=== PATIENT | male | born 1950 | race Caucasian/White ===

== ENCOUNTER → 2016-12-07 | Outpatient (CLI) | payer MEDICARE, OTHER ==
[2016-12-07 08:23] LABS: ALT 22 U/L (21-72); AST 16 U/L (17-59); Alkaline Phosphatase 70 U/L (38-126); Anion Gap 9 mmol/L; Blood Urea Nitrogen 15 mg/dL (9-20); Calcium 9.3 mg/dL (8.4-10.2); Carbon Dioxide 31 mmol/L (22-30); Chloride 101 mmol/L (98-107); Cholesterol 160 mg/dL (<200); Glucose 100 mg/dL (74-99); HDL Cholesterol 44 mg/dL (40-60); Non-African American GFR(MDRD) >60 (>60 ml/min/1.73 sqM); Potassium 4.8 mmol/L (3.5-5.1); Sodium 141 mmol/L (137-145); Total Bilirubin 0.6 mg/dL (0.2-1.3); Total Protein 6.9 g/dL (6.3-8.2); Triglycerides 87 mg/dL (<150)
== END | disposition home or self-care (01) ==
LOC: LABWHC1 07:49
PROVIDERS: ATTEND Internal Medicine Interventional Cardiology
DX: E78.2 Mixed hyperlipidemia (principal)
CPT/HCPCS: 36415; 80053; 80061

== ENCOUNTER 2017-02-20 09:02 | Inpatient (IN) | payer MEDICARE, OTHER ==
[2017-02-20] MEDS ORDERED: DEXAMETHASONE SOD PHOSPHATE 10 MG/ML 1 ML VIAL IV STA (09:08)
[2017-02-20 09:32] LABS: Basophils # (A) 0.1 k/uL (0-0.2); Basophils % (A) 1 %; CH 29.1; CHCM 34.5; Eosinophils # (A) 0.3 k/uL (0-0.7); Eosinophils % (A) 4 %; HDW 2.67; HGB 15.9 gm/dL (13.0-17.5); Luc # (Auto) 0.15; Luc % (Auto) 2; Lymphocytes % (A) 16 %; MCH 29.2 pg (25.0-35.0); MCHC 34.6 g/dL (31.0-37.0); MCV 84.5 fL (80.0-100.0); Mean Platelet Volume 7.1; Monocytes # (A) 0.5 k/uL (0-1.0); Monocytes % (A) 8 %; Neutrophils # (A) 4.4 k/uL (1.3-7.7); Neutrophils % (A) 69 %; RBC 5.44 m/uL (4.30-5.90); RDW 13.4 % (11.5-15.5); WBC 6.4 k/uL (3.8-10.6); WBC (Perox) 5.88
[2017-02-20 09:42] LABS: Partial Thromboplastin Time 23.2 sec (22.0-30.0); Prothrombin Time 10.6 sec (9.0-12.0)
[2017-02-20 09:45] LABS: ALT 29 U/L (21-72); AST 17 U/L (17-59); Alkaline Phosphatase 76 U/L (38-126); Anion Gap 9 mmol/L; Blood Urea Nitrogen 10 mg/dL (9-20); Calcium 8.7 mg/dL (8.4-10.2); Carbon Dioxide 24 mmol/L (22-30); Chloride 104 mmol/L (98-107); Glucose 103 mg/dL (74-99); Magnesium 1.7 mg/dL (1.6-2.3); Non-African American GFR(MDRD) >60 (>60 ml/min/1.73 sqM); Potassium 4.3 mmol/L (3.5-5.1); Sodium 137 mmol/L (137-145); Total Bilirubin 0.5 mg/dL (0.2-1.3); Total Protein 6.6 g/dL (6.3-8.2)
[2017-02-20 09:55] LABS: Creatine Kinase 89 U/L (55-170)
--- NOTE | 2017-02-20 09:55 | ED ---
General Adult HPI - General Stated complaint: Diff Breathing Time Seen by Provider: 02/20/17 09:07 Source: patient, EMS, RN notes reviewed - History of Present Illness Initial comments: 66-year-old male history of COPD, CAD, abdominal aortic aneurysm status post repair presents with episode of dyspnea. Patient does take breathing treatments at home every 4-6 hours. He had not taken his morning nebulized albuterol. The time of EMS arrival patient was diaphoretic, complaining of nausea and lightheadedness. Denied chest pain at that time. Patient was given nebulized albuterol and at the time of his arrival was feeling much better. No diaphoresis. No chest pain. Breathing had improved. Patient denies fever or chills. Cough is at baseline. No abdominal pain. No vomiting or diarrhea. Nausea has resolved. - Related Data Home Medications Medication Instructions Recorded Confirmed Albuterol Inhaler [Ventolin Hfa 2 puff INHALATION RT-Q4H PRN 03/02/16 02/20/17 Inhaler] Aspirin 81 mg PO DAILY 03/02/16 02/20/17 Atorvastatin [Lipitor] 40 mg PO HS 03/02/16 02/20/17 Budesonide-Formot 160-4.5 Mcg 2 puff INHALATION RT-DAILY 03/02/16 02/20/17 [Symbicort 160-4.5 Mcg Inhaler] Ipratropium-Albuterol Nebulize 3 ml INHALATION RT-QID PRN 02/20/17 02/20/17 [Duoneb 0.5 mg-3 mg/3 ml Soln] Lopressor (Unknown Dose) 1 tab PO BID 02/20/17 02/20/17 Allergies Allergy/AdvReac Type Severity Reaction Status Date / Time Penicillins Allergy Rash/Hives Verified 02/20/17 09:35 Review of Systems ROS Statement: Those systems with pertinent positive or pertinent negative responses have been documented in the HPI. ROS Other: All systems not noted in ROS Statement are negative. Past Medical History Past Medical History: Asthma, COPD, Hypertension, Renal Disease Additional Past Medical History / Comment(s): Since March 2015, patient has had generalized body rash, intermittent facial and bilateral leg swelling, which is itchy and painful (has caused insomnia). Patient states Dr. Goins believes it to be an auto-immune problem. Other HX: kidney stones. 5.1cm aortic aneurysm, L eardrum hole with drainage at times. History of Any Multi-Drug Resistant Organisms: None Reported Past Surgical History: Appendectomy, Ear Surgery, Heart Catheterization, Hernia Repair Additional Past Surgical History / Comment(s): Facial reconstructive surgery. L ear surgery. Umbilical hernia. Colonoscopy-benign polypectomy. Past Anesthesia/Blood Transfusion Reactions: No Reported Reaction Additional Past Anesthesia/Blood Transfusion Reaction / Comment(s): Pt has never recieved blood. Past Psychological History: No Psychological Hx Reported Additional Psychological History / Comment(s): Pt resides with his spouse. He is normally independent. He has a nebulizer at home. He drives. Smoking Status: Current every day smoker Past Alcohol Use History: Occasional Additional Past Alcohol Use History / Comment(s): Pt states he is a ppd smoker and started at age 11 yrs. Past Drug Use History: None Reported - Past Family History Father Family Medical History: Myocardial Infarction ([place]) Additional Family Medical History / Comment(s): Father at age 75 yrs of a [place] Mother Family Medical History: Cancer Additional Family Medical History / Comment(s): Mother of metastatic cancer (unknown primary) at age 42 yrs. General Exam Limitations: no limitations General appearance: alert, in no apparent distress Head exam: Present: atraumatic, normocephalic Eye exam: Present: normal appearance, PERRL ENT exam: Present: mucous membranes dry Neck exam: Present: normal inspection. Absent: tenderness, meningismus Respiratory exam: Present: decreased breath sounds, prolonged expiratory Cardiovascular Exam: Present: regular rate, normal rhythm GI/Abdominal exam: Present: soft. Absent: distended, tenderness Extremities exam: Present: normal inspection, normal capillary refill, other ( DP pulses 2+ bilaterally). Absent: pedal edema Back exam: Present: normal inspection, full ROM Neurological exam: Present: alert, oriented X3. Absent: motor sensory deficit Psychiatric exam: Present: normal affect, normal mood Skin exam: Present: warm, dry, intact. Absent: cyanosis, diaphoretic Course Vital Signs 02/20/17 02/20/17 02/20/17 09:13 09:44 11:08 Temperature 97.0 F L Pulse Rate 69 72 Respiratory 18 18 Rate Blood Pressure 157/90 137/82 O2 Sat by Pulse 94 L 92 L Oximetry - Reevaluation(s) Reevaluation #1: 02/20/17 11:12 On examination after nebulized albuterol and Atrovent patient has diminished breath sounds bilaterally with an expiratory wheeze. Pulse ox 90% on 3 L EKG Findings - EKG Comments: EKG Findings:: EKG shows normal sinus rhythm, prolonged QT, ventricular rate of 62, [place] 148, QRS duration 86, QTC 481 which is prolonged no signs of ischemia Medical Decision Making - Medical Decision Making 66-year-old male history COPD presents with dyspnea, and cough. Patient has minimal air entry on initial evaluation. This improves with albuterol and Atrovent. Patient is approximately 90% on 3 L after treatment. He is given steroids. Will be admitted for further treatment and COPD. Chest x-ray shows no focal pneumonia. Diagnosis: COPD with hypoxia - Lab Data Result diagrams: 02/20/17 09:21 02/20/17 09:21 Lab Results 02/20/17 02/20/17 02/20/17 Range/Units 09:21 09:21 09:21 WBC 6.4 (3.8-10.6) k/uL RBC 5.44 (4.30-5.90) m/uL Hgb 15.9 (13.0-17.5) gm/dL Hct 46.0 (39.0-53.0) % MCV 84.5 (80.0-100.0) fL MCH 29.2 (25.0-35.0) pg MCHC 34.6 (31.0-37.0) g/dL RDW 13.4 (11.5-15.5) % Plt Count 232 (150-450) k/uL Neutrophils % 69 % Lymphocytes % 16 % Monocytes % 8 % Eosinophils % 4 % Basophils % 1 % Neutrophils # 4.4 (1.3-7.7) k/uL Lymphocytes # 1.0 (1.0-4.8) k/uL Monocytes # 0.5 (0-1.0) k/uL Eosinophils # 0.3 (0-0.7) k/uL Basophils # 0.1 (0-0.2) k/uL PT (9.0-12.0) sec INR (<1.2) APTT (22.0-30.0) sec Sodium 137 (137-145) mmol/L Potassium 4.3 (3.5-5.1) mmol/L Chloride 104 (98-107) mmol/L Carbon Dioxide 24 (22-30) mmol/L Anion Gap 9 mmol/L BUN 10 (9-20) mg/dL Creatinine 0.85 (0.66-1.25) mg/dL Est GFR (MDRD) Af Amer >60 (>60 ml/min/1.73 sqM) Est GFR (MDRD) Non-Af >60 (>60 ml/min/1.73 sqM) Glucose 103 H (74-99) mg/dL Calcium 8.7 (8.4-10.2) mg/dL Magnesium 1.7 (1.6-2.3) mg/dL Total Bilirubin 0.5 (0.2-1.3) mg/dL AST 17 (17-59) U/L ALT 29 (21-72) U/L Alkaline Phosphatase 76 (38-126) U/L Total Creatine Kinase 89 (55-170) U/L CK-MB (CK-2) 1.3 (0.0-2.4) ng/mL CK-MB (CK-2) Rel Index 1.5 Troponin I <0.012 (0.000-0.034) ng/mL NT-Pro-B Natriuret Pep pg/mL Total Protein 6.6 (6.3-8.2) g/dL Albumin 3.9 (3.5-5.0) g/dL 02/20/17 02/20/17 Range/Units 09:21 09:21 WBC (3.8-10.6) k/uL RBC (4.30-5.90) m/uL Hgb (13.0-17.5) gm/dL Hct (39.0-53.0) % MCV (80.0-100.0) fL MCH (25.0-35.0) pg MCHC (31.0-37.0) g/dL RDW (11.5-15.5) % Plt Count (150-450) k/uL Neutrophils % % Lymphocytes % % Monocytes % % Eosinophils % % Basophils % % Neutrophils # (1.3-7.7) k/uL Lymphocytes # (1.0-4.8) k/uL Monocytes # (0-1.0) k/uL Eosinophils # (0-0.7) k/uL Basophils # (0-0.2) k/uL PT 10.6 (9.0-12.0) sec INR 1.0 (<1.2) APTT 23.2 (22.0-30.0) sec Sodium (137-145) mmol/L Potassium (3.5-5.1) mmol/L Chloride (98-107) mmol/L Carbon Dioxide (22-30) mmol/L Anion Gap mmol/L BUN (9-20) mg/dL Creatinine (0.66-1.25) mg/dL Est GFR (MDRD) Af Amer (>60 ml/min/1.73 sqM) Est GFR (MDRD) Non-Af (>60 ml/min/1.73 sqM) Glucose (74-99) mg/dL Calcium (8.4-10.2) mg/dL Magnesium (1.6-2.3) mg/dL Total Bilirubin (0.2-1.3) mg/dL AST (17-59) U/L ALT (21-72) U/L Alkaline Phosphatase (38-126) U/L Total Creatine Kinase (55-170) U/L CK-MB (CK-2) (0.0-2.4) ng/mL CK-MB (CK-2) Rel Index Troponin I (0.000-0.034) ng/mL NT-Pro-B Natriuret Pep 519 pg/mL Total Protein (6.3-8.2) g/dL Albumin (3.5-5.0) g/dL Disposition Clinical Impression: Acute exacerbation of chronic obstructive airways disease Disposition: ADMITTED IP TO THIS HOSP Condition: Stable Referrals: Ashok Rodriguez MD [Primary Care Provider] - 1-2 days Time of Disposition: 11:14 Decision to Admit Reason: Admit from EC Decision Date: 02/20/17 Decision Time: 11:14
[2017-02-20 10:08] LABS: Creatine Kinase MB 1.3 ng/mL (0.0-2.4); Troponin I <0.012 ng/mL (0.000-0.034)
--- NOTE | 2017-02-20 10:11 | XR ---
EXAMINATION TYPE: XR chest 2V DATE OF EXAM: 02/20/2017 COMPARISON: 04/08/2016 HISTORY: Shortness of breath TECHNIQUE: Frontal and lateral views of the chest are obtained. FINDINGS: Scattered senescent parenchymal changes noted. Hyperinflation compatible with COPD. No evidence for infiltrate. No evidence for atelectasis. Heart size is stable. Mediastinal structures are stable and grossly unremarkable. No evidence for hilar prominence. Degenerative changes dorsal spine. IMPRESSION: 1. No evidence for acute pulmonary disease.
[2017-02-20] MEDS ORDERED: IPRATROPIUM-ALBUTEROL 3 ML NEB INHALATION PRN (11:15)
[2017-02-20] MEDS ORDERED: LEVOFLOXACIN 500 MG TAB PO SCH (12:00)
[2017-02-20] MEDS ORDERED: ASPIRIN 325 MG TAB PO SCH (12:15)
[2017-02-20 13:54] LABS: Appearance,Urine Clear (Clear); Bilirubin,Urine Negative (Negative); Glucose,Urine (UA) Negative (Negative); Ketones,Urine Negative (Negative); Leukocyte Esterase,Urine Negative (Negative); Nitrite,Urine Negative (Negative); Protein,Urine Negative (Negative); Specific Gravity,Urine 1.008 (1.001-1.035); UA Billing (MACRO vs. MICRO) CHEM; Urobilinogen,Urine <2.0 mg/dL (<2.0)
--- NOTE | 2017-02-20 15:23 | P.CRDCN ---
History of Present Illness Consult date: 02/20/17 History of present illness: This is a 66-year-old pleasant male. Past medical history significant for abdominal aortic aneurysm status post repair, COPD, essential hypertension, dyslipidemia, CAD mild triple vessel disease that is being managed medically. The patient follows regularly with Dr. Jack as an outpatient. He was last seen in the office in December 2016. Patient presents with complaints of dizziness, diaphoresis, nausea and shortness of breath. He states last night he became acutely dizzy and diaphoretic he had distant from the fan this lasted for approximately half an hour. The symptoms went away on its own with no specific alleviating factors. He denies any associated chest pain, arm pain, neck pain or back pain. The symptoms have not recurred since he's been in the hospital. He was recently started on albuterol and amlodipine. EKG done shows sinus mechanism with PVC's, bigeminy with no T-wave abnormality. When compared with old EKG this appears new. Troponins are normal x 1. Chest x-ray showed negative for any acute cardiopulmonary. Most recent echo dated 03/02/2016 indicates low-normal EF 50-55%. Review of Systems Extensive review of systems performed, negative except mentioned in HPI. Past Medical History Past Medical History: Asthma, COPD, Hyperlipidemia, Hypertension, Renal Disease Additional Past Medical History / Comment(s): Since March 2015, patient has had intermittent generalized body rash, intermittent facial and bilateral leg swelling, which is itchy and painful (has caused insomnia). Patient states Dr. Goins believes it to be an auto-immune problem. Other HX: kidney stones. 5.1cm aortic aneurysm with repair, L eardrum hole with drainage at times, bilateral leg cramps at times. History of Any Multi-Drug Resistant Organisms: None Reported Past Surgical History: Appendectomy, Ear Surgery, Heart Catheterization, Hernia Repair Additional Past Surgical History / Comment(s): 06/2016 AAA repair. Facial reconstructive surgery. L ear surgery. Umbilical hernia. Colonoscopy-benign polypectomy. R cataract removed with lens. L eye had glass removed and lens placed. Past Anesthesia/Blood Transfusion Reactions: No Reported Reaction Additional Past Anesthesia/Blood Transfusion Reaction / Comment(s): Pt has never recieved blood. Smoking Status: Current every day smoker - Past Family History Father Family Medical History: Myocardial Infarction ([place]) Additional Family Medical History / Comment(s): Father at age 75 yrs of a [place] Mother Family Medical History: Cancer Additional Family Medical History / Comment(s): Mother of metastatic cancer (unknown primary) at age 42 yrs. Medications and Allergies Home Medications Medication Instructions Recorded Confirmed Type Albuterol Inhaler [Ventolin Hfa 2 puff INHALATION RT-Q4H PRN 03/02/16 02/20/17 History Inhaler] Aspirin 81 mg PO DAILY 03/02/16 02/20/17 History Atorvastatin [Lipitor] 40 mg PO HS 03/02/16 02/20/17 History Budesonide-Formot 160-4.5 Mcg 2 puff INHALATION RT-DAILY 03/02/16 02/20/17 History [Symbicort 160-4.5 Mcg Inhaler] Ipratropium-Albuterol Nebulize 3 ml INHALATION RT-QID PRN 02/20/17 02/20/17 History [Duoneb 0.5 mg-3 mg/3 ml Soln] Lopressor (Unknown Dose) 1 tab PO BID 02/20/17 02/20/17 History Allergies Allergy/AdvReac Type Severity Reaction Status Date / Time Penicillins Allergy Rash/Hives Verified 02/20/17 09:35 Physical Exam Vitals: Vital Signs Temp Pulse Pulse Resp BP BP Pulse Ox 02/20/17 13:15 97.0 F L 74 18 118/91 93 L 02/20/17 12:04 96.8 F L 72 16 130/62 93 L 02/20/17 11:08 72 18 137/82 92 L 02/20/17 09:44 69 18 157/90 94 L 02/20/17 09:13 97.0 F L Intake and Output 02/19/17 02/20/17 02/20/17 22:59 06:59 14:59 Intake Total 118 Balance 118 Intake: Oral 118 Other: # Voids 3 Weight 92.986 kg Patient Weight 02/21/17 06:59 Weight 92.986 kg GENERAL: This is a 66-year-old male in no apparent distress at the time of my examination. HEENT: Head is atraumatic, normocephalic. Pupils are equal, round. Sclerae anicteric. Conjunctivae are clear. Mucous membranes of the mouth are moist. Neck is supple. There is no jugular venous distention. No carotid bruit is heard. LUNGS: Clear to auscultation no wheezes, rales or rhonchi. No chest wall tenderness is noted on palpation or with deep breathing. HEART: Regular rate and rhythm without murmurs, rubs or gallops. S1 and S2 heard. Muffled. ABDOMEN: Soft, nontender. Bowel sounds are heard. No organomegaly noted. EXTREMITIES: 2+ peripheral pulses with no evidence of peripheral edema and no calf tenderness noted. NEUROLOGIC: Patient is awake, alert and oriented x3. Results 02/20/17 09:21 02/20/17 09:21 Cardiac Enzymes 02/20/17 02/20/17 Range/Units 09:21 09:21 AST 17 (17-59) U/L CK-MB (CK-2) 1.3 (0.0-2.4) ng/mL Troponin I <0.012 (0.000-0.034) ng/mL Coagulation 02/20/17 Range/Units 09:21 PT 10.6 (9.0-12.0) sec APTT 23.2 (22.0-30.0) sec CBC 02/20/17 Range/Units 09:21 WBC 6.4 (3.8-10.6) k/uL RBC 5.44 (4.30-5.90) m/uL Hgb 15.9 (13.0-17.5) gm/dL Hct 46.0 (39.0-53.0) % Plt Count 232 (150-450) k/uL Comprehensive Metabolic Panel 02/20/17 Range/Units 09:21 Sodium 137 (137-145) mmol/L Potassium 4.3 (3.5-5.1) mmol/L Chloride 104 (98-107) mmol/L Carbon Dioxide 24 (22-30) mmol/L BUN 10 (9-20) mg/dL Creatinine 0.85 (0.66-1.25) mg/dL Glucose 103 H (74-99) mg/dL Calcium 8.7 (8.4-10.2) mg/dL AST 17 (17-59) U/L ALT 29 (21-72) U/L Alkaline Phosphatase 76 (38-126) U/L Total Protein 6.6 (6.3-8.2) g/dL Albumin 3.9 (3.5-5.0) g/dL Current Medications Generic Name Dose Route Start Last Admin Trade Name Freq PRN Reason Stop Dose Admin Albuterol/Ipratropium 3 ml 02/20/17 11:15 Duoneb 0.5 Mg-3 Mg/3 Ml Soln INHALATION RT-Q4H PRN Shortness Of Breath Or Wheezing Aspirin 325 mg 02/20/17 12:15 02/20/17 12:24 Aspirin PO 325 mg DAILY RAF Administration Levofloxacin 500 mg 02/20/17 12:00 02/20/17 12:25 Levaquin PO 02/27/17 12:01 500 mg Q24H RAF Administration Prednisone 40 mg 02/21/17 09:00 PO DAILY RAF Intake and Output 02/19/17 02/20/17 02/20/17 22:59 06:59 14:59 Intake Total 118 Balance 118 Intake: Oral 118 Other: # Voids 3 Weight 92.986 kg Patient Weight 02/21/17 06:59 Weight 92.986 kg 02/20/17 09:21 02/20/17 09:21 Assessment and Plan Plan: ASSESSMENT 1. Chronic stable CAD 2. Bigeminal PVCs 3. Chronic tobacco abuse 4. Abdominal aortic aneurysm status post repair 5. Dyslipidemia PLAN Continue with telemetry monitoring to assess for any new arrhythmia. Check serial troponins and EKG to rule out acute coronary event. Obtain 2D echocardiogram to assess LV function and cardiac structure. Further recommendations will be based upon clinical course. Thank you kindly for this consultation. Nurse Practitioner note has been reviewed, I agree with a documented findings and plan of care. Patient was seen and examined.
[2017-02-20] MEDS: amLODIPine 5 MG TAB PO SCH (16:00)
[2017-02-20 16:20] LABS: Creatine Kinase 78 U/L (55-170)
[2017-02-20 16:33] LABS: Creatine Kinase MB 1.3 ng/mL (0.0-2.4); Troponin I <0.012 ng/mL (0.000-0.034)
[2017-02-20] MEDS ORDERED: NITROGLYCERIN SL TABS 0.4 MG TAB SUBLINGUAL ONE (18:13)
[2017-02-20] MEDS ORDERED: NICOTINE POLACRILEX 2 MG GUM BUCCAL PRN (19:03)
[2017-02-20] MEDS ORDERED: RX INFO: IV CONTRAST WAS GIVEN 1 EACH MISC MISCELLANE PRN (19:04)
[2017-02-20] MEDS: BUDESONIDE 1 MG/2 ML NEBU INHALATION SCH (20:03)
[2017-02-20] MEDS: IPRATROPIUM-ALBUTEROL 3 ML NEB INHALATION SCH ×2 (20:03)
[2017-02-20] MEDS: methylPREDNISolone SOD SUCCI 40 MG/ML 1 ML VIAL IV SCH (20:23)
[2017-02-20] MEDS: NICOTINE 7MG/24HR PATCH TRANSDERM SCH (20:23)
[2017-02-20] MEDS: ATORVASTATIN 80 MG TAB PO SCH (20:23)
--- NOTE | 2017-02-20 20:36 | CT ---
EXAMINATION TYPE: CT angio chest DATE OF EXAM: 02/20/2017 7:53 PM COMPARISON: 03/02/2016 CT HISTORY: Shortness of breath CT DLP: 434.8 mGycm. Automated exposure control for dose reduction was used. CONTRAST: CTA scan of the thorax is performed with IV Contrast, patient injected with 100 mL of Omnip aque 350, pulmonary embolism protocol. . FINDINGS: AIRWAYS/LUNGS: The lungs are grossly clear, there is no concerning parenchymal mass or nodule identif ied. The tracheobronchial tree is patent. MEDIASTINUM/PLEURA: There is satisfactory enhancement of the pulmonary artery and its branches, there is no CT evidence for pulmonary embolism. The ascending aortic caliber is top normal in dimension. R elatively small hiatal hernia noted. There are no greater than 1 cm hilar or mediastinal lymph nodes. There is no cardiomegaly, but there are prominent coronary calcifications. No pericardial effusion i s seen. There is no pleural effusion or pneumothorax seen. OTHER: The previously seen renal and splenic findings are redemonstrated without interval change. IMPRESSION: 1. NEGATIVE FOR PULMONARY EMBOLISM; NO ACUTE PROCESS. 2. PROMINENT CORONARY CALCIFICATIONS NOTED.
[2017-02-20] MEDS ORDERED: ATORVASTATIN 40 MG TAB PO SCH (21:00)
--- NOTE | 2017-02-20 21:34 | HP ---
HISTORY AND PHYSICAL DATE OF ADMISSION: 02/20/2017 PRESENTING COMPLAINT: Short of breath. HISTORY OF PRESENTING COMPLAINT: This is a 66-year-old patient of Dr. Rodriguez. His chronic stable medical conditions include leg cramps, hypertension, heart disease, abdominal aortic repair. This patient is a smoker. The patient in the early hours of this morning was going to the bathroom and suddenly became dizzy, started pouring sweat, became short of breath. He could not catch his breath. He denied any obvious edema. No swelling of the legs. Admitted for the same. The patient may have had some slight wheezing. The patient did have a cardiac catheterization in May [address] Jack and was found to have minimal triple-vessel disease. The patient in the meantime has continued to smoke. He had another episode this evening of perspiring and feeling tight in the chest. REVIEW OF SYSTEMS: CONSTITUTIONAL: Tired. HEENT: None. RESPIRATORY: As above. CARDIOVASCULAR: As above. GASTROINTESTINAL: Some heartburn. GENITOURINARY: None. MUSCULOSKELETAL: None. DERMATOLOGICAL: None. HEMATOLOGICAL: None. LYMPHATICS: None. PSYCHIATRY: None. NEUROLOGICAL: None. PAST HISTORY: 1. COPD. 2. Abdominal aortic aneurysm, 5.1 cm, repaired. 3. Hypertensive heart disease. 4. Leg cramps. 5. Episodes of swelling of the hands with some rash, felt to be autoimmune by Dr. Goins. PAST SURGICAL HISTORY: 1. Appendectomy. 2. Ear surgery. 3. Cardiac catheterization. 4. Hernia repair. 5. AAA repair. 6. Facial reconstructive surgery. 7. Left ear surgery. 8. Umbilical hernia repair. 9. Colonoscopy with polypectomy. 10.Right cataract removed. SOCIAL HISTORY: . Has been smoking over 55 years, now down to 5 cigarettes a day. 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 Alcohol occasionally. FAMILY HISTORY: Father of a heart attack at age of 75. HOME MEDICATIONS: 1. Lopressor 1 tablet p.o. b.i.d. 2. DuoNeb q.i.d. p.r.n. 3. Ventolin HFA 2 puffs q.4 p.r.n. 4. Symbicort 160/4.5 two puffs daily. 5. Lipitor 40 mg at bedtime. ALLERGIES: PENICILLIN. PHYSICAL EXAMINATION: Temperature 96.8, pulse 80, respiratory rate 18, blood pressure 142/86, pulse ox 89% on 2 L. GENERAL APPEARANCE: Average build. Sitting up. Tired-appearing. EYES: Pupils equal. Conjunctivae normal. HEENT: Oral cavity normal. NECK: JVD not raised. Mass not palpable. RESPIRATORY: Effort increased . LUNGS: Diminished breath sounds. Prolonged expiration and wheezing. CARDIOVASCULAR: First and second sounds normal. No edema. ABDOMEN: Soft, nontender. Liver and spleen not palpable. LYMPHATIC: No lymph node palpable in neck or axillae. PSYCHIATRY: Alert and oriented x3. Mood and affect normal. NEUROLOGICAL: Pupils equal. Cranial nerves grossly intact. Power and sensation grossly intact. INVESTIGATIONS: White count 6.4, hemoglobin 15.9, potassium 4.3. BUN and creatinine are normal. Troponin x2 negative. ProBNP is 519. EKG shows some prolonged QT interval. Chest x-ray shows nil acute. ASSESSMENT: 1. Episode of acute shortness of breath with bouts of perspiration. Need still to rule out a cardiac cause. It well could be angina manifestation in a patient whose risk factors include smoking, though patient did have a cardiac catheterization about 2 years ago that showed minimal disease. 2. Acute chronic obstructive pulmonary disease exacerbation in a current smoker. 3. Chronic nicotine dependence. Patient is a smoker. 4. Hypertensive heart disease. 5. PLAN: Patient is started on nebulized bronchodilators, IV steroids, nebulized steroids, given a nicotine patch. Cardiology was consulted. Serial cardiac enzymes are in place. Will order a 2-D echocardiogram to look for any wall motion abnormality. If troponins are negative, will need at least a stress test. Care was discussed with the patient. MMODL / IJN: [id number] /
[2017-02-20 22:22] LABS: Creatine Kinase 68 U/L (55-170)
[2017-02-20 22:35] LABS: Creatine Kinase MB 1.1 ng/mL (0.0-2.4); Troponin I <0.012 ng/mL (0.000-0.034)
[2017-02-21] MEDS: IPRATROPIUM-ALBUTEROL 3 ML NEB INHALATION SCH ×5 (00:04→19:19)
[2017-02-21] MEDS: methylPREDNISolone SOD SUCCI 40 MG/ML 1 ML VIAL IV SCH ×3 (00:28→17:03)
[2017-02-21 07:21] LABS: Glucose,Whole Blood 148 mg/dL (75-99)
[2017-02-21] MEDS: BUDESONIDE 1 MG/2 ML NEBU INHALATION SCH ×2 (07:59→19:19)
[2017-02-21] MEDS ORDERED: SYMBICORT 160-4.5 MCG INHALER INHALATION SCH (08:00)
[2017-02-21] MEDS ORDERED: LEVOFLOXACIN 500 MG TAB PO SCH (09:00)
[2017-02-21] MEDS ORDERED: predniSONE 20 MG TAB PO SCH (09:00)
[2017-02-21] MEDS: NICOTINE 7MG/24HR PATCH TRANSDERM SCH (09:11)
[2017-02-21] MEDS: ENOXAPARIN 40 MG/0.4 ML SYRINGE SQ SCH (09:11)
[2017-02-21] MEDS: ASPIRIN 81 MG PO SCH (09:11)
[2017-02-21] MEDS: amLODIPine 5 MG TAB PO SCH (09:11)
[2017-02-21] MEDS ORDERED: METOPROLOL SUCCINATE (ER) 50 MG TAB.ER.24H PO SCH (09:15)
--- NOTE | 2017-02-21 09:16 | P.CRDCN ---
History of Present Illness History of present illness: Patient presenting with feeling of dizziness and palpitations. Twelve-lead ECG showed left sided PVCs and ventricular bigeminal pattern. So far we have not documented any nonsustained ventricular tachycardia. Known coronary artery disease but mild triple vessel disease at that time in 2014 mild impaired LV systolic function and history of abdominal aortic aneurysm. He's had abdominal stenting. On this visit chest CT does not show any pulmonary embolism coronary calcifications noted consistent with his history of coronary artery disease Twelve-lead ECG shows sinus rhythm with right bundle PVCs that are upright in all precordial leads No documented any nonsustained or sustained ventricular tachycardia Vitals are stable blood pressure 129/60 mmHg pulse rate is normal afebrile Breath sounds are reduced bilaterally Normal white count, normal troponins 3 normal BNP, normal electrolytes Suggest TSH level 2-D echo and Doppler study to assess cardiac structure and function Start metoprolol and maximize Consider exercise stress testing to look for exercise induced arrhythmias I will start metoprolol succinate 50 mrem by mouth daily starting today Outpatient event monitoring Past Medical History Past Medical History: Asthma, COPD, Hyperlipidemia, Hypertension, Renal Disease Additional Past Medical History / Comment(s): Since March 2015, patient has had intermittent generalized body rash, intermittent facial and bilateral leg swelling, which is itchy and painful (has caused insomnia). Patient states Dr. Goins believes it to be an auto-immune problem. Other HX: kidney stones. 5.1cm aortic aneurysm with repair, L eardrum hole with drainage at times, bilateral leg cramps at times. History of Any Multi-Drug Resistant Organisms: None Reported Past Surgical History: Appendectomy, Ear Surgery, Heart Catheterization, Hernia Repair Additional Past Surgical History / Comment(s): 06/2016 AAA repair. Facial reconstructive surgery. L ear surgery. Umbilical hernia. Colonoscopy-benign polypectomy. R cataract removed with lens. L eye had glass removed and lens placed. Past Anesthesia/Blood Transfusion Reactions: No Reported Reaction Additional Past Anesthesia/Blood Transfusion Reaction / Comment(s): Pt has never recieved blood. Smoking Status: Current every day smoker - Past Family History Father Family Medical History: Myocardial Infarction (WA) Additional Family Medical History / Comment(s): Father at age 75 yrs of a [place] Mother Family Medical History: Cancer Additional Family Medical History / Comment(s): Mother of metastatic cancer (unknown primary) at age 42 yrs. Medications and Allergies Home Medications Medication Instructions Recorded Confirmed Type Albuterol Inhaler [Ventolin Hfa 2 puff INHALATION RT-Q4H PRN 03/02/16 02/20/17 History Inhaler] Aspirin 81 mg PO DAILY 03/02/16 02/20/17 History Atorvastatin [Lipitor] 40 mg PO HS 03/02/16 02/20/17 History Budesonide-Formot 160-4.5 Mcg 2 puff INHALATION RT-DAILY 03/02/16 02/20/17 History [Symbicort 160-4.5 Mcg Inhaler] Ipratropium-Albuterol Nebulize 3 ml INHALATION RT-QID PRN 02/20/17 02/20/17 History [Duoneb 0.5 mg-3 mg/3 ml Soln] Lopressor (Unknown Dose) 1 tab PO BID 02/20/17 02/20/17 History Allergies Allergy/AdvReac Type Severity Reaction Status Date / Time Penicillins Allergy Rash/Hives Verified 02/20/17 09:35 Physical Exam Vitals: Vital Signs Temp Pulse Pulse Resp BP BP BP 02/21/17 08:17 76 02/21/17 07:59 74 02/21/17 07:00 97.0 F L 65 16 129/68 02/20/17 22:23 97.9 F 90 20 123/69 02/20/17 20:26 83 02/20/17 20:04 83 02/20/17 18:20 97.0 F L 82 22 124/87 02/20/17 16:08 77 02/20/17 15:58 77 02/20/17 14:45 02/20/17 14:40 96.8 F L 80 18 142/86 02/20/17 13:15 97.0 F L 74 18 118/91 02/20/17 12:04 96.8 F L 72 16 130/62 02/20/17 11:08 72 18 137/82 02/20/17 09:44 69 18 157/90 Pulse Ox 02/21/17 08:17 02/21/17 07:59 02/21/17 07:00 92 L 02/20/17 22:23 90 L 02/20/17 20:26 02/20/17 20:04 02/20/17 18:20 90 L 02/20/17 16:08 02/20/17 15:58 02/20/17 14:45 92 L 02/20/17 14:40 89 L 02/20/17 13:15 93 L 02/20/17 12:04 93 L 02/20/17 11:08 92 L 02/20/17 09:44 94 L Intake and Output 02/20/17 02/21/17 02/21/17 22:59 06:59 14:59 Intake Total 290 Balance 290 Intake: Oral 290 Other: # Voids 2 1 # Bowel Movements 0 Weight 89 kg Results 02/20/17 09:21 02/20/17 09:21 Cardiac Enzymes 02/20/17 02/20/17 02/20/17 Range/Units 09:21 09:21 15:56 AST 17 (17-59) U/L CK-MB (CK-2) 1.3 1.3 (0.0-2.4) ng/mL Troponin I <0.012 <0.012 (0.000-0.034) ng/mL 02/20/17 Range/Units 21:50 AST (17-59) U/L CK-MB (CK-2) 1.1 (0.0-2.4) ng/mL Troponin I <0.012 (0.000-0.034) ng/mL Coagulation 02/20/17 Range/Units 09:21 PT 10.6 (9.0-12.0) sec APTT 23.2 (22.0-30.0) sec CBC 02/20/17 Range/Units 09:21 WBC 6.4 (3.8-10.6) k/uL RBC 5.44 (4.30-5.90) m/uL Hgb 15.9 (13.0-17.5) gm/dL Hct 46.0 (39.0-53.0) % Plt Count 232 (150-450) k/uL Comprehensive Metabolic Panel 02/20/17 Range/Units 09:21 Sodium 137 (137-145) mmol/L Potassium 4.3 (3.5-5.1) mmol/L Chloride 104 (98-107) mmol/L Carbon Dioxide 24 (22-30) mmol/L BUN 10 (9-20) mg/dL Creatinine 0.85 (0.66-1.25) mg/dL Glucose 103 H (74-99) mg/dL Calcium 8.7 (8.4-10.2) mg/dL AST 17 (17-59) U/L ALT 29 (21-72) U/L Alkaline Phosphatase 76 (38-126) U/L Total Protein 6.6 (6.3-8.2) g/dL Albumin 3.9 (3.5-5.0) g/dL Current Medications Generic Name Dose Route Start Last Admin Trade Name Freq PRN Reason Stop Dose Admin Albuterol/Ipratropium 3 ml 02/20/17 11:15 02/20/17 15:55 Duoneb 0.5 Mg-3 Mg/3 Ml Soln INHALATION 3 ml RT-Q4H PRN Administration Shortness Of Breath Or Wheezing Albuterol/Ipratropium 3 ml 02/21/17 08:00 02/21/17 07:59 Duoneb 0.5 Mg-3 Mg/3 Ml Soln INHALATION 3 ml RT-QID RAF Administration Amlodipine Besylate 5 mg 02/20/17 15:30 02/21/17 09:11 Norvasc PO 5 mg DAILY RAF Administration Aspirin 81 mg 02/21/17 09:00 02/21/17 09:11 Aspirin PO 81 mg DAILY RAF Administration Atorvastatin Calcium 80 mg 02/20/17 21:00 02/20/17 20:23 Lipitor PO 80 mg HS RAF Administration Budesonide 1 mg 02/20/17 20:00 02/21/17 07:59 Pulmicort INHALATION 1 mg RT-BID RAF Administration Enoxaparin Sodium 40 mg 02/21/17 09:00 02/21/17 09:11 Lovenox SQ 40 mg DAILY RAF Administration Methylprednisolone Sodium Succinate 40 mg 02/20/17 19:00 02/21/17 09:11 Solu-Medrol IV 40 mg Q8HR RAF Administration Metoprolol Succinate 50 mg 02/21/17 09:15 Toprol Xl PO DAILY RAF Miscellaneous Information 1 each 02/20/17 19:04 Rx Info: Iv Contrast Was Given MISCELLANE 02/22/17 19:04 DAILY PRN Per Protocol Nicotine 1 patch 02/20/17 19:15 02/21/17 09:11 Habitrol 7mg/24hr Patch TRANSDERM 1 patch DAILY RAF Administration Nicotine Polacrilex 2 mg 02/20/17 19:03 Nicorette Gum BUCCAL Q4HR PRN Nicotine Cravings Intake and Output 02/20/17 02/21/17 02/21/17 22:59 06:59 14:59 Intake Total 290 Balance 290 Intake: Oral 290 Other: # Voids 2 1 # Bowel Movements 0 Weight 89 kg 02/20/17 09:21 02/20/17 09:21
[2017-02-21 09:21] LABS: Basophils % (A) 0 %; CH 29.2; CHCM 33.8; Eosinophils % (A) 0 %; HDW 2.53; HGB 16.3 gm/dL (13.0-17.5); Luc # (Auto) 0.04; Luc % (Auto) 0; Lymphocytes # (A) 0.7 k/uL (1.0-4.8); Lymphocytes % (A) 5 %; MCH 29.4 pg (25.0-35.0); MCHC 33.9 g/dL (31.0-37.0); MCV 86.7 fL (80.0-100.0); Mean Platelet Volume 7.3; Monocytes # (A) 0.4 k/uL (0-1.0); Monocytes % (A) 3 %; Neutrophils % (A) 91 %; RBC 5.54 m/uL (4.30-5.90); RDW 13.6 % (11.5-15.5); WBC 13.1 k/uL (3.8-10.6); WBC (Perox) 12.64
[2017-02-21 09:29] LABS: Anion Gap 9 mmol/L; Blood Urea Nitrogen 21 mg/dL (9-20); Calcium 9.2 mg/dL (8.4-10.2); Carbon Dioxide 24 mmol/L (22-30); Chloride 102 mmol/L (98-107); Glucose 220 mg/dL (74-99); Non-African American GFR(MDRD) >60 (>60 ml/min/1.73 sqM); Potassium 4.6 mmol/L (3.5-5.1); Sodium 135 mmol/L (137-145)
[2017-02-21 11:52] LABS: Glucose,Whole Blood 151 mg/dL (75-99)
--- NOTE | 2017-02-21 15:02 | P.PN ---
Progress Note - Text DATE OF SERVICE: 02/21/2017 PRESENTING COMPLAINT: Short of breath HISTORY OF PRESENT ILLNESS: 66-year-old patient who got up early in the morning to go to the bathroom and became suddenly dizzy started profusely sweating and became short of breath. Unable to catch his breath. History of cardiac catheterization in May [address] Jack, minimal triple-vessel disease. Continued to smoke. While being examined he had another episode of perspiring and feeling tight in the chest. INTERVAL HISTORY: 02/21/2017: Patient lying in bed appears comfortable, no further episodes of chest tightness or perspiring. Ambulatory in the room to and from the bathroom, tolerating his diet eating between 75-100% of his meals. Last BM prior to admission. REVIEW OF SYSTEMS: Done for constitutional ,cardiovascular, GI, pulmonary with relevant findings as above. CURRENT MEDICATIONS DuoNeb, Norvasc 5 mg by mouth daily, aspirin 81 mg by mouth daily, Lipitor 80 mg by mouth at bedtime, Solu-Medrol 40 mg IV every 8 hours, metoprolol 50 mg by mouth every 24 hours, nicotine patch. PHYSICAL EXAM VITAL SIGNS: Temperature 97.0, pulse 65, respiratory rate 16, blood pressure 129/68, oxygen saturation 92% on 3 L. GENERAL APPEARANCE: Lying in bed, not in distress. EYES: Pupils equal. Conjunctiva normal. NECK: JVD not raised. Mass not palpable. RESPIRATORY: Respiratory effort normal. Lungs diminished to auscultation. CARDIOVASCULAR: First and second sounds normal. No edema. ABDOMEN: Soft. Liver and spleen not palpable. No tenderness. No mass palpable. PSYCHIATRY: Alert and oriented x3. Mood and affect normal. INVESTIGATIONS: White blood cell count 13.1, sodium 135, potassium 4.6, BUN 21, creatinine 0.91 , Accu-Cheks noted. CTA chest: Negative for pulmonary embolism no acute process. ASSESSMENT: -Acute shortness of breath, rule out cardiac cause -Acute chronic obstructive pulmonary disease exacerbation in a current smoker. -Chronic nicotine dependence. Patient is a smoker. -Hypertensive heart disease. -Hyperthyroidism PLAN: Plan for 2-D echo and Doppler study metoprolol added and maximize medication therapy per cardiology, may need an exercise stress to rule out exercise- induced arrhythmia, outpatient event monitoring. Scars the plan of care with the patient the bedside he is in agreement. We'll continue to monitor closely. Discharge planning for the next 24-48 hours. RESOURCE COORDINATOR statement: Patient was seen and examined by nurse practitioner Dang Veliz and all elements of the case discussed with attending Dr. Fletcher
[2017-02-21 17:15] LABS: Glucose,Whole Blood 126 mg/dL (75-99)
[2017-02-21] MEDS: CALCIUM CARB-VIT D 500MG-200UN 1 EACH TAB PO SCH (20:35)
[2017-02-21] MEDS: ATORVASTATIN 80 MG TAB PO SCH (20:35)
[2017-02-21] MEDS: FAMOTIDINE 20 MG TAB PO SCH (20:35)
[2017-02-21 21:01] LABS: Glucose,Whole Blood 139 mg/dL (75-99)
[2017-02-22] MEDS: methylPREDNISolone SOD SUCCI 40 MG/ML 1 ML VIAL IV SCH ×3 (00:55→19:30)
[2017-02-22] MEDS ORDERED: METOPROLOL SUCCINATE (ER) 50 MG TAB.ER.24H PO SCH (06:00)
[2017-02-22 07:29] LABS: Glucose,Whole Blood 123 mg/dL (75-99)
[2017-02-22] MEDS: IPRATROPIUM-ALBUTEROL 3 ML NEB INHALATION SCH ×4 (08:24→19:39)
[2017-02-22] MEDS: BUDESONIDE 1 MG/2 ML NEBU INHALATION SCH ×2 (08:24→19:39)
[2017-02-22 09:15] LABS: Anion Gap 7 mmol/L; Blood Urea Nitrogen 36 mg/dL (9-20); Calcium 9.3 mg/dL (8.4-10.2); Carbon Dioxide 27 mmol/L (22-30); Chloride 103 mmol/L (98-107); Glucose 119 mg/dL (74-99); Non-African American GFR(MDRD) >60 (>60 ml/min/1.73 sqM); Potassium 5.9 mmol/L (3.5-5.1); Sodium 137 mmol/L (137-145)
[2017-02-22] MEDS ORDERED: METOPROLOL TARTRATE 5 MG/5 ML VIAL IVP ONE (10:12)
[2017-02-22] MEDS ORDERED: METOPROLOL SUCCINATE (ER) 50 MG TAB.ER.24H PO STA (10:17)
--- NOTE | 2017-02-22 10:28 | P.PN ---
Progress Note - Text Adam Olivo was admitted with palpitations and dizzy spells. Ventricular bigeminy was noted. Cardiac enzymes are normal. I started him on Toprol-XL 50 g daily and he received 2 doses since admission. He underwent a treadmill stress test today and within 3 minutes he had significant increase in his ventricular ectopy with runs of nonsustained ventricular tachycardia. I gave him 5 mg of IV metoprolol and stop the treadmill. He exercised daily for about 3 minutes. 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 Discussed with Dr. Silva We're increasing Toprol-XL 200 mg by mouth daily and I would go up further 250 at 200 mg as tolerated. Heart rates at rest in the 50s or 60s should be fine Avoid amiodarone if possible this gentleman has lung disease. LifeVest prior to discharge This gentleman has exercise-induced runs of monomorphic VT I would even recommend a repeat stress test on maximal doses of beta blockers prior to discharge to see if he continues to have runs of ventricular tachycardia Low TSH needs to be addressed as an inpatient Discussed with Dr. Silva Please see full dictation by nurse practitioner
[2017-02-22] MEDS: ASPIRIN 81 MG PO SCH (10:32)
[2017-02-22] MEDS: NICOTINE 7MG/24HR PATCH TRANSDERM SCH (10:32)
[2017-02-22] MEDS: ENOXAPARIN 40 MG/0.4 ML SYRINGE SQ SCH (10:32)
[2017-02-22] MEDS: FAMOTIDINE 20 MG TAB PO SCH (10:33)
[2017-02-22] MEDS: CALCIUM CARB-VIT D 500MG-200UN 1 EACH TAB PO SCH ×4 (10:33→21:19)
[2017-02-22] MEDS ORDERED: NITROGLYCERIN SL TABS 0.4 MG TAB SUBLINGUAL ONE (11:22)
[2017-02-22 11:37] LABS: Glucose,Whole Blood 114 mg/dL (75-99)
--- NOTE | 2017-02-22 12:13 | EST ---
EXERCISE STRESS DATE OF SERVICE: 02/22/2017 AGE: 66 SEX: Male HT: 72 WT: 196 PROTOCOL: Aquilino STAGE: I DURATION OF EXERCISE: 3 minutes HEART RATE REST: 75 BLOOD PRESSURE REST: 169/47 MAXIMUM HEART RATE ACHIEVED: 145 MAXIMUM BLOOD PRESSURE: 169/47 85% MPHR: 132 100% MPHR: 155 METS: 4.6 INDICATIONS: Chest pain. CLINICAL INFORMATION: A 66-year-old male patient admitted with palpitations and dizziness with frequent ventricular ectopy with a right bundle branch block morphology and upright QRS's in all precordial leads (PVC morphology). He was started on metoprolol succinate 50 mg p.o. daily and he also received it this morning and he is brought in for an exercise treadmill stress test to look for exercise-induced ventricular tachycardia. Left ventricular ejection fraction about 50%. Two years back he had mild coronary artery disease. Baseline heart rate 75 beats per minute. Baseline blood pressure elevated 169/47 mmHg. Baseline 12-lead ECG shows sinus rhythm with a ventricular bigeminy with right bundle branch block like morphology PVCs and upright PVC QRS's in the inferior leads and upright in lead I, but predominantly negative in aVL with an initial upright component. Patient exercised barely for 3 minutes. He seemed short of breath with exercise. Blood pressure response was normal. There was a significant increase in ventricular ectopy with runs of nonsustained ventricular tachycardia up to 5 to 6 beats. More importantly, the VT morphology resembled his ambient PVCs. The test was stopped at 3 minutes. IV metoprolol 5 mg was administered following which there was suppression of the nonsustained ventricular tachycardia. IMPRESSION: Exercise induced ventricular tachycardia. With minimal exercise there was a significant increase in nonsustained ventricular tachycardia frequency. The morphology of the nonsustained ventricular tachycardia was almost identical to his ambient PVCs. Patient was on 50 mg of Toprol XL once daily for the test. PLAN: Inpatient admission, transfer to 6th floor. Discussed with Dr. Jack. Discussed with Dr. Silva. Increase Toprol XL to 100 mg p.o. daily starting today and further maximize to either 150 or 200 mg p.o. daily as tolerated. Please see my dictation from today for further details. MMODL / IJN: [id number] /
[2017-02-22] MEDS: INSULIN LISPRO (humaLOG) 300 UNIT/3 ML VIAL SQ SCH ×3 (12:26→21:19)
[2017-02-22 13:22] LABS: Hemoglobin A1C 5.8 % (4.2-6.1)
--- NOTE | 2017-02-22 14:02 | P.PN ---
Progress Note - Text DATE OF SERVICE: 02/22/2017 PRESENTING COMPLAINT: Short of breath HISTORY OF PRESENT ILLNESS: 66-year-old patient who got up early in the morning to go to the bathroom and became suddenly dizzy started profusely sweating and became short of breath. Unable to catch his breath. History of cardiac catheterization in May [address] Jack, minimal triple-vessel disease. Continued to smoke. While being examined he had another episode of perspiring and feeling tight in the chest. INTERVAL HISTORY: 02/22/2017: Patient seen on 6 E. selective patient transferred from [facility] after stress test. Patient had some ventricular bigeminy on telemetry, had a treadmill stress test today within 3 minutes he had significant increase in his ventricular ectopy and runs of nonsustained ventricular tachycardia. During the test he received 5 mg of IV metoprolol and the treadmill was stopped. EF about 50%. Patient appears very anxious, tearful at times, patient reassured. Cardiology plans to optimize medications and will evaluate additional interventions based on patient response. Patient tolerates his diet, last BM prior to admission, ambulatory in the room and to and from the bathroom. 02/21/2017: Patient lying in bed appears comfortable, no further episodes of chest tightness or perspiring. Ambulatory in the room to and from the bathroom, tolerating his diet eating between 75-100% of his meals. Last BM prior to admission. REVIEW OF SYSTEMS: Done for constitutional ,cardiovascular, GI, pulmonary with relevant findings as above. CURRENT MEDICATIONS DuoNeb, Norvasc 5 mg by mouth daily, aspirin 81 mg by mouth daily, Lipitor 80 mg by mouth at bedtime, Solu-Medrol 40 mg IV every 8 hours, metoprolol 50 mg by mouth every 24 hours, nicotine patch. Metoprolol 100 mg by mouth daily PHYSICAL EXAM VITAL SIGNS: Temperature 97.7, pulse 63, respiratory rate 18, blood pressure 109/68, oxygen saturation 92% on 2 L. GENERAL APPEARANCE: Lying in bed, very anxious. EYES: Pupils equal. Conjunctiva normal. NECK: JVD not raised. Mass not palpable. RESPIRATORY: Respiratory effort normal. Lungs diminished to auscultation. CARDIOVASCULAR: First and second sounds normal. No edema. ABDOMEN: Soft. Liver and spleen not palpable. No tenderness. No mass palpable. PSYCHIATRY: Alert and oriented x3. Mood and affect (. INVESTIGATIONS: Sodium 137, potassium 5.9, BUN 36, creatinine 0.95, TSH 0.34 from 02/21/2017 ASSESSMENT: -Exercise-induced ventricular tachycardia despite 50 mg of Toprol XL in a patient with ejection fraction of about 50% -Intermittent ventricular bigeminy present on admission -Acute shortness of breath, rule out cardiac cause -Acute chronic obstructive pulmonary disease exacerbation in a current smoker. -Chronic nicotine dependence. Patient is a smoker. -Hypertensive heart disease. PLAN: Medication therapy including beta blockers Toprol-XL 200 mg by mouth daily may increase further as patient can tolerate. Heart rates at rest in the 50s or 60s is acceptable per cardiology. Avoid amiodarone as this patient has lung disease. Consult endocrinology for suppressed TSH. Lab care discussed with the patient the bedside he is in agreement. We will continue to follow closely. CUSTOMS AGENT statement: Patient was seen and examined by nurse practitioner Dang Veliz and all elements of the case discussed with attending Dr. Fletcher
[2017-02-22] MEDS ORDERED: SODIUM POLYSTYRENE SULFONATE 15 GM/60 ML BOTTLE PO STA (16:58)
[2017-02-22 17:08] LABS: Glucose,Whole Blood 131 mg/dL (75-99)
[2017-02-22 18:05] LABS: Chloride 104 mmol/L (98-107); Glucose 173 mg/dL (74-99); Potassium 4.9 mmol/L (3.5-5.1)
[2017-02-22 18:06] LABS: Anion Gap 11 mmol/L; Blood Urea Nitrogen 43 mg/dL (9-20); Calcium 9.5 mg/dL (8.4-10.2); Carbon Dioxide 23 mmol/L (22-30); Non-African American GFR(MDRD) >60 (>60 ml/min/1.73 sqM); Sodium 138 mmol/L (137-145)
[2017-02-22] MEDS: amLODIPine 5 MG TAB PO SCH (19:30)
[2017-02-22 21:24] LABS: Glucose,Whole Blood 151 mg/dL (75-99)
--- NOTE | 2017-02-22 21:46 | ECHOF ---
Referral Reason: MEASUREMENTS -------- HEIGHT: 182.9 cm WEIGHT: 88.9 kg BP: 123/69 RVIDd: 3.3 cm (< 3.3) IVSd: 1.4 cm (0.6 - 1.1) LVIDd: 6.0 cm (3.9 - 5.3) LVPWd: 1.3 cm (0.6 - 1.1) IVSs: 2.3 cm LVIDs: 3.6 cm LVPWs: 1.5 cm LAESV Index (A-L): 18.88 ml/m Ao Diam: 3.7 cm (2.0 - 3.7) AV Cusp: 2.0 cm (1.5 - 2.6) LA Diam: 4.4 cm (2.7 - 3.8) MV EXCURSION: 15.228 mm (> 18.000) MV EF SLOPE: 72 mm/s (70 - 150) EPSS: 1.0 cm MV E Marcelino: 0.47 m/s MV DecT: 305 ms MV A Marcelino: 0.98 m/s MV E/A Ratio: 0.48 RAP: 5.00 mmHg RVSP: 14.41 mmHg FINDINGS -------- Sinus rhythm with extra systolic beats. This was a technically adequate study. The left ventricle is mildly dilated. There is moderate concentric left ventricular hypertrophy. Overall left ventricular systolic function is low-normal with, an EF between 50 - 55 %. The right ventricle is normal in size and function. Normal LA size by volume 22+/-6 ml/m2. The right atrium is normal in size. The aortic valve is trileaflet, and appears structurally normal. No aortic stenosis or regurgitation. The mitral valve leaflets are mildly thickened. There is trace mitral regurgitation. Trace tricuspid regurgitation present. Right ventricular systolic pressure is normal at < 35 mmHg. There is no evidence of pulmonary hypertension. The pulmonic valve was not well visualized. The aortic root size is normal. Normal inferior vena cava with normal inspiratory collapse consistent with estimated right atrial pressure of 5 mmHg. The pericardium is normal. There is no pericardial effusion. CONCLUSIONS -------- 1. Sinus rhythm with extra systolic beats. 2. Trace tricuspid regurgitation present. 3. Right ventricular systolic pressure is normal at < 35 mmHg. 4. There is no evidence of pulmonary hypertension. 5. The pulmonic valve was not well visualized. 6. The aortic root size is normal. 7. There is no pericardial effusion. 8. This was a technically adequate study. 9. The left ventricle is mildly dilated. 10. There is moderate concentric left ventricular hypertrophy. 11. Overall left ventricular systolic function is low-normal with, an EF between 50 - 55 %. 12. Normal LA size by volume 22+/-6 ml/m2. 13. The aortic valve is trileaflet, and appears structurally normal. No aortic stenosis or regurgitation. 14. The mitral valve leaflets are mildly thickened. 15. There is trace mitral regurgitation. MANAGER EXPORT: Shlomo Ortez RDCS
--- NOTE | 2017-02-22 23:04 | PN ---
PROGRESS NOTE DATE OF SERVICE: 02/21/2017 ATTENDING NOTE: This patient seen examined by me on 02/21/2017. I discussed with my EPITAXIAL REACTOR TECHNICIAN, Ms. Veliz. Patient admitted with short of breath. He had some chest tightness. Seen by Cardiology. Lying in bed. No further chest pain. EXAM: LUNGS: Slightly decreased breath sounds. CARDIOVASCULAR: 1st and 2nd sounds normal. ASSESSMENT: 1. Acute chronic obstructive pulmonary disease exacerbation. 2. Hypertensive heart disease. 3. Chronic left leg cramps. PLAN: Cardiology has ordered a stress test. Other medication and treatment plan is to continue. Follow. MMODL / IJN: [id number] /
--- NOTE | 2017-02-22 23:04 | PN ---
PROGRESS NOTE DATE OF SERVICE: 02/22/2017 ATTENDING NOTE: This patient seen examined by me. I discussed with my nurse practitioner, Ms. Veliz. The patient today underwent for a stress test, went right into ventricular tachycardia. Patient was transferred to the cardiology floor. EXAMINATION: LUNGS: Decreased breath sounds. Mild wheezing. INVESTIGATIONS: Potassium 4.9. ASSESSMENT: 1. Exercise-induced ventricular tachycardia strongly suggestive of underlying heart disease. The patient may require cardiac catheterization. Await further input from Cardiology. 2. Acute chronic obstructive pulmonary disease exacerbation in a current smoker. PLAN: Beta bharati as per Cardiology. Patient's TSH is probably euthyroid manifestation. There will be no need for any endocrinology consultation. MMODL / IJN: [id number] /
[2017-02-23] MEDS: methylPREDNISolone SOD SUCCI 40 MG/ML 1 ML VIAL IV SCH ×3 (00:19→17:23)
[2017-02-23 06:09] LABS: Glucose,Whole Blood 116 mg/dL (75-99)
[2017-02-23] MEDS: INSULIN LISPRO (humaLOG) 300 UNIT/3 ML VIAL SQ SCH ×3 (06:57→17:25)
[2017-02-23] MEDS: CALCIUM CARB-VIT D 500MG-200UN 1 EACH TAB PO SCH ×3 (06:57→17:25)
[2017-02-23 07:03] LABS: Basophils % (A) 0 %; CH 29.1; CHCM 32.5; Eosinophils % (A) 0 %; HCT 47.2 % (39.0-53.0); HDW 2.33; HGB 15.3 gm/dL (13.0-17.5); Luc # (Auto) 0.08; Luc % (Auto) 1; Lymphocytes # (A) 0.6 k/uL (1.0-4.8); Lymphocytes % (A) 5 %; MCH 29.2 pg (25.0-35.0); MCHC 32.4 g/dL (31.0-37.0); Mean Platelet Volume 7.7; Monocytes # (A) 0.4 k/uL (0-1.0); Monocytes % (A) 3 %; Neutrophils # (A) 10.8 k/uL (1.3-7.7); Neutrophils % (A) 91 %; RBC 5.25 m/uL (4.30-5.90); RDW 13.7 % (11.5-15.5); WBC 11.9 k/uL (3.8-10.6); WBC (Perox) 12.46
[2017-02-23 07:20] LABS: Anion Gap 8 mmol/L; Blood Urea Nitrogen 35 mg/dL (9-20); Calcium 8.9 mg/dL (8.4-10.2); Carbon Dioxide 28 mmol/L (22-30); Chloride 101 mmol/L (98-107); Glucose 107 mg/dL (74-99); Non-African American GFR(MDRD) >60 (>60 ml/min/1.73 sqM); Potassium 4.9 mmol/L (3.5-5.1); Sodium 137 mmol/L (137-145)
[2017-02-23] MEDS: ASPIRIN 81 MG PO SCH (08:09)
[2017-02-23] MEDS: NICOTINE 7MG/24HR PATCH TRANSDERM SCH (08:09)
[2017-02-23] MEDS: FAMOTIDINE 20 MG TAB PO SCH (08:09)
[2017-02-23] MEDS ORDERED: METOPROLOL SUCCINATE (ER) 100 MG TAB.ER.24H PO SCH (09:00)
[2017-02-23] MEDS: IPRATROPIUM-ALBUTEROL 3 ML NEB INHALATION SCH ×3 (09:03→16:10)
[2017-02-23] MEDS: BUDESONIDE 1 MG/2 ML NEBU INHALATION SCH (09:03)
[2017-02-23] MEDS ORDERED: ASPIRIN 325 MG TAB PO STA (10:25)
[2017-02-23] MEDS ORDERED: ALPRAZolam 0.5 MG TAB PO PRN (10:25)
[2017-02-23] MEDS ORDERED: ALPRAZolam 0.25 MG TAB PO PRN (10:25)
[2017-02-23] MEDS ORDERED: SODIUM CHLORIDE 0.9% 1,000 ML in EMPTY BAG 1 BAG IV ONE (10:25)
[2017-02-23] MEDS ORDERED: NITROGLYCERIN SL TABS 0.4 MG TAB SUBLINGUAL PRN (10:25)
[2017-02-23] MEDS ORDERED: ATORVASTATIN 80 MG TAB PO STA (10:27)
[2017-02-23] MEDS: ENOXAPARIN 40 MG/0.4 ML SYRINGE SQ SCH (10:49)
[2017-02-23] MEDS: amLODIPine 5 MG TAB PO SCH (11:09)
[2017-02-23] MEDS ORDERED: HEPARIN SODIUM 1,000 UN/ML (10ML VL) ONE (11:26)
[2017-02-23] MEDS ORDERED: fentaNYL (PF) 50 MCG/ML 2 ML AMP ONE (11:26)
[2017-02-23] MEDS ORDERED: LIDOCAINE 2% INJ 20 MG/ML (20 ML MDV) ONE (11:26)
[2017-02-23] MEDS ORDERED: diphenhydrAMINE 50 MG/ML 1 ML VIAL ONE (11:26)
[2017-02-23] MEDS ORDERED: VERAPAMIL 2.5 MG/ML 2 ML AMP ONE (11:27)
[2017-02-23] MEDS ORDERED: diphenhydrAMINE 50 MG/ML 1 ML VIAL IVP ONE (11:32)
[2017-02-23] MEDS ORDERED: fentaNYL (PF) 50 MCG/ML 2 ML AMP IV ONE (11:33)
[2017-02-23] MEDS ORDERED: LIDOCAINE 2% INJ 20 MG/ML SQ ONE (11:34)
[2017-02-23] MEDS ORDERED: VERAPAMIL SYRINGE (5 MG/10 ML) INTRAARTER ONE (11:35)
[2017-02-23] MEDS ORDERED: IOHEXOL 350 MG/ML 125ML BOTTLE INJ ONE (11:48)
[2017-02-23] MEDS ORDERED: SODIUM CHLORIDE 0.9% 1,000 ML IV SCH (12:00)
[2017-02-23] MEDS ORDERED: RX INFO: IV CONTRAST WAS GIVEN 1 EACH MISC MISCELLANE PRN (12:00)
[2017-02-23] MEDS ORDERED: ATORVASTATIN 40 MG TAB PO SCH (12:02)
[2017-02-23 13:50] VITALS: RESP 16
[2017-02-23 17:00] VITALS: BP 113/78; PULSE 62; TEMP 97
[2017-02-23 17:28] LABS: Glucose,Whole Blood 131 mg/dL (75-99)
--- NOTE | 2017-02-23 21:11 | CC ---
CARDIAC CATHETERIZATION REPORT Mr. Olivo is a 66-year-old male who presented with symptoms of palpitation and dizziness and was found to have evidence of ventricular ectopic activity, underwent a stress test by Dr. Webb and was found to have an episode of nonsustained VT. In view of that, recommendation regarding cardiac catheterization. The procedure as well as risks and complications were discussed with the patient who is in full understanding and agreement. PROCEDURE: The patient was brought to cath in fasting, semi-sedated state after receiving fentanyl, Benadryl and achieving moderate conscious sedated state. Using Xylocaine anesthesia/Seldinger technique, a 6-Marshallese sheath was introduced in the right radial artery. Selective right and left coronary angiography performed using 5-Marshallese 3 and half bend right and left Luis catheter. Multiple views of the right coronary artery including hemiaxial views obtained. Following that, a 5-Marshallese tight pigtail catheter was introduced into the left ventricle and a 30 degree CLEANING view of the left ventricle was obtained. At that time, cath and sheaths were removed. Hemostasis was obtained with deployment of a TR band. There was no immediate complication. The patient was returned to his room in stable condition. Of note, the patient received 4500 units of intravenous heparin as well as intra-arterial verapamil. FINDINGS: 1. Left main: This is a short size vessel bifurcating into left circumflex, left descending artery, left main coronary artery has no evidence of high-grade stenosis. 2. Left anterior descending artery: This is a large-sized vessel, reaching towards the apex with a wraparound apex segment giving rise to a large diagonal branch. The left anterior descending artery in the proximal segment at the takeoff of diagonal branch has a 20% plaque. The rest of the vessel has no high-degree stenosis. 3. Left circumflex: This is a nondominant vessel, large in caliber, giving rise to 3 obtuse marginal branch. The 3rd is the largest in caliber. The left circumflex has mild intimal disease in mid segment of 20 to 30% without any evidence of high- grade stenosis. 4. Right coronary artery: This is a large dominant vessel bifurcating into the PDA and posterior lateral segment and branches. The right coronary artery in the mid segment has a 20% plaque. The rest of the vessel has no high-grade stenosis. 5. Left ventriculogram: Left ventriculogram is performed in 30 degree CLEANING view and revealed a normal left ventricle size with an ejection fraction of 50%. There was no evidence of mitral regurgitation. 6. Hemodynamics: There was no gradient across the aortic valve. The left ventricular end-diastolic pressure was 8 mm Hg. CONCLUSION: 1. Mild triple-vessel coronary artery disease. 2. Minimally impaired left ventricular systolic function. RECOMMENDATIONS: In view of findings and anatomy, I have recommend continue medical therapy with aggressive coronary risk factors modifications that have been initiated. Those findings and recommendations were discussed with the patient and his family who are in full understanding and agreement and compared with the images obtained in 2015, there is no significant progression of disease. Duration of procedure: 23 minutes. MMODL / IJN: [id number] /
--- NOTE | 2017-02-23 22:04 | P.DS ---
Providers Date of admission: 02/20/17 11:15 Expected date of discharge: 02/23/17 Attending physician: Jose Fletcher Consults: 02/20/17 11:57 Consult Physician Urgent Consulting Provider: Yves Silva Consult Reason/Comments: Episode of bradycardia Do you want consulting provider notified?: Yes Primary care physician: Ashok Rodriguez [facility] Course: FINAL DIAGNOSES: -Exercise-induced ventricular tachycardia despite 50 mg of Toprol XL in a patient with ejection fraction of about 50% -Intermittent ventricular bigeminy present on admission -Acute shortness of breath, rule out cardiac cause -Acute chronic obstructive pulmonary disease exacerbation in a current smoker. -Chronic nicotine dependence. Patient is a smoker. -Hypertensive heart disease. HOSPTIAL COURSE: 66-year-old patient who presented after he became suddenly dizzy started sweating profusely and became short of breath when trying to walk to the bathroom. Unable to catch his breath. History of stent and known minimal triple-vessel disease, continue to smoke. Patient admitted for the same. Cardiology consulted, patient had an second episode of perspiring and feeling tight in the chest. Medication therapy was maximized by cardiology. No amiodarone recommended due to patient's history of lung disease. Patient scheduled for a stress test within 3 minutes of initiating the test patient developed ventricular bigeminy and had runs of nonsustained ventricular tachycardia. Test subsequently stopped patient transferred to [address] [place] [address]. Cardiac catheterization performed to rule out any further advancement of triple- vessel disease, patient continued to have mild triple-vessel disease and a minimally impaired left ventricular systolic function., Recommendations include maximal medical therapy and aggressive risk factors modification. No significant progression of the disease. Smoking cessation discussed extensively with the patient and family they verbalized understanding. Walking pulse ox performed on the patient today without oxygen patient's oxygen saturations dropped to the low 80s, therefore home oxygen therapy was initiated for this patient. Patient is tolerating his diet, ambulatory and 50 and 75% of each meal, ambulatory in the room and [address], last BM 02/23/2017. Patient's condition has stabilized, and is appropriate for discharge PHYSICAL EXAM: CARDIOVASCULAR: First and second sounds noted no edema RESPIRATORY: Tory effort normal, lung sounds diminished bilaterally patient desaturates without oxygen with activity Patient was seen and examined by nurse practitioner Dang Veliz in all elements of the case discussed with attending Dr. Fletcher DISPOSITION: Home to the care of his family Patient Condition at Discharge: Stable Plan - Discharge Summary New Discharge Prescriptions: New amLODIPine [Norvasc] 5 mg PO DAILY@1200 #30 tab Calcium Carb-Vit D 500Mg-200Un [Oscal 500+D] 1 each PO ACHS tab Famotidine [Pepcid] 20 mg PO DAILY #0 tab Metoprolol Succinate (ER) [Toprol XL] 100 mg PO DAILY #30 tab Nicotine 7Mg/24Hr Patch [Habitrol] 1 patch TRANSDERM DAILY patch Nicotine Polacrilex [Nicorette] 2 mg BUCCAL Q4HR PRN pieceofgum PRN Reason: Nicotine Cravings predniSONE 10 mg PO DAILY #30 tab Continue Budesonide-Formot 160-4.5 Mcg [Symbicort 160-4.5 Mcg Inhaler] 2 puff INHALATION RT-DAILY Albuterol Inhaler [Ventolin Hfa Inhaler] 2 puff INHALATION RT-Q4H PRN PRN Reason: Wheezing Aspirin 81 mg PO DAILY Atorvastatin [Lipitor] 40 mg PO HS Ipratropium-Albuterol Nebulize [Duoneb 0.5 mg-3 mg/3 ml Soln] 3 ml INHALATION RT-QID PRN PRN Reason: Shortness Of Breath Discontinued Lopressor (Unknown Dose) 1 tab PO BID Discharge Medication List Albuterol Inhaler [Ventolin Hfa Inhaler] 2 puff INHALATION RT-Q4H PRN 03/02/16 [ History] Aspirin 81 mg PO DAILY 03/02/16 [History] Atorvastatin [Lipitor] 40 mg PO HS 03/02/16 [History] Budesonide-Formot 160-4.5 Mcg [Symbicort 160-4.5 Mcg Inhaler] 2 puff INHALATION RT-DAILY 03/02/16 [History] Ipratropium-Albuterol Nebulize [Duoneb 0.5 mg-3 mg/3 ml Soln] 3 ml INHALATION RT -QID PRN 02/20/17 [History] Calcium Carb-Vit D 500Mg-200Un [Oscal 500+D] 1 each PO ACHS tab 02/23/17 [Rx] Famotidine [Pepcid] 20 mg PO DAILY #0 tab 02/23/17 [Rx] Metoprolol Succinate (ER) [Toprol XL] 100 mg PO DAILY #30 tab 02/23/17 [Rx] Nicotine 7Mg/24Hr Patch [Habitrol] 1 patch TRANSDERM DAILY patch 02/23/17 [Rx] Nicotine Polacrilex [Nicorette] 2 mg BUCCAL Q4HR PRN pieceofgum 02/23/17 [Rx] amLODIPine [Norvasc] 5 mg PO DAILY@1200 #30 tab 02/23/17 [Rx] predniSONE 10 mg PO DAILY #30 tab 02/23/17 [Rx] Follow up Appointment(s)/Referral(s): Antony Jack MD [STAFF PHYSICIAN] - 2 Weeks (Please call office during normal business hours to make follow up appointment. ) Ashok Rodriguez MD [Primary Care Provider] - 3 Days (Please call office during normal business hours to make follow up appointment. ) Patient Instructions/Handouts: COPD (Chronic Obstructive Pulmonary Disease) (DC ), After Radial Heart Catheterization (GEN) Activity/Diet/Wound Care/Special Instructions: Home Oxygen - [facility] - to be delivered to hospital prior to discharge home - [phone] Discharge Disposition: HOME SELF-CARE
--- NOTE | 2017-02-24 14:27 | DS ---
DISCHARGE SUMMARY ATTENDING NOTE: This patient is seen and examined by me. I discussed with nurse practitioner Ms. Veliz. The patient doing much better. Did have a cardiac cath that showed minimal coronary artery disease. Breathing is much improved. EXAMINATION: Lungs improved air entry. CARDIOVASCULAR: First and second sounds normal. Patient did get counseled against smoking. Home medications are resumed. The patient is to follow up with family doctor. Discharge planning more than 35 minutes. MMODL / IJN: [id number] /
== END 2017-02-23 19:58 | disposition home or self-care (01) | DRG 287 ==
LOC: EC 09:02 → 4MS4W 11:15 → 6SEL 02-22 11:15
PROVIDERS: ADMIT Hospitalist; ATTEND Hospitalist
PROC: B2151ZZ Fluoroscopy of Left Heart using Low Osmolar Contrast (ICD-10-PCS; 2017-02-23)
PROC: B2111ZZ Fluoroscopy of Multiple Coronary Arteries using Low Osmolar Contrast (ICD-10-PCS; principal; 2017-02-23 11:15)
DX: I47.2 Ventricular tachycardia (principal); I11.9 Hypertensive heart disease without heart failure; J44.1 Chronic obstructive pulmonary disease with (acute) exacerbation; E78.5 Hyperlipidemia, unspecified; E05.90 Thyrotoxicosis, unspecified without thyrotoxic crisis or storm; I25.10 Atherosclerotic heart disease of native coronary artery without angina pectoris; F17.210 Nicotine dependence, cigarettes, uncomplicated; Z79.51 Long term (current) use of inhaled steroids; Z79.82 Long term (current) use of aspirin; Z79.899 Other long term (current) drug therapy; Z87.442 Personal history of urinary calculi; Z96.1 Presence of intraocular lens; Z98.41 Cataract extraction status, right eye; Z88.0 Allergy status to penicillin; Z86.79 Personal history of other diseases of the circulatory system; Z82.49 Family history of ischemic heart disease and other diseases of the circulatory system
CPT/HCPCS: 36415; 71020; 71275; 80048; 80053; 81003; 82550; 82553; 83036; 83735; 83880; 84439; 84443; 84484; 85025; 85610; 85730; 93005; 93017; 93306; 93458; 94640; 96374; 99285

== ENCOUNTER → 2017-04-30 | Outpatient (CLI) | payer MEDICARE, OTHER ==
[2017-04-30 11:51] LABS: ALT 27 U/L (21-72); AST 14 U/L (17-59); Alkaline Phosphatase 65 U/L (38-126); Anion Gap 7 mmol/L; Blood Urea Nitrogen 14 mg/dL (9-20); Calcium 8.7 mg/dL (8.4-10.2); Carbon Dioxide 29 mmol/L (22-30); Chloride 104 mmol/L (98-107); Cholesterol 161 mg/dL (<200); Glucose 98 mg/dL (74-99); HDL Cholesterol 40 mg/dL (40-60); Non-African American GFR(MDRD) >60 (>60 ml/min/1.73 sqM); Potassium 4.5 mmol/L (3.5-5.1); Sodium 140 mmol/L (137-145); Total Bilirubin 0.2 mg/dL (0.2-1.3); Total Protein 6.2 g/dL (6.3-8.2)
== END | disposition home or self-care (01) ==
LOC: LABWHC1 11:16
PROVIDERS: ATTEND Internal Medicine Interventional Cardiology
DX: E78.2 Mixed hyperlipidemia (principal)
CPT/HCPCS: 36415; 80053; 80061

== ENCOUNTER 2017-08-29 13:57 | Inpatient (IN) | payer MEDICARE, OTHER ==
[2017-08-29] MEDS ORDERED: IPRATROPIUM 0.5 MG/2.5 ML NEBU INHALATION STA (14:24)
[2017-08-29] MEDS ORDERED: methylPREDNISolone SOD SUCCI 125 MG/2 ML VIAL IV STA (14:24)
[2017-08-29] MEDS ORDERED: ALBUTEROL NEBULIZED 2.5 MG/3 ML INHALATION STA (14:24)
[2017-08-29] MEDS ORDERED: SODIUM CHLORIDE 0.9% 1,000 ML IV STA (14:24)
[2017-08-29] MEDS ORDERED: LEVOFLOXACIN 750 MG TAB PO STA (14:24)
[2017-08-29 15:11] LABS: Basophils % (A) 0 %; Eosinophils # (A) 0.1 k/uL (0-0.7); Eosinophils % (A) 1 %; HGB 14.2 gm/dL (13.0-17.5); Lymphocytes % (A) 7 %; MCH 28.3 pg (25.0-35.0); MCHC 33.8 g/dL (31.0-37.0); MCV 83.8 fL (80.0-100.0); Mean Platelet Volume 7.9; Monocytes # (A) 1.2 k/uL (0-1.0); Monocytes % (A) 8 %; Neutrophils # (A) 12.7 k/uL (1.3-7.7); Neutrophils % (A) 83 %; Platelet Count 274 k/uL (150-450); RBC 5.01 m/uL (4.30-5.90); RDW 13.4 % (11.5-15.5); WBC 15.4 k/uL (3.8-10.6)
[2017-08-29 15:16] LABS: ALT 18 U/L (21-72); AST 12 U/L (17-59); Albumin 3.5 g/dL (3.5-5.0); Alkaline Phosphatase 98 U/L (38-126); Anion Gap 14 mmol/L; Blood Urea Nitrogen 17 mg/dL (9-20); Calcium 8.6 mg/dL (8.4-10.2); Carbon Dioxide 26 mmol/L (22-30); Chloride 94 mmol/L (98-107); Glucose 112 mg/dL (74-99); Potassium 4.1 mmol/L (3.5-5.1); Sodium 134 mmol/L (137-145); Total Bilirubin 0.8 mg/dL (0.2-1.3); Total Protein 6.5 g/dL (6.3-8.2)
--- NOTE | 2017-08-29 15:17 | XR ---
EXAMINATION TYPE: XR chest 2V DATE OF EXAM: 08/29/2017 COMPARISON: 02/20/2017 HISTORY: 67-year-old male difficulty in breathing TECHNIQUE: AP and lateral views FINDINGS: Heart upper limits of normal in size. Diffuse perihilar and interstitial densities slightly increased in the interval. Hyperinflation. Possible focal patchy density anterior mid to lower lung on one of the lateral views. No pleural effusion or sher consolidation. IMPRESSION: 1. Findings suggests COPD with a prominent component of bronchitis. Correlate for superimposed acute bronchitis or atypical pneumonias. 2. More focal patchy density anterior mid to lower lung. Developing pneumonia here would be difficult to exclude. Short interval follow-up recommended to ensure clearance.
[2017-08-29 15:26] LABS: Creatine Kinase 62 U/L (55-170)
[2017-08-29 15:37] LABS: Creatine Kinase MB 1.1 ng/mL (0.0-2.4); Troponin I <0.012 ng/mL (0.000-0.034)
[2017-08-29 15:38] LABS: D-Dimer 0.96 mg/L FEU (<0.60); INR 1.3 (<1.2)
[2017-08-29 15:44] LABS: ABG Base Excess 4.9 mmol/L; ABG HCO3 30 mmol/L (21-25); ABG Oxygen Saturation 94.1 % (94-97); ABG PCO2 51 mmHg (35-45); ABG PH 7.38 (7.35-7.45); ABG PO2 72 mmHg (83-108); ABG TCO2 32 mmol/L (19-24)
[2017-08-29] MEDS ORDERED: RX INFO: IV CONTRAST WAS GIVEN 1 EACH MISC MISCELLANE PRN (16:53)
--- NOTE | 2017-08-29 17:08 | ED ---
SOB HPI - General Chief Complaint: Shortness of Breath Stated Complaint: BIANCA Time Seen by Provider: 08/29/17 14:13 Source: patient, EMS Mode of arrival: EMS Limitations: no limitations - History of Present Illness Initial Comments: Extensive 7 years old male has been smoking since he was 11 years old and he still smokes as he history of chronic shortness of breath and chronic COPD I got worse over the last 2 days at home his oxygen was quite low and he struggling to breathe he said it does hurt when he takes a deep breath. There are no chills. He has continuous cough he is spitting up lots of phlegm no abdominal pain no frequency urgency dysuria no symptoms of TIA or CVA - Related Data Home Medications Medication Instructions Recorded Confirmed Albuterol Inhaler [Ventolin Hfa 2 puff INHALATION RT-Q4H PRN 03/02/16 08/29/17 Inhaler] Atorvastatin [Lipitor] 40 mg PO HS 03/02/16 08/29/17 Budesonide-Formot 160-4.5 Mcg 2 puff INHALATION RT-DAILY 03/02/16 08/29/17 [Symbicort 160-4.5 Mcg Inhaler] Ipratropium-Albuterol Nebulize 3 ml INHALATION RT-QID PRN 02/20/17 08/29/17 [Duoneb 0.5 mg-3 mg/3 ml Soln] Lisinopril [Zestril] 20 mg PO DAILY 08/29/17 08/29/17 Metoprolol Tartrate [Lopressor] 25 mg PO DAILY 08/29/17 08/29/17 Previous Rx's Medication Instructions Recorded amLODIPine [Norvasc] 5 mg PO DAILY@1200 #30 tab 02/23/17 Allergies Allergy/AdvReac Type Severity Reaction Status Date / Time Penicillins Allergy Rash/Hives Verified 08/29/17 14:21 Review of Systems ROS Statement: Those systems with pertinent positive or pertinent negative responses have been documented in the HPI. ROS Other: All systems not noted in ROS Statement are negative. Past Medical History Past Medical History: Asthma, COPD, Hyperlipidemia, Hypertension, Renal Disease Additional Past Medical History / Comment(s): Since March 2015, patient has had intermittent generalized body rash, intermittent facial and bilateral leg swelling, which is itchy and painful (has caused insomnia). Patient states Dr. Goins believes it to be an auto-immune problem. Other HX: kidney stones. 5.1cm aortic aneurysm with repair, L eardrum hole with drainage at times, bilateral leg cramps at times. History of Any Multi-Drug Resistant Organisms: None Reported Past Surgical History: Appendectomy, Ear Surgery, Heart Catheterization, Hernia Repair Additional Past Surgical History / Comment(s): 06/2016 AAA repair. Facial reconstructive surgery. L ear surgery. Umbilical hernia. Colonoscopy-benign polypectomy. R cataract removed with lens. L eye had glass removed and lens placed. Past Anesthesia/Blood Transfusion Reactions: No Reported Reaction Additional Past Anesthesia/Blood Transfusion Reaction / Comment(s): Pt has never recieved blood. Past Psychological History: No Psychological Hx Reported Smoking Status: Current every day smoker Past Alcohol Use History: Occasional Past Drug Use History: None Reported - Past Family History Father Family Medical History: Myocardial Infarction (MS) Additional Family Medical History / Comment(s): Father at age 75 yrs of a MS Mother Family Medical History: Cancer Additional Family Medical History / Comment(s): Mother of metastatic cancer (unknown primary) at age 42 yrs. General Exam - General Exam Comments Initial Comments: General: The patient is awake and alert, in moderate distress, GCS 15 Skin: Skin is warm and dry and no rashes or lesions are noted. Eye: Pupils are equal, round and reactive to light, extra-ocular movements are intact; there is normal conjunctiva bilaterally. Ears, nose, mouth and throat: There are moist mucous membranes and no oral lesions. Neck: The neck is supple, there is no tenderness or JVD. Cardiovascular: There is a regular rate and rhythm. No murmur, rub or gallop is appreciated. Respiratory: To auscultation bilateral, 2 consistent with a severe COPD poor air exchange, crackles at the right base Gastrointestinal: Soft, non-distended, non-tender abdomen without masses or organomegaly noted. There is no rebound or guarding present. Bowel sounds are unremarkable. Back: There is no tenderness to palpation in the midline. There is no obvious deformity. Musculoskeletal: Normal ROM, no tenderness, There is no pedal edema. There is no calf tenderness or swelling. No cords were appreciated. Neurological: CN II-XII intact, Cranial nerves III through XII are intact. There are no obvious motor or sensory deficits. Coordination appears grossly intact. Speech is normal. Psychiatric: Cooperative, appropriate mood & affect, normal judgment. Limitations: no limitations Course Vital Signs 08/29/17 08/29/17 08/29/17 14:00 14:43 15:16 Temperature 98.7 F Pulse Rate 97 84 Respiratory 16 22 20 Rate Blood Pressure 121/67 121/62 O2 Sat by Pulse 88 L 91 L Oximetry 08/29/17 08/29/17 08/29/17 15:26 15:42 16:36 Temperature Pulse Rate 96 97 86 Respiratory 21 Rate Blood Pressure 113/77 O2 Sat by Pulse 90 L Oximetry EKG is a sinus tachycardia ventricular rate is 1 or 2 CA interval is 126 QRS duration is 98 QT/QTc is 326/424 review of this EKG does not reveal any STEMI or ST segment depression, labs are reviewed Medical Decision Making - Lab Data Result diagrams: 08/29/17 14:50 08/29/17 14:50 Lab Results 08/29/17 08/29/17 08/29/17 Range/Units 14:50 14:50 14:50 WBC 15.4 H (3.8-10.6) k/uL RBC 5.01 (4.30-5.90) m/uL Hgb 14.2 (13.0-17.5) gm/dL Hct 42.0 (39.0-53.0) % MCV 83.8 (80.0-100.0) fL MCH 28.3 (25.0-35.0) pg MCHC 33.8 (31.0-37.0) g/dL RDW 13.4 (11.5-15.5) % Plt Count 274 (150-450) k/uL Neutrophils % 83 % Lymphocytes % 7 % Monocytes % 8 % Eosinophils % 1 % Basophils % 0 % Neutrophils # 12.7 H (1.3-7.7) k/uL Lymphocytes # 1.0 (1.0-4.8) k/uL Monocytes # 1.2 H (0-1.0) k/uL Eosinophils # 0.1 (0-0.7) k/uL Basophils # 0.0 (0-0.2) k/uL PT (9.0-12.0) sec INR (<1.2) APTT (22.0-30.0) sec D-Dimer (<0.60) mg/L FEU Sample Site ABG pH (7.35-7.45) ABG pCO2 (35-45) mmHg ABG pO2 (83-108) mmHg ABG HCO3 (21-25) mmol/L ABG Total CO2 (19-24) mmol/L ABG O2 Saturation (94-97) % ABG Base Excess mmol/L Rodger Test FiO2 % Sodium 134 L (137-145) mmol/L Potassium 4.1 (3.5-5.1) mmol/L Chloride 94 L (98-107) mmol/L Carbon Dioxide 26 (22-30) mmol/L Anion Gap 14 mmol/L BUN 17 (9-20) mg/dL Creatinine 0.64 L (0.66-1.25) mg/dL Est GFR (CKD-EPI)AfAm >90 (>60 ml/min/1.73 sqM) Est GFR (CKD-EPI)NonAf >90 (>60 ml/min/1.73 sqM) Glucose 112 H (74-99) mg/dL Calcium 8.6 (8.4-10.2) mg/dL Total Bilirubin 0.8 (0.2-1.3) mg/dL AST 12 L (17-59) U/L ALT 18 L (21-72) U/L Alkaline Phosphatase 98 (38-126) U/L Total Creatine Kinase 62 (55-170) U/L CK-MB (CK-2) 1.1 (0.0-2.4) ng/mL CK-MB (CK-2) Rel Index 1.8 Troponin I <0.012 (0.000-0.034) ng/mL Total Protein 6.5 (6.3-8.2) g/dL Albumin 3.5 (3.5-5.0) g/dL 08/29/17 08/29/17 Range/Units 14:50 15:38 WBC (3.8-10.6) k/uL RBC (4.30-5.90) m/uL Hgb (13.0-17.5) gm/dL Hct (39.0-53.0) % MCV (80.0-100.0) fL MCH (25.0-35.0) pg MCHC (31.0-37.0) g/dL RDW (11.5-15.5) % Plt Count (150-450) k/uL Neutrophils % % Lymphocytes % % Monocytes % % Eosinophils % % Basophils % % Neutrophils # (1.3-7.7) k/uL Lymphocytes # (1.0-4.8) k/uL Monocytes # (0-1.0) k/uL Eosinophils # (0-0.7) k/uL Basophils # (0-0.2) k/uL PT 12.0 (9.0-12.0) sec INR 1.3 H (<1.2) APTT 23.0 (22.0-30.0) sec D-Dimer 0.96 H (<0.60) mg/L FEU Sample Site rrad ABG pH 7.38 (7.35-7.45) ABG pCO2 51 H (35-45) mmHg ABG pO2 72 L (83-108) mmHg ABG HCO3 30 H (21-25) mmol/L ABG Total CO2 32 H (19-24) mmol/L ABG O2 Saturation 94.1 (94-97) % ABG Base Excess 4.9 mmol/L Rodger Test Yes FiO2 36 % Sodium (137-145) mmol/L Potassium (3.5-5.1) mmol/L Chloride (98-107) mmol/L Carbon Dioxide (22-30) mmol/L Anion Gap mmol/L BUN (9-20) mg/dL Creatinine (0.66-1.25) mg/dL Est GFR (CKD-EPI)AfAm (>60 ml/min/1.73 sqM) Est GFR (CKD-EPI)NonAf (>60 ml/min/1.73 sqM) Glucose (74-99) mg/dL Calcium (8.4-10.2) mg/dL Total Bilirubin (0.2-1.3) mg/dL AST (17-59) U/L ALT (21-72) U/L Alkaline Phosphatase (38-126) U/L Total Creatine Kinase (55-170) U/L CK-MB (CK-2) (0.0-2.4) ng/mL CK-MB (CK-2) Rel Index Troponin I (0.000-0.034) ng/mL Total Protein (6.3-8.2) g/dL Albumin (3.5-5.0) g/dL Critical Care Time Total Critical Care Time: 45 Critical Care Time: , He came in now quite short winded, her bronchodilators all started right away here he had Down syndrome Solu-Medrol in the ambulance we started started him on a antibiotics right away he got Levaquin 750 mg is complaining about shortness of breath along with the pleuritic chest pain d-dimer is elevated myoglobin ordered CT chest angiogram white count is elevated as well surprisingly ABGs were within normal range so is the troponin and EKG was unremarkable as well chest x-ray is positive for pneumonia and COPD he be admitted to Dr. Segals Disposition Clinical Impression: Respiratory distress, Acute exacerbation of COPD with asthma, Elevated d-dimer , Pneumonia Disposition: ADMITTED IP TO THIS HOSP Condition: Good Referrals: Ashok Rodriguez MD [Primary Care Provider] - 1-2 days
[2017-08-29] MEDS ORDERED: IPRATROPIUM-ALBUTEROL 3 ML NEB INHALATION PRN (17:19)
[2017-08-29] MEDS ORDERED: LEVOFLOXACIN 750MG-D5W PMX 750 MG in DEXTROSE/WATER 1 150ML.BAG IVPB SCH (17:30)
--- NOTE | 2017-08-29 17:58 | CT ---
EXAMINATION TYPE: CT chest angio for PE DATE OF EXAM: 08/29/2017 COMPARISON: 02/20/2017 HISTORY: Patient complains of BIANCA, sternal chest pain, chest congestion, and productive cough. CT DLP: 548 mGycm Automated exposure control for dose reduction was used. CONTRAST: CT Chest for pulmonary embolism performed with with IV Contrast, patient injected with 100 mL of Isov ue 370. FINDINGS: Heart size is normal. There is no pericardial effusion. There is no pleural effusion. There is hiatal hernia noted. There is normal contrast opacification of the pulmonary arteries. I see no filling def ect. There are numerous mediastinal and bronchial lymph nodes that measure up to 1.8 cm. Thoracic aor ta is atheromatous. There is no evidence of dissection. There is no aneurysm. There is a 2 cm cyst in the superior spleen. There are calcifications in the upper pole left kidney. There is a coarse nodular infiltrates throughout the lungs and more noticeable in the mid and lower l bekah jean. This appears new compared to old exam. IMPRESSION: No evidence of pulmonary embolism. There is new diffuse predominantly nodular infiltrate in the lungs compared to old exam. There is also increasing mediastinal and bronchial mild adenopathy. Findings c ould relate to inflammatory disease such as sarcoidosis. Hiatal hernia. Atherosclerotic vascular disease.
[2017-08-29 18:49] VITALS: BMI 25.4
[2017-08-29] MEDS: methylPREDNISolone SOD SUCCI 125 MG/2 ML VIAL IV SCH (19:17)
[2017-08-29] MEDS ORDERED: SYMBICORT 80-4.5 MCG INHALER INHALATION SCH (20:00)
[2017-08-29] MEDS: SYMBICORT 160-4.5 MCG INHALER INHALATION SCH (20:40)
[2017-08-29] MEDS: IPRATROPIUM-ALBUTEROL 3 ML NEB INHALATION PRN (20:40)
[2017-08-29 20:47] LABS: Glucose,Whole Blood 133 mg/dL (75-99)
[2017-08-29] MEDS: INSULIN ASPART 100 UNIT/ML 1 ML 10 ML VIAL SQ SCH (21:51)
[2017-08-29] MEDS: ATORVASTATIN 40 MG TAB PO SCH (21:52)
[2017-08-30] MEDS: methylPREDNISolone SOD SUCCI 125 MG/2 ML VIAL IV SCH ×5 (00:37→23:04)
[2017-08-30] MEDS: ENOXAPARIN 40 MG/0.4 ML SYRINGE SQ SCH ×2 (00:37→08:22)
[2017-08-30 05:17] LABS: Glucose,Whole Blood 160 mg/dL (75-99)
--- NOTE | 2017-08-30 06:12 | HP ---
HISTORY AND PHYSICAL DATE OF ADMISSION: 08/29/2017. PRESENTING COMPLAINT: Short of breath, cough. HISTORY OF PRESENTING COMPLAINT: This is a pleasant 67-year-old patient of Dr. Rodriguez. Chronic stable medical conditions include hypertensive heart disease, chronic nicotine dependence. The patient presents with 3 days of increasing amount of shortness of breath, cough, yellow- green sputum, wheezing, fever, decreased appetite. Patient has also been throwing up and having diarrhea, just tired, run down, feeling miserable. The patient is a long- standing smoker. REVIEW OF SYSTEMS: CONSTITUTIONAL: Weak, tired, febrile. HEENT: None. RESPIRATORY: As above, CARDIOVASCULAR: None GASTROINTESTINAL: As above. GENITOURINARY: None. MUSCULOSKELETAL: None. DERMATOLOGICAL: None. HEMATOLOGIC: None. LYMPHATIC: None. PSYCHIATRY: None. NEUROLOGICAL: None. 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 PAST SURGICAL HISTORY: Appendectomy, ear surgery, cardiac catheterization with minimal disease, hernia repair, AAA repair, facial reconstructive surgery, left ear surgery, umbilical hernia repair, colonoscopy with polypectomy, right cataract removed. SOCIAL HISTORY: The patient is . The patient has been smoking for over 55 years. runs [facility]. Alcohol occasionally. FAMILY HISTORY: Father of a heart attack at age of 75. HOME MEDICATIONS: 1. Norvasc 5 mg a day at noon. 2. Lopressor 25 mg p.o. daily. 3. Zestril 20 mg p.o. daily. 4. DuoNeb q.i.d. p.r.n. 5. Symbicort 160/4.5 two puffs daily. 6. Lipitor 40 mg q.h.s. 7. Ventolin HFA 2 puffs q.4 p.r.n. ALLERGIES: Allergic to PENICILLIN. PHYSICAL EXAMINATION: On examination, vital signs on presentation: Temperature 98.7, pulse 97, respirations 16, blood pressure 121/67, pulse ox 88% on 6 L. GENERAL APPEARANCE: Well built, lying in bed, very tired appearing. EYES: Pupils are normal. Conjunctivae normal. HENT: External appearance of nose and ears normal. Oral cavity normal. NECK: JVD not raised. Mass not palpable. RESPIRATORY: Effort increased. Accessory muscles are working. Patient not able to speak in full sentences. LUNGS: Poor air entry, prolonged expiration. CARDIOVASCULAR: First and second sounds normal. No edema. ABDOMEN: Soft, nontender. Liver and spleen not palpable. LYMPHATIC: No lymph node palpable in neck or axillae. PSYCHIATRY: Alert and oriented x3. Mood and affect anxious appearing. NEUROLOGICAL: Pupils equal. Cranial nerves grossly intact. Power and sensation grossly intact. INVESTIGATIONS: White count 15.4, potassium 14, hemoglobin 14.2. Blood gas showed pCO2 51, CO2 of 32, pO2 of 7. Potassium 4.1. Chest x-ray shows scattered infiltrates. CTA shows scattered infiltrates with no PE. ASSESSMENT: 1. Acute bilateral pneumonia suspect gram-negative organism possible sepsis present on admission. 2. Acute hypoxic/hypercapnic respiratory failure from above. 3. Acute chronic obstructive pulmonary disease exacerbation in a current smoker. 4. Chronic nicotine dependence, patient active cigarette smoker. 5. Hyperlipidemia. 6. Essential hypertension. 7. 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 8. Chronic bilateral lower extremity leg cramps. PLAN: Patient is started on IV Levaquin in the ER. Also on DuoNeb, IV Solu-Medrol. Will send a sputum for Gram stain and culture. The patient is given a nicotine patch. Home medications are resumed. Consultation made to Dr. Gonzalez. Smoking cessation counseling was done with the patient especially in view of things getting worse from COPD standpoint. Nicotine patch has been given, more than 3 minutes was spent for this aspect of the case. MMODL / IJN: [id number] /
[2017-08-30] MEDS: INSULIN ASPART 100 UNIT/ML 1 ML 10 ML VIAL SQ SCH ×4 (07:10→20:53)
[2017-08-30] MEDS: IPRATROPIUM-ALBUTEROL 3 ML NEB INHALATION PRN ×3 (07:57→19:18)
[2017-08-30] MEDS: SYMBICORT 160-4.5 MCG INHALER INHALATION SCH ×2 (07:58→19:18)
[2017-08-30] MEDS: METOPROLOL TARTRATE 25 MG TAB PO SCH (08:22)
[2017-08-30] MEDS: NICOTINE 21MG/24HR PATCH TRANSDERM SCH (08:22)
[2017-08-30] MEDS: LISINOPRIL 20 MG TAB PO SCH (08:22)
[2017-08-30] MEDS ORDERED: LEVOFLOXACIN 750MG-D5W PMX 750 MG in DEXTROSE/WATER 1 150ML.BAG IVPB SCH (09:00)
[2017-08-30 11:27] LABS: Glucose,Whole Blood 125 mg/dL (75-99)
[2017-08-30] MEDS: amLODIPine 5 MG TAB PO SCH (11:54)
--- NOTE | 2017-08-30 14:47 | P.CNPUL ---
History of Present Illness Consult date: 08/30/17 Reason for consult: dyspnea, COPD, pneumonia History of present illness: 65-year-old male patient, known history of advanced COPD with an FEV1 of 34% of predicted, a chronic smoker who cares also a [id number] smoking history, who has been maintained on a combination of DuoNeb nebulized treatments around the clock and Ventolin rescue inhaler, presented to the hospital because of increased cough, purulent sputum, increased shortness of breath and chills and progressive increase in dyspnea. A computed tomography scan of the chest was done and showed bilateral noted a pulmonary infiltrates which was not present on previous CAT scan imaging. This is obviously new finding compared to last year and is suspicion for an infectious pneumonia was raised. For that reason the patient was hospitalized. No altered mentation. No pleurisy. No major swelling in the lower extremities. Currently is on a combination of bronchodilators and steroids and antibiotics. No nausea. No vomiting. No emesis.Note that the patient was in the hospital in February 2017 for chest pain. He underwent a cardiac catheterization and he was found to have mild triple-vessel coronary artery disease and the patient's ejection fraction was at 50% and the patient's left ventricular end diastolic pressure was 8. The patient had a moderate LVH. No stents were inserted and the patient was asked to proceed with medical treatment. During the same hospital stay, the patient had a CT angios the chest that showed no evidence of pneumonia or lung masses. His pulse ox was dropping below 90% and he was given home O2. He is using his oxygen on and off whenever he feels that his pulse ox is dropping below 90%. The patient is also status post endovascular stent grafting for an abdominal aortic aneurysm. Review of Systems Constitutional Constitutional: (fatigue and weakness) Eyes Eyes: no dry eyes, no vision change, no irritation ENMT Ears: no difficulty hearing, no ear pain Nose: no frequent nosebleeds, no nose problems, no sinus problems Mouth/Throat: no sore throat, no bleeding gums, no snoring, no dry mouth, no mouth ulcers, no oral abnormalities, no teeth problems Cardiovascular Cardiovascular: no chest pain, no arm pain on exertion, no shortness of breath when walking, no shortness of breath when lying down, no palpitations, no known heart murmur Respiratory Respiratory: cough, wheezing, shortness of breath Gastrointestinal Gastrointestinal: no abdominal pain, no nausea, no vomiting, no constipation, normal appetite, no diarrhea, not vomiting blood, no dyspepsia, no GERD Genitourinary Genitourinary: no incontinence, no difficulty urinating, no hematuria, no increased frequency Musculoskeletal Musculoskeletal: arthralgias/joint pain Integumentary Skin: (recurring skin rash) Neurologic Neurologic: no loss of consciousness, no weakness, no numbness, no seizures, no dizziness, no migraines, no headaches, no tremor Psychiatric Psych: no depression, no sleep disturbances, feeling safe in a relationship, no alcohol abuse, no anxiety, no hallucinations, no suicidal thoughts Endocrine Endocrine: no fatigue Hematologic/Lymphatic Hematologic/Lymphatic no swollen glands, no bruising, no excessive bleeding Allergic/Immunologic Allergy/Immunologic: no runny nose, no sinus pressure, no itching, no hives, no frequent sneezing Past Medical History Past Medical History: COPD, Hyperlipidemia, Hypertension, Renal Disease Additional Past Medical History / Comment(s): Severe COPD, chronic hypoxic history failure, history of autoimmune disease currently under investigation by Dr. Goins, coronary artery disease with triple-vessel involvement, preserved LV function with an ejection fraction of 50% and moderate LVH, abdominal aortic aneurysm status post endovascular stent grafting, nephrolithiasis, bilateral leg cramps, left eardrum perforation, hyperlipidemia, hypertension History of Any Multi-Drug Resistant Organisms: None Reported Past Surgical History: Appendectomy, Ear Surgery, Heart Catheterization, Hernia Repair Additional Past Surgical History / Comment(s): Endovascular stent grafting of a abdominal aortic aneurysm. Facial reconstructive surgery. L ear surgery. Umbilical hernia. Colonoscopy-benign polypectomy. R cataract removed with lens. L eye had glass removed and lens placed. Past Anesthesia/Blood Transfusion Reactions: No Reported Reaction Additional Past Anesthesia/Blood Transfusion Reaction / Comment(s): Pt has never recieved blood. Past Psychological History: No Psychological Hx Reported Additional Psychological History / Comment(s): Pt resides with his spouse. He is normally independent. He has a nebulizer at home. He drives. Smoking Status: Current every day smoker Past Alcohol Use History: Occasional Additional Past Alcohol Use History / Comment(s): Pt started smoking in 1961. Pt states he is down to 5 cigarettes a day. Past Drug Use History: None Reported - Past Family History Father Family Medical History: Myocardial Infarction ([place]) Additional Family Medical History / Comment(s): Father at age 75 yrs of a [place] Mother Family Medical History: Cancer Additional Family Medical History / Comment(s): Mother of metastatic cancer (unknown primary) at age 42 yrs. Medications and Allergies Home Medications Medication Instructions Recorded Confirmed Type Albuterol Inhaler [Ventolin Hfa 2 puff INHALATION RT-Q4H PRN 03/02/16 08/29/17 History Inhaler] Atorvastatin [Lipitor] 40 mg PO HS 03/02/16 08/29/17 History Budesonide-Formot 160-4.5 Mcg 2 puff INHALATION RT-DAILY 03/02/16 08/29/17 History [Symbicort 160-4.5 Mcg Inhaler] Ipratropium-Albuterol Nebulize 3 ml INHALATION RT-QID PRN 02/20/17 08/29/17 History [Duoneb 0.5 mg-3 mg/3 ml Soln] amLODIPine [Norvasc] 5 mg PO DAILY@1200 #30 tab 02/23/17 08/29/17 Rx Lisinopril [Zestril] 20 mg PO DAILY 08/29/17 08/29/17 History Metoprolol Tartrate [Lopressor] 25 mg PO DAILY 08/29/17 08/29/17 History Allergies Allergy/AdvReac Type Severity Reaction Status Date / Time Penicillins Allergy Rash/Hives Verified 08/29/17 14:21 Physical Exam Vitals: Vital Signs Temp Pulse Pulse Resp BP BP Pulse Ox 08/30/17 12:03 84 08/30/17 11:49 80 08/30/17 08:07 80 08/30/17 08:00 97.1 F L 84 22 119/68 89 L 08/30/17 07:58 76 94 L 08/30/17 04:00 97.6 F 75 18 137/77 93 L 08/30/17 00:00 97.8 F 82 20 118/57 90 L 08/29/17 20:53 89 08/29/17 20:41 89 92 L 08/29/17 20:00 98.4 F 90 18 111/60 93 L 08/29/17 18:18 98.6 F 92 18 116/68 90 L 08/29/17 18:17 97.4 F L 92 18 127/76 88 L 08/29/17 16:36 86 21 113/77 90 L 08/29/17 15:42 97 08/29/17 15:26 96 08/29/17 15:16 84 20 121/62 91 L 08/29/17 14:43 22 Intake and Output 08/29/17 08/30/17 08/30/17 22:59 06:59 14:59 Intake Total 800 800 600 Balance 800 800 600 Intake: IV 800 800 Sodium Chloride 0.9% 1, 800 800 000 ml @ 100 mls/hr IV . Q10H STA Rx#:[id number] Oral 600 Other: Voiding Method Toilet Toilet Urinal Urinal # Voids 2 1 Weight 85 kg 97.5 kg General Appearance no diaphoresis, no respiratory distress, speech not interrupted by breaths, no dyspnea, no pallor, not cachectic, well nourished, appears well HEENT no pursed lip breathing, no jugular venous distention, no mucous membrane cyanosis, no perioral cyanosis, mallampati classification: class 1 Chest no barrel chest, no retractions, no sternocleidomastoid muscle contractions, no supraclavicular retractions, no intercostal retractions, no decreased air movement, no rhonchi, no hyperinflation, prolonged expiratory wheezing, decreased air movement Heart no right ventricular heave, no distant heart sounds, no s3 gallop GI bowel sounds: hyperactive (borborygmi), bowel sounds: diminished or absent Extremities no cyanosis, no clubbing, no edema Neurologic no decreased mental status, no somnolence, no confusion Skin General Appearance normal, (normal) normal except as noted Results - Laboratory Findings CBC and BMP: 08/29/17 14:50 08/29/17 14:50 ABG ABG pH 7.38 (7.35-7.45) 08/29/17 15:38 ABG pCO2 51 mmHg (35-45) H 08/29/17 15:38 ABG pO2 72 mmHg (83-108) L 08/29/17 15:38 ABG O2 Saturation 94.1 % (94-97) 08/29/17 15:38 PT/INR, D-dimer PT 12.0 sec (9.0-12.0) 08/29/17 14:50 INR 1.3 (<1.2) H 08/29/17 14:50 D-Dimer 0.96 mg/L FEU (<0.60) H 08/29/17 14:50 Abnormal lab findings: Abnormal Labs 08/29/17 08/29/17 08/29/17 14:50 14:50 14:50 WBC 15.4 H Neutrophils # 12.7 H Monocytes # 1.2 H INR 1.3 H D-Dimer 0.96 H ABG pCO2 ABG pO2 ABG HCO3 ABG Total CO2 Sodium 134 L Chloride 94 L Creatinine 0.64 L Glucose 112 H POC Glucose (mg/dL) AST 12 L ALT 18 L 08/29/17 08/29/17 08/30/17 15:38 20:46 05:09 WBC Neutrophils # Monocytes # INR D-Dimer ABG pCO2 51 H ABG pO2 72 L ABG HCO3 30 H ABG Total CO2 32 H Sodium Chloride Creatinine Glucose POC Glucose (mg/dL) 133 H 160 H AST ALT 08/30/17 11:24 WBC Neutrophils # Monocytes # INR D-Dimer ABG pCO2 ABG pO2 ABG HCO3 ABG Total CO2 Sodium Chloride Creatinine Glucose POC Glucose (mg/dL) 125 H AST ALT - Diagnostic Findings CT scan - chest: image reviewed Assessment and Plan Plan: Assessment 1 acute COPD exacerbation with secondary shortness of breath 2 coarse bilateral pulmonary infiltrates, a new findings in the mid and lower lung jean there were NO previous CAT scan images. Rule out underlying acute pneumonia, likely atypical viral/atypical microorganism need to be considered. Acute bronchiolitis other viral in nature needs to be considered 3 severe COPD with baseline with an FEV1 of 36% of predicted 4 chronic hypoxic respiratory failure 5 history of smoking 6 coronary artery disease with triple-vessel involvement and a preserved LV function 7 hypertension 8 hyperlipidemia 9 abdominal aortic aneurysm status post and vascular stent grafting 10 comorbidities all as mentioned above.. Plan Treat this patient with DuoNeb nebulized treatments around the clock. Levaquin 750 mg by mouth daily. IV Solu Medrol 63 g every 6 hours. Obtain sputum Gram stain and culture. We'll continue to follow make further recommendations based on her progress. Sputum will be sent for cultures. Blood cultures were also sent. Smoking cessation counseling was done.
[2017-08-30 16:57] LABS: Glucose,Whole Blood 154 mg/dL (75-99)
--- NOTE | 2017-08-30 18:49 | PN ---
PROGRESS NOTE DATE OF SERVICE: 08/30/2017 PRESENTING COMPLAINT: Short of breath, cough. INTERVAL HISTORY: This patient presented with severe COPD exacerbation. Feels a shade better. Still coughing up some. Did tolerate a little bit of diet. Resting in bed. REVIEW OF SYSTEMS: Done for constitutional, cardiovascular, GI, pulmonary; relevant findings as above. CURRENT MEDICATIONS: Reviewed. They include: 1. DuoNeb. 2. Levaquin. 3. IV Solu-Medrol. PHYSICAL EXAMINATION: Afebrile. Pulse 73, respiration 20, blood pressure 106/60, pulse ox 92% on 4 L. GENERAL APPEARANCE: Lying in bed, tired-appearing. EYES: Pupils equal. Conjunctivae normal. HEENT: External appearance of nose and ears normal. Oral cavity normal. NECK: JVD not raised. Mass not palpable. RESPIRATORY: Effort increased. LUNGS: Decreased breath sounds. Prolonged expiration. CARDIOVASCULAR: First and second sounds normal. No edema. ABDOMEN: Soft, nontender. Liver and spleen not palpable. PSYCHIATRY: Alert and oriented x3. Mood and affect normal. INVESTIGATIONS: Accu-Cheks are noted. ASSESSMENT: 1. Acute severe bilateral pneumonia; suspect Gram-negative organism, sepsis, present on admission, slow to respond. 2. Acute chronic obstructive pulmonary disease exacerbation in a current smoker, slow to respond. 3. Acute hypoxic hypercapnic respiratory failure from above. 4. Chronic nicotine dependence; patient an active cigarette smoker. 5. Hyperlipidemia. 6. Essential hypertension. 7. 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 Goins. 8. Chronic bilateral lower extremity leg cramps. PLAN: Continue the patient on Levaquin, nebulized bronchodilators, steroids. Care was discussed with the patient. MMODL / IJN: [id number] /
[2017-08-30] MEDS: ATORVASTATIN 40 MG TAB PO SCH (20:49)
[2017-08-30 20:53] LABS: Glucose,Whole Blood 147 mg/dL (75-99)
[2017-08-31 06:01] LABS: Glucose,Whole Blood 150 mg/dL (75-99)
[2017-08-31] MEDS: INSULIN ASPART 100 UNIT/ML 1 ML 10 ML VIAL SQ SCH ×4 (06:14→22:06)
[2017-08-31] MEDS: methylPREDNISolone SOD SUCCI 125 MG/2 ML VIAL IV SCH ×4 (06:14→23:47)
[2017-08-31] MEDS: IPRATROPIUM-ALBUTEROL 3 ML NEB INHALATION PRN (07:41)
[2017-08-31] MEDS: SYMBICORT 160-4.5 MCG INHALER INHALATION SCH ×2 (07:42→21:12)
[2017-08-31] MEDS: LEVOFLOXACIN 750 MG TAB PO SCH (07:59)
[2017-08-31] MEDS: ENOXAPARIN 40 MG/0.4 ML SYRINGE SQ SCH (07:59)
[2017-08-31] MEDS: NICOTINE 21MG/24HR PATCH TRANSDERM SCH (07:59)
[2017-08-31] MEDS: LISINOPRIL 20 MG TAB PO SCH (07:59)
[2017-08-31] MEDS: METOPROLOL TARTRATE 25 MG TAB PO SCH (07:59)
[2017-08-31] MEDS ORDERED: guaiFENesin-DM 600/30MG 1 EACH TAB.ER.12H PO PRN (10:58)
[2017-08-31] MEDS: amLODIPine 5 MG TAB PO SCH (11:27)
[2017-08-31] MEDS: guaiFENesin-DM 600/30MG 1 EACH TAB.ER.12H PO SCH ×2 (11:28→22:11)
--- NOTE | 2017-08-31 11:43 | P.PN ---
Subjective Progress Note Date: 08/31/17 Principal diagnosis: Acute exacerbation of chronic obstructive pulmonary disease 65-year-old male patient, known history of advanced COPD with an FEV1 of 34% of predicted, a chronic smoker who cares also a [id number] smoking history, who has been maintained on a combination of DuoNeb nebulized treatments around the clock and Ventolin rescue inhaler, presented to the hospital because of increased cough, purulent sputum, increased shortness of breath and chills and progressive increase in dyspnea. A computed tomography scan of the chest was done and showed bilateral noted a pulmonary infiltrates which was not present on previous CAT scan imaging. This is obviously new finding compared to last year and is suspicion for an infectious pneumonia was raised. For that reason the patient was hospitalized. No altered mentation. No pleurisy. No major swelling in the lower extremities. Currently is on a combination of bronchodilators and steroids and antibiotics. No nausea. No vomiting. No emesis.Note that the patient was in the hospital in February 2017 for chest pain. He underwent a cardiac catheterization and he was found to have mild triple-vessel coronary artery disease and the patient's ejection fraction was at 50% and the patient's left ventricular end diastolic pressure was 8. The patient had a moderate LVH. No stents were inserted and the patient was asked to proceed with medical treatment. During the same hospital stay, the patient had a CT angios the chest that showed no evidence of pneumonia or lung masses. His pulse ox was dropping below 90% and he was given home O2. He is using his oxygen on and off whenever he feels that his pulse ox is dropping below 90%. The patient is also status post endovascular stent grafting for an abdominal aortic aneurysm. The patient is seen again today 08/31/2017 in follow-up on the selective care unit. He is awake and alert in no acute distress. He is somewhat dyspneic with minimal exertion. He continues with a productive cough of pale yellow sputum. He is maintaining O2 saturations in the low 90s on 4 L/m per nasal cannula. He is currently afebrile. Sputum cultures pending. Influenza screen is negative. Objective - Vital Signs Vital signs: Vital Signs Temp 96.0 F L 08/31/17 08:00 Pulse 84 08/31/17 11:07 Resp 22 08/31/17 08:00 BP 112/65 08/31/17 08:00 Pulse Ox 89 L 08/31/17 08:00 Intake & Output 08/30/17 08/31/17 08/31/17 18:59 06:59 18:59 Intake Total 1422 220 Output Total 1050 Balance 1422 -830 Weight 85.5 kg Intake: Intake, IV Titration 240 Amount Levofloxacin 750Mg-D5w 100 Pmx 750 mg In Dextrose/ Water 1 150ml.bag @ 100 mls/hr IVPB Q24HR RAF Rx# :[id number] Sodium Chloride 0.9% 1, 140 000 ml @ 100 mls/hr IV . Q10H STA Rx#:[id number] Oral 1182 220 Output: Urine 1050 Other: Voiding Method Toilet Urinal - Exam GENERAL EXAM: Alert, fairly comfortable in no apparent distress. HEAD: Normocephalic. EYES: Normal reaction of pupils, equal size. NOSE: Clear with pink turbinates. THROAT: No erythema or exudates. NECK: No masses, no JVD. CHEST: No chest wall deformity. LUNGS: Equal air entry with bilateral end expiratory wheeze. Few scattered rhonchi. Diminished. CVS: S1 and S2 normal with no audible murmur, regular rhythm. ABDOMEN: No hepatosplenomegaly, normal bowel sounds, no guarding or rigidity. SPINE: No scoliosis or deformity SKIN: No rashes CENTRAL NERVOUS SYSTEM: No focal deficits, tone is normal in all 4 extremities. EXTREMITIES: There is no peripheral edema. No clubbing, no cyanosis. Peripheral pulses are intact. - Labs CBC & Chem 7: 08/29/17 14:50 08/29/17 14:50 Labs: Abnormal Lab Results - Last 24 Hours (Table) 08/30/17 08/30/17 08/31/17 Range/Units 16:34 20:51 06:00 POC Glucose (mg/dL) 154 H 147 H 150 H (75-99) mg/dL Microbiology - Last 24 Hours (Table) 08/30/17 06:15 Gram Stain - Preliminary Sputum Assessment and Plan Assessment: Assessment 1 acute COPD exacerbation with secondary shortness of breath 2 coarse bilateral pulmonary infiltrates, a new findings in the mid and lower lung jean there were NO previous CAT scan images. Rule out underlying acute pneumonia, likely atypical viral/atypical microorganism need to be considered. Acute bronchiolitis other viral in nature needs to be considered 3 severe COPD with baseline with an FEV1 of 36% of predicted 4 chronic hypoxic respiratory failure 5 history of smoking 6 coronary artery disease with triple-vessel involvement and a preserved LV function 7 hypertension 8 hyperlipidemia 9 abdominal aortic aneurysm status post and vascular stent grafting 10 comorbidities all as mentioned above.. Plan Patient was seen and evaluated by Dr. Gonzalez. He is slightly improved today as compared to yesterday but still not quite back to his baseline. We'll continue with his current medications for now. We'll add Mucinex to his regime. We'll increase his activity as tolerated. We'll continue to follow make further recommendations based status. I, the cosigning physician, performed a history & physical examination of the patient. Lungs sounds have bilateral end expiratory wheeze, few scattered rhonchi. Maintaining good O2 saturations in the 90s on 4 L/m per nasal cannula. I discussed the assessment and plan of care with my nurse practitioner , Lynda Kaur. I attest to the above note as dictated by her.
[2017-08-31 12:24] LABS: Glucose,Whole Blood 126 mg/dL (75-99)
[2017-08-31] MEDS: IPRATROPIUM-ALBUTEROL 3 ML NEB INHALATION SCH ×2 (16:33→21:12)
[2017-08-31 17:06] LABS: Glucose,Whole Blood 150 mg/dL (75-99)
--- NOTE | 2017-08-31 18:29 | PN ---
PROGRESS NOTE DATE OF SERVICE: 08/31/2017 PRESENTING COMPLAINT: Short of breath, cough. INTERVAL HISTORY: Patient presents with severe COPD exacerbation, still coughing up junky green-yellow sputum, tired. Appetite not the greatest, on oxygen. Weak and tired. REVIEW OF SYSTEMS: Done for constitutional, cardiovascular, GI, pulmonary; relevant findings as above. CURRENT MEDICATIONS: Reviewed that include: 1. DuoNeb. 2. Levaquin. 3. IV Solu-Medrol. PHYSICAL EXAMINATION: Afebrile, pulse 73, respirations 20, blood pressure 114/73, pulse ox 91% on 4L. GENERAL APPEARANCE: Lying in bed, tired appearing, awake. EYES: Pupils equal. Conjunctivae normal. HEENT: External nose and ears normal. Oral cavity normal. NECK: JVD not raised. Mass not palpable. RESPIRATORY: Effort increased. LUNGS: Poor air entry. Prolonged expiration. CARDIOVASCULAR: First and second sounds normal. No edema. ABDOMEN: Soft, nontender. Liver and spleen not palpable. PSYCHIATRY: Alert and oriented x3. Mood and affect anxious-appearing. INVESTIGATIONS: Accu-Cheks noted. Cultures pending sputum. ASSESSMENT: 1. Acute severe bilateral pneumonia, suspect gram-negative organism. Sepsis present on admission, slow to respond. Patient still bringing up thick, chunky sputum. 2. Acute chronic obstructive pulmonary disease exacerbation in a current smoker, slow to respond. 3. Acute hypoxic and hypercapnic respiratory failure from above. 4. Chronic nicotine dependence. Patient active cigarette smoker. 5. Hyperlipidemia. 6. Essential hypertension. 7. 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 Goins. 8. Chronic bilateral lower extremity leg cramps. PLAN: Continue patient on Levaquin, nebulized bronchodilators, IV steroids. The patient is definitely slow to respond. Await sputum cultures. Will increase the frequency of DuoNeb to every 4 hours. MMODL / IJN: [id number] /
[2017-08-31 20:42] LABS: Glucose,Whole Blood 145 mg/dL (75-99)
[2017-08-31] MEDS: ATORVASTATIN 40 MG TAB PO SCH (22:06)
[2017-08-31] MEDS: guaiFENesin 600 MG TABLET.ER PO SCH (22:20)
[2017-08-31] MEDS: guaiFENesin-DM 100-10MG/5ML 10 ML CUP PO PRN (22:20)
[2017-09-01] MEDS: IPRATROPIUM-ALBUTEROL 3 ML NEB INHALATION SCH ×7 (01:14→23:42)
[2017-09-01] MEDS: methylPREDNISolone SOD SUCCI 125 MG/2 ML VIAL IV SCH ×4 (06:36→23:35)
[2017-09-01] MEDS: guaiFENesin-DM 100-10MG/5ML 10 ML CUP PO PRN (06:39)
[2017-09-01] MEDS: SYMBICORT 160-4.5 MCG INHALER INHALATION SCH ×2 (07:14→19:21)
[2017-09-01 07:19] LABS: Glucose,Whole Blood 160 mg/dL (75-99)
[2017-09-01] MEDS: LEVOFLOXACIN 750 MG TAB PO SCH (07:30)
[2017-09-01] MEDS: INSULIN ASPART 100 UNIT/ML 1 ML 10 ML VIAL SQ SCH ×4 (07:30→21:19)
[2017-09-01] MEDS: guaiFENesin 600 MG TABLET.ER PO SCH ×2 (07:30→19:41)
[2017-09-01] MEDS: LISINOPRIL 20 MG TAB PO SCH (07:30)
[2017-09-01] MEDS: METOPROLOL TARTRATE 25 MG TAB PO SCH (07:30)
[2017-09-01] MEDS: NICOTINE 21MG/24HR PATCH TRANSDERM SCH (07:31)
[2017-09-01] MEDS: ENOXAPARIN 40 MG/0.4 ML SYRINGE SQ SCH (07:31)
[2017-09-01] MEDS: amLODIPine 5 MG TAB PO SCH (11:03)
[2017-09-01 12:27] LABS: Glucose,Whole Blood 103 mg/dL (75-99)
--- NOTE | 2017-09-01 13:24 | P.PN ---
Subjective Progress Note Date: 09/01/17 65-year-old male patient, known history of advanced COPD with an FEV1 of 34% of predicted, a chronic smoker who cares also a [id number] smoking history, who has been maintained on a combination of DuoNeb nebulized treatments around the clock and Ventolin rescue inhaler, presented to the hospital because of increased cough, purulent sputum, increased shortness of breath and chills and progressive increase in dyspnea. A computed tomography scan of the chest was done and showed bilateral noted a pulmonary infiltrates which was not present on previous CAT scan imaging. This is obviously new finding compared to last year and is suspicion for an infectious pneumonia was raised. For that reason the patient was hospitalized. No altered mentation. No pleurisy. No major swelling in the lower extremities. Currently is on a combination of bronchodilators and steroids and antibiotics. No nausea. No vomiting. No emesis.Note that the patient was in the hospital in February 2017 for chest pain. He underwent a cardiac catheterization and he was found to have mild triple-vessel coronary artery disease and the patient's ejection fraction was at 50% and the patient's left ventricular end diastolic pressure was 8. The patient had a moderate LVH. No stents were inserted and the patient was asked to proceed with medical treatment. During the same hospital stay, the patient had a CT angios the chest that showed no evidence of pneumonia or lung masses. His pulse ox was dropping below 90% and he was given home O2. He is using his oxygen on and off whenever he feels that his pulse ox is dropping below 90%. The patient is also status post endovascular stent grafting for an abdominal aortic aneurysm. The patient is seen again today 08/31/2017 in follow-up on the selective care unit. He is awake and alert in no acute distress. He is somewhat dyspneic with minimal exertion. He continues with a productive cough of pale yellow sputum. He is maintaining O2 saturations in the low 90s on 4 L/m per nasal cannula. He is currently afebrile. Sputum cultures pending. Influenza screen is negative. On 1017, the patient is much improved compared to yesterday. Sputum cultures of been negative. Less focused spastic and wheezy. He is able to speak of. This is. Addition of Mucinex DM help with a chest congestion. He is less bronchospastic and wheezy and the patient is much improved. He is ambulating. We are going to start weaning down the FiO2 knowing that the patient is currently out 5 L by nasal cannula. Influenza screen was negative. A follow- up chest x-ray recently obtain for tomorrow Data the patient had bilateral nodular pulmonary infiltration. Objective - Vital Signs Vital signs: Vital Signs Temp 97.0 F L 09/01/17 06:34 Pulse 75 09/01/17 11:00 Resp 16 09/01/17 06:34 BP 121/77 09/01/17 10:58 Pulse Ox 92 L 09/01/17 12:32 Intake & Output 08/31/17 09/01/17 09/01/17 18:59 06:59 18:59 Output Total 300 400 Balance -300 -400 Weight 86 kg Output: Urine 300 400 Other: Voiding Method Toilet Urinal # Voids 2 1 - Exam GENERAL EXAM: Alert, fairly comfortable in no apparent distress. HEAD: Normocephalic. EYES: Normal reaction of pupils, equal size. NOSE: Clear with pink turbinates. THROAT: No erythema or exudates. NECK: No masses, no JVD. CHEST: No chest wall deformity. LUNGS: Equal air entry with bilateral end expiratory wheeze. Few scattered rhonchi. Diminished. CVS: S1 and S2 normal with no audible murmur, regular rhythm. ABDOMEN: No hepatosplenomegaly, normal bowel sounds, no guarding or rigidity. SPINE: No scoliosis or deformity SKIN: No rashes CENTRAL NERVOUS SYSTEM: No focal deficits, tone is normal in all 4 extremities. EXTREMITIES: There is no peripheral edema. No clubbing, no cyanosis. Peripheral pulses are intact. - Labs CBC & Chem 7: 08/29/17 14:50 08/29/17 14:50 Labs: Abnormal Lab Results - Last 24 Hours (Table) 08/31/17 08/31/17 09/01/17 Range/Units 16:54 20:40 07:10 POC Glucose (mg/dL) 150 H 145 H 160 H (75-99) mg/dL 09/01/17 Range/Units 12:09 POC Glucose (mg/dL) 103 H (75-99) mg/dL Microbiology - Last 24 Hours (Table) 08/30/17 06:15 Gram Stain - Final Sputum Sputum Culture - Final Assessment and Plan Plan: Assessment 1 acute COPD exacerbation with secondary shortness of breath, improving 2 coarse bilateral pulmonary infiltrates, a new findings in the mid and lower lung jean there were NO previous CAT scan images. Rule out underlying acute pneumonia, likely atypical viral/atypical microorganism need to be considered. Acute bronchiolitis other viral in nature needs to be considered, improving 3 severe COPD with baseline with an FEV1 of 36% of predicted 4 chronic hypoxic respiratory failure 5 history of smoking 6 coronary artery disease with triple-vessel involvement and a preserved LV function 7 hypertension 8 hyperlipidemia 9 abdominal aortic aneurysm status post and vascular stent grafting 10 comorbidities all as mentioned above.. Plan The cultures of been negative. Repeat chest x-ray in the morning. Clinically improved. Continue IV Solu-Medrol. Continue bronchodilators. Continue Levaquin. Ambulate in the hallway. Wean down the FiO2. We'll follow. Possible discharge in a.m.
[2017-09-01 17:20] LABS: Glucose,Whole Blood 140 mg/dL (75-99)
--- NOTE | 2017-09-01 18:24 | PN ---
PROGRESS NOTE DATE OF SERVICE: 09/01/17. PRESENTING COMPLAINT: Short of breath, cough. INTERVAL HISTORY: Patient admitted with severe COPD exacerbation. Breathing a shade better. Eating a bit. Still coughing up thick green-yellow sputum. The patient in bed. REVIEW OF SYSTEMS: Done for constitutional, cardiovascular, GI, pulmonary; relevant findings as above. CURRENT MEDICATIONS: Reviewed that include Levaquin, IV Solu-Medrol. PHYSICAL EXAMINATION: Temperature 96.5, pulse 86, respiratory 18, blood pressure 147/77, pulse ox 93% on 3 L. GENERAL APPEARANCE: Lying in bed, awake, less tired appearing. EYES: Pupils equal. Conjunctivae normal. HEENT: External nose and ears normal. Oral cavity normal. NECK: JVD not raised. Mass not palpable. RESPIRATORY: Effort increased. Lungs, poor air entry. CARDIOVASCULAR: First and second sounds, no edema. ABDOMEN: Soft, nontender. Liver and spleen not palpable. PSYCHIATRY: Alert and oriented x3. Mood and affect normal. INVESTIGATIONS: Accu-Cheks are noted. Sputum cultures grew normal respiratory anum. ASSESSMENT: 1. Acute severe bilateral pneumonia suspect gram-negative organism with sepsis on presentation. The patient still has been bringing up thick yellow-green sputum. The amount is slowly coming down. 2. Acute chronic obstructive pulmonary disease exacerbation in a current smoker, slow to respond. 3. Acute hypoxic hypercapnic respiratory failure from above. 4. Chronic nicotine dependence. Patient is active cigarette smoker. 5. Hyperlipidemia. 6. Essential hypertension. 7. 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 Goins. 8. Chronic bilateral lower extremity/leg cramps. PLAN: Continue patient on current medication and treatment plan. Care was discussed with the patient and did talk to nurses. Send out for repeat sputum for Gram stain and culture. Follow. MMODL / IJN: [id number] /
[2017-09-01] MEDS: ATORVASTATIN 40 MG TAB PO SCH (19:41)
[2017-09-01 20:54] LABS: Glucose,Whole Blood 174 mg/dL (75-99)
[2017-09-02] MEDS: IPRATROPIUM-ALBUTEROL 3 ML NEB INHALATION SCH ×4 (03:23→15:38)
[2017-09-02] MEDS: methylPREDNISolone SOD SUCCI 125 MG/2 ML VIAL IV SCH ×2 (05:00→11:10)
[2017-09-02 06:25] VITALS: BP 154/93; RESP 20; TEMP 97.1
[2017-09-02] MEDS: SYMBICORT 160-4.5 MCG INHALER INHALATION SCH (07:33)
[2017-09-02 07:53] LABS: Glucose,Whole Blood 140 mg/dL (75-99)
[2017-09-02] MEDS: NICOTINE 21MG/24HR PATCH TRANSDERM SCH (07:53)
[2017-09-02] MEDS: guaiFENesin 600 MG TABLET.ER PO SCH (07:53)
[2017-09-02] MEDS: METOPROLOL TARTRATE 25 MG TAB PO SCH (07:53)
[2017-09-02] MEDS: LISINOPRIL 20 MG TAB PO SCH (07:53)
[2017-09-02] MEDS: ENOXAPARIN 40 MG/0.4 ML SYRINGE SQ SCH (07:53)
[2017-09-02] MEDS: LEVOFLOXACIN 750 MG TAB PO SCH (07:53)
[2017-09-02] MEDS: INSULIN ASPART 100 UNIT/ML 1 ML 10 ML VIAL SQ SCH ×2 (07:53→13:20)
[2017-09-02] MEDS ORDERED: ACETAMINOPHEN TAB 325 MG TAB PO PRN (07:56)
--- NOTE | 2017-09-02 08:15 | XR ---
EXAMINATION TYPE: XR chest 2V DATE OF EXAM: 09/02/2017 COMPARISON: 08/29/2018 HISTORY: Shortness of breath TECHNIQUE: Frontal and lateral views of the chest are obtained. FINDINGS: There is increasing central lung markings throughout, with slight improved aeration of the peripheral left lung in comparison to the prior exam of 08/29/2017. New multifocal left midlung perip heral platelike subsegmental atelectasis is noted. Cardiomediastinal silhouette is nonenlarged. No ne w pleural effusion or pneumothorax. Left apical pleural parenchymal scarring is noted. IMPRESSION: 1. Persistent increased interstitial lung markings that can be seen in atypical pneumonitis, fluid ov erload, or bronchitis. 2. No new focal consolidation to suggest pneumonia. Overall improved aeration of the peripheral left lung.
[2017-09-02] MEDS: amLODIPine 5 MG TAB PO SCH (11:10)
--- NOTE | 2017-09-02 13:25 | P.PN ---
Subjective Progress Note Date: 09/02/17 Principal diagnosis: Acute COPD exacerbation and acute bilateral community-acquired pneumonia. 65-year-old male patient, known history of advanced COPD with an FEV1 of 34% of predicted, a chronic smoker who cares also a [id number] smoking history, who has been maintained on a combination of DuoNeb nebulized treatments around the clock and Ventolin rescue inhaler, presented to the hospital because of increased cough, purulent sputum, increased shortness of breath and chills and progressive increase in dyspnea. A computed tomography scan of the chest was done and showed bilateral noted a pulmonary infiltrates which was not present on previous CAT scan imaging. This is obviously new finding compared to last year and is suspicion for an infectious pneumonia was raised. For that reason the patient was hospitalized. No altered mentation. No pleurisy. No major swelling in the lower extremities. Currently is on a combination of bronchodilators and steroids and antibiotics. No nausea. No vomiting. No emesis.Note that the patient was in the hospital in February 2017 for chest pain. He underwent a cardiac catheterization and he was found to have mild triple-vessel coronary artery disease and the patient's ejection fraction was at 50% and the patient's left ventricular end diastolic pressure was 8. The patient had a moderate LVH. No stents were inserted and the patient was asked to proceed with medical treatment. During the same hospital stay, the patient had a CT angios the chest that showed no evidence of pneumonia or lung masses. His pulse ox was dropping below 90% and he was given home O2. He is using his oxygen on and off whenever he feels that his pulse ox is dropping below 90%. The patient is also status post endovascular stent grafting for an abdominal aortic aneurysm. The patient is seen again today 08/31/2017 in follow-up on the selective care unit. He is awake and alert in no acute distress. He is somewhat dyspneic with minimal exertion. He continues with a productive cough of pale yellow sputum. He is maintaining O2 saturations in the low 90s on 4 L/m per nasal cannula. He is currently afebrile. Sputum cultures pending. Influenza screen is negative. On 4 1018, the patient is much improved compared to yesterday. Sputum cultures of been negative. Less focused spastic and wheezy. He is able to speak of. This is. Addition of Mucinex DM help with a chest congestion. He is less bronchospastic and wheezy and the patient is much improved. He is ambulating. We are going to start weaning down the FiO2 knowing that the patient is currently out 5 L by nasal cannula. Influenza screen was negative. A follow- up chest x-ray recently obtain for tomorrow Data the patient had bilateral nodular pulmonary infiltration. Reevaluated today on 09/02/2017, patient is feeling better, breathing a lot easier , no cough no wheezing no shortness of breath. He is definitely less bronchospastic, and he is feeling great compared to how he felt in the last few days. Labs and chest x-ray were reviewed the CT of the chest was also reviewed upon admission, I did show some worse nodular infiltrates, especially in the right middle lobe. Consistent with pneumonia. Objective - Vital Signs Vital signs: Vital Signs Temp 97.1 F L 09/02/17 06:24 Pulse 82 09/02/17 11:20 Resp 20 09/02/17 06:24 BP 154/93 09/02/17 06:24 Pulse Ox 89 L 09/02/17 07:37 Intake & Output 09/01/17 09/02/17 09/02/17 18:59 06:59 18:59 Output Total 100 Balance -100 Weight 86.5 kg Output: Urine 100 Other: Voiding Method Toilet Toilet Toilet Urinal # Voids 1 2 2 - Exam Physical Exam: Revealed a 67-year-old white male in no distress. HEENT:[Neck is supple.] [No neck masses.] [No thyromegaly.] [No JVD.] Chest: [Diminished breath sounds at the bases, no crackles, no rhonchi, no wheezes.] Cardiac Exam: [Normal S1 and S2, no S3 gallop, no murmur.] Abdomen: [Soft, nontender, no megaly, no rebound, no guarding, normal bowel sounds.] Extremities: [No clubbing, no edema, no cyanosis.] Neurological Exam: [No focal neurologic deficit. Lymphatics: No lymphadenopathy Psychiatric: Normal mood affect and mental status examination. Musculoskeletal: No deformities, normal range of motion.] - Labs CBC & Chem 7: 08/29/17 14:50 08/29/17 14:50 Labs: Abnormal Lab Results - Last 24 Hours (Table) 09/01/17 09/01/17 09/02/17 Range/Units 17:14 20:46 07:49 POC Glucose (mg/dL) 140 H 174 H 140 H (75-99) mg/dL Microbiology - Last 24 Hours (Table) 09/01/17 15:50 Gram Stain - Preliminary Sputum Sputum Culture - Preliminary 08/30/17 06:15 Gram Stain - Final Sputum Sputum Culture - Final Assessment and Plan Assessment: 1 acute COPD exacerbation with secondary shortness of breath, significantly improved 2 coarse bilateral pulmonary infiltrates, a new findings in the mid and lower lung jean there were NO previous CAT scan images. Consistent with pneumonia. Community-acquired. Or atypical. However considering the patient is responding to the present course of antibiotics, suggest continuing the same, and discharge him home on the same antibiotics, reevaluate in the office within a week. 3 severe COPD with baseline with an FEV1 of 36% of predicted 4 chronic hypoxic respiratory failure 5 history of smoking 6 coronary artery disease with triple-vessel involvement and a preserved LV function 7 hypertension 8 hyperlipidemia 9 abdominal aortic aneurysm status post and vascular stent grafting 10 comorbidities all as mentioned above.. Recommendation: Agree with discharge planning today, continue Levaquin and bronchodilators, follow-up with Dr. Gonzalez in one week. Time with Patient: Less than 30
[2017-09-02] MEDS ORDERED: predniSONE 20 MG TAB PO SCH (14:15)
[2017-09-02 15:47] VITALS: PULSE 84
--- NOTE | 2017-09-02 22:45 | DS ---
DISCHARGE SUMMARY DATE OF ADMISSION: 08/29/2017. DATE OF DISCHARGE: 09/02/2017 FINAL DIAGNOSES: 1. Acute severe bilateral pneumonia; suspect Gram-negative organism with sepsis, present on admission. 2. Acute chronic obstructive pulmonary disease exacerbation in a current smoker. 3. Acute hypoxic and hypercapnic respiratory failure from chronic obstructive pulmonary disease and pneumonia. 4. Chronic nicotine dependence. Patient is an active cigarette smoker. 5. Hyperlipidemia. 6. Essential hypertension. 7. 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 Goins. 8. Chronic bilateral lower extremity leg cramps. HOSPITAL COURSE: This patient, a smoker, presented with severe COPD exacerbation, bilateral pneumonia. Patient's cultures were unremarkable. The patient responded well to current antibiotics. Seen by Dr. Soria today. Patient is therefore being discharged. Patient is tolerating a diet and overall feeling much better. PHYSICAL EXAMINATION: LUNGS: Decreased breath sounds. CARDIOVASCULAR: First and second sounds normal. Patient again reminded about not to smoke. DISCHARGE MEDICATIONS: 1. Ventolin HFA 2 puffs q.4 p.r.n. 2. Lipitor 40 mg at bedtime. 3. Symbicort 160/4.5 two puffs daily. 4. DuoNeb q.i.d. p.r.n. 5. Norvasc 5 mg p.o. daily. 6. Zestril 20 mg p.o. daily. 7. Lopressor 25 mg p.o. daily. 8. Levaquin 750 mg p.o. daily; 3 tablets. 9. Nicotine 20 mg patch. 10.Prednisone taper. FOLLOWUP: 1. Follow up with Dr. Rodriguez in 3 days. 2. Follow up with Dr. Gonzalez on 09/12/2017. Home oxygen to continue. MMODL / IJN: [id number] /
== END 2017-09-02 15:56 | disposition home or self-care (01) | DRG 871 ==
LOC: EC 13:57 → 6SEL 17:15 → 4MS4W 08-31 18:24
PROVIDERS: ADMIT Hospitalist; ATTEND Hospitalist
DX: A41.9 Sepsis, unspecified organism (principal); J15.6 Pneumonia due to other Gram-negative bacteria; J96.21 Acute and chronic respiratory failure with hypoxia; D89.89 Other specified disorders involving the immune mechanism, not elsewhere classified; I11.9 Hypertensive heart disease without heart failure; J96.22 Acute and chronic respiratory failure with hypercapnia; J44.0 Chronic obstructive pulmonary disease with (acute) lower respiratory infection; J44.1 Chronic obstructive pulmonary disease with (acute) exacerbation; E78.5 Hyperlipidemia, unspecified; Z96.1 Presence of intraocular lens; F17.210 Nicotine dependence, cigarettes, uncomplicated; R25.2 Cramp and spasm; R21 Rash and other nonspecific skin eruption; I25.10 Atherosclerotic heart disease of native coronary artery without angina pectoris; Z79.51 Long term (current) use of inhaled steroids; Z79.899 Other long term (current) drug therapy; Z80.9 Family history of malignant neoplasm, unspecified; Z82.49 Family history of ischemic heart disease and other diseases of the circulatory system; Z86.79 Personal history of other diseases of the circulatory system; Z87.442 Personal history of urinary calculi; Z98.41 Cataract extraction status, right eye; Z88.0 Allergy status to penicillin; Z98.890 Other specified postprocedural states
CPT/HCPCS: 36415; 36600; 71046; 71275; 80053; 82550; 82553; 82805; 84484; 85025; 85379; 85610; 85730; 87070; 87205; 87502; 93005; 94640; 94760; 96360; 96361; 99291

== ENCOUNTER 2018-05-04 06:18 | Inpatient (IN) | payer MEDICARE, OTHER ==
[2018-05-04] MEDS ORDERED: IPRATROPIUM-ALBUTEROL 3 ML NEB INHALATION STA (06:37)
[2018-05-04 07:00] LABS: Basophils % (A) 0 %; Eosinophils # (A) 0.2 k/uL (0-0.7); Eosinophils % (A) 1 %; HCT 43.1 % (39.0-53.0); HGB 14.2 gm/dL (13.0-17.5); Lymphocytes % (A) 6 %; MCH 29.1 pg (25.0-35.0); MCV 88.1 fL (80.0-100.0); Monocytes % (A) 6 %; Neutrophils # (A) 14.8 k/uL (1.3-7.7); Neutrophils % (A) 86 %; Platelet Count 244 k/uL (150-450); RDW 13.7 % (11.5-15.5); WBC 17.2 k/uL (3.8-10.6)
--- NOTE | 2018-05-04 07:09 | XR ---
EXAMINATION TYPE: XR chest 1V portable DATE OF EXAM: 05/04/2018 COMPARISON: 09/12/2017 HISTORY: Chest pain TECHNIQUE: Single frontal view of the chest is obtained. FINDINGS: There is coarsening of the lung markings. Heart size is normal. Thoracic aorta is atheroma tous. There is no pleural effusion. There are chest leads. Bony thorax is intact. IMPRESSION: No active cardiopulmonary disease. Pulmonary interstitial fibrotic changes. Chest appear s fairly stable compared to old exam.
[2018-05-04] MEDS ORDERED: methylPREDNISolone SOD SUCCI 125 MG/2 ML VIAL IV STA (07:11)
[2018-05-04 07:12] LABS: ALT 17 U/L (21-72); AST 16 U/L (17-59); Albumin 3.5 g/dL (3.5-5.0); Alkaline Phosphatase 89 U/L (38-126); Anion Gap 9 mmol/L; Blood Urea Nitrogen 13 mg/dL (9-20); Calcium 8.4 mg/dL (8.4-10.2); Carbon Dioxide 27 mmol/L (22-30); Chloride 101 mmol/L (98-107); Glucose 136 mg/dL (74-99); INR 1.2 (<1.2); Partial Thromboplastin Time 24.1 sec (22.0-30.0); Potassium 4.5 mmol/L (3.5-5.1); Prothrombin Time 11.3 sec (9.0-12.0); Sodium 137 mmol/L (137-145); Total Bilirubin 0.7 mg/dL (0.2-1.3); Total Protein 6.8 g/dL (6.3-8.2)
--- NOTE | 2018-05-04 07:15 | ED ---
General Adult HPI - General Chief complaint: Shortness of Breath Stated complaint: Shortness of Breath Time Seen by Provider: 05/04/18 07:00 Source: EMS, RN notes reviewed Mode of arrival: EMS Limitations: no limitations - History of Present Illness Initial comments: This is a 67-year-old male who presents emergency department with past history significant for COPD. Patient states she continues to smoke. Patient states she started having difficulty breathing about 12 hours ago his oxygenation was dipping down to 80s at home. Patient states he put himself on a couple liters and he was still 91% having hard time breathing so decided come the emergency department. Patient denies any fever chills or new cough. Patient states he has no sputum production. Patient denies any chest pain. Patient denies any palpitations. Patient denies any abdominal pain patient denies nausea or vomiting. Patient denies lightheadedness dizziness or nursing about so. Patient denies any leg swelling or calf tenderness. Patient denies any recent injury or fall. Patient states he's taking treatments at home but they did not help. - Related Data Home Medications Medication Instructions Recorded Confirmed Albuterol Inhaler [Ventolin Hfa 2 puff INHALATION RT-Q4H PRN 03/02/16 08/29/17 Inhaler] Atorvastatin [Lipitor] 40 mg PO HS 03/02/16 08/29/17 Budesonide-Formot 160-4.5 Mcg 2 puff INHALATION RT-DAILY 03/02/16 08/29/17 [Symbicort 160-4.5 Mcg Inhaler] Ipratropium-Albuterol Nebulize 3 ml INHALATION RT-QID PRN 02/20/17 08/29/17 [Duoneb 0.5 mg-3 mg/3 ml Soln] Lisinopril [Zestril] 20 mg PO DAILY 08/29/17 08/29/17 Metoprolol Tartrate [Lopressor] 25 mg PO DAILY 08/29/17 08/29/17 Previous Rx's Medication Instructions Recorded amLODIPine [Norvasc] 5 mg PO DAILY@1200 #30 tab 02/23/17 Levofloxacin [Levaquin] 750 mg PO DAILY #3 tab 09/02/17 Nicotine 21Mg/24Hr Patch [Habitrol] 1 patch TRANSDERM DAILY #30 patch 09/02/17 predniSONE 10 mg PO DAILY #30 tab 09/02/17 Allergies Allergy/AdvReac Type Severity Reaction Status Date / Time Penicillins Allergy Rash/Hives Verified 05/04/18 06:24 Review of Systems ROS Statement: Those systems with pertinent positive or pertinent negative responses have been documented in the HPI. ROS Other: All systems not noted in ROS Statement are negative. Past Medical History Past Medical History: COPD, Hyperlipidemia, Hypertension, Renal Disease Additional Past Medical History / Comment(s): Severe COPD, chronic hypoxic history failure, history of autoimmune disease currently under investigation by Dr. Goins, coronary artery disease with triple-vessel involvement, preserved LV function with an ejection fraction of 50% and moderate LVH, abdominal aortic aneurysm status post endovascular stent grafting, nephrolithiasis, bilateral leg cramps, left eardrum perforation, hyperlipidemia, hypertension History of Any Multi-Drug Resistant Organisms: None Reported Past Surgical History: Appendectomy, Ear Surgery, Heart Catheterization, Hernia Repair Additional Past Surgical History / Comment(s): Endovascular stent grafting of a abdominal aortic aneurysm. Facial reconstructive surgery. L ear surgery. Umbilical hernia. Colonoscopy-benign polypectomy. R cataract removed with lens. L eye had glass removed and lens placed. Past Anesthesia/Blood Transfusion Reactions: No Reported Reaction Additional Past Anesthesia/Blood Transfusion Reaction / Comment(s): Pt has never recieved blood. Past Psychological History: No Psychological Hx Reported Smoking Status: Current every day smoker Past Alcohol Use History: Occasional Past Drug Use History: None Reported - Past Family History Father Family Medical History: Myocardial Infarction ([place]) Additional Family Medical History / Comment(s): Father at age 75 yrs of a [place] Mother Family Medical History: Cancer Additional Family Medical History / Comment(s): Mother of metastatic cancer (unknown primary) at age 42 yrs. General Exam - General Exam Comments Initial Comments: GENERAL: Patient is well-developed and well-nourished. Patient is nontoxic and well- hydrated and is in mild distress. ENT: Neck is soft and supple. No significant lymphadenopathy is noted. Oropharynx is clear. Moist mucous membranes. Neck has full range of motion without eliciting any pain. EYES: The sclera were anicteric and conjunctiva were pink and moist. Extraocular movements were intact and pupils were equal round and reactive to light. Eyelids were unremarkable. PULMONARY: Patient has diffuse audible wheezing he is satting 91% on 4 L. Patient normally doesn't wear oxygen 24 hours a day. CARDIOVASCULAR: There is a regular rate and rhythm without any murmurs gallops or rubs. ABDOMEN: Soft and nontender with normal bowel sounds. No palpable organomegaly was noted. There is no palpable pulsatile mass. SKIN: Skin is clear with no lesions or rashes and otherwise unremarkable. NEUROLOGIC: Patient is alert and oriented x3. Cranial nerves II through XII are grossly intact. Motor and sensory are also intact. Normal speech, volume and content. Symmetrical smile. MUSCULOSKELETAL: Normal extremities with adequate strength and full range of motion. No lower extremity swelling or edema. No calf tenderness. LYMPHATICS: No significant lymphadenopathy is noted PSYCHIATRIC: Normal psychiatric evaluation. Limitations: no limitations Course Vital Signs 05/04/18 05/04/18 05/04/18 06:19 06:46 06:57 Temperature 98.5 F Pulse Rate 105 H 89 86 Respiratory 24 Rate Blood Pressure 147/80 O2 Sat by Pulse 83 L 91 L Oximetry 05/04/18 05/04/18 05/04/18 07:20 07:43 07:54 Temperature 98.5 F Pulse Rate 87 93 100 Respiratory 22 Rate Blood Pressure 126/81 O2 Sat by Pulse 93 L Oximetry Medical Decision Making - Medical Decision Making EKG shows sinus rhythm with occasional PAC at 99 bpm ND interval 228 QRSs 102 QT interval 362 QTC is 464. Patient's EKG shows no ST segment elevation or depression or T wave abnormalities are noted. There patient received 3 breathing treatments and Solu-Medrol. I went back and reevaluated when I took multiple oxygen he was still dropping into the 80s. Patient was kept on 4 L. Patient states she did feel better after the treatments but he was not back to his baseline. Chest x-ray showed no acute abnormalities. I spoke with Dr. Barfield he agreed to admit the patient admitted the patient I consult the lumber straightener. I continue the albuterol and steroids on the floor. - Lab Data Result diagrams: 05/04/18 06:44 05/04/18 06:44 Lab Results 05/04/18 05/04/18 05/04/18 Range/Units 06:44 06:44 06:44 WBC 17.2 H (3.8-10.6) k/uL RBC 4.90 (4.30-5.90) m/uL Hgb 14.2 (13.0-17.5) gm/dL Hct 43.1 (39.0-53.0) % MCV 88.1 (80.0-100.0) fL MCH 29.1 (25.0-35.0) pg MCHC 33.0 (31.0-37.0) g/dL RDW 13.7 (11.5-15.5) % Plt Count 244 (150-450) k/uL Neutrophils % 86 % Lymphocytes % 6 % Monocytes % 6 % Eosinophils % 1 % Basophils % 0 % Neutrophils # 14.8 H (1.3-7.7) k/uL Lymphocytes # 1.0 (1.0-4.8) k/uL Monocytes # 1.0 (0-1.0) k/uL Eosinophils # 0.2 (0-0.7) k/uL Basophils # 0.0 (0-0.2) k/uL PT (9.0-12.0) sec INR (<1.2) APTT (22.0-30.0) sec Sodium 137 (137-145) mmol/L Potassium 4.5 (3.5-5.1) mmol/L Chloride 101 (98-107) mmol/L Carbon Dioxide 27 (22-30) mmol/L Anion Gap 9 mmol/L BUN 13 (9-20) mg/dL Creatinine 0.63 L (0.66-1.25) mg/dL Est GFR (CKD-EPI)AfAm >90 (>60 ml/min/1.73 sqM) Est GFR (CKD-EPI)NonAf >90 (>60 ml/min/1.73 sqM) Glucose 136 H (74-99) mg/dL Calcium 8.4 (8.4-10.2) mg/dL Total Bilirubin 0.7 (0.2-1.3) mg/dL AST 16 L (17-59) U/L ALT 17 L (21-72) U/L Alkaline Phosphatase 89 (38-126) U/L Total Creatine Kinase 27 L (55-170) U/L CK-MB (CK-2) 0.6 (0.0-2.4) ng/mL CK-MB (CK-2) Rel Index 2.2 Troponin I 0.038 H* (0.000-0.034) ng/mL Total Protein 6.8 (6.3-8.2) g/dL Albumin 3.5 (3.5-5.0) g/dL 05/04/18 Range/Units 06:44 WBC (3.8-10.6) k/uL RBC (4.30-5.90) m/uL Hgb (13.0-17.5) gm/dL Hct (39.0-53.0) % MCV (80.0-100.0) fL MCH (25.0-35.0) pg MCHC (31.0-37.0) g/dL RDW (11.5-15.5) % Plt Count (150-450) k/uL Neutrophils % % Lymphocytes % % Monocytes % % Eosinophils % % Basophils % % Neutrophils # (1.3-7.7) k/uL Lymphocytes # (1.0-4.8) k/uL Monocytes # (0-1.0) k/uL Eosinophils # (0-0.7) k/uL Basophils # (0-0.2) k/uL PT 11.3 (9.0-12.0) sec INR 1.2 H (<1.2) APTT 24.1 (22.0-30.0) sec Sodium (137-145) mmol/L Potassium (3.5-5.1) mmol/L Chloride (98-107) mmol/L Carbon Dioxide (22-30) mmol/L Anion Gap mmol/L BUN (9-20) mg/dL Creatinine (0.66-1.25) mg/dL Est GFR (CKD-EPI)AfAm (>60 ml/min/1.73 sqM) Est GFR (CKD-EPI)NonAf (>60 ml/min/1.73 sqM) Glucose (74-99) mg/dL Calcium (8.4-10.2) mg/dL Total Bilirubin (0.2-1.3) mg/dL AST (17-59) U/L ALT (21-72) U/L Alkaline Phosphatase (38-126) U/L Total Creatine Kinase (55-170) U/L CK-MB (CK-2) (0.0-2.4) ng/mL CK-MB (CK-2) Rel Index Troponin I (0.000-0.034) ng/mL Total Protein (6.3-8.2) g/dL Albumin (3.5-5.0) g/dL Critical Care Time Critical Care Time: Yes Total Critical Care Time: 35 Disposition Clinical Impression: Acute exacerbation of chronic obstructive airways disease Disposition: ADMITTED IP TO THIS HOSP Referrals: Jamie Balderas DO [Primary Care Provider] - 1-2 days Time of Disposition: 09:34
[2018-05-04] MEDS: ALBUTEROL NEBULIZED 7.5 MG, IPRATROPIUM NEBULIZED 0.5 MG, SODIUM CHLORIDE 0.9% NEBULIZ ... INHALATION ONE ×6 (07:19→07:26)
[2018-05-04] MEDS: ALBUTEROL NEBULIZED 2.5 MG/3 ML INHALATION STA ×3 (07:22→07:27)
[2018-05-04] MEDS: IPRATROPIUM 0.5 MG/2.5 ML NEBU INHALATION STA ×2 (07:22→07:27)
[2018-05-04] MEDS ORDERED: ALBUTEROL NEBULIZED 2.5 MG/3 ML INHALATION STA (07:23)
[2018-05-04 07:38] LABS: Creatine Kinase MB 0.6 ng/mL (0.0-2.4)
[2018-05-04 07:53] LABS: Troponin I 0.038 ng/mL (0.000-0.034)
[2018-05-04] MEDS: IPRATROPIUM-ALBUTEROL 3 ML NEB INHALATION PRN ×3 (11:59→20:33)
[2018-05-04] MEDS ORDERED: methylPREDNISolone SOD SUCCI 125 MG/2 ML VIAL IV SCH (12:00)
--- NOTE | 2018-05-04 13:17 | P.HPIM ---
History of Present Illness 67-year-old male who presents emergency department with past history significant for COPD. Patient states she continues to smoke. Patient states she started having difficulty breathing about 12 hours ago his oxygenation was dipping down to 80s at home. Patient states he put himself on a couple liters and he was still 91% having hard time breathing so decided come the emergency department. Patient denies any fever chills or new cough. Patient states he has no sputum production. Patient denies any chest pain. Patient denies any palpitations. Patient denies any abdominal pain patient denies nausea or vomiting. Patient denies lightheadedness dizziness or nursing about so. Patient denies any leg swelling or calf tenderness. Patient denies any recent injury or fall. Patient states he's taking treatments at home but they did not help. Patient is presently on 5 L of of oxygen. Patient on IV steroids which will cut down to 40 IV twice a day. Patient denied any fever chills there is no pneumonic infiltrate on the chest x-ray patient has mildly elevated troponin of 0.06 which is secondary to hypoxemia patient EKG showed some nonspecific ST-T wave changes in the anterior leads which are present in month of August as well. We'll repeat on the set of troponin to make sure troponins are not going up. His noncardiac elevation of troponin secondary to hypoxemia. She was started on doxepin for bronchitis. Review of Systems REVIEW OF SYSTEMS: CONSTITUTIONAL: No fever, no malaise, no fatigue. HEENT: No recent visual problems or hearing problems. Denied any sore throat. CARDIOVASCULAR: No chest pain, orthopnea, PND, no palpitations, no syncope. PULMONARY: As mentioned in HPI GASTROINTESTINAL: No diarrhea, no nausea, no vomiting, no abdominal pain. Normoactive bowel sounds. NEUROLOGICAL: No headaches, no weakness, no numbness. HEMATOLOGICAL: Denies any bleeding or petechiae. GENITOURINARY: Denies any burning micturition, frequency, or urgency. MUSCULOSKELETAL/RHEUMATOLOGICAL: Denies any joint pain, swelling, or any muscle pain. ENDOCRINE: Denies any polyuria or polydipsia. The rest of the 14-point review of systems is negative. Past Medical History Past Medical History: Asthma, COPD, Hyperlipidemia, Hypertension, Pneumonia, Renal Disease Additional Past Medical History / Comment(s): Severe COPD, chronic hypoxic history failure, history of autoimmune disease currently under investigation by Dr. Goins, coronary artery disease with triple-vessel involvement, preserved LV function with an ejection fraction of 50% and moderate LVH, abdominal aortic aneurysm status post endovascular stent grafting, nephrolithiasis, bilateral leg cramps, left eardrum perforation, hyperlipidemia, hypertension History of Any Multi-Drug Resistant Organisms: None Reported Past Surgical History: Appendectomy, Ear Surgery, Heart Catheterization, Hernia Repair Additional Past Surgical History / Comment(s): Endovascular stent grafting of a abdominal aortic aneurysm. Facial reconstructive surgery. L ear surgery. Umbilical hernia. Colonoscopy-benign polypectomy. R cataract removed with lens. L eye had glass removed and lens placed. Past Anesthesia/Blood Transfusion Reactions: No Reported Reaction Additional Past Anesthesia/Blood Transfusion Reaction / Comment(s): Pt has never recieved blood. Past Psychological History: No Psychological Hx Reported Additional Psychological History / Comment(s): Pt resides with his spouse. He is normally independent. He has a nebulizer at home. He drives. Smoking Status: Current every day smoker Past Alcohol Use History: Occasional Additional Past Alcohol Use History / Comment(s): Pt started smoking in 1961. Pt states he is down to 5 cigarettes a day. Past Drug Use History: None Reported - Past Family History Father Family Medical History: Myocardial Infarction ([place]) Additional Family Medical History / Comment(s): Father at age 75 yrs of a [place] Mother Family Medical History: Cancer Additional Family Medical History / Comment(s): Mother of metastatic cancer (unknown primary) at age 42 yrs. Medications and Allergies Home Medications Medication Instructions Recorded Confirmed Type Albuterol Inhaler [Ventolin Hfa 2 puff INHALATION RT-Q4H PRN 03/02/16 05/04/18 History Inhaler] amLODIPine [Norvasc] 5 mg PO DAILY@1200 #30 tab 02/23/17 05/04/18 Rx Albuterol Nebulized [Ventolin 2.5 mg INHALATION QID 05/04/18 05/04/18 History Nebulized] Aspirin EC [Ecotrin Low Dose] 81 mg PO DAILY 05/04/18 05/04/18 History Atorvastatin [Lipitor] 80 mg PO HS 05/04/18 05/04/18 History Lisinopril [Zestril] 10 mg PO BID 05/04/18 05/04/18 History Metoprolol Succinate (ER) [Toprol 100 mg PO DAILY 05/04/18 05/04/18 History Xl] Allergies Allergy/AdvReac Type Severity Reaction Status Date / Time Penicillins Allergy Rash/Hives Verified 05/04/18 06:24 Physical Exam Vitals: Vital Signs Temp Pulse Pulse Resp BP BP Pulse Ox 05/04/18 12:11 85 05/04/18 12:00 97.7 F 79 87 17 120/75 131/77 91 L 05/04/18 11:00 86 22 123/80 91 L 05/04/18 10:58 85 22 123/80 95 05/04/18 10:00 89 22 129/81 93 L 05/04/18 09:00 98 22 131/77 91 L 05/04/18 08:00 104 H 24 126/81 91 L 05/04/18 07:54 98.5 F 100 22 126/81 93 L 05/04/18 07:43 93 05/04/18 07:20 87 05/04/18 07:00 87 22 140/79 92 L 05/04/18 06:57 86 05/04/18 06:46 89 91 L 05/04/18 06:23 147/80 82 L 05/04/18 06:19 98.5 F 105 H 24 147/80 83 L Intake and Output 05/03/18 05/04/18 05/04/18 22:59 06:59 14:59 Other: Weight 78.018 kg 78.018 kg PHYSICAL EXAMINATION: GENERAL: The patient is alert and oriented x3, not in any acute distress. Well developed, well nourished. HEENT: Pupils are round and equally reacting to light. EOMI. No scleral icterus. No conjunctival pallor. Normocephalic, atraumatic. No pharyngeal erythema. No thyromegaly. CARDIOVASCULAR: S1 and S2 present. No murmurs, rubs, or gallops. PULMONARY: There is extremely minimal air entry into bilateral lung jean although there is no wheezing ABDOMEN: Soft, nontender, nondistended, normoactive bowel sounds. No palpable organomegaly. MUSCULOSKELETAL: No joint swelling or deformity. EXTREMITIES: No cyanosis, clubbing, or pedal edema. NEUROLOGICAL: Gross neurological examination did not reveal any focal deficits. SKIN: No rashes. Results CBC & Chem 7: 05/04/18 06:44 05/04/18 06:44 Labs: Abnormal Lab Results - Last 24 Hours (Table) 05/04/18 05/04/18 05/04/18 Range/Units 06:44 06:44 06:44 WBC 17.2 H (3.8-10.6) k/uL Neutrophils # 14.8 H (1.3-7.7) k/uL INR (<1.2) Creatinine 0.63 L (0.66-1.25) mg/dL Glucose 136 H (74-99) mg/dL AST 16 L (17-59) U/L ALT 17 L (21-72) U/L Total Creatine Kinase 27 L (55-170) U/L Troponin I 0.038 H* (0.000-0.034) ng/mL 05/04/18 Range/Units 06:44 WBC (3.8-10.6) k/uL Neutrophils # (1.3-7.7) k/uL INR 1.2 H (<1.2) Creatinine (0.66-1.25) mg/dL Glucose (74-99) mg/dL AST (17-59) U/L ALT (21-72) U/L Total Creatine Kinase (55-170) U/L Troponin I (0.000-0.034) ng/mL Microbiology - Last 24 Hours (Table) 05/04/18 08:00 Sputum Culture - Preliminary Sputum Thrombosis Risk Factor Assmnt - Choose All That Apply Any of the Below Risk Factors Present?: Yes Each Risk Factor Represents 2 Points: Age 61-74 years Each Risk Factor Represents 3 Points: Family history of DVT/PE Thrombosis Risk Factor Assessment Total Risk Factor Score: 5 Thrombosis Risk Factor Assessment Level: High Risk Assessment and Plan Plan: Acute hypercapnic respiratory failure: Secondary to severe COPD exacerbation patient will be continued on systemic steroids inhalational treatments doxycycline. There is no evidence of pneumonia -Hypertension -Hyperlipidemia -Coronary artery disease -Minimally elevated troponin secondary to hypoxemia no evidence of acute myocardial infarction we'll repeat another set of troponin make sure it's not going up and patient will be transferred out of cardiac floor.
[2018-05-04 17:12] LABS: Glucose,Whole Blood 189 mg/dL (75-99)
[2018-05-04] MEDS: INSULIN ASPART 100 UNIT/ML 1 ML 10 ML VIAL SQ SCH ×2 (17:27→21:04)
[2018-05-04] MEDS: LISINOPRIL 10 MG TAB PO SCH (20:00)
[2018-05-04] MEDS: ATORVASTATIN 80 MG TAB PO SCH (20:00)
[2018-05-04] MEDS: methylPREDNISolone SOD SUCCI 40 MG/ML 1 ML VIAL IV SCH (20:01)
[2018-05-04] MEDS: HEPARIN SODIUM,PORCINE 5,000 UNIT/ML 1 ML VIAL SQ SCH (20:01)
[2018-05-04 20:58] LABS: Glucose,Whole Blood 146 mg/dL (75-99)
[2018-05-04] MEDS: DOXYCYCLINE 100 MG CAP PO SCH (21:01)
[2018-05-05] MEDS: IPRATROPIUM-ALBUTEROL 3 ML NEB INHALATION PRN ×3 (01:33→09:37)
--- NOTE | 2018-05-05 07:03 | XR ---
EXAMINATION TYPE: XR chest 1V portable DATE OF EXAM: 05/05/2018 COMPARISON: Yesterday HISTORY: Short of breath TECHNIQUE: Single frontal view of the chest is obtained. FINDINGS: There is coarse interstitial density in the lungs. Heart size is normal. There is no heart failure. Thoracic aorta is atheromatous. IMPRESSION: Pulmonary interstitial fibrosis. No change. No heart failure seen.
[2018-05-05 07:09] LABS: Glucose,Whole Blood 181 mg/dL (75-99)
[2018-05-05] MEDS: DOXYCYCLINE 100 MG CAP PO SCH ×2 (07:58→20:58)
[2018-05-05] MEDS: INSULIN ASPART 100 UNIT/ML 1 ML 10 ML VIAL SQ SCH ×4 (08:01→20:59)
[2018-05-05] MEDS: HEPARIN SODIUM,PORCINE 5,000 UNIT/ML 1 ML VIAL SQ SCH ×2 (08:41→20:59)
[2018-05-05] MEDS: methylPREDNISolone SOD SUCCI 40 MG/ML 1 ML VIAL IV SCH (08:41)
[2018-05-05] MEDS: ASPIRIN 81 MG PO SCH (08:41)
[2018-05-05] MEDS: METOPROLOL SUCCINATE (ER) 100 MG TAB.ER.24H PO SCH (08:41)
[2018-05-05] MEDS: LISINOPRIL 10 MG TAB PO SCH ×2 (08:41→20:59)
[2018-05-05] MEDS ORDERED: predniSONE 20 MG TAB PO SCH (09:00)
[2018-05-05 10:06] VITALS: BMI 25.0
[2018-05-05 11:20] LABS: Glucose,Whole Blood 143 mg/dL (75-99)
[2018-05-05] MEDS: amLODIPine 5 MG TAB PO SCH (13:09)
[2018-05-05 13:10] LABS: Hemoglobin A1C 5.6 % (4.0-6.0)
[2018-05-05] MEDS: IPRATROPIUM-ALBUTEROL 3 ML NEB INHALATION SCH ×3 (13:22→20:08)
--- NOTE | 2018-05-05 13:46 | P.PN ---
Subjective Progress Note Date: 05/05/18 67-year-old male who presents emergency department with past history significant for COPD. Patient states she continues to smoke. Patient states she started having difficulty breathing about 12 hours ago his oxygenation was dipping down to 80s at home. Patient states he put himself on a couple liters and he was still 91% having hard time breathing so decided come the emergency department. Patient denies any fever chills or new cough. Patient states he has no sputum production. Patient denies any chest pain. Patient denies any palpitations. Patient denies any abdominal pain patient denies nausea or vomiting. Patient denies lightheadedness dizziness or nursing about so. Patient denies any leg swelling or calf tenderness. Patient denies any recent injury or fall. Patient states he's taking treatments at home but they did not help. Patient is presently on 5 L of of oxygen. Patient on IV steroids which will cut down to 40 IV twice a day. Patient denied any fever chills there is no pneumonic infiltrate on the chest x-ray patient has mildly elevated troponin of 0.06 which is secondary to hypoxemia patient EKG showed some nonspecific ST-T wave changes in the anterior leads which are present in month of August as well. We'll repeat on the set of troponin to make sure troponins are not going up. His noncardiac elevation of troponin secondary to hypoxemia. She was started on doxepin for bronchitis. Above per Dr. Barfield, covering for Dr. Balderas 05/05/2018 Patient examined at the bedside with Dr. Balderas. Patient reports he continues to have shortness of breath although it has improved since admission. He remains on 8 L nasal cannula. The patient reports he does wear home oxygen as needed. He remains on IV steroids: 40 mg IV every 12 hours. He has remains on doxycycline. He is receiving nebulizer treatments. Patient reports he is leaving Saturday for a cruise and is worried he will not be discharged home and time per his vacation. PHYSICAL EXAM: GENERAL: This is a 67-year-old male in no apparent distress at the time of examination. Pleasant and cooperative. HEENT: Head is atraumatic, normocephalic. Pupils are equal, round, and reactive to light. Sclerae anicteric. Conjunctivae are clear. Mucus membranes of the mouth are moist. Neck is supple. RESPIRATORY: Expiratory wheezing noted. No rales noted. No use of accessory muscles. Patient maintaining oxygen saturation greater than 92%. No chest wall tenderness is noted on palpation or with deep breathing. CARDIOVASCULAR: Regular rate and rhythm. S1 and S2 noted. No systolic or diastolic murmur auscultated. No JVD noted. No S3 or S4 noted. GASTROINTESTINAL: No distention noted. Abdomen soft and round. Normal active bowel sounds auscultated x 4 quadrants. No pain or tenderness noted upon palpation. INTEGUMENTARY: No cyanosis. No jaundice. No rashes noted. No cellulitis noted. EXTREMITIES: 2+ peripheral pulses. No evidence of peripheral edema. No calf tenderness noted. NEUROLOGIC: Cranial nerves II-XII intact. PSYCHIATRIC: Awake, alert, and oriented X 3. Appropriate affect. Intact judgement and insight. ASSESSMENT: Acute exacerbation of chronic obstructive pulmonary disease Acute on chronic hypoxic and hypercapnic respiratory failure Hypertension Hyperlipidemia History of coronary artery disease Nicotine dependence, patient continues to smoke PLAN: Pulmonary on consult. Appreciate recommendations and input Continue nebulizer treatments Continue steroids Continue antibiotics Wean oxygen as tolerated Home meds as appropriate Monitor labs GI prophylaxis: Protonix 40 mg PO Daily DVT prophylaxis: Heparin 5000 units subcu every 12 hours Monitor vital signs and address as appropriate Discharge planning: Patient to return home when stable Further recommendations pending patient's course Nurse practitioner note has been reviewed by physician. Signing provider agrees with the documented findings, assessment, and plan of care. Objective - Vital Signs Vital signs: Vital Signs Temp 96.4 F L 05/05/18 06:07 Pulse 80 05/05/18 09:48 Resp 20 05/05/18 06:07 BP 114/65 05/05/18 06:07 Pulse Ox 91 L 05/05/18 09:03 Intake & Output 05/04/18 05/05/18 05/05/18 18:59 06:59 18:59 Intake Total 490 Output Total 450 300 Balance -450 190 Weight 78.018 kg 83.6 kg 83.6 kg Intake: Oral 490 Output: Urine 450 300 Other: # Voids 1 0 1 - Labs CBC & Chem 7: 05/04/18 06:44 05/04/18 06:44 Labs: Abnormal Lab Results - Last 24 Hours (Table) 05/04/18 05/04/18 05/05/18 Range/Units 16:53 20:56 07:05 POC Glucose (mg/dL) 189 H 146 H 181 H (75-99) mg/dL Microbiology - Last 24 Hours (Table) 05/04/18 08:00 Gram Stain - Preliminary Sputum Sputum Culture - Preliminary
[2018-05-05] MEDS: methylPREDNISolone SOD SUCCI 125 MG/2 ML VIAL IV SCH ×3 (14:36→23:18)
[2018-05-05 16:50] LABS: Glucose,Whole Blood 130 mg/dL (75-99)
--- NOTE | 2018-05-05 17:39 | P.CNPUL ---
History of Present Illness Consult date: 05/05/18 Reason for consult: dyspnea, COPD History of present illness: This is a 67-year-old male patient was known to me from previous office visits and hospitalizations. The patient has advanced COPD with an FEV1 of 34% of predicted and he has a chronic smoking history with a [id number] smoking history has been treated on outpatient basis with DuoNeb the right treatment [id number]. The patient was last hospitalized for COPD exacerbation back in August 2017. At that time the patient was treated successfully and he was discharged home without any complications. CAT scan of the chest that was done at that time showed no significant abnormalities other than his background COPD. The patient is coming in for increased dyspnea, cough, chest tightness and wheezing. His presentation is typical of COPD exacerbation. He is also bringing up copious amount of thick greenish sputum. Influenza screen has not been done yet. Chest x-ray history of any acute pulmonary infiltrates and there is no indication of underlying pneumonia at this point in time. He was using his nebulizer more frequently. Missed that he has been smoking approximately 10 cigarettes on a daily basis. No chest pain. No angina. No altered mentation. Previous echocardiogram from the preserved LV function with an ejection fraction of 50% Review of Systems Constitutional Constitutional: (fatigue and weakness) Eyes Eyes: no dry eyes, no vision change, no irritation ENMT Ears: no difficulty hearing, no ear pain Nose: no frequent nosebleeds, no nose problems, no sinus problems Mouth/Throat: no sore throat, no bleeding gums, no snoring, no dry mouth, no mouth ulcers, no oral abnormalities, no teeth problems Cardiovascular Cardiovascular: no chest pain, no arm pain on exertion, no shortness of breath when walking, no shortness of breath when lying down, no palpitations, no known heart murmur Respiratory Respiratory: cough, wheezing, shortness of breath Gastrointestinal Gastrointestinal: no abdominal pain, no nausea, no vomiting, no constipation, normal appetite, no diarrhea, not vomiting blood, no dyspepsia, no GERD Genitourinary Genitourinary: no incontinence, no difficulty urinating, no hematuria, no increased frequency Musculoskeletal Musculoskeletal: arthralgias/joint pain Integumentary Skin: (recurring skin rash) Neurologic Neurologic: no loss of consciousness, no weakness, no numbness, no seizures, no dizziness, no migraines, no headaches, no tremor Psychiatric Psych: no depression, no sleep disturbances, feeling safe in a relationship, no alcohol abuse, no anxiety, no hallucinations, no suicidal thoughts Endocrine Endocrine: no fatigue Hematologic/Lymphatic Hematologic/Lymphatic no swollen glands, no bruising, no excessive bleeding Allergic/Immunologic Allergy/Immunologic: no runny nose, no sinus pressure, no itching, no hives, no frequent sneezing Past Medical History Past Medical History: Asthma, COPD, Hyperlipidemia, Hypertension, Pneumonia, Renal Disease Additional Past Medical History / Comment(s): Severe COPD, chronic hypoxic history failure, history of autoimmune disease currently under investigation by Dr. Goins, coronary artery disease with triple-vessel involvement, preserved LV function with an ejection fraction of 50% and moderate LVH, abdominal aortic aneurysm status post endovascular stent grafting, nephrolithiasis, bilateral leg cramps, left eardrum perforation, hyperlipidemia, hypertension History of Any Multi-Drug Resistant Organisms: None Reported Past Surgical History: Appendectomy, Ear Surgery, Heart Catheterization, Hernia Repair Additional Past Surgical History / Comment(s): Endovascular stent grafting of a abdominal aortic aneurysm. Facial reconstructive surgery. L ear surgery. Umbilical hernia. Colonoscopy-benign polypectomy. R cataract removed with lens. L eye had glass removed and lens placed. Past Anesthesia/Blood Transfusion Reactions: No Reported Reaction Additional Past Anesthesia/Blood Transfusion Reaction / Comment(s): Pt has never recieved blood. Past Psychological History: No Psychological Hx Reported Additional Psychological History / Comment(s): Pt resides with his spouse. He is normally independent. He has a nebulizer at home. He drives. Smoking Status: Current every day smoker Past Alcohol Use History: Occasional Additional Past Alcohol Use History / Comment(s): Pt started smoking in 1961. Pt states he is down to 5 cigarettes a day. Past Drug Use History: None Reported - Past Family History Father Family Medical History: Myocardial Infarction ([place]) Additional Family Medical History / Comment(s): Father at age 75 yrs of a [place] Mother Family Medical History: Cancer Additional Family Medical History / Comment(s): Mother of metastatic cancer (unknown primary) at age 42 yrs. Medications and Allergies Home Medications Medication Instructions Recorded Confirmed Type Albuterol Inhaler [Ventolin Hfa 2 puff INHALATION RT-Q4H PRN 03/02/05/04/18 History Inhaler] amLODIPine [Norvasc] 5 mg PO DAILY@1200 #30 tab 02/23/17 05/04/18 Rx Albuterol Nebulized [Ventolin 2.5 mg INHALATION QID 05/04/18 05/04/18 History Nebulized] Aspirin EC [Ecotrin Low Dose] 81 mg PO DAILY 05/04/18 05/04/18 History Atorvastatin [Lipitor] 80 mg PO HS 05/04/18 05/04/18 History Lisinopril [Zestril] 10 mg PO BID 05/04/18 05/04/18 History Metoprolol Succinate (ER) [Toprol 100 mg PO DAILY 05/04/18 05/04/18 History Xl] Allergies Allergy/AdvReac Type Severity Reaction Status Date / Time Penicillins Allergy Rash/Hives Verified 05/04/18 06:24 Physical Exam Vitals: Vital Signs Temp Pulse Pulse Resp BP Pulse Ox 05/05/18 17:03 93 L 05/05/18 15:48 68 18 05/05/18 15:35 67 18 92 L 05/05/18 15:09 70 18 05/05/18 14:06 97.4 F L 70 18 104/62 95 05/05/18 13:33 80 05/05/18 13:22 76 05/05/18 09:48 80 05/05/18 09:38 88 05/05/18 09:03 91 L 05/05/18 06:07 96.4 F L 93 20 114/65 95 05/05/18 04:30 93 L 05/05/18 04:21 88 05/05/18 04:13 88 05/05/18 03:50 87 L 05/05/18 01:43 82 05/05/18 01:35 82 05/04/18 23:48 99.0 F 82 20 102/62 91 L 05/04/18 21:00 90 05/04/18 20:36 90 05/04/18 19:52 25 H 05/04/18 19:49 97.0 F L 83 25 H 131/75 93 L 05/04/18 17:59 92 05/04/18 17:49 92 Intake and Output 05/05/18 05/05/18 05/05/18 06:59 14:59 22:59 Intake Total 1330 Output Total 300 Balance 1030 Intake: Oral 1330 Output: Urine 300 Other: # Voids 0 1 Weight 83.6 kg 83.6 kg 83.6 kg Gen. appearance, comfortable likely distress and the patient is not using excessive muscle breathing. Head exam was generally normal. There was no scleral icterus or corneal arcus. Mucous membranes were moist. Neck was supple and without jugular venous distension, thyromegaly, or carotid bruits. Carotids were easily palpable bilaterally. There was no adenopathy. Lungs sounds are diminished bilaterally along with diffuse expiratory wheezes throughout the lung jean and prolongation of expiratory phase of breathing Cardiac exam revealed the PMI to be normally situated and sized. The rhythm was regular and no extrasystoles were noted during several minutes of auscultation. The first and second heart sounds were normal and physiologic splitting of the second heart sound was noted. There were no murmurs, rubs, clicks, or gallops. Abdominal exam revealed normal bowel sounds. The abdomen was soft, non-tender, and without masses, organomegaly, or appreciable enlargement of the abdominal aorta. Examination of the extremities revealed easily palpable radial, femoral and pedal pulses. There was no cyanosis, clubbing or edema. Examination of the skin revealed no evidence of significant rashes, suspicious appearing nevi or other concerning lesions. Neurologically awake and alert and there is no focal neurological deficit. Results - Laboratory Findings CBC and BMP: 05/04/18 06:44 05/04/18 06:44 PT/INR, D-dimer PT 11.3 sec (9.0-12.0) 05/04/18 06:44 INR 1.2 (<1.2) H 05/04/18 06:44 Abnormal lab findings: Abnormal Labs 05/04/18 05/04/18 05/04/18 06:44 06:44 06:44 WBC 17.2 H Neutrophils # 14.8 H INR Creatinine 0.63 L Glucose 136 H POC Glucose (mg/dL) AST 16 L ALT 17 L Total Creatine Kinase 27 L Troponin I 0.038 H* 05/04/18 05/04/18 05/04/18 06:44 16:53 20:56 WBC Neutrophils # INR 1.2 H Creatinine Glucose POC Glucose (mg/dL) 189 H 146 H AST ALT Total Creatine Kinase Troponin I 05/05/18 05/05/18 05/05/18 07:05 11:13 16:47 WBC Neutrophils # INR Creatinine Glucose POC Glucose (mg/dL) 181 H 143 H 130 H AST ALT Total Creatine Kinase Troponin I - Diagnostic Findings Chest x-ray: image reviewed Assessment and Plan Plan: Assessment 1 acute COPD exacerbation with secondary shortness of breath, rule out underlying taken bronchitis. Chest x-ray is free of any acute pulmonary infiltration or pneumonia. 2 dyspnea secondary to above, in addition to an acute hypoxic respiratory failure secondary to above 3 severe COPD with baseline with an FEV1 of 36% of predicted 4 chronic hypoxic respiratory failure 5 history of smoking 6 coronary artery disease with triple-vessel involvement and a preserved LV function 7 hypertension 8 hyperlipidemia 9 abdominal aortic aneurysm status post and vascular stent grafting 10 comorbidities all as mentioned above. 11 leukocytosis secondary to above Plan Check an influenza screen. Cover the patient with empiric antibiotic coverage with doxycycline. Sent sputum Gram stain and culture. Continue DuoNeb neb treatments around the clock. Continue IV Solu-Medrol. Outpatient indication was be resumed. We'll do cessation counseling was done. Prognosis poor, secondary to above-mentioned comorbidities. FiO2 has been weaned down to 5 L as the patient was quite hypoxic at a time of admission. He is improving. We' ll continue to follow.
[2018-05-05] MEDS: guaiFENesin 600 MG TABLET.ER PO SCH (18:23)
[2018-05-05 20:47] LABS: Glucose,Whole Blood 134 mg/dL (75-99)
[2018-05-05] MEDS: ATORVASTATIN 80 MG TAB PO SCH (20:59)
[2018-05-05] MEDS: guaiFENesin-Coden 100-10MG/5ML 10 ML CUP PO PRN (21:32)
[2018-05-06] MEDS: methylPREDNISolone SOD SUCCI 125 MG/2 ML VIAL IV SCH ×4 (05:31→23:58)
[2018-05-06] MEDS: guaiFENesin-Coden 100-10MG/5ML 10 ML CUP PO PRN ×2 (05:31→20:50)
[2018-05-06 07:06] LABS: Glucose,Whole Blood 145 mg/dL (75-99)
[2018-05-06] MEDS: PANTOPRAZOLE 40 MG TABLET PO SCH (07:35)
[2018-05-06] MEDS: METOPROLOL SUCCINATE (ER) 100 MG TAB.ER.24H PO SCH (07:35)
[2018-05-06] MEDS: DOXYCYCLINE 100 MG CAP PO SCH (07:35)
[2018-05-06] MEDS: HEPARIN SODIUM,PORCINE 5,000 UNIT/ML 1 ML VIAL SQ SCH ×2 (07:35→20:47)
[2018-05-06] MEDS: LISINOPRIL 10 MG TAB PO SCH ×2 (07:35→20:47)
[2018-05-06] MEDS: ASPIRIN 81 MG PO SCH (07:35)
[2018-05-06] MEDS: guaiFENesin 600 MG TABLET.ER PO SCH ×2 (07:35→20:47)
[2018-05-06] MEDS: INSULIN ASPART 100 UNIT/ML 1 ML 10 ML VIAL SQ SCH ×4 (07:36→22:07)
[2018-05-06] MEDS: IPRATROPIUM-ALBUTEROL 3 ML NEB INHALATION SCH ×4 (09:30→19:12)
--- NOTE | 2018-05-06 10:22 | P.PN ---
Subjective Progress Note Date: 05/06/18 67-year-old male who presents emergency department with past history significant for COPD. Patient states she continues to smoke. Patient states she started having difficulty breathing about 12 hours ago his oxygenation was dipping down to 80s at home. Patient states he put himself on a couple liters and he was still 91% having hard time breathing so decided come the emergency department. Patient denies any fever chills or new cough. Patient states he has no sputum production. Patient denies any chest pain. Patient denies any palpitations. Patient denies any abdominal pain patient denies nausea or vomiting. Patient denies lightheadedness dizziness or nursing about so. Patient denies any leg swelling or calf tenderness. Patient denies any recent injury or fall. Patient states he's taking treatments at home but they did not help. Patient is presently on 5 L of of oxygen. Patient on IV steroids which will cut down to 40 IV twice a day. Patient denied any fever chills there is no pneumonic infiltrate on the chest x-ray patient has mildly elevated troponin of 0.06 which is secondary to hypoxemia patient EKG showed some nonspecific ST-T wave changes in the anterior leads which are present in month of August as well. We'll repeat on the set of troponin to make sure troponins are not going up. His noncardiac elevation of troponin secondary to hypoxemia. She was started on doxepin for bronchitis. Above per Dr. Barfield, covering for Dr. Balderas 05/05/2018 Patient examined at the bedside with Dr. Balderas. Patient reports he continues to have shortness of breath although it has improved since admission. He remains on 8 L nasal cannula. The patient reports he does wear home oxygen as needed. He remains on IV steroids: 40 mg IV every 12 hours. He has remains on doxycycline. He is receiving nebulizer treatments. Patient reports he is leaving Saturday for a cruise and is worried he will not be discharged home and time per his vacation. 05/06/2018 Patient examined at the bedside. He states his shortness of breath has improved. His steroids were increased yesterday per pulmonary. He reports increased coughing overnight. He was started on Robitussin with codeine with improvement in his cough. PHYSICAL EXAM: GENERAL: This is a 67-year-old male in no apparent distress at the time of examination. Pleasant and cooperative. HEENT: Head is atraumatic, normocephalic. Pupils are equal, round, and reactive to light. Sclerae anicteric. Conjunctivae are clear. Mucus membranes of the mouth are moist. Neck is supple. RESPIRATORY: Expiratory wheezing noted, although improved since yesterday. No rales noted. No use of accessory muscles. Patient maintaining oxygen saturation greater than 92%. No chest wall tenderness is noted on palpation or with deep breathing. CARDIOVASCULAR: Regular rate and rhythm. S1 and S2 noted. No systolic or diastolic murmur auscultated. No JVD noted. No S3 or S4 noted. GASTROINTESTINAL: No distention noted. Abdomen soft and round. Normal active bowel sounds auscultated x 4 quadrants. No pain or tenderness noted upon palpation. INTEGUMENTARY: No cyanosis. No jaundice. No rashes noted. No cellulitis noted. EXTREMITIES: 2+ peripheral pulses. No evidence of peripheral edema. No calf tenderness noted. NEUROLOGIC: Cranial nerves II-XII intact. PSYCHIATRIC: Awake, alert, and oriented X 3. Appropriate affect. Intact judgement and insight. ASSESSMENT: Acute exacerbation of chronic obstructive pulmonary disease Acute on chronic hypoxic and hypercapnic respiratory failure Hypertension Hyperlipidemia History of coronary artery disease Nicotine dependence, patient continues to smoke PLAN: Pulmonary on consult. Appreciate recommendations and input Continue nebulizer treatments Continue steroids Continue antibiotics Wean oxygen as tolerated Home meds as appropriate Monitor labs GI prophylaxis: Protonix 40 mg PO Daily DVT prophylaxis: Heparin 5000 units subcu every 12 hours Monitor vital signs and address as appropriate Discharge planning: Patient to return home when stable Further recommendations pending patient's course Nurse practitioner note has been reviewed by physician. Signing provider agrees with the documented findings, assessment, and plan of care. Objective - Vital Signs Vital signs: Vital Signs Temp 96.2 F L 05/06/18 06:11 Pulse 76 05/06/18 09:31 Resp 20 05/06/18 06:11 BP 102/56 05/06/18 06:11 Pulse Ox 92 L 05/06/18 09:20 Intake & Output 05/05/18 05/06/18 05/06/18 18:59 06:59 18:59 Intake Total 1330 Output Total 300 650 Balance 1030 -650 Weight 83.6 kg Intake: Oral 1330 Output: Urine 300 650 Other: Voiding Method Urinal # Voids 1 1 - Labs CBC & Chem 7: 05/04/18 06:44 05/04/18 06:44 Labs: Abnormal Lab Results - Last 24 Hours (Table) 05/05/18 05/05/18 05/05/18 Range/Units 11:13 16:47 20:45 POC Glucose (mg/dL) 143 H 130 H 134 H (75-99) mg/dL 05/06/18 Range/Units 07:05 POC Glucose (mg/dL) 145 H (75-99) mg/dL
[2018-05-06 10:51] LABS: Basophils % (A) 0 %; Eosinophils # (A) 0.1 k/uL (0-0.7); Eosinophils % (A) 0 %; HCT 43.1 % (39.0-53.0); HGB 14.2 gm/dL (13.0-17.5); Lymphocytes # (A) 0.5 k/uL (1.0-4.8); Lymphocytes % (A) 3 %; MCHC 32.9 g/dL (31.0-37.0); Mean Platelet Volume 7.3; Monocytes # (A) 0.6 k/uL (0-1.0); Monocytes % (A) 4 %; Neutrophils # (A) 14.7 k/uL (1.3-7.7); Neutrophils % (A) 92 %; Platelet Count 328 k/uL (150-450); RBC 4.74 m/uL (4.30-5.90); RDW 13.9 % (11.5-15.5); WBC 16.1 k/uL (3.8-10.6)
[2018-05-06 10:59] LABS: ALT 23 U/L (21-72); AST 13 U/L (17-59); Albumin 3.5 g/dL (3.5-5.0); Alkaline Phosphatase 75 U/L (38-126); Anion Gap 7 mmol/L; Blood Urea Nitrogen 40 mg/dL (9-20); Calcium 9.7 mg/dL (8.4-10.2); Carbon Dioxide 33 mmol/L (22-30); Chloride 100 mmol/L (98-107); Glucose 123 mg/dL (74-99); Potassium 5.1 mmol/L (3.5-5.1); Sodium 140 mmol/L (137-145); Total Bilirubin 0.3 mg/dL (0.2-1.3); Total Protein 6.6 g/dL (6.3-8.2)
[2018-05-06] MEDS: amLODIPine 5 MG TAB PO SCH (12:15)
[2018-05-06 12:25] LABS: Glucose,Whole Blood 118 mg/dL (75-99)
--- NOTE | 2018-05-06 15:57 | P.PN ---
Subjective Progress Note Date: 05/06/18 Principal diagnosis: Acute COPD exacerbation, dyspnea, tracheobronchitis This is a 67-year-old male patient was known to me from previous office visits and hospitalizations. The patient has advanced COPD with an FEV1 of 34% of predicted and he has a chronic smoking history with a [id number] smoking history has been treated on outpatient basis with DuoNeb the right treatment [id number]. The patient was last hospitalized for COPD exacerbation back in August 2017. At that time the patient was treated successfully and he was discharged home without any complications. CAT scan of the chest that was done at that time showed no significant abnormalities other than his background COPD. The patient is coming in for increased dyspnea, cough, chest tightness and wheezing. His presentation is typical of COPD exacerbation. He is also bringing up copious amount of thick greenish sputum. Influenza screen has not been done yet. Chest x-ray history of any acute pulmonary infiltrates and there is no indication of underlying pneumonia at this point in time. He was using his nebulizer more frequently. Missed that he has been smoking approximately 10 cigarettes on a daily basis. No chest pain. No angina. No altered mentation. Previous echocardiogram from the preserved LV function with an ejection fraction of 50% On 05/06/2018 patient seen in follow-up on medical surgical floor. he is feeling a little better, breathing little easier, still has a congested cough, lung sounds are very diminished. Influenza screen was negative, sputum culture was positive for Haemophilus influenza. He is on IV steroids, and advised bronchodilators, today's lab work was reviewed, showed WBC of 16.1, hemoglobin of 14.2, CO2 is 33, the rest of electrolytes were within normal limits, BUN was 40, creatinine was 0.8. No fever no chills. No new chest x-rays. Objective - Vital Signs Vital signs: Vital Signs Temp 97.6 F 05/06/18 15:00 Pulse 71 05/06/18 15:34 Resp 18 05/06/18 15:34 BP 108/63 05/06/18 15:00 Pulse Ox 94 L 05/06/18 15:24 Intake & Output 05/05/18 05/06/18 05/06/18 18:59 06:59 18:59 Intake Total 1330 Output Total 300 650 Balance 1030 -650 Weight 83.6 kg Intake: Oral 1330 Output: Urine 300 650 Other: Voiding Method Urinal # Voids 1 1 1 - Exam Gen. appearance, comfortable likely distress and the patient is not using excessive muscle breathing. Head exam was generally normal. There was no scleral icterus or corneal arcus. Mucous membranes were moist. Neck was supple and without jugular venous distension, thyromegaly, or carotid bruits. Carotids were easily palpable bilaterally. There was no adenopathy. Lungs sounds are diminished bilaterally along throughout the lung jean and prolongation of expiratory phase of breathing Cardiac exam revealed the PMI to be normally situated and sized. The rhythm was regular and no extrasystoles were noted during several minutes of auscultation. The first and second heart sounds were normal and physiologic splitting of the second heart sound was noted. There were no murmurs, rubs, clicks, or gallops. Abdominal exam revealed normal bowel sounds. The abdomen was soft, non-tender, and without masses, organomegaly, or appreciable enlargement of the abdominal aorta. Examination of the extremities revealed easily palpable radial, femoral and pedal pulses. There was no cyanosis, clubbing or edema. Examination of the skin revealed no evidence of significant rashes, suspicious appearing nevi or other concerning lesions. Neurologically awake and alert and there is no focal neurological deficit. - Labs CBC & Chem 7: 05/06/18 10:17 05/06/18 10:17 Labs: Abnormal Lab Results - Last 24 Hours (Table) 05/05/18 05/05/18 05/06/18 Range/Units 16:47 20:45 07:05 WBC (3.8-10.6) k/uL Neutrophils # (1.3-7.7) k/uL Lymphocytes # (1.0-4.8) k/uL Carbon Dioxide (22-30) mmol/L BUN (9-20) mg/dL Glucose (74-99) mg/dL POC Glucose (mg/dL) 130 H 134 H 145 H (75-99) mg/dL AST (17-59) U/L 05/06/18 05/06/18 05/06/18 Range/Units 10:17 10:17 12:23 WBC 16.1 H (3.8-10.6) k/uL Neutrophils # 14.7 H (1.3-7.7) k/uL Lymphocytes # 0.5 L (1.0-4.8) k/uL Carbon Dioxide 33 H (22-30) mmol/L BUN 40 H (9-20) mg/dL Glucose 123 H (74-99) mg/dL POC Glucose (mg/dL) 118 H (75-99) mg/dL AST 13 L (17-59) U/L Microbiology - Last 24 Hours (Table) 05/04/18 08:00 Gram Stain - Final Sputum Sputum Culture - Final Haemophilus influenzae Assessment and Plan Plan: 1 acute COPD exacerbation with secondary shortness of breath, rule out underlying taken bronchitis. Chest x-ray is free of any acute pulmonary infiltration or pneumonia. 2 dyspnea secondary to above, in addition to an acute hypoxic respiratory failure secondary to above 3 severe COPD with baseline with an FEV1 of 36% of predicted 4 chronic hypoxic respiratory failure 5 history of smoking 6 coronary artery disease with triple-vessel involvement and a preserved LV function 7 hypertension 8 hyperlipidemia 9 abdominal aortic aneurysm status post and vascular stent grafting 10 comorbidities all as mentioned above. 11 leukocytosis secondary to above Plan: Influenza screen was negative. Patient is feeling a bit better, breathing easier, still gets quite dyspneic with any exertion, continue with IV Solu- Medrol, continue with nebulized bronchodilators, sputum culture was positive for Haemophilus influenza, we will switch to doxycycline to oral Zithromax 500 daily. His oxygen requirement is decreasing, not ready for discharge yet. He is improving, we'll continue to follow I performed a history & physical examination of the patient and discussed their management with my nurse practitioner, Mary Stewart. I reviewed the nurse practitioner's note and agree with the documented findings and plan of care. Lung sounds are positive for diminished breath sounds bilaterally. The findings and the impression was discussed with the patient. I attest to the documentation by the nurse practitioner. Time with Patient: Less than 30
[2018-05-06] MEDS: AZITHROMYCIN 500 MG TAB PO SCH (16:36)
[2018-05-06 16:38] LABS: Glucose,Whole Blood 133 mg/dL (75-99)
[2018-05-06] MEDS: ATORVASTATIN 80 MG TAB PO SCH (20:48)
[2018-05-06 21:44] LABS: Glucose,Whole Blood 158 mg/dL (75-99)
[2018-05-07] MEDS: methylPREDNISolone SOD SUCCI 125 MG/2 ML VIAL IV SCH (05:17)
[2018-05-07] MEDS: INSULIN ASPART 100 UNIT/ML 1 ML 10 ML VIAL SQ SCH ×4 (07:53→21:41)
[2018-05-07 07:54] LABS: Glucose,Whole Blood 115 mg/dL (75-99)
[2018-05-07] MEDS: AZITHROMYCIN 500 MG TAB PO SCH (08:30)
[2018-05-07] MEDS: METOPROLOL SUCCINATE (ER) 100 MG TAB.ER.24H PO SCH (08:30)
[2018-05-07] MEDS: PANTOPRAZOLE 40 MG TABLET PO SCH (08:30)
[2018-05-07] MEDS: guaiFENesin 600 MG TABLET.ER PO SCH ×2 (08:30→21:41)
[2018-05-07] MEDS: LISINOPRIL 10 MG TAB PO SCH ×2 (08:30→21:41)
[2018-05-07] MEDS: ASPIRIN 81 MG PO SCH (08:30)
[2018-05-07] MEDS: HEPARIN SODIUM,PORCINE 5,000 UNIT/ML 1 ML VIAL SQ SCH ×2 (08:31→21:42)
[2018-05-07] MEDS: IPRATROPIUM-ALBUTEROL 3 ML NEB INHALATION SCH ×4 (08:36→19:45)
[2018-05-07] MEDS: guaiFENesin-Coden 100-10MG/5ML 10 ML CUP PO PRN (08:43)
--- NOTE | 2018-05-07 09:17 | P.PN ---
Subjective Progress Note Date: 05/07/18 67-year-old male who presents emergency department with past history significant for COPD. Patient states she continues to smoke. Patient states she started having difficulty breathing about 12 hours ago his oxygenation was dipping down to 80s at home. Patient states he put himself on a couple liters and he was still 91% having hard time breathing so decided come the emergency department. Patient denies any fever chills or new cough. Patient states he has no sputum production. Patient denies any chest pain. Patient denies any palpitations. Patient denies any abdominal pain patient denies nausea or vomiting. Patient denies lightheadedness dizziness or nursing about so. Patient denies any leg swelling or calf tenderness. Patient denies any recent injury or fall. Patient states he's taking treatments at home but they did not help. Patient is presently on 5 L of of oxygen. Patient on IV steroids which will cut down to 40 IV twice a day. Patient denied any fever chills there is no pneumonic infiltrate on the chest x-ray patient has mildly elevated troponin of 0.06 which is secondary to hypoxemia patient EKG showed some nonspecific ST-T wave changes in the anterior leads which are present in month of August as well. We'll repeat on the set of troponin to make sure troponins are not going up. His noncardiac elevation of troponin secondary to hypoxemia. She was started on doxepin for bronchitis. Above per Dr. Barfield, covering for Dr. Balderas 05/05/2018 Patient examined at the bedside with Dr. Balderas. Patient reports he continues to have shortness of breath although it has improved since admission. He remains on 8 L nasal cannula. The patient reports he does wear home oxygen as needed. He remains on IV steroids: 40 mg IV every 12 hours. He has remains on doxycycline. He is receiving nebulizer treatments. Patient reports he is leaving Saturday for a cruise and is worried he will not be discharged home and time per his vacation. 05/06/2018 Patient examined at the bedside. He states his shortness of breath has improved. His steroids were increased yesterday per pulmonary. He reports increased coughing overnight. He was started on Robitussin with codeine with improvement in his cough. 05/07/2018 Patient examined at the bedside. Patient reports his breathing has significantly improved overnight. Also reports his cough has improved. He is currently on 4 L nasal cannula with oxygen saturations greater than 92%. He remains on IV steroids 60 mg every 6 hours. Sputum culture is positive for Haemophilus influenza. Antibiotics were switched to azithromycin per pulmonary. PHYSICAL EXAM: GENERAL: This is a 67-year-old male in no apparent distress at the time of examination. Pleasant and cooperative. HEENT: Head is atraumatic, normocephalic. Pupils are equal, round, and reactive to light. Sclerae anicteric. Conjunctivae are clear. Mucus membranes of the mouth are moist. Neck is supple. RESPIRATORY: Diminished. Expiratory wheezing improved. No rales noted. No use of accessory muscles. Patient maintaining oxygen saturation greater than 92 %. No chest wall tenderness is noted on palpation or with deep breathing. CARDIOVASCULAR: Regular rate and rhythm. S1 and S2 noted. No systolic or diastolic murmur auscultated. No JVD noted. No S3 or S4 noted. GASTROINTESTINAL: No distention noted. Abdomen soft and round. Normal active bowel sounds auscultated x 4 quadrants. No pain or tenderness noted upon palpation. INTEGUMENTARY: No cyanosis. No jaundice. No rashes noted. No cellulitis noted. EXTREMITIES: 2+ peripheral pulses. No evidence of peripheral edema. No calf tenderness noted. NEUROLOGIC: Cranial nerves II-XII intact. PSYCHIATRIC: Awake, alert, and oriented X 3. Appropriate affect. Intact judgement and insight. ASSESSMENT: Acute exacerbation of chronic obstructive pulmonary disease, sputum culture positive for Haemophilus influenza Acute on chronic hypoxic and hypercapnic respiratory failure Hypertension Hyperlipidemia History of coronary artery disease Nicotine dependence, patient continues to smoke PLAN: Pulmonary on consult. Appreciate recommendations and input Continue nebulizer treatments Continue steroids. We will decrease steroids today and attempt to transition to oral tomorrow. Possible discharge home tomorrow if patient continues to improve. He is scheduled to leave on a cruise this weekend, which he reports is his first vacation in 15 years. Continue antibiotics Wean oxygen as tolerated Home meds as appropriate Monitor labs GI prophylaxis: Protonix 40 mg PO Daily DVT prophylaxis: Heparin 5000 units subcu every 12 hours Monitor vital signs and address as appropriate Discharge planning: Patient to return home when stable Further recommendations pending patient's course Nurse practitioner note has been reviewed by physician. Signing provider agrees with the documented findings, assessment, and plan of care. Objective - Vital Signs Vital signs: Vital Signs Temp 97.5 F L 05/07/18 07:00 Pulse 94 05/07/18 08:48 Resp 20 05/07/18 07:00 BP 113/66 05/07/18 07:00 Pulse Ox 90 L 05/07/18 08:39 Intake & Output 05/06/18 05/07/18 05/07/18 18:59 06:59 18:59 Other: Voiding Method Urinal Urinal # Voids 1 1 - Labs CBC & Chem 7: 05/06/18 10:17 05/06/18 10:17 Labs: Abnormal Lab Results - Last 24 Hours (Table) 05/06/18 05/06/18 05/06/18 Range/Units 10:17 10:17 12:23 WBC 16.1 H (3.8-10.6) k/uL Neutrophils # 14.7 H (1.3-7.7) k/uL Lymphocytes # 0.5 L (1.0-4.8) k/uL Carbon Dioxide 33 H (22-30) mmol/L BUN 40 H (9-20) mg/dL Glucose 123 H (74-99) mg/dL POC Glucose (mg/dL) 118 H (75-99) mg/dL AST 13 L (17-59) U/L 05/06/18 05/06/18 05/07/18 Range/Units 16:36 21:40 07:53 WBC (3.8-10.6) k/uL Neutrophils # (1.3-7.7) k/uL Lymphocytes # (1.0-4.8) k/uL Carbon Dioxide (22-30) mmol/L BUN (9-20) mg/dL Glucose (74-99) mg/dL POC Glucose (mg/dL) 133 H 158 H 115 H (75-99) mg/dL AST (17-59) U/L Microbiology - Last 24 Hours (Table) 05/04/18 08:00 Gram Stain - Final Sputum Sputum Culture - Final Haemophilus influenzae
[2018-05-07] MEDS: amLODIPine 5 MG TAB PO SCH (12:11)
[2018-05-07 12:29] LABS: Glucose,Whole Blood 134 mg/dL (75-99)
[2018-05-07] MEDS: methylPREDNISolone SOD SUCCI 40 MG/ML 1 ML VIAL IV SCH (15:13)
--- NOTE | 2018-05-07 16:19 | P.PN ---
Subjective Progress Note Date: 05/07/18 Principal diagnosis: Acute COPD exacerbation, dyspnea, tracheobronchitis This is a 67-year-old male patient was known to me from previous office visits and hospitalizations. The patient has advanced COPD with an FEV1 of 34% of predicted and he has a chronic smoking history with a [id number] smoking history has been treated on outpatient basis with DuoNeb the right treatment [id number]. The patient was last hospitalized for COPD exacerbation back in August 2017. At that time the patient was treated successfully and he was discharged home without any complications. CAT scan of the chest that was done at that time showed no significant abnormalities other than his background COPD. The patient is coming in for increased dyspnea, cough, chest tightness and wheezing. His presentation is typical of COPD exacerbation. He is also bringing up copious amount of thick greenish sputum. Influenza screen has not been done yet. Chest x-ray history of any acute pulmonary infiltrates and there is no indication of underlying pneumonia at this point in time. He was using his nebulizer more frequently. Missed that he has been smoking approximately 10 cigarettes on a daily basis. No chest pain. No angina. No altered mentation. Previous echocardiogram from the preserved LV function with an ejection fraction of 50% On 05/06/2018 patient seen in follow-up on medical surgical floor. he is feeling a little better, breathing little easier, still has a congested cough, lung sounds are very diminished. Influenza screen was negative, sputum culture was positive for Haemophilus influenza. He is on IV steroids, and advised bronchodilators, today's lab work was reviewed, showed WBC of 16.1, hemoglobin of 14.2, CO2 is 33, the rest of electrolytes were within normal limits, BUN was 40, creatinine was 0.8. No fever no chills. No new chest x-rays. Patient is seen again today 05/07/2018 in follow-up on the regular medical floor. He is awake and alert in no acute distress. He is breathing quite a bit better today as compared to yesterday. He is maintaining good O2 saturations on 3.5 L/m per nasal cannula. He is afebrile. Hemodynamically stable. The sputum was positive for Haemophilus influenza. He is now on azithromycin. He continues on bronchodilators and IV Solu-Medrol. Objective - Vital Signs Vital signs: Vital Signs Temp 97.6 F 05/07/18 14:31 Pulse 66 05/07/18 15:15 Resp 22 05/07/18 15:57 BP 104/66 05/07/18 14:31 Pulse Ox 93 L 05/07/18 14:31 Intake & Output 05/06/18 05/07/18 05/07/18 18:59 06:59 18:59 Weight 83.6 kg Other: Voiding Method Urinal Urinal Urinal # Voids 1 1 2 - Exam Gen. appearance, comfortable likely distress and the patient is not using excessive muscle breathing. Head exam was generally normal. There was no scleral icterus or corneal arcus. Mucous membranes were moist. Neck was supple and without jugular venous distension, thyromegaly, or carotid bruits. Carotids were easily palpable bilaterally. There was no adenopathy. Lungs sounds are diminished bilaterally along throughout the lung jean and prolongation of expiratory phase of breathing Cardiac exam revealed the PMI to be normally situated and sized. The rhythm was regular and no extrasystoles were noted during several minutes of auscultation. The first and second heart sounds were normal and physiologic splitting of the second heart sound was noted. There were no murmurs, rubs, clicks, or gallops. Abdominal exam revealed normal bowel sounds. The abdomen was soft, non-tender, and without masses, organomegaly, or appreciable enlargement of the abdominal aorta. Examination of the extremities revealed easily palpable radial, femoral and pedal pulses. There was no cyanosis, clubbing or edema. Examination of the skin revealed no evidence of significant rashes, suspicious appearing nevi or other concerning lesions. Neurologically awake and alert and there is no focal neurological deficit. - Labs CBC & Chem 7: 05/06/18 10:17 05/06/18 10:17 Labs: Abnormal Lab Results - Last 24 Hours (Table) 05/06/18 05/06/18 05/07/18 Range/Units 16:36 21:40 07:53 POC Glucose (mg/dL) 133 H 158 H 115 H (75-99) mg/dL 05/07/18 Range/Units 12:21 POC Glucose (mg/dL) 134 H (75-99) mg/dL Microbiology - Last 24 Hours (Table) 05/04/18 08:00 Gram Stain - Final Sputum Sputum Culture - Final Haemophilus influenzae Assessment and Plan Assessment: Impression: 1 acute COPD exacerbation with secondary shortness of breath, secondary to Haemophilus influenza positive sputum 2 dyspnea secondary to above, in addition to an acute hypoxic respiratory failure secondary to above 3 severe COPD with baseline with an FEV1 of 36% of predicted 4 chronic hypoxic respiratory failure 5 history of smoking 6 coronary artery disease with triple-vessel involvement and a preserved LV function 7 hypertension 8 hyperlipidemia 9 abdominal aortic aneurysm status post and vascular stent grafting 10 comorbidities all as mentioned above. 11 leukocytosis secondary to above Plan: The patient was seen and evaluated by Dr. Gonzalez. The patient is improved today as compared to yesterday. He was was switched from doxycycline to oral azithromycin. We will increase his activity as tolerated. Continue to titrate down the FiO2 as tolerated. We will continue to follow. I, the cosigning physician, performed a history & physical examination of the patient. Lungs sounds with few scattered rhonchi, end expiratory wheeze.. Maintaining good O2 saturations in the 90s on 3.5 L/m per nasal cannula. I discussed the assessment and plan of care with my nurse practitioner, Lynda Kaur. I attest to the above note as dictated by her.
[2018-05-07 17:26] LABS: Glucose,Whole Blood 117 mg/dL (75-99)
[2018-05-07 21:17] LABS: Glucose,Whole Blood 180 mg/dL (75-99)
[2018-05-07] MEDS: ATORVASTATIN 80 MG TAB PO SCH (21:41)
[2018-05-08] MEDS: methylPREDNISolone SOD SUCCI 40 MG/ML 1 ML VIAL IV SCH ×2 (00:27→08:37)
[2018-05-08 01:49] VITALS: RESP 20
[2018-05-08] MEDS: IPRATROPIUM-ALBUTEROL 3 ML NEB INHALATION SCH (07:16)
[2018-05-08 07:28] VITALS: BP 117/67; TEMP 97.6
[2018-05-08 07:32] VITALS: PULSE 68
[2018-05-08 07:49] LABS: Glucose,Whole Blood 117 mg/dL (75-99)
[2018-05-08] MEDS: INSULIN ASPART 100 UNIT/ML 1 ML 10 ML VIAL SQ SCH (08:04)
--- NOTE | 2018-05-08 08:32 | P.DS ---
Providers Date of admission: 05/04/18 09:35 Expected date of discharge: 05/08/18 Attending physician: Jamie Balderas Consults: 05/04/18 09:34 Consult Physician Routine Consulting Provider: Lisa Gonzalez Consult Reason/Comments: COPD Do you want consulting provider notified?: Yes Primary care physician: Jamie Balderas [facility] Course: 67-year-old male who presents emergency department with past history significant for COPD. Patient states she continues to smoke. Patient states she started having difficulty breathing about 12 hours ago his oxygenation was dipping down to 80s at home. Patient states he put himself on a couple liters and he was still 91% having hard time breathing so decided come the emergency department. Patient denies any fever chills or new cough. Patient states he has no sputum production. Patient denies any chest pain. Patient denies any palpitations. Patient denies any abdominal pain patient denies nausea or vomiting. Patient denies lightheadedness dizziness or nursing about so. Patient denies any leg swelling or calf tenderness. Patient denies any recent injury or fall. Patient states he's taking treatments at home but they did not help. Patient is presently on 5 L of of oxygen. Patient on IV steroids which will cut down to 40 IV twice a day. Patient denied any fever chills there is no pneumonic infiltrate on the chest x-ray patient has mildly elevated troponin of 0.06 which is secondary to hypoxemia patient EKG showed some nonspecific ST-T wave changes in the anterior leads which are present in month of August as well. We'll repeat on the set of troponin to make sure troponins are not going up. His noncardiac elevation of troponin secondary to hypoxemia. She was started on doxepin for bronchitis. Above per Dr. Barfield, covering for Dr. Balderas 05/05/2018 Patient examined at the bedside with Dr. Balderas. Patient reports he continues to have shortness of breath although it has improved since admission. He remains on 8 L nasal cannula. The patient reports he does wear home oxygen as needed. He remains on IV steroids: 40 mg IV every 12 hours. He has remains on doxycycline. He is receiving nebulizer treatments. Patient reports he is leaving Saturday for a cruise and is worried he will not be discharged home and time per his vacation. 05/06/2018 Patient examined at the bedside. He states his shortness of breath has improved. His steroids were increased yesterday per pulmonary. He reports increased coughing overnight. He was started on Robitussin with codeine with improvement in his cough. 05/07/2018 Patient examined at the bedside. Patient reports his breathing has significantly improved overnight. Also reports his cough has improved. He is currently on 4 L nasal cannula with oxygen saturations greater than 92%. He remains on IV steroids 60 mg every 6 hours. Sputum culture is positive for Haemophilus influenza. Antibiotics were switched to azithromycin per pulmonary. 05/08/2018 Patient examined at the bedside. Breathing is improved. He denies SOB. He remains on NC to maintain oxygen saturations greater than 92%. The patient wears home oxygen PRN. Patient instructed to wear 24/7 at this time. He is stable for discharge home today. ASSESSMENT: Acute exacerbation of chronic obstructive pulmonary disease, sputum culture positive for Haemophilus influenza Acute on chronic hypoxic and hypercapnic respiratory failure Hypertension Hyperlipidemia History of coronary artery disease Nicotine dependence, patient continues to smoke Nurse practitioner note has been reviewed by physician. Signing provider agrees with the documented findings, assessment, and plan of care. Patient Condition at Discharge: Stable Plan - Discharge Summary Discharge Rx Participant: No New Discharge Prescriptions: New Azithromycin [Zithromax] 500 mg PO DAILY #7 tab guaiFENesin [Mucinex] 600 mg PO Q12HR #30 tab predniSONE See Taper PO DIRECTED #30 tab Continue Albuterol Inhaler [Ventolin Hfa Inhaler] 2 puff INHALATION RT-Q4H PRN PRN Reason: Wheezing amLODIPine [Norvasc] 5 mg PO DAILY@1200 #30 tab Atorvastatin [Lipitor] 80 mg PO HS Lisinopril [Zestril] 10 mg PO BID Metoprolol Succinate (ER) [Toprol XL] 100 mg PO DAILY Aspirin EC [Ecotrin Low Dose] 81 mg PO DAILY Albuterol Nebulized [Ventolin Nebulized] 2.5 mg INHALATION QID Discharge Medication List Albuterol Inhaler [Ventolin Hfa Inhaler] 2 puff INHALATION RT-Q4H PRN 03/02/16 [ History] amLODIPine [Norvasc] 5 mg PO DAILY@1200 #30 tab 02/23/17 [Rx] Albuterol Nebulized [Ventolin Nebulized] 2.5 mg INHALATION QID 05/04/18 [History ] Aspirin EC [Ecotrin Low Dose] 81 mg PO DAILY 05/04/18 [History] Atorvastatin [Lipitor] 80 mg PO HS 05/04/18 [History] Lisinopril [Zestril] 10 mg PO BID 05/04/18 [History] Metoprolol Succinate (ER) [Toprol XL] 100 mg PO DAILY 05/04/18 [History] Azithromycin [Zithromax] 500 mg PO DAILY #7 tab 05/07/18 [Rx] guaiFENesin [Mucinex] 600 mg PO Q12HR #30 tab 05/07/18 [Rx] predniSONE See Taper PO DIRECTED #30 tab 05/07/18 [Rx] Follow up Appointment(s)/Referral(s): Jamie Balderas DO [Primary Care Provider] - 1 Week Lisa Gonzalez MD [STAFF PHYSICIAN] - 1 Week Discharge Disposition: HOME SELF-CARE
[2018-05-08] MEDS: ASPIRIN 81 MG PO SCH (08:38)
[2018-05-08] MEDS: HEPARIN SODIUM,PORCINE 5,000 UNIT/ML 1 ML VIAL SQ SCH (08:38)
[2018-05-08] MEDS: METOPROLOL SUCCINATE (ER) 100 MG TAB.ER.24H PO SCH (08:38)
[2018-05-08] MEDS: guaiFENesin 600 MG TABLET.ER PO SCH (08:38)
[2018-05-08] MEDS: LISINOPRIL 10 MG TAB PO SCH (08:38)
[2018-05-08] MEDS: PANTOPRAZOLE 40 MG TABLET PO SCH (08:38)
[2018-05-08] MEDS: AZITHROMYCIN 500 MG TAB PO SCH (08:38)
--- NOTE | 2018-05-12 05:30 | CDI ---
Documentation Clarification Form Date: 05/12/2018 5:20:25 AM From: Sunshine Campos Phone: If you have a question about this query, please contact [employer] at [phone] between 8am and 5pm. Admit Date: 05/04/2018 9:35:00 AM Patient Name: Adam Olivo Visit Number: [id number] Discharge Date: 05/08/2018 11:28:00 AM ATTENTION: The Clinical Documentation Specialists (CDI) and [facility] Coding Staff appreciate your assistance in clarifying documentation. Please respond to the clarification below the line at the bottom and electronically sign. The CDI & [facility] Coding staff will review the response and follow-up if needed. Please note: Queries are made part of the Legal Health Record. If you have any questions, please contact the author of this message via ITS. Dr. Barfield: Documentation of bronchitis is located in the Progress notes. Please clarify acuity. History/Risk Factors:COPD exacerbation, tobacco dependence, Home O2 Significant history of respiratory disorders/disease COPD Present or past smoker/PPD present 1/2 pack a day Home O2 Yes Clinical Indicators: sputum culture + Haemophilus influeza WBC 16.1 CXR fibrotic changes Vital Signs/Pulse Oximetry:98.5 F, 105 bpm, 24, 83 RA Lung and Respiratory Assessment SOB labored breathing use of assessory muscles. Treatment: IV Steroids antibiotics O2 Steroids IV O2 @ 5_liters Antibiotics Zithromax In your professional opinion, can you please clarify the acuity of the bronchitis Acute Exacerbation of Chronic Obstructive Pulmonary Disease with acute bronchitis Acute Exacerbation of Chronic Obstructive disease chronic bronchitis Bronchitis ruled out Other condition, please specify Unable to determine MTDD
== END 2018-05-08 11:28 | disposition home or self-care (01) | DRG 190 ==
LOC: EC 06:18 → 3SCARD 09:35 → 4MS4W 21:46
PROVIDERS: ADMIT Family Medicine; ATTEND Family Medicine
DX: J44.1 Chronic obstructive pulmonary disease with (acute) exacerbation (principal); J96.21 Acute and chronic respiratory failure with hypoxia; J96.22 Acute and chronic respiratory failure with hypercapnia; Z79.51 Long term (current) use of inhaled steroids; Z79.899 Other long term (current) drug therapy; Z80.9 Family history of malignant neoplasm, unspecified; Z82.49 Family history of ischemic heart disease and other diseases of the circulatory system; Z99.81 Dependence on supplemental oxygen; Z87.442 Personal history of urinary calculi; Z86.79 Personal history of other diseases of the circulatory system; D72.829 Elevated white blood cell count, unspecified; E78.5 Hyperlipidemia, unspecified; Z71.6 Tobacco abuse counseling; F17.210 Nicotine dependence, cigarettes, uncomplicated; I10 Essential (primary) hypertension; I25.10 Atherosclerotic heart disease of native coronary artery without angina pectoris; Z79.82 Long term (current) use of aspirin; B96.3 Hemophilus influenzae [H. influenzae] as the cause of diseases classified elsewhere; R74.8 Abnormal levels of other serum enzymes; Z87.01 Personal history of pneumonia (recurrent); Z98.42 Cataract extraction status, left eye; Z98.41 Cataract extraction status, right eye; Z96.1 Presence of intraocular lens; M25.50 Pain in unspecified joint; Z88.0 Allergy status to penicillin
CPT/HCPCS: 36415; 71045; 80053; 82550; 82553; 83036; 84484; 85025; 85610; 85730; 87070; 87205; 87502; 93005; 94640; 94760; 96374; 99291

== ENCOUNTER 2019-03-04 04:13 | Inpatient (IN) | payer MEDICARE, OTHER ==
--- NOTE | 2019-03-04 04:19 | ED ---
General Adult HPI - General Stated complaint: Flu Like Symptoms Time Seen by Provider: 03/04/19 04:18 - History of Present Illness Initial comments: Adam is a 68-year-old gentleman with history of COPD who is not oxygen dependent. Patient presents to the emergency department today for evaluation of mildly productive cough and shortness of breath progressively worsening for 3 days duration. Patient reports he's been feeling short of breath or had s ubjective fever and chills. Patient reports he's had a productive cough but continues to feel short of breath. He states he's been wheezing and has been using breathing treatments with minimal improvement. Tonight patient cannot sleep so he contacted EMS to bring him to the ER for further evaluation. - Related Data Home Medications Medication Instructions Recorded Confirmed Albuterol Inhaler [Ventolin Hfa 2 puff INHALATION RT-Q4H PRN 03/02/16 03/04/19 Inhaler] Albuterol Nebulized [Ventolin 2.5 mg INHALATION QID 05/04/18 03/04/19 Nebulized] Aspirin EC [Ecotrin Low Dose] 81 mg PO DAILY 05/04/18 03/04/19 Atorvastatin [Lipitor] 80 mg PO HS 05/04/18 03/04/19 Lisinopril [Zestril] 10 mg PO BID 05/04/18 03/04/19 Metoprolol Succinate (ER) [Toprol 100 mg PO DAILY 05/04/18 03/04/19 XL] Previous Rx's Medication Instructions Recorded amLODIPine [Norvasc] 5 mg PO DAILY@1200 #30 tab 02/23/17 Azithromycin [Zithromax] 500 mg PO DAILY #7 tab 05/07/18 Allergies Allergy/AdvReac Type Severity Reaction Status Date / Time Penicillins Allergy Rash/Hives Verified 05/04/18 06:24 Review of Systems ROS Statement: Those systems with pertinent positive or pertinent negative responses have been documented in the HPI. ROS Other: All systems not noted in ROS Statement are negative. Past Medical History Past Medical History: Asthma, COPD, Hyperlipidemia, Hypertension, Pneumonia, Renal Disease Additional Past Medical History / Comment(s): Severe COPD, chronic hypoxic history failure, history of autoimmune disease currently under investigation by Dr. Goins, coronary artery disease with triple-vessel involvement, preserved LV function with an ejection fraction of 50% and moderate LVH, abdominal aortic aneurysm status post endovascular stent grafting, nephrolithiasis, bilateral leg cramps, left eardrum perforation, hyperlipidemia, hypertension History of Any Multi-Drug Resistant Organisms: None Reported Past Surgical History: Appendectomy, Ear Surgery, Heart Catheterization, Hernia Repair Additional Past Surgical History / Comment(s): Endovascular stent grafting of a abdominal aortic aneurysm. Facial reconstructive surgery. L ear surgery. Umbilical hernia. Colonoscopy-benign polypectomy. R cataract removed with lens. L eye had glass removed and lens placed. Past Anesthesia/Blood Transfusion Reactions: No Reported Reaction Additional Past Anesthesia/Blood Transfusion Reaction / Comment(s): Pt has never recieved blood. Past Psychological History: No Psychological Hx Reported Additional Psychological History / Comment(s): Pt resides with his spouse. He is normally independent. He has a nebulizer at home. He drives. Smoking Status: Current every day smoker Past Alcohol Use History: Occasional Additional Past Alcohol Use History / Comment(s): Pt started smoking in 1961. Pt states he is down to 5 cigarettes a day. Past Drug Use History: None Reported - Past Family History Father Family Medical History: Myocardial Infarction ([place]) Additional Family Medical History / Comment(s): Father at age 75 yrs of a [place] Mother Family Medical History: Cancer Additional Family Medical History / Comment(s): Mother of metastatic cancer (unknown primary) at age 42 yrs. General Exam - General Exam Comments Initial Comments: Physical Exam GENERAL: Patient is well-developed and well-nourished. Patient is nontoxic and well-hydrated and is in no distress. HENT: Normocephalic, Atraumatic. EYES: PERRL, EOMI PULMONARY: Tachypnea, wheezing in all lung jean CARDIOVASCULAR: There is a regular rate and rhythm without any murmurs gallops or rubs. ABDOMEN: Soft and nontender with normal bowel sounds. SKIN: Skin is clear with no lesions or rashes and otherwise unremarkable. : Deferred NEUROLOGIC: Patient is alert and oriented x3. Moving all extremities spontaneously MUSCULOSKELETAL: Normal extremities with adequate strength and full range of motion. No lower extremity swelling or edema. No calf tenderness. PSYCHIATRIC: Normal psychiatric evaluation. Course Vital Signs 03/04/19 03/04/19 03/04/19 04:16 05:00 07:00 Temperature 98.1 F Pulse Rate 71 64 69 Respiratory 24 32 H 26 H Rate Blood Pressure 142/84 142/84 123/75 O2 Sat by Pulse 88 L 91 L 95 Oximetry 03/04/19 07:15 Temperature Pulse Rate 74 Respiratory Rate Blood Pressure O2 Sat by Pulse Oximetry EKG Findings - EKG Comments: EKG Findings:: EKG was obtained due to complaint of shortness of breath, EKG was 19 a.m., rate is 67 rhythm sinus and a normal axis, normal intervals, CT 134, QRS 96, QTC is 458 there are no acute ST elevations or depressions no evidence of acute ischemia or infarction. Medical Decision Making - Medical Decision Making Patient seen and evaluated history and physical exam are concerning for COPD exacerbation Influence as well as chest x-ray and labs are ordered and sent influence a negative chest x-ray no signs of pneumonia Labs and physical exam consistent with COPD exacerbation. Given patient is not oxygen dependent at home is now requiring oxygen with oxygen saturations in the low 90s despite being on 2-3 L nasal cannula we will plan to admit the patient with a consult to pulmonology. Patient care was discussed with his primary care physician Dr. Balderas who agrees with plan for admission - Lab Data Result diagrams: 03/04/19 05:07 03/04/19 05:07 Lab Results 03/04/19 03/04/19 03/04/19 Range/Units 05:07 05:07 05:07 WBC 12.9 H (3.8-10.6) k/uL RBC 4.92 (4.30-5.90) m/uL Hgb 14.3 (13.0-17.5) gm/dL Hct 43.7 (39.0-53.0) % MCV 88.8 (80.0-100.0) fL MCH 29.1 (25.0-35.0) pg MCHC 32.7 (31.0-37.0) g/dL RDW 13.4 (11.5-15.5) % Plt Count 223 (150-450) k/uL Neutrophils % 84 % Lymphocytes % 4 % Monocytes % 7 % Eosinophils % 1 % Basophils % 3 % Neutrophils # 10.8 H (1.3-7.7) k/uL Lymphocytes # 0.5 L (1.0-4.8) k/uL Monocytes # 0.9 (0-1.0) k/uL Eosinophils # 0.1 (0-0.7) k/uL Basophils # 0.4 H (0-0.2) k/uL PT 11.4 (9.0-12.0) sec INR 1.1 (<1.2) APTT 27.1 (22.0-30.0) sec Sodium 135 L (137-145) mmol/L Potassium 4.1 (3.5-5.1) mmol/L Chloride 98 (98-107) mmol/L Carbon Dioxide 30 (22-30) mmol/L Anion Gap 7 mmol/L BUN 14 (9-20) mg/dL Creatinine 0.72 (0.66-1.25) mg/dL Est GFR (CKD-EPI)AfAm >90 (>60 ml/min/1.73 sqM) Est GFR (CKD-EPI)NonAf >90 (>60 ml/min/1.73 sqM) Glucose 98 (74-99) mg/dL Plasma Lactic Acid Ricky (0.7-2.0) mmol/L Calcium 8.4 (8.4-10.2) mg/dL Total Bilirubin 0.8 (0.2-1.3) mg/dL AST 19 (17-59) U/L ALT 23 (21-72) U/L Alkaline Phosphatase 65 (38-126) U/L Troponin I (0.000-0.034) ng/mL Total Protein 6.3 (6.3-8.2) g/dL Albumin 3.5 (3.5-5.0) g/dL Influenza Type A RNA (Not Detectd) Influenza Type B (PCR) (Not Detectd) 03/04/19 03/04/19 03/04/19 Range/Units 05:07 06:15 06:29 WBC (3.8-10.6) k/uL RBC (4.30-5.90) m/uL Hgb (13.0-17.5) gm/dL Hct (39.0-53.0) % MCV (80.0-100.0) fL MCH (25.0-35.0) pg MCHC (31.0-37.0) g/dL RDW (11.5-15.5) % Plt Count (150-450) k/uL Neutrophils % % Lymphocytes % % Monocytes % % Eosinophils % % Basophils % % Neutrophils # (1.3-7.7) k/uL Lymphocytes # (1.0-4.8) k/uL Monocytes # (0-1.0) k/uL Eosinophils # (0-0.7) k/uL Basophils # (0-0.2) k/uL PT (9.0-12.0) sec INR (<1.2) APTT (22.0-30.0) sec Sodium (137-145) mmol/L Potassium (3.5-5.1) mmol/L Chloride (98-107) mmol/L Carbon Dioxide (22-30) mmol/L Anion Gap mmol/L BUN (9-20) mg/dL Creatinine (0.66-1.25) mg/dL Est GFR (CKD-EPI)AfAm (>60 ml/min/1.73 sqM) Est GFR (CKD-EPI)NonAf (>60 ml/min/1.73 sqM) Glucose (74-99) mg/dL Plasma Lactic Acid Ricky <0.5 L (0.7-2.0) mmol/L Calcium (8.4-10.2) mg/dL Total Bilirubin (0.2-1.3) mg/dL AST (17-59) U/L ALT (21-72) U/L Alkaline Phosphatase (38-126) U/L Troponin I <0.012 (0.000-0.034) ng/mL Total Protein (6.3-8.2) g/dL Albumin (3.5-5.0) g/dL Influenza Type A RNA Not Detected (Not Detectd) Influenza Type B (PCR) Not Detected (Not Detectd) Disposition Clinical Impression: Acute exacerbation of COPD with asthma Disposition: ADMITTED IP TO THIS HOSP Condition: Stable Referrals: Jamie Balderas DO [Primary Care Provider] - 1-2 days
[2019-03-04 06:32] LABS: Basophils # (A) 0.4 k/uL (0-0.2); Basophils % (A) 3 %; Eosinophils # (A) 0.1 k/uL (0-0.7); Eosinophils % (A) 1 %; HCT 43.7 % (39.0-53.0); HGB 14.3 gm/dL (13.0-17.5); Lymphocytes # (A) 0.5 k/uL (1.0-4.8); Lymphocytes % (A) 4 %; MCH 29.1 pg (25.0-35.0); MCHC 32.7 g/dL (31.0-37.0); MCV 88.8 fL (80.0-100.0); Mean Platelet Volume 7.6; Monocytes # (A) 0.9 k/uL (0-1.0); Monocytes % (A) 7 %; Neutrophils # (A) 10.8 k/uL (1.3-7.7); Neutrophils % (A) 84 %; Platelet Count 223 k/uL (150-450); RBC 4.92 m/uL (4.30-5.90); RDW 13.4 % (11.5-15.5); WBC 12.9 k/uL (3.8-10.6)
[2019-03-04] MEDS ORDERED: IPRATROPIUM-ALBUTEROL 3 ML NEB INHALATION STA (06:35)
[2019-03-04] MEDS: SODIUM CHLORIDE 0.9% 500 ML 500 ML IV SCH ×2 (06:41→06:42)
[2019-03-04 06:44] LABS: ALT 23 U/L (21-72); AST 19 U/L (17-59); African American GFR (CKD) >90 (>60 ml/min/1.73 sqM); Albumin 3.5 g/dL (3.5-5.0); Alkaline Phosphatase 65 U/L (38-126); Anion Gap 7 mmol/L; Blood Urea Nitrogen 14 mg/dL (9-20); Calcium 8.4 mg/dL (8.4-10.2); Carbon Dioxide 30 mmol/L (22-30); Chloride 98 mmol/L (98-107); Glucose 98 mg/dL (74-99); Potassium 4.1 mmol/L (3.5-5.1); Sodium 135 mmol/L (137-145); Total Bilirubin 0.8 mg/dL (0.2-1.3); Total Protein 6.3 g/dL (6.3-8.2)
[2019-03-04 06:58] LABS: INR 1.1 (<1.2); Partial Thromboplastin Time 27.1 sec (22.0-30.0); Prothrombin Time 11.4 sec (9.0-12.0)
--- NOTE | 2019-03-04 07:30 | XR ---
EXAMINATION TYPE: XR chest 2V DATE OF EXAM: 03/04/2019 COMPARISON: 05/05/2018 HISTORY: Shortness of breath TECHNIQUE: Frontal and lateral views of the chest are obtained. FINDINGS: Scattered senescent parenchymal changes noted. Hyperinflation compatible with COPD. No evidence for infiltrate. No evidence for atelectasis. Heart size is stable. Mediastinal structures are stable and grossly unremarkable. No evidence for hilar prominence. Degenerative changes dorsal spine. IMPRESSION: 1. No evidence for acute pulmonary disease.
[2019-03-04] MEDS ORDERED: methylPREDNISolone SOD SUCCI 125 MG/2 ML VIAL IV STA (07:37)
[2019-03-04] MEDS ORDERED: IPRATROPIUM-ALBUTEROL 3 ML NEB INHALATION PRN (07:38)
[2019-03-04] MEDS: AZITHROMYCIN 500 MG TAB PO SCH (09:30)
[2019-03-04] MEDS ORDERED: INFLUENZA VACCINE (6 MOS+) 60 MCG/0.5 ML SYRINGE IM ONE (11:32)
[2019-03-04] MEDS: methylPREDNISolone SOD SUCCI 125 MG/2 ML VIAL IV SCH ×2 (12:32→16:23)
--- NOTE | 2019-03-04 13:33 | P.CNPUL ---
History of Present Illness Consult date: 03/04/19 Requesting physician: Jamie Balderas Reason for consult: dyspnea, cough Chief complaint: Dyspnea, cough congestion, wheezing History of present illness: This is a 68-year-old white male patient of Dr. Balderas, who also follows with Dr. Gonzalez in the pulmonary clinic for his history of advanced COPD, with baseline FEV1 of 34% of predicted, and patient is not oxygen dependent at his baseline, he is usually maintained on a combination of Inkruse, Ventolin and nebulized albuterol. Patient is a long-time smoker, and he has been cutting down but unable to quit completely yet, he is currently down to 5 cigarettes a day. Other medical history includes history of abdominal aortic aneurysm being monitored by Dr. Rivera, status post endovascular stent grafting. Hypertension, coronary arterial sclerosis, and autoimmune disorder under investigation by Dr. Goins. Patient developed nausea and vomiting, increasing shortness of breath, diarrhea, he had fever and chills at home yesterday in the afternoon. He denies anybody else being sick around him. He started experiencing increasing tightness in his chest, increasing cough, production of green sputum, he came into the emergency department for evaluation, he was found to be hypoxemic, at 88% on room air on presentation, but was afebrile, hemodynamically stable, extremely bronchospastic, congestion, coughing, influenza screen was negative, chest x-ray showed no evidence of acute pulmonary disease. Patient had chronic scattered parenchymal changes similar to previous exams. Lab work showed a white blood cell, of 12.9, hemoglobin of 14.3, quit in relation profile was within normal limits, serum sodium was 135, the rest of electrolytes and renal profile were within normal limits, plasma lactic acid was less than 0.5, troponin is negative 1, influenza screen was negative. Patient has been started on Zithromax, IV steroids, nebulized bronchodilators. Review of Systems All systems: negative Constitutional: Denies chills, Denies fever Eyes: denies blurred vision, denies pain Ears, nose, mouth and throat: Denies headache, Denies sore throat Cardiovascular: Denies chest pain, Denies shortness of breath Respiratory: Reports congestion, Reports cough with sputum, Reports dyspnea, Reports respiratory infections, Reports wheezing, Denies cough Gastrointestinal: Reports nausea, Reports vomiting, Denies abdominal pain, Denies diarrhea Musculoskeletal: Denies myalgias Integumentary: Denies pruritus, Denies rash Neurological: Denies numbness, Denies weakness Psychiatric: Denies anxiety, Denies depression Endocrine: Denies fatigue, Denies weight change Past Medical History Past Medical History: Asthma, COPD, GERD/Reflux, Hyperlipidemia, Hypertension, Pneumonia, Vascular Disorder Additional Past Medical History / Comment(s): Severe COPD, chronic hypoxic history failure, history of autoimmune disease had work up by Dr. Goins and [facility]-never received specifics about the disease type, coronary artery disease with triple-vessel involvement, preserved LV function with an ejection fraction of 50% and moderate LVH, abdominal aortic aneurysm status post endovascular stent grafting, nephrolithiasis-passed stones on his own, bilateral leg cramps, left eardrum perforation/[place] History of Any Multi-Drug Resistant Organisms: None Reported Past Surgical History: Appendectomy, Ear Surgery, Heart Catheterization, Hernia Repair Additional Past Surgical History / Comment(s): Endovascular stent grafting of a abdominal aortic aneurysm. Facial reconstructive surgery. L ear surgery- myringotomy. Umbilical hernia. Colonoscopy-benign polypectomy. R cataract removed with lens. L eye had glass removed and lens placed. Past Anesthesia/Blood Transfusion Reactions: No Reported Reaction Additional Past Anesthesia/Blood Transfusion Reaction / Comment(s): Pt has never recieved blood. Smoking Status: Light tobacco smoker - Past Family History Brother(s) Family Medical History: Cancer Additional Family Medical History / Comment(s): Brother of lung cancer at the age of 42 yrs. He was a smoker. Sister(s) Family Medical History: Cancer Additional Family Medical History / Comment(s): Sister of lung cancer. She was a smoker. Father Family Medical History: Myocardial Infarction ([place]) Additional Family Medical History / Comment(s): Father at age 75 yrs of a [place] Mother Family Medical History: Cancer Additional Family Medical History / Comment(s): Mother of metastatic cancer (unknown primary) at age 42 yrs. Medications and Allergies Home Medications Medication Instructions Recorded Confirmed Type Albuterol Inhaler [Ventolin Hfa 2 puff INHALATION RT-Q4H PRN 03/02/16 03/04/19 History Inhaler] amLODIPine [Norvasc] 5 mg PO DAILY@1200 #30 tab 02/23/17 03/04/19 Rx Albuterol Nebulized [Ventolin 2.5 mg INHALATION RT-QID 05/04/18 03/04/19 History Nebulized] Atorvastatin [Lipitor] 80 mg PO HS 05/04/18 03/04/19 History Metoprolol Succinate (ER) [Toprol 100 mg PO DAILY 05/04/18 03/04/19 History XL] Famotidine [Pepcid] 20 mg PO DAILY 03/04/19 03/04/19 History Lisinopril [Zestril] 20 mg PO BID 03/04/19 03/04/19 History Umeclidinium Vian [Incruse 1 puff INHALATION RT-DAILY 03/04/19 03/04/19 History Ellipta] Allergies Allergy/AdvReac Type Severity Reaction Status Date / Time Penicillins Allergy Rash/Hives Verified 03/04/19 07:57 Physical Exam Vitals: Vital Signs Temp Pulse Resp BP Pulse Ox 03/04/19 12:00 70 22 108/72 93 L 03/04/19 11:00 64 23 100/79 91 L 03/04/19 09:32 66 20 118/68 92 L 03/04/19 07:15 74 03/04/19 07:00 69 26 H 123/75 95 03/04/19 05:00 64 32 H 142/84 91 L 03/04/19 04:16 98.1 F 71 24 142/84 88 L Intake and Output 03/03/19 03/04/19 03/04/19 22:59 06:59 14:59 Other: Weight 77.111 kg GENERAL EXAM: Alert, pleasant, 68-year-old white male on 4 L of oxygen with a pulse ox of 93% comfortable in no apparent distress. HEAD: Normocephalic/atraumatic. EYES: Normal reaction of pupils, equal size. Conjunctiva pink, sclera white. NOSE: Clear with pink turbinates. THROAT: No erythema or exudates. NECK: No masses, no JVD, no thyroid enlargement, no adenopathy. CHEST: No chest wall deformity. Symmetrical expansion. LUNGS: Equal air entry with frequent coughing spells, wheezing, rhonchi CVS: Regular rate and rhythm, normal S1 and S2, no gallops, no murmurs, no rubs ABDOMEN: Soft, nontender. No hepatosplenomegaly, normal bowel sounds, no guarding or rigidity. EXTREMITIES: No clubbing, no edema, no cyanosis, 2+ pulses and upper and lower extremities. MUSCULOSKELETAL: Muscle strength and tone normal. SPINE: No scoliosis or deformity SKIN: No rashes CENTRAL NERVOUS SYSTEM: Alert and oriented -3. No focal deficits, tone is normal in all 4 extremities. PSYCHIATRIC: Alert and oriented -3. Appropriate affect. Intact judgment and insight. Results - Laboratory Findings CBC and BMP: 03/04/19 05:07 03/04/19 05:07 PT/INR, D-dimer PT 11.4 sec (9.0-12.0) 03/04/19 05:07 INR 1.1 (<1.2) 03/04/19 05:07 Abnormal lab findings: Abnormal Labs 03/04/19 03/04/19 03/04/19 05:07 05:07 06:29 WBC 12.9 H Neutrophils # 10.8 H Lymphocytes # 0.5 L Basophils # 0.4 H Sodium 135 L Plasma Lactic Acid Ricky <0.5 L - Diagnostic Findings Chest x-ray: report reviewed, image reviewed Assessment and Plan Plan: Assessment: #1. Acute exacerbation of chronic obstructive pulmonary disease, chest x-ray showed no acute pulmonary process, influenza screen negative #2. Acute hypoxemic failure related to the above #3. Advanced COPD, stage III, with baseline FEV1 of 34% of predicted, not oxygen dependent at baseline #4. Hypertension #5. History of abdominal aortic aneurysm status post endovascular stent grafting #6. Coronary artery disease #7. Autoimmune disorder under investigation by Dr. Gonis #8. Preserved LV function with an ejection fraction of 50% and moderate LVH #9. Current every day smoker, down to 5 cigarettes currently has been cutting back Plan: Continue with IV steroids, and Zithromax, on the sputum for culture, continue nebulized treatments around the clock, add Pulmicort and Perforomist, influenza screen was negative, chest x-ray did not show any acute process. Cough syrup as needed for severe coughing spells. Blood culture has been sent and pending, patient afebrile. Will continue with empiric antibiotic coverage, awaiting a bed on oncology floor, we'll continue to follow I performed a history & physical examination of the patient and discussed their management with my nurse practitioner, Mary Stewart. I reviewed the nurse practitioner's note and agree with the documented findings and plan of care. Lung sounds are positive for diffuse wheezes and congestion. The findings and the impression was discussed with the patient. I attest to the documentation by the nurse practitioner. Time with Patient: Greater than 30
[2019-03-04] MEDS: LISINOPRIL 20 MG TAB PO SCH ×2 (14:01→21:05)
[2019-03-04] MEDS: METOPROLOL SUCCINATE (ER) 100 MG TAB.ER.24H PO SCH (14:01)
[2019-03-04 15:03] LABS: Amorphous Sediment,Urine Rare /hpf; Appearance,Urine Clear (Clear); Bilirubin,Urine Negative (Negative); Blood,Urine Trace (Negative); Color,Urine Yellow; Glucose,Urine (UA) Negative (Negative); Ketones,Urine 1+ (Negative); Leukocyte Esterase,Urine Negative (Negative); Mucus,Urine Occasional /hpf; Nitrite,Urine Negative (Negative); Protein,Urine Trace (Negative); RBC,Urine 3 /hpf (0-5); Specific Gravity,Urine 1.016 (1.001-1.035); Urobilinogen,Urine <2.0 mg/dL (<2.0)
[2019-03-04] MEDS: IPRATROPIUM-ALBUTEROL 3 ML NEB INHALATION SCH ×2 (15:09→20:07)
[2019-03-04] MEDS ORDERED: ALBUTEROL NEBULIZED 2.5 MG/3 ML INHALATION SCH (16:00)
[2019-03-04] MEDS: guaiFENesin-Coden 100-10MG/5ML 10 ML CUP PO PRN (16:23)
[2019-03-04] MEDS: FAMOTIDINE 20 MG TAB PO SCH (16:23)
[2019-03-04] MEDS: FORMOTEROL FUMARATE 20 MCG/2 ML NEBU INHALATION SCH (20:07)
[2019-03-04] MEDS: BUDESONIDE 1 MG/2 ML NEBU INHALATION SCH (20:07)
[2019-03-04] MEDS: ATORVASTATIN 80 MG TAB PO SCH (21:05)
[2019-03-05] MEDS: methylPREDNISolone SOD SUCCI 125 MG/2 ML VIAL IV SCH ×5 (00:07→23:55)
[2019-03-05] MEDS: guaiFENesin-Coden 100-10MG/5ML 10 ML CUP PO PRN ×2 (00:10→21:10)
[2019-03-05] MEDS: FORMOTEROL FUMARATE 20 MCG/2 ML NEBU INHALATION SCH ×2 (07:30→20:09)
[2019-03-05] MEDS: BUDESONIDE 1 MG/2 ML NEBU INHALATION SCH ×2 (07:30→20:09)
[2019-03-05] MEDS: IPRATROPIUM-ALBUTEROL 3 ML NEB INHALATION SCH ×4 (07:30→20:09)
[2019-03-05] MEDS ORDERED: NON FORMULARY DRUG (Umeclidinium Bromide [Incruse Ellipta] 1 PUFF) INHALATION SCH (08:00)
[2019-03-05] MEDS: AZITHROMYCIN 500 MG TAB PO SCH (09:15)
[2019-03-05] MEDS: FAMOTIDINE 20 MG TAB PO SCH (09:15)
[2019-03-05] MEDS: LISINOPRIL 20 MG TAB PO SCH ×2 (09:15→20:39)
[2019-03-05] MEDS: METOPROLOL SUCCINATE (ER) 100 MG TAB.ER.24H PO SCH (09:16)
--- NOTE | 2019-03-05 10:27 | P.PN ---
Subjective Progress Note Date: 03/05/19 Principal diagnosis: Acute exacerbation of chronic obstructive pulmonary disease. This is a 68-year-old white male patient of Dr. Balderas, who also follows with Dr. Gonzalez in the pulmonary clinic for his history of advanced COPD, with baseline FEV1 of 34% of predicted, and patient is not oxygen dependent at his baseline, he is usually maintained on a combination of Inkruse, Ventolin and nebulized albuterol. Patient is a long-time smoker, and he has been cutting down but shaji ble to quit completely yet, he is currently down to 5 cigarettes a day. Other medical history includes history of abdominal aortic aneurysm being monitored by Dr. Rivera, status post endovascular stent grafting. Hypertension, coronary arterial sclerosis, and autoimmune disorder under investigation by Dr. Goins. Patient developed nausea and vomiting, increasing shortness of breath, diarrhea, he had fever and chills at home yesterday in the afternoon. He denies anybody else being sick around him. He started experiencing increasing tightness in his chest, increasing cough, production of green sputum, he came into the emergency department for evaluation, he was found to be hypoxemic, at 88% on room air on presentation, but was afebrile, hemodynamically stable, extremely bronchospastic, congestion, coughing, influenza screen was negative, chest x-ray showed no evidence of acute pulmonary disease. Patient had chronic scattered parenchymal changes similar to previous exams. Lab work showed a white blood cell, of 12.9, hemoglobin of 14.3, quit in relation profile was within normal l imits, serum sodium was 135, the rest of electrolytes and renal profile were within normal limits, plasma lactic acid was less than 0.5, troponin is negative 1, influenza screen was negative. Patient has been started on Zithromax, IV steroids, nebulized bronchodilators. The patient is seen today 03/05/2019 in follow-up on the regular medical floor. He is currently awake and alert in no acute distress. He is breathing easier today as compared to yesterday. Still not back to his baseline. Still quite congested. Bronchospastic and wheezing. He is maintaining O2 saturations in the low 90s on 5 L/m per nasal cannula. He has been afebrile. Hemodynamically stable. Sputum culture is pending. Blood culture reveals no growth to date. He has been continued on DuoNeb inhalations, Pulmicort and Perforomist inhalations, IV Solu-Medrol. Antibiotics in the form of ceftriaxone and azithromycin. Influenza screen was negative. Objective - Vital Signs Vital signs: Vital Signs Temp 98.0 F 03/05/19 04:59 Pulse 61 03/05/19 07:53 Resp 20 03/05/19 04:59 BP 103/65 03/05/19 04:59 Pulse Ox 92 L 03/05/19 07:30 Intake & Output 03/04/19 03/05/19 03/05/19 18:59 06:59 18:59 Intake Total 1200 Balance 1200 Intake: Oral 1200 Other: Voiding Method Toilet Toilet Urinal Urinal # Voids 3 - Exam GENERAL EXAM: Alert, pleasant, 68-year-old male patient on 5 L of oxygen with a pulse ox of 92% comfortable in no apparent distress. HEAD: Normocephalic/atraumatic. EYES: Normal reaction of pupils, equal size. Conjunctiva pink, sclera white. NOSE: Clear with pink turbinates. THROAT: No erythema or exudates. NECK: No masses, no JVD, no thyroid enlargement, no adenopathy. CHEST: No chest wall deformity. Symmetrical expansion. LUNGS: Equal air entry with frequent coughing spells, wheezing, scattered rhonchi bilaterally. CVS: Regular rate and rhythm, normal S1 and S2, no gallops, no murmurs, no rubs ABDOMEN: Soft, nontender. No hepatosplenomegaly, normal bowel sounds, no guarding or rigidity. EXTREMITIES: No clubbing, no edema, no cyanosis, 2+ pulses and upper and lower extremities. MUSCULOSKELETAL: Muscle strength and tone normal. SPINE: No scoliosis or deformity SKIN: No rashes CENTRAL NERVOUS SYSTEM: No focal deficits, tone is normal in all 4 extremities. PSYCHIATRIC: Alert and oriented -3. Appropriate affect. Intact judgment and insight. - Labs CBC & Chem 7: 03/04/19 05:07 03/04/19 05:07 Labs: Abnormal Lab Results - Last 24 Hours (Table) 03/04/19 Range/Units 14:50 Urine Protein Trace H (Negative) Urine Ketones 1+ H (Negative) Urine Blood Trace H (Negative) Amorphous Sediment Rare H (None) /hpf Urine Mucus Occasional H (None) /hpf Microbiology - Last 24 Hours (Table) 03/04/19 05:07 Blood Culture - Preliminary Blood No Growth after 24 hours Assessment and Plan Assessment: Assessment: #1. Acute exacerbation of chronic obstructive pulmonary disease, chest x-ray showed no acute pulmonary process, influenza screen negative #2. Acute hypoxemic failure related to the above #3. Advanced COPD, stage III, with baseline FEV1 of 34% of predicted, not oxygen dependent at baseline #4. Hypertension #5. History of abdominal aortic aneurysm status post endovascular stent grafting #6. Coronary artery disease #7. Autoimmune disorder under investigation by Dr. Goins #8. Preserved LV function with an ejection fraction of 50% and moderate LVH #9. Current every day smoker, down to 5 cigarettes currently has been cutting back Plan: The patient was seen and evaluated by Dr. Soria. He is improved today compared to yesterday. Still not quite back to his baseline. We'll continue with the current treatment plan. He is again educated regarding the importance of complete smoking cessation. Sputum culture pending. He remains on ceftriaxone and azithromycin along with DuoNeb inhalations, Pulmicort and Perforomist inhalations, IV Solu-Medrol. We will continue to follow and make further recommendations based on his clinical status. I, the cosigning physician, performed a history & physical examination of the patient. Lungs sounds with bilateral end expiratory wheezing, few scattered rhonchi. Diminished. Maintaining good O2 saturations in the 90s on 5 L/m per nasal cannula. I discussed the assessment and plan of care with my nurse practitioner, Lynda Kaur. I attest to the above note as dictated by her.
[2019-03-05 10:53] LABS: Glucose,Whole Blood 167 mg/dL (75-99)
[2019-03-05] MEDS: amLODIPine 5 MG TAB PO SCH (13:04)
[2019-03-05] MEDS: INSULIN ASPART (NovoLOG) 100 UNIT/ML VIAL SQ SCH ×3 (13:05→20:39)
[2019-03-05 13:27] VITALS: BMI 23.0
[2019-03-05 16:58] LABS: Glucose,Whole Blood 172 mg/dL (75-99)
[2019-03-05 20:21] LABS: Glucose,Whole Blood 155 mg/dL (75-99)
[2019-03-05] MEDS: ATORVASTATIN 80 MG TAB PO SCH (20:39)
--- NOTE | 2019-03-05 22:17 | P.HPIM ---
History of Present Illness H&P Date: 03/05/19 Lissett is a 68-year-old white male who was admitted to the hospital increasing shortness of breath increasing sputum production apparent exacerbation of COPD. He has been following with Dr. Gonzalez as outpatient as well as myself in the office he denies any chest pain Review of Systems GENERAL: Patient denies fever. Denies chills. EYES: Denies blurred vision. Denies vision changes. Denies eye pain. EARS, NOSE, MOUTH, & THROAT: Denies headache. Denies sore throat. Denies ear pain. RESPIRATORY: cough and shortness of breath. admits to sputum production. Denies hemoptysis. CARDIOVASCULAR: Denies chest pain or pressure. Denies palpitations. Denies arrh ythmias. GASTROINTESTINAL: Denies abdominal pain. Denies diarrhea. Denies constipation. Denies nausea. Denies vomiting. Denies heartburn. Denies blood in the stool. GENITOURINARY: Denies urinary frequency. Denies burning. Denies dysuria. Denies cloudy urine. Denies blood in the urine. MUSCULOSKELETAL: Denies myalgias. Denies joint swelling. Denies decreased range of motion beyond patients baseline. INTEGUMENTARY: Denies pruitis. Denies rash. PSYCHIATRIC: Denies suicidal or homicial ideations. ENDOCRINE: Denies weight change. Denies polydipsia. Denies polyuria. HEMATOLOGIC: Denies bleeding disorders. Past Medical History Past Medical History: Asthma, COPD, GERD/Reflux, Hyperlipidemia, Hypertension, Pneumonia, Vascular Disorder Additional Past Medical History / Comment(s): Severe COPD, chronic hypoxic history failure, history of autoimmune disease had work up by Dr. Goins and [facility]-never received specifics about the disease type, coronary artery disease with triple-vessel involvement, preserved LV function with an ejection fraction of 50% and moderate LVH, abdominal aortic aneurysm status post endovascular stent grafting, nephrolithiasis-passed stones on his own, bilateral leg cramps, left eardrum perforation/[place] History of Any Multi-Drug Resistant Organisms: None Reported Past Surgical History: Appendectomy, Ear Surgery, Heart Catheterization, Hernia Repair Additional Past Surgical History / Comment(s): Endovascular stent grafting of a abdominal aortic aneurysm. Facial reconstructive surgery. L ear surgery-myringotomy. Umbilical hernia. Colonoscopy-benign polypectomy. R cataract removed with lens. L eye had glass removed and lens placed. Past Anesthesia/Blood Transfusion Reactions: No Reported Reaction Additional Past Anesthesia/Blood Transfusion Reaction / Comment(s): Pt has never recieved blood. Smoking Status: Light tobacco smoker - Past Family History Brother(s) Family Medical History: Cancer Additional Family Medical History / Comment(s): Brother of lung cancer at the age of 42 yrs. He was a smoker. Sister(s) Family Medical History: Cancer Additional Family Medical History / Comment(s): Sister of lung cancer. She was a smoker. Father Family Medical History: Myocardial Infarction ([place]) Additional Family Medical History / Comment(s): Father at age 75 yrs of a [place] Mother Family Medical History: Cancer Additional Family Medical History / Comment(s): Mother of metastatic cancer (unknown primary) at age 42 yrs. Medications and Allergies Home Medications Medication Instructions Recorded Confirmed Type Albuterol Inhaler [Ventolin Hfa 2 puff INHALATION RT-Q4H PRN 03/02/16 03/04/19 History Inhaler] amLODIPine [Norvasc] 5 mg PO DAILY@1200 #30 tab 02/23/17 03/04/19 Rx Albuterol Nebulized [Ventolin 2.5 mg INHALATION RT-QID 05/04/18 03/04/19 History Nebulized] Atorvastatin [Lipitor] 80 mg PO HS 05/04/18 03/04/19 History Metoprolol Succinate (ER) [Toprol 100 mg PO DAILY 05/04/18 03/04/19 History XL] Famotidine [Pepcid] 20 mg PO DAILY 03/04/19 03/04/19 History Lisinopril [Zestril] 20 mg PO BID 03/04/19 03/04/19 History Umeclidinium [place] [Incruse 1 puff INHALATION RT-DAILY 03/04/19 03/04/19 History Ellipta] Allergies Allergy/AdvReac Type Severity Reaction Status Date / Time Penicillins Allergy Rash/Hives Verified 03/04/19 07:57 Physical Exam Osteopathic Statement: *. No significant issues noted on an osteopathic structural exam other than those noted in the History and Physical/Consult. Vitals: Vital Signs Temp Pulse Pulse Resp BP BP Pulse Ox 03/04/19 20:59 97.6 F 63 22 103/58 93 L 03/04/19 20:35 66 18 03/04/19 20:26 67 18 03/04/19 20:07 67 18 88 L 03/04/19 15:45 98 F 62 20 110/64 91 L 03/04/19 15:16 62 03/04/19 15:09 66 03/04/19 15:00 62 20 106/68 92 L 03/04/19 14:00 58 L 26 H 103/62 90 L 03/04/19 13:00 56 L 18 108/68 88 L 03/04/19 12:00 70 22 108/72 93 L 03/04/19 11:00 64 23 100/79 91 L 03/04/19 09:32 66 20 118/68 92 L 03/04/19 07:15 74 03/04/19 07:00 69 26 H 123/75 95 03/04/19 05:00 64 32 H 142/84 91 L 03/04/19 04:16 98.1 F 71 24 142/84 88 L Intake and Output 03/04/19 03/04/19 03/05/19 14:59 22:59 06:59 Intake Total 600 Balance 600 Intake: Oral 600 Other: Voiding Method Toilet Urinal # Voids 1 GENERAL: This is a 68-year-old in mild distress at the time of examination. Pleasant and cooperative. HEENT: Head is atraumatic, normocephalic. Pupils are equal, round, and reactive to light. Sclerae anicteric. Conjunctivae are clear. Mucus membranes of the mouth are moist. Neck is supple. RESPIRATORY: bilateral wheezes, rales, CARDIOVASCULAR: Regular rate and rhythm. S1 and S2 noted. No systolic or diastolic murmur auscultated. No JVD noted. No S3 or S4 noted. GASTROINTESTINAL: No distention noted. Abdomen soft and round. Normal active bowel sounds auscultated x 4 quadrants. No pain or tenderness noted upon palpation. INTEGUMENTARY: No cyanosis. No jaundice. No rashes noted. No cellulitis noted. EXTREMITIES: 2+ peripheral pulses. No evidence of peripheral edema. No calf tenderness noted. NEUROLOGIC: Cranial nerves II-XII intact. PSYCHIATRIC: Awake, alert, and oriented X 3. Appropriate affect. Intact judgement and insight. Results CBC & Chem 7: 03/04/19 05:07 03/04/19 05:07 Labs: Abnormal Lab Results - Last 24 Hours (Table) 03/04/19 03/04/19 03/04/19 Range/Units 05:07 05:07 06:29 WBC 12.9 H (3.8-10.6) k/uL Neutrophils # 10.8 H (1.3-7.7) k/uL Lymphocytes # 0.5 L (1.0-4.8) k/uL Basophils # 0.4 H (0-0.2) k/uL Sodium 135 L (137-145) mmol/L Plasma Lactic Acid Ricky <0.5 L (0.7-2.0) mmol/L Urine Protein (Negative) Urine Ketones (Negative) Urine Blood (Negative) Amorphous Sediment (None) /hpf Urine Mucus (None) /hpf 03/04/19 Range/Units 14:50 WBC (3.8-10.6) k/uL Neutrophils # (1.3-7.7) k/uL Lymphocytes # (1.0-4.8) k/uL Basophils # (0-0.2) k/uL Sodium (137-145) mmol/L Plasma Lactic Acid Ricky (0.7-2.0) mmol/L Urine Protein Trace H (Negative) Urine Ketones 1+ H (Negative) Urine Blood Trace H (Negative) Amorphous Sediment Rare H (None) /hpf Urine Mucus Occasional H (None) /hpf Thrombosis Risk Factor Assmnt - Choose All That Apply Any of the Below Risk Factors Present?: Yes Each Factor Represents 1 point: Abnormal pulmonary function (COPD) Other Risk Factors: Yes Each Risk Factor Represents 2 Points: Age 61-74 years Other congenital or acquired thrombophilia - If yes, enter type in comment: No Thrombosis Risk Factor Assessment Total Risk Factor Score: 3 Thrombosis Risk Factor Assessment Level: Moderate Risk Assessment and Plan (1) Acute exacerbation of COPD with asthma Current Visit: Yes Status: Acute Code(s): J44.1 - CHRONIC OBSTRUCTIVE PULMONARY DISEASE W (ACUTE) EXACERBATION; J45.901 - UNSPECIFIED ASTHMA WITH (ACUTE) EXACERBATION SNOMED Code(s): 5296017755366 (2) Hypoxia Current Visit: No Status: Acute Code(s): R09.02 - HYPOXEMIA SNOMED Code(s): 303780881 (3) Hypertension Current Visit: Yes Status: Acute Code(s): I10 - ESSENTIAL (PRIMARY) HYPERTENSION SNOMED Code(s): 03429932 (4) CAD (coronary artery disease) Current Visit: Yes Status: Acute Code(s): I25.10 - ATHSCL HEART DISEASE OF [place] CORONARY ARTERY W/O ANG PCTRS SNOMED Code(s): 79762034 (5) Atypical chest pain Current Visit: No Status: Acute Code(s): R07.89 - OTHER CHEST PAIN SNOMED Code(s): 766782452 Plan: plan is to continue pulmonary consultation. Continue updrafts and IV steroids. Currently ocephin and Zithromax and patient is doing better overnight we'll continue to follow patient's progress and hopefully wean steroids soon to get him back to baseline and to turn around for discharge.
[2019-03-06] MEDS: methylPREDNISolone SOD SUCCI 125 MG/2 ML VIAL IV SCH ×4 (05:32→23:22)
[2019-03-06 07:26] LABS: Glucose,Whole Blood 131 mg/dL (75-99)
[2019-03-06] MEDS: BUDESONIDE 1 MG/2 ML NEBU INHALATION SCH ×2 (07:51→19:50)
[2019-03-06] MEDS: IPRATROPIUM-ALBUTEROL 3 ML NEB INHALATION SCH ×4 (07:51→19:50)
[2019-03-06] MEDS: FORMOTEROL FUMARATE 20 MCG/2 ML NEBU INHALATION SCH ×2 (07:51→19:50)
[2019-03-06] MEDS: INSULIN ASPART (NovoLOG) 100 UNIT/ML VIAL SQ SCH ×4 (08:29→20:06)
[2019-03-06] MEDS: FAMOTIDINE 20 MG TAB PO SCH (08:30)
[2019-03-06] MEDS: LISINOPRIL 20 MG TAB PO SCH ×2 (08:30→20:06)
[2019-03-06] MEDS: AZITHROMYCIN 500 MG TAB PO SCH (08:33)
[2019-03-06] MEDS: METOPROLOL SUCCINATE (ER) 100 MG TAB.ER.24H PO SCH (08:34)
--- NOTE | 2019-03-06 10:54 | P.PN ---
Subjective Progress Note Date: 03/06/19 Principal diagnosis: Acute exacerbation of chronic obstructive pulmonary disease. This is a 68-year-old white male patient of Dr. Balderas, who also follows with Dr. Gonzalez in the pulmonary clinic for his history of advanced COPD, with baseline FEV1 of 34% of predicted, and patient is not oxygen dependent at his baseline, he is usually maintained on a combination of Inkruse, Ventolin and nebulized albuterol. Patient is a long-time smoker, and he has been cutting down but shaji ble to quit completely yet, he is currently down to 5 cigarettes a day. Other medical history includes history of abdominal aortic aneurysm being monitored by Dr. Rivera, status post endovascular stent grafting. Hypertension, coronary arterial sclerosis, and autoimmune disorder under investigation by Dr. Goins. Patient developed nausea and vomiting, increasing shortness of breath, diarrhea, he had fever and chills at home yesterday in the afternoon. He denies anybody else being sick around him. He started experiencing increasing tightness in his chest, increasing cough, production of green sputum, he came into the emergency department for evaluation, he was found to be hypoxemic, at 88% on room air on presentation, but was afebrile, hemodynamically stable, extremely bronchospastic, congestion, coughing, influenza screen was negative, chest x-ray showed no evidence of acute pulmonary disease. Patient had chronic scattered parenchymal changes similar to previous exams. Lab work showed a white blood cell, of 12.9, hemoglobin of 14.3, quit in relation profile was within normal l imits, serum sodium was 135, the rest of electrolytes and renal profile were within normal limits, plasma lactic acid was less than 0.5, troponin is negative 1, influenza screen was negative. Patient has been started on Zithromax, IV steroids, nebulized bronchodilators. The patient is seen today 03/05/2019 in follow-up on the regular medical floor. He is currently awake and alert in no acute distress. He is breathing easier today as compared to yesterday. Still not back to his baseline. Still quite congested. Bronchospastic and wheezing. He is maintaining O2 saturations in the low 90s on 5 L/m per nasal cannula. He has been afebrile. Hemodynamically stable. Sputum culture is pending. Blood culture reveals no growth to date. He has been continued on DuoNeb inhalations, Pulmicort and Perforomist inhalations, IV Solu-Medrol. Antibiotics in the form of ceftriaxone and azithromycin. Influenza screen was negative. The patient is seen today 03/06/2019 in follow-up on the regular medical floor. He is awake and alert in no acute distress. Resting comfortably in bed. Still dyspneic with minimal exertion. Maintaining O2 saturations in the mid 90s on 2 L/m per nasal cannula. He is afebrile. Hemodynamically stable. Blood culture reveals no growth to date. Blood glucose 131. Objective - Vital Signs Vital signs: Vital Signs Temp 97.5 F L 03/06/19 05:00 Pulse 82 03/06/19 08:15 Resp 16 03/06/19 05:00 BP 94/55 03/06/19 05:16 Pulse Ox 95 03/06/19 05:00 Intake & Output 03/05/19 03/06/19 03/06/19 18:59 06:59 18:59 Intake Total 890 2630 Balance 890 2630 Weight 77.111 kg Intake: Intake, IV Titration 50 Amount cefTRIAXone 1 gm In 50 Sodium Chloride 0.9% 50 ml @ 100 mls/hr IVPB Q24HR [facility] Rx#:[id number] Oral 840 2630 Other: Voiding Method Toilet Toilet Urinal Urinal # Voids 3 4 - Exam GENERAL EXAM: Alert, pleasant, 68-year-old male patient on 2 L of oxygen with a pulse ox of 95% comfortable in no apparent distress. HEAD: Normocephalic/atraumatic. EYES: Normal reaction of pupils, equal size. Conjunctiva pink, sclera white. NOSE: Clear with pink turbinates. THROAT: No erythema or exudates. NECK: No masses, no JVD, no thyroid enlargement, no adenopathy. CHEST: No chest wall deformity. Symmetrical expansion. LUNGS: Equal air entry with frequent coughing spells, wheezing, scattered rhonchi bilaterally. CVS: Regular rate and rhythm, normal S1 and S2, no gallops, no murmurs, no rubs ABDOMEN: Soft, nontender. No hepatosplenomegaly, normal bowel sounds, no guarding or rigidity. EXTREMITIES: No clubbing, no edema, no cyanosis, 2+ pulses and upper and lower extremities. MUSCULOSKELETAL: Muscle strength and tone normal. SPINE: No scoliosis or deformity SKIN: No rashes CENTRAL NERVOUS SYSTEM: No focal deficits, tone is normal in all 4 extremities. PSYCHIATRIC: Alert and oriented -3. Appropriate affect. Intact judgment and insight. - Labs CBC & Chem 7: 03/04/19 05:07 03/04/19 05:07 Labs: Abnormal Lab Results - Last 24 Hours (Table) 03/05/19 03/05/19 03/05/19 Range/Units 10:52 16:57 20:10 POC Glucose (mg/dL) 167 H 172 H 155 H (75-99) mg/dL 03/06/19 Range/Units 07:22 POC Glucose (mg/dL) 131 H (75-99) mg/dL Microbiology - Last 24 Hours (Table) 03/04/19 05:07 Blood Culture - Preliminary Blood No Growth after 48 hours Assessment and Plan Assessment: Assessment: #1. Acute exacerbation of chronic obstructive pulmonary disease, chest x-ray showed no acute pulmonary process, influenza screen negative #2. Acute hypoxemic failure related to the above #3. Advanced COPD, stage III, with baseline FEV1 of 34% of predicted, not oxygen dependent at baseline #4. Hypertension #5. History of abdominal aortic aneurysm status post endovascular stent graft ing #6. Coronary artery disease #7. Autoimmune disorder under investigation by Dr. Goins #8. Preserved LV function with an ejection fraction of 50% and moderate LVH #9. Current every day smoker, down to 5 cigarettes currently has been cutting back Plan: The patient was seen and evaluated by Dr. Soria. We'll continue with the current treatment plan. He is again educated regarding the importance of complete smoking cessation. He remains on ceftriaxone and azithromycin along with DuoNeb inhalations, Pulmicort and Perforomist inhalations, IV Solu-Medrol. We will continue to follow and make further recommendations based on his clinical status. Possible discharge in the a.m. I, the cosigning physician, performed a history & physical examination of the patient. Lungs sounds with bilateral end expiratory wheezing, few scattered rhonchi. Diminished. Maintaining good O2 saturations in the 90s on 2 L/m per nasal cannula. I discussed the assessment and plan of care with my nurse practitioner, Lynda Kaur. I attest to the above note as dictated by her.
[2019-03-06 11:46] LABS: Glucose,Whole Blood 124 mg/dL (75-99)
[2019-03-06] MEDS: amLODIPine 5 MG TAB PO SCH (13:02)
[2019-03-06 17:21] LABS: Glucose,Whole Blood 117 mg/dL (75-99)
[2019-03-06 19:59] LABS: Glucose,Whole Blood 155 mg/dL (75-99)
[2019-03-06] MEDS: ATORVASTATIN 80 MG TAB PO SCH (20:06)
--- NOTE | 2019-03-06 22:11 | P.PN ---
Subjective Progress Note Date: 03/06/19 patient is 68-year-old who was admitted for exacerbation of COPD. Currently on IV hydration. And IV steroids Still requiring 2 L of oxygen per nasal cannula. atient is feeling somewhat better today his cough is less his wheezing is improved. Objective - Vital Signs Vital signs: Vital Signs Temp 97.5 F L 03/06/19 05:00 Pulse 88 03/06/19 12:08 Resp 16 03/06/19 05:00 BP 94/55 03/06/19 05:16 Pulse Ox 95 03/06/19 05:00 Intake & Output 03/05/19 03/06/19 03/06/19 18:59 06:59 18:59 Intake Total 890 2630 Balance 890 2630 Weight 77.111 kg Intake: Intake, IV Titration 50 Amount cefTRIAXone 1 gm In 50 Sodium Chloride 0.9% 50 ml @ 100 mls/hr IVPB Q24HR [facility] Rx#:[id number] Oral 840 2630 Other: Voiding Method Toilet Toilet Urinal Urinal # Voids 3 4 - Exam GENERAL: This is a 68-year-old in mild distress at the time of examination. Pleasant and cooperative. HEENT: Head is atraumatic, normocephalic. Pupils are equal, round, and reactive to light. Sclerae anicteric. Conjunctivae are clear. Mucus membranes of the mouth are moist. Neck is supple. RESPIRATORY: bilateral wheezes, rales, CARDIOVASCULAR: Regular rate and rhythm. S1 and S2 noted. No systolic or diastolic murmur auscultated. No JVD noted. No S3 or S4 noted. GASTROINTESTINAL: No distention noted. Abdomen soft and round. Normal active bowel sounds auscultated x 4 quadrants. No pain or tenderness noted upon palpa tion. INTEGUMENTARY: No cyanosis. No jaundice. No rashes noted. No cellulitis noted. EXTREMITIES: 2+ peripheral pulses. No evidence of peripheral edema. No calf tenderness noted. NEUROLOGIC: Cranial nerves II-XII intact. PSYCHIATRIC: Awake, alert, and oriented X 3. Appropriate affect. Intact judgem ent and insight. - Labs CBC & Chem 7: 03/04/19 05:07 03/04/19 05:07 Labs: Abnormal Lab Results - Last 24 Hours (Table) 03/05/19 03/05/19 03/06/19 Range/Units 16:57 20:10 07:22 POC Glucose (mg/dL) 172 H 155 H 131 H (75-99) mg/dL 03/06/19 Range/Units 11:36 POC Glucose (mg/dL) 124 H (75-99) mg/dL Microbiology - Last 24 Hours (Table) 03/04/19 05:07 Blood Culture - Preliminary Blood No Growth after 48 hours Assessment and Plan (1) Acute exacerbation of COPD with asthma Current Visit: Yes Status: Acute Code(s): J44.1 - CHRONIC OBSTRUCTIVE PULMONARY DISEASE W (ACUTE) EXACERBATION; J45.901 - UNSPECIFIED ASTHMA WITH (ACUTE) EXACERBATION SNOMED Code(s): 3111367884818 (2) Hypoxia Current Visit: No Status: Acute Code(s): R09.02 - HYPOXEMIA SNOMED Code(s): 304328727 (3) Hypertension Current Visit: Yes Status: Acute Code(s): I10 - ESSENTIAL (PRIMARY) HYPERTENSION SNOMED Code(s): 04687962 (4) CAD (coronary artery disease) Current Visit: Yes Status: Acute Code(s): I25.10 - ATHSCL HEART DISEASE OF [place] CORONARY ARTERY W/O ANG PCTRS SNOMED Code(s): 12927424 (5) Atypical chest pain Current Visit: No Status: Acute Code(s): R07.89 - OTHER CHEST PAIN SNOMED Code(s): 954946287 Plan: plan is to continue pulmonary consultation. Continue updrafts and IV steroids. Currently ocephin and Zithromax and patient is doing better overnight we'll continue to follow patient's progress and hopefully wean steroids soon to get him back to baseline and to turn around for discharge. anticipated discharge the next 24-36 hours on by mouth steroids.
[2019-03-07] MEDS: guaiFENesin-Coden 100-10MG/5ML 10 ML CUP PO PRN (01:46)
[2019-03-07] MEDS: methylPREDNISolone SOD SUCCI 125 MG/2 ML VIAL IV SCH ×2 (06:03→12:57)
[2019-03-07 07:09] LABS: Glucose,Whole Blood 143 mg/dL (75-99)
[2019-03-07] MEDS: INSULIN ASPART (NovoLOG) 100 UNIT/ML VIAL SQ SCH ×2 (08:04→12:39)
[2019-03-07] MEDS: METOPROLOL SUCCINATE (ER) 100 MG TAB.ER.24H PO SCH (08:05)
[2019-03-07] MEDS: AZITHROMYCIN 500 MG TAB PO SCH (08:05)
[2019-03-07] MEDS: LISINOPRIL 20 MG TAB PO SCH (08:05)
[2019-03-07] MEDS: FAMOTIDINE 20 MG TAB PO SCH (08:05)
[2019-03-07] MEDS: FORMOTEROL FUMARATE 20 MCG/2 ML NEBU INHALATION SCH (08:41)
[2019-03-07] MEDS: BUDESONIDE 1 MG/2 ML NEBU INHALATION SCH (08:41)
[2019-03-07] MEDS: IPRATROPIUM-ALBUTEROL 3 ML NEB INHALATION SCH ×2 (08:42→12:34)
--- NOTE | 2019-03-07 10:18 | P.DS ---
Providers Date of admission: 03/05/19 12:55 Attending physician: Jamie Balderas Consults: 03/04/19 07:42 Consult Physician Stat Consulting Provider: Lisa Gonzalez Consult Reason/Comments: COPD Do you want consulting provider notified?: Yes, Notify in am Primary care physician: Jamie Balderas Hospital Course: 68-year-old pleasant male was admitted for COPD exacerbation, clinically doing well not requiring oxygen will ablate the patient patient doesn't require any oxygen patient will be discharged today. Patient will be discharged on weaning dose of steroids that her no evidence of pneumonia because of which I'll give him azithromycin for 3 more days for bronchitis and will be discharged. Patient air entry bilateral lung jean is limited. PHYSICAL EXAMINATION: GENERAL: The patient is alert and oriented x3, not in any acute distress. Well developed, well nourished. HEENT: Pupils are round and equally reacting to light. EOMI. No scleral icterus. No conjunctival pallor. Normocephalic, atraumatic. No pharyngeal erythema. No thyromegaly. CARDIOVASCULAR: S1 and S2 present. No murmurs, rubs, or gallops. PULMONARY: decreased air entry into bilateral lung fieldsno wheezing was appreciated. ABDOMEN: Soft, nontender, nondistended, normoactive bowel sounds. No palpable organomegaly. MUSCULOSKELETAL: No joint swelling or deformity. EXTREMITIES: No cyanosis, clubbing, or pedal edema. NEUROLOGICAL: Gross neurological examination did not reveal any focal deficits. SKIN: No rashes. precipitated dictation from Dr. Balderas from yesterday for further details of hospital physician course and other medical problems that were addressed here. Patient Condition at Discharge: Stable Plan - Discharge Summary Discharge Rx Participant: No New Discharge Prescriptions: New predniSONE 10 mg PO DAILY #30 tab Azithromycin [Zithromax] 500 mg PO DAILY #3 tab Tiotropium [place] [Spiriva] 1 cap INHALATION DAILY #1 device Continue Albuterol Inhaler [Ventolin Hfa Inhaler] 2 puff INHALATION RT-Q4H PRN PRN Reason: Wheezing amLODIPine [Norvasc] 5 mg PO DAILY@1200 #30 tab Atorvastatin [Lipitor] 80 mg PO HS Metoprolol Succinate (ER) [Toprol XL] 100 mg PO DAILY Albuterol Nebulized [Ventolin Nebulized] 2.5 mg INHALATION RT-QID Umeclidinium [place] [Incruse Ellipta] 1 puff INHALATION RT-DAILY Lisinopril [Zestril] 20 mg PO BID Famotidine [Pepcid] 20 mg PO DAILY Discharge Medication List Albuterol Inhaler [Ventolin Hfa Inhaler] 2 puff INHALATION RT-Q4H PRN 03/02/16 [History] amLODIPine [Norvasc] 5 mg PO DAILY@1200 #30 tab 02/23/17 [Rx] Albuterol Nebulized [Ventolin Nebulized] 2.5 mg INHALATION RT-QID 05/04/18 [History] Atorvastatin [Lipitor] 80 mg PO HS 05/04/18 [History] Metoprolol Succinate (ER) [Toprol XL] 100 mg PO DAILY 05/04/18 [History] Famotidine [Pepcid] 20 mg PO DAILY 03/04/19 [History] Lisinopril [Zestril] 20 mg PO BID 03/04/19 [History] Umeclidinium [place] [Incruse Ellipta] 1 puff INHALATION RT-DAILY 03/04/19 [History] Azithromycin [Zithromax] 500 mg PO DAILY #3 tab 03/07/19 [Rx] Tiotropium [place] [Spiriva] 1 cap INHALATION DAILY #1 device 03/07/19 [Rx] predniSONE 10 mg PO DAILY #30 tab 03/07/19 [Rx] Follow up Appointment(s)/Referral(s): Wesley Soria MD [STAFF PHYSICIAN] - 1 Week Jamie Balderas DO [Primary Care Provider] - 3 Days
[2019-03-07 11:41] LABS: Glucose,Whole Blood 106 mg/dL (75-99)
[2019-03-07 12:02] VITALS: BP 129/72; RESP 17; TEMP 98.3
--- NOTE | 2019-03-07 12:25 | P.PN ---
Subjective Progress Note Date: 03/07/19 Principal diagnosis: Acute exacerbation of chronic obstructive pulmonary disease. This is a 68-year-old white male patient of Dr. Balderas, who also follows with Dr. Gonzalez in the pulmonary clinic for his history of advanced COPD, with baseline FEV1 of 34% of predicted, and patient is not oxygen dependent at his baseline, he is usually maintained on a combination of Inkruse, Ventolin and nebulized albuterol. Patient is a long-time smoker, and he has been cutting down but shaji ble to quit completely yet, he is currently down to 5 cigarettes a day. Other medical history includes history of abdominal aortic aneurysm being monitored by Dr. Rivera, status post endovascular stent grafting. Hypertension, coronary arterial sclerosis, and autoimmune disorder under investigation by Dr. Goins. Patient developed nausea and vomiting, increasing shortness of breath, diarrhea, he had fever and chills at home yesterday in the afternoon. He denies anybody else being sick around him. He started experiencing increasing tightness in his chest, increasing cough, production of green sputum, he came into the emergency department for evaluation, he was found to be hypoxemic, at 88% on room air on presentation, but was afebrile, hemodynamically stable, extremely bronchospastic, congestion, coughing, influenza screen was negative, chest x-ray showed no evidence of acute pulmonary disease. Patient had chronic scattered parenchymal changes similar to previous exams. Lab work showed a white blood cell, of 12.9, hemoglobin of 14.3, quit in relation profile was within normal l imits, serum sodium was 135, the rest of electrolytes and renal profile were within normal limits, plasma lactic acid was less than 0.5, troponin is negative 1, influenza screen was negative. Patient has been started on Zithromax, IV steroids, nebulized bronchodilators. The patient is seen today 03/05/2019 in follow-up on the regular medical floor. He is currently awake and alert in no acute distress. He is breathing easier today as compared to yesterday. Still not back to his baseline. Still quite congested. Bronchospastic and wheezing. He is maintaining O2 saturations in the low 90s on 5 L/m per nasal cannula. He has been afebrile. Hemodynamically stable. Sputum culture is pending. Blood culture reveals no growth to date. He has been continued on DuoNeb inhalations, Pulmicort and Perforomist inhalations, IV Solu-Medrol. Antibiotics in the form of ceftriaxone and azithromycin. Influenza screen was negative. The patient is seen today 03/06/2019 in follow-up on the regular medical floor. He is awake and alert in no acute distress. Resting comfortably in bed. Still dyspneic with minimal exertion. Maintaining O2 saturations in the mid 90s on 2 L/m per nasal cannula. He is afebrile. Hemodynamically stable. Blood culture reveals no growth to date. Blood glucose 131. The patient is seen today 03/07/2019 in follow-up on the regular medical floor. He's been up ambulating with assistance. He is desaturating to 85% with a short walk. He will need home oxygen. He denies any worsening shortness of breath, cough or congestion. He's been afebrile. Hemodynamically stable. Blood culture reveals no growth. He has been continued on DuoNeb inhalations, Pulm icort and Perforomist inhalations, IV Solu-Medrol. Antibiotics in the form of ceftriaxone and azithromycin. Objective - Vital Signs Vital signs: Vital Signs Temp 98.3 F 03/07/19 12:02 Pulse 61 03/07/19 12:02 Resp 17 03/07/19 12:02 BP 129/72 03/07/19 12:02 Pulse Ox 93 L 03/07/19 12:02 Intake & Output 03/06/19 03/07/19 03/07/19 18:59 06:59 18:59 Intake Total 1240 290 Balance 1240 290 Intake: Intake, IV Titration 100 Amount cefTRIAXone 1 gm In 100 Sodium Chloride 0.9% 50 ml @ 100 mls/hr IVPB Q24HR [facility] Rx#:[id number] Oral 1140 290 Other: Voiding Method Toilet Toilet Toilet Urinal # Voids 4 1 - Exam GENERAL EXAM: Alert, pleasant, 68-year-old male patient, comfortable in no apparent distress. HEAD: Normocephalic/atraumatic. EYES: Normal reaction of pupils, equal size. Conjunctiva pink, sclera white. NOSE: Clear with pink turbinates. THROAT: No erythema or exudates. NECK: No masses, no JVD, no thyroid enlargement, no adenopathy. CHEST: No chest wall deformity. Symmetrical expansion. LUNGS: Equal air entry with end expiratory wheeze, diminished CVS: Regular rate and rhythm, normal S1 and S2, no gallops, no murmurs, no rubs ABDOMEN: Soft, nontender. No hepatosplenomegaly, normal bowel sounds, no guarding or rigidity. EXTREMITIES: No clubbing, no edema, no cyanosis, 2+ pulses and upper and lower extremities. MUSCULOSKELETAL: Muscle strength and tone normal. SPINE: No scoliosis or deformity SKIN: No rashes CENTRAL NERVOUS SYSTEM: No focal deficits, tone is normal in all 4 extremities. PSYCHIATRIC: Alert and oriented -3. Appropriate affect. Intact judgment and insight. - Labs CBC & Chem 7: 03/04/19 05:07 03/04/19 05:07 Labs: Abnormal Lab Results - Last 24 Hours (Table) 03/06/19 03/06/19 03/07/19 Range/Units 17:17 19:57 07:04 POC Glucose (mg/dL) 117 H 155 H 143 H (75-99) mg/dL 03/07/19 Range/Units 11:40 POC Glucose (mg/dL) 106 H (75-99) mg/dL Microbiology - Last 24 Hours (Table) 03/04/19 05:07 Blood Culture - Preliminary Blood No Growth after 72 hours Assessment and Plan Assessment: Assessment: #1. Acute exacerbation of chronic obstructive pulmonary disease, chest x-ray sh owed no acute pulmonary process, influenza screen negative #2. Acute hypoxemic failure related to the above #3. Advanced COPD, stage III, with baseline FEV1 of 34% of predicted, not oxygen dependent at baseline #4. Hypertension #5. History of abdominal aortic aneurysm status post endovascular stent grafting #6. Coronary artery disease #7. Autoimmune disorder under investigation by Dr. Goins #8. Preserved LV function with an ejection fraction of 50% and moderate LVH #9. Current every day smoker, down to 5 cigarettes currently has been cutting back Plan: The patient was seen and evaluated by Dr. Soria. He is cleared for discharge from the pulmonary standpoint. He does require home oxygen. He will complete course of antibiotics. Complete prednisone burst and taper starting at 40 mg daily for 4 days. He is again educated regarding the importance of complete smoking cessation. He is to follow-up in our clinic in 1-2 weeks' time. He is encouraged to call sooner with any recurrence of symptoms or any other questions or concerns. I, the cosigning physician, performed a history & physical examination of the patient. Lungs sounds with bilateral end expiratory wheezing. Diminished. Maintaining good O2 saturations in the 90s on 2 L/m per nasal cannula. I discussed the assessment and plan of care with my nurse practitioner, Lynda Kaur. I attest to the above note as dictated by her.
[2019-03-07 12:45] VITALS: PULSE 64
[2019-03-07] MEDS: amLODIPine 5 MG TAB PO SCH (12:57)
== END 2019-03-07 14:30 | disposition home or self-care (01) | DRG 190 ==
LOC: EC 04:13 → 3NMEDONC 07:38 → OBSVTOIN 03-05 12:55 → 3NMEDONC 03-06 17:41
PROVIDERS: ADMIT Family Medicine; ATTEND Family Medicine
DX: J44.1 Chronic obstructive pulmonary disease with (acute) exacerbation (principal); J96.21 Acute and chronic respiratory failure with hypoxia; J45.901 Unspecified asthma with (acute) exacerbation; E78.5 Hyperlipidemia, unspecified; F17.210 Nicotine dependence, cigarettes, uncomplicated; I25.10 Atherosclerotic heart disease of native coronary artery without angina pectoris; K21.9 Gastro-esophageal reflux disease without esophagitis; Z79.82 Long term (current) use of aspirin; Z79.899 Other long term (current) drug therapy; Z80.1 Family history of malignant neoplasm of trachea, bronchus and lung; Z82.49 Family history of ischemic heart disease and other diseases of the circulatory system; Z86.79 Personal history of other diseases of the circulatory system; Z87.442 Personal history of urinary calculi; Z86.010 Personal history of colon polyps; Z98.41 Cataract extraction status, right eye; Z96.1 Presence of intraocular lens; D89.89 Other specified disorders involving the immune mechanism, not elsewhere classified; Z87.01 Personal history of pneumonia (recurrent); R07.9 Chest pain, unspecified; Z88.0 Allergy status to penicillin; Z79.51 Long term (current) use of inhaled steroids; I11.9 Hypertensive heart disease without heart failure
CPT/HCPCS: 36415; 71046; 80053; 81001; 83605; 84484; 85025; 85610; 85730; 87040; 87502; 93005; 94640; 94760; 96361; 96374; 99285

== ENCOUNTER → 2019-06-22 | Outpatient (CLI) | payer MEDICARE, OTHER ==
--- NOTE | 2019-06-22 12:32 | XR ---
EXAMINATION TYPE: XR chest 2V DATE OF EXAM: 06/22/2019 COMPARISON: CXR from 2 weeks ago. HISTORY: Pre open back surgery. TECHNIQUE: Frontal and lateral views of the chest are obtained. FINDINGS: There is background chronic emphysematous and parenchymal fibrotic changes without suspici ous new focal air space opacity, pleural effusion, or pneumothorax seen. The cardiac silhouette size is enlarged with atherosclerotic and ectatic aorta. The osseous structures are intact. IMPRESSION: Chronic changes without acute pulmonary process. No significant change from prior.
[2019-06-22 13:31] LABS: African American GFR (CKD) >90 (>60 ml/min/1.73 sqM); Anion Gap 4 mmol/L; Blood Urea Nitrogen 15 mg/dL (9-20); Calcium 8.9 mg/dL (8.4-10.2); Carbon Dioxide 33 mmol/L (22-30); Chloride 97 mmol/L (98-107); Glucose 86 mg/dL (74-99); Non-African American GFR(CKD) >90 (>60 ml/min/1.73 sqM); Potassium 4.5 mmol/L (3.5-5.1); Sodium 134 mmol/L (137-145)
[2019-06-22 13:37] LABS: Appearance,Urine Clear (Clear); Bilirubin,Urine Negative (Negative); Blood,Urine Negative (Negative); Color,Urine Yellow; Glucose,Urine (UA) Negative (Negative); Ketones,Urine Negative (Negative); Leukocyte Esterase,Urine Trace (Negative); Mucus,Urine Occasional /hpf; Nitrite,Urine Negative (Negative); PH, Urine 6.5 (5.0-8.0); Protein,Urine Trace (Negative); RBC,Urine 2 /hpf (0-5); Specific Gravity,Urine 1.018 (1.001-1.035); WBC,Urine 2 /hpf (0-5)
[2019-06-22 13:38] LABS: Basophils # (A) 0.1 k/uL (0-0.2); Basophils % (A) 1 %; Eosinophils # (A) 0.2 k/uL (0-0.7); Eosinophils % (A) 3 %; HCT 46.3 % (39.0-53.0); HGB 15.7 gm/dL (13.0-17.5); Lymphocytes # (A) 1.1 k/uL (1.0-4.8); Lymphocytes % (A) 20 %; MCH 30.4 pg (25.0-35.0); MCHC 33.8 g/dL (31.0-37.0); MCV 89.8 fL (80.0-100.0); Monocytes # (A) 0.4 k/uL (0-1.0); Monocytes % (A) 7 %; Neutrophils # (A) 3.8 k/uL (1.3-7.7); Neutrophils % (A) 67 %; Platelet Count 244 k/uL (150-450); RBC 5.15 m/uL (4.30-5.90); RDW 13.3 % (11.5-15.5); WBC 5.6 k/uL (3.8-10.6)
[2019-06-22 13:49] LABS: INR 1.1 (<1.2); Partial Thromboplastin Time 25.6 sec (22.0-30.0); Prothrombin Time 11.5 sec (9.0-12.0)
== END | disposition home or self-care (01) ==
LOC: LABPAT 11:58
PROVIDERS: ATTEND Orthopaedic Surgery Orthopaedic Surgery of the Spine
DX: Z01.812 Encounter for preprocedural laboratory examination (principal); M48.54XA Collapsed vertebra, not elsewhere classified, thoracic region, initial encounter for fracture
CPT/HCPCS: 36415; 71046; 80048; 81001; 85025; 85610; 85730; 86850; 86900; 86901

== ENCOUNTER → 2019-06-29 | Day surgery (SDC) | payer MEDICARE, OTHER ==
[2019-06-25 16:09] VITALS: BMI 23.8
[~2019-06-29] MED LIST: ALBUTEROL NEBULIZED 2.5 MG/3 ML INHALATION SCH; ATORVASTATIN 80 MG TAB PO SCH; BENZOCAINE/MENTHOL LOZENG 1 EACH LOZENGE MUCOUS MEM PRN; CLINDAMYCIN 600 MG in DEXTROSE 5% IN WATER 50 ML IVPB STA; DEXAMETHASONE SOD PHOSPHATE 10 MG/ML 1 ML VIAL IV ONE; FAMOTIDINE 20 MG TAB PO SCH; GLYCOPYRROLATE 0.2 MG/ML 2 ML VIAL ONE; HYDROcodone/APAP 5-325MG 1 EACH TAB PO PRN; HYDROmorphone 0.5 MG/0.5 ML SYRINGE IVP PRN; IOPAMIDOL M200 10 ML VIAL MISCELLANE ONE; IPRATROPIUM-ALBUTEROL 3 ML NEB INHALATION STA; KETAMINE 10 MG/ML 20 ML VIAL ONE; LACTATED RINGERS 1,000 ML IV ONE; LACTATED RINGERS 1,000 ML IV SCH; LIDOCAINE 0.5%-EPI 1:200,000 50 ML VIAL SQ ONE; LIDOCAINE 1% 20 ML VIAL (10MG/ML) FOR IV START INTRADERMA ONE; LISINOPRIL 20 MG TAB PO SCH; METOPROLOL SUCCINATE (ER) 100 MG TAB.ER.24H PO SCH; MIDAZOLAM 2 MG/2 ML VIAL IV PRN; MIDAZOLAM 2 MG/2 ML VIAL ONE; NON FORMULARY DRUG (Umeclidinium Bromide [Incruse Ellipta] 1 PUFF) INHALATION SCH; ONDANSETRON 4 MG/2 ML VIAL IVP ONE; ONDANSETRON 4 MG/2 ML VIAL IVP PRN; PHENYLEPHRINE-0.9% NACL SYG 1 MG/10 ML SYRINGE ONE; PROPOFOL 10 MG/ML 20 ML VIAL IV ONE; ROCURONIUM BROMIDE 10 MG/ML 10 ML VIAL IV ONE; SODIUM CHLORIDE 0.9% 1,000 ML IV SCH; SODIUM CHLORIDE 0.9% IRRIGATIO 1,000 ML IRRIGATION ONE; SUCCINYLCHOLINE CHLORIDE 100 MG/5 ML SYR IV ONE; TRAMADOL HCL 50 MG PO SCH; amLODIPine 5 MG TAB PO SCH; ePHEDrine SULFATE/0.9% NACL/PF 50 MG/5 ML SYRINGE IV ONE; fentaNYL (PF) 50 MCG/ML 2 ML AMP ONE; guaiFENesin-DM 600/30MG 1 EACH TAB.ER.12H PO SCH
[2019-06-29 15:17] VITALS: TEMP 97.3
--- NOTE | 2019-06-29 15:27 | FL ---
EXAMINATION TYPE: FL guidance operating room, XR thoracic spine 2V DATE OF EXAM: 06/29/2019 CLINICAL HISTORY: T4 fracture. TECHNIQUE: Fluoroscopy. 2 views thoracic spine intraoperatively. COMPARISON: Thoracic spine x-ray June 08, 2019. FINDINGS: Fluoroscopic guidance was provided during kyphoplasty procedure performed by Dr. Villarreal. A total of 71 seconds of fluoroscopic time was utilized during the procedure and 3 spot intraoperative images are acquired. Images acquired show advancement of catheter for cement injection at the [id number] compression fracture in the upper to midthoracic spine with successful cement injection noted. Frontal view is u nderpenetrated. IMPRESSION: As Above.
[2019-06-29] MEDS: HYDROmorphone 0.5 MG/0.5 ML SYRINGE IVP PRN ×4 (15:28→16:35)
--- NOTE | 2019-06-29 15:31 | P.OP ---
Date of Procedure: 06/29/19 Preoperative Diagnosis: T4 vertebral compression fracture, acute traumatic Thoracic back pain Postoperative Diagnosis: Same Anesthesia: GETA Pathology: other (T4 vertebral body biopsy sent to pathology) Condition: stable Disposition: PACU Description of Procedure: BRIEF OPERATIVE NOTE Preoperative Diagnosis: T4 vertebral compression fracture, acute traumatic Thoracic back pain Postoperative Diagnosis: Same Procedure: Kyphoplasty of T4 Vertebral body biopsy of T4 Use of biplanar fluoroscopic guidance Surgeon: Dr. Villarreal Reptile Keeper: Chacho Sierra is present throughout the entire the case persistence during positioning, dissection, exposure, visualization, and all crucial elements of the case as well as closure. Anesthesia: General anesthesia Estimated blood loss: Less than 10 mL Specimen: Vertebral body biopsy of T4 sent to pathology in formalin Complications: None apparent Components implanted: Bone cement approximate 6 mL Disposition: To recovery room in good stable condition. OPERATIVE INDICATIONS The patient has been having issues in their back ever since sustaining an injury. He had sustained a fall about 4 weeks ago at home and we'll had new onset of thoracic back pain. Patient was having severe troubles with any sort of mobilization and ambulation and endotracheal of difficulty with his pain regularly 8-10 out of 10.. The patient has been through conservative treatment. They attempted conservative care with bracing however they're not having any benefit despite brace use. They continue to have significant pain and debility due to their fracture. We discussed various treatment options including surgery, and the patient wishes to proceed with surgery We discussed the risk, patient's alternatives and benefits of surgery including but not limited to, risk of bleeding risk of infection, risk of need for further surgery, risk of decreased, loss of motion, loss of function, cement extravasation, nerve damage, paralysis, heart attack, blindness and . OPERATIVE SUMMARY After discussing all the risks, patient alternatives and benefits at length, the patient elected to proceed with surgical intervention, signed informed consent, and presented for their procedure. The patient was seen and examined in the preoperative holding area and the surgical site was marked. The patient was given antibiotics and brought to the operating room. The patient was sedated and intubated by anesthesia in standard fashion. The patient was positioned on to the operating room table in a prone position on the appropriate well-padded and well molded bilateral chest rolls. We were careful to pad any bony prominences and pressure points. We were careful to maintain the patient's cervical spine and good neutral alignment and position throughout. We used 2 C-arm machines to establish biplanar fluoroscopic guidance in AP and lateral positions. We were able to localize the fractures appropriately at T4. The patient was prepped and draped in a normal standard fashion. An appropriate timeout and keystone protocol performed. We were able to proceed with the surgery. The local wound area was infiltrated with local anesthetic. An incision was made over the lateral aspect of the pedicle over the appropriate levels with a small 2 mm stab incision over the right side of T4. Intraoperative fluoroscopy was taken which showed a marker at the appropriate level. With the appropriate level positively confirmed, I was able to position a sharp trocar over the lateral aspect of the pedicle. As able to advance the trocar into the pedicle and into the posterior aspect of vertebral body being careful to avoid penetration cephalad caudad or medially. The trocar was placed appropriately into the posterior aspect of vertebral body at the appropriate levels. This was confirmed with C-arm guidance. With the trocar intact I was then able to take a bone biopsy with a biopsy punch or a bony drill. The biopsy specimen of T4 vertebral body was passed off to be sent to pathology in formalin. I was then able to place the kyphoplasty balloon within the vertebral body. The position was checked on C-arm. I was able to inflate the balloon under low pressure and visualization with C-arm. The balloon was well enclosed within the vertebral body at T4. The cement was prepared. With the cement at appropriate working condition the balloons were deflated and removed. I was able to place bony cement with trocar with the cement delivery device under low pressure. It had good fill within the vertebral body. There is no evidence of any extravasation of the cement posteriorly toward the canal. The cement was well contained at the appropriate levels. The cement was allowed to cure appropriately. The trochars removed and final images were taken on C-arm. This showed the cement at the appropriate levels of T4. We were able to proceed with closure. The wound was cleaned and dried and dressed with the appropriate dressing. The drapes were broken down. The patient was gently rolled back onto their hospital bed being careful to maintain their cervical spine and good neutral alignment and position. They were woken up by anesthesia, extubated, and brought to the recovery room in good stable condition. The patient will be admitted to the hospital for observation and for appropriate postoperative care, medical management and monitoring. We will continue to follow them closely about the postoperative course.
[2019-06-29 17:00] VITALS: RESP 20
[2019-06-29 17:21] VITALS: BP 102/56; PULSE 56
== END | disposition home or self-care (01) ==
LOC: OR 12:02
PROVIDERS: ATTEND Orthopaedic Surgery Orthopaedic Surgery of the Spine
DX: S22.040A Wedge compression fracture of fourth thoracic vertebra, initial encounter for closed fracture (principal); W19.XXXA Unspecified fall, initial encounter; N28.9 Disorder of kidney and ureter, unspecified; J98.4 Other disorders of lung; I25.10 Atherosclerotic heart disease of native coronary artery without angina pectoris; I73.9 Peripheral vascular disease, unspecified; I10 Essential (primary) hypertension; F17.210 Nicotine dependence, cigarettes, uncomplicated; E78.2 Mixed hyperlipidemia; I71.4 Abdominal aortic aneurysm, without rupture; I42.9 Cardiomyopathy, unspecified; I49.3 Ventricular premature depolarization; J44.9 Chronic obstructive pulmonary disease, unspecified; K21.9 Gastro-esophageal reflux disease without esophagitis; Z79.899 Other long term (current) drug therapy; Z79.82 Long term (current) use of aspirin; Z88.0 Allergy status to penicillin; Z98.890 Other specified postprocedural states; Z83.3 Family history of diabetes mellitus; Z82.49 Family history of ischemic heart disease and other diseases of the circulatory system; Z90.49 Acquired absence of other specified parts of digestive tract; Z98.49 Cataract extraction status, unspecified eye
CPT/HCPCS: 94640; 88307; 88311; 72070; 22513; C1713; J2250; J0690; J2405; J3010; J2370; J0330; J2704; J1170; Q9966; 86850; 86900; 86901

== ENCOUNTER 2019-07-02 09:12 | Emergency (ER) | payer MEDICARE, OTHER ==
[2019-07-02] MEDS ORDERED: SODIUM CHLORIDE 0.9% 1,000 ML IV STA (09:53)
[2019-07-02] MEDS ORDERED: IPRATROPIUM-ALBUTEROL 3 ML NEB INHALATION STA (10:06)
[2019-07-02 10:42] VITALS: RESP 18
[2019-07-02 10:49] LABS: Basophils # (A) 0.1 k/uL (0-0.2); Basophils % (A) 2 %; Eosinophils # (A) 0.2 k/uL (0-0.7); Eosinophils % (A) 4 %; HCT 46.3 % (39.0-53.0); HGB 15.5 gm/dL (13.0-17.5); Lymphocytes % (A) 17 %; MCH 29.3 pg (25.0-35.0); MCHC 33.5 g/dL (31.0-37.0); MCV 87.6 fL (80.0-100.0); Mean Platelet Volume 7.7; Monocytes # (A) 0.5 k/uL (0-1.0); Monocytes % (A) 9 %; Neutrophils # (A) 3.8 k/uL (1.3-7.7); Neutrophils % (A) 66 %; Platelet Count 225 k/uL (150-450); RBC 5.29 m/uL (4.30-5.90); RDW 13.5 % (11.5-15.5); WBC 5.7 k/uL (3.8-10.6)
[2019-07-02 10:59] LABS: ALT 10 U/L (4-49); AST 19 U/L (17-59); African American GFR (CKD) >90 (>60 ml/min/1.73 sqM); Albumin 3.7 g/dL (3.5-5.0); Alkaline Phosphatase 94 U/L (38-126); Anion Gap 7 mmol/L; Blood Urea Nitrogen 8 mg/dL (9-20); Calcium 8.7 mg/dL (8.4-10.2); Carbon Dioxide 29 mmol/L (22-30); Chloride 98 mmol/L (98-107); Glucose 99 mg/dL (74-99); Magnesium 1.7 mg/dL (1.6-2.3); Non-African American GFR(CKD) >90 (>60 ml/min/1.73 sqM); Sodium 134 mmol/L (137-145); Total Bilirubin 0.7 mg/dL (0.2-1.3); Total Protein 6.2 g/dL (6.3-8.2)
[2019-07-02 11:02] LABS: INR 1.1 (<1.2); Prothrombin Time 11.1 sec (9.0-12.0)
--- NOTE | 2019-07-02 11:15 | XR ---
EXAMINATION TYPE: XR chest 2V DATE OF EXAM: 07/02/2019 COMPARISON: 06/22/2019 HISTORY: Weakness and nausea TECHNIQUE: Frontal and lateral views of the chest are obtained. FINDINGS: Pulmonary hyperinflation of underlying COPD. Diffuse osseous demineralization and upper th oracic kyphoplasty performed in the interim. No new focal consolidation, pleural effusion or pneumoth orax. Cardiomediastinal silhouette is stable. IMPRESSION: No acute cardiopulmonary process. New upper thoracic kyphoplasty. Underlying COPD.
--- NOTE | 2019-07-02 12:05 | ED ---
Weakness HPI - General Chief complaint: Weakness Stated complaint: Weakness, dizzy, nausea Time Seen by Provider: 07/02/19 09:53 Source: patient, RN notes reviewed Mode of arrival: ambulatory Limitations: no limitations - History of Present Illness Initial comments: 68-year-old male presents emergency Department with chief complaint of generalized weakness, not feeling well. Patient states she has not felt well after his kyphoplasty on Saturday by Dr. Villarreal. He states is a same day procedure. Patient states that he has no appetite he has been taking in fluids regularly but states when he eats he has abdominal discomfort and states that his stomach feels upset. Patient states that he is underlying COPD and usually sats around 91%. He does have slight cough though he states this is chronic in nature no reported fever but states that he's had chills. Patient denies any current chest pain. He does admit that his shortness breath gets worse with movement. Patient denies any diarrhea or significant constipation no new medications upon discharge of this procedure. - Related Data Home Medications Medication Instructions Recorded Confirmed Albuterol Inhaler [Ventolin Hfa 2 puff INHALATION QID 03/02/16 06/29/19 Inhaler] Albuterol Nebulized [Ventolin 2.5 mg INHALATION RT-QID 05/04/18 06/29/19 Nebulized] Atorvastatin [Lipitor] 80 mg PO HS 05/04/18 06/29/19 Metoprolol Succinate (ER) [Toprol 100 mg PO DAILY 05/04/18 06/25/19 XL] Famotidine [Pepcid] 20 mg PO DAILY 03/04/19 06/29/19 Lisinopril [Zestril] 20 mg PO BID 03/04/19 06/25/19 Umeclidinium [place] [Incruse 1 puff INHALATION RT-DAILY 03/04/19 06/29/19 Ellipta] amLODIPine [Norvasc] 5 mg PO QAM 06/25/19 06/25/19 guaiFENesin-DM 600/30MG [Mucinex 1 each PO Q12HR 06/25/19 06/29/19 Dm] traMADol HCL 50 mg PO Q8H 06/25/19 06/29/19 Previous Rx's Medication Instructions Recorded traMADol HCL [Ultram] 50 mg PO Q6HR PRN #24 tab 06/29/19 Famotidine [Pepcid] 20 mg PO BID #28 tablet 07/02/19 Metoclopramide [Reglan] 10 mg PO TID PRN #15 tab 07/02/19 Allergies Allergy/AdvReac Type Severity Reaction Status Date / Time Penicillins Allergy Rash/Hives Verified 07/02/19 09:18 Review of Systems ROS Statement: Those systems with pertinent positive or pertinent negative responses have been documented in the HPI. ROS Other: All systems not noted in ROS Statement are negative. Past Medical History Past Medical History: COPD, GERD/Reflux, Hyperlipidemia, Hypertension, Pneumonia, Vascular Disorder Additional Past Medical History / Comment(s): Severe COPD, history of autoimmune disease had work up by Dr. 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 Facial reconstructive surgery. L ear surgery- myringotomy. Umbilical hernia. Colonoscopy-benign polypectomy. R cataract removed with lens. L eye had glass removed and lens placed. Past Anesthesia/Blood Transfusion Reactions: No Reported Reaction Additional Past Anesthesia/Blood Transfusion Reaction / Comment(s): Pt has never recieved blood. Past Psychological History: No Psychological Hx Reported Smoking Status: Current every day smoker Past Alcohol Use History: Occasional Past Drug Use History: None Reported - Past Family History Brother(s) Family Medical History: Cancer Additional Family Medical History / Comment(s): Brother of lung cancer at the age of 42 yrs. He was a smoker. Sister(s) Family Medical History: Cancer Additional Family Medical History / Comment(s): Sister of lung cancer. She was a smoker. Father Family Medical History: Myocardial Infarction (MO) Additional Family Medical History / Comment(s): Father at age 75 yrs of a [place] Mother Family Medical History: Cancer Additional Family Medical History / Comment(s): Mother of metastatic cancer (unknown primary) at age 42 yrs. General Exam Limitations: no limitations General appearance: alert, in no apparent distress Head exam: Present: atraumatic, normocephalic, normal inspection Eye exam: Present: normal appearance, PERRL, EOMI. Absent: scleral icterus, conjunctival injection, periorbital swelling ENT exam: Present: normal exam, normal oropharynx, mucous membranes moist, TM's normal bilaterally, normal external ear exam Neck exam: Present: normal inspection, full ROM. Absent: tenderness, meningismus, lymphadenopathy Respiratory exam: Present: wheezes. Absent: normal lung sounds bilaterally, respiratory distress, rales, rhonchi, stridor Cardiovascular Exam: Present: regular rate, normal rhythm, normal heart sounds. Absent: systolic murmur, diastolic murmur, rubs, gallop, clicks GI/Abdominal exam: Present: soft, tenderness (Mild to moderate diffuse), normal bowel sounds. Absent: distended, guarding, rebound, rigid Back exam: Present: full ROM, tenderness (Mild thoracic, procedure site was evaluated no erythema no purulent drainage). Absent: CVA tenderness (R), CVA tenderness (L) Neurological exam: Present: alert, oriented X3, CN II-XII intact, reflexes normal. Absent: motor sensory deficit Skin exam: Present: warm, dry, intact, normal color. Absent: rash Course Vital Signs 07/02/19 07/02/19 07/02/19 09:13 09:35 10:30 Temperature 98.1 F 97.9 F Pulse Rate 98 70 Respiratory 18 18 Rate Blood Pressure 154/101 158/94 O2 Sat by Pulse 90 L 94 L Oximetry 07/02/19 07/02/19 07/02/19 10:32 10:42 11:40 Temperature 97.6 F Pulse Rate 61 59 L 69 Respiratory 20 18 18 Rate Blood Pressure 146/95 O2 Sat by Pulse 92 L Oximetry Medical Decision Making - Medical Decision Making Patient had extensive workup including labs, x-rays, urinalysis, EKG, CTs with no acute findings. Patient's laboratory essentially unremarkable. I did CT his chest rule out PE which was negative, CT of the abdomen and pelvis which shows stable stent otherwise no acute process. Patient was hydrated, states he does feel better he we discharged with Reglan, Pepcid. Return parameters were discussed. - Lab Data Result diagrams: 07/02/19 10:20 07/02/19 10:20 Lab Results 07/02/19 07/02/19 07/02/19 Range/Units 10:20 10:20 10:20 WBC 5.7 (3.8-10.6) k/uL RBC 5.29 (4.30-5.90) m/uL Hgb 15.5 (13.0-17.5) gm/dL Hct 46.3 (39.0-53.0) % MCV 87.6 (80.0-100.0) fL MCH 29.3 (25.0-35.0) pg MCHC 33.5 (31.0-37.0) g/dL RDW 13.5 (11.5-15.5) % Plt Count 225 (150-450) k/uL Neutrophils % 66 % Lymphocytes % 17 % Monocytes % 9 % Eosinophils % 4 % Basophils % 2 % Neutrophils # 3.8 (1.3-7.7) k/uL Lymphocytes # 1.0 (1.0-4.8) k/uL Monocytes # 0.5 (0-1.0) k/uL Eosinophils # 0.2 (0-0.7) k/uL Basophils # 0.1 (0-0.2) k/uL PT (9.0-12.0) sec INR (<1.2) APTT (22.0-30.0) sec Sodium 134 L (137-145) mmol/L Potassium 4.0 (3.5-5.1) mmol/L Chloride 98 (98-107) mmol/L Carbon Dioxide 29 (22-30) mmol/L Anion Gap 7 mmol/L BUN 8 L (9-20) mg/dL Creatinine 0.58 L (0.66-1.25) mg/dL Est GFR (CKD-EPI)AfAm >90 (>60 ml/min/1.73 sqM) Est GFR (CKD-EPI)NonAf >90 (>60 ml/min/1.73 sqM) Glucose 99 (74-99) mg/dL Plasma Lactic Acid Ricky 0.6 L (0.7-2.0) mmol/L Calcium 8.7 (8.4-10.2) mg/dL Magnesium 1.7 (1.6-2.3) mg/dL Total Bilirubin 0.7 (0.2-1.3) mg/dL AST 19 (17-59) U/L ALT 10 (4-49) U/L Alkaline Phosphatase 94 (38-126) U/L Troponin I (0.000-0.034) ng/mL Total Protein 6.2 L (6.3-8.2) g/dL Albumin 3.7 (3.5-5.0) g/dL Lipase 60 (23-300) U/L Urine Color Urine Appearance (Clear) Urine pH (5.0-8.0) Ur Specific [place] (1.001-1.035) Urine Protein (Negative) Urine Glucose (UA) (Negative) Urine Ketones (Negative) Urine Blood (Negative) Urine Nitrite (Negative) Urine Bilirubin (Negative) Urine Urobilinogen (<2.0) mg/dL Ur Leukocyte Esterase (Negative) Influenza Type A RNA (Not Detectd) Influenza Type B (PCR) (Not Detectd) 07/02/19 07/02/19 07/02/19 Range/Units 10:20 10:20 10:20 WBC (3.8-10.6) k/uL RBC (4.30-5.90) m/uL Hgb (13.0-17.5) gm/dL Hct (39.0-53.0) % MCV (80.0-100.0) fL MCH (25.0-35.0) pg MCHC (31.0-37.0) g/dL RDW (11.5-15.5) % Plt Count (150-450) k/uL Neutrophils % % Lymphocytes % % Monocytes % % Eosinophils % % Basophils % % Neutrophils # (1.3-7.7) k/uL Lymphocytes # (1.0-4.8) k/uL Monocytes # (0-1.0) k/uL Eosinophils # (0-0.7) k/uL Basophils # (0-0.2) k/uL PT 11.1 (9.0-12.0) sec INR 1.1 (<1.2) APTT 22.0 (22.0-30.0) sec Sodium (137-145) mmol/L Potassium (3.5-5.1) mmol/L Chloride (98-107) mmol/L Carbon Dioxide (22-30) mmol/L Anion Gap mmol/L BUN (9-20) mg/dL Creatinine (0.66-1.25) mg/dL Est GFR (CKD-EPI)AfAm (>60 ml/min/1.73 sqM) Est GFR (CKD-EPI)NonAf (>60 ml/min/1.73 sqM) Glucose (74-99) mg/dL Plasma Lactic Acid Ricky (0.7-2.0) mmol/L Calcium (8.4-10.2) mg/dL Magnesium (1.6-2.3) mg/dL Total Bilirubin (0.2-1.3) mg/dL AST (17-59) U/L ALT (4-49) U/L Alkaline Phosphatase (38-126) U/L Troponin I <0.012 (0.000-0.034) ng/mL Total Protein (6.3-8.2) g/dL Albumin (3.5-5.0) g/dL Lipase (23-300) U/L Urine Color Urine Appearance (Clear) Urine pH (5.0-8.0) Ur Specific [place] (1.001-1.035) Urine Protein (Negative) Urine Glucose (UA) (Negative) Urine Ketones (Negative) Urine Blood (Negative) Urine Nitrite (Negative) Urine Bilirubin (Negative) Urine Urobilinogen (<2.0) mg/dL Ur Leukocyte Esterase (Negative) Influenza Type A RNA Not Detected (Not Detectd) Influenza Type B (PCR) Not Detected (Not Detectd) 07/02/19 Range/Units 11:40 WBC (3.8-10.6) k/uL RBC (4.30-5.90) m/uL Hgb (13.0-17.5) gm/dL Hct (39.0-53.0) % MCV (80.0-100.0) fL MCH (25.0-35.0) pg MCHC (31.0-37.0) g/dL RDW (11.5-15.5) % Plt Count (150-450) k/uL Neutrophils % % Lymphocytes % % Monocytes % % Eosinophils % % Basophils % % Neutrophils # (1.3-7.7) k/uL Lymphocytes # (1.0-4.8) k/uL Monocytes # (0-1.0) k/uL Eosinophils # (0-0.7) k/uL Basophils # (0-0.2) k/uL PT (9.0-12.0) sec INR (<1.2) APTT (22.0-30.0) sec Sodium (137-145) mmol/L Potassium (3.5-5.1) mmol/L Chloride (98-107) mmol/L Carbon Dioxide (22-30) mmol/L Anion Gap mmol/L BUN (9-20) mg/dL Creatinine (0.66-1.25) mg/dL Est GFR (CKD-EPI)AfAm (>60 ml/min/1.73 sqM) Est GFR (CKD-EPI)NonAf (>60 ml/min/1.73 sqM) Glucose (74-99) mg/dL Plasma Lactic Acid Ricky (0.7-2.0) mmol/L Calcium (8.4-10.2) mg/dL Magnesium (1.6-2.3) mg/dL Total Bilirubin (0.2-1.3) mg/dL AST (17-59) U/L ALT (4-49) U/L Alkaline Phosphatase (38-126) U/L Troponin I (0.000-0.034) ng/mL Total Protein (6.3-8.2) g/dL Albumin (3.5-5.0) g/dL Lipase (23-300) U/L Urine Color Light Yellow Urine Appearance Clear (Clear) Urine pH 8.0 (5.0-8.0) Ur Specific [place] 1.007 (1.001-1.035) Urine Protein Negative (Negative) Urine Glucose (UA) Negative (Negative) Urine Ketones Negative (Negative) Urine Blood Negative (Negative) Urine Nitrite Negative (Negative) Urine Bilirubin Negative (Negative) Urine Urobilinogen <2.0 (<2.0) mg/dL Ur Leukocyte Esterase Negative (Negative) Influenza Type A RNA (Not Detectd) Influenza Type B (PCR) (Not Detectd) Disposition Clinical Impression: Viral syndrome, Gastritis, Nausea, Status post kyphoplasty Disposition: HOME SELF-CARE Condition: Stable Instructions (If sedation given, give patient instructions): Viral Syndrome (ED) Additional Instructions: Please return to the Emergency Department if symptoms worsen or any other concerns. Prescriptions: Famotidine [Pepcid] 20 mg PO BID #28 tablet Metoclopramide [Reglan] 10 mg PO TID PRN #15 tab PRN Reason: GERD Is patient prescribed a controlled substance at d/c from ED?: No Referrals: Jamie Balderas DO [Primary Care Provider] - 1-2 days Time of Disposition: 12:47
[2019-07-02 12:07] LABS: Appearance,Urine Clear (Clear); Bilirubin,Urine Negative (Negative); Blood,Urine Negative (Negative); Color,Urine Light Yellow; Glucose,Urine (UA) Negative (Negative); Ketones,Urine Negative (Negative); Leukocyte Esterase,Urine Negative (Negative); Nitrite,Urine Negative (Negative); Protein,Urine Negative (Negative); Specific Gravity,Urine 1.007 (1.001-1.035); Urobilinogen,Urine <2.0 mg/dL (<2.0)
--- NOTE | 2019-07-02 12:28 | CT ---
EXAMINATION TYPE: CT chest angio for PE DATE OF EXAM: 07/02/2019 COMPARISON: CTA chest August 29, 2017 HISTORY: Dyspnea, abd pain CT DLP: 345.1 mGycm. Automated Exposure Control for Dose Reduction was Utilized. CONTRAST: CTA scan of the thorax is performed with IV Contrast, patient injected with 100 mL of Isovue 370, pul monary embolism protocol. MIP Images are created on CT scanner and reviewed. FINDINGS: LUNGS: Some respiratory motion artifact degradation is seen making evaluation suboptimal particularly for subcentimeter nodularity. Mild underlying emphysematous change. Scattered linear fibrosis throughout both lungs with most promi nent finding adjacent to pleural thickening anterior right mid lung near axial image 88 redemonstrate d. No suspicious masses. No pleural effusion or pneumothorax. No suspicious new consolidation. Mild/m oderate biapical pleural/parenchymal scarring is redemonstrated. MEDIASTINUM: There is satisfactory enhancement of the pulmonary artery and its branches, there is no CT evidence for pulmonary embolism. Main pulmonary artery is dilated 3.3 cm image 66, CT findings diaz ggesting underlying pulmonary hypertension. Prominent right and left pulmonary arteries also redemons trated. There are no greater than 1 cm hilar or mediastinal lymph nodes. No cardiomegaly or pericar dial effusion is seen. Moderate to severe three-vessel coronary calcification is present which is not ed marker for underlying coronary artery disease. OTHER: Stable small moderate size hiatal hernia. Partial visualization nodularity to left adrenal gla nd presumed stable. Osseous structures demineralized with exaggerated thoracic kyphosis. Interval charmaine tebroplasty T6 level at mild height loss. Simple appearing thin-walled 1.5 cm cystic splenic dome axi al image 1:30 redemonstrated. IMPRESSION: 1. No CT evidence for acute pulmonary embolism. 2. Mild emphysematous change with [id number] scattered parenchymal fibrosis. No new suspicious acute pulmonary process. Underlying pulmonary hypertension is redemonstrated.
--- NOTE | 2019-07-02 12:35 | CT ---
EXAMINATION TYPE: CT abdomen pelvis w con DATE OF EXAM: 07/02/2019 COMPARISON: CT May 03, 2015 HISTORY: Dyspnea, upper abd pain, recent back surgery [address] DLP: 560.3 mGycm, Automated Exposure Control for Dose Reduction was Utilized. CONTRAST: CT scan of the abdomen and pelvis is performed without oral but with IV Contrast, patient injected wi th 100 mL of Isovue 370. FINDINGS: LUNG BASES: Please refer to same day CTA chest report for complete details and lung bases. LIVER/GB: No significant abnormality is appreciated. PANCREAS: No significant abnormality is seen. SPLEEN: Simple appearing thin-walled 1.5 cm cyst and splenic dome axial image 2 is smaller in size fr om 2015 study. ADRENALS: Stable 1.9 x 1.2 cm left adrenal nodule axial image 13 presumed benign. KIDNEYS: There are suspected 2-3 calculi under 2 mm in size lower pole right kidney for reference axi al image 35. There are some central vascular calcifications within the left kidney but suspected daniel tional left renal calculi with estimated 8-12 calculi. Largest measures 8 mm long axis lower pole lev el coronal image 74. There is symmetric cortical medullary uptake and excretion from both kidneys wit h simple appearing thin-walled cysts and subcentimeter benign lesions bilaterally. No hydronephrosis is evident bilaterally. BOWEL: Evaluation while suboptimal study due to lack of enteric contrast. Small moderate size hiatal hernia redemonstrated. Stomach poorly distended and thus suboptimally evaluated. Slightly low-lying c ecum and right pelvis. No suspicious small or large bowel dilatation. Mild wall thickening in the lef t colon. Prominent diverticulosis in the sigmoid colon. No CT evidence for acute diverticulitis. Prob able subcentimeter lipomas in third portion of duodenum axial image 35 without significant change fro m prior study. PROSTATE/SEMINAL VESICLES: Central calcification normal size prostate gland. LYMPH NODES: No greater than 1cm abdominal or pelvic lymph nodes are appreciated. OSSEOUS STRUCTURES: No significant abnormality is seen. OTHER: There is now aortobiiliac stent graft through AAA. Pala AAA measures up to 4.4 cm transverse ly axial image 38. Stent graft is patent. Stable aneurysm left common iliac artery. IMPRESSION: No significant new or acute finding is seen to account for patient's clinical symptoms. Left greater than right nephrolithiasis more numerous from prior CT without hydronephrosis or obstruc ting ureteral calculi.
[2019-07-02 13:16] VITALS: BP 146/99; PULSE 67; TEMP 97.5
== END 2019-07-02 13:14 | disposition home or self-care (01) ==
LOC: EC 09:12
DX: B34.9 Viral infection, unspecified (principal); K29.70 Gastritis, unspecified, without bleeding; J44.9 Chronic obstructive pulmonary disease, unspecified; K21.9 Gastro-esophageal reflux disease without esophagitis; E78.5 Hyperlipidemia, unspecified; I10 Essential (primary) hypertension; I25.10 Atherosclerotic heart disease of native coronary artery without angina pectoris; F17.200 Nicotine dependence, unspecified, uncomplicated; Z79.899 Other long term (current) drug therapy; Z79.51 Long term (current) use of inhaled steroids; Z88.0 Allergy status to penicillin; Z88.6 Allergy status to analgesic agent; Z95.5 Presence of coronary angioplasty implant and graft; Z98.890 Other specified postprocedural states
CPT/HCPCS: 36415; 94640; 93005; 80053; 83605; 83690; 83735; 84484; 85025; 85610; 85730; 81003; 87040; 87502; 71046; 71275; 74177; 96360; 99285; Q9967

== ENCOUNTER 2019-07-14 07:00 | Inpatient (IN) | payer MEDICARE, OTHER ==
[2019-07-14] MEDS ORDERED: methylPREDNISolone SOD SUCCI 125 MG/2 ML VIAL IV STA (07:11)
[2019-07-14] MEDS ORDERED: SODIUM CHLORIDE 0.9% 1,000 ML IV STA (07:11)
[2019-07-14] MEDS ORDERED: IPRATROPIUM-ALBUTEROL 3 ML NEB INHALATION STA (07:11)
--- NOTE | 2019-07-14 07:14 | ED ---
General Adult HPI - General Chief complaint: Shortness of Breath Stated complaint: BIANCA Time Seen by Provider: 07/14/19 07:01 Source: patient, EMS, RN notes reviewed Mode of arrival: EMS Limitations: no limitations - History of Present Illness Initial comments: Patient is a pleasant 68-year-old male presenting to the emergency Department with complaints of difficulty in breathing. Onset of symptoms was a couple of days ago. Patient does have cough with green sputum. Patient has had driven subjective fevers. No chest pain. No leg pain or leg swelling. Symptoms are similar to previous COPD. Patient had low oxygen in the 70s to nebulizer treatm ent this morning at home. Repeat pulse ox was still in the upper 70s. - Related Data Home Medications Medication Instructions Recorded Confirmed Albuterol Inhaler [Ventolin Hfa 2 puff INHALATION QID 03/02/16 06/29/19 Inhaler] Albuterol Nebulized [Ventolin 2.5 mg INHALATION RT-QID 05/04/18 06/29/19 Nebulized] Atorvastatin [Lipitor] 80 mg PO HS 05/04/18 06/29/19 Metoprolol Succinate (ER) [Toprol 100 mg PO DAILY 05/04/18 06/25/19 XL] Famotidine [Pepcid] 20 mg PO DAILY 03/04/19 06/29/19 Lisinopril [Zestril] 20 mg PO BID 03/04/19 06/25/19 Umeclidinium [place] [Incruse 1 puff INHALATION RT-DAILY 03/04/19 06/29/19 Ellipta] amLODIPine [Norvasc] 5 mg PO QAM 06/25/19 06/25/19 guaiFENesin-DM 600/30MG [Mucinex 1 each PO Q12HR 06/25/19 06/29/19 Dm] traMADol HCL 50 mg PO Q8H 06/25/19 06/29/19 Previous Rx's Medication Instructions Recorded traMADol HCL [Ultram] 50 mg PO Q6HR PRN #24 tab 06/29/19 Famotidine [Pepcid] 20 mg PO BID #28 tablet 07/02/19 Metoclopramide [Reglan] 10 mg PO TID PRN #15 tab 07/02/19 Allergies Allergy/AdvReac Type Severity Reaction Status Date / Time Penicillins Allergy Rash/Hives Verified 07/02/19 09:18 Review of Systems ROS Statement: Those systems with pertinent positive or pertinent negative responses have been documented in the HPI. ROS Other: All systems not noted in ROS Statement are negative. Constitutional: Reports: as per HPI, fever Eyes: Denies: eye pain ENT: Denies: ear pain Respiratory: Reports: cough, dyspnea Cardiovascular: Denies: chest pain Endocrine: Reports: fatigue Gastrointestinal: Denies: abdominal pain Genitourinary: Denies: dysuria Musculoskeletal: Denies: back pain Skin: Denies: rash Neurological: Denies: weakness Past Medical History Past Medical History: COPD, GERD/Reflux, Hyperlipidemia, Hypertension, Pneumonia, Vascular Disorder Additional Past Medical History / Comment(s): Severe COPD, history of autoimmune disease had work up by Dr. Goins and [facility]-never received specifics about the disease type, coronary artery disease with triple-vessel involvement, preserved LV function with an ejection fraction of 50% and moderate LVH, nephrolithiasis, bilateral leg cramps, left eardrum perforation/[place] History of Any Multi-Drug Resistant Organisms: None Reported Past Surgical History: Appendectomy, Back Surgery, Ear Surgery, Heart Catheterization, Hernia Repair Additional Past Surgical History / Comment(s): Endovascular stent grafting of a abdominal aortic aneurysm. Facial reconstructive surgery. L ear surgery- myringotomy. Umbilical hernia. Colonoscopy-benign polypectomy. R cataract removed with lens. L eye had glass removed and lens placed. Past Anesthesia/Blood Transfusion Reactions: No Reported Reaction Additional Past Anesthesia/Blood Transfusion Reaction / Comment(s): Pt has never recieved blood. Past Psychological History: No Psychological Hx Reported Smoking Status: Current every day smoker Past Alcohol Use History: Occasional Past Drug Use History: None Reported - Past Family History Brother(s) Family Medical History: Cancer Additional Family Medical History / Comment(s): Brother of lung cancer at the age of 42 yrs. He was a smoker. Sister(s) Family Medical History: Cancer Additional Family Medical History / Comment(s): Sister of lung cancer. She was a smoker. Father Family Medical History: Myocardial Infarction (MD) Additional Family Medical History / Comment(s): Father at age 75 yrs of a MD Mother Family Medical History: Cancer Additional Family Medical History / Comment(s): Mother of metastatic cancer (unknown primary) at age 42 yrs. General Exam Limitations: no limitations General appearance: alert Head exam: Present: normocephalic Eye exam: Present: normal appearance Neck exam: Present: normal inspection Respiratory exam: Present: wheezes, decreased breath sounds Cardiovascular Exam: Present: tachycardia GI/Abdominal exam: Present: soft. Absent: tenderness Extremities exam: Present: normal inspection. Absent: pedal edema, calf tenderness Neurological exam: Present: alert Psychiatric exam: Present: normal affect, normal mood Skin exam: Present: normal color Course Vital Signs 07/14/19 07/14/19 07/14/19 07:01 07:33 07:38 Temperature 99 F Pulse Rate 109 H 112 H 110 H Respiratory 26 H 16 Rate Blood Pressure 133/92 118/76 O2 Sat by Pulse 89 L 98 Oximetry 07/14/19 07:42 Temperature Pulse Rate 112 H Respiratory Rate Blood Pressure O2 Sat by Pulse Oximetry - Reevaluation(s) Reevaluation #1: 07/14/19 08:47 Patient has COPD however there is concern for possible underlying sepsis diagnosed at 8:45 AM. Blood culture and lactic acid ordered. IV antibiotics will be ordered. EKG Findings - EKG Comments: EKG Findings:: Sinus tachycardia 103. PVCs are frequent. ME 1:30. QRS 90. QT 348. QTC 45. Normal axis. Normal QRS. No acute ST change Medical Decision Making - Medical Decision Making Patient reevaluated and is somewhat improved however still appears somewhat short of breath. Lung sounds without much change. Pulse ox is 92% on nasal cannula. Patient updated on results and plan. Dr. Balderas has been paged for admission of this patient. - Lab Data Result diagrams: 07/14/19 07:26 07/14/19 07:26 Lab Results 07/14/19 07/14/19 07/14/19 Range/Units 07:26 07:26 07:26 WBC 15.5 H (3.8-10.6) k/uL RBC 5.28 (4.30-5.90) m/uL Hgb 15.7 (13.0-17.5) gm/dL Hct 47.4 (39.0-53.0) % MCV 89.7 (80.0-100.0) fL MCH 29.8 (25.0-35.0) pg MCHC 33.2 (31.0-37.0) g/dL RDW 13.2 (11.5-15.5) % Plt Count 208 (150-450) k/uL Neutrophils % 87 % Lymphocytes % 2 % Monocytes % 6 % Eosinophils % 1 % Basophils % 3 % Neutrophils # 13.5 H (1.3-7.7) k/uL Lymphocytes # 0.4 L (1.0-4.8) k/uL Monocytes # 0.9 (0-1.0) k/uL Eosinophils # 0.1 (0-0.7) k/uL Basophils # 0.4 H (0-0.2) k/uL PT (9.0-12.0) sec INR (<1.2) APTT (22.0-30.0) sec Sodium 130 L (137-145) mmol/L Potassium 4.5 (3.5-5.1) mmol/L Chloride 94 L (98-107) mmol/L Carbon Dioxide 24 (22-30) mmol/L Anion Gap 12 mmol/L BUN 15 (9-20) mg/dL Creatinine 0.62 L (0.66-1.25) mg/dL Est GFR (CKD-EPI)AfAm >90 (>60 ml/min/1.73 sqM) Est GFR (CKD-EPI)NonAf >90 (>60 ml/min/1.73 sqM) Glucose 123 H (74-99) mg/dL Plasma Lactic Acid Ricky 0.9 (0.7-2.0) mmol/L Calcium 8.6 (8.4-10.2) mg/dL Total Bilirubin 1.2 (0.2-1.3) mg/dL AST 30 (17-59) U/L ALT 14 (4-49) U/L Alkaline Phosphatase 88 (38-126) U/L Total Protein 7.3 (6.3-8.2) g/dL Albumin 4.1 (3.5-5.0) g/dL Influenza Type A RNA (Not Detectd) Influenza Type B (PCR) (Not Detectd) 07/14/19 07/14/19 Range/Units 07:26 07:35 WBC (3.8-10.6) k/uL RBC (4.30-5.90) m/uL Hgb (13.0-17.5) gm/dL Hct (39.0-53.0) % MCV (80.0-100.0) fL MCH (25.0-35.0) pg MCHC (31.0-37.0) g/dL RDW (11.5-15.5) % Plt Count (150-450) k/uL Neutrophils % % Lymphocytes % % Monocytes % % Eosinophils % % Basophils % % Neutrophils # (1.3-7.7) k/uL Lymphocytes # (1.0-4.8) k/uL Monocytes # (0-1.0) k/uL Eosinophils # (0-0.7) k/uL Basophils # (0-0.2) k/uL PT 12.7 H (9.0-12.0) sec INR 1.3 H (<1.2) APTT 27.4 (22.0-30.0) sec Sodium (137-145) mmol/L Potassium (3.5-5.1) mmol/L Chloride (98-107) mmol/L Carbon Dioxide (22-30) mmol/L Anion Gap mmol/L BUN (9-20) mg/dL Creatinine (0.66-1.25) mg/dL Est GFR (CKD-EPI)AfAm (>60 ml/min/1.73 sqM) Est GFR (CKD-EPI)NonAf (>60 ml/min/1.73 sqM) Glucose (74-99) mg/dL Plasma Lactic Acid Ricky (0.7-2.0) mmol/L Calcium (8.4-10.2) mg/dL Total Bilirubin (0.2-1.3) mg/dL AST (17-59) U/L ALT (4-49) U/L Alkaline Phosphatase (38-126) U/L Total Protein (6.3-8.2) g/dL Albumin (3.5-5.0) g/dL Influenza Type A RNA Not Detected (Not Detectd) Influenza Type B (PCR) Not Detected (Not Detectd) - Radiology Data Radiology results: image reviewed (This x-ray suspicious for atelectasis right upper lobe) Critical Care Time Critical Care Time: Yes Total Critical Care Time: 33 Disposition Clinical Impression: Acute exacerbation of chronic obstructive airways disease, Sepsis Disposition: ADMITTED IP TO THIS HOSP Is patient prescribed a controlled substance at d/c from ED?: No Referrals: Jamie Balderas DO [Primary Care Provider] - 1-2 days Decision Time: 08:47
[2019-07-14 07:45] LABS: Basophils # (A) 0.4 k/uL (0-0.2); Basophils % (A) 3 %; Eosinophils # (A) 0.1 k/uL (0-0.7); Eosinophils % (A) 1 %; HCT 47.4 % (39.0-53.0); HGB 15.7 gm/dL (13.0-17.5); Lymphocytes # (A) 0.4 k/uL (1.0-4.8); Lymphocytes % (A) 2 %; MCH 29.8 pg (25.0-35.0); MCHC 33.2 g/dL (31.0-37.0); MCV 89.7 fL (80.0-100.0); Monocytes # (A) 0.9 k/uL (0-1.0); Monocytes % (A) 6 %; Neutrophils # (A) 13.5 k/uL (1.3-7.7); Neutrophils % (A) 87 %; Platelet Count 208 k/uL (150-450); RBC 5.28 m/uL (4.30-5.90); RDW 13.2 % (11.5-15.5); WBC 15.5 k/uL (3.8-10.6)
[2019-07-14 08:06] LABS: ALT 14 U/L (4-49); African American GFR (CKD) >90 (>60 ml/min/1.73 sqM); Albumin 4.1 g/dL (3.5-5.0); Anion Gap 12 mmol/L; Blood Urea Nitrogen 15 mg/dL (9-20); Calcium 8.6 mg/dL (8.4-10.2); Carbon Dioxide 24 mmol/L (22-30); Chloride 94 mmol/L (98-107); Glucose 123 mg/dL (74-99); Non-African American GFR(CKD) >90 (>60 ml/min/1.73 sqM); Potassium 4.5 mmol/L (3.5-5.1); Sodium 130 mmol/L (137-145); Total Bilirubin 1.2 mg/dL (0.2-1.3); Total Protein 7.3 g/dL (6.3-8.2)
[2019-07-14 08:07] LABS: AST 30 U/L (17-59); Alkaline Phosphatase 88 U/L (38-126)
--- NOTE | 2019-07-14 08:13 | XR ---
EXAMINATION TYPE: XR chest 2V DATE OF EXAM: 07/14/2019 COMPARISON: 07/02/2019 HISTORY: Difficulty breathing TECHNIQUE: Frontal and lateral views of the chest are obtained. FINDINGS: Pulmonary hyperinflation with underlying emphysematous change. New right lateral upper laure ng opacity. Chronic interstitial prominence. Diffuse osseous demineralization and upper thoracic kyph oplasty. IMPRESSION: Right upper lung patchy opacity likely represents atelectasis given its short-term inter mike development. Extensive COPD.
[2019-07-14 08:23] LABS: INR 1.3 (<1.2); Partial Thromboplastin Time 27.4 sec (22.0-30.0); Prothrombin Time 12.7 sec (9.0-12.0)
[2019-07-14] MEDS ORDERED: LEVOFLOXACIN 750MG-D5W PMX 750 MG in DEXTROSE/WATER 1 150ML.BAG IVPB STA (08:48)
[2019-07-14] MEDS ORDERED: IPRATROPIUM-ALBUTEROL 3 ML NEB INHALATION PRN (08:48)
[2019-07-14] MEDS: IPRATROPIUM-ALBUTEROL 3 ML NEB INHALATION SCH ×3 (11:04→19:40)
--- NOTE | 2019-07-14 14:10 | P.CNPUL ---
History of Present Illness Consult date: 07/14/19 Reason for consult: dyspnea, hypoxemia Chief complaint: Shortness of breath, hypoxemia History of present illness: 68-year-old white male patient of Dr. Balderas, follows with Dr. Gonzalez in the pulmonary clinic for history of advanced COPD with baseline FEV1 of 34% of predicted, does not wear any oxygen at baseline. Patient is a long-time smoker and has been cutting back on smoking, he states his last cigarette was 2 days ago. Other medical history includes history of abdominal aortic aneurysm being monitored by Dr. Rivera, status post endovascular stent grafting. Hypertension, coronary arterial sclerosis, and autoimmune disorder under investigation by Dr. Goins. Patient presented to the hospital today on 0 07/14/2019 with complaints of shortness of breath, cough, green sputum production, no objective fevers, and O2 sat in the 70s. Denied any chest pain, denied any hemoptysis, no leg pain or leg swelling. Chest x-ray showed right upper lobe patchy opacity that could represent atelectasis in the background of extensive COPD. Patient was placed on supplemental oxygen. Lab work showed white blood cell count of 15.5, hemoglobin of 15.7, INR 1.3, sodium is 1:30, potassium is 4.5, chloride is 94, dressed much lites were within normal limits, BUN is 15 creatinine 0.62, LFTs were within normal limits, influenza screen was negative. Low-grade fevers with a temp of 99F oral. Patient is very broncho spastic and congested and physical exam, but in no acute distress, was started on IV steroids, Levaquin, and breathing treatments, he is awaiting a bed for general medical floor. Review of Systems All systems: negative Constitutional: Denies chills, Denies fever Eyes: denies blurred vision, denies pain Ears, nose, mouth and throat: Denies headache, Denies sore throat Cardiovascular: Denies chest pain, Denies shortness of breath Respiratory: Reports cough with sputum, Reports dyspnea, Reports respiratory infections, Denies cough Gastrointestinal: Denies abdominal pain, Denies diarrhea, Denies nausea, Denies vomiting Musculoskeletal: Denies myalgias Integumentary: Denies pruritus, Denies rash Neurological: Denies numbness, Denies weakness Psychiatric: Denies anxiety, Denies depression Endocrine: Denies fatigue, Denies weight change Past Medical History Past Medical History: Coronary Artery Disease (CAD), COPD, GERD/Reflux, Hearing Disorder / Deafness, Hyperlipidemia, Hypertension, Pneumonia, Vascular Disorder Additional Past Medical History / Comment(s): Severe COPD, history of autoimmune disease had work up by Dr. Goins and [facility]-never received specifics about the disease type, aortic aneurysm with repair, thoracolumbar pain/T4 fracture with recent surgery, current nephrolithiasis-has passed stones on his own in the past, bilateral leg cramps, left eardrum perforation/[place] History of Any Multi-Drug Resistant Organisms: None Reported Past Surgical History: Appendectomy, Back Surgery, Ear Surgery, Heart Catheterization, Hernia Repair Additional Past Surgical History / Comment(s): 06/29/19 T4 kyphoplasty, Endovascular stent grafting of a abdominal aortic aneurysm. Facial reconstructive surgery. L ear surgery-myringotomy. Umbilical hernia. Colonoscopy-benign polypectomy. R cataract removed with lens. L eye had glass re moved and lens placed. Past Anesthesia/Blood Transfusion Reactions: No Reported Reaction Additional Past Anesthesia/Blood Transfusion Reaction / Comment(s): Pt has never recieved blood. Smoking Status: Former smoker - Past Family History Brother(s) Family Medical History: Cancer Additional Family Medical History / Comment(s): Brother of lung cancer at the age of 42 yrs. He was a smoker. Sister(s) Family Medical History: Cancer Additional Family Medical History / Comment(s): Sister of lung cancer. She was a smoker. Father Family Medical History: Myocardial Infarction (MD) Additional Family Medical History / Comment(s): Father at age 75 yrs of a MD Mother Family Medical History: Cancer Additional Family Medical History / Comment(s): Mother of metastatic cancer (unknown primary) at age 42 yrs. Medications and Allergies Home Medications Medication Instructions Recorded Confirmed Type Albuterol Inhaler [Ventolin Hfa 2 puff INHALATION RT-QID PRN 03/02/16 07/14/19 History Inhaler] Albuterol Nebulized [Ventolin 2.5 mg INHALATION RT-QID 05/04/18 07/14/19 History Nebulized] Atorvastatin [Lipitor] 80 mg PO HS 05/04/18 07/14/19 History Metoprolol Succinate (ER) [Toprol 100 mg PO DAILY 05/04/18 07/14/19 History XL] Lisinopril [Zestril] 20 mg PO BID 03/04/19 07/14/19 History Umeclidinium [place] [Incruse 1 puff INHALATION RT-DAILY 03/04/19 07/14/19 History Ellipta] amLODIPine [Norvasc] 5 mg PO QAM 06/25/19 07/14/19 History guaiFENesin-DM 600/30MG [Mucinex 1 tab PO Q12HR 06/25/19 07/14/19 History Dm] traMADol HCL [Ultram] 50 mg PO Q6HR PRN #24 tab MDD 8 06/29/19 07/14/19 Rx TABS Famotidine [Pepcid] 20 mg PO BID #28 tablet 07/02/19 07/14/19 Rx Allergies Allergy/AdvReac Type Severity Reaction Status Date / Time Penicillins Allergy Rash/Hives Verified 07/14/19 09:08 Physical Exam Vitals: Vital Signs Temp Pulse Pulse Resp BP BP Pulse Ox 07/14/19 12:51 99.0 F 101 H 20 98/58 92 L 07/14/19 11:16 104 H 07/14/19 11:04 100 07/14/19 07:42 112 H 07/14/19 07:38 110 H 16 118/76 98 07/14/19 07:33 112 H 07/14/19 07:01 99 F 109 H 26 H 133/92 89 L Intake and Output 07/13/19 07/14/19 07/14/19 22:59 06:59 14:59 Other: Weight 79.379 kg GENERAL EXAM: Alert, pleasant, 68-year-old white male on 2 L of oxygen with a pulse ox of 92% comfortable in no apparent distress. HEAD: Normocephalic/atraumatic. EYES: Normal reaction of pupils, equal size. Conjunctiva pink, sclera white. NOSE: Clear with pink turbinates. THROAT: No erythema or exudates. NECK: No masses, no JVD, no thyroid enlargement, no adenopathy. CHEST: No chest wall deformity. Symmetrical expansion. LUNGS: Equal air entry with frequent coughing spells, wheezing, rhonchi CVS: Regular rate and rhythm, normal S1 and S2, no gallops, no murmurs, no rubs ABDOMEN: Soft, nontender. No hepatosplenomegaly, normal bowel sounds, no guarding or rigidity. EXTREMITIES: No clubbing, no edema, no cyanosis, 2+ pulses and upper and lower extremities. MUSCULOSKELETAL: Muscle strength and tone normal. SPINE: No scoliosis or deformity SKIN: No rashes CENTRAL NERVOUS SYSTEM: Alert and oriented -3. No focal deficits, tone is normal in all 4 extremities. PSYCHIATRIC: Alert and oriented -3. Appropriate affect. Intact judgment and insight. Results - Laboratory Findings CBC and BMP: 07/14/19 07:26 07/14/19 07:26 PT/INR, D-dimer PT 12.7 sec (9.0-12.0) H 07/14/19 07:26 INR 1.3 (<1.2) H 07/14/19 07:26 Abnormal lab findings: Abnormal Labs 07/14/19 07/14/19 07/14/19 07:26 07:26 07:26 WBC 15.5 H Neutrophils # 13.5 H Lymphocytes # 0.4 L Basophils # 0.4 H PT 12.7 H INR 1.3 H Sodium 130 L Chloride 94 L Creatinine 0.62 L Glucose 123 H - Diagnostic Findings Chest x-ray: report reviewed, image reviewed Assessment and Plan Plan: Assessment: #1. Acute exacerbation of chronic obstructive pulmonary disease, chest x-ray showed right upper lobe patchy opacity, early pneumonic infiltrate is difficult to exclude, influenza screen negative #2. Acute hypoxemic failure related to the above #3. Advanced COPD, stage III, with baseline FEV1 of 34% of predicted, not oxygen dependent at baseline #4. Hypertension #5. History of abdominal aortic aneurysm status post endovascular stent grafting #6. Coronary artery disease #7. Autoimmune disorder under investigation by Dr. Goins #8. Preserved LV function with an ejection fraction of 50% and moderate LVH #9. Current every day smoker, down to 5 cigarettes currently has been cutting back #10. Leukocytosis, rule out infectious process #11. Mild hyponatremia on admission, possibly hypovolemic, serum sodium is 130 Plan: Continue breathing treatments, we'll add Pulmicort and Perforomist, continue Levaquin, send sputum culture, chest x-ray showed possibility of right upper lobe early infiltrate, we'll send procalcitonin level, will continue with IV steroids, we'll continue to follow I performed a history & physical examination of the patient and discussed their management with my nurse practitioner, Mary Stewart. I reviewed the nurse practitioner's note and agree with the documented findings and plan of care. Lung sounds are positive for diffuse rhonchi and wheezes. The findings and the impression was discussed with the patient. I attest to the documentation by the nurse practitioner. Time with Patient: Greater than 30
[2019-07-14] MEDS: methylPREDNISolone SOD SUCCI 125 MG/2 ML VIAL IV SCH ×2 (14:12→17:50)
[2019-07-14] MEDS: NICOTINE 14MG/24HR PATCH TRANSDERM SCH (17:50)
[2019-07-14] MEDS: HEPARIN SODIUM,PORCINE 5,000 UNIT/ML 1 ML VIAL SQ SCH (17:50)
[2019-07-14] MEDS: BUDESONIDE 1 MG/2 ML NEBU INHALATION SCH (19:40)
[2019-07-14] MEDS: FORMOTEROL FUMARATE 20 MCG/2 ML NEBU INHALATION SCH (19:40)
[2019-07-14] MEDS: ATORVASTATIN 80 MG TAB PO SCH (22:43)
[2019-07-14] MEDS: guaiFENesin-DM 600/30MG 1 EACH TAB.ER.12H PO SCH (22:43)
[2019-07-15] MEDS: methylPREDNISolone SOD SUCCI 125 MG/2 ML VIAL IV SCH ×5 (00:47→23:15)
[2019-07-15] MEDS: HEPARIN SODIUM,PORCINE 5,000 UNIT/ML 1 ML VIAL SQ SCH ×4 (00:47→23:18)
[2019-07-15] MEDS: BUDESONIDE 1 MG/2 ML NEBU INHALATION SCH ×2 (07:00→20:03)
[2019-07-15] MEDS: IPRATROPIUM-ALBUTEROL 3 ML NEB INHALATION SCH ×4 (07:00→20:03)
[2019-07-15] MEDS: FORMOTEROL FUMARATE 20 MCG/2 ML NEBU INHALATION SCH ×2 (07:00→20:15)
[2019-07-15] MEDS ORDERED: traMADol 50 MG TAB PO PRN (07:20)
[2019-07-15 08:00] LABS: HCT 42.5 % (39.0-53.0); HGB 13.6 gm/dL (13.0-17.5); MCH 28.7 pg (25.0-35.0); MCV 89.8 fL (80.0-100.0); Mean Platelet Volume 8.2; Platelet Count 199 k/uL (150-450); RBC 4.73 m/uL (4.30-5.90); RDW 13.1 % (11.5-15.5); WBC 14.1 k/uL (3.8-10.6)
[2019-07-15 08:16] LABS: African American GFR (CKD) >90 (>60 ml/min/1.73 sqM); Anion Gap 7 mmol/L; Blood Urea Nitrogen 22 mg/dL (9-20); Calcium 8.7 mg/dL (8.4-10.2); Carbon Dioxide 28 mmol/L (22-30); Chloride 95 mmol/L (98-107); Glucose 135 mg/dL (74-99); Non-African American GFR(CKD) >90 (>60 ml/min/1.73 sqM); Potassium 4.2 mmol/L (3.5-5.1); Sodium 130 mmol/L (137-145)
[2019-07-15] MEDS: NICOTINE 14MG/24HR PATCH TRANSDERM SCH (08:51)
[2019-07-15] MEDS: guaiFENesin-DM 600/30MG 1 EACH TAB.ER.12H PO SCH ×2 (08:52→21:43)
[2019-07-15] MEDS: PANTOPRAZOLE 40 MG TABLET PO SCH (08:52)
[2019-07-15] MEDS: LISINOPRIL 20 MG TAB PO SCH ×3 (08:52→21:55)
[2019-07-15] MEDS: amLODIPine 5 MG TAB PO SCH (08:52)
[2019-07-15] MEDS: METOPROLOL SUCCINATE (ER) 100 MG TAB.ER.24H PO SCH (08:52)
--- NOTE | 2019-07-15 08:57 | P.HPIM ---
History of Present Illness H&P Date: 07/15/19 Chief Complaint: worsening shortness of breath This is 68-year-old gentleman with history of advanced COPD, ongoing nicotine dependence, COPD, hypertension, gastroesophageal reflux disease autoimmune disorder, abdominal aortic aneurysm with repair, vascular disorder, recent T4 fracture repair, hard of hearing, admitted to the hospital with worsening shortness of breath, increased green sputum production 2 days. Denies fevers/chills. Denies chest pain, palpitations. Follows with Dr. Gonzalez outpatient. Reports his last cigarette was 2 days ago. Chest x-ray reporting right upper lung patchy opacity likely atelectasis, extensive COPD. influenza A and B screen negative. Pro-calcitonin elevated at 0.26. Afebrile, T-max 99.On admission 89% on 2 L nasal cannula, tachypneic with respiratory rates in the 20s with mild tachycardia. WBC 15.2, BUN 15, creatinine 0.62 Placed on supplemental oxygen with IV steroids, nebulized bronchodilators and IV Levaquin initiated. Vital signs stable. Currently maintaining O2 sats in the 90s on 2 L nasal cannula, tachycardia resolved. Respiratory rate 18. Review of Systems ROS Statement: Those systems with pertinent positive or pertinent negative responses have been documented in the HPI. ROS Other: All systems not noted in ROS Statement are negative. Review of Systems GENERAL: Patient denies fever. Denies chills. EYES: Denies blurred vision. Denies vision changes. Denies eye pain. EARS, NOSE, MOUTH, & THROAT: Denies headache. Denies sore throat. Denies ear pain. RESPIRATORY: cough and shortness of breath. admits to sputum production. Denies hemoptysis. CARDIOVASCULAR: Denies chest pain or pressure. Denies palpitations. Denies arrhythmias. GASTROINTESTINAL: Denies abdominal pain. Denies diarrhea. Denies constipation. Denies nausea. Denies vomiting. Denies heartburn. Denies blood in the stool. GENITOURINARY: Denies urinary frequency. Denies burning. Denies dysuria. Denies cloudy urine. Denies blood in the urine. MUSCULOSKELETAL: Denies myalgias. Denies joint swelling. Denies decreased range of motion beyond patients baseline. INTEGUMENTARY: Denies pruitis. Denies rash. PSYCHIATRIC: Denies suicidal or homicial ideations. ENDOCRINE: Denies weight change. Denies polydipsia. Denies polyuria. HEMATOLOGIC: Denies bleeding disorders. Past Medical History Past Medical History: Coronary Artery Disease (CAD), COPD, GERD/Reflux, Hearing Disorder / Deafness, Hyperlipidemia, Hypertension, Pneumonia, Vascular Disorder Additional Past Medical History / Comment(s): Severe COPD, history of autoimmune disease had work up by Dr. Gonis and [facility]-never received specifics about the disease type, aortic aneurysm with repair, thoracolumbar pain/T4 fracture with recent surgery, current nephrolithiasis-has passed stones on his own in the past, bilateral leg cramps, left eardrum perforation/CHALKYITSIK History of Any Multi-Drug Resistant Organisms: None Reported Past Surgical History: Appendectomy, Back Surgery, Ear Surgery, Heart Catheterization, Hernia Repair Additional Past Surgical History / Comment(s): 06/29/19 T4 kyphoplasty, Endovascular stent grafting of a abdominal aortic aneurysm. Facial reconstructive surgery. L ear surgery-myringotomy. Umbilical hernia. Colonoscopy-benign polypectomy. R cataract removed with lens. L eye had glass removed and lens placed. Past Anesthesia/Blood Transfusion Reactions: No Reported Reaction Additional Past Anesthesia/Blood Transfusion Reaction / Comment(s): Pt has never recieved blood. Smoking Status: Former smoker - Past Family History Brother(s) Family Medical History: Cancer Additional Family Medical History / Comment(s): Brother of lung cancer at the age of 42 yrs. He was a smoker. Sister(s) Family Medical History: Cancer Additional Family Medical History / Comment(s): Sister of lung cancer. She was a smoker. Father Family Medical History: Myocardial Infarction (OR) Additional Family Medical History / Comment(s): Father at age 75 yrs of a OR Mother Family Medical History: Cancer Additional Family Medical History / Comment(s): Mother of metastatic cancer (unknown primary) at age 42 yrs. Medications and Allergies Home Medications Medication Instructions Recorded Confirmed Type Albuterol Inhaler [Ventolin Hfa 2 puff INHALATION RT-QID PRN 03/02/07/14/19 History Inhaler] Albuterol Nebulized [Ventolin 2.5 mg INHALATION RT-QID 05/04/18 07/14/19 History Nebulized] Atorvastatin [Lipitor] 80 mg PO HS 05/04/18 07/14/19 History Metoprolol Succinate (ER) [Toprol 100 mg PO DAILY 05/04/18 07/14/19 History XL] Lisinopril [Zestril] 20 mg PO BID 03/04/19 07/14/19 History Umeclidinium Tofte [Incruse 1 puff INHALATION RT-DAILY 03/04/19 07/14/19 History Ellipta] amLODIPine [Norvasc] 5 mg PO QAM 06/25/19 07/14/19 History guaiFENesin-DM 600/30MG [Mucinex 1 tab PO Q12HR 06/25/19 07/14/19 History Dm] traMADol HCL [Ultram] 50 mg PO Q6HR PRN #24 tab MDD 8 06/29/19 07/14/19 Rx TABS Famotidine [Pepcid] 20 mg PO BID #28 tablet 07/02/19 07/14/19 Rx Allergies Allergy/AdvReac Type Severity Reaction Status Date / Time Penicillins Allergy Rash/Hives Verified 07/14/19 09:08 Physical Exam Vitals: Vital Signs Temp Pulse Pulse Resp BP BP Pulse Ox 07/15/19 01:55 97.7 F 82 116/66 93 L 07/14/19 23:00 97.9 F 80 20 122/69 93 L 07/14/19 20:08 88 07/14/19 19:55 92 07/14/19 19:41 92 07/14/19 18:57 98 100/53 07/14/19 18:05 97.7 F 07/14/19 15:50 80 07/14/19 15:40 84 07/14/19 12:51 99.0 F 101 H 20 98/58 92 L 07/14/19 11:16 104 H 07/14/19 11:04 100 07/14/19 07:42 112 H 07/14/19 07:38 110 H 16 118/76 98 07/14/19 07:33 112 H 07/14/19 07:01 99 F 109 H 26 H 133/92 89 L Intake and Output 07/14/19 07/14/19 07/15/19 14:59 22:59 06:59 Intake Total 400 Balance 400 Intake: Oral 400 Other: Voiding Method Toilet Toilet # Voids 1 1 1 Weight 79.379 kg PHYSICAL EXAM: GENERAL: This is a 68-year-old in mild distress at the time of examination. Pleasant and cooperative. HEENT: Head is atraumatic, normocephalic. Pupils are equal, round, and reactive to light. Sclerae anicteric. Conjunctivae are clear. Mucus membranes of the mouth are moist. Neck is supple. Hard of hearing. RESPIRATORY: Bilateral bases diminished with inspiratory and expiratory wheezing. CARDIOVASCULAR: Regular rate and rhythm. S1 and S2 noted. No systolic or diastolic murmur auscultated. No JVD noted. No S3 or S4 noted. GASTROINTESTINAL: No distention noted. Abdomen soft and round. Normal active bowel sounds auscultated x 4 quadrants. No pain or tenderness noted upon palpation. INTEGUMENTARY: No cyanosis. No jaundice. No rashes noted. No cellulitis noted. EXTREMITIES: 2+ peripheral pulses. No evidence of peripheral edema. No calf tenderness noted. NEUROLOGIC: Cranial nerves II-XII intact. PSYCHIATRIC: Awake, alert, and oriented X 3. Appropriate affect. Intact judgement and insight. Results CBC & Chem 7: 07/15/19 07:04 07/15/19 07:04 Labs: Abnormal Lab Results - Last 24 Hours (Table) 07/14/19 07/14/19 07/14/19 Range/Units 07:26 07:26 07:26 WBC 15.5 H (3.8-10.6) k/uL Neutrophils # 13.5 H (1.3-7.7) k/uL Lymphocytes # 0.4 L (1.0-4.8) k/uL Basophils # 0.4 H (0-0.2) k/uL PT 12.7 H (9.0-12.0) sec INR 1.3 H (<1.2) Sodium 130 L (137-145) mmol/L Chloride 94 L (98-107) mmol/L Creatinine 0.62 L (0.66-1.25) mg/dL Glucose 123 H (74-99) mg/dL Procalcitonin (0.02-0.09) ng/mL 07/14/19 Range/Units 07:26 WBC (3.8-10.6) k/uL Neutrophils # (1.3-7.7) k/uL Lymphocytes # (1.0-4.8) k/uL Basophils # (0-0.2) k/uL PT (9.0-12.0) sec INR (<1.2) Sodium (137-145) mmol/L Chloride (98-107) mmol/L Creatinine (0.66-1.25) mg/dL Glucose (74-99) mg/dL Procalcitonin 0.26 H (0.02-0.09) ng/mL Microbiology - Last 24 Hours (Table) 07/15/19 03:14 Sputum Culture - Preliminary Sputum Thrombosis Risk Factor Assmnt - Choose All That Apply Any of the Below Risk Factors Present?: Yes Each Factor Represents 1 point: Abnormal pulmonary function (COPD), Sepsis (< 1month) Other Risk Factors: Yes Each Risk Factor Represents 2 Points: Age 61-74 years Other congenital or acquired thrombophilia - If yes, enter type in comment: No Thrombosis Risk Factor Assessment Total Risk Factor Score: 4 Thrombosis Risk Factor Assessment Level: Moderate Risk Assessment and Plan Assessment: -Acute COPD exacerbation in a patient with advanced COPD, possibly early right upper lobe pneumonia with elevated pro calcitonin level -Acute hypoxic, hypercapnic respiratory failure, secondary to the above -Leukocytosis secondary to the above -Ongoing nicotine dependence -Hyponatremia, possibly hypovolemic, mild -Hypertension -CAD, moderate left ventricular hypertrophy, EF 50% -Recent kyphoplasty of T4, vertebral body biopsy, secondary to acute traumatic T4 vertebral compression fracture, 06/2719 -History of abdominal aortic aneurysm status post repair -Autoimmune disease, under investigation with - Plan: Continue on current medication regime, monitoring and symptomatic treatment. Evaluated by pulmonary, recommendations noted and appreciated. Maintained on nebulized bronchodilators, IV steroids, Levaquin. GI and DVT prophylaxis in place with heparin subcu and Protonix. Sputum culture pending. The impression and plan of care has been dictated as directed. : I performed a history and examination of this patient, discussed the same with the dictator. I agree with the dictator's note ,documented as a scribe. Any additional findings or plans will be noted.
[2019-07-15] MEDS ORDERED: FAMOTIDINE 20 MG TAB PO SCH (09:00)
[2019-07-15] MEDS: LEVOFLOXACIN 750MG-D5W PMX 750 MG in DEXTROSE/WATER 1 150ML.BAG IVPB SCH (09:50)
--- NOTE | 2019-07-15 11:04 | XR ---
EXAMINATION TYPE: XR chest 2V DATE OF EXAM: 07/15/2019 COMPARISON: Prior chest x-ray 07/14/2019 HISTORY: Shortness of breath TECHNIQUE: Frontal and lateral views of the chest are obtained. FINDINGS: Ill-defined area of increased attenuation in the right upper lobe is again noted and likel y corresponds to posterior right sixth rib fracture with pseudoarthrosis, no corresponding lung mass on patient's chest CT. Aorta is dense and aneurysmal. Prominent lung volumes suggest underlying COPD. No evident pneumothorax or pleural effusion. Heart size is stable. Interstitium is increased. Promin ence of pulmonary artery consistent with pulmonary artery hypertension. Thoracic vertebral body shows vertebral plasty change. Some underlying scar changes are present in the right middle lobe. Prominen t lung lines again noted. IMPRESSION: COPD, thoracic aortic aneurysm. Additional findings above.
--- NOTE | 2019-07-15 14:51 | P.PN ---
Subjective Progress Note Date: 07/15/19 Principal diagnosis: Acute exacerbation of COPD, possible right upper lobe pneumonia 68-year-old white male patient of Dr. Balderas, follows with Dr. Gonzalez in the pulmonary clinic for history of advanced COPD with baseline FEV1 of 34% of predicted, does not wear any oxygen at baseline. Patient is a long-time smoker and has been cutting back on smoking, he states his last cigarette was 2 days ago. Other medical history includes history of abdominal aortic aneurysm being monitored by Dr. Rivera, status post endovascular stent grafting. Hypertension, coronary arterial sclerosis, and autoimmune disorder under investigation by Dr. Goins. Patient presented to the hospital today on 07/14/2019 with complaints of shortness of breath, cough, green sputum production, no objective fevers, and O2 sat in the 70s. Denied any chest pain, denied any hemoptysis, no leg pain or leg swelling. Chest x-ray showed right upper lobe patchy opacity that could represent atelectasis in the background of extensive COPD. Patient was placed on supplemental oxygen. Lab work showed white blood cell count of 15.5, hemoglobin of 15.7, INR 1.3, sodium is 1:30, potassium is 4.5, chloride is 94, dressed much lites were within normal limits, BUN is 15 creatinine 0.62, LFTs were within normal limits, influenza screen was negative. Low-grade fevers with a temp of 99F oral. Patient is very bronchospastic and congested and physical exam, but in no acute distress, was started on IV steroids, Levaquin, and breathing treatments, he is awaiting a bed for general medical floor. On 07/15/2019 patient seen in follow-up on the medical floor. He states he is feeling easier today, he is less bronchospastic and dyspneic on today's exam. Maintain saturations of oxygen with pulse ox of 90%, afebrile, still slightly tachycardic, hemodynamically stable, lung sounds reveal some scattered exp iratory wheezes, less congested on today's exam. Blood and sputum cultures have been sent negative thus far, final cultures pending. Remains on empiric antibiotics in the form of Levaquin, IV steroids, nebulized bronchodilators. Objective - Vital Signs Vital signs: Vital Signs Temp 96.5 F L 07/15/19 08:30 Pulse 84 07/15/19 11:01 Resp 18 07/15/19 11:01 BP 105/61 07/15/19 08:30 Pulse Ox 90 L 07/15/19 08:30 Intake & Output 07/14/19 07/15/19 07/15/19 18:59 06:59 18:59 Intake Total 400 Balance 400 Weight 79.379 kg Intake: Oral 400 Other: Voiding Method Toilet Toilet Toilet Urinal # Voids 1 1 - Exam GENERAL EXAM: Alert, pleasant, 68-year-old white male on 2 L of oxygen with a pulse ox of 92% comfortable in no apparent distress. HEAD: Normocephalic/atraumatic. EYES: Normal reaction of pupils, equal size. Conjunctiva pink, sclera white. NOSE: Clear with pink turbinates. THROAT: No erythema or exudates. NECK: No masses, no JVD, no thyroid enlargement, no adenopathy. CHEST: No chest wall deformity. Symmetrical expansion. LUNGS: Equal air entry with frequent coughing spells, wheezing, rhonchi CVS: Regular rate and rhythm, normal S1 and S2, no gallops, no murmurs, no rubs ABDOMEN: Soft, nontender. No hepatosplenomegaly, normal bowel sounds, no guarding or rigidity. EXTREMITIES: No clubbing, no edema, no cyanosis, 2+ pulses and upper and lower extremities. MUSCULOSKELETAL: Muscle strength and tone normal. SPINE: No scoliosis or deformity SKIN: No rashes CENTRAL NERVOUS SYSTEM: Alert and oriented -3. No focal deficits, tone is normal in all 4 extremities. PSYCHIATRIC: Alert and oriented -3. Appropriate affect. Intact judgment and insight. - Labs CBC & Chem 7: 07/15/19 07:04 07/15/19 07:04 Labs: Abnormal Lab Results - Last 24 Hours (Table) 07/14/19 07/15/19 07/15/19 Range/Units 07:26 07:04 07:04 WBC 14.1 H (3.8-10.6) k/uL Sodium 130 L (137-145) mmol/L Chloride 95 L (98-107) mmol/L BUN 22 H (9-20) mg/dL Glucose 135 H (74-99) mg/dL Procalcitonin 0.26 H (0.02-0.09) ng/mL Microbiology - Last 24 Hours (Table) 07/14/19 07:26 Blood Culture - Preliminary Blood No Growth after 24 hours 07/15/19 03:14 Sputum Culture - Preliminary Sputum Assessment and Plan Plan: Assessment: #1. Acute exacerbation of chronic obstructive pulmonary disease, chest x-ray showed right upper lobe patchy opacity, early pneumonic infiltrate is difficult to exclude, influenza screen negative #2. Acute hypoxemic failure related to the above #3. Advanced COPD, stage III, with baseline FEV1 of 34% of predicted, not oxygen dependent at baseline #4. Hypertension #5. History of abdominal aortic aneurysm status post endovascular stent grafting #6. Coronary artery disease #7. Autoimmune disorder under investigation by Dr. Goins #8. Preserved LV function with an ejection fraction of 50% and moderate LVH #9. Current every day smoker, down to 5 cigarettes currently has been cutting back #10. Leukocytosis, rule out infectious process #11. Mild hyponatremia on admission, possibly hypovolemic, serum sodium is 130 Plan: Follow-up chest x-ray was reviewed showing stable findings, clinical patient is improving, breathing easier, continue same antibiotics, will await final results of the sputum culture. Continie breathing treatments and IV steroids, anticipate further improvement, we'll continue to follow I performed a history & physical examination of the patient and discussed their management with my nurse practitioner, Mary Stewart. I reviewed the nurse practitioner's note and agree with the documented findings and plan of care. Lung sounds are positive for diffuse rhonchi and wheezes. The findings and the impression was discussed with the patient. I attest to the documentation by the nurse practitioner. Time with Patient: Less than 30
[2019-07-15] MEDS: ATORVASTATIN 80 MG TAB PO SCH (21:43)
[2019-07-16] MEDS: methylPREDNISolone SOD SUCCI 125 MG/2 ML VIAL IV SCH ×3 (05:29→17:34)
[2019-07-16] MEDS: IPRATROPIUM-ALBUTEROL 3 ML NEB INHALATION SCH ×4 (07:31→19:46)
[2019-07-16] MEDS: FORMOTEROL FUMARATE 20 MCG/2 ML NEBU INHALATION SCH ×2 (07:31→19:46)
[2019-07-16] MEDS: BUDESONIDE 1 MG/2 ML NEBU INHALATION SCH ×2 (07:31→19:46)
[2019-07-16] MEDS: PANTOPRAZOLE 40 MG TABLET PO SCH (08:33)
[2019-07-16] MEDS: METOPROLOL SUCCINATE (ER) 100 MG TAB.ER.24H PO SCH (08:33)
[2019-07-16] MEDS: HEPARIN SODIUM,PORCINE 5,000 UNIT/ML 1 ML VIAL SQ SCH ×2 (08:33→16:38)
[2019-07-16] MEDS: amLODIPine 5 MG TAB PO SCH (08:33)
[2019-07-16] MEDS: LISINOPRIL 20 MG TAB PO SCH ×2 (08:33→22:03)
[2019-07-16] MEDS: NICOTINE 14MG/24HR PATCH TRANSDERM SCH (08:33)
[2019-07-16] MEDS: guaiFENesin-DM 600/30MG 1 EACH TAB.ER.12H PO SCH ×2 (08:34→22:03)
[2019-07-16] MEDS: LEVOFLOXACIN 750MG-D5W PMX 750 MG in DEXTROSE/WATER 1 150ML.BAG IVPB SCH (09:31)
[2019-07-16 09:45] LABS: Basophils % (A) 0 %; Eosinophils % (A) 0 %; HCT 45.9 % (39.0-53.0); HGB 14.8 gm/dL (13.0-17.5); Lymphocytes # (A) 0.3 k/uL (1.0-4.8); Lymphocytes % (A) 3 %; MCH 29.4 pg (25.0-35.0); MCHC 32.2 g/dL (31.0-37.0); MCV 91.5 fL (80.0-100.0); Mean Platelet Volume 8.7; Monocytes # (A) 0.4 k/uL (0-1.0); Monocytes % (A) 4 %; Neutrophils # (A) 10.9 k/uL (1.3-7.7); Neutrophils % (A) 93 %; Platelet Count 247 k/uL (150-450); RBC 5.01 m/uL (4.30-5.90); RDW 13.2 % (11.5-15.5); WBC 11.7 k/uL (3.8-10.6)
[2019-07-16 09:47] LABS: African American GFR (CKD) >90 (>60 ml/min/1.73 sqM); Anion Gap 8 mmol/L; Blood Urea Nitrogen 26 mg/dL (9-20); Calcium 8.8 mg/dL (8.4-10.2); Carbon Dioxide 31 mmol/L (22-30); Chloride 95 mmol/L (98-107); Glucose 146 mg/dL (74-99); Non-African American GFR(CKD) >90 (>60 ml/min/1.73 sqM); Potassium 4.7 mmol/L (3.5-5.1); Sodium 134 mmol/L (137-145)
--- NOTE | 2019-07-16 14:50 | P.PN ---
Subjective Progress Note Date: 07/16/19 Principal diagnosis: Acute exacerbation of COPD, possible right upper lobe pneumonia 68-year-old white male patient of Dr. Balderas, follows with Dr. Gonzalez in the pulmonary clinic for history of advanced COPD with baseline FEV1 of 34% of predicted, does not wear any oxygen at baseline. Patient is a long-time smoker and has been cutting back on smoking, he states his last cigarette was 2 days ago. Other medical history includes history of abdominal aortic aneurysm being monitored by Dr. Rivera, status post endovascular stent grafting. Hypertension, coronary arterial sclerosis, and autoimmune disorder under investigation by Dr. Goins. Patient presented to the hospital today on 07/14/2019 with complaints of shortness of breath, cough, green sputum production, no objective fevers, and O2 sat in the 70s. Denied any chest pain, denied any hemoptysis, no leg pain or leg swelling. Chest x-ray showed right upper lobe patchy opacity that could represent atelectasis in the background of extensive COPD. Patient was placed on supplemental oxygen. Lab work showed white blood cell count of 15.5, hemoglobin of 15.7, INR 1.3, sodium is 1:30, potassium is 4.5, chloride is 94, dressed much lites were within normal limits, BUN is 15 creatinine 0.62, LFTs were within normal limits, influenza screen was negative. Low-grade fevers with a temp of 99F oral. Patient is very bronchospastic and congested and physical exam, but in no acute distress, was started on IV steroids, Levaquin, and breathing treatments, he is awaiting a bed for general medical floor. On 07/15/2019 patient seen in follow-up on the medical floor. He states he is feeling easier today, he is less bronchospastic and dyspneic on today's exam. Maintain saturations of oxygen with pulse ox of 90%, afebrile, still slightly tachycardic, hemodynamically stable, lung sounds reveal some scattered exp iratory wheezes, less congested on today's exam. Blood and sputum cultures have been sent negative thus far, final cultures pending. Remains on empiric antibiotics in the form of Levaquin, IV steroids, nebulized bronchodilators. On 07/16/2019 patient seen in follow-up on medical floor. Awake and alert, in no acute distress, he states his breathing is improving, lung sounds have improved, diminished breath sounds no wheezing no rhonchi. Is on 2 L of oxygen with a pulse ox 94-95%, afebrile, hemodynamically stable. Today's labs are reviewed, showing downtrending white blood cell count down to 11.7, hemoglobin of 14.8, sodium is 134, potassium is 4.7, chloride is 95, CO2 is 31, BUN is 26, creatinine is 0.73. Blood and sputum cultures are still pending, may negative thus far. Patient is on Levaquin, IV steroids and nebulized bronchodilators. Objective - Vital Signs Vital signs: Vital Signs Temp 97.5 F L 07/16/19 07:35 Pulse 68 07/16/19 11:03 Resp 15 07/16/19 10:07 BP 111/68 07/16/19 07:35 Pulse Ox 94 L 07/16/19 07:37 Intake & Output 07/15/19 07/16/19 07/16/19 18:59 06:59 18:59 Intake Total 390 Balance 390 Intake: Intake, IV Titration 150 Amount Levofloxacin 750Mg-D5w 150 Pmx 750 mg In Dextrose/ Water 1 150ml.bag @ 100 mls/hr IVPB Q24H [facility] Rx#: [id number] Oral 240 Other: Voiding Method Toilet Toilet Toilet Urinal Urinal # Voids 1 1 2 - Exam GENERAL EXAM: Alert, pleasant, 68-year-old white male on 2 L of oxygen with a pulse ox of 92% comfortable in no apparent distress. HEAD: Normocephalic/atraumatic. EYES: Normal reaction of pupils, equal size. Conjunctiva pink, sclera white. NOSE: Clear with pink turbinates. THROAT: No erythema or exudates. NECK: No masses, no JVD, no thyroid enlargement, no adenopathy. CHEST: No chest wall deformity. Symmetrical expansion. LUNGS: Equal air entry with frequent coughing spells, wheezing, rhonchi CVS: Regular rate and rhythm, normal S1 and S2, no gallops, no murmurs, no rubs ABDOMEN: Soft, nontender. No hepatosplenomegaly, normal bowel sounds, no guarding or rigidity. EXTREMITIES: No clubbing, no edema, no cyanosis, 2+ pulses and upper and lower extremities. MUSCULOSKELETAL: Muscle strength and tone normal. SPINE: No scoliosis or deformity SKIN: No rashes CENTRAL NERVOUS SYSTEM: Alert and oriented -3. No focal deficits, tone is normal in all 4 extremities. PSYCHIATRIC: Alert and oriented -3. Appropriate affect. Intact judgment and insight. - Labs CBC & Chem 7: 07/16/19 08:22 07/16/19 08:22 Labs: Abnormal Lab Results - Last 24 Hours (Table) 07/16/19 07/16/19 Range/Units 08:22 08:22 WBC 11.7 H (3.8-10.6) k/uL Neutrophils # 10.9 H (1.3-7.7) k/uL Lymphocytes # 0.3 L (1.0-4.8) k/uL Sodium 134 L (137-145) mmol/L Chloride 95 L (98-107) mmol/L Carbon Dioxide 31 H (22-30) mmol/L BUN 26 H (9-20) mg/dL Glucose 146 H (74-99) mg/dL Microbiology - Last 24 Hours (Table) 07/14/19 07:26 Blood Culture - Preliminary Blood No Growth after 48 hours 07/15/19 03:14 Gram Stain - Preliminary Sputum Sputum Culture - Preliminary Assessment and Plan Plan: Assessment: #1. Acute exacerbation of chronic obstructive pulmonary disease, chest x-ray showed right upper lobe patchy opacity, early pneumonic infiltrate is difficult to exclude, influenza screen negative #2. Acute hypoxemic failure related to the above #3. Advanced COPD, stage III, with baseline FEV1 of 34% of predicted, not oxygen dependent at baseline #4. Hypertension #5. History of abdominal aortic aneurysm status post endovascular stent grafting #6. Coronary artery disease #7. Autoimmune disorder under investigation by Dr. Goins #8. Preserved LV function with an ejection fraction of 50% and moderate LVH #9. Current every day smoker, down to 5 cigarettes currently has been cutting back #10. Leukocytosis, rule out infectious process #11. Mild hyponatremia on admission, possibly hypovolemic, serum sodium is 130 Plan: Patient continues to improve, vital signs are stable, no fever or chills. His been treated with a combination of empiric antibiotics, bronchodilators, and IV steroids, no fever or chills, so far cultures are negative. From pulmonary perspective patient is stable for discharge home today or tomorrow. Outpatient follow-up with Dr. Price in the office in 7-10 days. I performed a history & physical examination of the patient and discussed their management with my nurse practitioner, Mary Stewart. I reviewed the nurse practitioner's note and agree with the documented findings and plan of care. Lung sounds are positive for diffuse rhonchi and wheezes. The findings and the impression was discussed with the patient. I attest to the documentation by the nurse practitioner. Time with Patient: Less than 30
--- NOTE | 2019-07-16 15:18 | PN ---
PROGRESS NOTE DATE OF SERVICE: 07/16/2019 I am covering for Dr. Balderas. This is a 68-year-old gentleman who was admitted with COPD acute exacerbation as well as right upper lobe pneumonia, is also complaining of some chest discomfort. Patient also had acute hypoxic respiratory failure, also patient is being closely monitored at this time. Dr. Price is following the patient closely. The most recent chest x-ray which was personally reviewed by me, showed evidence of pneumonic process in the upper lobe and increased bronchovascular markings also. PAST MEDICAL HISTORY: Reviewed. REVIEW OF SYSTEMS: CARDIOVASCULAR SYSTEM: No angina. RESPIRATORY: As mentioned earlier. GI: As mentioned earlier. : No dysuria. NERVOUS SYSTEMS: As mentioned earlier. MEDICATIONS: Reviewed. 1. DuoNeb q.i.d. and p.r.n. 2. Norvasc 5 mg q.h.s. 3. Lipitor 80 mg q.h.s. 4. Pulmicort 1 mg b.i.d. 5. Perforomist 20 mcg b.i.d. 6. Heparin 5 subcu q.h.s. 7. Levaquin 750 daily. 8. Zestril 20 mg p.o. b.i.d. 9. Solu-Medrol 60 IV q.6. 10.Toprol-XL 100 mg p.o. daily. 11.Habitrol 14 days. 12.Protonix 40 mg. 13.Ultram 50 mg q.6 p.r.n. PHYSICAL EXAMINATION: Alert and oriented x3. Pulse is 68, blood pressure is 111/60, respirations 16, temperature 97.5, pulse ox 94% on 2 L. HEENT: Conjunctivae normal. NECK: No jugular venous distension. CARDIOVASCULAR SYSTEM: S1, S2, muffled. RESPIRATION: Breath sounds diminished at the bases, bilateral scattered rhonchi and no crackles. ABDOMEN: Soft, nontender. LEGS: No edema. No swelling. NERVOUS SYSTEM: No focal deficits. LABS: WBC is 11.2, hemoglobin is 14.8, sodium 134. Influenza negative. ASSESSMENT: 1. Chronic obstructive pulmonary disease acute exacerbation with possible right upper lobe pneumonia, possibly gram-negative. 2. Acute hypoxic hypercarbic respiratory failure. 3. Right-sided chest pain. 4. Increased WBC. 5. Elevated procalcitonin. 6. History of carotid artery disease. 7. Gastroesophageal reflux disease. 8. Hypertension. 9. Hyperlipidemia. 10.History of pneumonia. 11.History of autoimmune disease. 12.History of aortic aneurysm with repair. 13.History of T4 fracture with surgery. 14.History of nephrolithiasis. 15.Appendectomy. 16.History of degenerative joint disease. 17.History of endovascular stent grafting with abdominal aortic aneurysm. 18.Remote history of nicotine dependence. 19.FULL CODE. RECOMMENDATION: In this 68-year-old gentleman who presented with multiple complex medical issues, will monitor the patient closely. Continue with the current management. Continue with IV steroids, continue with the bronchodilators, continue with empiric antibiotics. Guarded prognosis, because of multiple complex medical issues. Further recommendations to follow. See orders for details. Will monitor the blood sugars closely. DVT prophylaxis. Proton pump inhibitors. Resume the home medications. Will recommend close followup with Dr. Balderas after discharge. MMODL / IJN: [id number] /
[2019-07-16 16:50] LABS: Glucose,Whole Blood 167 mg/dL (75-99)
[2019-07-16] MEDS: INSULIN ASPART (NovoLOG) 100 UNIT/ML VIAL SQ SCH ×2 (17:34→22:03)
[2019-07-16 20:42] LABS: Glucose,Whole Blood 131 mg/dL (75-99)
[2019-07-16] MEDS: ATORVASTATIN 80 MG TAB PO SCH (22:03)
[2019-07-17] MEDS: methylPREDNISolone SOD SUCCI 125 MG/2 ML VIAL IV SCH ×3 (01:30→12:15)
[2019-07-17] MEDS: HEPARIN SODIUM,PORCINE 5,000 UNIT/ML 1 ML VIAL SQ SCH ×2 (01:30→08:31)
[2019-07-17 01:37] VITALS: TEMP 97.7
[2019-07-17 07:14] VITALS: BP 135/77; RESP 17
[2019-07-17 08:00] LABS: Basophils % (A) 0 %; Eosinophils # (A) 0.1 k/uL (0-0.7); Eosinophils % (A) 1 %; HCT 43.6 % (39.0-53.0); HGB 14.2 gm/dL (13.0-17.5); Lymphocytes # (A) 0.3 k/uL (1.0-4.8); Lymphocytes % (A) 3 %; MCH 29.8 pg (25.0-35.0); MCHC 32.6 g/dL (31.0-37.0); MCV 91.5 fL (80.0-100.0); Mean Platelet Volume 8.5; Monocytes # (A) 0.4 k/uL (0-1.0); Monocytes % (A) 4 %; Neutrophils # (A) 8.5 k/uL (1.3-7.7); Neutrophils % (A) 91 %; Platelet Count 222 k/uL (150-450); RBC 4.76 m/uL (4.30-5.90); RDW 13.1 % (11.5-15.5); WBC 9.3 k/uL (3.8-10.6)
[2019-07-17 08:05] LABS: Glucose,Whole Blood 145 mg/dL (75-99)
[2019-07-17 08:15] LABS: African American GFR (CKD) >90 (>60 ml/min/1.73 sqM); Anion Gap 3 mmol/L; Blood Urea Nitrogen 28 mg/dL (9-20); Calcium 8.6 mg/dL (8.4-10.2); Carbon Dioxide 30 mmol/L (22-30); Chloride 100 mmol/L (98-107); Glucose 116 mg/dL (74-99); Non-African American GFR(CKD) >90 (>60 ml/min/1.73 sqM); Potassium 4.9 mmol/L (3.5-5.1); Sodium 133 mmol/L (137-145)
[2019-07-17] MEDS: LISINOPRIL 20 MG TAB PO SCH (08:31)
[2019-07-17] MEDS: METOPROLOL SUCCINATE (ER) 100 MG TAB.ER.24H PO SCH (08:31)
[2019-07-17] MEDS: amLODIPine 5 MG TAB PO SCH (08:31)
[2019-07-17] MEDS: PANTOPRAZOLE 40 MG TABLET PO SCH (08:32)
[2019-07-17] MEDS: guaiFENesin-DM 600/30MG 1 EACH TAB.ER.12H PO SCH (08:32)
[2019-07-17] MEDS: INSULIN ASPART (NovoLOG) 100 UNIT/ML VIAL SQ SCH ×2 (08:32→12:18)
[2019-07-17] MEDS: NICOTINE 14MG/24HR PATCH TRANSDERM SCH (08:32)
[2019-07-17] MEDS: IPRATROPIUM-ALBUTEROL 3 ML NEB INHALATION SCH ×2 (08:45→11:45)
[2019-07-17] MEDS: FORMOTEROL FUMARATE 20 MCG/2 ML NEBU INHALATION SCH (08:45)
[2019-07-17] MEDS: BUDESONIDE 1 MG/2 ML NEBU INHALATION SCH (08:45)
[2019-07-17] MEDS: LEVOFLOXACIN 750MG-D5W PMX 750 MG in DEXTROSE/WATER 1 150ML.BAG IVPB SCH (09:01)
[2019-07-17 11:50] LABS: Glucose,Whole Blood 91 mg/dL (75-99)
[2019-07-17 11:55] VITALS: PULSE 66
--- NOTE | 2019-07-17 12:50 | P.PN ---
Subjective Progress Note Date: 07/17/19 Principal diagnosis: Acute exacerbation of COPD, possible right upper lobe pneumonia 68-year-old white male patient of Dr. Balderas, follows with Dr. Gonzalez in the pulmonary clinic for history of advanced COPD with baseline FEV1 of 34% of predicted, does not wear any oxygen at baseline. Patient is a long-time smoker and has been cutting back on smoking, he states his last cigarette was 2 days ago. Other medical history includes history of abdominal aortic aneurysm being monitored by Dr. Rivera, status post endovascular stent grafting. Hypertension, coronary arterial sclerosis, and autoimmune disorder under investigation by Dr. Goins. Patient presented to the hospital today on 07/14/2019 with complaints of shortness of breath, cough, green sputum production, no objective fevers, and O2 sat in the 70s. Denied any chest pain, denied any hemoptysis, no leg pain or leg swelling. Chest x-ray showed right upper lobe patchy opacity that could represent atelectasis in the background of extensive COPD. Patient was placed on supplemental oxygen. Lab work showed white blood cell count of 15.5, hemoglobin of 15.7, INR 1.3, sodium is 1:30, potassium is 4.5, chloride is 94, dressed much lites were within normal limits, BUN is 15 creatinine 0.62, LFTs were within normal limits, influenza screen was negative. Low-grade fevers with a temp of 99F oral. Patient is very bronchospastic and congested and physical exam, but in no acute distress, was started on IV steroids, Levaquin, and breathing treatments, he is awaiting a bed for general medical floor. On 07/15/2019 patient seen in follow-up on the medical floor. He states he is feeling easier today, he is less bronchospastic and dyspneic on today's exam. Maintain saturations of oxygen with pulse ox of 90%, afebrile, still slightly tachycardic, hemodynamically stable, lung sounds reveal some scattered exp iratory wheezes, less congested on today's exam. Blood and sputum cultures have been sent negative thus far, final cultures pending. Remains on empiric antibiotics in the form of Levaquin, IV steroids, nebulized bronchodilators. On 07/16/2019 patient seen in follow-up on medical floor. Awake and alert, in no acute distress, he states his breathing is improving, lung sounds have improved, diminished breath sounds no wheezing no rhonchi. Is on 2 L of oxygen with a pulse ox 94-95%, afebrile, hemodynamically stable. Today's labs are reviewed, showing downtrending white blood cell count down to 11.7, hemoglobin of 14.8, sodium is 134, potassium is 4.7, chloride is 95, CO2 is 31, BUN is 26, creatinine is 0.73. Blood and sputum cultures are still pending, may negative thus far. Patient is on Levaquin, IV steroids and nebulized bronchodilators. On 07/17/2019 patient seen in follow-up on general medical floor, doing well, continues to improve, he had 2 L of oxygen the pulse ox 94%, afebrile, less dyspneic, last bronchospastic. Has been treated with IV steroids, antibiotics and breathing treatments, anticipate discharge home today. Objective - Vital Signs Vital signs: Vital Signs Temp 97.7 F 07/17/19 07:12 Pulse 66 07/17/19 11:54 Resp 17 07/17/19 11:07 BP 135/77 07/17/19 07:12 Pulse Ox 94 L 07/17/19 08:54 Intake & Output 07/16/19 07/17/19 07/17/19 18:59 06:59 18:59 Other: Voiding Method Toilet Toilet # Voids 2 - Exam GENERAL EXAM: Alert, pleasant, 68-year-old white male on 2 L of oxygen with a pulse ox of 92% comfortable in no apparent distress. HEAD: Normocephalic/atraumatic. EYES: Normal reaction of pupils, equal size. Conjunctiva pink, sclera white. NOSE: Clear with pink turbinates. THROAT: No erythema or exudates. NECK: No masses, no JVD, no thyroid enlargement, no adenopathy. CHEST: No chest wall deformity. Symmetrical expansion. LUNGS: Equal air entry with frequent coughing spells, wheezing, rhonchi CVS: Regular rate and rhythm, normal S1 and S2, no gallops, no murmurs, no rubs ABDOMEN: Soft, nontender. No hepatosplenomegaly, normal bowel sounds, no guarding or rigidity. EXTREMITIES: No clubbing, no edema, no cyanosis, 2+ pulses and upper and lower extremities. MUSCULOSKELETAL: Muscle strength and tone normal. SPINE: No scoliosis or deformity SKIN: No rashes CENTRAL NERVOUS SYSTEM: Alert and oriented -3. No focal deficits, tone is normal in all 4 extremities. PSYCHIATRIC: Alert and oriented -3. Appropriate affect. Intact judgment and insight. - Labs CBC & Chem 7: 07/17/19 07:12 07/17/19 07:12 Labs: Abnormal Lab Results - Last 24 Hours (Table) 07/16/19 07/16/19 07/17/19 Range/Units 16:46 20:41 07:12 Neutrophils # 8.5 H (1.3-7.7) k/uL Lymphocytes # 0.3 L (1.0-4.8) k/uL Sodium (137-145) mmol/L BUN (9-20) mg/dL Creatinine (0.66-1.25) mg/dL Glucose (74-99) mg/dL POC Glucose (mg/dL) 167 H 131 H (75-99) mg/dL 07/17/19 07/17/19 Range/Units 07:12 08:03 Neutrophils # (1.3-7.7) k/uL Lymphocytes # (1.0-4.8) k/uL Sodium 133 L (137-145) mmol/L BUN 28 H (9-20) mg/dL Creatinine 0.65 L (0.66-1.25) mg/dL Glucose 116 H (74-99) mg/dL POC Glucose (mg/dL) 145 H (75-99) mg/dL Microbiology - Last 24 Hours (Table) 07/14/19 07:26 Blood Culture - Preliminary Blood No Growth after 72 hours 07/15/19 03:14 Gram Stain - Final Sputum Sputum Culture - Final Assessment and Plan Plan: Assessment: #1. Acute exacerbation of chronic obstructive pulmonary disease, chest x-ray showed right upper lobe patchy opacity, early pneumonic infiltrate is difficult to exclude, influenza screen negative #2. Acute hypoxemic failure related to the above #3. Advanced COPD, stage III, with baseline FEV1 of 34% of predicted, not oxygen dependent at baseline #4. Hypertension #5. History of abdominal aortic aneurysm status post endovascular stent g rafting #6. Coronary artery disease #7. Autoimmune disorder under investigation by Dr. Goins #8. Preserved LV function with an ejection fraction of 50% and moderate LVH #9. Current every day smoker, down to 5 cigarettes currently has been cutting back #10. Leukocytosis, rule out infectious process #11. Mild hyponatremia on admission, possibly hypovolemic, serum sodium is 130 Plan: Patient is doing, vital signs are stable, no acute issues overnight, he is been treated with IV steroids, antibiotics and nebulized bronchodilators, responded well to inpatient. Anticipate discharge home today, follow up with Dr. Dr. Price in the office in 7-10 days. I performed a history & physical examination of the patient and discussed their management with my nurse practitioner, Mary Stewart. I reviewed the nurse practitioner's note and agree with the documented findings and plan of care. Lung sounds are positive for diffuse rhonchi and wheezes. The findings and the impression was discussed with the patient. I attest to the documentation by the nurse practitioner. Time with Patient: Less than 30
--- NOTE | 2019-07-18 07:18 | DS ---
DISCHARGE SUMMARY DATE OF SERVICE: 07/16/2019 FINAL DIAGNOSES: 1. Chronic obstructive pulmonary disease exacerbation with possible right upper lobe pneumonia, possibly gram-negative. 2. Acute hypoxic hypercarbic respiratory failure. 3. Right-sided chest pain, improved. 4. Increased WBC. 5. Elevated procalcitonin. 6. History of coronary artery disease. 7. History of gastroesophageal reflux disease. 8. Hypertension. 9. Hyperlipidemia. 10.History of pneumonia. 11.History of autoimmune disease. 12.History of aortic aneurysm repair. 13.History of T4 fracture surgery. 14.History of nephrolithiasis. 15.Appendectomy. 16.History of degenerative joint disease. 17.History of endovascular stent grafting with abdominal aortic aneurysm. 18.Remote history of nicotine dependence. 19.FULL CODE. DISCHARGE DISPOSITION: The patient will be discharged in a stable condition with guarded prognosis. HISTORY OF PRESENT ILLNESS: This is a 68-year-old gentleman with a past medical history of multiple medical problems being followed by Dr. Balderas, admitted with COPD acute exacerbation with pneumonia. Patient was treated with antibiotics. Patient improved significantly. Dr. Price saw the patient and recommended the patient be discharged and follow up with outpatient setting. On exam, vitals are stable. CARDIOVASCULAR SYSTEM: S1, S2. ABDOMEN: Soft. NERVOUS SYSTEM: No focal deficit. DISCHARGE ADVICE: The diet is cardiac diet. Activity limited until followup. Follow up with Dr. Balderas to 2 - 3 days. Follow up with Pulmonary as recommended. MEDICATIONS ARE FOLLOWS: 1. Increase Ellipta 1 daily. 2. Lipitor 80 mg q.h.s. 3. Guaifenesin 600 mg b.i.d. 4. Norvasc 5 mg q.a.m. 5. Toprol-XL 100 mg p.o. daily. 6. Ventolin 2 puffs daily. 7. Zestril 20 mg p.o. b.i.d. 8. DuoNeb q.i.d. and p.r.n. 9. Habitrol 14 daily, no smoking. 10.Levaquin 750 p.o. daily for 5 days. 11.Pepcid 20 mg p.o. b.i.d. 12.Prednisone taper 40 mg daily for 3 days, 30 for 3 days, 20 for 3 days 10 for 3 days, then Pulmicort 1 mg b.i.d. 13.Ultram 50 mg q.6 p.r.n. Once again, the patient will be discharged in a stable condition with guarded prognosis. MMNAHOMIL / IJN: [id number] /
[2019-07-18] MEDS ORDERED: LEVOFLOXACIN 750 MG TAB PO SCH (09:00)
== END 2019-07-17 15:58 | disposition home or self-care (01) | DRG 177 ==
LOC: EC 07:00 → 6NMEDSUR 08:48 → 4SSUR 19:49
PROVIDERS: ADMIT Family Medicine; ATTEND Family Medicine
DX: J15.6 Pneumonia due to other Gram-negative bacteria (principal); J96.01 Acute respiratory failure with hypoxia; J96.02 Acute respiratory failure with hypercapnia; J44.0 Chronic obstructive pulmonary disease with (acute) lower respiratory infection; J44.1 Chronic obstructive pulmonary disease with (acute) exacerbation; E87.1 Hypo-osmolality and hyponatremia; I11.9 Hypertensive heart disease without heart failure; K21.9 Gastro-esophageal reflux disease without esophagitis; E78.5 Hyperlipidemia, unspecified; I25.10 Atherosclerotic heart disease of native coronary artery without angina pectoris; H91.90 Unspecified hearing loss, unspecified ear; Z79.51 Long term (current) use of inhaled steroids; Z79.899 Other long term (current) drug therapy; Z87.891 Personal history of nicotine dependence; Z87.01 Personal history of pneumonia (recurrent); Z86.2 Personal history of diseases of the blood and blood-forming organs and certain disorders involving the immune mechanism; Z87.442 Personal history of urinary calculi; Z95.828 Presence of other vascular implants and grafts; Z90.49 Acquired absence of other specified parts of digestive tract; Z98.890 Other specified postprocedural states; Z98.41 Cataract extraction status, right eye; Z98.42 Cataract extraction status, left eye; Z96.1 Presence of intraocular lens; Z86.79 Personal history of other diseases of the circulatory system; Z87.81 Personal history of (healed) traumatic fracture; Z88.0 Allergy status to penicillin; Z80.1 Family history of malignant neoplasm of trachea, bronchus and lung; Z81.2 Family history of tobacco abuse and dependence; Z82.49 Family history of ischemic heart disease and other diseases of the circulatory system; Z80.9 Family history of malignant neoplasm, unspecified; M19.90 Unspecified osteoarthritis, unspecified site
CPT/HCPCS: 36415; 71046; 80048; 80053; 83605; 84145; 85025; 85027; 85610; 85730; 87040; 87070; 87205; 87502; 93005; 94640; 94760; 96365; 96372; 96374; 96376; 99291

== ENCOUNTER → 2019-08-13 | Outpatient (CLI) | payer MEDICARE, OTHER ==
--- NOTE | 2019-08-13 12:26 | XR ---
EXAMINATION TYPE: XR KUB DATE OF EXAM: 08/13/2019 12:17 PM CLINICAL HISTORY: Right-sided nephrolithiasis TECHNIQUE: Single supine KUB image of the abdomen is obtained. COMPARISON: None. FINDINGS: Aortoiliac stent graft is seen. Left renal calculus measures 7 mm. No right renal calculi a re identified. Atherosclerosis is seen of the common iliac arteries and their branches. Moderate dege nerative changes of the femoral acetabular joints with acetabular roof sclerosis and small marginal o steophytes. No dilated large or small bowel. IMPRESSION: Left-sided renal calculus measures 7 mm. No right renal calculi are seen.
== END | disposition home or self-care (01) ==
LOC: RADXRMAIN 12:01
PROVIDERS: ATTEND Urology
DX: N20.0 Calculus of kidney (principal)
CPT/HCPCS: 74018

== ENCOUNTER → 2020-02-24 | Outpatient (CLI) | payer MEDICARE, OTHER ==
[2020-02-24 18:21] LABS: African American GFR (CKD) 112.4 (60.0-200.0); Albumin 3.9 g/dL (3.80-4.90); Albumin/Globulin Ratio 1.63 (1.60-3.17); Anion Gap 5.4 mmol/L (4.00-12.00); BUN/Creat Ratio 14.29 Ratio (12.00-20.00); Calcium 8.7 mg/dL (8.7-10.3); Carbon Dioxide 33.6 mmol/L (21.6-31.8); Chol/HDL Ratio 3.51; Globulin 2.4 g/dL (1.6-3.3); LDL Cholesterol,Calculated 85.8 mg/dL (0.0-131.0); Potassium 4.7 mmol/L (3.5-5.5); Total Bilirubin 0.5 mg/dL (0.3-1.2); Total Protein 6.3 g/dL (6.2-8.2); VLDL Calculation 12.2 mg/dL (5.00-40.00)
== END | disposition home or self-care (01) ==
LOC: LABWHC1 10:11
PROVIDERS: ATTEND Nurse Practitioner Adult Health
DX: I10 Essential (primary) hypertension (principal); E78.2 Mixed hyperlipidemia
CPT/HCPCS: 36415; 80053; 80061

== ENCOUNTER 2020-03-06 16:27 | Inpatient (IN) | payer MEDICARE, OTHER ==
[2020-03-06] MEDS ORDERED: ALBUTEROL NEBULIZED 2.5 MG/3 ML INHALATION STA (17:20)
[2020-03-06] MEDS ORDERED: IPRATROPIUM 0.5 MG/2.5 ML NEBU INHALATION STA (17:20)
[2020-03-06] MEDS ORDERED: DEXAMETHASONE SOD PHOSPHATE 10 MG/ML 1 ML VIAL IV STA (17:20)
--- NOTE | 2020-03-06 17:25 | ED ---
General Adult HPI - General Chief complaint: Shortness of Breath Stated complaint: SOB, dizziness, chest pain Time Seen by Provider: 03/06/20 16:32 Source: EMS Mode of arrival: EMS Limitations: no limitations - History of Present Illness Initial comments: Dictation was produced using [employer] dictation software. please excuse any grammatical, word or spelling errors. This patient was cared for during a federal and state declared state of emergenc y secondary to Covid 19 Chief Complaint: 69-year-old male presents with episode of chest pain, dizziness, shortness of breath. History of Present Illness: Patient is 61-year-old male he presents to us from home. He is brought in by emergency medical services. EMS was called by patient's . Prior to coming to the ER patient had a 2 hour long episode of dizziness, chest pain, shortness of breath. Patient states his symptoms have been persistent however upon arriving to the emergency department his symptoms are dramatically improved. Patient does still complain of residual shortness of breath. Patient has history of COPD. Continues to use tobacco. Denies any pain in his lower extremities. He reports he's been having a productive cough that appeared to be more green than usual. 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 The ROS documented in this emergency department record has been reviewed and confirmed by me. Those systems with pertinent positive or negative responses have been documented in the HPI. All other systems are other negative and/or noncontributory. PHYSICAL EXAM: General Impression: Alert and oriented x3, not in acute distress HEENT: Normocephalic atraumatic, extra-ocular movements intact, pupils equal and reactive to light bilaterally, mucous membranes moist. Cardiovascular: Heart regular rate and rhythm Chest: Able to complete full sentences, no retractions, no tachypnea, diffuse lung wheezing Abdomen: abdomen soft, non-tender, non-distended, no organomegaly Musculoskeletal: Pulses present and equal in all extremities, no peripheral edema Motor: no focal deficits noted Neurological: CN II-XII grossly intact, no focal motor or sensory deficits noted Skin: Intact with no visualized rashes Psych: Normal affect and mood ED course: 61-year-old male presents with 2 hour long episode of shortness of breath, chest discomfort and dizziness. Vital signs upon arrival are within acceptable limits. Patient feels better with supplemental oxygen. He is well appearing at bedside. He does complain of shortness of breath currently however he reports improvement of his dizziness and chest pain since being in the emergency department. EKG appears benign. No signs of EKG for infarction or ischemia. Laboratory evaluation obtained. CBC is unremarkable. Coag panel is negative. Metabolic panel shows potassium of 5.9 however it is a hemolyzed specimen. Rest metabolic panel is unremarkable. Troponin is 0.026. This is slightly elevated that patient's usual. Chest x-ray is unremarkable. Given the patient did complain of some chest pain earlier we will give patient an aspirin. Patient feels significantly better after breathing treatment. Patient has elevated d- dimer. CT angios obtained showing no findings to suggest pulmonary embolus. Patient be admitted for COPD exacerbation and elevated troponin. We will have patient admitted for serial troponins. Patient given aspirin. EKG interpretation: Ventricular rate 74, sinus rhythm,. Interval 120, QRS 90, QTc 448. No AL prolongation, no QTC prolongation, no ST or T-wave changes noted. EKG compared to 07/14/2019 showing no changes. Overall, this EKG is unremarkable - Related Data Home Medications Medication Instructions Recorded Confirmed Albuterol Inhaler (Mhu) [Ventolin 2 puff INHALATION RT-QID PRN 03/02/16 07/14/19 Hfa Inhaler (Mhu)] Atorvastatin [Lipitor] 80 mg PO HS 05/04/18 07/14/19 Metoprolol Succinate (ER) [Toprol 100 mg PO DAILY 05/04/18 07/14/19 XL] Umeclidinium [place] [Incruse 1 puff INHALATION RT-DAILY 03/04/19 07/14/19 Ellipta] lisinopriL [Zestril] 20 mg PO BID 03/04/19 07/14/19 amLODIPine [Norvasc] 5 mg PO QAM 06/25/19 07/14/19 guaiFENesin-DM 600/30MG [Mucinex 1 tab PO Q12HR 06/25/19 07/14/19 Dm] Previous Rx's Medication Instructions Recorded traMADol HCL [Ultram] 50 mg PO Q6HR PRN #24 tab MDD 8 06/29/19 TABS Famotidine [Pepcid] 20 mg PO BID #28 tablet 07/02/19 Budesonide [Pulmicort] 1 mg INHALATION RT-BID #30 ml 07/17/19 Ipratropium-Albuterol Nebulize 3 ml INHALATION RT-QID #120 ml 07/17/19 [Duoneb 0.5 mg-3 mg/3 ml Soln] Levofloxacin [Levaquin] 750 mg PO DAILY 5 Days #5 tab 07/17/19 Nicotine 14Mg/24Hr Patch [Habitrol] 1 patch TRANSDERM DAILY #30 patch 07/17/19 predniSONE 10 mg PO DIRECTED #30 tab 07/17/19 Allergies Allergy/AdvReac Type Severity Reaction Status Date / Time Penicillins Allergy Rash/Hives Verified 07/14/19 09:08 Review of Systems ROS Statement: Those systems with pertinent positive or pertinent negative responses have been documented in the HPI. ROS Other: All systems not noted in ROS Statement are negative. Past Medical History Past Medical History: Coronary Artery Disease (CAD), COPD, GERD/Reflux, Hearing Disorder / Deafness, Hyperlipidemia, Hypertension, Pneumonia, Vascular Disorder Additional Past Medical History / Comment(s): Severe COPD, history of autoimmune disease had work up by Dr. Goins and [facility]-never received specifics about the disease type, aortic aneurysm with repair, thoracolumbar pain/T4 fracture with recent surgery, current nephrolithiasis-has passed stones on his own in the past, bilateral leg cramps, left eardrum perforation/[place] History of Any Multi-Drug Resistant Organisms: None Reported Past Surgical History: Appendectomy, Back Surgery, Ear Surgery, Heart Catheterization, Hernia Repair Additional Past Surgical History / Comment(s): 06/29/19 T4 kyphoplasty, Endovascular stent grafting of a abdominal aortic aneurysm. Facial reconstructive surgery. L ear surgery-myringotomy. Umbilical hernia. [place] copy-benign polypectomy. R cataract removed with lens. L eye had glass removed and lens placed. Past Anesthesia/Blood Transfusion Reactions: No Reported Reaction Additional Past Anesthesia/Blood Transfusion Reaction / Comment(s): Pt has never recieved blood. Past Psychological History: No Psychological Hx Reported Smoking Status: Current every day smoker Past Alcohol Use History: Occasional Past Drug Use History: None Reported - Past Family History Brother(s) Family Medical History: Cancer Additional Family Medical History / Comment(s): Brother of lung cancer at the age of 42 yrs. He was a smoker. Sister(s) Family Medical History: Cancer Additional Family Medical History / Comment(s): Sister of lung cancer. She was a smoker. Father Family Medical History: Myocardial Infarction ([place]) Additional Family Medical History / Comment(s): Father at age 75 yrs of a [place] Mother Family Medical History: Cancer Additional Family Medical History / Comment(s): Mother of metastatic cancer (unknown primary) at age 42 yrs. General Exam Limitations: no limitations Course Vital Signs 03/06/20 03/06/20 03/06/20 16:35 17:43 17:50 Temperature 98.5 F Pulse Rate 76 74 77 Respiratory 74 H Rate Blood Pressure 157/94 O2 Sat by Pulse 96 Oximetry 03/06/20 03/06/20 03/06/20 18:01 18:30 19:00 Temperature Pulse Rate 68 70 64 Respiratory 30 H 29 H 24 Rate Blood Pressure 120/73 120/73 122/77 O2 Sat by Pulse 93 L 94 L 94 L Oximetry 03/06/20 03/06/20 03/06/20 19:30 20:10 20:18 Temperature Pulse Rate 69 69 68 Respiratory 25 H Rate Blood Pressure 131/86 O2 Sat by Pulse 92 L Oximetry 03/06/20 03/06/20 20:24 20:49 Temperature Pulse Rate 68 71 Respiratory 20 Rate Blood Pressure 133/75 O2 Sat by Pulse 96 Oximetry Medical Decision Making - Lab Data Result diagrams: 03/06/20 17:13 03/06/20 19:43 Lab Results 03/06/20 03/06/20 03/06/20 Range/Units 17:13 17:13 17:13 WBC 4.2 (3.8-10.6) k/uL RBC 5.50 (4.30-5.90) m/uL Hgb 15.5 (13.0-17.5) gm/dL Hct 49.4 (39.0-53.0) % MCV 89.7 (80.0-100.0) fL MCH 28.2 (25.0-35.0) pg MCHC 31.4 (31.0-37.0) g/dL RDW 14.2 (11.5-15.5) % Plt Count 112 L (150-450) k/uL Neutrophils % 64 % Lymphocytes % 20 % Monocytes % 8 % Eosinophils % 4 % Basophils % 2 % Neutrophils # 2.7 (1.3-7.7) k/uL Lymphocytes # 0.9 L (1.0-4.8) k/uL Monocytes # 0.3 (0-1.0) k/uL Eosinophils # 0.2 (0-0.7) k/uL Basophils # 0.1 (0-0.2) k/uL PT 11.1 (9.0-12.0) sec INR 1.1 (<1.2) APTT 20.4 L (22.0-30.0) sec D-Dimer (<0.60) mg/L FEU Sodium 136 L (137-145) mmol/L Potassium 5.9 H (3.5-5.1) mmol/L Chloride 99 (98-107) mmol/L Carbon Dioxide 35 H (22-30) mmol/L Anion Gap 2 mmol/L BUN 12 (9-20) mg/dL Creatinine 0.54 L (0.66-1.25) mg/dL Est GFR (CKD-EPI)AfAm >90 (>60 ml/min/1.73 sqM) Est GFR (CKD-EPI)NonAf >90 (>60 ml/min/1.73 sqM) Glucose 98 (74-99) mg/dL Plasma Lactic Acid Ricky (0.7-2.0) mmol/L Calcium 8.3 L (8.4-10.2) mg/dL Total Bilirubin 1.1 (0.2-1.3) mg/dL AST 31 (17-59) U/L ALT 9 (4-49) U/L Alkaline Phosphatase 62 (38-126) U/L Troponin I (0.000-0.034) ng/mL Total Protein 7.2 (6.3-8.2) g/dL Albumin 3.9 (3.5-5.0) g/dL 03/06/20 03/06/20 03/06/20 Range/Units 17:13 17:13 17:13 WBC (3.8-10.6) k/uL RBC (4.30-5.90) m/uL Hgb (13.0-17.5) gm/dL Hct (39.0-53.0) % MCV (80.0-100.0) fL MCH (25.0-35.0) pg MCHC (31.0-37.0) g/dL RDW (11.5-15.5) % Plt Count (150-450) k/uL Neutrophils % % Lymphocytes % % Monocytes % % Eosinophils % % Basophils % % Neutrophils # (1.3-7.7) k/uL Lymphocytes # (1.0-4.8) k/uL Monocytes # (0-1.0) k/uL Eosinophils # (0-0.7) k/uL Basophils # (0-0.2) k/uL PT (9.0-12.0) sec INR (<1.2) APTT (22.0-30.0) sec D-Dimer 13.78 H (<0.60) mg/L FEU Sodium (137-145) mmol/L Potassium (3.5-5.1) mmol/L Chloride (98-107) mmol/L Carbon Dioxide (22-30) mmol/L Anion Gap mmol/L BUN (9-20) mg/dL Creatinine (0.66-1.25) mg/dL Est GFR (CKD-EPI)AfAm (>60 ml/min/1.73 sqM) Est GFR (CKD-EPI)NonAf (>60 ml/min/1.73 sqM) Glucose (74-99) mg/dL Plasma Lactic Acid Ricky 1.1 (0.7-2.0) mmol/L Calcium (8.4-10.2) mg/dL Total Bilirubin (0.2-1.3) mg/dL AST (17-59) U/L ALT (4-49) U/L Alkaline Phosphatase (38-126) U/L Troponin I 0.026 (0.000-0.034) ng/mL Total Protein (6.3-8.2) g/dL Albumin (3.5-5.0) g/dL 03/06/20 03/06/20 Range/Units 19:40 19:43 WBC (3.8-10.6) k/uL RBC (4.30-5.90) m/uL Hgb (13.0-17.5) gm/dL Hct (39.0-53.0) % MCV (80.0-100.0) fL MCH (25.0-35.0) pg MCHC (31.0-37.0) g/dL RDW (11.5-15.5) % Plt Count (150-450) k/uL Neutrophils % % Lymphocytes % % Monocytes % % Eosinophils % % Basophils % % Neutrophils # (1.3-7.7) k/uL Lymphocytes # (1.0-4.8) k/uL Monocytes # (0-1.0) k/uL Eosinophils # (0-0.7) k/uL Basophils # (0-0.2) k/uL PT (9.0-12.0) sec INR (<1.2) APTT (22.0-30.0) sec D-Dimer 0.92 H (<0.60) mg/L FEU Sodium (137-145) mmol/L Potassium 5.3 H (3.5-5.1) mmol/L Chloride (98-107) mmol/L Carbon Dioxide (22-30) mmol/L Anion Gap mmol/L BUN (9-20) mg/dL Creatinine (0.66-1.25) mg/dL Est GFR (CKD-EPI)AfAm (>60 ml/min/1.73 sqM) Est GFR (CKD-EPI)NonAf (>60 ml/min/1.73 sqM) Glucose (74-99) mg/dL Plasma Lactic Acid Ricky (0.7-2.0) mmol/L Calcium (8.4-10.2) mg/dL Total Bilirubin (0.2-1.3) mg/dL AST (17-59) U/L ALT (4-49) U/L Alkaline Phosphatase (38-126) U/L Troponin I (0.000-0.034) ng/mL Total Protein (6.3-8.2) g/dL Albumin (3.5-5.0) g/dL Disposition Clinical Impression: Chest pain, COPD exacerbation Disposition: ADMITTED IP TO THIS HOSP Condition: Fair Referrals: Jamie Balderas DO [Primary Care Provider] - 1-2 days Decision Time: 21:03
[2020-03-06 17:26] LABS: Basophils # (A) 0.1 k/uL (0-0.2); Basophils % (A) 2 %; Eosinophils # (A) 0.2 k/uL (0-0.7); Eosinophils % (A) 4 %; HCT 49.4 % (39.0-53.0); HGB 15.5 gm/dL (13.0-17.5); Lymphocytes # (A) 0.9 k/uL (1.0-4.8); Lymphocytes % (A) 20 %; MCH 28.2 pg (25.0-35.0); MCHC 31.4 g/dL (31.0-37.0); MCV 89.7 fL (80.0-100.0); Mean Platelet Volume 9.9; Monocytes # (A) 0.3 k/uL (0-1.0); Monocytes % (A) 8 %; Neutrophils # (A) 2.7 k/uL (1.3-7.7); Neutrophils % (A) 64 %; Platelet Count 112 k/uL (150-450); RDW 14.2 % (11.5-15.5); WBC 4.2 k/uL (3.8-10.6)
--- NOTE | 2020-03-06 17:30 | XR ---
EXAMINATION TYPE: XR chest 2V DATE OF EXAM: 03/06/2020 COMPARISON: 07/15/2019 HISTORY: Difficulty breathing TECHNIQUE: FINDINGS: There is no heart failure nor confluent pneumonic infiltrate. There is some coarsening of i nterstitial markings. Heart size is normal. Thoracic aorta is atheromatous. There are chest leads. Co stophrenic angles are clear. There is vertebroplasty of mid thoracic vertebra. There is old right pos terior rib fracture. IMPRESSION: No active cardiopulmonary disease. No change. Mild pulmonary fibrotic changes.
[2020-03-06 17:36] LABS: ALT 9 U/L (4-49); AST 31 U/L (17-59); African American GFR (CKD) >90 (>60 ml/min/1.73 sqM); Albumin 3.9 g/dL (3.5-5.0); Alkaline Phosphatase 62 U/L (38-126); Anion Gap 2 mmol/L; Blood Urea Nitrogen 12 mg/dL (9-20); Calcium 8.3 mg/dL (8.4-10.2); Carbon Dioxide 35 mmol/L (22-30); Chloride 99 mmol/L (98-107); Glucose 98 mg/dL (74-99); Non-African American GFR(CKD) >90 (>60 ml/min/1.73 sqM); Sodium 136 mmol/L (137-145); Total Bilirubin 1.1 mg/dL (0.2-1.3); Total Protein 7.2 g/dL (6.3-8.2)
[2020-03-06 18:08] LABS: Potassium 5.9 mmol/L (3.5-5.1)
[2020-03-06 18:13] LABS: INR 1.1 (<1.2); Prothrombin Time 11.1 sec (9.0-12.0)
[2020-03-06 18:16] LABS: Partial Thromboplastin Time 20.4 sec (22.0-30.0)
[2020-03-06] MEDS ORDERED: ACETAMINOPHEN TAB 500 MG TAB PO PRN (18:56)
[2020-03-06] MEDS ORDERED: HYDROcodone/APAP 5-325MG 1 EACH TAB PO PRN (18:56)
[2020-03-06] MEDS ORDERED: ALPRAZolam 0.25 MG TAB PO PRN (18:56)
[2020-03-06] MEDS ORDERED: SODIUM POLYSTYRENE SULFONATE 15 GM/60 ML BOTTLE PO STA (18:57)
[2020-03-06] MEDS ORDERED: AZITHROMYCIN 500 MG in SODIUM CHLORIDE 0.9% 250 ML IVPB SCH ×2 (19:00→19:03)
[2020-03-06] MEDS: methylPREDNISolone SOD SUCCI 125 MG/2 ML VIAL IV SCH (19:48)
[2020-03-06] MEDS: FORMOTEROL FUMARATE 20 MCG/2 ML NEBU INHALATION SCH (20:06)
[2020-03-06] MEDS: BUDESONIDE 1 MG/2 ML NEBU INHALATION SCH (20:06)
[2020-03-06] MEDS ORDERED: ASPIRIN 81 MG PO STA (20:47)
[2020-03-06] MEDS ORDERED: NALOXONE 0.4 MG/ML 1 ML VIAL IV PRN (20:48)
--- NOTE | 2020-03-06 21:00 | CT ---
EXAMINATION TYPE: CT angio chest DATE OF EXAM: 03/06/2020 COMPARISON: 07/02/2019 HISTORY: Shortness of breath with chest pain CT DLP: 321.5 mGycm Automated exposure control for dose reduction was used. CONTRAST: Performed with IV Contrast, patient injected with 100 mL of Isovue 300. There are 3-D post processed images. There is some peripheral mild reticular pulmonary interstitial density. There is no evidence of a pul monary mass. There is some atelectasis and scarring at both lung bases. Heart size is normal. There i s no pericardial effusion. There is small right pleural effusion. There is small hiatal hernia unchanged. There are calculi upper pole left kidney. There is normal contrast opacification of the pulmonary arteries. There are no filling defects. There is no mediastinal adenopathy. Thoracic aorta is atheromatous. There are no hilar masses. There is 1. 5 cm right bronchial lymph nodes. There is no sign of aortic aneurysm. There is old compression fract ure of T6 with vertebroplasty and 40% anterior wedging. IMPRESSION: No evidence of pulmonary embolism. COPD and pulmonary fibrosis. There is a new small right pleural ef fusion compared to old exam.
[2020-03-06] MEDS: AZITHROMYCIN 500 MG in SODIUM CHLORIDE 0.9% 250 ML IVPB SCH (21:52)
[2020-03-06] MEDS: INSULIN ASPART (NovoLOG) 100 UNIT/ML VIAL SQ SCH (22:45)
[2020-03-06] MEDS: HEPARIN SODIUM,PORCINE 5,000 UNIT/ML 1 ML VIAL SQ SCH (22:45)
[2020-03-06] MEDS: SODIUM CHLORIDE 0.9% 1,000 ML IV SCH (22:46)
[2020-03-06 22:55] LABS: Glucose,Whole Blood 128 mg/dL (75-99)
[2020-03-07] MEDS: IPRATROPIUM-ALBUTEROL 3 ML NEB INHALATION SCH ×5 (00:53→20:13)
[2020-03-07] MEDS: methylPREDNISolone SOD SUCCI 125 MG/2 ML VIAL IV SCH ×5 (01:00→23:57)
--- NOTE | 2020-03-07 02:32 | HP ---
HISTORY AND PHYSICAL I am covering for Dr. Balderas. CHIEF COMPLAINT: Shortness of breath. HISTORY OF PRESENT ILLNESS: This 69-year-old gentleman with a past medical history of multiple medical problems including history of COPD, history of CAD, history of hard of hearing, hypertension, hyperlipidemia, being followed by Dr. Balderas in the outpatient setting also had autoimmune disease being followed by Dr. Goins and [facility]. The patient apparently continued to smoke and the patient is complaining of shortness of breath over the past several days. The patient came to [facility] and admitted for further evaluation and treatment. A chest x-ray was done in the ER which I reviewed personally which was reported as showing some increased bronchovascular but no active pulmonary disease. There is no history of fever, rigors. No history of headache, loss of consciousness or seizures. PAST MEDICAL HISTORY: History of COPD, CAD, hypertension, hyperlipidemia, history of pneumonia, history of DJD. MEDICATIONS: Medications prior to admission, home medications are: 1. Ultram. 2. Prednisone. 3. Zestril. 4. Guaifenesin. 5. Norvasc. 6. Incruse Ellipta. 7. Habitrol 14. 8. Toprol XL. 9. Levaquin. 10.DuoNeb. 11.Pepcid. 12.Pulmicort. 13.Lipitor. 14.Albuterol. Doses are reviewed. ALLERGIES: PENICILLIN. FAMILY HISTORY: History of myocardial infarction in the family. SOCIAL HISTORY: Continued ongoing smoking. No history of alcohol intake. REVIEW OF SYSTEMS: ENT: No diminished vision. CARDIOVASCULAR SYSTEM: No angina. RESPIRATORY SYSTEM: As mentioned earlier. GI: As mentioned earlier. : No dysuria. NERVOUS SYSTEM: No numbness or weakness. ALLERGY/IMMUNOLOGY: No asthma. MUSCULOSKELETAL: As mentioned earlier. HEMATOLOGY: No history anemia. ENDOCRINE: No history of diabetes or hypothyroidism. CONSTITUTIONAL: As mentioned earlier. DERMATOLOGY: Negative. RHEUMATOLOGY: Negative. PSYCHIATRY: As mentioned earlier. PHYSICAL EXAM: The patient is alert and oriented x3. Pulse is 70, blood pressure 157/94, respiration 18, temperature 98.5, pulse ox 96% on 4 L. HEENT: Conjunctivae normal. Oral mucosa moist. NECK: No jugular venous distention. No carotid bruit. No lymph node enlargement. CARDIOVASCULAR: S1, S2 muffled. RESPIRATORY: Breath sounds diminished at the bases. Bilateral scattered rhonchi and crackles. Expiratory wheezing also present. ABDOMEN: Soft, nontender. No mass palpable. LEGS: No edema, no swelling. NERVOUS SYSTEM: Higher functions as mentioned earlier. Moves all 4 limbs. No focal motor or sensory deficits. LYMPHATICS: No lymphadenopathy of the neck, axillae or groin. SKIN: No ulcer, rash or bleeding. JOINTS: No active deforming arthropathy. LABS: CBC shows platelets 112. Sodium 136, potassium 5.3. CO2 is 35. ASSESSMENT: 1. Chronic obstructive pulmonary disease acute exacerbation with acute purulent tracheobronchitis, rule out COVID-19. 2. Hyponatremia. 3. Hyperkalemia. 4. Thrombocytopenia. 5. History of coronary artery disease. 6. Gastroesophageal reflux disease. 7. Hypertension. 8. Hyperlipidemia. 9. History of hard of hearing. 10.History of pneumonia. 11.History of autoimmune disorder. 12.History of aortic aneurysm with repair. 13.History of T4 fracture. 14.History of nephrolithiasis. 15.History of appendectomy. 16.History of back surgery. 17.History of hernia repair. 18.Continued ongoing nicotine dependence. 19.FULL CODE. RECOMMENDATIONS AND DISCUSSION: This 69-year-old gentleman who presented with multiple complex medical issues, we will monitor the patient closely. Continue the current medications. Continue symptomatic treatment. We will optimize the bronchodilator treatment, empiric antibiotics, steroids. Pulmonary consultation. Prognosis guarded because of multiple complex medical issues. Further recommendations to follow. A copy of dictation forwarded to Dr. Balderas who is the primary physician. Dr. Balderas will follow tomorrow. See orders for details. We will repeat electrolytes also. I would also give some Kayexalate at this time. MMODL / IJN: [id number] / MTDD
[2020-03-07 06:04] LABS: Glucose,Whole Blood 132 mg/dL (75-99)
[2020-03-07] MEDS: PANTOPRAZOLE 40 MG TABLET PO SCH (06:57)
[2020-03-07] MEDS: INSULIN ASPART (NovoLOG) 100 UNIT/ML VIAL SQ SCH ×4 (06:57→21:10)
[2020-03-07 07:42] LABS: Basophils % (A) 1 %; Eosinophils % (A) 1 %; HCT 52.7 % (39.0-53.0); HGB 16.6 gm/dL (13.0-17.5); Lymphocytes # (A) 0.2 k/uL (1.0-4.8); Lymphocytes % (A) 9 %; MCH 28.2 pg (25.0-35.0); MCHC 31.5 g/dL (31.0-37.0); MCV 89.6 fL (80.0-100.0); Mean Platelet Volume 8.1; Monocytes # (A) 0.1 k/uL (0-1.0); Monocytes % (A) 3 %; Neutrophils # (A) 2.2 k/uL (1.3-7.7); Neutrophils % (A) 86 %; Platelet Count 141 k/uL (150-450); RBC 5.89 m/uL (4.30-5.90); RDW 14.3 % (11.5-15.5); WBC 2.5 k/uL (3.8-10.6)
[2020-03-07 08:24] LABS: African American GFR (CKD) >90 (>60 ml/min/1.73 sqM); Anion Gap 2 mmol/L; Blood Urea Nitrogen 15 mg/dL (9-20); Calcium 8.3 mg/dL (8.4-10.2); Carbon Dioxide 36 mmol/L (22-30); Chloride 98 mmol/L (98-107); Glucose 150 mg/dL (74-99); Non-African American GFR(CKD) >90 (>60 ml/min/1.73 sqM); Potassium 5.3 mmol/L (3.5-5.1); Sodium 136 mmol/L (137-145)
[2020-03-07] MEDS: FORMOTEROL FUMARATE 20 MCG/2 ML NEBU INHALATION SCH ×2 (08:28→20:13)
[2020-03-07] MEDS: BUDESONIDE 1 MG/2 ML NEBU INHALATION SCH ×2 (08:28→20:12)
[2020-03-07] MEDS: NICOTINE 14MG/24HR PATCH TRANSDERM SCH (09:00)
[2020-03-07] MEDS: HEPARIN SODIUM,PORCINE 5,000 UNIT/ML 1 ML VIAL SQ SCH ×2 (09:01→20:23)
[2020-03-07] MEDS ORDERED: AMINOPHYLLINE 500 MG/20 ML VIAL IV PRN (10:19)
[2020-03-07] MEDS ORDERED: REGADENOSON 0.4 MG/5 ML SYRINGE IV ONE (10:19)
[2020-03-07] MEDS ORDERED: CAFFEINE CITRATE 60 MG/3 ML VIAL IV PRN (10:19)
--- NOTE | 2020-03-07 12:48 | P.CRDCN ---
History of Present Illness Consult date: 03/07/20 History of present illness: CHIEF COMPLAINT: Elevated troponin HISTORY OF PRESENT ILLNESS: This is a 69-year old male with a past medical history significant for mild coronary artery disease, hypertension, hyperlipidemia, and COPD. Patient follows in the office with Dr. Jack. We have been asked to see the patient in consultation for elevated troponin. Patient examined this morning at the bedside. Patient reports he has been having chest pain for the last 2 days. Patient points to the epigastric region when asked where his chest pain is at. He states the pain has been intermittent over the past 2 days. He describes the pain as a burning sensation. The pain is not worse with deep inspiration and there is no pain with palpation of the chest. He reports he has felt dizzy and off balance for the past couple days. He reports shortness of breath as well. Patient underwent cardiac cath in February [address] Jack revealing mild triple vessel disease with 20-30% lesion of the circumflex and 20% of the RCA. DIAGNOSTICS: EKG reveals sinus rhythm with T-wave inversions in V1 through V3 similar to previous EKG. Chest xray no active cardiopulmonary process. CTA chest: No evidence of pulmonary embolus. COPD and pulmonary fibrosis. New small right pleural effusion compared to old exam. Laboratory data: WBC 2.5. Hemoglobin 16.6. Platelet count 141. Sodium 136. Potassium 5.3. BUN 15. Creatinine 0.56. Troponin negative 2. Current home cardiac medications include Lipitor 80 mg daily, Toprol-XL 100 mg daily, lisinopril 20 mg twice a day, Norvasc 5 mg daily. REVIEW OF SYSTEMS: At the time of my exam: CONSTITUTIONAL: Denies fever or chills. HEENT: Denies blurred vision, vision changes, or eye pain. Denies hemoptysis CARDIOVASCULAR: Reports mild chest pain. Denies orthopnea, PND or palpitations RESPIRATORY: Reports mild shortness of breath. GASTROINTESTINAL: Denies abdominal pain. Denies nausea or vomiting. HEMATOLOGIC: Denies bleeding disorders. GENITOURINARY: Denies any blood in urine. SKIN: Denies pruitis. Denies rash. PHYSICAL EXAM: VITAL SIGNS: Reviewed. GENERAL: Well-developed in no acute distress. HEENT: Head is normocephalic. Pupils are equal, round. Sclerae anicteric. Mucous membranes of the mouth are moist. Neck supple. No JVD or thyromegaly LUNGS: Respirations even and unlabored. Lungs diminished. HEART: Regular rate and rhythm. S1 and S2 heard. ABDOMEN: Soft. Nondistended. Nontender. EXTREMITIES: Normal range of motion. No clubbing or cyanosis. Peripheral pulses intact. No lower extremity edema NEUROLOGIC: Awake and alert. Oriented x 3. ASSESSMENT: Chest pain, troponin negative x 3 Dizziness Nonobstructive coronary artery disease COPD Hypertension Hyperlipidemia Nicotine dependence PLAN: Obtain 2D echo to assess cardiac function Monitor serial troponins Check orthostatic blood pressures Obtain Marlena scan stress test to assess for reversible ischemia Nurse practitioner note has been reviewed by physician. Signing provider agrees with the documented findings, assessment, and plan of care. Past Medical History Past Medical History: Coronary Artery Disease (CAD), COPD, GERD/Reflux, Hearing Disorder / Deafness, Hyperlipidemia, Hypertension, Pneumonia, Vascular Disorder Additional Past Medical History / Comment(s): Severe COPD, history of autoimmune disease had work up by Dr. Goins and [facility]-never received specifics about the disease type, aortic aneurysm with repair, thoracolumbar pain/T4 fracture with recent surgery, current nephrolithiasis-has passed stones on his own in the past, bilateral leg cramps, left eardrum perforation/[place] History of Any Multi-Drug Resistant Organisms: None Reported Past Surgical History: Appendectomy, Back Surgery, Ear Surgery, Heart Catheterization, Hernia Repair Additional Past Surgical History / Comment(s): 06/29/19 T4 kyphoplasty, Endovascular stent grafting of a abdominal aortic aneurysm. Facial reconstructive surgery. L ear surgery-myringotomy. Umbilical hernia. Colonoscopy-benign polypectomy. R cataract removed with lens. L eye had glass removed and lens placed. Past Anesthesia/Blood Transfusion Reactions: No Reported Reaction Additional Past Anesthesia/Blood Transfusion Reaction / Comment(s): Pt has never recieved blood. Past Psychological History: No Psychological Hx Reported Additional Psychological History / Comment(s): Pt resides with his spouse. 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 Pt uses no assistive device. He drives. Smoking Status: Current every day smoker Past Alcohol Use History: Occasional Additional Past Alcohol Use History / Comment(s): Pt started smoking in 1961. Pt states he is down to 2cigarettes a day, from 2ppd and has not soked at all in past 2 days. Past Drug Use History: None Reported - Past Family History Brother(s) Family Medical History: Cancer Additional Family Medical History / Comment(s): Brother of lung cancer at the age of 42 yrs. He was a smoker. Sister(s) Family Medical History: Cancer Additional Family Medical History / Comment(s): Sister of lung cancer. She was a smoker. Father Family Medical History: Myocardial Infarction ([place]) Additional Family Medical History / Comment(s): Father at age 75 yrs of a [place] Mother Family Medical History: Cancer Additional Family Medical History / Comment(s): Mother of metastatic cancer (unknown primary) at age 42 yrs. Medications and Allergies Home Medications Medication Instructions Recorded Confirmed Type Atorvastatin [Lipitor] 80 mg PO HS 05/04/18 03/06/20 History Metoprolol Succinate (ER) [Toprol 100 mg PO DAILY 05/04/18 03/06/20 History XL] Umeclidinium [place] [Incruse 2 puff INHALATION RT-DAILY 03/04/19 03/06/20 History Ellipta] lisinopriL [Zestril] 20 mg PO BID 03/04/19 03/06/20 History amLODIPine [Norvasc] 5 mg PO QAM 06/25/19 03/06/20 History Albuterol Nebulized [Ventolin 2.5 mg INHALATION QID PRN 03/06/20 03/06/20 History Nebulized] Albuterol Sulfate [Ventolin HFA] 2 puff INHALATION RT-QID 03/06/20 03/06/20 History SILVER sulfADIAZINE CREAM 1 applic TOPICAL BID 03/06/20 03/06/20 History [Silvadene Cream] Allergies Allergy/AdvReac Type Severity Reaction Status Date / Time Penicillins Allergy Rash/Hives Verified 03/06/20 21:14 Physical Exam Vitals: Vital Signs Temp Pulse Pulse Resp BP BP Pulse Ox 03/07/20 11:41 65 20 03/07/20 11:03 97 F L 80 20 138/80 90 L 03/07/20 08:50 74 03/07/20 08:39 70 03/07/20 08:38 70 03/07/20 08:28 70 03/07/20 08:00 65 22 122/75 97 03/07/20 04:00 97.2 F L 63 18 114/60 93 L 03/07/20 00:00 78 18 134/78 97 03/06/20 21:56 98.3 F 65 18 132/80 96 03/06/20 21:43 95 03/06/20 21:41 98.2 F 70 20 122/66 93 L 03/06/20 21:30 98.2 F 67 20 138/84 93 L 03/06/20 21:00 68 16 133/75 95 03/06/20 20:49 71 20 133/75 96 03/06/20 20:30 150/89 03/06/20 20:24 68 03/06/20 20:18 68 03/06/20 20:10 69 03/06/20 20:00 67 29 H 136/88 93 L 03/06/20 19:30 69 25 H 131/86 92 L 03/06/20 19:00 64 24 122/77 94 L 03/06/20 18:30 70 29 H 120/73 94 L 03/06/20 18:01 68 30 H 120/73 93 L 03/06/20 17:50 77 03/06/20 17:43 74 03/06/20 16:35 98.5 F 76 74 H 157/94 96 Intake and Output 03/06/20 03/07/20 03/07/20 22:59 06:59 14:59 Output Total 300 Balance -300 Output: Urine 300 Other: Voiding Method Toilet Urinal Urinal # Voids 1 Weight 72.575 kg 78.5 kg Results 03/07/20 06:34 03/07/20 07:31 Cardiac Enzymes 03/06/20 03/06/20 03/07/20 Range/Units 17:13 17:13 08:09 AST 31 (17-59) U/L Troponin I 0.026 <0.012 (0.000-0.034) ng/mL Coagulation 03/06/20 Range/Units 17:13 PT 11.1 (9.0-12.0) sec APTT 20.4 L (22.0-30.0) sec CBC 03/06/20 03/07/20 Range/Units 17:13 06:34 WBC 4.2 2.5 L (3.8-10.6) k/uL RBC 5.50 5.89 (4.30-5.90) m/uL Hgb 15.5 16.6 (13.0-17.5) gm/dL Hct 49.4 52.7 (39.0-53.0) % Plt Count 112 L 141 L (150-450) k/uL Comprehensive Metabolic Panel 03/06/20 03/06/20 03/07/20 Range/Units 17:13 19:43 07:31 Sodium 136 L 136 L (137-145) mmol/L Potassium 5.9 H 5.3 H 5.3 H (3.5-5.1) mmol/L Chloride 99 98 (98-107) mmol/L Carbon Dioxide 35 H 36 H (22-30) mmol/L BUN 12 15 (9-20) mg/dL Creatinine 0.54 L 0.56 L (0.66-1.25) mg/dL Glucose 98 150 H (74-99) mg/dL Calcium 8.3 L 8.3 L (8.4-10.2) mg/dL AST 31 (17-59) U/L ALT 9 (4-49) U/L Alkaline Phosphatase 62 (38-126) U/L Total Protein 7.2 (6.3-8.2) g/dL Albumin 3.9 (3.5-5.0) g/dL Current Medications Generic Name Dose Route Start Last Admin Trade Name Freq PRN Reason Stop Dose Admin Acetaminophen 500 mg 03/06/20 18:56 Acetaminophen Tab 500 Mg Tab PO Q6HR PRN Fever and/ or Pain Hydrocodone Bitart/Acetaminophen 1 each 03/06/20 18:56 Hydrocodone/Apap 5-325mg 1 Each Tab PO Q6HR PRN Pain Albuterol/Ipratropium 3 ml 03/06/20 22:00 03/07/20 11:31 Ipratropium-Albuterol 3 Ml Neb INHALATION Not Given QID RAF Alprazolam 0.25 mg 03/06/20 18:56 Alprazolam 0.25 Mg Tab PO TID PRN Anxiety Aminophylline 100 mg 03/07/20 10:19 Aminophylline 500 Mg/20 Ml Vial IV 03/07/20 23:00 ONCE PRN Patient Response Budesonide 1 mg 03/06/20 20:00 10/05/20 08:28 Budesonide 1 Mg/2 Ml Nebu INHALATION 1 mg RT-BID RAF Administration Caffeine Citrate 60 mg 03/07/20 10:19 Caffeine Citrate 60 Mg/3 Ml Vial IV 03/07/20 23:00 ONCE PRN Patient Response Formoterol Fumarate 20 mcg 03/06/20 20:00 03/07/20 08:28 Formoterol Fumarate 20 Mcg/2 Ml Nebu INHALATION 20 mcg RT-BID RAF Administration Heparin Sodium (Porcine) 5,000 unit 03/06/20 21:00 03/07/20 09:01 Heparin Sodium,Porcine 5,000 Unit/Ml 1 Ml Vial SQ 5,000 unit Q12HR RAF Administration Ceftriaxone Sodium 1 gm/ 50 mls @ 100 mls/hr 03/06/20 19:00 03/07/20 09:00 Sodium Chloride IVPB 100 mls/hr Q24HR RAF Administration Azithromycin 500 mg/ Sodium 250 mls @ 250 mls/hr 03/06/20 19:00 03/06/20 21:52 Chloride IVPB 250 mls/hr DAILY@1900 RAF Administration Sodium Chloride 1,000 mls @ 20 mls/hr 03/06/20 21:00 03/06/20 22:46 Saline 0.9% IV 20 mls/hr .Q24H RAF Administration Insulin Aspart 0 unit 03/06/20 21:00 03/07/20 06:57 Insulin Aspart (Novolog) 100 Unit/Ml Vial SQ 1 unit ACHS RAF Administration Protocol Methylprednisolone Sodium Succinate 60 mg 03/06/20 19:00 03/07/20 06:56 Methylprednisolone Sod Succi 125 Mg/2 Ml Vial IV 60 mg Q6HR RAF Administration Multivitamins 1 each 03/07/20 12:00 Multivitamins, Thera 1 Each Tab PO DAILY@1200 RAF Naloxone HCl 0.2 mg 03/06/20 20:48 Naloxone 0.4 Mg/Ml 1 Ml Vial IV Q2M PRN Opioid Reversal Nicotine 1 patch 03/07/20 09:00 03/07/20 09:00 Nicotine 14mg/24hr Patch TRANSDERM 1 patch DAILY RAF Administration Pantoprazole Sodium 40 mg 03/07/20 07:30 03/07/20 06:57 Pantoprazole 40 Mg Tablet PO 40 mg [id number] RAF Administration Intake and Output 03/06/20 03/07/20 03/07/20 22:59 06:59 14:59 Output Total 300 Balance -300 Output: Urine 300 Other: Voiding Method Toilet Urinal Urinal # Voids 1 Weight 72.575 kg 78.5 kg 03/07/20 06:34 03/07/20 07:31
--- NOTE | 2020-03-07 12:53 | ECHOF ---
Referral Reason:chest pain MEASUREMENTS -------- HEIGHT: 177.8 cm WEIGHT: 78.5 kg BP: IVSd: 1.7 cm (0.6 - 1.1) LVIDd: 4.7 cm (3.9 - 5.3) LVPWd: 1.1 cm (0.6 - 1.1) IVSs: 1.9 cm LVIDs: 2.7 cm LVPWs: 1.7 cm LAESV Index (A-L): 32.13 ml/m Ao Diam: 3.6 cm (2.0 - 3.7) AV Cusp: 1.9 cm (1.5 - 2.6) LA Diam: 3.3 cm (2.7 - 3.8) MV EXCURSION: 14.013 mm (> 18.000) MV EF SLOPE: 48 mm/s (70 - 150) EPSS: 3.0 cm MV E Marcelino: 0.67 m/s MV DecT: 222 ms MV A Marcelino: 0.93 m/s MV E/A Ratio: 0.72 RAP: 15.00 mmHg RVSP: 20.09 mmHg FINDINGS -------- This was a technically good study. The left ventricular size is normal. Overall left ventricular systolic function is normal with, an EF between 55 - 60 %. Sigmoid shaped septum with focal hypertrophy of the basal septum. The remaini ng wall thickness is normal. The diastolic filling pattern is normal for the age of the patient 9.7 7. The right ventricle is normal in size. LA is midly dilated 29-33ml/m2. The right atrial size is normal. The aortic valve is trileaflet and appears structurally normal. The mitral valve is normal. There is trace mitral regurgitation. The tricuspid valve appears structurally normal. Trace tricuspid regurgitation present. Right saundra tricular systolic pressure is normal at < 35 mmHg. There is no pulmonic regurgitation present. The aortic root size is normal. The inferior vena cava is mildly dilated. There is no pericardial effusion. CONCLUSIONS -------- 1. The left ventricular size is normal. 2. Overall left ventricular systolic function is normal with, an EF between 55 - 60 %. 3. Sigmoid shaped septum with focal hypertrophy of the basal septum. The remaining wall thickness is normal. 4. The diastolic filling pattern is normal for the age of the patient 9.77 5. LA is midly dilated 29-33ml/m2. 6. There is trace mitral regurgitation. 7. Trace tricuspid regurgitation present. 8. The inferior vena cava is mildly dilated. 9. There is no pericardial effusion. [employer]: Mayte Kitchen RDCS
[2020-03-07] MEDS: MULTIVITAMINS, THERA 1 EACH TAB PO SCH (13:00)
[2020-03-07 13:01] LABS: Glucose,Whole Blood 126 mg/dL (75-99)
--- NOTE | 2020-03-07 13:37 | NM ---
EXAMINATION TYPE: NM stress lexiscan cardiolite DATE OF EXAM: 03/07/2020 COMPARISON: NONE HISTORY: Chest pain TECHNIQUE: After the intravenous administration of 10.3 mCi Tc 99m Sestamibi - Cardiolite resting SP ECT images acquired 45 minutes post injection. The patient received 0.4mg Lexiscan, 25.9 mCi Tc 99m Sestamibi - Stress images obtained [address] injection FINDINGS: Review of stress and rest SPECT images demonstrates fixed defect inferior wall and cardiac apex. No e vidence for stress-induced ischemia. Gated analysis shows normal wall motion with an estimated left v entricular ejection fraction of 53 %. IMPRESSION: Fixed defects cardiac apex and inferior wall.
--- NOTE | 2020-03-07 14:15 | EST ---
EXERCISE STRESS DATE OF SERVICE: March 07, 2020. INDICATION: Chest pain. AGE: 69 SEX: M HT: 6'0" WT: 173 lbs PROTOCOL: Lexiscan Cardiolite STAGE: DURATION OF EXERCISE: HEART RATE REST: 69 BLOOD PRESSURE REST: 132/76 MAXIMUM HEART RATE ACHIEVED: 88 MAXIMUM BLOOD PRESSURE: 126/77 85% MPHR: 129 100% MPHR: 152 METS: STRESS DATA: Heart rate 69, pressure is 132/76 mmHg. Baseline EKG showed sinus mechanism with ST changes in the anteroseptal leads. 0.4 mg of Lexiscan given over 15 seconds per protocol. Max heart rate was 88 beats per minute and maximum pressure was 124/73 mmHg. Clinically, the patient developed some epigastric discomfort and the EKG showed slight worsening of the baseline EKG changes. CONCLUSION: 1. Nondiagnostic electrocardiogram stress testing in response to Lexiscan. 2. Please follow up on the Cardiolite portion on a separate report from Radiology report. MMODL / IJN: [id number] /
--- NOTE | 2020-03-07 14:38 | XR ---
EXAMINATION TYPE: XR chest 2V DATE OF EXAM: 03/07/2020 COMPARISON: Prior chest x-ray 03/06/2020, CT 07/02/2019 HISTORY: Difficulty breathing TECHNIQUE: Frontal and lateral views of the chest are obtained. FINDINGS: There are prominent lung volumes with flattening the hemidiaphragms, increased AP diameter chest. Aorta is dense. Vertebral plasty change noted at the midthoracic vertebral body level. Interst itium is increased. Sixth rib shows remote old fracture on the right, possible nonunion. There is no focal air space opacity, pleural effusion, or pneumothorax seen. Some minimal basilar scarring presen t in the right middle and lower lobe. Prominence of pulmonary artery may be indicative of pulmonary a rtery hypertension. The cardiac silhouette size is within normal limits. There is a hiatal hernia wi th partial intrathoracic stomach. IMPRESSION: No acute cardiopulmonary process. Emphysema and COPD.
--- NOTE | 2020-03-07 15:37 | P.CNPUL ---
History of Present Illness Consult date: 03/07/20 Reason for consult: COPD History of present illness: This is a 69-year-old male patient was known to me for his COPD which is severe and the patient is an FEV1 of 34% of predicted. The patient is not action dependent. Has been maintained on a cruise and he hasn't been able to continue the Symbicort because of cost and the high ambrocio. He has a previous hospitalizations for pneumonia and his last hospitalization was in July 2019. The time in the right upper lobe pneumonia and acute COPD exacerbation and acute hypoxic respiratory failure. He ultimately improved. During the same hospitalization had increase in his troponin levels that was attributed to his pneumonia. The patient came in yesterday to the emergency department comp laining of worsening shortness of breath and at the same time the patient was having some nonspecific chest pain across his chest which he attributes to be related to his dyspnea. He had a cough and congestion. No reported fever. No pleurisy. No hemoptysis. The pain across his chest was more of a burning sensation. Note that the patient has had a cardiac catheterization back in February 2017 and the patient had a mild triple-vessel disease with a 20-30% lesion and circumflex and 20% lesion and RCA. His EKG revealed T-wave inversion V1 through V3 similar to his previous EKG. Chest x-ray showed neck abnormalities. CT angios gram showed no embolism. There was a small right- sided pleural effusion compared to previous examination. His troponins times has been negative. Creatinine is at 0.6. White cell count is at 2.5. His potassium level is at 5.3. He has no specific complaints for now. His previous echo cardiac exam showed a preserved LV function with an ejection fraction of 55%. Review of Systems Comprehensive General Adult ROS Reported by Patient Constitutional Constitutional: (fatigue and weakness) Eyes Eyes: no dry eyes, no vision change, no irritation ENMT Ears: no difficulty hearing, no ear pain Nose: no frequent nosebleeds, no nose problems, no sinus problems Mouth/Throat: no sore throat, no bleeding gums, no snoring, no dry mouth, no mouth ulcers, no oral abnormalities, no teeth problems Cardiovascular Cardiovascular: no chest pain, no arm pain on exertion, no shortness of breath when walking, no shortness of breath when lying down, no palpitations, no known heart murmur Respiratory Respiratory: cough, wheezing, shortness of breath Gastrointestinal Gastrointestinal: no abdominal pain, no nausea, no vomiting, no constipation, normal appetite, no diarrhea, not vomiting blood, no dyspepsia, no GERD Genitourinary Genitourinary: no incontinence, no difficulty urinating, no hematuria, no increased frequency Musculoskeletal Musculoskeletal: arthralgias/joint pain Integumentary Skin: (recurring skin rash) Neurologic Neurologic: no loss of consciousness, no weakness, no numbness, no seizures, no dizziness, no migraines, no headaches, no tremor Psychiatric Psych: no depression, no sleep disturbances, feeling safe in a relationship, no alcohol abuse, no anxiety, no hallucinations, no suicidal thoughts Endocrine Endocrine: no fatigue Hematologic/Lymphatic Hematologic/Lymphatic no swollen glands, no bruising, no excessive bleeding Allergic/Immunologic Allergy/Immunologic: no runny nose, no sinus pressure, no itching, no hives, no frequent sneezing Screening Past Medical History Past Medical History: Coronary Artery Disease (CAD), COPD, GERD/Reflux, Hearing Disorder / Deafness, Hyperlipidemia, Hypertension, Pneumonia, Vascular Disorder Additional Past Medical History / Comment(s): Severe COPD, history of autoimmune disease had work up by Dr. Goins and [facility]-never received specifics about the disease type, aortic aneurysm with repair, thoracolumbar pain/T4 fracture with recent surgery, current nephrolithiasis-has passed stones on his own in the past, bilateral leg cramps, left eardrum perforation/[place]AG[place]AY History of Any Multi-Drug Resistant Organisms: None Reported Past Surgical History: Appendectomy, Back Surgery, Ear Surgery, Heart Catheterization, Hernia Repair Additional Past Surgical History / Comment(s): 06/29/19 T4 kyphoplasty, Endovascular stent grafting of a abdominal aortic aneurysm. Facial reconstructive surgery. L ear surgery-myringotomy. Umbilical hernia. Colonoscopy-benign polypectomy. R cataract removed with lens. L eye had glass removed and lens placed. Past Anesthesia/Blood Transfusion Reactions: No Reported Reaction Additional Past Anesthesia/Blood Transfusion Reaction / Comment(s): Pt has never recieved blood. Past Psychological History: No Psychological Hx Reported Additional Psychological History / Comment(s): Pt resides with his spouse. 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 Pt uses no assistive device. He drives. Smoking Status: Current every day smoker Past Alcohol Use History: Occasional Additional Past Alcohol Use History / Comment(s): Pt started smoking in 1961. Pt states he is down to 2cigarettes a day, from 2ppd and has not soked at all in past 2 days. Past Drug Use History: None Reported - Past Family History Brother(s) Family Medical History: Cancer Additional Family Medical History / Comment(s): Brother of lung cancer at the age of 42 yrs. He was a smoker. Sister(s) Family Medical History: Cancer Additional Family Medical History / Comment(s): Sister of lung cancer. She was a smoker. Father Family Medical History: Myocardial Infarction ([place]) Additional Family Medical History / Comment(s): Father at age 75 yrs of a [place] Mother Family Medical History: Cancer Additional Family Medical History / Comment(s): Mother of metastatic cancer (unknown primary) at age 42 yrs. Medications and Allergies Home Medications Medication Instructions Recorded Confirmed Type Atorvastatin [Lipitor] 80 mg PO HS 05/04/18 03/06/20 History Metoprolol Succinate (ER) [Toprol 100 mg PO DAILY 05/04/18 03/06/20 History XL] Umeclidinium [place] [Incruse 2 puff INHALATION RT-DAILY 03/04/19 03/06/20 History Ellipta] lisinopriL [Zestril] 20 mg PO BID 03/04/19 03/06/20 History amLODIPine [Norvasc] 5 mg PO QAM 06/25/19 03/06/20 History Albuterol Nebulized [Ventolin 2.5 mg INHALATION QID PRN 03/06/20 03/06/20 History Nebulized] Albuterol Sulfate [Ventolin HFA] 2 puff INHALATION RT-QID 03/06/20 03/06/20 History SILVER sulfADIAZINE CREAM 1 applic TOPICAL BID 03/06/20 03/06/20 History [Silvadene Cream] Allergies Allergy/AdvReac Type Severity Reaction Status Date / Time Penicillins Allergy Rash/Hives Verified 03/06/20 21:14 Physical Exam Vitals: Vital Signs Temp Pulse Pulse Resp BP BP Pulse Ox 03/07/20 15:18 97.2 F L 76 20 128/73 90 L 03/07/20 14:57 74 03/07/20 14:44 72 03/07/20 13:45 69 18 116/67 92 L 03/07/20 13:30 70 18 117/70 91 L 03/07/20 13:15 74 16 113/67 90 L 03/07/20 13:00 81 20 115/71 88 L 03/07/20 11:41 65 20 03/07/20 11:03 97 F L 80 20 138/80 90 L 03/07/20 08:50 74 03/07/20 08:39 70 03/07/20 08:38 70 03/07/20 08:28 70 03/07/20 08:00 65 22 122/75 97 03/07/20 04:00 97.2 F L 63 18 114/60 93 L 03/07/20 00:00 78 18 134/78 97 03/06/20 21:56 98.3 F 65 18 132/80 96 03/06/20 21:43 95 03/06/20 21:41 98.2 F 70 20 122/66 93 L 03/06/20 21:30 98.2 F 67 20 138/84 93 L 03/06/20 21:00 68 16 133/75 95 03/06/20 20:49 71 20 133/75 96 03/06/20 20:30 150/89 03/06/20 20:24 68 03/06/20 20:18 68 03/06/20 20:10 69 03/06/20 20:00 67 29 H 136/88 93 L 03/06/20 19:30 69 25 H 131/86 92 L 03/06/20 19:00 64 24 122/77 94 L 03/06/20 18:30 70 29 H 120/73 94 L 03/06/20 18:01 68 30 H 120/73 93 L 03/06/20 17:50 77 03/06/20 17:43 74 03/06/20 16:35 98.5 F 76 74 H 157/94 96 Intake and Output 03/07/20 03/07/20 03/07/20 06:59 14:59 22:59 Intake Total 500 Output Total 300 Balance -300 500 Intake: Oral 500 Output: Urine 300 Other: Voiding Method Toilet Urinal Urinal # Voids 1 Weight 78.5 kg 78.5 kg General Appearance no diaphoresis, no respiratory distress, speech not interrupted by breaths, no dyspnea, no pallor, not cachectic, well nourished, appears well HEENT no pursed lip breathing, no jugular venous distention, no mucous membrane cyanosis, no perioral cyanosis, mallampati classification: class 1 Chest no barrel chest, no retractions, no sternocleidomastoid muscle contractions, no supraclavicular retractions, no intercostal retractions, no de creased air movement, no rhonchi, no hyperinflation, prolonged expiratory wheezing, decreased air movement Heart no right ventricular heave, no distant heart sounds, no s3 gallop GI bowel sounds: hyperactive (borborygmi), bowel sounds: diminished or absent Extremities no cyanosis, no clubbing, no edema Neurologic no decreased mental status, no somnolence, no confusion Examination of the skin revealed no evidence of significant rashes, suspicious appearing nevi or other concerning lesions. Results - Laboratory Findings CBC and BMP: 03/07/20 06:34 03/07/20 07:31 PT/INR, D-dimer PT 11.1 sec (9.0-12.0) 03/06/20 17:13 INR 1.1 (<1.2) 03/06/20 17:13 D-Dimer 0.92 mg/L FEU (<0.60) H 03/06/20 19:40 Abnormal lab findings: Abnormal Labs 03/06/20 03/06/20 03/06/20 17:13 17:13 17:13 WBC Plt Count 112 L Lymphocytes # 0.9 L APTT 20.4 L D-Dimer Sodium 136 L Potassium 5.9 H Carbon Dioxide 35 H Creatinine 0.54 L Glucose POC Glucose (mg/dL) Calcium 8.3 L 03/06/20 03/06/20 03/06/20 17:13 19:40 19:43 WBC Plt Count Lymphocytes # APTT D-Dimer 13.78 H 0.92 H Sodium Potassium 5.3 H Carbon Dioxide Creatinine Glucose POC Glucose (mg/dL) Calcium 03/06/20 03/07/20 03/07/20 22:44 06:01 06:34 WBC 2.5 L Plt Count 141 L Lymphocytes # 0.2 L APTT D-Dimer Sodium Potassium Carbon Dioxide Creatinine Glucose POC Glucose (mg/dL) 128 H 132 H Calcium 03/07/20 03/07/20 07:31 12:59 WBC Plt Count Lymphocytes # APTT D-Dimer Sodium 136 L Potassium 5.3 H Carbon Dioxide 36 H Creatinine 0.56 L Glucose 150 H POC Glucose (mg/dL) 126 H Calcium 8.3 L - Diagnostic Findings Chest x-ray: image reviewed CT scan - chest: image reviewed Assessment and Plan Plan: 1 acute exacerbation of COPD with secondary shortness of breath. Chest x-ray and a CT angios gram of the chest shows no acute abnormalities.. The patient has severe COPD at baseline with an FEV1 of 34% of predicted. He has had multiple hospitalizations the past for pneumonia. 2, chest pain, nonspecific, negative troponins, no significant EKG changes, cardiology is on the case 3 mild nonocclusive coronary artery disease based on the previous cardiac catheterization was in 2017 4 abdominal aortic aneurysm monitored on outpatient basis 5 hypertension 6 hyperlipidemia 7 autoimmune disease and the patient has been followed up by Dr. Goins on outpatient basis in this regard. He has also seen a fire patroller out of [facility] and there is no clear indication of dermatomyositis. 8 smoker Plan We'll see this patient for his acute COPD exacerbation with accommodation bronchodilators and steroids. We'll put them on 60 mg of IV Solu Medrol every 6 hours Repeat echocardiogram knowing that his medical manager echocardiac Terry at shown a preserved LV function Cardiology consultation Possible cardiac stress test, Lexiscan to assess for any reversible ischemia Smoking cessation counseling BiPAP if needed for a support Nicotine patch We'll continue to follow
[2020-03-07] MEDS ORDERED: ALBUTEROL NEBULIZED 2.5 MG/3 ML INHALATION PRN (15:40)
[2020-03-07] MEDS ORDERED: ALBUTEROL HFA INHALER INHALATION SCH (16:00)
[2020-03-07 17:42] LABS: Glucose,Whole Blood 190 mg/dL (75-99)
[2020-03-07] MEDS: METOPROLOL SUCCINATE (ER) 100 MG TAB.ER.24H PO SCH (17:57)
[2020-03-07] MEDS: amLODIPine 5 MG TAB PO SCH (17:58)
[2020-03-07] MEDS: AZITHROMYCIN 500 MG in SODIUM CHLORIDE 0.9% 250 ML IVPB SCH (17:58)
[2020-03-07] MEDS: SODIUM CHLORIDE 0.9% 1,000 ML IV SCH (20:23)
[2020-03-07] MEDS: ATORVASTATIN 80 MG TAB PO SCH (20:23)
[2020-03-07 20:38] LABS: Glucose,Whole Blood 141 mg/dL (75-99)
[2020-03-07] MEDS: lisinopriL 20 MG TAB PO SCH (21:13)
[2020-03-08 06:07] LABS: Glucose,Whole Blood 126 mg/dL (75-99)
[2020-03-08] MEDS: methylPREDNISolone SOD SUCCI 125 MG/2 ML VIAL IV SCH ×4 (06:38→23:02)
[2020-03-08] MEDS: PANTOPRAZOLE 40 MG TABLET PO SCH (06:38)
[2020-03-08] MEDS: INSULIN ASPART (NovoLOG) 100 UNIT/ML VIAL SQ SCH ×4 (06:39→22:43)
[2020-03-08 07:20] LABS: Basophils % (A) 0 %; Eosinophils % (A) 0 %; HCT 45.1 % (39.0-53.0); HGB 14.2 gm/dL (13.0-17.5); Lymphocytes # (A) 0.4 k/uL (1.0-4.8); Lymphocytes % (A) 5 %; MCH 28.4 pg (25.0-35.0); MCHC 31.6 g/dL (31.0-37.0); MCV 89.9 fL (80.0-100.0); Mean Platelet Volume 7.1; Monocytes # (A) 0.3 k/uL (0-1.0); Monocytes % (A) 4 %; Neutrophils # (A) 7.9 k/uL (1.3-7.7); Neutrophils % (A) 91 %; Platelet Count 219 k/uL (150-450); RBC 5.01 m/uL (4.30-5.90); RDW 14.3 % (11.5-15.5); WBC 8.7 k/uL (3.8-10.6)
[2020-03-08 07:38] LABS: African American GFR (CKD) >90 (>60 ml/min/1.73 sqM); Anion Gap 0 mmol/L; Blood Urea Nitrogen 26 mg/dL (9-20); Carbon Dioxide 39 mmol/L (22-30); Chloride 95 mmol/L (98-107); Glucose 132 mg/dL (74-99); Non-African American GFR(CKD) >90 (>60 ml/min/1.73 sqM); Sodium 134 mmol/L (137-145)
[2020-03-08] MEDS ORDERED: NON FORMULARY DRUG (Umeclidinium Bromide [Incruse Ellipta] 62.5 MCG Blst.W.Dev) INHALATION SCH (08:00)
[2020-03-08] MEDS: IPRATROPIUM-ALBUTEROL 3 ML NEB INHALATION SCH ×4 (08:20→20:41)
[2020-03-08] MEDS: BUDESONIDE 1 MG/2 ML NEBU INHALATION SCH ×2 (08:20→20:41)
[2020-03-08] MEDS: FORMOTEROL FUMARATE 20 MCG/2 ML NEBU INHALATION SCH ×2 (08:20→20:41)
[2020-03-08] MEDS: amLODIPine 5 MG TAB PO SCH (08:44)
[2020-03-08] MEDS: lisinopriL 20 MG TAB PO SCH ×2 (08:44→22:44)
[2020-03-08] MEDS: HEPARIN SODIUM,PORCINE 5,000 UNIT/ML 1 ML VIAL SQ SCH ×2 (08:45→22:44)
[2020-03-08] MEDS: NICOTINE 14MG/24HR PATCH TRANSDERM SCH (08:45)
[2020-03-08 11:47] LABS: Glucose,Whole Blood 155 mg/dL (75-99)
[2020-03-08] MEDS: MULTIVITAMINS, THERA 1 EACH TAB PO SCH (12:00)
--- NOTE | 2020-03-08 13:08 | P.PN ---
Subjective Progress Note Date: 03/08/20 CHIEF COMPLAINT: Elevated troponin HISTORY OF PRESENT ILLNESS: Patient examined this morning at the bedside. Patient currently denies chest pain. He reports mild shortness of breath but states it has improved since yesterday. He has been evaluated by pulmonary and is receiving IV steroids. He denies any further episodes of dizziness. Orthostatic blood pressures negative. Patient underwent Lexiscan stress test yesterday revealing fixed defect inferior wall and cardiac apex. No evidence for stress induced ischemia. Echocardiogram reveals ejection fraction between 55 and 60%, trace mitral regurgitation and trace tricuspid regurgitation. PHYSICAL EXAM: VITAL SIGNS: Reviewed. GENERAL: Well-developed in no acute distress. HEENT: Head is normocephalic. Pupils are equal, round. Sclerae anicteric. Mucous membranes of the mouth are moist. Neck supple. No JVD or thyromegaly LUNGS: Respirations even and unlabored. Lungs diminished. HEART: Regular rate and rhythm. S1 and S2 heard. ABDOMEN: Soft. Nondistended. Nontender. EXTREMITIES: Normal range of motion. No clubbing or cyanosis. Peripheral pulses intact. No lower extremity edema NEUROLOGIC: Awake and alert. Oriented x 3. ASSESSMENT: Chest pain, acute coronary syndrome ruled out Dizziness Nonobstructive coronary artery disease COPD Hypertension Hyperlipidemia Nicotine dependence PLAN: Continue current cardiac medications Patient is stable for discharge from a cardiac perspective. Patient to follow up outpatient with Dr. Jack We will sign off. Please reconsult if needed. Nurse practitioner note has been reviewed by physician. Signing provider agrees with the documented findings, assessment, and plan of care. Objective - Vital Signs Vital signs: Vital Signs Temp 97.8 F 03/08/20 11:58 Pulse 58 L 03/08/20 11:58 Resp 16 03/08/20 11:58 BP 102/62 03/08/20 11:58 Pulse Ox 92 L 03/08/20 11:58 Intake & Output 03/07/20 03/08/20 03/08/20 18:59 06:59 18:59 Intake Total 980 240 Output Total 300 Balance 680 240 Weight 78.5 kg 78 kg Intake: Oral 980 240 Output: Urine 300 Other: Voiding Method Urinal Urinal Urinal # Voids 1 - Labs CBC & Chem 7: 03/08/20 06:26 03/08/20 06:26 Labs: Abnormal Lab Results - Last 24 Hours (Table) 03/07/20 03/07/20 03/07/20 Range/Units 12:59 17:08 20:36 Neutrophils # (1.3-7.7) k/uL Lymphocytes # (1.0-4.8) k/uL Sodium (137-145) mmol/L Chloride (98-107) mmol/L Carbon Dioxide (22-30) mmol/L BUN (9-20) mg/dL Creatinine (0.66-1.25) mg/dL Glucose (74-99) mg/dL POC Glucose (mg/dL) 126 H 190 H 141 H (75-99) mg/dL Calcium (8.4-10.2) mg/dL 03/08/20 03/08/20 03/08/20 Range/Units 06:05 06:26 06:26 Neutrophils # 7.9 H (1.3-7.7) k/uL Lymphocytes # 0.4 L (1.0-4.8) k/uL Sodium 134 L (137-145) mmol/L Chloride 95 L (98-107) mmol/L Carbon Dioxide 39 H (22-30) mmol/L BUN 26 H (9-20) mg/dL Creatinine 0.64 L (0.66-1.25) mg/dL Glucose 132 H (74-99) mg/dL POC Glucose (mg/dL) 126 H (75-99) mg/dL Calcium 8.0 L (8.4-10.2) mg/dL 03/08/20 Range/Units 11:45 Neutrophils # (1.3-7.7) k/uL Lymphocytes # (1.0-4.8) k/uL Sodium (137-145) mmol/L Chloride (98-107) mmol/L Carbon Dioxide (22-30) mmol/L BUN (9-20) mg/dL Creatinine (0.66-1.25) mg/dL Glucose (74-99) mg/dL POC Glucose (mg/dL) 155 H (75-99) mg/dL Calcium (8.4-10.2) mg/dL Microbiology - Last 24 Hours (Table) 03/06/20 19:35 Blood Culture - Preliminary Blood No Growth after 24 hours
--- NOTE | 2020-03-08 13:30 | P.PN ---
Subjective Progress Note Date: 03/08/20 This is a 69-year-old male patient was known to me for his COPD which is severe and the patient is an FEV1 of 34% of predicted. The patient is not action dependent. Has been maintained on a cruise and he hasn't been able to continue the Symbicort because of cost and the high ambrocio. He has a previous h ospitalizations for pneumonia and his last hospitalization was in July 2019. The time in the right upper lobe pneumonia and acute COPD exacerbation and acute hypoxic respiratory failure. He ultimately improved. During the same hospitalization had increase in his troponin levels that was attributed to his pneumonia. The patient came in yesterday to the emergency department complaining of worsening shortness of breath and at the same time the patient was having some nonspecific chest pain across his chest which he attributes to be related to his dyspnea. He had a cough and congestion. No reported fever. No pleurisy. No hemoptysis. The pain across his chest was more of a burning se nsation. Note that the patient has had a cardiac catheterization back in February 2017 and the patient had a mild triple-vessel disease with a 20-30% lesion and circumflex and 20% lesion and RCA. His EKG revealed T-wave inversion V1 through V3 similar to his previous EKG. Chest x-ray showed neck abnormalities. CT angios gram showed no embolism. There was a small right- sided pleural effusion compared to previous examination. His troponins times has been negative. Creatinine is at 0.6. White cell count is at 2.5. His potassium level is at 5.3. He has no specific complaints for now. His previous echo cardiac exam showed a preserved LV function with an ejection fraction of 55%. On 03/08/2020, the patient is still bronchus spastic and wheezy. On examination he has diminished breath sounds bilaterally. He is receiving a combination of DuoNeb nebulized treatment [id number] on IV Solu-Medrol. The patient underwent a cardiac stress test yesterday and the patient had a Lexiscan and the patient a preserved LV function with an ejection fraction of 55%. There was a fixed defect in the inferior wall. There was no evidence of any reversible ischemia. The patient is currently on no anticoagulation. The patient is currently receiving normal saline at the rate of 20 mL an hour. IV Solu Medrol 60 mg every 6 hours. A combination of Rocephin and Zithromax which is an emp iric antibiotic coverage. Outpatient medications have been ordered resume. He is able to speak of. This is. Feels slightly better compared to yesterday. Objective - Vital Signs Vital signs: Vital Signs Temp 97.8 F 03/08/20 11:58 Pulse 58 L 03/08/20 11:58 Resp 16 03/08/20 11:58 BP 102/62 03/08/20 11:58 Pulse Ox 92 L 03/08/20 11:58 Intake & Output 03/07/20 03/08/20 03/08/20 18:59 06:59 18:59 Intake Total 980 240 Output Total 300 Balance 680 240 Weight 78.5 kg 78 kg Intake: Oral 980 240 Output: Urine 300 Other: Voiding Method Urinal Urinal Urinal # Voids 1 - Exam General Appearance no diaphoresis, no respiratory distress, speech not interrupted by breaths, no dyspnea, no pallor, not cachectic, well nourished, appears well HEENT no pursed lip breathing, no jugular venous distention, no mucous membrane cyanosis, no perioral cyanosis, mallampati classification: class 1 Chest no barrel chest, no retractions, no sternocleidomastoid muscle contractions, no supraclavicular retractions, no intercostal retractions, no decreased air movement, no rhonchi, no hyperinflation, prolonged expiratory wheezing, decreased air movement Heart no right ventricular heave, no distant heart sounds, no s3 gallop GI bowel sounds: hyperactive (borborygmi), bowel sounds: diminished or absent Extremities no cyanosis, no clubbing, no edema Neurologic no decreased mental status, no somnolence, no confusion Examination of the skin revealed no evidence of significant rashes, suspicious appearing nevi or other concerning lesions. - Labs CBC & Chem 7: 03/08/20 06:26 03/08/20 06:26 Labs: Abnormal Lab Results - Last 24 Hours (Table) 03/07/20 03/07/20 03/08/20 Range/Units 17:08 20:36 06:05 Neutrophils # (1.3-7.7) k/uL Lymphocytes # (1.0-4.8) k/uL Sodium (137-145) mmol/L Chloride (98-107) mmol/L Carbon Dioxide (22-30) mmol/L BUN (9-20) mg/dL Creatinine (0.66-1.25) mg/dL Glucose (74-99) mg/dL POC Glucose (mg/dL) 190 H 141 H 126 H (75-99) mg/dL Calcium (8.4-10.2) mg/dL 03/08/20 03/08/20 03/08/20 Range/Units 06:26 06:26 11:45 Neutrophils # 7.9 H (1.3-7.7) k/uL Lymphocytes # 0.4 L (1.0-4.8) k/uL Sodium 134 L (137-145) mmol/L Chloride 95 L (98-107) mmol/L Carbon Dioxide 39 H (22-30) mmol/L BUN 26 H (9-20) mg/dL Creatinine 0.64 L (0.66-1.25) mg/dL Glucose 132 H (74-99) mg/dL POC Glucose (mg/dL) 155 H (75-99) mg/dL Calcium 8.0 L (8.4-10.2) mg/dL Microbiology - Last 24 Hours (Table) 03/06/20 19:35 Blood Culture - Preliminary Blood No Growth after 24 hours Assessment and Plan Plan: 1 acute exacerbation of COPD with secondary shortness of breath. Chest x-ray and a CT angios gram of the chest shows no acute abnormalities.. The patient has severe COPD at baseline with an FEV1 of 34% of predicted. He has had multiple hospitalizations the past for pneumonia. 2, chest pain, nonspecific, negative troponins, no significant EKG changes, cardiology is on the case 3 mild nonocclusive coronary artery disease based on the previous cardiac catheterization was in 2017 4 abdominal aortic aneurysm monitored on outpatient basis 5 hypertension 6 hyperlipidemia 7 autoimmune disease and the patient has been followed up by Dr. Goins on outpatient basis in this regard. He has also seen a motor assembler out of [facility] and there is no clear indication of dermatomyositis. 8 smoker Plan Cardiac stress test showed no evidence of any reversible ischemia. There was a fixed defect in the inferior wall with a preserved LV function. The patient is typical for an acute COPD exacerbation the patient will be continued to be treated for the same. We'll see this patient for his acute COPD exacerbation with combination bronchodilators, steroids and empiric antibiotic coverage. Smoking cessation counseling BiPAP if needed for a support Nicotine patch We'll continue to follow, not ready for discharge at
--- NOTE | 2020-03-08 14:04 | P.PN ---
Subjective Progress Note Date: 03/08/20 This is a 69-year-old gentleman admitted with acute COPD exacerbation, atypical chest pain, hypertension and multiple other medical issues. Yesterday he underwent Lexiscan stress test reporting fixed defects cardiac apex and inferior wall, no evidence for stress-induced ischemia, normal LV function, EF 53%. Reports breathing better. Maintained on [id number] Solu-Medrol, nebulized bronchodilators, IV antibiotics. Maintaining O2 sats in the low 90s on 3 L nasal cannula. Negative for orthostatic hypotension. Denies chest pain, palpitations. Afebrile, BUN up to 26, creatinine 0.64. Objective - Vital Signs Vital signs: Vital Signs Temp 97.8 F 03/08/20 11:58 Pulse 58 L 03/08/20 11:58 Resp 16 03/08/20 11:58 BP 102/62 03/08/20 11:58 Pulse Ox 92 L 03/08/20 11:58 Intake & Output 03/07/20 03/08/20 03/08/20 18:59 06:59 18:59 Intake Total 980 240 Output Total 300 Balance 680 240 Weight 78.5 kg 78 kg Intake: Oral 980 240 Output: Urine 300 Other: Voiding Method Urinal Urinal Urinal # Voids 1 - Exam PHYSICAL EXAM: VITAL SIGNS: As above GENERAL: Sitting up in bed, no acute distress HEENT: Conjunctivae normal. eyes normal. Oral mucosa moist NECK: No JVD. No thyroid enlargement. CARDIOVASCULAR: S1, S2 regular. No murmur RESPIRATION: Breath sounds diminished in the bases. No rhonchi or crackles. No bronchial breathing. ABDOMEN: Soft, nontender . No guarding. no masses palpable.Bowel sounds heard. LEGS: No edema. no swelling PSYCHIATRY: Alert and oriented X3, mood and affect normal. NERVOUS SYSTEM: Cranial N 2-12 grossly normal. Moves all 4 limbs.No focal deficits. Strength and sensation grossly intact.. Skin: Warm and dry, no rash - Labs CBC & Chem 7: 03/08/20 06:26 03/08/20 06:26 Labs: Abnormal Lab Results - Last 24 Hours (Table) 03/07/20 03/07/20 03/07/20 Range/Units 12:59 17:08 20:36 Neutrophils # (1.3-7.7) k/uL Lymphocytes # (1.0-4.8) k/uL Sodium (137-145) mmol/L Chloride (98-107) mmol/L Carbon Dioxide (22-30) mmol/L BUN (9-20) mg/dL Creatinine (0.66-1.25) mg/dL Glucose (74-99) mg/dL POC Glucose (mg/dL) 126 H 190 H 141 H (75-99) mg/dL Calcium (8.4-10.2) mg/dL 03/08/20 03/08/20 03/08/20 Range/Units 06:05 06:26 06:26 Neutrophils # 7.9 H (1.3-7.7) k/uL Lymphocytes # 0.4 L (1.0-4.8) k/uL Sodium 134 L (137-145) mmol/L Chloride 95 L (98-107) mmol/L Carbon Dioxide 39 H (22-30) mmol/L BUN 26 H (9-20) mg/dL Creatinine 0.64 L (0.66-1.25) mg/dL Glucose 132 H (74-99) mg/dL POC Glucose (mg/dL) 126 H (75-99) mg/dL Calcium 8.0 L (8.4-10.2) mg/dL 03/08/20 Range/Units 11:45 Neutrophils # (1.3-7.7) k/uL Lymphocytes # (1.0-4.8) k/uL Sodium (137-145) mmol/L Chloride (98-107) mmol/L Carbon Dioxide (22-30) mmol/L BUN (9-20) mg/dL Creatinine (0.66-1.25) mg/dL Glucose (74-99) mg/dL POC Glucose (mg/dL) 155 H (75-99) mg/dL Calcium (8.4-10.2) mg/dL Microbiology - Last 24 Hours (Table) 03/06/20 19:35 Blood Culture - Preliminary Blood No Growth after 24 hours Assessment and Plan Assessment: Atypical chest pain, status post Lexiscan stress test no evidence for stress- induced ischemia, normal LV function, EF 53%. Acute COPD exacerbation in a patient with history of severe COPD Chronic hypoxic, hypercapnic respiratory failure CAD Hypertension Hyperlipidemia Ongoing nicotine dependence Autoimmune disease, follows with both Dr. Goins and Anil Lara plant physiology teacher OP Abdominal aortic aneurysm, further follow-up outpatient Plan: Continue on current medication regime ,monitoring and symptomatic treatment. Cleared by cardiology for discharge. Maintain nebulized bronchodilators, steroids, antibiotics. Discharge planning in progress for tomorrow pending pulmonary clearance. Smoking cessation reinforced. The impression and plan of care has been dictated as directed. : I performed a history and examination of this patient, discussed the same with the dictator. I agree with the dictator's note ,documented as a scribe. Any additional findings or plans will be noted.
[2020-03-08 16:32] LABS: Glucose,Whole Blood 161 mg/dL (75-99)
[2020-03-08] MEDS: AZITHROMYCIN 500 MG in SODIUM CHLORIDE 0.9% 250 ML IVPB SCH (19:03)
[2020-03-08 20:34] LABS: Glucose,Whole Blood 162 mg/dL (75-99)
[2020-03-08] MEDS: ATORVASTATIN 80 MG TAB PO SCH (22:44)
[2020-03-08] MEDS: SODIUM CHLORIDE 0.9% 1,000 ML IV SCH (23:01)
[2020-03-09 05:59] LABS: Glucose,Whole Blood 118 mg/dL (75-99)
[2020-03-09 06:44] LABS: Basophils % (A) 0 %; Eosinophils % (A) 0 %; HCT 47.1 % (39.0-53.0); HGB 14.6 gm/dL (13.0-17.5); Hypochromasia Slight; Lymphocytes # (A) 0.3 k/uL (1.0-4.8); Lymphocytes % (A) 3 %; MCH 28.2 pg (25.0-35.0); MCHC 30.9 g/dL (31.0-37.0); MCV 91.1 fL (80.0-100.0); Mean Platelet Volume 7.6; Monocytes # (A) 0.4 k/uL (0-1.0); Monocytes % (A) 4 %; Neutrophils # (A) 8.9 k/uL (1.3-7.7); Neutrophils % (A) 93 %; Platelet Count 233 k/uL (150-450); RBC 5.17 m/uL (4.30-5.90); RDW 14.4 % (11.5-15.5); WBC 9.6 k/uL (3.8-10.6)
[2020-03-09] MEDS: INSULIN ASPART (NovoLOG) 100 UNIT/ML VIAL SQ SCH (06:49)
[2020-03-09] MEDS: PANTOPRAZOLE 40 MG TABLET PO SCH (06:54)
[2020-03-09] MEDS: methylPREDNISolone SOD SUCCI 125 MG/2 ML VIAL IV SCH (06:54)
[2020-03-09 06:56] LABS: African American GFR (CKD) >90 (>60 ml/min/1.73 sqM); Anion Gap -1 mmol/L; Blood Urea Nitrogen 30 mg/dL (9-20); Calcium 8.1 mg/dL (8.4-10.2); Carbon Dioxide 38 mmol/L (22-30); Chloride 98 mmol/L (98-107); Glucose 120 mg/dL (74-99); Non-African American GFR(CKD) >90 (>60 ml/min/1.73 sqM); Potassium 5.1 mmol/L (3.5-5.1); Sodium 135 mmol/L (137-145)
[2020-03-09 08:01] VITALS: RESP 18
[2020-03-09] MEDS: METOPROLOL SUCCINATE (ER) 100 MG TAB.ER.24H PO SCH (08:02)
[2020-03-09] MEDS: lisinopriL 20 MG TAB PO SCH (08:03)
[2020-03-09] MEDS: amLODIPine 5 MG TAB PO SCH (08:03)
[2020-03-09] MEDS: NICOTINE 14MG/24HR PATCH TRANSDERM SCH (08:03)
[2020-03-09] MEDS: HEPARIN SODIUM,PORCINE 5,000 UNIT/ML 1 ML VIAL SQ SCH (08:03)
[2020-03-09] MEDS: FORMOTEROL FUMARATE 20 MCG/2 ML NEBU INHALATION SCH (08:19)
[2020-03-09] MEDS: BUDESONIDE 1 MG/2 ML NEBU INHALATION SCH (08:19)
[2020-03-09] MEDS: IPRATROPIUM-ALBUTEROL 3 ML NEB INHALATION SCH ×2 (08:19→12:04)
--- NOTE | 2020-03-09 10:58 | P.DS ---
Providers Date of admission: 03/08/20 11:06 Expected date of discharge: 03/09/20 Attending physician: Jamie Balderas Consults: 03/06/20 18:55 Consult Physician Routine Consulting Provider: Shan Price Consult Reason/Comments: copd Do you want consulting provider notified?: Yes 03/07/20 14:13 Consult Physician Urgent Consulting Provider: Lisa Gonzalez Consult Reason/Comments: BIANCA, COPD Do you want consulting provider notified?: Yes Primary care physician: Jamie Balderas Hospital Course: Final Diagnoses: Atypical chest pain, status post Lexiscan stress test no evidence for stress- induced ischemia, normal LV function, EF 53%. Acute COPD exacerbation in a patient with history of severe COPD Chronic hypoxic, hypercapnic respiratory failure CAD Hypertension Hyperlipidemia Ongoing nicotine dependence Autoimmune disease, follows with both Dr. Goins and Anil Lara turf sales person OP Abdominal aortic aneurysm, further follow-up outpatient Hospital course:This is a 69-year-old gentleman admitted with acute COPD exacerbation, atypical chest pain, hypertension and multiple other medical issues. Yesterday he underwent Lexiscan stress test reporting fixed defects car diac apex and inferior wall, no evidence for stress-induced ischemia, normal LV function, EF 53%. Reports breathing better. Maintained on [id number] Solu-Medrol, nebulized bronchodilators, IV antibiotics. Maintaining O2 sats in the low 90s on 3 L nasal cannula. Negative for orthostatic hypotension. Denies chest pain, palpitations. Afebrile, BUN up to 26, creatinine 0.64. Significant clinical improvement. Cleared by pulmonary for discharge. Patient is being discharged home today in a stable condition with guarded prognosis. The impression and plan of care has been dictated as directed. : I performed a history and examination of this patient, discussed the same with the dictator. I agree with the dictator's note ,documented as a scribe. Any additional findings or plans will be noted. Patient Condition at Discharge: Stable Plan - Discharge Summary Discharge Rx Participant: No New Discharge Prescriptions: New Cefuroxime Axetil [Ceftin] 500 mg PO BID 1 Days #8 tab Nicotine 14Mg/24Hr Patch [Habitrol] 1 patch TRANSDERM DAILY #30 patch predniSONE 10 mg PO DIRECTED #30 tab Pantoprazole [Protonix] 40 mg PO AC-BRKFST #30 tablet. Continue Atorvastatin [Lipitor] 80 mg PO HS Metoprolol Succinate (ER) [Toprol XL] 100 mg PO DAILY Umeclidinium Gervais [Incruse Ellipta] 2 puff INHALATION RT-DAILY lisinopriL [Zestril] 20 mg PO BID amLODIPine [Norvasc] 5 mg PO QAM SILVER sulfADIAZINE CREAM [Silvadene Cream] 1 applic TOPICAL BID Albuterol Nebulized [Ventolin Nebulized] 2.5 mg INHALATION QID PRN PRN Reason: Shortness Of Breath Albuterol Sulfate [Ventolin HFA] 2 puff INHALATION RT-QID Discharge Medication List Atorvastatin [Lipitor] 80 mg PO HS 05/04/18 [History] Metoprolol Succinate (ER) [Toprol XL] 100 mg PO DAILY 05/04/18 [History] Umeclidinium Gervais [Incruse Ellipta] 2 puff INHALATION RT-DAILY 03/04/19 [History] lisinopriL [Zestril] 20 mg PO BID 03/04/19 [History] amLODIPine [Norvasc] 5 mg PO QAM 06/25/19 [History] Albuterol Nebulized [Ventolin Nebulized] 2.5 mg INHALATION QID PRN 03/06/20 [History] Albuterol Sulfate [Ventolin HFA] 2 puff INHALATION RT-QID 03/06/20 [History] SILVER sulfADIAZINE CREAM [Silvadene Cream] 1 applic TOPICAL BID 03/06/20 [History] Cefuroxime Axetil [Ceftin] 500 mg PO BID 1 Days #8 tab 03/09/20 [Rx] Nicotine 14Mg/24Hr Patch [Habitrol] 1 patch TRANSDERM DAILY #30 patch 03/09/20 [Rx] Pantoprazole [Protonix] 40 mg PO AC-BRKFST #30 tablet. 03/09/20 [Rx] predniSONE 10 mg PO DIRECTED #30 tab 03/09/20 [Rx] Follow up Appointment(s)/Referral(s): Antony Jack MD [STAFF PHYSICIAN] - 1 Week Jamie Balderas DO [Primary Care Provider] - 3 Days
[2020-03-09 11:43] LABS: Glucose,Whole Blood 100 mg/dL (75-99)
[2020-03-09 11:46] VITALS: BP 130/67; TEMP 97.8
[2020-03-09] MEDS ORDERED: AZITHROMYCIN 500 MG TAB PO SCH (12:00)
[2020-03-09 12:08] VITALS: PULSE 64
--- NOTE | 2020-03-09 13:33 | P.PN ---
Subjective Progress Note Date: 03/09/20 Principal diagnosis: Acute exacerbation of COPD with secondary shortness of breath This is a 69-year-old male patient was known to me for his COPD which is severe and the patient is an FEV1 of 34% of predicted. The patient is not action dependent. Has been maintained on a cruise and he hasn't been able to continue the Symbicort because of cost and the high ambrocio. He has a previous hospitalizations for pneumonia and his last hospitalization was in July 2019. The time in the right upper lobe pneumonia and acute COPD exacerbation and acute hypoxic respiratory failure. He ultimately improved. During the same hospitalization had increase in his troponin levels that was attributed to his pneumonia. The patient came in yesterday to the emergency department complain ing of worsening shortness of breath and at the same time the patient was having some nonspecific chest pain across his chest which he attributes to be related to his dyspnea. He had a cough and congestion. No reported fever. No pleurisy. No hemoptysis. The pain across his chest was more of a burning sensation. Note that the patient has had a cardiac catheterization back in February 2017 and the patient had a mild triple-vessel disease with a 20-30% lesion and circumflex and 20% lesion and RCA. His EKG revealed T-wave inversion V1 through V3 similar to his previous EKG. Chest x-ray showed neck abnormalities. CT angios gram showed no embolism. There was a small right- sided pleural effusion compared to previous examination. His troponins times has been negative. Creatinine is at 0.6. White cell count is at 2.5. His potassium level is at 5.3. He has no specific complaints for now. His previous echo cardiac exam showed a preserved LV function with an ejection fraction of 5 5%. On 03/08/2020, the patient is still bronchus spastic and wheezy. On examination he has diminished breath sounds bilaterally. He is receiving a combination of DuoNeb nebulized treatment [id number] on IV Solu-Medrol. The patient underwent a cardiac stress test yesterday and the patient had a Lexiscan and the patient a preserved LV function with an ejection fraction of 55%. There was a fixed defect in the inferior wall. There was no evidence of any reversible ischemia. The patient is currently on no anticoagulation. The patient is currently receiving normal saline at the rate of 20 mL an hour. IV Solu Medrol 60 mg every 6 hours. A combination of Rocephin and Zithromax which is an empiric antibiotic coverage. Outpatient medications have been ordered resume. He is able to speak of. This is. Feels slightly better compared to yesterday. On 03/09/2020 patient seen in follow-up on selective care unit, he is breathing easier, less bronchospastic, he is on 3 L of oxygen pulse ox of 92%, vital signs have been stable, he has been afebrile, blood culture show no growth, no leukocytosis. Vital signs have been stable, increase activity as tolerated, patient thinks he is close to his baseline, and he can be considered for discharge home, with healed the patient tolerates his activity and will consider discharge home today if doing well. Objective - Vital Signs Vital signs: Vital Signs Temp 97.8 F 03/09/20 11:43 Pulse 64 03/09/20 12:16 Resp 18 03/09/20 11:43 BP 130/67 03/09/20 11:43 Pulse Ox 92 L 03/09/20 11:43 Intake & Output 03/08/20 03/09/20 03/09/20 18:59 06:59 18:59 Intake Total 720 240 340 Output Total 200 425 Balance 520 -185 340 Weight 78.6 kg Intake: Oral 720 240 340 Output: Urine 200 425 Other: Voiding Method Toilet Toilet Toilet Urinal Urinal Urinal - Exam GENERAL EXAM: Alert, very pleasant 3 L of oxygen, with a pulse ox of 92%, comfortable in no apparent distress. HEAD: Normocephalic/atraumatic. EYES: Normal reaction of pupils, equal size. Conjunctiva pink, sclera white. NOSE: Clear with pink turbinates. THROAT: No erythema or exudates. NECK: No masses, no JVD, no thyroid enlargement, no adenopathy. CHEST: No chest wall deformity. Symmetrical expansion. LUNGS: Equal air entry with no crackles, wheeze, rhonchi or dullness. CVS: Regular rate and rhythm, normal S1 and S2, no gallops, no murmurs, no rubs ABDOMEN: Soft, nontender. No hepatosplenomegaly, normal bowel sounds, no guarding or rigidity. EXTREMITIES: No clubbing, no edema, no cyanosis, 2+ pulses and upper and lower extremities. MUSCULOSKELETAL: Muscle strength and tone normal. SPINE: No scoliosis or deformity SKIN: No rashes CENTRAL NERVOUS SYSTEM: Alert and oriented -3. No focal deficits, tone is normal in all 4 extremities. PSYCHIATRIC: Alert and oriented -3. Appropriate affect. Intact judgment and insight. - Labs CBC & Chem 7: 03/09/20 06:09 03/09/20 06:09 Labs: Abnormal Lab Results - Last 24 Hours (Table) 03/08/20 03/08/20 03/09/20 Range/Units 16:31 20:33 05:58 MCHC (31.0-37.0) g/dL Neutrophils # (1.3-7.7) k/uL Lymphocytes # (1.0-4.8) k/uL Sodium (137-145) mmol/L Carbon Dioxide (22-30) mmol/L BUN (9-20) mg/dL Glucose (74-99) mg/dL POC Glucose (mg/dL) 161 H 162 H 118 H (75-99) mg/dL Calcium (8.4-10.2) mg/dL 03/09/20 03/09/20 03/09/20 Range/Units 06:09 06:09 11:41 MCHC 30.9 L (31.0-37.0) g/dL Neutrophils # 8.9 H (1.3-7.7) k/uL Lymphocytes # 0.3 L (1.0-4.8) k/uL Sodium 135 L (137-145) mmol/L Carbon Dioxide 38 H (22-30) mmol/L BUN 30 H (9-20) mg/dL Glucose 120 H (74-99) mg/dL POC Glucose (mg/dL) 100 H (75-99) mg/dL Calcium 8.1 L (8.4-10.2) mg/dL Microbiology - Last 24 Hours (Table) 03/06/20 19:35 Blood Culture - Preliminary Blood No Growth after 48 hours Assessment and Plan Plan: Assessment: 1 acute exacerbation of COPD with secondary shortness of breath. Chest x-ray an d a CT angios gram of the chest shows no acute abnormalities.. The patient has severe COPD at baseline with an FEV1 of 34% of predicted. He has had multiple hospitalizations the past for pneumonia. 2, chest pain, nonspecific, negative troponins, no significant EKG changes, cardiology is on the case 3 mild nonocclusive coronary artery disease based on the previous cardiac catheterization was in 2017 4 abdominal aortic aneurysm monitored on outpatient basis 5 hypertension 6 hyperlipidemia 7 autoimmune disease and the patient has been followed up by Dr. Goins on outpatient basis in this regard. He has also seen a asbestos siding installer out of [facility] and there is no clear indication of dermatomyositis. 8 smoker Plan: Patient is doing well, close to his baseline, less dyspneic, less bronchospastic, increase activity as tolerated, if doing well consider discharge planning with outpatient follow-up with Dr. Gonzalez in the office, he can resume his maintenance inhalers and breathing treatments, finish outpatient prednisone taper and antibiotics I performed a history & physical examination of the patient and discussed their management with my nurse practitioner, Mary Stewart. I reviewed the nurse practitioner's note and agree with the documented findings and plan of care. Lung sounds are positive for minimal wheezing. The findings and the impression was discussed with the patient. I attest to the documentation by the nurse practitioner.
== END 2020-03-09 12:33 | disposition home or self-care (01) | DRG 191 ==
LOC: EC 16:27 → 3SCARD 20:49 → OBSVTOIN 03-08 11:06
PROVIDERS: ADMIT Family Medicine; ATTEND Family Medicine
DX: J44.1 Chronic obstructive pulmonary disease with (acute) exacerbation (principal); J96.12 Chronic respiratory failure with hypercapnia; J96.11 Chronic respiratory failure with hypoxia; E87.1 Hypo-osmolality and hyponatremia; J90 Pleural effusion, not elsewhere classified; J44.0 Chronic obstructive pulmonary disease with (acute) lower respiratory infection; Z20.828 Contact with and (suspected) exposure to other viral communicable diseases; J20.9 Acute bronchitis, unspecified; F17.210 Nicotine dependence, cigarettes, uncomplicated; K21.9 Gastro-esophageal reflux disease without esophagitis; D69.6 Thrombocytopenia, unspecified; E78.5 Hyperlipidemia, unspecified; E87.5 Hyperkalemia; H91.90 Unspecified hearing loss, unspecified ear; I10 Essential (primary) hypertension; D89.89 Other specified disorders involving the immune mechanism, not elsewhere classified; I25.10 Atherosclerotic heart disease of native coronary artery without angina pectoris; N20.0 Calculus of kidney; I71.4 Abdominal aortic aneurysm, without rupture; Z79.899 Other long term (current) drug therapy; Z80.1 Family history of malignant neoplasm of trachea, bronchus and lung; Z82.49 Family history of ischemic heart disease and other diseases of the circulatory system; R07.89 Other chest pain; Z86.79 Personal history of other diseases of the circulatory system; M19.90 Unspecified osteoarthritis, unspecified site; R21 Rash and other nonspecific skin eruption; Z87.01 Personal history of pneumonia (recurrent); Z87.442 Personal history of urinary calculi; Z90.49 Acquired absence of other specified parts of digestive tract; Z88.0 Allergy status to penicillin; Z98.42 Cataract extraction status, left eye; Z98.41 Cataract extraction status, right eye; Z96.1 Presence of intraocular lens; Z86.010 Personal history of colon polyps; G47.62 Sleep related leg cramps
CPT/HCPCS: 36415; 71046; 71275; 78452; 80048; 80053; 83605; 84132; 84484; 85025; 85379; 85610; 85730; 87040; 93005; 93017; 93306; 94640; 94760; 96365; 96375; 99285

== ENCOUNTER → 2021-02-22 | Outpatient (CLI) | payer MEDICARE, OTHER ==
[2021-02-22 20:55] LABS: ALT 14 U/L (10-49); AST 17 U/L (14-35); African American GFR (CKD) 111.6 (60.0-200.0); Alkaline Phosphatase 70 U/L (41-126); Calcium 8.8 mg/dL (8.7-10.3); Carbon Dioxide 32.8 mmol/L (21.6-31.8); Chloride 98 mmol/L (96-109); Cholesterol 151 mg/dL (0-200); Globulin 2.6 g/dL (1.6-3.3); Glucose 81 mg/dL (70-110); Non-African American GFR(CKD) 96.3 (60.0-200.0); Potassium 5.2 mmol/L (3.5-5.5); Sodium 138 mmol/L (135-145); Total Bilirubin 0.6 mg/dL (0.2-1.2); Total Protein 6.5 g/dL (6.2-8.2); Triglycerides <50.0 mg/dL (0.0-149.0)
== END | disposition home or self-care (01) ==
LOC: LABWHC1 11:04
PROVIDERS: ATTEND Internal Medicine Interventional Cardiology
DX: E78.2 Mixed hyperlipidemia (principal)
CPT/HCPCS: 36415; 80053; 80061

== ENCOUNTER → 2022-01-08 | Outpatient (CLI) | payer MEDICARE, OTHER ==
--- NOTE | 2022-01-08 18:08 | CT ---
EXAMINATION TYPE: CT iac wo con CT DLP: 150 mGycm, Automated exposure control for dose reduction was used. DATE OF EXAM: 01/08/2022 10:05 AM INDICATION: Patient age:Male; 71 years old; Reason for study: H70.90 Mastoiditis, H91.90 hearing loss,; COMPARISON: CT brain 08/21/2010. TECHNIQUE: Multiple thin axial images were obtained through the temporal bones and internal auditory canals. Additional coronal reformatted images were obtained. No IV contrast was utilized. FINDINGS: Right Temporal Bone: External Ear: The external auditory canal is unremarkable, The tympanic membrane is present and unrem arkable. Middle Ear: The ossicles demonstrate a normal appearance. Prussak's space is clear and the scutum i s intact. There is no evidence of osseous erosion and the tegmen tympani is intact. Inner Ear: Cochlea, vestibule and semi circular canals are unremarkable. No evidence of carotid angie l dehiscence. Two and a half turns of the cochlea are identified. The vestibular aqueduct is not enl arged. Mastoid Air Cells: The mastoid air cells are clear. The tegmen mastoideum is intact. The aditus ad an trum is clear. Internal Auditory Canal: The internal auditory canal is unremarkable. Left Temporal Bone: External Ear: Debris demonstrated within the left external auditory canal which may represent cerumen , the tympanic membrane is not definitively visualized. Middle Ear: The ossicles demonstrate a normal appearance. There is opacification demonstrated withi n Prussak's space with blunting of the scutum. The tegmen tympani appears intact. Opacification of th e epitympanum, mesotympanum, and hypotympanum. Inner Ear: Cochlea, vestibule and semi circular canals are unremarkable. No evidence of carotid angie l dehiscence. Two and a half turns of the cochlea are identified. The vestibular aqueduct is not enl arged. Mastoid Air Cells: The mastoid air cells are opacified with erosive changes noted. The aditus ad antr um is opacified. Internal Auditory Canal: The internal auditory canal is unremarkable. Mild mucosal thickening in the right maxillary sinus. Hypoplastic left maxillary sinus with mucosal t hickening. Vascular sclerosis. The ocular lenses are surgically absent. IMPRESSION: 1. Left mastoid effusion with opacification of the middle ear and surrounding significant erosive audrey nges of the mastoid. There is blunting of the scutum with opacification of Prussak's space. Findings are most consistent with otomastoiditis. Superimposed cholesteatoma is not excluded. 2. The right internal auditory canal is unremarkable.
== END | disposition home or self-care (01) ==
LOC: RADCTMAIN 09:41
PROVIDERS: ATTEND Otolaryngology
DX: H90.A32 Mixed conductive and sensorineural hearing loss, unilateral, left ear with restricted hearing on the contralateral side (principal); H92.12 Otorrhea, left ear; H72.02 Central perforation of tympanic membrane, left ear; J34.89 Other specified disorders of nose and nasal sinuses
CPT/HCPCS: 70480

== ENCOUNTER → 2022-02-15 | Outpatient (CLI) | payer MEDICARE, OTHER | END | disposition home or self-care (01) | LOC: LABWHC1 14:20 | PROVIDERS: ATTEND Otolaryngology | DX: Z01.818 Encounter for other preprocedural examination (principal); Z01.812 Encounter for preprocedural laboratory examination; I10 Essential (primary) hypertension | CPT/HCPCS: 36415; 93005 ==

== ENCOUNTER → 2022-03-09 | Outpatient (CLI) | payer MEDICARE, OTHER ==
--- NOTE | 2022-03-10 02:50 | MR ---
EXAMINATION TYPE: MR neck wo/w con DATE OF EXAM: 03/09/2022 COMPARISON: CT scan 01/08/2022 HISTORY: Ear leakage, left hearing loss, cholesteatoma, prior surgery. CONTRAST: Standard multiplanar, multisequence MRI departmental protocol images were obtained without contrast a nd with 8 mL intravenous Gadavist gadolinium contrast. There is extensive abnormal increased signal on the T2 images involving the left temporal bone and th e mastoid air cells. There is also increased fluid signal in the middle ear region and the external a uditory canal. The internal auditory canals appear symmetric. There is no evidence of cerebellopontin e angle mass. The submandibular salivary glands are symmetric. Parotid glands appear intact. No evidence of any sig nificant cervical lymphadenopathy. There is some mild enhancement of the left mastoid sinus. There is normal enhancement of the venous sinuses at the skull base. 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 Evidence of otitis externa and interna. No change compared to old CT scan.
== END | disposition home or self-care (01) ==
LOC: RADMRIMAIN 16:49
PROVIDERS: ATTEND Otolaryngology
DX: D37.030 Neoplasm of uncertain behavior of the parotid salivary glands (principal); H70.12 Chronic mastoiditis, left ear
CPT/HCPCS: 70543; A9585

== ENCOUNTER → 2022-03-22 | Outpatient (CLI) | payer MEDICARE, OTHER ==
[2022-03-22 11:51] LABS: African American GFR (CKD) >90 (>60 ml/min/1.73 sqM); Blood Urea Nitrogen 20 mg/dL (9-20); Non-African American GFR(CKD) >90 (>60 ml/min/1.73 sqM)
--- NOTE | 2022-03-22 13:09 | CT ---
EXAMINATION TYPE: CT chest w con CT DLP: 361 mGycm, Automated exposure control for dose reduction was used. DATE OF EXAM: 03/22/2022 12:42 PM COMPARISON: CTA chest 03/06/2020. 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 Coronal and sagittal reformats reviewed. FINDINGS: LUNGS/ PLEURA: Biapical pleural-parenchymal scarring. No pneumothorax pleural effusion. Stable anter ior right upper lobe and medial right lower lobe scarring. Stable left upper lobe 5 mm nodular densit y (series 4, image 9). Additional smaller scattered nodular densities are stable. No new or enlarging pulmonary nodules. Centrilobular emphysematous changes. AIRWAY: Patent and unremarkable.. HEART: Mildly enlarged. No pericardial effusion. Coronary arterial calcifications. MEDIASTINUM: No gross evidence of adenopathy. VASCULATURE: No thoracic aortic aneurysm. Atherosclerotic calcification of the aorta. Dilated main p ulmonary artery measuring up to 3.4 cm which commonly seen with pulmonary arterial hypertension. Part ial visualization of abdominal aortic stent graft. MUSCULOSKELETAL: No acute osseous abnormalities. Vertebral augmentation of compression deformity invo lving the T6 vertebral body. SOFT TISSUES/LYMPH NODES: Unremarkable. LOWER NECK: No significant findings. UPPER ABDOMEN: Moderate sized hiatal hernia. Stable thickening of the left gland. Nonobstructive left renal calculi. Stable partially visualized left renal cyst. Stable splenic hypodense 1.9 cm lesion. IMPRESSION: 1. No evidence of metastasis or acute process. 2. Stable COPD and pulmonary fibrotic/scarring changes. 3. Dilated main pulmonary artery which is commonly seen with pulmonary arterial hypertension. 4. Moderate-sized hiatal hernia. 5. Nonobstructive left renal calculi.
== END | disposition home or self-care (01) ==
LOC: RADCTMAIN 11:10
PROVIDERS: ATTEND Internal Medicine Hematology & Oncology
DX: C32.9 Malignant neoplasm of larynx, unspecified (principal); K44.9 Diaphragmatic hernia without obstruction or gangrene; N20.0 Calculus of kidney; J44.9 Chronic obstructive pulmonary disease, unspecified
CPT/HCPCS: 82565; 84520; 71260; 36415; Q9967

== ENCOUNTER 2022-04-11 14:07 | Inpatient (IN) | payer MEDICARE, OTHER ==
[2022-04-11] MEDS ORDERED: methylPREDNISolone SOD SUCCI 125 MG/2 ML VIAL IV STA (14:37)
[2022-04-11] MEDS ORDERED: IPRATROPIUM 0.5 MG/2.5 ML NEBU INHALATION STA (14:37)
[2022-04-11] MEDS ORDERED: ALBUTEROL NEBULIZED 2.5 MG/3 ML INHALATION STA (14:37)
--- NOTE | 2022-04-11 15:07 | ED ---
General Adult HPI - General Chief complaint: Shortness of Breath Stated complaint: sob Time Seen by Provider: 04/11/22 14:10 Source: patient, EMS, RN notes reviewed, old records reviewed Mode of arrival: EMS Limitations: no limitations - History of Present Illness Initial comments: This is a 71-year-old male who presents emergency Department complaining of difficulty breathing. Patient has history of esophageal cancer and COPD. Patient states he continues to smoke. Patient states last few days is gotten significantly worse. Patient denies any fever chills states he has a dry cough. Patient denies any chest pain. Patient denies any lightheadedness or dizziness. Patient denies any headache patient denies numbness weakness. Patient denies abdominal pain patient denies nausea vomiting diarrhea. Patient denies any calf pain or leg swelling. - Related Data Home Medications Medication Instructions Recorded Confirmed Atorvastatin [Lipitor] 80 mg PO HS 05/04/18 03/06/20 Metoprolol Succinate (ER) [Toprol 100 mg PO DAILY 05/04/18 03/06/20 XL] Umeclidinium [place] [Incruse 2 puff INHALATION RT-DAILY 03/04/19 03/06/20 Ellipta] lisinopriL [Zestril] 20 mg PO BID 03/04/19 03/06/20 amLODIPine [Norvasc] 5 mg PO QAM 06/25/19 03/06/20 Albuterol Nebulized [Ventolin 2.5 mg INHALATION QID PRN 03/06/20 03/06/20 Nebulized] Albuterol Sulfate [Ventolin HFA] 2 puff INHALATION RT-QID 03/06/20 03/06/20 SILVER sulfADIAZINE CREAM 1 applic TOPICAL BID 03/06/20 03/06/20 [Silvadene Cream] Previous Rx's Medication Instructions Recorded Nicotine 14Mg/24Hr Patch [Habitrol] 1 patch TRANSDERM DAILY #30 patch 03/09/20 Pantoprazole [Protonix] 40 mg PO LEONID-BRKFST #30 tablet. 03/09/20 cefUROXime axetiL [Ceftin] 500 mg PO BID 1 Days #8 tab 03/09/20 predniSONE 10 mg PO DIRECTED #30 tab 03/09/20 Allergies Allergy/AdvReac Type Severity Reaction Status Date / Time Penicillins Allergy Rash/Hives Verified 04/11/22 14:20 Review of Systems ROS Statement: Those systems with pertinent positive or pertinent negative responses have been documented in the HPI. ROS Other: All systems not noted in ROS Statement are negative. Past Medical History Past Medical History: Coronary Artery Disease (CAD), COPD, GERD/Reflux, Hearing Disorder / Deafness, Hyperlipidemia, Hypertension, Pneumonia, Vascular Disorder Additional Past Medical History / Comment(s): Severe COPD, history of autoimmune disease had work up by Dr. Goins and [facility]-never received specifics about the disease type, aortic aneurysm with repair, thoracolumbar pain/T4 fracture with recent surgery, current nephrolithiasis-has passed stones on his own in the past, bilateral leg cramps, left eardrum perforation/[place] History of Any Multi-Drug Resistant Organisms: Other MDRO Past Surgical History: Appendectomy, Back Surgery, Ear Surgery, Heart Catheterization, Hernia Repair Additional Past Surgical History / Comment(s): 06/29/19 T4 kyphoplasty, Endov ascular stent grafting of a abdominal aortic aneurysm. Facial reconstructive surgery. L ear surgery-myringotomy. Umbilical hernia. Colonoscopy-benign polypectomy. R cataract removed with lens. L eye had glass removed and lens placed. Past Anesthesia/Blood Transfusion Reactions: No Reported Reaction Additional Past Anesthesia/Blood Transfusion Reaction / Comment(s): Pt has never recieved blood. Past Psychological History: No Psychological Hx Reported Smoking Status: Current every day smoker Past Alcohol Use History: Occasional Past Drug Use History: None Reported - Past Family History Brother(s) Family Medical History: Cancer Additional Family Medical History / Comment(s): Brother of lung cancer at the age of 42 yrs. He was a smoker. Sister(s) Family Medical History: Cancer Additional Family Medical History / Comment(s): Sister of lung cancer. She was a smoker. Father Family Medical History: Myocardial Infarction (MA) Additional Family Medical History / Comment(s): Father at age 75 yrs of a MA Mother Family Medical History: Cancer Additional Family Medical History / Comment(s): Mother of metastatic cancer (unknown primary) at age 42 yrs. General Exam - General Exam Comments Initial Comments: GENERAL: Patient is well-developed and well-nourished. Patient is nontoxic and well- hydrated and is in mild distress. ENT: Neck is soft and supple. No significant lymphadenopathy is noted. Oropharynx is clear. Moist mucous membranes. Neck has full range of motion without eliciting any pain. EYES: The sclera were anicteric and conjunctiva were pink and moist. Extraocular movements were intact and pupils were equal round and reactive to light. Eyelids were unremarkable. PULMONARY: Diffuse expiratory wheezing CARDIOVASCULAR: There is a regular rate and rhythm without any murmurs gallops or rubs. ABDOMEN: Soft and nontender with normal bowel sounds. SKIN: Skin is clear with no lesions or rashes and otherwise unremarkable. NEUROLOGIC: Patient is alert and oriented x3. Cranial nerves II through XII are grossly intact. Motor and sensory are also intact. Normal speech, volume and content. Symmetrical smile. MUSCULOSKELETAL: Normal extremities with adequate strength and full range of motion. No lower extremity swelling or edema. No calf tenderness. LYMPHATICS: No significant lymphadenopathy is noted PSYCHIATRIC: Normal psychiatric evaluation. Limitations: no limitations Course Vital Signs 04/11/22 04/11/22 04/11/22 14:10 14:20 14:56 Temperature 97.8 F Pulse Rate 88 74 Respiratory 24 22 22 Rate Blood Pressure 167/102 O2 Sat by Pulse 91 L Oximetry 04/11/22 15:10 Temperature Pulse Rate 75 Respiratory 22 Rate Blood Pressure O2 Sat by Pulse Oximetry Medical Decision Making - Medical Decision Making I interpret EKG. EKG shows sinus rhythm with frequent PVCs at 79 bpm IN inte rval 261 cardiac is 92 QT interval 44 QTC is 439 per patient's EKG shows no ST segment elevation. I interpreted the chest x-ray see no acute normalities. New. Patient received multiple albuterol treatments in the emergency department as well as steroids. Patient improved slightly but continued to wheeze diffusely. I spoke with Dr. Balderas he agreed to admit the patient admitted the patient wrote admitting orders I continued breathing treatments and steroids on the floor. - Lab Data Result diagrams: 04/11/22 14:40 04/11/22 14:40 Lab Results 04/11/22 04/11/22 04/11/22 Range/Units 14:40 14:40 14:40 WBC 7.3 (3.8-10.6) k/uL RBC 4.56 (4.30-5.90) m/uL Hgb 13.6 (13.0-17.5) gm/dL Hct 42.0 (39.0-53.0) % MCV 92.1 (80.0-100.0) fL MCH 29.8 (25.0-35.0) pg MCHC 32.4 (31.0-37.0) g/dL RDW 13.1 (11.5-15.5) % Plt Count 207 (150-450) k/uL MPV 8.5 Neutrophils % 73 % Lymphocytes % 11 % Monocytes % 10 % Eosinophils % 1 % Basophils % 1 % Neutrophils # 5.3 (1.3-7.7) k/uL Lymphocytes # 0.8 L (1.0-4.8) k/uL Monocytes # 0.7 (0-1.0) k/uL Eosinophils # 0.1 (0-0.7) k/uL Basophils # 0.1 (0-0.2) k/uL PT 10.6 (9.0-12.0) sec INR 1.0 (<1.2) APTT 23.4 (22.0-30.0) sec Sodium 137 (137-145) mmol/L Potassium 4.5 (3.5-5.1) mmol/L Chloride 96 L (98-107) mmol/L Carbon Dioxide 40 H (22-30) mmol/L Anion Gap 1 mmol/L BUN 18 (9-20) mg/dL Creatinine 0.55 L (0.66-1.25) mg/dL Est GFR (CKD-EPI)AfAm >90 (>60 ml/min/1.73 sqM) Est GFR (CKD-EPI)NonAf >90 (>60 ml/min/1.73 sqM) Glucose 101 H (74-99) mg/dL Plasma Lactic Acid Ricky (0.7-2.0) mmol/L Calcium 8.0 L (8.4-10.2) mg/dL Magnesium 1.9 (1.6-2.3) mg/dL Total Bilirubin 0.7 (0.2-1.3) mg/dL AST 21 (17-59) U/L ALT 12 (4-49) U/L Alkaline Phosphatase 65 (38-126) U/L Troponin I (0.000-0.034) ng/mL Total Protein 6.6 (6.3-8.2) g/dL Albumin 3.6 (3.5-5.0) g/dL 04/11/22 04/11/22 Range/Units 14:40 14:40 WBC (3.8-10.6) k/uL RBC (4.30-5.90) m/uL Hgb (13.0-17.5) gm/dL Hct (39.0-53.0) % MCV (80.0-100.0) fL MCH (25.0-35.0) pg MCHC (31.0-37.0) g/dL RDW (11.5-15.5) % Plt Count (150-450) k/uL MPV Neutrophils % % Lymphocytes % % Monocytes % % Eosinophils % % Basophils % % Neutrophils # (1.3-7.7) k/uL Lymphocytes # (1.0-4.8) k/uL Monocytes # (0-1.0) k/uL Eosinophils # (0-0.7) k/uL Basophils # (0-0.2) k/uL PT (9.0-12.0) sec INR (<1.2) APTT (22.0-30.0) sec Sodium (137-145) mmol/L Potassium (3.5-5.1) mmol/L Chloride (98-107) mmol/L Carbon Dioxide (22-30) mmol/L Anion Gap mmol/L BUN (9-20) mg/dL Creatinine (0.66-1.25) mg/dL Est GFR (CKD-EPI)AfAm (>60 ml/min/1.73 sqM) Est GFR (CKD-EPI)NonAf (>60 ml/min/1.73 sqM) Glucose (74-99) mg/dL Plasma Lactic Acid Ricky 0.8 (0.7-2.0) mmol/L Calcium (8.4-10.2) mg/dL Magnesium (1.6-2.3) mg/dL Total Bilirubin (0.2-1.3) mg/dL AST (17-59) U/L ALT (4-49) U/L Alkaline Phosphatase (38-126) U/L Troponin I 0.120 H* (0.000-0.034) ng/mL Total Protein (6.3-8.2) g/dL Albumin (3.5-5.0) g/dL Critical Care Time Critical Care Time: Yes Total Critical Care Time: 35 Disposition Clinical Impression: COPD exacerbation, Non-STEMI (non-ST elevated myocardial infarction) Disposition: ADMITTED IP TO THIS HOSP Referrals: Jamie Balderas DO [Primary Care Provider] - 1-2 days Time of Disposition: 16:33
[2022-04-11 15:11] LABS: Basophils # (A) 0.1 k/uL (0-0.2); Basophils % (A) 1 %; Eosinophils # (A) 0.1 k/uL (0-0.7); Eosinophils % (A) 1 %; HGB 13.6 gm/dL (13.0-17.5); Lymphocytes # (A) 0.8 k/uL (1.0-4.8); Lymphocytes % (A) 11 %; MCH 29.8 pg (25.0-35.0); MCHC 32.4 g/dL (31.0-37.0); MCV 92.1 fL (80.0-100.0); Mean Platelet Volume 8.5; Monocytes # (A) 0.7 k/uL (0-1.0); Monocytes % (A) 10 %; Neutrophils # (A) 5.3 k/uL (1.3-7.7); Neutrophils % (A) 73 %; Platelet Count 207 k/uL (150-450); RBC 4.56 m/uL (4.30-5.90); RDW 13.1 % (11.5-15.5); WBC 7.3 k/uL (3.8-10.6)
[2022-04-11 15:26] LABS: Partial Thromboplastin Time 23.4 sec (22.0-30.0); Prothrombin Time 10.6 sec (9.0-12.0)
[2022-04-11 15:28] LABS: ALT 12 U/L (4-49); AST 21 U/L (17-59); African American GFR (CKD) >90 (>60 ml/min/1.73 sqM); Albumin 3.6 g/dL (3.5-5.0); Alkaline Phosphatase 65 U/L (38-126); Anion Gap 1 mmol/L; Blood Urea Nitrogen 18 mg/dL (9-20); Chloride 96 mmol/L (98-107); Glucose 101 mg/dL (74-99); Magnesium 1.9 mg/dL (1.6-2.3); Non-African American GFR(CKD) >90 (>60 ml/min/1.73 sqM); Potassium 4.5 mmol/L (3.5-5.1); Sodium 137 mmol/L (137-145); Total Bilirubin 0.7 mg/dL (0.2-1.3); Total Protein 6.6 g/dL (6.3-8.2)
[2022-04-11 15:38] LABS: Carbon Dioxide 40 mmol/L (22-30)
--- NOTE | 2022-04-11 15:52 | XR ---
EXAMINATION TYPE: XR chest 2V DATE OF EXAM: 04/11/2022 COMPARISON: 03/07/2020 HISTORY: Shortness of breath TECHNIQUE: Frontal and lateral views of the chest are obtained. FINDINGS: Scattered senescent parenchymal changes noted. Hyperinflation compatible with COPD. No evidence for infiltrate. No evidence for atelectasis. Heart size is stable. Mediastinal structures are stable and grossly unremarkable. No evidence for hilar prominence. Degenerative changes dorsal spine. IMPRESSION: 1. No evidence for acute pulmonary disease.
[2022-04-11] MEDS ORDERED: HEPARIN SODIUM 1,000 UN/ML (10ML VL) IV ONE (16:31)
[2022-04-11] MEDS ORDERED: NALOXONE 0.4 MG/ML 1 ML VIAL IVP PRN (16:34)
[2022-04-11] MEDS: methylPREDNISolone SOD SUCCI 125 MG/2 ML VIAL IV SCH (17:41)
[2022-04-11] MEDS: HEPARIN SOD,PORK IN 0.45% NACL 25,000 UNIT in 0.45% NACL 1 250ML.BAG IV SCH (17:43)
[2022-04-11 17:45] LABS: VBG PH 7.31 (7.31-7.41)
[2022-04-11] MEDS: IPRATROPIUM-ALBUTEROL 3 ML NEB INHALATION PRN (18:59)
[2022-04-11] MEDS: ALBUTEROL NEBULIZED 2.5 MG/3 ML INHALATION SCH ×2 (19:06→23:55)
[2022-04-11 21:30] LABS: Glucose,Whole Blood 266 mg/dL (70-110)
[2022-04-11] MEDS: ATORVASTATIN 80 MG TAB PO SCH (21:56)
[2022-04-11] MEDS: lisinopriL 20 MG TAB PO SCH (21:56)
[2022-04-11] MEDS: AMOXIC-POT CLAV 875-125MG 1 EACH TAB PO SCH (21:56)
[2022-04-11] MEDS: amLODIPine 5 MG TAB PO SCH (21:56)
[2022-04-11] MEDS: INSULIN ASPART (NovoLOG) 100 UNIT/ML VIAL SQ SCH (21:57)
[2022-04-11] MEDS: ACETAMINOPHEN TAB 500 MG TAB PO PRN (22:06)
[2022-04-12] MEDS: ALBUTEROL NEBULIZED 2.5 MG/3 ML INHALATION SCH ×5 (04:17→19:22)
[2022-04-12] MEDS: IPRATROPIUM-ALBUTEROL 3 ML NEB INHALATION PRN (04:17)
[2022-04-12 06:09] LABS: Glucose,Whole Blood 146 mg/dL (70-110)
[2022-04-12] MEDS: INSULIN ASPART (NovoLOG) 100 UNIT/ML VIAL SQ SCH ×4 (06:25→20:33)
[2022-04-12] MEDS: methylPREDNISolone SOD SUCCI 125 MG/2 ML VIAL IV SCH ×4 (06:29→18:04)
[2022-04-12] MEDS: AMOXIC-POT CLAV 875-125MG 1 EACH TAB PO SCH ×2 (08:54→20:33)
[2022-04-12] MEDS: amLODIPine 5 MG TAB PO SCH ×2 (08:54→20:33)
[2022-04-12] MEDS: lisinopriL 20 MG TAB PO SCH ×2 (08:54→20:33)
[2022-04-12] MEDS: TAMSULOSIN 0.4 MG CAP.ER.24H PO SCH (08:54)
--- NOTE | 2022-04-12 08:57 | P.CRDCN ---
History of Present Illness History of present illness: CHIEF COMPLAINT: Elevated troponin, SOB HISTORY OF PRESENT ILLNESS: This is a 69-year old male with a past medical history significant for mild coronary artery disease, hypertension, hyper lipidemia, and COPD. Patient follows in the office with Dr. Jack. We have been asked to see the patient in consultation for elevated troponin. Patient unfortunately was diagnosed with throat/septic deal cancer and just started radiation and is received his third dose of 21. No plans for any surgery. Unfortunately over the last few days he has been having worsened shortness of breath. Normally he does use oxygen at home and try to increase his oxygen however still struggling to breathe and therefore called EMS and presented to emergency department. He denies any chest tightness, pressure. Denies any lightheadedness. He does have trace left greater than right lower extremity edema. EKG shows sinus rhythm with PVCs with T-wave inversions V1 through V4. Blood work shows white blood cells 7.3, hemoglobin 13.6, creatinine 0.5, troponin 0.12, 0.11. Patient underwent cardiac cath in February [address] Jack revealing mild triple vessel disease with 20-30% lesion of the circumflex and 20% of the RCA. REVIEW OF SYSTEMS: At the time of my exam: CONSTITUTIONAL: Denies fever or chills. HEENT: Denies blurred vision, vision changes, or eye pain. Denies hemoptysis CARDIOVASCULAR: No chest pain. Denies orthopnea, PND or palpitations, +SOB RESPIRATORY: Reports shortness of breath. GASTROINTESTINAL: Denies abdominal pain. Denies nausea or vomiting. HEMATOLOGIC: Denies bleeding disorders. GENITOURINARY: Denies any blood in urine. SKIN: Denies pruitis. Denies rash. PHYSICAL EXAM: VITAL SIGNS: Reviewed. GENERAL: Well-developed in no acute distress. HEENT: Head is normocephalic. Pupils are equal, round. Sclerae anicteric. Mucous membranes of the mouth are moist. Neck supple. No JVD or thyromegaly LUNGS: Respirations even and unlabored. Lungs diminished. HEART: Regular rate and rhythm. S1 and S2 heard. ABDOMEN: Soft. Nondistended. Nontender. EXTREMITIES: Normal range of motion. No clubbing or cyanosis. Peripheral pulses intact. No lower extremity edema NEUROLOGIC: Awake and alert. Oriented x 3. ASSESSMENT: NSTEMI, possible Type 1 vs Type 2 related to hypoxic respiratory failure Nonobstructive coronary artery disease from prior cath 2017 Acute on chronic respiratory failure COPD Hypertension Hyperlipidemia Nicotine dependence Recent diagnosis of esophageal cancer, s/p 3 rounds of radiation PLAN: Continue aspirin, heparin drip. Low dose metoprolol and monitor response with his COPD. Check 2-D echo for left ventricular function. Patient not having obvious angina-type symptoms however does have known mild CAD and EKG does have some T-wave inversions V1 through V4 seen somewhat on prior EKGs. Check repeat troponin. Further recommendations follow. Past Medical History Past Medical History: Coronary Artery Disease (CAD), COPD, GERD/Reflux, Hearing Disorder / Deafness, Hyperlipidemia, Hypertension, Pneumonia, Vascular Disorder Additional Past Medical History / Comment(s): Severe COPD, history of autoimmune disease had work up by Dr. Goins and [facility]-never received specifics about the disease type, aortic aneurysm with repair, thoracolumbar pain/T4 fracture with recent surgery, current nephrolithiasis-has passed stones on his own in the past, bilateral leg cramps, left eardrum perforation/[facility] [employer]. Currently has throat cancer being treated with radiation. History of Any Multi-Drug Resistant Organisms: Other MDRO Past Surgical History: Appendectomy, Back Surgery, Ear Surgery, Heart Catheterization, Hernia Repair Additional Past Surgical History / Comment(s): 06/29/19 T4 kyphoplasty, Endovascular stent grafting of a abdominal aortic aneurysm. Facial reconstructive surgery. L ear surgery-myringotomy. Umbilical hernia. Colonoscopy-benign polypectomy. R cataract removed with lens. L eye had glass removed and lens placed. Past Anesthesia/Blood Transfusion Reactions: No Reported Reaction Additional Past Anesthesia/Blood Transfusion Reaction / Comment(s): Pt has never recieved blood. Past Psychological History: No Psychological Hx Reported Additional Psychological History / Comment(s): Pt resides with his spouse. 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 Pt uses no assistive device. He drives. Smoking Status: Current every day smoker Past Alcohol Use History: Occasional Additional Past Alcohol Use History / Comment(s): Pt started smoking in 1961. Pt states he is down to 2cigarettes a day, from 2ppd and has not soked at all in past 2 days. Past Drug Use History: None Reported - Past Family History Brother(s) Family Medical History: Cancer, Fibromyalgia Additional Family Medical History / Comment(s): Brother of lung cancer at the age of 42 yrs. He was a smoker. Sister(s) Family Medical History: Cancer, Fibromyalgia Additional Family Medical History / Comment(s): Sister of lung cancer. She was a smoker. Father Family Medical History: Myocardial Infarction (AR) Additional Family Medical History / Comment(s): Father at age 75 yrs of a AR Mother Family Medical History: Cancer Additional Family Medical History / Comment(s): Mother of metastatic cancer (unknown primary) at age 42 yrs. Medications and Allergies Home Medications Medication Instructions Recorded Confirmed Type Atorvastatin [Lipitor] 80 mg PO HS 05/04/18 04/11/22 History lisinopriL [Zestril] 20 mg PO BID 03/04/19 04/11/22 History amLODIPine [Norvasc] 5 mg PO BID 06/25/19 04/11/22 History Albuterol Nebulized [Ventolin 2.5 mg INHALATION RT-QID PRN 03/06/20 04/11/22 History Nebulized] Albuterol Sulfate [Ventolin HFA] 2 puff INHALATION RT-QID PRN 03/06/20 04/11/22 History SILVER sulfADIAZINE CREAM 1 applic TOPICAL BID 03/06/20 04/11/22 History [Silvadene Cream] Ergocalciferol (Vitamin D2) 1,250 mcg PO MO 04/11/22 04/11/22 History [Drisdol (50,000 Iu)] Tamsulosin HCl [Flomax] 0.4 mg PO DAILY 04/11/22 04/11/22 History Allergies Allergy/AdvReac Type Severity Reaction Status Date / Time Penicillins Allergy Rash/Hives Verified 04/11/22 16:48 gabapentin AdvReac Hallucinati Verified 04/11/22 16:48 ons/AMS Physical Exam Vitals: Vital Signs Temp Pulse Pulse Resp BP BP Pulse Ox 04/12/22 04:29 72 04/12/22 04:17 68 04/12/22 04:13 97.8 F 62 20 123/77 90 L 04/12/22 00:10 94 L 04/12/22 00:08 70 04/12/22 00:00 98.4 F 83 18 123/75 94 L 04/11/22 23:56 80 91 L 04/11/22 20:00 97.6 F 78 20 155/93 91 L 04/11/22 19:11 75 04/11/22 18:59 75 04/11/22 17:47 88 16 160/98 92 L 04/11/22 15:10 75 22 04/11/22 14:56 74 22 04/11/22 14:20 22 04/11/22 14:10 97.8 F 88 24 167/102 91 L FiO2 04/12/22 04:29 04/12/22 04:17 04/12/22 04:13 04/12/22 00:10 35 04/12/22 00:08 04/12/22 00:00 04/11/22 23:56 04/11/22 20:00 04/11/22 19:11 04/11/22 18:59 04/11/22 17:47 04/11/22 15:10 04/11/22 14:56 04/11/22 14:20 04/11/22 14:10 Intake and Output 04/11/22 04/12/22 04/12/22 22:59 06:59 14:59 Intake Total 63.506 0 Output Total 150 500 Balance -86.494 -500 Intake: Intake, IV Titration 63.506 Amount Heparin Sod,Pork in 0.45% 63.506 NaCl 25,000 unit In 0.45 % NaCl 1 250ml.bag @ 12 UNITS/KG/HR 9.362 mls/hr IV .Q24H [facility] Rx#: [id number] Oral 0 Output: Urine 150 500 Other: Weight 78.018 kg Results 04/11/22 14:40 04/11/22 14:40 Cardiac Enzymes 04/11/22 04/11/22 04/11/22 Range/Units 14:40 14:40 14:40 WBC 7.3 (3.8-10.6) k/uL RBC 4.56 (4.30-5.90) m/uL Hgb 13.6 (13.0-17.5) gm/dL Hct 42.0 (39.0-53.0) % MCV 92.1 (80.0-100.0) fL MCH 29.8 (25.0-35.0) pg MCHC 32.4 (31.0-37.0) g/dL RDW 13.1 (11.5-15.5) % Plt Count 207 (150-450) k/uL MPV 8.5 Neutrophils % 73 % Lymphocytes % 11 % Monocytes % 10 % Eosinophils % 1 % Basophils % 1 % Neutrophils # 5.3 (1.3-7.7) k/uL Lymphocytes # 0.8 L (1.0-4.8) k/uL Monocytes # 0.7 (0-1.0) k/uL Eosinophils # 0.1 (0-0.7) k/uL Basophils # 0.1 (0-0.2) k/uL PT 10.6 (9.0-12.0) sec INR 1.0 (<1.2) APTT 23.4 (22.0-30.0) sec VBG pH (7.31-7.41) VBG pCO2 (37-51) mmHg VBG HCO3 (24-28) mmol/L Sodium 137 (137-145) mmol/L Potassium 4.5 (3.5-5.1) mmol/L Chloride 96 L (98-107) mmol/L Carbon Dioxide 40 H (22-30) mmol/L Anion Gap 1 mmol/L BUN 18 (9-20) mg/dL Creatinine 0.55 L (0.66-1.25) mg/dL Est GFR (CKD-EPI)AfAm >90 (>60 ml/min/1.73 sqM) Est GFR (CKD-EPI)NonAf >90 (>60 ml/min/1.73 sqM) Glucose 101 H (74-99) mg/dL POC Glucose (mg/dL) (70-110) mg/dL POC Glu Battery Filler ID Plasma Lactic Acid Ricky (0.7-2.0) mmol/L Calcium 8.0 L (8.4-10.2) mg/dL Magnesium 1.9 (1.6-2.3) mg/dL Total Bilirubin 0.7 (0.2-1.3) mg/dL AST 21 (17-59) U/L ALT 12 (4-49) U/L Alkaline Phosphatase 65 (38-126) U/L Troponin I (0.000-0.034) ng/mL Total Protein 6.6 (6.3-8.2) g/dL Albumin 3.6 (3.5-5.0) g/dL 04/11/22 04/11/22 04/11/22 Range/Units 14:40 14:40 17:04 WBC (3.8-10.6) k/uL RBC (4.30-5.90) m/uL Hgb (13.0-17.5) gm/dL Hct (39.0-53.0) % MCV (80.0-100.0) fL MCH (25.0-35.0) pg MCHC (31.0-37.0) g/dL RDW (11.5-15.5) % Plt Count (150-450) k/uL MPV Neutrophils % % Lymphocytes % % Monocytes % % Eosinophils % % Basophils % % Neutrophils # (1.3-7.7) k/uL Lymphocytes # (1.0-4.8) k/uL Monocytes # (0-1.0) k/uL Eosinophils # (0-0.7) k/uL Basophils # (0-0.2) k/uL PT (9.0-12.0) sec INR (<1.2) APTT (22.0-30.0) sec VBG pH 7.31 (7.31-7.41) VBG pCO2 86 H* (37-51) mmHg VBG HCO3 44 H (24-28) mmol/L Sodium (137-145) mmol/L Potassium (3.5-5.1) mmol/L Chloride (98-107) mmol/L Carbon Dioxide (22-30) mmol/L Anion Gap mmol/L BUN (9-20) mg/dL Creatinine (0.66-1.25) mg/dL Est GFR (CKD-EPI)AfAm (>60 ml/min/1.73 sqM) Est GFR (CKD-EPI)NonAf (>60 ml/min/1.73 sqM) Glucose (74-99) mg/dL POC Glucose (mg/dL) (70-110) mg/dL POC Glu Battery Filler ID Plasma Lactic Acid Ricky 0.8 (0.7-2.0) mmol/L Calcium (8.4-10.2) mg/dL Magnesium (1.6-2.3) mg/dL Total Bilirubin (0.2-1.3) mg/dL AST (17-59) U/L ALT (4-49) U/L Alkaline Phosphatase (38-126) U/L Troponin I 0.120 H* (0.000-0.034) ng/mL Total Protein (6.3-8.2) g/dL Albumin (3.5-5.0) g/dL 04/11/22 04/11/22 04/11/22 Range/Units 17:50 21:28 23:13 WBC (3.8-10.6) k/uL RBC (4.30-5.90) m/uL Hgb (13.0-17.5) gm/dL Hct (39.0-53.0) % MCV (80.0-100.0) fL MCH (25.0-35.0) pg MCHC (31.0-37.0) g/dL RDW (11.5-15.5) % Plt Count (150-450) k/uL MPV Neutrophils % % Lymphocytes % % Monocytes % % Eosinophils % % Basophils % % Neutrophils # (1.3-7.7) k/uL Lymphocytes # (1.0-4.8) k/uL Monocytes # (0-1.0) k/uL Eosinophils # (0-0.7) k/uL Basophils # (0-0.2) k/uL PT (9.0-12.0) sec INR (<1.2) APTT 33.0 H (22.0-30.0) sec VBG pH (7.31-7.41) VBG pCO2 (37-51) mmHg VBG HCO3 (24-28) mmol/L Sodium (137-145) mmol/L Potassium (3.5-5.1) mmol/L Chloride (98-107) mmol/L Carbon Dioxide (22-30) mmol/L Anion Gap mmol/L BUN (9-20) mg/dL Creatinine (0.66-1.25) mg/dL Est GFR (CKD-EPI)AfAm (>60 ml/min/1.73 sqM) Est GFR (CKD-EPI)NonAf (>60 ml/min/1.73 sqM) Glucose (74-99) mg/dL POC Glucose (mg/dL) 266 H (70-110) mg/dL POC Glu Battery Filler ID Cesilia Willoughby Plasma Lactic Acid Ricky (0.7-2.0) mmol/L Calcium (8.4-10.2) mg/dL Magnesium (1.6-2.3) mg/dL Total Bilirubin (0.2-1.3) mg/dL AST (17-59) U/L ALT (4-49) U/L Alkaline Phosphatase (38-126) U/L Troponin I 0.115 H* (0.000-0.034) ng/mL Total Protein (6.3-8.2) g/dL Albumin (3.5-5.0) g/dL 04/12/22 04/12/22 Range/Units 06:07 08:00 WBC (3.8-10.6) k/uL RBC (4.30-5.90) m/uL Hgb (13.0-17.5) gm/dL Hct (39.0-53.0) % MCV (80.0-100.0) fL MCH (25.0-35.0) pg MCHC (31.0-37.0) g/dL RDW (11.5-15.5) % Plt Count (150-450) k/uL MPV Neutrophils % % Lymphocytes % % Monocytes % % Eosinophils % % Basophils % % Neutrophils # (1.3-7.7) k/uL Lymphocytes # (1.0-4.8) k/uL Monocytes # (0-1.0) k/uL Eosinophils # (0-0.7) k/uL Basophils # (0-0.2) k/uL PT (9.0-12.0) sec INR (<1.2) APTT 41.0 H (22.0-30.0) sec VBG pH (7.31-7.41) VBG pCO2 (37-51) mmHg VBG HCO3 (24-28) mmol/L Sodium (137-145) mmol/L Potassium (3.5-5.1) mmol/L Chloride (98-107) mmol/L Carbon Dioxide (22-30) mmol/L Anion Gap mmol/L BUN (9-20) mg/dL Creatinine (0.66-1.25) mg/dL Est GFR (CKD-EPI)AfAm (>60 ml/min/1.73 sqM) Est GFR (CKD-EPI)NonAf (>60 ml/min/1.73 sqM) Glucose (74-99) mg/dL POC Glucose (mg/dL) 146 H (70-110) mg/dL POC Glu Battery Filler ID Cesilia Willoughby Plasma Lactic Acid Ricky (0.7-2.0) mmol/L Calcium (8.4-10.2) mg/dL Magnesium (1.6-2.3) mg/dL Total Bilirubin (0.2-1.3) mg/dL AST (17-59) U/L ALT (4-49) U/L Alkaline Phosphatase (38-126) U/L Troponin I (0.000-0.034) ng/mL Total Protein (6.3-8.2) g/dL Albumin (3.5-5.0) g/dL Coagulation 04/11/22 04/11/22 04/12/22 Range/Units 14:40 23:13 08:00 PT 10.6 (9.0-12.0) sec APTT 23.4 33.0 H 41.0 H (22.0-30.0) sec CBC 04/11/22 Range/Units 14:40 WBC 7.3 (3.8-10.6) k/uL RBC 4.56 (4.30-5.90) m/uL Hgb 13.6 (13.0-17.5) gm/dL Hct 42.0 (39.0-53.0) % Plt Count 207 (150-450) k/uL Comprehensive Metabolic Panel 04/11/22 Range/Units 14:40 Sodium 137 (137-145) mmol/L Potassium 4.5 (3.5-5.1) mmol/L Chloride 96 L (98-107) mmol/L Carbon Dioxide 40 H (22-30) mmol/L BUN 18 (9-20) mg/dL Creatinine 0.55 L (0.66-1.25) mg/dL Glucose 101 H (74-99) mg/dL Calcium 8.0 L (8.4-10.2) mg/dL AST 21 (17-59) U/L ALT 12 (4-49) U/L Alkaline Phosphatase 65 (38-126) U/L Total Protein 6.6 (6.3-8.2) g/dL Albumin 3.6 (3.5-5.0) g/dL Current Medications Generic Name Dose Route Start Last Admin Trade Name Freq PRN Reason Stop Dose Admin Acetaminophen 500 mg 04/11/22 20:44 04/11/22 22:06 Acetaminophen Tab 500 Mg Tab PO 500 mg Q6HR PRN Administration Fever and/ or Mild Pain Albuterol Sulfate 2.5 mg 04/11/22 20:00 04/12/22 04:17 Albuterol Nebulized 2.5 Mg/3 Ml INHALATION Not Given RT-Q4H [facility] Albuterol/Ipratropium 3 ml 04/11/22 16:34 04/12/22 04:17 Ipratropium-Albuterol 3 Ml Neb INHALATION 3 ml RT-Q2H PRN Administration Shortness Of Breath Or Wheezing Amlodipine Besylate 5 mg 04/11/22 21:00 04/11/22 21:56 Amlodipine 5 Mg Tab PO 5 mg BID [facility] Administration Amoxicillin/Clavulanate Potassium 1 each 04/11/22 21:00 04/11/22 21:56 Amoxic-Pot Clav 875-125mg 1 Each Tab PO 04/16/22 09:01 1 each Q12HR [facility] Administration Protocol Atorvastatin Calcium 80 mg 04/11/22 21:00 04/11/22 21:56 Atorvastatin 80 Mg Tab PO 80 mg HS [facility] Administration Ergocalciferol 1,250 mcg 04/16/22 09:00 Ergocalciferol 1,250 Mcg (50,000 Iu) Capsule PO MO [facility] Heparin Sodium/Sodium Chloride 250 mls @ 9.362 mls/hr 04/11/22 16:45 04/12/22 00:30 25,000 unit/ Sodium Chloride IV 15 units/kg/hr .Q24H [facility] 11.703 mls/hr Titration Protocol 12 UNITS/KG/HR Insulin Aspart 0 unit 04/11/22 21:00 04/12/22 06:25 Insulin Aspart (Novolog) 100 Unit/Ml Vial SQ Not Given ACHS [facility] Protocol Lisinopril 20 mg 04/11/22 21:00 04/11/22 21:56 Lisinopril 20 Mg Tab PO 20 mg BID [facility] Administration Methylprednisolone Sodium Succinate 60 mg 04/11/22 18:00 04/12/22 06:29 Methylprednisolone Sod Succi 125 Mg/2 Ml Vial IV 60 mg Q6HR [facility] Administration Naloxone HCl 0.2 mg 04/11/22 16:34 Naloxone 0.4 Mg/Ml 1 Ml Vial IVP Q2M PRN Opioid Reversal Silver Sulfadiazine 1 applic 04/11/22 22:00 04/11/22 22:56 Silver Sulfadiazine 1% Cream 25 Gm Tube TOPICAL 1 applic BID [facility] Administration Protocol Tamsulosin HCl 0.4 mg 04/12/22 09:00 Tamsulosin 0.4 Mg Cap.Er.24h PO DAILY [facility] Intake and Output 04/11/22 04/12/22 04/12/22 22:59 06:59 14:59 Intake Total 63.506 0 Output Total 150 500 Balance -86.494 -500 Intake: Intake, IV Titration 63.506 Amount Heparin Sod,Pork in 0.45% 63.506 NaCl 25,000 unit In 0.45 % NaCl 1 250ml.bag @ 12 UNITS/KG/HR 9.362 mls/hr IV .Q24H [facility] Rx#: [id number] Oral 0 Output: Urine 150 500 Other: Weight 78.018 kg 04/11/22 14:40 04/11/22 14:40
[2022-04-12 11:44] LABS: Glucose,Whole Blood 235 mg/dL (70-110)
--- NOTE | 2022-04-12 11:55 | CA ---
Transthoracic Echo Report Name: Adam Olivo Age: 71 Gender: M : 1950 Exam Date: 04/12/2022 10:38 Exam Location: [place] [facility] Ht (in): 70 Wt (lb): 172 Ordering Physician: Narinder Finn DO ([email or web address]) Attending/Referring Phys: Produce Team Lead Stormy Stone RDCS Procedure CPT: Indications: re: LV function Cardiac Hx: Technical Quality: Good Contrast 1: Total Dose (mL): Contrast 2: Total Dose (mL): MEASUREMENTS (Male / Female) Normal Values 2D ECHO LV Diastolic Diameter PLAX 5.1 cm 4.2 - 5.9 / 3.9 - 5.3 cm LV Systolic Diameter PLAX 3.6 cm IVS Diastolic Thickness 1.4 cm 0.6 - 1.0 / 0.6 - 0.9 cm LVPW Diastolic Thickness 1.3 cm 0.6 - 1.0 / 0.6 - 0.9 cm LV Relative Wall Thickness 0.5 RV Internal Dim ED PLAX 3.7 cm LA Systolic Diameter LX 4.7 cm 3.0 - 4.0 / 2.7 - 3.8 cm LA Volume 77.7 cm??? 18 - 58 / 22 - 52 cm??? M-MODE Aortic Root Diameter MM 3.3 cm MV E Point Septal Separation 0.7 cm AV Cusp Separation MM 2.3 cm DOPPLER AV Peak Velocity 155.1 cm/s AV Peak Gradient 9.6 mmHg MV Area PHT 4.2 cm??? Mitral E Point Velocity 105.8 cm/s Mitral A Point Velocity 103.1 cm/s Mitral E to A Ratio 1.0 MV Deceleration Time 181.0 ms MV E' Velocity 6.9 cm/s Mitral E to MV E' Ratio 15.3 FINDINGS Left Ventricle Left ventricular ejection fraction is estimated at 55-60 %. Left ventricular cavity size normal. Moderate concentric left ventricular hypertrophy. Right Ventricle Mild right ventricular dilatation. Unable to estimate the right ventricular systolic pressure no TR Right Atrium Normal right atrial size. Left Atrium Mildly increased left atrial diameter. Moderately increased left atrial volume. Mildly increased left atrial area.no evidence for an atrial septal defect. Mitral Valve Structurally normal mitral valve. Trace to mild mitral regurgitation. Aortic Valve Trileaflet aortic valve. No aortic valve stenosis or regurgitation. Tricuspid Valve Structurally normal tricuspid valve. Pulmonic Valve Trace to mild pulmonic regurgitation. Pericardium Normal pericardium. No pericardial effusion. Aorta Normal size aortic root and proximal ascending aorta. CONCLUSIONS Normal left ventricular dimension and systolic function Previewed by: Dr. vYes Silva MD (Electronically Signed) Final Date: 12 April 2022 11:54
[2022-04-12] MEDS: IPRATROPIUM-ALBUTEROL 3 ML NEB INHALATION SCH ×3 (12:02→19:22)
[2022-04-12] MEDS: ASPIRIN 81 MG PO SCH (12:11)
[2022-04-12] MEDS: METOPROLOL SUCCINATE (ER) 25 MG TAB.ER.24H PO SCH (12:11)
--- NOTE | 2022-04-12 12:58 | P.CNPUL ---
History of Present Illness Consult date: 04/12/22 Requesting physician: Jamie Balderas Reason for consult: COPD Chief complaint: Shortness of breath History of present illness: This is a 71-year-old white male with history of multiple medical problems including severe COPD, tobacco dependence syndrome, hypertension, nonocclusive coronary artery disease, patient normally sees Dr. Gonzalez on outpatient basis for his underlying COPD. The last time he saw him was few months ago. Patient is maintained on multiple bronchodilators including Trelegy Ellipta, albuterol, DuoNeb updrafts 4 times a day and when necessary. Patient was recently discov ered to have laryngeal cancer, and has been receiving radiation treatment by Dr. Rios at [facility]. Patient received a total of 3 doses out of 21 doses so far. Over the last few days, patient has been noticing cough wheezing shortness of breath, cough is productive with yellow phlegm, no hemoptysis, denies any fever or chills, denies any chest pain. Patient has been using more oxygen at home, nonetheless his shortness of breath has become a bit more pronounced. Hence he decided to come to the ER. Workup included so far chest x-ray , showed no evidence of active pulmonary disease. He did have chronic scattered senescent parenchymal changes and hyperinflation compatible with COPD, CBC was normal. He CO2 was noted to be elevated on a venous blood gases pCO2 of 86. His bicarb is 40. And the contemplative of chronic respiratory acidosis with metabolic compensation. Patient had a relatively normal electrolytes and normal renal profile otherwise. Troponin was at the time of the day and and his BNP level was also noted to be elevated at 8600, again his chest x-ray showed no evidence of pulmonary edema or infiltrate patient was admitted, he is on oral Augmentin, is also on DuoNeb updrafts 4 times a day and when necessary, Solu-Medrol and I added Symbicort Review of Systems CONSTITUTIONAL: Negative, no fever no chills, no weight loss. HEENT: Recently discovered laryngeal cancer, patient is undergoing radiation treatment has some voice hoarseness. CARDIOVASCULAR: Negative, no chest pain no orthopnea no PND. RESPIRATORY: As noted in HPI. GASTROINTESTINAL: Negative. HEMATOLOGIC: Negative. GENITOURINARY: No dysuria frequency urgency or hematuria. SKIN: No rashes. Psychiatric: Denies any symptoms of depression. Neurologic: Denies any headache blurred vision or dizziness. Denies syncope. Past Medical History Past Medical History: Coronary Artery Disease (CAD), COPD, GERD/Reflux, Hearing Disorder / Deafness, Hyperlipidemia, Hypertension, Pneumonia, Vascular Disorder Additional Past Medical History / Comment(s): Severe COPD, history of autoimmune disease had work up by Dr. Goins and [facility]-never received specifics about the disease type, aortic aneurysm with repair, thoracolumbar pain/T4 fracture with recent surgery, current nephrolithiasis-has passed stones on his own in the past, bilateral leg cramps, left eardrum perforation/[place]. Currently has throat cancer being treated with radiation. History of Any Multi-Drug Resistant Organisms: Other MDRO Past Surgical History: Appendectomy, Back Surgery, Ear Surgery, Heart Catheterization, Hernia Repair Additional Past Surgical History / Comment(s): 06/29/19 T4 kyphoplasty, Endovascular stent grafting of a abdominal aortic aneurysm. Facial reconstructive surgery. L ear surgery-myringotomy. Umbilical hernia. Colonoscopy-benign polypectomy. R cataract removed with lens. L eye had glass removed and lens placed. Past Anesthesia/Blood Transfusion Reactions: No Reported Reaction Additional Past Anesthesia/Blood Transfusion Reaction / Comment(s): Pt has never recieved blood. Past Psychological History: No Psychological Hx Reported Additional Psychological History / Comment(s): Pt resides with his spouse. 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 Pt uses no assistive device. He drives. Smoking Status: Current every day smoker Past Alcohol Use History: Occasional Additional Past Alcohol Use History / Comment(s): Pt started smoking in 1961. Pt states he is down to 2cigarettes a day, from 2ppd and has not soked at all in past 2 days. Past Drug Use History: None Reported - Past Family History Brother(s) Family Medical History: Cancer, Fibromyalgia Additional Family Medical History / Comment(s): Brother of lung cancer at the age of 42 yrs. He was a smoker. Sister(s) Family Medical History: Cancer, Fibromyalgia Additional Family Medical History / Comment(s): Sister of lung cancer. She was a smoker. Father Family Medical History: Myocardial Infarction ([place]) Additional Family Medical History / Comment(s): Father at age 75 yrs of a [place] Mother Family Medical History: Cancer Additional Family Medical History / Comment(s): Mother of metastatic cancer (unknown primary) at age 42 yrs. Medications and Allergies Home Medications Medication Instructions Recorded Confirmed Type Atorvastatin [Lipitor] 80 mg PO HS 05/04/18 04/11/22 History lisinopriL [Zestril] 20 mg PO BID 03/04/19 04/11/22 History amLODIPine [Norvasc] 5 mg PO BID 06/25/19 04/11/22 History Albuterol Nebulized [Ventolin 2.5 mg INHALATION RT-QID PRN 03/06/20 04/11/22 History Nebulized] Albuterol Sulfate [Ventolin HFA] 2 puff INHALATION RT-QID PRN 03/06/20 04/11/22 History SILVER sulfADIAZINE CREAM 1 applic TOPICAL BID 03/06/20 04/11/22 History [Silvadene Cream] Ergocalciferol (Vitamin D2) 1,250 mcg PO MO 04/11/22 04/11/22 History [Drisdol (50,000 Iu)] Tamsulosin HCl [Flomax] 0.4 mg PO DAILY 04/11/22 04/11/22 History Allergies Allergy/AdvReac Type Severity Reaction Status Date / Time Penicillins Allergy Rash/Hives Verified 04/11/22 16:48 gabapentin AdvReac Hallucinati Verified 04/11/22 16:48 ons/AMS Physical Exam Vitals: Vital Signs Temp Pulse Pulse Resp BP BP Pulse Ox 04/12/22 12:17 98.0 F 72 18 122/66 90 L 04/12/22 09:04 71 04/12/22 08:55 70 04/12/22 08:44 97.9 F 84 18 120/67 90 L 04/12/22 04:29 72 04/12/22 04:17 68 04/12/22 04:13 97.8 F 62 20 123/77 90 L 04/12/22 00:10 94 L 04/12/22 00:08 70 04/12/22 00:00 98.4 F 83 18 123/75 94 L 04/11/22 23:56 80 91 L 04/11/22 20:00 97.6 F 78 20 155/93 91 L 04/11/22 19:11 75 04/11/22 18:59 75 04/11/22 17:47 88 16 160/98 92 L 04/11/22 15:10 75 22 04/11/22 14:56 74 22 04/11/22 14:20 22 04/11/22 14:10 97.8 F 88 24 167/102 91 L FiO2 04/12/22 12:17 04/12/22 09:04 04/12/22 08:55 04/12/22 08:44 35 04/12/22 04:29 04/12/22 04:17 04/12/22 04:13 04/12/22 00:10 35 04/12/22 00:08 04/12/22 00:00 04/11/22 23:56 04/11/22 20:00 04/11/22 19:11 04/11/22 18:59 04/11/22 17:47 04/11/22 15:10 04/11/22 14:56 04/11/22 14:20 04/11/22 14:10 Intake and Output 04/11/22 04/12/22 04/12/22 22:59 06:59 14:59 Intake Total 63.506 136.73 Output Total 150 500 Balance -86.494 -363.27 Intake: Intake, IV Titration 63.506 136.73 Amount Heparin Sod,Pork in 0.45% 63.506 136.73 NaCl 25,000 unit In 0.45 % NaCl 1 250ml.bag @ 12 UNITS/KG/HR 9.362 mls/hr IV .Q24H [facility] Rx#: [id number] Oral 0 Output: Urine 150 500 Other: Voiding Method Urinal Weight 78.018 kg Physical Exam: Revealed 71-year-old white male in no distress. On 4 L nasal cannula. Head: Atraumatic, normocephalic. HEENT:[Neck is supple.] [No neck masses.] [No thyromegaly.] [No JVD.] Hoarseness is noted Chest: [Extremely diminished breath sound bilaterally, some wheezing on forced expiratory maneuver. Cardiac Exam: [Normal S1 and S2, no S3 gallop, no murmur.] Abdomen: [Soft, nontender, no megaly, no rebound, no guarding, normal bowel sounds.] Extremities: [No clubbing, no edema, no cyanosis.] Neurological Exam: [No focal neurologic deficit.] Alert oriented 3. Psychiatric: Normal mood affect and normal mental status examination. Skin: No rashes. Musculoskeletal: No deformities and no limitation of range of motion Results - Laboratory Findings CBC and BMP: 04/11/22 14:40 04/11/22 14:40 PT/INR, D-dimer PT 10.6 sec (9.0-12.0) 04/11/22 14:40 INR 1.0 (<1.2) 04/11/22 14:40 Abnormal lab findings: Abnormal Labs 04/11/22 04/11/22 04/11/22 14:40 14:40 14:40 Lymphocytes # 0.8 L APTT VBG pCO2 VBG HCO3 Chloride 96 L Carbon Dioxide 40 H Creatinine 0.55 L Glucose 101 H POC Glucose (mg/dL) Calcium 8.0 L Troponin I 0.120 H* 04/11/22 04/11/22 04/11/22 17:04 17:50 21:28 Lymphocytes # APTT VBG pCO2 86 H* VBG HCO3 44 H Chloride Carbon Dioxide Creatinine Glucose POC Glucose (mg/dL) 266 H Calcium Troponin I 0.115 H* 04/11/22 04/12/22 04/12/22 23:13 06:07 08:00 Lymphocytes # APTT 33.0 H 41.0 H VBG pCO2 VBG HCO3 Chloride Carbon Dioxide Creatinine Glucose POC Glucose (mg/dL) 146 H Calcium Troponin I 04/12/22 04/12/22 10:53 11:42 Lymphocytes # APTT VBG pCO2 VBG HCO3 Chloride Carbon Dioxide Creatinine Glucose POC Glucose (mg/dL) 235 H Calcium Troponin I 0.065 H* - Diagnostic Findings Chest x-ray: image reviewed (As noted in HPI) Assessment and Plan Assessment: Impression: Acute exacerbation of COPD Chronic hypoxic and chronic hypercapnic respiratory failure Laryngeal carcinoma, patient is undergoing radiation therapy Acute purulent tracheobronchitis Nonocclusive coronary artery disease based on previous cardiac catheterization in 2017 Abdominal aortic aneurysm benign essential hypertension Tobacco dependence syndrome Dyslipidemia Benign essential hypertension Recommendation: Agree with bronchodilators/DuoNeb Agree with Solu-Medrol Agree with Augmentin Continue oxygen Added Symbicort 160/4.52 puffs twice a day Cardiology is evaluating his elevated troponin Resume home meds Consider sputum cultures Will follow. Time with Patient: Greater than 30
[2022-04-12] MEDS: HEPARIN SOD,PORK IN 0.45% NACL 25,000 UNIT in 0.45% NACL 1 250ML.BAG IV SCH ×2 (14:09→18:34)
--- NOTE | 2022-04-12 16:02 | P.HPIM ---
History of Present Illness H&P Date: 04/12/22 Chief Complaint: Worsening shortness of breath, throat tightness This is a 71-year-old gentleman with past medical history of recently diagnosed laryngeal cancer -receiving radiation treatments (3 txs) by Dr. Rios at [facility], severe COPD, nicotine dependence, CAD, hypertension and multiple other medical issues, presented to the ER with worsening shortness of breath, increased oxygen requirement, wheezing, productive cough with yellow phlegm and "neck tightness". Chest x-ray reported no acute pulmonary disease. Afebrile, normal WBC, venous blood gases reporting pCO2 of 86, bicarb 40, sodium 137, potassium 4.5 stable renal function, blood sugars in the 200s, lactic acid 0.8, magnesium 1.9, troponin 0.115. Review of Systems ROS Statement: Those systems with pertinent positive or pertinent negative responses have been documented in the HPI. ROS Other: All systems not noted in ROS Statement are negative. Past Medical History Past Medical History: Coronary Artery Disease (CAD), COPD, GERD/Reflux, Hearing Disorder / Deafness, Hyperlipidemia, Hypertension, Pneumonia, Vascular Disorder Additional Past Medical History / Comment(s): Severe COPD, history of autoimmune disease had work up by Dr. Goins and [facility]-never received specifics about the disease type, aortic aneurysm with repair, thoracolumbar pain/T4 fracture with recent surgery, current nephrolithiasis-has passed stones on his own in the past, bilateral leg cramps, left eardrum perforation/[place]. Currently has throat cancer being treated with radiation. History of Any Multi-Drug Resistant Organisms: Other MDRO Past Surgical History: Appendectomy, Back Surgery, Ear Surgery, Heart Catheterization, Hernia Repair Additional Past Surgical History / Comment(s): 06/29/19 T4 kyphoplasty, Endovascular stent grafting of a abdominal aortic aneurysm. Facial vanesa nstructive surgery. L ear surgery-myringotomy. Umbilical hernia. Colonoscopy- benign polypectomy. R cataract removed with lens. L eye had glass removed and lens placed. Past Anesthesia/Blood Transfusion Reactions: No Reported Reaction Additional Past Anesthesia/Blood Transfusion Reaction / Comment(s): Pt has never recieved blood. Past Psychological History: No Psychological Hx Reported Additional Psychological History / Comment(s): Pt resides with his spouse. 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 Pt uses no assistive device. He drives. Smoking Status: Current every day smoker Past Alcohol Use History: Occasional Additional Past Alcohol Use History / Comment(s): Pt started smoking in 2. Pt states he is down to 2cigarettes a day, from 2ppd and has not soked at all in past 2 days. Past Drug Use History: None Reported - Past Family History Brother(s) Family Medical History: Cancer, Fibromyalgia Additional Family Medical History / Comment(s): Brother of lung cancer at the age of 42 yrs. He was a smoker. Sister(s) Family Medical History: Cancer, Fibromyalgia Additional Family Medical History / Comment(s): Sister of lung cancer. She was a smoker. Father Family Medical History: Myocardial Infarction ([place]) Additional Family Medical History / Comment(s): Father at age 75 yrs of a [place] Mother Family Medical History: Cancer Additional Family Medical History / Comment(s): Mother of metastatic cancer (unknown primary) at age 42 yrs. Medications and Allergies Home Medications Medication Instructions Recorded Confirmed Type Atorvastatin [Lipitor] 80 mg PO HS 05/04/18 04/11/22 History lisinopriL [Zestril] 20 mg PO BID 03/04/19 04/11/22 History amLODIPine [Norvasc] 5 mg PO BID 06/25/19 04/11/22 History Albuterol Nebulized [Ventolin 2.5 mg INHALATION RT-QID PRN 03/06/20 04/11/22 History Nebulized] Albuterol Sulfate [Ventolin HFA] 2 puff INHALATION RT-QID PRN 03/06/20 04/11/22 History SILVER sulfADIAZINE CREAM 1 applic TOPICAL BID 03/06/20 04/11/22 History [Silvadene Cream] Ergocalciferol (Vitamin D2) 1,250 mcg PO MO 04/11/22 04/11/22 History [Drisdol (50,000 Iu)] Tamsulosin HCl [Flomax] 0.4 mg PO DAILY 04/11/22 04/11/22 History Allergies Allergy/AdvReac Type Severity Reaction Status Date / Time Penicillins Allergy Rash/Hives Verified 04/11/22 16:48 gabapentin AdvReac Hallucinati Verified 04/11/22 16:48 ons/AMS Physical Exam Vitals: Vital Signs Temp Pulse Pulse Resp BP BP Pulse Ox 04/12/22 09:04 71 04/12/22 08:55 70 04/12/22 08:44 97.9 F 84 18 120/67 90 L 04/12/22 04:29 72 04/12/22 04:17 68 04/12/22 04:13 97.8 F 62 20 123/77 90 L 04/12/22 00:10 94 L 04/12/22 00:08 70 04/12/22 00:00 98.4 F 83 18 123/75 94 L 04/11/22 23:56 80 91 L 04/11/22 20:00 97.6 F 78 20 155/93 91 L 04/11/22 19:11 75 04/11/22 18:59 75 04/11/22 17:47 88 16 160/98 92 L 04/11/22 15:10 75 22 04/11/22 14:56 74 22 04/11/22 14:20 22 04/11/22 14:10 97.8 F 88 24 167/102 91 L FiO2 04/12/22 09:04 04/12/22 08:55 04/12/22 08:44 35 04/12/22 04:29 04/12/22 04:17 04/12/22 04:13 04/12/22 00:10 35 04/12/22 00:08 04/12/22 00:00 04/11/22 23:56 04/11/22 20:00 04/11/22 19:11 04/11/22 18:59 04/11/22 17:47 04/11/22 15:10 04/11/22 14:56 04/11/22 14:20 04/11/22 14:10 Intake and Output 04/11/22 04/12/22 04/12/22 22:59 06:59 14:59 Intake Total 63.506 0 Output Total 150 500 Balance -86.494 -500 Intake: Intake, IV Titration 63.506 Amount Heparin Sod,Pork in 0.45% 63.506 NaCl 25,000 unit In 0.45 % NaCl 1 250ml.bag @ 12 UNITS/KG/HR 9.362 mls/hr IV .Q24H [facility] Rx#: [id number] Oral 0 Output: Urine 150 500 Other: Voiding Method Urinal Weight 78.018 kg PHYSICAL EXAM: VITAL SIGNS: As above GENERAL: Sitting up in bed, no acute distress HEENT: Conjunctivae normal. eyes normal. Oral mucosa moist NECK: No JVD. No thyroid enlargement. CARDIOVASCULAR: S1, S2 regular. No murmur RESPIRATION: Breath sounds diminished in the bases with expiratory wheezing. No rhonchi or crackles. ABDOMEN: Soft, nontender . No guarding. no masses palpable.Bowel sounds heard. LEGS: No edema. no swelling PSYCHIATRY: Alert and oriented X3, mood and affect normal. NERVOUS SYSTEM: Cranial N 2-12 grossly normal.No focal deficits. Strength and sensation grossly intact. Skin: Warm and dry, no rash Results CBC & Chem 7: 04/11/22 14:40 04/11/22 14:40 Labs: Abnormal Lab Results - Last 24 Hours (Table) 04/11/22 04/11/22 04/11/22 Range/Units 14:40 14:40 14:40 Lymphocytes # 0.8 L (1.0-4.8) k/uL APTT (22.0-30.0) sec VBG pCO2 (37-51) mmHg VBG HCO3 (24-28) mmol/L Chloride 96 L (98-107) mmol/L Carbon Dioxide 40 H (22-30) mmol/L Creatinine 0.55 L (0.66-1.25) mg/dL Glucose 101 H (74-99) mg/dL POC Glucose (mg/dL) (70-110) mg/dL Calcium 8.0 L (8.4-10.2) mg/dL Troponin I 0.120 H* (0.000-0.034) ng/mL 04/11/22 04/11/22 04/11/22 Range/Units 17:04 17:50 21:28 Lymphocytes # (1.0-4.8) k/uL APTT (22.0-30.0) sec VBG pCO2 86 H* (37-51) mmHg VBG HCO3 44 H (24-28) mmol/L Chloride (98-107) mmol/L Carbon Dioxide (22-30) mmol/L Creatinine (0.66-1.25) mg/dL Glucose (74-99) mg/dL POC Glucose (mg/dL) 266 H (70-110) mg/dL Calcium (8.4-10.2) mg/dL Troponin I 0.115 H* (0.000-0.034) ng/mL 04/11/22 04/12/22 04/12/22 Range/Units 23:13 06:07 08:00 Lymphocytes # (1.0-4.8) k/uL APTT 33.0 H 41.0 H (22.0-30.0) sec VBG pCO2 (37-51) mmHg VBG HCO3 (24-28) mmol/L Chloride (98-107) mmol/L Carbon Dioxide (22-30) mmol/L Creatinine (0.66-1.25) mg/dL Glucose (74-99) mg/dL POC Glucose (mg/dL) 146 H (70-110) mg/dL Calcium (8.4-10.2) mg/dL Troponin I (0.000-0.034) ng/mL Thrombosis Risk Factor Assmnt - Choose All That Apply Any of the Below Risk Factors Present?: Yes Each Factor Represents 1 point: Abnormal pulmonary function (COPD), Obesity (BMI >25) Each Risk Factor Represents 2 Points: Age 61-74 years, Malignancy Thrombosis Risk Factor Assessment Total Risk Factor Score: 6 Thrombosis Risk Factor Assessment Level: High Risk Assessment and Plan Assessment: Acute COPD exacerbation in a patient with history of severe COPD Chronic hypoxic, hypercapnic respiratory failure Laryngeal carcinoma, received 3/21 treatments of radiation to date. Elevated troponin,NSTEMI, cardiology following CAD Hypertension Hyperlipidemia Ongoing nicotine dependence Autoimmune disease, follows with both Dr. 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 Aggressive pulmonary toileting, nebulized bronchodilators, IV steroids,LABA, antibiotics. Echo and repeat troponin pending. Cardiology, pulmonary, oncology consults in place, recommendations pending. The impression and plan of care has been dictated as directed. : I performed a history and examination of this patient, discussed the same with the dictator. I agree with the dictator's note ,documented as a scribe. Any additional findings or plans will be noted.
[2022-04-12 16:25] LABS: Glucose,Whole Blood 118 mg/dL (70-110)
--- NOTE | 2022-04-12 18:41 | P.CONS ---
History of Present Illness - Reason for Consult Consult date: 04/12/22 Laryngeal Carcinoma Requesting physician: Stella Weinberg - History of Present Illness Mister Olivo is a pleasant male patient of Dr. Cordon, seen by Dr. Barrera for mastoiditis. He also had hoarseness 3 months. Laryngoscopy 03/02/22 was positive for a lesion on the right anterior vocal cord. Biopsy positive for well to moderately differentiated invasive squamous cell carcinoma. MRI neck and ear, no evidence of lymphadenopathy. Early stage malignancy definitive radiation planned. Patient has had 3 radiation treatments with per week at [facility]. Patient was recommended to have chest CT screening for lung cancer due to a 60 year history of heavy smoking. Patient came to the ER complaints of shortness of breath, sore throat. He denied fevers, chills, mild oral irritation, throat is sore, hurts to swallow, no substernal or radiating chest pain, hemoptysis, pleuritic chest pain, abdominal pain or cramping, acute changes in bowel or bladder habits, swelling in the lower extremities, rash. He has no skin changes from radiation yet. He has had 3 radiation treatments. Review of Systems 10 point ROS is neg except as stated in HPI Past Medical History Past Medical History: Coronary Artery Disease (CAD), Cancer, COPD, GERD/Reflux, Hearing Disorder / Deafness, Hyperlipidemia, Hypertension, Pneumonia, Vascular Disorder Additional Past Medical History / Comment(s): Severe COPD, history of autoimmune disease had work up by Dr. Goins and [facility]-never received specifics about the disease type, aortic aneurysm with repair, thoracolumbar pain/T4 fracture with recent surgery, current nephrolithiasis-has passed stones on his own in the past, bilateral leg cramps, left eardrum perforation/[place]. Currently has Laryngeal cancer being treated with radiation. History of Any Multi-Drug Resistant Organisms: Other MDRO Past Surgical History: Appendectomy, Back Surgery, Ear Surgery, Heart Catheterization, Hernia Repair Additional Past Surgical History / Comment(s): 06/29/19 T4 kyphoplasty, End ovascular stent grafting of a abdominal aortic aneurysm. Facial reconstructive surgery. L ear surgery-myringotomy. Umbilical hernia. Colonoscopy-benign polypectomy. R cataract removed with lens. L eye had glass removed and lens placed. Past Anesthesia/Blood Transfusion Reactions: No Reported Reaction Additional Past Anesthesia/Blood Transfusion Reaction / Comm: Pt has never recieved blood. Past Psychological History: No Psychological Hx Reported Additional Psychological History / Comment(s): Pt resides with his spouse. 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 Pt uses no assistive device. He drives. Smoking Status: Current every day smoker Past Alcohol Use History: Occasional Additional Past Alcohol Use History / Comment(s): Pt started smoking in 1961. Pt states he is down to 2cigarettes a day, from 2ppd and has not soked at all in past 2 days. Past Drug Use History: None Reported - Past Family History Brother(s) Family Medical History: Cancer, Fibromyalgia Additional Family Medical History / Comment(s): Brother of lung cancer at the age of 42 yrs. He was a smoker. Sister(s) Family Medical History: Cancer, Fibromyalgia Additional Family Medical History / Comment(s): Sister of lung cancer. She was a smoker. Father Family Medical History: Myocardial Infarction (MD) Additional Family Medical History / Comment(s): Father at age 75 yrs of a MD Mother Family Medical History: Cancer Additional Family Medical History / Comment(s): Mother of metastatic cancer (unknown primary) at age 42 yrs. Medications and Allergies Home Medications Medication Instructions Recorded Confirmed Type Atorvastatin [Lipitor] 80 mg PO HS 05/04/18 04/11/22 History lisinopriL [Zestril] 20 mg PO BID 03/04/19 04/11/22 History amLODIPine [Norvasc] 5 mg PO BID 06/25/19 04/11/22 History Albuterol Nebulized [Ventolin 2.5 mg INHALATION RT-QID PRN 03/06/20 04/11/22 History Nebulized] Albuterol Sulfate [Ventolin HFA] 2 puff INHALATION RT-QID PRN 03/06/20 04/11/22 History SILVER sulfADIAZINE CREAM 1 applic TOPICAL BID 03/06/20 04/11/22 History [Silvadene Cream] Ergocalciferol (Vitamin D2) 1,250 mcg PO MO 04/11/22 04/11/22 History [Drisdol (50,000 Iu)] Tamsulosin HCl [Flomax] 0.4 mg PO DAILY 04/11/22 04/11/22 History Allergies Allergy/AdvReac Type Severity Reaction Status Date / Time Penicillins Allergy Rash/Hives Verified 04/11/22 16:48 gabapentin AdvReac Hallucinati Verified 04/11/22 16:48 ons/AMS Physical Exam Vitals: Vital Signs Temp Pulse Pulse Resp BP BP Pulse Ox 04/12/22 09:04 71 04/12/22 08:55 70 04/12/22 04:29 72 04/12/22 04:17 68 04/12/22 04:13 97.8 F 62 20 123/77 90 L 04/12/22 00:10 94 L 04/12/22 00:08 70 04/12/22 00:00 98.4 F 83 18 123/75 94 L 04/11/22 23:56 80 91 L 04/11/22 20:00 97.6 F 78 20 155/93 91 L 04/11/22 19:11 75 04/11/22 18:59 75 04/11/22 17:47 88 16 160/98 92 L 04/11/22 15:10 75 22 04/11/22 14:56 74 22 04/11/22 14:20 22 04/11/22 14:10 97.8 F 88 24 167/102 91 L FiO2 04/12/22 09:04 04/12/22 08:55 04/12/22 04:29 04/12/22 04:17 04/12/22 04:13 04/12/22 00:10 35 04/12/22 00:08 04/12/22 00:00 04/11/22 23:56 04/11/22 20:00 04/11/22 19:11 04/11/22 18:59 04/11/22 17:47 04/11/22 15:10 04/11/22 14:56 04/11/22 14:20 04/11/22 14:10 Intake and Output 04/11/22 04/12/22 04/12/22 22:59 06:59 14:59 Intake Total 63.506 0 Output Total 150 500 Balance -86.494 -500 Intake: Intake, IV Titration 63.506 Amount Heparin Sod,Pork in 0.45% 63.506 NaCl 25,000 unit In 0.45 % NaCl 1 250ml.bag @ 12 UNITS/KG/HR 9.362 mls/hr IV .Q24H [facility] Rx#: [id number] Oral 0 Output: Urine 150 500 Other: Weight 78.018 kg - Constitutional General appearance: average body habitus, cooperative, no acute distress - EENT Eyes: anicteric sclerae, EOMI ENT: hearing grossly normal, normal oropharynx - Neck Neck: no lymphadenopathy - Respiratory Respiratory: bilateral: rales (Few scattered) - Cardiovascular Rhythm: regular Heart sounds: normal: S1, S2 Abnormal Heart Sounds: no systolic murmur, no diastolic murmur, no rub, no S3 Gallop, no S4 Gallop, no click, no other leg Peripheral Edema: bilateral: None - Gastrointestinal General gastrointestinal: no absent bowel sounds, no decreased bowel sounds, no distended, no hepatomegaly, no hyperactive bowel sounds, normal bowel sounds, no organomegaly, no rigid, no scaphoid, soft, no splenomegaly, no tenderness, no umbilical hernia, no ventral hernia - Integumentary Integumentary: normal - Neurologic Neurologic: CNII-XII intact - Musculoskeletal Musculoskeletal: strength equal bilaterally - Psychiatric Psychiatric: A&O x's 3, appropriate affect, intact judgment & insight Results CBC & Chem 7: 04/11/22 14:40 04/11/22 14:40 Labs: Abnormal Lab Results - Last 24 Hours (Table) 04/11/22 04/11/22 04/11/22 Range/Units 14:40 14:40 14:40 Lymphocytes # 0.8 L (1.0-4.8) k/uL APTT (22.0-30.0) sec VBG pCO2 (37-51) mmHg VBG HCO3 (24-28) mmol/L Chloride 96 L (98-107) mmol/L Carbon Dioxide 40 H (22-30) mmol/L Creatinine 0.55 L (0.66-1.25) mg/dL Glucose 101 H (74-99) mg/dL POC Glucose (mg/dL) (70-110) mg/dL Calcium 8.0 L (8.4-10.2) mg/dL Troponin I 0.120 H* (0.000-0.034) ng/mL 04/11/22 04/11/22 04/11/22 Range/Units 17:04 17:50 21:28 Lymphocytes # (1.0-4.8) k/uL APTT (22.0-30.0) sec VBG pCO2 86 H* (37-51) mmHg VBG HCO3 44 H (24-28) mmol/L Chloride (98-107) mmol/L Carbon Dioxide (22-30) mmol/L Creatinine (0.66-1.25) mg/dL Glucose (74-99) mg/dL POC Glucose (mg/dL) 266 H (70-110) mg/dL Calcium (8.4-10.2) mg/dL Troponin I 0.115 H* (0.000-0.034) ng/mL 04/11/22 04/12/22 04/12/22 Range/Units 23:13 06:07 08:00 Lymphocytes # (1.0-4.8) k/uL APTT 33.0 H 41.0 H (22.0-30.0) sec VBG pCO2 (37-51) mmHg VBG HCO3 (24-28) mmol/L Chloride (98-107) mmol/L Carbon Dioxide (22-30) mmol/L Creatinine (0.66-1.25) mg/dL Glucose (74-99) mg/dL POC Glucose (mg/dL) 146 H (70-110) mg/dL Calcium (8.4-10.2) mg/dL Troponin I (0.000-0.034) ng/mL Comments: Echo report reviewed Chest x-ray: report reviewed Assessment and Plan (1) Laryngeal cancer Current Visit: Yes Status: Acute Priority: Medium Code(s): C32.9 - MALIGNANT NEOPLASM OF LARYNX, UNSPECIFIED SNOMED Code(s): 137900187 Plan: In regards to patient's early stage, well diff laryngeal cancer, he will resume definitive radiation therapy with Dr. Rios once he is discharged. Agree with Internal Medicine plan for treating patients presenting complaints. Supportive medications added for treatment of irritated throat 2/2 radiation.
[2022-04-12] MEDS ORDERED: MAG HYDROX/AL HYDROX/SIMETH 30 ML, LIDOCAINE VISCOUS 2% 30 ML, diphenhydrAMINE ELIXIR 7... PO SCH ×4 (18:45)
[2022-04-12] MEDS: SYMBICORT 160-4.5 MCG INHALER INHALATION SCH (19:23)
[2022-04-12 19:52] LABS: Glucose,Whole Blood 162 mg/dL (70-110)
[2022-04-12] MEDS ORDERED: dexAMETHasone ORAL SOLUTION 10 MG/ML VIAL PO SCH (20:00)
[2022-04-12] MEDS: ATORVASTATIN 80 MG TAB PO SCH (20:33)
[2022-04-12] MEDS: MAG HYDROX/AL HYDROX/SIMETH 30 ML, LIDOCAINE VISCOUS 2% 30 ML, diphenhydrAMINE ELIXIR 7... PO SCH ×4 (20:34)
[2022-04-13] MEDS: IPRATROPIUM-ALBUTEROL 3 ML NEB INHALATION PRN (00:10)
[2022-04-13] MEDS: methylPREDNISolone SOD SUCCI 125 MG/2 ML VIAL IV SCH ×4 (00:11→16:40)
[2022-04-13] MEDS: DEXAMETHASONE SOD PHOSPHATE 10 MG/ML 1 ML VIAL PO SCH ×4 (00:12→21:46)
[2022-04-13] MEDS: ALBUTEROL NEBULIZED 2.5 MG/3 ML INHALATION SCH (00:47)
[2022-04-13] MEDS: IPRATROPIUM-ALBUTEROL 3 ML NEB INHALATION SCH ×5 (04:06→19:46)
[2022-04-13 06:11] LABS: Glucose,Whole Blood 150 mg/dL (70-110)
[2022-04-13] MEDS: INSULIN ASPART (NovoLOG) 100 UNIT/ML VIAL SQ SCH ×4 (06:23→21:34)
[2022-04-13] MEDS: SYMBICORT 160-4.5 MCG INHALER INHALATION SCH ×2 (08:30→19:46)
[2022-04-13] MEDS: AMOXIC-POT CLAV 875-125MG 1 EACH TAB PO SCH ×2 (08:35→21:34)
[2022-04-13] MEDS: METOPROLOL SUCCINATE (ER) 25 MG TAB.ER.24H PO SCH (08:36)
[2022-04-13] MEDS: TAMSULOSIN 0.4 MG CAP.ER.24H PO SCH (08:36)
[2022-04-13] MEDS: MAG HYDROX/AL HYDROX/SIMETH 30 ML, LIDOCAINE VISCOUS 2% 30 ML, diphenhydrAMINE ELIXIR 7... PO SCH ×12 (08:36→21:44)
[2022-04-13] MEDS: amLODIPine 5 MG TAB PO SCH ×2 (08:36→21:34)
[2022-04-13] MEDS: ASPIRIN 81 MG PO SCH (08:36)
[2022-04-13] MEDS: lisinopriL 20 MG TAB PO SCH ×2 (08:36→21:34)
[2022-04-13 11:45] LABS: Glucose,Whole Blood 140 mg/dL (70-110)
[2022-04-13] MEDS: HEPARIN SOD,PORK IN 0.45% NACL 25,000 UNIT in 0.45% NACL 1 250ML.BAG IV SCH (13:12)
--- NOTE | 2022-04-13 14:15 | P.PN ---
Subjective Progress Note Date: 04/13/22 Principal diagnosis: Acute exacerbation of COPD This is a 71-year-old white male with history of multiple medical problems including severe COPD, tobacco dependence syndrome, hypertension, nonocclusive coronary artery disease, patient normally sees Dr. Gonzalez on outpatient basis for his underlying COPD. The last time he saw him was few months ago. Patient is maintained on multiple bronchodilators including Trelegy Ellipta, albuterol, DuoNeb updrafts 4 times a day and when necessary. Patient was recently discovered to have laryngeal cancer, and has been receiving radiation treatment by Dr. Rios at [facility]. Patient received a total of 3 doses out of 21 doses so far. Over the last few days, patient has been noticing cough wheezing shortness of breath, cough is productive with yellow phlegm, no hemoptysis, denies any fever or chills, denies any chest pain. Patient has been using more oxygen at home, nonetheless his shortness of breath has become a bit more pronounced. Hence he decided to come to the ER. Workup included so far chest x-ray , showed no evidence of active pulmonary disease. He did have chronic scattered senescent parenchymal changes and hyperinflation compatible with COPD, CBC was normal. He CO2 was noted to be elevated on a venous blood gases pCO2 of 86. His bicarb is 40. And the contemplative of chronic respirato ry acidosis with metabolic compensation. Patient had a relatively normal electrolytes and normal renal profile otherwise. Troponin was at the time of the day and and his BNP level was also noted to be elevated at 8600, again his chest x-ray showed no evidence of pulmonary edema or infiltrate patient was admitted, he is on oral Augmentin, is also on DuoNeb updrafts 4 times a day and when necessary, Solu-Medrol and I added Symbicort Reevaluated today on 04/13/22, patient is basically about the same. Continues to have shortness of breath, intermittent cough and wheezing, his COPD exacerbation remains active, patient is on bronchodilators, antibiotics, and steroids, not quite ready for discharge planning. Objective - Vital Signs Vital signs: Vital Signs Temp 98.2 F 04/13/22 13:37 Pulse 82 04/13/22 13:37 Resp 20 04/13/22 13:37 BP 127/65 04/13/22 13:37 Pulse Ox 92 L 04/13/22 13:37 FiO2 35 04/13/22 00:10 Intake & Output 04/12/22 04/13/22 04/13/22 18:59 06:59 18:59 Intake Total 879.613 259.779 Output Total 1000 260 Balance -120.387 -260 259.779 Intake: IV 10 Invasive Line 1 10 Intake, IV Titration 221.613 249.779 Amount Heparin Sod,Pork in 0.45% 221.613 249.779 NaCl 25,000 unit In 0.45 % NaCl 1 250ml.bag @ 12 UNITS/KG/HR 9.362 mls/hr IV .Q24H [facility] Rx#: [id number] Oral 658 Output: Urine 1000 260 Other: Voiding Method Urinal Urinal Urinal - Exam Physical Exam: Revealed 71-year-old white male in no distress. On 6 L nasal cannula. Head: Atraumatic, normocephalic. HEENT:[Neck is supple.] [No neck masses.] [No thyromegaly.] [No JVD.] H oarseness is noted Chest: Scattered rhonchi and wheezes noted bilaterally.. Cardiac Exam: [Normal S1 and S2, no S3 gallop, no murmur.] Abdomen: [Soft, nontender, no megaly, no rebound, no guarding, normal bowel sounds.] Extremities: [No clubbing, no edema, no cyanosis.] Neurological Exam: [No focal neurologic deficit.] Alert oriented 3. Psychiatric: Normal mood affect and normal mental status examination. Skin: No rashes. Musculoskeletal: No deformities and no limitation of range of motion - Labs CBC & Chem 7: 04/11/22 14:40 04/11/22 14:40 Labs: Abnormal Lab Results - Last 24 Hours (Table) 04/12/22 04/12/22 04/12/22 Range/Units 16:23 17:38 17:38 APTT 42.7 H (22.0-30.0) sec POC Glucose (mg/dL) 118 H (70-110) mg/dL Troponin I 0.050 H* (0.000-0.034) ng/mL 04/12/22 04/13/22 04/13/22 Range/Units 19:51 00:52 06:10 APTT 61.5 H (22.0-30.0) sec POC Glucose (mg/dL) 162 H 150 H (70-110) mg/dL Troponin I (0.000-0.034) ng/mL 04/13/22 04/13/22 Range/Units 07:21 11:42 APTT 55.2 H (22.0-30.0) sec POC Glucose (mg/dL) 140 H (70-110) mg/dL Troponin I (0.000-0.034) ng/mL Microbiology - Last 24 Hours (Table) 04/11/22 14:47 Blood Culture - Preliminary Blood No Growth after 24 hours 04/11/22 14:30 Blood Culture - Preliminary Blood No Growth after 24 hours Assessment and Plan Assessment: Impression: Acute exacerbation of COPD Chronic hypoxic and chronic hypercapnic respiratory failure Laryngeal carcinoma, patient is undergoing radiation therapy Acute purulent tracheobronchitis Nonocclusive coronary artery disease based on previous cardiac catheterization in 2017 Abdominal aortic aneurysm benign essential hypertension Tobacco dependence syndrome Dyslipidemia Benign essential hypertension Recommendation: Continue bronchodilators. Agree with Solu-Medrol Continue Augmentin. Continue oxygen Continue Symbicort Not quite ready for discharge planning Will follow. Time with Patient: Less than 30
--- NOTE | 2022-04-13 14:19 | P.PN ---
Subjective HISTORY OF PRESENT ILLNESS: This is a 69-year old male with a past medical history significant for mild coronary artery disease, hypertension, hype rlipidemia, and COPD. Patient follows in the office with Dr. Jack. We have been asked to see the patient in consultation for elevated troponin. Patient unfortunately was diagnosed with throat/septic deal cancer and just started radiation and is received his third dose of 21. No plans for any surgery. Unfortunately over the last few days he has been having worsened shortness of breath. Normally he does use oxygen at home and try to increase his oxygen however still struggling to breathe and therefore called EMS and presented to emergency department. He denies any chest tightness, pressure. Denies any lightheadedness. He does have trace left greater than right lower extremity edema. EKG shows sinus rhythm with PVCs with T-wave inversions V1 through V4. Blood work shows white blood cells 7.3, hemoglobin 13.6, creatinine 0.5, troponin 0.12, 0.11. Patient underwent cardiac cath in February [address] Jack revealing mild triple vessel disease with 20-30% lesion of the circumflex and 20% of the RCA. 04/13 Patient seen and examined. Patient denies any chest pain or pressure. He is still coughing up some sputum. Overall he is feeling better. Echocardiogram reviewed with EF 55-60%. PHYSICAL EXAM: VITAL SIGNS: Reviewed. GENERAL: Well-developed in no acute distress. HEENT: Head is normocephalic. Pupils are equal, round. Sclerae anicteric. Mucous membranes of the mouth are moist. Neck supple. No JVD or thyromegaly LUNGS: Respirations even and unlabored. Lungs diminished. HEART: Regular rate and rhythm. S1 and S2 heard. ABDOMEN: Soft. Nondistended. Nontender. EXTREMITIES: Normal range of motion. No clubbing or cyanosis. Peripheral pulses intact. No lower extremity edema NEUROLOGIC: Awake and alert. Oriented x 3. ASSESSMENT: NSTEMI, possible Type 1 vs Type 2 related to hypoxic respiratory failure Nonobstructive coronary artery disease from prior cath 2017 Acute on chronic respiratory failure COPD Hypertension Hyperlipidemia Nicotine dependence Recent diagnosis of esophageal cancer, s/p 3 rounds of radiation PLAN: Continue aspirin, low dose metoprolol Echocardiogram shows preserved EF and most of symptoms appear more related to COPD. Continue with current medical therapy and may consider outpatient stress testing. Continue treatment of COPD Objective - Vital Signs Vital signs: Vital Signs Temp 98.2 F 04/13/22 13:37 Pulse 82 04/13/22 13:37 Resp 20 04/13/22 13:37 BP 127/65 04/13/22 13:37 Pulse Ox 92 L 04/13/22 13:37 FiO2 35 04/13/22 00:10 Intake & Output 04/12/22 04/13/22 04/13/22 18:59 06:59 18:59 Intake Total 879.613 259.779 Output Total 1000 260 Balance -120.387 -260 259.779 Intake: IV 10 Invasive Line 1 10 Intake, IV Titration 221.613 249.779 Amount Heparin Sod,Pork in 0.45% 221.613 249.779 NaCl 25,000 unit In 0.45 % NaCl 1 250ml.bag @ 12 UNITS/KG/HR 9.362 mls/hr IV .Q24H [facility] Rx#: [id number] Oral 658 Output: Urine 1000 260 Other: Voiding Method Urinal Urinal Urinal - Labs CBC & Chem 7: 04/11/22 14:40 04/11/22 14:40 Labs: Abnormal Lab Results - Last 24 Hours (Table) 04/12/22 04/12/22 04/12/22 Range/Units 16:23 17:38 17:38 APTT 42.7 H (22.0-30.0) sec POC Glucose (mg/dL) 118 H (70-110) mg/dL Troponin I 0.050 H* (0.000-0.034) ng/mL 04/12/22 04/13/22 04/13/22 Range/Units 19:51 00:52 06:10 APTT 61.5 H (22.0-30.0) sec POC Glucose (mg/dL) 162 H 150 H (70-110) mg/dL Troponin I (0.000-0.034) ng/mL 04/13/22 04/13/22 Range/Units 07:21 11:42 APTT 55.2 H (22.0-30.0) sec POC Glucose (mg/dL) 140 H (70-110) mg/dL Troponin I (0.000-0.034) ng/mL Microbiology - Last 24 Hours (Table) 04/11/22 14:47 Blood Culture - Preliminary Blood No Growth after 24 hours 04/11/22 14:30 Blood Culture - Preliminary Blood No Growth after 24 hours
[2022-04-13 16:36] LABS: Glucose,Whole Blood 156 mg/dL (70-110)
--- NOTE | 2022-04-13 17:50 | P.PN ---
Subjective Progress Note Date: 04/13/22 H&P Date: 04/12/22 Chief Complaint: Worsening shortness of breath, throat tightness This is a 71-year-old gentleman with past medical history of recently diagnosed laryngeal cancer -receiving radiation treatments (3 txs) by Dr. Rios at [facility], severe COPD, nicotine dependence, CAD, hypertension and multiple other medical issues, presented to the ER with worsening shortness of breath, increased oxygen requirement, wheezing, productive cough with yellow phlegm and "neck tightness". Chest x-ray reported no acute pulmonary disease. Afebrile, normal WBC, venous blood gases reporting pCO2 of 86, bicarb 40, sodium 137, potassium 4.5 stable renal function, blood sugars in the 200s, lactic acid 0.8, magnesium 1.9, troponin 0.115. 04/13/2022 maintained on nebulized bronchodilators, steroids, antibiotics ,maintaining O2 sats in the low 90s on 4 L nasal cannula. echo reported normal LV function. Objective - Vital Signs Vital signs: Vital Signs Temp 98.2 F 04/13/22 13:37 Pulse 78 04/13/22 15:48 Resp 20 04/13/22 13:37 BP 127/65 04/13/22 13:37 Pulse Ox 92 L 04/13/22 15:40 FiO2 35 04/13/22 00:10 Intake & Output 04/12/22 04/13/22 04/13/22 18:59 06:59 18:59 Intake Total 879.613 259.779 Output Total 1000 260 Balance -120.387 -260 259.779 Intake: IV 10 Invasive Line 1 10 Intake, IV Titration 221.613 249.779 Amount Heparin Sod,Pork in 0.45% 221.613 249.779 NaCl 25,000 unit In 0.45 % NaCl 1 250ml.bag @ 12 UNITS/KG/HR 9.362 mls/hr IV .Q24H [facility] Rx#: [id number] Oral 658 Output: Urine 1000 260 Other: Voiding Method Urinal Urinal Urinal - Exam PHYSICAL EXAM: VITAL SIGNS: As above GENERAL: Sitting up in bed, no acute distress HEENT: Conjunctivae normal. eyes normal. Oral mucosa moist NECK: No JVD. No thyroid enlargement. CARDIOVASCULAR: S1, S2 regular. No murmur RESPIRATION: Breath sounds diminished in the bases with scattered rhonchi, expiratory wheezing. ABDOMEN: Soft, nontender . No guarding. no masses palpable.Bowel sounds heard. LEGS: Left lower calf dressing clean dry and intact, No edema. no swelling PSYCHIATRY: Alert and oriented X3, mood and affect normal. NERVOUS SYSTEM: Cranial N 2-12 grossly normal.No focal deficits. Strength and sensation grossly intact. Skin: Warm and dry - Labs CBC & Chem 7: 04/11/22 14:40 04/11/22 14:40 Labs: Abnormal Lab Results - Last 24 Hours (Table) 04/12/22 04/12/22 04/12/22 Range/Units 17:38 17:38 19:51 APTT 42.7 H (22.0-30.0) sec POC Glucose (mg/dL) 162 H (70-110) mg/dL Troponin I 0.050 H* (0.000-0.034) ng/mL 04/13/22 04/13/22 04/13/22 Range/Units 00:52 06:10 07:21 APTT 61.5 H 55.2 H (22.0-30.0) sec POC Glucose (mg/dL) 150 H (70-110) mg/dL Troponin I (0.000-0.034) ng/mL 04/13/22 04/13/22 Range/Units 11:42 16:34 APTT (22.0-30.0) sec POC Glucose (mg/dL) 140 H 156 H (70-110) mg/dL Troponin I (0.000-0.034) ng/mL Microbiology - Last 24 Hours (Table) 04/11/22 14:30 Blood Culture - Preliminary Blood No Growth after 48 hours 04/11/22 14:47 Blood Culture - Preliminary Blood No Growth after 48 hours Assessment and Plan Assessment: Acute COPD exacerbation in a patient with history of severe COPD Chronic hypoxic, hypercapnic respiratory failure Laryngeal carcinoma, received 3/21 treatments of radiation to date. Elevated troponin,NSTEMI, cardiology following CAD Hypertension Hyperlipidemia Ongoing nicotine dependence Autoimmune disease, follows with both Dr. Goins and Anil Lara youtuber OP History of Abdominal aortic aneurysm, outpatient monitoring Plan: Continue on current medication regime ,monitoring and symptomatic treatment. Maintain aggressive pulmonary toileting, nebulized bronchodilators, IV steroids,LABA, antibiotics. The impression and plan of care has been dictated as directed. : I performed a history and examination of this patient, discussed the same with the dictator. I agree with the dictator's note ,documented as a scribe. Any additional findings or plans will be noted.
[2022-04-13 19:49] LABS: Glucose,Whole Blood 196 mg/dL (70-110)
[2022-04-13] MEDS: ACETAMINOPHEN TAB 500 MG TAB PO PRN (21:34)
[2022-04-13] MEDS: ATORVASTATIN 80 MG TAB PO SCH (21:34)
[2022-04-14] MEDS: IPRATROPIUM-ALBUTEROL 3 ML NEB INHALATION SCH ×7 (00:08→23:34)
[2022-04-14] MEDS: methylPREDNISolone SOD SUCCI 125 MG/2 ML VIAL IV SCH ×5 (00:46→23:31)
[2022-04-14 06:08] LABS: Glucose,Whole Blood 140 mg/dL (70-110)
[2022-04-14] MEDS: INSULIN ASPART (NovoLOG) 100 UNIT/ML VIAL SQ SCH ×4 (06:12→20:12)
[2022-04-14] MEDS: SYMBICORT 160-4.5 MCG INHALER INHALATION SCH ×2 (08:15→20:06)
[2022-04-14 08:40] LABS: Basophils % (A) 0 %; Eosinophils % (A) 0 %; HCT 40.6 % (39.0-53.0); Lymphocytes # (A) 0.2 k/uL (1.0-4.8); Lymphocytes % (A) 2 %; MCH 29.5 pg (25.0-35.0); MCV 92.1 fL (80.0-100.0); Mean Platelet Volume 8.7; Monocytes # (A) 0.5 k/uL (0-1.0); Monocytes % (A) 5 %; Neutrophils # (A) 9.6 k/uL (1.3-7.7); Neutrophils % (A) 92 %; Platelet Count 213 k/uL (150-450); RBC 4.41 m/uL (4.30-5.90); RDW 13.4 % (11.5-15.5); WBC 10.4 k/uL (3.8-10.6)
[2022-04-14 08:50] LABS: African American GFR (CKD) >90 (>60 ml/min/1.73 sqM); Blood Urea Nitrogen 39 mg/dL (9-20); Calcium 8.2 mg/dL (8.4-10.2); Chloride 95 mmol/L (98-107); Glucose 148 mg/dL (74-99); Non-African American GFR(CKD) 81 (>60 ml/min/1.73 sqM); Potassium 4.7 mmol/L (3.5-5.1); Sodium 138 mmol/L (137-145)
[2022-04-14] MEDS: ACETAMINOPHEN TAB 500 MG TAB PO PRN ×2 (08:55→20:08)
[2022-04-14 08:56] LABS: Anion Gap 2 mmol/L
[2022-04-14] MEDS: AMOXIC-POT CLAV 875-125MG 1 EACH TAB PO SCH ×2 (08:56→20:12)
[2022-04-14] MEDS: DEXAMETHASONE SOD PHOSPHATE 10 MG/ML 1 ML VIAL PO SCH (08:56)
[2022-04-14] MEDS: TAMSULOSIN 0.4 MG CAP.ER.24H PO SCH (08:56)
[2022-04-14] MEDS: ASPIRIN 81 MG PO SCH (08:57)
[2022-04-14] MEDS: amLODIPine 5 MG TAB PO SCH ×2 (08:57→20:08)
[2022-04-14] MEDS: lisinopriL 20 MG TAB PO SCH ×2 (08:57→20:08)
[2022-04-14] MEDS: METOPROLOL SUCCINATE (ER) 25 MG TAB.ER.24H PO SCH (08:57)
[2022-04-14 08:58] LABS: Carbon Dioxide 41 mmol/L (22-30)
[2022-04-14] MEDS: MAG HYDROX/AL HYDROX/SIMETH 30 ML, LIDOCAINE VISCOUS 2% 30 ML, diphenhydrAMINE ELIXIR 7... PO SCH ×12 (08:58→21:07)
[2022-04-14 11:45] LABS: Glucose,Whole Blood 157 mg/dL (70-110)
--- NOTE | 2022-04-14 12:12 | P.PN ---
Subjective HISTORY OF PRESENT ILLNESS: This is a 69-year old male with a past medical history significant for mild coronary artery disease, hypertension, hype rlipidemia, and COPD. Patient follows in the office with Dr. Jack. We have been asked to see the patient in consultation for elevated troponin. Patient unfortunately was diagnosed with throat/septic deal cancer and just started radiation and is received his third dose of 21. No plans for any surgery. Unfortunately over the last few days he has been having worsened shortness of breath. Normally he does use oxygen at home and try to increase his oxygen however still struggling to breathe and therefore called EMS and presented to emergency department. He denies any chest tightness, pressure. Denies any lightheadedness. He does have trace left greater than right lower extremity edema. EKG shows sinus rhythm with PVCs with T-wave inversions V1 through V4. Blood work shows white blood cells 7.3, hemoglobin 13.6, creatinine 0.5, troponin 0.12, 0.11. Patient underwent cardiac cath in February [address] Jack revealing mild triple vessel disease with 20-30% lesion of the circumflex and 20% of the RCA. 04/13 Patient seen and examined. Patient denies any chest pain or pressure. He is still coughing up some sputum. Overall he is feeling better. Echocardiogram reviewed with EF 55-60%. 04/14 Patient seen and examined. Patient states he is feeling better day by day. He is coughing up some sputum. Denies any chest pain or pressure. PHYSICAL EXAM: VITAL SIGNS: Reviewed. GENERAL: Well-developed in no acute distress. HEENT: Head is normocephalic. Pupils are equal, round. Sclerae anicteric. Mucous membranes of the mouth are moist. Neck supple. No JVD or thyromegaly LUNGS: Respirations even and unlabored. Lungs diminished. HEART: Regular rate and rhythm. S1 and S2 heard. ABDOMEN: Soft. Nondistended. Nontender. EXTREMITIES: Normal range of motion. No clubbing or cyanosis. Peripheral pulses intact. No lower extremity edema NEUROLOGIC: Awake and alert. Oriented x 3. ASSESSMENT: NSTEMI, likelyType 2 related to hypoxic respiratory failure Nonobstructive coronary artery disease from prior cath 2017 Acute on chronic respiratory failure COPD Hypertension Hyperlipidemia Nicotine dependence Recent diagnosis of esophageal cancer, s/p 3 rounds of radiation PLAN: Continue aspirin, low dose metoprolol Echocardiogram shows preserved EF and most of symptoms appear more related to COPD. Continue with current medical therapy and may consider outpatient stress testing. Continue treatment of COPD Most of symptoms appear related to COPD with improvements with treatment for COPD. Continues improved and no further workup as an inpatient. Outpatient follow-up with possible stress testing. Objective - Vital Signs Vital signs: Vital Signs Temp 98 F 04/14/22 08:00 Pulse 84 04/14/22 11:55 Resp 24 04/14/22 08:00 BP 150/92 04/14/22 08:00 Pulse Ox 93 L 04/14/22 08:15 FiO2 35 04/14/22 11:55 Intake & Output 04/13/22 04/14/22 04/14/22 18:59 06:59 18:59 Intake Total 377.779 240 Output Total 300 300 Balance 77.779 -300 240 Intake: IV 10 Invasive Line 1 10 Intake, IV Titration 249.779 Amount Heparin Sod,Pork in 0.45% 249.779 NaCl 25,000 unit In 0.45 % NaCl 1 250ml.bag @ 12 UNITS/KG/HR 9.362 mls/hr IV .Q24H [facility] Rx#: [id number] Oral 118 240 Output: Urine 300 300 Other: Voiding Method Urinal Urinal Urinal # Voids 1 - Labs CBC & Chem 7: 04/14/22 08:11 04/14/22 08:11 Labs: Abnormal Lab Results - Last 24 Hours (Table) 04/13/22 04/13/22 04/14/22 Range/Units 16:34 19:48 06:06 Neutrophils # (1.3-7.7) k/uL Lymphocytes # (1.0-4.8) k/uL Chloride (98-107) mmol/L Carbon Dioxide (22-30) mmol/L BUN (9-20) mg/dL Glucose (74-99) mg/dL POC Glucose (mg/dL) 156 H 196 H 140 H (70-110) mg/dL Calcium (8.4-10.2) mg/dL 04/14/22 04/14/22 04/14/22 Range/Units 08:11 08:11 11:43 Neutrophils # 9.6 H (1.3-7.7) k/uL Lymphocytes # 0.2 L (1.0-4.8) k/uL Chloride 95 L (98-107) mmol/L Carbon Dioxide 41 H* (22-30) mmol/L BUN 39 H (9-20) mg/dL Glucose 148 H (74-99) mg/dL POC Glucose (mg/dL) 157 H (70-110) mg/dL Calcium 8.2 L (8.4-10.2) mg/dL Microbiology - Last 24 Hours (Table) 04/11/22 14:30 Blood Culture - Preliminary Blood No Growth after 48 hours 04/11/22 14:47 Blood Culture - Preliminary Blood No Growth after 48 hours
--- NOTE | 2022-04-14 12:53 | P.PN ---
Subjective Progress Note Date: 04/14/22 Principal diagnosis: Acute exacerbation of COPD This is a 71-year-old white male with history of multiple medical problems including severe COPD, tobacco dependence syndrome, hypertension, nonocclusive coronary artery disease, patient normally sees Dr. Gonzalez on outpatient basis for his underlying COPD. The last time he saw him was few months ago. Patient is maintained on multiple bronchodilators including Trelegy Ellipta, albuterol, DuoNeb updrafts 4 times a day and when necessary. Patient was recently discovered to have laryngeal cancer, and has been receiving radiation treatment by Dr. Rios at [facility]. Patient received a total of 3 doses out of 21 doses so far. Over the last few days, patient has been noticing cough wheezing shortness of breath, cough is productive with yellow phlegm, no hemoptysis, denies any fever or chills, denies any chest pain. Patient has been using more oxygen at home, nonetheless his shortness of breath has become a bit more pronounced. Hence he decided to come to the ER. Workup included so far chest x-ray , showed no evidence of active pulmonary disease. He did have chronic scattered senescent parenchymal changes and hyperinflation compatible with COPD, CBC was normal. He CO2 was noted to be elevated on a venous blood gases pCO2 of 86. His bicarb is 40. And the contemplative of chronic respirato ry acidosis with metabolic compensation. Patient had a relatively normal electrolytes and normal renal profile otherwise. Troponin was at the time of the day and and his BNP level was also noted to be elevated at 8600, again his chest x-ray showed no evidence of pulmonary edema or infiltrate patient was admitted, he is on oral Augmentin, is also on DuoNeb updrafts 4 times a day and when necessary, Solu-Medrol and I added Symbicort Reevaluated today on 04/13/22, patient is basically about the same. Continues to have shortness of breath, intermittent cough and wheezing, his COPD exacerbation remains active, patient is on bronchodilators, antibiotics, and steroids, not quite ready for discharge planning. Reevaluated today on 04/14/22, continues to have intermittent cough, nonetheless the patient is feeling better today compared to how he felt on the day he came in. Less cough and less wheezing less shortness of breath, remains on bronchodilators, antibiotics, steroids, patient is steadily improving. Chest x- ray on admission showed no evidence of acute pulmonary disease. Labs today were reviewed, normal CBC and normal electrolytes, bicarb is 41. Objective - Vital Signs Vital signs: Vital Signs Temp 98 F 04/14/22 08:00 Pulse 74 04/14/22 12:00 Resp 16 04/14/22 12:00 BP 130/74 04/14/22 12:00 Pulse Ox 95 04/14/22 12:00 FiO2 35 04/14/22 11:55 Intake & Output 04/13/22 04/14/22 04/14/22 18:59 06:59 18:59 Intake Total 377.779 240 Output Total 300 300 Balance 77.779 -300 240 Intake: IV 10 Invasive Line 1 10 Intake, IV Titration 249.779 Amount Heparin Sod,Pork in 0.45% 249.779 NaCl 25,000 unit In 0.45 % NaCl 1 250ml.bag @ 12 UNITS/KG/HR 9.362 mls/hr IV .Q24H [facility] Rx#: [id number] Oral 118 240 Output: Urine 300 300 Other: Voiding Method Urinal Urinal Urinal # Voids 1 - Exam Physical Exam: Revealed 71-year-old white male in no distress. On 35% Ventimask, O2 sat is 95% Head: Atraumatic, normocephalic. HEENT:[Neck is supple.] [No neck masses.] [No thyromegaly.] [No JVD.] Hoarseness is noted Chest: Less crackles and rhonchi noted today compared to the last few days. Cardiac Exam: [Normal S1 and S2, no S3 gallop, no murmur.] Abdomen: [Soft, nontender, no megaly, no rebound, no guarding, normal bowel sounds.] Extremities: [No clubbing, no edema, no cyanosis.] Neurological Exam: [No focal neurologic deficit.] Alert oriented 3. Psychiatric: Normal mood affect and normal mental status examination. Skin: No rashes. Musculoskeletal: No deformities and no limitation of range of motion - Labs CBC & Chem 7: 04/14/22 08:11 04/14/22 08:11 Labs: Abnormal Lab Results - Last 24 Hours (Table) 04/13/22 04/13/22 04/14/22 Range/Units 16:34 19:48 06:06 Neutrophils # (1.3-7.7) k/uL Lymphocytes # (1.0-4.8) k/uL Chloride (98-107) mmol/L Carbon Dioxide (22-30) mmol/L BUN (9-20) mg/dL Glucose (74-99) mg/dL POC Glucose (mg/dL) 156 H 196 H 140 H (70-110) mg/dL Calcium (8.4-10.2) mg/dL 04/14/22 04/14/22 04/14/22 Range/Units 08:11 08:11 11:43 Neutrophils # 9.6 H (1.3-7.7) k/uL Lymphocytes # 0.2 L (1.0-4.8) k/uL Chloride 95 L (98-107) mmol/L Carbon Dioxide 41 H* (22-30) mmol/L BUN 39 H (9-20) mg/dL Glucose 148 H (74-99) mg/dL POC Glucose (mg/dL) 157 H (70-110) mg/dL Calcium 8.2 L (8.4-10.2) mg/dL Microbiology - Last 24 Hours (Table) 04/11/22 14:30 Blood Culture - Preliminary Blood No Growth after 48 hours 04/11/22 14:47 Blood Culture - Preliminary Blood No Growth after 48 hours Assessment and Plan Assessment: Impression: Acute exacerbation of COPD Chronic hypoxic and chronic hypercapnic respiratory failure Laryngeal carcinoma, patient is undergoing radiation therapy Acute purulent tracheobronchitis Nonocclusive coronary artery disease based on previous cardiac catheterization in 2017 Abdominal aortic aneurysm benign essential hypertension Tobacco dependence syndrome Dyslipidemia Benign essential hypertension Recommendation: Continue bronchodilators. Continue steroids. Continue Augmentin. Continue oxygen Continue Symbicort Possible discharge planning in the next 24-48 hours Will follow. Time with Patient: Less than 30
[2022-04-14 16:56] LABS: Glucose,Whole Blood 176 mg/dL (70-110)
[2022-04-14] MEDS: ATORVASTATIN 80 MG TAB PO SCH (20:08)
[2022-04-14 20:16] LABS: Glucose,Whole Blood 114 mg/dL (70-110)
[2022-04-14] MEDS: MORPHINE SULFATE 4 MG/ML SYRINGE IVP PRN (23:31)
[2022-04-15] MEDS: IPRATROPIUM-ALBUTEROL 3 ML NEB INHALATION SCH ×6 (03:12→23:16)
[2022-04-15] MEDS: MORPHINE SULFATE 4 MG/ML SYRINGE IVP PRN ×4 (04:17→21:12)
[2022-04-15 06:11] LABS: Glucose,Whole Blood 143 mg/dL (70-110)
[2022-04-15] MEDS: methylPREDNISolone SOD SUCCI 125 MG/2 ML VIAL IV SCH ×4 (06:17→23:24)
[2022-04-15] MEDS: INSULIN ASPART (NovoLOG) 100 UNIT/ML VIAL SQ SCH ×4 (06:17→21:14)
[2022-04-15 07:18] LABS: African American GFR (CKD) >90 (>60 ml/min/1.73 sqM); Anion Gap 1 mmol/L; Blood Urea Nitrogen 39 mg/dL (9-20); Calcium 7.9 mg/dL (8.4-10.2); Carbon Dioxide 40 mmol/L (22-30); Chloride 98 mmol/L (98-107); Glucose 140 mg/dL (74-99); Non-African American GFR(CKD) 87 (>60 ml/min/1.73 sqM); Potassium 4.4 mmol/L (3.5-5.1); Sodium 139 mmol/L (137-145)
[2022-04-15] MEDS: SYMBICORT 160-4.5 MCG INHALER INHALATION SCH ×2 (08:50→20:38)
[2022-04-15] MEDS: lisinopriL 20 MG TAB PO SCH ×2 (08:57→21:12)
[2022-04-15] MEDS: METOPROLOL SUCCINATE (ER) 25 MG TAB.ER.24H PO SCH (08:57)
[2022-04-15] MEDS: MAG HYDROX/AL HYDROX/SIMETH 30 ML, LIDOCAINE VISCOUS 2% 30 ML, diphenhydrAMINE ELIXIR 7... PO SCH ×12 (08:57→21:13)
[2022-04-15] MEDS: amLODIPine 5 MG TAB PO SCH ×2 (08:57→21:12)
[2022-04-15] MEDS: ASPIRIN 81 MG PO SCH (08:57)
[2022-04-15] MEDS: TAMSULOSIN 0.4 MG CAP.ER.24H PO SCH (08:57)
[2022-04-15] MEDS: AMOXIC-POT CLAV 875-125MG 1 EACH TAB PO SCH ×2 (08:57→21:12)
[2022-04-15 11:54] LABS: Glucose,Whole Blood 149 mg/dL (70-110)
--- NOTE | 2022-04-15 11:56 | P.PN ---
Subjective Progress Note Date: 04/15/22 Principal diagnosis: Acute exacerbation of COPD This is a 71-year-old white male with history of multiple medical problems including severe COPD, tobacco dependence syndrome, hypertension, nonocclusive coronary artery disease, patient normally sees Dr. Gonzalez on outpatient basis for his underlying COPD. The last time he saw him was few months ago. Patient is maintained on multiple bronchodilators including Trelegy Ellipta, albuterol, DuoNeb updrafts 4 times a day and when necessary. Patient was recently discovered to have laryngeal cancer, and has been receiving radiation treatment by Dr. Rios at [facility]. Patient received a total of 3 doses out of 21 doses so far. Over the last few days, patient has been noticing cough wheezing shortness of breath, cough is productive with yellow phlegm, no hemoptysis, denies any fever or chills, denies any chest pain. Patient has been using more oxygen at home, nonetheless his shortness of breath has become a bit more pronounced. Hence he decided to come to the ER. Workup included so far chest x-ray , showed no evidence of active pulmonary disease. He did have chronic scattered senescent parenchymal changes and hyperinflation compatible with COPD, CBC was normal. He CO2 was noted to be elevated on a venous blood gases pCO2 of 86. His bicarb is 40. And the contemplative of chronic respirato ry acidosis with metabolic compensation. Patient had a relatively normal electrolytes and normal renal profile otherwise. Troponin was at the time of the day and and his BNP level was also noted to be elevated at 8600, again his chest x-ray showed no evidence of pulmonary edema or infiltrate patient was admitted, he is on oral Augmentin, is also on DuoNeb updrafts 4 times a day and when necessary, Solu-Medrol and I added Symbicort Reevaluated today on 04/13/22, patient is basically about the same. Continues to have shortness of breath, intermittent cough and wheezing, his COPD exacerbation remains active, patient is on bronchodilators, antibiotics, and steroids, not quite ready for discharge planning. Reevaluated today on 04/14/22, continues to have intermittent cough, nonetheless the patient is feeling better today compared to how he felt on the day he came in. Less cough and less wheezing less shortness of breath, remains on bronchodilators, antibiotics, steroids, patient is steadily improving. Chest x- ray on admission showed no evidence of acute pulmonary disease. Labs today were reviewed, normal CBC and normal electrolytes, bicarb is 41. Reevaluated today on 04/15/22, patient continues to improve, less cough and less wheezing less shortness of breath. Patient is on 4 L nasal cannula, O2 saturation is 96%. Basic metabolic profile today is normal, bicarb is a bit e levated at 40 renal profile is relatively normal lites are normal. Objective - Vital Signs Vital signs: Vital Signs Temp 97.4 F L 04/15/22 08:00 Pulse 86 04/15/22 09:06 Resp 16 04/15/22 08:00 BP 145/85 04/15/22 08:00 Pulse Ox 96 04/15/22 08:52 FiO2 35 04/14/22 15:56 Intake & Output 04/14/22 04/15/22 04/15/22 18:59 06:59 18:59 Intake Total 240 375 Output Total 800 925 Balance -560 -550 Intake: Oral 240 375 Output: Urine 800 925 Other: Voiding Method Urinal Urinal Urinal # Voids 2 - Exam Physical Exam: Revealed 71-year-old white male in no distress. Head: Atraumatic, normocephalic. HEENT:[Neck is supple.] [No neck masses.] [No thyromegaly.] [No JVD.] Hoarseness is noted Chest: Minimal rhonchi on forced expiratory maneuver only. Cardiac Exam: [Normal S1 and S2, no S3 gallop, no murmur.] Abdomen: [Soft, nontender, no megaly, no rebound, no guarding, normal bowel sounds.] Extremities: [No clubbing, no edema, no cyanosis.] Neurological Exam: [No focal neurologic deficit.] Alert oriented 3. Psychiatric: Normal mood affect and normal mental status examination. Skin: No rashes. Musculoskeletal: No deformities and no limitation of range of motion - Labs CBC & Chem 7: 04/14/22 08:11 04/15/22 06:31 Labs: Abnormal Lab Results - Last 24 Hours (Table) 04/14/22 04/14/22 04/15/22 Range/Units 16:55 20:12 06:08 Carbon Dioxide (22-30) mmol/L BUN (9-20) mg/dL Glucose (74-99) mg/dL POC Glucose (mg/dL) 176 H 114 H 143 H (70-110) mg/dL Calcium (8.4-10.2) mg/dL 04/15/22 Range/Units 06:31 Carbon Dioxide 40 H (22-30) mmol/L BUN 39 H (9-20) mg/dL Glucose 140 H (74-99) mg/dL POC Glucose (mg/dL) (70-110) mg/dL Calcium 7.9 L (8.4-10.2) mg/dL Microbiology - Last 24 Hours (Table) 04/11/22 14:30 Blood Culture - Preliminary Blood No Growth after 72 hours 04/11/22 14:47 Blood Culture - Preliminary Blood No Growth after 72 hours Assessment and Plan Assessment: Impression: Acute exacerbation of COPD Chronic hypoxic and chronic hypercapnic respiratory failure Laryngeal carcinoma, patient is undergoing radiation therapy Acute purulent tracheobronchitis Nonocclusive coronary artery disease based on previous cardiac catheterization in 2017 Abdominal aortic aneurysm benign essential hypertension Tobacco dependence syndrome Dyslipidemia Benign essential hypertension Recommendation: Continue bronchodilators. Continue steroids. Continue Augmentin. Continue oxygen Continue Symbicort Discharge patient home in the next 24 hours and follow-up with me on outpatient basis. Will follow.
[2022-04-15 16:48] LABS: Glucose,Whole Blood 128 mg/dL (70-110)
[2022-04-15 19:38] LABS: Glucose,Whole Blood 140 mg/dL (70-110)
[2022-04-15] MEDS: ATORVASTATIN 80 MG TAB PO SCH (21:12)
--- NOTE | 2022-04-15 23:31 | P.PN ---
Subjective Progress Note Date: 04/14/22 This is a 71-year-old gentleman with past medical history of recently diagnosed laryngeal cancer -receiving radiation treatments ([address] txs) by Dr[address] Rios at [facility], severe COPD, nicotine dependence, CAD, hypertension and multiple other medical issues, presented to the ER with worsening shortness of breath, increased oxygen requirement, wheezing, productive cough with yellow phlegm and "neck tightness". Chest x-ray reported no acute pulmonary disease. Afebrile, normal WBC, venous blood gases reporting pCO2 of 86, bicarb 40, sodium 137, potassium 4.5 stable renal function, blood sugars in the 200s, lactic acid 0.8, magnesium 1.9, troponin 0.115. 04/13/2022 maintained on nebulized bronchodilators, steroids, antibiotics ,maintaining O2 sats in the low 90s on 4 L nasal cannula. echo reported normal LV function. 04/14/2022 Patient is currently lying in bed. Awake alert and orient x3. Requiring oxygen at 4 L via nasal cannula. Still having exertional shortness of breath and cough without much sputum production. Wheezing and diffuse rhonchi on exam. Patient is being continued on IV steroids breathing treatments and antibiotics in the form of Augmentin. Pulmonary is on board. Laboratory test showed WBC 10.4 hemoglobin 13.3 and platelets 213 Sodium 138 potassium 4.7 chloride 95 bicarb is 41 BUN 39 and creatinine 0.9. Calcium 8.2. Blood sugars controlled. Current medications reviewed. Objective - Vital Signs Vital signs: Vital Signs Temp 97.8 F 04/14/22 20:00 Pulse 94 04/14/22 20:00 Resp 20 04/14/22 20:00 BP 168/79 04/14/22 20:00 Pulse Ox 90 L 04/14/22 20:00 FiO2 35 04/14/22 15:56 Intake & Output 04/14/22 04/14/22 04/15/22 06:59 18:59 06:59 Intake Total 240 Output Total 300 800 Balance -300 -560 Intake: Oral 240 Output: Urine 300 800 Other: Voiding Method Urinal Urinal # Voids 1 - Exam PHYSICAL EXAM: VITAL SIGNS: As above GENERAL: Sitting up in bed, no acute distress HEENT: Conjunctivae normal. eyes normal. Oral mucosa moist NECK: No JVD. No thyroid enlargement. CARDIOVASCULAR: S1, S2 regular. No murmur RESPIRATION: Breath sounds diminished in the bases with scattered rhonchi, expiratory wheezing. ABDOMEN: Soft, nontender . No guarding. no masses palpable.Bowel sounds heard. LEGS: Left lower calf dressing clean dry and intact, No edema. no swelling PSYCHIATRY: Alert and oriented X3, mood and affect normal. NERVOUS SYSTEM: Cranial N 2-12 grossly normal.No focal deficits. Strength and sensation grossly intact. Skin: Warm and dry - Labs CBC & Chem 7: 04/14/22 08:11 04/15/22 06:31 Labs: Abnormal Lab Results - Last 24 Hours (Table) 04/14/22 04/14/22 04/14/22 Range/Units 06:06 08:11 08:11 Neutrophils # 9.6 H (1.3-7.7) k/uL Lymphocytes # 0.2 L (1.0-4.8) k/uL Chloride 95 L (98-107) mmol/L Carbon Dioxide 41 H* (22-30) mmol/L BUN 39 H (9-20) mg/dL Glucose 148 H (74-99) mg/dL POC Glucose (mg/dL) 140 H (70-110) mg/dL Calcium 8.2 L (8.4-10.2) mg/dL 04/14/22 04/14/22 04/14/22 Range/Units 11:43 16:55 20:12 Neutrophils # (1.3-7.7) k/uL Lymphocytes # (1.0-4.8) k/uL Chloride (98-107) mmol/L Carbon Dioxide (22-30) mmol/L BUN (9-20) mg/dL Glucose (74-99) mg/dL POC Glucose (mg/dL) 157 H 176 H 114 H (70-110) mg/dL Calcium (8.4-10.2) mg/dL Microbiology - Last 24 Hours (Table) 04/11/22 14:30 Blood Culture - Preliminary Blood No Growth after 72 hours 04/11/22 14:47 Blood Culture - Preliminary Blood No Growth after 72 hours Assessment and Plan Assessment: Acute COPD exacerbation in a patient with history of severe COPD Chronic hypoxic, hypercapnic respiratory failure Laryngeal carcinoma, received 3/21 treatments of radiation to date. Elevated troponin,NSTEMI, cardiology following CAD Hypertension Hyperlipidemia Ongoing nicotine dependence Autoimmune disease, follows with both Dr. Goins and Anil Lara store clerk OP History of Abdominal aortic aneurysm, outpatient monitoring Plan: Continue on current medication regime ,monitoring and symptomatic treatment. Maintain aggressive pulmonary toileting, nebulized bronchodilators, IV steroids,LABA, antibiotics. Time with Patient: Greater than 30
--- NOTE | 2022-04-15 23:33 | P.PN ---
Subjective Progress Note Date: 04/15/22 This is a 71-year-old gentleman with past medical history of recently diagnosed laryngeal cancer -receiving radiation treatments ([address] txs) by Dr[address] Rios at [facility], severe COPD, nicotine dependence, CAD, hypertension and multiple other medical issues, presented to the ER with worsening shortness of breath, increased oxygen requirement, wheezing, productive cough with yellow phlegm and "neck tightness". Chest x-ray reported no acute pulmonary disease. Afebrile, normal WBC, venous blood gases reporting pCO2 of 86, bicarb 40, sodium 137, potassium 4.5 stable renal function, blood sugars in the 200s, lactic acid 0.8, magnesium 1.9, troponin 0.115. 04/13/2022 maintained on nebulized bronchodilators, steroids, antibiotics ,maintaining O2 sats in the low 90s on 4 L nasal cannula. echo reported normal LV function. 04/14/2022 Patient is currently lying in bed. Awake alert and orient x3. Requiring oxygen at 4 L via nasal cannula. Still having exertional shortness of breath and cough without much sputum production. Wheezing and diffuse rhonchi on exam. Patient is being continued on IV steroids breathing treatments and antibiotics in the form of Augmentin. Pulmonary is on board. Laboratory test showed WBC 10.4 hemoglobin 13.3 and platelets 213 Sodium 138 potassium 4.7 chloride 95 bicarb is 41 BUN 39 and creatinine 0.9. Calcium 8.2. Blood sugars controlled. 04/15/2022 Patient is resting in bed. Awake alert and oriented. Patient interested better. Less bronchospastic and air entry improved bilaterally. Cough without sputum production. Requiring oxygen 4 L via nasal cannula. No fever no chills. No headache or dizziness or lightheadedness. Laboratory data showed BUN 39 creatinine 0.88 and bicarb is 40. Calcium 7.9. Blood sugars controlled. Current medications reviewed. Objective - Vital Signs Vital signs: Vital Signs Temp 97.4 F L 04/15/22 08:00 Pulse 75 04/15/22 16:06 Resp 16 04/15/22 12:00 BP 142/76 04/15/22 12:00 Pulse Ox 95 04/15/22 15:55 FiO2 35 04/15/22 15:55 Intake & Output 04/14/22 04/15/22 04/15/22 18:59 06:59 18:59 Intake Total 240 375 480 Output Total 800 925 250 Balance -560 -550 230 Intake: Oral 240 375 480 Output: Urine 800 925 250 Other: Voiding Method Urinal Urinal Urinal # Voids 2 - Exam PHYSICAL EXAM: VITAL SIGNS: As above GENERAL: Sitting up in bed, no acute distress HEENT: Conjunctivae normal. eyes normal. Oral mucosa moist NECK: No JVD. No thyroid enlargement. CARDIOVASCULAR: S1, S2 regular. No murmur RESPIRATION: Bibasilar diminished sounds and expiratory wheezing. Scattered rhonchi. Nonlabored breathing.. ABDOMEN: Soft, nontender . No guarding. no masses palpable.Bowel sounds heard. LEGS: Left lower calf dressing clean dry and intact, No edema. no swelling PSYCHIATRY: Alert and oriented X3, mood and affect normal. NERVOUS SYSTEM: Cranial N 2-12 grossly normal.No focal deficits. Strength and sensation grossly intact. Skin: Warm and dry - Labs CBC & Chem 7: 04/14/22 08:11 04/15/22 06:31 Labs: Abnormal Lab Results - Last 24 Hours (Table) 04/14/22 04/14/22 04/15/22 Range/Units 16:55 20:12 06:08 Carbon Dioxide (22-30) mmol/L BUN (9-20) mg/dL Glucose (74-99) mg/dL POC Glucose (mg/dL) 176 H 114 H 143 H (70-110) mg/dL Calcium (8.4-10.2) mg/dL 04/15/22 04/15/22 Range/Units 06:31 11:53 Carbon Dioxide 40 H (22-30) mmol/L BUN 39 H (9-20) mg/dL Glucose 140 H (74-99) mg/dL POC Glucose (mg/dL) 149 H (70-110) mg/dL Calcium 7.9 L (8.4-10.2) mg/dL Microbiology - Last 24 Hours (Table) 04/15/22 09:15 Sputum Culture - Preliminary Sputum 04/11/22 14:30 Blood Culture - Preliminary Blood No Growth after 72 hours 04/11/22 14:47 Blood Culture - Preliminary Blood No Growth after 72 hours Assessment and Plan Assessment: Acute COPD exacerbation in a patient with history of severe COPD Chronic hypoxic, hypercapnic respiratory failure Laryngeal carcinoma, received 3/ treatments of radiation to date. Elevated troponin,NSTEMI, cardiology following CAD Hypertension Hyperlipidemia Ongoing nicotine dependence Autoimmune disease, follows with both Dr. Goins and Anil Lara shaker flatwork OP History of Abdominal aortic aneurysm, outpatient monitoring Plan: Continue on current medication regime ,monitoring and symptomatic treatment. Maintain aggressive pulmonary toileting, nebulized bronchodilators, IV steroids,LABA, antibiotics. Time with Patient: Greater than 30
[2022-04-16] MEDS: IPRATROPIUM-ALBUTEROL 3 ML NEB INHALATION SCH ×3 (03:45→11:40)
[2022-04-16] MEDS: MORPHINE SULFATE 4 MG/ML SYRINGE IVP PRN ×2 (03:53→08:13)
[2022-04-16 04:14] VITALS: TEMP 97.4
[2022-04-16 06:07] LABS: Glucose,Whole Blood 119 mg/dL (70-110)
[2022-04-16] MEDS: INSULIN ASPART (NovoLOG) 100 UNIT/ML VIAL SQ SCH ×2 (06:11→12:07)
[2022-04-16] MEDS: methylPREDNISolone SOD SUCCI 125 MG/2 ML VIAL IV SCH ×2 (06:15→11:30)
[2022-04-16] MEDS: MAG HYDROX/AL HYDROX/SIMETH 30 ML, LIDOCAINE VISCOUS 2% 30 ML, diphenhydrAMINE ELIXIR 7... PO SCH ×4 (08:01)
[2022-04-16] MEDS: amLODIPine 5 MG TAB PO SCH (08:04)
[2022-04-16] MEDS: METOPROLOL SUCCINATE (ER) 25 MG TAB.ER.24H PO SCH (08:04)
[2022-04-16] MEDS: TAMSULOSIN 0.4 MG CAP.ER.24H PO SCH (08:04)
[2022-04-16] MEDS: ASPIRIN 81 MG PO SCH (08:04)
[2022-04-16] MEDS: lisinopriL 20 MG TAB PO SCH (08:04)
[2022-04-16] MEDS: AMOXIC-POT CLAV 875-125MG 1 EACH TAB PO SCH (08:04)
[2022-04-16] MEDS: SYMBICORT 160-4.5 MCG INHALER INHALATION SCH (08:12)
[2022-04-16] MEDS ORDERED: ERGOCALCIFEROL 1,250 MCG (50,000 IU) CAPSULE PO SCH (09:00)
[2022-04-16 09:45] LABS: Basophils % (A) 0 %; Eosinophils % (A) 0 %; HCT 46.8 % (39.0-53.0); HGB 15.1 gm/dL (13.0-17.5); Lymphocytes # (A) 0.2 k/uL (1.0-4.8); Lymphocytes % (A) 2 %; MCHC 32.4 g/dL (31.0-37.0); MCV 92.7 fL (80.0-100.0); Monocytes # (A) 0.7 k/uL (0-1.0); Monocytes % (A) 6 %; Neutrophils # (A) 10.7 k/uL (1.3-7.7); Neutrophils % (A) 91 %; Platelet Count 193 k/uL (150-450); RBC 5.05 m/uL (4.30-5.90); RDW 13.7 % (11.5-15.5); WBC 11.8 k/uL (3.8-10.6)
[2022-04-16 09:46] LABS: African American GFR (CKD) >90 (>60 ml/min/1.73 sqM); Anion Gap 3 mmol/L; Blood Urea Nitrogen 42 mg/dL (9-20); Calcium 8.2 mg/dL (8.4-10.2); Carbon Dioxide 39 mmol/L (22-30); Chloride 95 mmol/L (98-107); Glucose 125 mg/dL (74-99); Non-African American GFR(CKD) 89 (>60 ml/min/1.73 sqM); Potassium 4.6 mmol/L (3.5-5.1); Sodium 137 mmol/L (137-145)
[2022-04-16 11:32] VITALS: BP 132/76; RESP 17
[2022-04-16 11:49] LABS: Glucose,Whole Blood 126 mg/dL (70-110)
[2022-04-16 11:55] VITALS: PULSE 75
--- NOTE | 2022-04-18 09:30 | CDI ---
Documentation Clarification Form Date: 04/18/2022 09:18:00 AM From: Sunshine Campos Admit Date: 04/11/2022 04:35:00 PM Patient Name: Adam Olivo Visit Number: [id number] Discharge Date: 04/16/2022 12:54:00 PM ATTENTION: The Clinical Documentation Specialists (CDI) and [facility] Coding Staff appreciate your assistance in clarifying documentation. Please respond to the clarification below the line at the bottom and electronically sign. The CDI & [facility] Coding staff will review the response and follow-up if needed. Please note: Queries are made part of the Legal Health Record. If you have any questions, please contact the author of this message via ITS. Dr. Mariel Albright Conflicting documentation has been found in the medical record. As attending physician, please provide clarification. Per PN 04/12 and 04/13 Acute on chronic respiratory failure Per your PN 04/15 Chronic hypoxic hyercapnic respiratory failure History/Risk Factors: Severe COPD, Type II PR laryngeal CA, CAD Clinical Indicators: On 04/12 89% on 4L, 90% on Venti Mask 9L, 91% on 3 and then 4L NC on admit Treatment: Oxygen, agressive pulmonary toileting, nebulized broncholdilators and IV Steroids Please clarify which diagnosis is most appropriate: [ x ] Acute on chronic Respiratory failure with hypoxia and hypercapnia [ ] Chronic respiratory failure with hypoxia and hypercapnia [ ] Other (please specify) [ ] Unable to determine MTDD
== END 2022-04-16 12:54 | disposition home health service (06) | DRG 190 ==
LOC: EC 14:07 → 3SCARD 16:35
PROVIDERS: ADMIT Family Medicine; ATTEND Family Medicine
DX: J44.1 Chronic obstructive pulmonary disease with (acute) exacerbation (principal); I21.A1 Myocardial infarction type 2; J96.22 Acute and chronic respiratory failure with hypercapnia; J96.21 Acute and chronic respiratory failure with hypoxia; C15.9 Malignant neoplasm of esophagus, unspecified; F17.210 Nicotine dependence, cigarettes, uncomplicated; C32.9 Malignant neoplasm of larynx, unspecified; E78.5 Hyperlipidemia, unspecified; J44.0 Chronic obstructive pulmonary disease with (acute) lower respiratory infection; J20.9 Acute bronchitis, unspecified; D89.89 Other specified disorders involving the immune mechanism, not elsewhere classified; H70.90 Unspecified mastoiditis, unspecified ear; H91.90 Unspecified hearing loss, unspecified ear; M54.89 Other dorsalgia; K21.9 Gastro-esophageal reflux disease without esophagitis; I10 Essential (primary) hypertension; I25.10 Atherosclerotic heart disease of native coronary artery without angina pectoris; I49.3 Ventricular premature depolarization; I71.40 Abdominal aortic aneurysm, without rupture, unspecified; Z79.52 Long term (current) use of systemic steroids; Z79.899 Other long term (current) drug therapy; Z80.1 Family history of malignant neoplasm of trachea, bronchus and lung; Z82.49 Family history of ischemic heart disease and other diseases of the circulatory system; Z86.79 Personal history of other diseases of the circulatory system; Z86.010 Personal history of colon polyps; Z87.81 Personal history of (healed) traumatic fracture; Z87.01 Personal history of pneumonia (recurrent)
CPT/HCPCS: 36415; 71046; 80048; 80053; 82803; 83605; 83735; 83880; 84484; 85025; 85610; 85730; 87040; 87070; 87077; 87186; 87205; 87635; 93005; 93306; 94640; 94760; 96374; 99291

== ENCOUNTER 2022-05-02 18:16 | Inpatient (IN) | payer MEDICARE, OTHER ==
[2022-05-02 19:07] LABS: Basophils % (A) 0 %; Eosinophils % (A) 0 %; HCT 39.1 % (39.0-53.0); HGB 12.2 gm/dL (13.0-17.5); Hypochromasia Marked; Lymphocytes # (A) 0.2 k/uL (1.0-4.8); Lymphocytes % (A) 2 %; MCH 29.9 pg (25.0-35.0); MCHC 31.1 g/dL (31.0-37.0); Mean Platelet Volume 8.1; Monocytes # (A) 0.6 k/uL (0-1.0); Monocytes % (A) 6 %; Neutrophils # (A) 7.9 k/uL (1.3-7.7); Neutrophils % (A) 90 %; Platelet Count 140 k/uL (150-450); RBC 4.07 m/uL (4.30-5.90); WBC 8.8 k/uL (3.8-10.6)
[2022-05-02 19:15] LABS: ALT 17 U/L (4-49); AST 15 U/L (17-59); African American GFR (CKD) 66 (>60 ml/min/1.73 sqM); Albumin 3.2 g/dL (3.5-5.0); Alcohol <10 mg/dL; Alkaline Phosphatase 74 U/L (38-126); Anion Gap 3 mmol/L; Blood Urea Nitrogen 30 mg/dL (9-20); Calcium 7.7 mg/dL (8.4-10.2); Carbon Dioxide 39 mmol/L (22-30); Chloride 94 mmol/L (98-107); Glucose 221 mg/dL (74-99); Lipase 79 U/L (23-300); Non-African American GFR(CKD) 57 (>60 ml/min/1.73 sqM); Potassium 4.9 mmol/L (3.5-5.1); Sodium 136 mmol/L (137-145); Total Bilirubin 0.3 mg/dL (0.2-1.3); Total Protein 5.9 g/dL (6.3-8.2)
--- NOTE | 2022-05-02 21:12 | XR ---
EXAMINATION TYPE: XR chest 2V DATE OF EXAM: 05/02/2022 8:47 PM COMPARISON: Chest radiographs from 04/11/2022 TECHNIQUE: XR chest 2V Frontal and lateral views of the chest. CLINICAL INDICATION:Male, 71 years old with history of AMS, cough; FINDINGS: Lungs/Pleura: Bibasilar opacities most pronounced on lateral view. There is no evidence of pleural ef fusion, focal consolidation, or pneumothorax. Pulmonary vascularity: Unremarkable. Heart/mediastinum: Cardiomediastinal silhouette is unremarkable. Musculoskeletal: No acute osseous pathology. Vertebroplasty changes to the spine. IMPRESSION: Bibasilar airspace opacities correlate for pneumonia. These have increased from 04/11/2022.
--- NOTE | 2022-05-02 21:14 | CT ---
EXAMINATION TYPE: CT brain wo con CT DLP: 1178.4 mGycm, Automated exposure control for dose reduction was used. DATE OF EXAM: 05/02/2022 8:53 PM COMPARISON: 08/21/2010 CT, MRI 03/07/2022. CLINICAL INDICATION:Male, 71 years old with history of altered mental status, AMS TECHNIQUE: Brain: Axial CT images of the brain were obtained with coronal and sagittal reformats created and rev iewed. Contrast used: None. Oral contrast used: None. FINDINGS: Brain: Extra-axial spaces: No abnormal extra-axial fluid collections. Ventricular system: Within normal limits Cerebral parenchyma: No acute intraparenchymal hemorrhage or mass effect. The bill-white junction is well differentiated. Scattered hypoattenuating areas are seen within the white matter. Cerebellum: Unremarkable. Mass effect: No evidence of midline shift. Intracranial vasculature: Atherosclerotic calcifications of the intracranial vessels. Soft tissues: Normal. Calvarium/osseous structures: No depressed skull fracture. Paranasal sinuses and mastoid air cells: Mild scattered paranasal sinus disease. Visualized orbits: Bilateral aphakia IMPRESSION: 1. No acute intracranial process. 2. Nonspecific white matter changes, likely secondary to chronic small vessel ischemic disease.
[2022-05-02] MEDS ORDERED: NALOXONE 0.4 MG/ML 1 ML VIAL IVP STA (21:40)
[2022-05-02] MEDS: NALOXONE (MDV) 2 MG in SODIUM CHLORIDE 0.9% 250 ML IV SCH (22:00)
--- NOTE | 2022-05-02 22:26 | ED ---
General Adult HPI - General Chief complaint: Overdose Stated complaint: overdose Time Seen by Provider: 05/02/22 18:30 Source: EMS Mode of arrival: EMS Limitations: altered mental status - History of Present Illness Initial comments: This is a 71-year-old male who presents emergency department via EMS for reported overdose. The patient took an extra dose of his oral morphine. The patient was given this extra dose by the caregiver at the home in which both himself and his own. The patient does have a history of throat cancer status post radiation 3 days ago. The patient on arrival was ANO 2 but was improving according to EMS. The patient denied any acute pain or complaints at this time. The patient was resting in bed comfortably. - Related Data Home Medications Medication Instructions Recorded Confirmed Atorvastatin [Lipitor] 80 mg PO HS 05/04/18 04/11/22 lisinopriL [Zestril] 20 mg PO BID 03/04/19 04/11/22 amLODIPine [Norvasc] 5 mg PO BID 06/25/19 04/11/22 Albuterol Nebulized [Ventolin 2.5 mg INHALATION RT-QID PRN 03/06/20 04/11/22 Nebulized] Albuterol Sulfate [Ventolin HFA] 2 puff INHALATION RT-QID PRN 03/06/20 04/11/22 SILVER sulfADIAZINE CREAM 1 applic TOPICAL BID 03/06/20 04/11/22 [Silvadene Cream] Ergocalciferol (Vitamin D2) 1,250 mcg PO MO 04/11/22 04/11/22 [Drisdol (50,000 Iu)] Tamsulosin HCl [Flomax] 0.4 mg PO DAILY 04/11/22 04/11/22 Previous Rx's Medication Instructions Recorded Amoxic-Pot Clav 875-125Mg 1 tab PO BID 5 Days #10 tab 04/16/22 [Augmentin 875-125] Aspirin EC [Ecotrin Low Dose] 81 mg PO DAILY #30 tab 04/16/22 Budesonide-Formot 160-4.5 Mcg 2 puff INHALATION RT-BID #1 each 04/16/22 [Symbicort 160-4.5 Mcg Inhaler] Metoprolol Succinate (ER) [Toprol 12.5 mg PO DAILY #30 tab 04/16/22 XL] predniSONE 10 mg PO DIRECTED #30 tab 04/16/22 Allergies Allergy/AdvReac Type Severity Reaction Status Date / Time Penicillins Allergy Rash/Hives Verified 05/02/22 22:18 gabapentin AdvReac Hallucinati Verified 05/02/22 22:18 ons/AMS Review of Systems ROS Statement: Those systems with pertinent positive or pertinent negative responses have been documented in the HPI. ROS Other: All systems not noted in ROS Statement are negative. Past Medical History Past Medical History: Coronary Artery Disease (CAD), Cancer, COPD, GERD/Reflux, Hearing Disorder / Deafness, Hyperlipidemia, Hypertension, Pneumonia, Vascular Disorder Additional Past Medical History / Comment(s): Severe COPD, history of autoimmune disease had work up by Dr. Goins and [facility]-never received specifics about the disease type, aortic aneurysm with repair, thoracolumbar pain/T4 fracture with recent surgery, current nephrolithiasis-has passed stones on his own in the past, bilateral leg cramps, left eardrum perforation/SALAMATOF. Currently has Laryngeal cancer being treated with radiation. History of Any Multi-Drug Resistant Organisms: Other MDRO Past Surgical History: Appendectomy, Back Surgery, Ear Surgery, Heart Catheterization, Hernia Repair Additional Past Surgical History / Comment(s): 06/29/19 T4 kyphoplasty, Endovascular stent grafting of a abdominal aortic aneurysm. Facial reconstructive surgery. L ear surgery-myringotomy. Umbilical hernia. Colonoscopy-benign polypectomy. R cataract removed with lens. L eye had glass removed and lens placed. Past Anesthesia/Blood Transfusion Reactions: No Reported Reaction Additional Past Anesthesia/Blood Transfusion Reaction / Comment(s): Pt has never recieved blood. Past Psychological History: No Psychological Hx Reported Smoking Status: Current every day smoker Past Alcohol Use History: Occasional Past Drug Use History: None Reported - Past Family History Brother(s) Family Medical History: Cancer, Fibromyalgia Additional Family Medical History / Comment(s): Brother of lung cancer at the age of 42 yrs. He was a smoker. Sister(s) Family Medical History: Cancer, Fibromyalgia Additional Family Medical History / Comment(s): Sister of lung cancer. She was a smoker. Father Family Medical History: Myocardial Infarction (LA) Additional Family Medical History / Comment(s): Father at age 75 yrs of a LA Mother Family Medical History: Cancer Additional Family Medical History / Comment(s): Mother of metastatic cancer (unknown primary) at age 42 yrs. General Exam Limitations: altered mental status General appearance: alert, in no apparent distress Head exam: Present: atraumatic, normocephalic, normal inspection Eye exam: Present: normal appearance, PERRL Pupils: Present: normal accommodation ENT exam: Present: normal exam, normal oropharynx, mucous membranes moist Neck exam: Present: normal inspection, full ROM Respiratory exam: Present: normal lung sounds bilaterally Cardiovascular Exam: Present: regular rate, normal rhythm, normal heart sounds GI/Abdominal exam: Present: soft, normal bowel sounds Extremities exam: Present: normal inspection, full ROM Back exam: Present: normal inspection, full ROM Neurological exam: Present: alert, altered, CN II-XII intact Psychiatric exam: Present: normal affect, normal mood Skin exam: Present: warm, dry Course Vital Signs 05/02/22 05/02/22 05/02/22 18:30 21:35 21:36 Temperature 97.6 F Pulse Rate 83 Respiratory 16 8 L Rate Blood Pressure 152/88 O2 Sat by Pulse 89 L 62 L Oximetry 05/02/22 05/02/22 21:38 21:43 Temperature Pulse Rate Respiratory Rate Blood Pressure O2 Sat by Pulse 90 L 99 Oximetry EKG Findings - EKG Comments: EKG Findings:: An EKG was obtained was read by myself. EKG showed a rate of 67, CA interval of 127, QRS duration 107 QTC 436. This EKG showed normal sinus rhythm with no ST segment elevations or depressions noted. Medical Decision Making - Medical Decision Making The patient was seen and evaluated in the emergency department. On physical exam, the patient was resting in bed without any acute distress. The patient was pleasantly confused however was improving. Astra approximate 5 minutes of my evaluation, the patient was ANO 3. The patient continued to remain stable without any acute complaints. Laboratory workup was obtained as was a head CT. Head CT was negative and chest x-ray showed bibasilar infiltrates however they were present on previous chest x-rays but were mildly increased. The patient is of a past medical history including congestive heart failure and he did not have any cough or congestion noted this time. The patient was likely not suffering f rom pneumonia at this time and the patient did not have a white blood cell count. All laboratory workup was within normal limits. The patient's proBNP was elevated 1870 however was decreased from his previous elevations. The patient denied completely shortest breath or difficulty in breathing. While evaluating the patient and monitoring him in the emergency department, the patient did have an episode of hypoxia and decreased breathing. The patient did receive 3 individual doses of 0.4 mg of Narcan in order to improve his symptoms. Due to the patient's second round of Narcan dosing, the patient will require a Narcan drip and her to negate the long-acting extra dose of morphine. The pat ient will need to be admitted to the ICU for observation while on the Narcan drip. The patient's primary care physician was being covered by [facility] and Barbara Wilson was contacted at [phone] and accepted the patient for admission. The testing specialist, was contacted at [phone] and accepted the patient as a consult as the testing specialist. The patient remained stable and was ANO 3 once again. The patient was admitted in stable condition. - Lab Data Result diagrams: 05/02/22 18:55 05/02/22 18:55 Lab Results 05/02/22 05/02/22 05/02/22 Range/Units 18:55 18:55 18:55 WBC 8.8 (3.8-10.6) k/uL RBC 4.07 L (4.30-5.90) m/uL Hgb 12.2 L (13.0-17.5) gm/dL Hct 39.1 (39.0-53.0) % MCV 96.0 (80.0-100.0) fL MCH 29.9 (25.0-35.0) pg MCHC 31.1 (31.0-37.0) g/dL RDW 14.0 (11.5-15.5) % Plt Count 140 L (150-450) k/uL MPV 8.1 Neutrophils % 90 % Lymphocytes % 2 % Monocytes % 6 % Eosinophils % 0 % Basophils % 0 % Neutrophils # 7.9 H (1.3-7.7) k/uL Lymphocytes # 0.2 L (1.0-4.8) k/uL Monocytes # 0.6 (0-1.0) k/uL Eosinophils # 0.0 (0-0.7) k/uL Basophils # 0.0 (0-0.2) k/uL Hypochromasia Marked Sodium 136 L (137-145) mmol/L Potassium 4.9 (3.5-5.1) mmol/L Chloride 94 L (98-107) mmol/L Carbon Dioxide 39 H (22-30) mmol/L Anion Gap 3 mmol/L BUN 30 H (9-20) mg/dL Creatinine 1.26 H (0.66-1.25) mg/dL Est GFR (CKD-EPI)AfAm 66 (>60 ml/min/1.73 sqM) Est GFR (CKD-EPI)NonAf 57 (>60 ml/min/1.73 sqM) Glucose 221 H (74-99) mg/dL Calcium 7.7 L (8.4-10.2) mg/dL Total Bilirubin 0.3 (0.2-1.3) mg/dL AST 15 L (17-59) U/L ALT 17 (4-49) U/L Alkaline Phosphatase 74 (38-126) U/L Troponin I <0.012 (0.000-0.034) ng/mL NT-Pro-B Natriuret Pep pg/mL Total Protein 5.9 L (6.3-8.2) g/dL Albumin 3.2 L (3.5-5.0) g/dL Lipase 79 (23-300) U/L Serum Alcohol <10 mg/dL 05/02/22 Range/Units 18:55 WBC (3.8-10.6) k/uL RBC (4.30-5.90) m/uL Hgb (13.0-17.5) gm/dL Hct (39.0-53.0) % MCV (80.0-100.0) fL MCH (25.0-35.0) pg MCHC (31.0-37.0) g/dL RDW (11.5-15.5) % Plt Count (150-450) k/uL MPV Neutrophils % % Lymphocytes % % Monocytes % % Eosinophils % % Basophils % % Neutrophils # (1.3-7.7) k/uL Lymphocytes # (1.0-4.8) k/uL Monocytes # (0-1.0) k/uL Eosinophils # (0-0.7) k/uL Basophils # (0-0.2) k/uL Hypochromasia Sodium (137-145) mmol/L Potassium (3.5-5.1) mmol/L Chloride (98-107) mmol/L Carbon Dioxide (22-30) mmol/L Anion Gap mmol/L BUN (9-20) mg/dL Creatinine (0.66-1.25) mg/dL Est GFR (CKD-EPI)AfAm (>60 ml/min/1.73 sqM) Est GFR (CKD-EPI)NonAf (>60 ml/min/1.73 sqM) Glucose (74-99) mg/dL Calcium (8.4-10.2) mg/dL Total Bilirubin (0.2-1.3) mg/dL AST (17-59) U/L ALT (4-49) U/L Alkaline Phosphatase (38-126) U/L Troponin I (0.000-0.034) ng/mL NT-Pro-B Natriuret Pep 1870 pg/mL Total Protein (6.3-8.2) g/dL Albumin (3.5-5.0) g/dL Lipase (23-300) U/L Serum Alcohol mg/dL Critical Care Time Critical Care Time: Yes Total Critical Care Time: 36 Disposition Clinical Impression: Accidental drug overdose Disposition: ADMITTED IP TO THIS [facility] Condition: Stable Is patient prescribed a controlled substance at d/c from ED?: No Referrals: Jamie Balderas DO [Primary Care Provider] - 1-2 days Time of Disposition: 22:08 Decision to Admit Reason: Admit from EC Decision Date: 05/02/22 Decision Time: 22:08
[2022-05-02] MEDS ORDERED: NALOXONE 0.4 MG/ML 1 ML VIAL IV PRN (22:34)
[2022-05-02] MEDS ORDERED: SODIUM CHLORIDE 0.9% 500 ML 500 ML IV ONE (22:57)
[2022-05-02 23:55] LABS: Glucose,Whole Blood 125 mg/dL (70-110)
--- NOTE | 2022-05-02 23:57 | XR ---
EXAMINATION TYPE: XR chest 1V portable DATE OF EXAM: 05/02/2022 COMPARISON: Today HISTORY: Short of breath TECHNIQUE: Single view FINDINGS: There is coarse pulmonary interstitial density. Heart size is normal. There are chest leads . No definite pleural effusion. IMPRESSION: Pulmonary interstitial infiltrates could be pulmonary interstitial fibrosis and not signi ficantly different than exam 3 hours ago. No pleural fluid or cardiomegaly seen to suggest heart fail ure. Acute interstitial pneumonia also possible. Lung disease slightly increased compared to older est x-ray of 03/06/2020.
[2022-05-03 00:14] LABS: ABG Oxygen Saturation 94.3 % (94-97); ABG PO2 71 mmHg (83-108); Allen Test Performed? Yes
[2022-05-03 00:31] LABS: ABG Oxygen Saturation 93.4 % (94-97); ABG PO2 68 mmHg (83-108); Allen Test Performed? Yes
[2022-05-03] MEDS ORDERED: NOREPINEPHRIN 4 MG-0.9% NS PMX 4 MG/250 ML ML IV ONE (00:34)
[2022-05-03] MEDS ORDERED: propofoL 100 ML IV ONE (00:56)
[2022-05-03 01:27] LABS: ABG PCO2 >120 mmHg (35-45); ABG PH 7.07 (7.35-7.45)
[2022-05-03 01:29] LABS: ABG PCO2 >120 mmHg (35-45); ABG PH 7.06 (7.35-7.45)
[2022-05-03] MEDS: NALOXONE (MDV) 2 MG in SODIUM CHLORIDE 0.9% 250 ML IV SCH ×5 (01:34→16:02)
[2022-05-03 01:38] LABS: ABG Base Excess 5.3 mmol/L; ABG HCO3 33 mmol/L (21-25); ABG PH 7.21 (7.35-7.45); ABG PO2 >400 mmHg (83-108); ABG TCO2 36 mmol/L (19-24); Allen Test Performed? Yes
[2022-05-03 01:43] LABS: ABG PCO2 83 mmHg (35-45)
[2022-05-03] MEDS ORDERED: IPRATROPIUM-ALBUTEROL 3 ML NEB INHALATION PRN (01:48)
[2022-05-03] MEDS: NOREPINEPHRINE 4 MG in SODIUM CHLORIDE 0.9% 250 ML IV SCH ×2 (01:53→02:57)
[2022-05-03 01:56] LABS: Appearance,Urine Cloudy (Clear); Bilirubin,Urine Negative (Negative); Blood,Urine Trace (Negative); Color,Urine Yellow; Glucose,Urine (UA) Negative (Negative); Hyaline Casts,Urine 53 /lpf (0-2); Ketones,Urine Negative (Negative); Leukocyte Esterase,Urine Negative (Negative); Mucus,Urine Moderate /hpf; Nitrite,Urine Negative (Negative); Protein,Urine 1+ (Negative); RBC,Urine 3 /hpf (0-5); Specific Gravity,Urine 1.015 (1.001-1.035); Squamous Epithelial Cell,Urine 2 /hpf (0-4); WBC,Urine 11 /hpf (0-5)
[2022-05-03 01:58] LABS: Amphetamine Screen,Urine Not Detected (NotDetected); Barbiturate Screen,Urine Not Detected (NotDetected); Benzodiazepines Screen,Urine Not Detected (NotDetected); Cocaine Screen,Urine Not Detected (NotDetected); Methadone Screen, Urine Not Detected (NotDetected); Opiate Screen,Urine Detected (NotDetected); Oxycodone Screen, Urine Not Detected (NotDetected); Phencyclidine Screen,Urine Not Detected (NotDetected); Tricyclic Antidepressant,Urine Not Detected (NotDetected); Urn Cannabinoid Scrn Not Detected (NotDetected)
--- NOTE | 2022-05-03 02:01 | XR ---
EXAMINATION TYPE: XR chest 1V portable DATE OF EXAM: 05/03/2022 COMPARISON: Yesterday HISTORY: Tube placement TECHNIQUE: Single view FINDINGS: There is nasogastric tube in the stomach. There is endotracheal tube 5 cm from the ros[place]. There is mild pulmonary interstitial edema. There are chest leads. IMPRESSION: Tubing in fairly good position. There is pulmonary edema without change.
[2022-05-03 05:48] LABS: ABG Base Excess 10.9 mmol/L; ABG HCO3 35 mmol/L (21-25); ABG Oxygen Saturation 97.3 % (94-97); ABG PCO2 52 mmHg (35-45); ABG PH 7.44 (7.35-7.45); ABG PO2 67 mmHg (83-108); ABG TCO2 37 mmol/L (19-24); Allen Test Performed? Yes
[2022-05-03 06:22] LABS: Basophils % (A) 0 %; Eosinophils # (A) 0.1 k/uL (0-0.7); Eosinophils % (A) 1 %; HCT 34.8 % (39.0-53.0); HGB 11.2 gm/dL (13.0-17.5); Hypochromasia Marked; Lymphocytes # (A) 0.9 k/uL (1.0-4.8); Lymphocytes % (A) 14 %; MCH 30.5 pg (25.0-35.0); MCHC 32.2 g/dL (31.0-37.0); MCV 94.8 fL (80.0-100.0); Mean Platelet Volume 8.8; Monocytes # (A) 0.7 k/uL (0-1.0); Monocytes % (A) 10 %; Neutrophils # (A) 4.5 k/uL (1.3-7.7); Neutrophils % (A) 71 %; Platelet Count 125 k/uL (150-450); RBC 3.67 m/uL (4.30-5.90); RDW 13.8 % (11.5-15.5); WBC 6.4 k/uL (3.8-10.6)
[2022-05-03 07:01] LABS: Albumin 2.8 g/dL (3.5-5.0); Calcium 7.4 mg/dL (8.4-10.2); Magnesium 1.9 mg/dL (1.6-2.3); Potassium 4.6 mmol/L (3.5-5.1); Total Bilirubin 0.6 mg/dL (0.2-1.3); Total Protein 5.1 g/dL (6.3-8.2)
[2022-05-03] MEDS ORDERED: Magnesium Replacement Protocol 1 EACH MISC MISCELLANE PRN (07:05)
[2022-05-03] MEDS: IPRATROPIUM-ALBUTEROL 3 ML NEB INHALATION SCH ×5 (08:09→23:50)
[2022-05-03] MEDS ORDERED: CHLORHEXIDINE GLUCONATE 15 ML CUP MUCOUS MEM SCH (09:00)
[2022-05-03] MEDS: MAGNESIUM SULFATE-D5W PMX 1 GM in DEXTROSE/WATER 1 100ML.BAG IVPB SCH ×2 (09:24)
[2022-05-03 09:59] LABS: Glucose,Whole Blood 88 mg/dL (70-110)
--- NOTE | 2022-05-03 12:33 | P.CNPUL ---
History of Present Illness Consult date: 05/03/22 Requesting physician: Jamie Balderas Reason for consult: other (Acute hypoxic and hypercapnic respiratory failure) Chief complaint: Accidental overdose of morphine sulfate History of present illness: This is a 71-year-old white male with history of multiple medical problems including diabetes, history of dyslipidemia, laryngeal cancer, chronic pain syndrome, patient had radiation to his throat cancer 3 days prior. Apparently the patient accidentally overdosed on his liquid morphine sulfate at home, and notified EMS, patient was given Narcan with minimal improvement. Arrived to the ER, patient was placed on a Narcan drip, and his mental status was waxing and waning while on Narcan drip. However when I was notified by the ER physician I was told that the patient was awake, responsive, and did not seem to be in any respiratory distress. However considering the patient was on Narcan drip, I accepted the patient to go to the ICU. Shortly after he arrived to the ICU, I was notified by the nurse that the patient is becoming less and less responsive. He was only responsive to deep painful stimuli. ABG showed a pO2 of 68 pCO2 of more than 120 and his pH was 7.06. This was on 50% FiO2. Recommended intubating the patient, he was intubated, and immediate ABG post intubation showed a pO2 of more than 400 pCO2 down to 83 pH of 7.21. ABG this morning showed a pO2 of 67 pCO2 of 52 pH of 7.44 patient is now off Narcan, he was on propofol earlier which I have discontinued and suggested that to wean the patient on mechanical ventilation and possibly extubate to BiPAP later in the next couple of hours. All labs were noted to be relatively unremarkable, patient had positive drug screen for opiates. Chest x-ray this morning showed no evidence of infiltrates, chronic parenchymal senescent changes noted in the lungs bilaterally. His chest x-ray is not much different from a recent chest x- ray. Review of Systems ROS unobtainable: due to endotracheal tube Past Medical History Past Medical History: Coronary Artery Disease (CAD), Cancer, COPD, GERD/Reflux, Hearing Disorder / Deafness, Hyperlipidemia, Hypertension, Pneumonia, Vascular Disorder Additional Past Medical History / Comment(s): Severe COPD, history of autoimmune disease had work up by Dr. Goins and [facility]-never received specifics about the disease type, aortic aneurysm with repair, thoracolumbar pain/T4 fracture with recent surgery, current nephrolithiasis-has passed stones on his own in the past, bilateral leg cramps, left eardrum perforation/JENA. Currently has Laryngeal cancer being treated with radiation. History of Any Multi-Drug Resistant Organisms: Other MDRO Past Surgical History: Appendectomy, Back Surgery, Ear Surgery, Heart Catheterization, Hernia Repair Additional Past Surgical History / Comment(s): 06/29/19 T4 kyphoplasty, Endovascular stent grafting of a abdominal aortic aneurysm. Facial reconstructive surgery. L ear surgery-myringotomy. Umbilical hernia. Colonoscopy-benign polypectomy. R cataract removed with lens. L eye had glass removed and lens placed. Past Anesthesia/Blood Transfusion Reactions: No Reported Reaction Additional Past Anesthesia/Blood Transfusion Reaction / Comment(s): Pt has never recieved blood. Past Psychological History: No Psychological Hx Reported Additional Psychological History / Comment(s): Pt resides with his spouse. 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 Pt uses no assistive device. He drives. Smoking Status: Current every day smoker Past Alcohol Use History: Occasional Additional Past Alcohol Use History / Comment(s): Pt started smoking in 1961. Pt states he is down to 2cigarettes a day, from 2ppd and has not soked at all in past 2 days. Past Drug Use History: None Reported - Past Family History Brother(s) Family Medical History: Cancer, Fibromyalgia Additional Family Medical History / Comment(s): Brother of lung cancer at the age of 42 yrs. He was a smoker. Sister(s) Family Medical History: Cancer, Fibromyalgia Additional Family Medical History / Comment(s): Sister of lung cancer. She was a smoker. Father Family Medical History: Myocardial Infarction (DC) Additional Family Medical History / Comment(s): Father at age 75 yrs of a DC Mother Family Medical History: Cancer Additional Family Medical History / Comment(s): Mother of metastatic cancer (unknown primary) at age 42 yrs. Medications and Allergies Home Medications Medication Instructions Recorded Confirmed Type Atorvastatin [Lipitor] 80 mg PO HS 05/04/18 05/02/22 History lisinopriL [Zestril] 20 mg PO BID 03/04/19 05/02/22 History amLODIPine [Norvasc] 5 mg PO BID 06/25/19 05/02/22 History Albuterol Nebulized [Ventolin 2.5 mg INHALATION RT-QID PRN 03/06/20 05/02/22 History Nebulized] Albuterol Sulfate [Ventolin HFA] 2 puff INHALATION RT-QID PRN 03/06/20 05/02/22 History SILVER sulfADIAZINE CREAM 1 applic TOPICAL BID 03/06/20 05/02/22 History [Silvadene Cream] Ergocalciferol (Vitamin D2) 1,250 mcg PO MO 04/11/22 05/02/22 History [Drisdol (50,000 Iu)] Tamsulosin HCl [Flomax] 0.4 mg PO DAILY 04/11/22 05/02/22 History Aspirin EC [Ecotrin Low Dose] 81 mg PO DAILY #30 tab 04/16/22 05/02/22 Rx Budesonide-Formot 160-4.5 Mcg 2 puff INHALATION RT-BID #1 each 04/16/22 05/02/22 Rx [Symbicort 160-4.5 Mcg Inhaler] Metoprolol Succinate (ER) [Toprol 12.5 mg PO DAILY #30 tab 04/16/22 05/02/22 Rx XL] Morphine Sulfate 20mg/5ml 10 - 20 mg PO QID PRN 05/02/22 05/02/22 History Omeprazole 20 mg PO DAILY 05/02/22 05/02/22 History Ondansetron Odt [Zofran Odt] 8 mg PO Q8HR PRN 05/02/22 05/02/22 History Allergies Allergy/AdvReac Type Severity Reaction Status Date / Time Penicillins Allergy Rash/Hives Verified 05/02/22 22:18 gabapentin AdvReac Hallucinati Verified 05/02/22 22:18 ons/AMS Physical Exam Vitals: Vital Signs Temp Pulse Pulse Resp BP Pulse Ox FiO2 05/03/22 11:00 71 33 H 130/77 80 L 05/03/22 10:32 30 05/03/22 10:00 67 18 124/75 89 L 05/03/22 09:00 64 18 106/65 90 L 05/03/22 08:50 64 18 106/65 89 L 05/03/22 08:40 62 18 107/68 89 L 05/03/22 08:30 61 18 105/69 89 L 12/01/22 08:20 59 L 18 105/69 94 L 05/03/22 08:10 63 18 110/63 90 L 05/03/22 08:09 63 05/03/22 08:00 98.6 F 62 18 96/64 90 L 30 05/03/22 07:50 58 L 18 96/64 91 L 05/03/22 07:47 30 05/03/22 07:40 56 L 18 101/64 92 L 05/03/22 07:30 55 L 18 99/65 92 L 05/03/22 07:20 55 L 18 99/65 92 L 05/03/22 07:10 55 L 18 96/66 93 L 05/03/22 07:00 98.4 F 54 L 18 92/60 92 L 05/03/22 06:50 53 L 18 92/60 94 L 05/03/22 06:40 52 L 18 82/57 97 05/03/22 06:30 55 L 18 90/59 93 L 05/03/22 06:20 54 L 18 90/59 95 05/03/22 06:15 53 L 18 89/59 93 L 05/03/22 06:00 54 L 18 92/60 95 05/03/22 05:51 30 05/03/22 05:45 52 L 18 86/60 97 05/03/22 05:30 53 L 18 82/57 97 05/03/22 05:15 54 L 18 84/58 98 05/03/22 05:00 97.7 F 53 L 18 99/69 98 05/03/22 04:45 52 L 18 95/66 99 05/03/22 04:30 52 L 18 92/66 96 05/03/22 04:15 51 L 18 100/68 96 05/03/22 04:00 96.3 F L 52 L 52 L 18 96/63 98 40 05/03/22 03:45 51 L 18 92/64 97 05/03/22 03:30 95.1 F L 52 L 18 104/71 95 05/03/22 03:25 40 05/03/22 03:15 51 L 18 105/70 99 05/03/22 03:00 47 L 19 101/69 96 05/03/22 02:45 48 L 18 98/64 95 05/03/22 02:30 50 L 18 89/60 96 05/03/22 02:19 40 05/03/22 02:15 49 L 18 84/62 05/03/22 02:00 50 L 18 90/59 100 05/03/22 01:45 52 L 18 77/56 100 05/03/22 01:38 50 05/03/22 01:30 55 L 18 157/83 100 100 05/03/22 01:15 70 18 160/99 99 05/03/22 01:00 74 50 L 18 83/49 86 L 100 05/03/22 00:52 100 05/03/22 00:50 64 10 L 64/38 93 L 05/03/22 00:40 64 14 68/37 05/03/22 00:30 64 21 88/50 91 L 05/03/22 00:20 64 11 L 88/50 93 L 05/03/22 00:10 65 12 91/51 93 L 05/03/22 00:00 98.2 F 67 12 81/47 96 50 05/02/22 23:55 50 05/02/22 23:16 68 85/56 98 05/02/22 23:12 69 76/45 97 05/02/22 22:55 68 12 78/48 92 L 05/02/22 22:45 70 12 85/55 95 05/02/22 22:00 12 05/02/22 21:43 99 05/02/22 21:38 90 L 05/02/22 21:36 8 L 05/02/22 21:35 62 L 05/02/22 18:30 97.6 F 83 16 152/88 89 L Intake and Output 05/02/22 05/03/22 05/03/22 22:59 06:59 14:59 Intake Total 746.497 111.796 Output Total 660 1165 Balance 86.497 -1053.204 Intake: IV 80 100 0.9 @ 20 80 100 Intake, IV Titration 666.497 11.796 Amount Norepinephrine 4 mg In 43.500 11.796 Sodium Chloride 0.9% 250 ml @ 0.03 MCG/KG/MIN 9. 073 mls/hr IV .Q24H [facility] Rx#:[id number] Sodium Chloride 0.9% 500 500 ml 500 ml @ 999 mls/hr IV .Q31M [facility] Rx#:[id number] propofoL 1,000 mg In 122.997 Empty Bag 1 bag @ 15 MCG/ KG/MIN 7.144 mls/hr IV . Q14H [facility] Rx#:[id number] Output: Gastric Drainage 200 1000 Urine 460 165 Other: Voiding Method Indwelling Catheter Indwelling Catheter Weight 80.286 kg 80.286 kg Physical Exam: Revealed a 71-year-old white male intubated, mechanically ventilated, sedated, on propofol, in no distress. Head: Atraumatic, normocephalic, endotracheal tube and orogastric tube are intact HEENT:[Neck is supple.] [No neck masses.] [No thyromegaly.] [No JVD.] Chest: Diminished breath sounds at the bases no crackles or rhonchi or wheezes Cardiac Exam: [Normal S1 and S2, no S3 gallop, no murmur.] Abdomen: [Soft, nontender, no megaly, no rebound, no guarding, normal bowel sounds.] Extremities: [No clubbing, no edema, no cyanosis.] Good pulses bilaterally. Neurological Exam: Arousable to painful stimuli and follows instructions but seems to drift easily back to sleep. Psychiatric: Could not assess. Results - Laboratory Findings CBC and BMP: 05/03/22 05:47 05/03/22 05:47 ABG ABG pH 7.44 (7.35-7.45) 05/03/22 05:45 ABG pCO2 52 mmHg (35-45) H 05/03/22 05:45 ABG pO2 67 mmHg (83-108) L 05/03/22 05:45 ABG O2 Saturation 97.3 % (94-97) H 05/03/22 05:45 Abnormal lab findings: Abnormal Labs 05/02/22 05/02/22 05/02/22 18:55 18:55 23:52 RBC 4.07 L Hgb 12.2 L Hct Plt Count 140 L Neutrophils # 7.9 H Lymphocytes # 0.2 L ABG pH ABG pCO2 ABG pO2 ABG HCO3 ABG Total CO2 ABG O2 Saturation Sodium 136 L Chloride 94 L Carbon Dioxide 39 H BUN 30 H Creatinine 1.26 H Glucose 221 H POC Glucose (mg/dL) 125 H Calcium 7.7 L AST 15 L Total Protein 5.9 L Albumin 3.2 L Urine Protein Urine Blood Urine WBC Hyaline Casts Urine Mucus Urine Opiates Screen 05/03/22 05/03/22 05/03/22 00:10 00:28 01:00 RBC Hgb Hct Plt Count Neutrophils # Lymphocytes # ABG pH 7.07 L* 7.06 L* ABG pCO2 >120 H* >120 H* ABG pO2 71 L 68 L ABG HCO3 ABG Total CO2 ABG O2 Saturation 93.4 L Sodium Chloride Carbon Dioxide BUN Creatinine Glucose POC Glucose (mg/dL) Calcium AST Total Protein Albumin Urine Protein 1+ H Urine Blood Trace H Urine WBC 11 H Hyaline Casts 53 H Urine Mucus Moderate H Urine Opiates Screen 05/03/22 05/03/22 05/03/22 01:00 01:35 05:45 RBC Hgb Hct Plt Count Neutrophils # Lymphocytes # ABG pH 7.21 L ABG pCO2 83 H* 52 H ABG pO2 >400 H 67 L ABG HCO3 33 H 35 H ABG Total CO2 36 H 37 H ABG O2 Saturation 100.0 H 97.3 H Sodium Chloride Carbon Dioxide BUN Creatinine Glucose POC Glucose (mg/dL) Calcium AST Total Protein Albumin Urine Protein Urine Blood Urine WBC Hyaline Casts Urine Mucus Urine Opiates Screen Detected H 05/03/22 05/03/22 05:47 05:47 RBC 3.67 L Hgb 11.2 L Hct 34.8 L Plt Count 125 L Neutrophils # Lymphocytes # 0.9 L ABG pH ABG pCO2 ABG pO2 ABG HCO3 ABG Total CO2 ABG O2 Saturation Sodium 136 L Chloride Carbon Dioxide 32 H BUN 32 H Creatinine Glucose 72 L POC Glucose (mg/dL) Calcium 7.4 L AST 13 L Total Protein 5.1 L Albumin 2.8 L Urine Protein Urine Blood Urine WBC Hyaline Casts Urine Mucus Urine Opiates Screen - Diagnostic Findings Chest x-ray: image reviewed (As noted in HPI) Assessment and Plan Assessment: Impression: Acute hypoxic and hypercapnic respiratory failure secondary to opiate overdose/accidental. History of recently diagnosed laryngeal cancer History of underlying COPD Chronic pain syndrome Benign essential hypertension Dyslipidemia History of benign prostatic hypertrophy Recommendation: Continue ventilatory support for now, however I plan to discontinue propofol and was the patient is more awake and arousable will switch the patient to a pressure support of 10 and CPAP, and if it is well tolerated and the patient remains awake would proceed to extubating the patient either to nasal cannula or to BiPAP. Resume his home bronchodilators including DuoNeb updrafts and Symbicort. Avoid narcotics for now GI and DVT prophylaxis Diet will be advanced postextubation We will continue to follow. Time with Patient: Greater than 30
--- NOTE | 2022-05-03 13:47 | P.HPIM ---
History of Present Illness H&P Date: 05/03/22 This is a 71-year-old gentleman with past medical history of recently diagnosed laryngeal cancer -receiving radiation treatments ([address] t[address]) [address] Rios at [facility], severe COPD, nicotine dependence, CAD, hypertension and multiple other medical issues, admitted with reported overdose of morphine sulfate. Per ER records, patient accidentally overdosed on his liquid morphine at home, notified EMS, Narcan administered with minimal improvement. On arrival to ER placed on Narcan drip, admitted to ICU, continued to decline, intubated shortly thereafter. Narcan drip weaned off. Afebrile, normal WBC, hemoglobin 11.2, platelets 125, ABGs noted, sodium 136, potassium 4.6, bicarb 32, BUN 32, creatinine 1.06, magnesium 1.9, glucose 72-200s, UA negative, toxicology positive for opiates, serum alcohol less than 10. Review of Systems Unable to complete review of systems as patient is intubated and sedated. Past Medical History Past Medical History: Coronary Artery Disease (CAD), Cancer, COPD, GERD/Reflux, Hearing Disorder / Deafness, Hyperlipidemia, Hypertension, Pneumonia, Vascular Disorder Additional Past Medical History / Comment(s): Severe COPD, history of autoimmune disease had work up by Dr. Goins and [facility]-never received specifics about the disease type, aortic aneurysm with repair, thoracolumbar pain/T4 fracture with recent surgery, current nephrolithiasis-has passed stones on his own in the past, bilateral leg cramps, left eardrum perforation/CHITIMACHA. Currently has Laryngeal cancer being treated with radiation. History of Any Multi-Drug Resistant Organisms: Other MDRO Past Surgical History: Appendectomy, Back Surgery, Ear Surgery, Heart Catheterization, Hernia Repair Additional Past Surgical History / Comment(s): 06/29/19 T4 kyphoplasty, Endovascular stent grafting of a abdominal aortic aneurysm. Facial reconstructive surgery. L ear surgery-myringotomy. Umbilical hernia. [place] py-benign polypectomy. R cataract removed with lens. L eye had glass removed and lens placed. Past Anesthesia/Blood Transfusion Reactions: No Reported Reaction Additional Past Anesthesia/Blood Transfusion Reaction / Comment(s): Pt has never recieved blood. Past Psychological History: No Psychological Hx Reported Additional Psychological History / Comment(s): Pt resides with his spouse. 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 Pt uses no assistive device. He drives. Smoking Status: Current every day smoker Past Alcohol Use History: Occasional Additional Past Alcohol Use History / Comment(s): Pt started smoking in 1961. Pt states he is down to 2cigarettes a day, from 2ppd and has not soked at all in past 2 days. Past Drug Use History: None Reported - Past Family History Brother(s) Family Medical History: Cancer, Fibromyalgia Additional Family Medical History / Comment(s): Brother of lung cancer at the age of 42 yrs. He was a smoker. Sister(s) Family Medical History: Cancer, Fibromyalgia Additional Family Medical History / Comment(s): Sister of lung cancer. She was a smoker. Father Family Medical History: Myocardial Infarction ([place]) Additional Family Medical History / Comment(s): Father at age 75 yrs of a [place] Mother Family Medical History: Cancer Additional Family Medical History / Comment(s): Mother of metastatic cancer (unknown primary) at age 42 yrs. Medications and Allergies Home Medications Medication Instructions Recorded Confirmed Type Atorvastatin [Lipitor] 80 mg PO HS 05/04/18 05/02/22 History lisinopriL [Zestril] 20 mg PO BID 03/04/19 05/02/22 History amLODIPine [Norvasc] 5 mg PO BID 06/25/19 05/02/22 History Albuterol Nebulized [Ventolin 2.5 mg INHALATION RT-QID PRN 03/06/20 05/02/22 History Nebulized] Albuterol Sulfate [Ventolin HFA] 2 puff INHALATION RT-QID PRN 03/06/20 05/02/22 History SILVER sulfADIAZINE CREAM 1 applic TOPICAL BID 03/06/20 05/02/22 History [Silvadene Cream] Ergocalciferol (Vitamin D2) 1,250 mcg PO MO 04/11/22 05/02/22 History [Drisdol (50,000 Iu)] Tamsulosin HCl [Flomax] 0.4 mg PO DAILY 04/11/22 05/02/22 History Aspirin EC [Ecotrin Low Dose] 81 mg PO DAILY #30 tab 04/16/22 05/02/22 Rx Budesonide-Formot 160-4.5 Mcg 2 puff INHALATION RT-BID #1 each 04/16/22 05/02/22 Rx [Symbicort 160-4.5 Mcg Inhaler] Metoprolol Succinate (ER) [Toprol 12.5 mg PO DAILY #30 tab 04/16/22 05/02/22 Rx XL] Morphine Sulfate 20mg/5ml 10 - 20 mg PO QID PRN 05/02/22 05/02/22 History Omeprazole 20 mg PO DAILY 05/02/22 05/02/22 History Ondansetron Odt [Zofran Odt] 8 mg PO Q8HR PRN 05/02/22 05/02/22 History Allergies Allergy/AdvReac Type Severity Reaction Status Date / Time Penicillins Allergy Rash/Hives Verified 05/02/22 22:18 gabapentin AdvReac Hallucinati Verified 05/02/22 22:18 ons/AMS Physical Exam Vitals: Vital Signs Temp Pulse Pulse Resp BP Pulse Ox FiO2 05/03/22 13:00 73 15 132/72 93 L 05/03/22 12:00 97.9 F 73 12 130/77 93 L 40 05/03/22 11:00 71 33 H 130/77 80 L 05/03/22 10:32 30 05/03/22 10:00 67 18 124/75 89 L 05/03/22 09:00 64 18 106/65 90 L 05/03/22 08:50 64 18 106/65 89 L 05/03/22 08:40 62 18 107/68 89 L 05/03/22 08:30 61 18 105/69 89 L 05/03/22 08:20 59 L 18 105/69 94 L 05/03/22 08:10 63 18 110/63 90 L 05/03/22 08:09 63 05/03/22 08:00 98.6 F 62 18 96/64 90 L 30 05/03/22 07:50 58 L 18 96/64 91 L 05/03/22 07:47 30 05/03/22 07:40 56 L 18 101/64 92 L 05/03/22 07:30 55 L 18 99/65 92 L 05/03/22 07:20 55 L 18 99/65 92 L 05/03/22 07:10 55 L 18 96/66 93 L 05/03/22 07:00 98.4 F 54 L 18 92/60 92 L 05/03/22 06:50 53 L 18 92/60 94 L 05/03/22 06:40 52 L 18 82/57 97 05/03/22 06:30 55 L 18 90/59 93 L 05/03/22 06:20 54 L 18 90/59 95 05/03/22 06:15 53 L 18 89/59 93 L 05/03/22 06:00 54 L 18 92/60 95 05/03/22 05:51 30 05/03/22 05:45 52 L 18 86/60 97 05/03/22 05:30 53 L 18 82/57 97 05/03/22 05:15 54 L 18 84/58 98 05/03/22 05:00 97.7 F 53 L 18 99/69 98 05/03/22 04:45 52 L 18 95/66 99 05/03/22 04:30 52 L 18 92/66 96 05/03/22 04:15 51 L 18 100/68 96 05/03/22 04:00 96.3 F L 52 L 52 L 18 96/63 98 40 05/03/22 03:45 51 L 18 92/64 97 05/03/22 03:30 95.1 F L 52 L 18 104/71 95 05/03/22 03:25 40 05/03/22 03:15 51 L 18 105/70 99 05/03/22 03:00 47 L 19 101/69 96 05/03/22 02:45 48 L 18 98/64 95 05/03/22 02:30 50 L 18 89/60 96 05/03/22 02:19 40 05/03/22 02:15 49 L 18 84/62 05/03/22 02:00 50 L 18 90/59 100 05/03/22 01:45 52 L 18 77/56 100 05/03/22 01:38 50 05/03/22 01:30 55 L 18 157/83 100 100 05/03/22 01:15 70 18 160/99 99 05/03/22 01:00 74 50 L 18 83/49 86 L 100 05/03/22 00:52 100 05/03/22 00:50 64 10 L 64/38 93 L 05/03/22 00:40 64 14 68/37 05/03/22 00:30 64 21 88/50 91 L 05/03/22 00:20 64 11 L 88/50 93 L 05/03/22 00:10 65 12 91/51 93 L 05/03/22 00:00 98.2 F 67 12 81/47 96 50 05/02/22 23:55 50 05/02/22 23:16 68 85/56 98 05/02/22 23:12 69 76/45 97 05/02/22 22:55 68 12 78/48 92 L 05/02/22 22:45 70 12 85/55 95 05/02/22 22:00 12 05/02/22 21:43 99 05/02/22 21:38 90 L 05/02/22 21:36 8 L 05/02/22 21:35 62 L 05/02/22 18:30 97.6 F 83 16 152/88 89 L Intake and Output 05/02/22 05/03/22 05/03/22 22:59 06:59 14:59 Intake Total 746.497 111.796 Output Total 660 1165 Balance 86.497 -1053.204 Intake: IV 80 100 0.9 @ 20 80 100 Intake, IV Titration 666.497 11.796 Amount Norepinephrine 4 mg In 43.500 11.796 Sodium Chloride 0.9% 250 ml @ 0.03 MCG/KG/MIN 9. 073 mls/hr IV .Q24H [facility] Rx#:[id number] Sodium Chloride 0.9% 500 500 ml 500 ml @ 999 mls/hr IV .Q31M [facility] Rx#:[id number] propofoL 1,000 mg In 122.997 Empty Bag 1 bag @ 15 MCG/ KG/MIN 7.144 mls/hr IV . Q14H [facility] Rx#:[id number] Output: Gastric Drainage 200 1000 Urine 460 165 Other: Voiding Method Indwelling Catheter Indwelling Catheter Weight 80.286 kg 80.286 kg PHYSICAL EXAM: VITAL SIGNS: As above GENERAL: Sitting up in bed, intubated, sedated ,no acute distress HEENT: Atraumatic, normocephalic ,Conjunctivae normal. Intubated. NECK: Supple, No JVD. CARDIOVASCULAR: S1, S2 regular. No murmur RESPIRATION: Breath sounds diminished in the bases. No rhonchi or crackles. No wheezing. ABDOMEN: Soft, nontender .no masses palpable.Bowel sounds heard. LEGS: No edema. no swelling PSYCHIATRY: Unable to assess, patient sedated and intubated NERVOUS SYSTEM: Unable to assess, patient sedated and intubated Skin: Warm and dry, no rash Results CBC & Chem 7: 05/03/22 05:47 05/03/22 05:47 Labs: Abnormal Lab Results - Last 24 Hours (Table) 05/02/22 05/02/22 05/02/22 Range/Units 18:55 18:55 23:52 RBC 4.07 L (4.30-5.90) m/uL Hgb 12.2 L (13.0-17.5) gm/dL Hct (39.0-53.0) % Plt Count 140 L (150-450) k/uL Neutrophils # 7.9 H (1.3-7.7) k/uL Lymphocytes # 0.2 L (1.0-4.8) k/uL ABG pH (7.35-7.45) ABG pCO2 (35-45) mmHg ABG pO2 (83-108) mmHg ABG HCO3 (21-25) mmol/L ABG Total CO2 (19-24) mmol/L ABG O2 Saturation (94-97) % Sodium 136 L (137-145) mmol/L Chloride 94 L (98-107) mmol/L Carbon Dioxide 39 H (22-30) mmol/L BUN 30 H (9-20) mg/dL Creatinine 1.26 H (0.66-1.25) mg/dL Glucose 221 H (74-99) mg/dL POC Glucose (mg/dL) 125 H (70-110) mg/dL Calcium 7.7 L (8.4-10.2) mg/dL AST 15 L (17-59) U/L Total Protein 5.9 L (6.3-8.2) g/dL Albumin 3.2 L (3.5-5.0) g/dL Urine Protein (Negative) Urine Blood (Negative) Urine WBC (0-5) /hpf Hyaline Casts (0-2) /lpf Urine Mucus (None) /hpf Urine Opiates Screen (NotDetected) 05/03/22 05/03/22 05/03/22 Range/Units 00:10 00:28 01:00 RBC (4.30-5.90) m/uL Hgb (13.0-17.5) gm/dL Hct (39.0-53.0) % Plt Count (150-450) k/uL Neutrophils # (1.3-7.7) k/uL Lymphocytes # (1.0-4.8) k/uL ABG pH 7.07 L* 7.06 L* (7.35-7.45) ABG pCO2 >120 H* >120 H* (35-45) mmHg ABG pO2 71 L 68 L (83-108) mmHg ABG HCO3 (21-25) mmol/L ABG Total CO2 (19-24) mmol/L ABG O2 Saturation 93.4 L (94-97) % Sodium (137-145) mmol/L Chloride (98-107) mmol/L Carbon Dioxide (22-30) mmol/L BUN (9-20) mg/dL Creatinine (0.66-1.25) mg/dL Glucose (74-99) mg/dL POC Glucose (mg/dL) (70-110) mg/dL Calcium (8.4-10.2) mg/dL AST (17-59) U/L Total Protein (6.3-8.2) g/dL Albumin (3.5-5.0) g/dL Urine Protein 1+ H (Negative) Urine Blood Trace H (Negative) Urine WBC 11 H (0-5) /hpf Hyaline Casts 53 H (0-2) /lpf Urine Mucus Moderate H (None) /hpf Urine Opiates Screen (NotDetected) 05/03/22 05/03/22 05/03/22 Range/Units 01:00 01:35 05:45 RBC (4.30-5.90) m/uL Hgb (13.0-17.5) gm/dL Hct (39.0-53.0) % Plt Count (150-450) k/uL Neutrophils # (1.3-7.7) k/uL Lymphocytes # (1.0-4.8) k/uL ABG pH 7.21 L (7.35-7.45) ABG pCO2 83 H* 52 H (35-45) mmHg ABG pO2 >400 H 67 L (83-108) mmHg ABG HCO3 33 H 35 H (21-25) mmol/L ABG Total CO2 36 H 37 H (19-24) mmol/L ABG O2 Saturation 100.0 H 97.3 H (94-97) % Sodium (137-145) mmol/L Chloride (98-107) mmol/L Carbon Dioxide (22-30) mmol/L BUN (9-20) mg/dL Creatinine (0.66-1.25) mg/dL Glucose (74-99) mg/dL POC Glucose (mg/dL) (70-110) mg/dL Calcium (8.4-10.2) mg/dL AST (17-59) U/L Total Protein (6.3-8.2) g/dL Albumin (3.5-5.0) g/dL Urine Protein (Negative) Urine Blood (Negative) Urine WBC (0-5) /hpf Hyaline Casts (0-2) /lpf Urine Mucus (None) /hpf Urine Opiates Screen Detected H (NotDetected) 05/03/22 05/03/22 Range/Units 05:47 05:47 RBC 3.67 L (4.30-5.90) m/uL Hgb 11.2 L (13.0-17.5) gm/dL Hct 34.8 L (39.0-53.0) % Plt Count 125 L (150-450) k/uL Neutrophils # (1.3-7.7) k/uL Lymphocytes # 0.9 L (1.0-4.8) k/uL ABG pH (7.35-7.45) ABG pCO2 (35-45) mmHg ABG pO2 (83-108) mmHg ABG HCO3 (21-25) mmol/L ABG Total CO2 (19-24) mmol/L ABG O2 Saturation (94-97) % Sodium 136 L (137-145) mmol/L Chloride (98-107) mmol/L Carbon Dioxide 32 H (22-30) mmol/L BUN 32 H (9-20) mg/dL Creatinine (0.66-1.25) mg/dL Glucose 72 L (74-99) mg/dL POC Glucose (mg/dL) (70-110) mg/dL Calcium 7.4 L (8.4-10.2) mg/dL AST 13 L (17-59) U/L Total Protein 5.1 L (6.3-8.2) g/dL Albumin 2.8 L (3.5-5.0) g/dL Urine Protein (Negative) Urine Blood (Negative) Urine WBC (0-5) /hpf Hyaline Casts (0-2) /lpf Urine Mucus (None) /hpf Urine Opiates Screen (NotDetected) Microbiology - Last 24 Hours (Table) 05/03/22 01:00 Sputum Culture - Preliminary Sputum 05/03/22 01:00 Urine Culture - Preliminary Urine,Voided Thrombosis Risk Factor Assmnt - Choose All That Apply Each Factor Represents 1 point: Abnormal pulmonary function (COPD), Heart failure (<1month), Medical pt on bed rest Each Risk Factor Represents 2 Points: Age 61-74 years Thrombosis Risk Factor Assessment Total Risk Factor Score: 5 Thrombosis Risk Factor Assessment Level: High Risk Assessment and Plan Assessment: Acute hypoxic, hypercapnic respiratory failure secondary to reported accidental opiate overdose Chronic hypoxic, hypercapnic respiratory failure Laryngeal carcinoma, received 3/ treatments of radiation to date. Elevated troponin,NSTEMI, cardiology following CAD Hypertension Hyperlipidemia Ongoing nicotine dependence Autoimmune disease, follows with both Dr. Goins and Anil Lara inside steward/stewardess OP History of Abdominal aortic aneurysm, outpatient monitoring Plan: Continue on current medication regime ,monitoring and symptomatic treatment. ICU management as per felling machine operator. Weaning trials ordered for this morning. Prognosis guarded given multiple complex medical issues. The impression and plan of care has been dictated as directed. : I performed a history and examination of this patient, discussed the same with the dictator. I agree with the dictator's note ,documented as a scribe. Any additional findings or plans will be noted.
[2022-05-03] MEDS: HEPARIN SODIUM,PORCINE/PF 5,000 UNIT/0.5 ML SYRINGE SQ SCH ×2 (16:01→23:18)
[2022-05-03] MEDS: ASPIRIN 81 MG PO SCH (16:01)
[2022-05-03] MEDS: SODIUM CHLORIDE 0.9% 1,000 ML IV SCH (16:02)
[2022-05-03] MEDS ORDERED: SODIUM CHLORIDE 0.9% 500 ML 500 ML IV ONE (16:30)
[2022-05-03] MEDS: TAMSULOSIN 0.4 MG CAP.ER.24H PO SCH (19:55)
[2022-05-03] MEDS: ATORVASTATIN 80 MG TAB PO SCH (19:55)
[2022-05-03] MEDS: LORazepam 2 MG/ML INJ IV PRN (21:50)
[2022-05-04] MEDS: IPRATROPIUM-ALBUTEROL 3 ML NEB INHALATION SCH ×6 (04:05→23:54)
[2022-05-04] MEDS: PANTOPRAZOLE 40 MG/10 ML VIAL IVP SCH (06:54)
[2022-05-04 07:09] LABS: ALT 13 U/L (4-49); AST 16 U/L (17-59); African American GFR (CKD) >90 (>60 ml/min/1.73 sqM); Albumin 2.5 g/dL (3.5-5.0); Alkaline Phosphatase 70 U/L (38-126); Anion Gap 1 mmol/L; Blood Urea Nitrogen 27 mg/dL (9-20); Calcium 7.2 mg/dL (8.4-10.2); Carbon Dioxide 34 mmol/L (22-30); Chloride 102 mmol/L (98-107); Glucose 84 mg/dL (74-99); Magnesium 2.1 mg/dL (1.6-2.3); Non-African American GFR(CKD) >90 (>60 ml/min/1.73 sqM); Potassium 3.8 mmol/L (3.5-5.1); Sodium 137 mmol/L (137-145); Total Bilirubin 0.7 mg/dL (0.2-1.3); Total Protein 4.8 g/dL (6.3-8.2)
[2022-05-04 07:13] LABS: Basophils % (A) 0 %; Eosinophils # (A) 0.1 k/uL (0-0.7); Eosinophils % (A) 2 %; HCT 34.5 % (39.0-53.0); Hypochromasia Slight; Lymphocytes # (A) 0.5 k/uL (1.0-4.8); Lymphocytes % (A) 10 %; MCH 29.7 pg (25.0-35.0); MCV 92.8 fL (80.0-100.0); Mean Platelet Volume 9.1; Monocytes # (A) 0.4 k/uL (0-1.0); Monocytes % (A) 7 %; Neutrophils # (A) 4.2 k/uL (1.3-7.7); Neutrophils % (A) 79 %; Platelet Count 156 k/uL (150-450); RBC 3.72 m/uL (4.30-5.90); RDW 14.3 % (11.5-15.5); WBC 5.4 k/uL (3.8-10.6)
[2022-05-04] MEDS ORDERED: PANTOPRAZOLE 40 MG TABLET PO SCH (07:30)
[2022-05-04] MEDS ORDERED: Potassium Replacement Protocol 1 EACH MISC MISCELLANE PRN (07:47)
--- NOTE | 2022-05-04 08:26 | XR ---
EXAMINATION TYPE: XR chest 1V portable DATE OF EXAM: 05/04/2022 Comparison: 05/03/2022 Clinical History: 71-year-old male Tube placement Findings: Interval extubation. Heart normal size. Atherosclerotic calcifications. Hyperinflation. Diffuse inter stitial thickening persists. No progressive consolidation or sizable pleural effusion. IMPRESSION: COPD. Bilateral interstitial opacities persist. Consider pulmonary vascular congestion or atypical pn eumonias.
[2022-05-04] MEDS: HEPARIN SODIUM,PORCINE/PF 5,000 UNIT/0.5 ML SYRINGE SQ SCH ×2 (09:21→17:01)
[2022-05-04] MEDS: POTASSIUM CHLORIDE 10 MEQ in WATER FOR INJECTION 1 100ML.BAG IVPB SCH ×2 (09:22→13:23)
[2022-05-04] MEDS: ASPIRIN 81 MG PO SCH (09:22)
--- NOTE | 2022-05-04 12:05 | P.PN ---
Subjective Progress Note Date: 05/04/22 Principal diagnosis: Acute hypoxic and hypercapnic respiratory failure secondary to opiate overdose This is a 71-year-old white male with history of multiple medical problems inclu ding diabetes, history of dyslipidemia, laryngeal cancer, chronic pain syndrome, patient had radiation to his throat cancer 3 days prior. Apparently the patient accidentally overdosed on his liquid morphine sulfate at home, and notified EMS, patient was given Narcan with minimal improvement. Arrived to the ER, patient was placed on a Narcan drip, and his mental status was waxing and waning while on Narcan drip. However when I was notified by the ER physician I was told that the patient was awake, responsive, and did not seem to be in any respiratory distress. However considering the patient was on Narcan drip, I accepted the patient to go to the ICU. Shortly after he arrived to the ICU, I was notified by the nurse that the patient is becoming less and less responsive. He was only responsive to deep painful stimuli. ABG showed a pO2 of 68 pCO2 of more than 120 and his pH was 7.06. This was on 50% FiO2. Recommended intubating the patient, he was intubated, and immediate ABG post intubation showed a pO2 of more than 400 pCO2 down to 83 pH of 7.21. ABG this morning showed a pO2 of 67 pCO2 of 52 pH of 7.44 patient is now off Narcan, he was on propofol earlier which I have discontinued and suggested that to wean the patient on mechanical ventilation and possibly extubate to BiPAP later in the next couple of hours. All labs were noted to be relatively unremarkable, pat ient had positive drug screen for opiates. Chest x-ray this morning showed no evidence of infiltrates, chronic parenchymal senescent changes noted in the lungs bilaterally. His chest x-ray is not much different from a recent chest x- ray. Reevaluated today on 05/04/22, patient remains in the ICU, he was extubated yesterday and tolerated the extubation well. He is on 5 L nasal cannula, he is off BiPAP, not in any distress, patient continues to have intermittent cough and wheezing, hence I'm recommending Solu-Medrol today, I'm also recommending adding Symbicort, agent is already on updrafts, and I plan to transfer the patient out of the ICU to a regular medical floor. CBC is relatively unremarkable. Electrolytes are normal, bicarb is elevated at 34, this may imply that the patient may have chronic respiratory acidosis with metabolic compensation Objective - Vital Signs Vital signs: Vital Signs Temp 98.8 F 05/04/22 09:00 Pulse 84 05/04/22 10:00 Resp 22 05/04/22 10:00 BP 134/80 05/04/22 10:00 Pulse Ox 96 05/04/22 10:00 FiO2 40 05/04/22 07:48 Intake & Output 05/03/22 05/04/22 05/04/22 18:59 06:59 18:59 Intake Total 711.796 190 357 Output Total 1370 545 90 Balance -658.204 -382 267 Weight 77.564 kg Intake: IV 160 20 0.9 @ 20 160 20 Intake, IV Titration 551.796 190 100 Amount Norepinephrine 4 mg In 11.796 Sodium Chloride 0.9% 250 ml @ 0.03 MCG/KG/MIN 9. 073 mls/hr IV .Q24H [facility] Rx#:[id number] Potassium Chloride 10 meq 100 In Water For Injection 1 100ml.bag @ 100 mls/hr IVPB Q1H [facility] Rx#: [id number] Sodium Chloride 0.9% 1, 40 190 000 ml @ 10 mls/hr IV . Q24H [facility] Rx#:[id number] Sodium Chloride 0.9% 500 500 ml 500 ml @ 999 mls/hr IV .Q31M [facility] Rx#:[id number] Oral 237 Output: Gastric Drainage 1000 Urine 370 545 90 Other: Voiding Method Indwelling Catheter Indwelling Catheter Indwelling Catheter - Exam Physical Exam: Revealed 71-year-old white male in no distress, on 5 L nasal cannula Head: Atraumatic normocephalic HEENT:[Neck is supple.] [No neck masses.] [No thyromegaly.] [No JVD.] Chest: Scattered rhonchi and wheezes bilaterally more so on forced expiratory maneuver Cardiac Exam: [Normal S1 and S2, no S3 gallop, no murmur.] Abdomen: [Soft, nontender, no megaly, no rebound, no guarding, normal bowel sounds.] Extremities: [No clubbing, no edema, no cyanosis.] Neurological Exam: [No focal neurologic deficit.] Alert oriented 3 Psychiatric: Normal mood affect and normal mental status examination. Skin: No rashes - Labs CBC & Chem 7: 05/04/22 06:11 05/04/22 06:11 Labs: Abnormal Lab Results - Last 24 Hours (Table) 05/04/22 05/04/22 Range/Units 06:11 06:11 RBC 3.72 L (4.30-5.90) m/uL Hgb 11.0 L (13.0-17.5) gm/dL Hct 34.5 L (39.0-53.0) % Lymphocytes # 0.5 L (1.0-4.8) k/uL Carbon Dioxide 34 H (22-30) mmol/L BUN 27 H (9-20) mg/dL Creatinine 0.57 L (0.66-1.25) mg/dL Calcium 7.2 L (8.4-10.2) mg/dL AST 16 L (17-59) U/L Total Protein 4.8 L (6.3-8.2) g/dL Albumin 2.5 L (3.5-5.0) g/dL Microbiology - Last 24 Hours (Table) 05/03/22 01:00 Gram Stain - Preliminary Sputum Sputum Culture - Preliminary 05/03/22 01:00 Urine Culture - Final Urine,Voided Assessment and Plan Assessment: Impression: Acute hypoxic and hypercapnic respiratory failure secondary to opiate overdose/accidental. History of recently diagnosed laryngeal cancer History of underlying COPD, this morning his COPD seems to be active and I [place] the patient has acute exacerbation of COPD Chronic pain syndrome Benign essential hypertension Dyslipidemia History of benign prostatic hypertrophy Recommendation: Continue oxygen and titrate accordingly Continue updrafts and will add Symbicort and Solu-Medrol. Transfer patient to a regular medical floor for the next 24 hours possibly before discharging the patient home GI and DVT prophylaxis Advanced diet as tolerated. Counseled regarding smoking cessation We will continue to follow. Time with Patient: Less than 30
[2022-05-04] MEDS: methylPREDNISolone SOD SUCCI 125 MG/2 ML VIAL IV SCH ×2 (13:23→17:01)
--- NOTE | 2022-05-04 14:56 | P.PN ---
Subjective Progress Note Date: 05/04/22 H&P Date: 05/03/22 This is a 71-year-old gentleman with past medical history of recently diagnosed laryngeal cancer -receiving radiation treatments (3 txs) by Dr. Rios at [facility], severe COPD, nicotine dependence, CAD, hypertension and multiple other medical issues, admitted with reported overdose of morphine sulfate. Per ER records, patient accidentally overdosed on his liquid morphine at home, notified EMS, Narcan administered with minimal improvement. On arrival to ER placed on Narcan drip, admitted to ICU, continued to decline, intubated shortly thereafter. Narcan drip weaned off. Afebrile, normal WBC, hemoglobin 11.2, platelets 125, ABGs noted, sodium 136, potassium 4.6, bicarb 32, BUN 32, creatinine 1.06, magnesium 1.9, glucose 72-200s, UA negative, toxicology positive for opiates, serum alcohol less than 10. 05/04/22 extubated yesterday, last night developed mild anxiety/agitation, received IV Ativan-drowsy this morning. BiPAP during the night, currently off. Maintaining O2 sats in the 90s on 5 L nasal cannula. Afebrile, normal WBC, sputum culture pending, urine culture negative. Renal function stable, bicarb 34. Objective - Vital Signs Vital signs: Vital Signs Temp 97.9 F 05/04/22 13:33 Pulse 85 05/04/22 13:33 Resp 22 05/04/22 13:33 BP 103/65 05/04/22 13:33 Pulse Ox 93 L 05/04/22 13:33 FiO2 40 05/04/22 07:48 Intake & Output 05/03/22 05/04/22 05/04/22 18:59 06:59 18:59 Intake Total 711.796 190 357 Output Total 1370 545 90 Balance -658.204 -355 267 Weight 77.564 kg Intake: IV 160 20 0.9 @ 20 160 20 Intake, IV Titration 551.796 190 100 Amount Norepinephrine 4 mg In 11.796 Sodium Chloride 0.9% 250 ml @ 0.03 MCG/KG/MIN 9. 073 mls/hr IV .Q24H [facility] Rx#:[id number] Potassium Chloride 10 meq 100 In Water For Injection 1 100ml.bag @ 100 mls/hr IVPB Q1H [facility] Rx#: [id number] Sodium Chloride 0.9% 1, 40 190 000 ml @ 10 mls/hr IV . Q24H [facility] Rx#:[id number] Sodium Chloride 0.9% 500 500 ml 500 ml @ 999 mls/hr IV .Q31M [facility] Rx#:[id number] Oral 237 Output: Gastric Drainage 1000 Urine 370 545 90 Other: Voiding Method Indwelling Catheter Indwelling Catheter Indwelling Catheter - Exam PHYSICAL EXAM: VITAL SIGNS: As above GENERAL: Sitting up in bed, drowsy ,no acute distress HEENT: Atraumatic, normocephalic ,Conjunctivae normal. NECK: Supple, No JVD. CARDIOVASCULAR: S1, S2 regular. No murmur RESPIRATION: Breath sounds diminished in the bases. Scattered rhonchi, expiratory wheezing. ABDOMEN: Soft, nontender .no masses palpable.Bowel sounds heard. LEGS: No edema. no swelling PSYCHIATRY: Alert and oriented 2, mood and affect normal. NERVOUS SYSTEM: Limited exam; droggy- Cranial nerves II through XII grossly intact. Skin: Warm and dry, no rash - Labs CBC & Chem 7: 05/04/22 06:11 05/04/22 06:11 Labs: Abnormal Lab Results - Last 24 Hours (Table) 05/04/22 05/04/22 Range/Units 06:11 06:11 RBC 3.72 L (4.30-5.90) m/uL Hgb 11.0 L (13.0-17.5) gm/dL Hct 34.5 L (39.0-53.0) % Lymphocytes # 0.5 L (1.0-4.8) k/uL Carbon Dioxide 34 H (22-30) mmol/L BUN 27 H (9-20) mg/dL Creatinine 0.57 L (0.66-1.25) mg/dL Calcium 7.2 L (8.4-10.2) mg/dL AST 16 L (17-59) U/L Total Protein 4.8 L (6.3-8.2) g/dL Albumin 2.5 L (3.5-5.0) g/dL Microbiology - Last 24 Hours (Table) 05/03/22 01:00 Gram Stain - Preliminary Sputum Sputum Culture - Preliminary 05/03/22 01:00 Urine Culture - Final Urine,Voided Assessment and Plan Assessment: Acute hypoxic, hypercapnic respiratory failure secondary to reported accidental opiate overdose Chronic hypoxic, hypercapnic respiratory failure Laryngeal carcinoma Chronic pain syndrome CAD Hypertension Hyperlipidemia Ongoing nicotine dependence Autoimmune disease, follows with both Dr. Goins and Anil Lara vascular radiologist OP History of Abdominal aortic aneurysm, outpatient monitoring Plan: Continue on current medication regime ,monitoring and symptomatic treatment. ICU management as per electrical hardware engineer. Aggressive pulmonary toileting with nebulized bronchodilators, IV steroids. Smoking cessation reinforced. Prognosis guarded given multiple complex medical issues. The impression and plan of care has been dictated as directed. : I performed a history and examination of this patient, discussed the same with the dictator. I agree with the dictator's note ,documented as a scribe. Any additional findings or plans will be noted.
[2022-05-04] MEDS: SODIUM CHLORIDE 0.9% 1,000 ML IV SCH (17:04)
[2022-05-04] MEDS: SYMBICORT 160-4.5 MCG INHALER INHALATION SCH (21:00)
[2022-05-04] MEDS: ATORVASTATIN 80 MG TAB PO SCH (21:44)
[2022-05-04] MEDS: TAMSULOSIN 0.4 MG CAP.ER.24H PO SCH (21:44)
[2022-05-04] MEDS: LORazepam 2 MG/ML INJ IV PRN (23:00)
[2022-05-05] MEDS: methylPREDNISolone SOD SUCCI 125 MG/2 ML VIAL IV SCH ×2 (01:00→07:07)
[2022-05-05] MEDS: HEPARIN SODIUM,PORCINE/PF 5,000 UNIT/0.5 ML SYRINGE SQ SCH ×3 (01:00→16:37)
[2022-05-05] MEDS: IPRATROPIUM-ALBUTEROL 3 ML NEB INHALATION SCH ×5 (03:31→20:43)
[2022-05-05 06:50] LABS: Basophils % (A) 0 %; Eosinophils % (A) 0 %; HCT 36.4 % (39.0-53.0); HGB 11.9 gm/dL (13.0-17.5); Lymphocytes # (A) 0.2 k/uL (1.0-4.8); Lymphocytes % (A) 5 %; MCH 29.9 pg (25.0-35.0); MCHC 32.6 g/dL (31.0-37.0); MCV 91.7 fL (80.0-100.0); Mean Platelet Volume 8.6; Monocytes # (A) 0.1 k/uL (0-1.0); Monocytes % (A) 2 %; Neutrophils # (A) 3.7 k/uL (1.3-7.7); Neutrophils % (A) 92 %; Platelet Count 191 k/uL (150-450); RBC 3.97 m/uL (4.30-5.90); RDW 14.1 % (11.5-15.5)
[2022-05-05 07:01] LABS: ALT 14 U/L (4-49); AST 15 U/L (17-59); African American GFR (CKD) >90 (>60 ml/min/1.73 sqM); Albumin 2.9 g/dL (3.5-5.0); Alkaline Phosphatase 75 U/L (38-126); Anion Gap 3 mmol/L; Blood Urea Nitrogen 27 mg/dL (9-20); Calcium 7.8 mg/dL (8.4-10.2); Carbon Dioxide 31 mmol/L (22-30); Chloride 104 mmol/L (98-107); Glucose 145 mg/dL (74-99); Magnesium 2.1 mg/dL (1.6-2.3); Non-African American GFR(CKD) >90 (>60 ml/min/1.73 sqM); Potassium 4.3 mmol/L (3.5-5.1); Sodium 138 mmol/L (137-145); Total Bilirubin 0.6 mg/dL (0.2-1.3); Total Protein 5.6 g/dL (6.3-8.2)
[2022-05-05] MEDS: PANTOPRAZOLE 40 MG/10 ML VIAL IVP SCH (07:07)
[2022-05-05] MEDS: SYMBICORT 160-4.5 MCG INHALER INHALATION SCH ×2 (07:38→20:43)
[2022-05-05] MEDS: ASPIRIN 81 MG PO SCH (08:57)
[2022-05-05] MEDS: NOREPINEPHRINE 4 MG in SODIUM CHLORIDE 0.9% 250 ML IV SCH (10:14)
--- NOTE | 2022-05-05 12:12 | P.PN ---
Subjective Progress Note Date: 05/05/22 Principal diagnosis: Acute hypoxic and hypercapnic respiratory failure secondary to opiate overdose This is a 71-year-old white male with history of multiple medical problems inclu ding diabetes, history of dyslipidemia, laryngeal cancer, chronic pain syndrome, patient had radiation to his throat cancer 3 days prior. Apparently the patient accidentally overdosed on his liquid morphine sulfate at home, and notified EMS, patient was given Narcan with minimal improvement. Arrived to the ER, patient was placed on a Narcan drip, and his mental status was waxing and waning while on Narcan drip. However when I was notified by the ER physician I was told that the patient was awake, responsive, and did not seem to be in any respiratory distress. However considering the patient was on Narcan drip, I accepted the patient to go to the ICU. Shortly after he arrived to the ICU, I was notified by the nurse that the patient is becoming less and less responsive. He was only responsive to deep painful stimuli. ABG showed a pO2 of 68 pCO2 of more than 120 and his pH was 7.06. This was on 50% FiO2. Recommended intubating the patient, he was intubated, and immediate ABG post intubation showed a pO2 of more than 400 pCO2 down to 83 pH of 7.21. ABG this morning showed a pO2 of 67 pCO2 of 52 pH of 7.44 patient is now off Narcan, he was on propofol earlier which I have discontinued and suggested that to wean the patient on mechanical ventilation and possibly extubate to BiPAP later in the next couple of hours. All labs were noted to be relatively unremarkable, pat ient had positive drug screen for opiates. Chest x-ray this morning showed no evidence of infiltrates, chronic parenchymal senescent changes noted in the lungs bilaterally. His chest x-ray is not much different from a recent chest x- ray. Reevaluated today on 05/04/22, patient remains in the ICU, he was extubated yesterday and tolerated the extubation well. He is on 5 L nasal cannula, he is off BiPAP, not in any distress, patient continues to have intermittent cough and wheezing, hence I'm recommending Solu-Medrol today, I'm also recommending adding Symbicort, agent is already on updrafts, and I plan to transfer the patient out of the ICU to a regular medical floor. CBC is relatively unremarkable. Electrolytes are normal, bicarb is elevated at 34, this may imply that the patient may have chronic respiratory acidosis with metabolic compensation Reevaluated today on 06/01/22, patient is feeling better today, no cough no wheezing no shortness of breath, patient did receive Solu-Medrol yesterday. He was getting delusional yesterday, and he responded well to Ativan. Apparently the patient drinks about 3-4 beers a week, today I discontinued his Solu-Medrol as may be a contributing factor to his agitation. Patient is on nasal cannula at 5 L/m, O2 sats is on the percent. Dramatic improvement since admission, patient will likely be transferred to a regular medical floor today, and if agreeable by the admitting physician, I will clear the patient to discharge if possible. CBC is relatively normal, basic metabolic profile and renal profile are normal Objective - Vital Signs Vital signs: Vital Signs Temp 97.7 F 05/05/22 08:59 Pulse 68 05/05/22 11:41 Resp 19 05/05/22 08:59 BP 157/97 05/05/22 08:59 Pulse Ox 100 05/05/22 08:59 FiO2 40 05/05/22 07:40 Intake & Output 05/04/22 05/05/22 05/05/22 18:59 06:59 18:59 Intake Total 357 20 240 Output Total 890 335 Balance -533 -315 240 Intake: IV 20 20 0.9 @ 20 20 20 Intake, IV Titration 100 Amount Potassium Chloride 10 meq 100 In Water For Injection 1 100ml.bag @ 100 mls/hr IVPB Q1H [facility] Rx#: [id number] Oral 237 240 Output: Urine 890 335 Other: Voiding Method Indwelling Catheter Indwelling Catheter Indwelling Catheter - Exam Physical Exam: Revealed 71-year-old white male in no distress, on 5 L nasal cannula, O2 sat is 100%. Head: Atraumatic normocephalic HEENT:[Neck is supple.] [No neck masses.] [No thyromegaly.] [No JVD.] Chest: Diminished breath sound bilaterally no crackles or rhonchi or wheezes lungs are much better today compared to yesterday Cardiac Exam: [Normal S1 and S2, no S3 gallop, no murmur.] Abdomen: [Soft, nontender, no megaly, no rebound, no guarding, normal bowel sounds.] Extremities: [No clubbing, no edema, no cyanosis.] Neurological Exam: [No focal neurologic deficit.] Alert oriented 3 Psychiatric: Normal mood affect and normal mental status examination. Skin: No rashes - Labs CBC & Chem 7: 05/05/22 06:06 05/05/22 06:06 Labs: Abnormal Lab Results - Last 24 Hours (Table) 05/05/22 05/05/22 Range/Units 06:06 06:06 RBC 3.97 L (4.30-5.90) m/uL Hgb 11.9 L (13.0-17.5) gm/dL Hct 36.4 L (39.0-53.0) % Lymphocytes # 0.2 L (1.0-4.8) k/uL Carbon Dioxide 31 H (22-30) mmol/L BUN 27 H (9-20) mg/dL Creatinine 0.56 L (0.66-1.25) mg/dL Glucose 145 H (74-99) mg/dL Calcium 7.8 L (8.4-10.2) mg/dL AST 15 L (17-59) U/L Total Protein 5.6 L (6.3-8.2) g/dL Albumin 2.9 L (3.5-5.0) g/dL Microbiology - Last 24 Hours (Table) 05/03/22 01:00 Gram Stain - Final Sputum Sputum Culture - Final 05/03/22 01:00 Urine Culture - Final Urine,Voided Assessment and Plan Assessment: Impression: Acute hypoxic and hypercapnic respiratory failure secondary to opiate overdose/accidental. History of recently diagnosed laryngeal cancer History of underlying COPD, this morning his COPD seems to be active and I believe the patient has acute exacerbation of COPD Chronic pain syndrome Benign essential hypertension Dyslipidemia History of benign prostatic hypertrophy Recommendation: Continue oxygen and titrate accordingly Continue updrafts and will add Symbicort however discontinue Solu-Medrol and avoid steroids for now mostly because of the agitation he had yesterday may or may not be steroids related. Consider discharge planning home. GI and DVT prophylaxis Continue to advance diet as tolerated Counseled regarding smoking cessation We will continue to follow. Time with Patient: Less than 30
--- NOTE | 2022-05-05 14:29 | P.PN ---
Subjective Progress Note Date: 05/05/22 This is a 71-year-old gentleman with past medical history of recently diagnosed laryngeal cancer -receiving radiation treatments (08/21 txs) [address] Dr[address] Rios at [facility], severe COPD, nicotine dependence, CAD, hypertension and multiple other medical issues, admitted with reported overdose of morphine sulfate. Per ER records, patient accidentally overdosed on his liquid morphine at home, notified EMS, Narcan administered with minimal improvement. On arrival to ER placed on Narcan drip, admitted to ICU, continued to decline, intubated shortly thereafter. Narcan drip weaned off. Afebrile, normal WBC, hemoglobin 11.2, platelets 125, ABGs noted, sodium 136, potassium 4.6, bicarb 32, BUN 32, creatinine 1.06, magnesium 1.9, glucose 72-200s, UA negative, toxicology positive for opiates, serum alcohol less than 10. 05/04/22 extubated yesterday, last night developed mild anxiety/agitation, received IV Ativan-drowsy this morning. BiPAP during the night, currently off. Maintaining O2 sats in the 90s on 5 L nasal cannula. Afebrile, normal WBC, sputum culture pending, urine culture negative. Renal function stable, bicarb 34. 12/3. Patient seen and examined. Patient was confused overnight could be secondary to steroids. Currently he is back to normal. Currently on 5 L of oxygen REVIEW OF SYSTEMS: CONSTITUTIONAL: No fever, no malaise,. CARDIOVASCULAR: No chest pain, no palpitations, no syncope. PULMONARY: No shortness of breath, no cough, GASTROINTESTINAL: No diarrhea, no nausea, no vomiting, no abdominal pain. NEUROLOGICAL: No headaches, no weakness, PHYSICAL EXAMINATION: GENERAL: The patient is alert and oriented x3, not in any acute distress. Well developed, well nourished. HEENT: Pupils are round and equally reacting to light. EOMI. No scleral icterus. No conjunctival pallor. Normocephalic, atraumatic. No pharyngeal erythema. No thyromegaly. CARDIOVASCULAR: S1 and S2 present. No murmurs, rubs, or gallops. PULMONARY: Chest is clear to auscultation, no wheezing or crackles. ABDOMEN: Soft, nontender, nondistended, normoactive bowel sounds. No palpable organomegaly. MUSCULOSKELETAL: No joint swelling or deformity. EXTREMITIES: No cyanosis, clubbing, or pedal edema. NEUROLOGICAL: Gross neurological examination did not reveal any focal deficits. SKIN: No rashes. Assessment and plan Acute hypoxic, hypercapnic respiratory failure secondary to reported accidental opiate overdose Chronic hypoxic, hypercapnic respiratory failure Laryngeal carcinoma Chronic pain syndrome CAD Hypertension Hyperlipidemia Ongoing nicotine dependence Autoimmune disease, follows with both Dr. Goins and Anil Lara warehouse engineer OP History of Abdominal aortic aneurysm, outpatient monitoring Plan: Monitor vital signs Monitor CBC Aggressive bronchopulmonary hygiene Continue oxygen supplementation Continue bronchodilators ICU following DVT prophylaxis: Objective - Vital Signs Vital signs: Vital Signs Temp 97.7 F 05/05/22 08:59 Pulse 61 05/05/22 13:39 Resp 17 05/05/22 13:39 BP 140/94 05/05/22 13:39 Pulse Ox 95 05/05/22 13:39 FiO2 40 05/05/22 07:40 Intake & Output 05/04/22 05/05/22 05/05/22 18:59 06:59 18:59 Intake Total 357 20 240 Output Total 890 335 Balance -533 -315 240 Intake: IV 20 20 0.9 @ 20 20 20 Intake, IV Titration 100 Amount Potassium Chloride 10 meq 100 In Water For Injection 1 100ml.bag @ 100 mls/hr IVPB Q1H [facility] Rx#: [id number] Oral 237 240 Output: Urine 890 335 Other: Voiding Method Indwelling Catheter Indwelling Catheter Indwelling Catheter - Labs CBC & Chem 7: 05/05/22 06:06 05/05/22 06:06 Labs: Abnormal Lab Results - Last 24 Hours (Table) 05/05/22 05/05/22 Range/Units 06:06 06:06 RBC 3.97 L (4.30-5.90) m/uL Hgb 11.9 L (13.0-17.5) gm/dL Hct 36.4 L (39.0-53.0) % Lymphocytes # 0.2 L (1.0-4.8) k/uL Carbon Dioxide 31 H (22-30) mmol/L BUN 27 H (9-20) mg/dL Creatinine 0.56 L (0.66-1.25) mg/dL Glucose 145 H (74-99) mg/dL Calcium 7.8 L (8.4-10.2) mg/dL AST 15 L (17-59) U/L Total Protein 5.6 L (6.3-8.2) g/dL Albumin 2.9 L (3.5-5.0) g/dL Microbiology - Last 24 Hours (Table) 05/03/22 01:00 Gram Stain - Final Sputum Sputum Culture - Final
[2022-05-05] MEDS: SODIUM CHLORIDE 0.9% 1,000 ML IV SCH (16:43)
[2022-05-05] MEDS: TAMSULOSIN 0.4 MG CAP.ER.24H PO SCH (20:57)
[2022-05-05] MEDS: ATORVASTATIN 80 MG TAB PO SCH (20:57)
[2022-05-06] MEDS: IPRATROPIUM-ALBUTEROL 3 ML NEB INHALATION SCH ×4 (00:10→11:46)
[2022-05-06] MEDS: HEPARIN SODIUM,PORCINE/PF 5,000 UNIT/0.5 ML SYRINGE SQ SCH ×2 (00:22→08:13)
[2022-05-06 04:46] VITALS: BP 134/64; RESP 17; TEMP 98.4
[2022-05-06] MEDS: SYMBICORT 160-4.5 MCG INHALER INHALATION SCH (07:46)
[2022-05-06] MEDS: ASPIRIN 81 MG PO SCH (08:13)
[2022-05-06] MEDS: PANTOPRAZOLE 40 MG/10 ML VIAL IVP SCH (08:13)
--- NOTE | 2022-05-06 10:33 | P.DS ---
Providers Date of admission: 05/02/22 22:36 Expected date of discharge: 05/06/22 Attending physician: Jamie Balderas Consults: 05/02/22 22:35 Consult Physician Stat Consulting Provider: Wesley Soria Reason/Comments: Narcan gtt Do you want consulting provider notified?: Yes, Notify in am Primary care physician: Jamie Balderas [place] Hospital Course: Discharge diagnoses; Acute hypoxic, hypercapnic respiratory failure secondary to reported accidental opiate overdose Chronic hypoxic, hypercapnic respiratory failure Laryngeal carcinoma Chronic pain syndrome CAD Hypertension Hyperlipidemia Ongoing nicotine dependence Autoimmune disease, follows with both Dr. 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 Rios at [facility], severe COPD, nicotine dependence, CAD, hypertension and multiple other medical issues, admitted with reported overdose of morphine sulfate. Per ER records, patient accidentally overdosed on his liquid morphine at home, notified EMS, Narcan administered with minimal improvement. On arrival to ER placed on Narcan drip, admitted to ICU, continued to decline, intubated shortly thereafter. Narcan drip weaned off. Afebrile, normal WBC, hemoglobin 11.2, platelets 125, ABGs noted, sodium 136, potassium 4.6, bicarb 32, BUN 32, creatinine 1.06, magnesium 1.9, glucose 72-200s, UA negative, toxicology positive for opiates, serum alcohol less than 10. 05/04/22 extubated yesterday, last night developed mild anxiety/agitation, received IV Ativan-drowsy this morning. BiPAP during the night, currently off. Maintaining O2 sats in the 90s on 5 L nasal cannula. Afebrile, normal WBC, sputum culture pending, urine culture negative. Renal function stable, bicarb 34. 05/05. Patient seen and examined. Patient was confused overnight could be secondary to steroids. Currently he is back to normal. Currently on 5 L of oxygen 05/06. Patient seen and examined. Laying to debride the bed. Patient keen to go home. Currently at her home O2 requirements. Being discharged stable c ondition PHYSICAL EXAMINATION: GENERAL: The patient is alert and oriented x3, not in any acute distress. Well developed, well nourished. HEENT: Pupils are round and equally reacting to light. EOMI. No scleral icterus. No conjunctival pallor. Normocephalic, atraumatic. No pharyngeal erythema. No thyromegaly. CARDIOVASCULAR: S1 and S2 present. No murmurs, rubs, or gallops. PULMONARY: Chest is clear to auscultation, no wheezing or crackles. ABDOMEN: Soft, nontender, nondistended, normoactive bowel sounds. No palpable organomegaly. MUSCULOSKELETAL: No joint swelling or deformity. EXTREMITIES: No cyanosis, clubbing, or pedal edema. NEUROLOGICAL: Gross neurological examination did not reveal any focal deficits. SKIN: No rashes. Patient Condition at Discharge: Stable Plan - Discharge Summary New Discharge Prescriptions: Continue Atorvastatin [Lipitor] 80 mg PO HS lisinopriL [Zestril] 20 mg PO BID amLODIPine [Norvasc] 5 mg PO BID SILVER sulfADIAZINE CREAM [Silvadene Cream] 1 applic TOPICAL BID Albuterol Nebulized [Ventolin Nebulized] 2.5 mg INHALATION RT-QID PRN PRN Reason: Shortness Of Breath Albuterol Sulfate [Ventolin HFA] 2 puff INHALATION RT-QID PRN PRN Reason: Shortness Of Breath Ergocalciferol (Vitamin D2) [Drisdol (50,000 Iu)] 1,250 mcg PO MO Tamsulosin HCl [Flomax] 0.4 mg PO DAILY Metoprolol Succinate (ER) [Toprol XL] 12.5 mg PO DAILY #30 tab Aspirin EC [Ecotrin Low Dose] 81 mg PO DAILY #30 tab Omeprazole 20 mg PO DAILY Morphine Sulfate 20mg/5ml 10 - 20 mg PO QID PRN PRN Reason: Pain Budesonide-Formot 160-4.5 Mcg [Symbicort 160-4.5 Mcg Inhaler] 2 puff INHALATION RT-BID #1 each Ondansetron Odt [Zofran ODT] 8 mg PO Q8HR PRN PRN Reason: Nausea Discharge Medication List Atorvastatin [Lipitor] 80 mg PO HS 05/04/18 [History] lisinopriL [Zestril] 20 mg PO BID 03/04/19 [History] amLODIPine [Norvasc] 5 mg PO BID 06/25/19 [History] Albuterol Nebulized [Ventolin Nebulized] 2.5 mg INHALATION RT-QID PRN 03/06/20 [History] Albuterol Sulfate [Ventolin HFA] 2 puff INHALATION RT-QID PRN 03/06/20 [History] SILVER sulfADIAZINE CREAM [Silvadene Cream] 1 applic TOPICAL BID 03/06/20 [History] Ergocalciferol (Vitamin D2) [Drisdol (50,000 Iu)] 1,250 mcg PO MO 04/11/22 [History] Tamsulosin HCl [Flomax] 0.4 mg PO DAILY 04/11/22 [History] Aspirin EC [Ecotrin Low Dose] 81 mg PO DAILY #30 tab 04/16/22 [Rx] Budesonide-Formot 160-4.5 Mcg [Symbicort 160-4.5 Mcg Inhaler] 2 puff INHALATION RT-BID #1 each 04/16/22 [Rx] Metoprolol Succinate (ER) [Toprol XL] 12.5 mg PO DAILY #30 tab 04/16/22 [Rx] Morphine Sulfate 20mg/5ml 10 - 20 mg PO QID PRN 05/02/22 [History] Omeprazole 20 mg PO DAILY 05/02/22 [History] Ondansetron Odt [Zofran ODT] 8 mg PO Q8HR PRN 05/02/22 [History] Follow up Appointment(s)/Referral(s): Jamie Balderas DO [Primary Care Provider] - 1-2 days Wesley Soria MD [STAFF PHYSICIAN] - 1 Week Discharge Disposition: HOME SELF-CARE
[2022-05-06 12:00] VITALS: PULSE 78
--- NOTE | 2022-05-06 15:49 | P.PN ---
Subjective Progress Note Date: 05/06/22 Principal diagnosis: Acute hypoxic and hypercapnic respiratory failure secondary to opiate overdose This is a 71-year-old white male with history of multiple medical problems inclu ding diabetes, history of dyslipidemia, laryngeal cancer, chronic pain syndrome, patient had radiation to his throat cancer 3 days prior. Apparently the patient accidentally overdosed on his liquid morphine sulfate at home, and notified EMS, patient was given Narcan with minimal improvement. Arrived to the ER, patient was placed on a Narcan drip, and his mental status was waxing and waning while on Narcan drip. However when I was notified by the ER physician I was told that the patient was awake, responsive, and did not seem to be in any respiratory distress. However considering the patient was on Narcan drip, I accepted the patient to go to the ICU. Shortly after he arrived to the ICU, I was notified by the nurse that the patient is becoming less and less responsive. He was only responsive to deep painful stimuli. ABG showed a pO2 of 68 pCO2 of more than 120 and his pH was 7.06. This was on 50% FiO2. Recommended intubating the patient, he was intubated, and immediate ABG post intubation showed a pO2 of more than 400 pCO2 down to 83 pH of 7.21. ABG this morning showed a pO2 of 67 pCO2 of 52 pH of 7.44 patient is now off Narcan, he was on propofol earlier which I have discontinued and suggested that to wean the patient on mechanical ventilation and possibly extubate to BiPAP later in the next couple of hours. All labs were noted to be relatively unremarkable, pat ient had positive drug screen for opiates. Chest x-ray this morning showed no evidence of infiltrates, chronic parenchymal senescent changes noted in the lungs bilaterally. His chest x-ray is not much different from a recent chest x- ray. Reevaluated today on 05/04/22, patient remains in the ICU, he was extubated yesterday and tolerated the extubation well. He is on 5 L nasal cannula, he is off BiPAP, not in any distress, patient continues to have intermittent cough and wheezing, hence I'm recommending Solu-Medrol today, I'm also recommending adding Symbicort, agent is already on updrafts, and I plan to transfer the patient out of the ICU to a regular medical floor. CBC is relatively unremarkable. Electrolytes are normal, bicarb is elevated at 34, this may imply that the patient may have chronic respiratory acidosis with metabolic compensation Reevaluated today on 06/01/22, patient is feeling better today, no cough no wheezing no shortness of breath, patient did receive Solu-Medrol yesterday. He was getting delusional yesterday, and he responded well to Ativan. Apparently the patient drinks about 3-4 beers a week, today I discontinued his Solu-Medrol as may be a contributing factor to his agitation. Patient is on nasal cannula at 5 L/m, O2 sats is on the percent. Dramatic improvement since admission, patient will likely be transferred to a regular medical floor today, and if agreeable by the admitting physician, I will clear the patient to discharge if possible. CBC is relatively normal, basic metabolic profile and renal profile are normal Reevaluated today on 05/06/22, patient is doing great, asymptomatic, hardly any cough no wheezing no shortness of breath. Hence I will clear the patient to be discharged home today Objective - Vital Signs Vital signs: Vital Signs Temp 98.4 F 05/06/22 04:14 Pulse 78 05/06/22 12:00 Resp 17 05/06/22 04:14 BP 134/64 05/06/22 04:14 Pulse Ox 98 05/06/22 07:49 FiO2 40 05/06/22 00:13 Intake & Output 05/05/22 05/06/22 05/06/22 18:59 06:59 18:59 Intake Total 240 Output Total 301 Balance 240 -301 Intake: Oral 240 Output: Urine 300 Stool 1 Other: Voiding Method Indwelling Catheter Urinal Urinal # Voids 1 - Exam Physical Exam: Revealed 71-year-old white male in no distress, on 5 L nasal cannula, O2 sat is 100%. Patient will need to have titration of his O2 and the check for need for home oxygen Head: Atraumatic normocephalic HEENT:[Neck is supple.] [No neck masses.] [No thyromegaly.] [No JVD.] Chest: Diminished breath sound bilaterally no crackles or rhonchi or wheezes Cardiac Exam: [Normal S1 and S2, no S3 gallop, no murmur.] Abdomen: [Soft, nontender, no megaly, no rebound, no guarding, normal bowel sounds.] Extremities: [No clubbing, no edema, no cyanosis.] Neurological Exam: [No focal neurologic deficit.] Alert oriented 3 Psychiatric: Normal mood affect and normal mental status examination. Skin: No rashes - Labs CBC & Chem 7: 05/05/22 06:06 05/05/22 06:06 Assessment and Plan Assessment: Impression: Acute hypoxic and hypercapnic respiratory failure secondary to opiate overdose/accidental. History of recently diagnosed laryngeal cancer History of underlying COPD, this morning his COPD seems to be active and I believe the patient has acute exacerbation of COPD Chronic pain syndrome Benign essential hypertension Dyslipidemia History of benign prostatic hypertrophy Recommendation: Will clear the patient to go home today on Medrol Dosepak, Albuterol 2 puffs 4 times a day when necessary Symbicort 160/4.5 2 puffs twice a day Can arrange for follow-up on the patient on outpatient basis. Time with Patient: Less than 30
--- NOTE | 2022-05-09 07:04 | CDI ---
xDocumentation Clarification Form Date: 05/09/22 From: Raven Ott Admit Date: 05/02/2022 10:36:00 PM Patient Name: Adam Olivo Visit Number: [id number] Discharge Date: 05/06/2022 02:30:00 PM ATTENTION: The Clinical Documentation Specialists (CDI) and [facility] Coding Staff appreciate your assistance in clarifying documentation. Please respond to the clarification below the line at the bottom and electronically sign. The CDI & [facility] Coding staff will review the response and follow-up if needed. Please note: Queries are made part of the Legal Health Record. If you have any questions, please contact the author of this message via ITS. Dr. Mitch Olson, Your patient has the documented symptom of Altered Mental Statusin the ED Note and confused per 05/05 PN and 05/06 Discharge summary. Additional clarification regarding the etiology/cause of this symptom is requested. History/Risk Factors: laryngeal cancer -receiving radiation treatments (08/21 txs), severe COPD, nicotine dependence, CAD, hypertension, autoimmune disease Clinical Indicators: Patient took an extra dose of his oral morphine. On presentation he had altered mental status. He later on developed confusion, thought to be due to steroids. Vital signs: T 97.6, P 83, R 16/8, BP 152/88, O2 89/62 Labs: Na 136, Chloride 94, CO2 39, BUN 30, Cr 1.26, Glucose 221, Ca 7.7, AST 15 CT: No acute intracranial process. Treatment: Narcan in ED and then Narcan drip in ICU, Please clarify the etiology of the symptom of Altered Mental Status: [ x ] [Insert type of encephalopathy] Encephalopathy due to [insert cause of encephalopathy] metabolic encephalopathy [ ] Delirium (specify cause): [ ] Dementia (if know, specify Type and if with/without Behavioral Disturbance) [ ] Other condition (please specify) [ ] Unable to determine MTDD
--- NOTE | 2022-05-11 10:33 | CDI ---
Documentation Clarification Form Date: 05/11/2022 From: Raven Ott Admit Date: 05/02/2022 10:36:00 PM Patient Name: Adam Olivo Visit Number: [id number] Discharge Date: 05/06/2022 02:30:00 PM ATTENTION: The Clinical Documentation Specialists (CDI) and [facility] Coding Staff appreciate your assistance in clarifying documentation. Please respond to the clarification below the line at the bottom and electronically sign. The CDI & [facility] Coding staff will review the response and follow-up if needed. Please note: Queries are made part of the Legal Health Record. If you have any questions, please contact the author of this message via ITS. Dr. Mitch Olson, Encephalopathy is documented in your query. Additional clarification regarding the type of encephalopathy is requested. History/Risk Factors: laryngeal cancer -receiving radiation treatments (08/21txs), severe COPD, nicotine dependence, CAD, hypertension, autoimmune disease Clinical Indicators: Patient took an extra dose of his oral morphine. On presentation he had altered mental status. He later on developed confusion, thought to be due to steroids. Labs: Na 136, Chloride 94, CO2 39, BUN 30, Cr 1.26, Glucose 221, Ca 7.7, AST 15 EEG: none CT: No acute intracranial process. Treatment: Narcan in ED and then Narcan drip in ICU Please clarify the type of encephalopathy, if known: [x ] Metabolic Encephalopathy [ ] Toxic Metabolic Encephalopathy [ ] Toxic Encephalopathy [ ] Other, please specify [ ] Unable to determine MTDD
== END 2022-05-06 14:30 | disposition home health service (06) | DRG 917 ==
LOC: EC 18:16 → 2SICU 22:36 → 5NMEDONC 05-05 17:39
PROVIDERS: ADMIT Family Medicine; ATTEND Family Medicine
PROC: 0D9670Z Drainage of Stomach with Drainage Device, Via Natural or Artificial Opening (ICD-10-PCS; principal; 2022-05-03)
PROC: 5A1935Z Respiratory Ventilation, Less than 24 Consecutive Hours (ICD-10-PCS; principal; 2022-05-03)
PROC: 5A09457 Assistance with Respiratory Ventilation, 24-96 Consecutive Hours, Continuous Positive Airway Pressure (ICD-10-PCS; 2022-05-03)
PROC: 0BH17EZ Insertion of Endotracheal Airway into Trachea, Via Natural or Artificial Opening (ICD-10-PCS; 2022-05-03)
PROC: 3E033XZ Introduction of Vasopressor into Peripheral Vein, Percutaneous Approach (ICD-10-PCS; 2022-05-03)
DX: T40.2X1A Poisoning by other opioids, accidental (unintentional), initial encounter (principal); G93.41 Metabolic encephalopathy; I21.4 Non-ST elevation (NSTEMI) myocardial infarction; J96.21 Acute and chronic respiratory failure with hypoxia; J96.22 Acute and chronic respiratory failure with hypercapnia; J44.1 Chronic obstructive pulmonary disease with (acute) exacerbation; D89.89 Other specified disorders involving the immune mechanism, not elsewhere classified; C32.9 Malignant neoplasm of larynx, unspecified; E11.51 Type 2 diabetes mellitus with diabetic peripheral angiopathy without gangrene; I11.0 Hypertensive heart disease with heart failure; I50.9 Heart failure, unspecified; R41.82 Altered mental status, unspecified; F41.9 Anxiety disorder, unspecified; E78.5 Hyperlipidemia, unspecified; I25.10 Atherosclerotic heart disease of native coronary artery without angina pectoris; I71.40 Abdominal aortic aneurysm, without rupture, unspecified; K21.9 Gastro-esophageal reflux disease without esophagitis; H91.90 Unspecified hearing loss, unspecified ear; S22.049D Unspecified fracture of fourth thoracic vertebra, subsequent encounter for fracture with routine healing; N40.0 Benign prostatic hyperplasia without lower urinary tract symptoms; G89.4 Chronic pain syndrome; F17.200 Nicotine dependence, unspecified, uncomplicated; Z71.6 Tobacco abuse counseling; Z79.82 Long term (current) use of aspirin; Z79.51 Long term (current) use of inhaled steroids; Z79.891 Long term (current) use of opiate analgesic; Z79.899 Other long term (current) drug therapy; Z95.828 Presence of other vascular implants and grafts; Z87.442 Personal history of urinary calculi; Z88.0 Allergy status to penicillin; Z88.8 Allergy status to other drugs, medicaments and biological substances; Y92.009 Unspecified place in unspecified non-institutional (private) residence as the place of occurrence of the external cause
CPT/HCPCS: 36415; 36600; 70450; 71045; 71046; 80053; 80306; 80320; 81001; 82805; 83690; 83735; 83880; 84484; 85025; 87070; 87086; 87205; 93005; 94002; 94640; 94660; 94760; 96365; 96366; 99291

== ENCOUNTER 2022-06-04 12:53 | Inpatient (IN) | payer MEDICARE, OTHER ==
[2022-06-04] MEDS ORDERED: ALBUTEROL NEBULIZED 2.5 MG/3 ML INHALATION STA (13:25)
[2022-06-04] MEDS ORDERED: methylPREDNISolone SOD SUCCI 125 MG/2 ML VIAL IV STA (13:25)
[2022-06-04] MEDS ORDERED: IPRATROPIUM 0.5 MG/2.5 ML NEBU INHALATION STA (13:25)
[2022-06-04] MEDS ORDERED: SODIUM CHLORIDE 0.9% 500 ML 500 ML IV ONE (13:29)
--- NOTE | 2022-06-04 13:29 | ED ---
General Adult HPI - General Chief complaint: Shortness of Breath Stated complaint: BIANCA Time Seen by Provider: 06/04/22 13:00 Source: patient, EMS, RN notes reviewed, old records reviewed Mode of arrival: EMS Limitations: no limitations - History of Present Illness Initial comments: This is a 71-year-old male with past medical history significant for COPD. Patient states over the last 4 days been having difficulty breathing and getting progressively worse. Patient states she can also increase in his cough and occasionally has some sputum production. Patient denies any fever chill. Patient denies any chest pain patient denies any abdominal pain patient denies any nausea vomiting diarrhea. Patient states on 4 L of oxygen at home. Patient states EMS gave him treatments on the way and it made him feel a little bit better. Patient denies any headache patient denies numbness weakness. Patient denies any lightheadedness or dizziness. Patient denies any swelling to legs or calf tenderness. - Related Data Home Medications Medication Instructions Recorded Confirmed Atorvastatin [Lipitor] 80 mg PO HS 05/04/18 06/04/22 lisinopriL [Zestril] 20 mg PO BID 03/04/19 06/04/22 amLODIPine [Norvasc] 5 mg PO BID 06/25/19 06/04/22 Albuterol Nebulized [Ventolin 2.5 mg INHALATION RT-QID PRN 03/06/20 06/04/22 Nebulized] Albuterol Sulfate [Ventolin HFA] 2 puff INHALATION RT-QID PRN 03/06/20 06/04/22 SILVER sulfADIAZINE CREAM 1 applic TOPICAL BID 03/06/20 06/04/22 [Silvadene Cream] Ergocalciferol (Vitamin D2) 1,250 mcg PO MO 04/11/22 06/04/22 [Drisdol (50,000 Iu)] Tamsulosin HCl [Flomax] 0.4 mg PO DAILY 04/11/22 06/04/22 Omeprazole 20 mg PO DAILY 05/02/22 06/04/22 Ondansetron Odt [Zofran ODT] 8 mg PO Q8HR PRN 05/02/22 06/04/22 dexAMETHasone [Decadron] See Taper PO DIRECTED 06/04/22 06/04/22 traMADol HCL 50 mg PO Q6H PRN 06/04/22 06/04/22 Previous Rx's Medication Instructions Recorded Aspirin EC [Ecotrin Low Dose] 81 mg PO DAILY #30 tab 04/16/22 Budesonide-Formot 160-4.5 Mcg 2 puff INHALATION RT-BID #1 each 04/16/22 [Symbicort 160-4.5 Mcg Inhaler] Metoprolol Succinate (ER) [Toprol 12.5 mg PO DAILY #30 tab 04/16/22 XL] Allergies Allergy/AdvReac Type Severity Reaction Status Date / Time Penicillins Allergy Rash/Hives Verified 06/04/22 15:10 gabapentin AdvReac Hallucinati Verified 06/04/22 15:10 ons/AMS Review of Systems ROS Statement: Those systems with pertinent positive or pertinent negative responses have been documented in the HPI. ROS Other: All systems not noted in ROS Statement are negative. Past Medical History Past Medical History: Coronary Artery Disease (CAD), Cancer, COPD, GERD/Reflux, Hearing Disorder / Deafness, Hyperlipidemia, Hypertension, Pneumonia, Vascular Disorder Additional Past Medical History / Comment(s): Severe COPD, history of autoimmune disease had work up by Dr. Goins and [facility]-never received specifics about the disease type, aortic aneurysm with repair, thoracolumbar pain/T4 fracture with recent surgery, current nephrolithiasis-has passed stones on his own in the past, bilateral leg cramps, left eardrum perforation/NULATO. Currently has Laryngeal cancer being treated with radiation. History of Any Multi-Drug Resistant Organisms: Other MDRO Past Surgical History: Appendectomy, Back Surgery, Ear Surgery, Heart Catheterization, Hernia Repair Additional Past Surgical History / Comment(s): 06/29/19 T4 kyphoplasty, Endovascular stent grafting of a abdominal aortic aneurysm. Facial reconstructive surgery. L ear surgery-myringotomy. Umbilical hernia. Colonoscopy-benign polypectomy. R cataract removed with lens. L eye had glass removed and lens placed. Past Anesthesia/Blood Transfusion Reactions: No Reported Reaction Additional Past Anesthesia/Blood Transfusion Reaction / Comment(s): Pt has never recieved blood. Past Psychological History: No Psychological Hx Reported Smoking Status: Current every day smoker Past Alcohol Use History: Occasional Past Drug Use History: None Reported - Past Family History Brother(s) Family Medical History: Cancer, Fibromyalgia Additional Family Medical History / Comment(s): Brother of lung cancer at the age of 42 yrs. He was a smoker. Sister(s) Family Medical History: Cancer, Fibromyalgia Additional Family Medical History / Comment(s): Sister of lung cancer. She was a smoker. Father Family Medical History: Myocardial Infarction (OR) Additional Family Medical History / Comment(s): Father at age 75 yrs of a OR Mother Family Medical History: Cancer Additional Family Medical History / Comment(s): Mother of metastatic cancer (unknown primary) at age 42 yrs. General Exam - General Exam Comments Initial Comments: GENERAL: Patient is well-developed and well-nourished. Patient is nontoxic and well- hydrated and is in mild distress. ENT: Neck is soft and supple. No significant lymphadenopathy is noted. Oropharynx is clear. Moist mucous membranes. Neck has full range of motion without eliciting any pain. EYES: The sclera were anicteric and conjunctiva were pink and moist. Extraocular movements were intact and pupils were equal round and reactive to light. Eyelids were unremarkable. PULMONARY: Patient is having diffuse wheezing. CARDIOVASCULAR: There is a regular rate and rhythm without any murmurs gallops or rubs. ABDOMEN: Soft and nontender with normal bowel sounds. SKIN: Skin is clear with no lesions or rashes and otherwise unremarkable. NEUROLOGIC: Patient is alert and oriented x3. Cranial nerves II through XII are grossly intact. Motor and sensory are also intact. Normal speech, volume and content. Symmetrical smile. MUSCULOSKELETAL: Normal extremities with adequate strength and full range of motion. LYMPHATICS: No significant lymphadenopathy is noted PSYCHIATRIC: Normal psychiatric evaluation. Limitations: no limitations Course Vital Signs 06/04/22 06/04/22 06/04/22 12:56 13:50 14:09 Temperature 98.7 F Pulse Rate 82 82 85 Respiratory 28 H 28 H Rate Blood Pressure 126/94 159/87 O2 Sat by Pulse 90 L 94 L Oximetry Fraction of Inspired Oxygen (FIO2) 06/04/22 06/04/22 06/04/22 14:13 15:00 16:50 Temperature Pulse Rate 80 78 Respiratory 24 Rate Blood Pressure 133/76 O2 Sat by Pulse 95 Oximetry Fraction of 60 Inspired Oxygen (FIO2) 06/04/22 17:32 Temperature Pulse Rate 83 Respiratory 24 Rate Blood Pressure 131/84 O2 Sat by Pulse 93 L Oximetry Fraction of Inspired Oxygen (FIO2) Medical Decision Making - Medical Decision Making EKG was interpreted by myself. EKG shows sinus rhythm at 83 bpm ME interval is 114 QRS 106 QT interval 408 QTC is [address] segment elevation or depr ession is occasional PAC Was pt. sent in by a medical professional or institution? @ -No Did you speak to anyone other than the patient for history? @ -EMS is a history of the reason for the call what they were told on scene and what they did in route Did you review nursing and triage notes? @ -I agree with the nursing and triage notes Were old charts reviewed? @ -Previous x-rays and EKGs were reviewed in comparison Differential Diagnosis? @ -Differential Dyspnea: Coronary syndrome, arrhythmia, tamponade, asthma, COPD, pulmonary embolism, pneumonia, pneumothorax, pulmonary effusion, anaphylaxis, diabetic ketoacidosis, flailed chest, pulmonary contusion, diaphragmatic rupture, anemia, neuromuscul ar, this is not meant to be an all-inclusive list. EKG interpreted by me (3pts min.)? @ -As above X-rays interpreted by me (1pt min.)? @ -I interpreted the chest x-ray showed no acute abnormalities chronic changes of COPD CT interpreted by me (1pt min.)? @ -No U/S interpreted by me (1pt. min.)? @ -No What testing was considered but not performed? (CT, X-rays, U/S, labs)? Why? @ -No What meds were considered but not given? Why? @ -[none] Did you discuss the management of the patient with other professionals? @ -I spoke with the [facility] hospitalist about the patient's results and what was on the emergency department. Did you reconcile home meds? @ -None Was smoking cessation discussed for >3mins.? @ -None Was critical care preformed (if so, how long)? @ -Critical care time was 35 minutes patient was given multiple breathing treatments steroids and eventually put on BiPAP Were there social determinants of health that impacted care today? How? (Homelessness, low income, unemployed, alcoholism, drug addiction, transportation, low edu. Level, literacy, decrease access to med. care, senior living, rehab)? @ -None Was there de-escalation of care discussed even if they declined? (Discuss DNR or withdrawal of care, Hospice)? @ -None What co-morbidities impacted this encounter? (DM, HTN, Smoking, COPD, CAD, Cancer, CVA, Hep., AIDS, mental health diagnosis, sleep apnea, morbid obesity)? @ -Patient continues to smoke a vengeance impacting his breathing and continuing to worsen his COPD Was patient admitted / discharged? @ -Patient will be admitted. I spoke with each Mr. hospice agreed with the patient I continued breathing treatments on the floor I continue steroids on the floor. Patient is also on BiPAP and feeling considerably better. Undiagnosed new problem with uncertain prognosis? @ -None Drug Therapy requiring intensive monitoring for toxicity (Heparin, Nitro, Insulin, Cardizem)? @ -No Were any procedures done? @ -None Diagnosis/symptom? @ -Severe exacerbation of COPD Acute, or Chronic, or Acute on Chronic? @ -Acute on chronic Uncomplicated (without systemic symptoms) or Complicated (systemic symptoms)? @ -Compensated Side effects of treatment? @ -No Exacerbation, Progression, or Severe Exacerbation] @ -Severe exacerbation Poses a threat to life or bodily function? @ -Yes hypoxia could affect all organ systems Diagnosis/symptom? @ -Lactic acidosis Acute, or Chronic, or Acute on Chronic? @ -Acute Uncomplicated (without systemic symptoms) or Complicated (systemic symptoms)? @ -Uncomplicated Side effects of treatment? @ -No Exacerbation, Progression, or Severe Exacerbation] @ -No Poses a threat to life or bodily function? @ -No Patient was started on antibiotics though no source of infection was noted because of his COPD we wanted to cover the patient indolent infection - Lab Data Result diagrams: 06/04/22 13:30 06/04/22 13:30 Lab Results 06/04/22 06/04/22 06/04/22 Range/Units 13:30 13:30 13:30 WBC 8.7 (3.8-10.6) k/uL RBC 4.52 (4.30-5.90) m/uL Hgb 13.9 (13.0-17.5) gm/dL Hct 41.3 (39.0-53.0) % MCV 91.4 (80.0-100.0) fL MCH 30.8 (25.0-35.0) pg MCHC 33.7 (31.0-37.0) g/dL RDW 14.6 (11.5-15.5) % Plt Count 183 (150-450) k/uL MPV 8.0 Neutrophils % 80 % Lymphocytes % 8 % Monocytes % 8 % Eosinophils % 2 % Basophils % 1 % Neutrophils # 7.0 (1.3-7.7) k/uL Lymphocytes # 0.7 L (1.0-4.8) k/uL Monocytes # 0.7 (0-1.0) k/uL Eosinophils # 0.2 (0-0.7) k/uL Basophils # 0.0 (0-0.2) k/uL PT 11.0 (9.0-12.0) sec INR 1.1 (<1.2) APTT 25.0 (22.0-30.0) sec Sodium 131 L (137-145) mmol/L Potassium 3.9 (3.5-5.1) mmol/L Chloride 84 L (98-107) mmol/L Carbon Dioxide 44 H* (22-30) mmol/L Anion Gap 3 mmol/L BUN 10 (9-20) mg/dL Creatinine 0.56 L (0.66-1.25) mg/dL Est GFR (CKD-EPI)AfAm >90 (>60 ml/min/1.73 sqM) Est GFR (CKD-EPI)NonAf >90 (>60 ml/min/1.73 sqM) Glucose 108 H (74-99) mg/dL Lactic Ac Sepsis Rflx Plasma Lactic Acid Ricky (0.7-2.0) mmol/L Calcium 8.1 L (8.4-10.2) mg/dL Magnesium 1.9 (1.6-2.3) mg/dL Total Bilirubin 0.8 (0.2-1.3) mg/dL AST 17 (17-59) U/L ALT 14 (4-49) U/L Alkaline Phosphatase 75 (38-126) U/L Troponin I (0.000-0.034) ng/mL Total Protein 6.6 (6.3-8.2) g/dL Albumin 3.5 (3.5-5.0) g/dL 06/04/22 06/04/22 06/04/22 Range/Units 13:30 13:30 14:10 WBC (3.8-10.6) k/uL RBC (4.30-5.90) m/uL Hgb (13.0-17.5) gm/dL Hct (39.0-53.0) % MCV (80.0-100.0) fL MCH (25.0-35.0) pg MCHC (31.0-37.0) g/dL RDW (11.5-15.5) % Plt Count (150-450) k/uL MPV Neutrophils % % Lymphocytes % % Monocytes % % Eosinophils % % Basophils % % Neutrophils # (1.3-7.7) k/uL Lymphocytes # (1.0-4.8) k/uL Monocytes # (0-1.0) k/uL Eosinophils # (0-0.7) k/uL Basophils # (0-0.2) k/uL PT (9.0-12.0) sec INR (<1.2) APTT (22.0-30.0) sec Sodium (137-145) mmol/L Potassium (3.5-5.1) mmol/L Chloride (98-107) mmol/L Carbon Dioxide (22-30) mmol/L Anion Gap mmol/L BUN (9-20) mg/dL Creatinine (0.66-1.25) mg/dL Est GFR (CKD-EPI)AfAm (>60 ml/min/1.73 sqM) Est GFR (CKD-EPI)NonAf (>60 ml/min/1.73 sqM) Glucose (74-99) mg/dL Lactic Ac Sepsis Rflx Y Plasma Lactic Acid Ricky 2.3 H* (0.7-2.0) mmol/L Calcium (8.4-10.2) mg/dL Magnesium (1.6-2.3) mg/dL Total Bilirubin (0.2-1.3) mg/dL AST (17-59) U/L ALT (4-49) U/L Alkaline Phosphatase (38-126) U/L Troponin I <0.012 (0.000-0.034) ng/mL Total Protein (6.3-8.2) g/dL Albumin (3.5-5.0) g/dL Critical Care Time Critical Care Time: Yes Total Critical Care Time: 35 Disposition Clinical Impression: COPD exacerbation, Lactic acidosis Disposition: ADMITTED IP TO THIS [facility] Referrals: Jamie Balderas DO [Primary Care Provider] - 1-2 days Time of Disposition: 18:19
[2022-06-04 13:56] LABS: Basophils % (A) 1 %; Eosinophils # (A) 0.2 k/uL (0-0.7); Eosinophils % (A) 2 %; HCT 41.3 % (39.0-53.0); HGB 13.9 gm/dL (13.0-17.5); Lymphocytes # (A) 0.7 k/uL (1.0-4.8); Lymphocytes % (A) 8 %; MCH 30.8 pg (25.0-35.0); MCHC 33.7 g/dL (31.0-37.0); MCV 91.4 fL (80.0-100.0); Monocytes # (A) 0.7 k/uL (0-1.0); Monocytes % (A) 8 %; Neutrophils % (A) 80 %; Platelet Count 183 k/uL (150-450); RBC 4.52 m/uL (4.30-5.90); RDW 14.6 % (11.5-15.5); WBC 8.7 k/uL (3.8-10.6)
[2022-06-04 14:06] LABS: INR 1.1 (<1.2)
[2022-06-04 14:09] LABS: ALT 14 U/L (4-49); AST 17 U/L (17-59); African American GFR (CKD) >90 (>60 ml/min/1.73 sqM); Albumin 3.5 g/dL (3.5-5.0); Alkaline Phosphatase 75 U/L (38-126); Blood Urea Nitrogen 10 mg/dL (9-20); Calcium 8.1 mg/dL (8.4-10.2); Chloride 84 mmol/L (98-107); Glucose 108 mg/dL (74-99); Magnesium 1.9 mg/dL (1.6-2.3); Non-African American GFR(CKD) >90 (>60 ml/min/1.73 sqM); Potassium 3.9 mmol/L (3.5-5.1); Sodium 131 mmol/L (137-145); Total Bilirubin 0.8 mg/dL (0.2-1.3); Total Protein 6.6 g/dL (6.3-8.2)
[2022-06-04 14:17] LABS: Anion Gap 3 mmol/L
[2022-06-04 14:26] LABS: Carbon Dioxide 44 mmol/L (22-30)
--- NOTE | 2022-06-04 14:43 | XR ---
EXAMINATION TYPE: XR chest 2V DATE OF EXAM: 06/04/2022 COMPARISON: Chest x-ray May 04, 2022 HISTORY: Difficulty in breathing. TECHNIQUE: Frontal and lateral views of the chest are obtained. FINDINGS: The osseous structures are demineralized. There is vertebroplasty at compression type frac ture mid thoracic spine redemonstrated. Chronic emphysematous and parenchymal changes are present suzette aterally without suspicious focal airspace opacity, pleural effusion, or pneumothorax seen. Stable mi ld cardiomegaly with atherosclerotic aortic knob. IMPRESSION: Chronic changes and mild cardiomegaly without acute pulmonary process.
[2022-06-04] MEDS ORDERED: NALOXONE 0.4 MG/ML 1 ML VIAL IVP PRN (18:20)
[2022-06-04] MEDS: IPRATROPIUM-ALBUTEROL 3 ML NEB INHALATION SCH (19:44)
[2022-06-04] MEDS: DOXYCYCLINE 100 MG CAP PO SCH (20:59)
[2022-06-05] MEDS: methylPREDNISolone SOD SUCCI 125 MG/2 ML VIAL IV SCH ×5 (00:16→23:37)
[2022-06-05] MEDS: IPRATROPIUM-ALBUTEROL 3 ML NEB INHALATION SCH ×4 (07:16→20:27)
[2022-06-05] MEDS: DOXYCYCLINE 100 MG CAP PO SCH ×2 (09:49→20:33)
[2022-06-05] MEDS ORDERED: ALBUTEROL NEBULIZED 2.5 MG/3 ML INHALATION PRN (14:42)
[2022-06-05] MEDS ORDERED: ALBUTEROL HFA INHALER INHALATION PRN (14:42)
[2022-06-05 16:49] LABS: Glucose,Whole Blood 149 mg/dL (70-110)
[2022-06-05 20:24] LABS: Glucose,Whole Blood 168 mg/dL (70-110)
[2022-06-05] MEDS: SYMBICORT 160-4.5 MCG INHALER INHALATION SCH (20:27)
[2022-06-05] MEDS: amLODIPine 5 MG TAB PO SCH (20:33)
[2022-06-05] MEDS: ATORVASTATIN 80 MG TAB PO SCH (20:33)
[2022-06-05] MEDS: lisinopriL 20 MG TAB PO SCH (20:33)
[2022-06-06] MEDS: ONDANSETRON ODT 8 MG TAB.RAPDIS PO PRN ×2 (04:10→15:08)
[2022-06-06 06:10] LABS: Glucose,Whole Blood 147 mg/dL (70-110)
[2022-06-06] MEDS: methylPREDNISolone SOD SUCCI 125 MG/2 ML VIAL IV SCH ×4 (06:15→23:13)
[2022-06-06] MEDS: PANTOPRAZOLE 40 MG TABLET PO SCH (06:15)
[2022-06-06] MEDS: IPRATROPIUM-ALBUTEROL 3 ML NEB INHALATION SCH ×4 (08:06→20:37)
[2022-06-06] MEDS: SYMBICORT 160-4.5 MCG INHALER INHALATION SCH ×2 (08:06→20:37)
[2022-06-06] MEDS: ASPIRIN 81 MG PO SCH (10:01)
[2022-06-06] MEDS: amLODIPine 5 MG TAB PO SCH ×2 (10:01→20:16)
[2022-06-06] MEDS: TAMSULOSIN 0.4 MG CAP.ER.24H PO SCH (10:02)
[2022-06-06] MEDS: DOXYCYCLINE 100 MG CAP PO SCH ×2 (10:03→20:16)
[2022-06-06] MEDS: METOPROLOL SUCCINATE (ER) 25 MG TAB.ER.24H PO SCH ×2 (10:04→10:16)
[2022-06-06] MEDS: lisinopriL 20 MG TAB PO SCH ×2 (10:07→20:17)
[2022-06-06 11:19] LABS: Glucose,Whole Blood 170 mg/dL (70-110)
--- NOTE | 2022-06-06 15:03 | P.PN ---
Subjective Progress Note Date: 06/06/22 This is a 71-year-old gentleman with past medical history of recently diagnosed laryngeal cancer -receiving radiation treatments at [facility], severe COPD, nicotine dependence, CAD, hypertension and multiple other medical issues, admitted with Objective - Vital Signs Vital signs: Vital Signs Temp 97.1 F L 06/06/22 08:00 Pulse 70 06/06/22 11:41 Resp 18 06/06/22 08:00 BP 112/73 06/06/22 08:00 Pulse Ox 97 06/06/22 08:00 FiO2 50 06/06/22 11:29 Intake & Output 06/05/22 06/06/22 06/06/22 18:59 06:59 18:59 Intake Total 240 180 Output Total 500 380 Balance -260 -200 Weight 74.389 kg 74.389 kg Intake: Oral 240 180 Output: Urine 500 380 Other: Voiding Method Urinal Urinal # Voids 200 - Exam - Exam PHYSICAL EXAM: VITAL SIGNS: As above GENERAL: Sitting up in bed, drowsy ,no acute distress HEENT: Atraumatic, normocephalic ,Conjunctivae normal. NECK: Supple, No JVD. CARDIOVASCULAR: S1, S2 regular. No murmur RESPIRATION: Breath sounds diminished in the bases. Scattered rhonchi, expiratory wheezing. ABDOMEN: Soft, nontender .no masses palpable.Bowel sounds heard. LEGS: No edema. no swelling PSYCHIATRY: Alert and oriented 2, mood and affect normal. NERVOUS SYSTEM: Limited exam; droggy- Cranial nerves II through XII grossly intact. Skin: Warm and dry, no rash - Labs CBC & Chem 7: 06/04/22 13:30 06/04/22 13:30 Labs: Abnormal Lab Results - Last 24 Hours (Table) 06/05/22 06/05/22 06/06/22 Range/Units 16:48 20:22 06:09 POC Glucose (mg/dL) 149 H 168 H 147 H (70-110) mg/dL 06/06/22 Range/Units 11:17 POC Glucose (mg/dL) 170 H (70-110) mg/dL Assessment and Plan Assessment: Acute on Chronic hypoxic, hypercapnic respiratory failure secondary to COPD exacerbation in a patient with history of laryngeal carcinoma. Lactic acidosis, resolved Chronic pain syndrome CAD Hypertension Hyperlipidemia Ongoing nicotine dependence Autoimmune disease, follows with both Dr. Goins and Anil Lara shoe laster OP History of Abdominal aortic aneurysm, outpatient monitoring Plan: Continue on current medication regime ,monitoring and symptomatic treatment. ICU management as per fbi special agent. Aggressive pulmonary toileting with nebulized bronchodilators, IV steroids. Smoking cessation reinforced. Patient is appropriate for palliative care, PLAST[employer] TOOLING ENGINEER consulted. Prognosis guarded given multiple complex medical issues. The impression and plan of care has been dictated as directed. : I performed a history and examination of this patient, discussed the same with the dictator. I agree with the dictator's note ,documented as a scribe. Any additional findings or plans will be noted.
[2022-06-06] MEDS: traMADol 50 MG TAB PO PRN ×2 (15:07→23:12)
[2022-06-06] MEDS ORDERED: DEXTROSE 50% SYRINGE 50 ML IVP PRN ×2 (15:52)
[2022-06-06 16:45] LABS: Glucose,Whole Blood 167 mg/dL (70-110)
[2022-06-06] MEDS: INSULIN ASPART (NovoLOG) 100 UNIT/ML VIAL SQ SCH ×2 (17:13→20:16)
[2022-06-06 19:58] LABS: Glucose,Whole Blood 196 mg/dL (70-110)
[2022-06-06] MEDS: ATORVASTATIN 80 MG TAB PO SCH (20:17)
--- NOTE | 2022-06-06 21:04 | P.HPIM ---
History of Present Illness H&P Date: 06/05/22 This is a 71-year-old male with past medical history significant for COPD. Patient states over the last 4 days been having difficulty breathing and getting progressively worse. Patient states she can also increase in his cough and occasionally has some sputum production. Patient denies any fever chill. Patient denies any chest pain patient denies any abdominal pain patient denies any nausea vomiting diarrhea. Patient states on 4 L of oxygen at home. Patient states EMS gave him treatments on the way and it made him feel a little bit better. Patient denies any headache patient denies numbness weakness. Patient denies any lightheadedness or dizziness. Patient denies any swelling to legs or calf tenderness. Review of Systems GENERAL: Patient denies fever. Denies chills. EYES: Denies blurred vision. Denies vision changes. Denies eye pain. EARS, NOSE, MOUTH, & THROAT: Denies headache. Denies sore throat. Denies ear pain. RESPIRATORY: Admits cough and shortness of breath. Denies sputum production. Denies hemoptysis. CARDIOVASCULAR: Denies chest pain or pressure. Denies palpitations. Denies arrhythmias. GASTROINTESTINAL: Denies abdominal pain. Denies diarrhea. Denies constipation. Denies nausea. Denies vomiting. Denies heartburn. Denies blood in the stool. GENITOURINARY: Denies urinary frequency. Denies burning. Denies dysuria. Denies cloudy urine. Denies blood in the urine. MUSCULOSKELETAL: Denies myalgias. Denies joint swelling. Denies decreased range of motion beyond patients baseline. INTEGUMENTARY: Denies pruitis. Denies rash. PSYCHIATRIC: Denies suicidal or homicial ideations. ENDOCRINE: Denies weight change. Denies polydipsia. Denies polyuria Past Medical History Past Medical History: Coronary Artery Disease (CAD), Cancer, COPD, GERD/Reflux, Hearing Disorder / Deafness, Hyperlipidemia, Hypertension, Pneumonia, Prostate Disorder, Vascular Disorder Additional Past Medical History / Comment(s): Laryngeal cancer recently completed radiation treatments, severe COPD, chronic hypoxic and hypercapnic respiratory failure with home O2, resent respiratory failure/vented d/t accidental opiate overdose, history of autoimmune disease sees Dr. Goins and [facility]-never received specifics about the disease type, aortic aneurysm with repair, thoracolumbar pain/T4 fracture with recent surgery, nephrolithiasis-has passed stones on his own in the past, occasional bilateral leg cramps, left eardrum perforation/[place] History of Any Multi-Drug Resistant Organisms: Other MDRO Past Surgical History: Appendectomy, Back Surgery, Ear Surgery, Heart Catheterization, Hernia Repair Additional Past Surgical History / Comment(s): 06/29/19 T4 kyphoplasty, Endovascular stent grafting of a abdominal aortic aneurysm. Facial reconstructive surgery. L ear surgery-myringotomy. Umbilical hernia. Colonoscopy-benign polypectomy. R cataract removed with lens. L eye had glass removed and lens placed. Past Anesthesia/Blood Transfusion Reactions: No Reported Reaction Additional Past Anesthesia/Blood Transfusion Reaction / Comment(s): Pt has never recieved blood. Smoking Status: Current every day smoker - Past Family History Brother(s) Family Medical History: Cancer, Fibromyalgia Additional Family Medical History / Comment(s): Brother of lung cancer at the age of 42 yrs. He was a smoker. Sister(s) Family Medical History: Cancer, Fibromyalgia Additional Family Medical History / Comment(s): Sister of lung cancer. She was a smoker. Father Family Medical History: Myocardial Infarction ([place]) Additional Family Medical History / Comment(s): Father at age 75 yrs of a [place] Mother Family Medical History: Cancer Additional Family Medical History / Comment(s): Mother of metastatic cancer (unknown primary) at age 42 yrs. Medications and Allergies Home Medications Medication Instructions Recorded Confirmed Type RX: Atorvastatin [Lipitor] 80 mg PO HS 05/04/18 06/04/22 History RX: lisinopriL [Zestril] 20 mg PO BID 03/04/19 06/04/22 History RX: amLODIPine [Norvasc] 5 mg PO BID 06/25/19 06/04/22 History RX: Albuterol Nebulized [Ventolin 2.5 mg INHALATION RT-QID PRN 03/06/20 06/04/22 History Nebulized] RX: Albuterol Sulfate [Ventolin 2 puff INHALATION RT-QID PRN 03/06/20 06/04/22 History HFA] RX: SILVER sulfADIAZINE CREAM 1 applic TOPICAL BID 03/06/20 06/04/22 History [Silvadene Cream] RX: Ergocalciferol (Vitamin D2) 1,250 mcg PO MO 11/09/22 01/02/23 History [Drisdol (50,000 Iu)] RX: Tamsulosin HCl [Flomax] 0.4 mg PO DAILY 04/11/22 06/04/22 History RX: Aspirin EC [Ecotrin Low Dose] 81 mg PO DAILY #30 tab 04/16/22 06/04/22 Rx RX: Budesonide-Formot 160-4.5 Mcg 2 puff INHALATION RT-BID #1 each 04/16/22 06/04/22 Rx [Symbicort 160-4.5 Mcg Inhaler] RX: Metoprolol Succinate (ER) 12.5 mg PO DAILY #30 tab 04/16/22 06/04/22 Rx [Toprol XL] RX: Omeprazole 20 mg PO DAILY 05/02/22 06/04/22 History RX: Ondansetron Odt [Zofran ODT] 8 mg PO Q8HR PRN 05/02/22 06/04/22 History RX: traMADol HCL 50 mg PO Q6H PRN 06/04/22 06/04/22 History dexAMETHasone [Decadron] See Taper PO DIRECTED 06/04/22 06/04/22 History Allergies Allergy/AdvReac Type Severity Reaction Status Date / Time Penicillins Allergy Rash/Hives Verified 06/04/22 15:10 gabapentin AdvReac Hallucinati Verified 06/04/22 15:10 ons/AMS Physical Exam Osteopathic Statement: *. No significant issues noted on an osteopathic structural exam other than those noted in the History and Physical/Consult. Vitals: Vital Signs Temp Pulse Resp BP Pulse Ox FiO2 06/05/22 11:16 98.0 F 64 18 148/88 100 06/05/22 11:15 66 06/05/22 11:04 64 60 06/05/22 09:46 98.0 F 80 18 123/78 97 06/05/22 07:48 67 15 107/75 97 06/05/22 07:31 64 06/05/22 07:19 60 06/05/22 07:18 68 06/05/22 06:00 81 16 112/72 99 06/05/22 05:00 88 16 141/92 98 06/05/22 04:00 69 16 93/67 96 06/05/22 03:28 60 06/05/22 03:00 72 16 104/79 96 06/05/22 02:00 77 16 156/100 96 06/05/22 01:00 77 16 131/85 97 06/05/22 00:00 81 16 119/81 96 06/04/22 23:37 97 06/04/22 23:00 86 16 128/99 96 06/04/22 22:00 81 16 138/86 98 06/04/22 21:00 83 16 122/80 95 06/04/22 20:00 81 16 128/84 96 06/04/22 19:47 82 60 06/04/22 17:32 83 24 131/84 93 L 06/04/22 16:50 60 06/04/22 15:00 78 24 133/76 95 06/04/22 14:13 80 06/04/22 14:09 85 28 H 159/87 94 L 06/04/22 13:50 82 06/04/22 12:56 98.7 F 82 28 H 126/94 90 L Intake and Output 06/04/22 06/05/22 06/05/22 22:59 06:59 14:59 Other: Weight 74.389 kg PHYSICAL EXAM: VITAL SIGNS: As above GENERAL: Sitting up in bed, drowsy ,no acute distress HEENT: Atraumatic, normocephalic ,Conjunctivae normal. NECK: Supple, No JVD. CARDIOVASCULAR: S1, S2 regular. No murmur RESPIRATION: Breath sounds diminished in the bases. Scattered rhonchi, expiratory wheezing. ABDOMEN: Soft, nontender .no masses palpable.Bowel sounds heard. LEGS: No edema. no swelling PSYCHIATRY: Alert and oriented 2, mood and affect normal. NERVOUS SYSTEM: Limited exam; droggy- Cranial nerves II through XII grossly intact. Skin: Warm and dry, no rash Results CBC & Chem 7: 06/04/22 13:30 06/04/22 13:30 Labs: Abnormal Lab Results - Last 24 Hours (Table) 06/04/22 06/04/22 06/04/22 Range/Units 13:30 13:30 13:30 Lymphocytes # 0.7 L (1.0-4.8) k/uL Sodium 131 L (137-145) mmol/L Chloride 84 L (98-107) mmol/L Carbon Dioxide 44 H* (22-30) mmol/L Creatinine 0.56 L (0.66-1.25) mg/dL Glucose 108 H (74-99) mg/dL Plasma Lactic Acid Ricky 2.3 H* (0.7-2.0) mmol/L Calcium 8.1 L (8.4-10.2) mg/dL 06/04/22 06/05/22 Range/Units 20:48 00:43 Lymphocytes # (1.0-4.8) k/uL Sodium (137-145) mmol/L Chloride (98-107) mmol/L Carbon Dioxide (22-30) mmol/L Creatinine (0.66-1.25) mg/dL Glucose (74-99) mg/dL Plasma Lactic Acid Ricky 2.1 H* 3.2 H* (0.7-2.0) mmol/L Calcium (8.4-10.2) mg/dL Thrombosis Risk Factor Assmnt - Choose All That Apply Any of the Below Risk Factors Present?: Yes Each Factor Represents 1 point: Acute [place], Serious lung disease incl. pneumonia (< 1month) Other Risk Factors: Yes Each Risk Factor Represents 2 Points: Age 61-74 years, Malignancy Other congenital or acquired thrombophilia - If yes, enter type in comment: No Thrombosis Risk Factor Assessment Total Risk Factor Score: 6 Thrombosis Risk Factor Assessment Level: High Risk Assessment and Plan (1) COPD exacerbation Current Visit: Yes Status: Acute Code(s): J44.1 - CHRONIC OBSTRUCTIVE PULMONARY DISEASE W (ACUTE) EXACERBATION SNOMED Code(s): 554931169 (2) Acute respiratory failure Current Visit: No Status: Acute Code(s): J96.00 - ACUTE RESPIRATORY FAILURE, UNSP W HYPOXIA OR HYPERCAPNIA SNOMED Code(s): 94548668 (3) CAD (coronary artery disease) Current Visit: No Status: Acute Code(s): I25.10 - ATHSCL HEART DISEASE OF [place] CORONARY ARTERY W/O ANG PCTRS SNOMED Code(s): 00014085 (4) Hypertension Current Visit: No Status: Acute Code(s): I10 - ESSENTIAL (PRIMARY) HYPERTENSION SNOMED Code(s): 59980285 (5) Laryngeal cancer Current Visit: No Status: Acute Priority: Medium Code(s): C32.9 - MALIGNANT NEOPLASM OF [place], UNSPECIFIED SNOMED Code(s): 160029566 Plan: Patient placed on BiPAP and admitted to the hospital placed on IV antibiotics because of COPD exacerbation
[2022-06-07] MEDS: ONDANSETRON ODT 8 MG TAB.RAPDIS PO PRN ×3 (00:40→18:02)
[2022-06-07 05:58] LABS: Glucose,Whole Blood 158 mg/dL (70-110)
[2022-06-07] MEDS: methylPREDNISolone SOD SUCCI 125 MG/2 ML VIAL IV SCH ×3 (06:27→17:23)
[2022-06-07] MEDS: PANTOPRAZOLE 40 MG TABLET PO SCH (06:28)
[2022-06-07] MEDS: INSULIN ASPART (NovoLOG) 100 UNIT/ML VIAL SQ SCH ×4 (06:28→20:49)
[2022-06-07] MEDS: SYMBICORT 160-4.5 MCG INHALER INHALATION SCH ×2 (06:59→20:39)
[2022-06-07] MEDS: IPRATROPIUM-ALBUTEROL 3 ML NEB INHALATION SCH ×4 (06:59→20:39)
[2022-06-07] MEDS: METOPROLOL SUCCINATE (ER) 25 MG TAB.ER.24H PO SCH (09:18)
[2022-06-07] MEDS: traMADol 50 MG TAB PO PRN ×2 (09:18→16:35)
[2022-06-07] MEDS: amLODIPine 5 MG TAB PO SCH ×2 (09:18→20:49)
[2022-06-07] MEDS: TAMSULOSIN 0.4 MG CAP.ER.24H PO SCH (09:18)
[2022-06-07] MEDS: ASPIRIN 81 MG PO SCH (09:18)
[2022-06-07] MEDS: DOXYCYCLINE 100 MG CAP PO SCH ×2 (09:18→20:49)
[2022-06-07] MEDS: lisinopriL 20 MG TAB PO SCH ×2 (09:18→20:49)
--- NOTE | 2022-06-07 09:54 | P.CNPUL ---
History of Present Illness Consult date: 06/07/22 Reason for consult: dyspnea, COPD History of present illness: 71-year-old male patient who is very well-known to me. The patient has severe COPD with an FEV1 of 34% of predicted. The patient is also known to have coronary artery disease with mild triple-vessel disease, other comorbidities include abdominal aortic aneurysm, hypertension, hyperlipidemia and history of laryngeal cancer for which the patient is receiving radiation therapy. He has chronic pain also. The patient was in the hospital in May 2022 for an accidental overdose with liquid morphine and he was treated with Narcan and following that the patient came in to the intensive care unit where he was intubated and placed on a mechanical ventilator and subsequently was extubated without any major difficulties and the patient was discharged home. During this current admission, the patient is coming in with worsening shortness of breath. The patient stated that over the past few days, he was having increased dyspnea and was progressively getting worse. He also had increased cough and some sputum production. Denied any fever or chills. He is on 4 L of oxygen at home by nasal cannula. No chest pain. No swelling in lower extremities. During this current admission, the patient was hospitalized for an acute COPD exacerbation. Chest x-ray showed chronic findings. The labs for now she'll a number of missing of 8.7 with a hemoglobin 15.7 and a platelet count of 183. Sodium is at 131 with a potassium level of 3.9, bicarbonate is 44 with a BUN of 10 and a creatinine 0.5. Lactic acid was high as 2.1-0.9 and troponin been negative. For now, the patient has normal cognition profile. He is on doxycycline as an empiric antibiotic coverage. Is on DuoNeb about treatments [id number]. He is also on IV Solu-Medrol 60 mg every 6 hours. Rest of the medications are his typical outpatient medications and all of them are resumed. Noted on outpatient basis, the patient has a maternal Symbicort and Ventolin HFA and albuterol updrafts and oxygen therapy. He is still smoking 1/2 PPD. Review of Systems Constitutional: Reports poor appetite, Reports weakness, Reports weight loss Eyes: denies as per HPI, denies blurred vision, denies bulging eye, denies decreased vision, denies diplopia, denies discharge, denies dry eye, denies irritation, denies itching, denies pain, denies photophobia, denies loss of peripheral vision, denies loss of vision, denies tunnel vision/blind spots Ears: deny: decreased hearing, ear discharge, earache, tinnitus Ears, nose, mouth and throat: Reports hoarseness Breasts: absent: as per HPI, gynecomastia Cardiovascular: Reports decreased exercise tolerance, Reports dyspnea on exertion Respiratory: Reports cough, Reports dyspnea, Reports home oxygen, Reports wheezing Gastrointestinal: Reports as per HPI Genitourinary: Reports as per HPI Musculoskeletal: Reports as per HPI Musculoskeletal: absent: ankle pain, ankle stiffness, ankle swelling Integumentary: Reports as per HPI Neurological: Reports as per HPI Psychiatric: Reports as per HPI Endocrine: Reports as per HPI Hematologic/Lymphatic: Reports as per HPI Allergic/Immunologic: Reports as per HPI Past Medical History Past Medical History: Coronary Artery Disease (CAD), Cancer, COPD, GERD/Reflux, Hearing Disorder / Deafness, Hyperlipidemia, Hypertension, Pneumonia, Prostate Disorder, Vascular Disorder Additional Past Medical History / Comment(s): Laryngeal cancer recently completed radiation treatments, severe COPD, chronic hypoxic and hypercapnic respiratory failure with home O2, resent respiratory failure/vented d/t accidental opiate overdose, history of autoimmune disease sees Dr. Goins and [facility]-never received specifics about the disease type, aortic aneurysm with repair, thoracolumbar pain/T4 fracture with recent surgery, nephrolithiasis-has passed stones on his own in the past, occasional bilateral leg cramps, left eardrum perforation/[place] History of Any Multi-Drug Resistant Organisms: Other MDRO Past Surgical History: Appendectomy, Back Surgery, Ear Surgery, Heart Catheterization, Hernia Repair Additional Past Surgical History / Comment(s): 06/29/19 T4 kyphoplasty, Endovascular stent grafting of a abdominal aortic aneurysm. Facial reconstructive surgery. L ear surgery-myringotomy. Umbilical hernia. Colonoscopy-benign polypectomy. R cataract removed with lens. L eye had glass removed and lens placed. Past Anesthesia/Blood Transfusion Reactions: No Reported Reaction Additional Past Anesthesia/Blood Transfusion Reaction / Comment(s): Pt has never recieved blood. Smoking Status: Current every day smoker - Past Family History Brother(s) Family Medical History: Cancer, Fibromyalgia Additional Family Medical History / Comment(s): Brother of lung cancer at the age of 42 yrs. He was a smoker. Sister(s) Family Medical History: Cancer, Fibromyalgia Additional Family Medical History / Comment(s): Sister of lung cancer. She was a smoker. Father Family Medical History: Myocardial Infarction ([place]) Additional Family Medical History / Comment(s): Father at age 75 yrs of a [place] Mother Family Medical History: Cancer Additional Family Medical History / Comment(s): Mother of metastatic cancer (unknown primary) at age 42 yrs. Medications and Allergies Home Medications Medication Instructions Recorded Confirmed Type Atorvastatin [Lipitor] 80 mg PO HS 05/04/18 06/04/22 History lisinopriL [Zestril] 20 mg PO BID 03/04/19 06/04/22 History amLODIPine [Norvasc] 5 mg PO BID 06/25/19 06/04/22 History Albuterol Nebulized [Ventolin 2.5 mg INHALATION RT-QID PRN 03/06/20 06/04/22 History Nebulized] Albuterol Sulfate [Ventolin HFA] 2 puff INHALATION RT-QID PRN 03/06/20 06/04/22 History SILVER sulfADIAZINE CREAM 1 applic TOPICAL BID 03/06/20 06/04/22 History [Silvadene Cream] Ergocalciferol (Vitamin D2) 1,250 mcg PO MO 04/11/22 06/04/22 History [Drisdol (50,000 Iu)] Tamsulosin HCl [Flomax] 0.4 mg PO DAILY 04/11/22 06/04/22 History Aspirin EC [Ecotrin Low Dose] 81 mg PO DAILY #30 tab 04/16/22 06/04/22 Rx Budesonide-Formot 160-4.5 Mcg 2 puff INHALATION RT-BID #1 each 04/16/22 06/04/22 Rx [Symbicort 160-4.5 Mcg Inhaler] Metoprolol Succinate (ER) [Toprol 12.5 mg PO DAILY #30 tab 04/16/22 06/04/22 Rx XL] Omeprazole 20 mg PO DAILY 05/02/22 06/04/22 History Ondansetron Odt [Zofran ODT] 8 mg PO Q8HR PRN 05/02/22 06/04/22 History dexAMETHasone [Decadron] See Taper PO DIRECTED 06/04/22 06/04/22 History traMADol HCL 50 mg PO Q6H PRN 06/04/22 06/04/22 History Allergies Allergy/AdvReac Type Severity Reaction Status Date / Time Penicillins Allergy Rash/Hives Verified 06/04/22 15:10 gabapentin AdvReac Hallucinati Verified 06/04/22 15:10 ons/AMS Physical Exam Vitals: Vital Signs Temp Pulse Pulse Resp BP Pulse Ox FiO2 06/07/22 08:00 97.8 F 86 20 147/92 94 L 06/07/22 07:11 86 06/07/22 07:01 84 98 06/07/22 04:00 97.9 F 81 102/67 97 06/07/22 03:48 99 06/06/22 23:08 79 99/61 99 06/06/22 20:51 84 06/06/22 20:39 80 06/06/22 20:00 98.0 F 77 18 119/81 96 06/06/22 16:46 72 06/06/22 16:36 72 06/06/22 16:00 98.2 F 82 18 113/69 97 06/06/22 12:00 96.9 F L 74 18 110/70 98 06/06/22 11:41 70 06/06/22 11:29 70 50 Intake and Output 06/06/22 06/07/22 06/07/22 22:59 06:59 14:59 Intake Total 1200 Output Total 400 Balance 1200 -400 Intake: Oral 1200 Output: Urine 400 Other: Voiding Method Urinal Urinal Weight 73 kg General Appearance no diaphoresis, no respiratory distress, speech not interrupted by breaths, no dyspnea, no pallor, not cachectic, well nourished, appears well, the patient is currently on 8 L of oxygen by nasal cannula. He has obvious hoarseness. Head exam was generally normal. There was no scleral icterus or corneal arcus. Mucous membranes were moist. HEENT no pursed lip breathing, no jugular venous distention, no mucous membrane cyanosis, no perioral cyanosis, mallampati classification: class 1 Chest no barrel chest, no retractions, no sternocleidomastoid muscle contractions, no supraclavicular retractions, no intercostal retractions, there is marked. decreased air movement, along with prolonged expiratory wheezing, decreased air movement Heart no right ventricular heave, no distant heart sounds, no s3 gallop GI bowel sounds: hyperactive (borborygmi), bowel sounds: diminished or absent Extremities no cyanosis, no clubbing, no edema Neurologic no decreased mental status, no somnolence, no confusion Examination of the skin revealed no evidence of significant rashes, suspicious appearing nevi or other concerning lesions. Results - Laboratory Findings CBC and BMP: 06/04/22 13:30 06/04/22 13:30 PT/INR, D-dimer PT 11.0 sec (9.0-12.0) 06/04/22 13:30 INR 1.1 (<1.2) 06/04/22 13:30 Abnormal lab findings: Abnormal Labs 06/04/22 06/04/22 06/04/22 13:30 13:30 13:30 Lymphocytes # 0.7 L Sodium 131 L Chloride 84 L Carbon Dioxide 44 H* Creatinine 0.56 L Glucose 108 H POC Glucose (mg/dL) Plasma Lactic Acid Ricky 2.3 H* Calcium 8.1 L 06/04/22 06/05/22 06/05/22 20:48 00:43 16:48 Lymphocytes # Sodium Chloride Carbon Dioxide Creatinine Glucose POC Glucose (mg/dL) 149 H Plasma Lactic Acid Ricky 2.1 H* 3.2 H* Calcium 06/05/22 06/06/22 06/06/22 20:22 06:09 11:17 Lymphocytes # Sodium Chloride Carbon Dioxide Creatinine Glucose POC Glucose (mg/dL) 168 H 147 H 170 H Plasma Lactic Acid Ricky Calcium 06/06/22 06/06/22 06/07/22 16:43 19:57 05:56 Lymphocytes # Sodium Chloride Carbon Dioxide Creatinine Glucose POC Glucose (mg/dL) 167 H 196 H 158 H Plasma Lactic Acid Ricky Calcium Assessment and Plan Plan: Acute COPD exacerbation, likely due to his ongoing smoking habits. A superinfection with a virus cannot be completely ruled out and the viral screen needs to be completed. Accordingly, the patient is going to be screened for influenza, RSV and Covid 19. Noted the patient has severe oxygen dependent COPD with an FEV1 of 34% of predicted. Chronic hypoxic respiratory failure Chronic hypercapnic respiratory failure secondary to COPD Laryngeal cancer completed a total of 21 sessions of radiation therapy Recent hospitalization for accidental opiate overdose requiring intubation and mechanical ventilation Abdominal aortic aneurysm History of BPH Hyperlipidemia Coronary artery disease with nonocclusive multivessel CAD Heartburn Hoarseness secondary to above Plan Agree on the current treatment with bronchodilators and steroids We'll check the patient for influenza a and influenza B and RSV and Covid 19 Check a pro-calcitonin level Continue empiric antibiotic coverage with doxycycline Provide patient incentive spirometer Will need further adjustment on his inhalers on outpatient basis. Recommend switching this patient from Symbicort to Trelegy Ellipta.
[2022-06-07 10:08] LABS: African American GFR (CKD) >90 (>60 ml/min/1.73 sqM); Blood Urea Nitrogen 38 mg/dL (9-20); Calcium 8.6 mg/dL (8.4-10.2); Chloride 86 mmol/L (98-107); Glucose 173 mg/dL (74-99); Non-African American GFR(CKD) >90 (>60 ml/min/1.73 sqM); Potassium 3.8 mmol/L (3.5-5.1); Sodium 132 mmol/L (137-145)
[2022-06-07 10:15] LABS: Anion Gap 4 mmol/L
[2022-06-07 10:20] LABS: Carbon Dioxide 42 mmol/L (22-30)
[2022-06-07 11:06] LABS: Glucose,Whole Blood 156 mg/dL (70-110)
--- NOTE | 2022-06-07 13:07 | P.PN ---
Subjective Progress Note Date: 06/07/22 This is a 71-year-old gentleman with past medical history of recently diagnosed laryngeal cancer -receiving radiation treatments at [facility], severe COPD, nicotine dependence, CAD, hypertension and multiple other medical issues, admitted with acute COPD exacerbation, chronic hypoxic and hypercapnic respiratory failure, recently hospitalized for accidental opiate overdose requiring intubation/mechanical ventilation and multiple other medical issues. Maintained on nebulized bronchodilators, steroids, Symbicort, doxycycline. BiPAP throughout the night. Afebrile. CODE STATUS addressed, wishes to remain a full code. 06/07/2022 Continues on nebulized bronchodilators, steroids and empiric antibiotics. Objective - Vital Signs Vital signs: Vital Signs Temp 97.8 F 06/07/22 08:00 Pulse 86 06/07/22 08:00 Resp 20 06/07/22 08:00 BP 147/92 06/07/22 08:00 Pulse Ox 94 L 06/07/22 08:00 FiO2 50 06/06/22 11:29 Intake & Output 06/06/22 06/07/22 06/07/22 18:59 06:59 18:59 Intake Total 1380 Output Total 380 400 Balance 1000 -400 Weight 74.389 kg 73 kg Intake: Oral 1380 Output: Urine 380 400 Other: Voiding Method Urinal Urinal - Exam - Exam PHYSICAL EXAM: VITAL SIGNS: As above GENERAL: Sitting up in bed, hoarse,no acute distress HEENT: Atraumatic, normocephalic ,Conjunctivae normal. Oral mucosa moist. NECK: Supple, No JVD. CARDIOVASCULAR: S1, S2 regular. No murmur RESPIRATION: Breath sounds diminished in the bases. Scattered rhonchi, expiratory wheezing. ABDOMEN: Soft, nontender .no masses palpable.Bowel sounds heard. LEGS: No edema. no swelling PSYCHIATRY: Alert and oriented 2, mood and affect normal. NERVOUS SYSTEM: Cranial nerves II through XII grossly intact. Skin: Warm and dry, no rash - Labs CBC & Chem 7: 06/04/22 13:30 06/07/22 09:45 Labs: Abnormal Lab Results - Last 24 Hours (Table) 06/06/22 06/06/22 06/06/22 Range/Units 11:17 16:43 19:57 POC Glucose (mg/dL) 170 H 167 H 196 H (70-110) mg/dL 06/07/22 Range/Units 05:56 POC Glucose (mg/dL) 158 H (70-110) mg/dL Assessment and Plan Assessment: Acute on Chronic hypoxic, hypercapnic respiratory failure secondary to COPD exacerbation in a patient with history of laryngeal carcinoma. Recently hospitalized for accidental opiate overdose requiring intubation/mechanical ventilation. Lactic acidosis, resolved Chronic pain syndrome CAD Hypertension Hyperlipidemia Ongoing nicotine dependence Autoimmune disease, follows with both Dr. Goins and [facility] night [facility] History of Abdominal aortic aneurysm, outpatient monitoring Plan: Continue on current medication regime ,monitoring and symptomatic treatment. Maintain empiric antibiotics, aggressive pulmonary toileting with nebulized bronchodilators, IV steroids . Smoking cessation reinforced. Pulmonary consult in place with recommendations pending Prognosis guarded given multiple complex medical issues. The impression and plan of care has been dictated as directed. : I performed a history and examination of this patient, discussed the same with the dictator. I agree with the dictator's note ,documented as a scribe. Any additional findings or plans will be noted.
--- NOTE | 2022-06-07 14:14 | P.CONS ---
History of Present Illness - Reason for Consult Consult date: 06/07/22 Goals of care Requesting physician: Stella Weinberg - Chief Complaint Shortness of breath - History of Present Illness Patient is a 71-year-old male the past medical history significant for laryngeal cancer with radiation treatment, severe COPD FEV1 34% predicted, 4 L home O2, hyperlipidemia, hypertension, and AAA with repair. He presented to the emergency department on 06/04/22 with difficulty in breathing for the last 4 days that has been getting progressively worse. Patient denied any fever chill. Patient denied any chest pain, abdominal pain, nausea, vomiting, or diarrhea. Pulmonary is following. Has been treated with bronchodilators, steroids, and prophylactic antibiotics. Past Medical History Past Medical History: Coronary Artery Disease (CAD), Cancer, COPD, GERD/Reflux, Hearing Disorder / Deafness, Hyperlipidemia, Hypertension, Pneumonia, Prostate Disorder, Vascular Disorder Additional Past Medical History / Comment(s): Laryngeal cancer recently completed radiation treatments, severe COPD, chronic hypoxic and hypercapnic respiratory failure with home O2, resent respiratory failure/vented d/t accidental opiate overdose, history of autoimmune disease sees Dr. Goins and [facility]-never received specifics about the disease type, aortic aneurysm with repair, thoracolumbar pain/T4 fracture with recent surgery, nephrolithiasis-has passed stones on his own in the past, occasional bilateral leg cramps, left eardrum perforation/[place] History of Any Multi-Drug Resistant Organisms: Other MDRO Past Surgical History: Appendectomy, Back Surgery, Ear Surgery, Heart Catheterization, Hernia Repair Additional Past Surgical History / Comment(s): 06/29/19 T4 kyphoplasty, Endovascular stent grafting of a abdominal aortic aneurysm. Facial reconstructive surgery. L ear surgery-myringotomy. Umbilical hernia. Colonoscopy-benign polypectomy. R cataract removed with lens. L eye had glass removed and lens placed. Past Anesthesia/Blood Transfusion Reactions: No Reported Reaction Additional Past Anesthesia/Blood Transfusion Reaction / Comm: Pt has never recieved blood. Smoking Status: Current every day smoker - Past Family History Brother(s) Family Medical History: Cancer, Fibromyalgia Additional Family Medical History / Comment(s): Brother of lung cancer at t he age of 42 yrs. He was a smoker. Sister(s) Family Medical History: Cancer, Fibromyalgia Additional Family Medical History / Comment(s): Sister of lung cancer. She was a smoker. Father Family Medical History: Myocardial Infarction ([place]) Additional Family Medical History / Comment(s): Father at age 75 yrs of a [place] Mother Family Medical History: Cancer Additional Family Medical History / Comment(s): Mother of metastatic cancer (unknown primary) at age 42 yrs. Medications and Allergies Home Medications Medication Instructions Recorded Confirmed Type Atorvastatin [Lipitor] 80 mg PO HS 05/04/18 06/04/22 History lisinopriL [Zestril] 20 mg PO BID 03/04/19 06/04/22 History amLODIPine [Norvasc] 5 mg PO BID 06/25/19 06/04/22 History Albuterol Nebulized [Ventolin 2.5 mg INHALATION RT-QID PRN 03/06/20 06/04/22 History Nebulized] Albuterol Sulfate [Ventolin HFA] 2 puff INHALATION RT-QID PRN 03/06/20 06/04/22 History SILVER sulfADIAZINE CREAM 1 applic TOPICAL BID 03/06/20 06/04/22 History [Silvadene Cream] Ergocalciferol (Vitamin D2) 1,250 mcg PO MO 04/11/22 06/04/22 History [Drisdol (50,000 Iu)] Tamsulosin HCl [Flomax] 0.4 mg PO DAILY 04/11/22 06/04/22 History Aspirin EC [Ecotrin Low Dose] 81 mg PO DAILY #30 tab 04/16/22 06/04/22 Rx Budesonide-Formot 160-4.5 Mcg 2 puff INHALATION RT-BID #1 each 04/16/22 06/04/22 Rx [Symbicort 160-4.5 Mcg Inhaler] Metoprolol Succinate (ER) [Toprol 12.5 mg PO DAILY #30 tab 04/16/22 06/04/22 Rx XL] Omeprazole 20 mg PO DAILY 05/02/22 06/04/22 History Ondansetron Odt [Zofran ODT] 8 mg PO Q8HR PRN 05/02/22 06/04/22 History dexAMETHasone [Decadron] See Taper PO DIRECTED 06/04/22 06/04/22 History traMADol HCL 50 mg PO Q6H PRN 06/04/22 06/04/22 History Allergies Allergy/AdvReac Type Severity Reaction Status Date / Time Penicillins Allergy Rash/Hives Verified 06/04/22 15:10 gabapentin AdvReac Hallucinati Verified 06/04/22 15:10 ons/AMS Physical Exam Vitals: Vital Signs Temp Pulse Pulse Resp BP Pulse Ox 06/07/22 11:32 79 06/07/22 11:22 97.6 F 78 18 163/85 99 06/07/22 11:18 78 06/07/22 09:41 94 L 06/07/22 08:00 97.8 F 86 20 147/92 94 L 06/07/22 07:11 86 06/07/22 07:01 84 98 06/07/22 04:00 97.9 F 81 102/67 97 06/07/22 03:48 99 06/06/22 23:08 79 99/61 99 06/06/22 20:51 84 06/06/22 20:39 80 06/06/22 20:00 98.0 F 77 18 119/81 96 06/06/22 16:46 72 06/06/22 16:36 72 06/06/22 16:00 98.2 F 82 18 113/69 97 Intake and Output 06/06/22 06/07/22 06/07/22 22:59 06:59 14:59 Intake Total 1200 Output Total 400 Balance 1200 -400 Intake: Oral 1200 Output: Urine 400 Other: Voiding Method Urinal Urinal Weight 73 kg General: Well developed, well nourished. No acute distress. Chronically ill appearing HEENT: Head is atraumatic, normocephalic. Sclera are clear. CV: Heart regular in rate and rhythm positive S1 and S2. Lungs: Expiratory wheezes, respirations even and nonlabored, nonproductive cough. On 8 L high flow nasal cannula Abdomen/GI: Soft.No guarding, rigidity, or abdominal tenderness. : No suprapubic tenderness. Musculoskeletal/ Extremities: ROPER, + generalized weakness Skin: Warm and dry Neurologic: Awake, alert and oriented times 3. CN II-XII grossly intact. No focal deficits. Psychiatric: Appropriate mood and affect. Results CBC & Chem 7: 06/04/22 13:30 06/07/22 09:45 Labs: Abnormal Lab Results - Last 24 Hours (Table) 06/06/22 06/06/2223 Range/Units 16:43 19:57 05:56 Sodium (137-145) mmol/L Chloride (98-107) mmol/L Carbon Dioxide (22-30) mmol/L BUN (9-20) mg/dL Glucose (74-99) mg/dL POC Glucose (mg/dL) 167 H 196 H 158 H (70-110) mg/dL 06/07/22 06/07/22 Range/Units 09:45 11:03 Sodium 132 L (137-145) mmol/L Chloride 86 L (98-107) mmol/L Carbon Dioxide 42 H* (22-30) mmol/L BUN 38 H (9-20) mg/dL Glucose 173 H (74-99) mg/dL POC Glucose (mg/dL) 156 H (70-110) mg/dL Chest x-ray: report reviewed Assessment and Plan Assessment: Social * 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, 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 [employer] * Marital status - for 28 years * Children/grandchildren - 3 adult children, 2 girls and 1 boyu * Residence - House * Who do you reside with - * ETOH - Occasional * Tobacco - Current smoker * Illicit drugs - No Spiritual/Cultural * A spiritual person - Yes * Buddhist - Worship * Belong to a particular mormon - No * Beliefs a source of comfort and strength - Yes * Gnosticism or cultural practices restrictions - No * EOL considerations/rituals - No Functional Assessment * Able to walk independently - Yes * Assistive devices - has walker and cane, but does not use them * Able to use the bathroom independently - Yes * Continent - Yes * Require assistance bathing- No * Able to feed self - Yes * Who prepares meals - * How many meals a day eaten - 2 * Able to clean house/do laundry - a little at a time * Transportation -does not drive currently, his friend provides transportation * Able to shop - Yes, with scooter * Who manages medications - Patient * Who manages finances - Patient Psychological/Emotional * Dementia present - No * Insight and judgment - Intact * Depression - Yes, occasionally * Suicidal thoughts - No * Good support system - Yes * Patients goals - prolonged survival * Frequent hospitalizations - Yes * Desire to keep coming back to the hospital for treatment - Yes Symptoms * Pain -4/10 headache, Continue Tramadol * Fatigue - Yes, + generalized weakness and fatigue, continue PT/OT * SOB - Yes, Continue Solumedrol, Duoneb, Albuterol, Symbicort, and Vibramycin * Insomnia - Yes, Melatonin added * N/V - Occasional, continue Zofran * Anxiety - No * Depression - Occasional * Confusion - No * Agitation - No * Hallucinations - No * Appetite/weight loss - + recent appetite loss, no weight loss. Continue regular diet and ensure TIDWM * Dysphagia - patient has some discomfort and difficulty swallowing secondary to radiation, no S/S of aspiration * Constipation - LBM prior to admission, Senokot S added * Incontinence - no, voids per urinal * Itch - no * Cough - no Plan: Summary/Goals - the patient is sitting up in his bed and eating lunch. Information regarding palliative care philosophies and services provided. Education provided regarding his severe COPD with a at the V1 of 34% predicted. The patient understands that there is no cure for his COPD and treatment options are limited. He also understands that there will come a point in time when he does not respond to the treatments as well. He has had multiple conversations with his regarding his end-of-life wishes. His is also chronically ill with CHF and CKD. The patient states that he and his already have their mohamud written. At this point the patient wishes to come back to the hospital for treatment if he had another COPD exacerbation. His goal is for prolonged survival. CODE STATUS discussed in detail. The patient wishes to remain a full code. That is with the understanding that if he were ever placed on a mechanical ventilator he may not ever come off of it. He states that his family understands that he is okay being on a ventilator for a short period of time. He states his family knows his wishes. The patient is interested in receiving palliative care services at home to prevent frequent readmissions to the hospital Recommendations - home with palliative care services when medically stable Advanced Directives - none on file Code Status - full code Thank you for this consultation Nikki Brennan [facility] [id number] Email: [email or web address] Time with Patient: Greater than 30
[2022-06-07] MEDS: SENNOSIDES-DOCUSATE SODIUM 1 EACH TAB PO SCH (14:42)
[2022-06-07 16:51] LABS: Glucose,Whole Blood 155 mg/dL (70-110)
[2022-06-07 19:48] LABS: Glucose,Whole Blood 155 mg/dL (70-110)
[2022-06-07] MEDS: ATORVASTATIN 80 MG TAB PO SCH (20:49)
[2022-06-07] MEDS ORDERED: MELATONIN 3 MG TABLET PO PRN (21:00)
[2022-06-08] MEDS: methylPREDNISolone SOD SUCCI 125 MG/2 ML VIAL IV SCH ×5 (01:12→22:52)
[2022-06-08] MEDS: ONDANSETRON ODT 8 MG TAB.RAPDIS PO PRN ×3 (05:19→22:52)
[2022-06-08] MEDS: PANTOPRAZOLE 40 MG TABLET PO SCH (05:19)
[2022-06-08] MEDS: traMADol 50 MG TAB PO PRN ×3 (05:19→22:14)
[2022-06-08 06:24] LABS: Glucose,Whole Blood 123 mg/dL (70-110)
[2022-06-08] MEDS: INSULIN ASPART (NovoLOG) 100 UNIT/ML VIAL SQ SCH ×4 (06:27→22:07)
[2022-06-08] MEDS: IPRATROPIUM-ALBUTEROL 3 ML NEB INHALATION SCH ×4 (07:07→21:20)
[2022-06-08] MEDS: SYMBICORT 160-4.5 MCG INHALER INHALATION SCH ×2 (07:07→21:20)
[2022-06-08] MEDS: DOXYCYCLINE 100 MG CAP PO SCH ×2 (08:55→22:18)
[2022-06-08] MEDS: lisinopriL 20 MG TAB PO SCH ×2 (08:55→22:15)
[2022-06-08] MEDS: METOPROLOL SUCCINATE (ER) 25 MG TAB.ER.24H PO SCH (08:55)
[2022-06-08] MEDS: ASPIRIN 81 MG PO SCH (08:55)
[2022-06-08] MEDS: amLODIPine 5 MG TAB PO SCH ×2 (08:56→22:15)
[2022-06-08] MEDS: SENNOSIDES-DOCUSATE SODIUM 1 EACH TAB PO SCH (08:56)
[2022-06-08] MEDS: TAMSULOSIN 0.4 MG CAP.ER.24H PO SCH (08:56)
--- NOTE | 2022-06-08 09:48 | P.PN ---
Subjective Progress Note Date: 06/08/22 71-year-old male patient who is very well-known to me. The patient has severe COPD with an FEV1 of 34% of predicted. The patient is also known to have coronary artery disease with mild triple-vessel disease, other comorbidities include abdominal aortic aneurysm, hypertension, hyperlipidemia and history of laryngeal cancer for which the patient is receiving radiation therapy. He has chronic pain also. The patient was in the hospital in May 2022 for an accidental overdose with liquid morphine and he was treated with Narcan and following that the patient came in to the intensive care unit where he was intubated and placed on a mechanical ventilator and subsequently was extubated without any major difficulties and the patient was discharged home. During this current admission, the patient is coming in with worsening shortness of breath. The patient stated that over the past few days, he was having increased dyspnea and was progressively getting worse. He also had increased cough and some sputum production. Denied any fever or chills. He is on 4 L of oxygen at home by nasal cannula. No chest pain. No swelling in lower extremities. During this current admission, the patient was hospitalized for an acute COPD exacerbation. Chest x-ray showed chronic findings. The labs for now she'll a number of missing of 8.7 with a hemoglobin 15.7 and a platelet count of 183. Sodium is at 131 with a potassium level of 3.9, bicarbonate is 44 with a BUN of 10 and a creatinine 0.5. Lactic acid was high as 2.1-0.9 and troponin been negative. For now, the patient has normal cognition profile. He is on doxycycline as an empiric antibiotic coverage. Is on DuoNeb about treatments [id number]. He is also on IV Solu-Medrol 60 mg every 6 hours. Rest of the medications are his typical outpatient medications and all of them are resumed. Noted on outpatient basis, the patient has a maternal Symbicort and Ventolin HFA and albuterol updrafts and oxygen therapy. He is still smoking 1/2 PPD. On 06/08/2022, I'm seeing the patient for a follow-up. He is feeling slightly better. Since last evaluation, the patient has not some progress and he is less short of breath. His pro calcitonin level is at 0.04. His influenza, Covid 19 and RSV screen came back negative. BUN is at 38 with a creatinine of 0.7 and a sodium level is at 132. He remains on bronchodilators and steroids. No shortness of breath, currently on oxygen at 6 L. Objective - Vital Signs Vital signs: Vital Signs Temp 97.6 F 06/08/22 08:00 Pulse 71 06/08/22 08:00 Resp 14 06/08/22 08:00 BP 105/60 06/08/22 08:00 Pulse Ox 93 L 06/08/22 08:00 FiO2 50 06/07/22 15:28 Intake & Output 06/07/22 06/08/22 06/08/22 18:59 06:59 18:59 Output Total 300 Balance -300 Output: Urine 300 Other: Voiding Method Urinal Urinal # Voids 3 # Bowel Movements 0 - Exam General Appearance no diaphoresis, no respiratory distress, speech not interrupted by breaths, no dyspnea, no pallor, not cachectic, well nourished, appears well, the patient is currently on 6 L of oxygen by nasal cannula. He has obvious hoarseness. Head exam was generally normal. There was no scleral icterus or corneal arcus. Mucous membranes were moist. HEENT no pursed lip breathing, no jugular venous distention, no mucous membrane cyanosis, no perioral cyanosis, mallampati classification: class 1 Chest no barrel chest, no retractions, no sternocleidomastoid muscle contractions, no supraclavicular retractions, no intercostal retractions, there is marked. decreased air movement, along with prolonged expiratory wheezing, decreased air movement Heart no right ventricular heave, no distant heart sounds, no s3 gallop GI bowel sounds: hyperactive (borborygmi), bowel sounds: diminished or absent Extremities no cyanosis, no clubbing, no edema Neurologic no decreased mental status, no somnolence, no confusion Examination of the skin revealed no evidence of significant rashes, suspicious appearing nevi or other concerning lesions. - Labs CBC & Chem 7: 06/04/22 13:30 06/07/22 09:45 Labs: Abnormal Lab Results - Last 24 Hours (Table) 06/07/22 06/07/22 06/07/22 Range/Units 09:45 11:03 16:49 Sodium 132 L (137-145) mmol/L Chloride 86 L (98-107) mmol/L Carbon Dioxide 42 H* (22-30) mmol/L BUN 38 H (9-20) mg/dL Glucose 173 H (74-99) mg/dL POC Glucose (mg/dL) 156 H 155 H (70-110) mg/dL 06/07/22 06/08/22 Range/Units 19:46 06:22 Sodium (137-145) mmol/L Chloride (98-107) mmol/L Carbon Dioxide (22-30) mmol/L BUN (9-20) mg/dL Glucose (74-99) mg/dL POC Glucose (mg/dL) 155 H 123 H (70-110) mg/dL Microbiology - Last 24 Hours (Table) 06/07/22 10:30 Gram Stain - Preliminary Sputum Sputum Culture - Preliminary Assessment and Plan Plan: Acute COPD exacerbation, likely due to his ongoing smoking habits. A superinfection with a virus cannot be completely ruled out and the viral screen needs to be completed. Accordingly, the patient is going to be screened for influenza, RSV and Covid 19. Noted the patient has severe oxygen dependent COPD with an FEV1 of 34% of predicted. Chronic hypoxic respiratory failure Chronic hypercapnic respiratory failure secondary to COPD Laryngeal cancer completed a total of 21 sessions of radiation therapy Recent hospitalization for accidental opiate overdose requiring intubation and mechanical ventilation Abdominal aortic aneurysm History of BPH Hyperlipidemia Coronary artery disease with nonocclusive multivessel CAD Heartburn Hoarseness secondary to above Plan Clinically improving Should be able to cut down the patient a prednisone burst taper either today or tomorrow Wean FiO2 down to 5 L The pro calcitonin level was low and the viral screen was negative Continue empiric antibiotic coverage with doxycycline Provide patient incentive spirometer Will need further adjustment on his inhalers on outpatient basis. Recommend switching this patient from Symbicort to Trelegy Ellipta. Continue IV Solu-Medrol for another 24 hours and possibly discharge the patient home tomorrow on a prednisone burst taper. Meanwhile, I dropped FiO2 down to 5 L and his baseline O2 is at 4 L.
[2022-06-08 11:45] LABS: Glucose,Whole Blood 171 mg/dL (70-110)
--- NOTE | 2022-06-08 12:46 | P.PN ---
Subjective Progress Note Date: 06/08/22 Principal diagnosis: COPD exacerbation The patient is a 71-year-old male the past medical history significant for laryngeal cancer with radiation treatment, severe COPD FEV1 34% predicted, 4 L home O2, hyperlipidemia, hypertension, and AAA with repair. He presented to the emergency department on 06/04/22 with difficulty in breathing for the last 4 days that has been getting progressively worse. Patient denied any fever chill. Patient denied any chest pain, abdominal pain, nausea, vomiting, or diarrhea. Pulmonary is following. Has been treated with bronchodilators, steroids, and prophylactic antibiotics. 06/07 The patient is sitting up in his bed and eating lunch. Information regarding palliative care philosophies and services provided. Education provided regarding his severe COPD with a at the V1 of 34% predicted. The patient understands that there is no cure for his COPD and treatment options are limited. He also understands that there will come a point in time when he does not respond to the treatments as well. He has had multiple conversations with his regarding his end-of-life wishes. His is also chronically ill with CHF and CKD. The patient states that he and his already have their mohamud written. At this point the patient wishes to come back to the hospital for treatment if he had another COPD exacerbation. His goal is for prolonged survival. CODE STATUS discussed in detail. The patient wishes to remain a full code. That is with the understanding that if he were ever placed on a mechanical ventilator he may not ever come off of it. He states that his family understands that he is okay being on a ventilator for a short period of time. He states his family knows his wishes. The patient is interested in receiving palliative care services at home to prevent frequent readmissions to the hospital Objective - Vital Signs Vital signs: Vital Signs Temp 97.6 F 06/08/22 08:00 Pulse 80 06/08/22 11:33 Resp 14 06/08/22 08:00 BP 105/60 06/08/22 08:00 Pulse Ox 95 06/08/22 11:23 FiO2 50 06/07/22 15:28 Intake & Output 06/07/22 06/08/22 06/08/22 18:59 06:59 18:59 Output Total 300 Balance -300 Output: Urine 300 Other: Voiding Method Urinal Urinal # Voids 3 # Bowel Movements 0 - Exam General: Well developed, well nourished. No acute distress. Chronically ill appearing HEENT: Head is atraumatic, normocephalic. Sclera are clear. CV: Heart regular in rate and rhythm positive S1 and S2. Lungs: Expiratory wheezes, respirations even and nonlabored, nonproductive cough. On 5 L nasal cannula Abdomen/GI: Soft.No guarding, rigidity, or abdominal tenderness. : No suprapubic tenderness. Musculoskeletal/ Extremities: ROPER, + generalized weakness Skin: Warm and dry Neurologic: Awake, alert and oriented times 3. CN II-XII grossly intact. No focal deficits. Psychiatric: Appropriate mood and affect. - Labs CBC & Chem 7: 06/04/22 13:30 06/07/22 09:45 Labs: Abnormal Lab Results - Last 24 Hours (Table) 06/07/22 06/07/22 06/08/22 Range/Units 16:49 19:46 06:22 POC Glucose (mg/dL) 155 H 155 H 123 H (70-110) mg/dL 06/08/22 Range/Units 11:43 POC Glucose (mg/dL) 171 H (70-110) mg/dL Microbiology - Last 24 Hours (Table) 06/07/22 10:30 Gram Stain - Preliminary Sputum Sputum Culture - Preliminary Assessment and Plan Assessment: Symptoms * Pain -12/10 headache, Continue Tramadol * Fatigue - Yes, + generalized weakness and fatigue, continue PT/OT * SOB - Yes, Continue Solumedrol, Duoneb, Albuterol, Symbicort, and Vibramycin * Insomnia - Yes, continue Melatonin * N/V - Occasional, continue Zofran * Anxiety - No * Depression - Occasional * Confusion - No * Agitation - No * Hallucinations - No * Appetite/weight loss - + recent appetite loss, no weight loss. Continue regular diet and ensure TIDWM * Dysphagia - patient has some discomfort and difficulty swallowing secondary to radiation, no S/S of aspiration * Constipation - LBM prior to admission, continue Senokot S * Incontinence - no, voids per urinal * Itch - no * Cough - no Plan: Summary/Goals - The patient states he is feeling better today. His O2 is down to 5 L nasal cannula now and he states he is less short of breath. He states he might be able to go home tomorrow. He reports still having intermittent headaches for which she takes tramadol at home. These headaches began once he started radiation. He states the tramadol helps for a couple hours. The patient states he would like to continue with begin home health care. He also would like to see palliative care at home. His case planner is aware and has already placed a referral. Recommendations - home with palliative care services when medically stable Advanced Directives - none on file Code Status - full code Thank you for this consultation Nikki Brennan [facility] Palliative Care [facility] [id number] Email: [email or web address] Time with Patient: Less than 30
--- NOTE | 2022-06-08 13:35 | P.PN ---
Subjective Progress Note Date: 06/08/22 This is a 71-year-old gentleman with past medical history of recently diagnosed laryngeal cancer -receiving radiation treatments at [facility], severe COPD, nicotine dependence, CAD, hypertension and multiple other medical issues, admitted with acute COPD exacerbation, chronic hypoxic and hypercapnic respiratory failure, recently hospitalized for accidental opiate overdose requiring intubation/mechanical ventilation and multiple other medical issues. Maintained on nebulized bronchodilators, steroids, Symbicort, doxycycline. BiPAP throughout the night. Afebrile. CODE STATUS addressed, wishes to remain a full code. 06/07/2022 Continues on nebulized bronchodilators, steroids and empiric antibiotics of doxycycline.BMP pending. Maintaining O2 sats in the 90s on 8 L high flow nasal cannula. Sodium 132, renal function worsening, BUN 38, creatinine 0.7 to. Blood sugars controlled. 06/08/22 maintained on doxycycline, nebulized bronchodilators , IV steroids, oxygen titrated down, maintaining O2 sats of 97% on 5 L high flow nasal cannula. Influenza, COVID-19, RSV screening negative. Denies chest pain, palpitations or shortness of breath. Labs pending. Objective - Vital Signs Vital signs: Vital Signs Temp 97.5 F L 06/08/22 12:00 Pulse 87 06/08/22 12:00 Resp 18 06/08/22 12:00 BP 106/65 06/08/22 12:00 Pulse Ox 97 06/08/22 12:00 FiO2 50 06/07/22 15:28 Intake & Output 06/07/22 06/08/22 06/08/22 18:59 06:59 18:59 Output Total 300 Balance -300 Output: Urine 300 Other: Voiding Method Urinal Urinal # Voids 3 # Bowel Movements 0 - Exam - Exam PHYSICAL EXAM: VITAL SIGNS: As above GENERAL: Sitting up in bed, alert and oriented 3 hoarse,no acute distress HEENT: Atraumatic, normocephalic ,Conjunctivae normal. Oral mucosa moist. NECK: Supple, No JVD. CARDIOVASCULAR: S1, S2 regular. No murmur RESPIRATION: Breath sounds diminished in the bases. Scattered rhonchi, expiratory wheezing. ABDOMEN: Soft, nontender .no masses palpable.+Bowel sounds . LEGS: No edema. no swelling NERVOUS SYSTEM: Cranial nerves II through XII grossly intact. Skin: Warm and dry, no rash - Labs CBC & Chem 7: 06/04/22 13:30 06/07/22 09:45 Labs: Abnormal Lab Results - Last 24 Hours (Table) 06/07/22 06/07/22 06/08/22 Range/Units 16:49 19:46 06:22 POC Glucose (mg/dL) 155 H 155 H 123 H (70-110) mg/dL 06/08/22 Range/Units 11:43 POC Glucose (mg/dL) 171 H (70-110) mg/dL Microbiology - Last 24 Hours (Table) 06/07/22 10:30 Gram Stain - Preliminary Sputum Sputum Culture - Preliminary Assessment and Plan Assessment: Acute on Chronic hypoxic, hypercapnic respiratory failure secondary to COPD exacerbation in a patient with history of laryngeal carcinoma. Recently hospitalized for accidental opiate overdose requiring intubation /mechanical ventilation. Lactic acidosis, resolved Chronic pain syndrome CAD Hypertension Hyperlipidemia Ongoing nicotine dependence Autoimmune disease, follows with both Dr. Goins and Anil Lara staff nuclear weapons officer OP History of Abdominal aortic aneurysm, outpatient monitoring Plan:Continue on current medication regime ,monitoring and symptomatic treatment.Labs pending. Empiric antibiotics, aggressive pulmonary toileting with nebulized bronchodilators, IV steroids . Smoking cessation reinforced. Evaluated by pulmonary with recommendations noted and appreciated. Discharge planning in progress for tomorrow pending pulmonary final DC recommendations and clearance. The impression and plan of care has been dictated as directed. : I performed a history and examination of this patient, discussed the same with the dictator. I agree with the dictator's note ,documented as a scribe. Any a dditional findings or plans will be noted.
[2022-06-08 14:43] LABS: African American GFR (CKD) >90 (>60 ml/min/1.73 sqM); Blood Urea Nitrogen 45 mg/dL (9-20); Calcium 8.3 mg/dL (8.4-10.2); Chloride 86 mmol/L (98-107); Glucose 167 mg/dL (74-99); Non-African American GFR(CKD) >90 (>60 ml/min/1.73 sqM); Potassium 4.2 mmol/L (3.5-5.1); Sodium 129 mmol/L (137-145)
[2022-06-08 14:50] LABS: Anion Gap 1 mmol/L
[2022-06-08 14:55] LABS: Carbon Dioxide 42 mmol/L (22-30)
[2022-06-08 16:35] LABS: Glucose,Whole Blood 107 mg/dL (70-110)
[2022-06-08 19:45] LABS: Glucose,Whole Blood 164 mg/dL (70-110)
[2022-06-08] MEDS: MAGNESIUM HYDROXIDE 2,400 MG/10 ML CUP PO PRN (22:14)
[2022-06-08] MEDS: ATORVASTATIN 80 MG TAB PO SCH (22:15)
[2022-06-08] MEDS: MELATONIN 3 MG TABLET PO SCH (22:18)
[2022-06-09] MEDS: traMADol 50 MG TAB PO PRN ×4 (02:20→23:33)
[2022-06-09] MEDS: DOCUSATE 283 MG/5 ML ENEMA RECTAL PRN ×2 (02:20→23:33)
[2022-06-09] MEDS ORDERED: ONDANSETRON 4 MG/2 ML VIAL IVP ONE (04:28)
[2022-06-09 06:04] LABS: Glucose,Whole Blood 117 mg/dL (70-110)
[2022-06-09] MEDS: INSULIN ASPART (NovoLOG) 100 UNIT/ML VIAL SQ SCH ×4 (06:45→20:50)
[2022-06-09] MEDS: methylPREDNISolone SOD SUCCI 125 MG/2 ML VIAL IV SCH ×3 (06:51→17:14)
[2022-06-09] MEDS: PANTOPRAZOLE 40 MG TABLET PO SCH (06:51)
[2022-06-09] MEDS: SYMBICORT 160-4.5 MCG INHALER INHALATION SCH ×2 (07:52→19:14)
[2022-06-09] MEDS: IPRATROPIUM-ALBUTEROL 3 ML NEB INHALATION SCH ×4 (07:52→19:14)
[2022-06-09 08:23] LABS: African American GFR (CKD) >90 (>60 ml/min/1.73 sqM); Blood Urea Nitrogen 42 mg/dL (9-20); Calcium 8.2 mg/dL (8.4-10.2); Chloride 86 mmol/L (98-107); Glucose 113 mg/dL (74-99); Non-African American GFR(CKD) >90 (>60 ml/min/1.73 sqM); Potassium 4.2 mmol/L (3.5-5.1); Sodium 129 mmol/L (137-145)
[2022-06-09 08:30] LABS: Anion Gap 1 mmol/L
[2022-06-09 08:43] LABS: Carbon Dioxide 42 mmol/L (22-30)
[2022-06-09] MEDS: DOXYCYCLINE 100 MG CAP PO SCH (10:54)
[2022-06-09] MEDS: SENNOSIDES-DOCUSATE SODIUM 1 EACH TAB PO SCH (10:54)
[2022-06-09] MEDS: amLODIPine 5 MG TAB PO SCH ×2 (10:55→20:53)
[2022-06-09] MEDS: METOPROLOL SUCCINATE (ER) 25 MG TAB.ER.24H PO SCH (10:55)
[2022-06-09] MEDS: ASPIRIN 81 MG PO SCH (10:55)
[2022-06-09] MEDS: lisinopriL 20 MG TAB PO SCH ×2 (10:55→20:54)
[2022-06-09] MEDS: TAMSULOSIN 0.4 MG CAP.ER.24H PO SCH (10:55)
[2022-06-09 11:39] LABS: Glucose,Whole Blood 111 mg/dL (70-110)
--- NOTE | 2022-06-09 11:52 | P.PN ---
Subjective Progress Note Date: 06/09/22 71-year-old male patient who is very well-known to me. The patient has severe COPD with an FEV1 of 34% of predicted. The patient is also known to have coronary artery disease with mild triple-vessel disease, other comorbidities include abdominal aortic aneurysm, hypertension, hyperlipidemia and history of laryngeal cancer for which the patient is receiving radiation therapy. He has chronic pain also. The patient was in the hospital in May 2022 for an accidental overdose with liquid morphine and he was treated with Narcan and following that the patient came in to the intensive care unit where he was intubated and placed on a mechanical ventilator and subsequently was extubated without any major difficulties and the patient was discharged home. During this current admission, the patient is coming in with worsening shortness of breath. The patient stated that over the past few days, he was having increased dyspnea and was progressively getting worse. He also had increased cough and some sputum production. Denied any fever or chills. He is on 4 L of oxygen at home by nasal cannula. No chest pain. No swelling in lower extremities. During this current admission, the patient was hospitalized for an acute COPD exacerbation. Chest x-ray showed chronic findings. The labs for now she'll a number of missing of 8.7 with a hemoglobin 15.7 and a platelet count of 183. Sodium is at 131 with a potassium level of 3.9, bicarbonate is 44 with a BUN of 10 and a creatinine 0.5. Lactic acid was high as 2.1-0.9 and troponin been negative. For now, the patient has normal cognition profile. He is on doxycycline as an empiric antibiotic coverage. Is on DuoNeb about treatments [id number]. He is also on IV Solu-Medrol 60 mg every 6 hours. Rest of the medications are his typical outpatient medications and all of them are resumed. Noted on outpatient basis, the patient has a maternal Symbicort and Ventolin HFA and albuterol updrafts and oxygen therapy. He is still smoking 1/2 PPD. On 06/08/2022, I'm seeing the patient for a follow-up. He is feeling slightly better. Since last evaluation, the patient has not some progress and he is less short of breath. His pro calcitonin level is at 0.04. His influenza, Covid 19 and RSV screen came back negative. BUN is at 38 with a creatinine of 0.7 and a sodium level is at 132. He remains on bronchodilators and steroids. No shortness of breath, currently on oxygen at 6 L. On 06/09/2022, the patient is still in the hospital. Since yesterday, he has noted some urinary retention. He is getting frequent bladder scan of the last scan showed a total of 350 mL of urine and based on that no Busch cath was inserted and the patient is being monitored very closely. At the same time, he has not had a bowel movement for almost a week. He was given an enema yesterday. His overall respiratory status is stable. Remains on bronchodilators. Remains on steroids. His discharge was held yesterday. Objective - Vital Signs Vital signs: Vital Signs Temp 97.6 F 06/09/22 08:00 Pulse 72 06/09/22 11:29 Resp 18 06/09/22 08:00 BP 97/52 06/09/22 08:00 Pulse Ox 92 L 06/09/22 08:00 FiO2 50 06/07/22 15:28 Intake & Output 06/08/22 06/09/22 06/09/22 18:59 06:59 18:59 Intake Total 240 Output Total 650 500 Balance -650 -500 240 Weight 73 kg Intake: Oral 240 Output: Urine 650 500 Straight 650 500 Other: Voiding Method Urinal Bedside Commode Bedside Commode Urinal Urinal # Voids 0 0 # Bowel Movements 0 - Exam General Appearance no diaphoresis, no respiratory distress, speech not interrupted by breaths, no dyspnea, no pallor, not cachectic, well nourished, appears well, the patient is currently on 6 L of oxygen by nasal cannula. He has obvious hoarseness. Head exam was generally normal. There was no scleral icterus or corneal arcus. Mucous membranes were moist. HEENT no pursed lip breathing, no jugular venous distention, no mucous membrane cyanosis, no perioral cyanosis, mallampati classification: class 1 Chest no barrel chest, no retractions, no sternocleidomastoid muscle contractions, no supraclavicular retractions, no intercostal retractions, there is marked. decreased air movement, along with prolonged expiratory wheezing, decreased air movement Heart no right ventricular heave, no distant heart sounds, no s3 gallop GI bowel sounds: hyperactive (borborygmi), bowel sounds: diminished or absent Extremities no cyanosis, no clubbing, no edema Neurologic no decreased mental status, no somnolence, no confusion Examination of the skin revealed no evidence of significant rashes, suspicious appearing nevi or other concerning lesions. - Labs CBC & Chem 7: 06/04/22 13:30 06/09/22 07:45 Labs: Abnormal Lab Results - Last 24 Hours (Table) 06/08/22 06/08/22 06/08/22 Range/Units 11:43 13:54 19:44 Sodium 129 L (137-145) mmol/L Chloride 86 L (98-107) mmol/L Carbon Dioxide 42 H* (22-30) mmol/L BUN 45 H (9-20) mg/dL Glucose 167 H (74-99) mg/dL POC Glucose (mg/dL) 171 H 164 H (70-110) mg/dL Calcium 8.3 L (8.4-10.2) mg/dL 06/09/22 06/09/22 06/09/22 Range/Units 06:02 07:45 11:37 Sodium 129 L (137-145) mmol/L Chloride 86 L (98-107) mmol/L Carbon Dioxide 42 H* (22-30) mmol/L BUN 42 H (9-20) mg/dL Glucose 113 H (74-99) mg/dL POC Glucose (mg/dL) 117 H 111 H (70-110) mg/dL Calcium 8.2 L (8.4-10.2) mg/dL Microbiology - Last 24 Hours (Table) 06/07/22 10:30 Gram Stain - Preliminary Sputum Sputum Culture - Preliminary Assessment and Plan Plan: Acute COPD exacerbation, likely due to his ongoing smoking habits. A superinfection with a virus cannot be completely ruled out and the viral screen needs to be completed. Accordingly, the patient is going to be screened for influenza, RSV and Covid 19. Noted the patient has severe oxygen dependent COPD with an FEV1 of 34% of predicted. Chronic hypoxic respiratory failure Chronic hypercapnic respiratory failure secondary to COPD Laryngeal cancer completed a total of 21 sessions of radiation therapy Recent hospitalization for accidental opiate overdose requiring intubation and mechanical ventilation Abdominal aortic aneurysm History of BPH Hyperlipidemia Coronary artery disease with nonocclusive multivessel CAD Heartburn Hoarseness secondary to above Chronic constipation post enema and a component of urinary retention Plan Patient was offered enema, laxative including milk of magnesia and Senokot Frequent bladder scans Clinically improving Should be able to cut down the patient a prednisone burst taper either today or tomorrow Wean FiO2 down to 5 L The pro calcitonin level was low and the viral screen was negative Continue empiric antibiotic coverage with doxycycline Provide patient incentive spirometer Will need further adjustment on his inhalers on outpatient basis. Recommend switching this patient from Symbicort to Trelegy Ellipta. Continue IV Solu-Medrol FiO2 down to 5 L and his baseline O2 is at 4 L.
[2022-06-09] MEDS: ONDANSETRON ODT 8 MG TAB.RAPDIS PO PRN ×2 (13:11→23:33)
[2022-06-09 16:37] LABS: Glucose,Whole Blood 148 mg/dL (70-110)
[2022-06-09] MEDS: MAGNESIUM HYDROXIDE 2,400 MG/10 ML CUP PO PRN (17:14)
--- NOTE | 2022-06-09 17:15 | P.PN ---
Subjective Progress Note Date: 06/09/22 71-year-old gentleman with past medical history of recently diagnosed laryngeal cancer -receiving radiation treatments at [facility], severe COPD, nicotine dependence, CAD, hypertension and multiple other medical issues, admitted with acute COPD exacerbation, chronic hypoxic and hypercapnic respiratory failure, recently hospitalized for accidental opiate overdose requiring intubation/mechanical ventilation and multiple other medical issues. Maintained on nebulized bronchodilators, steroids, Symbicort, doxycycline. BiPAP throughout the night. Afebrile. CODE STATUS addressed, wishes to remain a full code. Objective - Vital Signs Vital signs: Vital Signs Temp 98.1 F 06/09/22 12:27 Pulse 79 06/09/22 12:27 Resp 18 06/09/22 12:27 BP 102/62 06/09/22 12:27 Pulse Ox 92 L 06/09/22 12:27 FiO2 50 06/07/22 15:28 Intake & Output 06/08/22 06/09/22 06/09/22 18:59 06:59 18:59 Intake Total 240 Output Total 650 500 Balance -650 -500 240 Weight 73 kg Intake: Oral 240 Output: Urine 650 500 Straight 650 500 Other: Voiding Method Urinal Bedside Commode Bedside Commode Urinal Urinal # Voids 0 0 # Bowel Movements 0 - Exam GENERAL: Sitting up in bed, alert and oriented 3 hoarse,no acute distress HEENT: Atraumatic, normocephalic ,Conjunctivae normal. Oral mucosa moist. NECK: Supple, No JVD. CARDIOVASCULAR: S1, S2 regular. No murmur RESPIRATION: Breath sounds diminished in the bases. Scattered rhonchi, expiratory wheezing. ABDOMEN: Soft, nontender .no masses palpable.+Bowel sounds . LEGS: No edema. no swelling NERVOUS SYSTEM: Cranial nerves II through XII grossly intact. Skin: Warm and dry, no rash - Labs CBC & Chem 7: 06/04/22 13:30 06/09/22 07:45 Labs: Abnormal Lab Results - Last 24 Hours (Table) 06/08/22 06/08/22 06/09/22 Range/Units 13:54 19:44 06:02 Sodium 129 L (137-145) mmol/L Chloride 86 L (98-107) mmol/L Carbon Dioxide 42 H* (22-30) mmol/L BUN 45 H (9-20) mg/dL Glucose 167 H (74-99) mg/dL POC Glucose (mg/dL) 164 H 117 H (70-110) mg/dL Calcium 8.3 L (8.4-10.2) mg/dL 06/09/22 06/09/22 Range/Units 07:45 11:37 Sodium 129 L (137-145) mmol/L Chloride 86 L (98-107) mmol/L Carbon Dioxide 42 H* (22-30) mmol/L BUN 42 H (9-20) mg/dL Glucose 113 H (74-99) mg/dL POC Glucose (mg/dL) 111 H (70-110) mg/dL Calcium 8.2 L (8.4-10.2) mg/dL Microbiology - Last 24 Hours (Table) 06/07/22 10:30 Gram Stain - Preliminary Sputum Sputum Culture - Preliminary Assessment and Plan Assessment: Acute on Chronic hypoxic, hypercapnic respiratory failure secondary to COPD exacerbation in a patient with history of laryngeal carcinoma. Recently hospitalized for accidental opiate overdose requiring intubation/mechanical ventilation. Lactic acidosis, resolved Chronic pain syndrome CAD Hypertension Hyperlipidemia Ongoing nicotine dependence Autoimmune disease, follows with both Dr. Goins and Anil Lara boarding house cook OP History of Abdominal aortic aneurysm, outpatient monitoring Plan:Continue on current medication regime ,monitoring and symptomatic treatment.Labs pending. Empiric antibiotics, aggressive pulmonary toileting with nebulized bronchodilators, IV steroids . Smoking cessation reinforced. Evaluated by pulmonary with recommendations noted and appreciated. Discharge planning in progress for tomorrow pending pulmonary final DC recommendations and clearance.
[2022-06-09 20:29] LABS: Glucose,Whole Blood 149 mg/dL (70-110)
[2022-06-09] MEDS: MELATONIN 3 MG TABLET PO SCH (20:53)
[2022-06-09] MEDS: ATORVASTATIN 80 MG TAB PO SCH (20:54)
[2022-06-10] MEDS: methylPREDNISolone SOD SUCCI 125 MG/2 ML VIAL IV SCH ×5 (00:16→23:44)
[2022-06-10 06:28] LABS: Glucose,Whole Blood 115 mg/dL (70-110)
[2022-06-10] MEDS: INSULIN ASPART (NovoLOG) 100 UNIT/ML VIAL SQ SCH ×4 (06:49→21:20)
[2022-06-10] MEDS: PANTOPRAZOLE 40 MG TABLET PO SCH (06:53)
[2022-06-10] MEDS: IPRATROPIUM-ALBUTEROL 3 ML NEB INHALATION SCH ×4 (08:09→20:33)
[2022-06-10] MEDS: SYMBICORT 160-4.5 MCG INHALER INHALATION SCH ×2 (08:09→20:33)
[2022-06-10] MEDS: METOPROLOL SUCCINATE (ER) 25 MG TAB.ER.24H PO SCH (08:48)
[2022-06-10] MEDS: lisinopriL 20 MG TAB PO SCH ×2 (08:48→21:29)
[2022-06-10] MEDS: ASPIRIN 81 MG PO SCH (08:48)
[2022-06-10] MEDS: amLODIPine 5 MG TAB PO SCH ×2 (08:48→21:35)
[2022-06-10] MEDS: SENNOSIDES-DOCUSATE SODIUM 1 EACH TAB PO SCH (08:49)
[2022-06-10] MEDS: TAMSULOSIN 0.4 MG CAP.ER.24H PO SCH (08:49)
[2022-06-10] MEDS: traMADol 50 MG TAB PO PRN ×3 (08:49→21:34)
--- NOTE | 2022-06-10 09:47 | P.PN ---
Subjective Progress Note Date: 06/10/22 71-year-old male patient who is very well-known to me. The patient has severe COPD with an FEV1 of 34% of predicted. The patient is also known to have coronary artery disease with mild triple-vessel disease, other comorbidities include abdominal aortic aneurysm, hypertension, hyperlipidemia and history of laryngeal cancer for which the patient is receiving radiation therapy. He has chronic pain also. The patient was in the hospital in May 2022 for an accidental overdose with liquid morphine and he was treated with Narcan and following that the patient came in to the intensive care unit where he was intubated and placed on a mechanical ventilator and subsequently was extubated without any major difficulties and the patient was discharged home. During this current admission, the patient is coming in with worsening shortness of breath. The patient stated that over the past few days, he was having increased dyspnea and was progressively getting worse. He also had increased cough and some sputum production. Denied any fever or chills. He is on 4 L of oxygen at home by nasal cannula. No chest pain. No swelling in lower extremities. During this current admission, the patient was hospitalized for an acute COPD exacerbation. Chest x-ray showed chronic findings. The labs for now she'll a number of missing of 8.7 with a hemoglobin 15.7 and a platelet count of 183. Sodium is at 131 with a potassium level of 3.9, bicarbonate is 44 with a BUN of 10 and a creatinine 0.5. Lactic acid was high as 2.1-0.9 and troponin been negative. For now, the patient has normal cognition profile. He is on doxycycline as an empiric antibiotic coverage. Is on DuoNeb about treatments [id number]. He is also on IV Solu-Medrol 60 mg every 6 hours. Rest of the medications are his typical outpatient medications and all of them are resumed. Noted on outpatient basis, the patient has a maternal Symbicort and Ventolin HFA and albuterol updrafts and oxygen therapy. He is still smoking 1/2 PPD. On 06/08/2022, I'm seeing the patient for a follow-up. He is feeling slightly better. Since last evaluation, the patient has not some progress and he is less short of breath. His pro calcitonin level is at 0.04. His influenza, Covid 19 and RSV screen came back negative. BUN is at 38 with a creatinine of 0.7 and a sodium level is at 132. He remains on bronchodilators and steroids. No shortness of breath, currently on oxygen at 6 L. On 06/09/2022, the patient is still in the hospital. Since yesterday, he has noted some urinary retention. He is getting frequent bladder scan of the last scan showed a total of 350 mL of urine and based on that no Busch cath was inserted and the patient is being monitored very closely. At the same time, he has not had a bowel movement for almost a week. He was given an enema yesterday. His overall respiratory status is stable. Remains on bronchodilators. Remains on steroids. His discharge was held yesterday. 06/10/2022, the patient is still in the hospital as his recovering from COPD exacerbation. He had issues with constipation and urinary retention. He was having high urinary residuals and the patient was given a Busch catheter yesterday. He was also given laxatives and he started producing some stool. Otherwise, his overall respiratory status is stable. Remains on IV Solu-Medrol. Remains on Symbicort. Remains on DuoNeb updrafts [id number]. 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 No respiratory difficulties addressed. Currently is on oxygen 5 L nasal cannula. Objective - Vital Signs Vital signs: Vital Signs Temp 97.5 F L 06/10/22 08:36 Pulse 70 06/10/22 09:32 Resp 19 06/10/22 09:32 BP 91/54 06/10/22 08:36 Pulse Ox 91 L 06/10/22 08:36 FiO2 50 06/07/22 15:28 Intake & Output 06/09/22 06/10/22 06/10/22 18:59 06:59 18:59 Intake Total 956 Output Total 850 Balance 956 -850 Weight 73.5 kg Intake: Oral 956 Output: Urine 850 Other: Voiding Method Bedside Commode Indwelling Catheter Indwelling Catheter Urinal - Exam General Appearance no diaphoresis, no respiratory distress, speech not interrupted by breaths, no dyspnea, no pallor, not cachectic, well nourished, appears well, the patient is currently on 6 L of oxygen by nasal cannula. He has obvious hoarseness. Head exam was generally normal. There was no scleral icterus or corneal arcus. Mucous membranes were moist. HEENT no pursed lip breathing, no jugular venous distention, no mucous membrane cyanosis, no perioral cyanosis, mallampati classification: class 1 Chest no barrel chest, no retractions, no sternocleidomastoid muscle contractions, no supraclavicular retractions, no intercostal retractions, there is marked. decreased air movement, along with prolonged expiratory wheezing, decreased air movement Heart no right ventricular heave, no distant heart sounds, no s3 gallop GI bowel sounds: hyperactive (borborygmi), bowel sounds: diminished or absent Extremities no cyanosis, no clubbing, no edema Neurologic no decreased mental status, no somnolence, no confusion Examination of the skin revealed no evidence of significant rashes, suspicious appearing nevi or other concerning lesions. - Labs CBC & Chem 7: 06/04/22 13:30 06/09/22 07:45 Labs: Abnormal Lab Results - Last 24 Hours (Table) 06/09/22 06/09/22 06/09/22 Range/Units 11:37 16:35 20:25 POC Glucose (mg/dL) 111 H 148 H 149 H (70-110) mg/dL 06/10/22 Range/Units 06:26 POC Glucose (mg/dL) 115 H (70-110) mg/dL Assessment and Plan Plan: Acute COPD exacerbation, likely due to his ongoing smoking habits. A superinfection with a virus cannot be completely ruled out and the viral screen needs to be completed. Accordingly, the patient is going to be screened for influenza, RSV and Covid 19. Noted the patient has severe oxygen dependent COPD with an FEV1 of 34% of predicted. Chronic hypoxic respiratory failure Chronic hypercapnic respiratory failure secondary to COPD Laryngeal cancer completed a total of 21 sessions of radiation therapy Recent hospitalization for accidental opiate overdose requiring intubation and mechanical ventilation Abdominal aortic aneurysm History of BPH Hyperlipidemia Coronary artery disease with nonocclusive multivessel CAD Heartburn Hoarseness secondary to above Chronic constipation post enema and a component of urinary retention, Busch catheter was inserted. Constipation is gradually improving Plan Patient was offered enema, laxative including milk of magnesia and Senokot, the patient's constipation is improving Busch catheter was inserted Clinically improving Should be able to cut down the patient a prednisone burst taper Wean FiO2 down to 5 L The pro calcitonin level was low and the viral screen was negative Continue empiric antibiotic coverage with doxycycline Provide patient incentive spirometer Will need further adjustment on his inhalers on outpatient basis. Recommend switching this patient from Symbicort to Trelegy Ellipta. Continue IV Solu-Medrol FiO2 down to 5 L and his baseline O2 is at 4 L.
[2022-06-10] MEDS: ONDANSETRON ODT 8 MG TAB.RAPDIS PO PRN (10:10)
[2022-06-10 11:48] LABS: Glucose,Whole Blood 120 mg/dL (70-110)
[2022-06-10] MEDS: LACTULOSE 20 GM/30 ML CUP PO SCH ×2 (11:53→21:34)
[2022-06-10] MEDS: MAGNESIUM HYDROXIDE 2,400 MG/10 ML CUP PO PRN (15:17)
--- NOTE | 2022-06-10 15:27 | P.PN ---
Subjective Progress Note Date: 06/10/22 Principal diagnosis: Acute exacerbation COPD Chronic hypercapnic respiratory failure Constipation with large stone burden Laryngeal cancer; status post radiation therapy 71-year-old gentleman with past medical history of recently diagnosed laryngeal cancer -receiving radiation treatments at [facility], severe COPD, nicotine dependence, CAD, hypertension and multiple other medical issues, admitted with acute COPD exacerbation, chronic hypoxic and hypercapnic respiratory failure, recently hospitalized for accidental opiate overdose re quiring intubation/mechanical ventilation and multiple other medical issues. Maintained on nebulized bronchodilators, steroids, Symbicort, doxycycline. BiPAP throughout the night. Afebrile. CODE STATUS addressed, wishes to remain a full code. 24-hour Holter interval change 06/10/2022 the patient is seen and evaluated in room at bedside; remains in the hospital as his recovering from COPD exacerbation. He had issues with constipation and urinary retention; patient was given a Busch catheter yesterday. He was also given laxatives and he started producing some stool. Otherwise, his overall respiratory status is stable. Remains on IV Solu-Medrol. Remains on Symbicort. Remains on DuoNeb updrafts [id number]. 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 No respiratory difficulties addressed. Currently is on oxygen 5 L nasal cannula. Patient has been placed on lactulose 20 g by mouth twice a day -- Patient was offered enema, laxative including milk of magnesia and Senokot, the patient's constipation is improving Objective - Vital Signs Vital signs: Vital Signs Temp 97.5 F L 06/10/22 08:36 Pulse 70 06/10/22 09:32 Resp 19 06/10/22 09:32 BP 91/54 06/10/22 08:36 Pulse Ox 91 L 06/10/22 08:36 FiO2 50 06/07/22 15:28 Intake & Output 06/09/22 06/10/22 06/10/22 18:59 06:59 18:59 Intake Total 956 990 Output Total 850 Balance 956 -850 990 Weight 73.5 kg Intake: Oral 956 990 Output: Urine 850 Other: Voiding Method Bedside Commode Indwelling Catheter Indwelling Catheter Urinal - Exam GENERAL: Sitting up in bed, alert and oriented 3 hoarse,no acute distress HEENT: Atraumatic, normocephalic ,Conjunctivae normal. Oral mucosa moist. NECK: Supple, No JVD. CARDIOVASCULAR: S1, S2 regular. No murmur RESPIRATION: Breath sounds diminished in the bases. Scattered rhonchi, expiratory wheezing. ABDOMEN: Soft, nontender .no masses palpable.+Bowel sounds . LEGS: No edema. no swelling NERVOUS SYSTEM: Cranial nerves II through XII grossly intact. Skin: Warm and dry, no rash - Labs CBC & Chem 7: 06/04/22 13:30 06/09/22 07:45 Labs: Abnormal Lab Results - Last 24 Hours (Table) 06/09/22 06/09/22 06/09/22 Range/Units 11:37 16:35 20:25 POC Glucose (mg/dL) 111 H 148 H 149 H (70-110) mg/dL 06/10/22 Range/Units 06:26 POC Glucose (mg/dL) 115 H (70-110) mg/dL Assessment and Plan Assessment: Acute on Chronic hypoxic, hypercapnic respiratory failure secondary to COPD exacerbation in a patient with history of laryngeal carcinoma. Recently hospitalized for accidental opiate overdose requiring intu bation/mechanical ventilation. Lactic acidosis, resolved Chronic pain syndrome CAD Hypertension Hyperlipidemia Ongoing nicotine dependence Autoimmune disease, follows with both Dr. Goins and Anil Lara test borer OP History of Abdominal aortic aneurysm, outpatient monitoring Plan:Continue on current medication regime ,monitoring and symptomatic treatment.Labs pending. Empiric antibiotics, aggressive pulmonary toileting with nebulized bronchodilators, IV steroids . Smoking cessation reinforced. Evaluated by pulmonary with recommendations noted and appreciated. Discharge planning in progress for tomorrow pending pulmonary final DC recommendations and clearance.
[2022-06-10 16:26] LABS: Glucose,Whole Blood 118 mg/dL (70-110)
[2022-06-10 20:02] LABS: Glucose,Whole Blood 149 mg/dL (70-110)
[2022-06-10] MEDS: ATORVASTATIN 80 MG TAB PO SCH (21:35)
[2022-06-10] MEDS: MELATONIN 3 MG TABLET PO SCH (21:35)
[2022-06-10] MEDS ORDERED: DOCUSATE 100 MG CAP PO PRN (23:51)
[2022-06-11] MEDS: ONDANSETRON ODT 8 MG TAB.RAPDIS PO PRN ×2 (00:38→17:55)
[2022-06-11 05:54] LABS: Glucose,Whole Blood 115 mg/dL (70-110)
[2022-06-11] MEDS: methylPREDNISolone SOD SUCCI 125 MG/2 ML VIAL IV SCH ×4 (06:22→23:50)
[2022-06-11] MEDS: INSULIN ASPART (NovoLOG) 100 UNIT/ML VIAL SQ SCH ×4 (06:23→21:26)
[2022-06-11] MEDS: PANTOPRAZOLE 40 MG TABLET PO SCH (06:23)
[2022-06-11 07:02] LABS: African American GFR (CKD) >90 (>60 ml/min/1.73 sqM); Anion Gap 4 mmol/L; Blood Urea Nitrogen 47 mg/dL (9-20); Calcium 8.3 mg/dL (8.4-10.2); Carbon Dioxide 40 mmol/L (22-30); Chloride 84 mmol/L (98-107); Glucose 99 mg/dL (74-99); Non-African American GFR(CKD) >90 (>60 ml/min/1.73 sqM); Potassium 4.6 mmol/L (3.5-5.1); Sodium 128 mmol/L (137-145)
[2022-06-11] MEDS: IPRATROPIUM-ALBUTEROL 3 ML NEB INHALATION SCH ×4 (07:35→20:57)
[2022-06-11] MEDS: SYMBICORT 160-4.5 MCG INHALER INHALATION SCH ×2 (07:35→20:57)
[2022-06-11] MEDS ORDERED: ERGOCALCIFEROL 1,250 MCG (50,000 IU) CAPSULE PO SCH (09:00)
[2022-06-11] MEDS: LACTULOSE 20 GM/30 ML CUP PO SCH (09:04)
[2022-06-11] MEDS: amLODIPine 5 MG TAB PO SCH ×2 (09:05→21:32)
[2022-06-11] MEDS: METOPROLOL SUCCINATE (ER) 25 MG TAB.ER.24H PO SCH (09:05)
[2022-06-11] MEDS: SENNOSIDES-DOCUSATE SODIUM 1 EACH TAB PO SCH (09:05)
[2022-06-11] MEDS: TAMSULOSIN 0.4 MG CAP.ER.24H PO SCH ×2 (09:05→21:32)
[2022-06-11] MEDS: lisinopriL 20 MG TAB PO SCH ×2 (09:05→23:53)
[2022-06-11] MEDS: ASPIRIN 81 MG PO SCH (09:05)
[2022-06-11] MEDS: traMADol 50 MG TAB PO PRN ×3 (09:10→23:49)
[2022-06-11 11:05] LABS: Glucose,Whole Blood 129 mg/dL (70-110)
--- NOTE | 2022-06-11 12:15 | P.PN ---
Subjective Progress Note Date: 06/11/22 71-year-old male patient who is very well-known to me. The patient has severe COPD with an FEV1 of 34% of predicted. The patient is also known to have coronary artery disease with mild triple-vessel disease, other comorbidities include abdominal aortic aneurysm, hypertension, hyperlipidemia and history of laryngeal cancer for which the patient is receiving radiation therapy. He has chronic pain also. The patient was in the hospital in May 2022 for an accidental overdose with liquid morphine and he was treated with Narcan and following that the patient came in to the intensive care unit where he was intubated and placed on a mechanical ventilator and subsequently was extubated without any major difficulties and the patient was discharged home. During this current admission, the patient is coming in with worsening shortness of breath. The patient stated that over the past few days, he was having increased dyspnea and was progressively getting worse. He also had increased cough and some sputum production. Denied any fever or chills. He is on 4 L of oxygen at home by nasal cannula. No chest pain. No swelling in lower extremities. During this current admission, the patient was hospitalized for an acute COPD exacerbation. Chest x-ray showed chronic findings. The labs for now she'll a number of missing of 8.7 with a hemoglobin 15.7 and a platelet count of 183. Sodium is at 131 with a potassium level of 3.9, bicarbonate is 44 with a BUN of 10 and a creatinine 0.5. Lactic acid was high as 2.1-0.9 and troponin been negative. For now, the patient has normal cognition profile. He is on doxycycline as an empiric antibiotic coverage. Is on DuoNeb about treatments [id number]. He is also on IV Solu-Medrol 60 mg every 6 hours. Rest of the medications are his typical outpatient medications and all of them are resumed. Noted on outpatient basis, the patient has a maternal Symbicort and Ventolin HFA and albuterol updrafts and oxygen therapy. He is still smoking 1/2 PPD. On 06/08/2022, I'm seeing the patient for a follow-up. He is feeling slightly better. Since last evaluation, the patient has not some progress and he is less short of breath. His pro calcitonin level is at 0.04. His influenza, Covid 19 and RSV screen came back negative. BUN is at 38 with a creatinine of 0.7 and a sodium level is at 132. He remains on bronchodilators and steroids. No shortness of breath, currently on oxygen at 6 L. On 06/09/2022, the patient is still in the hospital. Since yesterday, he has noted some urinary retention. He is getting frequent bladder scan of the last scan showed a total of 350 mL of urine and based on that no Busch cath was inserted and the patient is being monitored very closely. At the same time, he has not had a bowel movement for almost a week. He was given an enema yesterday. His overall respiratory status is stable. Remains on bronchodilators. Remains on steroids. His discharge was held yesterday. 06/10/2022, the patient is still in the hospital as his recovering from COPD exacerbation. He had issues with constipation and urinary retention. He was having high urinary residuals and the patient was given a Busch catheter yesterday. He was also given laxatives and he started producing some stool. Otherwise, his overall respiratory status is stable. Remains on IV Solu-Medrol. Remains on Symbicort. Remains on DuoNeb updrafts [id number]. 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 No respiratory difficulties addressed. Currently is on oxygen 5 L nasal cannula. The patient is seen today 06/11/2022 in follow-up on the selective care unit. Currently sitting up in bed. Awake and alert in no acute distress. Denies any worsening shortness of breath, cough or congestion. He is maintaining O2 saturations in the 90s on 5 L high flow nasal cannula. Afebrile. Hemodyn amically stable. Sputum culture revealed no growth. Sodium 128. Potassium 4.6. Bicarb 40. BUN 47. Creatinine 0.8. Glucose 115. He did not DuoNeb inhalations, Symbicort, IV Solu-Medrol. Receiving stool softeners and laxatives for his complaints of constipation. Objective - Vital Signs Vital signs: Vital Signs Temp 97.5 F L 06/11/22 09:03 Pulse 73 06/11/22 11:56 Resp 19 06/11/22 11:28 BP 113/68 06/11/22 11:28 Pulse Ox 92 L 06/11/22 11:28 FiO2 50 06/07/22 15:28 Intake & Output 06/10/22 06/11/22 06/11/22 18:59 06:59 18:59 Intake Total 1560 Output Total 675 1100 Balance 885 -1100 Intake: Oral 1560 Output: Urine 675 1100 Uretheral (Busch) 550 Other: Voiding Method Indwelling Catheter Indwelling Catheter # Bowel Movements 1 3 - Exam GENERAL EXAM: Alert, pleasant 71-year-old male, on 5 L nasal cannula, comfortable in no apparent distress. HEAD: Normocephalic. EYES: Normal reaction of pupils, equal size. NOSE: Clear with pink turbinates. THROAT: No erythema or exudates. NECK: No masses, no JVD. CHEST: No chest wall deformity. LUNGS: Equal air entry with bilateral end expiratory wheeze, diminished. CVS: S1 and S2 normal with no audible murmur, regular rhythm. ABDOMEN: No hepatosplenomegaly, normal bowel sounds, no guarding or rigidity. SPINE: No scoliosis or deformity SKIN: No rashes CENTRAL NERVOUS SYSTEM: No focal deficits, tone is normal in all 4 extremities. EXTREMITIES: There is no peripheral edema. No clubbing, no cyanosis. Peripheral pulses are intact. - Labs CBC & Chem 7: 06/04/22 13:30 06/11/22 05:51 Labs: Abnormal Lab Results - Last 24 Hours (Table) 06/10/22 06/10/22 06/11/22 Range/Units 16:22 20:01 05:51 Sodium 128 L (137-145) mmol/L Chloride 84 L (98-107) mmol/L Carbon Dioxide 40 H (22-30) mmol/L BUN 47 H (9-20) mg/dL POC Glucose (mg/dL) 118 H 149 H (70-110) mg/dL Calcium 8.3 L (8.4-10.2) mg/dL 06/11/22 06/11/22 Range/Units 05:53 11:04 Sodium (137-145) mmol/L Chloride (98-107) mmol/L Carbon Dioxide (22-30) mmol/L BUN (9-20) mg/dL POC Glucose (mg/dL) 115 H 129 H (70-110) mg/dL Calcium (8.4-10.2) mg/dL Microbiology - Last 24 Hours (Table) 06/07/22 10:30 Gram Stain - Final Sputum Sputum Culture - Final Assessment and Plan Assessment: Acute COPD exacerbation, likely due to his ongoing smoking habits. A superinfection with a virus cannot be completely ruled out and the viral screen needs to be completed. Accordingly, the patient is going to be screened for influenza, RSV and Covid 19. Noted the patient has severe oxygen dependent COPD with an FEV1 of 34% of predicted. Chronic hypoxic respiratory failure Chronic hypercapnic respiratory failure secondary to COPD Laryngeal cancer completed a total of 21 sessions of radiation therapy Recent hospitalization for accidental opiate overdose requiring intubation and mechanical ventilation Abdominal aortic aneurysm History of BPH Hyperlipidemia Coronary artery disease with nonocclusive multivessel CAD Heartburn Hoarseness secondary to above Chronic constipation post enema and a component of urinary retention, Busch catheter was inserted. Constipation is gradually improving Plan: The patient was seen and evaluated Medications and labs reviewed Continue current treatment plan Titrate down the FiO2 as tolerated Continue incentive spirometer and cough and deep breathing exercises Educated regarding the importance of complete smoking cessation We will continue to follow I have personally seen and examined the patient, performed the documentation and the assessment and plan as written. Number of minutes spent on the visit: 10.
--- NOTE | 2022-06-11 14:45 | P.PN ---
Subjective Progress Note Date: 06/11/22 Principal diagnosis: COPD exacerbation The patient is a 71-year-old male the past medical history significant for laryngeal cancer with radiation treatment, severe COPD FEV1 34% predicted, 4 L home O2, hyperlipidemia, hypertension, and AAA with repair. He presented to the emergency department on 06/04/22 with difficulty in breathing for the last 4 days that has been getting progressively worse. Patient denied any fever chill. Patient denied any chest pain, abdominal pain, nausea, vomiting, or diarrhea. Pulmonary is following. Has been treated with bronchodilators, steroids, and prophylactic antibiotics. 06/07 The patient is sitting up in his bed and eating lunch. Information regarding palliative care philosophies and services provided. Education provided regarding his severe COPD with a at the V1 of 34% predicted. The patient understands that there is no cure for his COPD and treatment options are limited. He also understands that there will come a point in time when he does not respond to the treatments as well. He has had multiple conversations with his regarding his end-of-life wishes. His is also chronically ill with CHF and CKD. The patient states that he and his already have their mohamud written. At this point the patient wishes to come back to the hospital for treatment if he had another COPD exacerbation. His goal is for prolonged survival. CODE STATUS discussed in detail. The patient wishes to remain a full code. That is with the understanding that if he were ever placed on a mechanical ventilator he may not ever come off of it. He states that his family understands that he is okay being on a ventilator for a short period of time. He states his family knows his wishes. The patient is interested in receiving palliative care services at home to prevent frequent readmissions to the hospital 06/08 The patient states he is feeling better today. His O2 is down to 5 L nasal cannula now and he states he is less short of breath. He states he might be able to go home tomorrow. He reports still having intermittent headaches for which she takes tramadol at home. These headaches began once he started radiation. He states the tramadol helps for a couple hours. The patient states he would like to continue with begin home health care. He also would like to see palliative care at home. His caseworker intake is aware and has already placed a referral. Objective - Vital Signs Vital signs: Vital Signs Temp 97.5 F L 06/11/22 09:03 Pulse 73 06/11/22 11:56 Resp 19 06/11/22 11:28 BP 113/68 06/11/22 11:28 Pulse Ox 92 L 06/11/22 11:28 FiO2 50 06/07/22 15:28 Intake & Output 06/10/22 06/11/22 06/11/22 18:59 06:59 18:59 Intake Total 1560 Output Total 675 1100 528 Balance 885 -1100 -528 Intake: Oral 1560 Output: Urine 675 1100 Uretheral (Busch) 550 Post Void Residual 528 Other: Voiding Method Indwelling Catheter Indwelling Catheter # Bowel Movements 1 3 - Exam General: Well developed, well nourished. No acute distress. Chronically ill appearing HEENT: Head is atraumatic, normocephalic. Sclera are clear. CV: Heart regular in rate and rhythm positive S1 and S2. Lungs: Expiratory wheezes, respirations even and nonlabored, nonproductive cough. On 5 L nasal cannula Abdomen/GI: Soft.No guarding, rigidity, or abdominal tenderness. : No suprapubic tenderness. Musculoskeletal/ Extremities: ROPER, + generalized weakness Skin: Warm and dry Neurologic: Awake, alert and oriented times 3. CN II-XII grossly intact. No focal deficits. Psychiatric: Appropriate mood and affect. - Labs CBC & Chem 7: 06/04/22 13:30 06/11/22 05:51 Labs: Abnormal Lab Results - Last 24 Hours (Table) 06/10/22 06/10/22 06/11/22 Range/Units 16:22 20:01 05:51 Sodium 128 L (137-145) mmol/L Chloride 84 L (98-107) mmol/L Carbon Dioxide 40 H (22-30) mmol/L BUN 47 H (9-20) mg/dL POC Glucose (mg/dL) 118 H 149 H (70-110) mg/dL Calcium 8.3 L (8.4-10.2) mg/dL 06/11/22 06/11/22 Range/Units 05:53 11:04 Sodium (137-145) mmol/L Chloride (98-107) mmol/L Carbon Dioxide (22-30) mmol/L BUN (9-20) mg/dL POC Glucose (mg/dL) 115 H 129 H (70-110) mg/dL Calcium (8.4-10.2) mg/dL Microbiology - Last 24 Hours (Table) 06/07/22 10:30 Gram Stain - Final Sputum Sputum Culture - Final Assessment and Plan Assessment: Symptoms * Pain -10 headache, Continue Tramadol * Fatigue - Yes, + generalized weakness and fatigue, continue PT/OT * SOB - Yes, Continue Solumedrol, Duoneb, Albuterol, Symbicort, and Vibramycin * Insomnia - Yes, continue Melatonin * N/V - Occasional, continue Zofran * Anxiety - No * Depression - Occasional * Confusion - No * Agitation - No * Hallucinations - No * Appetite/weight loss - + recent appetite loss, no weight loss. Continue regular diet and ensure TIDWM * Dysphagia - patient has some discomfort and difficulty swallowing secondary to radiation, no S/S of aspiration * Constipation - Constipated and received enema. Now has diarrhea. x 3 BM today. continue colace, senokot-s, and MOM. D/c Lactulose. * Incontinence - History of BPH. Voids per urinal. + Retention increased Flomax to BID * Itch - no * Cough - no Plan: Summary/Goals - The patient ;is feeling very frustrated. He was very constipated, was given an enema, and now has diarrhea. He said he feels terrible and can not stop liquid having bowel movements. His Busch catheter was removed early this morning. Patient feels as if he did not empty his bladder completely. He finally urinated approximately 250ml. PVR 528 ml. Flomax increased to BID. The patient is upset that he does not know what is going on. One of his doctors told him he was going home today. He stated no one is communicating with him. The patient was reassured and emotional support was provided. He was informed that he has not been seen by his attending physician. His nurse was notified to keep him notified. Recommendations - home with palliative care services when medically stable Advanced Directives - none on file Code Status - full code Thank you for this consultation Nikki Brennan [facility] [id number] Email: [email or web address] Time with Patient: Greater than 30
[2022-06-11 16:46] LABS: Glucose,Whole Blood 124 mg/dL (70-110)
[2022-06-11 19:56] LABS: Glucose,Whole Blood 142 mg/dL (70-110)
[2022-06-11] MEDS: ATORVASTATIN 80 MG TAB PO SCH (21:31)
[2022-06-11] MEDS: MELATONIN 3 MG TABLET PO SCH (21:32)
--- NOTE | 2022-06-11 22:02 | P.PN ---
Subjective Progress Note Date: 06/11/22 Patient seen today had some problems with diarrhea early in the evening stool softeners and suppositories will be held. Patient is on 5 L nasal cannula we'll continue to follow patient progress today states he's feeling much improvement. Objective - Vital Signs Vital signs: Vital Signs Temp 97.5 F L 06/11/22 09:03 Pulse 74 06/11/22 21:11 Resp 19 06/11/22 17:51 BP 93/51 06/11/22 17:51 Pulse Ox 92 L 06/11/22 11:28 FiO2 50 06/07/22 15:28 Intake & Output 06/11/22 06/11/22 06/12/22 06:59 18:59 06:59 Output Total 1100 878 875 Balance -1100 -878 -875 Output: Urine 1100 350 674 Straight 350 Uretheral (Busch) 550 Post Void Residual 528 201 Other: Voiding Method Indwelling Catheter # Voids 1 # Bowel Movements 3 1 - Exam PHYSICAL EXAM: VITAL SIGNS: As above GENERAL: Sitting up in bed, alert and oriented 3 hoarse,no acute distress HEENT: Atraumatic, normocephalic ,Conjunctivae normal. Oral mucosa moist. NECK: Supple, No JVD. CARDIOVASCULAR: S1, S2 regular. No murmur RESPIRATION: Breath sounds diminished in the bases. Scattered rhonchi, expiratory wheezing. ABDOMEN: Soft, nontender .no masses palpable.+Bowel sounds . LEGS: No edema. no swelling NERVOUS SYSTEM: Cranial nerves II through XII grossly intact. Skin: Warm and dry, no rash - Labs CBC & Chem 7: 06/04/22 13:30 06/11/22 05:51 Labs: Abnormal Lab Results - Last 24 Hours (Table) 06/11/22 06/11/22 06/11/22 Range/Units 05:51 05:53 11:04 Sodium 128 L (137-145) mmol/L Chloride 84 L (98-107) mmol/L Carbon Dioxide 40 H (22-30) mmol/L BUN 47 H (9-20) mg/dL POC Glucose (mg/dL) 115 H 129 H (70-110) mg/dL Calcium 8.3 L (8.4-10.2) mg/dL 06/11/22 06/11/22 Range/Units 16:45 19:54 Sodium (137-145) mmol/L Chloride (98-107) mmol/L Carbon Dioxide (22-30) mmol/L BUN (9-20) mg/dL POC Glucose (mg/dL) 124 H 142 H (70-110) mg/dL Calcium (8.4-10.2) mg/dL Assessment and Plan (1) COPD exacerbation Current Visit: Yes Status: Acute Code(s): J44.1 - CHRONIC OBSTRUCTIVE PULMONARY DISEASE W (ACUTE) EXACERBATION SNOMED Code(s): 407238673 (2) Acute respiratory failure Current Visit: No Status: Acute Code(s): J96.00 - ACUTE RESPIRATORY FAILURE, UNSP W HYPOXIA OR HYPERCAPNIA SNOMED Code(s): 05980099 (3) CAD (coronary artery disease) Current Visit: No Status: Acute Code(s): I25.10 - ATHSCL HEART DISEASE OF [place] CORONARY ARTERY W/O ANG PCTRS SNOMED Code(s): 29069565 (4) Hypertension Current Visit: No Status: Acute Code(s): I10 - ESSENTIAL (PRIMARY) HYPERTENSION SNOMED Code(s): 71122593 (5) Laryngeal cancer Current Visit: No Status: Acute Priority: Medium Code(s): C32.9 - MALIGNANT NEOPLASM OF [place], UNSPECIFIED SNOMED Code(s): 507358013 Plan: Plan is to continue current regimen will start discharge planning with hopes of getting patient to return to home he has suffered from diarrhea overnight so continue to follow his progress today anticipate discharge in 24-36 hours Time with Patient: Greater than 30
[2022-06-12 04:28] VITALS: RESP 20
[2022-06-12 06:02] LABS: Glucose,Whole Blood 116 mg/dL (70-110)
[2022-06-12] MEDS: INSULIN ASPART (NovoLOG) 100 UNIT/ML VIAL SQ SCH ×2 (06:47→11:52)
[2022-06-12] MEDS: methylPREDNISolone SOD SUCCI 125 MG/2 ML VIAL IV SCH ×2 (06:50→11:58)
[2022-06-12] MEDS: PANTOPRAZOLE 40 MG TABLET PO SCH (06:50)
[2022-06-12] MEDS: SYMBICORT 160-4.5 MCG INHALER INHALATION SCH (08:04)
[2022-06-12] MEDS: IPRATROPIUM-ALBUTEROL 3 ML NEB INHALATION SCH ×2 (08:04→12:10)
[2022-06-12] MEDS: ASPIRIN 81 MG PO SCH (08:16)
[2022-06-12] MEDS: TAMSULOSIN 0.4 MG CAP.ER.24H PO SCH (08:16)
[2022-06-12] MEDS: lisinopriL 20 MG TAB PO SCH (08:16)
[2022-06-12] MEDS: METOPROLOL SUCCINATE (ER) 25 MG TAB.ER.24H PO SCH (08:16)
[2022-06-12] MEDS: amLODIPine 5 MG TAB PO SCH (08:16)
[2022-06-12] MEDS: SENNOSIDES-DOCUSATE SODIUM 1 EACH TAB PO SCH (08:17)
[2022-06-12] MEDS: traMADol 50 MG TAB PO PRN (08:36)
[2022-06-12 11:35] LABS: Glucose,Whole Blood 100 mg/dL (70-110)
--- NOTE | 2022-06-12 11:52 | P.PN ---
Subjective Progress Note Date: 06/12/22 Principal diagnosis: COPD exacerbation The patient is a 71-year-old male the past medical history significant for laryngeal cancer with radiation treatment, severe COPD FEV1 34% predicted, 4 L home O2, hyperlipidemia, hypertension, and AAA with repair. He presented to the emergency department on 06/04/22 with difficulty in breathing for the last 4 days that has been getting progressively worse. Patient denied any fever chill. Patient denied any chest pain, abdominal pain, nausea, vomiting, or diarrhea. Pulmonary is following. Has been treated with bronchodilators, steroids, and prophylactic antibiotics. 06/07 The patient is sitting up in his bed and eating lunch. Information regarding palliative care philosophies and services provided. Education provided regarding his severe COPD with a at the V1 of 34% predicted. The patient understands that there is no cure for his COPD and treatment options are limited. He also understands that there will come a point in time when he does not respond to the treatments as well. He has had multiple conversations with his regarding his end-of-life wishes. His is also chronically ill with CHF and CKD. The patient states that he and his already have their mohamud written. At this point the patient wishes to come back to the hospital for treatment if he had another COPD exacerbation. His goal is for prolonged survival. CODE STATUS discussed in detail. The patient wishes to remain a full code. That is with the understanding that if he were ever placed on a mechanical ventilator he may not ever come off of it. He states that his family understands that he is okay being on a ventilator for a short period of time. He states his family knows his wishes. The patient is interested in receiving palliative care services at home to prevent frequent readmissions to the hospital 06/08 The patient states he is feeling better today. His O2 is down to 5 L nasal cannula now and he states he is less short of breath. He states he might be able to go home tomorrow. He reports still having intermittent headaches for which she takes tramadol at home. These headaches began once he started radiation. He states the tramadol helps for a couple hours. The patient states he would like to continue with begin home health care. He also would like to see palliative care at home. His pillowcase cutter is aware and has already placed a referral. 06/11 The patient is feeling very frustrated. He was very constipated, was given an enema, and now has diarrhea. He said he feels terrible and can not stop liquid having bowel movements. His Busch catheter was removed early this morning. Patient feels as if he did not empty his bladder completely. He finally urinated approximately 250ml. PVR 528 ml. Flomax increased to BID. The patient is upset that he does not know what is going on. One of his doctors told him he was going home today. He stated no one is communicating with him. The patient was reassured and emotional support was provided. He was informed that he has not been seen by his attending physician. His nurse was notified to keep him notified. Objective - Vital Signs Vital signs: Vital Signs Temp 97.6 F 06/12/22 08:19 Pulse 74 06/12/22 08:20 Resp 20 06/12/22 08:19 BP 114/62 06/12/22 08:19 Pulse Ox 92 L 06/12/22 08:04 FiO2 50 06/07/22 15:28 Intake & Output 06/11/22 06/12/22 06/12/22 18:59 06:59 18:59 Intake Total 358 Output Total 878 1500 400 Balance -878 -1500 -42 Intake: Oral 358 Output: Urine 350 1299 400 Straight 350 275 Post Void Residual 528 201 Other: Voiding Method Indwelling Catheter # Voids 1 1 # Bowel Movements 1 - Exam General: Well developed, well nourished. No acute distress. Chronically ill appearing HEENT: Head is atraumatic, normocephalic. Sclera are clear. CV: Heart regular in rate and rhythm positive S1 and S2. Lungs: Expiratory wheezes, respirations even and nonlabored, nonproductive cough. On 5 L nasal cannula Abdomen/GI: Soft.No guarding, rigidity, or abdominal tenderness. : No suprapubic tenderness. Musculoskeletal/ Extremities: ROPER, + generalized weakness Skin: Warm and dry Neurologic: Awake, alert and oriented times 3. CN II-XII grossly intact. No focal deficits. Psychiatric: Appropriate mood and affect. - Labs CBC & Chem 7: 06/04/22 13:30 06/11/22 05:51 Labs: Abnormal Lab Results - Last 24 Hours (Table) 06/11/22 06/11/22 06/12/22 Range/Units 16:45 19:54 06:00 POC Glucose (mg/dL) 124 H 142 H 116 H (70-110) mg/dL Assessment and Plan Assessment: Symptoms * Pain -5/10 headache, Continue Tramadol * Fatigue - Yes, + generalized weakness and fatigue, continue PT/OT * SOB - Yes, Continue Solumedrol, Duoneb, Albuterol, Symbicort, and Vibramycin * Insomnia - Yes, continue Melatonin * N/V - Occasional, continue Zofran * Anxiety - No * Depression - Occasional * Confusion - No * Agitation - No * Hallucinations - No * Appetite/weight loss - + recent appetite loss, no weight loss. Continue regular diet and ensure TIDWM * Dysphagia - patient has some discomfort and difficulty swallowing secondary to radiation, no S/S of aspiration * Constipation - LBM 06/11. Diarrhea resolved. continue ducosate, senokot-s, and MOM prn * Incontinence - History of BPH. Voids per urinal. + Retention continue Flomax * Itch - no * Cough - + productive Plan: Summary/Goals - The patient is in better spirits today. He states he is feeling better and his diarrhea has resolved. He is disappointed that he is still on 5L O2. He has accepted that this may be his new baseline. He stated that he worked with PT/OT this morning. He is considering going to rehab to get stronger before returning home. He is still very much interested in continuing with palliative care. Recommendations - home/PROSPER with palliative care services when medically stable Advanced Directives - none on file Code Status - full code Thank you for this consultation Nikki Brennan [facility] Pall[facility] Care Spectralink [phone] Email: [email or web address] Time with Patient: Less than 30
[2022-06-12 12:03] VITALS: BMI 23.2
[2022-06-12 12:21] VITALS: BP 92/52; PULSE 67; TEMP 97.7
--- NOTE | 2022-06-12 12:25 | P.PN ---
Subjective Progress Note Date: 06/12/22 71-year-old male patient who is very well-known to me. The patient has severe COPD with an FEV1 of 34% of predicted. The patient is also known to have coronary artery disease with mild triple-vessel disease, other comorbidities include abdominal aortic aneurysm, hypertension, hyperlipidemia and history of laryngeal cancer for which the patient is receiving radiation therapy. He has chronic pain also. The patient was in the hospital in May 2022 for an accidental overdose with liquid morphine and he was treated with Narcan and following that the patient came in to the intensive care unit where he was intubated and placed on a mechanical ventilator and subsequently was extubated without any major difficulties and the patient was discharged home. During this current admission, the patient is coming in with worsening shortness of breath. The patient stated that over the past few days, he was having increased dyspnea and was progressively getting worse. He also had increased cough and some sputum production. Denied any fever or chills. He is on 4 L of oxygen at home by nasal cannula. No chest pain. No swelling in lower extremities. During this current admission, the patient was hospitalized for an acute COPD exacerbation. Chest x-ray showed chronic findings. The labs for now she'll a number of missing of 8.7 with a hemoglobin 15.7 and a platelet count of 183. Sodium is at 131 with a potassium level of 3.9, bicarbonate is 44 with a BUN of 10 and a creatinine 0.5. Lactic acid was high as 2.1-0.9 and troponin been negative. For now, the patient has normal cognition profile. He is on doxycycline as an empiric antibiotic coverage. Is on DuoNeb about treatments [id number]. He is also on IV Solu-Medrol 60 mg every 6 hours. Rest of the medications are his typical outpatient medications and all of them are resumed. Noted on outpatient basis, the patient has a maternal Symbicort and Ventolin HFA and albuterol updrafts and oxygen therapy. He is still smoking 1/2 PPD. On 06/08/2022, I'm seeing the patient for a follow-up. He is feeling slightly better. Since last evaluation, the patient has not some progress and he is less short of breath. His pro calcitonin level is at 0.04. His influenza, Covid 19 and RSV screen came back negative. BUN is at 38 with a creatinine of 0.7 and a sodium level is at 132. He remains on bronchodilators and steroids. No shortness of breath, currently on oxygen at 6 L. On 06/09/2022, the patient is still in the hospital. Since yesterday, he has noted some urinary retention. He is getting frequent bladder scan of the last scan showed a total of 350 mL of urine and based on that no Busch cath was inserted and the patient is being monitored very closely. At the same time, he has not had a bowel movement for almost a week. He was given an enema yesterday. His overall respiratory status is stable. Remains on bronchodilators. Remains on steroids. His discharge was held yesterday. 06/10/2022, the patient is still in the hospital as his recovering from COPD exacerbation. He had issues with constipation and urinary retention. He was having high urinary residuals and the patient was given a Busch catheter yesterday. He was also given laxatives and he started producing some stool. Otherwise, his overall respiratory status is stable. Remains on IV Solu-Medrol. Remains on Symbicort. Remains on DuoNeb updrafts [id number]. 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 No respiratory difficulties addressed. Currently is on oxygen 5 L nasal cannula. The patient is seen today 06/11/2022 in follow-up on the selective care unit. Currently sitting up in bed. Awake and alert in no acute distress. Denies any worsening shortness of breath, cough or congestion. He is maintaining O2 saturations in the 90s on 5 L high flow nasal cannula. Afebrile. Hemodyn amically stable. Sputum culture revealed no growth. Sodium 128. Potassium 4.6. Bicarb 40. BUN 47. Creatinine 0.8. Glucose 115. He did not DuoNeb inhalations, Symbicort, IV Solu-Medrol. Receiving stool softeners and laxatives for his complaints of constipation. Patient seen today 06/12/2022 in follow-up on the selective care unit. He is currently resting comfortably in bed. Awake and alert in no acute distress. He denies any worsening shortness of breath, cough or congestion. He's been maintained on Symbicort, DuoNeb inhalations, IV Solu-Medrol. Sputum culture revealed no growth. Blood glucose 100. He is being considered for subacute rehabilitation. Objective - Vital Signs Vital signs: Vital Signs Temp 97.6 F 06/12/22 08:19 Pulse 67 06/12/22 12:12 Resp 20 06/12/22 08:19 BP 114/62 06/12/22 08:19 Pulse Ox 92 L 06/12/22 08:04 FiO2 50 06/07/22 15:28 Intake & Output 06/11/22 06/12/22 06/12/22 18:59 06:59 18:59 Intake Total 358 Output Total 878 1500 400 Balance -878 -1500 -42 Weight 73.5 kg Intake: Oral 358 Output: Urine 350 1299 400 Straight 350 275 Post Void Residual 528 201 Other: Voiding Method Indwelling Catheter # Voids 1 1 # Bowel Movements 1 - Exam GENERAL EXAM: Alert, 71-year-old male, sitting up at the bedside, on 5 L nasal cannula, comfortable in no apparent distress. HEAD: Normocephalic. EYES: Normal reaction of pupils, equal size. NOSE: Clear with pink turbinates. THROAT: No erythema or exudates. NECK: No masses, no JVD. CHEST: No chest wall deformity. LUNGS: Equal air entry with bilateral end expiratory wheeze, diminished. CVS: S1 and S2 normal with no audible murmur, regular rhythm. ABDOMEN: No hepatosplenomegaly, normal bowel sounds, no guarding or rigidity. SPINE: No scoliosis or deformity SKIN: No rashes CENTRAL NERVOUS SYSTEM: No focal deficits, tone is normal in all 4 extremities. EXTREMITIES: There is no peripheral edema. No clubbing, no cyanosis. Peripheral pulses are intact. - Labs CBC & Chem 7: 06/04/22 13:30 06/11/22 05:51 Labs: Abnormal Lab Results - Last 24 Hours (Table) 06/11/22 06/11/22 06/12/22 Range/Units 16:45 19:54 06:00 POC Glucose (mg/dL) 124 H 142 H 116 H (70-110) mg/dL Assessment and Plan Assessment: Acute COPD exacerbation, likely due to his ongoing smoking habits. Pro calcito sandy 0.04. CoVID 19 screen negative, influenza screen negative, RSV screen negative. Noted the patient has severe oxygen dependent COPD with an FEV1 of 34% of predicted. Chronic hypoxic respiratory failure secondary to COPD Chronic hypercapnic respiratory failure secondary to COPD Laryngeal cancer completed a total of 21 sessions of radiation therapy Recent hospitalization for accidental opiate overdose requiring intubation and mechanical ventilation Abdominal aortic aneurysm History of BPH Hyperlipidemia Coronary artery disease with nonocclusive multivessel CAD Heartburn Hoarseness secondary to above Chronic constipation post enema and a component of urinary retention, Busch cath eter was inserted. Constipation is gradually improving Plan: The patient was seen and evaluated Medications reviewed Stopped IV Solu-Medrol, initiate prednisone taper Continue Symbicort, albuterol HFA Titrate down the FiO2 as tolerated Educated regarding the importance of complete smoking cessation Cleared for transfer to ECF once a bed available I have personally seen and examined the patient, performed the documentation and the assessment and plan as written. Number of minutes spent on the visit: 10.
--- NOTE | 2022-06-12 12:25 | P.DS ---
Providers Date of admission: 06/04/22 18:21 Expected date of discharge: 06/12/22 Attending physician: Jamie Balderas Consults: 06/06/22 15:01 Consult to Palliative Care Routine Consulting Provider: Nikki Brennan Consult Reason/Comments: hypoxic/hypercapnic respiratory failure/hx of laryngeal ca Do you want consulting provider notified?: Yes 06/06/22 15:55 Consult Physician Routine Consulting Provider: Lisa Gonzalez Consult Reason/Comments: COPD exacerbation Do you want consulting provider notified?: Yes Primary care physician: Jamie Balderas Hospital Course: Final Diagnoses: Acute on Chronic hypoxic, hypercapnic respiratory failure secondary to COPD exacerbation in a patient with history of laryngeal carcinoma. Severe oxygen dependent COPD Recently hospitalized for accidental opiate overdose requiring intubation/mechanical ventilation. Lactic acidosis, resolved Chronic pain syndrome CAD Hypertension Hyperlipidemia Ongoing nicotine dependence, smoking cessation enforced Autoimmune disease, follows with both Dr. Goins and Anil Lara web ui developer OP History of Abdominal aortic aneurysm, outpatient monitoring Hospital course:This is a 71-year-old gentleman with past medical history of recently diagnosed laryngeal cancer -receiving radiation treatments at [facility], severe COPD, nicotine dependence, CAD, hypertension and multiple other medical issues, admitted with acute COPD exacerbation, chronic hypoxic and hypercapnic respiratory failure, recently hospitalized for accidental opiate overdose requiring intubation/mechanical ventilation and multiple other medical issues. Maintained on nebulized bronchodilators, steroids, Symbicort, doxycycline. BiPAP throughout the night. Afebrile. CODE STATUS addressed, wishes to remain a full code. 06/07/2022 Continues on nebulized bronchodilators, steroids and empiric antibiotics of doxycycline.BMP pending. Maintaining O2 sats in the 90s on 8 L high flow nasal cannula. Sodium 132, renal function worsening, BUN 38, creatinine 0.7 to. Blood sugars controlled. 06/08/22 maintained on doxycycline, nebulized bronchodilators , IV steroids, oxygen titrated down, maintaining O2 sats of 97% on 5 L high flow nasal cannula. Influenza, COVID-19, RSV screening negative. Denies chest pain, palpitations or shortness of breath. Labs pending. Significant clinical improvement. Currently requiring 5 L nasal cannula to maintain O2 sats in the 90s-normally wears 4 L at home. Patient will be discharged to [facility] subacute rehab today in a stable condition with guarded prognosis pending final DC recommendations and clearance per pulmonary. The impression and plan of care has been dictated as directed. : I performed a history and examination of this patient, discussed the same with the dictator. I agree with the dictator's note ,documented as a scribe. Any additional findings or plans will be noted. Patient Condition at Discharge: Stable Plan - Discharge Summary Discharge Rx Participant: No New Discharge Prescriptions: New Magnesium Hydroxide [Milk of Magnesia Concentrate] 2,400 mg PO DAILY PRN ml PRN Reason: Constipation Sennosides-Docusate Sodium [Senokot-S] 2 each PO DAILY tab predniSONE 10 mg PO DIRECTED #30 tab Continue Atorvastatin [Lipitor] 80 mg PO HS lisinopriL [Zestril] 20 mg PO BID amLODIPine [Norvasc] 5 mg PO BID SILVER sulfADIAZINE CREAM [Silvadene Cream] 1 applic TOPICAL BID Albuterol Nebulized [Ventolin Nebulized] 2.5 mg INHALATION RT-QID PRN PRN Reason: Shortness Of Breath Albuterol Sulfate [Ventolin HFA] 2 puff INHALATION RT-QID PRN PRN Reason: Shortness Of Breath Ergocalciferol (Vitamin D2) [Drisdol (50,000 Iu)] 1,250 mcg PO MO Tamsulosin HCl [Flomax] 0.4 mg PO DAILY Metoprolol Succinate (ER) [Toprol XL] 12.5 mg PO DAILY #30 tab Aspirin EC [Ecotrin Low Dose] 81 mg PO DAILY #30 tab Omeprazole 20 mg PO DAILY Budesonide-Formot 160-4.5 Mcg [Symbicort 160-4.5 Mcg Inhaler] 2 puff INHALATION RT-BID #1 each Ondansetron Odt [Zofran ODT] 8 mg PO Q8HR PRN PRN Reason: Nausea traMADol HCL 50 mg PO Q6H PRN PRN Reason: Pain Discontinued dexAMETHasone [Decadron] See Taper PO DIRECTED Discharge Medication List Atorvastatin [Lipitor] 80 mg PO HS 05/04/18 [History] lisinopriL [Zestril] 20 mg PO BID 03/04/19 [History] amLODIPine [Norvasc] 5 mg PO BID 06/25/19 [History] Albuterol Nebulized [Ventolin Nebulized] 2.5 mg INHALATION RT-QID PRN 03/06/20 [History] Albuterol Sulfate [Ventolin HFA] 2 puff INHALATION RT-QID PRN 03/06/20 [History] SILVER sulfADIAZINE CREAM [Silvadene Cream] 1 applic TOPICAL BID 03/06/20 [History] Ergocalciferol (Vitamin D2) [Drisdol (50,000 Iu)] 1,250 mcg PO MO 04/11/22 [History] Tamsulosin HCl [Flomax] 0.4 mg PO DAILY 04/11/22 [History] Aspirin EC [Ecotrin Low Dose] 81 mg PO DAILY #30 tab 04/16/22 [Rx] Budesonide-Formot 160-4.5 Mcg [Symbicort 160-4.5 Mcg Inhaler] 2 puff INHALATION RT-BID #1 each 04/16/22 [Rx] Metoprolol Succinate (ER) [Toprol XL] 12.5 mg PO DAILY #30 tab 04/16/22 [Rx] Omeprazole 20 mg PO DAILY 05/02/22 [History] Ondansetron Odt [Zofran ODT] 8 mg PO Q8HR PRN 05/02/22 [History] traMADol HCL 50 mg PO Q6H PRN 06/04/22 [History] Magnesium Hydroxide [Milk of Magnesia Concentrate] 2,400 mg PO DAILY PRN ml 06/12/22 [Rx] Sennosides-Docusate Sodium [Senokot-S] 2 each PO DAILY tab 06/12/22 [Rx] predniSONE 10 mg PO DIRECTED #30 tab 06/12/22 [Rx] Follow up Appointment(s)/Referral(s): [facility], [NON-STAFF] - Jamie Balderas DO [Primary Care Provider] - 3 Days Lisa Gonzalez MD [STAFF PHYSICIAN] - Patient Instructions/Handouts: COPD (Chronic Obstructive Pulmonary Disease) (DC) Activity/Diet/Wound Care/Special Instructions: [facility]acute [facility]hab. [facility] discussing switching patient from Symbicort to Trelegy OP. 5 L nasal cannula ( patient has 4 L nasal cannula O2 at home) Discharge Disposition: TRANSFER TO SNF/ECF
== END 2022-06-12 14:20 | DRG 189 ==
LOC: EC 12:53 → 3SCARD 18:21
PROVIDERS: ADMIT Family Medicine; ATTEND Family Medicine
PROC: 5A09457 Assistance with Respiratory Ventilation, 24-96 Consecutive Hours, Continuous Positive Airway Pressure (ICD-10-PCS; principal; 2022-06-04)
PROC: 5A0935A Assistance with Respiratory Ventilation, Less than 24 Consecutive Hours, High Flow/Velocity Cannula (ICD-10-PCS; 2022-06-06)
DX: J96.21 Acute and chronic respiratory failure with hypoxia (principal); J44.1 Chronic obstructive pulmonary disease with (acute) exacerbation; E87.20 Acidosis, unspecified; J96.22 Acute and chronic respiratory failure with hypercapnia; C32.9 Malignant neoplasm of larynx, unspecified; N40.1 Benign prostatic hyperplasia with lower urinary tract symptoms; R33.8 Other retention of urine; N39.498 Other specified urinary incontinence; R13.10 Dysphagia, unspecified; K59.09 Other constipation; F17.210 Nicotine dependence, cigarettes, uncomplicated; Z20.822 Contact with and (suspected) exposure to COVID-19; I25.10 Atherosclerotic heart disease of native coronary artery without angina pectoris; K21.9 Gastro-esophageal reflux disease without esophagitis; H91.92 Unspecified hearing loss, left ear; D89.89 Other specified disorders involving the immune mechanism, not elsewhere classified; K42.9 Umbilical hernia without obstruction or gangrene; N20.0 Calculus of kidney; I71.40 Abdominal aortic aneurysm, without rupture, unspecified; I10 Essential (primary) hypertension; G89.4 Chronic pain syndrome; R49.0 Dysphonia; G47.00 Insomnia, unspecified; F32.A Depression, unspecified; Z51.5 Encounter for palliative care; E78.5 Hyperlipidemia, unspecified; R19.7 Diarrhea, unspecified; S22.049D Unspecified fracture of fourth thoracic vertebra, subsequent encounter for fracture with routine healing; Z99.81 Dependence on supplemental oxygen; Z92.3 Personal history of irradiation; Z79.899 Other long term (current) drug therapy; Z79.82 Long term (current) use of aspirin; Z79.51 Long term (current) use of inhaled steroids; Z87.898 Personal history of other specified conditions; Z87.01 Personal history of pneumonia (recurrent); Z88.0 Allergy status to penicillin; Z88.8 Allergy status to other drugs, medicaments and biological substances; Z86.69 Personal history of other diseases of the nervous system and sense organs; Z71.6 Tobacco abuse counseling
CPT/HCPCS: 36415; 71046; 80048; 80053; 83605; 83735; 84145; 84484; 85025; 85610; 85730; 87070; 87205; 87636; 93005; 94640; 94660; 94760; 96361; 96365; 96375; 99291

== ENCOUNTER 2023-05-10 21:05 | Inpatient (IN) | payer MEDICARE, OTHER ==
--- NOTE | 2023-05-10 22:32 | ED ---
Fall HPI - General Chief Complaint: Fall Stated Complaint: Fall Time Seen by Provider: 05/10/23 21:47 Source: patient, EMS Mode of arrival: EMS - History of Present Illness Initial Comments: Patient is 72-year-old man coming to have evaluation after fall. He states he was in the [employer] parking lot. He believes he twisted his ankle, fell striking his right side. Patient complains of neck, shoulder or arm, right hip and leg pain. MD Complaint: fall Onset/Timin -: hour(s) Fall From: standing When Fall Occurred: [address] Fall Occurred: street Loss of Consciousness: unsure Prolonged Down Time?: no Symptoms Prior to Fall: none Location: neck Location - Extremities: Right: Shoulder, Thigh Severity: severe Context: tripped/slipped Associated Symptoms: denies - Related Data Home Medications Medication Instructions Recorded Confirmed lisinopriL [Zestril] 20 mg PO BID 03/04/19 05/10/23 Albuterol Nebulized [Ventolin 2.5 mg INHALATION RT-QID PRN 03/06/20 05/10/23 Nebulized] Albuterol Sulfate [Ventolin HFA] 2 puff INHALATION RT-QID PRN 03/06/20 05/10/23 Tamsulosin HCl [Flomax] 0.4 mg PO DAILY 04/11/22 05/10/23 Omeprazole 20 mg PO DAILY 05/02/22 05/10/23 Previous Rx's Medication Instructions Recorded Aspirin EC [Ecotrin Low Dose] 81 mg PO DAILY #30 tab 04/16/22 Budesonide-Formot 160-4.5 Mcg 2 puff INHALATION RT-BID #1 each 04/16/22 [Symbicort 160-4.5 Mcg Inhaler] Metoprolol Succinate (ER) [Toprol 12.5 mg PO DAILY #30 tab 04/16/22 XL] Aspirin [Adult Low Dose Aspirin EC] 81 mg PO BID #1 tab 05/13/23 HYDROcodone/APAP 7.5-325MG [[place] 1 - 2 tab PO Q6HR PRN #32 tab 05/13/23 7.5-325] Sennosides-Docusate Sodium 1 tab PO BID #60 tablet 05/13/23 [Senokot-S] Acetaminophen Tab [Tylenol] 650 mg PO Q6HR PRN tab 05/14/23 Magnesium Hydroxide [Milk of 2,400 mg PO DAILY PRN ml 05/14/23 Magnesia] predniSONE 10 mg PO DIRECTED #30 tab 05/14/23 Allergies Allergy/AdvReac Type Severity Reaction Status Date / Time Penicillins Allergy Rash/Hives Verified 05/10/23 23:05 gabapentin AdvReac Hallucinati Verified 05/10/23 23:05 ons/AMS morphine AdvReac Confusion Verified 05/10/23 23:05 Review of Systems ROS Statement: Those systems with pertinent positive or pertinent negative responses have been documented in the HPI. ROS Other: All systems not noted in ROS Statement are negative. Constitutional: Denies: fever, weakness Eyes: Denies: vision change Respiratory: Denies: cough, dyspnea Cardiovascular: Reports: chest pain. Denies: palpitations, edema Gastrointestinal: Denies: abdominal pain, nausea, vomiting, diarrhea Genitourinary: Denies: dysuria, testicular pain Musculoskeletal: Reports: as per HPI, arthralgia Skin: Denies: rash Neurological: Reports: headache. Denies: weakness Past Medical History Past Medical History: Coronary Artery Disease (CAD), Cancer, COPD, GERD/Reflux, Hearing Disorder / Deafness, Hyperlipidemia, Hypertension, Pneumonia, Prostate Disorder, Vascular Disorder Additional Past Medical History / Comment(s): Laryngeal cancer recently completed radiation treatments, severe COPD, chronic hypoxic and hypercapnic respiratory failure with home O2, resent respiratory failure/vented d/t accidental opiate overdose, history of autoimmune disease sees Dr. Goins and [facility]-never received specifics about the disease type, aortic aneurysm with repair, thoracolumbar pain/T4 fracture with recent surgery, nephrolithiasis-has passed stones on his own in the past, occasional bilateral leg cramps, left eardrum perforation/DEERING History of Any Multi-Drug Resistant Organisms: Other MDRO Past Surgical History: Appendectomy, Back Surgery, Ear Surgery, Heart Catheterization, Hernia Repair Additional Past Surgical History / Comment(s): 06/29/19 T4 kyphoplasty, Endovascular stent grafting of a abdominal aortic aneurysm. Facial reconstructive surgery. L ear surgery-myringotomy. Umbilical hernia. C olonoscopy-benign polypectomy. R cataract removed with lens. L eye had glass removed and lens placed. Past Anesthesia/Blood Transfusion Reactions: No Reported Reaction Additional Past Anesthesia/Blood Transfusion Reaction / Comment(s): Pt has never recieved blood. Past Psychological History: No Psychological Hx Reported Smoking Status: Current every day smoker Past Alcohol Use History: Occasional Past Drug Use History: None Reported - Past Family History Brother(s) Family Medical History: Cancer, Fibromyalgia Additional Family Medical History / Comment(s): Brother of lung cancer at the age of 42 yrs. He was a smoker. Sister(s) Family Medical History: Cancer, Fibromyalgia Additional Family Medical History / Comment(s): Sister of lung cancer. She was a smoker. Father Family Medical History: Myocardial Infarction ([place]) Additional Family Medical History / Comment(s): Father at age 75 yrs of a [place] Mother Family Medical History: Cancer Additional Family Medical History / Comment(s): Mother of metastatic cancer (unknown primary) at age 42 yrs. General Exam General appearance: alert, in no apparent distress Head exam: Present: atraumatic, normocephalic Eye exam: Present: normal appearance, PERRL, EOMI. Absent: scleral icterus, conjunctival injection Neck exam: Present: tenderness, other (Shouldn't is in cervical collar) Respiratory exam: Present: wheezes, chest wall tenderness. Absent: respiratory distress, rales, rhonchi, stridor, accessory muscle use Cardiovascular Exam: Present: regular rate, normal rhythm, normal heart sounds. Absent: systolic murmur, diastolic murmur, rubs, gallop GI/Abdominal exam: Present: soft. Absent: distended, tenderness, guarding, rebound, rigid, mass Extremities exam: Present: normal inspection, normal capillary refill. Absent: pedal edema, calf tenderness Back exam: Present: normal inspection. Absent: CVA tenderness (R), CVA tenderness (L), paraspinal tenderness, vertebral tenderness Neurological exam: Present: alert, oriented X3, CN II-XII intact. Absent: motor sensory deficit Skin exam: Present: warm, dry, intact, normal color. Absent: rash Course Vital Signs 05/10/23 05/10/23 05/10/23 21:08 21:24 23:06 Temperature 97.3 F L Pulse Rate 61 60 Respiratory 20 Rate Blood Pressure 132/71 125/72 O2 Sat by Pulse 91 L 90 L 90 L Oximetry 05/11/23 05/11/23 05/11/23 06:22 08:23 08:35 Temperature 98.6 F Pulse Rate 86 67 67 Respiratory 18 18 Rate Blood Pressure 102/61 O2 Sat by Pulse 98 95 Oximetry 05/11/23 05/11/23 05/11/23 11:18 11:27 11:39 Temperature Pulse Rate 72 72 82 Respiratory 18 Rate Blood Pressure 140/77 O2 Sat by Pulse 94 L Oximetry 05/11/23 05/11/23 13:12 14:12 Temperature Pulse Rate 65 64 Respiratory 18 18 Rate Blood Pressure 134/80 109/57 O2 Sat by Pulse 97 98 Oximetry Medical Decision Making - Medical Decision Making Patient is 72-year-old man who presents after ground-level fall in a parking lot. She has sustained right sided femoral neck fracture and right-sided humeral neck fracture. Case is discussed with Dr. Lundberg, who will admit. The patient does appear to be having mild-moderate of flareup of underlying COPD therefore medical clearance will be obtained. The patient had right hip and pelvis x-ray that I interpreted as showing right femoral neck fracture. The patient had right shoulder/humerus x-rays that interpreted as showing right humerus neck fracture. The patient had CT of the brain and C-spine that I interpreted as negative for acute bony injury or intracranial hemorrhage. The patient had right tib-fib x-ray that I interpreted as negative for acute f racture or dislocation. The patient had chest x-ray interpreted as negative for acute bony injury, p neumothorax. Was pt. sent in by a medical professional or institution (, PA, VETERINARY HOSPITAL ATTENDANT, urgent care, hospital, or custodial...) When possible be specific @ -[No] Did you speak to anyone other than the patient for history (EMS, parent, family, police, friend...)? What history was obtained from this source @ -[No] Did you review nursing and triage notes (agree or disagree)? Why? @ -[I reviewed and agree with nursing and triage notes] Were old charts reviewed (outside hosp., previous admission, EMS record, old EKG, old radiological studies, urgent care reports/EKG's, custodial records)? Report findings @ -[No old charts were reviewed] Differential Diagnosis (chest pain, altered mental status, abdominal pain women, abdominal pain men, vaginal bleeding, weakness, fever, dyspnea, syncope, headache, dizziness, GI bleed, back pain, seizure, CVA, palpatations, mental health, musculoskeletal)? @ -Differential Musculoskeletal Muscular strain, contusion, ligament sprain, fracture, arthritis, septic arthritis, bursitis, cellulitis, muscle spasm, nerve compression, DVT, arterial occlusion, herpes zoster, electrolyte abnormality, tumor.... This is not meant to be in all inclusive list EKG interpreted by me (3pts min.). @ -[As above] X-rays interpreted by me (1pt min.). @ -[I interpreted as above CT interpreted by me (1pt min.). @ -[I interpreted as above U/S interpreted by me (1pt. min.). @ -[None done] What testing was considered but not performed or refused? (CT, X-rays, U/S, labs)? Why? @ -[None] What meds were considered but not given or refused? Why? @ -[None] Did you discuss the management of the patient with other professionals (juwan soto i.anastacio Hathaway, PA, VETERINARY HOSPITAL ATTENDANT, lab, RT, psych nurse, sexual assault social worker, locomotive lubricating systems clerk, teacher, information technology officer, case planner)? Give summary @ -[Case discussed with orthopedic surgeon on-call who will admit probable surgery on the following day Was smoking cessation discussed for >3mins.? @ -[No] Was critical care preformed (if so, how long)? @ -[No] Were there social determinants of health that impacted care today? How? (Homelessness, low income, unemployed, alcoholism, drug addiction, transportati on, low edu. Level, literacy, decrease access to med. care, skilled nursing, rehab)? @ -[No] Was there de-escalation of care discussed even if they declined (Discuss DNR or withdrawal of care, Hospice)? DNR status @ -[No] What co-morbidities impacted this encounter? (DM, HTN, Smoking, COPD, CAD, Cancer, CVA, ARF, Chemo, Hep., AIDS, mental health diagnosis, sleep apnea, morbid obesity)? @ -[None] Was patient admitted / discharged? Hospital course, mention meds given and route, prescriptions, significant lab abnormalities, going to OR and other pertinent info. @ -[See above Undiagnosed new problem with uncertain prognosis? @ -[No] Drug Therapy requiring intensive monitoring for toxicity (Heparin, Nitro, Insulin, Cardizem)? @ -[No] Were any procedures done? @ -[No] Diagnosis/symptom? @ -[Acute femoral neck fracture Acute, or Chronic, or Acute on Chronic? @ -[default] Uncomplicated (without systemic symptoms) or Complicated (systemic symptoms)? @ -[Uncomplicated Side effects of treatment? @ -[No] Exacerbation, Progression, or Severe Exacerbation? @ -[No] Poses a threat to life or bodily function? How? (Chest pain, [place], [place], pneumonia, PE, COPD, DKA, ARF, appy, cholecystitis, CVA, Diverticulitis, Homicidal, Suicidal, threat to staff... and all critical care pts) @ -[No] - Lab Data Result diagrams: 05/13/23 06:15 05/12/23 07:02 Lab Results 05/10/23 05/10/23 05/10/23 Range/Units 22:33 22:33 22:33 WBC 7.2 (3.8-10.6) k/uL RBC 4.02 L (4.30-5.90) m/uL Hgb 12.0 L (13.0-17.5) gm/dL Hct 35.6 L (39.0-53.0) % MCV 88.5 (80.0-100.0) fL MCH 30.0 (25.0-35.0) pg MCHC 33.9 (31.0-37.0) g/dL RDW 13.6 (11.5-15.5) % Plt Count 204 (150-450) k/uL MPV 7.9 Neutrophils % 80 % Lymphocytes % 10 % Monocytes % 6 % Eosinophils % 2 % Basophils % 1 % Neutrophils # 5.7 (1.3-7.7) k/uL Lymphocytes # 0.7 L (1.0-4.8) k/uL Monocytes # 0.4 (0-1.0) k/uL Eosinophils # 0.1 (0-0.7) k/uL Basophils # 0.0 (0-0.2) k/uL PT 10.8 (10.0-12.5) sec INR 1.0 (<1.2) APTT 19.8 L (22.0-30.0) sec Sodium 133 L (137-145) mmol/L Potassium 4.2 (3.5-5.1) mmol/L Chloride 97 L (98-107) mmol/L Carbon Dioxide 31 H (22-30) mmol/L Anion Gap 5 mmol/L BUN 17 (9-20) mg/dL Creatinine 0.84 (0.66-1.25) mg/dL Est GFR (CKD-EPI)AfAm >90 (>60 ml/min/1.73 sqM) Est GFR (CKD-EPI)NonAf 88 (>60 ml/min/1.73 sqM) Glucose 131 H (74-99) mg/dL Calcium 8.3 L (8.4-10.2) mg/dL Total Bilirubin 0.3 (0.2-1.3) mg/dL AST 19 (17-59) U/L ALT 13 (4-49) U/L Alkaline Phosphatase 68 (38-126) U/L Troponin I (0.000-0.034) ng/mL Total Protein 5.9 L (6.3-8.2) g/dL Albumin 3.3 L (3.5-5.0) g/dL 05/10/23 Range/Units 22:33 WBC (3.8-10.6) k/uL RBC (4.30-5.90) m/uL Hgb (13.0-17.5) gm/dL Hct (39.0-53.0) % MCV (80.0-100.0) fL MCH (25.0-35.0) pg MCHC (31.0-37.0) g/dL RDW (11.5-15.5) % Plt Count (150-450) k/uL MPV Neutrophils % % Lymphocytes % % Monocytes % % Eosinophils % % Basophils % % Neutrophils # (1.3-7.7) k/uL Lymphocytes # (1.0-4.8) k/uL Monocytes # (0-1.0) k/uL Eosinophils # (0-0.7) k/uL Basophils # (0-0.2) k/uL PT (10.0-12.5) sec INR (<1.2) APTT (22.0-30.0) sec Sodium (137-145) mmol/L Potassium (3.5-5.1) mmol/L Chloride (98-107) mmol/L Carbon Dioxide (22-30) mmol/L Anion Gap mmol/L BUN (9-20) mg/dL Creatinine (0.66-1.25) mg/dL Est GFR (CKD-EPI)AfAm (>60 ml/min/1.73 sqM) Est GFR (CKD-EPI)NonAf (>60 ml/min/1.73 sqM) Glucose (74-99) mg/dL Calcium (8.4-10.2) mg/dL Total Bilirubin (0.2-1.3) mg/dL AST (17-59) U/L ALT (4-49) U/L Alkaline Phosphatase (38-126) U/L Troponin I <0.012 (0.000-0.034) ng/mL Total Protein (6.3-8.2) g/dL Albumin (3.5-5.0) g/dL - EKG Data -: EKG Interpreted by Me EKG shows normal: sinus rhythm, intervals (Normal), QRS complexes (Possible old anterolateral infarct) Rate: normal (60 bpm) Disposition Clinical Impression: Fall, Fracture, humerus, neck, Fracture of femoral neck, COPD exacerbation Disposition: ADMITTED IP TO THIS HOSP Condition: Fair Is patient prescribed a controlled substance at d/c from ED?: No
[2023-05-10] MEDS ORDERED: SODIUM CHLORIDE 0.9% 1,000 ML IV STA (22:50)
[2023-05-10] MEDS ORDERED: fentaNYL (PF) 50 MCG/ML 2 ML AMP IVP STA (22:51)
[2023-05-10 23:01] LABS: Basophils % (A) 1 %; Eosinophils # (A) 0.1 k/uL (0-0.7); Eosinophils % (A) 2 %; HCT 35.6 % (39.0-53.0); Lymphocytes # (A) 0.7 k/uL (1.0-4.8); Lymphocytes % (A) 10 %; MCHC 33.9 g/dL (31.0-37.0); MCV 88.5 fL (80.0-100.0); Mean Platelet Volume 7.9; Monocytes # (A) 0.4 k/uL (0-1.0); Monocytes % (A) 6 %; Neutrophils # (A) 5.7 k/uL (1.3-7.7); Neutrophils % (A) 80 %; Platelet Count 204 k/uL (150-450); RBC 4.02 m/uL (4.30-5.90); RDW 13.6 % (11.5-15.5); WBC 7.2 k/uL (3.8-10.6)
[2023-05-10 23:18] LABS: Prothrombin Time 10.8 sec (10.0-12.5)
[2023-05-10 23:39] LABS: Partial Thromboplastin Time 19.8 sec (22.0-30.0)
--- NOTE | 2023-05-10 23:40 | CT ---
EXAM: CT Head Without Intravenous Contrast CLINICAL HISTORY: ITS.REASON CT Reason: fall injury TECHNIQUE: Axial computed tomography images of the head/brain without intravenous contrast. CTDI is 45.2 mGy and DLP is 1071 mGy-cm. This CT exam was performed using one or more of the following dose reduction techniques: automated exposure control, adjustment of the mA and/or kV according to patient size, and/or use of iterative reconstruction technique. COMPARISON: 05/02/2022. FINDINGS: Brain: Small to moderate sized chronic hygromas. No hemorrhage. No acute intracranial pathology is detected. Midline shift: Midline anatomy is unremarkable. Ventricles: Unremarkable. No ventriculomegaly. Bones/joints: Calvarium is unremarkable. No acute fracture. Soft tissues: Unremarkable. Vasculature: Atherosclerotic disease. Sinuses: Moderate to severe left maxillary sinusitis. Mild chronic ethmoid sinusitis. Mastoid air cells: Presumed post surgical changes and opacification of the left mastoid air cells, unchanged from 05/02/2022. Correlation with history is advised. Other findings: Age-related changes. IMPRESSION: 1. Age-related changes. 2. Chronic hygromas. 3. No acute intracranial pathology. 4. If there is concern for etiology such as early acute lacunar infarcts, MRI imaging of the brain with diffusion-weighted sequences should be good 5. Presumed post surgical changes about the left mastoid air cells which are opacified similar to the study of 05/02/2022. Clinical correlation is advised to EXAM: CT Cervical Spine Without Intravenous Contrast CLINICAL HISTORY: ITS.REASON CT Reason: fall injury TECHNIQUE: Axial computed tomography images of the cervical spine without intravenous contrast. CTDI is 10.7 mGy and DLP is 345.5 mGy-cm. This CT exam was performed using one or more of the following dose reduction techniques: automated exposure control, adjustment of the mA and/or kV according to patient size, and/or use of iterative reconstruction technique. COMPARISON: No previous studies. FINDINGS: Vertebrae: There is osteopenia. There is a normal relationship of C1 and C2. Dextroscoliosis. Visualized thoracic vertebral bodies are unremarkable. Transaxial images of the cervical spine reveals multilevel posterior facet hypertrophy and disc osteophyte complexes. No acute fracture. Discs/spinal canal/neural foramina: Mild to moderate degenerative disc disease of the cervical spine. No spinal canal stenosis. Soft tissues: Unremarkable. Lung apices: Mild COPD and scarring at the lung apices are evident. IMPRESSION: 1. Advanced degenerative disc disease of the cervical spine. 2. No acute injury to the cervical spine is detected.
--- NOTE | 2023-05-10 23:42 | XR ---
EXAM: XR Pelvis Complete, 3 or More Views CLINICAL HISTORY: ITS.REASON XR Reason: fall injury TECHNIQUE: Frontal and lateral or oblique views of the pelvis. COMPARISON: No previous studies. FINDINGS: Bones/joints: Acute basicervical fracture of the proximal right femur is noted with varus angulation. Moderate osteoarthritic changes about the right hip joint. Common iliac stent graft are noted in place. No dislocation. Soft tissues: Soft tissues are unremarkable. Vasculature: Atherosclerotic disease. IMPRESSION: 1. Acute basicervical fracture of the proximal right femur with varus angulation. 2. Surgical consultation is highly advised.
--- NOTE | 2023-05-10 23:43 | XR ---
EXAM: XR Right Humerus, 2 or More Views CLINICAL HISTORY: ITS.REASON XR Reason: fall injury TECHNIQUE: Frontal and lateral views of the right humerus. COMPARISON: No previous studies. FINDINGS: Bones/joints: Acute mildly comminuted fracture of the surgical neck of the proximal right humerus is noted. Right shoulder joint remains in normal anatomic position. Humerus is otherwise unremarkable. Osteopenia. No dislocation. Soft tissues: Soft tissues are unremarkable. IMPRESSION: 1. Acute nondisplaced fracture of the surgical neck of the proximal right humerus. 2. Surgical consultation is highly advised.
--- NOTE | 2023-05-10 23:44 | XR ---
EXAM: XR Chest, 1 View CLINICAL HISTORY: ITS.REASON XR Reason: fall injury TECHNIQUE: Frontal view of the chest. COMPARISON: 01/08/2023. FINDINGS: Lungs: Unremarkable. No consolidation. Pleural space: Unremarkable. No pneumothorax. No pleural effusions. Heart: There is cardiomegaly. Mediastinum: Unremarkable. Normal mediastinal contour. Bones/joints: Osteopenia. No acute fracture. Soft tissues: Soft tissues are unremarkable. Vasculature: Atherosclerotic disease. IMPRESSION: 1. No pneumothorax. 2. No pleural effusions. 3. Atherosclerotic disease.
--- NOTE | 2023-05-10 23:45 | XR ---
EXAM: XR Right Tibia and Fibula, 2 Views CLINICAL HISTORY: ITS.REASON XR Reason: fall injury TECHNIQUE: Frontal and lateral views of the right tibia and fibula. COMPARISON: No previous studies. FINDINGS: Bones/joints: Right knee joint is a normal anatomic position. Ankle mortise is preserved. No right knee joint effusion. No acute fracture or dislocation about the right tibia or fibula. Soft tissues: Unremarkable. No radiopaque foreign body. Vasculature: Atherosclerotic disease. IMPRESSION: No acute fracture or dislocation of the right tibia or fibula.
[2023-05-10] MEDS ORDERED: NALOXONE 0.4 MG/ML 1 ML VIAL IV PRN (23:52)
[2023-05-10] MEDS ORDERED: MAG HYDROX/AL HYDROX/SIMETH 30 ML CUP PO PRN (23:52)
[2023-05-10] MEDS ORDERED: ACETAMINOPHEN TAB 325 MG TAB PO PRN (23:52)
[2023-05-10] MEDS ORDERED: ONDANSETRON 4 MG/2 ML VIAL IVP STA (23:55)
[2023-05-10] MEDS ORDERED: ALBUTEROL HFA INHALER INHALATION PRN (23:58)
[2023-05-11] MEDS: HYDROcodone/APAP 5-325MG 1 EACH TAB PO PRN ×2 (00:21→15:27)
[2023-05-11] MEDS: fentaNYL (PF) 50 MCG/ML 2 ML AMP IVP PRN ×2 (00:23→11:51)
[2023-05-11] MEDS: SODIUM CHLORIDE 0.9% 1,000 ML IV SCH ×2 (00:29→13:13)
[2023-05-11 01:15] LABS: ALT 13 U/L (4-49); AST 19 U/L (17-59); African American GFR (CKD) >90 (>60 ml/min/1.73 sqM); Albumin 3.3 g/dL (3.5-5.0); Alkaline Phosphatase 68 U/L (38-126); Anion Gap 5 mmol/L; Blood Urea Nitrogen 17 mg/dL (9-20); Carbon Dioxide 31 mmol/L (22-30); Chloride 97 mmol/L (98-107); Glucose 131 mg/dL (74-99); Non-African American GFR(CKD) 88 (>60 ml/min/1.73 sqM); Potassium 4.2 mmol/L (3.5-5.1); Sodium 133 mmol/L (137-145); Total Bilirubin 0.3 mg/dL (0.2-1.3); Total Protein 5.9 g/dL (6.3-8.2)
[2023-05-11 01:16] LABS: Calcium 8.3 mg/dL (8.4-10.2)
[2023-05-11] MEDS ORDERED: HYDROmorphone 0.5 MG/0.5 ML SYRINGE IVP STA ×2 (02:16→05:11)
[2023-05-11 06:04] LABS: Appearance,Urine Clear (Clear); Bilirubin,Urine Negative (Negative); Blood,Urine Negative (Negative); Color,Urine Yellow; Glucose,Urine (UA) Negative (Negative); Ketones,Urine Negative (Negative); Leukocyte Esterase,Urine Negative (Negative); Nitrite,Urine Negative (Negative); PH, Urine 6.5 (5.0-8.0); Protein,Urine Negative (Negative); Urobilinogen,Urine <2.0 mg/dL (<2.0)
[2023-05-11] MEDS: SYMBICORT 160-4.5 MCG INHALER INHALATION SCH ×2 (08:23→18:29)
[2023-05-11] MEDS: ALBUTEROL NEBULIZED 2.5 MG/3 ML INHALATION PRN ×4 (08:23→18:29)
[2023-05-11] MEDS: lisinopriL 20 MG TAB PO SCH ×2 (09:41→20:15)
[2023-05-11] MEDS: METOPROLOL SUCCINATE (ER) 25 MG TAB.ER.24H PO SCH (09:41)
[2023-05-11] MEDS: FAMOTIDINE 20 MG TAB PO SCH ×2 (09:41→20:15)
[2023-05-11] MEDS: TAMSULOSIN 0.4 MG CAP.ER.24H PO SCH (09:41)
[2023-05-11] MEDS: amLODIPine 5 MG TAB PO SCH ×2 (09:42→20:14)
[2023-05-11] MEDS: PANTOPRAZOLE 40 MG TABLET PO SCH (09:42)
[2023-05-11 11:30] LABS: Basophils % (A) 0 %; Eosinophils % (A) 1 %; HGB 12.1 gm/dL (13.0-17.5); Lymphocytes # (A) 0.5 k/uL (1.0-4.8); Lymphocytes % (A) 9 %; MCH 29.6 pg (25.0-35.0); MCHC 32.8 g/dL (31.0-37.0); MCV 90.3 fL (80.0-100.0); Mean Platelet Volume 7.8; Monocytes # (A) 0.5 k/uL (0-1.0); Monocytes % (A) 8 %; Neutrophils # (A) 5.2 k/uL (1.3-7.7); Neutrophils % (A) 81 %; Platelet Count 180 k/uL (150-450); RDW 13.9 % (11.5-15.5); WBC 6.4 k/uL (3.8-10.6)
[2023-05-11 11:43] LABS: African American GFR (CKD) >90 (>60 ml/min/1.73 sqM); Anion Gap 6 mmol/L; Blood Urea Nitrogen 21 mg/dL (9-20); Calcium 8.3 mg/dL (8.4-10.2); Carbon Dioxide 32 mmol/L (22-30); Chloride 96 mmol/L (98-107); Glucose 116 mg/dL (74-99); Non-African American GFR(CKD) >90 (>60 ml/min/1.73 sqM); Potassium 4.6 mmol/L (3.5-5.1); Sodium 134 mmol/L (137-145)
--- NOTE | 2023-05-11 12:34 | XR ---
EXAMINATION TYPE: XR ankle limited 2 views RT DATE OF EXAM: 05/11/2023 Comparison: None Clinical History: 72-year-old male pain after fall, assess for break Findings: Limited crosstable images. Small plantar heel spur. There is some cortical undulation of the distal f ibula that may reflect sequela of an old injury. No acute fracture is seen. Ankle mortise appears yo ssly congruent on these 2 views. Impression: Limited crosstable images. Query old injury of the lateral malleolus. No acute osseous abnormality se en on these 2 views.
--- NOTE | 2023-05-11 12:37 | CT ---
EXAMINATION TYPE: CT hip RT wo con DATE OF EXAM: 05/11/2023 COMPARISON: Radiograph 05/10/2023 HISTORY: 72-year-old male Eval right hip fx TECHNIQUE: Contiguous axial scanning of the right hip without IV contrast. Coronal and sagittal recon structions performed. 3-D reconstructions generated on a dedicated independent workstation. CT DLP: 581.5 mGycm Automated exposure control for dose reduction was used. FINDINGS: Bilateral common iliac artery stents are present. Sigmoid diverticulosis. Busch catheter in place. Pr ostate gland borderline in size at 4.1 cm. There is a transcervical femoral neck fracture on the right with 90 degrees of anterior apex angulati on and impaction. Underlying moderate degenerative change of the right hip. No additional acute fracture is seen. No additional significant soft tissue abnormality identified. IMPRESSION: TRANSCERVICAL RIGHT FEMORAL NECK FRACTURE WITH IMPACTION AND 90 DEGREES OF ANTERIOR APEX ANGULATION. UNDERLYING MODERATE RIGHT HIP OA.
--- NOTE | 2023-05-11 15:15 | P.HPOR ---
History of Present Illness H&P Date: 05/11/23 Chief Complaint: Right hip fracture, right proximal humerus fracture. This is a 72-year-old male admitted through the emergency department after a fall in a parking lot last evening, sustaining injury to his right hip, right shoulder and right ankle. On exam and x-ray in the emergency department his found to have a femoral neck fracture, a humeral head/neck fracture and a possible nondisplaced distal fibular fracture. He is admitted to our service for surgical intervention and care. He does have a history of COPD and is currently having some mild respiratory distress. Past Medical History Past Medical History: Coronary Artery Disease (CAD), Cancer, COPD, GERD/Reflux, Hearing Disorder / Deafness, Hyperlipidemia, Hypertension, Pneumonia, Prostate Disorder, Vascular Disorder Additional Past Medical History / Comment(s): Laryngeal cancer recently completed radiation treatments, severe COPD, chronic hypoxic and hypercapnic respiratory failure with home O2, resent respiratory failure/vented d/t acc idental opiate overdose, history of autoimmune disease sees Dr. Goins and [facility]- never received specifics about the disease type, aortic aneurysm with repair, thoracolumbar pain/T4 fracture with recent surgery, nephrolithiasis-has passed stones on his own in the past, occasional bilateral leg cramps, left eardrum perforation/[facility] History of Any Multi-Drug Resistant Organisms: Other MDRO Past Surgical History: Appendectomy, Back Surgery, Ear Surgery, Heart Catheterization, Hernia Repair Additional Past Surgical History / Comment(s): 06/29/19 T4 kyphoplasty, Endovascular stent grafting of a abdominal aortic aneurysm. Facial reconstructive surgery. L ear surgery-myringotomy. Umbilical hernia. Colonoscopy-benign polypectomy. R cataract removed with lens. L eye had glass removed and lens placed. Past Anesthesia/Blood Transfusion Reactions: No Reported Reaction Additional Past Anesthesia/Blood Transfusion Reaction / Comment(s): Pt has never recieved blood. Past Psychological History: No Psychological Hx Reported Smoking Status: Current every day smoker Past Alcohol Use History: Occasional Past Drug Use History: None Reported - Past Family History Brother(s) Family Medical History: Cancer, Fibromyalgia Additional Family Medical History / Comment(s): Brother of lung cancer at t he age of 42 yrs. He was a smoker. Sister(s) Family Medical History: Cancer, Fibromyalgia Additional Family Medical History / Comment(s): Sister of lung cancer. She was a smoker. Father Family Medical History: Myocardial Infarction ([place]) Additional Family Medical History / Comment(s): Father at age 75 yrs of a [place] Mother Family Medical History: Cancer Additional Family Medical History / Comment(s): Mother of metastatic cancer (unknown primary) at age 42 yrs. Medications and Allergies Home Medications Medication Instructions Recorded Confirmed Type lisinopriL [Zestril] 20 mg PO BID 03/04/19 05/10/23 History amLODIPine [Norvasc] 5 mg PO BID 06/25/19 05/10/23 History Albuterol Nebulized [Ventolin 2.5 mg INHALATION RT-QID PRN 03/06/20 05/10/23 History Nebulized] Albuterol Sulfate [Ventolin HFA] 2 puff INHALATION RT-QID PRN 03/06/20 05/10/23 History Tamsulosin HCl [Flomax] 0.4 mg PO DAILY 04/11/22 05/10/23 History Aspirin EC [Ecotrin Low Dose] 81 mg PO DAILY #30 tab 04/16/22 05/10/23 Rx Budesonide-Formot 160-4.5 Mcg 2 puff INHALATION RT-BID #1 each 04/16/22 05/10/23 Rx [Symbicort 160-4.5 Mcg Inhaler] Metoprolol Succinate (ER) [Toprol 12.5 mg PO DAILY #30 tab 04/16/22 05/10/23 Rx XL] Omeprazole 20 mg PO DAILY 05/02/22 05/10/23 History Allergies Allergy/AdvReac Type Severity Reaction Status Date / Time Penicillins Allergy Rash/Hives Verified 05/10/23 23:05 gabapentin AdvReac Hallucinati Verified 05/10/23 23:05 ons/AMS morphine AdvReac Confusion Verified 05/10/23 23:05 Physical Examination This is a pleasant 72-year-old male in no acute distress. He is alert and oriented 3. Exam of the head and neck reveal no obvious deformity. He has slight limitation in range of motion of the cervical spine with no pain. Nontender over the cervical spinous processes or paraspinal musculature. Exam of the upper extremities reveals no obvious deformity. There is mild soft tissue swelling about the right shoulder. He has limited motion of the right shoulder secondary to pain. He has full elbow, wrist and finger motion bilaterally. He has tenderness with palpation about the right proximal humerus. Nontender over the left arm. Exam of the lower extremity reveals the right hip is shortened and externally rotated. There is minimal swelling to the leg. He has no swelling over the ankle. He does have pain over the distal fibula and medial ligamentous structures. He is able to move the foot and ankle with some pain. Exam of the left lower extremity is unremarkable. Neurovascular status to the lower extremities is intact. Results X-rays of the pelvis and right hip reveal a femoral neck fracture with di splacement. X-rays of the right shoulder reveal a slightly comminuted humeral head/neck fracture with impaction. X-rays of the right tib-fib reveal findings consistent with a possible nondisplaced distal fibular fracture. Dedicated ankle x-rays are inconclusive. There is a lucency about the distal fibula which may represent a nondisplaced fracture which does correlate with his exam findings. - Labs Labs: Abnormal Lab Results - Last 24 Hours (Table) 05/10/23 05/10/23 05/10/23 Range/Units 22:33 22:33 22:33 RBC 4.02 L (4.30-5.90) m/uL Hgb 12.0 L (13.0-17.5) gm/dL Hct 35.6 L (39.0-53.0) % Lymphocytes # 0.7 L (1.0-4.8) k/uL APTT 19.8 L (22.0-30.0) sec Sodium 133 L (137-145) mmol/L Chloride 97 L (98-107) mmol/L Carbon Dioxide 31 H (22-30) mmol/L BUN (9-20) mg/dL Glucose 131 H (74-99) mg/dL Calcium 8.3 L (8.4-10.2) mg/dL Total Protein 5.9 L (6.3-8.2) g/dL Albumin 3.3 L (3.5-5.0) g/dL 05/11/23 05/11/23 Range/Units 11:09 11:09 RBC 4.10 L (4.30-5.90) m/uL Hgb 12.1 L (13.0-17.5) gm/dL Hct 37.0 L (39.0-53.0) % Lymphocytes # 0.5 L (1.0-4.8) k/uL APTT (22.0-30.0) sec Sodium 134 L (137-145) mmol/L Chloride 96 L (98-107) mmol/L Carbon Dioxide 32 H (22-30) mmol/L BUN 21 H (9-20) mg/dL Glucose 116 H (74-99) mg/dL Calcium 8.3 L (8.4-10.2) mg/dL Total Protein (6.3-8.2) g/dL Albumin (3.5-5.0) g/dL H & H 05/10/23 05/11/23 Range/Units 22:33 11:09 Hgb 12.0 L 12.1 L (13.0-17.5) gm/dL Hct 35.6 L 37.0 L (39.0-53.0) % Coagulation 05/10/23 Range/Units 22:33 INR 1.0 (<1.2) Result Diagrams: 05/11/23 11:09 05/11/23 11:09 Assessment and Plan (1) COPD exacerbation Current Visit: Yes Status: Acute Code(s): J44.1 - CHRONIC OBSTRUCTIVE PULMONARY DISEASE W (ACUTE) EXACERBATION SNOMED Code(s): 478134996 (2) Fall Current Visit: Yes Status: Acute Code(s): W19.XXXA - UNSPECIFIED FALL, INITIAL ENCOUNTER SNOMED Code(s): 1062967 (3) Fracture of femoral neck Current Visit: Yes Status: Acute Code(s): S72.009A - FRACTURE OF UNSP PART OF NECK OF UNSP FEMUR, INIT SNOMED Code(s): 0373660 (4) Fracture, humerus, neck Current Visit: Yes Status: Acute Code(s): S42.213A - UNSP DISP FX OF SURGICAL NECK OF UNSP HUMERUS, INIT SNOMED Code(s): 627831159 (5) Respiratory distress Current Visit: No Status: Acute Code(s): R06.03 - ACUTE RESPIRATORY DISTRESS SNOMED Code(s): 852961095 Plan: The clinical and x-ray findings are discussed with the patient. It is recommended he undergo hemiarthroplasty of the right hip. We also discussed treatment for the proximal humerus at this time will be conservative in a sling. We are planning surgery tomorrow for the hip if he is cleared medically. Regarding the ankle, since he does have significant tenderness we will recommend a boot for immobilization and comfort.
--- NOTE | 2023-05-11 15:47 | P.CNPUL ---
History of Present Illness Consult date: 05/11/23 Reason for consult: COPD History of present illness: On 05/11/2023, I'm seeing this 72-year-old male patient in the emergency department as the patient is known to have COPD and the patient a fall and he sustained a fracture to his right hip, proximal humerus and ankle. The patient was at [facility] since he was in the parking lot and he fell without losing any consciousness. In the emergency department, the patient was diagnosed having a femoral neck fracture, the proximal humeral head/neck fracture and the possible nondisplaced distal ulnar fracture. He was admitted to the hospital. Orthopedic surgery consultation was placed. His COPD is currently inactive and stable. He is known to have advanced COPD and has had previous hospital admission for COPD exacerbation. Denies having any chest pain. No cough or sputum production. No chest episode wheezing. The patient has been maintain on Symbicort on outpatient basis, albuterol updrafts, albuterol HFA and oxygen therapy. The white cell count is at 6.4, hemoglobin is 12.1 and a platelet count is at 180. Normal coagulation profile. BUN is at 21 with a creatinine of 0.7 and sodium levels of 134 with a potassium level of 4.6. Normal LFTs. Normal UA. The chest x-ray shows no evidence of any pneumothorax and the CAT scan of the head showed no evidence of any cervical spine injury and the patient had degenerative disc disease involving the cervical spine. 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 Review of Systems Constitutional: Reports poor appetite, Reports weakness, Reports weight loss Eyes: denies as per HPI, denies blurred vision, denies bulging eye, denies decreased vision, denies diplopia, denies discharge, denies dry eye, denies irritation, denies itching, denies pain, denies photophobia, denies loss of peripheral vision, denies loss of vision, denies tunnel vision/blind spots Ears: deny: decreased hearing, ear discharge, earache, tinnitus Ears, nose, mouth and throat: Reports hoarseness Breasts: absent: as per HPI, gynecomastia Cardiovascular: Reports decreased exercise tolerance, Reports dyspnea on exertion Respiratory: No symptoms of shortness of breath reported this point in time. He is known to have chronic exertional dyspnea. Gastrointestinal: Reports as per HPI Genitourinary: Reports as per HPI Musculoskeletal: Reports as per HPI Musculoskeletal: , right hip pain, ankle pain and arm pain Integumentary: Reports as per HPI Neurological: Reports as per HPI Psychiatric: Reports as per HPI Endocrine: Reports as per HPI Hematologic/Lymphatic: Reports as per HPI Allergic/Immunologic: Reports as per HPI Past Medical History Past Medical History: Coronary Artery Disease (CAD), Cancer, COPD, GERD/Reflux, Hearing Disorder / Deafness, Hyperlipidemia, Hypertension, Pneumonia, Prostate Disorder, Vascular Disorder Additional Past Medical History / Comment(s): Laryngeal cancer recently completed radiation treatments, severe COPD, chronic hypoxic and hypercapnic respiratory failure with home O2, resent respiratory failure/vented d/t accidental opiate overdose, history of autoimmune disease sees Dr. Goins and [facility]-never received specifics about the disease type, aortic aneurysm with repair, thoracolumbar pain/T4 fracture with recent surgery, nephrolithiasis-has passed stones on his own in the past, occasional bilateral leg cramps, left eardrum perforation/[facility] History of Any Multi-Drug Resistant Organisms: Other MDRO Past Surgical History: Appendectomy, Back Surgery, Ear Surgery, Heart Catheterization, Hernia Repair Additional Past Surgical History / Comment(s): 06/29/19 T4 kyphoplasty, Endovascular stent grafting of a abdominal aortic aneurysm. Facial reconstructive surgery. L ear surgery-myringotomy. Umbilical hernia. Colonoscopy-benign polypectomy. R cataract removed with lens. L eye had glass removed and lens placed. Past Anesthesia/Blood Transfusion Reactions: No Reported Reaction Additional Past Anesthesia/Blood Transfusion Reaction / Comment(s): Pt has never recieved blood. Past Psychological History: No Psychological Hx Reported Smoking Status: Current every day smoker Past Alcohol Use History: Occasional Past Drug Use History: None Reported - Past Family History Brother(s) Family Medical History: Cancer, Fibromyalgia Additional Family Medical History / Comment(s): Brother of lung cancer at the age of 42 yrs. He was a smoker. Sister(s) Family Medical History: Cancer, Fibromyalgia Additional Family Medical History / Comment(s): Sister of lung cancer. She was a smoker. Father Family Medical History: Myocardial Infarction ([place]) Additional Family Medical History / Comment(s): Father at age 75 yrs of a [place] Mother Family Medical History: Cancer Additional Family Medical History / Comment(s): Mother of metastatic cancer (unknown primary) at age 42 yrs. Medications and Allergies Home Medications Medication Instructions Recorded Confirmed Type lisinopriL [Zestril] 20 mg PO BID 03/04/19 05/10/23 History amLODIPine [Norvasc] 5 mg PO BID 06/25/19 05/10/23 History Albuterol Nebulized [Ventolin 2.5 mg INHALATION RT-QID PRN 03/06/20 05/10/23 History Nebulized] Albuterol Sulfate [Ventolin HFA] 2 puff INHALATION RT-QID PRN 03/06/20 05/10/23 History Tamsulosin HCl [Flomax] 0.4 mg PO DAILY 04/11/22 05/10/23 History Aspirin EC [Ecotrin Low Dose] 81 mg PO DAILY #30 tab 04/16/22 05/10/23 Rx Budesonide-Formot 160-4.5 Mcg 2 puff INHALATION RT-BID #1 each 04/16/22 05/10/23 Rx [Symbicort 160-4.5 Mcg Inhaler] Metoprolol Succinate (ER) [Toprol 12.5 mg PO DAILY #30 tab 04/16/22 05/10/23 Rx XL] Omeprazole 20 mg PO DAILY 05/02/22 05/10/23 History Allergies Allergy/AdvReac Type Severity Reaction Status Date / Time Penicillins Allergy Rash/Hives Verified 05/10/23 23:05 gabapentin AdvReac Hallucinati Verified 05/10/23 23:05 ons/AMS morphine AdvReac Confusion Verified 05/10/23 23:05 Physical Exam Vitals: Vital Signs Temp Pulse Resp BP Pulse Ox 05/11/23 11:39 82 18 140/77 94 L 05/11/23 11:27 72 05/11/23 11:18 72 05/11/23 08:35 67 05/11/23 08:23 67 18 95 05/11/23 06:22 98.6 F 86 18 102/61 98 05/10/23 23:06 60 20 125/72 90 L 05/10/23 21:24 90 L 05/10/23 21:08 97.3 F L 61 132/71 91 L Intake and Output 05/10/23 05/11/23 05/11/23 22:59 06:59 14:59 Other: Weight 74.843 kg General Appearance no diaphoresis, no respiratory distress, speech not interrupted by breaths, no dyspnea, no pallor, not cachectic, well nourished, appears well, the patient is currently on 2 L of oxygen by nasal cannula. He goldman s obvious hoarseness. Head exam was generally normal. There was no scleral icterus or corneal arcus. Mucous membranes were moist. HEENT no pursed lip breathing, no jugular venous distention, no mucous membrane cyanosis, no perioral cyanosis, mallampati classification: class 1 Chest no barrel chest, no retractions, no sternocleidomastoid muscle contractions, no supraclavicular retractions, no intercostal retractions, there is marked. decreased air movement, along with prolonged expiratory wheezing, decreased air movement Heart no right ventricular heave, no distant heart sounds, no s3 gallop GI bowel sounds: hyperactive (borborygmi), bowel sounds: diminished or absent Extremities no cyanosis, no clubbing, no edema Neurologic no decreased mental status, no somnolence, no confusion Examination of the skin revealed no evidence of significant rashes, suspicious appearing nevi or other concerning lesions. Examination of the skeletal system shows that the patient has right lower extremity hip is shortened and externally rotated. Minimal warmth and swelling in the right lower extremity and left lower extremity. He has pain over the distal fibula and is able to move his foot and ankle. Neurovascularly intact in lower extremities. The patient also has no obvious deformities the right upper extremity. The patient has limited range of motion of the right shoulder, normal movement of the fingers and the hand. Results - Laboratory Findings CBC and BMP: 05/11/23 11:09 05/11/23 11:09 PT/INR, D-dimer PT 10.8 sec (10.0-12.5) 05/10/23 22:33 INR 1.0 (<1.2) 05/10/23 22:33 Abnormal lab findings: Abnormal Labs 05/10/23 05/10/23 05/10/23 22:33 22:33 22:33 RBC 4.02 L Hgb 12.0 L Hct 35.6 L Lymphocytes # 0.7 L APTT 19.8 L Sodium 133 L Chloride 97 L Carbon Dioxide 31 H BUN Glucose 131 H Calcium 8.3 L Total Protein 5.9 L Albumin 3.3 L 05/11/23 05/11/23 11:09 11:09 RBC 4.10 L Hgb 12.1 L Hct 37.0 L Lymphocytes # 0.5 L APTT Sodium 134 L Chloride 96 L Carbon Dioxide 32 H BUN 21 H Glucose 116 H Calcium 8.3 L Total Protein Albumin - Diagnostic Findings Chest x-ray: image reviewed Assessment and Plan Plan: Fall Right femoral neck fracture Right proximal humeral head/neck fracture No acute fracture/dislocation of the right tibia/fibula severe oxygen dependent COPD with an FEV1 of 34% of predicted. Chronic hypoxic respiratory failure Chronic hypercapnic respiratory failure secondary to COPD Laryngeal cancer completed a total of 21 sessions of radiation therapy Previous hospitalization for accidental opiate overdose requiring intubation and mechanical ventilation Abdominal aortic aneurysm History of BPH Hyperlipidemia Coronary artery disease with nonocclusive multivessel CAD Heartburn Hoarseness secondary to above Chronic constipation post enema and a component of urinary retention Plan Overall pulmonary status is stable. We'll resume home medications. We'll prov margie oxygen therapy to maintain saturation above 90%. We'll provide patient's in the spirometer. No contraindication for surgery under general anesthesia as the patient is going to require a hemiarthroplasty of the right hip Management of the right proximal humeral fracture is conservatively with a sling. Cardiac there is trace to be given separately. We'll continue to follow.
[2023-05-11] MEDS: HYDROmorphone 1 MG/ML 1 ML SYRINGE IVP PRN ×2 (16:49→21:20)
--- NOTE | 2023-05-11 18:45 | P.CONS ---
History of Present Illness - Reason for Consult Consult date: 05/11/23 Medical management - Chief Complaint Fall/right shoulder and hip pain - History of Present Illness 72-year-old male patient in the emergency department as the patient is known to have COPD and the patient a fall and he sustained a fracture to his right hip, proximal humerus and ankle. The patient was at [facility] since he was in the parking lot and he fell without losing any consciousness. In the emergency department, the patient was diagnosed having a femoral neck fracture, the proximal humeral head/neck fracture and the possible nondisplaced distal ulnar fracture. He was admitted to the hospital. The white cell count is at 6.4, hemoglobin is 12.1 and a platelet count is at 180. Normal coagulation profile. BUN is at 21 with a creatinine of 0.7 and sodium levels of 134 with a potassium level of 4.6. Normal LFTs. Normal UA. The chest x-ray shows no evidence of any pneumothorax and the CAT scan of the head showed no evidence of any cervical spine injury and the patient had deg enerative disc disease involving the cervical spine. 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 -- Patient reports shortness of breath and was felt to be in mild COPD exacerbation - Patient is admitted for further evaluation by pulmonary service and for surgical clearance - Orthopedic surgery on board and planning to take patient to OR once cleared by pulmonology Review of Systems REVIEW OF SYSTEMS: CONSTITUTIONAL: No fever, no malaise, no fatigue. HEENT: No recent visual problems or hearing problems. Denied any sore throat. CARDIOVASCULAR: No chest pain, orthopnea, PND, no palpitations, no syncope. PULMONARY: No shortness of breath, no cough, no hemoptysis. GASTROINTESTINAL: No diarrhea, no nausea, no vomiting, no abdominal pain. NEUROLOGICAL: No headaches, no weakness, no numbness. HEMATOLOGICAL: Denies any bleeding or petechiae. GENITOURINARY: Denies any burning micturition, frequency, or urgency. MUSCULOSKELETAL/RHEUMATOLOGICAL: Denies any joint pain, swelling, or any muscle pain. ENDOCRINE: Denies any polyuria or polydipsia. The rest of the 14-point review of systems is negative. Past Medical History Past Medical History: Coronary Artery Disease (CAD), Cancer, COPD, GERD/Reflux, Hearing Disorder / Deafness, Hyperlipidemia, Hypertension, Pneumonia, Prostate Disorder, Vascular Disorder Additional Past Medical History / Comment(s): Laryngeal cancer recently completed radiation treatments, severe COPD, chronic hypoxic and hypercapnic respiratory failure with home O2, resent respiratory failure/vented d/t accidental opiate overdose, history of autoimmune disease sees Dr. Goins and [facility]-never received specifics about the disease type, aortic aneurysm with repair, thoracolumbar pain/T4 fracture with recent surgery, nephrolithiasis-has passed stones on his own in the past, occasional bilateral leg cramps, left eardrum perforation/TRIBAL History of Any Multi-Drug Resistant Organisms: Other MDRO Past Surgical History: Appendectomy, Back Surgery, Ear Surgery, Heart Catheterization, Hernia Repair Additional Past Surgical History / Comment(s): 06/29/19 T4 kyphoplasty, Endovascular stent grafting of a abdominal aortic aneurysm. Facial reconstructive surgery. L ear surgery-myringotomy. Umbilical hernia. Colonoscopy-benign polypectomy. R cataract removed with lens. L eye had glass removed and lens placed. Past Anesthesia/Blood Transfusion Reactions: No Reported Reaction Additional Past Anesthesia/Blood Transfusion Reaction / Comm: Pt has never recieved blood. Past Psychological History: No Psychological Hx Reported Smoking Status: Current every day smoker Past Alcohol Use History: Occasional Past Drug Use History: None Reported - Past Family History Brother(s) Family Medical History: Cancer, Fibromyalgia Additional Family Medical History / Comment(s): Brother of lung cancer at the age of 42 yrs. He was a smoker. Sister(s) Family Medical History: Cancer, Fibromyalgia Additional Family Medical History / Comment(s): Sister of lung cancer. She was a smoker. Father Family Medical History: Myocardial Infarction ([place]) Additional Family Medical History / Comment(s): Father at age 75 yrs of a [place] Mother Family Medical History: Cancer Additional Family Medical History / Comment(s): Mother of metastatic cancer (unknown primary) at age 42 yrs. Medications and Allergies Home Medications Medication Instructions Recorded Confirmed Type lisinopriL [Zestril] 20 mg PO BID 03/04/19 05/10/23 History amLODIPine [Norvasc] 5 mg PO BID 06/25/19 05/10/23 History Albuterol Nebulized [Ventolin 2.5 mg INHALATION RT-QID PRN 03/06/20 05/10/23 History Nebulized] Albuterol Sulfate [Ventolin HFA] 2 puff INHALATION RT-QID PRN 03/06/20 05/10/23 History Tamsulosin HCl [Flomax] 0.4 mg PO DAILY 04/11/22 05/10/23 History Aspirin EC [Ecotrin Low Dose] 81 mg PO DAILY #30 tab 04/16/22 05/10/23 Rx Budesonide-Formot 160-4.5 Mcg 2 puff INHALATION RT-BID #1 each 04/16/22 05/10/23 Rx [Symbicort 160-4.5 Mcg Inhaler] Metoprolol Succinate (ER) [Toprol 12.5 mg PO DAILY #30 tab 04/16/22 05/10/23 Rx XL] Omeprazole 20 mg PO DAILY 05/02/22 05/10/23 History Allergies Allergy/AdvReac Type Severity Reaction Status Date / Time Penicillins Allergy Rash/Hives Verified 05/10/23 23:05 gabapentin AdvReac Hallucinati Verified 05/10/23 23:05 ons/AMS morphine AdvReac Confusion Verified 05/10/23 23:05 Physical Exam Vitals: Vital Signs Temp Pulse Resp BP Pulse Ox 05/11/23 08:35 67 05/11/23 08:23 67 18 95 05/11/23 06:22 98.6 F 86 18 102/61 98 05/10/23 23:06 60 20 125/72 90 L 05/10/23 21:24 90 L 05/10/23 21:08 97.3 F L 61 132/71 91 L Intake and Output 05/10/23 05/11/23 05/11/23 22:59 06:59 14:59 Other: Weight 74.843 kg General appearance: alert, in no apparent distress Head exam: Present: atraumatic, normocephalic Eye exam: Present: normal appearance, PERRL, EOMI. Absent: scleral icterus, conjunctival injection Neck exam: Present: tenderness, other (Shouldn't is in cervical collar) Respiratory exam: Present: wheezes, chest wall tenderness. Absent: respiratory distress, rales, rhonchi, stridor, accessory muscle use Cardiovascular Exam: Present: regular rate, normal rhythm, normal heart sounds. Absent: systolic murmur, diastolic murmur, rubs, gallop GI/Abdominal exam: Present: soft. Absent: distended, tenderness, guarding, rebound, rigid, mass Extremities exam: Present: normal inspection, normal capillary refill. Absent: pedal edema, calf tenderness Back exam: Present: normal inspection. Absent: CVA tenderness (R), CVA tenderness (L), paraspinal tenderness, vertebral tenderness Neurological exam: Present: alert, oriented X3, CN II-XII intact. Absent: motor sensory deficit Skin exam: Present: warm, dry, intact, normal color. Absent: rash Results CBC & Chem 7: 05/11/23 11:09 05/11/23 11:09 Labs: Abnormal Lab Results - Last 24 Hours (Table) 05/10/23 05/10/23 05/10/23 Range/Units 22:33 22:33 22:33 RBC 4.02 L (4.30-5.90) m/uL Hgb 12.0 L (13.0-17.5) gm/dL Hct 35.6 L (39.0-53.0) % Lymphocytes # 0.7 L (1.0-4.8) k/uL APTT 19.8 L (22.0-30.0) sec Sodium 133 L (137-145) mmol/L Chloride 97 L (98-107) mmol/L Carbon Dioxide 31 H (22-30) mmol/L Glucose 131 H (74-99) mg/dL Calcium 8.3 L (8.4-10.2) mg/dL Total Protein 5.9 L (6.3-8.2) g/dL Albumin 3.3 L (3.5-5.0) g/dL Assessment and Plan Assessment: 1. Mechanical Fall/ right femoral neck fracture with right proximal humeral hea d/neck fracture - Patient is evaluated by orthopedic surgery with plans for right hip hemiarthroplasty; conservative treatment recommended for right proximal humeral fracture with a sling 2. Severe COPD; mild exacerbation; patient remains on home inhaler therapy including Ventolin inhaler and Symbicort with Ventolin nebulizer treatments 4 times a day and when necessary; pulmonary service is consulted for further recommendations for possible mild COPD exacerbation 3. Chronic hypoxic/hypercapnic respiratory failure secondary to severe COPD 4. Hyperlipidemia; currently not on any statin therapy 5. Hypertension; metoprolol 12.5 mg daily; amlodipine 5 mg twice a day; lisinopril 20 mg twice a day 6. BPH; Flomax 0.4 mg daily 7. GERD; omeprazole 20 mg daily 8. History of coronary artery disease; nonocclusive multivessel disease; patient reports his last cardiac testing was over 10 years ago; we will consult cardiology for cardiac clearance for surgery DVT prophylaxis SCDs only given possibility of surgical procedure CODE STATUS; full code
[2023-05-11] MEDS: HYDROcodone/APAP 10-325MG 1 EACH TAB PO PRN (20:14)
[2023-05-12] MEDS: HYDROmorphone 1 MG/ML 1 ML SYRINGE IVP PRN ×3 (01:31→15:10)
[2023-05-12] MEDS: SODIUM CHLORIDE 0.9% 1,000 ML IV SCH ×2 (02:20→13:47)
[2023-05-12] MEDS ORDERED: TRANEXAMIC 1,000 MG/100ML-NACL 1,000 MG in SALINE 1 100ML.BAG IVPB PRN (05:00)
[2023-05-12] MEDS: ONDANSETRON 4 MG/2 ML VIAL IVP PRN ×2 (06:51→15:17)
[2023-05-12] MEDS: SYMBICORT 160-4.5 MCG INHALER INHALATION SCH ×2 (08:32→19:16)
[2023-05-12] MEDS: ALBUTEROL NEBULIZED 2.5 MG/3 ML INHALATION PRN ×2 (08:32→15:24)
[2023-05-12 09:30] LABS: Blood Urea Nitrogen 21.6 mg/dL (9.0-27.0); Calcium 8.5 mg/dL (8.7-10.3); Carbon Dioxide 31.6 mmol/L (21.6-31.8); Chloride 98 mmol/L (96-109); Glucose 104 mg/dL (70-110); Potassium 4.8 mmol/L (3.5-5.5); Sodium 137 mmol/L (135-145)
[2023-05-12 09:37] LABS: Basophils # (A) 0.03 X 10*3/uL (0.00-0.10); Basophils % (A) 0.4 %; Eosinophils # (A) 0.03 X 10*3/uL (0.04-0.35); Eosinophils % (A) 0.4 %; HCT 37.6 % (39.6-50.0); HGB 11.7 g/dL (13.0-17.0); Lymphocytes # (A) 0.51 X 10*3/uL (0.90-5.00); Lymphocytes % (A) 6.2 %; MCH 28.8 pg (27.0-32.0); MCHC 31.1 g/dL (32.0-37.0); MCV 92.6 FL (80.0-97.0); Mean Platelet Volume 10.4 FL (9.5-12.2); Monocytes # (A) 0.85 X 10*3/uL (0.20-1.00); Monocytes % (A) 10.3 %; NRBC Per 100 WBC 0 X 10*3/uL (0.00-0.01); Neutrophils # (A) 6.83 X 10*3/uL (1.80-7.70); Neutrophils % (A) 82.2 %; Platelet Count 189 X 10*3/uL (140-440); RBC 4.06 X 10*6/uL (4.40-5.60); RDW 13.7 % (11.5-14.5); WBC 8.29 X 10*3/uL (4.50-10.00)
[2023-05-12] MEDS: lisinopriL 20 MG TAB PO SCH ×2 (09:41→21:20)
[2023-05-12] MEDS: FAMOTIDINE 20 MG TAB PO SCH ×2 (09:41→21:19)
[2023-05-12] MEDS: amLODIPine 5 MG TAB PO SCH ×2 (09:41→21:20)
[2023-05-12] MEDS: TAMSULOSIN 0.4 MG CAP.ER.24H PO SCH (09:46)
[2023-05-12] MEDS: PANTOPRAZOLE 40 MG TABLET PO SCH (09:46)
[2023-05-12] MEDS: METOPROLOL SUCCINATE (ER) 25 MG TAB.ER.24H PO SCH (09:47)
[2023-05-12] MEDS ORDERED: TRANEXAMIC 1,000 MG/100ML-NACL PREMIX BAG ONE (11:42)
[2023-05-12] MEDS ORDERED: ePHEDrine 50 MG/ML 1 ML VIAL ONE (11:42)
[2023-05-12] MEDS ORDERED: PHENYLEPHRINE 10 MG/ML VIAL ONE (11:42)
[2023-05-12] MEDS ORDERED: KETAMINE HCL IN 0.9 % NACL 50 MG/5 ML SYRINGE ONE (11:42)
[2023-05-12] MEDS ORDERED: MIDAZOLAM 2 MG/2 ML VIAL ONE (11:42)
[2023-05-12] MEDS ORDERED: LACTATED RINGERS 1,000 ML IV ONE (11:42)
[2023-05-12] MEDS ORDERED: SODIUM CHLORIDE 0.9% 50 ML with ceFAZolin 2,000 MG IV ONE ×2 (11:42)
[2023-05-12] MEDS ORDERED: VASOPRESSIN 20 UNIT/ML 1 ML VIAL ONE (11:42)
--- NOTE | 2023-05-12 12:24 | P.PN ---
Subjective Progress Note Date: 05/12/23 On 05/11/2023, I'm seeing this 72-year-old male patient in the emergency department as the patient is known to have COPD and the patient a fall and he sustained a fracture to his right hip, proximal humerus and ankle. The patient was at [facility] since he was in the parking lot and he fell without losing any consciousness. In the emergency department, the patient was diagnosed having a femoral neck fracture, the proximal humeral head/neck fracture and the possible nondisplaced distal ulnar fracture. He was admitted to the hospital. Orthopedic surgery consultation was placed. His COPD is currently inactive and stable. He is known to have advanced COPD and has had previous hospital admission for COPD exacerbation. Denies having any chest pain. No cough or sputum production. No chest episode wheezing. The patient has been maintain on Symbicort on outpatient basis, albuterol updrafts, albuterol HFA and oxygen therapy. The white cell count is at 6.4, hemoglobin is 12.1 and a platelet co unt is at 180. Normal coagulation profile. BUN is at 21 with a creatinine of 0.7 and sodium levels of 134 with a potassium level of 4.6. Normal LFTs. Normal UA. The chest x-ray shows no evidence of any pneumothorax and the CAT scan of the head showed no evidence of any cervical spine injury and the patient had degenerative disc disease involving the cervical spine. 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 On 05/12/2023, the patient is clinically stable. The patient has having no pain issues. No interval worsening shortness of breath. The patient is going to undergo a right hip ORIF today. Pulmonary clearance was given. No other new complaints otherwise for now. Awaiting a cardiac clearance also. Hemoglobin is at 11.7, BUN is at 21 with a creatinine of 0.8. Sodium level is at 137. He is maintained on oxygen at 5 L with a pulse ox of 90%. Objective - Vital Signs Vital signs: Vital Signs Temp 98.3 F 05/12/23 07:05 Pulse 70 05/12/23 08:43 Resp 22 05/12/23 07:05 BP 95/61 05/12/23 07:05 Pulse Ox 90 L 05/12/23 08:32 FiO2 Intake & Output 05/11/23 05/12/23 05/12/23 18:59 06:59 18:59 Output Total 200 350 Balance -200 -350 Weight 74.843 kg Output: Urine 200 350 Other: Voiding Method Indwelling Catheter Indwelling Catheter - Exam General Appearance no diaphoresis, no respiratory distress, speech not interrupted by breaths, no dyspnea, no pallor, not cachectic, well nourished, appears well, the patient is currently on 2 L of oxygen by nasal cannula. He has obvious hoarseness. Head exam was generally normal. There was no scleral icterus or corneal arcus. Mucous membranes were moist. HEENT no pursed lip breathing, no jugular venous distention, no mucous membrane cyanosis, no perioral cyanosis, mallampati classification: class 1 Chest no barrel chest, no retractions, no sternocleidomastoid muscle contractions, no supraclavicular retractions, no intercostal retractions, there is marked. decreased air movement, along with prolonged expiratory wheezing, decreased air movement Heart no right ventricular heave, no distant heart sounds, no s3 gallop GI bowel sounds: hyperactive (borborygmi), bowel sounds: diminished or absent Extremities no cyanosis, no clubbing, no edema Neurologic no decreased mental status, no somnolence, no confusion Examination of the skin revealed no evidence of significant rashes, suspicious appearing nevi or other concerning lesions. Examination of the skeletal system shows that the patient has right lower extremity hip is shortened and externally rotated. Minimal warmth and swelling in the right lower extremity and left lower extremity. He has pain over the distal fibula and is able to move his foot and ankle. Neurovascularly intact in lower extremities. The patient also has no obvious deformities the right upper extremity. The patient has limited range of motion of the right shoulder, normal movement of the fingers and the hand. - Labs CBC & Chem 7: 05/12/23 07:02 05/12/23 07:02 Labs: Abnormal Lab Results - Last 24 Hours (Table) 05/11/23 05/11/23 05/12/23 Range/Units 11:09 11: 07:02 RBC 4.10 L 4.06 L (4.30-5.90) m/uL Hgb 12.1 L 11.7 L (13.0-17.5) gm/dL Hct 37.0 L 37.6 L (39.0-53.0) % MCHC 31.1 L (32.0-37.0) g/dL Lymphocytes # 0.5 L 0.51 L (1.0-4.8) k/uL Eosinophils # 0.03 L (0.04-0.35) X 10*3/uL Sodium 134 L (137-145) mmol/L Chloride 96 L (98-107) mmol/L Carbon Dioxide 32 H (22-30) mmol/L BUN 21 H (9-20) mg/dL BUN/Creatinine Ratio (12.00-20.00) Ratio Glucose 116 H (74-99) mg/dL Calcium 8.3 L (8.4-10.2) mg/dL 05/12/23 Range/Units 07:02 RBC (4.30-5.90) m/uL Hgb (13.0-17.5) gm/dL Hct (39.0-53.0) % MCHC (32.0-37.0) g/dL Lymphocytes # (1.0-4.8) k/uL Eosinophils # (0.04-0.35) X 10*3/uL Sodium (137-145) mmol/L Chloride (98-107) mmol/L Carbon Dioxide (22-30) mmol/L BUN (9-20) mg/dL BUN/Creatinine Ratio 27.00 H (12.00-20.00) Ratio Glucose (74-99) mg/dL Calcium 8.5 L (8.4-10.2) mg/dL Assessment and Plan Plan: Fall Right femoral neck fracture Right proximal humeral head/neck fracture No acute fracture/dislocation of the right tibia/fibula severe oxygen dependent COPD with an FEV1 of 34% of predicted. Chronic hypoxic respiratory failure Chronic hypercapnic respiratory failure secondary to COPD Laryngeal cancer completed a total of 21 sessions of radiation therapy Previous hospitalization for accidental opiate overdose requiring intubation and mechanical ventilation Abdominal aortic aneurysm History of BPH Hyperlipidemia Coronary artery disease with nonocclusive multivessel CAD Heartburn Hoarseness secondary to above Chronic constipation post enema and a component of urinary retention Plan Overall pulmonary status is stable. We'll resume home medications. We'll provide oxygen therapy to maintain saturation above 90%. We'll provide patient's in the spirometer. We'll add some Solu-Medrol for postoperative bronchospasm wheezing. Patient will be placed on Solu-Medrol 40 mg every 8 hours No contraindication for surgery under general anesthesia as the patient is going to require a hemiarthroplasty of the right hip Management of the right proximal humeral fracture is conservatively with a sling. Cardiac there is trace to be given separately. We'll continue to follow.
--- NOTE | 2023-05-12 12:48 | P.CRDCN ---
History of Present Illness Consult date: 05/12/23 Requesting physician: Evin Baer Reason for Consult (text): cardiac clearance Chief complaint: s/p fall History of present illness: This is a pleasant 72-year-old gentleman who follows with Dr. Jack in the office. He has a history of mild triple-vessel CAD by heart catheterization in 2017, hypertension, severe COPD. Presented to the emergency department after sustaining a fall. He was in the parking lot at [facility] and turned quickly, twisting his ankle and fell to the ground onto his right knee hip and shoulder. He was found to have femoral neck fracture, humeral head/neck fracture and possible nondisplaced distal fibular fracture. We've been asked to see the patient for cardiac clearance preoperatively. He is scheduled to undergo right hip hemiarthroplasty today. He has been cleared by pulmonary. The patient has significant shortness of breath but stable he is unable to walk one flight of stairs without requiring nebulizer treatment and/or rescue inhaler. He chroni blu sleeps on 5 or 6 pillows every night for the last year and a half. Most recent available echocardiogram from April 2022 showed normal LV systolic function. He is unsure when his last stress test was but most recent available stress test done here in May 2020 revealed fixed defects at the cardiac apex and inferior wall but no evidence of stress-induced ischemia. He's had no complaints of chest discomfort. EKG shows sinus mechanism with no evidence of ischemia. Laboratory values this morning showed a hemoglobin of 11.7, sodium 137, potassium 4.8, BUN 21.6, creatinine 0.8 troponin 1 on admission was less than 0.012. Upon examination patient is resting in bed with the head of bed elevated. He complains of a cough that is persistent and chronic, productive. Complains of stable lower extremity edema, mild. Denies any complaints of chest discomfort. He denies any dizziness, lightheadedness or syncope. Denies palpitations. Past Medical History Past Medical History: Coronary Artery Disease (CAD), Cancer, COPD, GERD/Reflux, Hearing Disorder / Deafness, Hyperlipidemia, Hypertension, Pneumonia, Prostate Disorder, Vascular Disorder Additional Past Medical History / Comment(s): Laryngeal cancer recently completed radiation treatments, severe COPD, chronic hypoxic and hypercapnic respiratory failure with home O2, resent respiratory failure/vented d/t accidental opiate overdose, history of autoimmune disease sees Dr. Goins and [facility]-never received specifics about the disease type, aortic aneurysm with repair, thoracolumbar pain/T4 fracture with recent surgery, nephrolithiasis-has passed stones on his own in the past, occasional bilateral leg cramps, left eardrum perforation/[place] History of Any Multi-Drug Resistant Organisms: Other MDRO Past Surgical History: Appendectomy, Back Surgery, Ear Surgery, Heart Catheterization, Hernia Repair Additional Past Surgical History / Comment(s): 06/29/19 T4 kyphoplasty, Endovascular stent grafting of a abdominal aortic aneurysm. Facial reconstructive surgery. L ear surgery-myringotomy. Umbilical hernia. Colonoscopy-benign polypectomy. R cataract removed with lens. L eye had glass removed and lens placed. Past Anesthesia/Blood Transfusion Reactions: No Reported Reaction Additional Past Anesthesia/Blood Transfusion Reaction / Comment(s): Pt has never recieved blood. Past Psychological History: No Psychological Hx Reported Smoking Status: Current every day smoker Past Alcohol Use History: Occasional Past Drug Use History: None Reported - Past Family History Brother(s) Family Medical History: Cancer, Fibromyalgia Additional Family Medical History / Comment(s): Brother of lung cancer at the age of 42 yrs. He was a smoker. Sister(s) Family Medical History: Cancer, Fibromyalgia Additional Family Medical History / Comment(s): Sister of lung cancer. She was a smoker. Father Family Medical History: Myocardial Infarction (VT) Additional Family Medical History / Comment(s): Father at age 75 yrs of a VT Mother Family Medical History: Cancer Additional Family Medical History / Comment(s): Mother of metastatic cancer (unknown primary) at age 42 yrs. Medications and Allergies Home Medications Medication Instructions Recorded Confirmed Type lisinopriL [Zestril] 20 mg PO BID 03/04/19 05/10/23 History amLODIPine [Norvasc] 5 mg PO BID 06/25/19 05/10/23 History Albuterol Nebulized [Ventolin 2.5 mg INHALATION RT-QID PRN 03/06/20 05/10/23 History Nebulized] Albuterol Sulfate [Ventolin HFA] 2 puff INHALATION RT-QID PRN 03/06/20 05/10/23 History Tamsulosin HCl [Flomax] 0.4 mg PO DAILY 04/11/22 05/10/23 History Aspirin EC [Ecotrin Low Dose] 81 mg PO DAILY #30 tab 04/16/22 05/10/23 Rx Budesonide-Formot 160-4.5 Mcg 2 puff INHALATION RT-BID #1 each 04/16/22 05/10/23 Rx [Symbicort 160-4.5 Mcg Inhaler] Metoprolol Succinate (ER) [Toprol 12.5 mg PO DAILY #30 tab 04/16/22 05/10/23 Rx XL] Omeprazole 20 mg PO DAILY 05/02/22 05/10/23 History Allergies Allergy/AdvReac Type Severity Reaction Status Date / Time Penicillins Allergy Rash/Hives Verified 05/10/23 23:05 gabapentin AdvReac Hallucinati Verified 05/10/23 23:05 ons/AMS morphine AdvReac Confusion Verified 05/10/23 23:05 Physical Exam Vitals: Vital Signs Temp Pulse Pulse Pulse Pulse Resp BP 05/12/23 08:43 70 05/12/23 08:32 70 05/12/23 07:05 98.3 F 70 22 05/12/23 01:20 97.6 F 64 18 05/11/23 19:49 97.7 F 61 05/11/23 18:38 65 05/11/23 18:30 70 05/11/23 15:48 69 05/11/23 15:38 69 05/11/23 15:35 98 F 69 19 05/11/23 14:12 64 18 109/57 05/11/23 13:12 65 18 134/80 05/11/23 11:39 82 18 140/77 05/11/23 11:27 72 05/11/23 11:18 72 BP Pulse Ox 05/12/23 08:43 05/12/23 08:32 90 L 05/12/23 07:05 95/61 90 L 05/12/23 01:20 105/68 93 L 05/11/23 19:49 117/75 97 05/11/23 18:38 05/11/23 18:30 05/11/23 15:48 05/11/23 15:38 05/11/23 15:35 130/77 96 05/11/23 14:12 98 05/11/23 13:12 97 05/11/23 11:39 94 L 05/11/23 11:27 05/11/23 11:18 Intake and Output 05/11/23 05/12/23 05/12/23 22:59 06:59 14:59 Output Total 200 350 Balance -200 -350 Output: Urine 200 350 Other: Voiding Method Indwelling Catheter Indwelling Catheter Weight 74.843 kg PHYSICAL EXAMINATION: This is a 72-year-old male in no apparent distress at the time of my examination. VITAL SIGNS: Reviewed HEENT: Head is atraumatic, normocephalic. Pupils are equal, round. Sclerae anicteric. Conjunctivae are clear. Mucous membranes of the mouth are moist. Neck is supple. There is no elevated jugular venous pressure. No carotid bruit is heard. CHEST EXAMINATION: Lungs reveal scattered rhonchi and expiratory wheezing throughout. Respirations even and nonlabored. HEART EXAMINATION: Heart regular, positive S1 and S2. No S3. No S4. No clicks, rubs or murmurs. ABDOMEN: Soft, nontender. Bowel sounds are heard. No organomegaly noted. EXTREMITIES: 2+ peripheral pulses with evidence of trace to mild peripheral edema. NEUROLOGIC EXAMINATION: Patient is awake, alert and oriented x3. Results 05/12/23 07:02 05/12/23 07:02 CBC 05/11/23 05/12/23 Range/Units 11: 07:02 WBC 6.4 8.29 (3.8-10.6) k/uL RBC 4.10 L 4.06 L (4.30-5.90) m/uL Hgb 12.1 L 11.7 L (13.0-17.5) gm/dL Hct 37.0 L 37.6 L (39.0-53.0) % Plt Count 180 189 (150-450) k/uL Comprehensive Metabolic Panel 05/11/23 05/12/23 Range/Units 11: 07:02 Sodium 134 L 137 (137-145) mmol/L Potassium 4.6 4.8 (3.5-5.1) mmol/L Chloride 96 L 98 (98-107) mmol/L Carbon Dioxide 32 H 31.6 (22-30) mmol/L BUN 21 H 21.6 (9-20) mg/dL Creatinine 0.74 0.8 (0.66-1.25) mg/dL Glucose 116 H 104 (74-99) mg/dL Calcium 8.3 L 8.5 L (8.4-10.2) mg/dL Current Medications Generic Name Dose Route Start Last Admin Trade Name Freq PRN Reason Stop Dose Admin Acetaminophen 650 mg 05/10/23 23:52 Acetaminophen Tab 325 Mg Tab PO Q6HR PRN Mild Pain or Fever > 100.5 Hydrocodone Bitart/Acetaminophen 1 each 05/11/23 15:32 05/11/23 20:14 Hydrocodone/Apap 10-325mg 1 Each Tab PO 1 each Q6HR PRN Administration Pain Al Hydroxide/Mg Hydroxide 15 ml 05/10/23 23:52 Mag Hydrox/Al Hydrox/Simeth 30 Ml Cup PO Q6HR PRN Indigestion Albuterol Sulfate 2.5 mg 05/10/23 23:58 05/12/23 08:32 Albuterol Nebulized 2.5 Mg/3 Ml INHALATION 2.5 mg RT-QID PRN Administration Shortness Of Breath Amlodipine Besylate 5 mg 05/11/23 09:00 05/12/23 09:41 Amlodipine 5 Mg Tab PO Not Given BID RAF Budesonide/Formoterol Fumarate 2 puff 05/11/23 08:00 05/12/23 08:32 Symbicort 160-4.5 Mcg Inhaler INHALATION 2 puff RT-BID RAF Administration Famotidine 20 mg 05/11/23 09:00 05/12/23 09:41 Famotidine 20 Mg Tab PO Not Given BID RAF Hydromorphone HCl 1 mg 05/11/23 15:31 05/12/23 06:43 Hydromorphone 1 Mg/Ml 1 Ml Syringe IVP 1 mg Q4HR PRN Administration Pain Sodium Chloride 1,000 mls @ 75 mls/hr 05/10/23 23:45 05/12/23 02:20 Saline 0.9% IV 75 mls/hr .[id number] RAF Administration Lisinopril 20 mg 05/11/23 09:00 05/12/23 09:41 Lisinopril 20 Mg Tab PO Not Given BID RAF Metoprolol Succinate 12.5 mg 05/11/23 09:00 05/12/23 09:47 Metoprolol Succinate (Er) 25 Mg Tab.Er.24h PO Not Given DAILY RAF Naloxone HCl 0.2 mg 05/10/23 23:52 Naloxone 0.4 Mg/Ml 1 Ml Vial IV Q2M PRN Opioid Reversal Ondansetron HCl 4 mg 05/10/23 23:52 05/12/23 06:51 Ondansetron 4 Mg/2 Ml Vial IVP 4 mg Q8HR PRN Administration Nausea And Vomiting Pantoprazole Sodium 40 mg 05/11/23 09:00 05/12/23 09:46 Pantoprazole 40 Mg Tablet PO Not Given DAILY RAF Tamsulosin HCl 0.4 mg 05/11/23 09:00 05/12/23 09:46 Tamsulosin 0.4 Mg Cap.Er.24h PO Not Given DAILY RAF Intake and Output 05/11/23 05/12/23 05/12/23 22:59 06:59 14:59 Output Total 200 350 Balance -200 -350 Output: Urine 200 350 Other: Voiding Method Indwelling Catheter Indwelling Catheter Weight 74.843 kg 05/12/23 07:02 05/12/23 07:02 Assessment and Plan Assessment: #1 status post fall #2 right femoral neck fracture, awaiting surgery #3 right humeral neck fracture #4 mild CAD #5 hypertension, currently hypotensive #6 severe COPD, followed by pulmonary Plan: From cardiology perspective patient has intermediate risk predictors due to advanced age and inability to meet a 4 MET demand, but there are no absolute contraindication to undergo surgery under general anesthesia. We would recommend preop echocardiogram. We will follow the patient perioperatively and provide further recommendations accordingly. CLEANER TOUCH UP WORKER note has been reviewed, I agree with a documented findings and plan of care. Patient was seen and examined.
--- NOTE | 2023-05-12 13:21 | P.OP ---
Date of Procedure: 05/12/23 Procedure(s) Performed: PREOPERATIVE DIAGNOSIS: Right hip femoral neck fracture POSTOPERATIVE DIAGNOSIS: Right hip femoral neck fracture OPERATION: Right hip cemented unipolar hemiarthroplasty. ANESTHESIA: Spinal ESTIMATED BLOOD LOSS: 100 ml. SHIRT MAKER: Mayte Wilks PA-C (assistance with: patient positioning, retraction, exposure, hemostasis, leg positioning, implantation, irrigation, closure, dressing) COMPLICATIONS: None apparent. COMPONENTS IMPLANTED: [employer] Polarstem cemented femoral stem; unipolar femoral head; neck extension augments as needed. INDICATIONS: Adam is a 72 year old male with a history of falling and sustaining a right femoral neck fracture, right shoulder proximal humerus fracture, and a nondisplaced ankle fracture. I have recommended surgical treatment of the hip with a cemented unipolar hemiarthroplasty. Functional demand is low and his pulmonary status is poor. He has been cleared by pulmonary with an elevated risk, but the fracture needs to be addressed expeditiously. I have discussed this procedure in detail and explained the pote ial risks and complications as being inclusive of, but not limited to: Bleeding, infection, scarring, discomfort, blood vessel and/or nerve damage, limb length inequality, gait disturbance, blood clot, pulmonary embolism or worsening of pulmonary condition, , and other risks. The consent form has been signed. PROCEDURE: After appropriate consent was obtained, the patient was taken to the operating room and placed in supine position. Spinal anesthetic was administered and after confirmation of adequate anesthesia, the patient was placed into the lateral decubitus position with the affected side up. Care was taken to make sure that all pressure points were adequately padded and a Carlos hip positioner was utilized for positioning. The hip was prepped and draped in the usual aseptic fashion using a combination of Chloraprep and alcohol. [place]oban drape was used for the case and the patient received intravenous antibiotics prior to the incision. 1 g intravenous tranexamic acid was administered around the time of the prepping and draping, and another 1 g was administered at the time of closure. The incision was created directly over the greater trochanter and carried slightly posteriorly for a posterior approach to the hip. The incision was then deepened down to subcutaneous tissue and fascia mone. Fascia mone was split in line with the incision and split proximally along the fibers of the gluteus hamilton. The underlying fibers of the muscle were teased apart using finger dissection and bleeding vessels were picked up and coagulated. Retractor was then placed posteriorly consisting of a blunt Anastasiia. The short external rotators and capsule were exposed and good visualization of the attachment of the external rotators to the femur was established. The short external rotators and capsule were released using electrocautery from their femoral attachments. A hockey stick shaped incision was created in the capsule. Joint fluid and hemarthrosis was evacuated and the patient's hip was internally rotated to expose the fracture site. The femoral neck cut was created approximately 1 cm superior to the lesser trochanter using a reciprocating saw. The femoral head and neck fragment was removed and visualization and palpation of the acetabular vault showed intact hyaline cartilage with no bone exposure or significant degeneration. Attention was then directed back to the proximal femur. Retractors were placed around the proximal femur and box osteotome was used followed by canal finder and trochanteric reamer. Cylindrical reaming was performed. Progressive broach ing was then performed starting with a #10 broach and progressing final size, in a position of 10-15 degrees anteversion. [place] anteversion was within 5 degrees of stem position. The final size broach had excellent fit and fill of the patient's metaphysis and diaphysis. Calcar planing was performed. Trial reduction was then performed starting with appropriately sized femoral head and various neck extensions to evaluate stability, limb length equality, and soft tissue tension. Once these parameters were satisfactory, the corresponding final components were then called for. Trial components were removed. The femoral canal was sized for the centralizer and cement plug. Once the cement plug had been inserted distal to the planned length of the femoral component, the canal was pulse lavaged and brushed to remove any unstable bone. It was then dried with a lap sponge. Cement was mixed under vacuum conditions to decrease porosity and inserted into a cement gun. Distal centralizer was placed onto the femoral component with a bit of cement. The cement was allowed to reach a slightly doughy consistency and then the canal was filled retrograde with the cement gun. Thumb pressurization was performed three times. The femoral component was then inserted with the previously determined degree of anteversion. Excess cement was removed before it hardened completely. The femoral head was then impacted onto the Nicole taper. Blood and debris were removed from the acetabular socket and the hip was then reduced and checked for stability, limb length and soft tissue tension. These parameters were found to be satisfactory; the wound was then thoroughly irrigated with normal saline. Final hemostasis was obtained using electrocautery. Closure of the capsule was performed meticulously using #3 Vicryl suture. Four [id number] sutures were placed in the posterior capsule along with repair of the external rotators. The fascia mone was then repaired using combination of #3 Vicryl suture in interrupted fashion and Quill in running fashion. 2-0 Vicryl suture was used for the subcutaneous tissues and 3-0 Quill for the skin. Dermabond tape was then applied. The patient tolerated the procedure well. There were no complications and the wound bed was dry and there was no need for drain placement. Sterile dressing was then applied and the patient was carefully removed from the operating room table, placed on the stretcher and was taken to the recovery room in stable condition. Sponge and needle counts were correct.
[2023-05-12] MEDS ORDERED: NALOXONE 0.4 MG/ML 1 ML VIAL IV PRN (13:36)
[2023-05-12] MEDS ORDERED: HYDROcodone/APAP 5-325MG 1 EACH TAB PO PRN ×2 (13:36)
[2023-05-12] MEDS ORDERED: MAGNESIUM HYDROXIDE 2,400 MG/30 ML CUP PO PRN (13:36)
[2023-05-12] MEDS ORDERED: HYDROmorphone 0.5 MG/0.5 ML SYRINGE IVP PRN ×2 (13:36)
[2023-05-12] MEDS ORDERED: TEMAZEPAM 15 MG CAP PO PRN (13:36)
[2023-05-12] MEDS: methylPREDNISolone SOD SUCCI 40 MG/ML 1 ML VIAL IV SCH (15:11)
--- NOTE | 2023-05-12 15:23 | XR ---
EXAMINATION TYPE: XR Hip Limited RT DATE OF EXAM: 05/12/2023 2:06 PM CLINICAL INDICATION:Male, 72 years old with history of Status post hip surgery, assess surgical align ment; [facility] COMPARISON: None. TECHNIQUE: Single portable frontal view of the right hip obtained postop FINDINGS: Post hip arthroplasty changes, hardware appears intact and normally aligned. No evidence of fracture or abnormal perihardware lucency. Postoperative changes of the soft tissues with subcutaneo us gas. No unexpected radiopaque foreign body. IMPRESSION: Status post hip arthroplasty, without evidence of complication.
--- NOTE | 2023-05-12 15:41 | CT ---
EXAMINATION TYPE: CT shoulder RT wo con DATE OF EXAM: 05/11/2023 COMPARISON: Radiograph 05/10/2023 HISTORY: 72-year-old male eval prox humerus fx TECHNIQUE: Contiguous axial scanning of the right shoulder without IV contrast. Coronal and sagittal reconstructions performed. 3-D reconstructions generated on a dedicated workstation. CT DLP: 432.2 mGycm Automated exposure control for dose reduction was used. FINDINGS: There is a comminuted fracture of the proximal humerus. While fractures involving the surgical neck a nd greater tuberosity, this appears to be a two-part fracture with 1.4 cm of impaction and 1.3 cm of anterior displacement. 6 mm of medial displacement. There is anterior apex angulation. The greater tu berosity component is only mildly displaced by 6 mm and results in a 5 mm articular surface step-off along the superior humeral head articular surface. Otherwise, the glenohumeral joint itself remains intact. Mild degenerative change AC joint. Large caliber to the visualized right main pulmonary artery 3.0 cm may reflect underlying pulmonary a rterial hypertension. There is a small right pleural effusion present. IMPRESSION: 1. COMMINUTED FRACTURE PROXIMAL RIGHT HUMERUS WITH GREATER TUBEROSITY AND SURGICAL NECK COMPONENTS. 2. THIS APPEARS TO BE A TWO-PART FRACTURE WITH 1.4 CM OF IMPACTION AND 1.3 CM OF ANTERIOR DISPLACEMEN T OF THE SURGICAL NECK COMPONENT. ADDITIONAL 6 MM OF MEDIAL DISPLACEMENT HERE AND OVERALL ANTERIOR AP EX ANGULATION. 3. THE GREATER TUBEROSITY COMPONENT IS ONLY MILDLY DISPLACED BY 6 MM AND RESULTS IN A 5 MM ARTICULAR SURFACE STEP-OFF ALONG THE SUPERIOR HUMERAL HEAD ARTICULAR SURFACE. 4. MILD AC JOINT OA.
[2023-05-12] MEDS: LACTATED RINGERS 1,000 ML IV SCH (16:54)
[2023-05-12] MEDS: HYDROcodone/APAP 10-325MG 1 EACH TAB PO PRN (17:30)
[2023-05-12] MEDS ORDERED: ALPRAZolam 0.25 MG TAB PO PRN (18:18)
[2023-05-12] MEDS: HYDROmorphone 0.5 MG/0.5 ML SYRINGE IVP PRN (21:18)
[2023-05-12] MEDS: ASPIRIN 81 MG PO SCH (21:19)
[2023-05-12] MEDS: SENNOSIDES-DOCUSATE SODIUM 1 EACH TAB PO SCH (21:19)
--- NOTE | 2023-05-12 22:58 | XR ---
EXAM: XR Abdomen, 2 Views CLINICAL HISTORY: ITS.REASON XR Reason: N/V TECHNIQUE: Frontal view of the abdomen/pelvis with upright view of the abdomen. COMPARISON: No relevant prior studies available. FINDINGS: There is a small infiltrate at the left lung base. Status post aortobiiliac stent graft placement. Intraperitoneal space: No free air. Gastrointestinal tract: Unremarkable. No dilation. Bones/joints: Status post right hip arthroplasty. No acute fracture. IMPRESSION: No evidence of acute intra-abdominal pathology.
[2023-05-13] MEDS: methylPREDNISolone SOD SUCCI 40 MG/ML 1 ML VIAL IV SCH ×4 (00:01→23:24)
[2023-05-13] MEDS: LACTATED RINGERS 1,000 ML IV SCH ×3 (00:11→17:46)
[2023-05-13] MEDS: ONDANSETRON 4 MG/2 ML VIAL IVP PRN ×2 (00:16→08:57)
[2023-05-13] MEDS: SODIUM CHLORIDE 0.9% 1,000 ML IV SCH ×2 (02:40→17:46)
[2023-05-13] MEDS: HYDROcodone/APAP 10-325MG 1 EACH TAB PO PRN ×3 (05:55→21:04)
--- NOTE | 2023-05-13 05:57 | P.PN ---
Subjective Progress Note Date: 05/12/23 72-year-old male patient in the emergency department as the patient is known to have COPD and the patient a fall and he sustained a fracture to his right hip, proximal humerus and ankle. The patient was at [facility] since he was in the parking lot and he fell without losing any consciousness. In the emergency department, the patient was diagnosed having a femoral neck fracture, the proximal humeral head/neck fracture and the possible nondisplaced distal ulnar fracture. He was admitted to the hospital. The white cell count is at 6.4, hemoglobin is 12.1 and a platelet count is at 180. Normal coagulation profile. BUN is at 21 with a creatinine of 0.7 and sodium levels of 134 with a potassium level of 4.6. Normal LFTs. Normal UA. The chest x-ray shows no evidence of any pneumothorax and the CAT scan of the head showed no evidence of any cervical spine injury and the patient had degenerative disc disease involving the cervical spine. No acute TIMBER HEWER process. -- Patient reports shortness of breath and was felt to be in mild COPD exacerbation - Patient is admitted for further evaluation by pulmonary service and for surgical clearance - Orthopedic surgery on board and planning to take patient to OR once cleared by pulmonology Objective - Vital Signs Vital signs: Vital Signs Temp 98.3 F 05/12/23 07:05 Pulse 70 05/12/23 08:43 Resp 22 05/12/23 07:05 BP 95/61 05/12/23 07:05 Pulse Ox 90 L 05/12/23 08:32 FiO2 Intake & Output 05/11/23 05/12/23 05/12/23 18:59 06:59 18:59 Output Total 200 350 Balance -200 -350 Weight 74.843 kg Output: Urine 200 350 Other: Voiding Method Indwelling Catheter Indwelling Catheter - Exam General appearance: alert, in no apparent distress Head exam: Present: atraumatic, normocephalic Eye exam: Present: normal appearance, PERRL, EOMI. Absent: scleral icterus, conjunctival injection Neck exam: Present: tenderness, other (Shouldn't is in cervical collar) Respiratory exam: Present: wheezes, chest wall tenderness. Absent: respiratory distress, rales, rhonchi, stridor, accessory muscle use Cardiovascular Exam: Present: regular rate, normal rhythm, normal heart sounds. Absent: systolic murmur, diastolic murmur, rubs, gallop GI/Abdominal exam: Present: soft. Absent: distended, tenderness, guarding, rebound, rigid, mass Extremities exam: Present: normal inspection, normal capillary refill. Absent: pedal edema, calf tenderness Back exam: Present: normal inspection. Absent: CVA tenderness (R), CVA tenderness (L), paraspinal tenderness, vertebral tenderness Neurological exam: Present: alert, oriented X3, CN II-XII intact. Absent: motor sensory deficit Skin exam: Present: warm, dry, intact, normal color. Absent: rash - Labs CBC & Chem 7: 05/12/23 07:02 05/12/23 07:02 Labs: Abnormal Lab Results - Last 24 Hours (Table) 05/11/23 05/11/23 05/12/23 Range/Units 11:09 11:09 07:02 RBC 4.10 L 4.06 L (4.30-5.90) m/uL Hgb 12.1 L 11.7 L (13.0-17.5) gm/dL Hct 37.0 L 37.6 L (39.0-53.0) % MCHC 31.1 L (32.0-37.0) g/dL Lymphocytes # 0.5 L 0.51 L (1.0-4.8) k/uL Eosinophils # 0.03 L (0.04-0.35) X 10*3/uL Sodium 134 L (137-145) mmol/L Chloride 96 L (98-107) mmol/L Carbon Dioxide 32 H (22-30) mmol/L BUN 21 H (9-20) mg/dL BUN/Creatinine Ratio (12.00-20.00) Ratio Glucose 116 H (74-99) mg/dL Calcium 8.3 L (8.4-10.2) mg/dL 05/12/23 Range/Units 07:02 RBC (4.30-5.90) m/uL Hgb (13.0-17.5) gm/dL Hct (39.0-53.0) % MCHC (32.0-37.0) g/dL Lymphocytes # (1.0-4.8) k/uL Eosinophils # (0.04-0.35) X 10*3/uL Sodium (137-145) mmol/L Chloride (98-107) mmol/L Carbon Dioxide (22-30) mmol/L BUN (9-20) mg/dL BUN/Creatinine Ratio 27.00 H (12.00-20.00) Ratio Glucose (74-99) mg/dL Calcium 8.5 L (8.4-10.2) mg/dL Assessment and Plan Assessment: 1. Mechanical Fall/ right femoral neck fracture with right proximal humeral head/neck fracture - Patient is evaluated by orthopedic surgery with plans for right hip hemia rthroplasty; conservative treatment recommended for right proximal humeral fracture with a sling 2. Severe COPD; mild exacerbation; patient remains on home inhaler therapy including Ventolin inhaler and Symbicort with Ventolin nebulizer treatments 4 times a day and when necessary; pulmonary service is consulted for further recommendations for possible mild COPD exacerbation 3. Chronic hypoxic/hypercapnic respiratory failure secondary to severe COPD 4. Hyperlipidemia; currently not on any statin therapy 5. Hypertension; metoprolol 12.5 mg daily; amlodipine 5 mg twice a day; lisinopril 20 mg twice a day 6. BPH; Flomax 0.4 mg daily 7. GERD; omeprazole 20 mg daily 8. History of coronary artery disease; nonocclusive multivessel disease; patient reports his last cardiac testing was over 10 years ago; we will consult cardiology for cardiac clearance for surgery DVT prophylaxis SCDs only given possibility of surgical procedure CODE STATUS; full code
[2023-05-13] MEDS: SYMBICORT 160-4.5 MCG INHALER INHALATION SCH ×2 (08:49→21:10)
[2023-05-13] MEDS: ALBUTEROL NEBULIZED 2.5 MG/3 ML INHALATION PRN ×2 (08:49→13:09)
[2023-05-13] MEDS: HYDROmorphone 0.5 MG/0.5 ML SYRINGE IVP PRN (08:56)
[2023-05-13] MEDS: FAMOTIDINE 20 MG TAB PO SCH ×2 (08:57→21:02)
[2023-05-13] MEDS: TAMSULOSIN 0.4 MG CAP.ER.24H PO SCH (08:57)
[2023-05-13] MEDS: ASPIRIN 81 MG PO SCH ×2 (08:57→21:04)
[2023-05-13] MEDS: PANTOPRAZOLE 40 MG TABLET PO SCH (08:57)
[2023-05-13] MEDS: amLODIPine 5 MG TAB PO SCH (08:58)
[2023-05-13] MEDS: lisinopriL 20 MG TAB PO SCH ×2 (08:58→21:10)
[2023-05-13] MEDS: METOPROLOL SUCCINATE (ER) 25 MG TAB.ER.24H PO SCH (08:59)
[2023-05-13 09:10] LABS: HCT 33.4 % (39.6-50.0); HGB 10.4 g/dL (13.0-17.0); MCH 29.2 pg (27.0-32.0); MCHC 31.1 g/dL (32.0-37.0); MCV 93.8 FL (80.0-97.0); Mean Platelet Volume 11.5 FL (9.5-12.2); NRBC Per 100 WBC 0 X 10*3/uL (0.00-0.01); Platelet Count 161 X 10*3/uL (140-440); RBC 3.56 X 10*6/uL (4.40-5.60); RDW 13.7 % (11.5-14.5); WBC 7.84 X 10*3/uL (4.50-10.00)
[2023-05-13 09:11] LABS: Basophils # (A) 0.01 X 10*3/uL (0.00-0.10); Basophils % (A) 0.1 %; Eosinophils # (A) 0 X 10*3/uL (0.04-0.35); Eosinophils % (A) 0 %; Lymphocytes # (A) 0.24 X 10*3/uL (0.90-5.00); Lymphocytes % (A) 3.1 %; Monocytes # (A) 0.48 X 10*3/uL (0.20-1.00); Monocytes % (A) 6.1 %; Neutrophils # (A) 7.08 X 10*3/uL (1.80-7.70); Neutrophils % (A) 90.3 %
--- NOTE | 2023-05-13 09:17 | P.PN ---
Subjective Progress Note Date: 05/13/23 Principal diagnosis: Right hip fracture. Status post hemiarthroplasty right hip. Right proximal humerus fracture. Right ankle sprain, possible nondisplaced fracture. This is a 72-year-old male admitted through the emergency department after a fall in a parking lot, sustaining injury to his right hip, right shoulder and right ankle. On exam and x-ray in the emergency department his found to have a femoral neck fracture, a humeral head/neck fracture and a possible nondisplaced distal fibular fracture. He is admitted to our service for surgical intervention and care. He does have a history of COPD and is currently having some mild respiratory distress. 05/13/2023: The patient is postoperative day #1 status post hemiarthroplasty of the right hip. He is complaining of pain to the right shoulder, right hip and right ankle. His cotherapy states that he had significant difficulty getting up to the chair. Vital signs are stable. Objective - Vital Signs Vital signs: Vital Signs Temp 97.9 F 05/13/23 08:00 Pulse 82 05/13/23 09:01 Resp 18 05/13/23 08:00 BP 103/53 05/13/23 08:00 Pulse Ox 93 L 05/13/23 08:49 FiO2 Intake & Output 05/12/23 05/13/23 05/13/23 18:59 06:59 18:59 Intake Total 950 Output Total 500 800 Balance 450 -800 Intake: IV 950 Output: Urine 400 800 Estimated Blood Loss 100 Other: Voiding Method Indwelling Catheter Indwelling Catheter - Exam O2 per nasal cannula. He is currently getting a breathing treatment via mask. Exam of the right shoulder reveals that the sling is intact. He has full finger motion without difficulty or pain. Neurovascular status to the upper extremity is intact. Exam of the lower extremity reveals that his dressing is clean, dry and intact. He has mild soft tissue swelling about the ankle. He is able to wiggle his toes. He does have pain with palpation about the distal fibula and ligamentous structures of the ankle. Neurovascular status to the lower extremities grossly intact. - Labs CBC & Chem 7: 05/12/23 07:02 05/12/23 07:02 Labs: Abnormal Lab Results - Last 24 Hours (Table) 05/12/23 05/12/23 Range/Units 07:02 07:02 RBC 4.06 L (4.40-5.60) X 10*6/uL Hgb 11.7 L (13.0-17.0) g/dL Hct 37.6 L (39.6-50.0) % MCHC 31.1 L (32.0-37.0) g/dL Lymphocytes # 0.51 L (0.90-5.00) X 10*3/uL Eosinophils # 0.03 L (0.04-0.35) X 10*3/uL BUN/Creatinine Ratio 27.00 H (12.00-20.00) Ratio Calcium 8.5 L (8.7-10.3) mg/dL Assessment and Plan (1) COPD exacerbation Current Visit: Yes Status: Acute Code(s): J44.1 - CHRONIC OBSTRUCTIVE PULMONARY DISEASE W (ACUTE) EXACERBATION SNOMED Code(s): 072456676 (2) Fall Current Visit: Yes Status: Acute Code(s): W19.XXXA - UNSPECIFIED FALL, INITIAL ENCOUNTER SNOMED Code(s): 5689918 (3) Fracture of femoral neck Current Visit: Yes Status: Acute Code(s): S72.009A - FRACTURE OF UNSP PART OF NECK OF UNSP FEMUR, INIT SNOMED Code(s): 0893926 (4) Fracture, humerus, neck Current Visit: Yes Status: Acute Code(s): S42.213A - UNSP DISP FX OF SURGICAL NECK OF UNSP HUMERUS, INIT SNOMED Code(s): 516915368 (5) Respiratory distress Current Visit: No Status: Acute Code(s): R06.03 - ACUTE RESPIRATORY DISTRESS SNOMED Code(s): 103661669 Plan: The clinical findings are discussed with the patient. He may be weightbearing a s tolerated to the right lower extremity with a hemiwalker. He likely will need rehab placement.
--- NOTE | 2023-05-13 10:16 | CA ---
Transthoracic Echo Report Name: Adam Olivo Age: 72 Gender: M : 1950 Exam Date: 05/12/2023 11:08 Exam Location: [place] Echo Ht (in): 71 Wt (lb): 165 Ordering Physician: Michelle Hernandez Attending/Referring Phys: [id number], Mary Service Loss Control Consultant Maritza Velarde [facility] Procedure CPT: Indications: pre-op Cardiac Hx: Technical Quality: Technically difficult study Contrast 1: Definity Total Dose (mL): 5 Contrast 2: Total Dose (mL): MEASUREMENTS (Male / Female) Normal Values 2D ECHO LV Diastolic Diameter PLAX 5.6 cm 4.2 - 5.9 / 3.9 - 5.3 cm LV Systolic Diameter PLAX 4.3 cm IVS Diastolic Thickness 1.2 cm 0.6 - 1.0 / 0.6 - 0.9 cm LVPW Diastolic Thickness 1.1 cm 0.6 - 1.0 / 0.6 - 0.9 cm LV Relative Wall Thickness 0.4 LVOT Diameter 2.0 cm M-MODE Aortic Root Diameter MM 3.3 cm LA Systolic Diameter MM 5.3 cm LA Ao Ratio MM 1.6 AV Cusp Separation MM 2.4 cm DOPPLER AV Peak Velocity 136.2 cm/s AV Peak Gradient 7.4 mmHg AV Mean Velocity 92.6 cm/s AV Mean Gradient 3.9 mmHg AV Velocity Time Integral 24.4 cm LVOT Peak Velocity 122.6 cm/s LVOT Peak Gradient 6.0 mmHg LVOT Velocity Time Integral 25.9 cm LVOT Stroke Volume 80.5 cm??? LVOT Stroke Volume Index 41.4 ml/m??? LVOT Cardiac Index 2701.3 cm???/min???m??? AV Area Cont Eq vti 3.3 cm??? AV Area Cont Eq pk 2.8 cm??? Mitral E Point Velocity 60.7 cm/s Mitral A Point Velocity 78.2 cm/s Mitral E to A Ratio 0.8 MV Deceleration Time 268.0 ms LV E' Lateral Velocity 10.4 cm/s Mitral E to LV E' Lateral Ratio 5.9 LV E' Septal Velocity 7.7 cm/s Mitral E to LV E' Septal Ratio 7.9 TR Peak Velocity 292.8 cm/s TR Peak Gradient 34.3 mmHg Right Atrial Pressure 8.0 mmHg Pulmonary Artery Systolic Pressu 42.3 mmHg Right Ventricular Systolic Press 42.3 mmHg FINDINGS Left Ventricle Mildly increased left ventricular wall thickness. Left ventricular cavity size at the upper limits of normal. Low normal left ventricular systolic function. Left ventricular ejection fraction is estimated at 55-60 %. Right Ventricle Moderate right ventricular dilatation. Mild pulmonary hypertension. Right Atrium Severe right atrial dilatation. Left Atrium Left atrial size at the upper limits of normal. Mitral Valve Structurally normal mitral valve. Mild mitral regurgitation.mitral annular calcification. Aortic Valve Trileaflet aortic valve. Aortic valve sclerosis. No aortic regurgitation. Tricuspid Valve Structurally normal tricuspid valve. Mild tricuspid regurgitation. Pulmonic Valve Pulmonic valve not well visualized. Pericardium No pericardial effusion. Aorta Normal size aortic root. CONCLUSIONS Definity ECHO contrast used for improved visualization of the endocardial borders (inadequate visualization of two or more contiguous segments). Normal left ventricle size and systolic function Mild mitral regurgitation Mild tricuspid regurgitation and mild pulmonary hypertension Previewed by: Dr. Antony Jack MD (Electronically Signed) Final Date: 12 May 2023 15:10
--- NOTE | 2023-05-13 11:07 | P.PN ---
Subjective Progress Note Date: 05/13/23 History of present illness: This is a pleasant 72-year-old gentleman who follows with Dr. Jack in the office. He has a history of mild triple-vessel CAD by heart catheterization in 2017, hypertension, severe COPD. Presented to the emergency department after sustaining a fall. He was in the parking lot at [facility] and turned quickly, twisting his ankle and fell to the ground onto his right knee hip and shoulder. He was found to have femoral neck fracture, humeral head/neck fracture and possible nondisplaced distal fibular fracture. We've been asked to see the patient for cardiac clearance preoperatively. He is scheduled to undergo right hip hemiarthroplasty today. He has been cleared by pulmonary. The patient has significant shortness of breath but stable he is unable to walk one flight of stairs without requiring nebulizer treatment and/or rescue inhaler. He chronically sleeps on 5 or 6 pillows every night for the last year and a half. Most recent available echocardiogram from April 2022 showed normal LV systolic function. He is unsure when his last stress test was but most recent available stress test done here in May 2020 revealed fixed defects at the cardiac apex and inferior wall but no evidence of stress-induced ischemia. He's had no complaints of chest discomfort. EKG shows sinus mechanism with no evidence of ischemia. Laboratory values this morning showed a hemoglobin of 11.7, sodium 137, potassium 4.8, BUN 21.6, creatinine 0.8 troponin 1 on admission was less than 0.012. Upon examination patient is resting in bed with the head of bed elevated. He complains of a cough that is persistent and chronic, productive. Complains of stable lower extremity edema, mild. Denies any complaints of chest discomfort. He denies any dizziness, lightheadedness or syncope. Denies palpitations. 05/13 Patient is seen today on the [facility] floor. He underwent surgical intervention yesterday with hemiarthroplasty of the right hip. No surgery is planned for humeral neck fracture. Blood pressure is on the soft side. Heart rate in the 70s and 80s, segs 93% on 8 L. Repeat blood work reveals hemoglobin 10.4. PHYSICAL EXAMINATION: This is a 72-year-old male in no apparent distress at the time of my examination. VITAL SIGNS: Reviewed HEENT: Head is atraumatic, normocephalic. Pupils are equal, round. Sclerae anicteric. Conjunctivae are clear. There is no elevated jugular venous pressure. CHEST EXAMINATION: Lungs reveal scattered rhonchi and expiratory wheezing throughout. Respirations even and nonlabored. HEART EXAMINATION: Heart regular, positive S1 and S2. No S3. No S4. No clicks, rubs or murmurs. ABDOMEN: Soft, nontender. EXTREMITIES: 2+ peripheral pulses with evidence of trace to mild peripheral edema. NEUROLOGIC EXAMINATION: Patient is awake, alert and oriented x3. Assessment: status post fall right femoral neck fracture, awaiting surgery right humeral neck fracture mild CAD hypertension, currently hypotensive severe COPD, followed by pulmonary Plan: Discontinue amlodipine due to soft blood pressures. Okay to continue lisinopril and Toprol-XL with parameters. Further recommendations as patient progresses. HIP HOP DANCER note has been reviewed, I agree with a documented findings and plan of care. Patient was seen and examined. Objective - Vital Signs Vital signs: Vital Signs Temp 97.9 F 05/13/23 08:00 Pulse 82 05/13/23 09:01 Resp 18 05/13/23 08:00 BP 103/53 05/13/23 08:00 Pulse Ox 93 L 05/13/23 08:49 FiO2 Intake & Output 05/12/23 05/13/23 05/13/23 18:59 06:59 18:59 Intake Total 950 Output Total 500 800 Balance 450 -800 Intake: IV 950 Output: Urine 400 800 Estimated Blood Loss 100 Other: Voiding Method Indwelling Catheter Indwelling Catheter - Labs CBC & Chem 7: 05/13/23 06:15 05/12/23 07:02 Labs: Abnormal Lab Results - Last 24 Hours (Table) 05/12/23 05/12/23 Range/Units 07:02 07:02 RBC 4.06 L (4.40-5.60) X 10*6/uL Hgb 11.7 L (13.0-17.0) g/dL Hct 37.6 L (39.6-50.0) % MCHC 31.1 L (32.0-37.0) g/dL Lymphocytes # 0.51 L (0.90-5.00) X 10*3/uL Eosinophils # 0.03 L (0.04-0.35) X 10*3/uL BUN/Creatinine Ratio 27.00 H (12.00-20.00) Ratio Calcium 8.5 L (8.7-10.3) mg/dL
--- NOTE | 2023-05-13 14:58 | P.PN ---
Subjective Progress Note Date: 05/13/23 On 05/11/2023, I'm seeing this 72-year-old male patient in the emergency department as the patient is known to have COPD and the patient a fall and he sustained a fracture to his right hip, proximal humerus and ankle. The patient was at [facility] since he was in the parking lot and he fell without losing any consciousness. In the emergency department, the patient was diagnosed having a femoral neck fracture, the proximal humeral head/neck fracture and the possible nondisplaced distal ulnar fracture. He was admitted to the hospital. Orthopedic surgery consultation was placed. His COPD is currently inactive and stable. He is known to have advanced COPD and has had previous hospital admission for COPD exacerbation. Denies having any chest pain. No cough or sputum production. No chest episode wheezing. The patient has been maintain on Symbicort on outpatient basis, albuterol updrafts, albuterol HFA and oxygen therapy. The white cell count is at 6.4, hemoglobin is 12.1 and a platelet cou nt is at 180. Normal coagulation profile. BUN is at 21 with a creatinine of 0.7 and sodium levels of 134 with a potassium level of 4.6. Normal LFTs. Normal UA. The chest x-ray shows no evidence of any pneumothorax and the CAT scan of the head showed no evidence of any cervical spine injury and the patient had degenerative disc disease involving the cervical spine. No acute LAYER OUT PLATE GLASS process. On 05/12/2023, the patient is clinically stable. The patient has having no pain issues. No interval worsening shortness of breath. The patient is going to undergo a right hip ORIF today. Pulmonary clearance was given. No other new complaints otherwise for now. Awaiting a cardiac clearance also. Hemoglobin is at 11.7, BUN is at 21 with a creatinine of 0.8. Sodium level is at 137. He is maintained on oxygen at 5 L with a pulse ox of 90%. The patient is seen today 05/13/2023 in follow-up on the regular medical floor. He is currently resting fairly comfortably in bed. Awake and alert in no acute distress. He is currently on 8 L high flow nasal cannula. Afebrile. Hemodynamically stable. He is status post right hip cemented unipolar hemiarthroplasty. Postoperative day #1. Computed tomography scan of the right shoulder revealed a comminuted fracture proximal right humerus with greater tuberosity and surgical med components. Currently in a sling. White count 7.8. Hemoglobin 10.4. Platelets 161. He remains on Symbicort, albuterol, Solu- Medrol. Dilaudid alternating with Kapaa for pain control. Objective - Vital Signs Vital signs: Vital Signs Temp 97.9 F 05/13/23 08:00 Pulse 78 05/13/23 13:19 Resp 18 05/13/23 08:00 BP 103/53 05/13/23 08:00 Pulse Ox 93 L 05/13/23 08:49 FiO2 Intake & Output 05/12/23 05/13/23 05/13/23 18:59 06:59 18:59 Intake Total 950 652 Output Total 500 800 300 Balance 450 -800 352 Intake: IV 950 Oral 652 Output: Urine 400 800 300 Estimated Blood Loss 100 Other: Voiding Method Indwelling Catheter Indwelling Catheter Indwelling Catheter - Exam General Appearance: Weak, alert pleasant 72-year-old male, 8 L high flow nasal cannula. He has obvious hoarseness. Head exam was generally normal. There was no scleral icterus or corneal arcus. Mucous membranes were moist. HEENT no pursed lip breathing, no jugular venous distention, no mucous membrane cyanosis, no perioral cyanosis, mallampati classification: class 1 Chest no barrel chest, no retractions, no sternocleidomastoid muscle contractions, no supraclavicular retractions, no intercostal retractions, there is marked. Diminished, along with prolonged expiratory wheezing Heart no right ventricular heave, no distant heart sounds, no s3 gallop GI bowel sounds: Normal bowel sounds: diminished or absent Extremities no cyanosis, no clubbing, no edema Neurologic no decreased mental status, no somnolence, no confusion Examination of the skin revealed no evidence of significant rashes. Examination of the skeletal system shows that the patient has right lower extremity hip seen is dry and intact. Minimal warmth and swelling in the right lower extremity and left lower extremity. He has pain over the distal fibula and is able to move his foot and ankle. Neurovascularly intact in lower extremities. The patient also has no obvious deformities the right upper extremity. The patient has limited range of motion of the right shoulder, normal movement of the fingers and the hand. - Labs CBC & Chem 7: 05/13/23 06:15 05/12/23 07:02 Labs: Abnormal Lab Results - Last 24 Hours (Table) 05/13/23 Range/Units 06:15 RBC 3.56 L (4.40-5.60) X 10*6/uL Hgb 10.4 L (13.0-17.0) g/dL Hct 33.4 L (39.6-50.0) % MCHC 31.1 L (32.0-37.0) g/dL Lymphocytes # 0.24 L (0.90-5.00) X 10*3/uL Eosinophils # 0 L (0.04-0.35) X 10*3/uL Assessment and Plan Assessment: Fall from ground-level, troponin fall, denied loss of consciousness Right femoral neck fracture, status post right hip cemented unipolar hemiarthroplasty. Postoperative day #1 Right proximal humeral head/neck fracture currently in a sling No acute fracture/dislocation of the right tibia/fibula Severe oxygen dependent COPD with an FEV1 of 34% of predicted. Chronic hypoxic respiratory failure Chronic hypercapnic respiratory failure secondary to COPD Laryngeal cancer completed a total of 21 sessions of radiation therapy Previous hospitalization for accidental opiate overdose requiring intubation and mechanical ventilation Abdominal aortic aneurysm History of BPH Hyperlipidemia Coronary artery disease with nonocclusive multivessel CAD Heartburn Hoarseness secondary to above Chronic constipation post enema and a component of urinary retention Plan: The patient was seen and evaluated Labs and medications reviewed Encourage increased use of the incentive spirometer Continue bronchodilators, steroids Continue Dilaudid/Kapaa for pain control Encouraged working with physical therapy Activity per orthopedics We will continue to follow I have personally seen and examined the patient, performed the documentation and the assessment and plan as written. Number of minutes spent on the visit: 10.
--- NOTE | 2023-05-13 20:38 | P.PN ---
Subjective Progress Note Date: 05/13/23 This is a 72-year-old gentleman status post right hip hemiarthroplasty, postop day #1, no surgery is planned at this time regarding humeral neck fracture. Maintaining O2 sats in the 90s on 8 L high flow nasal cannula. Blood pressure soft. CT of right shoulder reported a comminuted fracture proximal right humerus with greater tuberosity and surgical neck components. Wearing sling. Objective - Vital Signs Vital signs: Vital Signs Temp 97.9 F 05/13/23 15:05 Pulse 79 05/13/23 15:05 Resp 18 05/13/23 15:05 BP 89/53 05/13/23 15:05 Pulse Ox 91 L 05/13/23 15:05 FiO2 Intake & Output 05/13/23 05/13/23 05/14/23 06:59 18:59 06:59 Intake Total 652 Output Total 800 300 Balance -800 352 Intake: Oral 652 Output: Urine 800 300 Other: Voiding Method Indwelling Catheter Indwelling Catheter - Exam PHYSICAL EXAM: VITAL SIGNS: [As above] GENERAL: Sitting up in bed, no acute distress,hoarse. HEENT: Normocephalic ,Conjunctivae normal. eyes normal.MMM. NECK: Supple, No JVD. CARDIOVASCULAR: S1, S2 regular.. No murmur RESPIRATION: Scattered rhonchi, prolonged expiratory wheezing with Breath sounds diminished in the bases. ABDOMEN: Soft, nontender . No guarding. no masses palpable. +BS LEGS: Right lower extremity dressing clean dry and intact, trace edema, positive DP pulses PSYCHIATRY: Alert and oriented X3, mood and affect normal. NERVOUS SYSTEM: Cranial N 2-12 grossly normal. Strength and sensation grossly intact.. Skin: Warm and dry, no rash - Labs CBC & Chem 7: 05/13/23 06:15 05/12/23 07:02 Labs: Abnormal Lab Results - Last 24 Hours (Table) 05/13/23 Range/Units 06:15 RBC 3.56 L (4.40-5.60) X 10*6/uL Hgb 10.4 L (13.0-17.0) g/dL Hct 33.4 L (39.6-50.0) % MCHC 31.1 L (32.0-37.0) g/dL Lymphocytes # 0.24 L (0.90-5.00) X 10*3/uL Eosinophils # 0 L (0.04-0.35) X 10*3/uL Assessment and Plan Assessment: Right hip he might arthroplasty secondary to right femoral neck fx, related to fall right humeral neck fracture, wearing a sling currently Acute hypoxic respiratory failure Severe COPD, O2 dependent Chronic hypercapnic respiratory failure secondary to the above Laryngeal cancer, Previous hospitalization for accidental opiate overdose requiring intubation and mechanical ventilation History of hypertension, blood pressures currently soft CAD, AAA BPH Urinary renention secondary to the above Chronic constipation Plan: Continue on current medication regime ,monitoring and symptomatic treatment. Antihypertensives adjusted. Pain management/DVT prophylaxis as per orthopedic surgery. PPI in place for GI prophylaxis. PT/OT. Subacute rehab at discharge as per PT evaluation. The impression and plan of care has been dictated as directed. : I performed a history and examination of this patient, discussed the same with the dictator. I agree with the dictator's note ,documented as a scribe. Any additional findings or plans will be noted.
[2023-05-13] MEDS: SENNOSIDES-DOCUSATE SODIUM 1 EACH TAB PO SCH (21:02)
[2023-05-14 02:36] VITALS: TEMP 98.4
[2023-05-14] MEDS: LACTATED RINGERS 1,000 ML IV SCH (06:56)
[2023-05-14] MEDS: SYMBICORT 160-4.5 MCG INHALER INHALATION SCH (08:53)
[2023-05-14] MEDS: FAMOTIDINE 20 MG TAB PO SCH (09:04)
[2023-05-14] MEDS: PANTOPRAZOLE 40 MG TABLET PO SCH (09:04)
[2023-05-14] MEDS: ASPIRIN 81 MG PO SCH (09:04)
[2023-05-14] MEDS: HYDROcodone/APAP 10-325MG 1 EACH TAB PO PRN (09:04)
[2023-05-14] MEDS: METOPROLOL SUCCINATE (ER) 25 MG TAB.ER.24H PO SCH (09:05)
[2023-05-14] MEDS: lisinopriL 20 MG TAB PO SCH (09:05)
[2023-05-14] MEDS: methylPREDNISolone SOD SUCCI 40 MG/ML 1 ML VIAL IV SCH ×2 (09:05→16:57)
[2023-05-14] MEDS: SODIUM CHLORIDE 0.9% 1,000 ML IV SCH (09:06)
[2023-05-14] MEDS: TAMSULOSIN 0.4 MG CAP.ER.24H PO SCH (09:15)
[2023-05-14 09:25] VITALS: BP 128/68; RESP 19
--- NOTE | 2023-05-14 10:53 | P.PN ---
Subjective Progress Note Date: 05/14/23 History of present illness: This is a pleasant 72-year-old gentleman who follows with Dr. Jack in the office. He has a history of mild triple-vessel CAD by heart catheterization in 2017, hypertension, severe COPD. Presented to the emergency department after sustaining a fall. He was in the parking lot at [facility] and turned quickly, twisting his ankle and fell to the ground onto his right knee hip and shoulder. He was found to have femoral neck fracture, humeral head/neck fracture and possible nondisplaced distal fibular fracture. We've been asked to see the patient for cardiac clearance preoperatively. He is scheduled to undergo right hip hemiarthroplasty today. He has been cleared by pulmonary. The patient has significant shortness of breath but stable he is unable to walk one flight of stairs without requiring nebulizer treatment and/or rescue inhaler. He chronically sleeps on 5 or 6 pillows every night for the last year and a half. Most recent available echocardiogram from April 2022 showed normal LV systolic function. He is unsure when his last stress test was but most recent available stress test done here in May 2020 revealed fixed defects at the cardiac apex and inferior wall but no evidence of stress-induced ischemia. He's had no complaints of chest discomfort. EKG shows sinus mechanism with no evidence of ischemia. Laboratory values this morning showed a hemoglobin of 11.7, sodium 137, potassium 4.8, BUN 21.6, creatinine 0.8 troponin 1 on admission was less than 0.012. Upon examination patient is resting in bed with the head of bed elevated. He complains of a cough that is persistent and chronic, productive. Complains of stable lower extremity edema, mild. Denies any complaints of chest discomfort. He denies any dizziness, lightheadedness or syncope. Denies palpitations. 05/13 Patient is seen today on the [facility] floor. He underwent surgical intervention yesterday with hemiarthroplasty of the right hip. No surgery is planned for humeral neck fracture. Blood pressure is on the soft side. Heart rate in the 70s and 80s, PO 93% on 8 L. Repeat blood work reveals hemoglobin 10.4. 05/14 BP is rising, 128/68. HR 70s. PO 90-94% on 3L. No repeat lab work available at this time. PHYSICAL EXAMINATION: This is a 72-year-old male in no apparent distress at the time of my examination. VITAL SIGNS: Reviewed CHEST EXAMINATION: Lungs reveal scattered rhonchi and expiratory wheezing throughout. Respirations even and nonlabored. HEART EXAMINATION: Heart regular, positive S1 and S2. No S3. No S4. No cl icks, rubs or murmurs. EXTREMITIES: 2+ peripheral pulses with evidence of trace to mild peripheral e jalen. Assessment: status post fall right femoral neck fracture, s/p hemiarthroplasty right humeral neck fracture mild CAD hypertension, currently hypotensive severe COPD, followed by pulmonary Plan: Discontinue amlodipine due to soft blood pressures. Okay to continue lisinopril and Toprol-XL with parameters. Cardiology will sign off this case and follow on an as-needed basis. Please reconsult for any new concerns. Patient may follow-up in the office in one to 2 weeks. FAMILY DENTIST note has been reviewed, I agree with a documented findings and plan of care. Patient was seen and examined. Objective - Vital Signs Vital signs: Vital Signs Temp 98.4 F 05/14/23 01:22 Pulse 73 05/14/23 01:22 Resp 18 05/14/23 01:22 BP 111/60 05/14/23 01:22 Pulse Ox 90 L 05/14/23 08:53 FiO2 Intake & Output 05/13/23 05/14/23 05/14/23 18:59 06:59 18:59 Intake Total 652 Output Total 300 700 Balance 352 -700 Intake: Oral 652 Output: Urine 300 700 Other: Voiding Method Indwelling Catheter Indwelling Catheter - Labs CBC & Chem 7: 05/13/23 06:15 05/12/23 07:02 Labs: Abnormal Lab Results - Last 24 Hours (Table) 05/13/23 Range/Units 06:15 RBC 3.56 L (4.40-5.60) X 10*6/uL Hgb 10.4 L (13.0-17.0) g/dL Hct 33.4 L (39.6-50.0) % MCHC 31.1 L (32.0-37.0) g/dL Lymphocytes # 0.24 L (0.90-5.00) X 10*3/uL Eosinophils # 0 L (0.04-0.35) X 10*3/uL
--- NOTE | 2023-05-14 13:50 | P.DS ---
Providers Date of admission: 05/10/23 23:52 Expected date of discharge: 05/14/23 Attending physician: Rowdy Lundberg Consults: 05/10/23 23:52 Consult Physician Urgent Consulting Provider: Lisa Gonzalez Consult Reason/Comments: COPD patient. Surgical clearance Do you want consulting provider notified?: Yes 05/10/23 23:58 Consult Physician Routine Consulting Provider: Jamie Balderas Consult Reason/Comments: medical management Do you want consulting provider notified?: Yes 05/11/23 18:45 Consult Physician Routine Consulting Provider: Yves Silva Consult Reason/Comments: Cardiac clearance Do you want consulting provider notified?: Yes Primary care physician: Jamie Balderas [facility] Course: This is an 72-year-old male who sustained a fracture of his right hip after a fall. The patient presented for evaluation in the emergency room where x-rays revealed a right femoral neck fracture and right humeral head/neck fracture. After discussion and consideration patient elects to proceed with right hip hemiarthroplasty. The patient is seen preoperatively by Dr. Lundberg and medically cleared for surgery by internal medicine. Patient is admitted to [facility] on 05/10/2023 and right hip hemiarthroplasty is performed on 05/11/2023. The procedure is performed without complication or sequelae. The patient is doing well postoperatively. Patient received a boot for a right ankle sprain as well. Labs and vital signs are stable on day of discharge. Patient was also evaluated by cardiology during this admission. On day of discharge patient's hip incision is healing well. There is minimal erythema. There is no drainage noted at this time. There is minimal soft tissue swelling to the hip and thigh. Patient has full foot and ankle motion without difficulty or pain. Calf is soft and nontender to palpation. Neurovascular status to the right lower extremity is intact. Patient is discharged to rehab in good condition. Please see med rec for accurate list of home medications. Patient Condition at Discharge: Fair Plan - Discharge Summary Discharge Rx Participant: Yes New Discharge Prescriptions: New Aspirin [Adult Low Dose Aspirin EC] 81 mg PO BID #1 tab HYDROcodone/APAP 7.5-325MG [[place] 7.5-325] 1 - 2 tab PO Q6HR PRN #32 tab PRN Reason: Pain Magnesium Hydroxide [Milk of Magnesia] 2,400 mg PO DAILY PRN ml PRN Reason: Constipation Acetaminophen Tab [Tylenol] 650 mg PO Q6HR PRN tab PRN Reason: Mild Pain Or Fever > 100.5 Sennosides-Docusate Sodium [Senokot-S] 1 tab PO BID #60 tablet predniSONE 10 mg PO DIRECTED #30 tab Continue lisinopriL [Zestril] 20 mg PO BID Albuterol Nebulized [Ventolin Nebulized] 2.5 mg INHALATION RT-QID PRN PRN Reason: Shortness Of Breath Albuterol Sulfate [Ventolin HFA] 2 puff INHALATION RT-QID PRN PRN Reason: Shortness Of Breath Tamsulosin HCl [Flomax] 0.4 mg PO DAILY Metoprolol Succinate (ER) [Toprol XL] 12.5 mg PO DAILY #30 tab Aspirin EC [Ecotrin Low Dose] 81 mg PO DAILY #30 tab Omeprazole 20 mg PO DAILY Budesonide-Formot 160-4.5 Mcg [Symbicort 160-4.5 Mcg Inhaler] 2 puff INHALATION RT-BID #1 each Discontinued amLODIPine [Norvasc] 5 mg PO BID Discharge Medication List lisinopriL [Zestril] 20 mg PO BID 03/04/19 [History] Albuterol Nebulized [Ventolin Nebulized] 2.5 mg INHALATION RT-QID PRN 03/06/20 [History] Albuterol Sulfate [Ventolin HFA] 2 puff INHALATION RT-QID PRN 03/06/20 [History] Tamsulosin HCl [Flomax] 0.4 mg PO DAILY 04/11/22 [History] Aspirin EC [Ecotrin Low Dose] 81 mg PO DAILY #30 tab 04/16/22 [Rx] Budesonide-Formot 160-4.5 Mcg [Symbicort 160-4.5 Mcg Inhaler] 2 puff INHALATION RT-BID #1 each 04/16/22 [Rx] Metoprolol Succinate (ER) [Toprol XL] 12.5 mg PO DAILY #30 tab 04/16/22 [Rx] Omeprazole 20 mg PO DAILY 05/02/22 [History] Aspirin [Adult Low Dose Aspirin EC] 81 mg PO BID #1 tab 05/13/23 [Rx] HYDROcodone/APAP 7.5-325MG [[place] 7.5-325] 1 - 2 tab PO Q6HR PRN #32 tab 05/13/23 [Rx] Sennosides-Docusate Sodium [Senokot-S] 1 tab PO BID #60 tablet 05/13/23 [Rx] Acetaminophen Tab [Tylenol] 650 mg PO Q6HR PRN tab 05/14/23 [Rx] Magnesium Hydroxide [Milk of Magnesia] 2,400 mg PO DAILY PRN ml 05/14/23 [Rx] predniSONE 10 mg PO DIRECTED #30 tab 05/14/23 [Rx] Follow up Appointment(s)/Referral(s): Antony Jack MD [STAFF PHYSICIAN] - 1 Week Jamie Balderas DO [Primary Care Provider] - 1 Week (After DC from subacute rehab) [facility] [NON-STAFF] - As Needed (Premium Eqalizer boot) [facility], [NON-STAFF] - As Needed Rowdy Lundberg MD [STAFF PHYSICIAN] - 1 Week Activity/Diet/Wound Care/Special Instructions: Weightbearing as tolerated with walker. Daily dressing changes. Recommend use of compression stockings daily until follow up to help prevent swelling and blood clots. May remove at night before sleeping. Please follow-up with [facility] in 10 days and call with any questions or concerns, . PROSPER: CBC, BMP in 3 days Discharge Disposition: TRANSFER TO SNF/ECF
--- NOTE | 2023-05-14 14:08 | P.PN ---
Subjective Progress Note Date: 05/15/23 This is a 72-year-old gentleman status post right hip hemiarthroplasty, postop day #1, no surgery is planned at this time regarding humeral neck fracture. Maintaining O2 sats in the 90s on 8 L high flow nasal cannula. Blood pressure soft. CT of right shoulder reported a comminuted fracture proximal right humerus with greater tuberosity and surgical neck components. Wearing sling. 05/14/2023 blood pressures improved this morning, yesterday soft with amlodipine discontinued. Tolerating diet with no nausea vomiting or diarrhea. Denies abdominal pain. Passing flatus. Pain controlled. Denies chest pain, palpitations or shortness of breath. Continues on Symbicort, IV steroids, albuterol. Maintaining O2 sats in the low 90s on 3 L nasal cannula. Objective - Vital Signs Vital signs: Vital Signs Temp 98.4 F 05/14/23 07:49 Pulse 74 05/14/23 07:49 Resp 19 05/14/23 07:49 BP 128/68 05/14/23 07:49 Pulse Ox 90 L 05/14/23 08:53 FiO2 Intake & Output 05/13/23 05/14/23 05/14/23 18:59 06:59 18:59 Intake Total 652 Output Total 300 700 Balance 352 -700 Intake: Oral 652 Output: Urine 300 700 Other: Voiding Method Indwelling Catheter Indwelling Catheter - Exam PHYSICAL EXAM: VITAL SIGNS: [As above] GENERAL: Alert and oriented 3 ,Sitting up in bed, no acute distress. HEENT: Normocephalic ,Conjunctivae normal. eyes normal.MMM. NECK: Supple, No JVD. CARDIOVASCULAR: S1, S2 regular.. No murmur RESPIRATION: Scattered rhonchi, mild expiratory wheezing, bilateral bases diminished. ABDOMEN: Soft, nontender . No guarding. no masses palpable. +BS LEGS: Right lower extremity dressing clean dry and intact, no edema, positive DP pulses NERVOUS SYSTEM: Cranial N 2-12 grossly normal. Strength and sensation grossly intact.. Skin: Warm and dry, no rash - Labs CBC & Chem 7: 05/13/23 06:15 05/12/23 07:02 Assessment and Plan Assessment: Right hip he might arthroplasty secondary to right femoral neck fx, related to fall right humeral neck fracture, wearing a sling currently Acute hypoxic respiratory failure Severe COPD, O2 dependent Chronic hypercapnic respiratory failure secondary to the above Laryngeal cancer, Previous hospitalization for accidental opiate overdose requiring intubation and mechanical ventilation History of hypertension, blood pressures currently soft CAD, AAA BPH Urinary renention secondary to the above Chronic constipation Plan: Continue on current medication regime ,monitoring and symptomatic treatment. Pain management/DVT prophylaxis as per orthopedic surgery. PT/OT. Discharge planning in progress as per orthopedic surgery for Subacute rehab. Follow-up with PCP in 1 week after DC from subacute rehab. The impression and plan of care has been dictated as directed. : I performed a history and examination of this patient, discussed the same with the dictator. I agree with the dictator's note ,documented as a scribe. Any additional findings or plans will be noted.
--- NOTE | 2023-05-14 15:04 | P.PN ---
Subjective Progress Note Date: 05/14/23 On 05/11/2023, I'm seeing this 72-year-old male patient in the emergency department as the patient is known to have COPD and the patient a fall and he sustained a fracture to his right hip, proximal humerus and ankle. The patient was at [facility] since he was in the parking lot and he fell without losing any consciousness. In the emergency department, the patient was diagnosed having a femoral neck fracture, the proximal humeral head/neck fracture and the possible nondisplaced distal ulnar fracture. He was admitted to the hospital. Orthopedic surgery consultation was placed. His COPD is currently inactive and stable. He is known to have advanced COPD and has had previous hospital admission for COPD exacerbation. Denies having any chest pain. No cough or sputum production. No chest episode wheezing. The patient has been maintain on Symbicort on outpatient basis, albuterol updrafts, albuterol HFA and oxygen therapy. The white cell count is at 6.4, hemoglobin is 12.1 and a platelet cou nt is at 180. Normal coagulation profile. BUN is at 21 with a creatinine of 0.7 and sodium levels of 134 with a potassium level of 4.6. Normal LFTs. Normal UA. The chest x-ray shows no evidence of any pneumothorax and the CAT scan of the head showed no evidence of any cervical spine injury and the patient had degenerative disc disease involving the cervical spine. No acute MEASUREMENT SPECIALIST process. On 05/12/2023, the patient is clinically stable. The patient has having no pain issues. No interval worsening shortness of breath. The patient is going to undergo a right hip ORIF today. Pulmonary clearance was given. No other new complaints otherwise for now. Awaiting a cardiac clearance also. Hemoglobin is at 11.7, BUN is at 21 with a creatinine of 0.8. Sodium level is at 137. He is maintained on oxygen at 5 L with a pulse ox of 90%. The patient is seen today 05/13/2023 in follow-up on the regular medical floor. He is currently resting fairly comfortably in bed. Awake and alert in no acute distress. He is currently on 8 L high flow nasal cannula. Afebrile. Hemodynamically stable. He is status post right hip cemented unipolar hemiarthroplasty. Postoperative day #1. Computed tomography scan of the right shoulder revealed a comminuted fracture proximal right humerus with greater tuberosity and surgical med components. Currently in a sling. White count 7.8. Hemoglobin 10.4. Platelets 161. He remains on Symbicort, albuterol, Solu- Medrol. Dilaudid alternating with [place] for pain control. The patient is seen today 05/14/2023 in follow-up on the regular medical floor. Postoperative day #2. He is resting fairly comfortably in bed. Awake and alert in no acute distress. He is maintaining O2 saturations in the 90s on 3 L/m per nasal cannula. He is afebrile. Hemodynamically stable. He remains on Symbicort and albuterol along with IV Solu-Medrol. Objective - Vital Signs Vital signs: Vital Signs Temp 98.4 F 05/14/23 07:49 Pulse 74 05/14/23 07:49 Resp 19 05/14/23 07:49 BP 128/68 05/14/23 07:49 Pulse Ox 90 L 05/14/23 08:53 FiO2 Intake & Output 05/13/23 05/14/23 05/14/23 18:59 06:59 18:59 Intake Total 652 Output Total 300 700 Balance 352 -700 Intake: Oral 652 Output: Urine 300 700 Other: Voiding Method Indwelling Catheter Indwelling Catheter - Exam General Appearance: Alert 72-year-old male,on 3 L nasal cannula. Head exam was generally normal. There was no scleral icterus or corneal arcus. Mucous membranes were moist. HEENT no pursed lip breathing, no jugular venous distention, no mucous membrane cyanosis, no perioral cyanosis, mallampati classification: class 1 Chest no barrel chest, no retractions, no sternocleidomastoid muscle contractions, no supraclavicular retractions, no intercostal retractions, there is marked. Diminished, along with prolonged expiratory wheezing Heart no right ventricular heave, no distant heart sounds, no s3 gallop GI bowel sounds: Normal bowel sounds: diminished or absent Extremities no cyanosis, no clubbing, no edema Neurologic no decreased mental status, no somnolence, no confusion Examination of the skin revealed no evidence of significant rashes. Examination of the extremities shows that the patient has right lower extremity hip dressing is dry and intact. Minimal warmth and swelling in the right lower extremity and left lower extremity. Neurovascularly intact in lower extremities. The patient has limited range of motion of the right shoulder, normal movement of the fingers and the hand. - Labs CBC & Chem 7: 05/13/23 06:15 05/12/23 07:02 Assessment and Plan Assessment: Fall from ground-level, trip and fall, denied loss of consciousness Right femoral neck fracture, status post right hip cemented unipolar hemiarthroplasty. Postoperative day #2 Right proximal humeral head/neck fracture currently in a sling Severe oxygen dependent COPD with an FEV1 of 34% of predicted. Chronic hypoxic respiratory failure Chronic hypercapnic respiratory failure secondary to COPD Laryngeal cancer completed a total of 21 sessions of radiation therapy Previous hospitalization for accidental opiate overdose requiring intubation and mechanical ventilation Abdominal aortic aneurysm History of BPH Hyperlipidemia Coronary artery disease with nonocclusive multivessel CAD Heartburn Hoarseness secondary to above Chronic constipation post enema and a component of urinary retention Plan: The patient was seen and evaluated Medications reviewed Continue prednisone taper Continue home pulmonary medications Plan is for subacute rehab at [facility] I have personally seen and examined the patient, performed the documentation and the assessment and plan as written. Number of minutes spent on the visit: 10.
[2023-05-14] MEDS: ALBUTEROL NEBULIZED 2.5 MG/3 ML INHALATION PRN (16:15)
[2023-05-14 16:31] VITALS: PULSE 80
== END 2023-05-14 18:00 | DRG 521 ==
LOC: EC 21:05 → 4SSUR 23:52
PROVIDERS: ADMIT Orthopaedic Surgery; ATTEND Orthopaedic Surgery
PROC: 3E043XZ Introduction of Vasopressor into Central Vein, Percutaneous Approach (ICD-10-PCS; 2023-05-12)
PROC: 0SRR019 Replacement of Right Hip Joint, Femoral Surface with Metal Synthetic Substitute, Cemented, Open Approach (ICD-10-PCS; principal; 2023-05-12 10:30)
DX: S72.041A Displaced fracture of base of neck of right femur, initial encounter for closed fracture (principal); J96.21 Acute and chronic respiratory failure with hypoxia; J96.22 Acute and chronic respiratory failure with hypercapnia; S52.601A Unspecified fracture of lower end of right ulna, initial encounter for closed fracture; J44.1 Chronic obstructive pulmonary disease with (acute) exacerbation; S42.221A 2-part displaced fracture of surgical neck of right humerus, initial encounter for closed fracture; S42.251A Displaced fracture of greater tuberosity of right humerus, initial encounter for closed fracture; I95.9 Hypotension, unspecified; M35.9 Systemic involvement of connective tissue, unspecified; E78.5 Hyperlipidemia, unspecified; S93.401A Sprain of unspecified ligament of right ankle, initial encounter; I10 Essential (primary) hypertension; I25.10 Atherosclerotic heart disease of native coronary artery without angina pectoris; K21.9 Gastro-esophageal reflux disease without esophagitis; K59.09 Other constipation; M19.90 Unspecified osteoarthritis, unspecified site; N40.1 Benign prostatic hyperplasia with lower urinary tract symptoms; R33.8 Other retention of urine; H91.90 Unspecified hearing loss, unspecified ear; R49.0 Dysphonia; M50.30 Other cervical disc degeneration, unspecified cervical region; F17.210 Nicotine dependence, cigarettes, uncomplicated; Z71.6 Tobacco abuse counseling; Z99.81 Dependence on supplemental oxygen; Z79.82 Long term (current) use of aspirin; Z79.51 Long term (current) use of inhaled steroids; Z79.899 Other long term (current) drug therapy; Z91.81 History of falling; Z85.21 Personal history of malignant neoplasm of larynx; Z92.3 Personal history of irradiation; Z87.442 Personal history of urinary calculi; Z88.5 Allergy status to narcotic agent; Z88.0 Allergy status to penicillin; Z88.8 Allergy status to other drugs, medicaments and biological substances; W01.198A Fall on same level from slipping, tripping and stumbling with subsequent striking against other object, initial encounter; Y92.481 Parking lot as the place of occurrence of the external cause
CPT/HCPCS: 36415; 51702; 70450; 71045; 72125; 73501; 73502; 74019; 80048; 80053; 81003; 84484; 85025; 85610; 85730; 88305; 88311; 93005; 93306; 94640; 94760; 96361; 96374; 96375; 96376; 99285

== ENCOUNTER 2023-05-26 10:23 | Inpatient (IN) | payer MEDICARE, OTHER ==
[2023-05-26] MEDS ORDERED: ALBUTEROL NEBULIZED 2.5 MG/3 ML INHALATION STA (10:25)
[2023-05-26] MEDS ORDERED: IPRATROPIUM 0.5 MG/2.5 ML NEBU INHALATION STA (10:25)
[2023-05-26] MEDS ORDERED: methylPREDNISolone SOD SUCCI 125 MG/2 ML VIAL IV STA (10:25)
[2023-05-26] MEDS ORDERED: SODIUM CHLORIDE 0.9% 500 ML 500 ML IV STA (10:25)
[2023-05-26] MEDS ORDERED: IBUPROFEN 600 MG TAB PO STA (10:26)
[2023-05-26] MEDS ORDERED: ACETAMINOPHEN TAB 500 MG TAB PO STA (10:26)
[2023-05-26 10:41] LABS: ABG Base Excess 9.8 mmol/L; ABG HCO3 34 mmol/L (21-25); ABG Oxygen Saturation 91.6 % (94-97); ABG PCO2 50 mmHg (35-45); ABG PH 7.44 (7.35-7.45); ABG TCO2 36 mmol/L (19-24); Allen Test Performed? Yes
[2023-05-26 10:45] LABS: ABG PO2 58 mmHg (83-108)
[2023-05-26 11:12] LABS: HCT 27.6 % (39.0-53.0); HGB 9.2 gm/dL (13.0-17.5); MCH 29.8 pg (25.0-35.0); MCHC 33.5 g/dL (31.0-37.0); MCV 88.9 fL (80.0-100.0); Platelet Count 306 k/uL (150-450); RDW 14.2 % (11.5-15.5); WBC 13.6 k/uL (3.8-10.6)
[2023-05-26 11:19] LABS: ALT 14 U/L (4-49); AST 17 U/L (17-59); African American GFR (CKD) >90 (>60 ml/min/1.73 sqM); Albumin 2.5 g/dL (3.5-5.0); Alkaline Phosphatase 79 U/L (38-126); Anion Gap 6 mmol/L; Blood Urea Nitrogen 20 mg/dL (9-20); Carbon Dioxide 31 mmol/L (22-30); Chloride 92 mmol/L (98-107); Glucose 107 mg/dL (74-99); Magnesium 1.6 mg/dL (1.6-2.3); Non-African American GFR(CKD) >90 (>60 ml/min/1.73 sqM); Potassium 4.4 mmol/L (3.5-5.1); Sodium 129 mmol/L (137-145); Total Bilirubin 0.6 mg/dL (0.2-1.3)
[2023-05-26 11:27] LABS: NT-Pro-B-Type Natriuretic Pept 3140 pg/mL
--- NOTE | 2023-05-26 11:28 | ED ---
General Adult HPI - General Chief complaint: Shortness of Breath Stated complaint: SOB Time Seen by Provider: 05/26/23 10:25 Source: patient, RN notes reviewed, old records reviewed Mode of arrival: ambulatory Limitations: no limitations - History of Present Illness Initial comments: This a 72-year-old male presents emergency Department for difficulty breathing. Patient comes from a group home where he is being rehabbed because of an injury to his arm and his leg. Patient is unaware of exactly how the injury occurred. Patient has been having a difficulty breathing since earlier today. Patient has a history of COPD. According to staff she was oxygenating in the 70s. Patient also 102 temp according to staff. Patient was not given Motrin or Tylenol. EMS arrived and the patient was on a nonrebreather and they gave him a breathing treatment on the way in and he was feeling better and didn't look as much distress. Patient had no complaints of any pain. - Related Data Home Medications Medication Instructions Recorded Confirmed lisinopriL [Zestril] 20 mg PO BID 03/04/19 05/10/23 Albuterol Nebulized [Ventolin 2.5 mg INHALATION RT-QID PRN 03/06/20 05/10/23 Nebulized] Albuterol Sulfate [Ventolin HFA] 2 puff INHALATION RT-QID PRN 03/06/20 05/10/23 Tamsulosin HCl [Flomax] 0.4 mg PO DAILY 04/11/22 05/10/23 Omeprazole 20 mg PO DAILY 05/02/22 05/10/23 Previous Rx's Medication Instructions Recorded Aspirin EC [Ecotrin Low Dose] 81 mg PO DAILY #30 tab 04/16/22 Budesonide-Formot 160-4.5 Mcg 2 puff INHALATION RT-BID #1 each 04/16/22 [Symbicort 160-4.5 Mcg Inhaler] Metoprolol Succinate (ER) [Toprol 12.5 mg PO DAILY #30 tab 04/16/22 XL] Aspirin [Adult Low Dose Aspirin EC] 81 mg PO BID #1 tab 05/13/23 HYDROcodone/APAP 7.5-325MG [[place] 1 - 2 tab PO Q6HR PRN #32 tab 05/13/23 7.5-325] Sennosides-Docusate Sodium 1 tab PO BID #60 tablet 05/13/23 [Senokot-S] Acetaminophen Tab [Tylenol] 650 mg PO Q6HR PRN tab 05/14/23 Magnesium Hydroxide [Milk of 2,400 mg PO DAILY PRN ml 05/14/23 Magnesia] predniSONE 10 mg PO DIRECTED #30 tab 05/14/23 Allergies Allergy/AdvReac Type Severity Reaction Status Date / Time Penicillins Allergy Rash/Hives Verified 05/26/23 10:30 gabapentin AdvReac Hallucinati Verified 05/26/23 10:30 ons/AMS morphine AdvReac Confusion Verified 05/26/23 10:30 Review of Systems ROS Statement: Those systems with pertinent positive or pertinent negative responses have been documented in the HPI. ROS Other: All systems not noted in ROS Statement are negative. Past Medical History Past Medical History: Coronary Artery Disease (CAD), Cancer, COPD, GERD/Reflux, Hearing Disorder / Deafness, Hyperlipidemia, Hypertension, Pneumonia, Prostate Disorder, Vascular Disorder Additional Past Medical History / Comment(s): Laryngeal cancer recently completed radiation treatments, severe COPD, chronic hypoxic and hypercapnic respiratory failure with home O2, resent respiratory failure/vented d/t accidental opiate overdose, history of autoimmune disease sees Dr. Goins and [facility]-never received specifics about the disease type, aortic aneurysm with repair, thoracolumbar pain/T4 fracture with recent surgery, nephrolithiasis-has passed stones on his own in the past, occasional bilateral leg cramps, left eardrum perforation/[place] History of Any Multi-Drug Resistant Organisms: Other MDRO Past Surgical History: Appendectomy, Back Surgery, Ear Surgery, Heart Catheterization, Hernia Repair Additional Past Surgical History / Comment(s): 06/29/19 T4 kyphoplasty, Endovascular stent grafting of a abdominal aortic aneurysm. Facial reconstructive surgery. L ear surgery-myringotomy. Umbilical hernia. Colonoscopy-benign polypectomy. R cataract removed with lens. L eye had glass removed and lens placed. Past Anesthesia/Blood Transfusion Reactions: No Reported Reaction Additional Past Anesthesia/Blood Transfusion Reaction / Comment(s): Pt has never recieved blood. Past Psychological History: No Psychological Hx Reported Smoking Status: Current every day smoker Past Alcohol Use History: Occasional Past Drug Use History: None Reported - Past Family History Brother(s) Family Medical History: Cancer, Fibromyalgia Additional Family Medical History / Comment(s): Brother of lung cancer at the age of 42 yrs. He was a smoker. Sister(s) Family Medical History: Cancer, Fibromyalgia Additional Family Medical History / Comment(s): Sister of lung cancer. She was a smoker. Father Family Medical History: Myocardial Infarction (MA) Additional Family Medical History / Comment(s): Father at age 75 yrs of a MA Mother Family Medical History: Cancer Additional Family Medical History / Comment(s): Mother of metastatic cancer (unknown primary) at age 42 yrs. General Exam - General Exam Comments Initial Comments: GENERAL: Patient is well-developed and well-nourished. Patient is nontoxic and well- hydrated and is in mild distress. ENT: Neck is soft and supple. No significant lymphadenopathy is noted. Oropharynx is clear. Moist mucous membranes. Neck has full range of motion without eliciting any pain. EYES: The sclera were anicteric and conjunctiva were pink and moist. Extraocular movements were intact and pupils were equal round and reactive to light. Eyelids were unremarkable. PULMONARY: Patient has expiratory wheezing bilaterally CARDIOVASCULAR: There is a regular rate and rhythm without any murmurs gallops or rubs. ABDOMEN: Soft and nontender with normal bowel sounds. SKIN: Skin is clear with no lesions or rashes and otherwise unremarkable. NEUROLOGIC: Patient is alert and oriented x3. Cranial nerves II through XII are grossly intact. Motor and sensory are also intact. Normal speech, volume and content. Symmetrical smile. MUSCULOSKELETAL: Normal extremities with adequate strength and full range of motion. 2+ edema on the left leg right leg had a wrap on it LYMPHATICS: No significant lymphadenopathy is noted PSYCHIATRIC: Normal psychiatric evaluation. Limitations: no limitations Course Vital Signs 05/26/23 05/26/23 05/26/23 10:24 10:30 10:46 Temperature 99.3 F Pulse Rate 101 H 98 Respiratory 24 Rate Blood Pressure 114/80 O2 Sat by Pulse 89 L Oximetry Fraction of 50 Inspired Oxygen (FIO2) 05/26/23 05/26/23 11:15 11:33 Temperature 98.8 F Pulse Rate 98 101 H Respiratory 22 Rate Blood Pressure 89/59 O2 Sat by Pulse 88 L Oximetry Fraction of Inspired Oxygen (FIO2) Medical Decision Making - Medical Decision Making EKG is interpreted by myself. EKG shows a sinus tachycardia at 101 bpm VT interval is 97 2 QRS is 99 QT interval 318 QTC is 376. Patient's EKG shows no acute depression. Was pt. sent in by a medical professional or institution ([facility], [facility], urgent care, hospital, or group home...) When possible be specific @ -Patient was sent in from the group home Did you speak to anyone other than the patient for history (EMS, parent, family, police, friend...)? What history was obtained from this source @ -I spoke with EMS to get quite a bit of the history Did you review nursing and triage notes (agree or disagree)? Why? @ -I reviewed and agree with nursing and triage notes Were old charts reviewed (outside hosp., previous admission, EMS record, old EKG, old radiological studies, urgent care reports/EKG's, group home records)? Report findings @ -I reviewed prior charts in prior lab work Differential Diagnosis (chest pain, altered mental status, abdominal pain women, abdominal pain men, vaginal bleeding, weakness, fever, dyspnea, syncope, headache, dizziness, GI bleed, back pain, seizure, CVA, palpatations, mental health, musculoskeletal)? @ -Differential Dyspnea: Coronary syndrome, arrhythmia, tamponade, asthma, COPD, pulmonary embolism, pneumonia, pneumothorax, pulmonary effusion, anaphylaxis, diabetic ketoacidosis, flailed chest, pulmonary contusion, diaphragmatic rupture, anemia, neuromuscular, this is not meant to be an all-inclusive list. EKG interpreted by me (3pts min.). @ -As above X-rays interpreted by me (1pt min.). @ -Chest x-ray shows infiltrate in the right base CT interpreted by me (1pt min.). @ -None done U/S interpreted by me (1pt. min.). @ -None done What testing was considered but not performed or refused? (CT, X-rays, U/S, labs)? Why? @ -None What meds were considered but not given or refused? Why? @ -None Did you discuss the management of the patient with other professionals (professionals i.e. ISELA Hathaway, [facility], lab, RT, psych nurse, social media manager, rn endocrinology, teacher, account officer, immigration case worker)? Give summary @ -Spoke with the [facility] sleep he didn't admit the patient with the patient wrote admitting orders Was smoking cessation discussed for >3mins.? @ -No Was critical care preformed (if so, how long)? @ -No Were there social determinants of health that impacted care today? How? (Homelessness, low income, unemployed, alcoholism, drug addiction, transportation, low edu. Level, literacy, decrease access to med. care, usp, rehab)? @ -No Was there de-escalation of care discussed even if they declined (Discuss DNR or withdrawal of care, Hospice)? DNR status @ -No What co-morbidities impacted this encounter? (DM, HTN, Smoking, COPD, CAD, Cancer, CVA, ARF, Chemo, Hep., AIDS, mental health diagnosis, sleep apnea, morbid obesity)? @ -Patient has COPD Was patient admitted / discharged? Hospital course, mention meds given and route, prescriptions, significant lab abnormalities, going to OR and other pertinent info. @ -Patient had breathing treatments in the emergency department as well as steroids. Patient also got antibiotics for the pneumonia that was seen on the x-ray. Patient was given fluids because of blood pressure was a little bit low. Patient will be admitted [facility]. Undiagnosed new problem with uncertain prognosis? @ -No Drug Therapy requiring intensive monitoring for toxicity (Heparin, Nitro, Insulin, Cardizem)? @ -No Were any procedures done? @ -No Diagnosis/symptom? @ -Pneumonia Acute, or Chronic, or Acute on Chronic? @ -Acute Uncomplicated (without systemic symptoms) or Complicated (systemic symptoms)? @ -Complicated Side effects of treatment? @ -No Exacerbation, Progression, or Severe Exacerbation? @ -No Poses a threat to life or bodily function? How? (Chest pain, [place], MA, pneumonia, PE, COPD, DKA, ARF, appy, cholecystitis, CVA, Diverticulitis, Homicidal, Morales icidal, threat to staff... and all critical care pts) @ -Yes This could lead to sepsis and an organ dysfunction Diagnosis/symptom? @ -COPD exacerbation Acute, or Chronic, or Acute on Chronic? @ -Acute Uncomplicated (without systemic symptoms) or Complicated (systemic symptoms)? @ -Complicated Side effects of treatment? @ -none Exacerbation, Progression, or Severe Exacerbation] @ -no Poses a threat to life or bodily function? @ -Yes this could lead to hypoxia and end organ dysfunction Diagnosis/symptom? @ -default Acute, or Chronic, or Acute on Chronic? @ -Hyponatremia acute Uncomplicated (without systemic symptoms) or Complicated (systemic symptoms)? @ -Complicated Side effects of treatment? @ -none Exacerbation, Progression, or Severe Exacerbation] @ -no Poses a threat to life or bodily function? @ -no Diagnosis/symptom? @ -Abdominal pain Acute, or Chronic, or Acute on Chronic? @ -Acute Uncomplicated (without systemic symptoms) or Complicated (systemic symptoms)? @ -Complicated Side effects of treatment? @ -none Exacerbation, Progression, or Severe Exacerbation] @ -no Poses a threat to life or bodily function? @ -no - Lab Data Result diagrams: 05/26/23 10:51 05/26/23 10:31 Lab Results 05/26/23 05/26/23 05/26/23 Range/Units 10:31 10:31 10:31 WBC (3.8-10.6) k/uL RBC (4.30-5.90) m/uL Hgb (13.0-17.5) gm/dL Hct (39.0-53.0) % MCV (80.0-100.0) fL MCH (25.0-35.0) pg MCHC (31.0-37.0) g/dL RDW (11.5-15.5) % Plt Count (150-450) k/uL MPV Neutrophils % (Manual) % Band Neuts % (Manual) % Lymphocytes % (Manual) % Monocytes % (Manual) % Neutrophils # (Manual) (1.3-7.7) k/uL Lymphocytes # (Manual) (1.0-4.8) k/uL Monocytes # (Manual) (0-1.0) k/uL Nucleated RBCs (0-0) /100 WBC Manual Slide Review PT 11.0 (10.0-12.5) sec INR 1.0 (<1.2) APTT 23.0 (22.0-30.0) sec D-Dimer 1.89 H (<0.60) mg/L FEU Sample Site ABG pH (7.35-7.45) ABG pCO2 (35-45) mmHg ABG pO2 (83-108) mmHg ABG HCO3 (21-25) mmol/L ABG Total CO2 (19-24) mmol/L ABG O2 Saturation (94-97) % ABG Base Excess mmol/L Rodger Test FiO2 % Sodium 129 L (137-145) mmol/L Potassium 4.4 (3.5-5.1) mmol/L Chloride 92 L (98-107) mmol/L Carbon Dioxide 31 H (22-30) mmol/L Anion Gap 6 mmol/L BUN 20 (9-20) mg/dL Creatinine 0.65 L (0.66-1.25) mg/dL Est GFR (CKD-EPI)AfAm >90 (>60 ml/min/1.73 sqM) Est GFR (CKD-EPI)NonAf >90 (>60 ml/min/1.73 sqM) Glucose 107 H (74-99) mg/dL Plasma Lactic Acid Ricky 1.0 (0.7-2.0) mmol/L Calcium 8.0 L (8.4-10.2) mg/dL Magnesium 1.6 (1.6-2.3) mg/dL Total Bilirubin 0.6 (0.2-1.3) mg/dL AST 17 (17-59) U/L ALT 14 (4-49) U/L Alkaline Phosphatase 79 (38-126) U/L Troponin I (0.000-0.034) ng/mL NT-Pro-B Natriuret Pep 3140 pg/mL Total Protein 5.0 L (6.3-8.2) g/dL Albumin 2.5 L (3.5-5.0) g/dL Influenza Type A (PCR) (Not Detectd) Influenza Type B (PCR) (Not Detectd) RSV (PCR) (Not Detectd) SARS-CoV-2 (PCR) (Not Detectd) 05/26/23 05/26/23 05/26/23 Range/Units 10:31 10:31 10:38 WBC (3.8-10.6) k/uL RBC (4.30-5.90) m/uL Hgb (13.0-17.5) gm/dL Hct (39.0-53.0) % MCV (80.0-100.0) fL MCH (25.0-35.0) pg MCHC (31.0-37.0) g/dL RDW (11.5-15.5) % Plt Count (150-450) k/uL MPV Neutrophils % (Manual) % Band Neuts % (Manual) % Lymphocytes % (Manual) % Monocytes % (Manual) % Neutrophils # (Manual) (1.3-7.7) k/uL Lymphocytes # (Manual) (1.0-4.8) k/uL Monocytes # (Manual) (0-1.0) k/uL Nucleated RBCs (0-0) /100 WBC Manual Slide Review PT (10.0-12.5) sec INR (<1.2) APTT (22.0-30.0) sec D-Dimer (<0.60) mg/L FEU Sample Site lrad ABG pH 7.44 (7.35-7.45) ABG pCO2 50 H (35-45) mmHg ABG pO2 58 L* (83-108) mmHg ABG HCO3 34 H (21-25) mmol/L ABG Total CO2 36 H (19-24) mmol/L ABG O2 Saturation 91.6 L (94-97) % ABG Base Excess 9.8 mmol/L Rodger Test Yes FiO2 50 % Sodium (137-145) mmol/L Potassium (3.5-5.1) mmol/L Chloride (98-107) mmol/L Carbon Dioxide (22-30) mmol/L Anion Gap mmol/L BUN (9-20) mg/dL Creatinine (0.66-1.25) mg/dL Est GFR (CKD-EPI)AfAm (>60 ml/min/1.73 sqM) Est GFR (CKD-EPI)NonAf (>60 ml/min/1.73 sqM) Glucose (74-99) mg/dL Plasma Lactic Acid Ricky (0.7-2.0) mmol/L Calcium (8.4-10.2) mg/dL Magnesium (1.6-2.3) mg/dL Total Bilirubin (0.2-1.3) mg/dL AST (17-59) U/L ALT (4-49) U/L Alkaline Phosphatase (38-126) U/L Troponin I <0.012 (0.000-0.034) ng/mL NT-Pro-B Natriuret Pep pg/mL Total Protein (6.3-8.2) g/dL Albumin (3.5-5.0) g/dL Influenza Type A (PCR) Not Detected (Not Detectd) Influenza Type B (PCR) Not Detected (Not Detectd) RSV (PCR) Not Detected (Not Detectd) SARS-CoV-2 (PCR) Not Detected (Not Detectd) 05/26/23 Range/Units 10:51 WBC 13.6 H (3.8-10.6) k/uL RBC 3.10 L (4.30-5.90) m/uL Hgb 9.2 L D (13.0-17.5) gm/dL Hct 27.6 L (39.0-53.0) % MCV 88.9 (80.0-100.0) fL MCH 29.8 (25.0-35.0) pg MCHC 33.5 (31.0-37.0) g/dL RDW 14.2 (11.5-15.5) % Plt Count 306 (150-450) k/uL MPV 8.0 Neutrophils % (Manual) 91 % Band Neuts % (Manual) 1 % Lymphocytes % (Manual) 2 % Monocytes % (Manual) 6 % Neutrophils # (Manual) 12.50 H (1.3-7.7) k/uL Lymphocytes # (Manual) 0.27 L (1.0-4.8) k/uL Monocytes # (Manual) 0.82 (0-1.0) k/uL Nucleated RBCs 0 (0-0) /100 WBC Manual Slide Review Performed PT (10.0-12.5) sec INR (<1.2) APTT (22.0-30.0) sec D-Dimer (<0.60) mg/L FEU Sample Site ABG pH (7.35-7.45) ABG pCO2 (35-45) mmHg ABG pO2 (83-108) mmHg ABG HCO3 (21-25) mmol/L ABG Total CO2 (19-24) mmol/L ABG O2 Saturation (94-97) % ABG Base Excess mmol/L Rodger Test FiO2 % Sodium (137-145) mmol/L Potassium (3.5-5.1) mmol/L Chloride (98-107) mmol/L Carbon Dioxide (22-30) mmol/L Anion Gap mmol/L BUN (9-20) mg/dL Creatinine (0.66-1.25) mg/dL Est GFR (CKD-EPI)AfAm (>60 ml/min/1.73 sqM) Est GFR (CKD-EPI)NonAf (>60 ml/min/1.73 sqM) Glucose (74-99) mg/dL Plasma Lactic Acid Ricky (0.7-2.0) mmol/L Calcium (8.4-10.2) mg/dL Magnesium (1.6-2.3) mg/dL Total Bilirubin (0.2-1.3) mg/dL AST (17-59) U/L ALT (4-49) U/L Alkaline Phosphatase (38-126) U/L Troponin I (0.000-0.034) ng/mL NT-Pro-B Natriuret Pep pg/mL Total Protein (6.3-8.2) g/dL Albumin (3.5-5.0) g/dL Influenza Type A (PCR) (Not Detectd) Influenza Type B (PCR) (Not Detectd) RSV (PCR) (Not Detectd) SARS-CoV-2 (PCR) (Not Detectd) Disposition Clinical Impression: Pneumonia, COPD exacerbation, Hyponatremia, Abdominal pain Disposition: ADMITTED IP TO THIS HOSP Referrals: Bryce Lopez MD [Primary Care Provider] - 1-2 days Time of Disposition: 13:32
--- NOTE | 2023-05-26 11:40 | XR ---
EXAMINATION TYPE: XR chest 2V DATE OF EXAM: 05/26/2023 11:30 AM CLINICAL INDICATION:Male, 72 years old with history of difficulty breathing; [facility] COMPARISON: Chest radiographs from 05/10/2023. TECHNIQUE: XR chest 2V Frontal and lateral views of the chest. FINDINGS: Lungs/Pleura: Bibasilar airspace opacities. There is no evidence of pleural effusion, or pneumothorax . Pulmonary vascularity: Pulmonary vascular congestion. Heart/mediastinum: Cardiomediastinal silhouette is enlarged and stable. Atherosclerotic calcificatio ns are seen in the aorta. Musculoskeletal: No acute osseous pathology. Remote injury to the right proximal humerus. IMPRESSION: Bibasilar airspace opacities with cardiomegaly. Correlate for pneumonia versus congestive heart failu re.
[2023-05-26 11:41] LABS: Band Neutrophils % 1 %; Lymphocytes # (M) 0.27 k/uL (1.0-4.8); Monocytes # (M) 0.82 k/uL (0-1.0); Neutrophils % (M) 91 %; Nucleated Red Blood Cells 0 /100 WBC (0-0); Total Cells Counted 100
--- NOTE | 2023-05-26 12:46 | CT ---
EXAMINATION TYPE: CT chest angio for PE DATE OF EXAM: 05/26/2023 COMPARISON: 07/02/2019 HISTORY: 72-year-old male elevated d-dimer, SOB, pain TECHNIQUE: Contiguous axial scanning of the chest performed with IV Contrast, patient injected with 1 00 mL of Isovue 300. Coronal/sagittal MIP reconstructions performed. CT DLP: 1464.9 mGycm Automated exposure control for dose reduction was used. FINDINGS: The heart is upper limits of normal in size with small pericardial effusion. No flattening of the int erventricular septum reflux of contrast in hepatic veins. Coronary calcifications are present. Scattered mild to moderate atherosclerotic calcification plaque. Conventional arterial branching maryann cele. Mediastinal and hilar adenopathy measuring up to 1.9 cm subcarinal and 1.7 cm hilar and bronchial. Large caliber to the main right and left pulmonary arteries up to 3.4 cm suggesting underlying pulmon alexa arterial hypertension. There is breathing motion limiting assessment of the subsegmental branches . No definite pulmonary embolus to the segmental level. There are diffuse tree-in-bud opacities. Mild emphysematous change. Groundglass airspace disease mid and lower lungs especially along the dependent portions. There are t race bilateral pleural effusions. Abdomen and pelvis reported separately. Bones: Previous vertebroplasty change T6. IMPRESSION: 1. BREATHING MOTION LIMITING THE EXAM. NO DEFINITE PULMONARY EMBOLUS TO THE SEGMENTAL LEVEL. SMALLER BRANCHES ARE VERY LIMITED AND NONDIAGNOSTIC. 2. Diffuse tree-in-bud opacities along with patchy and confluent airspace disease greatest in the mid and lower lungs especially along the dependent portions of the lungs. Trace pleural effusions. Consi regla infectious or aspiration pneumonia including the possibility of atypical mycobacterial/fungal inf ections. 3. Mediastinal and hilar adenopathy measuring up to 1.9 cm probably reactive. Follow-up in 2-3 months to ensure resolution and exclude neoplastic etiology. 4. Recommend subsequent pulmonary medicine follow-up given the underlying pulmonary arterial hyperten esteban.
--- NOTE | 2023-05-26 12:56 | CT ---
EXAMINATION TYPE: CT abdomen pelvis w con DATE OF EXAM: 05/26/2023 COMPARISON: 07/02/2019 HISTORY: 72-year-old male acute SOB , nonlocalized abdominal pain TECHNIQUE: Contiguous axial scanning of the abdomen and pelvis following administration of 100 ml Iso kait 370 IV contrast. Delayed images through the kidneys and coronal/sagittal reconstructions perform ed. CT DLP: 1464.9 mGycm Automated exposure control for dose reduction was used. FINDINGS: Chest reported separately. There is a moderate to large hiatal hernia involving the stomach in the lower chest. Some minimal layering gravel or cyst tiny stones in the gallbladder. Gallbladder is hydropic and 4.1 cm wide but without any surrounding inflammation. Portal venous system is patent. No biliary ductal d ilatation. Left adrenal nodularity measuring 1.6 cm remains unchanged suggesting a benign etiology. A few nonobstructive left-sided renal calculi measuring up to 7 mm. Underlying bilateral renal cortic al cysts measuring up to 1.7 cm. 1.7 cm cyst upper pole spleen. Pancreas within normal limits. Aortobiiliac endovascular stent graft is demonstrated. Aneurysmal stent in left common iliac artery a t 2.2 cm versus 2.1 cm, previously. Abdominal aortic sun'aq sac measures 3.9 cm versus 4.7 cm back in 2020. No dilated small bowel, free fluid, or free air. No mesenteric or retroperitoneal adenopathy. Mild to moderate scattered stool. Left-sided colonic diverticulosis, greatest in the sigmoid colon. N o pericolonic inflammatory change seen. Bladder is urine distended. There is mild pelvic free fluid which is abnormal in a male patient. Limi ramos visualization of pelvic structures due to extensive artifact from patient's right hip total arthr oplasty. No pelvic lymphadenopathy is seen. Bones: Pronounced asymmetric soft tissue swelling at the right hip including subcutaneous edema and m uscular edema. There is also a fluid collection along the lateral aspect of the head with and continu es adipose layer spanning up to 28.3 cm craniocaudally measuring 2.8 cm wide. IMPRESSION: 1. CHEST REPORTED SEPARATELY. 2. MODERATE TO LARGE HIATAL HERNIA WITH A THIRD OF THE STOMACH LOCATED IN THE LOWER CHEST. 3. LEFT-SIDED RENAL CALCULI MEASURING UP TO 7 MM. NO HYDRONEPHROSIS. 4. TINY LAYERING CALCULI OR GRAVEL IN THE GALLBLADDER. NO GALLBLADDER INFLAMMATION SEEN BY CT. 5. MILD PELVIC FREE FLUID, ABNORMAL IN A MALE PATIENT. THE ETIOLOGY IS UNCLEAR BASED ON THIS EXAM. FO LLOW-UP CLINICALLY INDICATED. 6. LEFT-SIDED COLONIC DIVERTICULOSIS, GREATEST IN THE SIGMOID COLON. NO FINDINGS OF ACUTE DIVERTICULI TIS. 7. RECENT RIGHT HIP ARTHROPLASTY WITH ASSOCIATED POSTSURGICAL SOFT TISSUE SWELLING. THERE IS A FLUID COLLECTION WITHIN THE SUBCUTANEOUS FAT LAYER HERE MEASURING 28.3 CM CRANIOCAUDAL BY 2.8 CM WIDE. PROB ABLY POSTOPERATIVE SEROMA. CLINICALLY CORRELATE FOR OTHER POSTOPERATIVE FLUID COLLECTION.
[2023-05-26] MEDS ORDERED: cefTRIAXone IN SWFI 1,000 MG/10 ML SYRINGE IVP STA (13:07)
[2023-05-26] MEDS ORDERED: PNEUMONIA PROTOCOL UTILIZED 1 EACH MISC PO PRN (13:36)
[2023-05-26] MEDS ORDERED: AZITHROMYCIN 500 MG in SODIUM CHLORIDE 0.9% 250 ML IVPB STA (13:36)
--- NOTE | 2023-05-26 17:06 | P.HPIM ---
History of Present Illness H&P Date: 05/26/23 Chief Complaint: Shortness of breath 72-year-old male, history of coronary artery disease, COPD, hypertension, hyperlipidemia, chronic hypoxic/hypercapnic respiratory failure, patient uses O2 at 2 L per nasal cannula, presents emergency Department for difficulty breathing. Patient comes from a retirement where he is being rehabbed because of an injury to his arm and his leg. Patient is unaware of exactly how the injury occurred. Patient has been having a difficulty breathing since earlier today. Patient has a history of COPD. According to staff she was oxygenating in the 70s. Patient also 102 temp according to staff. Patient was not given Motrin or Tylenol. EMS arrived and the patient was on a nonrebreather and they gave him a breathing treatment on the way in and he was feeling better and didn't look as much distress. Patient had no complaints of any pain. Echo completed in ED reveals WBC of 13.6, hemoglobin of 9.1. Count of 306, sodium 129, potassium 4.4, BUN/creatinine of 20/0.65 d-dimer elevated at 1.89, troponin less than 0.012, Review of Systems REVIEW OF SYSTEMS: CONSTITUTIONAL: No fever, no malaise, no fatigue. HEENT: No recent visual problems or hearing problems. Denied any sore throat. CARDIOVASCULAR: No chest pain, orthopnea, PND, no palpitations, no syncope. PULMONARY: No shortness of breath, no cough, no hemoptysis. GASTROINTESTINAL: No diarrhea, no nausea, no vomiting, no abdominal pain. NEUROLOGICAL: No headaches, no weakness, no numbness. HEMATOLOGICAL: Denies any bleeding or petechiae. GENITOURINARY: Denies any burning micturition, frequency, or urgency. MUSCULOSKELETAL/RHEUMATOLOGICAL: Denies any joint pain, swelling, or any muscle pain. ENDOCRINE: Denies any polyuria or polydipsia. The rest of the 14-point review of systems is negative. Past Medical History Past Medical History: Coronary Artery Disease (CAD), Cancer, COPD, GERD/Reflux, Hearing Disorder / Deafness, Hyperlipidemia, Hypertension, Pneumonia, Prostate Disorder, Vascular Disorder Additional Past Medical History / Comment(s): Laryngeal cancer recently completed radiation treatments, severe COPD, chronic hypoxic and hypercapnic respiratory failure with home O2, resent respiratory failure/vented d/t accidental opiate overdose, history of autoimmune disease sees Dr. Goins and [facility]-never received specifics about the disease type, aortic aneurysm with repair, thoracolumbar pain/T4 fracture with recent surgery, nephrolithiasis-has passed stones on his own in the past, occasional bilateral leg cramps, left eardrum perforation/MENTASTA History of Any Multi-Drug Resistant Organisms: Other MDRO Past Surgical History: Appendectomy, Back Surgery, Ear Surgery, Heart Catheterization, Hernia Repair Additional Past Surgical History / Comment(s): 06/29/19 T4 kyphoplasty, Endovascular stent grafting of a abdominal aortic aneurysm. Facial rec onstructive surgery. L ear surgery-myringotomy. Umbilical hernia. Colonoscopy- benign polypectomy. R cataract removed with lens. L eye had glass removed and lens placed. Past Anesthesia/Blood Transfusion Reactions: No Reported Reaction Additional Past Anesthesia/Blood Transfusion Reaction / Comment(s): Pt has never recieved blood. Past Psychological History: No Psychological Hx Reported Smoking Status: Current every day smoker Past Alcohol Use History: Occasional Past Drug Use History: None Reported - Past Family History Brother(s) Family Medical History: Cancer, Fibromyalgia Additional Family Medical History / Comment(s): Brother of lung cancer at the age of 42 yrs. He was a smoker. Sister(s) Family Medical History: Cancer, Fibromyalgia Additional Family Medical History / Comment(s): Sister of lung cancer. She was a smoker. Father Family Medical History: Myocardial Infarction ([place]) Additional Family Medical History / Comment(s): Father at age 75 yrs of a [place] Mother Family Medical History: Cancer Additional Family Medical History / Comment(s): Mother of metastatic cancer (unknown primary) at age 42 yrs. Medications and Allergies Home Medications Medication Instructions Recorded Confirmed Type lisinopriL [Zestril] 20 mg PO BID 03/04/19 05/26/23 History Albuterol Nebulized [Ventolin 2.5 mg INHALATION RT-QID PRN 03/06/20 05/26/23 History Nebulized] Albuterol Sulfate [Ventolin HFA] 2 puff INHALATION RT-Q6H PRN 03/06/20 05/26/23 History Tamsulosin HCl [Flomax] 0.4 mg PO DAILY 04/11/22 05/26/23 History Budesonide-Formot 160-4.5 Mcg 2 puff INHALATION RT-BID #1 each 04/16/22 05/26/23 Rx [Symbicort 160-4.5 Mcg Inhaler] Metoprolol Succinate (ER) [Toprol 12.5 mg PO DAILY #30 tab 04/16/22 05/26/23 Rx XL] Omeprazole 20 mg PO DAILY 05/02/22 05/26/23 History Aspirin [Adult Low Dose Aspirin EC] 81 mg PO BID #1 tab 05/13/23 05/26/23 Rx Sennosides-Docusate Sodium 1 tab PO BID #60 tablet 05/13/23 05/26/23 Rx [Senokot-S] Acetaminophen Tab [Tylenol] 650 mg PO Q6HR PRN tab 05/14/23 05/26/23 Rx HYDROcodone/APAP 7.5-325MG [[place] 1 - 2 tab PO Q6H PRN 05/26/23 05/26/23 History 7.5-325] predniSONE See Taper PO DIRECTED 05/26/23 05/26/23 History Allergies Allergy/AdvReac Type Severity Reaction Status Date / Time Penicillins Allergy Rash/Hives Verified 05/26/23 13:36 gabapentin AdvReac Hallucinati Verified 05/26/23 13:36 ons/AMS morphine AdvReac Confusion Verified 05/26/23 13:36 Physical Exam Vitals: Vital Signs Temp Pulse Resp BP Pulse Ox FiO2 05/26/23 11:33 98.8 F 101 H 22 89/59 88 L 05/26/23 11:15 98 05/26/23 10:46 98 05/26/23 10:30 50 05/26/23 10:24 99.3 F 101 H 24 114/80 89 L Intake and Output 05/25/23 05/26/23 05/26/23 22:59 06:59 14:59 Other: Weight 74.389 kg - Constitutional General appearance: Present: average body habitus, cooperative, no acute distress - EENT Eyes: Present: anicteric sclerae, EOMI, PERRLA, normal appearance ENT: Present: hearing grossly normal, normal oropharynx Ears: bilateral: normal - Neck Neck: Present: normal ROM. Absent: lymphadenopathy, rigidity, thyromegaly Carotids: negative: bruit present Thyroid: bilateral: normal size, negative: enlarged, nodule - Respiratory Respiratory: bilateral: CTA, negative: rales, rhonchi, wheezing - Cardiovascular Rhythm: regular Heart sounds: normal: S1, S2 Abnormal Heart Sounds: Absent: systolic murmur, diastolic murmur - Gastrointestinal General gastrointestinal: Present: normal bowel sounds, soft. Absent: distended, organomegaly, tenderness - Genitourinary Genitourinary Comment(s): deferred - Integumentary Integumentary: Present: normal turgor. Absent: jaundiced, rash, ulcer - Neurologic Neurologic: Present: CNII-XII intact. Absent: focal deficits - Musculoskeletal Musculoskeletal: Present: gait normal, strength equal bilaterally - Psychiatric Psychiatric: Present: A&O x's 3, appropriate affect, intact judgment & insight Results CBC & Chem 7: 05/26/23 10:51 05/26/23 10:31 Labs: Abnormal Lab Results - Last 24 Hours (Table) 05/26/23 05/26/23 05/26/23 Range/Units 10:31 10:31 10:38 WBC (3.8-10.6) k/uL RBC (4.30-5.90) m/uL Hgb (13.0-17.5) gm/dL Hct (39.0-53.0) % Neutrophils # (Manual) (1.3-7.7) k/uL Lymphocytes # (Manual) (1.0-4.8) k/uL D-Dimer 1.89 H (<0.60) mg/L FEU ABG pCO2 50 H (35-45) mmHg ABG pO2 58 L* (83-108) mmHg ABG HCO3 34 H (21-25) mmol/L ABG Total CO2 36 H (19-24) mmol/L ABG O2 Saturation 91.6 L (94-97) % Sodium 129 L (137-145) mmol/L Chloride 92 L (98-107) mmol/L Carbon Dioxide 31 H (22-30) mmol/L Creatinine 0.65 L (0.66-1.25) mg/dL Glucose 107 H (74-99) mg/dL Calcium 8.0 L (8.4-10.2) mg/dL Total Protein 5.0 L (6.3-8.2) g/dL Albumin 2.5 L (3.5-5.0) g/dL 05/26/23 Range/Units 10:51 WBC 13.6 H (3.8-10.6) k/uL RBC 3.10 L (4.30-5.90) m/uL Hgb 9.2 L D (13.0-17.5) gm/dL Hct 27.6 L (39.0-53.0) % Neutrophils # (Manual) 12.50 H (1.3-7.7) k/uL Lymphocytes # (Manual) 0.27 L (1.0-4.8) k/uL D-Dimer (<0.60) mg/L FEU ABG pCO2 (35-45) mmHg ABG pO2 (83-108) mmHg ABG HCO3 (21-25) mmol/L ABG Total CO2 (19-24) mmol/L ABG O2 Saturation (94-97) % Sodium (137-145) mmol/L Chloride (98-107) mmol/L Carbon Dioxide (22-30) mmol/L Creatinine (0.66-1.25) mg/dL Glucose (74-99) mg/dL Calcium (8.4-10.2) mg/dL Total Protein (6.3-8.2) g/dL Albumin (3.5-5.0) g/dL Assessment and Plan Assessment: 1. Acute on chronic hypoxic/hypercapnic respiratory failure - Patient will be continued on O2 per nasal cannula, titrate to wean as able 2. Acute exacerbation COPD; Solu-Medrol 60 mg IV every 6 hours; bronchodilator nebulizer treatments 4 times a day and when necessary -- She has been placed on IV antibiotics in form of Rocephin and azithromycin 2. Multifocal pneumonia; CT of the chest consistent with infectious versus aspiration pneumonia versus atypical mycobacterial/fungal infection - Patient is placed on IV antibiotics in form of Rocephin 2 g IV daily along with azithromycin 500 mg by mouth daily - We will monitor CBC, CMP and pro-calcitonin 3. Mediastinoscopy/hilar lymphadenopathy; likely reactive; patient will need outpatient follow-up 4. Elevated d-dimer; CT of the chest completed and is negative for PE 5. Abdominal pain; CT of the abdomen and pelvis completed in ED moderate to large hiatal with one third of the stomach located in her chest, renal calculi and diverticulosis without evidence for diverticulitis 6. Cholelithiasis; no signs of infection 7. Left-sided renal without hydronephrosis; patient will need outpatient urology follow-up 8. Hypertension; lisinopril 20 mg twice a day, metoprolol 12.5 mg daily 9. BPH; continue with home dose of Flomax DVT prophylaxis, SCDs/subcu heparin CODE STATUS, full code
[2023-05-26] MEDS: methylPREDNISolone SOD SUCCI 125 MG/2 ML VIAL IV SCH ×2 (18:13→23:26)
[2023-05-26] MEDS: SYMBICORT 160-4.5 MCG INHALER INHALATION SCH (19:58)
[2023-05-26] MEDS: lisinopriL 20 MG TAB PO SCH (22:31)
[2023-05-26] MEDS: SENNOSIDES-DOCUSATE SODIUM 1 EACH TAB PO SCH (22:31)
[2023-05-26] MEDS: ASPIRIN 81 MG PO SCH (22:31)
[2023-05-26] MEDS: HYDROcodone/APAP 7.5-325MG 1 EACH TAB PO PRN (23:27)
[2023-05-27 06:21] LABS: Glucose,Whole Blood 149 mg/dL (70-110)
[2023-05-27] MEDS: HYDROcodone/APAP 7.5-325MG 1 EACH TAB PO PRN ×3 (06:31→20:12)
[2023-05-27] MEDS: PANTOPRAZOLE 40 MG TABLET PO SCH (06:31)
[2023-05-27] MEDS: methylPREDNISolone SOD SUCCI 125 MG/2 ML VIAL IV SCH ×4 (06:32→23:24)
[2023-05-27 07:02] LABS: Appearance,Urine Clear (Clear); Bilirubin,Urine Negative (Negative); Blood,Urine Negative (Negative); Color,Urine Yellow; Glucose,Urine (UA) Negative (Negative); Ketones,Urine Negative (Negative); Leukocyte Esterase,Urine Negative (Negative); Nitrite,Urine Negative (Negative); Protein,Urine Trace (Negative); Specific Gravity,Urine 1.024 (1.001-1.035); Urobilinogen,Urine <2.0 mg/dL (<2.0)
[2023-05-27] MEDS: SYMBICORT 160-4.5 MCG INHALER INHALATION SCH ×2 (08:31→20:54)
--- NOTE | 2023-05-27 08:51 | XR ---
EXAMINATION TYPE: XR chest 1V portable DATE OF EXAM: 05/27/2023 Comparison: 05/26/2023 Clinical History: 72-year-old male pneumonia Findings: Heart borderline enlarged. Hyperinflation. Diffuse interstitial densities. More confluent focal opaci ties at the lung bases. Overall similar. Impression: COPD with ongoing interstitial densities and focal bibasilar airspace disease. Correlate for infectio us or aspiration pneumonitis including the possibility of atypical/COVID pneumonias.
[2023-05-27 09:15] LABS: Basophils % (A) 0 %; Eosinophils % (A) 0 %; HCT 28.6 % (39.0-53.0); HGB 9.1 gm/dL (13.0-17.5); Lymphocytes # (A) 0.3 k/uL (1.0-4.8); Lymphocytes % (A) 2 %; MCH 29.3 pg (25.0-35.0); MCHC 31.9 g/dL (31.0-37.0); MCV 91.9 fL (80.0-100.0); Mean Platelet Volume 7.8; Monocytes # (A) 0.3 k/uL (0-1.0); Monocytes % (A) 2 %; Neutrophils # (A) 10.6 k/uL (1.3-7.7); Neutrophils % (A) 95 %; Platelet Count 338 k/uL (150-450); RBC 3.11 m/uL (4.30-5.90); RDW 14.4 % (11.5-15.5); WBC 11.2 k/uL (3.8-10.6)
[2023-05-27] MEDS ORDERED: IPRATROPIUM-ALBUTEROL 3 ML NEB INHALATION PRN (09:22)
[2023-05-27 09:31] LABS: African American GFR (CKD) >90 (>60 ml/min/1.73 sqM); Anion Gap 10 mmol/L; Blood Urea Nitrogen 23 mg/dL (9-20); Carbon Dioxide 27 mmol/L (22-30); Chloride 93 mmol/L (98-107); Glucose 189 mg/dL (74-99); Non-African American GFR(CKD) >90 (>60 ml/min/1.73 sqM); Potassium 4.5 mmol/L (3.5-5.1); Sodium 130 mmol/L (137-145)
[2023-05-27] MEDS: ASPIRIN 81 MG PO SCH ×2 (09:42→20:12)
[2023-05-27] MEDS: AZITHROMYCIN 500 MG TAB PO SCH (09:42)
[2023-05-27] MEDS: METOPROLOL SUCCINATE (ER) 25 MG TAB.ER.24H PO SCH (09:42)
[2023-05-27] MEDS: lisinopriL 20 MG TAB PO SCH ×2 (09:42→20:13)
[2023-05-27] MEDS: TAMSULOSIN 0.4 MG CAP.ER.24H PO SCH (09:42)
[2023-05-27] MEDS: SENNOSIDES-DOCUSATE SODIUM 1 EACH TAB PO SCH ×2 (09:42→20:13)
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
[2023-05-27 11:49] LABS: Glucose,Whole Blood 146 mg/dL (70-110)
[2023-05-27] MEDS: IPRATROPIUM-ALBUTEROL 3 ML NEB INHALATION SCH ×3 (11:56→20:54)
[2023-05-27] MEDS ORDERED: ZINC OXIDE PASTE (Z-GUARD) 1 APPLIC TOPICAL PRN (13:54)
--- NOTE | 2023-05-27 15:20 | P.PN ---
Subjective Progress Note Date: 05/27/23 72-year-old male, history of coronary artery disease, COPD, hypertension, hyperlipidemia, chronic hypoxic/hypercapnic respiratory failure, patient uses O2 at 2 L per nasal cannula, presents emergency Department for difficulty breathing. Patient comes from a long-term where he is being rehabbed because of an injury to his arm and his leg. Patient is unaware of exactly how the injury occurred. Patient has been having a difficulty breathing since earlier today. Patient has a history of COPD. According to staff she was oxygenating in the 70s. Patient also 102 temp according to staff. Patient was not given Motrin or Tylenol. EMS arrived and the patient was on a nonrebreather and they gave him a breathing treatment on the way in and he was feeling better and didn't look as much distress. Patient had no complaints of any pain. Echo completed in ED reveals WBC of 13.6, hemoglobin of 9.1. Count of 306, sodium 129, potassium 4.4, BUN/creatinine of 20/0.65 d-dimer elevated at 1.89, troponin less than 0.012 -- Patient reports pain in right arm which is in a sling and is requesting Biofreeze - Has been evaluated by pulmonary and is recommended to continue IV Rocephin, azithromycin and IV Solu-Medrol; patient will continue with nebulizer treatments and Symbicort Objective - Vital Signs Vital signs: Vital Signs Temp 97.7 F 05/27/23 09:38 Pulse 80 05/27/23 11:56 Resp 18 05/27/23 11:56 BP 97/54 05/27/23 11:21 Pulse Ox 93 L 05/27/23 11:21 FiO2 50 05/26/23 10:30 Intake & Output 05/26/23 05/27/23 05/27/23 18:59 06:59 18:59 Intake Total 240 Output Total 450 Balance -450 240 Weight 74.389 kg 74.389 kg Intake: Oral 240 Output: Urine 450 Other: Voiding Method Urinal Urinal - Exam No acute distress, oriented 3. No conversational dyspnea or use of accessory muscles. Currently on 4 L. HEENT examination is grossly unremarkable. Mucous membranes are moist. No oral lesions. Neck supple. Full range of motion. No adenopathy thyromegaly or neck vein distention. Cardiovascular examination reveals regular rhythm rate. S1-S2 normal. No S3 or S4. No discernible murmur noted. Heart sounds are distant. Heart rate 76 bpm. Lungs reveal scattered bilateral rhonchi and expiratory wheezes. No crackles. Saturations are in the low 90s, on 4 L. Breath sounds are equal bilaterally but diminished throughout. Abdomen soft bowel sounds are heard. No masses or tenderness. Extremities are intact. No cyanosis clubbing or edema. Skin is without rash or lesion. Neurologic examination is brief but nonfocal. - Labs CBC & Chem 7: 05/27/23 08:10 05/27/23 08:10 Labs: Abnormal Lab Results - Last 24 Hours (Table) 05/27/23 05/27/23 05/27/23 Range/Units 06:20 06:40 08:10 WBC 11.2 H (3.8-10.6) k/uL RBC 3.11 L (4.30-5.90) m/uL Hgb 9.1 L (13.0-17.5) gm/dL Hct 28.6 L (39.0-53.0) % Neutrophils # 10.6 H (1.3-7.7) k/uL Lymphocytes # 0.3 L (1.0-4.8) k/uL Sodium (137-145) mmol/L Chloride (98-107) mmol/L BUN (9-20) mg/dL Glucose (74-99) mg/dL POC Glucose (mg/dL) 149 H (70-110) mg/dL Calcium (8.4-10.2) mg/dL Urine Protein Trace H (Negative) 05/27/23 05/27/23 Range/Units 08:10 11:46 WBC (3.8-10.6) k/uL RBC (4.30-5.90) m/uL Hgb (13.0-17.5) gm/dL Hct (39.0-53.0) % Neutrophils # (1.3-7.7) k/uL Lymphocytes # (1.0-4.8) k/uL Sodium 130 L (137-145) mmol/L Chloride 93 L (98-107) mmol/L BUN 23 H (9-20) mg/dL Glucose 189 H (74-99) mg/dL POC Glucose (mg/dL) 146 H (70-110) mg/dL Calcium 8.0 L (8.4-10.2) mg/dL Urine Protein (Negative) Assessment and Plan Assessment: 1. Acute on chronic hypoxic/hypercapnic respiratory failure - Patient will be continued on O2 per nasal cannula, titrate to wean as able 2. Acute exacerbation COPD; Solu-Medrol 60 mg IV every 6 hours; bronchodilator nebulizer treatments 4 times a day and when necessary -- She has been placed on IV antibiotics in form of Rocephin and azithromycin 2. Multifocal pneumonia; CT of the chest consistent with infectious versus aspiration pneumonia versus atypical mycobacterial/fungal infection - Patient is placed on IV antibiotics in form of Rocephin 2 g IV daily along with azithromycin 500 mg by mouth daily - We will monitor CBC, CMP and pro-calcitonin 3. Mediastinoscopy/hilar lymphadenopathy; likely reactive; patient will need outpatient follow-up 4. Elevated d-dimer; CT of the chest completed and is negative for PE 5. Abdominal pain; CT of the abdomen and pelvis completed in ED moderate to large hiatal with one third of the stomach located in her chest, renal calculi and diverticulosis without evidence for diverticulitis 6. Cholelithiasis; no signs of infection 7. Left-sided renal without hydronephrosis; patient will need outpatient urology follow-up 8. Hypertension; lisinopril 20 mg twice a day, metoprolol 12.5 mg daily 9. BPH; continue with home dose of Flomax DVT prophylaxis, SCDs/subcu heparin CODE STATUS, full code
[2023-05-27 16:55] LABS: Glucose,Whole Blood 171 mg/dL (70-110)
[2023-05-27] MEDS: DICLOFENAC SODIUM GEL 100 GM TUBE TOPICAL PRN (20:13)
[2023-05-27 20:34] LABS: Glucose,Whole Blood 228 mg/dL (70-110)
[2023-05-28] MEDS: methylPREDNISolone SOD SUCCI 125 MG/2 ML VIAL IV SCH ×4 (05:50→23:40)
[2023-05-28] MEDS: PANTOPRAZOLE 40 MG TABLET PO SCH (05:51)
[2023-05-28 06:06] LABS: Glucose,Whole Blood 166 mg/dL (70-110)
[2023-05-28] MEDS: INSULIN ASPART (NovoLOG) 100 UNIT/ML VIAL SQ SCH ×4 (06:12→20:01)
[2023-05-28] MEDS: DICLOFENAC SODIUM GEL 100 GM TUBE TOPICAL PRN ×3 (06:17→23:39)
[2023-05-28 08:07] LABS: Basophils % (A) 0 %; Eosinophils % (A) 0 %; HCT 25.8 % (39.0-53.0); HGB 8.4 gm/dL (13.0-17.5); Lymphocytes # (A) 0.3 k/uL (1.0-4.8); Lymphocytes % (A) 3 %; MCH 29.8 pg (25.0-35.0); MCHC 32.7 g/dL (31.0-37.0); MCV 91.2 fL (80.0-100.0); Mean Platelet Volume 7.4; Monocytes # (A) 0.2 k/uL (0-1.0); Monocytes % (A) 3 %; Neutrophils # (A) 8.2 k/uL (1.3-7.7); Neutrophils % (A) 93 %; Platelet Count 311 k/uL (150-450); RBC 2.83 m/uL (4.30-5.90); RDW 14.2 % (11.5-15.5); WBC 8.8 k/uL (3.8-10.6)
[2023-05-28] MEDS: SYMBICORT 160-4.5 MCG INHALER INHALATION SCH ×2 (08:15→21:17)
[2023-05-28] MEDS: IPRATROPIUM-ALBUTEROL 3 ML NEB INHALATION SCH ×4 (08:15→21:17)
[2023-05-28] MEDS: ASPIRIN 81 MG PO SCH ×2 (08:40→19:54)
[2023-05-28] MEDS: TAMSULOSIN 0.4 MG CAP.ER.24H PO SCH (08:40)
[2023-05-28] MEDS: METOPROLOL SUCCINATE (ER) 25 MG TAB.ER.24H PO SCH (08:40)
[2023-05-28] MEDS: SENNOSIDES-DOCUSATE SODIUM 1 EACH TAB PO SCH ×2 (08:40→19:54)
[2023-05-28] MEDS: lisinopriL 20 MG TAB PO SCH ×2 (08:40→19:54)
[2023-05-28] MEDS: AZITHROMYCIN 500 MG TAB PO SCH (08:40)
[2023-05-28 10:50] LABS: African American GFR (CKD) >90 (>60 ml/min/1.73 sqM); Anion Gap 6 mmol/L; Blood Urea Nitrogen 26 mg/dL (9-20); Calcium 7.9 mg/dL (8.4-10.2); Carbon Dioxide 29 mmol/L (22-30); Chloride 93 mmol/L (98-107); Glucose 120 mg/dL (74-99); Non-African American GFR(CKD) >90 (>60 ml/min/1.73 sqM); Potassium 4.6 mmol/L (3.5-5.1); Sodium 128 mmol/L (137-145)
[2023-05-28 11:35] LABS: Glucose,Whole Blood 147 mg/dL (70-110)
[2023-05-28] MEDS ORDERED: VANCOMYCIN IV PER PHARMACY 1 EACH MISC MISCELLANE PRN (13:16)
[2023-05-28 13:27] VITALS: BMI 27.5
[2023-05-28] MEDS: VANCOMYCIN 1,500 MG in SODIUM CHLORIDE 0.9% 500 ML 500 ML IVPB SCH ×2 (14:27→21:38)
[2023-05-28] MEDS: HYDROcodone/APAP 7.5-325MG 1 EACH TAB PO PRN ×2 (15:36→23:39)
--- NOTE | 2023-05-28 16:02 | P.PN ---
Subjective Progress Note Date: 05/28/23 72-year-old male who presents to the emergency department, complaining of shortness of breath. She apparently came in from a [facility], where he was rehabbing for a broken arm and leg. The patient has very severe COPD with an FEV1 that's 34% of predicted. He does use home oxygen at between 3-4 L/m. His primary care provider is Dr. Jamie Balderas, and he sees my partner in the office, for his COPD. The patient does continue to smoke cigarettes. He typically is on Symbicort, Ventolin inhaler, and a nebulizer machine. The patient is currently on Rocephin and Zithromax, for possible pneumonia. A pro-calcitonin level has been ordered. Clinically, the patient does not look overwhelmingly ill. In addition to COPD, he has a history of hypertension, and gastroesophageal reflux disease. He also has a history of CAD, deafness, hyperlipidemia, hypertension, laryngeal carcinoma, status post radiation, and kidney stones among other things. White count 11.2, hemoglobin 9.1, hematocrit 28.6, and platelet count 338,000. Sodium 1:30, potassium 4.5, chlorides 93, CO2 27, BUN 23, and creatinine 0.73. Calcium 8. Urine is negative. He tested negative for influenza, RSV, and coronavirus. Chest x-ray shows changes of COPD, with bilateral basilar airspace disease. On today's evaluation of 05/28/2023, I'm seeing the patient for a follow-up. The patient is having some congested cough and he was able to give me a sputum sample. She does have a hospital-acquired pneumonia and the patient has no infiltrates in the lung bases bilaterally. No reported aspiration. Note that the patient was in the hospital for a hip fracture and subsequently was sent to rehabilitation. No fever or chills at this point in time. His oxygen requirements are at 4 L of oxygen by nasal cannula with a pulse ox 95%. Note that the patient also has advanced COPD with an FEV1 of 34% of predicted. The white cell count of 8.8 with a hemoglobin of 8.4. Sodium level is at 128 and a potassium level of 4.6. The ends of 26 with a creatinine of 0.6. Patient is currently on IV Rocephin. The blood culture is negative the CAT scan of the chest showed lower lobe pulmonary infiltrates and a CAT scan of the abdomen showed a moderate to large hiatal hernia, left-sided renal calculus measuring 7 mm in size without any hydronephrosis, diverticulosis and a recent right hip arthroplasty with postsurgical soft tissue swelling. There is a seroma also measuring 2.8 cm in size by 28 cm in size. Objective - Vital Signs Vital signs: Vital Signs Temp 97.4 F L 05/28/23 08:40 Pulse 74 05/28/23 12:35 Resp 17 05/28/23 08:40 BP 110/52 05/28/23 08:40 Pulse Ox 92 L 05/28/23 08:40 FiO2 50 05/26/23 10:30 Intake & Output 05/27/23 05/28/23 05/28/23 18:59 06:59 18:59 Intake Total 480 20 Output Total 800 1100 Balance -320 -1080 Weight 89.5 kg Intake: IV 20 Invasive Line 1 10 Invasive Line 2 10 Oral 480 0 Output: Urine 800 1100 Other: Voiding Method Urinal Urinal Urinal - Exam No acute distress, oriented 3. No conversational dyspnea or use of accessory muscles. Currently on 4 L. HEENT examination is grossly unremarkable. Mucous membranes are moist. No oral lesions. Neck supple. Full range of motion. No adenopathy thyromegaly or neck vein distention. Cardiovascular examination reveals regular rhythm rate. S1-S2 normal. No S3 or S4. No discernible murmur noted. Heart sounds are distant. Lungs reveal scattered bilateral rhonchi and expiratory wheezes. No crackles. Breath sounds are equal bilaterally but diminished throughout. Abdomen soft bowel sounds are heard. No masses or tenderness. Extremities are intact. No cyanosis clubbing or edema. Skin is without rash or lesion. Neurologic examination is brief but nonfocal. - Labs CBC & Chem 7: 05/28/23 07:25 05/28/23 07:25 Labs: Abnormal Lab Results - Last 24 Hours (Table) 05/27/23 05/27/23 05/27/23 Range/Units 08:10 16:54 20:32 RBC (4.30-5.90) m/uL Hgb (13.0-17.5) gm/dL Hct (39.0-53.0) % Neutrophils # (1.3-7.7) k/uL Lymphocytes # (1.0-4.8) k/uL Sodium (137-145) mmol/L Chloride (98-107) mmol/L BUN (9-20) mg/dL Creatinine (0.66-1.25) mg/dL Glucose (74-99) mg/dL POC Glucose (mg/dL) 171 H 228 H (70-110) mg/dL Calcium (8.4-10.2) mg/dL Procalcitonin 3.25 H (0.02-0.09) ng/mL 05/28/23 05/28/23 05/28/23 Range/Units 06:04 07:25 07:25 RBC 2.83 L (4.30-5.90) m/uL Hgb 8.4 L (13.0-17.5) gm/dL Hct 25.8 L (39.0-53.0) % Neutrophils # 8.2 H (1.3-7.7) k/uL Lymphocytes # 0.3 L (1.0-4.8) k/uL Sodium 128 L (137-145) mmol/L Chloride 93 L (98-107) mmol/L BUN 26 H (9-20) mg/dL Creatinine 0.64 L (0.66-1.25) mg/dL Glucose 120 H (74-99) mg/dL POC Glucose (mg/dL) 166 H (70-110) mg/dL Calcium 7.9 L (8.4-10.2) mg/dL Procalcitonin (0.02-0.09) ng/mL 05/28/23 Range/Units 11:33 RBC (4.30-5.90) m/uL Hgb (13.0-17.5) gm/dL Hct (39.0-53.0) % Neutrophils # (1.3-7.7) k/uL Lymphocytes # (1.0-4.8) k/uL Sodium (137-145) mmol/L Chloride (98-107) mmol/L BUN (9-20) mg/dL Creatinine (0.66-1.25) mg/dL Glucose (74-99) mg/dL POC Glucose (mg/dL) 147 H (70-110) mg/dL Calcium (8.4-10.2) mg/dL Procalcitonin (0.02-0.09) ng/mL - Last 24 Hours (Table) 05/26/23 10:31 Blood Culture - Preliminary Blood Assessment and Plan Plan: Acute hypoxemic respiratory failure, secondary to COPD exacerbation, complicated by pneumonia. This is most likely hospital-acquired pneumonia involving the lung bases and the patient is currently on 4 L of oxygen by nasal cannula Hospital-acquired pneumonia, involving the lung bases bilaterally with secondary shortness of breath, No evidence of pulmonary embolism on CT angiogram. History of ongoing tobacco use with nicotine addiction. History of severe/stage III COPD, with an FEV1 that's 34% of predicted. History of hypertension. History of hyperlipidemia. History of BPH. History of laryngeal carcinoma, status post radiation treatments. History of kidney stones. Hearing loss. History of gastroesophageal reflux disease. History of fall with right femoral neck fracture post unipolar hemiarthroplasty Right proximal humeral neck/head fracture still wearing his sling Seroma measuring 28 x 3 cm in size, postsurgical in nature involving the right hip Large hiatal hernia Left sided renal calculus Cholelithiasis without cholecystitis Diverticulosis Plan We'll modify the patient's antibiotics. I'm going to stop the IV Rocephin up with the patient accommodation of Zosyn and vancomycin covering for hospital- acquired pathogens We'll ask orthopedic surgery to evaluate the surgical wound Continue wearing his sling regarding the right proximal humeral neck fracture Continue bronchodilators We'll put the patient on IV Solu-Medrol 60 mg every 6 hours Continue Symbicort We'll continue to follow, repeat chest x-ray within the next 24-48 hours Chronic constipation post enema and a component of urinary retention
[2023-05-28 16:25] LABS: Glucose,Whole Blood 233 mg/dL (70-110)
[2023-05-28] MEDS: PIPERACILLIN-TAZOBACTAM 3.375 GM in SODIUM CHLORIDE 0.9% 100 ML IVPB SCH ×2 (17:58→23:40)
[2023-05-28 19:50] LABS: Glucose,Whole Blood 165 mg/dL (70-110)
--- NOTE | 2023-05-28 21:55 | P.PN ---
Subjective 72-year-old male, history of coronary artery disease, COPD, hypertension, hyperlipidemia, chronic hypoxic/hypercapnic respiratory failure, patient uses O2 at 2 L per nasal cannula, presents emergency Department for difficulty breathing. Patient comes [facility] a [facility] where [facility] is being [facility] because of an injury to his arm and his leg. Patient is unaware of exactly how the injury occurred. Patient has been having a difficulty breathing since earlier today. Patient has a history of COPD. According to staff she was oxygenating in the 70s. Patient also 102 temp according to staff. Patient was not given Motrin or Tylenol. EMS arrived and the patient was on a nonrebreather and they gave him a breathing treatment on the way in and he was feeling better and didn't look as much distress. Patient had no complaints of any pain. Echo completed in ED reveals WBC of 13.6, hemoglobin of 9.1. Count of 306, sodium 129, potassium 4.4, BUN/creatinine of 20/0.65 d-dimer elevated at 1.89, troponin less than 0.012 -- Patient reports pain in right arm which is in a sling and is requesting Biofreeze - Has been evaluated by pulmonary and is recommended to continue IV Rocephin, azithromycin and IV Solu-Medrol; patient will continue with nebulizer treatments and Symbicort 05/28/2023 Patient states that his dyspnea is improving Postoperative his have coughing and cough medicine as provided for him He is on 3 L oxygen per minute which is his home dose. His WBC is normal at 8.8, hemoglobin 8.4, sodium 128. CTA of the chest is negative for PE Chest x-rays showing worsening infiltrates especially on the right side Antibiotics for change in to Zosyn and IV vancomycin for hospital-acquired pneumonia. Ulcers on IV Solu-Medrol 60 mg Objective - Vital Signs Vital signs: Vital Signs Temp 98.1 F 05/28/23 19:50 Pulse 64 05/28/23 21:30 Resp 18 05/28/23 19:50 BP 119/60 05/28/23 19:50 Pulse Ox 95 05/28/23 19:50 FiO2 50 05/26/23 10:30 Intake & Output 05/28/23 05/28/23 05/29/23 06:59 18:59 06:59 Intake Total 20 Output Total 1100 600 Balance -1080 -600 Weight 89.5 kg 89.5 kg Intake: IV 20 Invasive Line 1 10 Invasive Line 2 10 Oral 0 Output: Urine 1100 600 Other: Voiding Method Urinal Urinal Urinal # Bowel Movements 1 - Exam GENERAL: The patient is alert and oriented x3, not in any acute distress. Well developed, well nourished. HEENT: Pupils are round and equally reacting to light. EOMI. No scleral icterus. No conjunctival pallor. Normocephalic, atraumatic. No pharyngeal erythema. No thyromegaly. CARDIOVASCULAR: S1 and S2 present. No murmurs, rubs, or gallops. -PULMONARY: Chest is clear to auscultation, no wheezing , no crackles. Decreased breath sounds on the bases ABDOMEN: Soft, nontender, nondistended, normoactive bowel sounds. No palpable organomegaly. MUSCULOSKELETAL: No joint swelling or deformity. EXTREMITIES: No cyanosis, clubbing, or pedal edema. NEUROLOGICAL: Gross neurological examination did not reveal any focal deficits. SKIN: No rashes. no petechiae. - Labs CBC & Chem 7: 05/28/23 07:25 05/28/23 07:25 Labs: Abnormal Lab Results - Last 24 Hours (Table) 05/28/23 05/28/23 05/28/23 Range/Units 06:04 07:25 07:25 RBC 2.83 L (4.30-5.90) m/uL Hgb 8.4 L (13.0-17.5) gm/dL Hct 25.8 L (39.0-53.0) % Neutrophils # 8.2 H (1.3-7.7) k/uL Lymphocytes # 0.3 L (1.0-4.8) k/uL Sodium 128 L (137-145) mmol/L Chloride 93 L (98-107) mmol/L BUN 26 H (9-20) mg/dL Creatinine 0.64 L (0.66-1.25) mg/dL Glucose 120 H (74-99) mg/dL POC Glucose (mg/dL) 166 H (70-110) mg/dL Calcium 7.9 L (8.4-10.2) mg/dL 05/28/23 05/28/23 05/28/23 Range/Units 11:33 16:23 19:48 RBC (4.30-5.90) m/uL Hgb (13.0-17.5) gm/dL Hct (39.0-53.0) % Neutrophils # (1.3-7.7) k/uL Lymphocytes # (1.0-4.8) k/uL Sodium (137-145) mmol/L Chloride (98-107) mmol/L BUN (9-20) mg/dL Creatinine (0.66-1.25) mg/dL Glucose (74-99) mg/dL POC Glucose (mg/dL) 147 H 233 H 165 H (70-110) mg/dL Calcium (8.4-10.2) mg/dL Microbiology - Last 24 Hours (Table) 05/26/23 10:31 Blood Culture - Preliminary Blood Assessment and Plan Assessment: Bilateral basal hospital acquired pneumonia Acute COPD exacerbation Acute on chronic hypoxic respiratory failure Hyponatremia Chronic anemia Benign prostatic hypertrophy Hypertension Recent history of hip surgery status post [facility] Plan: Continue with antibiotic, Zosyn IV vancomycin Continue with IV symmetrical On oxygen A bronchodilator Pulmonary team consult Continue with symptomatic treatment Further recommendation based on the clinical course DVT prophylaxis aspirin twice a day GI prophylaxis Protonix
[2023-05-29 05:50] LABS: Glucose,Whole Blood 150 mg/dL (70-110)
[2023-05-29] MEDS: INSULIN ASPART (NovoLOG) 100 UNIT/ML VIAL SQ SCH ×4 (06:21→20:59)
[2023-05-29] MEDS: PANTOPRAZOLE 40 MG TABLET PO SCH (06:27)
[2023-05-29] MEDS: VANCOMYCIN 1,500 MG in SODIUM CHLORIDE 0.9% 500 ML 500 ML IVPB SCH ×2 (06:27→14:22)
[2023-05-29] MEDS: methylPREDNISolone SOD SUCCI 125 MG/2 ML VIAL IV SCH ×4 (06:28→23:31)
[2023-05-29] MEDS: HYDROcodone/APAP 7.5-325MG 1 EACH TAB PO PRN ×3 (08:20→21:41)
[2023-05-29 08:21] LABS: African American GFR (CKD) >90 (>60 ml/min/1.73 sqM); Non-African American GFR(CKD) 89 (>60 ml/min/1.73 sqM)
[2023-05-29] MEDS: PIPERACILLIN-TAZOBACTAM 3.375 GM in SODIUM CHLORIDE 0.9% 100 ML IVPB SCH ×3 (08:21→23:31)
[2023-05-29] MEDS: ASPIRIN 81 MG PO SCH ×2 (08:21→20:32)
[2023-05-29] MEDS: SENNOSIDES-DOCUSATE SODIUM 1 EACH TAB PO SCH ×2 (08:21→20:32)
[2023-05-29] MEDS: TAMSULOSIN 0.4 MG CAP.ER.24H PO SCH (08:21)
[2023-05-29] MEDS: METOPROLOL SUCCINATE (ER) 25 MG TAB.ER.24H PO SCH (08:21)
[2023-05-29] MEDS: lisinopriL 20 MG TAB PO SCH ×2 (08:21→20:32)
[2023-05-29] MEDS: IPRATROPIUM-ALBUTEROL 3 ML NEB INHALATION SCH ×4 (08:40→21:33)
[2023-05-29] MEDS: SYMBICORT 160-4.5 MCG INHALER INHALATION SCH ×2 (08:40→21:33)
--- NOTE | 2023-05-29 11:01 | P.PN ---
Subjective 72-year-old male, history of coronary artery disease, COPD, hypertension, hyperlipidemia, chronic hypoxic/hypercapnic respiratory failure, patient uses O2 at 2 L per nasal cannula, presents emergency Department for difficulty breathing. Patient comes from a care home where he is being rehabbed because of an injury to his arm and his leg. Patient is unaware of exactly how the injury occurred. Patient has been having a difficulty breathing since earlier today. Patient has a history of COPD. According to staff she was oxygenating in the 70s. Patient also 102 temp according to staff. Patient was not given Motrin or Tylenol. EMS arrived and the patient was on a nonrebreather and they gave him a breathing treatment on the way in and he was feeling better and didn't look as much distress. Patient had no complaints of any pain. Echo completed in ED reveals WBC of 13.6, hemoglobin of 9.1. Count of 306, sodium 129, potassium 4.4, BUN/creatinine of 20/0.65 d-dimer elevated at 1.89, troponin less than 0.012 -- Patient reports pain in right arm which is in a sling and is requesting Biofreeze - Has been evaluated by pulmonary and is recommended to continue IV Rocephin, azithromycin and IV Solu-Medrol; patient will continue with nebulizer treatments and Symbicort 05/28/2023 Patient states that his dyspnea is improving Postoperative his have coughing and cough medicine as provided for him He is on 3 L oxygen per minute which is his home dose. His WBC is normal at 8.8, hemoglobin 8.4, sodium 128. CTA of the chest is negative for PE Chest x-rays showing worsening infiltrates especially on the right side Antibiotics for change in to Zosyn and IV vancomycin for hospital-acquired pneumonia. Ulcers on IV Solu-Medrol 60 mg 05/29/2023 His breathing status is improving today after antibiotics was checked yesterday and to Zosyn and IV vancomycin for hospital acquired pneumonia rather than community-acquired pneumonia. Distal coughing. He is on home dose of 3 to oxygenating nasal cannula Objective - Vital Signs Vital signs: Vital Signs Temp 97.3 F L 05/29/23 08:20 Pulse 72 05/29/23 08:55 Resp 18 05/29/23 08:20 BP 134/76 05/29/23 08:20 Pulse Ox 93 L 05/29/23 08:20 FiO2 50 05/26/23 10:30 Intake & Output 05/28/23 05/29/23 05/29/23 18:59 06:59 18:59 Intake Total 240 Output Total 600 950 Balance -600 -950 240 Weight 89.5 kg Intake: Oral 240 Output: Urine 600 950 Other: Voiding Method Urinal Urinal Urinal # Bowel Movements 1 - Exam GENERAL: The patient is alert and oriented x3, not in any acute distress. Well developed, well nourished. HEENT: Pupils are round and equally reacting to light. EOMI. No scleral icterus. No conjunctival pallor. Normocephalic, atraumatic. No pharyngeal erythema. No thyromegaly. CARDIOVASCULAR: S1 and S2 present. No murmurs, rubs, or gallops. -PULMONARY: Chest is clear to auscultation, no wheezing , no crackles. Decreased breath sounds on the bases ABDOMEN: Soft, nontender, nondistended, normoactive bowel sounds. No palpable organomegaly. MUSCULOSKELETAL: No joint swelling or deformity. EXTREMITIES: No cyanosis, clubbing, or pedal edema. NEUROLOGICAL: Gross neurological examination did not reveal any focal deficits. SKIN: No rashes. no petechiae. - Labs CBC & Chem 7: 05/28/23 07:25 05/29/23 06:59 Labs: Abnormal Lab Results - Last 24 Hours (Table) 05/28/23 05/28/23 05/28/23 Range/Units 11:33 16:23 19:48 POC Glucose (mg/dL) 147 H 233 H 165 H (70-110) mg/dL 05/29/23 Range/Units 05:48 POC Glucose (mg/dL) 150 H (70-110) mg/dL Microbiology - Last 24 Hours (Table) 05/26/23 10:31 Blood Culture - Preliminary Blood Assessment and Plan Assessment: Bilateral basal hospital acquired pneumonia Acute COPD exacerbation Acute on chronic hypoxic respiratory failure Hyponatremia Chronic anemia Benign prostatic hypertrophy Hypertension Recent history of hip surgery status post [facility] Plan: Continue with antibiotic, Zosyn IV vancomycin Continue with IV symmetrical On oxygen A bronchodilator Pulmonary team consult Continue with symptomatic treatment Further recommendation based on the clinical course DVT prophylaxis aspirin twice a day GI prophylaxis Protonix
[2023-05-29] MEDS: DICLOFENAC SODIUM GEL 100 GM TUBE TOPICAL PRN ×2 (11:38→20:32)
[2023-05-29 11:42] LABS: Glucose,Whole Blood 97 mg/dL (70-110)
--- NOTE | 2023-05-29 12:56 | P.PN ---
Subjective Progress Note Date: 05/29/23 72-year-old male who presents to the emergency department, complaining of shortness of breath. She apparently came in from a shelter, where he was rehabbing for a broken arm and leg. The patient has very severe COPD with an FEV1 that's 34% of predicted. He does use home oxygen at between 3-4 L/m. His primary care provider is Dr. Jamie Balderas, and he sees my partner in the office, for his COPD. The patient does continue to smoke cigarettes. He typically is on Symbicort, Ventolin inhaler, and a nebulizer machine. The patient is currently on Rocephin and Zithromax, for possible pneumonia. A pro-calcitonin level has been ordered. Clinically, the patient does not look overwhelmingly ill. In addition to COPD, he has a history of hypertension, and gastroesophageal reflux disease. He also has a history of CAD, deafness, hyperlipidemia, hypertension, laryngeal carcinoma, status post radiation, and kidney stones among other things. White count 11.2, hemoglobin 9.1, hematocrit 28.6, and platelet count 338,000. Sodium 1:30, potassium 4.5, chlorides 93, CO2 27, BUN 23, and creatinine 0.73. Calcium 8. Urine is negative. He tested negative for influenza, RSV, and coronavirus. Chest x-ray shows changes of COPD, with bilateral basilar airspace disease. On today's evaluation of 05/28/2023, I'm seeing the patient for a follow-up. The patient is having some congested cough and he was able to give me a sputum sample. She does have a hospital-acquired pneumonia and the patient has no infiltrates in the lung bases bilaterally. No reported aspiration. Note that the patient was in the hospital for a hip fracture and subsequently was sent to rehabilitation. No fever or chills at this point in time. His oxygen requirements are at 4 L of oxygen by nasal cannula with a pulse ox 95%. Note that the patient also has advanced COPD with an FEV1 of 34% of predicted. The white cell count of 8.8 with a hemoglobin of 8.4. Sodium level is at 128 and a potassium level of 4.6. The ends of 26 with a creatinine of 0.6. Patient is currently on IV Rocephin. The blood culture is negative the CAT scan of the chest showed lower lobe pulmonary infiltrates and a CAT scan of the abdomen showed a moderate to large hiatal hernia, left-sided renal calculus measuring 7 mm in size without any hydronephrosis, diverticulosis and a recent right hip arthroplasty with postsurgical soft tissue swelling. There is a seroma also measuring 2.8 cm in size by 28 cm in size. On today's evaluation of 05/29/2023, the patient is being treated for bilateral pneumonia. The patient is currently on a combination of Zosyn and vancomycin. He is also on bronchodilators. He remains on IV Solu-Medrol. Cough and congestion is improved. Sputum sample that was collected earlier was positive for Queenie. No fever. No chills. No other new complaints. No shortness of breath. He shortness of breath continued to improve. Renal function stable with a creatinine of 0.8. The rest of the records is still pending for now. Blood sugar this morning is at 97. Objective - Vital Signs Vital signs: Vital Signs Temp 97.3 F L 05/29/23 08:20 Pulse 72 05/29/23 08:55 Resp 18 05/29/23 08:20 BP 134/76 05/29/23 08:20 Pulse Ox 93 L 05/29/23 08:20 FiO2 50 05/26/23 10:30 Intake & Output 05/28/23 05/29/23 05/29/23 18:59 06:59 18:59 Intake Total 240 Output Total 600 950 Balance -600 -950 240 Weight 89.5 kg Intake: Oral 240 Output: Urine 600 950 Other: Voiding Method Urinal Urinal Urinal # Bowel Movements 1 - Exam No acute distress, oriented 3. No conversational dyspnea or use of accessory muscles. Currently on 4 L. HEENT examination is grossly unremarkable. Mucous membranes are moist. No oral lesions. Neck supple. Full range of motion. No adenopathy thyromegaly or neck vein distention. Cardiovascular examination reveals regular rhythm rate. S1-S2 normal. No S3 or S4. No discernible murmur noted. Heart sounds are distant. Lungs reveal scattered bilateral rhonchi and expiratory wheezes. No crackles. Breath sounds are equal bilaterally but diminished throughout. Abdomen soft bowel sounds are heard. No masses or tenderness. Extremities are intact. No cyanosis clubbing or edema. Skin is without rash or lesion. Neurologic examination is brief but nonfocal. - Labs CBC & Chem 7: 05/28/23 07:25 05/29/23 06:59 Labs: Abnormal Lab Results - Last 24 Hours (Table) 05/28/23 05/28/23 05/28/23 Range/Units 11:33 16:23 19:48 POC Glucose (mg/dL) 147 H 233 H 165 H (70-110) mg/dL 05/29/23 Range/Units 05:48 POC Glucose (mg/dL) 150 H (70-110) mg/dL Microbiology - Last 24 Hours (Table) 05/28/23 04:30 Gram Stain - Preliminary Sputum Sputum Culture - Preliminary Queenie albicans 05/26/23 10:31 Blood Culture - Preliminary Blood Assessment and Plan Plan: Acute hypoxemic respiratory failure, secondary to COPD exacerbation, complicated by pneumonia. This is most likely hospital-acquired pneumonia involving the lung bases and the patient is currently on 3 L of oxygen by nasal cannula Hospital-acquired pneumonia, involving the lung bases bilaterally with secondary shortness of breath, No evidence of pulmonary embolism on CT angiogram. Clinically the patient is improving. History of ongoing tobacco use with nicotine addiction. History of severe/stage III COPD, with an FEV1 that's 34% of predicted. History of hypertension. History of hyperlipidemia. History of BPH. History of laryngeal carcinoma, status post radiation treatments. History of kidney stones. Hearing loss. History of gastroesophageal reflux disease. History of fall with right femoral neck fracture post unipolar hemiarthroplasty Right proximal humeral neck/head fracture still wearing his sling Seroma measuring 28 x 3 cm in size, postsurgical in nature involving the right hip Large hiatal hernia Left sided renal calculus Cholelithiasis without cholecystitis Diverticulosis Plan Continue the combination of Zosyn and vancomycin covering for hospital-acquired pathogens Continue wearing his sling regarding the right proximal humeral neck fracture Continue bronchodilators Continue IV Solu-Medrol 60 mg every 6 hours Continue Symbicort Repeat chest x-ray in the morning Wean down FiO2 as tolerated currently on 3 L
[2023-05-29] MEDS ORDERED: VANCOMYCIN TROUGH DUE 1 EACH MISC MISCELLANE ONE (13:00)
--- NOTE | 2023-05-29 14:55 | CDI ---
Documentation Clarification Form Date: 05/29/23 From: David Nunn, NORA, RN Phone: [phone] Admit Date: 05/26/2023 01:36:00 PM Patient Name: Adam Olivo Visit Number: [id number] ATTENTION: The Clinical Documentation Specialists (CDI) and [facility] Coding Staff appreciate your assistance in clarifying documentation. Please respond to the clarification below the line at the bottom and electronically sign. The CDI & [facility] Coding staff will review the response and follow-up if needed. Please note: Queries are made part of the Legal Health Record. If you have any questions, please contact the author of this message via ITS. Dr. Lisa Quintanilla the combination of Zosyn and vancomycin covering for hospital-acquired Pathogens was documented in the progress note on 05/29. Additional clarification regarding the type of pneumonia is requested. History/Risk Factors: I'm going to stop the IV Rocephin and add Zosyn and vancomycin covering for hospital- acquired pathogens (Pulmonology PN 05/28) Hospital acquired pneumonia. Note the patient was in the hospital for a hip fracture and was sent to rehab was documented in the Pulmonology progress note on 05/29 "Came from care home where he was rehabbing for a broken arm and leg. Severe COPD, uses home oxygen and a nebulizer machine. PMH laryngeal carcinoma, s/p radiation" (Pulmonary consult 05/27). Clinical Indicators: Procalcitonin 3.5 (Labs, 05/27) WBC rends 05/26-05/28 13.6 ?11.2? 8.8 (labs) CXR 05/26 Bibasilar airspace opacities with cardiomegaly (reports) CXR 05/27 COPD with ongoing interstitial densities and focal bibasilar airspace disease. Correlate for infectious or aspiration pneumonitis including the possibility of atypical/COVID pneumonias. (reports) Sputum culture 05/28 report many vale albicans, many normal respiratory anum in addition to the reported isolates (Microbiology) Multifocal pneumonia; CT of the chest consistent with infectious versus aspiration pneumonia versus atypical mycobacterial/fungal infection - Patient is placed on IV antibiotics in form of Rocephin 2 g IV daily along with azithromycin 500 mg by mouth daily (H&P 05/27) Treatment (orders/AUG): Azithromycin 500 mg IVPB in ED 05/27, then 500 mg PO daily (dcd 05/28) Rocephin 2 gm IVP q24h ordered 05/26, dcd Vancomycin pharmacy to dose ordered 05/28, Zosyn 3.375 gm IVPB q8h ordered 05/28 Solu-Medrol 60 mg IVP Q6h ordered 05/26 Symbicort 2 puff BID ordered 05/26 DuoNeb QID ordered 05/27 After work up and study, can the pneumonia be further specified as: [ x Hospital acquired pneumonia most likely gram-negative bacterial pneumonia [ ] Pseudomonas pneumonia [ ] Bacterial Pneumonia, most likely gram-positive [ ] Bacterial pneumonia, unspecified [ ] Candidal pneumonia [ ] Other, please specify [ ] Unable to determine/Unknown MTDD
[2023-05-29] MEDS: VANCOMYCIN 1,750 MG in SODIUM CHLORIDE 0.9% 500 ML 500 ML IVPB SCH (16:00)
[2023-05-29 16:29] LABS: Glucose,Whole Blood 133 mg/dL (70-110)
[2023-05-29 20:56] LABS: Glucose,Whole Blood 156 mg/dL (70-110)
[2023-05-29] MEDS: NYSTATIN 100,000 UNIT/ML SUSP 500,000 UNIT/5 ML CUP PO SCH (21:42)
[2023-05-30] MEDS: HYDROcodone/APAP 7.5-325MG 1 EACH TAB PO PRN ×4 (03:23→23:52)
[2023-05-30] MEDS: VANCOMYCIN 1,750 MG in SODIUM CHLORIDE 0.9% 500 ML 500 ML IVPB SCH ×2 (03:32→17:29)
[2023-05-30 06:11] LABS: Glucose,Whole Blood 106 mg/dL (70-110)
[2023-05-30] MEDS: INSULIN ASPART (NovoLOG) 100 UNIT/ML VIAL SQ SCH ×4 (06:13→21:54)
[2023-05-30] MEDS: PANTOPRAZOLE 40 MG TABLET PO SCH (06:16)
[2023-05-30] MEDS: DICLOFENAC SODIUM GEL 100 GM TUBE TOPICAL PRN ×2 (06:16→21:55)
[2023-05-30] MEDS: methylPREDNISolone SOD SUCCI 125 MG/2 ML VIAL IV SCH ×4 (06:16→23:53)
[2023-05-30] MEDS: IPRATROPIUM-ALBUTEROL 3 ML NEB INHALATION SCH ×4 (07:48→21:11)
[2023-05-30] MEDS: SYMBICORT 160-4.5 MCG INHALER INHALATION SCH ×2 (07:48→21:11)
[2023-05-30] MEDS: ASPIRIN 81 MG PO SCH ×2 (08:55→20:27)
[2023-05-30] MEDS: SENNOSIDES-DOCUSATE SODIUM 1 EACH TAB PO SCH ×2 (08:55→20:27)
[2023-05-30] MEDS: lisinopriL 20 MG TAB PO SCH ×2 (08:55→20:27)
[2023-05-30] MEDS: TAMSULOSIN 0.4 MG CAP.ER.24H PO SCH (08:55)
[2023-05-30] MEDS: METOPROLOL SUCCINATE (ER) 25 MG TAB.ER.24H PO SCH (08:55)
[2023-05-30] MEDS: PIPERACILLIN-TAZOBACTAM 3.375 GM in SODIUM CHLORIDE 0.9% 100 ML IVPB SCH ×3 (08:56→23:55)
[2023-05-30] MEDS: NYSTATIN 100,000 UNIT/ML SUSP 500,000 UNIT/5 ML CUP PO SCH ×4 (08:56→20:27)
--- NOTE | 2023-05-30 10:02 | XR ---
EXAMINATION TYPE: XR chest 1V DATE OF EXAM: 05/30/2023 7:15 AM CLINICAL INDICATION:Male, 72 years old with history of pneumonia; H COMPARISON: Chest radiographs from 05/27/2023 TECHNIQUE: XR chest 1V Frontal view of the chest. FINDINGS: Lungs/Pleura: Multifocal airspace opacities. No evidence of pneumothorax or pleural effusion. Pulmonary vascularity: Unremarkable. Heart/mediastinum: Cardiomediastinal silhouette is partially obscured due to overlying and adjacent o pacities. Musculoskeletal: No acute osseous pathology. IMPRESSION: Persistent bibasilar airspace opacities.
--- NOTE | 2023-05-30 11:02 | P.PN ---
Subjective 72-year-old male, history of coronary artery disease, COPD, hypertension, hyperlipidemia, chronic hypoxic/hypercapnic respiratory failure, patient uses O2 at 2 L per nasal cannula, presents emergency Department for difficulty breathing. Patient comes from a custodial where he is being rehabbed because of an injury to his arm and his leg. Patient is unaware of exactly how the injury occurred. Patient has been having a difficulty breathing since earlier today. Patient has a history of COPD. According to staff she was oxygenating in the 70s. Patient also 102 temp according to staff. Patient was not given Motrin or Tylenol. EMS arrived and the patient was on a nonrebreather and they gave him a breathing treatment on the way in and he was feeling better and didn't look as much distress. Patient had no complaints of any pain. Echo completed in ED reveals WBC of 13.6, hemoglobin of 9.1. Count of 306, sodium 129, potassium 4.4, BUN/creatinine of 20/0.65 d-dimer elevated at 1.89, troponin less than 0.012 -- Patient reports pain in right arm which is in a sling and is requesting Biofreeze - Has been evaluated by pulmonary and is recommended to continue IV Rocephin, azithromycin and IV Solu-Medrol; patient will continue with nebulizer treatments and Symbicort 05/28/2023 Patient states that his dyspnea is improving Postoperative his have coughing and cough medicine as provided for him He is on 3 L oxygen per minute which is his home dose. His WBC is normal at 8.8, hemoglobin 8.4, sodium 128. CTA of the chest is negative for PE Chest x-rays showing worsening infiltrates especially on the right side Antibiotics for change in to Zosyn and IV vancomycin for hospital-acquired pneumonia. Ulcers on IV Solu-Medrol 60 mg 05/29/2023 His breathing status is improving today after antibiotics was checked yesterday and to Zosyn and IV vancomycin for hospital acquired pneumonia rather than community-acquired pneumonia. Distal coughing. He is on home dose of 3 to oxygenating nasal cannula 05/30/2023 Patient breathing is a stable. He is at home dose of oxygen at 3-4 L/m. His repeat chest x-ray shows stable bibasilar findings. Remains on Zosyn and IV vancomycin. Creatinine stable 0.8, sodium level is pending for today. Patient will be discharged back to rehab when cleared medically Objective - Vital Signs Vital signs: Vital Signs Temp 97.6 F 05/30/23 08:00 Pulse 72 05/30/23 08:04 Resp 20 05/30/23 08:00 BP 135/69 05/30/23 08:00 Pulse Ox 94 L 05/30/23 08:00 FiO2 50 05/26/23 10:30 Intake & Output 05/29/23 05/30/23 05/30/23 18:59 06:59 18:59 Intake Total 712 540 540 Output Total 800 575 Balance -88 -35 540 Intake: Oral 712 540 540 Output: Urine 800 575 Other: Voiding Method Urinal Urinal Urinal - Exam GENERAL: The patient is alert and oriented x3, not in any acute distress. Well developed, well nourished. HEENT: Pupils are round and equally reacting to light. EOMI. No scleral icterus. No conjunctival pallor. Normocephalic, atraumatic. No pharyngeal erythema. No thyromegaly. CARDIOVASCULAR: S1 and S2 present. No murmurs, rubs, or gallops. -PULMONARY: Chest is clear to auscultation, no wheezing , no crackles. Decreased breath sounds on the bases ABDOMEN: Soft, nontender, nondistended, normoactive bowel sounds. No palpable organomegaly. MUSCULOSKELETAL: No joint swelling or deformity. EXTREMITIES: No cyanosis, clubbing, or pedal edema. NEUROLOGICAL: Gross neurological examination did not reveal any focal deficits. SKIN: No rashes. no petechiae. - Labs CBC & Chem 7: 05/28/23 07:25 05/29/23 06:59 Labs: Abnormal Lab Results - Last 24 Hours (Table) 05/29/23 05/29/23 Range/Units 16:28 20:41 POC Glucose (mg/dL) 133 H 156 H (70-110) mg/dL Microbiology - Last 24 Hours (Table) 05/28/23 04:30 Gram Stain - Final Sputum Sputum Culture - Final Queenie albicans 05/26/23 10:31 Blood Culture - Preliminary Blood Assessment and Plan Assessment: Bilateral basal hospital acquired pneumonia Acute COPD exacerbation Acute on chronic hypoxic respiratory failure Hyponatremia Chronic anemia Benign prostatic hypertrophy Hypertension Recent history of hip surgery status post CHICO Plan: Continue with antibiotic, Zosyn IV vancomycin Continue with IV symmetrical On oxygen A bronchodilator Pulmonary team consult Continue with symptomatic treatment Further recommendation based on the clinical course DVT prophylaxis aspirin twice a day GI prophylaxis Protonix
[2023-05-30 11:31] LABS: Glucose,Whole Blood 111 mg/dL (70-110)
[2023-05-30 11:44] LABS: Potassium 4.3 mmol/L (3.5-5.1)
--- NOTE | 2023-05-30 12:25 | P.PN ---
Subjective Progress Note Date: 05/30/23 72-year-old male who presents to the emergency department, complaining of shortness of breath. She apparently came in from a [facility], where he was rehabbing for a broken arm and leg. The patient has very severe COPD with an FEV1 that's 34% of predicted. He does use home oxygen at between 3-4 L/m. His primary care provider is Dr. Jamie Balderas, and he sees my partner in the office, for his COPD. The patient does continue to smoke cigarettes. He typically is on Symbicort, Ventolin inhaler, and a nebulizer machine. The patient is currently on Rocephin and Zithromax, for possible pneumonia. A pro-calcitonin level has been ordered. Clinically, the patient does not look overwhelmingly ill. In addition to COPD, he has a history of hypertension, and gastroesophageal reflux disease. He also has a history of CAD, deafness, hyperlipidemia, hypertension, laryngeal carcinoma, status post radiation, and kidney stones among other things. White count 11.2, hemoglobin 9.1, hematocrit 28.6, and platelet count 338,000. Sodium 1:30, potassium 4.5, chlorides 93, CO2 27, BUN 23, and creatinine 0.73. Calcium 8. Urine is negative. He tested negative for influenza, RSV, and coronavirus. Chest x-ray shows changes of COPD, with bilateral basilar airspace disease. On today's evaluation of 05/28/2023, I'm seeing the patient for a follow-up. The patient is having some congested cough and he was able to give me a sputum sample. She does have a hospital-acquired pneumonia and the patient has no infiltrates in the lung bases bilaterally. No reported aspiration. Note that the patient was in the hospital for a hip fracture and subsequently was sent to rehabilitation. No fever or chills at this point in time. His oxygen requirements are at 4 L of oxygen by nasal cannula with a pulse ox 95%. Note that the patient also has advanced COPD with an FEV1 of 34% of predicted. The white cell count of 8.8 with a hemoglobin of 8.4. Sodium level is at 128 and a potassium level of 4.6. The ends of 26 with a creatinine of 0.6. Patient is currently on IV Rocephin. The blood culture is negative the CAT scan of the chest showed lower lobe pulmonary infiltrates and a CAT scan of the abdomen showed a moderate to large hiatal hernia, left-sided renal calculus measuring 7 mm in size without any hydronephrosis, diverticulosis and a recent right hip arthroplasty with postsurgical soft tissue swelling. There is a seroma also measuring 2.8 cm in size by 28 cm in size. On today's evaluation of 05/29/2023, the patient is being treated for bilateral pneumonia. The patient is currently on a combination of Zosyn and vancomycin. He is also on bronchodilators. He remains on IV Solu-Medrol. Cough and congestion is improved. Sputum sample that was collected earlier was positive for Queenie. No fever. No chills. No other new complaints. No shortness of breath. He shortness of breath continued to improve. Renal function stable with a creatinine of 0.8. The rest of the records is still pending for now. Blood sugar this morning is at 97. On today's evaluation of 05/30/2023, the patient is still on a combination of Zosyn and vancomycin. Repeat chest x-ray was done and the patient showed again presence of a persistent multifocal airspace disease bilaterally without any s ignificant interval change. He does have some oropharyngeal candidiasis and he was started also on nystatin. He is afebrile. Blood work shows a sodium level of 131, potassium level of 4.3, serum bicarbs at 24. The vancomycin trough is at 21. Oxygen requirements is unchanged and the patient remains on 4 L of O2 nasal cannula. Surgical one-sided over the right hip is dry clean and intact. He is wearing a sling. Is also wearing a both in his right lower extremity. Objective - Vital Signs Vital signs: Vital Signs Temp 97.6 F 05/30/23 08:00 Pulse 72 05/30/23 11:34 Resp 20 05/30/23 08:00 BP 135/69 05/30/23 08:00 Pulse Ox 94 L 05/30/23 08:00 FiO2 50 05/26/23 10:30 Intake & Output 05/29/23 05/30/23 05/30/23 18:59 06:59 18:59 Intake Total 712 540 540 Output Total 800 575 Balance -88 -35 540 Intake: Oral 712 540 540 Output: Urine 800 575 Other: Voiding Method Urinal Urinal Urinal - Labs CBC & Chem 7: 05/28/23 07:25 05/30/23 06:58 Labs: Abnormal Lab Results - Last 24 Hours (Table) 05/29/23 05/29/23 05/30/23 Range/Units 16:28 20:41 06:58 Sodium 131 L (137-145) mmol/L POC Glucose (mg/dL) 133 H 156 H (70-110) mg/dL 05/30/23 Range/Units 11:29 Sodium (137-145) mmol/L POC Glucose (mg/dL) 111 H (70-110) mg/dL Microbiology - Last 24 Hours (Table) 05/28/23 04:30 Gram Stain - Final Sputum Sputum Culture - Final Queenie albicans 05/26/23 10:31 Blood Culture - Preliminary Blood Assessment and Plan Plan: Acute hypoxemic respiratory failure, secondary to COPD exacerbation, complicated by pneumonia. This is most likely hospital-acquired pneumonia involving the lung bases and the patient is currently on 4 L of oxygen by nasal cannula Hospital-acquired pneumonia, involving the lung bases bilaterally with secondary shortness of breath, No evidence of pulmonary embolism on CT angiogram. Clinically the patient is improving. Nevertheless, the chest x-ray still showing persistent bilateral pulmonary infiltrates and consolidations, unchanged compared to the earlier chest x-ray. Oropharyngeal candidiasis History of ongoing tobacco use with nicotine addiction. History of severe/stage III COPD, with an FEV1 that's 34% of predicted. History of hypertension. History of hyperlipidemia. History of BPH. History of laryngeal carcinoma, status post radiation treatments. History of kidney stones. Hearing loss. History of gastroesophageal reflux disease. History of fall with right femoral neck fracture post unipolar hemiarthroplasty Right proximal humeral neck/head fracture still wearing his sling Seroma measuring 28 x 3 cm in size, postsurgical in nature involving the right hip Large hiatal hernia Left sided renal calculus Cholelithiasis without cholecystitis Diverticulosis Plan Continue same management Continue the combination of Zosyn and vancomycin covering for hospital-acquired pathogens Continue wearing his sling regarding the right proximal humeral neck fracture Continue bronchodilators Continue IV Solu-Medrol 60 mg every 6 hours Continue Symbicort We'll continue to follow. We'll request orthopedic surgery to evaluate the hip and the need for ongoing use of a boot
[2023-05-30 16:41] LABS: Glucose,Whole Blood 177 mg/dL (70-110)
[2023-05-30 17:21] LABS: African American GFR (CKD) >90 (>60 ml/min/1.73 sqM); Non-African American GFR(CKD) >90 (>60 ml/min/1.73 sqM)
--- NOTE | 2023-05-30 17:26 | XR ---
EXAMINATION TYPE: XR shoulder complete 3 views RT, XR Hip Limited 1 view RT DATE OF EXAM: 05/30/2023 Comparison: Prior right humerus 05/10/2023 Clinical History: 72-year-old male Follow-up right proximal humerus fracture. Postop follow-up right hip Findings: Right shoulder: Mild soft tissue swelling overlying the shoulder. There is a comminuted fracture redemonstrated of the proximal right humerus. There appears to have be en some interval anterior medial displacement by approximately 1 cm of the surgical neck component an d greater degree of impaction. Greater tuberosity component displaced by approximately 5 mm. Some ant erior apex angulation is suggested. Suspect old healed right posterior sixth rib fracture deformity. Right hip: There is a right hip hemiarthroplasty demonstrated. Mild axial joint space narrowing of the [place] ac etabular articular cartilage. The femoral stem component appears well seated without gross fracture. Alignment grossly anatomic. Impression: 1. Right shoulder: Comminuted two-part fracture proximal right humerus with impacted surgical neck co mponent. Greater tuberosity fracture component is displaced slightly by 5 mm. As compared to 3, there appears to be greater degree of impaction and anteromedial displacement of 1 cm. 2. Right hip: Uncomplicated right hip hemiarthroplasty.
[2023-05-30 20:14] LABS: Glucose,Whole Blood 160 mg/dL (70-110)
[2023-05-31] MEDS: VANCOMYCIN 1,750 MG in SODIUM CHLORIDE 0.9% 500 ML 500 ML IVPB SCH ×2 (04:14→16:49)
[2023-05-31 06:17] LABS: Glucose,Whole Blood 145 mg/dL (70-110)
[2023-05-31] MEDS: INSULIN ASPART (NovoLOG) 100 UNIT/ML VIAL SQ SCH ×4 (06:23→20:03)
[2023-05-31] MEDS: methylPREDNISolone SOD SUCCI 125 MG/2 ML VIAL IV SCH ×4 (06:27→23:09)
[2023-05-31] MEDS: HYDROcodone/APAP 7.5-325MG 1 EACH TAB PO PRN ×3 (06:27→23:09)
[2023-05-31] MEDS: PANTOPRAZOLE 40 MG TABLET PO SCH (06:28)
[2023-05-31 07:46] LABS: African American GFR (CKD) >90 (>60 ml/min/1.73 sqM); Non-African American GFR(CKD) >90 (>60 ml/min/1.73 sqM)
[2023-05-31] MEDS: IPRATROPIUM-ALBUTEROL 3 ML NEB INHALATION SCH ×4 (08:03→21:03)
[2023-05-31] MEDS: SYMBICORT 160-4.5 MCG INHALER INHALATION SCH ×2 (08:03→21:03)
[2023-05-31] MEDS: ASPIRIN 81 MG PO SCH ×2 (08:58→23:09)
[2023-05-31] MEDS: METOPROLOL SUCCINATE (ER) 25 MG TAB.ER.24H PO SCH (08:58)
[2023-05-31] MEDS: NYSTATIN 100,000 UNIT/ML SUSP 500,000 UNIT/5 ML CUP PO SCH ×4 (08:59→23:09)
[2023-05-31] MEDS: SENNOSIDES-DOCUSATE SODIUM 1 EACH TAB PO SCH ×2 (08:59→20:03)
[2023-05-31] MEDS: PIPERACILLIN-TAZOBACTAM 3.375 GM in SODIUM CHLORIDE 0.9% 100 ML IVPB SCH ×3 (08:59→23:08)
[2023-05-31] MEDS: TAMSULOSIN 0.4 MG CAP.ER.24H PO SCH (08:59)
[2023-05-31] MEDS: lisinopriL 20 MG TAB PO SCH ×2 (08:59→23:09)
--- NOTE | 2023-05-31 10:50 | XR ---
EXAMINATION TYPE: XR ankle complete RT DATE OF EXAM: 05/31/2023 8:53 AM CLINICAL INDICATION:Male, 72 years old with history of follow up poss fib fx; [facility] COMPARISON: 05/11/2023. TECHNIQUE: XR ankle complete RT; ankle is imaged in frontal, lateral and oblique projections. FINDINGS: There is no evidence of acute osseous pathology. The joint spaces are well-preserved without evidenc e of subluxation or dislocation. Kager's fat pad is intact. Mild soft tissue swelling around the ankl e. No radiopaque foreign bodies are identified. Calcaneal plantar spurring. IMPRESSION: Increasing soft tissue swelling around the ankle consider further evaluation with cross-sectional timothy ging possibly MRI as clinically warranted. No fracture line is identified..
[2023-05-31] MEDS ORDERED: HYDROcodone/APAP 7.5-325MG 1 EACH TAB PO ONE (11:16)
[2023-05-31 11:31] LABS: Glucose,Whole Blood 116 mg/dL (70-110)
--- NOTE | 2023-05-31 11:34 | P.PN ---
Subjective 72-year-old male, history of coronary artery disease, COPD, hypertension, hyperlipidemia, chronic hypoxic/hypercapnic respiratory failure, patient uses O2 at 2 L per nasal cannula, presents emergency Department for difficulty breathing. Patient comes from a residential where he is being rehabbed because of an injury to his arm and his leg. Patient is unaware of exactly how the injury occurred. Patient has been having a difficulty breathing since earlier today. Patient has a history of COPD. According to staff she was oxygenating in the 70s. Patient also 102 temp according to staff. Patient was not given Motrin or Tylenol. EMS arrived and the patient was on a nonrebreather and they gave him a breathing treatment on the way in and he was feeling better and didn't look as much distress. Patient had no complaints of any pain. Echo completed in ED reveals WBC of 13.6, hemoglobin of 9.1. Count of 306, sodium 129, potassium 4.4, BUN/creatinine of 20/0.65 d-dimer elevated at 1.89, troponin less than 0.012 -- Patient reports pain in right arm which is in a sling and is requesting Biofreeze - Has been evaluated by pulmonary and is recommended to continue IV Rocephin, azithromycin and IV Solu-Medrol; patient will continue with nebulizer treatments and Symbicort 05/28/2023 Patient states that his dyspnea is improving Postoperative his have coughing and cough medicine as provided for him He is on 3 L oxygen per minute which is his home dose. His WBC is normal at 8.8, hemoglobin 8.4, sodium 128. CTA of the chest is negative for PE Chest x-rays showing worsening infiltrates especially on the right side Antibiotics for change in to Zosyn and IV vancomycin for hospital-acquired pneumonia. Ulcers on IV Solu-Medrol 60 mg 05/29/2023 His breathing status is improving today after antibiotics was checked yesterday and to Zosyn and IV vancomycin for hospital acquired pneumonia rather than community-acquired pneumonia. Distal coughing. He is on home dose of 3 to oxygenating nasal cannula 05/30/2023 Patient breathing is a stable. He is at home dose of oxygen at 3-4 L/m. His repeat chest x-ray shows stable bibasilar findings. Remains on Zosyn and IV vancomycin. Creatinine stable 0.8, sodium level is pending for today. Patient will be discharged back to rehab when cleared medically 05/31/2023 Patient breathing quietly at bedside, I still have some degree of wheezing and limited air entry in both sides Patient complaining of from pain in his right shoulder. Right ankle x-ray: Increasing soft tissue swelling around the ankle Right shoulder and hip x-ray: Comminuted two-part fracture proximal right humerus with impacted surgical neck component. Greater tuberosity fracture component is displaced slightly by 5 mm. As compared to 05/10/2023, there appears to be greater degree of impaction and anteromedial displacement of 1 cm. ; Uncomplicated right hip hemiarthroplasty Orthopedic team consulted Patient remains on Zosyn, IV vancomycin, nystatin, I decided Medrol 60 mg Objective - Vital Signs Vital signs: Vital Signs Temp 97.5 F L 05/31/23 08:00 Pulse 60 05/31/23 08:18 Resp 17 05/31/23 08:00 BP 152/82 05/31/23 08:00 Pulse Ox 90 L 05/31/23 08:00 FiO2 50 05/26/23 10:30 Intake & Output 05/30/23 05/31/23 05/31/23 18:59 06:59 18:59 Intake Total 658 300 118 Output Total 300 2100 Balance 358 -1800 118 Weight 89.5 kg Intake: Oral 658 300 118 Output: Urine 300 2100 Other: Voiding Method Urinal Urinal - Exam GENERAL: The patient is alert and oriented x3, not in any acute distress. Well developed, well nourished. HEENT: Pupils are round and equally reacting to light. EOMI. No scleral icterus. No conjunctival pallor. Normocephalic, atraumatic. No pharyngeal erythema. No thyromegaly. CARDIOVASCULAR: S1 and S2 present. No murmurs, rubs, or gallops. --PULMONARY: Chest is clear to auscultation, bilateral expiratory wheezing , no crackles. Decreased breath sounds on the bases ABDOMEN: Soft, nontender, nondistended, normoactive bowel sounds. No palpable organomegaly. MUSCULOSKELETAL: No joint swelling or deformity. -EXTREMITIES: No cyanosis, clubbing, or pedal edema. Right arm in a sling NEUROLOGICAL: Gross neurological examination did not reveal any focal deficits. SKIN: No rashes. no petechiae. - Labs CBC & Chem 7: 05/28/23 07:25 05/31/23 07:03 Labs: Abnormal Lab Results - Last 24 Hours (Table) 05/30/23 05/30/23 05/30/23 Range/Units 06:58 11:29 16:39 Sodium 131 L (137-145) mmol/L POC Glucose (mg/dL) 111 H 177 H (70-110) mg/dL 05/30/23 05/31/23 Range/Units 20:10 06:02 Sodium (137-145) mmol/L POC Glucose (mg/dL) 160 H 145 H (70-110) mg/dL Microbiology - Last 24 Hours (Table) 05/28/23 04:30 Gram Stain - Final Sputum Sputum Culture - Final Queenie albicans Assessment and Plan Assessment: Bilateral basal hospital acquired pneumonia Acute COPD exacerbation Acute on chronic hypoxic respiratory failure Comminuted right humerus fracture with impacted surgical neck Hyponatremia Chronic anemia Benign prostatic hypertrophy Hypertension Recent history of hip surgery status post [facility] Plan: Continue with antibiotic, Zosyn IV vancomycin Continue with IV Solu-Medrol On oxygen Continue with bronchodilator Pulmonary team consult Orthopedic team consult Continue with symptomatic treatment Further recommendation based on the clinical course DVT prophylaxis aspirin twice a day GI prophylaxis Protonix
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
--- NOTE | 2023-05-31 16:15 | P.PN ---
Subjective Progress Note Date: 05/31/23 72-year-old male who presents to the emergency department, complaining of shortness of breath. She apparently came in from a senior living, where he was rehabbing for a broken arm and leg. The patient has very severe COPD with an FEV1 that's 34% of predicted. He does use home oxygen at between 3-4 L/m. His primary care provider is Dr. Jamie Balderas, and he sees my partner in the office, for his COPD. The patient does continue to smoke cigarettes. He typically is on Symbicort, Ventolin inhaler, and a nebulizer machine. The patient is currently on Rocephin and Zithromax, for possible pneumonia. A pro-calcitonin level has been ordered. Clinically, the patient does not look overwhelmingly ill. In addition to COPD, he has a history of hypertension, and gastroesophageal reflux disease. He also has a history of CAD, deafness, hyperlipidemia, hypertension, laryngeal carcinoma, status post radiation, and kidney stones among other things. White count 11.2, hemoglobin 9.1, hematocrit 28.6, and platelet count 338,000. Sodium 1:30, potassium 4.5, chlorides 93, CO2 27, BUN 23, and creatinine 0.73. Calcium 8. Urine is negative. He tested negative for influenza, RSV, and coronavirus. Chest x-ray shows changes of COPD, with bilateral basilar airspace disease. On today's evaluation of 05/28/2023, I'm seeing the patient for a follow-up. The patient is having some congested cough and he was able to give me a sputum sample. She does have a hospital-acquired pneumonia and the patient has no infiltrates in the lung bases bilaterally. No reported aspiration. Note that the patient was in the hospital for a hip fracture and subsequently was sent to rehabilitation. No fever or chills at this point in time. His oxygen requirements are at 4 L of oxygen by nasal cannula with a pulse ox 95%. Note that the patient also has advanced COPD with an FEV1 of 34% of predicted. The white cell count of 8.8 with a hemoglobin of 8.4. Sodium level is at 128 and a potassium level of 4.6. The ends of 26 with a creatinine of 0.6. Patient is currently on IV Rocephin. The blood culture is negative the CAT scan of the chest showed lower lobe pulmonary infiltrates and a CAT scan of the abdomen showed a moderate to large hiatal hernia, left-sided renal calculus measuring 7 mm in size without any hydronephrosis, diverticulosis and a recent right hip arthroplasty with postsurgical soft tissue swelling. There is a seroma also measuring 2.8 cm in size by 28 cm in size. On today's evaluation of 05/29/2023, the patient is being treated for bilateral pneumonia. The patient is currently on a combination of Zosyn and vancomycin. He is also on bronchodilators. He remains on IV Solu-Medrol. Cough and congestion is improved. Sputum sample that was collected earlier was positive for Queenie. No fever. No chills. No other new complaints. No shortness of breath. He shortness of breath continued to improve. Renal function stable with a creatinine of 0.8. The rest of the records is still pending for now. Blood sugar this morning is at 97. On today's evaluation of 05/30/2023, the patient is still on a combination of Zosyn and vancomycin. Repeat chest x-ray was done and the patient showed again presence of a persistent multifocal airspace disease bilaterally without any s ignificant interval change. He does have some oropharyngeal candidiasis and he was started also on nystatin. He is afebrile. Blood work shows a sodium level of 131, potassium level of 4.3, serum bicarbs at 24. The vancomycin trough is at 21. Oxygen requirements is unchanged and the patient remains on 4 L of O2 nasal cannula. Surgical one-sided over the right hip is dry clean and intact. He is wearing a sling. Is also wearing a both in his right lower extremity. On today's evaluation of 05/31/2023, no new complaints. The patient remains on oxygen and is currently on 4 L of oxygen by nasal cannula. He remains on broad- spectrum antibiotics. Renal function is stable. He remains on accommodation Zosyn and vancomycin. No altered mentation. No chest pain. The patient was also seen by orthopedic surgery. X-ray of the ankle was done and it showed an acute on chronic distal tubular fractures with adequate alignment. X-ray of the hip was in good alignment. X-ray of the shoulder showed a displaced proximal and infection that was healing. Objective - Vital Signs Vital signs: Vital Signs Temp 97.5 F L 05/31/23 08:00 Pulse 60 05/31/23 12:07 Resp 17 05/31/23 08:00 BP 152/82 05/31/23 08:00 Pulse Ox 90 L 05/31/23 08:00 FiO2 50 05/26/23 10:30 Intake & Output 05/30/23 05/31/23 05/31/23 18:59 06:59 18:59 Intake Total 658 300 354 Output Total 300 2100 Balance 358 -1800 354 Weight 89.5 kg Intake: Oral 658 300 354 Output: Urine 300 2100 Other: Voiding Method Urinal Urinal - Exam No acute distress, oriented 3. No conversational dyspnea or use of accessory muscles. Currently on 4 L. HEENT examination is grossly unremarkable. Mucous membranes are moist. No oral lesions. Neck supple. Full range of motion. No adenopathy thyromegaly or neck vein distention. Cardiovascular examination reveals regular rhythm rate. S1-S2 normal. No S3 or S4. No discernible murmur noted. Heart sounds are distant. Lungs reveal scattered bilateral rhonchi and expiratory wheezes. No crackles. Breath sounds are equal bilaterally but diminished throughout. Abdomen soft bowel sounds are heard. No masses or tenderness. Extremities are intact. No cyanosis clubbing or edema. Skin is without rash or lesion. Neurologic examination is brief but nonfocal. - Labs CBC & Chem 7: 05/28/23 07:25 05/31/23 07:03 Labs: Abnormal Lab Results - Last 24 Hours (Table) 05/30/23 05/30/23 05/31/23 Range/Units 16:39 20:10 06:02 POC Glucose (mg/dL) 177 H 160 H 145 H (70-110) mg/dL 05/31/23 Range/Units 11:29 POC Glucose (mg/dL) 116 H (70-110) mg/dL Microbiology - Last 24 Hours (Table) 05/28/23 04:30 Gram Stain - Final Sputum Sputum Culture - Final Queenie albicans Assessment and Plan Plan: Acute hypoxemic respiratory failure, secondary to COPD exacerbation, complicated by pneumonia. This is most likely hospital-acquired pneumonia involving the lung bases and the patient is currently on 4 L of oxygen by nasal cannula Hospital-acquired pneumonia, involving the lung bases bilaterally with secondary shortness of breath, No evidence of pulmonary embolism on CT angiogram. Clinically the patient is improving. Nevertheless, the chest x-ray still showing persistent bilateral pulmonary infiltrates and consolidations, unchanged compared to the earlier chest x-ray. Oropharyngeal candidiasis History of ongoing tobacco use with nicotine addiction. History of severe/stage III COPD, with an FEV1 that's 34% of predicted. History of hypertension. History of hyperlipidemia. History of BPH. History of laryngeal carcinoma, status post radiation treatments. History of kidney stones. Hearing loss. History of gastroesophageal reflux disease. History of fall with right femoral neck fracture post unipolar hemiarthroplasty Right proximal humeral neck/head fracture still wearing his sling Seroma measuring 28 x 3 cm in size, postsurgical in nature involving the right hip Large hiatal hernia Left sided renal calculus Cholelithiasis without cholecystitis Diverticulosis Plan Continue same management, we'll keep the same antibiotic coverage for now and the repeat chest x-ray in the morning Continue the combination of Zosyn and vancomycin covering for hospital-acquired pathogens Continue wearing his sling regarding the right proximal humeral neck fracture Continue bronchodilators Continue IV Solu-Medrol 60 mg every 6 hours Continue [facility] Orthopedic surgery evaluation is appreciated We'll continue to follow.
[2023-05-31 16:35] LABS: Glucose,Whole Blood 143 mg/dL (70-110)
[2023-05-31 18:00] LABS: African American GFR (CKD) >90 (>60 ml/min/1.73 sqM); Non-African American GFR(CKD) 89 (>60 ml/min/1.73 sqM)
[2023-05-31 19:30] LABS: Glucose,Whole Blood 143 mg/dL (70-110)
[2023-05-31] MEDS: ACETAMINOPHEN TAB 325 MG TAB PO PRN (20:01)
[2023-05-31] MEDS: DICLOFENAC SODIUM GEL 100 GM TUBE TOPICAL PRN (23:08)
[2023-06-01 06:11] LABS: Glucose,Whole Blood 125 mg/dL (70-110)
[2023-06-01] MEDS: methylPREDNISolone SOD SUCCI 125 MG/2 ML VIAL IV SCH ×4 (06:16→23:32)
[2023-06-01] MEDS: VANCOMYCIN 1,750 MG in SODIUM CHLORIDE 0.9% 500 ML 500 ML IVPB SCH ×2 (06:16→15:24)
[2023-06-01] MEDS: PANTOPRAZOLE 40 MG TABLET PO SCH (06:17)
[2023-06-01] MEDS: INSULIN ASPART (NovoLOG) 100 UNIT/ML VIAL SQ SCH ×4 (06:17→20:21)
[2023-06-01] MEDS: ACETAMINOPHEN TAB 325 MG TAB PO PRN ×3 (06:17→23:32)
[2023-06-01] MEDS: NYSTATIN 100,000 UNIT/ML SUSP 500,000 UNIT/5 ML CUP PO SCH ×4 (08:42→20:21)
[2023-06-01] MEDS: lisinopriL 20 MG TAB PO SCH ×2 (08:42→20:21)
[2023-06-01] MEDS: ASPIRIN 81 MG PO SCH ×2 (08:43→20:21)
[2023-06-01] MEDS: HYDROcodone/APAP 7.5-325MG 1 EACH TAB PO PRN ×3 (08:43→20:24)
[2023-06-01] MEDS: TAMSULOSIN 0.4 MG CAP.ER.24H PO SCH (08:43)
[2023-06-01] MEDS: SENNOSIDES-DOCUSATE SODIUM 1 EACH TAB PO SCH ×2 (08:43→20:21)
[2023-06-01] MEDS: METOPROLOL SUCCINATE (ER) 25 MG TAB.ER.24H PO SCH (08:43)
[2023-06-01] MEDS: PIPERACILLIN-TAZOBACTAM 3.375 GM in SODIUM CHLORIDE 0.9% 100 ML IVPB SCH ×3 (08:52→23:32)
--- NOTE | 2023-06-01 08:56 | XR ---
EXAMINATION TYPE: XR chest 1V DATE OF EXAM: 06/01/2023 5:35 AM CLINICAL INDICATION:Male, 72 years old with history of pneumonias; [facility] COMPARISON: Chest radiographs from 05/30/2023 TECHNIQUE: XR chest 1V Portable AP radiograph of the chest. FINDINGS: Lungs/Pleura: Similar prominent airspace opacities in the mid to lower lungs. No evidence of pneumoth orax or right pleural effusion. Small left pleural effusion not excluded. Stable mild coarsening of i nterstitial lung markings. Pulmonary vascularity: Unremarkable. Heart/mediastinum: Cardiomediastinal silhouette is partially obscured due to overlying and adjacent o pacities. Heart is likely at least mildly enlarged. Tortuous partially calcified aorta. Musculoskeletal: Osseous structures appear grossly unchanged. Partially visualized subacute fracture proximal right humerus. Vertebral augmentation cement in the mid to upper thoracic spine. IMPRESSION: Bibasilar airspace opacities, without significant change.
--- NOTE | 2023-06-01 09:28 | P.PN ---
Subjective Progress Note Date: 06/01/23 Principal diagnosis: History of right hip fracture, status post hemiarthroplasty. History of right proximal humerus fracture. History of possible right distal fibular fracture. COPD exacerbation with pneumonia. This is a 72-year-old male who has been readmitted with COPD exacerbation. He has recent history of right proximal humerus fracture, right mL neck fracture and right ankle fracture. He was taken to surgery on 05/12/2023 for hemiarthroplasty of the right hip. He has been treated in a sling for his proximal humerus fracture and is in a boot for his possible right ankle fracture. He has been at a rehabilitation facility and was readmitted to the hospital for respiratory problems. We have been consulted for orthopedic follow-up regarding his recent injuries and surgery. He states that his shoulder and hip pain are improving. He has continued to wear the boot and ankle without difficulty. He has no new Orthopedic complaints or concerns today. 06/01/2023: The patient is stable from an orthopedic standpoint. He has no new complaints or concerns today. His x-rays were reviewed yesterday which show a healed acute on chronic distal fibular fracture right ankle. His proximal humerus fracture is healing in a displaced position, unchanged from prior imag es. His hip components are in good position and alignment. He reports minimal pain to the hip or ankle. He has some pain in the shoulder with motion. Vital signs are stable. Objective - Vital Signs Vital signs: Vital Signs Temp 98.8 F 06/01/23 08:00 Pulse 58 L 06/01/23 08:00 Resp 19 06/01/23 08:00 BP 152/82 06/01/23 08:00 Pulse Ox 94 L 06/01/23 08:00 FiO2 50 05/26/23 10:30 Intake & Output 05/31/23 06/01/23 06/01/23 18:59 06:59 18:59 Intake Total 1130 240 240 Output Total 500 1600 850 Balance 630 -1360 -610 Intake: Oral 1130 240 240 Output: Urine 500 1600 850 Other: Voiding Method Urinal Urinal # Bowel Movements 1 - Exam This is a pleasant 72-year-old male in no acute distress. He is alert and oriented 3. Exam of the upper extremities reveals a sling in place on the right. He has full wrist and finger motion without difficulty or pain. Neurovascular status to the upper extremity is intact. Exam of the lower extremities reveals his incision is well-healed to the right hip. No erythema or ecchymosis. Minimal soft tissue swelling. There is minimal swelling to the ankle. He has full foot and ankle motion without difficulty or pain. Neurovascular status to the lower extremity is intact. - Labs CBC & Chem 7: 05/28/23 07:25 05/31/23 14:33 Labs: Abnormal Lab Results - Last 24 Hours (Table) 05/31/23 05/31/23 05/31/23 Range/Units 11:29 16:31 19:28 POC Glucose (mg/dL) 116 H 143 H 143 H (70-110) mg/dL 06/01/23 Range/Units 06:09 POC Glucose (mg/dL) 125 H (70-110) mg/dL Microbiology - Last 24 Hours (Table) 05/26/23 10:31 Blood Culture - Final Blood Assessment and Plan (1) Status post hip hemiarthroplasty Current Visit: Yes Status: Acute Code(s): Z96.649 - PRESENCE OF UNSPECIFIED ARTIFICIAL HIP JOINT SNOMED Code(s): 187790419 (2) Closed fracture of ankle with routine healing Current Visit: Yes Status: Acute Code(s): S82.899D - OTH FX UNSP LOWER LEG, SUBS FOR CLOS FX W ROUTN HEAL SNOMED Code(s): 16240656 (3) COPD exacerbation Current Visit: Yes Status: Acute Code(s): J44.1 - CHRONIC OBSTRUCTIVE PUL MONARY DISEASE W (ACUTE) EXACERBATION SNOMED Code(s): 932573766 (4) Fracture of femoral neck Current Visit: No Status: Acute Code(s): S72.009A - FRACTURE OF UNSP PART OF NECK OF UNSP FEMUR, INIT SNOMED Code(s): 0477845 (5) Fracture, humerus, neck Current Visit: No Status: Acute Code(s): S42.213A - UNSP DISP FX OF SURGICAL NECK OF UNSP HUMERUS, INIT SNOMED Code(s): 462348499 Plan: The clinical and x-ray findings are discussed with the patient. He is to continue the sling to the right upper extremity but may come the sling for gentle pendulum exercises and range of motion exercises of the elbow. He may bear weight as tolerated to the right lower extremity and may discontinue the boot to the right foot. He may work with physical therapy as tolerated. We will see him back in the office in one month for follow-up evaluation and x-ray.
[2023-06-01 09:32] LABS: African American GFR (CKD) >90 (>60 ml/min/1.73 sqM); Non-African American GFR(CKD) >90 (>60 ml/min/1.73 sqM)
[2023-06-01] MEDS: IPRATROPIUM-ALBUTEROL 3 ML NEB INHALATION SCH ×4 (10:07→21:20)
[2023-06-01] MEDS: SYMBICORT 160-4.5 MCG INHALER INHALATION SCH ×2 (10:07→21:20)
[2023-06-01 11:34] LABS: Glucose,Whole Blood 238 mg/dL (70-110)
--- NOTE | 2023-06-01 12:17 | P.PN ---
Subjective Progress Note Date: 06/01/23 72-year-old male who presents to the emergency department, complaining of shortness of breath. She apparently came in from a snf, where he was rehabbing for a broken arm and leg. The patient has very severe COPD with an FEV1 that's 34% of predicted. He does use home oxygen at between 3-4 L/m. His primary care provider is Dr. Jamie Balderas, and he sees my partner in the office, for his COPD. The patient does continue to smoke cigarettes. He typically is on Symbicort, Ventolin inhaler, and a nebulizer machine. The patient is currently on Rocephin and Zithromax, for possible pneumonia. A pro-calcitonin level has been ordered. Clinically, the patient does not look overwhelmingly ill. In addition to COPD, he has a history of hypertension, and gastroesophageal reflux disease. He also has a history of CAD, deafness, hyperlipidemia, hypertension, laryngeal carcinoma, status post radiation, and kidney stones among other things. White count 11.2, hemoglobin 9.1, hematocrit 28.6, and platelet count 338,000. Sodium 1:30, potassium 4.5, chlorides 93, CO2 27, BUN 23, and creatinine 0.73. Calcium 8. Urine is negative. He tested negative for influenza, RSV, and coronavirus. Chest x-ray shows changes of COPD, with bilateral basilar airspace disease. On today's evaluation of 05/28/2023, I'm seeing the patient for a follow-up. The patient is having some congested cough and he was able to give me a sputum sample. She does have a hospital-acquired pneumonia and the patient has no infiltrates in the lung bases bilaterally. No reported aspiration. Note that the patient was in the hospital for a hip fracture and subsequently was sent to rehabilitation. No fever or chills at this point in time. His oxygen requirements are at 4 L of oxygen by nasal cannula with a pulse ox 95%. Note that the patient also has advanced COPD with an FEV1 of 34% of predicted. The white cell count of 8.8 with a hemoglobin of 8.4. Sodium level is at 128 and a potassium level of 4.6. The ends of 26 with a creatinine of 0.6. Patient is currently on IV Rocephin. The blood culture is negative the CAT scan of the chest showed lower lobe pulmonary infiltrates and a CAT scan of the abdomen showed a moderate to large hiatal hernia, left-sided renal calculus measuring 7 mm in size without any hydronephrosis, diverticulosis and a recent right hip arthroplasty with postsurgical soft tissue swelling. There is a seroma also measuring 2.8 cm in size by 28 cm in size. On today's evaluation of 05/29/2023, the patient is being treated for bilateral pneumonia. The patient is currently on a combination of Zosyn and vancomycin. He is also on bronchodilators. He remains on IV Solu-Medrol. Cough and congestion is improved. Sputum sample that was collected earlier was positive for Queenie. No fever. No chills. No other new complaints. No shortness of breath. He shortness of breath continued to improve. Renal function stable with a creatinine of 0.8. The rest of the records is still pending for now. Blood sugar this morning is at 97. On today's evaluation of 05/30/2023, the patient is still on a combination of Zosyn and vancomycin. Repeat chest x-ray was done and the patient showed again presence of a persistent multifocal airspace disease bilaterally without any s ignificant interval change. He does have some oropharyngeal candidiasis and he was started also on nystatin. He is afebrile. Blood work shows a sodium level of 131, potassium level of 4.3, serum bicarbs at 24. The vancomycin trough is at 21. Oxygen requirements is unchanged and the patient remains on 4 L of O2 nasal cannula. Surgical one-sided over the right hip is dry clean and intact. He is wearing a sling. Is also wearing a both in his right lower extremity. On today's evaluation of 05/31/2023, no new complaints. The patient remains on oxygen and is currently on 4 L of oxygen by nasal cannula. He remains on broad- spectrum antibiotics. Renal function is stable. He remains on accommodation Zosyn and vancomycin. No altered mentation. No chest pain. The patient was also seen by orthopedic surgery. X-ray of the ankle was done and it showed an acute on chronic distal tubular fractures with adequate alignment. X-ray of the hip was in good alignment. X-ray of the shoulder showed a displaced proximal and infection that was healing. On 06/01/2023, no new complaints and the patient remains on 4 L of oxygen by nasal cannula. Continues to see broad-spectrum antibiotics regarding his hospital-acquired pneumonia and he remains on accommodation Zosyn and vancomycin. Chest x-ray showing stable with consolidation lung bases more so on the right. I think there may be some interval improvement. The immobilizing boot has been removed. No respiratory difficulties for now. Using the incentive spirometer. Creatinine stable at 0.9. Blood sugars at 238. Objective - Vital Signs Vital signs: Vital Signs Temp 98.8 F 06/01/23 08:00 Pulse 64 06/01/23 10:19 Resp 19 06/01/23 08:00 BP 152/82 06/01/23 08:00 Pulse Ox 94 L 06/01/23 10:08 FiO2 50 05/26/23 10:30 Intake & Output 05/31/23 06/01/23 06/01/23 18:59 06:59 18:59 Intake Total 1130 240 240 Output Total 500 1600 850 Balance 630 -1360 -610 Intake: Oral 1130 240 240 Output: Urine 500 1600 850 Other: Voiding Method Urinal Urinal Urinal # Bowel Movements 1 - Exam No acute distress, oriented 3. No conversational dyspnea or use of accessory muscles. Currently on 4 L. HEENT examination is grossly unremarkable. Mucous membranes are moist. No oral lesions. Neck supple. Full range of motion. No adenopathy thyromegaly or neck vein dist ention. Cardiovascular examination reveals regular rhythm rate. S1-S2 normal. No S3 or S4. No discernible murmur noted. Heart sounds are distant. Lungs reveal scattered bilateral rhonchi and expiratory wheezes. No crackles. Breath sounds are equal bilaterally but diminished throughout. Abdomen soft bowel sounds are heard. No masses or tenderness. Extremities are intact. No cyanosis clubbing or edema. Skin is without rash or lesion. Neurologic examination is brief but nonfocal. - Labs CBC & Chem 7: 05/28/23 07:25 06/01/23 08:52 Labs: Abnormal Lab Results - Last 24 Hours (Table) 05/31/23 05/31/23 05/31/23 Range/Units 11:29 16:31 19:28 Creatinine (0.66-1.25) mg/dL POC Glucose (mg/dL) 116 H 143 H 143 H (70-110) mg/dL 06/01/23 06/01/23 Range/Units 06:09 08:52 Creatinine 0.59 L (0.66-1.25) mg/dL POC Glucose (mg/dL) 125 H (70-110) mg/dL Microbiology - Last 24 Hours (Table) 05/26/23 10:31 Blood Culture - Final Blood Assessment and Plan Plan: Acute hypoxemic respiratory failure, secondary to COPD exacerbation, complicated by pneumonia. This is most likely hospital-acquired pneumonia involving the lung bases and the patient is currently on 4 L of oxygen by nasal cannula Hospital-acquired pneumonia, involving the lung bases bilaterally with secondary shortness of breath, No evidence of pulmonary embolism on CT angiogram. Clinically the patient is improving. Nevertheless, the chest x-ray still showing persistent bilateral pulmonary infiltrates and consolidations, unchanged compared to the earlier chest x-ray. Oropharyngeal candidiasis History of ongoing tobacco use with nicotine addiction. History of severe/stage III COPD, with an FEV1 that's 34% of predicted. History of hypertension. History of hyperlipidemia. History of BPH. History of laryngeal carcinoma, status post radiation treatments. History of kidney stones. Hearing loss. History of gastroesophageal reflux disease. History of fall with right femoral neck fracture post unipolar hemiarthroplasty Right proximal humeral neck/head fracture still wearing his sling Seroma measuring 28 x 3 cm in size, postsurgical in nature involving the right hip Large hiatal hernia Left sided renal calculus Cholelithiasis without cholecystitis Diverticulosis Plan Follow-up chest x-ray findings are stable, slightly improved based on my opinion. Clinically stable Keep oxygen at 4 L per minute nasal cannula Continue same management, we'll keep the same antibiotic coverage for now and the repeat chest x-ray in the morning Continue the combination of Zosyn and vancomycin covering for hospital-acquired pathogens Continue wearing his sling regarding the right proximal humeral neck fracture Continue bronchodilators Continue IV Solu-Medrol 60 mg every 6 hours Continue [facility] Orthopedic surgery evaluation is appreciated We'll continue to follow.
[2023-06-01 16:17] LABS: Glucose,Whole Blood 169 mg/dL (70-110)
[2023-06-01 20:02] LABS: Glucose,Whole Blood 231 mg/dL (70-110)
--- NOTE | 2023-06-01 20:04 | P.PN ---
Subjective 72-year-old male, history of coronary artery disease, COPD, hypertension, hyperlipidemia, chronic hypoxic/hypercapnic respiratory failure, patient uses O2 at 2 L per nasal cannula, presents emergency Department for difficulty breathing. Patient comes from a senior living where he is being rehabbed because of an injury to his arm and his leg. Patient is unaware of exactly how the injury occurred. Patient has been having a difficulty breathing since earlier today. Patient has a history of COPD. According to staff she was oxygenating in the 70s. Patient also 102 temp according to staff. Patient was not given Motrin or Tylenol. EMS arrived and the patient was on a nonrebreather and they gave him a breathing treatment on the way in and he was feeling better and didn't look as much distress. Patient had no complaints of any pain. Echo completed in ED reveals WBC of 13.6, hemoglobin of 9.1. Count of 306, sodium 129, potassium 4.4, BUN/creatinine of 20/0.65 d-dimer elevated at 1.89, troponin less than 0.012 -- Patient reports pain in right arm which is in a sling and is requesting Biofreeze - Has been evaluated by pulmonary and is recommended to continue IV Rocephin, azithromycin and IV Solu-Medrol; patient will continue with nebulizer treatments and Symbicort 05/28/2023 Patient states that his dyspnea is improving Postoperative his have coughing and cough medicine as provided for him He is on 3 L oxygen per minute which is his home dose. His WBC is normal at 8.8, hemoglobin 8.4, sodium 128. CTA of the chest is negative for PE Chest x-rays showing worsening infiltrates especially on the right side Antibiotics for change in to Zosyn and IV vancomycin for hospital-acquired pneumonia. Ulcers on IV Solu-Medrol 60 mg 05/29/2023 His breathing status is improving today after antibiotics was checked yesterday and to Zosyn and IV vancomycin for hospital acquired pneumonia rather than community-acquired pneumonia. Distal coughing. He is on home dose of 3 to oxygenating nasal cannula 05/30/2023 Patient breathing is a stable. He is at home dose of oxygen at 3-4 L/m. His repeat chest x-ray shows stable bibasilar findings. Remains on Zosyn and IV vancomycin. Creatinine stable 0.8, sodium level is pending for today. Patient will be discharged back to rehab when cleared medically 05/31/2023 Patient breathing quietly at bedside, I still have some degree of wheezing and limited air entry in both sides Patient complaining of from pain in his right shoulder. Right ankle x-ray: Increasing soft tissue swelling around the ankle Right shoulder and hip x-ray: Comminuted two-part fracture proximal right humerus with impacted surgical neck component. Greater tuberosity fracture component is displaced slightly by 5 mm. As compared to 05/10/2023, there appears to be greater degree of impaction and anteromedial displacement of 1 cm. ; Uncomplicated right hip hemiarthroplasty Orthopedic team consulted Patient remains on Zosyn, IV vancomycin, nystatin, I decided Medrol 60 mg 06/01/2023 Patient then looks quiet at rest but he still have significant course secretion and bilateral wheezing on auscultation Oxygen requirement stable Her remains on IV Zosyn and vancomycin and IV Solu-Medrol with a close monitoring Chest x-ray looks the same when I reviewed it Orthopedic team recommended to continue with a sling to the right upper extremity on follow-up in the office in 1 month Objective - Vital Signs Vital signs: Vital Signs Temp 98.4 F 06/01/23 12:00 Pulse 58 L 06/01/23 14:00 Resp 19 06/01/23 14:00 BP 132/63 06/01/23 12:00 Pulse Ox 92 L 06/01/23 12:00 FiO2 50 05/26/23 10:30 Intake & Output 05/31/23 06/01/23 06/01/23 18:59 06:59 18:59 Intake Total 1130 240 480 Output Total 500 1600 850 Balance 630 -1360 -370 Intake: Oral 1130 240 480 Output: Urine 500 1600 850 Other: Voiding Method Urinal Urinal Urinal # Bowel Movements 1 - Exam GENERAL: The patient is alert and oriented x3, not in any acute distress. Well developed, well nourished. HEENT: Pupils are round and equally reacting to light. EOMI. No scleral icterus. No conjunctival pallor. Normocephalic, atraumatic. No pharyngeal erythema. No thyromegaly. CARDIOVASCULAR: S1 and S2 present. No murmurs, rubs, or gallops. --PULMONARY: Chest is clear to auscultation, bilateral expiratory wheezing , no crackles. Decreased breath sounds on the bases ABDOMEN: Soft, nontender, nondistended, normoactive bowel sounds. No palpable organomegaly. MUSCULOSKELETAL: No joint swelling or deformity. -EXTREMITIES: No cyanosis, clubbing, or pedal edema. Right arm in a sling NEUROLOGICAL: Gross neurological examination did not reveal any focal deficits. SKIN: No rashes. no petechiae. - Labs CBC & Chem 7: 05/28/23 07:25 06/01/23 08:52 Labs: Abnormal Lab Results - Last 24 Hours (Table) 05/31/23 05/31/23 06/01/23 Range/Units 16:31 19:28 06:09 Creatinine (0.66-1.25) mg/dL POC Glucose (mg/dL) 143 H 143 H 125 H (70-110) mg/dL 06/01/23 06/01/23 Range/Units 08:52 11:32 Creatinine 0.59 L (0.66-1.25) mg/dL POC Glucose (mg/dL) 238 H (70-110) mg/dL Microbiology - Last 24 Hours (Table) 05/26/23 10:31 Blood Culture - Final Blood Assessment and Plan Assessment: Bilateral basal hospital acquired pneumonia Acute COPD exacerbation Acute on chronic hypoxic respiratory failure Comminuted right humerus fracture with impacted surgical neck Hyponatremia Chronic anemia Benign prostatic hypertrophy Hypertension Recent history of hip surgery status post [facility] Plan: Continue with antibiotic, Zosyn IV vancomycin Continue with IV Solu-Medrol On oxygen Continue with bronchodilator Pulmonary team consult Orthopedic team consult Continue with symptomatic treatment Further recommendation based on the clinical course DVT prophylaxis aspirin twice a day GI prophylaxis Protonix
[2023-06-02] MEDS: HYDROcodone/APAP 7.5-325MG 1 EACH TAB PO PRN ×4 (04:19→23:32)
[2023-06-02] MEDS: PANTOPRAZOLE 40 MG TABLET PO SCH (04:20)
[2023-06-02] MEDS: VANCOMYCIN 1,750 MG in SODIUM CHLORIDE 0.9% 500 ML 500 ML IVPB SCH ×2 (04:20→17:20)
[2023-06-02] MEDS: methylPREDNISolone SOD SUCCI 125 MG/2 ML VIAL IV SCH (04:20)
[2023-06-02 05:45] LABS: Glucose,Whole Blood 192 mg/dL (70-110)
[2023-06-02] MEDS: INSULIN ASPART (NovoLOG) 100 UNIT/ML VIAL SQ SCH ×4 (05:48→20:43)
[2023-06-02] MEDS: SYMBICORT 160-4.5 MCG INHALER INHALATION SCH ×2 (07:25→21:07)
[2023-06-02] MEDS: IPRATROPIUM-ALBUTEROL 3 ML NEB INHALATION SCH ×4 (07:25→21:07)
[2023-06-02] MEDS ORDERED: FUROSEMIDE 10 MG/ML 4 ML VIAL IV STA (09:24)
[2023-06-02] MEDS: NYSTATIN 100,000 UNIT/ML SUSP 500,000 UNIT/5 ML CUP PO SCH ×4 (09:25→21:07)
[2023-06-02] MEDS: TAMSULOSIN 0.4 MG CAP.ER.24H PO SCH (09:25)
[2023-06-02] MEDS: lisinopriL 20 MG TAB PO SCH ×2 (09:25→20:43)
[2023-06-02] MEDS: ASPIRIN 81 MG PO SCH ×2 (09:25→20:43)
[2023-06-02] MEDS: PIPERACILLIN-TAZOBACTAM 3.375 GM in SODIUM CHLORIDE 0.9% 100 ML IVPB SCH ×3 (09:26→23:32)
[2023-06-02] MEDS: METOPROLOL SUCCINATE (ER) 25 MG TAB.ER.24H PO SCH (09:26)
[2023-06-02] MEDS: SENNOSIDES-DOCUSATE SODIUM 1 EACH TAB PO SCH ×2 (09:26→20:44)
--- NOTE | 2023-06-02 09:55 | P.PN ---
Subjective 72-year-old male, history of coronary artery disease, COPD, hypertension, hyperlipidemia, chronic hypoxic/hypercapnic respiratory failure, patient uses O2 at 2 L per nasal cannula, presents emergency Department for difficulty breathing. Patient comes from a alf where he is being rehabbed because of an injury to his arm and his leg. Patient is unaware of exactly how the injury occurred. Patient has been having a difficulty breathing since earlier today. Patient has a history of COPD. According to staff she was oxygenating in the 70s. Patient also 102 temp according to staff. Patient was not given Motrin or Tylenol. EMS arrived and the patient was on a nonrebreather and they gave him a breathing treatment on the way in and he was feeling better and didn't look as much distress. Patient had no complaints of any pain. Echo completed in ED reveals WBC of 13.6, hemoglobin of 9.1. Count of 306, sodium 129, potassium 4.4, BUN/creatinine of 20/0.65 d-dimer elevated at 1.89, troponin less than 0.012 -- Patient reports pain in right arm which is in a sling and is requesting Biofreeze - Has been evaluated by pulmonary and is recommended to continue IV Rocephin, azithromycin and IV Solu-Medrol; patient will continue with nebulizer treatments and Symbicort 05/28/2023 Patient states that his dyspnea is improving Postoperative his have coughing and cough medicine as provided for him He is on 3 L oxygen per minute which is his home dose. His WBC is normal at 8.8, hemoglobin 8.4, sodium 128. CTA of the chest is negative for PE Chest x-rays showing worsening infiltrates especially on the right side Antibiotics for change in to Zosyn and IV vancomycin for hospital-acquired pneumonia. Ulcers on IV Solu-Medrol 60 mg 05/29/2023 His breathing status is improving today after antibiotics was checked yesterday and to Zosyn and IV vancomycin for hospital acquired pneumonia rather than community-acquired pneumonia. Distal coughing. He is on home dose of 3 to oxygenating nasal cannula 05/30/2023 Patient breathing is a stable. He is at home dose of oxygen at 3-4 L/m. His repeat chest x-ray shows stable bibasilar findings. Remains on Zosyn and IV vancomycin. Creatinine stable 0.8, sodium level is pending for today. Patient will be discharged back to rehab when cleared medically 05/31/2023 Patient breathing quietly at bedside, I still have some degree of wheezing and limited air entry in both sides Patient complaining of from pain in his right shoulder. Right ankle x-ray: Increasing soft tissue swelling around the ankle Right shoulder and hip x-ray: Comminuted two-part fracture proximal right humerus with impacted surgical neck component. Greater tuberosity fracture component is displaced slightly by 5 mm. As compared to 05/10/2023, there appears to be greater degree of impaction and anteromedial displacement of 1 cm. ; Uncomplicated right hip hemiarthroplasty Orthopedic team consulted Patient remains on Zosyn, IV vancomycin, nystatin, I decided Medrol 60 mg 06/01/2023 Patient then looks quiet at rest but he still have significant course secretion and bilateral wheezing on auscultation Oxygen requirement stable Her remains on IV Zosyn and vancomycin and IV Solu-Medrol with a close monitoring Chest x-ray looks the same when I reviewed it Orthopedic team recommended to continue with a sling to the right upper extremity on follow-up in the office in 1 month 06/02/2023 Patient breathing is improving slowly and gradually, on examination he has limited air entry. He remains on IV antibiotics with Zosyn and IV vancomycin, steroidsto oral prednisone today. He has evidence of swelling legs and penis, no signs of cellulitis. His received 1 dose of IV Lasix as wished to 40 mg by mouth twice a day. Repeat chest x-ray from yesterday showing no change, chest x-ray from today is pending. Patient right arm in a sling and she supposed to go to rehab upon discharge Objective - Vital Signs Vital signs: Vital Signs Temp 97.9 F 06/02/23 08:00 Pulse 67 06/02/23 08:00 Resp 18 06/02/23 08:00 BP 137/70 06/02/23 08:00 Pulse Ox 93 L 06/02/23 08:00 FiO2 50 05/26/23 10:30 Intake & Output 06/01/23 06/02/23 06/02/23 18:59 06:59 18:59 Intake Total 480 240 118 Output Total 1350 1300 Balance -870 -1060 118 Intake: Oral 480 240 118 Output: Urine 1350 1300 Other: Voiding Method Urinal Urinal - Exam GENERAL: The patient is alert and oriented x3, not in any acute distress. Well developed, well nourished. HEENT: Pupils are round and equally reacting to light. EOMI. No scleral icterus. No conjunctival pallor. Normocephalic, atraumatic. No pharyngeal erythema. No thyromegaly. CARDIOVASCULAR: S1 and S2 present. No murmurs, rubs, or gallops. --PULMONARY: Chest is clear to auscultation, bilateral expiratory wheezing , no crackles. Decreased breath sounds on the bases ABDOMEN: Soft, nontender, nondistended, normoactive bowel sounds. No palpable organomegaly. MUSCULOSKELETAL: No joint swelling or deformity. -EXTREMITIES: No cyanosis, clubbing, or pedal edema. Right arm in a sling NEUROLOGICAL: Gross neurological examination did not reveal any focal deficits. SKIN: No rashes. no petechiae. - Labs CBC & Chem 7: 05/28/23 07:25 06/01/23 08:52 Labs: Abnormal Lab Results - Last 24 Hours (Table) 06/01/23 06/01/23 06/01/23 Range/Units 11:32 16:15 20:01 POC Glucose (mg/dL) 238 H 169 H 231 H (70-110) mg/dL 06/02/23 Range/Units 05:43 POC Glucose (mg/dL) 192 H (70-110) mg/dL Assessment and Plan Assessment: Bilateral basal hospital acquired pneumonia Acute COPD exacerbation Acute on chronic hypoxic respiratory failure Comminuted right humerus fracture with impacted surgical neck Hyponatremia Chronic anemia Benign prostatic hypertrophy Hypertension Recent history of hip surgery status post [facility] Plan: Continue with antibiotic, Zosyn IV vancomycin Continue with IV Solu-Medrol On oxygen Continue with bronchodilator Pulmonary team consult Orthopedic team consult Continue with symptomatic treatment Further recommendation based on the clinical course DVT prophylaxis aspirin twice a day GI prophylaxis Protonix
[2023-06-02 11:37] LABS: Glucose,Whole Blood 132 mg/dL (70-110)
--- NOTE | 2023-06-02 12:28 | P.PN ---
Subjective Progress Note Date: 06/02/23 72-year-old male who presents to the emergency department, complaining of shortness of breath. She apparently came in from a group home, where he was rehabbing for a broken arm and leg. The patient has very severe COPD with an FEV1 that's 34% of predicted. He does use home oxygen at between 3-4 L/m. His primary care provider is Dr. Jamie Balderas, and he sees my partner in the office, for his COPD. The patient does continue to smoke cigarettes. He typically is on Symbicort, Ventolin inhaler, and a nebulizer machine. The patient is currently on Rocephin and Zithromax, for possible pneumonia. A pro-calcitonin level has been ordered. Clinically, the patient does not look overwhelmingly ill. In addition to COPD, he has a history of hypertension, and gastroesophageal reflux disease. He also has a history of CAD, deafness, hyperlipidemia, hypertension, laryngeal carcinoma, status post radiation, and kidney stones among other things. White count 11.2, hemoglobin 9.1, hematocrit 28.6, and platelet count 338,000. Sodium 1:30, potassium 4.5, chlorides 93, CO2 27, BUN 23, and creatinine 0.73. Calcium 8. Urine is negative. He tested negative for influenza, RSV, and coronavirus. Chest x-ray shows changes of COPD, with bilateral basilar airspace disease. On today's evaluation of 05/28/2023, I'm seeing the patient for a follow-up. The patient is having some congested cough and he was able to give me a sputum sample. She does have a hospital-acquired pneumonia and the patient has no infiltrates in the lung bases bilaterally. No reported aspiration. Note that the patient was in the hospital for a hip fracture and subsequently was sent to rehabilitation. No fever or chills at this point in time. His oxygen requirements are at 4 L of oxygen by nasal cannula with a pulse ox 95%. Note that the patient also has advanced COPD with an FEV1 of 34% of predicted. The white cell count of 8.8 with a hemoglobin of 8.4. Sodium level is at 128 and a potassium level of 4.6. The ends of 26 with a creatinine of 0.6. Patient is currently on IV Rocephin. The blood culture is negative the CAT scan of the chest showed lower lobe pulmonary infiltrates and a CAT scan of the abdomen showed a moderate to large hiatal hernia, left-sided renal calculus measuring 7 mm in size without any hydronephrosis, diverticulosis and a recent right hip arthroplasty with postsurgical soft tissue swelling. There is a seroma also measuring 2.8 cm in size by 28 cm in size. On today's evaluation of 05/29/2023, the patient is being treated for bilateral pneumonia. The patient is currently on a combination of Zosyn and vancomycin. He is also on bronchodilators. He remains on IV Solu-Medrol. Cough and congestion is improved. Sputum sample that was collected earlier was positive for Queenie. No fever. No chills. No other new complaints. No shortness of breath. He shortness of breath continued to improve. Renal function stable with a creatinine of 0.8. The rest of the records is still pending for now. Blood sugar this morning is at 97. On today's evaluation of 05/30/2023, the patient is still on a combination of Zosyn and vancomycin. Repeat chest x-ray was done and the patient showed again presence of a persistent multifocal airspace disease bilaterally without any s ignificant interval change. He does have some oropharyngeal candidiasis and he was started also on nystatin. He is afebrile. Blood work shows a sodium level of 131, potassium level of 4.3, serum bicarbs at 24. The vancomycin trough is at 21. Oxygen requirements is unchanged and the patient remains on 4 L of O2 nasal cannula. Surgical one-sided over the right hip is dry clean and intact. He is wearing a sling. Is also wearing a both in his right lower extremity. On today's evaluation of 05/31/2023, no new complaints. The patient remains on oxygen and is currently on 4 L of oxygen by nasal cannula. He remains on broad- spectrum antibiotics. Renal function is stable. He remains on accommodation Zosyn and vancomycin. No altered mentation. No chest pain. The patient was also seen by orthopedic surgery. X-ray of the ankle was done and it showed an acute on chronic distal tubular fractures with adequate alignment. X-ray of the hip was in good alignment. X-ray of the shoulder showed a displaced proximal and infection that was healing. On 06/01/2023, no new complaints and the patient remains on 4 L of oxygen by nasal cannula. Continues to see broad-spectrum antibiotics regarding his hospital-acquired pneumonia and he remains on accommodation Zosyn and vancomycin. Chest x-ray showing stable with consolidation lung bases more so on the right. I think there may be some interval improvement. The immobilizing boot has been removed. No respiratory difficulties for now. Using the incentive spirometer. Creatinine stable at 0.9. Blood sugars at 238. On today's evaluation of 06/02/2022, the patient has no specific complaints. He has developed some scrotal edema. Repeat chest x-ray shows stable but the pulmonary lower lobe consolidation. The patient is still on IV antibiotics and is receiving a combination of Zosyn and vancomycin. The patient was taken off the IV Solu-Medrol and the patient is currently on prednisone. He is bringing up congested mucous and the earlier sputum sample was positive for Queenie. No other new complaints otherwise for now. No new labs are available from today. Objective - Vital Signs Vital signs: Vital Signs Temp 97.9 F 06/02/23 08:00 Pulse 63 06/02/23 10:45 Resp 18 06/02/23 08:00 BP 137/70 06/02/23 08:00 Pulse Ox 93 L 06/02/23 08:00 FiO2 50 05/26/23 10:30 Intake & Output 06/01/23 06/02/23 06/02/23 18:59 06:59 18:59 Intake Total 480 240 118 Output Total 1350 1300 Balance -870 -1060 118 Intake: Oral 480 240 118 Output: Urine 1350 1300 Other: Voiding Method Urinal Urinal - Exam No acute distress, oriented 3. No conversational dyspnea or use of accessory muscles. Currently on 4 L. HEENT examination is grossly unremarkable. Mucous membranes are moist. No oral lesions. Neck supple. Full range of motion. No adenopathy thyromegaly or neck vein distention. Cardiovascular examination reveals regular rhythm rate. S1-S2 normal. No S3 or S4. No discernible murmur noted. Heart sounds are distant. Lungs reveal scattered bilateral rhonchi and expiratory wheezes. No crackles. Breath sounds are equal bilaterally but diminished throughout. Abdomen soft bowel sounds are heard. No masses or tenderness. Extremities are intact. No cyanosis clubbing or edema. Skin is without rash or lesion. Neurologic examination is brief but nonfocal. - Labs CBC & Chem 7: 12/26/23 07:25 06/01/23 08:52 Labs: Abnormal Lab Results - Last 24 Hours (Table) 06/01/23 06/01/23 06/02/23 Range/Units 16:15 20:01 05:43 POC Glucose (mg/dL) 169 H 231 H 192 H (70-110) mg/dL 06/02/23 Range/Units 11:36 POC Glucose (mg/dL) 132 H (70-110) mg/dL Assessment and Plan Plan: Acute hypoxemic respiratory failure, secondary to COPD exacerbation, complicated by pneumonia. This is most likely hospital-acquired pneumonia involving the lung bases and the patient is currently on 4 L of oxygen by nasal cannula, oxygenation is unchanged and the patient remains on 4 L Hospital-acquired pneumonia, involving the lung bases bilaterally with secondary shortness of breath, No evidence of pulmonary embolism on CT angiogram. Clinically the patient is improving. The chest x-ray again shows stable bilateral lower lobe pulmonary infiltrates in the sputum is positive for Queenie. Remains on Zosyn and vancomycin. Oropharyngeal candidiasis History of ongoing tobacco use with nicotine addiction. History of severe/stage III COPD, with an FEV1 that's 34% of predicted. History of hypertension. History of hyperlipidemia. History of BPH. History of laryngeal carcinoma, status post radiation treatments. History of kidney stones. Hearing loss. History of gastroesophageal reflux disease. History of fall with right femoral neck fracture post unipolar hemiarthroplasty Right proximal humeral neck/head fracture still wearing his sling Seroma measuring 28 x 3 cm in size, postsurgical in nature involving the right hip Large hiatal hernia Left sided renal calculus Cholelithiasis without cholecystitis Diverticulosis Plan Chest x-ray findings are stable Clinically stable Keep oxygen at 4 L per minute nasal cannula Continue same management, we'll keep the same antibiotic coverage for now Continue the combination of Zosyn and vancomycin covering for hospital-acquired pathogens Continue wearing his sling regarding the right proximal humeral neck fracture Continue bronchodilators Continue prednisone burst taper Start the patient on Lasix 40 mg by mouth twice a day [facility] evaluation is appreciated We'll continue to follow.
[2023-06-02] MEDS: predniSONE 20 MG TAB PO SCH (12:32)
[2023-06-02] MEDS: ACETAMINOPHEN TAB 325 MG TAB PO PRN ×2 (13:01→20:44)
--- NOTE | 2023-06-02 14:56 | XR ---
EXAMINATION TYPE: XR chest 1V DATE OF EXAM: 06/02/2023 9:55 AM CLINICAL INDICATION:Male, 72 years old with history of pneumonia; [facility] COMPARISON: None TECHNIQUE: XR chest 1V Portable AP radiograph of the chest.. FINDINGS: Lines/Tubes/Devices: EKG leads overlie the chest. No indwelling lines are seen. Lungs/Pleura: Similar prominent airspace opacities in the mid to lower lungs. No evidence of pneumoth orax or right pleural effusion. Small left pleural effusion likely present, appears decreased. Stable mild coarsening of interstitial lung markings. Pulmonary vascularity: Unremarkable. Heart/mediastinum: Cardiomediastinal silhouette is partially obscured due to overlying and adjacent o pacities. Heart is likely at least mildly enlarged. Tortuous partially calcified aorta. Musculoskeletal: Osseous structures appear grossly unchanged. Partially visualized subacute fracture proximal right humerus. Vertebral augmentation cement in the mid to upper thoracic spine. IMPRESSION: Relatively stable bibasilar pulmonary opacities. Suspect decreased small left effusion.
[2023-06-02 16:39] LABS: Glucose,Whole Blood 190 mg/dL (70-110)
[2023-06-02] MEDS: FUROSEMIDE 40 MG TAB PO SCH (17:21)
[2023-06-02 20:09] LABS: Glucose,Whole Blood 235 mg/dL (70-110)
[2023-06-02] MEDS: DICLOFENAC SODIUM GEL 100 GM TUBE TOPICAL PRN (23:32)
[2023-06-03] MEDS: ACETAMINOPHEN TAB 325 MG TAB PO PRN ×3 (04:03→15:58)
[2023-06-03] MEDS: VANCOMYCIN 1,750 MG in SODIUM CHLORIDE 0.9% 500 ML 500 ML IVPB SCH ×2 (04:11→15:59)
[2023-06-03 06:02] LABS: Glucose,Whole Blood 119 mg/dL (70-110)
[2023-06-03] MEDS: INSULIN ASPART (NovoLOG) 100 UNIT/ML VIAL SQ SCH ×4 (06:02→20:34)
[2023-06-03] MEDS: HYDROcodone/APAP 7.5-325MG 1 EACH TAB PO PRN ×3 (06:10→18:47)
[2023-06-03] MEDS: PANTOPRAZOLE 40 MG TABLET PO SCH (06:11)
[2023-06-03 08:28] LABS: Basophils % (A) 0 %; Eosinophils % (A) 0 %; HCT 31.6 % (39.0-53.0); HGB 10.1 gm/dL (13.0-17.5); Lymphocytes # (A) 0.7 k/uL (1.0-4.8); Lymphocytes % (A) 10 %; MCH 29.1 pg (25.0-35.0); MCHC 32.1 g/dL (31.0-37.0); MCV 90.7 fL (80.0-100.0); Mean Platelet Volume 7.6; Monocytes # (A) 0.4 k/uL (0-1.0); Monocytes % (A) 7 %; Neutrophils # (A) 5.2 k/uL (1.3-7.7); Neutrophils % (A) 81 %; Platelet Count 367 k/uL (150-450); RBC 3.48 m/uL (4.30-5.90); RDW 14.9 % (11.5-15.5); WBC 6.4 k/uL (3.8-10.6)
[2023-06-03 08:32] LABS: African American GFR (CKD) >90 (>60 ml/min/1.73 sqM); Anion Gap 6 mmol/L; Blood Urea Nitrogen 34 mg/dL (9-20); Calcium 7.6 mg/dL (8.4-10.2); Carbon Dioxide 32 mmol/L (22-30); Chloride 93 mmol/L (98-107); Glucose 100 mg/dL (74-99); Non-African American GFR(CKD) >90 (>60 ml/min/1.73 sqM); Potassium 4.2 mmol/L (3.5-5.1); Sodium 131 mmol/L (137-145)
[2023-06-03] MEDS: SYMBICORT 160-4.5 MCG INHALER INHALATION SCH ×2 (08:35→21:28)
[2023-06-03] MEDS: IPRATROPIUM-ALBUTEROL 3 ML NEB INHALATION SCH ×4 (08:35→21:28)
[2023-06-03] MEDS: NYSTATIN 100,000 UNIT/ML SUSP 500,000 UNIT/5 ML CUP PO SCH ×4 (09:14→20:43)
[2023-06-03] MEDS: FUROSEMIDE 40 MG TAB PO SCH (09:15)
[2023-06-03] MEDS: PIPERACILLIN-TAZOBACTAM 3.375 GM in SODIUM CHLORIDE 0.9% 100 ML IVPB SCH ×3 (09:15→23:16)
[2023-06-03] MEDS: TAMSULOSIN 0.4 MG CAP.ER.24H PO SCH (09:15)
[2023-06-03] MEDS: predniSONE 20 MG TAB PO SCH (09:15)
[2023-06-03] MEDS: SENNOSIDES-DOCUSATE SODIUM 1 EACH TAB PO SCH ×2 (09:15→20:43)
[2023-06-03] MEDS: ASPIRIN 81 MG PO SCH ×2 (09:15→20:43)
[2023-06-03 11:35] LABS: Glucose,Whole Blood 105 mg/dL (70-110)
[2023-06-03] MEDS: METOPROLOL SUCCINATE (ER) 25 MG TAB.ER.24H PO SCH (11:47)
[2023-06-03] MEDS: lisinopriL 20 MG TAB PO SCH ×2 (11:47→20:43)
[2023-06-03] MEDS: FUROSEMIDE 10 MG/ML 4 ML VIAL IV SCH ×2 (12:41→20:43)
--- NOTE | 2023-06-03 13:29 | P.PN ---
Subjective Progress Note Date: 06/03/23 72-year-old male who presents to the emergency department, complaining of shortness of breath. She apparently came in from a [facility], where he was rehabbing for a broken arm and leg. The patient has very severe COPD with an FEV1 that's 34% of predicted. He does use home oxygen at between 3-4 L/m. His primary care provider is Dr. Jamei Balderas, and he sees my partner in the office, for his COPD. The patient does continue to smoke cigarettes. He typically is on Symbicort, Ventolin inhaler, and a nebulizer machine. The patient is currently on Rocephin and Zithromax, for possible pneumonia. A pro-calcitonin level has been ordered. Clinically, the patient does not look overwhelmingly ill. In addition to COPD, he has a history of hypertension, and gastroesophageal reflux disease. He also has a history of CAD, deafness, hyperlipidemia, hypertension, laryngeal carcinoma, status post radiation, and kidney stones among other things. White count 11.2, hemoglobin 9.1, hematocrit 28.6, and platelet count 338,000. Sodium 1:30, potassium 4.5, chlorides 93, CO2 27, BUN 23, and creatinine 0.73. Calcium 8. Urine is negative. He tested negative for influenza, RSV, and coronavirus. Chest x-ray shows changes of COPD, with bilateral basilar airspace disease. On today's evaluation of 05/28/2023, I'm seeing the patient for a follow-up. The patient is having some congested cough and he was able to give me a sputum sample. She does have a hospital-acquired pneumonia and the patient has no infiltrates in the lung bases bilaterally. No reported aspiration. Note that the patient was in the hospital for a hip fracture and subsequently was sent to rehabilitation. No fever or chills at this point in time. His oxygen requirements are at 4 L of oxygen by nasal cannula with a pulse ox 95%. Note that the patient also has advanced COPD with an FEV1 of 34% of predicted. The white cell count of 8.8 with a hemoglobin of 8.4. Sodium level is at 128 and a potassium level of 4.6. The ends of 26 with a creatinine of 0.6. Patient is currently on IV Rocephin. The blood culture is negative the CAT scan of the chest showed lower lobe pulmonary infiltrates and a CAT scan of the abdomen showed a moderate to large hiatal hernia, left-sided renal calculus measuring 7 mm in size without any hydronephrosis, diverticulosis and a recent right hip arthroplasty with postsurgical soft tissue swelling. There is a seroma also measuring 2.8 cm in size by 28 cm in size. On today's evaluation of 05/29/2023, the patient is being treated for bilateral pneumonia. The patient is currently on a combination of Zosyn and vancomycin. He is also on bronchodilators. He remains on IV Solu-Medrol. Cough and congestion is improved. Sputum sample that was collected earlier was positive for Queenie. No fever. No chills. No other new complaints. No shortness of breath. He shortness of breath continued to improve. Renal function stable with a creatinine of 0.8. The rest of the records is still pending for now. Blood sugar this morning is at 97. On today's evaluation of 05/30/2023, the patient is still on a combination of Zosyn and vancomycin. Repeat chest x-ray was done and the patient showed again presence of a persistent multifocal airspace disease bilaterally without any s ignificant interval change. He does have some oropharyngeal candidiasis and he was started also on nystatin. He is afebrile. Blood work shows a sodium level of 131, potassium level of 4.3, serum bicarbs at 24. The vancomycin trough is at 21. Oxygen requirements is unchanged and the patient remains on 4 L of O2 nasal cannula. Surgical one-sided over the right hip is dry clean and intact. He is wearing a sling. Is also wearing a both in his right lower extremity. On today's evaluation of 05/31/2023, no new complaints. The patient remains on oxygen and is currently on 4 L of oxygen by nasal cannula. He remains on broad- spectrum antibiotics. Renal function is stable. He remains on accommodation Zosyn and vancomycin. No altered mentation. No chest pain. The patient was also seen by orthopedic surgery. X-ray of the ankle was done and it showed an acute on chronic distal tubular fractures with adequate alignment. X-ray of the hip was in good alignment. X-ray of the shoulder showed a displaced proximal and infection that was healing. On 06/01/2023, no new complaints and the patient remains on 4 L of oxygen by nasal cannula. Continues to see broad-spectrum antibiotics regarding his hospital-acquired pneumonia and he remains on accommodation Zosyn and vancomycin. Chest x-ray showing stable with consolidation lung bases more so on the right. I think there may be some interval improvement. The immobilizing boot has been removed. No respiratory difficulties for now. Using the incentive spirometer. Creatinine stable at 0.9. Blood sugars at 238. On today's evaluation of 06/02/2022, the patient has no specific complaints. He has developed some scrotal edema. Repeat chest x-ray shows stable but the pulmonary lower lobe consolidation. The patient is still on IV antibiotics and is receiving a combination of Zosyn and vancomycin. The patient was taken off the IV Solu-Medrol and the patient is currently on prednisone. He is bringing up congested mucous and the earlier sputum sample was positive for Queenie. No other new complaints otherwise for now. No new labs are available from today. On 06/03/2023, patient is doing well. They've about the pulmonary infiltrates related to pneumonia. Clinically improved. Remains on Zosyn and vancomycin and completing a 7 day course. He is noted to have increased swelling both lower extremities, abdominal wall and scrotum. He was started on oral Lasix. This was switched IV Lasix. He is producing adequate amount of urine output. He remains on bronchodilators. He remains on steroids and the patient has been switched to prednisone burst taper. He remains on 4 L of oxygen nasal cannula. Using incentive spirometer. Labs from today shows a white cell count of 6, hemoglobin of 10, platelets of 367, BUN is 34 with a creatinine of 0.6 and a sodium level is at 131. No new complaints otherwise for now. Objective - Vital Signs Vital signs: Vital Signs Temp 98 F 06/02/23 20:00 Pulse 64 06/03/23 08:53 Resp 18 06/03/23 08:00 BP 98/55 06/03/23 08:00 Pulse Ox 94 L 06/03/23 08:39 FiO2 50 05/26/23 10:30 Intake & Output 06/02/23 06/03/23 06/03/23 18:59 06:59 18:59 Intake Total 538 960 120 Output Total 2825 2300 400 Balance -2287 -1340 -280 Intake: Oral 538 960 120 Output: Urine 2825 2300 400 Other: Voiding Method Urinal Urinal Urinal - Exam No acute distress, oriented 3. No conversational dyspnea or use of accessory muscles. Currently on 4 L. HEENT examination is grossly unremarkable. Mucous membranes are moist. No oral lesions. Neck supple. Full range of motion. No adenopathy thyromegaly or neck vein distention. Cardiovascular examination reveals regular rhythm rate. S1-S2 normal. No S3 or S4. No discernible murmur noted. Heart sounds are distant. Lungs reveal scattered bilateral rhonchi and expiratory wheezes. No crackles. Breath sounds are equal bilaterally but diminished throughout. Abdomen soft bowel sounds are heard. No masses or tenderness. Extremities are intact. No cyanosis clubbing or edema. Skin is without rash or lesion. Neurologic examination is brief but nonfocal. - Labs CBC & Chem 7: 06/03/23 07:46 06/03/23 07:46 Labs: Abnormal Lab Results - Last 24 Hours (Table) 06/02/23 06/02/23 06/03/23 Range/Units 16:37 20:07 05:58 RBC (4.30-5.90) m/uL Hgb (13.0-17.5) gm/dL Hct (39.0-53.0) % Lymphocytes # (1.0-4.8) k/uL Sodium (137-145) mmol/L Chloride (98-107) mmol/L Carbon Dioxide (22-30) mmol/L BUN (9-20) mg/dL Creatinine (0.66-1.25) mg/dL Glucose (74-99) mg/dL POC Glucose (mg/dL) 190 H 235 H 119 H (70-110) mg/dL Calcium (8.4-10.2) mg/dL 06/03/23 06/03/23 Range/Units 07:46 07:46 RBC 3.48 L (4.30-5.90) m/uL Hgb 10.1 L (13.0-17.5) gm/dL Hct 31.6 L (39.0-53.0) % Lymphocytes # 0.7 L (1.0-4.8) k/uL Sodium 131 L (137-145) mmol/L Chloride 93 L (98-107) mmol/L Carbon Dioxide 32 H (22-30) mmol/L BUN 34 H (9-20) mg/dL Creatinine 0.64 L (0.66-1.25) mg/dL Glucose 100 H (74-99) mg/dL POC Glucose (mg/dL) (70-110) mg/dL Calcium 7.6 L (8.4-10.2) mg/dL Assessment and Plan Plan: Acute hypoxemic respiratory failure, secondary to COPD exacerbation, complicated by pneumonia. This is most likely hospital-acquired pneumonia involving the lung bases and the patient is currently on 4 L of oxygen by nasal cannula, oxygenation is unchanged and the patient remains on 4 L Hospital-acquired pneumonia, involving the lung bases bilaterally with secondary shortness of breath, No evidence of pulmonary embolism on CT angiogram. Clinically the patient is improving. The chest x-ray again shows stable bilateral lower lobe pulmonary infiltrates in the sputum is positive for Queenie. Remains on Zosyn and vancomycin. Oropharyngeal candidiasis History of ongoing tobacco use with nicotine addiction. History of severe/stage III COPD, with an FEV1 that's 34% of predicted. History of hypertension. History of hyperlipidemia. History of BPH. History of laryngeal carcinoma, status post radiation treatments. History of kidney stones. Hearing loss. History of gastroesophageal reflux disease. History of fall with right femoral neck fracture post unipolar hemiarthroplasty Right proximal humeral neck/head fracture still wearing his sling Seroma measuring 28 x 3 cm in size, postsurgical in nature involving the right hip Large hiatal hernia Left sided renal calculus Cholelithiasis without cholecystitis Diverticulosis Plan Chest x-ray findings are stable Clinically stable Keep oxygen at 4 L per minute nasal cannula Continue same management, we'll keep the same antibiotic coverage for now , completed a seven-day course Continue the combination of Zosyn and vancomycin covering for hospital-acquired pathogens Continue wearing his sling regarding the right proximal humeral neck fracture Continue bronchodilators Continue prednisone burst taper Switch this patient to Lasix 40 mg IV push every 12 hours for increased edema and fluid retention Continue [facility] Orthopedic surgery evaluation is appreciated We'll continue to follow.
[2023-06-03 16:33] LABS: Glucose,Whole Blood 157 mg/dL (70-110)
[2023-06-03 20:10] LABS: Glucose,Whole Blood 143 mg/dL (70-110)
[2023-06-04] MEDS: HYDROcodone/APAP 7.5-325MG 1 EACH TAB PO PRN ×2 (00:22→21:08)
[2023-06-04] MEDS: DICLOFENAC SODIUM GEL 100 GM TUBE TOPICAL PRN (00:24)
[2023-06-04] MEDS ORDERED: VANCOMYCIN TROUGH DUE 1 EACH MISC MISCELLANE ONE (03:00)
[2023-06-04 03:30] LABS: African American GFR (CKD) >90 (>60 ml/min/1.73 sqM); Non-African American GFR(CKD) >90 (>60 ml/min/1.73 sqM)
[2023-06-04] MEDS: VANCOMYCIN 1,750 MG in SODIUM CHLORIDE 0.9% 500 ML 500 ML IVPB SCH (03:35)
[2023-06-04 06:01] LABS: Glucose,Whole Blood 95 mg/dL (70-110)
[2023-06-04] MEDS: INSULIN ASPART (NovoLOG) 100 UNIT/ML VIAL SQ SCH ×4 (06:04→20:58)
[2023-06-04] MEDS: PANTOPRAZOLE 40 MG TABLET PO SCH (06:14)
[2023-06-04] MEDS: ACETAMINOPHEN TAB 325 MG TAB PO PRN ×2 (06:18→12:09)
[2023-06-04] MEDS: SYMBICORT 160-4.5 MCG INHALER INHALATION SCH ×2 (09:19→21:17)
[2023-06-04] MEDS: IPRATROPIUM-ALBUTEROL 3 ML NEB INHALATION SCH ×4 (09:19→21:17)
[2023-06-04] MEDS: TAMSULOSIN 0.4 MG CAP.ER.24H PO SCH (09:21)
[2023-06-04] MEDS: METOPROLOL SUCCINATE (ER) 25 MG TAB.ER.24H PO SCH (09:21)
[2023-06-04] MEDS: FUROSEMIDE 10 MG/ML 4 ML VIAL IV SCH ×2 (09:21→20:58)
[2023-06-04] MEDS: ASPIRIN 81 MG PO SCH ×2 (09:22→20:58)
[2023-06-04] MEDS: lisinopriL 20 MG TAB PO SCH ×2 (09:22→20:58)
[2023-06-04] MEDS: NYSTATIN 100,000 UNIT/ML SUSP 500,000 UNIT/5 ML CUP PO SCH ×4 (09:22→20:58)
[2023-06-04] MEDS: predniSONE 20 MG TAB PO SCH (09:22)
[2023-06-04] MEDS: SENNOSIDES-DOCUSATE SODIUM 1 EACH TAB PO SCH ×2 (09:22→20:58)
[2023-06-04] MEDS: PIPERACILLIN-TAZOBACTAM 3.375 GM in SODIUM CHLORIDE 0.9% 100 ML IVPB SCH (09:23)
[2023-06-04 11:38] LABS: Glucose,Whole Blood 109 mg/dL (70-110)
--- NOTE | 2023-06-04 14:47 | P.PN ---
Subjective Progress Note Date: 06/04/23 Principal diagnosis: Acute hypoxic respiratory failure secondary to COPD exacerbation and hospital- acquired pneumonia 72-year-old male who presents to the emergency department, complaining of shortness of breath. She apparently came in from a [facility], where he was rehabbing for a broken arm and leg. The patient has very severe COPD with an FEV1 that's 34% of predicted. He does use home oxygen at between 3-4 L/m. His primary care provider is Dr. Jamie Balderas, and he sees my partner in the office, for his COPD. The patient does continue to smoke cigarettes. He typically is on Symbicort, Ventolin inhaler, and a nebulizer machine. The patient is currently on Rocephin and Zithromax, for possible pneumonia. A pro-calcitonin level has been ordered. Clinically, the patient does not look overwhelmingly ill. In addition to COPD, he has a history of hypertension, and gastroesophageal reflux disease. He also has a history of CAD, deafness, hyperlipidemia, hypertension, laryngeal carcinoma, status post radiation, and kidney stones among other things. White count 11.2, hemoglobin 9.1, hematocrit 28.6, and platelet count 338,000. Sodium 1:30, potassium 4.5, chlorides 93, CO2 27, BUN 23, and creatinine 0.73. Calcium 8. Urine is negative. He tested negative for influenza, RSV, and coronavirus. Chest x-ray shows changes of COPD, with bilateral basilar airspace disease. On today's evaluation of 05/28/2023, I'm seeing the patient for a follow-up. The patient is having some congested cough and he was able to give me a sputum sample. She does have a hospital-acquired pneumonia and the patient has no infiltrates in the lung bases bilaterally. No reported aspiration. Note that the patient was in the hospital for a hip fracture and subsequently was sent to rehabilitation. No fever or chills at this point in time. His oxygen requirements are at 4 L of oxygen by nasal cannula with a pulse ox 95%. Note that the patient also has advanced COPD with an FEV1 of 34% of predicted. The white cell count of 8.8 with a hemoglobin of 8.4. Sodium level is at 128 and a potassium level of 4.6. The ends of 26 with a creatinine of 0.6. Patient is currently on IV Rocephin. The blood culture is negative the CAT scan of the chest showed lower lobe pulmonary infiltrates and a CAT scan of the abdomen showed a moderate to large hiatal hernia, left-sided renal calculus measuring 7 mm in size without any hydronephrosis, diverticulosis and a recent right hip arthroplasty with postsurgical soft tissue swelling. There is a seroma also measuring 2.8 cm in size by 28 cm in size. On today's evaluation of 05/29/2023, the patient is being treated for bilateral pneumonia. The patient is currently on a combination of Zosyn and vancomycin. He is also on bronchodilators. He remains on IV Solu-Medrol. Cough and congestion is improved. Sputum sample that was collected earlier was positive for Queenie. No fever. No chills. No other new complaints. No shortness of breath. He shortness of breath continued to improve. Renal function stable with a creatinine of 0.8. The rest of the records is still pending for now. Blood sugar this morning is at 97. On today's evaluation of 05/30/2023, the patient is still on a combination of Zosyn and vancomycin. Repeat chest x-ray was done and the patient showed again presence of a persistent multifocal airspace disease bilaterally without any significant interval change. He does have some oropharyngeal candidiasis and he was started also on nystatin. He is afebrile. Blood work shows a sodium level of 131, potassium level of 4.3, serum bicarbs at 24. The vancomycin trough is at 21. Oxygen requirements is unchanged and the patient remains on 4 L of O2 nasal cannula. Surgical one-sided over the right hip is dry clean and intact. He is wearing a sling. Is also wearing a both in his right lower extremity. On today's evaluation of 05/31/2023, no new complaints. The patient remains on oxygen and is currently on 4 L of oxygen by nasal cannula. He remains on broad- spectrum antibiotics. Renal function is stable. He remains on accommodation Zosyn and vancomycin. No altered mentation. No chest pain. The patient was also seen by orthopedic surgery. X-ray of the ankle was done and it showed an acute on chronic distal tubular fractures with adequate alignment. X-ray of the hip was in good alignment. X-ray of the shoulder showed a displaced proximal and infection that was healing. On 06/01/2023, no new complaints and the patient remains on 4 L of oxygen by nasal cannula. Continues to see broad-spectrum antibiotics regarding his hospital-acquired pneumonia and he remains on accommodation Zosyn and vancomycin. Chest x-ray showing stable with consolidation lung bases more so on the right. I think there may be some interval improvement. The immobilizing boot has been removed. No respiratory difficulties for now. Using the incentive spirometer. Creatinine stable at 0.9. Blood sugars at 238. On today's evaluation of 06/02/2022, the patient has no specific complaints. He has developed some scrotal edema. Repeat chest x-ray shows stable but the pulmonary lower lobe consolidation. The patient is still on IV antibiotics and is receiving a combination of Zosyn and vancomycin. The patient was taken off the IV Solu-Medrol and the patient is currently on prednisone. He is bringing up congested mucous and the earlier sputum sample was positive for Queenie. No other new complaints otherwise for now. No new labs are available from today. On 06/03/2023, patient is doing well. They've about the pulmonary infiltrates related to pneumonia. Clinically improved. Remains on Zosyn and vancomycin and completing a 7 day course. He is noted to have increased swelling both lower extremities, abdominal wall and scrotum. He was started on oral Lasix. This was switched IV Lasix. He is producing adequate amount of urine output. He remains on bronchodilators. He remains on steroids and the patient has been switched to prednisone burst taper. He remains on 4 L of oxygen nasal cannula. Using incentive spirometer. Labs from today shows a white cell count of 6, hemoglobin of 10, platelets of 367, BUN is 34 with a creatinine of 0.6 and a sodium level is at 131. No new complaints otherwise for now. Reevaluated today on 06/04/2023, she is feeling better, eating a lot easier, patient has received full course of Zosyn and vancomycin for the last 8 days, his cultures have been nondiagnostic on this admission, however looking back at his previous sputum cultures growing Serratia marcescens on his last admission, hence I will transition the patient from his present antibiotics to Bactrim and eventually plan on discharging the patient home in the next few days. WBC count is 6.4 hemoglobin is 10.1 basic metabolic profile is normal and renal profile is normal patient is on 4 L nasal cannula with O2 saturation 98% Objective - Vital Signs Vital signs: Vital Signs Temp 98.0 F 06/04/23 09:18 Pulse 99 06/04/23 12:00 Resp 18 06/04/23 12:00 BP 91/52 06/04/23 12:00 Pulse Ox 98 06/04/23 12:00 FiO2 50 05/26/23 10:30 Intake & Output 06/03/23 06/04/23 06/04/23 18:59 06:59 18:59 Intake Total 240 490 480 Output Total 3175 2100 1300 Balance -2935 -1610 -820 Intake: IV 10 Invasive Line 4 10 Oral 240 480 480 Output: Urine 3175 2100 1300 Other: Voiding Method Urinal Urinal Urinal # Voids 1 1 # Bowel Movements 1 - Exam Physical Exam: Revealed 72-year-old white male in no distress on 4 L nasal cannula Head: Atraumatic, normocephalic. HEENT:[Neck is supple.] [No neck masses.] [No thyromegaly.] [No JVD.] Chest: [Crackles at the bases bilaterally right more so than left Cardiac Exam: [Normal S1 and S2, no S3 gallop, no murmur.] Abdomen: [Soft, nontender, no megaly, no rebound, no guarding, normal bowel sounds.] Extremities: [No clubbing, no edema, no cyanosis.] Neurological Exam: [No focal neurologic deficit.] Alert oriented 3. Psychiatric: Normal mood, affect and normal mental status examination. Skin: No rashes. - Labs CBC & Chem 7: 06/03/23 07:46 06/04/23 02:54 Labs: Abnormal Lab Results - Last 24 Hours (Table) 06/03/23 06/03/23 Range/Units 16:32 19:50 POC Glucose (mg/dL) 157 H 143 H (70-110) mg/dL Assessment and Plan Assessment: Impression: Acute hypoxemic respiratory failure, secondary to COPD exacerbation, Hospital-acquired pneumonia, previous sputum cultures have grown Serratia marcescens Oropharyngeal candidiasis History of ongoing tobacco use with nicotine addiction. History of severe/stage III COPD, with an FEV1 that's 34% of predicted. History of hypertension. History of laryngeal carcinoma, status post radiation treatments. History of gastroesophageal reflux disease. Right proximal humeral neck/head fracture still wearing his sling Seroma measuring 28 x 3 cm in size, postsurgical in nature involving the right hip Large hiatal hernia Left sided renal calculus Cholelithiasis without cholecystitis Recommendation: Discontinue IV antibiotics Placed patient on Bactrim double strength by mouth twice a day Continue bronchodilators Continue prednisone burst and taper Continue diuretics We will continue to follow. Time with Patient: Less than 30
[2023-06-04 16:29] LABS: Glucose,Whole Blood 128 mg/dL (70-110)
[2023-06-04 20:06] LABS: Glucose,Whole Blood 160 mg/dL (70-110)
[2023-06-04] MEDS: SULFAMETHOX-TMP 800-160MG 1 EACH TAB PO SCH (20:58)
--- NOTE | 2023-06-05 00:24 | P.PN ---
Subjective 72-year-old male, history of coronary artery disease, COPD, hypertension, hyperlipidemia, chronic hypoxic/hypercapnic respiratory failure, patient uses O2 at 2 L per nasal cannula, presents emergency Department for difficulty breathing. Patient comes from a [facility] where he is being rehabbed because of an injury to his arm and his leg. Patient is unaware of exactly how the injury occurred. Patient has been having a difficulty breathing since earlier today. Patient has a history of COPD. According to staff she was oxygenating in the 70s. Patient also 102 temp according to staff. Patient was not given Motrin or Tylenol. EMS arrived and the patient was on a nonrebreather and they gave him a breathing treatment on the way in and he was feeling better and didn't look as much distress. Patient had no complaints of any pain. Echo completed in ED reveals WBC of 13.6, hemoglobin of 9.1. Count of 306, sodium 129, potassium 4.4, BUN/creatinine of 20/0.65 d-dimer elevated at 1.89, troponin less than 0.012 -- Patient reports pain in right arm which is in a sling and is requesting Biofreeze - Has been evaluated by pulmonary and is recommended to continue IV Rocephin, azithromycin and IV Solu-Medrol; patient will continue with nebulizer treatments and Symbicort 05/28/2023 Patient states that his dyspnea is improving Postoperative his have coughing and cough medicine as provided for him He is on 3 L oxygen per minute which is his home dose. His WBC is normal at 8.8, hemoglobin 8.4, sodium 128. CTA of the chest is negative for PE Chest x-rays showing worsening infiltrates especially on the right side Antibiotics for change in to Zosyn and IV vancomycin for hospital-acquired pneumonia. Ulcers on IV Solu-Medrol 60 mg 05/29/2023 His breathing status is improving today after antibiotics was checked yesterday and to Zosyn and IV vancomycin for hospital acquired pneumonia rather than community-acquired pneumonia. Distal coughing. He is on home dose of 3 to oxygenating nasal cannula 05/30/2023 Patient breathing is a stable. He is at home dose of oxygen at 3-4 L/m. His repeat chest x-ray shows stable bibasilar findings. Remains on Zosyn and IV vancomycin. Creatinine stable 0.8, sodium level is pending for today. Patient will be discharged back to rehab when cleared medically 05/31/2023 Patient breathing quietly at bedside, I still have some degree of wheezing and limited air entry in both sides Patient complaining of from pain in his right shoulder. Right ankle x-ray: Increasing soft tissue swelling around the ankle Right shoulder and hip x-ray: Comminuted two-part fracture proximal right humerus with impacted surgical neck component. Greater tuberosity fracture component is displaced slightly by 5 mm. As compared to 05/10/2023, there appears to be greater degree of impaction and anteromedial displacement of 1 cm. ; Uncomplicated right hip hemiarthroplasty Orthopedic team consulted Patient remains on Zosyn, IV vancomycin, nystatin, I decided Medrol 60 mg 06/01/2023 Patient then looks quiet at rest but he still have significant course secretion and bilateral wheezing on auscultation Oxygen requirement stable Her remains on IV Zosyn and vancomycin and IV Solu-Medrol with a close monitoring Chest x-ray looks the same when I reviewed it Orthopedic team recommended to continue with a sling to the right upper extremity on follow-up in the office in 1 month 06/02/2023 Patient breathing is improving slowly and gradually, on examination he has limited air entry. He remains on IV antibiotics with Zosyn and IV vancomycin, steroidsto oral prednisone today. He has evidence of swelling legs and penis, no signs of cellulitis. His received 1 dose of IV Lasix as wished to 40 mg by mouth twice a day. Repeat chest x-ray from yesterday showing no change, chest x-ray from today is pending. Patient right arm in a sling and she supposed to go to rehab upon discharge 06/03/2023 Patient is still with limited air entry and some wheezing bilaterally also with evidence of leg edema Patient continued on his steroids but switched to oral prednisone He remains on IV vancomycin and Zosyn IV Lasix is admitted today to help him with diuresis. Patient is sitting in bed most of the time but is walking to the bathroom with little exertional dyspnea. Objective - Vital Signs Vital signs: Vital Signs Temp 98 F 06/02/23 20:00 Pulse 64 06/03/23 08:53 Resp 18 06/03/23 08:00 BP 98/55 06/03/23 08:00 Pulse Ox 94 L 06/03/23 08:39 FiO2 50 05/26/23 10:30 Intake & Output 06/02/23 06/03/23 06/03/23 18:59 06:59 18:59 Intake Total 538 960 120 Output Total 2825 2300 400 Balance -2287 -1340 -280 Intake: Oral 538 960 120 Output: Urine 2825 2300 400 Other: Voiding Method Urinal Urinal Urinal - Exam GENERAL: The patient is alert and oriented x3, not in any acute distress. Well developed, well nourished. HEENT: Pupils are round and equally reacting to light. EOMI. No scleral icterus. No conjunctival pallor. Normocephalic, atraumatic. No pharyngeal erythema. No thyromegaly. CARDIOVASCULAR: S1 and S2 present. No murmurs, rubs, or gallops. --PULMONARY: Chest is clear to auscultation, bilateral expiratory wheezing , no crackles. Decreased breath sounds on the bases ABDOMEN: Soft, nontender, nondistended, normoactive bowel sounds. No palpable organomegaly. MUSCULOSKELETAL: No joint swelling or deformity. -EXTREMITIES: No cyanosis, clubbing, or pedal edema. Right arm in a sling NEUROLOGICAL: Gross neurological examination did not reveal any focal deficits. SKIN: No rashes. no petechiae. - Labs CBC & Chem 7: 06/03/23 07:46 06/04/23 02:54 Labs: Abnormal Lab Results - Last 24 Hours (Table) 06/02/23 06/02/23 06/02/23 Range/Units 11:36 16:37 20:07 RBC (4.30-5.90) m/uL Hgb (13.0-17.5) gm/dL Hct (39.0-53.0) % Lymphocytes # (1.0-4.8) k/uL Sodium (137-145) mmol/L Chloride (98-107) mmol/L Carbon Dioxide (22-30) mmol/L BUN (9-20) mg/dL Creatinine (0.66-1.25) mg/dL Glucose (74-99) mg/dL POC Glucose (mg/dL) 132 H 190 H 235 H (70-110) mg/dL Calcium (8.4-10.2) mg/dL 01/01/24 01/01/24 01/01/24 Range/Units 05:58 07:46 07:46 RBC 3.48 L (4.30-5.90) m/uL Hgb 10.1 L (13.0-17.5) gm/dL Hct 31.6 L (39.0-53.0) % Lymphocytes # 0.7 L (1.0-4.8) k/uL Sodium 131 L (137-145) mmol/L Chloride 93 L (98-107) mmol/L Carbon Dioxide 32 H (22-30) mmol/L BUN 34 H (9-20) mg/dL Creatinine 0.64 L (0.66-1.25) mg/dL Glucose 100 H (74-99) mg/dL POC Glucose (mg/dL) 119 H (70-110) mg/dL Calcium 7.6 L (8.4-10.2) mg/dL Assessment and Plan Assessment: Bilateral basal hospital acquired pneumonia Acute COPD exacerbation Acute on chronic hypoxic respiratory failure Comminuted right humerus fracture with impacted surgical neck Hyponatremia Chronic anemia Benign prostatic hypertrophy Hypertension Recent history of hip surgery status post [facility] Plan: Continue with antibiotic, currently on Bactrim Continue with prednisone 40 mg Continue with the Lasix 40 mg twice daily On oxygen Continue with bronchodilator Pulmonary team consult Orthopedic team consult Continue with symptomatic treatment Further recommendation based on the clinical course DVT prophylaxis aspirin twice a day GI prophylaxis Protonix
--- NOTE | 2023-06-05 00:26 | P.PN ---
Subjective 72-year-old male, history of coronary artery disease, COPD, hypertension, hyperlipidemia, chronic hypoxic/hypercapnic respiratory failure, patient uses O2 at 2 L per nasal cannula, presents emergency Department for difficulty breathing. Patient comes from a [facility] where he is being rehabbed because of an injury to his arm and his leg. Patient is unaware of exactly how the injury occurred. Patient has been having a difficulty breathing since earlier today. Patient has a history of COPD. According to staff she was oxygenating in the 70s. Patient also 102 temp according to staff. Patient was not given Motrin or Tylenol. EMS arrived and the patient was on a nonrebreather and they gave him a breathing treatment on the way in and he was feeling better and didn't look as much distress. Patient had no complaints of any pain. Echo completed in ED reveals WBC of 13.6, hemoglobin of 9.1. Count of 306, sodium 129, potassium 4.4, BUN/creatinine of 20/0.65 d-dimer elevated at 1.89, troponin less than 0.012 -- Patient reports pain in right arm which is in a sling and is requesting Biofreeze - Has been evaluated by pulmonary and is recommended to continue IV Rocephin, azithromycin and IV Solu-Medrol; patient will continue with nebulizer treatments and Symbicort 05/28/2023 Patient states that his dyspnea is improving Postoperative his have coughing and cough medicine as provided for him He is on 3 L oxygen per minute which is his home dose. His WBC is normal at 8.8, hemoglobin 8.4, sodium 128. CTA of the chest is negative for PE Chest x-rays showing worsening infiltrates especially on the right side Antibiotics for change in to Zosyn and IV vancomycin for hospital-acquired pneumonia. Ulcers on IV Solu-Medrol 60 mg 05/29/2023 His breathing status is improving today after antibiotics was checked yesterday and to Zosyn and IV vancomycin for hospital acquired pneumonia rather than community-acquired pneumonia. Distal coughing. He is on home dose of 3 to oxygenating nasal cannula 05/30/2023 Patient breathing is a stable. He is at home dose of oxygen at 3-4 L/m. His repeat chest x-ray shows stable bibasilar findings. Remains on Zosyn and IV vancomycin. Creatinine stable 0.8, sodium level is pending for today. Patient will be discharged back to rehab when cleared medically 05/31/2023 Patient breathing quietly at bedside, I still have some degree of wheezing and limited air entry in both sides Patient complaining of from pain in his right shoulder. Right ankle x-ray: Increasing soft tissue swelling around the ankle Right shoulder and hip x-ray: Comminuted two-part fracture proximal right humerus with impacted surgical neck component. Greater tuberosity fracture component is displaced slightly by 5 mm. As compared to 05/10/2023, there appears to be greater degree of impaction and anteromedial displacement of 1 cm. ; Uncomplicated right hip hemiarthroplasty Orthopedic team consulted Patient remains on Zosyn, IV vancomycin, nystatin, I decided Medrol 60 mg 06/01/2023 Patient then looks quiet at rest but he still have significant course secretion and bilateral wheezing on auscultation Oxygen requirement stable Her remains on IV Zosyn and vancomycin and IV Solu-Medrol with a close monitoring Chest x-ray looks the same when I reviewed it Orthopedic team recommended to continue with a sling to the right upper extremity on follow-up in the office in 1 month 06/02/2023 Patient breathing is improving slowly and gradually, on examination he has limited air entry. He remains on IV antibiotics with Zosyn and IV vancomycin, steroidsto oral prednisone today. He has evidence of swelling legs and penis, no signs of cellulitis. His received 1 dose of IV Lasix as wished to 40 mg by mouth twice a day. Repeat chest x-ray from yesterday showing no change, chest x-ray from today is pending. Patient right arm in a sling and she supposed to go to rehab upon discharge 06/03/2023 Patient is still with limited air entry and some wheezing bilaterally also with evidence of leg edema Patient continued on his steroids but switched to oral prednisone He remains on IV vancomycin and Zosyn IV Lasix is admitted today to help him with diuresis. Patient is sitting in bed most of the time but is walking to the bathroom with little exertional dyspnea. 06/04/2023 Patient clinically looks similar to yesterday with slightly better air entry, less wheezing still has evidence of leg edema His antibiotics switched to Bactrim while continue with oral prednisone Patient continue with IV Lasix. Other than he looks pleasant and relaxed with no pain and he is currently on 4 L/m which is close to his home dose of 2-4 L at home. Objective - Vital Signs Vital signs: Vital Signs Temp 98.0 F 06/04/23 15:33 Pulse 63 06/04/23 15:33 Resp 18 06/04/23 15:33 BP 118/67 06/04/23 15:33 Pulse Ox 99 06/04/23 15:33 FiO2 50 05/26/23 10:30 Intake & Output 06/03/23 06/04/23 06/04/23 18:59 06:59 18:59 Intake Total 240 490 480 Output Total 3175 2100 1775 Balance -3074 -4327 -4180 Intake: IV 10 Invasive Line 4 10 Oral 240 480 480 Output: Urine 3175 2100 1775 Other: Voiding Method Urinal Urinal Urinal # Voids 1 1 # Bowel Movements 1 - Exam GENERAL: The patient is alert and oriented x3, not in any acute distress. Well developed, well nourished. HEENT: Pupils are round and equally reacting to light. EOMI. No scleral icterus. No conjunctival pallor. Normocephalic, atraumatic. No pharyngeal erythema. No thyromegaly. CARDIOVASCULAR: S1 and S2 present. No murmurs, rubs, or gallops. --PULMONARY: Chest is clear to auscultation, bilateral expiratory wheezing , no crackles. Decreased breath sounds on the bases ABDOMEN: Soft, nontender, nondistended, normoactive bowel sounds. No palpable organomegaly. MUSCULOSKELETAL: No joint swelling or deformity. -EXTREMITIES: No cyanosis, clubbing, or pedal edema. Right arm in a sling NEUROLOGICAL: Gross neurological examination did not reveal any focal deficits. SKIN: No rashes. no petechiae. - Labs CBC & Chem 7: 06/03/23 07:46 06/04/23 02:54 Labs: Abnormal Lab Results - Last 24 Hours (Table) 06/03/23 06/03/23 Range/Units 16:32 19:50 POC Glucose (mg/dL) 157 H 143 H (70-110) mg/dL Assessment and Plan Assessment: Bilateral basal hospital acquired pneumonia Acute COPD exacerbation Acute on chronic hypoxic respiratory failure Comminuted right humerus fracture with impacted surgical neck Hyponatremia Chronic anemia Benign prostatic hypertrophy Hypertension Recent history of hip surgery status post [facility] Plan: Continue with antibiotic, currently on Bactrim Continue with prednisone 40 mg Continue with the Lasix 40 mg twice daily On oxygen Continue with bronchodilator Pulmonary team consult Orthopedic team consult Continue with symptomatic treatment Further recommendation based on the clinical course DVT prophylaxis aspirin twice a day GI prophylaxis Protonix
[2023-06-05] MEDS ORDERED: VANCOMYCIN 1,500 MG in SODIUM CHLORIDE 0.9% 500 ML 500 ML IVPB SCH (04:00)
[2023-06-05 06:04] LABS: Glucose,Whole Blood 88 mg/dL (70-110)
[2023-06-05] MEDS: INSULIN ASPART (NovoLOG) 100 UNIT/ML VIAL SQ SCH ×4 (06:18→21:49)
[2023-06-05] MEDS: PANTOPRAZOLE 40 MG TABLET PO SCH (06:27)
[2023-06-05 06:49] LABS: African American GFR (CKD) >90 (>60 ml/min/1.73 sqM); Non-African American GFR(CKD) >90 (>60 ml/min/1.73 sqM)
[2023-06-05] MEDS: SYMBICORT 160-4.5 MCG INHALER INHALATION SCH ×2 (08:05→21:19)
[2023-06-05] MEDS: IPRATROPIUM-ALBUTEROL 3 ML NEB INHALATION SCH ×4 (08:05→21:19)
[2023-06-05] MEDS: FUROSEMIDE 10 MG/ML 4 ML VIAL IV SCH ×2 (09:09→21:41)
[2023-06-05] MEDS: TAMSULOSIN 0.4 MG CAP.ER.24H PO SCH (09:09)
[2023-06-05] MEDS: NYSTATIN 100,000 UNIT/ML SUSP 500,000 UNIT/5 ML CUP PO SCH ×4 (09:09→21:41)
[2023-06-05] MEDS: ASPIRIN 81 MG PO SCH ×2 (09:09→21:41)
[2023-06-05] MEDS: SENNOSIDES-DOCUSATE SODIUM 1 EACH TAB PO SCH ×2 (09:09→21:41)
[2023-06-05] MEDS: SULFAMETHOX-TMP 800-160MG 1 EACH TAB PO SCH ×2 (09:09→21:41)
[2023-06-05] MEDS: METOPROLOL SUCCINATE (ER) 25 MG TAB.ER.24H PO SCH (09:09)
[2023-06-05] MEDS: predniSONE 20 MG TAB PO SCH (09:10)
[2023-06-05] MEDS: HYDROcodone/APAP 7.5-325MG 1 EACH TAB PO PRN ×3 (09:27→21:41)
[2023-06-05 11:18] LABS: Glucose,Whole Blood 89 mg/dL (70-110)
--- NOTE | 2023-06-05 12:32 | P.PN ---
Subjective Progress Note Date: 06/05/23 Principal diagnosis: Acute hypoxic respiratory failure secondary to COPD exacerbation and hospital- acquired pneumonia 72-year-old male who presents to the emergency department, complaining of shortness of breath. She apparently came in from a custodial, where he was rehabbing for a broken arm and leg. The patient has very severe COPD with an FEV1 that's 34% of predicted. He does use home oxygen at between 3-4 L/m. His primary care provider is Dr. Jamie Balderas, and he sees my partner in the office, for his COPD. The patient does continue to smoke cigarettes. He typically is on Symbicort, Ventolin inhaler, and a nebulizer machine. The patient is currently on Rocephin and Zithromax, for possible pneumonia. A pro-calcitonin level has been ordered. Clinically, the patient does not look overwhelmingly ill. In addition to COPD, he has a history of hypertension, and gastroesophageal reflux disease. He also has a history of CAD, deafness, hyperlipidemia, hypertension, laryngeal carcinoma, status post radiation, and kidney stones among other things. White count 11.2, hemoglobin 9.1, hematocrit 28.6, and platelet count 338,000. Sodium 1:30, potassium 4.5, chlorides 93, CO2 27, BUN 23, and creatinine 0.73. Calcium 8. Urine is negative. He tested negative for influenza, RSV, and coronavirus. Chest x-ray shows changes of COPD, with bilateral basilar airspace disease. On today's evaluation of 05/28/2023, I'm seeing the patient for a follow-up. The patient is having some congested cough and he was able to give me a sputum sample. She does have a hospital-acquired pneumonia and the patient has no infiltrates in the lung bases bilaterally. No reported aspiration. Note that the patient was in the hospital for a hip fracture and subsequently was sent to rehabilitation. No fever or chills at this point in time. His oxygen requirements are at 4 L of oxygen by nasal cannula with a pulse ox 95%. Note that the patient also has advanced COPD with an FEV1 of 34% of predicted. The white cell count of 8.8 with a hemoglobin of 8.4. Sodium level is at 128 and a potassium level of 4.6. The ends of 26 with a creatinine of 0.6. Patient is currently on IV Rocephin. The blood culture is negative the CAT scan of the chest showed lower lobe pulmonary infiltrates and a CAT scan of the abdomen showed a moderate to large hiatal hernia, left-sided renal calculus measuring 7 mm in size without any hydronephrosis, diverticulosis and a recent right hip arthroplasty with postsurgical soft tissue swelling. There is a seroma also measuring 2.8 cm in size by 28 cm in size. On today's evaluation of 05/29/2023, the patient is being treated for bilateral pneumonia. The patient is currently on a combination of Zosyn and vancomycin. He is also on bronchodilators. He remains on IV Solu-Medrol. Cough and congestion is improved. Sputum sample that was collected earlier was positive for Queenie. No fever. No chills. No other new complaints. No shortness of breath. He shortness of breath continued to improve. Renal function stable with a creatinine of 0.8. The rest of the records is still pending for now. Blood sugar this morning is at 97. On today's evaluation of 05/30/2023, the patient is still on a combination of Zosyn and vancomycin. Repeat chest x-ray was done and the patient showed again presence of a persistent multifocal airspace disease bilaterally without any significant interval change. He does have some oropharyngeal candidiasis and he was started also on nystatin. He is afebrile. Blood work shows a sodium level of 131, potassium level of 4.3, serum bicarbs at 24. The vancomycin trough is at 21. Oxygen requirements is unchanged and the patient remains on 4 L of O2 nasal cannula. Surgical one-sided over the right hip is dry clean and intact. He is wearing a sling. Is also wearing a both in his right lower extremity. On today's evaluation of 05/31/2023, no new complaints. The patient remains on oxygen and is currently on 4 L of oxygen by nasal cannula. He remains on broad- spectrum antibiotics. Renal function is stable. He remains on accommodation Zosyn and vancomycin. No altered mentation. No chest pain. The patient was also seen by orthopedic surgery. X-ray of the ankle was done and it showed an acute on chronic distal tubular fractures with adequate alignment. X-ray of the hip was in good alignment. X-ray of the shoulder showed a displaced proximal and infection that was healing. On 06/01/2023, no new complaints and the patient remains on 4 L of oxygen by nasal cannula. Continues to see broad-spectrum antibiotics regarding his hospital-acquired pneumonia and he remains on accommodation Zosyn and vancomycin. Chest x-ray showing stable with consolidation lung bases more so on the right. I think there may be some interval improvement. The immobilizing boot has been removed. No respiratory difficulties for now. Using the incentive spirometer. Creatinine stable at 0.9. Blood sugars at 238. On today's evaluation of 06/02/2022, the patient has no specific complaints. He has developed some scrotal edema. Repeat chest x-ray shows stable but the pulmonary lower lobe consolidation. The patient is still on IV antibiotics and is receiving a combination of Zosyn and vancomycin. The patient was taken off the IV Solu-Medrol and the patient is currently on prednisone. He is bringing up congested mucous and the earlier sputum sample was positive for Qeuenie. No other new complaints otherwise for now. No new labs are available from today. On 06/03/2023, patient is doing well. They've about the pulmonary infiltrates related to pneumonia. Clinically improved. Remains on Zosyn and vancomycin and completing a 7 day course. He is noted to have increased swelling both lower extremities, abdominal wall and scrotum. He was started on oral Lasix. This was switched IV Lasix. He is producing adequate amount of urine output. He remains on bronchodilators. He remains on steroids and the patient has been switched to prednisone burst taper. He remains on 4 L of oxygen nasal cannula. Using incentive spirometer. Labs from today shows a white cell count of 6, hemoglobin of 10, platelets of 367, BUN is 34 with a creatinine of 0.6 and a sodium level is at 131. No new complaints otherwise for now. Reevaluated today on 06/04/2023, she is feeling better, eating a lot easier, patient has received full course of Zosyn and vancomycin for the last 8 days, his cultures have been nondiagnostic on this admission, however looking back at his previous sputum cultures growing Serratia marcescens on his last admission, hence I will transition the patient from his present antibiotics to Bactrim and eventually plan on discharging the patient home in the next few days. WBC count is 6.4 hemoglobin is 10.1 basic metabolic profile is normal and renal profile is normal patient is on 4 L nasal cannula with O2 saturation 98% Patient was reevaluated today on 06/05/2023, continues to do well, clinically the patient is improving, yesterday I have changed his antibiotics to Bactrim instead of Zosyn and vancomycin, patient had previous history of Serratia ma rcescens infection. This was in the sputum, and this was on 04/15/22. On this admission, sputum cultures showed mostly Queenie albicans. Cultures have been negative a remains on bronchodilators, and I believe the patient could be considered for possible discharge planning. Objective - Vital Signs Vital signs: Vital Signs Temp 98.3 F 06/05/23 09:05 Pulse 76 06/05/23 12:18 Resp 22 06/05/23 09:05 BP 95/40 06/05/23 09:05 Pulse Ox 92 L 06/05/23 09:05 FiO2 50 05/26/23 10:30 Intake & Output 06/04/23 06/05/23 06/05/23 18:59 06:59 18:59 Intake Total 1080 720 780 Output Total 2125 2400 Balance -1045 -1680 780 Weight 89.5 kg Intake: Oral 1080 720 780 Output: Urine 2125 2400 Other: Voiding Method Urinal Urinal Urinal # Voids 1 # Bowel Movements 1 - Exam Physical Exam: Revealed 72-year-old white male in no distress on 2 L nasal cannula Head: Atraumatic, normocephalic. HEENT:[Neck is supple.] [No neck masses.] [No thyromegaly.] [No JVD.] Chest: [Crackles at the bases bilaterally right more so than left Cardiac Exam: [Normal S1 and S2, no S3 gallop, no murmur.] Abdomen: [Soft, nontender, no megaly, no rebound, no guarding, normal bowel sounds.] Extremities: [No clubbing, no edema, no cyanosis.] Neurological Exam: [No focal neurologic deficit.] Alert oriented 3. Psychiatric: Normal mood, affect and normal mental status examination. Skin: No rashes. - Labs CBC & Chem 7: 06/03/23 07:46 06/05/23 06:06 Labs: Abnormal Lab Results - Last 24 Hours (Table) 06/04/23 06/04/23 Range/Units 16:28 20:01 POC Glucose (mg/dL) 128 H 160 H (70-110) mg/dL Assessment and Plan Assessment: Impression: Acute hypoxemic respiratory failure, secondary to COPD exacerbation, Hospital-acquired pneumonia, previous sputum cultures have grown Serratia marcescens Oropharyngeal candidiasis History of ongoing tobacco use with nicotine addiction. History of severe/stage III COPD, with an FEV1 that's 34% of predicted. History of hypertension. History of laryngeal carcinoma, status post radiation treatments. History of gastroesophageal reflux disease. Right proximal humeral neck/head fracture still wearing his sling Seroma measuring 28 x 3 cm in size, postsurgical in nature involving the right hip Large hiatal hernia Left sided renal calculus Cholelithiasis without cholecystitis Recommendation: Continue oral Bactrim for at least 7 days. Patient is now off IV antibiotics Continue bronchodilators Continue tapering the prednisone on outpatient basis Consider discharge planning if cleared by other consultants Continue diuretics We will continue to follow. Time with Patient: Less than 30
[2023-06-05] MEDS: ACETAMINOPHEN TAB 325 MG TAB PO PRN (12:47)
[2023-06-05] MEDS: lisinopriL 20 MG TAB PO SCH (15:25)
--- NOTE | 2023-06-05 15:28 | P.PN ---
Subjective Progress Note Date: 06/05/23 Subjective 72-year-old male, history of coronary artery disease, COPD, hypertension, hyperlipidemia, chronic hypoxic/hypercapnic respiratory failure, patient uses O2 at 2 L per nasal cannula, presents emergency Department for difficulty breathing. Patient comes from a senior care where he is being rehabbed because of an injury to his arm and his leg. Patient is unaware of exactly how the injury occurred. Patient has been having a difficulty breathing since earlier today. Patient has a history of COPD. According to staff she was oxygenating in the 70s. Patient also 102 temp according to staff. Patient was not given Motrin or Tylenol. EMS arrived and the patient was on a nonrebreather and they gave him a breathing treatment on the way in and he was feeling better and didn't look as much distress. Patient had no complaints of any pain. Echo completed in ED reveals WBC of 13.6, hemoglobin of 9.1. Count of 306, sodium 129, potassium 4.4, BUN/creatinine of 20/0.65 d-dimer elevated at 1.89, troponin less than 0.012 -- Patient reports pain in right arm which is in a sling and is requesting Biofreeze - Has been evaluated by pulmonary and is recommended to continue IV Rocephin, azithromycin and IV Solu-Medrol; patient will continue with nebulizer treatments and Symbicort 05/28/2023 Patient states that his dyspnea is improving Postoperative his have coughing and cough medicine as provided for him He is on 3 L oxygen per minute which is his home dose. His WBC is normal at 8.8, hemoglobin 8.4, sodium 128. CTA of the chest is negative for PE Chest x-rays showing worsening infiltrates especially on the right side Antibiotics for change in to Zosyn and IV vancomycin for hospital-acquired pneumonia. Ulcers on IV Solu-Medrol 60 mg 05/29/2023 His breathing status is improving today after antibiotics was checked yesterday and to Zosyn and IV vancomycin for hospital acquired pneumonia rather than community-acquired pneumonia. Distal coughing. He is on home dose of 3 to oxygenating nasal cannula 05/30/2023 Patient breathing is a stable. He is at home dose of oxygen at 3-4 L/m. His repeat chest x-ray shows stable bibasilar findings. Remains on Zosyn and IV vancomycin. Creatinine stable 0.8, sodium level is pending for today. Patient will be discharged back to rehab when cleared medically 05/31/2023 Patient breathing quietly at bedside, I still have some degree of wheezing and limited air entry in both sides Patient complaining of from pain in his right shoulder. Right ankle x-ray: Increasing soft tissue swelling around the ankle Right shoulder and hip x-ray: Comminuted two-part fracture proximal right humerus with impacted surgical neck component. Greater tuberosity fracture component is displaced slightly by 5 mm. As compared to 05/10/2023, there appears to be greater degree of impaction and anteromedial displacement of 1 cm. ; Unc omplicated right hip hemiarthroplasty Orthopedic team consulted Patient remains on Zosyn, IV vancomycin, nystatin, I decided Medrol 60 mg 06/01/2023 Patient then looks quiet at rest but he still have significant course secretion and bilateral wheezing on auscultation Oxygen requirement stable Her remains on IV Zosyn and vancomycin and IV Solu-Medrol with a close monitoring Chest x-ray looks the same when I reviewed it Orthopedic team recommended to continue with a sling to the right upper extre mity on follow-up in the office in 1 month 06/02/2023 Patient breathing is improving slowly and gradually, on examination he has limited air entry. He remains on IV antibiotics with Zosyn and IV vancomycin, steroidsto oral prednisone today. He has evidence of swelling legs and penis, no signs of cellulitis. His received 1 dose of IV Lasix as wished to 40 mg by mouth twice a day. Repeat chest x-ray from yesterday showing no change, chest x-ray from today is pending. Patient right arm in a sling and she supposed to go to rehab upon discharge 06/03/2023 Patient is still with limited air entry and some wheezing bilaterally also with evidence of leg edema Patient continued on his steroids but switched to oral prednisone He remains on IV vancomycin and Zosyn IV Lasix is admitted today to help him with diuresis. Patient is sitting in bed most of the time but is walking to the bathroom with l ittle exertional dyspnea. 06/04/2023 Patient clinically looks similar to yesterday with slightly better air entry, less wheezing still has evidence of leg edema His antibiotics switched to Bactrim while continue with oral prednisone Patient continue with IV Lasix. Other than he looks pleasant and relaxed with no pain and he is currently on 4 L/m which is close to his home dose of 2-4 L at home. 06/05/2023 Patient clinically is improved today he's breathing much easier. He does have some edema and some scrotal edema as well he's currently on IV Lasix. He denies any fever Objective - Vital Signs Vital signs: Vital Signs Temp 98.0 F 06/04/23 15:33 Pulse 63 06/04/23 15:33 Resp 18 06/04/23 15:33 BP 118/67 06/04/23 15:33 Pulse Ox 99 06/04/23 15:33 FiO2 50 05/26/23 10:30 Intake & Output 06/03/23 06/04/23 06/04/23 18:59 06:59 18:59 Intake Total 240 490 480 Output Total 3175 2100 1775 Balance -2234 -3536 -3002 Intake: IV 10 Invasive Line 4 10 Oral 240 480 480 Output: Urine 3175 2100 1775 Other: Voiding Method Urinal Urinal Urinal # Voids 1 1 # Bowel Movements 1 - Exam GENERAL: The patient is alert and oriented x3, not in any acute distress. Well developed, well nourished. HEENT: Pupils are round and equally reacting to light. EOMI. No scleral icterus. No conjunctival pallor. Normocephalic, atraumatic. No pharyngeal erythema. No thyromegaly. CARDIOVASCULAR: S1 and S2 present. No murmurs, rubs, or gallops. --PULMONARY: Chest is clear to auscultation, bilateral expiratory wheezing , no crackles. Decreased breath sounds on the bases ABDOMEN: Soft, nontender, nondistended, normoactive bowel sounds. No palpable organomegaly. MUSCULOSKELETAL: No joint swelling or deformity. -EXTREMITIES: No cyanosis, clubbing, or pedal edema. Right arm in a sling NEUROLOGICAL: Gross neurological examination did not reveal any focal deficits. SKIN: No rashes. no petechiae. - Labs CBC & Chem 7: 06/03/23 07:46 06/04/23 02:54 Labs: Abnormal Lab Results - Last 24 Hours (Table) 06/03/23 06/03/23 Range/Units 16:32 19:50 POC Glucose (mg/dL) 157 H 143 H (70-110) mg/dL Assessment and Plan Assessment: Bilateral basal hospital acquired pneumonia Acute COPD exacerbation Acute on chronic hypoxic respiratory failure Comminuted right humerus fracture with impacted surgical neck Hyponatremia Chronic anemia Benign prostatic hypertrophy Hypertension Recent history of hip surgery status post [facility] Plan: Continue with antibiotic, currently on Bactrim Continue with prednisone 40 mg Continue with the Lasix 40 mg twice daily On oxygen Continue with bronchodilator Pulmonary team consult Orthopedic team consult Continue with symptomatic treatment Further recommendation based on the clinical course DVT prophylaxis aspirin twice a day GI prophylaxis Protonix Objective - Vital Signs Vital signs: Vital Signs Temp 98.3 F 06/05/23 09:05 Pulse 76 06/05/23 12:18 Resp 22 06/05/23 09:05 BP 95/40 06/05/23 09:05 Pulse Ox 92 L 06/05/23 09:05 FiO2 50 05/26/23 10:30 Intake & Output 06/04/23 06/05/23 06/05/23 18:59 06:59 18:59 Intake Total 0242 450 1000 Output Total 2125 2400 Balance -1045 -1680 1020 Weight 89.5 kg Intake: Oral 5663 751 8121 Output: Urine 2125 2400 Other: Voiding Method Urinal Urinal Urinal # Voids 1 # Bowel Movements 1 - Labs CBC & Chem 7: 06/03/23 07:46 06/05/23 06:06 Labs: Abnormal Lab Results - Last 24 Hours (Table) 06/04/23 06/04/23 Range/Units 16:28 20:01 POC Glucose (mg/dL) 128 H 160 H (70-110) mg/dL
[2023-06-05 16:27] LABS: Glucose,Whole Blood 161 mg/dL (70-110)
[2023-06-05 19:55] LABS: Glucose,Whole Blood 188 mg/dL (70-110)
[2023-06-06] MEDS: HYDROcodone/APAP 7.5-325MG 1 EACH TAB PO PRN ×4 (02:57→21:52)
[2023-06-06 06:18] LABS: Glucose,Whole Blood 95 mg/dL (70-110)
[2023-06-06] MEDS: PANTOPRAZOLE 40 MG TABLET PO SCH (06:19)
[2023-06-06] MEDS: INSULIN ASPART (NovoLOG) 100 UNIT/ML VIAL SQ SCH ×4 (06:19→21:34)
[2023-06-06] MEDS: TAMSULOSIN 0.4 MG CAP.ER.24H PO SCH (09:32)
[2023-06-06] MEDS: SENNOSIDES-DOCUSATE SODIUM 1 EACH TAB PO SCH ×2 (09:32→21:52)
[2023-06-06] MEDS: predniSONE 20 MG TAB PO SCH (09:32)
[2023-06-06] MEDS: METOPROLOL SUCCINATE (ER) 25 MG TAB.ER.24H PO SCH (09:33)
[2023-06-06] MEDS: NYSTATIN 100,000 UNIT/ML SUSP 500,000 UNIT/5 ML CUP PO SCH ×4 (09:34→21:53)
[2023-06-06] MEDS: FUROSEMIDE 10 MG/ML 4 ML VIAL IV SCH (09:34)
[2023-06-06] MEDS: SULFAMETHOX-TMP 800-160MG 1 EACH TAB PO SCH ×2 (09:34→21:52)
[2023-06-06] MEDS: ASPIRIN 81 MG PO SCH ×2 (09:34→21:53)
[2023-06-06] MEDS: lisinopriL 20 MG TAB PO SCH (09:34)
[2023-06-06] MEDS: IPRATROPIUM-ALBUTEROL 3 ML NEB INHALATION SCH ×4 (09:39→21:20)
[2023-06-06] MEDS: SYMBICORT 160-4.5 MCG INHALER INHALATION SCH ×2 (09:40→21:20)
[2023-06-06 11:33] LABS: Glucose,Whole Blood 117 mg/dL (70-110)
[2023-06-06] MEDS: ACETAMINOPHEN TAB 325 MG TAB PO PRN (13:12)
[2023-06-06 13:32] LABS: HGB 9.1 gm/dL (13.0-17.5); MCH 29.8 pg (25.0-35.0); MCHC 32.6 g/dL (31.0-37.0); MCV 91.6 fL (80.0-100.0); Mean Platelet Volume 7.2; Platelet Count 313 k/uL (150-450); RBC 3.06 m/uL (4.30-5.90); RDW 15.8 % (11.5-15.5); WBC 8.7 k/uL (3.8-10.6)
[2023-06-06 13:44] LABS: African American GFR (CKD) 83 (>60 ml/min/1.73 sqM); Anion Gap 7 mmol/L; Blood Urea Nitrogen 41 mg/dL (9-20); Calcium 7.8 mg/dL (8.4-10.2); Carbon Dioxide 30 mmol/L (22-30); Chloride 93 mmol/L (98-107); Glucose 171 mg/dL (74-99); Non-African American GFR(CKD) 72 (>60 ml/min/1.73 sqM); Potassium 4.4 mmol/L (3.5-5.1); Sodium 130 mmol/L (137-145)
--- NOTE | 2023-06-06 14:30 | P.PN ---
Subjective Progress Note Date: 06/06/23 Principal diagnosis: Acute hypoxic respiratory failure secondary to COPD exacerbation and hospital- acquired pneumonia 72-year-old male who presents to the emergency department, complaining of shortness of breath. She apparently came in from a [facility], where he was rehabbing for a broken arm and leg. The patient has very severe COPD with an FEV1 that's 34% of predicted. He does use home oxygen at between 3-4 L/m. His primary care provider is Dr. Jamie Balderas, and he sees my partner in the office, for his COPD. The patient does continue to smoke cigarettes. He typically is on Symbicort, Ventolin inhaler, and a nebulizer machine. The patient is currently on Rocephin and Zithromax, for possible pneumonia. A pro-calcitonin level has been ordered. Clinically, the patient does not look overwhelmingly ill. In addition to COPD, he has a history of hypertension, and gastroesophageal reflux disease. He also has a history of CAD, deafness, hyperlipidemia, hypertension, laryngeal carcinoma, status post radiation, and kidney stones among other things. White count 11.2, hemoglobin 9.1, hematocrit 28.6, and platelet count 338,000. Sodium 1:30, potassium 4.5, chlorides 93, CO2 27, BUN 23, and creatinine 0.73. Calcium 8. Urine is negative. He tested negative for influenza, RSV, and coronavirus. Chest x-ray shows changes of COPD, with bilateral basilar airspace disease. On today's evaluation of 05/28/2023, I'm seeing the patient for a follow-up. The patient is having some congested cough and he was able to give me a sputum sample. She does have a hospital-acquired pneumonia and the patient has no infiltrates in the lung bases bilaterally. No reported aspiration. Note that the patient was in the hospital for a hip fracture and subsequently was sent to rehabilitation. No fever or chills at this point in time. His oxygen requirements are at 4 L of oxygen by nasal cannula with a pulse ox 95%. Note that the patient also has advanced COPD with an FEV1 of 34% of predicted. The white cell count of 8.8 with a hemoglobin of 8.4. Sodium level is at 128 and a potassium level of 4.6. The ends of 26 with a creatinine of 0.6. Patient is currently on IV Rocephin. The blood culture is negative the CAT scan of the chest showed lower lobe pulmonary infiltrates and a CAT scan of the abdomen showed a moderate to large hiatal hernia, left-sided renal calculus measuring 7 mm in size without any hydronephrosis, diverticulosis and a recent right hip arthroplasty with postsurgical soft tissue swelling. There is a seroma also measuring 2.8 cm in size by 28 cm in size. On today's evaluation of 05/29/2023, the patient is being treated for bilateral pneumonia. The patient is currently on a combination of Zosyn and vancomycin. He is also on bronchodilators. He remains on IV Solu-Medrol. Cough and congestion is improved. Sputum sample that was collected earlier was positive for Queenie. No fever. No chills. No other new complaints. No shortness of breath. He shortness of breath continued to improve. Renal function stable with a creatinine of 0.8. The rest of the records is still pending for now. Blood sugar this morning is at 97. On today's evaluation of 05/30/2023, the patient is still on a combination of Zosyn and vancomycin. Repeat chest x-ray was done and the patient showed again presence of a persistent multifocal airspace disease bilaterally without any significant interval change. He does have some oropharyngeal candidiasis and he was started also on nystatin. He is afebrile. Blood work shows a sodium level of 131, potassium level of 4.3, serum bicarbs at 24. The vancomycin trough is at 21. Oxygen requirements is unchanged and the patient remains on 4 L of O2 nasal cannula. Surgical one-sided over the right hip is dry clean and intact. He is wearing a sling. Is also wearing a both in his right lower extremity. On today's evaluation of 05/31/2023, no new complaints. The patient remains on oxygen and is currently on 4 L of oxygen by nasal cannula. He remains on broad- spectrum antibiotics. Renal function is stable. He remains on accommodation Zosyn and vancomycin. No altered mentation. No chest pain. The patient was also seen by orthopedic surgery. X-ray of the ankle was done and it showed an acute on chronic distal tubular fractures with adequate alignment. X-ray of the hip was in good alignment. X-ray of the shoulder showed a displaced proximal and infection that was healing. On 06/01/2023, no new complaints and the patient remains on 4 L of oxygen by nasal cannula. Continues to see broad-spectrum antibiotics regarding his hospital-acquired pneumonia and he remains on accommodation Zosyn and vancomycin. Chest x-ray showing stable with consolidation lung bases more so on the right. I think there may be some interval improvement. The immobilizing boot has been removed. No respiratory difficulties for now. Using the incentive spirometer. Creatinine stable at 0.9. Blood sugars at 238. On today's evaluation of 06/02/2022, the patient has no specific complaints. He has developed some scrotal edema. Repeat chest x-ray shows stable but the pulmonary lower lobe consolidation. The patient is still on IV antibiotics and is receiving a combination of Zosyn and vancomycin. The patient was taken off the IV Solu-Medrol and the patient is currently on prednisone. He is bringing up congested mucous and the earlier sputum sample was positive for Queenie. No other new complaints otherwise for now. No new labs are available from today. On 06/03/2023, patient is doing well. They've about the pulmonary infiltrates related to pneumonia. Clinically improved. Remains on Zosyn and vancomycin and completing a 7 day course. He is noted to have increased swelling both lower extremities, abdominal wall and scrotum. He was started on oral Lasix. This was switched IV Lasix. He is producing adequate amount of urine output. He remains on bronchodilators. He remains on steroids and the patient has been switched to prednisone burst taper. He remains on 4 L of oxygen nasal cannula. Using incentive spirometer. Labs from today shows a white cell count of 6, hemoglobin of 10, platelets of 367, BUN is 34 with a creatinine of 0.6 and a sodium level is at 131. No new complaints otherwise for now. Reevaluated today on 06/04/2023, she is feeling better, eating a lot easier, patient has received full course of Zosyn and vancomycin for the last 8 days, his cultures have been nondiagnostic on this admission, however looking back at his previous sputum cultures growing Serratia marcescens on his last admission, hence I will transition the patient from his present antibiotics to Bactrim and eventually plan on discharging the patient home in the next few days. WBC count is 6.4 hemoglobin is 10.1 basic metabolic profile is normal and renal profile is normal patient is on 4 L nasal cannula with O2 saturation 98% Patient was reevaluated today on 06/05/2023, continues to do well, clinically the patient is improving, yesterday I have changed his antibiotics to Bactrim instead of Zosyn and vancomycin, patient had previous history of Serratia ma rcescens infection. This was in the sputum, and this was on 04/15/22. On this admission, sputum cultures showed mostly Queenie albicans. Cultures have been negative a remains on bronchodilators, and I believe the patient could be considered for possible discharge planning. Reevaluated today on 06/06/23, patient continues to do well, remains on Bactrim, tolerating Bactrim quite well, does not seem to be in any distress, remains on 4 L nasal cannula, O2 sat 92%. Hardly any cough or wheezing, he does have some shortness of breath on exertion no fever no chills no hemoptysis WBC count today is 8.7 hemoglobin 9.1 basic metabolic profile is normal BUN is 41 creatinine 1.05. Objective - Vital Signs Vital signs: Vital Signs Temp 98.0 F 06/06/23 11:21 Pulse 68 06/06/23 12:35 Resp 17 06/06/23 11:21 BP 101/47 06/06/23 11:21 Pulse Ox 92 L 06/06/23 11:21 FiO2 50 05/26/23 10:30 Intake & Output 06/05/23 06/06/23 06/06/23 18:59 06:59 18:59 Intake Total 1500 10 240 Output Total 166 256 7038 Balance 975 -740 -1610 Weight 89.5 kg Intake: IV 10 Invasive Line 4 10 Oral 1500 240 Output: Urine 661 365 1508 Other: Voiding Method Urinal Urinal # Voids 1 1 # Bowel Movements 1 - Exam Physical Exam: Revealed 72-year-old white male in no distress on 4 L nasal cannula Head: Atraumatic, normocephalic. HEENT:[Neck is supple.] [No neck masses.] [No thyromegaly.] [No JVD.] Chest: [Crackles bibasilar. Nor rhonchi no wheezes Cardiac Exam: [Normal S1 and S2, no S3 gallop, no murmur.] Abdomen: [Soft, nontender, no megaly, no rebound, no guarding, normal bowel sounds.] Extremities: [No clubbing, no edema, no cyanosis.] Neurological Exam: [No focal neurologic deficit.] Alert oriented 3. Psychiatric: Normal mood, affect and normal mental status examination. Skin: No rashes. - Labs CBC & Chem 7: 06/06/23 13:20 06/06/23 13:20 Labs: Abnormal Lab Results - Last 24 Hours (Table) 06/05/23 06/05/23 06/06/23 Range/Units 16:26 19:49 11:32 RBC (4.30-5.90) m/uL Hgb (13.0-17.5) gm/dL Hct (39.0-53.0) % RDW (11.5-15.5) % Sodium (137-145) mmol/L Chloride (98-107) mmol/L BUN (9-20) mg/dL Glucose (74-99) mg/dL POC Glucose (mg/dL) 161 H 188 H 117 H (70-110) mg/dL Calcium (8.4-10.2) mg/dL 06/06/23 06/06/23 Range/Units 13:20 13:20 RBC 3.06 L (4.30-5.90) m/uL Hgb 9.1 L (13.0-17.5) gm/dL Hct 28.0 L (39.0-53.0) % RDW 15.8 H (11.5-15.5) % Sodium 130 L (137-145) mmol/L Chloride 93 L (98-107) mmol/L BUN 41 H (9-20) mg/dL Glucose 171 H (74-99) mg/dL POC Glucose (mg/dL) (70-110) mg/dL Calcium 7.8 L (8.4-10.2) mg/dL Assessment and Plan Assessment: Impression: Acute hypoxemic respiratory failure, secondary to COPD exacerbation, Hospital-acquired pneumonia, previous sputum cultures have grown Serratia marcescens Oropharyngeal candidiasis History of ongoing tobacco use with nicotine addiction. History of severe/stage III COPD, with an FEV1 that's 34% of predicted. History of hypertension. History of laryngeal carcinoma, status post radiation treatments. History of gastroesophageal reflux disease. Right proximal humeral neck/head fracture still wearing his sling Seroma measuring 28 x 3 cm in size, postsurgical in nature involving the right hip Large hiatal hernia Left sided renal calculus Cholelithiasis without cholecystitis Recommendation: Continue oxygen and titrate accordingly Continue oral Bactrim for at least 7 days. Patient is now off IV antibiotics Continue bronchodilators Continue tapering the prednisone on outpatient basis, patient is on prednisone presently at 40 mg daily Awaiting placement at the [facility] Continue diuretics, Lasix 40 mg IV push every 12 hours, we will change to oral Lasix 40 mg by mouth twice a day Cleared from our perspective for discharge planning once a bed is available assuming he is cleared by other consultants We will continue to follow. Time with Patient: Less than 30
[2023-06-06] MEDS: FUROSEMIDE 40 MG TAB PO SCH (15:49)
[2023-06-06 16:07] VITALS: RESP 18
[2023-06-06 16:26] LABS: Glucose,Whole Blood 128 mg/dL (70-110)
[2023-06-06 19:50] LABS: Glucose,Whole Blood 123 mg/dL (70-110)
[2023-06-07 06:10] LABS: Glucose,Whole Blood 77 mg/dL (70-110)
[2023-06-07] MEDS: INSULIN ASPART (NovoLOG) 100 UNIT/ML VIAL SQ SCH ×2 (06:26→12:36)
[2023-06-07] MEDS: HYDROcodone/APAP 7.5-325MG 1 EACH TAB PO PRN (06:29)
[2023-06-07] MEDS: PANTOPRAZOLE 40 MG TABLET PO SCH (06:29)
[2023-06-07] MEDS: predniSONE 20 MG TAB PO SCH (08:21)
[2023-06-07] MEDS: TAMSULOSIN 0.4 MG CAP.ER.24H PO SCH (08:21)
[2023-06-07] MEDS: ASPIRIN 81 MG PO SCH (08:21)
[2023-06-07] MEDS: FUROSEMIDE 40 MG TAB PO SCH (08:21)
[2023-06-07] MEDS: METOPROLOL SUCCINATE (ER) 25 MG TAB.ER.24H PO SCH (08:21)
[2023-06-07] MEDS: SULFAMETHOX-TMP 800-160MG 1 EACH TAB PO SCH (08:22)
[2023-06-07] MEDS: SENNOSIDES-DOCUSATE SODIUM 1 EACH TAB PO SCH (08:22)
[2023-06-07] MEDS: NYSTATIN 100,000 UNIT/ML SUSP 500,000 UNIT/5 ML CUP PO SCH ×2 (08:22→13:05)
[2023-06-07] MEDS: lisinopriL 20 MG TAB PO SCH (08:27)
[2023-06-07] MEDS: SYMBICORT 160-4.5 MCG INHALER INHALATION SCH (09:42)
[2023-06-07] MEDS: IPRATROPIUM-ALBUTEROL 3 ML NEB INHALATION SCH ×2 (09:43→12:34)
[2023-06-07 10:19] VITALS: TEMP 98.6
[2023-06-07 11:27] LABS: Glucose,Whole Blood 125 mg/dL (70-110)
--- NOTE | 2023-06-07 13:53 | P.DS ---
Providers Date of admission: 05/26/23 13:36 Expected date of discharge: 06/07/23 Attending physician: Jamie Balderas Consults: 05/26/23 13:36 Consult Physician Routine Consulting Provider: Shan Price Reason/Comments: Pneumonia, COPD Do you want consulting provider notified?: Yes Primary care physician: Jamie Balderas - Discharge Diagnosis(es) (1) Abdominal pain Current Visit: Yes Status: Acute (2) COPD exacerbation Current Visit: Yes Status: Acute (3) Hyponatremia Current Visit: Yes Status: Acute (4) Right humeral fracture Current Visit: Yes Status: Acute (5) Acute hypoxic respiratory failure Current Visit: Yes Status: Acute (6) Hospital-acquired bacterial pneumonia Current Visit: Yes Status: Acute (7) Pneumonia Current Visit: Yes Status: Acute (8) Status post hip hemiarthroplasty Current Visit: Yes Status: Acute Hospital Course: 72-year-old male, history of coronary artery disease, COPD, hypertension, hyperlipidemia, chronic hypoxic/hypercapnic respiratory failure, patient uses O2 at 2 L per nasal cannula, presents emergency Department for difficulty breathing. Patient comes from a [place] [facility] where he is being rehabbed because of an injury to his arm and his leg. Patient is unaware of exactly how the injury occurred. Patient has been having a difficulty breathing since earlier today. Patient has a history of COPD. According to staff she was oxygenating in the 70s. Patient also 102 temp according to staff. Patient was doing better with treatment of hospital acquired PNM and was cleared to return to rehab for his recent fall and injuries. Continue Bactrim BID for 7 days more and taper steriods. Plan - Discharge Summary Discharge Rx Participant: Yes New Discharge Prescriptions: New Sulfamethox-Tmp 800-160Mg [Bactrim DS 800-160 mg] 1 each PO BID tab Ipratropium-Albuterol Nebulize [Duoneb 0.5 mg-3 mg/3 ml Soln] 3 ml INHALATION RT-QID each predniSONE [Deltasone] 40 mg PO DAILY tab Furosemide [Lasix] 40 mg PO DAILY tab Nystatin 100,000 Unit/ml Susp [Mycostatin Oral Susp] 500,000 unit PO QID ml INSULIN ASPART (NovoLOG) [NovoLOG (formulary)] 0 unit SQ ACHS each Continue lisinopriL [Zestril] 20 mg PO BID Albuterol Nebulized [Ventolin Nebulized] 2.5 mg INHALATION RT-QID PRN PRN Reason: Shortness Of Breath Albuterol Sulfate [Ventolin HFA] 2 puff INHALATION RT-Q6H PRN PRN Reason: Shortness Of Breath Tamsulosin HCl [Flomax] 0.4 mg PO DAILY Metoprolol Succinate (ER) [Toprol XL] 12.5 mg PO DAILY #30 tab Omeprazole 20 mg PO DAILY Aspirin [Adult Low Dose Aspirin EC] 81 mg PO BID #1 tab Acetaminophen Tab [Tylenol] 650 mg PO Q6HR PRN tab PRN Reason: Mild Pain Or Fever > 100.5 Budesonide-Formot 160-4.5 Mcg [Symbicort 160-4.5 Mcg Inhaler] 2 puff INHALATION RT-BID #1 each Sennosides-Docusate Sodium [Senokot-S] 1 tab PO BID #60 tablet HYDROcodone/APAP 7.5-325MG [Zoar 7.5-325] 1 - 2 tab PO Q6H PRN PRN Reason: Pain Discontinued predniSONE See Taper PO DIRECTED Discharge Medication List lisinopriL [Zestril] 20 mg PO BID 03/04/19 [History] Albuterol Nebulized [Ventolin Nebulized] 2.5 mg INHALATION RT-QID PRN 03/06/20 [History] Albuterol Sulfate [Ventolin HFA] 2 puff INHALATION RT-Q6H PRN 03/06/20 [History] Tamsulosin HCl [Flomax] 0.4 mg PO DAILY 04/11/22 [History] Budesonide-Formot 160-4.5 Mcg [Symbicort 160-4.5 Mcg Inhaler] 2 puff INHALATION RT-BID #1 each 04/16/22 [Rx] Metoprolol Succinate (ER) [Toprol XL] 12.5 mg PO DAILY #30 tab 04/16/22 [Rx] Omeprazole 20 mg PO DAILY 05/02/22 [History] Aspirin [Adult Low Dose Aspirin EC] 81 mg PO BID #1 tab 05/13/23 [Rx] Sennosides-Docusate Sodium [Senokot-S] 1 tab PO BID #60 tablet 05/13/23 [Rx] Acetaminophen Tab [Tylenol] 650 mg PO Q6HR PRN tab 05/14/23 [Rx] HYDROcodone/APAP 7.5-325MG [Zoar 7.5-325] 1 - 2 tab PO Q6H PRN 05/26/23 [History] Furosemide [Lasix] 40 mg PO DAILY tab 06/07/23 [Rx] INSULIN ASPART (NovoLOG) [NovoLOG (formulary)] 0 unit SQ ACHS each 06/07/23 [Rx] Ipratropium-Albuterol Nebulize [Duoneb 0.5 mg-3 mg/3 ml Soln] 3 ml INHALATION RT-QID each 06/07/23 [Rx] Nystatin 100,000 Unit/ml Susp [Mycostatin Oral Susp] 500,000 unit PO QID ml 06/07/23 [Rx] Sulfamethox-Tmp 800-160Mg [Bactrim DS 800-160 mg] 1 each PO BID tab 06/07/23 [Rx] predniSONE [Deltasone] 40 mg PO DAILY tab 06/07/23 [Rx] Follow up Appointment(s)/Referral(s): Jamie Balderas DO [Primary Care Provider] - 1 Week Rowdy Lundberg MD [STAFF PHYSICIAN] - 4 Weeks Discharge Disposition: TRANSFER TO SNF/F Plan of Treatment: Continue oral Bactrim for at least 7 days. Patient is now off IV antibiotics Continue bronchodilators Continue tapering the prednisone on outpatient basis, patient is on prednisone presently at 40 mg daily
[2023-06-07 14:45] VITALS: BP 99/48; PULSE 73
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
== END 2023-06-07 15:35 | DRG 177 ==
LOC: EC 10:23 → 3SCARD 13:36
PROVIDERS: ADMIT Family Medicine; ATTEND Family Medicine
DX: J15.69 Pneumonia due to other Gram-negative bacteria (principal); J96.21 Acute and chronic respiratory failure with hypoxia; J96.22 Acute and chronic respiratory failure with hypercapnia; B37.89 Other sites of candidiasis; B37.0 Candidal stomatitis; E87.1 Hypo-osmolality and hyponatremia; M96.842 Postprocedural seroma of a musculoskeletal structure following a musculoskeletal system procedure; J44.0 Chronic obstructive pulmonary disease with (acute) lower respiratory infection; J44.1 Chronic obstructive pulmonary disease with (acute) exacerbation; Y95 Nosocomial condition; Z28.310 Unvaccinated for COVID-19; E78.5 Hyperlipidemia, unspecified; D64.9 Anemia, unspecified; I10 Essential (primary) hypertension; I25.10 Atherosclerotic heart disease of native coronary artery without angina pectoris; K57.30 Diverticulosis of large intestine without perforation or abscess without bleeding; N50.89 Other specified disorders of the male genital organs; K44.9 Diaphragmatic hernia without obstruction or gangrene; S42.201D Unspecified fracture of upper end of right humerus, subsequent encounter for fracture with routine healing; S82.831D Other fracture of upper and lower end of right fibula, subsequent encounter for closed fracture with routine healing; H91.90 Unspecified hearing loss, unspecified ear; K80.20 Calculus of gallbladder without cholecystitis without obstruction; K21.9 Gastro-esophageal reflux disease without esophagitis; N20.0 Calculus of kidney; N40.1 Benign prostatic hyperplasia with lower urinary tract symptoms; R33.8 Other retention of urine; K59.00 Constipation, unspecified; M25.511 Pain in right shoulder; R59.0 Localized enlarged lymph nodes; F17.210 Nicotine dependence, cigarettes, uncomplicated; Z71.6 Tobacco abuse counseling; Z79.82 Long term (current) use of aspirin; Z79.51 Long term (current) use of inhaled steroids; Z79.899 Other long term (current) drug therapy; Z87.442 Personal history of urinary calculi; Z92.3 Personal history of irradiation; Z96.641 Presence of right artificial hip joint; Z85.21 Personal history of malignant neoplasm of larynx; Z88.5 Allergy status to narcotic agent; Z88.0 Allergy status to penicillin; Z88.8 Allergy status to other drugs, medicaments and biological substances
CPT/HCPCS: 36415; 36600; 71045; 71046; 71275; 73501; 74177; 80048; 80051; 80053; 80202; 81003; 82565; 82805; 83605; 83735; 83880; 84145; 84484; 85025; 85027; 85379; 85610; 85730; 87040; 87070; 87205; 87449; 87636; 93005; 94640; 94644; 94760; 96361; 96365; 96366; 96375; 96376; 99285

== ENCOUNTER 2023-06-23 19:40 | Inpatient (IN) | payer MEDICARE, OTHER ==
[2023-06-23] MEDS ORDERED: SODIUM CHLORIDE 0.9% 1,000 ML IV STA ×2 (19:43→20:51)
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
[2023-06-23] MEDS ORDERED: IBUPROFEN IV 800 MG in SODIUM CHLORIDE 0.9% 250 ML IV ONE (20:04)
[2023-06-23] MEDS ORDERED: IPRATROPIUM-ALBUTEROL 3 ML NEB INHALATION STA ×2 (20:04→21:37)
[2023-06-23 20:10] LABS: Basophils # (A) 0.1 k/uL (0-0.2); Basophils % (A) 1 %; Eosinophils # (A) 0.1 k/uL (0-0.7); Eosinophils % (A) 2 %; HCT 27.8 % (39.0-53.0); HGB 9.5 gm/dL (13.0-17.5); Lymphocytes # (A) 0.4 k/uL (1.0-4.8); Lymphocytes % (A) 5 %; MCH 30.5 pg (25.0-35.0); MCHC 34.3 g/dL (31.0-37.0); MCV 89.1 fL (80.0-100.0); Mean Platelet Volume 7.2; Monocytes # (A) 0.5 k/uL (0-1.0); Monocytes % (A) 8 %; Neutrophils # (A) 5.2 k/uL (1.3-7.7); Neutrophils % (A) 81 %; Platelet Count 294 k/uL (150-450); RBC 3.11 m/uL (4.30-5.90); RDW 15.8 % (11.5-15.5); WBC 6.4 k/uL (3.8-10.6)
[2023-06-23 20:31] LABS: Prothrombin Time 10.7 sec (10.0-12.5)
[2023-06-23 20:50] LABS: ALT 24 U/L (4-49); AST 19 U/L (17-59); African American GFR (CKD) >90 (>60 ml/min/1.73 sqM); Albumin 2.9 g/dL (3.5-5.0); Alkaline Phosphatase 68 U/L (38-126); Anion Gap 3 mmol/L; Blood Urea Nitrogen 17 mg/dL (9-20); Calcium 7.7 mg/dL (8.4-10.2); Carbon Dioxide 26 mmol/L (22-30); Chloride 97 mmol/L (98-107); Glucose 96 mg/dL (74-99); Magnesium 1.8 mg/dL (1.6-2.3); Non-African American GFR(CKD) >90 (>60 ml/min/1.73 sqM); Potassium 4.9 mmol/L (3.5-5.1); Sodium 126 mmol/L (137-145); Total Bilirubin 0.5 mg/dL (0.2-1.3); Total Protein 5.3 g/dL (6.3-8.2)
[2023-06-23] MEDS ORDERED: SODIUM CHLORIDE 0.9% 500 ML 500 ML IV STA (20:51)
[2023-06-23 20:56] LABS: NT-Pro-B-Type Natriuretic Pept 299 pg/mL
[2023-06-23] MEDS ORDERED: LEVOFLOXACIN 750MG-D5W PMX 750 MG in DEXTROSE/WATER 1 150ML.BAG IVPB STA (21:37)
[2023-06-23] MEDS ORDERED: NALOXONE 0.4 MG/ML 1 ML VIAL IV PRN (21:37)
[2023-06-23] MEDS ORDERED: PNEUMONIA PROTOCOL UTILIZED 1 EACH MISC PO PRN (21:37)
[2023-06-23] MEDS ORDERED: VANCOMYCIN IV PER PHARMACY 1 EACH MISC MISCELLANE PRN (21:40)
[2023-06-23] MEDS ORDERED: SODIUM CHLORIDE 0.9% 1,000 ML IV ONE ×2 (22:27→22:31)
[2023-06-23] MEDS ORDERED: HYDROCORTISONE SUCCINATE 100 MG/2 ML VIAL IV STA (22:31)
[2023-06-23] MEDS ORDERED: methylPREDNISolone SOD SUCCI 125 MG/2 ML VIAL IV STA (22:31)
[2023-06-23] MEDS ORDERED: VANCOMYCIN 1,500 MG in SODIUM CHLORIDE 0.9% 500 ML 500 ML IVPB ONE (23:00)
[2023-06-23] MEDS ORDERED: ACETAMINOPHEN IV (For NPO) 1,000 MG in EMPTY BAG 1 BAG IVPB STA (23:57)
--- NOTE | 2023-06-24 01:35 | XR ---
EXAM: XR chest 1V portable CLINICAL INDICATION:Male, 72 years old with history of cp; [facility] COMPARISON: None. TECHNIQUE: Chest single view. FINDINGS: Lines/tubes/devices: None. Cardiomediastinum: Cardiac silhouette appears mildly enlarged. Atherosclerotic calcifications of the mildly tortuous aorta. Mediastinal silhouette otherwise unremar kable. Vasculature: No increased pulmonary vasculature. Lungs/pleura: Lungs appear hyperinflated with interstitial coarsening, findings suggestive of COPD/emphysema. Bibas ilar airspace opacities. Suspect small left effusion. No pneumothorax. Bones/soft tissues: Bony thorax appears grossly intact as seen. Regional soft tissues appear unremarkable. IMPRESSION: Basilar airspace opacities, consider atelectasis and infection. Possible small left pleural effusion.
[2023-06-24] MEDS: methylPREDNISolone SOD SUCCI 125 MG/2 ML VIAL IV SCH ×4 (04:33→23:34)
[2023-06-24] MEDS ORDERED: ALBUTEROL NEBULIZED 2.5 MG/3 ML INHALATION SCH (08:00)
--- NOTE | 2023-06-24 08:11 | XR ---
EXAMINATION TYPE: XR chest 1V portable DATE OF EXAM: 06/24/2023 COMPARISON: 06/23/2023 INDICATION: Pneumonia TECHNIQUE: Single frontal view of the chest is obtained. FINDINGS: The heart size is normal. The pulmonary vasculature is normal. Right lower lobe consolidation with ill-defined borders is present. This has worsened from the compar delgado. Correlate for pneumonia. Atelectasis could be within the differential. Follow-up to clearing is recommended. There may be some subsegmental atelectasis at the left base. Early pneumonia is not excluded. IMPRESSION: 1. Right lower lobe infiltrate and consolidation. Correlate for pneumonia. 2. Mild left basilar atelectasis
[2023-06-24 09:01] LABS: Basophils % (A) 1 %; Eosinophils % (A) 0 %; HCT 25.8 % (39.0-53.0); HGB 8.6 gm/dL (13.0-17.5); Lymphocytes # (A) 0.1 k/uL (1.0-4.8); Lymphocytes % (A) 3 %; MCH 30.7 pg (25.0-35.0); MCHC 33.2 g/dL (31.0-37.0); MCV 92.4 fL (80.0-100.0); Mean Platelet Volume 7.6; Monocytes # (A) 0.1 k/uL (0-1.0); Monocytes % (A) 3 %; Neutrophils # (A) 3.7 k/uL (1.3-7.7); Neutrophils % (A) 92 %; Platelet Count 277 k/uL (150-450); RBC 2.79 m/uL (4.30-5.90); RDW 15.7 % (11.5-15.5)
[2023-06-24 09:14] LABS: ALT 22 U/L (4-49); AST 24 U/L (17-59); African American GFR (CKD) >90 (>60 ml/min/1.73 sqM); Albumin 2.5 g/dL (3.5-5.0); Alkaline Phosphatase 48 U/L (38-126); Anion Gap 5 mmol/L; Blood Urea Nitrogen 15 mg/dL (9-20); Carbon Dioxide 21 mmol/L (22-30); Chloride 108 mmol/L (98-107); Glucose 154 mg/dL (74-99); Non-African American GFR(CKD) >90 (>60 ml/min/1.73 sqM); Phosphorus 3.6 mg/dL (2.5-4.5); Sodium 134 mmol/L (137-145); Total Bilirubin 0.4 mg/dL (0.2-1.3); Total Protein 4.9 g/dL (6.3-8.2)
[2023-06-24 09:27] LABS: Potassium 5.1 mmol/L (3.5-5.1)
[2023-06-24 09:28] LABS: Magnesium 1.8 mg/dL (1.6-2.3)
[2023-06-24] MEDS: VANCOMYCIN 1,500 MG in SODIUM CHLORIDE 0.9% 500 ML 500 ML IVPB SCH ×2 (11:25→23:23)
[2023-06-24] MEDS: IPRATROPIUM-ALBUTEROL 3 ML NEB INHALATION SCH ×3 (11:49→20:34)
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
[2023-06-24] MEDS ORDERED: DEXTROSE 50% SYRINGE 50 ML IVP PRN ×2 (15:18)
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
[2023-06-24] MEDS: FUROSEMIDE 40 MG TAB PO SCH (16:27)
[2023-06-24] MEDS: METOPROLOL SUCCINATE (ER) 25 MG TAB.ER.24H PO SCH (16:27)
[2023-06-24] MEDS: PANTOPRAZOLE 40 MG/10 ML VIAL IVP SCH (16:28)
[2023-06-24 17:11] LABS: Glucose,Whole Blood 166 mg/dL (70-110)
[2023-06-24] MEDS: INSULIN ASPART (NovoLOG) 100 UNIT/ML VIAL SQ SCH ×2 (17:15→21:15)
[2023-06-24 20:25] LABS: Glucose,Whole Blood 191 mg/dL (70-110)
[2023-06-24] MEDS: FORMOTEROL FUMARATE 20 MCG/2 ML NEBU INHALATION SCH (20:34)
[2023-06-24] MEDS: BUDESONIDE 1 MG/2 ML NEBU INHALATION SCH (20:34)
[2023-06-24] MEDS: TAMSULOSIN 0.4 MG CAP.ER.24H PO SCH (21:13)
[2023-06-24] MEDS: ACETAMINOPHEN TAB 325 MG TAB PO PRN (21:13)
[2023-06-24] MEDS: DOCUSATE 100 MG CAP PO SCH (21:13)
[2023-06-24] MEDS: SENNOSIDES-DOCUSATE SODIUM 1 EACH TAB PO SCH (21:15)
[2023-06-24] MEDS: LEVOFLOXACIN 750MG-D5W PMX 750 MG in DEXTROSE/WATER 1 150ML.BAG IVPB SCH (23:12)
[2023-06-25] MEDS: guaiFENesin-DM 600/30MG 1 EACH TAB.ER.12H PO SCH ×3 (00:03→20:29)
[2023-06-25] MEDS: IPRATROPIUM-ALBUTEROL 3 ML NEB INHALATION PRN ×3 (00:20→23:51)
[2023-06-25] MEDS: ACETAMINOPHEN TAB 325 MG TAB PO PRN ×4 (03:45→23:33)
[2023-06-25 05:58] LABS: Glucose,Whole Blood 163 mg/dL (70-110)
[2023-06-25] MEDS: INSULIN ASPART (NovoLOG) 100 UNIT/ML VIAL SQ SCH ×4 (06:30→20:29)
[2023-06-25] MEDS: methylPREDNISolone SOD SUCCI 125 MG/2 ML VIAL IV SCH ×4 (06:30→23:29)
[2023-06-25 07:40] LABS: HCT 23.9 % (39.0-53.0); HGB 7.9 gm/dL (13.0-17.5); Mean Platelet Volume 7.6; Platelet Count 280 k/uL (150-450); RBC 2.63 m/uL (4.30-5.90); RDW 15.6 % (11.5-15.5); WBC 6.8 k/uL (3.8-10.6)
[2023-06-25 07:49] LABS: African American GFR (CKD) >90 (>60 ml/min/1.73 sqM); Anion Gap 4 mmol/L; Blood Urea Nitrogen 16 mg/dL (9-20); Calcium 7.3 mg/dL (8.4-10.2); Carbon Dioxide 23 mmol/L (22-30); Chloride 103 mmol/L (98-107); Glucose 140 mg/dL (74-99); Magnesium 1.8 mg/dL (1.6-2.3); Non-African American GFR(CKD) >90 (>60 ml/min/1.73 sqM); Potassium 3.6 mmol/L (3.5-5.1); Sodium 130 mmol/L (137-145)
[2023-06-25] MEDS: SENNOSIDES-DOCUSATE SODIUM 1 EACH TAB PO SCH ×2 (09:10→20:28)
[2023-06-25] MEDS: PANTOPRAZOLE 40 MG/10 ML VIAL IVP SCH (09:10)
[2023-06-25] MEDS: FUROSEMIDE 40 MG TAB PO SCH (09:10)
[2023-06-25] MEDS: METOPROLOL SUCCINATE (ER) 25 MG TAB.ER.24H PO SCH (09:10)
[2023-06-25] MEDS: BUDESONIDE 1 MG/2 ML NEBU INHALATION SCH ×2 (09:15→20:41)
[2023-06-25] MEDS: FORMOTEROL FUMARATE 20 MCG/2 ML NEBU INHALATION SCH ×2 (09:15→20:41)
[2023-06-25] MEDS: IPRATROPIUM-ALBUTEROL 3 ML NEB INHALATION SCH ×4 (09:15→20:41)
[2023-06-25 11:24] LABS: Glucose,Whole Blood 140 mg/dL (70-110)
[2023-06-25] MEDS: VANCOMYCIN 1,500 MG in SODIUM CHLORIDE 0.9% 500 ML 500 ML IVPB SCH ×2 (11:48→23:29)
--- NOTE | 2023-06-25 12:56 | P.PN ---
Subjective Progress Note Date: 06/25/23 H&P Date: 06/24/23 Chief Complaint: Dyspnea This is a 72-year-old male, currently residing at subacute rehab-scheduled to finish up this week, history of coronary artery disease, COPD, hypertension, hyperlipidemia, chronic hypoxic/hypercapnic respiratory failure, patient uses O2 at 2 L per nasal cannula, presented to the ER for difficulty breathing. Reports he was watching the game on TV yesterday and developed increased persistent shortness of breath, improved after receiving a breathing treatment per EMS. Reported high recent fever per ER, EMS sheets currently not available. On admission, tachypneic on a nonrebreather, weaned down to 5 L nasal cannula, maintaining O2 sats in the low 90s. Soft blood pressures throughout the night, improved this morning. Chest x-ray reported basilar airspace opacity consider atelectasis and infection, possible small left pleural effusion. P chest x-ray reported right lower lobe infiltrate and consolidation, correlate for pneumonia, mild left basilar atelectasis. Afebrile, normal WBC, lactic acid 0.6. Pro- calcitonin pending.Hemoglobin 8.6, platelets 277. Sodium 134, potassium 5.1, chloride 108, bicarb 21, BUN 15, creatinine 0.57. Blood sugars controlled. Magnesium 1.8. Blood and sputum cultures collected. Received IV fluids, vancomycin, Levaquin, IV steroids and nebulized bronchodilators. 06/25/2023 maintained on nebulized bronchodilators, IV steroids, vancomycin, Levaquin, Mucinex with breathing improved. Renal function stable ,maintaining O2 sats in the 90s on 4 L nasal cannula. reports nonproductive cough, mild shortness of breath. Afebrile, normal WBC. Blood sugars controlled. Sodium 130. Objective - Vital Signs Vital signs: Vital Signs Temp 97.3 F L 06/25/23 08:00 Pulse 88 06/25/23 12:22 Resp 20 06/25/23 11:48 BP 135/73 06/25/23 11:48 Pulse Ox 96 06/25/23 11:48 FiO2 Intake & Output 06/24/23 06/25/23 06/25/23 18:59 06:59 18:59 Intake Total 540 240 Output Total 400 850 Balance 140 -850 240 Weight 72.575 kg Intake: Oral 540 240 Output: Urine 400 850 Other: Voiding Method Urinal - Exam GENERAL: Alert and oriented x3, NAD. HEENT: Normocephalic, atraumatic ,pupils are round and equal, No conjunctival pallor. CARDIOVASCULAR: S1 and S2 present. No murmurs, rubs, or gallops. PULMONARY: Unlabored, equal air entry, scattered rhonchi with fine bibasilar crackles ABDOMEN: Soft, nontender, nondistended, normoactive bowel sounds. No guarding, no rigidity. EXTREMITIES: No cyanosis, clubbing, or pedal edema. NEUROLOGICAL: Gross neurological examination did not reveal any focal deficits. SKIN: No rashes. Warm and dry - Labs CBC & Chem 7: 06/25/23 07:16 06/25/23 07:16 Labs: Abnormal Lab Results - Last 24 Hours (Table) 06/24/23 06/24/23 06/24/23 Range/Units 08:21 17:09 20:17 RBC (4.30-5.90) m/uL Hgb (13.0-17.5) gm/dL Hct (39.0-53.0) % RDW (11.5-15.5) % Sodium (137-145) mmol/L Creatinine (0.66-1.25) mg/dL Glucose (74-99) mg/dL POC Glucose (mg/dL) 166 H 191 H (70-110) mg/dL Calcium (8.4-10.2) mg/dL Procalcitonin 0.10 H (0.02-0.09) ng/mL 06/25/23 06/25/23 06/25/23 Range/Units 05:49 07:16 07:16 RBC 2.63 L (4.30-5.90) m/uL Hgb 7.9 L (13.0-17.5) gm/dL Hct 23.9 L (39.0-53.0) % RDW 15.6 H (11.5-15.5) % Sodium 130 L (137-145) mmol/L Creatinine 0.59 L (0.66-1.25) mg/dL Glucose 140 H (74-99) mg/dL POC Glucose (mg/dL) 163 H (70-110) mg/dL Calcium 7.3 L (8.4-10.2) mg/dL Procalcitonin (0.02-0.09) ng/mL 06/25/23 Range/Units 11:21 RBC (4.30-5.90) m/uL Hgb (13.0-17.5) gm/dL Hct (39.0-53.0) % RDW (11.5-15.5) % Sodium (137-145) mmol/L Creatinine (0.66-1.25) mg/dL Glucose (74-99) mg/dL POC Glucose (mg/dL) 140 H (70-110) mg/dL Calcium (8.4-10.2) mg/dL Procalcitonin (0.02-0.09) ng/mL Microbiology - Last 24 Hours (Table) 06/23/23 20:00 Blood Culture - Preliminary Blood 06/23/23 19:45 Blood Culture - Preliminary Blood 06/24/23 12:03 Gram Stain - Preliminary Sputum Assessment and Plan Assessment: Acute healthcare-acquired bilateral pneumonia in a patient currently residing in a subacute rehab., Acute COPD exacerbation secondary to the above Acute on chronic hypoxic respiratory failure secondary to the above Recent [facility]ilateral basal hospital acquired pneumonia with Serratia marcescens Recent Comminuted right humerus fracture with impacted surgical neck Recent history of hip surgery status post [facility] Gastroesophageal reflux disease Large hiatal hernia Left-sided renal calculus Hyponatremia Chronic anemia Benign prostatic hypertrophy Hypertension Ongoing nicotine dependence History of laryngeal carcinoma, status post radiation treatments. Plan: Continue on current medication regime ,monitoring and symptomatic treatment. Evaluated by pulmonary with recommendations noted and appreciated . Maintain aggressive pulmonary toileting with nebulized bronchodilators, Pulmicort, steroids, IV antibiotics. Increase ambulation as tolerated. Melatonin added to med regimen, patient reporting difficulty sleeping last night-possibly steroid-induced. The impression and plan of care has been dictated as directed. : I performed a history and examination of this patient, discussed the same with the dictator. I agree with the dictator's note ,documented as a scribe. Any additional findings or plans will be noted.
--- NOTE | 2023-06-25 13:56 | P.PN ---
Subjective Progress Note Date: 06/25/23 This is a 72-year-old male patient with severe COPD with an FEV1 that's 34% of predicted. He does use home oxygen at between 3-4 L/m. The patient does continue to smoke cigarettes. He typically is on Symbicort, Ventolin inhaler, and a nebulizer machine. He also has a history of coronary artery disease, laryngeal cancer with previous radiation, autoimmune disease, hearing disorder, hypertension, hyperlipidemia, abdominal aortic aneurysm status post stenting recent fall with fracture and repair of a right hip fracture and had recently been undergoing rehab at [facility] on the [place]. He presented here to the emergency room again yesterday with significant increasing shortness of breath. X-ray reveals basilar airspace opacities and small left pleural effusion. I count 4.0. Hemoglobin 8.6. Pletal its to 77. Sodium 134. Potassium 5.1. Bicarb 21. BUN 15. Creatinine 0.57. Glucose 154. Pro-calcitonin 0.10. He is seen in consultation in the emergency department. Currently sitting up on the stretcher. Awake and alert in no acute distress. Breathing a bit easier today compared to yesterday. He is maintaining O2 saturations in the 90s on 5 L high flow nasal cannula. Afebrile. Hemodynamically stable. The patient is seen today June 25, 2023 in follow-up on the regular medical floor. He is currently sitting up at the bedside. Awake and alert in no acute distress. Feeling better today compared to yesterday. His blood cultures revealed no growth. Sputum cultures revealed no growth thus far. He is maintaining O2 saturation in the 90s on 4 L/min per nasal cannula. He has normal saline at KVO. He is continued on vancomycin and Levaquin for now. Continued on DuoNeb elations, Pulmicort and performing scintillations, Solu- Medrol. Remains on oral diuretics. White count 6.8. Hemoglobin 7.9. Platelets 280. Sodium 130. Potassium 3.6. Bicarb 23. BUN 16. Creatinine 0.59. Glucose 140. Objective - Vital Signs Vital signs: Vital Signs Temp 97.3 F L 06/25/23 08:00 Pulse 88 06/25/23 12:22 Resp 20 06/25/23 11:48 BP 135/73 06/25/23 11:48 Pulse Ox 96 06/25/23 11:48 FiO2 Intake & Output 06/24/23 06/25/23 06/25/23 18:59 06:59 18:59 Intake Total 540 240 Output Total 400 850 Balance 140 -850 240 Weight 72.575 kg Intake: Oral 540 240 Output: Urine 400 850 Other: Voiding Method Urinal - Exam GENERAL EXAM: Alert, 72-year-old male, sitting up in bed, on 4 L nasal cannula, comfortable in no apparent distress. HEAD: Normocephalic. EYES: Normal reaction of pupils, equal size. NOSE: Clear with pink turbinates. THROAT: No erythema or exudates. NECK: No masses, no JVD. CHEST: No chest wall deformity. LUNGS: Equal air entry with bilateral scattered rhonchi, diminished. CVS: S1 and S2 normal with no audible murmur, regular rhythm. ABDOMEN: No hepatosplenomegaly, normal bowel sounds, no guarding or rigidity. SPINE: No scoliosis or deformity SKIN: No rashes CENTRAL NERVOUS SYSTEM: No focal deficits, tone is normal in all 4 extremities. EXTREMITIES: There is no peripheral edema. No clubbing, no cyanosis. Peripheral pulses are intact. - Labs CBC & Chem 7: 06/25/23 07:16 06/25/23 07:16 Labs: Abnormal Lab Results - Last 24 Hours (Table) 06/24/23 06/24/23 06/24/23 Range/Units 08:21 17:09 20:17 RBC (4.30-5.90) m/uL Hgb (13.0-17.5) gm/dL Hct (39.0-53.0) % RDW (11.5-15.5) % Sodium (137-145) mmol/L Creatinine (0.66-1.25) mg/dL Glucose (74-99) mg/dL POC Glucose (mg/dL) 166 H 191 H (70-110) mg/dL Calcium (8.4-10.2) mg/dL Procalcitonin 0.10 H (0.02-0.09) ng/mL 06/25/23 06/25/23 06/25/23 Range/Units 05:49 07:16 07:16 RBC 2.63 L (4.30-5.90) m/uL Hgb 7.9 L (13.0-17.5) gm/dL Hct 23.9 L (39.0-53.0) % RDW 15.6 H (11.5-15.5) % Sodium 130 L (137-145) mmol/L Creatinine 0.59 L (0.66-1.25) mg/dL Glucose 140 H (74-99) mg/dL POC Glucose (mg/dL) 163 H (70-110) mg/dL Calcium 7.3 L (8.4-10.2) mg/dL Procalcitonin (0.02-0.09) ng/mL 06/25/23 Range/Units 11:21 RBC (4.30-5.90) m/uL Hgb (13.0-17.5) gm/dL Hct (39.0-53.0) % RDW (11.5-15.5) % Sodium (137-145) mmol/L Creatinine (0.66-1.25) mg/dL Glucose (74-99) mg/dL POC Glucose (mg/dL) 140 H (70-110) mg/dL Calcium (8.4-10.2) mg/dL Procalcitonin (0.02-0.09) ng/mL Microbiology - Last 24 Hours (Table) 06/23/23 20:00 Blood Culture - Preliminary Blood 06/23/23 19:45 Blood Culture - Preliminary Blood 06/24/23 12:03 Gram Stain - Preliminary Sputum Assessment and Plan Assessment: Acute on chronic hypoxemic respiratory failure secondary to suspected bilateral pneumonia. Pro-calcitonin 0.10. Acute exacerbation of chronic obstructive pulmonary disease secondary to above History of tobacco use History of severe/stage III COPD, with an FEV1 that's 34% of predicted History of hypertension History of laryngeal carcinoma, status post radiation treatments History of gastroesophageal reflux disease Right proximal humeral neck/head fracture History of right hip fracture, status post repair, seroma measuring 28 x 3 cm in size, postsurgical in nature involving the right hip Large hiatal hernia Left sided renal calculus Cholelithiasis without cholecystitis Poor functional performance based on the above mentioned multiple comorbidities Plan: The patient was seen and evaluated Labs and medications reviewed Continue the current treatment plan Titrate the FiO2 as tolerated We will continue to follow I have personally seen and examined the patient, performed the documentation and the assessment and plan as written. Number of minutes spent on the visit: 10.
[2023-06-25 16:36] LABS: Glucose,Whole Blood 166 mg/dL (70-110)
[2023-06-25 20:14] LABS: Glucose,Whole Blood 122 mg/dL (70-110)
[2023-06-25] MEDS: guaiFENesin-Coden 100-10MG/5ML 10 ML CUP PO PRN (20:28)
[2023-06-25] MEDS: MELATONIN 3 MG TABLET PO SCH (20:28)
[2023-06-25] MEDS: TAMSULOSIN 0.4 MG CAP.ER.24H PO SCH (20:29)
[2023-06-25] MEDS: DOCUSATE 100 MG CAP PO SCH (20:29)
[2023-06-25] MEDS: LEVOFLOXACIN 750MG-D5W PMX 750 MG in DEXTROSE/WATER 1 150ML.BAG IVPB SCH (20:29)
[2023-06-26 05:47] LABS: Glucose,Whole Blood 231 mg/dL (70-110)
[2023-06-26] MEDS: methylPREDNISolone SOD SUCCI 125 MG/2 ML VIAL IV SCH ×4 (06:21→23:05)
[2023-06-26] MEDS: ACETAMINOPHEN TAB 325 MG TAB PO PRN ×2 (06:21→22:17)
[2023-06-26] MEDS: INSULIN ASPART (NovoLOG) 100 UNIT/ML VIAL SQ SCH ×4 (06:21→21:58)
[2023-06-26] MEDS: BUDESONIDE 1 MG/2 ML NEBU INHALATION SCH ×2 (08:25→19:44)
[2023-06-26] MEDS: IPRATROPIUM-ALBUTEROL 3 ML NEB INHALATION SCH ×4 (08:25→19:44)
[2023-06-26] MEDS: FORMOTEROL FUMARATE 20 MCG/2 ML NEBU INHALATION SCH ×2 (08:25→19:44)
[2023-06-26] MEDS ORDERED: VANCOMYCIN TROUGH DUE 1 EACH MISC MISCELLANE ONE (10:00)
[2023-06-26] MEDS: FUROSEMIDE 40 MG TAB PO SCH (10:08)
[2023-06-26] MEDS: guaiFENesin-DM 600/30MG 1 EACH TAB.ER.12H PO SCH ×2 (10:08→22:11)
[2023-06-26] MEDS: METOPROLOL SUCCINATE (ER) 25 MG TAB.ER.24H PO SCH (10:09)
[2023-06-26] MEDS: PANTOPRAZOLE 40 MG/10 ML VIAL IVP SCH (10:10)
[2023-06-26] MEDS: guaiFENesin-Coden 100-10MG/5ML 10 ML CUP PO PRN ×2 (10:11→23:30)
[2023-06-26] MEDS: SENNOSIDES-DOCUSATE SODIUM 1 EACH TAB PO SCH ×2 (10:11→22:13)
[2023-06-26 11:21] LABS: African American GFR (CKD) >90 (>60 ml/min/1.73 sqM); Non-African American GFR(CKD) >90 (>60 ml/min/1.73 sqM)
[2023-06-26 11:30] LABS: Glucose,Whole Blood 138 mg/dL (70-110)
--- NOTE | 2023-06-26 13:47 | P.PN ---
Subjective Progress Note Date: 06/26/23 Principal diagnosis: Acute on chronic hypoxic respiratory failure, multifactorial secondary to pneumonia and acute exacerbation of COPD This is a 72-year-old male patient with severe COPD with an FEV1 that's 34% of predicted. He does use home oxygen at between 3-4 L/m. The patient does continue to smoke cigarettes. He typically is on Symbicort, Ventolin inhaler, and a nebulizer machine. He also has a history of coronary artery disease, laryngeal cancer with previous radiation, autoimmune disease, hearing disorder, hypertension, hyperlipidemia, abdominal aortic aneurysm status post stenting recent fall with fracture and repair of a right hip fracture and had recently been undergoing rehab at [facility] on [place]. He presented here to the emergency room again yesterday with significant increasing shortness of breath. X-ray reveals basilar airspace opacities and small left pleural effusion. I count 4.0. Hemoglobin 8.6. Pletal its to 77. Sodium 134. Potassium 5.1. Bicarb 21. BUN 15. Creatinine 0.57. Glucose 154. Pro-calcitonin 0.10. He is seen in consultation in the emergency department. Currently sitting up on the stretcher. Awake and alert in no acute distress. Breathing a bit easier today compared to yesterday. He is maintaining O2 saturations in the 90s on 5 L high flow nasal cannula. Afebrile. Hemodynamically stable. The patient is seen today June 25, 2023 in follow-up on the regular medical floor. He is currently sitting up at the bedside. Awake and alert in no acute distress. Feeling better today compared to yesterday. His blood cultures revealed no growth. Sputum cultures revealed no growth thus far. He is maintaining O2 saturation in the 90s on 4 L/min per nasal cannula. He has normal saline at KVO. He is continued on vancomycin and Levaquin for now. Continued on DuoNeb elations, Pulmicort and performing scintillations, Solu- Medrol. Remains on oral diuretics. White count 6.8. Hemoglobin 7.9. Platelets 280. Sodium 130. Potassium 3.6. Bicarb 23. BUN 16. Creatinine 0.59. Glucose 140. Patient was reevaluated today on 06/26/2023, slightly better, nonetheless continues to cough and wheeze.On 3 L nasal cannula O2 saturation 95%. Sputum cultures have been nondiagnostic, no Staph aureus in the sputum, hence I am recommending we discontinue vancomycin and continue Levaquin Objective - Vital Signs Vital signs: Vital Signs Temp 97.8 F 06/26/23 11:38 Pulse 91 06/26/23 11:38 Resp 22 06/26/23 11:38 BP 146/76 06/26/23 11:38 Pulse Ox 95 06/26/23 11:38 FiO2 Intake & Output 06/25/23 06/26/23 06/26/23 18:59 06:59 18:59 Intake Total 720 Output Total 1025 1250 1275 Balance -305 -1250 -1275 Intake: Oral 720 Output: Urine 1025 250 275 Stool 1000 1000 Other: Voiding Method Urinal Urinal # Bowel Movements 0 - Exam General: 22-year-old white male in no distress, on 3 L nasal cannula Skin: Skin is warm and dry and no rashes or lesions are noted. Eye: Pupils are equal, round and reactive to light, extra-ocular movements are intact; there is normal conjunctiva bilaterally. Ears, nose, mouth and throat: There are moist mucous membranes and no oral lesions. Neck: The neck is supple, there is no tenderness or JVD. Cardiovascular: There is a regular rate and rhythm. No murmur, rub or gallop is appreciated. Respiratory: Rhonchi and wheezes noted bilaterally. Gastrointestinal: Soft, non-distended, non-tender abdomen without masses or organomegaly noted. There is no rebound or guarding present. Bowel sounds are unremarkable. Back: There is no tenderness to palpation in the midline. There is no obvious deformity. Musculoskeletal: Normal ROM, no tenderness, There is no pedal edema. There is n o calf tenderness or swelling. No cords were appreciated. Neurological: CN II-XII intact, Cranial nerves III through XII are intact. Nonfocal. Psychiatric: Cooperative, appropriate mood & affect, normal judgment. - Labs CBC & Chem 7: 06/25/23 07:16 06/26/23 10:06 Labs: Abnormal Lab Results - Last 24 Hours (Table) 06/25/23 06/25/23 06/26/23 Range/Units 16:32 20:06 05:38 POC Glucose (mg/dL) 166 H 122 H 231 H (70-110) mg/dL 06/26/23 Range/Units 11:28 POC Glucose (mg/dL) 138 H (70-110) mg/dL Microbiology - Last 24 Hours (Table) 06/24/23 12:03 Gram Stain - Final Sputum Sputum Culture - Final 06/23/23 20:00 Blood Culture - Preliminary Blood 06/23/23 19:45 Blood Culture - Preliminary Blood Assessment and Plan Assessment: Impression:Acute on chronic hypoxemic respiratory failure secondary to suspected bilateral pneumonia. Pro-calcitonin 0.10. This is likely healthcare acquired pneumonia patient had previous Serratia related pneumonia and pseudomonal pneumonia as well as Klebsiella oxytoca pneumonia, and haemophilus influenza pneumonia, will continue treatment with cefepime for now. Presently on Levaquin and I have discontinued vancomycin Acute exacerbation of chronic obstructive pulmonary disease secondary to above History of tobacco use History of severe/stage III COPD, with an FEV1 that's 34% of predicted History of hypertension History of laryngeal carcinoma, status post radiation treatments History of gastroesophageal reflux disease Right proximal humeral neck/head fracture History of right hip fracture, status post repair, seroma measuring 28 x 3 cm in size, postsurgical in nature involving the right hip Large hiatal hernia Left sided renal calculus Cholelithiasis without cholecystitis Poor functional performance based on the above mentioned multiple comorbidities Recommendations: Discontinue vancomycin Continue Levaquin Titrate oxygen accordingly Continue diuretics Continue bronchodilators including Pulmicort and Perforomist as well as DuoNeb Continue Solu-Medrol for his COPD Continue pantoprazole for GI prophylaxis Will continue to follow
[2023-06-26] MEDS: lisinopriL 20 MG TAB PO SCH ×2 (13:59→22:11)
[2023-06-26] MEDS ORDERED: NITROGLYCERIN SL TABS 0.4 MG TAB SUBLINGUAL PRN (14:03)
--- NOTE | 2023-06-26 15:06 | P.PN ---
Subjective Progress Note Date: 06/26/23 H&P Date: 06/24/23 Chief Complaint: Dyspnea This is a 72-year-old male, currently residing at subacute rehab-scheduled to finish up this week, history of coronary artery disease, COPD, hypertension, hyperlipidemia, chronic hypoxic/hypercapnic respiratory failure, patient uses O2 at 2 L per nasal cannula, presented to the ER for difficulty breathing. Reports he was watching the game on TV yesterday and developed increased persistent shortness of breath, improved after receiving a breathing treatment per EMS. Reported high recent fever per ER, EMS sheets currently not available. On admission, tachypneic on a nonrebreather, weaned down to 5 L nasal cannula, maintaining O2 sats in the low 90s. Soft blood pressures throughout the night, improved this morning. Chest x-ray reported basilar airspace opacity consider atelectasis and infection, possible small left pleural effusion. P chest x-ray reported right lower lobe infiltrate and consolidation, correlate for pneumonia, mild left basilar atelectasis. Afebrile, normal WBC, lactic acid 0.6. Pro- calcitonin pending.Hemoglobin 8.6, platelets 277. Sodium 134, potassium 5.1, chloride 108, bicarb 21, BUN 15, creatinine 0.57. Blood sugars controlled. Magnesium 1.8. Blood and sputum cultures collected. Received IV fluids, vancomycin, Levaquin, IV steroids and nebulized bronchodilators. 06/25/2023 maintained on nebulized bronchodilators, IV steroids, vancomycin, Levaquin, Mucinex with breathing improved. Renal function stable ,maintaining O2 sats in the 90s on 4 L nasal cannula. reports nonproductive cough, mild shortness of breath. Afebrile, normal WBC. Blood sugars controlled. Sodium 130. 06/26/2023 continues on nebulized bronchodilators/Pulmicort/Perforomist, IV steroids, diuretics .Maintaining O2 sats in the 90s on 3 L nasal cannula. Antibiotics further adjusted as per pulmonary with vancomycin discontinued, secondary to sputum cultures not reporting staph aures. Renal function stable. Afebrile. Objective - Vital Signs Vital signs: Vital Signs Temp 97.8 F 06/26/23 11:38 Pulse 91 06/26/23 11:38 Resp 22 06/26/23 11:38 BP 146/76 06/26/23 11:38 Pulse Ox 95 06/26/23 11:38 FiO2 Intake & Output 06/25/23 06/26/23 06/26/23 18:59 06:59 18:59 Intake Total 720 Output Total 1025 1250 1275 Balance -122 -6911 -2759 Intake: Oral 720 Output: Urine 1025 250 275 Stool 1000 1000 Other: Voiding Method Urinal Urinal # Bowel Movements 0 - Exam GENERAL: Alert and oriented x3, NAD. Sitting up in bed. HEENT: Normocephalic, atraumatic ,pupils are round and equal, No conjunctival pallor. CARDIOVASCULAR: S1 and S2 present. No murmurs, rubs, or gallops. PULMONARY: Unlabored, equal air entry, scattered rhonchi with expiratory wheezing ABDOMEN: Soft, nontender, nondistended, normoactive bowel sounds. No guarding, no rigidity. EXTREMITIES: No cyanosis, clubbing, or pedal edema. NEUROLOGICAL: Gross neurological examination did not reveal any focal deficits. SKIN: No rashes. Warm and dry Microbiology 06/24/23 12:03 Sputum Gram Stain - Final 06/24/23 12:03 Sputum Sputum Culture - Final 06/23/23 20:00 Blood Blood Culture - Preliminary 06/23/23 19:45 Blood Blood Culture - Preliminary - Labs CBC & Chem 7: 06/25/23 07:16 06/26/23 10:06 Labs: Abnormal Lab Results - Last 24 Hours (Table) 06/25/23 06/25/23 06/26/23 Range/Units 16:32 20:06 05:38 POC Glucose (mg/dL) 166 H 122 H 231 H (70-110) mg/dL 06/26/23 Range/Units 11:28 POC Glucose (mg/dL) 138 H (70-110) mg/dL Microbiology - Last 24 Hours (Table) 06/24/23 12:03 Gram Stain - Final Sputum Sputum Culture - Final 06/23/23 20:00 Blood Culture - Preliminary Blood 06/23/23 19:45 Blood Culture - Preliminary Blood Assessment and Plan Assessment: Acute healthcare-acquired bilateral pneumonia in a patient currently residing in a subacute rehab., Procalcitonin 0.10. Acute COPD exacerbation secondary to the above Acute on chronic hypoxic respiratory failure secondary to the above Recent Bilateral basal hospital acquired pneumonia with Serratia marcescens Recent Comminuted right humerus fracture with impacted surgical neck Recent history of hip surgery status post [facility] Gastroesophageal reflux disease Large hiatal hernia Left-sided renal calculus Hyponatremia Chronic anemia Benign prostatic hypertrophy Hypertension Ongoing nicotine dependence History of laryngeal carcinoma, status post radiation treatments. Plan: Continue on current medication regime ,monitoring and symptomatic treatment. Antibiotics adjusted as per pulmonary given sputum culture results.Aggressive pulmonary toileting with nebulized bronchodilators, Pulmicort, steroids, IV antibiotics. Increase ambulation as tolerated. The impression and plan of care has been dictated as directed. : I performed a history and examination of this patient, discussed the same with the dictator. I agree with the dictator's note ,documented as a scribe. Any additional findings or plans will be noted.
[2023-06-26 16:47] LABS: Glucose,Whole Blood 137 mg/dL (70-110)
[2023-06-26 20:29] LABS: Glucose,Whole Blood 135 mg/dL (70-110)
[2023-06-26] MEDS: TAMSULOSIN 0.4 MG CAP.ER.24H PO SCH (22:11)
[2023-06-26] MEDS: DOCUSATE 100 MG CAP PO SCH (22:12)
[2023-06-26] MEDS: MELATONIN 3 MG TABLET PO SCH (22:13)
[2023-06-26] MEDS: LEVOFLOXACIN 750MG-D5W PMX 750 MG in DEXTROSE/WATER 1 150ML.BAG IVPB SCH (23:05)
[2023-06-27 03:30] LABS: Basophils % (A) 0 %; Eosinophils % (A) 0 %; HCT 24.8 % (39.0-53.0); HGB 8.6 gm/dL (13.0-17.5); Lymphocytes # (A) 0.2 k/uL (1.0-4.8); Lymphocytes % (A) 2 %; MCH 31.2 pg (25.0-35.0); MCHC 34.5 g/dL (31.0-37.0); MCV 90.3 fL (80.0-100.0); Mean Platelet Volume 7.6; Monocytes # (A) 0.5 k/uL (0-1.0); Monocytes % (A) 6 %; Neutrophils # (A) 7.3 k/uL (1.3-7.7); Neutrophils % (A) 90 %; Platelet Count 248 k/uL (150-450); RBC 2.75 m/uL (4.30-5.90); RDW 15.9 % (11.5-15.5); WBC 8.1 k/uL (3.8-10.6)
[2023-06-27 04:24] LABS: African American GFR (CKD) >90 (>60 ml/min/1.73 sqM); Anion Gap 5 mmol/L; Blood Urea Nitrogen 15 mg/dL (9-20); Calcium 7.8 mg/dL (8.4-10.2); Carbon Dioxide 27 mmol/L (22-30); Chloride 101 mmol/L (98-107); Glucose 112 mg/dL (74-99); Non-African American GFR(CKD) >90 (>60 ml/min/1.73 sqM); Potassium 3.9 mmol/L (3.5-5.1); Sodium 133 mmol/L (137-145)
[2023-06-27] MEDS: methylPREDNISolone SOD SUCCI 125 MG/2 ML VIAL IV SCH ×4 (04:43→22:43)
[2023-06-27 05:55] LABS: Glucose,Whole Blood 124 mg/dL (70-110)
[2023-06-27] MEDS: INSULIN ASPART (NovoLOG) 100 UNIT/ML VIAL SQ SCH ×4 (06:07→20:26)
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
[2023-06-27] MEDS: IPRATROPIUM-ALBUTEROL 3 ML NEB INHALATION SCH ×4 (08:16→20:04)
[2023-06-27] MEDS: FORMOTEROL FUMARATE 20 MCG/2 ML NEBU INHALATION SCH ×2 (08:16→20:04)
[2023-06-27] MEDS: BUDESONIDE 1 MG/2 ML NEBU INHALATION SCH ×2 (08:17→20:04)
[2023-06-27] MEDS: PANTOPRAZOLE 40 MG/10 ML VIAL IVP SCH (08:22)
[2023-06-27] MEDS: SENNOSIDES-DOCUSATE SODIUM 1 EACH TAB PO SCH ×2 (08:22→21:19)
[2023-06-27] MEDS: guaiFENesin-DM 600/30MG 1 EACH TAB.ER.12H PO SCH (08:22)
[2023-06-27] MEDS: FUROSEMIDE 40 MG TAB PO SCH (08:22)
[2023-06-27] MEDS: METOPROLOL SUCCINATE (ER) 25 MG TAB.ER.24H PO SCH (08:22)
[2023-06-27] MEDS: lisinopriL 20 MG TAB PO SCH ×2 (08:22→21:19)
[2023-06-27] MEDS: ACETAMINOPHEN TAB 325 MG TAB PO PRN ×3 (08:26→22:43)
[2023-06-27] MEDS ORDERED: ACETAMINOPHEN IV (For NPO) 1,000 MG in EMPTY BAG 1 BAG IVPB STA (09:40)
[2023-06-27] MEDS: NYSTATIN 100,000 UNIT/ML SUSP 500,000 UNIT/5 ML CUP PO SCH ×4 (10:03→22:43)
[2023-06-27] MEDS ORDERED: MAGNESIUM SULFATE-D5W PMX 1 GM in DEXTROSE/WATER 1 100ML.BAG IVPB ONE (10:30)
[2023-06-27 11:23] LABS: Glucose,Whole Blood 138 mg/dL (70-110)
--- NOTE | 2023-06-27 12:32 | P.PN ---
Subjective Progress Note Date: 06/27/23 H&P Date: 06/24/23 Chief Complaint: Dyspnea This is a 72-year-old male, currently residing at subacute rehab-scheduled to finish up this week, history of coronary artery disease, COPD, hypertension, hyperlipidemia, chronic hypoxic/hypercapnic respiratory failure, patient uses O2 at 2 L per nasal cannula, presented to the ER for difficulty breathing. Reports he was watching the game on TV yesterday and developed increased persistent shortness of breath, improved after receiving a breathing treatment per EMS. Reported high recent fever per ER, EMS sheets currently not available. On admission, tachypneic on a nonrebreather, weaned down to 5 L nasal cannula, maintaining O2 sats in the low 90s. Soft blood pressures throughout the night, improved this morning. Chest x-ray reported basilar airspace opacity consider atelectasis and infection, possible small left pleural effusion. P chest x-ray reported right lower lobe infiltrate and consolidation, correlate for pneumonia, mild left basilar atelectasis. Afebrile, normal WBC, lactic acid 0.6. Pro- calcitonin pending.Hemoglobin 8.6, platelets 277. Sodium 134, potassium 5.1, chloride 108, bicarb 21, BUN 15, creatinine 0.57. Blood sugars controlled. Magnesium 1.8. Blood and sputum cultures collected. Received IV fluids, vancomycin, Levaquin, IV steroids and nebulized bronchodilators. 06/25/2023 maintained on nebulized bronchodilators, IV steroids, vancomycin, Levaquin, Mucinex with breathing improved. Renal function stable ,maintaining O2 sats in the 90s on 4 L nasal cannula. reports nonproductive cough, mild shortness of breath. Afebrile, normal WBC. Blood sugars controlled. Sodium 130. 06/26/2023 continues on nebulized bronchodilators/Pulmicort/Perforomist, IV steroids, diuretics .Maintaining O2 sats in the 90s on 3 L nasal cannula. Antibiotics further adjusted as per pulmonary with vancomycin discontinued, secondary to sputum cultures not reporting staph aures. Renal function stable. Afebrile. 06/27/2024 yesterday afternoon developed sharp midsternal chest pain, nonradiating x 2 lasting up to 7 minutes, accompanied by coughing. Troponins negative x 2, EKG reported sinus with PVCs. evaluated by cardiology this morning with EKG reviewed. No further chest discomfort episodes. Planes of frontal headache, stuffy nose this morning. Maintaining O2 sats in the 90s on 4 L nasal cannula. Afebrile, normal WBC. Objective - Vital Signs Vital signs: Vital Signs Temp 97.9 F 06/27/23 08:08 Pulse 82 06/27/23 08:37 Resp 18 06/27/23 08:37 BP 148/80 06/27/23 08:08 Pulse Ox 91 L 06/27/23 08:17 FiO2 Intake & Output 06/26/23 06/27/23 06/27/23 18:59 06:59 18:59 Intake Total 1080 240 480 Output Total 2300 475 Balance -1220 -235 480 Weight 85 kg Intake: Oral 1080 240 480 Output: Urine 1300 475 Stool 1000 Other: Voiding Method Urinal Urinal Urinal # Bowel Movements 0 1 - Exam GENERAL: Alert and oriented x3, NAD. Sitting up in bed. HEENT: Normocephalic, atraumatic ,pupils are round and equal, No conjunctiva pallor. Oral thrush. CARDIOVASCULAR: S1 and S2 present. Systolic murmur. PULMONARY: Unlabored, equal air entry, congested with mild expiratory wheezing with bilateral bases diminished ABDOMEN: Soft, nontender, nondistended, normoactive bowel sounds. No guarding, no rigidity. EXTREMITIES: No cyanosis, clubbing, or pedal edema. NEUROLOGICAL: Gross neurological examination did not reveal any focal deficits. SKIN: No rashes. Warm and dry - Labs CBC & Chem 7: 06/27/23 02:58 06/27/23 02:54 Labs: Abnormal Lab Results - Last 24 Hours (Table) 06/26/23 06/26/23 06/26/23 Range/Units 11:28 16:46 20:20 RBC (4.30-5.90) m/uL Hgb (13.0-17.5) gm/dL Hct (39.0-53.0) % RDW (11.5-15.5) % Lymphocytes # (1.0-4.8) k/uL Sodium (137-145) mmol/L Glucose (74-99) mg/dL POC Glucose (mg/dL) 138 H 137 H 135 H (70-110) mg/dL Calcium (8.4-10.2) mg/dL 06/27/23 06/27/23 06/27/23 Range/Units 02:54 02:58 05:46 RBC 2.75 L (4.30-5.90) m/uL Hgb 8.6 L (13.0-17.5) gm/dL Hct 24.8 L (39.0-53.0) % RDW 15.9 H (11.5-15.5) % Lymphocytes # 0.2 L (1.0-4.8) k/uL Sodium 133 L (137-145) mmol/L Glucose 112 H (74-99) mg/dL POC Glucose (mg/dL) 124 H (70-110) mg/dL Calcium 7.8 L (8.4-10.2) mg/dL Microbiology - Last 24 Hours (Table) 06/23/23 20:00 Blood Culture - Preliminary Blood 06/23/23 19:45 Blood Culture - Preliminary Blood 06/24/23 12:03 Gram Stain - Final Sputum Sputum Culture - Final Assessment and Plan Assessment: Acute healthcare-acquired bilateral pneumonia in a patient currently residing in a subacute rehab., Procalcitonin 0.10. Acute COPD exacerbation secondary to the above Acute on chronic hypoxic respiratory failure secondary to the above Recent Bilateral basal hospital acquired pneumonia with Serratia marcescens Recent Comminuted right humerus fracture with impacted surgical neck Recent history of hip surgery status post [facility] Gastroesophageal reflux disease Large hiatal hernia Left-sided renal calculus Hyponatremia Chronic anemia Benign prostatic hypertrophy Hypertension Ongoing nicotine dependence History of laryngeal carcinoma, status post radiation treatments. Oral candidiasis Plan: Continue on current medication regime ,monitoring and symptomatic treatment. IV magnesium and Tylenol ordered for headache. nystatin added to med regimen .Aggressive pulmonary toileting with nebulized bronchodilators, Pulmicort, steroids, IV antibiotics. Increase ambulation as tolerated. The impression and plan of care has been dictated as directed. : I performed a history and examination of this patient, discussed the same with the dictator. I agree with the dictator's note ,documented as a scribe. Any additional findings or plans will be noted.
[2023-06-27 16:27] LABS: Glucose,Whole Blood 118 mg/dL (70-110)
--- NOTE | 2023-06-27 16:47 | P.PN ---
Subjective Progress Note Date: 06/27/23 This is a 72-year-old male patient with severe COPD with an FEV1 that's 34% of predicted. He does use home oxygen at between 3-4 L/m. The patient does continue to smoke cigarettes. He typically is on Symbicort, Ventolin inhaler, and a nebulizer machine. He also has a history of coronary artery disease, laryngeal cancer with previous radiation, autoimmune disease, hearing disorder, hypertension, hyperlipidemia, abdominal aortic aneurysm status post stenting recent fall with fracture and repair of a right hip fracture and had recently been undergoing rehab at [facility] [place] the [place]. He presented here to the emergency room again yesterday with significant increasing shortness of breath. X-ray reveals basilar airspace opacities and small left pleural effusion. I count 4.0. Hemoglobin 8.6. Pletal its to 77. Sodium 134. Potassium 5.1. Bicarb 21. BUN 15. Creatinine 0.57. Glucose 154. Pro-calcitonin 0.10. He is seen in consultation in the emergency department. Currently sitting up on the stretcher. Awake and alert in no acute distress. Breathing a bit easier today compared to yesterday. He is maintaining O2 saturations in the 90s on 5 L high flow nasal cannula. Afebrile. Hemodynamically stable. The patient is seen today June 25, 2023 in follow-up on the regular medical floor. He is currently sitting up at the bedside. Awake and alert in no acute distress. Feeling better today compared to yesterday. His blood cultures revealed no growth. Sputum cultures revealed no growth thus far. He is maintaining O2 saturation in the 90s on 4 L/min per nasal cannula. He has normal saline at KVO. He is continued on vancomycin and Levaquin for now. Continued on DuoNeb elations, Pulmicort and performing scintillations, Solu- Medrol. Remains on oral diuretics. White count 6.8. Hemoglobin 7.9. Platelets 280. Sodium 130. Potassium 3.6. Bicarb 23. BUN 16. Creatinine 0.59. Glucose 140. Patient was reevaluated today on 06/26/2023, slightly better, nonetheless co ntinues to cough and wheeze.On 3 L nasal cannula O2 saturation 95%. Sputum cultures have been nondiagnostic, no Staph aureus in the sputum, hence I am recommending we discontinue vancomycin and continue Levaquin The patient is seen today June 27, 2023 in follow-up on the selective care unit. He is currently sitting up in bed. Awake and alert in no acute distress. Feeling better today compared to yesterday. Denies any worsening shortness of breath, cough or congestion. He is maintaining O2 saturations in the 90s on 4 L/min per nasal cannula. Has been afebrile. Hemodynamically stable. Blood cultures revealed no growth. Sputum culture reveals no growth. White count 8.1. Hemoglobin 8.6. Platelets 248. Sodium 133. Potassium 3.9. Bicarb 27. BUN 15. Creatinine 0.76. Glucose 112. Troponins negative x 2. He is currently net -1.4 L balance. He is continued on DuoNeb ventilations, Pulmicort and performing scintillations, Solu-Medrol. Antibiotics in the form of Levaquin. Remains on oral diuretics. Objective - Vital Signs Vital signs: Vital Signs Temp 97.9 F 06/27/23 15:19 Pulse 78 06/27/23 15:53 Resp 18 06/27/23 15:53 BP 110/69 06/27/23 15:19 Pulse Ox 91 L 06/27/23 15:19 FiO2 Intake & Output 06/26/23 06/27/23 06/27/23 18:59 06:59 18:59 Intake Total 1080 240 960 Output Total 2300 475 750 Balance -1220 -235 210 Weight 85 kg Intake: Oral 1080 240 960 Output: Urine 1300 475 750 Stool 1000 Other: Voiding Method Urinal Urinal Urinal # Voids 1 # Bowel Movements 0 1 - Exam GENERAL EXAM: Alert, pleasant 72-year-old male, sitting up in bed, on 4 L nasal cannula, in no apparent distress. HEAD: Normocephalic. EYES: Normal reaction of pupils, equal size. NOSE: Clear with pink turbinates. THROAT: No erythema or exudates. NECK: No masses, no JVD. CHEST: No chest wall deformity. LUNGS: Equal air entry with bilateral scattered rhonchi, diminished. CVS: S1 and S2 normal with no audible murmur, regular rhythm. ABDOMEN: No hepatosplenomegaly, normal bowel sounds, no guarding or rigidity. SPINE: No scoliosis or deformity SKIN: No rashes CENTRAL NERVOUS SYSTEM: No focal deficits, tone is normal in all 4 extremities. EXTREMITIES: There is no peripheral edema. No clubbing, no cyanosis. Peripheral pulses are intact. - Labs CBC & Chem 7: 06/27/23 02:58 06/27/23 02:54 Labs: Abnormal Lab Results - Last 24 Hours (Table) 06/26/23 06/26/23 06/27/23 Range/Units 16:46 20:20 02:54 RBC (4.30-5.90) m/uL Hgb (13.0-17.5) gm/dL Hct (39.0-53.0) % RDW (11.5-15.5) % Lymphocytes # (1.0-4.8) k/uL Sodium 133 L (137-145) mmol/L Glucose 112 H (74-99) mg/dL POC Glucose (mg/dL) 137 H 135 H (70-110) mg/dL Calcium 7.8 L (8.4-10.2) mg/dL 06/27/23 06/27/23 06/27/23 Range/Units 02:58 05:46 11:21 RBC 2.75 L (4.30-5.90) m/uL Hgb 8.6 L (13.0-17.5) gm/dL Hct 24.8 L (39.0-53.0) % RDW 15.9 H (11.5-15.5) % Lymphocytes # 0.2 L (1.0-4.8) k/uL Sodium (137-145) mmol/L Glucose (74-99) mg/dL POC Glucose (mg/dL) 124 H 138 H (70-110) mg/dL Calcium (8.4-10.2) mg/dL 06/27/23 Range/Units 16:25 RBC (4.30-5.90) m/uL Hgb (13.0-17.5) gm/dL Hct (39.0-53.0) % RDW (11.5-15.5) % Lymphocytes # (1.0-4.8) k/uL Sodium (137-145) mmol/L Glucose (74-99) mg/dL POC Glucose (mg/dL) 118 H (70-110) mg/dL Calcium (8.4-10.2) mg/dL Microbiology - Last 24 Hours (Table) 06/23/23 20:00 Blood Culture - Preliminary Blood 06/23/23 19:45 Blood Culture - Preliminary Blood Assessment and Plan Assessment: Acute on chronic hypoxemic respiratory failure secondary to suspected bilateral pneumonia. Pro-calcitonin 0.10. Currently on Levaquin Acute exacerbation of chronic obstructive pulmonary disease secondary to above History of tobacco use History of severe/stage III COPD, with an FEV1 that's 34% of predicted History of hypertension History of laryngeal carcinoma, status post radiation treatments History of gastroesophageal reflux disease Right proximal humeral neck/head fracture History of right hip fracture, status post repair, seroma measuring 28 x 3 cm in size, postsurgical in nature involving the right hip Large hiatal hernia Left sided renal calculus Cholelithiasis without cholecystitis Poor functional performance based on the above mentioned multiple comorbidities Plan: The patient was seen and evaluated Labs and medications reviewed Continue the current treatment plan Titrate the FiO2 as tolerated Plan is for home with his stepson at discharge We will continue to follow I have personally seen and examined the patient, performed the documentation and the assessment and plan as written. Number of minutes spent on the visit: 10.
[2023-06-27 20:16] LABS: Glucose,Whole Blood 117 mg/dL (70-110)
[2023-06-27] MEDS: LEVOFLOXACIN 750MG-D5W PMX 750 MG in DEXTROSE/WATER 1 150ML.BAG IVPB SCH (21:18)
[2023-06-27] MEDS: DOCUSATE 100 MG CAP PO SCH (21:19)
[2023-06-27] MEDS: MELATONIN 3 MG TABLET PO SCH (21:19)
[2023-06-27] MEDS: TAMSULOSIN 0.4 MG CAP.ER.24H PO SCH (21:19)
[2023-06-28] MEDS: methylPREDNISolone SOD SUCCI 125 MG/2 ML VIAL IV SCH ×4 (04:40→22:50)
[2023-06-28 06:19] LABS: Glucose,Whole Blood 119 mg/dL (70-110)
[2023-06-28] MEDS: INSULIN ASPART (NovoLOG) 100 UNIT/ML VIAL SQ SCH ×4 (06:19→22:27)
[2023-06-28] MEDS: FORMOTEROL FUMARATE 20 MCG/2 ML NEBU INHALATION SCH ×2 (07:42→21:58)
[2023-06-28] MEDS: BUDESONIDE 1 MG/2 ML NEBU INHALATION SCH ×2 (07:42→21:57)
[2023-06-28] MEDS: IPRATROPIUM-ALBUTEROL 3 ML NEB INHALATION SCH ×4 (07:42→21:57)
--- NOTE | 2023-06-28 08:46 | XR ---
EXAMINATION TYPE: XR chest 1V portable DATE OF EXAM: 06/28/2023 COMPARISON: 06/24/2023 INDICATION: Pneumonia TECHNIQUE: Single frontal view of the chest is obtained. FINDINGS: The heart size is normal. The pulmonary vasculature is normal. Right lower lobe consolidation has diminished over the interval. Some linear opacities remains presen t. Resolving pneumonia and atelectasis could be considered. Minimal infiltrate may be at the left cos tophrenic angle. IMPRESSION: 1. Resolving right lower lobe infiltrate. Continued follow-up is recommended
[2023-06-28] MEDS: METOPROLOL SUCCINATE (ER) 25 MG TAB.ER.24H PO SCH (09:14)
[2023-06-28] MEDS: NYSTATIN 100,000 UNIT/ML SUSP 500,000 UNIT/5 ML CUP PO SCH ×4 (09:14→22:38)
[2023-06-28] MEDS: PANTOPRAZOLE 40 MG TABLET PO SCH (09:14)
[2023-06-28] MEDS: FUROSEMIDE 40 MG TAB PO SCH (09:15)
[2023-06-28] MEDS: lisinopriL 20 MG TAB PO SCH ×2 (09:15→22:22)
[2023-06-28] MEDS: SENNOSIDES-DOCUSATE SODIUM 1 EACH TAB PO SCH ×2 (09:15→22:26)
[2023-06-28] MEDS: ACETAMINOPHEN TAB 325 MG TAB PO PRN ×2 (09:21→21:15)
--- NOTE | 2023-06-28 09:42 | P.PN ---
Subjective Progress Note Date: 06/28/23 H&P Date: 06/24/23 Chief Complaint: Dyspnea This is a 72-year-old male, currently residing at subacute rehab-scheduled to finish up this week, history of coronary artery disease, COPD, hypertension, hyperlipidemia, chronic hypoxic/hypercapnic respiratory failure, patient uses O2 at 2 L per nasal cannula, presented to the ER for difficulty breathing. Reports he was watching the game on TV yesterday and developed increased persistent shortness of breath, improved after receiving a breathing treatment per EMS. Reported high recent fever per ER, EMS sheets currently not available. On admission, tachypneic on a nonrebreather, weaned down to 5 L nasal cannula, maintaining O2 sats in the low 90s. Soft blood pressures throughout the night, improved this morning. Chest x-ray reported basilar airspace opacity consider atelectasis and infection, possible small left pleural effusion. P chest x-ray reported right lower lobe infiltrate and consolidation, correlate for pneumonia, mild left basilar atelectasis. Afebrile, normal WBC, lactic acid 0.6. Pro- calcitonin pending.Hemoglobin 8.6, platelets 277. Sodium 134, potassium 5.1, chloride 108, bicarb 21, BUN 15, creatinine 0.57. Blood sugars controlled. Magnesium 1.8. Blood and sputum cultures collected. Received IV fluids, vancomycin, Levaquin, IV steroids and nebulized bronchodilators. 06/25/2023 maintained on nebulized bronchodilators, IV steroids, vancomycin, Levaquin, Mucinex with breathing improved. Renal function stable ,maintaining O2 sats in the 90s on 4 L nasal cannula. reports nonproductive cough, mild shortness of breath. Afebrile, normal WBC. Blood sugars controlled. Sodium 130. 06/26/2023 continues on nebulized bronchodilators/Pulmicort/Perforomist, IV steroids, diuretics .Maintaining O2 sats in the 90s on 3 L nasal cannula. Antibiotics further adjusted as per pulmonary with vancomycin discontinued, secondary to sputum cultures not reporting staph aures. Renal function stable. Afebrile. 06/27/2024 yesterday afternoon developed sharp midsternal chest pain, nonradiating x 2 lasting up to 7 minutes, accompanied by coughing. Troponins negative x 2, EKG reported sinus with PVCs. evaluated by cardiology this morning with EKG reviewed. No further chest discomfort episodes. Planes of frontal headache, stuffy nose this morning. Maintaining O2 sats in the 90s on 4 L nasal cannula. Afebrile, normal WBC. 06/28/2024 continues on nebulized bronchodilators, antibiotics. no further headache, complains of ongoing nasal congestion. Denies chest pain, pal pitations or increase shortness of breath. maintaining O2 sats in the low 90s on 4 L nasal cannula. Chest x-ray pending. afebrile Objective - Vital Signs Vital signs: Vital Signs Temp 97.6 F 06/28/23 07:49 Pulse 76 06/28/23 08:07 Resp 18 06/28/23 07:49 BP 148/78 06/28/23 07:49 Pulse Ox 91 L 06/28/23 07:49 FiO2 Intake & Output 06/27/23 06/28/23 06/28/23 18:59 06:59 18:59 Intake Total 1318 Output Total 750 625 Balance 568 -625 Intake: Oral 1318 Output: Urine 750 625 Other: Voiding Method Urinal Urinal # Voids 1 1 # Bowel Movements 1 - Exam GENERAL: Alert and oriented x3, Sitting up in bed, no acute distress. HEENT: Normocephalic, atraumatic ,pupils are round and equal, No conjunctiva pallor. Oral thrush improving. CARDIOVASCULAR: S1 and S2 present. Systolic murmur. PULMONARY: Unlabored, equal air entry, congested with minimal expiratory wheezing with bilateral bases diminished ABDOMEN: Soft, nontender, nondistended, normoactive bowel sounds. No guarding, no rigidity. EXTREMITIES: No cyanosis, clubbing, or pedal edema. NEUROLOGICAL: Cranial nerves II through XII grossly intact. No focal deficits. Strength and sensation grossly intact. SKIN: No rashes. Warm and dry - Labs CBC & Chem 7: 06/27/23 02:58 06/27/23 02:54 Labs: Abnormal Lab Results - Last 24 Hours (Table) 06/27/23 06/27/23 06/27/23 Range/Units 11:21 16:25 20:03 POC Glucose (mg/dL) 138 H 118 H 117 H (70-110) mg/dL 06/28/23 Range/Units 06:15 POC Glucose (mg/dL) 119 H (70-110) mg/dL Assessment and Plan Assessment: Acute healthcare-acquired bilateral pneumonia in a patient currently residing in a subacute rehab., Procalcitonin 0.10. Acute COPD exacerbation secondary to the above Acute on chronic hypoxic respiratory failure secondary to the above Recent Bilateral basal hospital acquired pneumonia with Serratia marcescens Recent Comminuted right humerus fracture with impacted surgical neck Recent history of hip surgery status post [facility] Gastroesophageal reflux disease Large hiatal hernia Left-sided renal calculus Hyponatremia Chronic anemia Benign prostatic hypertrophy Hypertension Ongoing nicotine dependence History of laryngeal carcinoma, status post radiation treatments. Oral candidiasis Plan: Continue on current medication regime ,monitoring and symptomatic treatment. Chest x-ray pending .Flonase ordered for nasal congestion .maintain Aggressive pulmonary toileting with nebulized bronchodilators, Pulmicort, steroids, IV antibiotics. Increase ambulation as tolerated. The impression and plan of care has been dictated as directed. : I performed a history and examination of this patient, discussed the same with the dictator. I agree with the dictator's note ,documented as a scribe. Any additional findings or plans will be noted.
[2023-06-28 11:36] LABS: Glucose,Whole Blood 125 mg/dL (70-110)
[2023-06-28 11:47] VITALS: BMI 26.1
[2023-06-28] MEDS: FLUTICASONE 50MCG/SPRAY NASAL 16GM EA NOSTRIL SCH (11:57)
--- NOTE | 2023-06-28 13:43 | P.PN ---
Subjective HISTORY OF PRESENT ILLNESS: The patient is a 72-year-old male with known history of hyperlipidemia, hypertension, chronic tobacco use and mild CAD by cardiac catheterization in 2016 with preserved systolic function who was admitted to the hospital on June 23 with symptoms of progressive dyspnea, cough and wheezing in addition to fever. He was diagnosed with pneumonia. Cardiology consultation was requested because of an episode of chest discomfort. The patient yesterday had 2 episode of chest discomfort, sharp, worse with deep breathing and coughing. He had an echocardiogram in May following a fall and his ejection fraction was normal. He denies any dizziness or palpitations and continues to be in sinus mechanism. His troponin have been normal. He has not been smoking for the last months, he has been at the assisted. He denies any PND, orthopnea or peripheral edema. He has a history of laryngeal CA and history of abdominal aortic aneurysm stenting and recent right hip fracture and surgery. Medications: Pulmicort, Lasix 40 mg daily, insulin, ipratropium, Zestril 20 mg twice a day, metoprolol succinate 12.5 mg daily, Flomax June 28, 2023 Patient examined at the bedside. Patient denies chest pain or pressure. He reports shortness of breath and frequent coughing. He does report chest pain with deep inspiration. Telemetry reveals sinus mechanism. Blood pressure stable. PHYSICAL EXAM: VITAL SIGNS: Reviewed. GENERAL: Well-developed in no acute distress. NECK: Supple. No JVD or thyromegaly LUNGS: Respirations even and unlabored. Lungs with expiratory wheezing noted. HEART: Regular rate and rhythm. S1 and S2 heard. Systolic murmur noted EXTREMITIES: Normal range of motion. No clubbing or cyanosis. Peripheral pulses intact. No lower extremity edema ASSESSMENT: 1. Worsening dyspnea with exacerbation of COPD and pneumonia 2. Chest discomfort, noncardiac, respirophasic and no evidence of acute coronary syndrome 3. History of mild CAD 4. History of hypertension 5. History of hyperlipidemia 6. History of abdominal aortic aneurysm 7. History of chronic tobacco use, patient has not smoked in 1 months PLAN: Continue current cardiac medications No further inpatient recommendations from a cardiology standpoint We will follow on an as-needed basis. Please call with questions or concerns. Nurse practitioner note has been reviewed by physician. Signing provider agrees with the documented findings, assessment, and plan of care documented by [employer] as a scribe. Objective - Vital Signs Vital signs: Vital Signs Temp 98.6 F 06/28/23 12:00 Pulse 86 06/28/23 12:00 Resp 18 06/28/23 12:00 BP 139/76 06/28/23 12:00 Pulse Ox 91 L 06/28/23 12:00 FiO2 Intake & Output 06/27/23 06/28/23 06/28/23 18:59 06:59 18:59 Intake Total 1318 480 Output Total 750 625 350 Balance 568 -625 130 Weight 85 kg Intake: Oral 1318 480 Output: Urine 750 625 350 Other: Voiding Method Urinal Urinal Urinal # Voids 1 1 # Bowel Movements 1 - Labs CBC & Chem 7: 06/27/23 02:58 06/27/23 02:54 Labs: Abnormal Lab Results - Last 24 Hours (Table) 06/27/23 06/27/23 06/28/23 Range/Units 16:25 20:03 06:15 POC Glucose (mg/dL) 118 H 117 H 119 H (70-110) mg/dL 06/28/23 Range/Units 11:34 POC Glucose (mg/dL) 125 H (70-110) mg/dL
--- NOTE | 2023-06-28 16:13 | P.PN ---
Subjective Progress Note Date: 06/28/23 This is a 72-year-old male patient with severe COPD with an FEV1 that's 34% of predicted. He does use home oxygen at between 3-4 L/m. The patient does continue to smoke cigarettes. He typically is on Symbicort, Ventolin inhaler, and a nebulizer machine. He also has a history of coronary artery disease, laryngeal cancer with previous radiation, autoimmune disease, hearing disorder, hypertension, hyperlipidemia, abdominal aortic aneurysm status post stenting recent fall with fracture and repair of a right hip fracture and had recently been undergoing re[place] at [facility] [place] He presented here to the emergency room again yesterday with significant increasing shortness of breath. X-ray reveals basilar airspace opacities and small left pleural effusion. I count 4.0. Hemoglobin 8.6. Pletal its to 77. Sodium 134. Potassium 5.1. Bicarb 21. BUN 15. Creatinine 0.57. Glucose 154. Pro-calcitonin 0.10. He is seen in consultation in the emergency department. Currently sitting up on the stretcher. Awake and alert in no acute distress. Breathing a bit easier today compared to yesterday. He is maintaining O2 saturations in the 90s on 5 L high flow nasal cannula. Afebrile. Hemodynamically stable. The patient is seen today June 25, 2023 in follow-up on the regular medical floor. He is currently sitting up at the bedside. Awake and alert in no acute distress. Feeling better today compared to yesterday. His blood cultures revealed no growth. Sputum cultures revealed no growth thus far. He is maintaining O2 saturation in the 90s on 4 L/min per nasal cannula. He has normal saline at KVO. He is continued on vancomycin and Levaquin for now. Continued on DuoNeb elations, Pulmicort and performing scintillations, Solu- Medrol. Remains on oral diuretics. White count 6.8. Hemoglobin 7.9. Platelets 280. Sodium 130. Potassium 3.6. Bicarb 23. BUN 16. Creatinine 0.59. Glucose 140. Patient was reevaluated today on 06/26/2023, slightly better, nonetheless co ntinues to cough and wheeze.On 3 L nasal cannula O2 saturation 95%. Sputum cultures have been nondiagnostic, no Staph aureus in the sputum, hence I am recommending we discontinue vancomycin and continue Levaquin The patient is seen today June 27, 2023 in follow-up on the selective care unit. He is currently sitting up in bed. Awake and alert in no acute distress. Feeling better today compared to yesterday. Denies any worsening shortness of breath, cough or congestion. He is maintaining O2 saturations in the 90s on 4 L/min per nasal cannula. Has been afebrile. Hemodynamically stable. Blood cultures revealed no growth. Sputum culture reveals no growth. White count 8.1. Hemoglobin 8.6. Platelets 248. Sodium 133. Potassium 3.9. Bicarb 27. BUN 15. Creatinine 0.76. Glucose 112. Troponins negative x 2. He is currently net -1.4 L balance. He is continued on DuoNeb ventilations, Pulmicort and performing scintillations, Solu-Medrol. Antibiotics in the form of Levaquin. Remains on oral diuretics. The patient is seen today June 28, 2023 and follow-up on the selective care unit. He is awake and alert in no acute distress. Sitting up at the bedside. Denies any worsening shortness of breath, cough or congestion. He does have some sinus congestion. He has some dryness in his throat. His chest x-ray is showing improvement. Resolving a right lower lobe infiltrate. Blood cultures revealed no growth. Sputum culture revealed no growth. Blood sugar 125. He is continued on DuoNeb ventilations, Pulmicort and Perforomist inhalations, Solu- Medrol. Antibiotics in the form of Levaquin. Remains on oral diuretics. Objective - Vital Signs Vital signs: Vital Signs Temp 98.6 F 06/28/23 12:00 Pulse 76 06/28/23 15:49 Resp 18 06/28/23 14:00 BP 139/76 06/28/23 12:00 Pulse Ox 91 L 06/28/23 12:00 FiO2 Intake & Output 06/27/23 06/28/23 06/28/23 18:59 06:59 18:59 Intake Total 1318 720 Output Total 810 357 4399 Balance 393 -884 -547 Weight 85 kg Intake: Oral 1318 720 Output: Urine 529 713 7008 Stool 500 Other: Voiding Method Urinal Urinal Urinal # Voids 1 1 # Bowel Movements 1 - Exam GENERAL EXAM: Alert, pleasant 72-year-old male, on 4 L nasal cannula, comfortable in no apparent distress. HEAD: Normocephalic. EYES: Normal reaction of pupils, equal size. NOSE: Clear with pink turbinates. THROAT: No erythema or exudates. NECK: No masses, no JVD. CHEST: No chest wall deformity. LUNGS: Equal air entry with bilateral scattered rhonchi, diminished. CVS: S1 and S2 normal with no audible murmur, regular rhythm. ABDOMEN: No hepatosplenomegaly, normal bowel sounds, no guarding or rigidity. SPINE: No scoliosis or deformity SKIN: No rashes CENTRAL NERVOUS SYSTEM: No focal deficits, tone is normal in all 4 extremities. EXTREMITIES: There is no peripheral edema. No clubbing, no cyanosis. Peripheral pulses are intact. - Labs CBC & Chem 7: 06/27/23 02:58 06/27/23 02:54 Labs: Abnormal Lab Results - Last 24 Hours (Table) 06/27/23 06/27/23 06/28/23 Range/Units 16:25 20:03 06:15 POC Glucose (mg/dL) 118 H 117 H 119 H (70-110) mg/dL 06/28/23 Range/Units 11:34 POC Glucose (mg/dL) 125 H (70-110) mg/dL Assessment and Plan Assessment: Acute on chronic hypoxemic respiratory failure secondary to suspected bilateral pneumonia. Pro-calcitonin 0.10. Currently on Levaquin. Follow-up chest x-ray showing improvement Acute exacerbation of chronic obstructive pulmonary disease secondary to above History of tobacco use History of severe/stage III COPD, with an FEV1 that's 34% of predicted History of hypertension History of laryngeal carcinoma, status post radiation treatments History of gastroesophageal reflux disease Right proximal humeral neck/head fracture History of right hip fracture, status post repair, seroma measuring 28 x 3 cm in size, postsurgical in nature involving the right hip Large hiatal hernia Left sided renal calculus Cholelithiasis without cholecystitis Poor functional performance based on the above mentioned multiple comorbidities Plan: The patient was seen and evaluated X-ray, labs and medications reviewed Chest x-ray showing improvement Continue the current treatment plan Titrate the FiO2 as tolerated We will continue to follow I have personally seen and examined the patient, performed the documentation and the assessment and plan as written. Number of minutes spent on the visit: 10.
[2023-06-28 20:26] LABS: Glucose,Whole Blood 194 mg/dL (70-110)
[2023-06-28] MEDS: LEVOFLOXACIN 750MG-D5W PMX 750 MG in DEXTROSE/WATER 1 150ML.BAG IVPB SCH (21:00)
[2023-06-28] MEDS: MELATONIN 3 MG TABLET PO SCH (22:22)
[2023-06-28] MEDS: DOCUSATE 100 MG CAP PO SCH (22:22)
[2023-06-28] MEDS: TAMSULOSIN 0.4 MG CAP.ER.24H PO SCH (22:27)
[2023-06-29] MEDS: methylPREDNISolone SOD SUCCI 125 MG/2 ML VIAL IV SCH ×2 (05:58→10:42)
[2023-06-29 06:19] LABS: Glucose,Whole Blood 147 mg/dL (70-110)
[2023-06-29] MEDS: INSULIN ASPART (NovoLOG) 100 UNIT/ML VIAL SQ SCH ×4 (06:20→20:54)
[2023-06-29 07:21] LABS: African American GFR (CKD) >90 (>60 ml/min/1.73 sqM); Anion Gap 0 mmol/L; Blood Urea Nitrogen 27 mg/dL (9-20); Calcium 7.8 mg/dL (8.4-10.2); Carbon Dioxide 33 mmol/L (22-30); Chloride 99 mmol/L (98-107); Glucose 132 mg/dL (74-99); Non-African American GFR(CKD) >90 (>60 ml/min/1.73 sqM); Potassium 4.6 mmol/L (3.5-5.1); Sodium 132 mmol/L (137-145)
[2023-06-29] MEDS: PANTOPRAZOLE 40 MG TABLET PO SCH (08:39)
[2023-06-29] MEDS: lisinopriL 20 MG TAB PO SCH ×2 (08:39→21:10)
[2023-06-29] MEDS: METOPROLOL SUCCINATE (ER) 25 MG TAB.ER.24H PO SCH (08:39)
[2023-06-29] MEDS: FUROSEMIDE 40 MG TAB PO SCH (08:39)
[2023-06-29] MEDS: NYSTATIN 100,000 UNIT/ML SUSP 500,000 UNIT/5 ML CUP PO SCH ×4 (08:39→21:10)
[2023-06-29] MEDS: SENNOSIDES-DOCUSATE SODIUM 1 EACH TAB PO SCH ×2 (08:39→21:10)
[2023-06-29] MEDS: FLUTICASONE 50MCG/SPRAY NASAL 16GM EA NOSTRIL SCH (08:40)
[2023-06-29] MEDS: ACETAMINOPHEN TAB 325 MG TAB PO PRN ×2 (08:43→21:12)
[2023-06-29] MEDS: BUDESONIDE 1 MG/2 ML NEBU INHALATION SCH ×2 (08:52→18:21)
[2023-06-29] MEDS: IPRATROPIUM-ALBUTEROL 3 ML NEB INHALATION SCH ×4 (08:52→18:20)
[2023-06-29] MEDS: FORMOTEROL FUMARATE 20 MCG/2 ML NEBU INHALATION SCH ×2 (08:52→18:20)
[2023-06-29 10:59] LABS: Glucose,Whole Blood 221 mg/dL (70-110)
[2023-06-29 12:04] LABS: Glucose,Whole Blood 215 mg/dL (70-110)
--- NOTE | 2023-06-29 12:12 | P.PN ---
Subjective Progress Note Date: 06/29/23 This is a 72-year-old male patient with severe COPD with an FEV1 that's 34% of predicted. He does use home oxygen at between 3-4 L/m. The patient does continue to smoke cigarettes. He typically is on Symbicort, Ventolin inhaler, and a nebulizer machine. He also has a history of coronary artery disease, laryngeal cancer with previous radiation, autoimmune disease, hearing disorder, hypertension, hyperlipidemia, abdominal aortic aneurysm status post stenting recent fall with fracture and repair of a right hip fracture and had recently been undergoing rehab at [facility] on the [place]. He presented here to the emergency room again yesterday with significant increasing shortness of breath. X-ray reveals basilar airspace opacities and small left pleural effusion. I count 4.0. Hemoglobin 8.6. Pletal its to 77. Sodium 134. Potassium 5.1. Bicarb 21. BUN 15. Creatinine 0.57. Glucose 154. Pro-calcitonin 0.10. He is seen in consultation in the emergency department. Currently sitting up on the stretcher. Awake and alert in no acute distress. Breathing a bit easier today compared to yesterday. He is maintaining O2 saturations in the 90s on 5 L high flow nasal cannula. Afebrile. Hemodynamically stable. The patient is seen today June 25, 2023 in follow-up on the regular medical floor. He is currently sitting up at the bedside. Awake and alert in no acute distress. Feeling better today compared to yesterday. His blood cultures revealed no growth. Sputum cultures revealed no growth thus far. He is maintaining O2 saturation in the 90s on 4 L/min per nasal cannula. He has normal saline at KVO. He is continued on vancomycin and Levaquin for now. Continued on DuoNeb elations, Pulmicort and performing scintillations, Solu- Medrol. Remains on oral diuretics. White count 6.8. Hemoglobin 7.9. Platelets 280. Sodium 130. Potassium 3.6. Bicarb 23. BUN 16. Creatinine 0.59. Glucose 140. Patient was reevaluated today on 06/26/2023, slightly better, nonetheless co ntinues to cough and wheeze.On 3 L nasal cannula O2 saturation 95%. Sputum cultures have been nondiagnostic, no Staph aureus in the sputum, hence I am recommending we discontinue vancomycin and continue Levaquin The patient is seen today June 27, 2023 in follow-up on the selective care unit. He is currently sitting up in bed. Awake and alert in no acute distress. Feeling better today compared to yesterday. Denies any worsening shortness of breath, cough or congestion. He is maintaining O2 saturations in the 90s on 4 L/min per nasal cannula. Has been afebrile. Hemodynamically stable. Blood cultures revealed no growth. Sputum culture reveals no growth. White count 8.1. Hemoglobin 8.6. Platelets 248. Sodium 133. Potassium 3.9. Bicarb 27. BUN 15. Creatinine 0.76. Glucose 112. Troponins negative x 2. He is currently net -1.4 L balance. He is continued on DuoNeb ventilations, Pulmicort and performing scintillations, Solu-Medrol. Antibiotics in the form of Levaquin. Remains on oral diuretics. The patient is seen today June 28, 2023 and follow-up on the selective care unit. He is awake and alert in no acute distress. Sitting up at the bedside. Denies any worsening shortness of breath, cough or congestion. He does have some sinus congestion. He has some dryness in his throat. His chest x-ray is showing improvement. Resolving a right lower lobe infiltrate. Blood cultures revealed no growth. Sputum culture revealed no growth. Blood sugar 125. He is continued on DuoNeb ventilations, Pulmicort and Perforomist inhalations, Solu- Medrol. Antibiotics in the form of Levaquin. Remains on oral diuretics. The patient is seen today June 29, 2023 in follow-up on the regular medical floor. He is sitting up in bed. Awake and alert in no acute distress. He denies any worsening shortness of breath, cough or congestion. He is having some nasal congestion. He is on Flonase. He is continued on DuoNeb elections, Pulmicort and perform scintillations, Solu-Medrol. Remains on oral diuretics. Continued on antibiotics in the form of Levaquin. Sodium 132. Potassium 4.6. Bicarb 33. BUN 27. Creatinine 0.79. Glucose 132. Objective - Vital Signs Vital signs: Vital Signs Temp 97.6 F 06/29/23 07:19 Pulse 80 06/29/23 11:59 Resp 20 06/29/23 07:19 BP 146/83 01/27/24 07:19 Pulse Ox 98 06/29/23 07:19 FiO2 Intake & Output 06/28/23 06/29/23 06/29/23 18:59 06:59 18:59 Intake Total 838 480 618 Output Total 1650 300 Balance -812 180 618 Weight 85 kg Intake: Oral 838 480 618 Output: Urine 1150 300 Stool 500 Other: Voiding Method Urinal Urinal - Exam GENERAL EXAM: Alert, 72-year-old male, on 3 L nasal cannula, comfortable in no apparent distress. HEAD: Normocephalic. EYES: Normal reaction of pupils, equal size. NOSE: Clear with pink turbinates. THROAT: No erythema or exudates. NECK: No masses, no JVD. CHEST: No chest wall deformity. LUNGS: Equal air entry with bilateral scattered rhonchi, diminished. CVS: S1 and S2 normal with no audible murmur, regular rhythm. ABDOMEN: No hepatosplenomegaly, normal bowel sounds, no guarding or rigidity. SPINE: No scoliosis or deformity SKIN: No rashes CENTRAL NERVOUS SYSTEM: No focal deficits, tone is normal in all 4 extremities. EXTREMITIES: There is no peripheral edema. No clubbing, no cyanosis. Peripheral pulses are intact. - Labs CBC & Chem 7: 06/27/23 02:58 06/29/23 05:38 Labs: Abnormal Lab Results - Last 24 Hours (Table) 06/28/23 06/29/23 06/29/23 Range/Units 20:24 05:38 06:18 Sodium 132 L (137-145) mmol/L Carbon Dioxide 33 H (22-30) mmol/L BUN 27 H (9-20) mg/dL Glucose 132 H (74-99) mg/dL POC Glucose (mg/dL) 194 H 147 H (70-110) mg/dL Calcium 7.8 L (8.4-10.2) mg/dL 06/29/23 06/29/23 Range/Units 10:58 12:02 Sodium (137-145) mmol/L Carbon Dioxide (22-30) mmol/L BUN (9-20) mg/dL Glucose (74-99) mg/dL POC Glucose (mg/dL) 221 H 215 H (70-110) mg/dL Calcium (8.4-10.2) mg/dL Microbiology - Last 24 Hours (Table) 06/23/23 20:00 Blood Culture - Final Blood 06/23/23 19:45 Blood Culture - Final Blood Assessment and Plan Assessment: Acute on chronic hypoxemic respiratory failure secondary to suspected bilateral pneumonia. Pro-calcitonin 0.10. Currently on Levaquin. Follow-up chest x-ray showing improvement Acute exacerbation of chronic obstructive pulmonary disease secondary to above History of tobacco use History of severe/stage III COPD, with an FEV1 that's 34% of predicted History of hypertension History of laryngeal carcinoma, status post radiation treatments History of gastroesophageal reflux disease Right proximal humeral neck/head fracture History of right hip fracture, status post repair, seroma measuring 28 x 3 cm in size, postsurgical in nature involving the right hip Large hiatal hernia Left sided renal calculus Cholelithiasis without cholecystitis Poor functional performance based on the above mentioned multiple comorbidities Plan: The patient was seen and evaluated Labs and medications reviewed Cleared for discharge from the pulmonary stand Continue his home pulmonary medications, oxygen Complete a course of antibiotics Complete a prednisone taper Follow-up in the office in 1 week I have personally seen and examined the patient, performed the documentation and the assessment and plan as written. Number of minutes spent on the visit: 10.
[2023-06-29 17:27] LABS: Glucose,Whole Blood 136 mg/dL (70-110)
[2023-06-29] MEDS: guaiFENesin-DM 100-10MG/5ML 10 ML CUP PO SCH ×2 (18:06→23:22)
--- NOTE | 2023-06-29 19:24 | P.PN ---
Subjective This is a 72-year-old male, currently residing at subacute rehab-scheduled to finish up this week, history of coronary artery disease, COPD, hypertension, hyperlipidemia, chronic hypoxic/hypercapnic respiratory failure, patient uses O2 at 2 L per nasal cannula, presented to the ER for difficulty breathing. Reports he was watching the game on TV yesterday and developed increased persistent shortness of breath, improved after receiving a breathing treatment per EMS. Reported high recent fever per ER, EMS sheets currently not available. On adm ission, tachypneic on a nonrebreather, weaned down to 5 L nasal cannula, maintaining O2 sats in the low 90s. Soft blood pressures throughout the night, improved this morning. Chest x-ray reported basilar airspace opacity consider atelectasis and infection, possible small left pleural effusion. P chest x-ray reported right lower lobe infiltrate and consolidation, correlate for pneumonia, mild left basilar atelectasis. Afebrile, normal WBC, lactic acid 0.6. Pro- calcitonin pending.Hemoglobin 8.6, platelets 277. Sodium 134, potassium 5.1, chloride 108, bicarb 21, BUN 15, creatinine 0.57. Blood sugars controlled. Magnesium 1.8. Blood and sputum cultures collected. Received IV fluids, va ncomycin, Levaquin, IV steroids and nebulized bronchodilators. 06/25/2023 maintained on nebulized bronchodilators, IV steroids, vancomycin, Levaquin, Mucinex with breathing improved. Renal function stable ,maintaining O2 sats in the 90s on 4 L nasal cannula. reports nonproductive cough, mild short ness of breath. Afebrile, normal WBC. Blood sugars controlled. Sodium 130. 06/26/2023 continues on nebulized bronchodilators/Pulmicort/Perforomist, IV steroids, diuretics .Maintaining O2 sats in the 90s on 3 L nasal cannula. Antibiotics further adjusted as per pulmonary with vancomycin discontinued, secondary to sputum cultures not reporting staph aures. Renal function stable. Afebrile. 06/27/2024 yesterday afternoon developed sharp midsternal chest pain, nonradiating x 2 lasting up to 7 minutes, accompanied by coughing. Troponins negative x 2, EKG reported sinus with PVCs. evaluated by cardiology this morning with EKG reviewed. No further chest discomfort episodes. Planes of frontal headache, stuffy nose this morning. Maintaining O2 sats in the 90s on 4 L nasal cannula. Afebrile, normal WBC. 06/28/2024 continues on nebulized bronchodilators, antibiotics. no further headache, complains of ongoing nasal congestion. Denies chest pain, palpitations or increase shortness of breath. maintaining O2 sats in the low 90s on 4 L nasal cannula. Chest x-ray pending. afebrile 06/29/2023 This is a pleasant 72 years old male who presents with bilateral pneumonia and COPD exacerbation as well as acute hypoxic respiratory failure Currently he is on 3 L oxygen saturating 90% His on a prednisone 40 mg and Levaquin 750 mg IV Objective - Vital Signs Vital signs: Vital Signs Temp 98.1 F 06/29/23 14:00 Pulse 84 06/29/23 15:31 Resp 21 06/29/23 14:00 BP 110/61 06/29/23 14:00 Pulse Ox 90 L 06/29/23 14:00 FiO2 Intake & Output 06/28/23 06/29/23 06/29/23 18:59 06:59 18:59 Intake Total 838 480 736 Output Total 1650 300 Balance -812 180 736 Weight 85 kg Intake: Oral 838 480 736 Output: Urine 1150 300 Stool 500 Other: Voiding Method Urinal Urinal - Exam GENERAL: The patient is alert and oriented x3, not in any acute distress. Well developed, well nourished. HEENT: Pupils are round and equally reacting to light. EOMI. No scleral icterus. No conjunctival pallor. Normocephalic, atraumatic. No pharyngeal erythema. No thyromegaly. CARDIOVASCULAR: S1 and S2 present. No murmurs, rubs, or gallops. PULMONARY: Chest is clear to auscultation, no wheezing , no crackles. ABDOMEN: Soft, nontender, nondistended, normoactive bowel sounds. No palpable organomegaly. MUSCULOSKELETAL: No joint swelling or deformity. EXTREMITIES: No cyanosis, clubbing, or pedal edema. NEUROLOGICAL: Gross neurological examination did not reveal any focal deficits. SKIN: No rashes. no petechiae. - Labs CBC & Chem 7: 06/27/23 02:58 06/29/23 05:38 Labs: Abnormal Lab Results - Last 24 Hours (Table) 0106/29/23 06/29/23 Range/Units 20:24 05:38 06:18 Sodium 132 L (137-145) mmol/L Carbon Dioxide 33 H (22-30) mmol/L BUN 27 H (9-20) mg/dL Glucose 132 H (74-99) mg/dL POC Glucose (mg/dL) 194 H 147 H (70-110) mg/dL Calcium 7.8 L (8.4-10.2) mg/dL 06/29/23 06/29/23 Range/Units 10:58 12:02 Sodium (137-145) mmol/L Carbon Dioxide (22-30) mmol/L BUN (9-20) mg/dL Glucose (74-99) mg/dL POC Glucose (mg/dL) 221 H 215 H (70-110) mg/dL Calcium (8.4-10.2) mg/dL Microbiology - Last 24 Hours (Table) 06/23/23 20:00 Blood Culture - Final Blood 06/23/23 19:45 Blood Culture - Final Blood Assessment and Plan Assessment: Acute healthcare-acquired bilateral pneumonia in a patient currently residing in a subacute rehab., Procalcitonin 0.10. Acute COPD exacerbation secondary to the above Acute on chronic hypoxic respiratory failure secondary to the above Recent [facility]ilateral [facility] hospital acquired pneumonia with Serratia marcescens Recent Comminuted right humerus fracture with impacted surgical neck Recent history of hip surgery status post [facility] Gastroesophageal reflux disease Large hiatal hernia Left-sided renal calculus Hyponatremia Chronic anemia Benign prostatic hypertrophy Hypertension Ongoing nicotine dependence History of laryngeal carcinoma, status post radiation treatments. Oral candidiasis Plan: Continue with prednisone 40 mg Continue with IV Levaquin Pulmonary consult Labs and medication were reviewed.. Continue same treatment. Continue with symptomatic treatment. Resume home medication. Monitor labs and vitals. DVT and GI prophylaxis. Further recommendations as per clinical course of the pat ient DVT prophylaxis: Subcutaneous heparin GI Prophylaxis: Pepcid
[2023-06-29 20:44] LABS: Glucose,Whole Blood 127 mg/dL (70-110)
[2023-06-29] MEDS: IPRATROPIUM-ALBUTEROL 3 ML NEB INHALATION PRN (20:45)
[2023-06-29] MEDS: LEVOFLOXACIN 750MG-D5W PMX 750 MG in DEXTROSE/WATER 1 150ML.BAG IVPB SCH (21:10)
[2023-06-29] MEDS: TAMSULOSIN 0.4 MG CAP.ER.24H PO SCH (21:10)
[2023-06-29] MEDS: DOCUSATE 100 MG CAP PO SCH (21:10)
[2023-06-29] MEDS: HEPARIN SODIUM,PORCINE 5,000 UNIT/ML 1 ML VIAL SQ SCH (21:11)
[2023-06-29] MEDS: MELATONIN 3 MG TABLET PO SCH (21:24)
[2023-06-29] MEDS: guaiFENesin-Coden 100-10MG/5ML 10 ML CUP PO PRN (23:14)
[2023-06-30 06:29] LABS: Glucose,Whole Blood 99 mg/dL (70-110)
[2023-06-30] MEDS: INSULIN ASPART (NovoLOG) 100 UNIT/ML VIAL SQ SCH ×4 (06:31→20:23)
[2023-06-30] MEDS: NYSTATIN 100,000 UNIT/ML SUSP 500,000 UNIT/5 ML CUP PO SCH ×4 (06:33→20:48)
[2023-06-30] MEDS: guaiFENesin-DM 100-10MG/5ML 10 ML CUP PO SCH ×3 (06:38→17:43)
[2023-06-30] MEDS: HEPARIN SODIUM,PORCINE 5,000 UNIT/ML 1 ML VIAL SQ SCH ×2 (08:58→20:49)
[2023-06-30] MEDS: FUROSEMIDE 40 MG TAB PO SCH (08:58)
[2023-06-30] MEDS: SENNOSIDES-DOCUSATE SODIUM 1 EACH TAB PO SCH ×2 (08:58→20:49)
[2023-06-30] MEDS: PANTOPRAZOLE 40 MG TABLET PO SCH (08:58)
[2023-06-30] MEDS: METOPROLOL SUCCINATE (ER) 25 MG TAB.ER.24H PO SCH (08:58)
[2023-06-30] MEDS: predniSONE 20 MG TAB PO SCH (08:58)
[2023-06-30] MEDS: lisinopriL 20 MG TAB PO SCH ×2 (08:58→20:49)
[2023-06-30] MEDS: ACETAMINOPHEN TAB 325 MG TAB PO PRN ×2 (08:59→20:51)
[2023-06-30] MEDS: BUDESONIDE 1 MG/2 ML NEBU INHALATION SCH ×2 (09:00→19:39)
[2023-06-30] MEDS: IPRATROPIUM-ALBUTEROL 3 ML NEB INHALATION SCH ×4 (09:00→19:39)
[2023-06-30] MEDS: FLUTICASONE 50MCG/SPRAY NASAL 16GM EA NOSTRIL SCH (09:00)
[2023-06-30] MEDS: FORMOTEROL FUMARATE 20 MCG/2 ML NEBU INHALATION SCH ×2 (09:00→19:39)
[2023-06-30 10:43] LABS: Blood Urea Nitrogen 19.6 mg/dL (9.0-27.0); Calcium 7.6 mg/dL (8.7-10.3); Carbon Dioxide 32.6 mmol/L (21.6-31.8); Chloride 96 mmol/L (96-109); Glucose 83 mg/dL (70-110); Potassium 3.9 mmol/L (3.5-5.5); Sodium 135 mmol/L (135-145)
--- NOTE | 2023-06-30 12:06 | P.PN ---
Subjective Progress Note Date: 06/30/23 This is a 72-year-old male patient with severe COPD with an FEV1 that's 34% of predicted. He does use home oxygen at between 3-4 L/m. The patient does continue to smoke cigarettes. He typically is on Symbicort, Ventolin inhaler, and a nebulizer machine. He also has a history of coronary artery disease, laryngeal cancer with previous radiation, autoimmune disease, hearing disorder, hypertension, hyperlipidemia, abdominal aortic aneurysm status post stenting recent fall with fracture and repair of a right hip fracture and had recently been undergoing rehab at [facility] on the [place]. He presented here to the emergency room again yesterday with significant increasing shortness of breath. X-ray reveals basilar airspace opacities and small left pleural effusion. I count 4.0. Hemoglobin 8.6. Pletal its to 77. Sodium 134. Potassium 5.1. Bicarb 21. BUN 15. Creatinine 0.57. Glucose 154. Pro-calcitonin 0.10. He is seen in consultation in the emergency department. Currently sitting up on the stretcher. Awake and alert in no acute distress. Breathing a bit easier today compared to yesterday. He is maintaining O2 saturations in the 90s on 5 L high flow nasal cannula. Afebrile. Hemodynamically stable. The patient is seen today June 25, 2023 in follow-up on the regular medical floor. He is currently sitting up at the bedside. Awake and alert in no acute distress. Feeling better today compared to yesterday. His blood cultures revealed no growth. Sputum cultures revealed no growth thus far. He is maintaining O2 saturation in the 90s on 4 L/min per nasal cannula. He has normal saline at KVO. He is continued on vancomycin and Levaquin for now. Continued on DuoNeb elations, Pulmicort and performing scintillations, Solu- Medrol. Remains on oral diuretics. White count 6.8. Hemoglobin 7.9. Platelets 280. Sodium 130. Potassium 3.6. Bicarb 23. BUN 16. Creatinine 0.59. Glucose 140. Patient was reevaluated today on 06/26/2023, slightly better, nonetheless co ntinues to cough and wheeze.On 3 L nasal cannula O2 saturation 95%. Sputum cultures have been nondiagnostic, no Staph aureus in the sputum, hence I am recommending we discontinue vancomycin and continue Levaquin The patient is seen today June 27, 2023 in follow-up on the selective care unit. He is currently sitting up in bed. Awake and alert in no acute distress. Feeling better today compared to yesterday. Denies any worsening shortness of breath, cough or congestion. He is maintaining O2 saturations in the 90s on 4 L/min per nasal cannula. Has been afebrile. Hemodynamically stable. Blood cultures revealed no growth. Sputum culture reveals no growth. White count 8.1. Hemoglobin 8.6. Platelets 248. Sodium 133. Potassium 3.9. Bicarb 27. BUN 15. Creatinine 0.76. Glucose 112. Troponins negative x 2. He is currently net -1.4 L balance. He is continued on DuoNeb ventilations, Pulmicort and performing scintillations, Solu-Medrol. Antibiotics in the form of Levaquin. Remains on oral diuretics. The patient is seen today June 28, 2023 and follow-up on the selective care unit. He is awake and alert in no acute distress. Sitting up at the bedside. Denies any worsening shortness of breath, cough or congestion. He does have some sinus congestion. He has some dryness in his throat. His chest x-ray is showing improvement. Resolving a right lower lobe infiltrate. Blood cultures revealed no growth. Sputum culture revealed no growth. Blood sugar 125. He is continued on DuoNeb ventilations, Pulmicort and Perforomist inhalations, Solu- Medrol. Antibiotics in the form of Levaquin. Remains on oral diuretics. The patient is seen today June 29, 2023 in follow-up on the regular medical floor. He is sitting up in bed. Awake and alert in no acute distress. He denies any worsening shortness of breath, cough or congestion. He is having some nasal congestion. He is on Flonase. He is continued on DuoNeb elections, Pulmicort and perform scintillations, Solu-Medrol. Remains on oral diuretics. Continued on antibiotics in the form of Levaquin. Sodium 132. Potassium 4.6. Bicarb 33. BUN 27. Creatinine 0.79. Glucose 132. The patient is seen today June 30, 2023 in follow-up on the regular medical floor. He is awake and alert in no acute distress. Resting comfortably in bed. Continues with a loose nonproductive cough. No worsening shortness of breath, cough or congestion. He is continued on bronchodilators, Robitussin, steroids. Heparin for DVT prophylaxis. Remains on oral diuretics. Remains on antibiotics in the form of Levaquin. Cultures revealed no growth. Sputum culture revealed no growth. Sodium 138. Potassium 3.9. Bicarb 33. BUN 20. Creatinine 0.7. Glucose 83. Objective - Vital Signs Vital signs: Vital Signs Temp 97.7 F 06/30/23 07:36 Pulse 84 06/30/23 11:51 Resp 18 06/30/23 07:36 BP 135/77 06/30/23 07:36 Pulse Ox 92 L 06/30/23 07:36 FiO2 Intake & Output 06/29/23 06/30/23 06/30/23 18:59 06:59 18:59 Intake Total 736 118 Output Total 700 800 Balance 36 -800 118 Intake: Oral 736 118 Output: Urine 700 800 - Exam GENERAL EXAM: Alert, 72-year-old male, on 3 L nasal cannula, resting comfortably in bed, in no apparent distress. HEAD: Normocephalic. EYES: Normal reaction of pupils, equal size. NOSE: Clear with pink turbinates. THROAT: No erythema or exudates. NECK: No masses, no JVD. CHEST: No chest wall deformity. LUNGS: Equal air entry with bilateral scattered rhonchi, diminished. CVS: S1 and S2 normal with no audible murmur, regular rhythm. ABDOMEN: No hepatosplenomegaly, normal bowel sounds, no guarding or rigidity. SPINE: No scoliosis or deformity SKIN: No rashes CENTRAL NERVOUS SYSTEM: No focal deficits, tone is normal in all 4 extremities. EXTREMITIES: There is no peripheral edema. No clubbing, no cyanosis. Peripher al pulses are intact. - Labs CBC & Chem 7: 06/27/23 02:58 06/30/23 05:33 Labs: Abnormal Lab Results - Last 24 Hours (Table) 06/29/23 06/29/23 06/29/23 Range/Units 12:02 17:26 20:43 Carbon Dioxide (21.6-31.8) mmol/L BUN/Creatinine Ratio (12.00-20.00) Ratio POC Glucose (mg/dL) 215 H 136 H 127 H (70-110) mg/dL Calcium (8.7-10.3) mg/dL 06/30/23 Range/Units 05:33 Carbon Dioxide 32.6 H (21.6-31.8) mmol/L BUN/Creatinine Ratio 28.00 H (12.00-20.00) Ratio POC Glucose (mg/dL) (70-110) mg/dL Calcium 7.6 L (8.7-10.3) mg/dL Assessment and Plan Assessment: Acute on chronic hypoxemic respiratory failure secondary to suspected bilateral pneumonia. Pro-calcitonin 0.10. Currently on Levaquin. Follow-up chest x-ray showing improvement Acute exacerbation of chronic obstructive pulmonary disease secondary to above History of tobacco use History of severe/stage III COPD, with an FEV1 that's 34% of predicted History of hypertension History of laryngeal carcinoma, status post radiation treatments History of gastroesophageal reflux disease Right proximal humeral neck/head fracture History of right hip fracture, status post repair, seroma measuring 28 x 3 cm in size, postsurgical in nature involving the right hip Large hiatal hernia Left sided renal calculus Cholelithiasis without cholecystitis Poor functional performance based on the above mentioned multiple comorbidities Plan: The patient was seen and evaluated Labs and medications reviewed Continue the current treatment plan Completed a course of antibiotic Titrate the FiO2 as tolerated I have personally seen and examined the patient, performed the documentation and the assessment and plan as written. Number of minutes spent on the visit: 10.
[2023-06-30 12:15] LABS: Glucose,Whole Blood 108 mg/dL (70-110)
[2023-06-30] MEDS ORDERED: LEVOFLOXACIN 500 MG TAB PO STA (16:56)
--- NOTE | 2023-06-30 16:58 | P.PN ---
Subjective This is a 72-year-old male, currently residing at subacute rehab-scheduled to finish up this week, history of coronary artery disease, COPD, hypertension, hyperlipidemia, chronic hypoxic/hypercapnic respiratory failure, patient uses O2 at 2 L per nasal cannula, presented to the ER for difficulty breathing. Reports he was watching the game on TV yesterday and developed increased persistent shortness of breath, improved after receiving a breathing treatment per EMS. Reported high recent fever per ER, EMS sheets currently not available. On adm ission, tachypneic on a nonrebreather, weaned down to 5 L nasal cannula, maintaining O2 sats in the low 90s. Soft blood pressures throughout the night, improved this morning. Chest x-ray reported basilar airspace opacity consider atelectasis and infection, possible small left pleural effusion. P chest x-ray reported right lower lobe infiltrate and consolidation, correlate for pneumonia, mild left basilar atelectasis. Afebrile, normal WBC, lactic acid 0.6. Pro- calcitonin pending.Hemoglobin 8.6, platelets 277. Sodium 134, potassium 5.1, chloride 108, bicarb 21, BUN 15, creatinine 0.57. Blood sugars controlled. Magnesium 1.8. Blood and sputum cultures collected. Received IV fluids, va ncomycin, Levaquin, IV steroids and nebulized bronchodilators. 06/25/2023 maintained on nebulized bronchodilators, IV steroids, vancomycin, Levaquin, Mucinex with breathing improved. Renal function stable ,maintaining O2 sats in the 90s on 4 L nasal cannula. reports nonproductive cough, mild short ness of breath. Afebrile, normal WBC. Blood sugars controlled. Sodium 130. 06/26/2023 continues on nebulized bronchodilators/Pulmicort/Perforomist, IV steroids, diuretics .Maintaining O2 sats in the 90s on 3 L nasal cannula. Antibiotics further adjusted as per pulmonary with vancomycin discontinued, secondary to sputum cultures not reporting staph aures. Renal function stable. Afebrile. 06/27/2024 yesterday afternoon developed sharp midsternal chest pain, nonradiating x 2 lasting up to 7 minutes, accompanied by coughing. Troponins negative x 2, EKG reported sinus with PVCs. evaluated by cardiology this morning with EKG reviewed. No further chest discomfort episodes. Planes of frontal headache, stuffy nose this morning. Maintaining O2 sats in the 90s on 4 L nasal cannula. Afebrile, normal WBC. 06/28/2024 continues on nebulized bronchodilators, antibiotics. no further headache, complains of ongoing nasal congestion. Denies chest pain, palpitations or increase shortness of breath. maintaining O2 sats in the low 90s on 4 L nasal cannula. Chest x-ray pending. afebrile 06/29/2023 This is a pleasant 72 years old male who presents with bilateral pneumonia and COPD exacerbation as well as acute hypoxic respiratory failure Currently he is on 3 L oxygen saturating 90% His on a prednisone 40 mg and Levaquin 750 mg IV 2824 06/26/2027 Patient breathing is improving, no chest pain Currently he is on 3 L oxygen He is on prednisone 40 mg and Levaquin 500 mg oral dose Other new complaints Objective - Vital Signs Vital signs: Vital Signs Temp 97.7 F 06/30/23 07:36 Pulse 100 06/30/23 09:27 Resp 18 06/30/23 07:36 BP 135/77 06/30/23 07:36 Pulse Ox 92 L 06/30/23 07:36 FiO2 Intake & Output 06/29/23 06/30/23 06/30/23 18:59 06:59 18:59 Intake Total 736 118 Output Total 700 800 Balance 36 -800 118 Intake: Oral 736 118 Output: Urine 700 800 - Exam GENERAL: The patient is alert and oriented x3, not in any acute distress. Well developed, well nourished. HEENT: Pupils are round and equally reacting to light. EOMI. No scleral icterus. No conjunctival pallor. Normocephalic, atraumatic. No pharyngeal erythema. No thyromegaly. CARDIOVASCULAR: S1 and S2 present. No murmurs, rubs, or gallops. PULMONARY: Chest is clear to auscultation, no wheezing , no crackles. ABDOMEN: Soft, nontender, nondistended, normoactive bowel sounds. No palpable organomegaly. MUSCULOSKELETAL: No joint swelling or deformity. EXTREMITIES: No cyanosis, clubbing, or pedal edema. NEUROLOGICAL: Gross neurological examination did not reveal any focal deficits. SKIN: No rashes. no petechiae. - Labs CBC & Chem 7: 06/27/23 02:58 06/30/23 05:33 Labs: Abnormal Lab Results - Last 24 Hours (Table) 06/29/23 06/29/23 06/29/23 Range/Units 12:02 17:26 20:43 Carbon Dioxide (21.6-31.8) mmol/L BUN/Creatinine Ratio (12.00-20.00) Ratio POC Glucose (mg/dL) 215 H 136 H 127 H (70-110) mg/dL Calcium (8.7-10.3) mg/dL 06/30/23 Range/Units 05:33 Carbon Dioxide 32.6 H (21.6-31.8) mmol/L BUN/Creatinine Ratio 28.00 H (12.00-20.00) Ratio POC Glucose (mg/dL) (70-110) mg/dL Calcium 7.6 L (8.7-10.3) mg/dL Assessment and Plan Assessment: Acute healthcare-acquired bilateral pneumonia in a patient currently residing in a subacute rehab., Procalcitonin 0.10. Acute COPD exacerbation secondary to the above Acute on chronic hypoxic respiratory failure secondary to the above Recent [facility]ilateral [facility] acquired pneumonia with Serratia marcescens Recent Comminuted right humerus fracture with impacted surgical neck Recent history of hip surgery status post [facility] Gastroesophageal reflux disease Large hiatal hernia Left-sided renal calculus Hyponatremia Chronic anemia Benign prostatic hypertrophy Hypertension Ongoing nicotine dependence History of laryngeal carcinoma, status post radiation treatments. Oral candidiasis Plan: Continue with prednisone 40 mg Continue with Levaquin Pulmonary consult Labs and medication were reviewed.. Continue same treatment. Continue with symptomatic treatment. Resume home medication. Monitor labs and vitals. DVT and GI prophylaxis. Further recommendations as per clinical course of the patient DVT prophylaxis: Subcutaneous heparin GI Prophylaxis: Pepcid
[2023-06-30 17:15] LABS: Glucose,Whole Blood 141 mg/dL (70-110)
[2023-06-30 20:09] LABS: Glucose,Whole Blood 143 mg/dL (70-110)
[2023-06-30] MEDS: MELATONIN 3 MG TABLET PO SCH (20:48)
[2023-06-30] MEDS: DOCUSATE 100 MG CAP PO SCH (20:49)
[2023-06-30] MEDS: TAMSULOSIN 0.4 MG CAP.ER.24H PO SCH (20:49)
[2023-06-30] MEDS: guaiFENesin-Coden 100-10MG/5ML 10 ML CUP PO PRN (23:55)
[2023-07-01] MEDS: guaiFENesin-DM 100-10MG/5ML 10 ML CUP PO SCH ×5 (00:03→23:52)
[2023-07-01 06:10] LABS: Glucose,Whole Blood 95 mg/dL (70-110)
[2023-07-01] MEDS: INSULIN ASPART (NovoLOG) 100 UNIT/ML VIAL SQ SCH ×4 (06:13→20:36)
[2023-07-01] MEDS: FORMOTEROL FUMARATE 20 MCG/2 ML NEBU INHALATION SCH ×2 (07:30→18:04)
[2023-07-01] MEDS: IPRATROPIUM-ALBUTEROL 3 ML NEB INHALATION SCH ×4 (07:30→18:04)
[2023-07-01] MEDS: BUDESONIDE 1 MG/2 ML NEBU INHALATION SCH ×2 (07:30→18:04)
[2023-07-01 08:46] LABS: BUN/Creat Ratio 22.14 Ratio (12.00-20.00); Blood Urea Nitrogen 15.5 mg/dL (9.0-27.0); Glucose 94 mg/dL (70-110)
[2023-07-01 08:47] LABS: Calcium 7.9 mg/dL (8.7-10.3); Carbon Dioxide 36.6 mmol/L (21.6-31.8); Chloride 94 mmol/L (96-109); Potassium 3.7 mmol/L (3.5-5.5); Sodium 137 mmol/L (135-145)
[2023-07-01] MEDS: NYSTATIN 100,000 UNIT/ML SUSP 500,000 UNIT/5 ML CUP PO SCH ×4 (09:07→22:40)
[2023-07-01] MEDS: FUROSEMIDE 40 MG TAB PO SCH (09:07)
[2023-07-01] MEDS: PANTOPRAZOLE 40 MG TABLET PO SCH (09:07)
[2023-07-01] MEDS: predniSONE 20 MG TAB PO SCH (09:07)
[2023-07-01] MEDS: METOPROLOL SUCCINATE (ER) 25 MG TAB.ER.24H PO SCH (09:07)
[2023-07-01] MEDS: lisinopriL 20 MG TAB PO SCH ×2 (09:07→20:03)
[2023-07-01] MEDS: SENNOSIDES-DOCUSATE SODIUM 1 EACH TAB PO SCH ×2 (09:07→20:03)
[2023-07-01] MEDS: HEPARIN SODIUM,PORCINE 5,000 UNIT/ML 1 ML VIAL SQ SCH ×2 (09:08→20:02)
[2023-07-01] MEDS: FLUTICASONE 50MCG/SPRAY NASAL 16GM EA NOSTRIL SCH (09:08)
[2023-07-01] MEDS: ACETAMINOPHEN TAB 325 MG TAB PO PRN ×2 (09:18→22:40)
[2023-07-01 12:36] LABS: Glucose,Whole Blood 107 mg/dL (70-110)
--- NOTE | 2023-07-01 13:08 | P.PN ---
Subjective Progress Note Date: 07/01/23 This is a 72-year-old male patient with severe COPD with an FEV1 that's 34% of predicted. He does use home oxygen at between 3-4 L/m. The patient does continue to smoke cigarettes. He typically is on Symbicort, Ventolin inhaler, and a nebulizer machine. He also has a history of coronary artery disease, laryngeal cancer with previous radiation, autoimmune disease, hearing disorder, hypertension, hyperlipidemia, abdominal aortic aneurysm status post stenting recent fall with fracture and repair of a right hip fracture and had recently been undergoing rehab at [facility] on the [place]. He presented here to the emergency room again yesterday with significant increasing shortness of breath. X-ray reveals basilar airspace opacities and small left pleural effusion. I count 4.0. Hemoglobin 8.6. Pletal its to 77. Sodium 134. Potassium 5.1. Bicarb 21. BUN 15. Creatinine 0.57. Glucose 154. Pro-calcitonin 0.10. He is seen in consultation in the emergency department. Currently sitting up on the stretcher. Awake and alert in no acute distress. Breathing a bit easier today compared to yesterday. He is maintaining O2 saturations in the 90s on 5 L high flow nasal cannula. Afebrile. Hemodynamically stable. The patient is seen today June 25, 2023 in follow-up on the regular medical floor. He is currently sitting up at the bedside. Awake and alert in no acute distress. Feeling better today compared to yesterday. His blood cultures revealed no growth. Sputum cultures revealed no growth thus far. He is maintaining O2 saturation in the 90s on 4 L/min per nasal cannula. He has normal saline at KVO. He is continued on vancomycin and Levaquin for now. Continued on DuoNeb elations, Pulmicort and performing scintillations, Solu- Medrol. Remains on oral diuretics. White count 6.8. Hemoglobin 7.9. Platelets 280. Sodium 130. Potassium 3.6. Bicarb 23. BUN 16. Creatinine 0.59. Glucose 140. Patient was reevaluated today on 06/26/2023, slightly better, nonetheless co ntinues to cough and wheeze.On 3 L nasal cannula O2 saturation 95%. Sputum cultures have been nondiagnostic, no Staph aureus in the sputum, hence I am recommending we discontinue vancomycin and continue Levaquin The patient is seen today June 27, 2023 in follow-up on the selective care unit. He is currently sitting up in bed. Awake and alert in no acute distress. Feeling better today compared to yesterday. Denies any worsening shortness of breath, cough or congestion. He is maintaining O2 saturations in the 90s on 4 L/min per nasal cannula. Has been afebrile. Hemodynamically stable. Blood cultures revealed no growth. Sputum culture reveals no growth. White count 8.1. Hemoglobin 8.6. Platelets 248. Sodium 133. Potassium 3.9. Bicarb 27. BUN 15. Creatinine 0.76. Glucose 112. Troponins negative x 2. He is currently net -1.4 L balance. He is continued on DuoNeb ventilations, Pulmicort and performing scintillations, Solu-Medrol. Antibiotics in the form of Levaquin. Remains on oral diuretics. The patient is seen today June 28, 2023 and follow-up on the selective care unit. He is awake and alert in no acute distress. Sitting up at the bedside. Denies any worsening shortness of breath, cough or congestion. He does have some sinus congestion. He has some dryness in his throat. His chest x-ray is showing improvement. Resolving a right lower lobe infiltrate. Blood cultures revealed no growth. Sputum culture revealed no growth. Blood sugar 125. He is continued on DuoNeb ventilations, Pulmicort and Perforomist inhalations, Solu- Medrol. Antibiotics in the form of Levaquin. Remains on oral diuretics. The patient is seen today June 29, 2023 in follow-up on the regular medical floor. He is sitting up in bed. Awake and alert in no acute distress. He denies any worsening shortness of breath, cough or congestion. He is having some nasal congestion. He is on Flonase. He is continued on DuoNeb elections, Pulmicort and perform scintillations, Solu-Medrol. Remains on oral diuretics. Continued on antibiotics in the form of Levaquin. Sodium 132. Potassium 4.6. Bicarb 33. BUN 27. Creatinine 0.79. Glucose 132. The patient is seen today June 30, 2023 in follow-up on the regular medical floor. He is awake and alert in no acute distress. Resting comfortably in bed. Continues with a loose nonproductive cough. No worsening shortness of breath, cough or congestion. He is continued on bronchodilators, Robitussin, steroids. Heparin for DVT prophylaxis. Remains on oral diuretics. Remains on antibiotics in the form of Levaquin. Cultures revealed no growth. Sputum culture revealed no growth. Sodium 138. Potassium 3.9. Bicarb 33. BUN 20. Creatinine 0.7. Glucose 83. The patient is seen today July 01, 2023 and follow-up on the regular medical floor. He is sitting up having breakfast. Awake and alert in no acute distress. Denies any worsening shortness of breath, cough or congestion. Sputum culture revealed no growth. Blood culture revealed no growth. Sodium 137. Potassium 3.7. Bicarb 37. BUN 16. Creatinine 0.7. Glucose 94. He remains on bronchodilators. Robitussin for his cough. Heparin for DVT prophylaxis. Remains on a prednisone taper. Objective - Vital Signs Vital signs: Vital Signs Temp 97.6 F 07/01/23 08:00 Pulse 92 07/01/23 11:17 Resp 22 07/01/23 08:00 BP 143/83 07/01/23 08:00 Pulse Ox 98 07/01/23 08:00 FiO2 Intake & Output 06/30/23 07/01/23 07/01/23 18:59 06:59 18:59 Intake Total 1494 595 Output Total 1250 400 Balance 244 195 Intake: Oral 1494 595 Output: Urine 1250 400 Other: Voiding Method Toilet Urinal # Voids 2 1 # Bowel Movements 1 - Exam GENERAL EXAM: Alert, oriented 72-year-old male, on 3 L nasal cannula, sitting up in bed, in no apparent distress. HEAD: Normocephalic. EYES: Normal reaction of pupils, equal size. NOSE: Clear with pink turbinates. THROAT: No erythema or exudates. NECK: No masses, no JVD. CHEST: No chest wall deformity. LUNGS: Equal air entry with bilateral scattered rhonchi, diminished. CVS: S1 and S2 normal with no audible murmur, regular rhythm. ABDOMEN: No hepatosplenomegaly, normal bowel sounds, no guarding or rigidity. SPINE: No scoliosis or deformity SKIN: No rashes CENTRAL NERVOUS SYSTEM: No focal deficits, tone is normal in all 4 extremities. EXTREMITIES: There is no peripheral edema. No clubbing, no cyanosis. Peripheral pulses are intact. - Labs CBC & Chem 7: 06/27/23 02:58 07/01/23 06:23 Labs: Abnormal Lab Results - Last 24 Hours (Table) 06/30/23 06/30/23 07/01/23 Range/Units 17:14 20:08 06:23 Chloride 94 L (96-109) mmol/L Carbon Dioxide 36.6 H (21.6-31.8) mmol/L BUN/Creatinine Ratio 22.14 H (12.00-20.00) Ratio POC Glucose (mg/dL) 141 H 143 H (70-110) mg/dL Calcium 7.9 L (8.7-10.3) mg/dL Assessment and Plan Assessment: Acute on chronic hypoxemic respiratory failure secondary to suspected bilateral pneumonia. Pro-calcitonin 0.10. Completed Levaquin. Follow-up chest x-ray showing improvement Acute exacerbation of chronic obstructive pulmonary disease secondary to above History of tobacco use History of severe/stage III COPD, with an FEV1 that's 34% of predicted History of hypertension History of laryngeal carcinoma, status post radiation treatments History of gastroesophageal reflux disease Right proximal humeral neck/head fracture History of right hip fracture, status post repair, seroma measuring 28 x 3 cm in size, postsurgical in nature involving the right hip Large hiatal hernia Left sided renal calculus Cholelithiasis without cholecystitis Poor functional performance based on the above mentioned multiple comorbidities Plan: The patient was seen and evaluated Labs and medications reviewed Cleared for discharge from the pulmonary standpoint Plan is for home with home care I have personally seen and examined the patient, performed the documentation and the assessment and plan as written. Number of minutes spent on the visit: 10.
--- NOTE | 2023-07-01 16:37 | P.DS ---
Providers Date of admission: 06/23/23 21:37 Expected date of discharge: 07/01/23 Attending physician: Jamie Balderas Consults: 06/23/23 21:37 Consult Physician Routine Consulting Provider: Lisa Gonzalez Consult Reason/Comments: hypoxia Do you want consulting provider notified?: Yes Primary care physician: Jamie Balderas [place] [facility] Course: Final Diagnoses: Acute healthcare-acquired bilateral pneumonia in a patient currently residing in a subacute rehab., Procalcitonin 0.10. Acute COPD exacerbation secondary to the above Acute on chronic hypoxic respiratory failure secondary to the above Recent Bilateral basal hospital acquired pneumonia with Serratia marcescens Recent Comminuted right humerus fracture with impacted surgical neck Recent history of hip surgery status post [facility] Gastroesophageal reflux disease Large hiatal hernia Left-sided renal calculus Hyponatremia Chronic anemia Benign prostatic hypertrophy Hypertension Ongoing nicotine dependence History of laryngeal carcinoma, status post radiation treatments. Oral candidiasis, improved Hospital course:This is a 72-year-old male, currently residing at subacute rehab-scheduled to finish up this week, history of coronary artery disease, COPD, hypertension, hyperlipidemia, chronic hypoxic/hypercapnic respiratory failure, patient uses O2 at 2 L per nasal cannula, presented to the ER for difficulty breathing. Reports he was watching the game on TV yesterday and developed increased persistent shortness of breath, improved after receiving a breathing treatment per EMS. Reported high recent fever per ER, EMS sheets currently not available. On admission, tachypneic on a nonrebreather, weaned down to 5 L nasal cannula, maintaining O2 sats in the low 90s. Soft blood pressures throughout the night, improved this morning. Chest x-ray reported basilar airspace opacity consider atelectasis and infection, possible small left pleural effusion. P chest x-ray reported right lower lobe infiltrate and consolidation, correlate for pneumonia, mild left basilar atelectasis. Afebrile, normal WBC, lactic acid 0.6. Pro-calcitonin pending.Hemoglobin 8.6, platelets 277. Sodium 134, potassium 5.1, chloride 108, bicarb 21, BUN 15, creatinine 0.57. Blood sugars controlled. Magnesium 1.8. Blood and sputum cultures collected. Received IV fluids, vancomycin, Levaquin, IV steroids and nebulized bronchodilators. 06/25/2023 maintained on nebulized bronchodilators, IV steroids, vancomycin, Levaquin, Mucinex with breathing improved. Renal function stable ,maintaining O2 sats in the 90s on 4 L nasal cannula. reports nonproductive cough, mild shortness of breath. Afebrile, normal WBC. Blood sugars controlled. Sodium 130. 06/26/2023 continues on nebulized bronchodilators/Pulmicort/Perforomist, IV steroids, diuretics .Maintaining O2 sats in the 90s on 3 L nasal cannula. Antibiotics further adjusted as per pulmonary with vancomycin discontinued, secondary to sputum cultures not reporting staph aures. Renal function stable. Afebrile. 06/27/2024 yesterday afternoon developed sharp midsternal chest pain, nonradiating x 2 lasting up to 7 minutes, accompanied by coughing. Troponins negative x 2, EKG reported sinus with PVCs. evaluated by cardiology this morning with EKG reviewed. No further chest discomfort episodes. Planes of frontal headache, stuffy nose this morning. Maintaining O2 sats in the 90s on 4 L nasal cannula. Afebrile, normal WBC. 06/28/2024 continues on nebulized bronchodilators, antibiotics. no further headache, complains of ongoing nasal congestion. Denies chest pain, p alpitations or increase shortness of breath. maintaining O2 sats in the low 90s on 4 L nasal cannula. Chest x-ray pending. afebrile. Chest x-ray on 126 reported resolving right lower lobe infiltrate. Continued on nebulized bronchodilators, steroids, oral diuretics and completed antibiotic course. Denies chest pain, palpitations or increased shortness of breath. Maintaining O2 sats in the mid 90s on 3 L nasal cannula. Afebrile. Feels better. Patient will be discharged home today with home care in a stable condition with guarded prognosis pending final DC recommendations and clearance per pulmonary. The impression and plan of care has been dictated as directed. : I performed a history and examination of this patient, discussed the same with the dictator. I agree with the dictator's note ,documented as a scribe. Any additional findings or plans will be noted. Patient Condition at Discharge: Stable Plan - Discharge Summary Discharge Rx Participant: No New Discharge Prescriptions: New guaiFENesin-Coden 100-10MG/5ML [Robitussin AC] 10 ml PO Q6HR PRN #240 ml PRN Reason: Cough Ipratropium-Albuterol Nebulize [Duoneb 0.5 mg-3 mg/3 ml Soln] 3 ml INHALATION RT-QID #0 each Fluticasone Nasal [place] [Flonase Nasal [place]] 2 spray EA NOSTRIL DAILY ml predniSONE 10 mg PO DIRECTED #30 tab Continue lisinopriL [Zestril] 20 mg PO BID Albuterol Nebulized [Ventolin Nebulized] 2.5 mg INHALATION RT-QID PRN PRN Reason: Shortness Of Breath Albuterol Sulfate [Ventolin HFA] 2 puff INHALATION RT-Q6H PRN PRN Reason: Shortness Of Breath Tamsulosin HCl [Flomax] 0.4 mg PO HS Metoprolol Succinate (ER) [Toprol XL] 12.5 mg PO DAILY #30 tab Omeprazole 20 mg PO DAILY Aspirin [Adult Low Dose Aspirin EC] 81 mg PO BID #1 tab Acetaminophen Tab [Tylenol] 650 mg PO Q6HR PRN tab PRN Reason: Mild Pain Or Fever > 100.5 Budesonide-Formot 160-4.5 Mcg [Symbicort 160-4.5 Mcg Inhaler] 2 puff INHALATION RT-BID #1 each Sennosides-Docusate Sodium [Senokot-S] 1 tab PO BID #60 tablet Furosemide [Lasix] 40 mg PO DAILY tab Ipratropium-Albuterol Nebulize [Duoneb 0.5 mg-3 mg/3 ml Soln] 3 ml INHALATION RT-Q6H Docusate Sodium [Dok] 100 mg PO HS Discontinued HYDROcodone/APAP 5-325MG [[place] 5-325] 1 - 2 tab PO Q6H PRN PRN Reason: Pain Discharge Medication List lisinopriL [Zestril] 20 mg PO BID 03/04/19 [History] Albuterol Nebulized [Ventolin Nebulized] 2.5 mg INHALATION RT-QID PRN 03/06/20 [History] Albuterol Sulfate [Ventolin HFA] 2 puff INHALATION RT-Q6H PRN 03/06/20 [History] Tamsulosin HCl [Flomax] 0.4 mg PO HS 04/11/22 [History] Budesonide-Formot 160-4.5 Mcg [Symbicort 160-4.5 Mcg Inhaler] 2 puff INHALATION RT-BID #1 each 04/16/22 [Rx] Metoprolol Succinate (ER) [Toprol XL] 12.5 mg PO DAILY #30 tab 04/16/22 [Rx] Omeprazole 20 mg PO DAILY 05/02/22 [History] Aspirin [Adult Low Dose Aspirin EC] 81 mg PO BID #1 tab 05/13/23 [Rx] Sennosides-Docusate Sodium [Senokot-S] 1 tab PO BID #60 tablet 05/13/23 [Rx] Acetaminophen Tab [Tylenol] 650 mg PO Q6HR PRN tab 05/14/23 [Rx] Furosemide [Lasix] 40 mg PO DAILY tab 06/07/23 [Rx] Docusate Sodium [Dok] 100 mg PO HS 06/23/23 [History] Ipratropium-Albuterol Nebulize [Duoneb 0.5 mg-3 mg/3 ml Soln] 3 ml INHALATION RT-Q6H 06/23/23 [History] guaiFENesin-Coden 100-10MG/5ML [Robitussin AC] 10 ml PO Q6HR PRN #240 ml 06/26/23 [Rx] Fluticasone Nasal [place] [Flonase Nasal [place]] 2 spray EA NOSTRIL DAILY ml 07/01/23 [Rx] Ipratropium-Albuterol Nebulize [Duoneb 0.5 mg-3 mg/3 ml Soln] 3 ml INHALATION RT-QID #0 each 07/01/23 [Rx] predniSONE 10 mg PO DIRECTED #30 tab 07/01/23 [Rx] Follow up Appointment(s)/Referral(s): [facility], [NON-STAFF] - Jamie Balderas DO [Primary Care Provider] - 3 Days Patient Instructions/Handouts: COPD (Chronic Obstructive Pulmonary Disease) (DC) Activity/Diet/Wound Care/Special Instructions: Confirm pulmonary follow-up prior to discharge Discharge Disposition: HOME WITH HOME HEALTH SERVICES
[2023-07-01 17:56] LABS: Glucose,Whole Blood 117 mg/dL (70-110)
[2023-07-01] MEDS: TAMSULOSIN 0.4 MG CAP.ER.24H PO SCH (20:02)
[2023-07-01] MEDS: MELATONIN 3 MG TABLET PO SCH (20:02)
[2023-07-01] MEDS: DOCUSATE 100 MG CAP PO SCH (20:03)
[2023-07-01 20:24] LABS: Glucose,Whole Blood 160 mg/dL (70-110)
[2023-07-01] MEDS: guaiFENesin-Coden 100-10MG/5ML 10 ML CUP PO PRN (22:40)
[2023-07-01] MEDS: IPRATROPIUM-ALBUTEROL 3 ML NEB INHALATION PRN (23:03)
[2023-07-02 06:09] LABS: Glucose,Whole Blood 98 mg/dL (70-110)
[2023-07-02] MEDS: INSULIN ASPART (NovoLOG) 100 UNIT/ML VIAL SQ SCH (06:11)
[2023-07-02] MEDS: guaiFENesin-DM 100-10MG/5ML 10 ML CUP PO SCH (06:12)
[2023-07-02 07:49] VITALS: BP 119/77; TEMP 97.6
[2023-07-02] MEDS: lisinopriL 20 MG TAB PO SCH (08:35)
[2023-07-02] MEDS: METOPROLOL SUCCINATE (ER) 25 MG TAB.ER.24H PO SCH (08:35)
[2023-07-02] MEDS: predniSONE 20 MG TAB PO SCH (08:36)
[2023-07-02] MEDS: SENNOSIDES-DOCUSATE SODIUM 1 EACH TAB PO SCH (08:36)
[2023-07-02] MEDS: FUROSEMIDE 40 MG TAB PO SCH (08:36)
[2023-07-02] MEDS: PANTOPRAZOLE 40 MG TABLET PO SCH (08:36)
[2023-07-02] MEDS: HEPARIN SODIUM,PORCINE 5,000 UNIT/ML 1 ML VIAL SQ SCH (08:37)
[2023-07-02] MEDS: NYSTATIN 100,000 UNIT/ML SUSP 500,000 UNIT/5 ML CUP PO SCH (08:37)
[2023-07-02] MEDS: FLUTICASONE 50MCG/SPRAY NASAL 16GM EA NOSTRIL SCH (08:37)
[2023-07-02] MEDS: ACETAMINOPHEN TAB 325 MG TAB PO PRN (08:41)
[2023-07-02] MEDS: IPRATROPIUM-ALBUTEROL 3 ML NEB INHALATION SCH (09:08)
[2023-07-02] MEDS: FORMOTEROL FUMARATE 20 MCG/2 ML NEBU INHALATION SCH (09:08)
[2023-07-02] MEDS: BUDESONIDE 1 MG/2 ML NEBU INHALATION SCH (09:09)
[2023-07-02 09:19] VITALS: RESP 18
[2023-07-02 09:48] VITALS: PULSE 90
--- NOTE | 2023-07-02 12:10 | P.PN ---
Subjective Progress Note Date: 07/02/23 This is a 72-year-old male patient with severe COPD with an FEV1 that's 34% of predicted. He does use home oxygen at between 3-4 L/m. The patient does continue to smoke cigarettes. He typically is on Symbicort, Ventolin inhaler, and a nebulizer machine. He also has a history of coronary artery disease, laryngeal cancer with previous radiation, autoimmune disease, hearing disorder, hypertension, hyperlipidemia, abdominal aortic aneurysm status post stenting recent fall with fracture and repair of a right hip fracture and had recently been undergoing rehab at [facility] on the [place]. He presented here to the emergency room again yesterday with significant increasing shortness of breath. X-ray reveals basilar airspace opacities and small left pleural effusion. I count 4.0. Hemoglobin 8.6. Pletal its to 77. Sodium 134. Potassium 5.1. Bicarb 21. BUN 15. Creatinine 0.57. Glucose 154. Pro-calcitonin 0.10. He is seen in consultation in the emergency department. Currently sitting up on the stretcher. Awake and alert in no acute distress. Breathing a bit easier today compared to yesterday. He is maintaining O2 saturations in the 90s on 5 L high flow nasal cannula. Afebrile. Hemodynamically stable. The patient is seen today June 25, 2023 in follow-up on the regular medical floor. He is currently sitting up at the bedside. Awake and alert in no acute distress. Feeling better today compared to yesterday. His blood cultures revealed no growth. Sputum cultures revealed no growth thus far. He is maintaining O2 saturation in the 90s on 4 L/min per nasal cannula. He has normal saline at KVO. He is continued on vancomycin and Levaquin for now. Continued on DuoNeb elations, Pulmicort and performing scintillations, Solu- Medrol. Remains on oral diuretics. White count 6.8. Hemoglobin 7.9. Platelets 280. Sodium 130. Potassium 3.6. Bicarb 23. BUN 16. Creatinine 0.59. Glucose 140. Patient was reevaluated today on 06/26/2023, slightly better, nonetheless co ntinues to cough and wheeze.On 3 L nasal cannula O2 saturation 95%. Sputum cultures have been nondiagnostic, no Staph aureus in the sputum, hence I am recommending we discontinue vancomycin and continue Levaquin The patient is seen today June 27, 2023 in follow-up on the selective care unit. He is currently sitting up in bed. Awake and alert in no acute distress. Feeling better today compared to yesterday. Denies any worsening shortness of breath, cough or congestion. He is maintaining O2 saturations in the 90s on 4 L/min per nasal cannula. Has been afebrile. Hemodynamically stable. Blood cultures revealed no growth. Sputum culture reveals no growth. White count 8.1. Hemoglobin 8.6. Platelets 248. Sodium 133. Potassium 3.9. Bicarb 27. BUN 15. Creatinine 0.76. Glucose 112. Troponins negative x 2. He is currently net -1.4 L balance. He is continued on DuoNeb ventilations, Pulmicort and performing scintillations, Solu-Medrol. Antibiotics in the form of Levaquin. Remains on oral diuretics. The patient is seen today June 28, 2023 and follow-up on the selective care unit. He is awake and alert in no acute distress. Sitting up at the bedside. Denies any worsening shortness of breath, cough or congestion. He does have some sinus congestion. He has some dryness in his throat. His chest x-ray is showing improvement. Resolving a right lower lobe infiltrate. Blood cultures revealed no growth. Sputum culture revealed no growth. Blood sugar 125. He is continued on DuoNeb ventilations, Pulmicort and Perforomist inhalations, Solu- Medrol. Antibiotics in the form of Levaquin. Remains on oral diuretics. The patient is seen today June 29, 2023 in follow-up on the regular medical floor. He is sitting up in bed. Awake and alert in no acute distress. He denies any worsening shortness of breath, cough or congestion. He is having some nasal congestion. He is on Flonase. He is continued on DuoNeb elections, Pulmicort and perform scintillations, Solu-Medrol. Remains on oral diuretics. Continued on antibiotics in the form of Levaquin. Sodium 132. Potassium 4.6. Bicarb 33. BUN 27. Creatinine 0.79. Glucose 132. The patient is seen today June 30, 2023 in follow-up on the regular medical floor. He is awake and alert in no acute distress. Resting comfortably in bed. Continues with a loose nonproductive cough. No worsening shortness of breath, cough or congestion. He is continued on bronchodilators, Robitussin, steroids. Heparin for DVT prophylaxis. Remains on oral diuretics. Remains on antibiotics in the form of Levaquin. Cultures revealed no growth. Sputum culture revealed no growth. Sodium 138. Potassium 3.9. Bicarb 33. BUN 20. Creatinine 0.7. Glucose 83. The patient is seen today July 01, 2023 and follow-up on the regular medical floor. He is sitting up having breakfast. Awake and alert in no acute distress. Denies any worsening shortness of breath, cough or congestion. Sputum culture revealed no growth. Blood culture revealed no growth. Sodium 137. Potassium 3.7. Bicarb 37. BUN 16. Creatinine 0.7. Glucose 94. He remains on bronchodilators. Robitussin for his cough. Heparin for DVT prophylaxis. Remains on a prednisone taper. The patient is seen today July 02, 2023 in follow-up on the regular medical floor. He is up ambulating in his room. Awake and alert in no acute distress. Denies any worsening shortness of breath, cough or congestion. Continued O2 saturations in the 90s on 3 L/min per nasal cannula. Sputum culture negative. Blood cultures negative. Blood glucose 98. He is continued on albuterol, Symbicort, prednisone taper. Remains on oral diuretics. Heparin for DVT prophylaxis. Objective - Vital Signs Vital signs: Vital Signs Temp 97.6 F 07/02/23 07:15 Pulse 90 07/02/23 09:32 Resp 18 07/02/23 09:32 BP 119/77 07/02/23 07:15 Pulse Ox 95 07/02/23 09:09 FiO2 Intake & Output 07/01/23 07/02/23 07/02/23 18:59 06:59 18:59 Intake Total 815 236 Output Total 1400 Balance -585 236 Intake: Oral 815 236 Output: Urine 1400 Other: Voiding Method Toilet Urinal # Voids 1 1 # Bowel Movements 1 - Exam GENERAL EXAM: Alert, 72-year-old male, on 3 L nasal cannula, ambulating in room, in no apparent distress. HEAD: Normocephalic. EYES: Normal reaction of pupils, equal size. NOSE: Clear with pink turbinates. THROAT: No erythema or exudates. NECK: No masses, no JVD. CHEST: No chest wall deformity. LUNGS: Equal air entry with bilateral scattered rhonchi, diminished. CVS: S1 and S2 normal with no audible murmur, regular rhythm. ABDOMEN: No hepatosplenomegaly, normal bowel sounds, no guarding or rigidity. SPINE: No scoliosis or deformity SKIN: No rashes CENTRAL NERVOUS SYSTEM: No focal deficits, tone is normal in all 4 extremities. EXTREMITIES: There is no peripheral edema. No clubbing, no cyanosis. Peripheral pulses are intact. - Labs CBC & Chem 7: 06/27/23 02:58 07/01/23 06:23 Labs: Abnormal Lab Results - Last 24 Hours (Table) 07/01/23 07/01/23 Range/Units 17:54 20:23 POC Glucose (mg/dL) 117 H 160 H (70-110) mg/dL Assessment and Plan Assessment: Acute on chronic hypoxemic respiratory failure secondary to suspected bilateral pneumonia. Pro-calcitonin 0.10. Completed Levaquin. Follow-up chest x-ray showing improvement Acute exacerbation of chronic obstructive pulmonary disease secondary to above History of tobacco use History of severe/stage III COPD, with an FEV1 that's 34% of predicted History of hypertension History of laryngeal carcinoma, status post radiation treatments History of gastroesophageal reflux disease Right proximal humeral neck/head fracture History of right hip fracture, status post repair, seroma measuring 28 x 3 cm in size, postsurgical in nature involving the right hip Large hiatal hernia Left sided renal calculus Cholelithiasis without cholecystitis Poor functional performance based on the above mentioned multiple comorbidities Plan: The patient was seen and evaluated Labs and medications reviewed Cleared for discharge from the pulmonary standpoint Complete a prednisone taper. Continued on bronchodilators Follow-up in our office in 1 week I have personally seen and examined the patient, performed the documentation and the assessment and plan as written. Number of minutes spent on the visit: 10.
== END 2023-07-02 11:48 | disposition home health service (06) | DRG 193 ==
LOC: EC 19:40 → 3SCARD 21:37 → 6NMEDSUR 06-28 23:51
PROVIDERS: ADMIT Family Medicine; ATTEND Family Medicine
DX: J18.9 Pneumonia, unspecified organism (principal); J96.21 Acute and chronic respiratory failure with hypoxia; J96.22 Acute and chronic respiratory failure with hypercapnia; B37.0 Candidal stomatitis; J44.0 Chronic obstructive pulmonary disease with (acute) lower respiratory infection; J44.1 Chronic obstructive pulmonary disease with (acute) exacerbation; E87.1 Hypo-osmolality and hyponatremia; J45.901 Unspecified asthma with (acute) exacerbation; D63.8 Anemia in other chronic diseases classified elsewhere; M35.9 Systemic involvement of connective tissue, unspecified; I10 Essential (primary) hypertension; Z95.828 Presence of other vascular implants and grafts; K21.9 Gastro-esophageal reflux disease without esophagitis; K44.9 Diaphragmatic hernia without obstruction or gangrene; N20.0 Calculus of kidney; N40.0 Benign prostatic hyperplasia without lower urinary tract symptoms; E78.5 Hyperlipidemia, unspecified; H91.90 Unspecified hearing loss, unspecified ear; K80.20 Calculus of gallbladder without cholecystitis without obstruction; I49.3 Ventricular premature depolarization; I25.10 Atherosclerotic heart disease of native coronary artery without angina pectoris; F17.210 Nicotine dependence, cigarettes, uncomplicated; S42.213D Unspecified displaced fracture of surgical neck of unspecified humerus, subsequent encounter for fracture with routine healing; Y95 Nosocomial condition; Z99.81 Dependence on supplemental oxygen; Z79.82 Long term (current) use of aspirin; Z79.51 Long term (current) use of inhaled steroids; Z79.899 Other long term (current) drug therapy; Z87.01 Personal history of pneumonia (recurrent); Z92.3 Personal history of irradiation; Z86.79 Personal history of other diseases of the circulatory system; Z85.21 Personal history of malignant neoplasm of larynx; Z86.718 Personal history of other venous thrombosis and embolism; Z96.641 Presence of right artificial hip joint; Z88.0 Allergy status to penicillin; Z88.5 Allergy status to narcotic agent; Z88.8 Allergy status to other drugs, medicaments and biological substances
CPT/HCPCS: 36415; 71045; 80048; 80053; 80202; 82565; 83036; 83605; 83735; 83880; 84100; 84145; 84484; 85025; 85027; 85379; 85610; 85730; 87040; 87070; 87205; 93005; 94640; 94760; 96361; 96365; 96366; 96367; 96368; 96375; 96376; 99291

== ENCOUNTER 2023-07-13 14:26 | Inpatient (IN) | payer MEDICARE, OTHER ==
[2023-07-13] MEDS: ALBUTEROL NEBULIZED 2.5 MG/3 ML INHALATION STA (14:41)
[2023-07-13] MEDS: IPRATROPIUM 0.5 MG/2.5 ML NEBU INHALATION STA (14:41)
[2023-07-13 14:52] LABS: Anisocytosis Slight; Basophils % (A) 1 %; Eosinophils # (A) 0.2 k/uL (0-0.7); Eosinophils % (A) 3 %; HCT 31.1 % (39.0-53.0); Hypochromasia Slight; Lymphocytes % (A) 13 %; MCHC 32.2 g/dL (31.0-37.0); MCV 93.1 fL (80.0-100.0); Mean Platelet Volume 7.4; Monocytes # (A) 0.5 k/uL (0-1.0); Monocytes % (A) 6 %; Neutrophils # (A) 5.7 k/uL (1.3-7.7); Neutrophils % (A) 76 %; Platelet Count 313 k/uL (150-450); RBC 3.34 m/uL (4.30-5.90); RDW 16.7 % (11.5-15.5); WBC 7.5 k/uL (3.8-10.6)
[2023-07-13 14:55] LABS: VBG PH 7.42 (7.31-7.41)
[2023-07-13 15:00] LABS: INR 0.9 (<1.2); Partial Thromboplastin Time 22.1 sec (22.0-30.0); Prothrombin Time 10.4 sec (10.0-12.5)
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
[2023-07-13 15:05] LABS: ALT 16 U/L (4-49); African American GFR (CKD) >90 (>60 ml/min/1.73 sqM); Albumin 3.7 g/dL (3.5-5.0); Anion Gap 4 mmol/L; Blood Urea Nitrogen 20 mg/dL (9-20); Calcium 8.5 mg/dL (8.4-10.2); Carbon Dioxide 40 mmol/L (22-30); Chloride 92 mmol/L (98-107); Glucose 86 mg/dL (74-99); Non-African American GFR(CKD) >90 (>60 ml/min/1.73 sqM); Sodium 136 mmol/L (137-145); Total Bilirubin 0.7 mg/dL (0.2-1.3); Total Protein 6.5 g/dL (6.3-8.2)
[2023-07-13 15:14] LABS: NT-Pro-B-Type Natriuretic Pept 446 pg/mL
[2023-07-13 15:19] LABS: AST 26 U/L (17-59); Alkaline Phosphatase 60 U/L (38-126); Magnesium 1.8 mg/dL (1.6-2.3); Potassium 3.5 mmol/L (3.5-5.1)
--- NOTE | 2023-07-13 15:23 | XR ---
EXAMINATION TYPE: XR chest 1V portable DATE OF EXAM: 07/13/2023 COMPARISON: Chest x-ray June 28, 2023 HISTORY: Difficulty in breathing TECHNIQUE: Single frontal view of the chest is obtained. FINDINGS: Osseous structures remain demineralized. Age indeterminate displaced fracture right proxim al humerus redemonstrated. Cardiac silhouette size stable and upper limits of normal with atheroscler otic thoracic aorta redemonstrated. Chronic parenchymal changes bilaterally redemonstrated. No new fo ruby airspace opacity, pleural effusion, or pneumothorax is seen. IMPRESSION: Chronic changes without new acute pulmonary process identified on current study.
[2023-07-13] MEDS: methylPREDNISolone SOD SUCCI 125 MG/2 ML VIAL IV STA (15:27)
[2023-07-13] MEDS: HYDROmorphone 0.5 MG/0.5 ML SYRINGE IVP STA (15:28)
[2023-07-13] MEDS ORDERED: NALOXONE 0.4 MG/ML 1 ML VIAL IVP PRN (15:53)
[2023-07-13] MEDS ORDERED: IPRATROPIUM-ALBUTEROL 3 ML NEB INHALATION PRN (15:53)
[2023-07-13] MEDS: SODIUM CHLORIDE 0.9% 1,000 ML IV SCH (16:44)
[2023-07-13] MEDS: AZITHROMYCIN 500 MG in SODIUM CHLORIDE 0.9% 250 ML IVPB STA (17:14)
[2023-07-13] MEDS ORDERED: DEXTROSE 50% SYRINGE 50 ML IVP PRN ×2 (19:15)
[2023-07-13 20:13] LABS: Glucose,Whole Blood 177 mg/dL (70-110)
[2023-07-13] MEDS: IPRATROPIUM-ALBUTEROL 3 ML NEB INHALATION SCH (20:44)
[2023-07-13] MEDS: ACETAMINOPHEN TAB 325 MG TAB PO PRN (20:49)
[2023-07-13] MEDS: TAMSULOSIN 0.4 MG CAP.ER.24H PO SCH (20:49)
[2023-07-13] MEDS: methylPREDNISolone SOD SUCCI 125 MG/2 ML VIAL IV SCH (20:49)
[2023-07-13] MEDS: lisinopriL 20 MG TAB PO SCH (20:49)
[2023-07-13] MEDS: INSULIN ASPART (NovoLOG) 100 UNIT/ML VIAL SQ SCH (20:50)
[2023-07-13] MEDS: METOPROLOL SUCCINATE (ER) 25 MG TAB.ER.24H PO SCH (20:51)
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
[2023-07-14 06:17] LABS: Glucose,Whole Blood 162 mg/dL (70-110)
[2023-07-14] MEDS: PANTOPRAZOLE 40 MG/10 ML VIAL IVP SCH (08:10)
[2023-07-14] MEDS: FUROSEMIDE 40 MG TAB PO SCH (08:10)
[2023-07-14] MEDS: LIDOCAINE 4% PATCH TOPICAL SCH (10:01)
[2023-07-14 11:35] LABS: Glucose,Whole Blood 138 mg/dL (70-110)
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
--- NOTE | 2023-07-14 15:23 | P.PN ---
Subjective 72-year-old male, history of coronary artery disease, COPD, hypertension, hyperlipidemia, chronic hypoxic/hypercapnic respiratory failure, patient uses O2 at 2 L per nasal cannula, presents emergency Department for difficulty breathing. of two days durations has significant coughing , and chest pain in the middle felt like heaviness and increased with coughing Patient denies any change in urine or habits. No neurological complaints pt states he smokes 3 cigarettes per day ,no alcohol or illicit drugs vitals are stable , he is saturation 94% on 4 l/m via nasal cannula has mild leukocytosis , co2 is 40 in BMP , While rest of BMP is unremarkable, as well as LFT and INT 09 AND Negative troponin proBNP is 446 EKG; atiral fibrillation at a rate of 101 , i reviewed the EKG myself and looks suspicous for multifocal atrial tachycardia rather than a fib, it is still irregular rhythm 07/14/2023 Patient breathing is better patient to continue with IV salmeterol EKG showing PVCs versus multifocal atrial tachycardia, 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 Jack Discontinue IV fluids Objective - Vital Signs Vital signs: Vital Signs Temp 97.9 F 07/14/23 11:28 Pulse 90 07/14/23 12:08 Resp 20 07/14/23 11:28 BP 123/80 07/14/23 11:28 Pulse Ox 92 L 07/14/23 11:28 FiO2 Intake & Output 07/13/23 07/14/23 07/14/23 18:59 06:59 18:59 Intake Total 10 10 526 Output Total 500 725 Balance 10 -644 -199 Weight 72.575 kg 77.2 kg Intake: IV 10 10 20 Invasive Line 1 10 10 20 Oral 506 Output: Urine 500 725 Other: Voiding Method Toilet Toilet Toilet Urinal Urinal Urinal - Exam GENERAL: The patient is alert and oriented x3, not in any acute distress. Well developed, well nourished. HEENT: Pupils are round and equally reacting to light. EOMI. No scleral icterus. No conjunctival pallor. Normocephalic, atraumatic. No pharyngeal erythema. No thyromegaly. CARDIOVASCULAR: S1 and S2 present. No murmurs, rubs, or gallops. -PULMONARY: Chest is clear to auscultation, bilateral scattered wheezing , no crackles. ABDOMEN: Soft, nontender, nondistended, normoactive bowel sounds. No palpable organomegaly. MUSCULOSKELETAL: No joint swelling or deformity. EXTREMITIES: No cyanosis, clubbing, or pedal edema. NEUROLOGICAL: Gross neurological examination did not reveal any focal deficits. SKIN: No rashes. no petechiae. - Labs CBC & Chem 7: 07/13/23 14:35 07/13/23 14:35 Labs: Abnormal Lab Results - Last 24 Hours (Table) 07/13/23 07/14/23 07/14/23 Range/Units 20:11 06:16 11:33 POC Glucose (mg/dL) 177 H 162 H 138 H (70-110) mg/dL Assessment and Plan Assessment: Acute COPD exacerbation Acute on chronic hypoxic respiratory failure Comminuted right humerus fracture with impacted surgical neck Hyponatremia Chronic anemia Benign prostatic hypertrophy Hypertension Recent history of hip surgery status post [facility] Plan: Continue with IV Solu-Medrol On oxygen Continue with bronchodilator Pulmonary team consult cardiology team consult for abn ekg ( afib vs multifocal atrial tachycardia ). The patient for discharge Continue with symptomatic treatment Further recommendation based on the clinical course DVT prophylaxis aspirin twice a day GI prophylaxis Protonix
[2023-07-14 16:47] LABS: Glucose,Whole Blood 168 mg/dL (70-110)
[2023-07-14 20:06] LABS: Glucose,Whole Blood 129 mg/dL (70-110)
[2023-07-15 06:10] LABS: Glucose,Whole Blood 170 mg/dL (70-110)
[2023-07-15 11:58] LABS: Glucose,Whole Blood 114 mg/dL (70-110)
--- NOTE | 2023-07-15 12:18 | P.PN ---
Subjective Progress Note Date: 07/15/23 This is a 72-year-old gentleman recently completed subacute rehab, was back at home, mistakenly missed 2 days of Lasix upon setting up his new medication container, developed worsening shortness of breath, harsh cough, mostly nonproductive. Maintained on nebulized bronchodilators, steroids and Symbicort. Continues on 4 L nasal cannula O2 which is patient's baseline. Afebrile. Evaluated by cardiology, reporting sinus rhythm with PVCs, no atrial fibrillation and cleared patient for DC. Objective - Vital Signs Vital signs: Vital Signs Temp 97.8 F 07/15/23 08:11 Pulse 95 07/15/23 11:12 Resp 22 07/15/23 08:11 BP 112/61 07/15/23 08:11 Pulse Ox 91 L 07/15/23 08:11 FiO2 Intake & Output 07/14/23 07/15/23 07/15/23 18:59 06:59 18:59 Intake Total 644 20 Output Total 725 500 Balance -81 -480 Weight 77.2 kg Intake: IV 20 20 Invasive Line 1 20 20 Oral 624 Output: Urine 725 500 Other: Voiding Method Toilet Toilet Toilet Urinal Urinal Urinal - Exam - Exam GENERAL: Alert and oriented x3, Sitting up in bed, no acute distress. Hoarse. HEENT: Normocephalic, atraumatic ,pupils are round and equal, No conjunctiva pallor. CARDIOVASCULAR: S1 and S2 present. Systolic murmur. PULMONARY: Unlabored, equal air entry, coarse rhonchi with minimal expiratory wheezing with bilateral bases diminished ABDOMEN: Soft, nontender, nondistended, normoactive bowel sounds. No guarding, no rigidity. EXTREMITIES: No cyanosis, clubbing, or pedal edema. NEUROLOGICAL: Cranial nerves II through XII grossly intact. No focal deficits. Strength and sensation grossly intact. SKIN: No rashes. Warm and dry. - Labs CBC & Chem 7: 07/13/23 14:35 07/13/23 14:35 Labs: Abnormal Lab Results - Last 24 Hours (Table) 07/14/23 07/14/23 07/14/23 Range/Units 11:33 16:45 20:02 POC Glucose (mg/dL) 138 H 168 H 129 H (70-110) mg/dL 07/15/23 Range/Units 06:07 POC Glucose (mg/dL) 170 H (70-110) mg/dL Microbiology - Last 24 Hours (Table) 07/13/23 14:40 Blood Culture - Preliminary Blood 07/13/23 14:25 Blood Culture - Preliminary Blood 07/14/23 08:20 Gram Stain - Preliminary Sputum Assessment and Plan Assessment: Acute COPD exacerbation secondary to the above, reports when he was setting up his new medication container mistakenly missed his Lasix for 2 days. Chronic hypoxic respiratory failure secondary to the above, wears 4 L nasal cannula at home Muscle skeletal back pain, reproducible, related to coughing Recent Bilateral basal hospital acquired pneumonia with Serratia marcescens Recent Comminuted right humerus fracture with impacted surgical neck Recent history of hip surgery status post [facility] Gastroesophageal reflux disease Large hiatal hernia Left-sided renal calculus Hyponatremia Chronic anemia Benign prostatic hypertrophy Hypertension Ongoing nicotine dependence History of laryngeal carcinoma, status post radiation treatments. Plan: Continue on current medication regimen, ongoing and symptomatic treatment. Aggressive pulmonary toileting with nebulized bronchodilators, IV steroids, Symbicort. Sputum culture in progress. pain management with Tylenol and lidocaine patch. Increase ambulation as tolerated. Follow closely with pulmonary. Discharge planning in progress pending final DC recommendations and clearance per pulmonary. T final DC recommendations and clearance per pulmonaryhe impression and plan of care has been dictated as directed. : I performed a history and examination of this patient, discussed the same with the dictator. I agree with the dictator's note ,documented as a scribe. Any additional findings or plans will be noted.
--- NOTE | 2023-07-15 15:14 | P.PN ---
Subjective Progress Note Date: 07/15/23 Principal diagnosis: Acute exacerbation of COPD This is a very pleasant 72-year-old male patient with advanced COPD with an FEV1 of 34% predicted and the patient is currently oxygen dependent at 4 L/min nasal cannula. Is a chronic smoker continues to smoke cigarettes. The patient has had several hospitalization over the past few months. Back in 05/27/2023, the patient was hospitalized for right lower lobe pneumonia and it was quite extensive and this was felt to be hospital-acquired as the patient has had several prior hospitalization. He was covered with broad-spectrum antibiotics and ultimately was discharged home.Subsequently, he was readmitted on 06/24/2023 with another COPD exacerbation. He was discharged on 07/01/2023 to rehab and he made his home for around 10 days and he came in yesterday with worsening shortness of breath. In the emergency department, the patient had increased cough and congestion and he was also having chest discomfort radiating to his back mainly related to coughing and breathing. No reported pleurisy. The back was quite sore even to touch. No reported fever. No reported aspiration. A repeat chest x-ray was done that showed clearing of the previously described right lower lobe pulm infiltrate. The patient had no new acute cardiopulmonary process noted. Note that his sputum samples from 1 from 05/28/2023 showed Queenie albicans. Repeat sputum sample on 06/24/2023 was also negative. His current white cell count is at 7.7 with a hemoglobin of 10 and a platelet count of 330. Troponins are negative. proBNP level is not elevated at 446. The rest of the blood work shows a sodium level of 136, potassium of 3.5, bicarb is 40 with a BUN of 20 with a creatinine of 0.68. He is currently on 4 L of O2 nasal cannula which is his essential oxygen requirements even in outpatient basis. The patient is still smoking cigarettes. He is maintained on Symbicort on outpatient basis in addition to albuterol and ipratropium nebulized treatments and albuterol HFA to be used on an as-needed basis in addition to his oxygen th erapy. He has extensive number of comorbid conditions. He had a fall and recent comminuted right humeral fracture and this was treated conservatively and the patient also had a hip fracture for which she underwent a total hip arthroplasty. He has a large hiatal hernia. 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 Patient was reevaluated today on 07/15/2023, patient was readmitted apparently yesterday with acute exacerbation of COPD and he was seen by Dr. Gonzalez. Continues to have intermittent cough and wheezing, on physical examination he had mostly diminished breath sound bilaterally, no rhonchi no wheezes. Patient is a frequent readmission, for some reason the patient does well while inpatient, and he comes back to the hospital within few days and sometimes within a week. His last admission and discharge was 37, but nonetheless patient has been doing this for quite some time. Chest x-ray on this admission showed chronic changes without any acute pulmonary process, patient is now back again on bronchodilators, and steroids. CBC showed no evidence of leukocytosis his venous ABG was not impressive, his pCO2 was 67 with a pH of 7.42, I strongly believe the patient could have been managed possibly on outpatient basis without getting readmitted. Patient has his home O2 he also has bronchodilators and has been on steroids on outpatient basis. Objective - Vital Signs Vital signs: Vital Signs Temp 97.8 F 07/15/23 08:11 Pulse 76 07/15/23 14:59 Resp 24 07/15/23 11:29 BP 122/67 07/15/23 11:29 Pulse Ox 96 07/15/23 11:37 FiO2 Intake & Output 07/14/23 07/15/23 07/15/23 18:59 06:59 18:59 Intake Total 644 20 Output Total 725 500 400 Balance -81 -480 -400 Weight 77.2 kg Intake: IV 20 20 Invasive Line 1 20 20 Oral 624 Output: Urine 725 500 400 Other: Voiding Method Toilet Toilet Toilet Urinal Urinal Urinal - Exam General: The patient is awake and alert, in no distress, and does not appear acutely ill. On 4 L nasal cannula Skin: Skin is warm and dry and no rashes or lesions are noted. Eye: Pupils are equal, round and reactive to light, extra-ocular movements are intact; there is normal conjunctiva bilaterally. Ears, nose, mouth and throat: There are moist mucous membranes and no oral lesions. Neck: The neck is supple, there is no tenderness or JVD. Cardiovascular: There is a regular rate and rhythm. No murmur, rub or gallop is appreciated. Respiratory: Wheezing on forced expiratory maneuver only Gastrointestinal: Soft, non-distended, non-tender abdomen without masses or organomegaly noted. There is no rebound or guarding present. Bowel sounds are unremarkable. Back: There is no tenderness to palpation in the midline. There is no obvious deformity. Musculoskeletal: Normal ROM, no tenderness, There is no pedal edema. There is no calf tenderness or swelling. No cords were appreciated. Neurological: CN II-XII intact, Cranial nerves III through XII are intact. There are no obvious motor or sensory deficits. Coordination appears grossly intact. Speech is normal. Psychiatric: Cooperative, appropriate mood & affect, normal judgment. - Labs CBC & Chem 7: 07/13/23 14:35 07/13/23 14:35 Labs: Abnormal Lab Results - Last 24 Hours (Table) 07/14/23 07/14/23 07/15/23 Range/Units 16:45 20:02 06:07 POC Glucose (mg/dL) 168 H 129 H 170 H (70-110) mg/dL 07/15/23 Range/Units 11:54 POC Glucose (mg/dL) 114 H (70-110) mg/dL Microbiology - Last 24 Hours (Table) 07/13/23 14:40 Blood Culture - Preliminary Blood 07/13/23 14:25 Blood Culture - Preliminary Blood 07/14/23 08:20 Gram Stain - Preliminary Sputum Assessment and Plan Assessment: Impression: Acute exacerbation of chronic COPD Chronic hypoxic respiratory failure maintained on oxygen at 4 L nasal cannula History of ongoing tobacco use with nicotine addiction. History of severe/stage III COPD, with an FEV1 that's 34% of predicted. History of hypertension. History of hyperlipidemia. History of laryngeal carcinoma, status post radiation treatments. History of nephrolithiasis Hearing loss. History of gastroesophageal reflux disease. History of fall with right femoral neck fracture post unipolar hemiarthroplasty Large hiatal hernia Cholelithiasis without cholecystitis Diverticulosis Recommendation: Continue present bronchodilators/DuoNeb updrafts. Continue Symbicort Titrate oxygen accordingly Continue oral diuretics Resume home meds Consider discharge planning and the patient should have close follow-up with his mold washer shortly after discharge Continue to follow in the meantime Time with Patient: Less than 30
[2023-07-15 16:47] LABS: Glucose,Whole Blood 129 mg/dL (70-110)
[2023-07-15 19:53] LABS: Glucose,Whole Blood 203 mg/dL (70-110)
[2023-07-15] MEDS: SYMBICORT 160-4.5 MCG INHALER INHALATION SCH (20:48)
[2023-07-16 06:02] LABS: Glucose,Whole Blood 120 mg/dL (70-110)
[2023-07-16] MEDS: FLUTICASONE 50MCG/SPRAY NASAL 16GM EA NOSTRIL PRN (09:24)
[2023-07-16] MEDS: guaiFENesin 600 MG TABLET.ER PO SCH (09:24)
[2023-07-16 11:36] VITALS: BP 118/56; RESP 20; TEMP 98.1
[2023-07-16 12:08] LABS: Glucose,Whole Blood 128 mg/dL (70-110)
[2023-07-16 12:35] VITALS: PULSE 80
--- NOTE | 2023-07-16 13:53 | P.DS ---
Providers Date of admission: 07/13/23 15:54 Expected date of discharge: 07/16/23 Attending physician: Jamie Balderas Consults: 07/13/23 15:55 Consult Physician Routine Consulting Provider: Lisa Gonzalez Consult Reason/Comments: copd Do you want consulting provider notified?: Yes 07/13/23 21:51 Consult Physician Routine Consulting Provider: Massiel Doss Consult Reason/Comments: abd EKG, a fib vs Multifocal atrial tachycardia Do you want consulting provider notified?: Yes, Notify in am Primary care physician: Jamie Balderas Hospital Course: Final Diagnoses: Acute COPD exacerbation secondary to the above, reports when he was setting up his new medication container mistakenly missed his Lasix for 2 days. Chronic hypoxic respiratory failure secondary to the above, wears 4 L nasal cannula at home Muscle skeletal back pain, reproducible, related to coughing Recent Bilateral basal hospital acquired pneumonia with Serratia marcescens Recent Comminuted right humerus fracture with impacted surgical neck Recent history of hip surgery status post [facility] Gastroesophageal reflux disease Large hiatal hernia Left-sided renal calculus Hyponatremia Chronic anemia Benign prostatic hypertrophy Hypertension Ongoing nicotine dependence History of laryngeal carcinoma, status post radiation treatments. Hospital course:This is a 72-year-old gentleman recently completed subacute rehab, was back at home, mistakenly missed 2 days of Lasix upon setting up his new medication container, developed worsening shortness of breath, harsh cough, mostly nonproductive. Maintained on nebulized bronchodilators, steroids and Symbicort. Continues on 4 L nasal cannula O2 which is patient's baseline. Afebrile. Evaluated by cardiology, reporting sinus rhythm with PVCs, no atrial fibrillation and cleared patient for DC. Significant clinical improvement. Maintaining O2 sats in the 90s on 4 L nasal cannula. Cleared by pulmonary for discharge. Patient will be discharged home today in a stable condition with guarded prognosis. Spoke with patient's pharmacy, [facility], attempting to order him a long-acting beta agonist that will be covered by his insurance company. Pharmacy states patient has a $600 deductible that he needs to meet first. Patient advised to also check with his cable maker, PCP for samples. The impression and plan of care has been dictated as directed. : I performed a history and examination of this patient, discussed the same with the dictator. I agree with the dictator's note ,documented as a scribe. Any additional findings or plans will be noted. Patient Condition at Discharge: Stable Plan - Discharge Summary Discharge Rx Participant: Yes New Discharge Prescriptions: New Budesonide-Formot 160-4.5 Mcg [Symbicort 160-4.5 Mcg Inhaler] 2 puff INHALATION RT-BID #1 each guaiFENesin [Mucinex] 1,200 mg PO Q12HR tab predniSONE 10 mg PO DIRECTED #30 tab Continue lisinopriL [Zestril] 20 mg PO BID Albuterol Sulfate [Ventolin HFA] 2 puff INHALATION RT-Q6H PRN PRN Reason: Shortness Of Breath Tamsulosin HCl [Flomax] 0.4 mg PO HS Metoprolol Succinate (ER) [Toprol XL] 12.5 mg PO DAILY #30 tab Omeprazole 20 mg PO DAILY Ipratropium-Albuterol Nebulize [Duoneb 0.5 mg-3 mg/3 ml Soln] 3 ml INHALATION RT-QID #0 each Furosemide [Lasix] 40 mg PO DAILY tab Fluticasone Nasal Scenic [Flonase Nasal Scenic] 2 spray EA NOSTRIL DAILY ml Discharge Medication List lisinopriL [Zestril] 20 mg PO BID 03/04/19 [History] Albuterol Sulfate [Ventolin HFA] 2 puff INHALATION RT-Q6H PRN 03/06/20 [History] Tamsulosin HCl [Flomax] 0.4 mg PO HS 04/11/22 [History] Metoprolol Succinate (ER) [Toprol XL] 12.5 mg PO DAILY #30 tab 04/16/22 [Rx] Omeprazole 20 mg PO DAILY 05/02/22 [History] Furosemide [Lasix] 40 mg PO DAILY tab 06/07/23 [Rx] Fluticasone Nasal Scenic [Flonase Nasal Scenic] 2 spray EA NOSTRIL DAILY ml 07/01/23 [Rx] Ipratropium-Albuterol Nebulize [Duoneb 0.5 mg-3 mg/3 ml Soln] 3 ml INHALATION RT-QID #0 each 07/01/23 [Rx] Budesonide-Formot 160-4.5 Mcg [Symbicort 160-4.5 Mcg Inhaler] 2 puff INHALATION RT-BID #1 each 07/16/23 [Rx] guaiFENesin [Mucinex] 1,200 mg PO Q12HR tab 07/16/23 [Rx] predniSONE 10 mg PO DIRECTED #30 tab 07/16/23 [Rx] Follow up Appointment(s)/Referral(s): [facility], [NON-STAFF] - Antony Jack MD [STAFF PHYSICIAN] - 07/25/23 10:45 am (Heart doctor) Jamie Balderas DO [Primary Care Provider] - 07/23/23 10:20 am Lisa Gonzalez MD [STAFF PHYSICIAN] - 08/12/23 1:15 pm Patient Instructions/Handouts: COPD (Chronic Obstructive Pulmonary Disease) (DC) Activity/Diet/Wound Care/Special Instructions: Patient to follow-up with his cable maker in 1 to 2 weeks. 4 L nasal cannula O2 Rolling walker
--- NOTE | 2023-07-16 13:57 | P.PN ---
Subjective Progress Note Date: 07/16/23 Principal diagnosis: Acute exacerbation of COPD This is a very pleasant 72-year-old male patient with advanced COPD with an FEV1 of 34% predicted and the patient is currently oxygen dependent at 4 L/min nasal cannula. Is a chronic smoker continues to smoke cigarettes. The patient has had several hospitalization over the past few months. Back in 05/27/2023, the patient was hospitalized for right lower lobe pneumonia and it was quite extensive and this was felt to be hospital-acquired as the patient has had several prior hospitalization. He was covered with broad-spectrum antibiotics and ultimately was discharged home.Subsequently, he was readmitted on 06/24/2023 with another COPD exacerbation. He was discharged on 07/01/2023 to rehab and he made his home for around 10 days and he came in yesterday with worsening shortness of breath. In the emergency department, the patient had increased cough and congestion and he was also having chest discomfort radiating to his back mainly related to coughing and breathing. No reported pleurisy. The back was quite sore even to touch. No reported fever. No reported aspiration. A repeat chest x-ray was done that showed clearing of the previously described right lower lobe pulm infiltrate. The patient had no new acute cardiopulmonary process noted. Note that his sputum samples from 1 from 05/28/2023 showed Queenie albicans. Repeat sputum sample on 06/24/2023 was also negative. His current white cell count is at 7.7 with a hemoglobin of 10 and a platelet count of 330. Troponins are negative. proBNP level is not elevated at 446. The rest of the blood work shows a sodium level of 136, potassium of 3.5, bicarb is 40 with a BUN of 20 with a creatinine of 0.68. He is currently on 4 L of O2 nasal cannula which is his essential oxygen requirements even in outpatient basis. The patient is still smoking cigarettes. He is maintained on Symbicort on outpatient basis in addition to albuterol and ipratropium nebulized treatments and albuterol HFA to be used on an as-needed basis in addition to his oxygen th erapy. He has extensive number of comorbid conditions. He had a fall and recent comminuted right humeral fracture and this was treated conservatively and the patient also had a hip fracture for which she underwent a total hip arthroplasty. He has a large hiatal hernia. 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 Patient was reevaluated today on 07/15/2023, patient was readmitted apparently yesterday with acute exacerbation of COPD and he was seen by Dr. Gonzalez. Continues to have intermittent cough and wheezing, on physical examination he had mostly diminished breath sound bilaterally, no rhonchi no wheezes. Patient is a frequent readmission, for some reason the patient does well while inpatient, and he comes back to the hospital within few days and sometimes within a week. His last admission and discharge was 37, but nonetheless patient has been doing this for quite some time. Chest x-ray on this admission showed chronic changes without any acute pulmonary process, patient is now back again on bronchodilators, and steroids. CBC showed no evidence of leukocytosis his venous ABG was not impressive, his pCO2 was 67 with a pH of 7.42, I strongly believe the patient could have been managed possibly on outpatient basis without getting readmitted. Patient has his home O2 he also has bronchodilators and has been on steroids on outpatient basis. Patient was reevaluated today on 07/16/2023, patient is feeling better today, br eathing easier, less cough less wheezing less shortness of breath, patient stated to me that he feels much better that he could go home now. I will clear the patient for discharge, on physical examination he sounded fairly clear, no rhonchi no wheezes on physical exam, patient is on home O2, he is also on updrafts, and I believe the patient should have prednisone burst and taper on outpatient basis and should go back on his usual bronchodilators and inhalers. Objective - Vital Signs Vital signs: Vital Signs Temp 98.1 F 07/16/23 11:21 Pulse 80 07/16/23 12:25 Resp 20 07/16/23 11:21 BP 118/56 07/16/23 11:21 Pulse Ox 95 07/16/23 12:15 FiO2 Intake & Output 07/15/23 07/16/23 07/16/23 18:59 06:59 18:59 Intake Total 960 840 Output Total 400 700 Balance 560 -700 840 Weight 77.7 kg Intake: Oral 960 840 Output: Urine 400 700 Other: Voiding Method Toilet Toilet Toilet Urinal Urinal Urinal # Voids 1 3 - Exam General: The patient is awake and alert, in no distress, and does not appear acutely ill. On 4 L nasal cannula Skin: Skin is warm and dry and no rashes or lesions are noted. Eye: Pupils are equal, round and reactive to light, extra-ocular movements are intact; there is normal conjunctiva bilaterally. Ears, nose, mouth and throat: There are moist mucous membranes and no oral lesions. Neck: The neck is supple, there is no tenderness or JVD. Cardiovascular: There is a regular rate and rhythm. No murmur, rub or gallop is appreciated. Respiratory: Diminished breath sound bilaterally no rhonchi no wheezes Gastrointestinal: Soft, non-distended, non-tender abdomen without masses or organomegaly noted. There is no rebound or guarding present. Bowel sounds are unremarkable. Back: There is no tenderness to palpation in the midline. There is no obvious deformity. Musculoskeletal: Normal ROM, no tenderness, There is no pedal edema. There is no calf tenderness or swelling. No cords were appreciated. Neurological: CN II-XII intact, Cranial nerves III through XII are intact. T here are no obvious motor or sensory deficits. Coordination appears grossly intact. Speech is normal. Psychiatric: Cooperative, appropriate mood & affect, normal judgment. - Labs CBC & Chem 7: 07/13/23 14:35 07/13/23 14:35 Labs: Abnormal Lab Results - Last 24 Hours (Table) 07/15/23 07/15/23 07/16/23 Range/Units 16:45 19:51 06:00 POC Glucose (mg/dL) 129 H 203 H 120 H (70-110) mg/dL 07/16/23 Range/Units 12:07 POC Glucose (mg/dL) 128 H (70-110) mg/dL Microbiology - Last 24 Hours (Table) 07/14/23 08:20 Gram Stain - Final Sputum Sputum Culture - Final 07/13/23 14:40 Blood Culture - Preliminary Blood 07/13/23 14:25 Blood Culture - Preliminary Blood Assessment and Plan Assessment: Impression: Acute exacerbation of chronic COPD Chronic hypoxic respiratory failure maintained on oxygen at 4 L nasal cannula History of ongoing tobacco use with nicotine addiction. History of severe/stage III COPD, with an FEV1 that's 34% of predicted. History of hypertension. History of hyperlipidemia. History of laryngeal carcinoma, status post radiation treatments. History of nephrolithiasis Hearing loss. History of gastroesophageal reflux disease. History of fall with right femoral neck fracture post unipolar hemiarthroplasty Large hiatal hernia Cholelithiasis without cholecystitis Diverticulosis Recommendation: Considering the improvement, we will clear the patient to go home on his usual bronchodilators, updrafts, Symbicort, prednisone burst and taper, oxygen, Follow-up on outpatient basis Time with Patient: Less than 30
== END 2023-07-16 14:32 | disposition home or self-care (01) | DRG 190 ==
LOC: EC 14:26 → 3SCARD 15:54
PROVIDERS: ADMIT Family Medicine; ATTEND Family Medicine
DX: J44.1 Chronic obstructive pulmonary disease with (acute) exacerbation (principal); J96.21 Acute and chronic respiratory failure with hypoxia; J96.22 Acute and chronic respiratory failure with hypercapnia; E87.1 Hypo-osmolality and hyponatremia; I47.19 Other supraventricular tachycardia; K80.10 Calculus of gallbladder with chronic cholecystitis without obstruction; N17.9 Acute kidney failure, unspecified; J96.11 Chronic respiratory failure with hypoxia; Z99.81 Dependence on supplemental oxygen; K21.9 Gastro-esophageal reflux disease without esophagitis; K44.9 Diaphragmatic hernia without obstruction or gangrene; N40.0 Benign prostatic hyperplasia without lower urinary tract symptoms; Z96.649 Presence of unspecified artificial hip joint; Z92.3 Personal history of irradiation; Z87.442 Personal history of urinary calculi; Z85.21 Personal history of malignant neoplasm of larynx; Z82.49 Family history of ischemic heart disease and other diseases of the circulatory system; Z80.1 Family history of malignant neoplasm of trachea, bronchus and lung; Z79.899 Other long term (current) drug therapy; Z79.52 Long term (current) use of systemic steroids; E78.5 Hyperlipidemia, unspecified; F17.210 Nicotine dependence, cigarettes, uncomplicated; H91.90 Unspecified hearing loss, unspecified ear; I10 Essential (primary) hypertension; I25.10 Atherosclerotic heart disease of native coronary artery without angina pectoris; D64.9 Anemia, unspecified; I48.91 Unspecified atrial fibrillation; I49.3 Ventricular premature depolarization; Z87.19 Personal history of other diseases of the digestive system; Z87.01 Personal history of pneumonia (recurrent); Z91.81 History of falling; Z88.0 Allergy status to penicillin; Z88.5 Allergy status to narcotic agent; Z96.1 Presence of intraocular lens; Z98.42 Cataract extraction status, left eye; Z98.41 Cataract extraction status, right eye; N20.0 Calculus of kidney
CPT/HCPCS: 36415; 71045; 80053; 82803; 83036; 83605; 83735; 83880; 84484; 85025; 85610; 85730; 87040; 87070; 87205; 93005; 94640; 94760; 96365; 96375; 99291

== ENCOUNTER 2023-08-20 23:46 | Observation (INO) | payer MEDICARE, OTHER ==
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
[2023-08-21] MEDS: IPRATROPIUM-ALBUTEROL 3 ML NEB INHALATION STA (00:28)
[2023-08-21 00:29] LABS: ALT 9 U/L (4-49); AST 18 U/L (17-59); African American GFR (CKD) >90 (>60 ml/min/1.73 sqM); Albumin 3.1 g/dL (3.5-5.0); Alkaline Phosphatase 87 U/L (38-126); Blood Urea Nitrogen 11 mg/dL (9-20); Calcium 8.3 mg/dL (8.4-10.2); Chloride 95 mmol/L (98-107); Glucose 96 mg/dL (74-99); Magnesium 1.8 mg/dL (1.6-2.3); Non-African American GFR(CKD) >90 (>60 ml/min/1.73 sqM); Potassium 4.1 mmol/L (3.5-5.1); Sodium 136 mmol/L (137-145); Total Bilirubin 0.3 mg/dL (0.2-1.3); Total Protein 5.7 g/dL (6.3-8.2)
[2023-08-21 00:32] LABS: Basophils # (A) 0.1 k/uL (0-0.2); Basophils % (A) 1 %; Eosinophils # (A) 0.1 k/uL (0-0.7); Eosinophils % (A) 2 %; HCT 30.3 % (39.0-53.0); HGB 9.8 gm/dL (13.0-17.5); Hypochromasia Slight; Lymphocytes # (A) 1.4 k/uL (1.0-4.8); Lymphocytes % (A) 22 %; MCH 29.6 pg (25.0-35.0); MCHC 32.4 g/dL (31.0-37.0); MCV 91.5 fL (80.0-100.0); Mean Platelet Volume 8.7; Monocytes # (A) 0.6 k/uL (0-1.0); Monocytes % (A) 10 %; Neutrophils # (A) 3.9 k/uL (1.3-7.7); Neutrophils % (A) 62 %; Platelet Count 285 k/uL (150-450); RBC 3.31 m/uL (4.30-5.90); RDW 14.8 % (11.5-15.5); WBC 6.2 k/uL (3.8-10.6)
[2023-08-21 00:35] LABS: Anion Gap 5 mmol/L
[2023-08-21 00:37] LABS: NT-Pro-B-Type Natriuretic Pept 941 pg/mL; Partial Thromboplastin Time 20.7 sec (22.0-30.0); Prothrombin Time 10.8 sec (10.0-12.5)
[2023-08-21 00:46] LABS: Carbon Dioxide 36 mmol/L (22-30)
--- NOTE | 2023-08-21 01:35 | XR ---
EXAM: XR Chest, 2 Views CLINICAL HISTORY: ITS.REASON XR Reason: difficulty breathing TECHNIQUE: Frontal and lateral views of the chest. COMPARISON: No relevant prior studies available. IMPRESSION: Cement placement in the mid thoracic spine. Cardiomegaly. Mild vascular congestion.
[2023-08-21] MEDS ORDERED: NICOTINE GUM (POLACRILEX) 2 MG GUM BUCCAL PRN (02:06)
[2023-08-21] MEDS ORDERED: NALOXONE 0.4 MG/ML 1 ML VIAL IVP PRN (02:06)
[2023-08-21] MEDS: FUROSEMIDE 10 MG/ML 4 ML VIAL IV STA (03:53)
[2023-08-21] MEDS ORDERED: ALBUTEROL NEBULIZED 2.5 MG/3 ML INHALATION PRN (04:52)
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
[2023-08-21] MEDS: methylPREDNISolone SOD SUCCI 40 MG/ML 1 ML VIAL IV SCH (08:28)
[2023-08-21] MEDS: FUROSEMIDE 40 MG TAB PO SCH (08:30)
[2023-08-21] MEDS: IPRATROPIUM-ALBUTEROL 3 ML NEB INHALATION SCH (08:30)
[2023-08-21] MEDS ORDERED: predniSONE 20 MG TAB PO SCH (09:00)
[2023-08-21] MEDS ORDERED: DEXTROSE 50% SYRINGE 50 ML IVP PRN ×2 (10:06)
[2023-08-21] MEDS ORDERED: IPRATROPIUM-ALBUTEROL 3 ML NEB INHALATION SCH (12:00)
[2023-08-21] MEDS: SYMBICORT 160-4.5 MCG INHALER INHALATION SCH (12:05)
[2023-08-21 12:32] LABS: Glucose,Whole Blood 291 mg/dL (70-110)
[2023-08-21] MEDS: METOPROLOL SUCCINATE (ER) 25 MG TAB.ER.24H PO SCH (12:55)
[2023-08-21] MEDS: lisinopriL 20 MG TAB PO SCH (12:55)
[2023-08-21] MEDS: SENNOSIDES-DOCUSATE SODIUM 1 EACH TAB PO SCH (12:55)
[2023-08-21] MEDS: PANTOPRAZOLE 40 MG TABLET PO SCH (12:56)
[2023-08-21] MEDS: FLUTICASONE 50MCG/SPRAY NASAL 16GM EA NOSTRIL SCH (12:56)
[2023-08-21] MEDS: ASPIRIN 81 MG PO SCH (12:56)
[2023-08-21] MEDS: BENZONATATE 100 MG CAP PO PRN (12:57)
[2023-08-21] MEDS: INSULIN ASPART (NovoLOG) 100 UNIT/ML VIAL SQ SCH ×2 (12:59→18:01)
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
[2023-08-21] MEDS: INSULIN DETEMIR (LEVEMIR) 100 UNIT/ML SYR SQ SCH (16:10)
[2023-08-21] MEDS: ONDANSETRON 4 MG/2 ML VIAL IVP PRN (16:10)
[2023-08-21 17:20] LABS: Glucose,Whole Blood 98 mg/dL (70-110)
[2023-08-21] MEDS: SENNOSIDES-DOCUSATE SODIUM 1 EACH TAB PO ONE (19:59)
[2023-08-21] MEDS: ASPIRIN 81 MG ONE (19:59)
[2023-08-21] MEDS: DOCUSATE 100 MG CAP PO SCH (20:43)
[2023-08-21] MEDS: guaiFENesin 600 MG TABLET.ER PO SCH (20:43)
[2023-08-21] MEDS: TAMSULOSIN 0.4 MG CAP.ER.24H PO SCH (20:44)
[2023-08-21 20:54] LABS: Glucose,Whole Blood 250 mg/dL (70-110)
[2023-08-22 06:11] LABS: Glucose,Whole Blood 126 mg/dL (70-110)
[2023-08-22 11:08] LABS: Glucose,Whole Blood 129 mg/dL (70-110)
[2023-08-22 17:14] LABS: Glucose,Whole Blood 134 mg/dL (70-110)
--- NOTE | 2023-08-22 18:26 | P.PN ---
Subjective Progress Note Date: 08/22/23 I am seeing this patient in consultation today 08/21/2023 in the emergency room after he presented with difficulty in breathing despite several breathing treatments while at home. Patient is a 72-year-old white male with past medical history significant for advanced oxygen dependent COPD, with an FEV1 34% of predicted. He is oxygen dependent and wears 4 L/min nasal cannula at all times. He continues to smoke approximately 2 cigarettes/day. He has had multiple hospital readmissions for COPD, and was just discharged last month for the same. He follows in the pulmonary office with Dr. Gonzalez. Over the last several days he has been more dyspneic, with wheezing and chest tightness. He has had a minimally productive cough with clear sputum. Has some associated back pain which he attributes to coughing fits. It is reproducible. He denies any fevers, chills, chest pain. Denies sick contacts. Has been having episodes of nausea and vomiting for the last 3 days. There is some mild epigastric pain. Reports reduced appetite. Denies hematemesis, sher blood loss in stool, or melena. Chest x-ray on arrival does not show any focal infiltrates or evidence of pneumonia. There is some possible mild vascular congestion. CBC reviewed. No leukocytosis. Patient is chronically anemic, hemoglobin stable. BMP fairly unremarkable. LFTs not elevated. Troponin less than 0.012. NT proBNP 941. EKG shows normal sinus rhythm with frequent unifocal PVCs. No acute ST elevation or depressions. He is currently sitting up in bed, on 4 L/min nasal cannula, fairly comfortable. He does speak in 3-4 word phrases. He is afebrile. Vital signs are stable. On 08/22/2023, seen the patient for a follow-up. Slightly improved compared to yesterday. Less bronchospastic and wheezy. Less congested. Nausea has also subsided. The patient has no new labs from today. Remains on bronchodilators. Remains on steroids. He is on 40 mg IV Solu-Medrol every 8 hours. He is also on oral Lasix. Objective - Vital Signs Vital signs: Vital Signs Temp 97.1 F L 08/22/23 14:05 Pulse 73 08/22/23 15:47 Resp 17 08/22/23 14:05 BP 122/66 08/22/23 14:05 Pulse Ox 91 L 08/22/23 14:05 FiO2 Intake & Output 08/21/23 08/22/23 08/22/23 18:59 06:59 18:59 Intake Total 708 281 Output Total 466 772 9854 Balance -117 -275 -719 Weight 74.843 kg Intake: Oral 708 281 Output: Urine 525 067 0291 Other: # Voids 2 - Exam GENERAL EXAM: Alert, 72-year-old white male, laying on his left side in the stretcher, comfortable in no apparent distress. HEAD: Normocephalic and atraumatic EYES: Normal reaction of pupils, equal size. NOSE: Clear with pink turbinates. THROAT: No erythema or exudates. NECK: No masses, no JVD. CHEST: No chest wall deformity. LUNGS: Equal air entry with expiratory wheezes heard throughout. On 4 L/min nasal cannula. Speaks in 3-4 word phrases. CVS: S1 and S2 normal with no audible murmur, regular rhythm. No extra heart sounds ABDOMEN: No hepatosplenomegaly, active bowel sounds, no guarding or rigidity. SPINE: No scoliosis or deformity SKIN: No rashes CENTRAL NERVOUS SYSTEM: No focal deficits, tone is normal in all 4 extremities. EXTREMITIES: There is no peripheral edema, clubbing, or cyanosis. Peripheral pulses are intact. - Labs CBC & Chem 7: 08/21/23 00:10 08/21/23 00:10 Labs: Abnormal Lab Results - Last 24 Hours (Table) 08/21/23 08/22/23 08/22/23 Range/Units 20:53 06:10 11:07 POC Glucose (mg/dL) 250 H 126 H 129 H (70-110) mg/dL 08/22/23 Range/Units 17:12 POC Glucose (mg/dL) 134 H (70-110) mg/dL Assessment and Plan Assessment: Acute on chronic dyspnea, secondary to acute COPD exacerbation, chest x-ray does not show any focal infiltrates or evidence of pneumonia. Chronic hypoxemic respiratory failure, maintained on 4 L/min nasal cannula 24/12 Recent history of right lower lobe pneumonia, no clear-cut evidence on most recent chest x-ray Chronic ongoing tobacco dependence, down to 2 cigarettes/day History of severe COPD with an FEV1 34% of predicted History of hypertension History of hyperlipidemia History of BPH History of laryngeal carcinoma, status postradiation History of kidney stones History of GERD History of fall with right femoral neck fracture post hemiarthroplasty History of right proximal humeral neck/head fracture treated conservatively History of hiatal hernia History of diverticulosis Plan: No new complaints on today's evaluation the patient's condition is stable's, slightly improved slightly improved compared to yesterday we will continue the same treatment optimize p.o. for exacerbation. The patient will be treated with a combination of Symbicort as maintenance, DuoNeb updrafts [id number], IV Solu-Medrol 40 mg every 8 hours and the home medication will be resumed. Nausea is improved compared to yesterday w ill continue to follow production will be titrated to maintain saturation above 90%, currently on 4 L. Overall based on performance and functional status is extremely poor in this patient. High risk for readmissions.
[2023-08-22 20:30] LABS: Glucose,Whole Blood 179 mg/dL (70-110)
[2023-08-23 08:19] VITALS: BP 119/74; RESP 18; TEMP 98.5
[2023-08-23 08:34] LABS: Glucose,Whole Blood 130 mg/dL (70-110)
[2023-08-23 12:14] LABS: Glucose,Whole Blood 128 mg/dL (70-110)
[2023-08-23 13:07] VITALS: PULSE 82
--- NOTE | 2023-08-23 16:44 | P.PN ---
Subjective Progress Note Date: 08/23/23 I am seeing this patient in consultation today 08/21/2023 in the emergency room after he presented with difficulty in breathing despite several breathing treatments while at home. Patient is a 72-year-old white male with past medical history significant for advanced oxygen dependent COPD, with an FEV1 34% of predicted. He is oxygen dependent and wears 4 L/min nasal cannula at all times. He continues to smoke approximately 2 cigarettes/day. He has had multiple hospital readmissions for COPD, and was just discharged last month for the same. He follows in the pulmonary office with Dr. Gonzalez. Over the last several days he has been more dyspneic, with wheezing and chest tightness. He has had a minimally productive cough with clear sputum. Has some associated back pain which he attributes to coughing fits. It is reproducible. He denies any fevers, chills, chest pain. Denies sick contacts. Has been having episodes of nausea and vomiting for the last 3 days. There is some mild epigastric pain. Reports reduced appetite. Denies hematemesis, sher blood loss in stool, or melena. Chest x-ray on arrival does not show any focal infiltrates or evidence of pneumonia. There is some possible mild vascular congestion. CBC reviewed. No leukocytosis. Patient is chronically anemic, hemoglobin stable. BMP fairly unremarkable. LFTs not elevated. Troponin less than 0.012. NT proBNP 941. EKG shows normal sinus rhythm with frequent unifocal PVCs. No acute ST elevation or depressions. He is currently sitting up in bed, on 4 L/min nasal cannula, fairly comfortable. He does speak in 3-4 word phrases. He is afebrile. Vital signs are stable. On 08/22/2023, seen the patient for a follow-up. Slightly improved compared to yesterday. Less bronchospastic and wheezy. Less congested. Nausea has also subsided. The patient has no new labs from today. Remains on bronchodilators. Remains on steroids. He is on 40 mg IV Solu-Medrol every 8 hours. He is also on oral Lasix. On today's evaluation of 08/23/2023, the patient is feeling well. No specific complaints. Less bronchospastic and wheezy. No nausea or emesis. He feels that his overall respiratory status is back to his baseline. No other active GI complaints for now. In terms of his blood work, no recent blood work from today. Nevertheless the patient is awake and alert and has no specific complaints for now. Objective - Vital Signs Vital signs: Vital Signs Temp 98.5 F 08/23/23 07:00 Pulse 77 08/23/23 09:24 Resp 18 08/23/23 09:24 BP 119/74 08/23/23 07:00 Pulse Ox 91 L 08/23/23 09:09 FiO2 Intake & Output 08/22/23 08/23/23 08/23/23 18:59 06:59 18:59 Intake Total 281 360 Output Total 1350 600 Balance -1069 -600 360 Intake: Oral 281 360 Output: Urine 1350 600 - Exam GENERAL EXAM: Alert, 72-year-old white male, laying on his left side in the stretcher, comfortable in no apparent distress. HEAD: Normocephalic and atraumatic EYES: Normal reaction of pupils, equal size. NOSE: Clear with pink turbinates. THROAT: No erythema or exudates. NECK: No masses, no JVD. CHEST: No chest wall deformity. LUNGS: Equal air entry with expiratory wheezes heard throughout. On 4 L/min nasal cannula. Speaks in 3-4 word phrases. CVS: S1 and S2 normal with no audible murmur, regular rhythm. No extra heart sounds ABDOMEN: No hepatosplenomegaly, active bowel sounds, no guarding or rigidity. SPINE: No scoliosis or deformity SKIN: No rashes CENTRAL NERVOUS SYSTEM: No focal deficits, tone is normal in all 4 extremities. EXTREMITIES: There is no peripheral edema, clubbing, or cyanosis. Peripheral pulses are intact. - Labs CBC & Chem 7: 08/21/23 00:10 08/21/23 00:10 Labs: Abnormal Lab Results - Last 24 Hours (Table) 08/22/23 08/22/23 08/23/23 Range/Units 17:12 20:29 08:32 POC Glucose (mg/dL) 134 H 179 H 130 H (70-110) mg/dL Assessment and Plan Assessment: Acute on chronic dyspnea, secondary to acute COPD exacerbation, chest x-ray does not show any focal infiltrates or evidence of pneumonia. Chronic hypoxemic respiratory failure, maintained on 4 L/min nasal cannula 24/12 Recent history of right lower lobe pneumonia, no clear-cut evidence on most recent chest x-ray Chronic ongoing tobacco dependence, down to 2 cigarettes/day History of severe COPD with an FEV1 34% of predicted History of hypertension History of hyperlipidemia History of BPH History of laryngeal carcinoma, status postradiation History of kidney stones History of GERD History of fall with right femoral neck fracture post hemiarthroplasty History of right proximal humeral neck/head fracture treated conservatively History of hiatal hernia History of diverticulosis Plan: Clinically stable and the patient is improved and the patient can be discharged home on his routine medication in addition to a prednisone burst taper. Smoking cessation counseling was done Follow-up outpatient
--- NOTE | 2023-08-23 17:39 | P.DS ---
Providers Date of admission: 08/21/23 02:06 Expected date of discharge: 08/22/23 Attending physician: Jamie Balderas Consults: 08/21/23 02:06 Consult Physician Routine Consulting Provider: Lisa Gonzalez Consult Reason/Comments: COPD Do you want consulting provider notified?: Yes, Notify in am Primary care physician: Jamie Balderas Hospital Course: Final Diagnosis: Acute COPD exacerbation in a patient with history of severe COPD Chronic hypoxic respiratory failure secondary to the above, wears 4 L nasal cannula at home Recent inpatient admission secondary to acute COPD exacerbation , prior bilateral basal hospital acquired pneumonia with Serratia marcescens History of Comminuted right humerus fracture with impacted surgical neck History of hip surgery status post [facility] Gastroesophageal reflux disease Large hiatal hernia Left-sided renal calculus Hyponatremia Chronic anemia Benign prostatic hypertrophy Hypertension Ongoing nicotine dependence History of laryngeal carcinoma, status post radiation treatments. Hospital course:This is a 72-year-old gentleman with past medical history significant for recent inpatient admission for COPD exacerbation, advanced COPD, chronic hypoxic respiratory failure wears 4 L nasal cannula O2 at home, nicotine dependence ,CAD, hypertension, hyperlipidemia and multiple other medical issues presented to the ER with complaints of progressive worsening dyspnea accompanied by productive cough with clear sputum. Complains of back pain with coughing, reproducible-appears muscloskeletal. Denies fever or chills. Chest x-ray report ed possible mild vascular congestion. proBNP 941. Afebrile normal WBC, lactic acid 1. Hemoglobin 9.8, platelets 285, INR 1. Sodium 136, potassium 4.1, bicarb 36, BUN 11, creatinine 0.63. Troponin negative x 1. Currently maintaining O2 sats in the 90s on 4 L nasal cannula (baseline). Aggressive pulmonary toileting, maintan nebulized bronchodilators, IV steroids, Symbicort. Smoking sensation reinforced. Levemir insulin plus Premeal NovoLog insulin in addition to NovoLog sliding scale ordered. Close monitoring of Accu- Cheks for tight blood sugar control. increase activity as tolerated. Pulmonary recommendations noted and appreciated. Prognosis guarded given multiple complex medical iisues. Frequent admissions, palliative care may be appropriate. Significant clinical improvement. Patient will be discharged home today in a stable condition with guarded prognosis pending final DC recommendations and clearance per pulmonary. The impression and plan of care has been dictated as directed. : I performed a history and examination of this patient, discussed the same with the dictator. I agree with the dictator's note ,documented as a scribe. Any additional findings or plans will be noted. Patient Condition at Discharge: Stable Plan - Discharge Summary New Discharge Prescriptions: New Nicotine Gum (Polacrilex) [Nicorette] 4 mg BUCCAL Q2HR PRN pieceofgum PRN Reason: Nicotine Cravings predniSONE 10 mg PO DIRECTED #30 tab Continue lisinopriL [Zestril] 20 mg PO BID Albuterol Sulfate [Ventolin HFA] 2 puff INHALATION RT-Q6H PRN PRN Reason: Shortness Of Breath Tamsulosin HCl [Flomax] 0.4 mg PO HS Metoprolol Succinate (ER) [Toprol XL] 12.5 mg PO DAILY #30 tab Omeprazole 20 mg PO DAILY Ipratropium-Albuterol Nebulize [Duoneb 0.5 mg-3 mg/3 ml Soln] 3 ml INHALATION RT-QID #0 each Budesonide-Formot 160-4.5 Mcg [Symbicort 160-4.5 Mcg Inhaler] 2 puff INHALATION RT-BID #1 each Docusate [Colace] 100 mg PO HS Sennosides/Docusate Sodium [Senna Plus 8.6-50 mg Tablet] 1 tab PO BID Furosemide [Lasix] 40 mg PO DAILY tab Fluticasone Nasal [place] [Flonase Nasal [place]] 2 spray EA NOSTRIL DAILY ml guaiFENesin [Mucinex] 1,200 mg PO Q12HR tab Aspirin EC [Ecotrin Low Dose] 81 mg PO BID Discharge Medication List lisinopriL [Zestril] 20 mg PO BID 03/04/19 [History] Albuterol Sulfate [Ventolin HFA] 2 puff INHALATION RT-Q6H PRN 03/06/20 [History] Tamsulosin HCl [Flomax] 0.4 mg PO HS 04/11/22 [History] Metoprolol Succinate (ER) [Toprol XL] 12.5 mg PO DAILY #30 tab 04/16/22 [Rx] Omeprazole 20 mg PO DAILY 05/02/22 [History] Furosemide [Lasix] 40 mg PO DAILY tab 06/07/23 [Rx] Fluticasone Nasal [place] [Flonase Nasal [place]] 2 spray EA NOSTRIL DAILY ml 07/01/23 [Rx] Ipratropium-Albuterol Nebulize [Duoneb 0.5 mg-3 mg/3 ml Soln] 3 ml INHALATION RT-QID #0 each 07/01/23 [Rx] Budesonide-Formot 160-4.5 Mcg [Symbicort 160-4.5 Mcg Inhaler] 2 puff INHALATION RT-BID #1 each 07/16/23 [Rx] guaiFENesin [Mucinex] 1,200 mg PO Q12HR tab 07/16/23 [Rx] Aspirin EC [Ecotrin Low Dose] 81 mg PO BID 08/21/23 [History] Docusate [Colace] 100 mg PO HS 08/21/23 [History] Sennosides/Docusate Sodium [Senna Plus 8.6-50 mg Tablet] 1 tab PO BID 08/21/23 [History] Nicotine Gum (Polacrilex) [Nicorette] 4 mg BUCCAL Q2HR PRN pieceofgum 08/22/23 [Rx] predniSONE 10 mg PO DIRECTED #30 tab 08/22/23 [Rx] Follow up Appointment(s)/Referral(s): Jamie Balderas DO [Primary Care Provider] - 1-2 days (please call for an appointment tomorrow or Saturday ) Patient Instructions/Handouts: Heart Failure (GEN), COPD (Chronic Obstructive Pulmonary Disease) (GEN), Hypoxia (GEN) Discharge Disposition: HOME SELF-CARE
== END 2023-08-23 14:02 | disposition home or self-care (01) ==
LOC: EC 23:46 → 6NMEDSUR 08-21 02:06
PROVIDERS: ADMIT Family Medicine; ATTEND Family Medicine
DX: J44.1 Chronic obstructive pulmonary disease with (acute) exacerbation (principal); J96.11 Chronic respiratory failure with hypoxia; I11.0 Hypertensive heart disease with heart failure; I50.9 Heart failure, unspecified; I49.3 Ventricular premature depolarization; E87.3 Alkalosis; Z99.81 Dependence on supplemental oxygen; I25.10 Atherosclerotic heart disease of native coronary artery without angina pectoris; E78.5 Hyperlipidemia, unspecified; J96.12 Chronic respiratory failure with hypercapnia; E87.1 Hypo-osmolality and hyponatremia; D64.9 Anemia, unspecified; N40.0 Benign prostatic hyperplasia without lower urinary tract symptoms; K21.9 Gastro-esophageal reflux disease without esophagitis; K44.9 Diaphragmatic hernia without obstruction or gangrene; K57.90 Diverticulosis of intestine, part unspecified, without perforation or abscess without bleeding; N20.0 Calculus of kidney; F17.210 Nicotine dependence, cigarettes, uncomplicated; Z11.52 Encounter for screening for COVID-19; Z11.59 Encounter for screening for other viral diseases; Z71.6 Tobacco abuse counseling; Z79.51 Long term (current) use of inhaled steroids; Z79.52 Long term (current) use of systemic steroids; Z79.899 Other long term (current) drug therapy; Z88.0 Allergy status to penicillin; Z88.5 Allergy status to narcotic agent; Z88.8 Allergy status to other drugs, medicaments and biological substances; Z87.01 Personal history of pneumonia (recurrent); Z87.442 Personal history of urinary calculi; Z85.21 Personal history of malignant neoplasm of larynx; Z92.3 Personal history of irradiation; Z96.641 Presence of right artificial hip joint
CPT/HCPCS: 96376 ×3; 96375; 96374; 99285; 36415; 94640 ×5; 94760 ×3; 93005; 83880; 80053; 83605; 83735; 84484; 85025; 85610; 85730; 87636; 71046; G0378 ×3; J1940; J2920 ×3; J2405

== ENCOUNTER 2023-09-04 12:46 | Inpatient (IN) | payer MEDICARE, OTHER ==
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
[2023-09-04] MEDS: TERBUTALINE 1 MG/ML VIAL SQ STA (13:05)
[2023-09-04] MEDS: IPRATROPIUM-ALBUTEROL 3 ML NEB INHALATION STA (13:18)
[2023-09-04 13:44] LABS: ALT 9 U/L (4-49); AST 12 U/L (17-59); African American GFR (CKD) >90 (>60 ml/min/1.73 sqM); Albumin 2.5 g/dL (3.5-5.0); Alkaline Phosphatase 75 U/L (38-126); Anion Gap -3 mmol/L; Blood Urea Nitrogen 19 mg/dL (9-20); Carbon Dioxide 39 mmol/L (22-30); Chloride 104 mmol/L (98-107); Glucose 91 mg/dL (74-99); Non-African American GFR(CKD) >90 (>60 ml/min/1.73 sqM); Potassium 4.2 mmol/L (3.5-5.1); Sodium 140 mmol/L (137-145); Total Bilirubin 0.4 mg/dL (0.2-1.3); Total Protein 4.9 g/dL (6.3-8.2)
[2023-09-04 13:54] LABS: Basophils % (A) 0 %; Eosinophils # (A) 0.2 k/uL (0-0.7); Eosinophils % (A) 2 %; HCT 27.2 % (39.0-53.0); Hypochromasia Moderate; Lymphocytes # (A) 0.8 k/uL (1.0-4.8); Lymphocytes % (A) 7 %; MCH 28.5 pg (25.0-35.0); MCHC 30.6 g/dL (31.0-37.0); MCV 93.1 fL (80.0-100.0); Mean Platelet Volume 8.9; Monocytes # (A) 1.4 k/uL (0-1.0); Monocytes % (A) 13 %; Neutrophils # (A) 8.2 k/uL (1.3-7.7); Neutrophils % (A) 75 %; Platelet Count 258 k/uL (150-450); RBC 2.93 m/uL (4.30-5.90); RDW 14.9 % (11.5-15.5); WBC 10.9 k/uL (3.8-10.6)
[2023-09-04 13:58] LABS: HGB 8.3 gm/dL (13.0-17.5)
[2023-09-04] MEDS: cefTRIAXone IN SWFI 1,000 MG/10 ML SYRINGE IVP STA (14:09)
--- NOTE | 2023-09-04 14:09 | XR ---
EXAMINATION TYPE: XR chest 2V DATE OF EXAM: 09/04/2023 1:53 PM CLINICAL INDICATION:Male, 73 years old with history of Fever; COMPARISON: Chest radiographs from 08/21/2023. TECHNIQUE: XR chest 2V Frontal and lateral views of the chest. FINDINGS: Lungs/Pleura: Multifocal airspace opacities. No evidence of pneumothorax or pleural effusion. Pulmonary vascularity: Unremarkable. Heart/mediastinum: Cardiomediastinal silhouette is enlarged and stable. Atherosclerotic calcificatio ns are seen in the aorta. Musculoskeletal: No acute osseous pathology. IMPRESSION: Multifocal airspace opacities concerning for pneumonia.
[2023-09-04 14:41] LABS: INR 0.9 (<1.2); Partial Thromboplastin Time 26.3 sec (22.0-30.0); Prothrombin Time 10.4 sec (10.0-12.5)
[2023-09-04] MEDS ORDERED: NALOXONE 0.4 MG/ML 1 ML VIAL IVP PRN (16:40)
[2023-09-04] MEDS: methylPREDNISolone SOD SUCCI 125 MG/2 ML VIAL IV SCH (17:19)
[2023-09-04] MEDS: AMOXIC-POT CLAV 875-125MG 1 EACH TAB PO SCH (20:02)
[2023-09-04] MEDS: IPRATROPIUM-ALBUTEROL 3 ML NEB INHALATION SCH (20:29)
[2023-09-05] MEDS ORDERED: NICOTINE GUM (POLACRILEX) 2 MG GUM BUCCAL PRN (04:00)
[2023-09-05] MEDS: PANTOPRAZOLE 40 MG TABLET PO SCH (06:24)
[2023-09-05] MEDS: FLUTICASONE 50MCG/SPRAY NASAL 16GM EA NOSTRIL SCH (08:36)
[2023-09-05] MEDS: guaiFENesin 600 MG TABLET.ER PO SCH (08:40)
[2023-09-05] MEDS: ASPIRIN 81 MG PO SCH (08:40)
[2023-09-05] MEDS: SENNOSIDES-DOCUSATE SODIUM 1 EACH TAB PO SCH (08:40)
[2023-09-05] MEDS: METOPROLOL SUCCINATE (ER) 25 MG TAB.ER.24H PO SCH (08:40)
[2023-09-05] MEDS: lisinopriL 20 MG TAB PO SCH (08:40)
[2023-09-05] MEDS: FUROSEMIDE 40 MG TAB PO SCH (08:40)
[2023-09-05] MEDS ORDERED: DEXTROSE 50% SYRINGE 50 ML IVP PRN ×2 (14:47)
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
[2023-09-05] MEDS: INSULIN DETEMIR (LEVEMIR) 100 UNIT/ML SYR SQ SCH (16:52)
[2023-09-05 16:57] LABS: Glucose,Whole Blood 190 mg/dL (70-110)
[2023-09-05] MEDS: INSULIN ASPART (NovoLOG) 100 UNIT/ML VIAL SQ SCH (17:23)
[2023-09-05 20:46] LABS: Glucose,Whole Blood 147 mg/dL (70-110)
[2023-09-05] MEDS: FORMOTEROL FUMARATE 20 MCG/2 ML NEBU INHALATION SCH (21:14)
[2023-09-05] MEDS: BUDESONIDE 1 MG/2 ML NEBU INHALATION SCH (21:14)
[2023-09-05] MEDS: DOCUSATE 100 MG CAP PO SCH (21:38)
[2023-09-05] MEDS: TAMSULOSIN 0.4 MG CAP.ER.24H PO SCH (21:38)
[2023-09-06] MEDS: IPRATROPIUM-ALBUTEROL 3 ML NEB INHALATION PRN (03:56)
[2023-09-06 06:04] LABS: Glucose,Whole Blood 159 mg/dL (70-110)
--- NOTE | 2023-09-06 07:53 | CDI ---
Date: 09/06/2023 From: Lynda Lobo Phone: [phone] Admit Date: 09/04/2023 04:41:00 PM Patient Name: Adam Olivo Visit Number: [id number] Discharge Date: ATTENTION: The Clinical Documentation Specialists (CDI) and [facility] Coding Staff appreciate your assistance in clarifying documentation. Please respond to the clarification below the line at the bottom and electronically sign. The CDI & [facility] Coding staff will review the response and follow-up if needed. Please note: Queries are made part of the Legal Health Record. If you have any questions, please contact the author of this message via ITS. Dr. Shan Price: Acute on chronic hypoxic and hypercapnic Respiratory Failure is documented in the Pulmonary consult on 09/04 which may lack sufficient clinical evidence/support in the medical record. Additional clarification is requested. Patient history/risk factors: CAD, COPD on 4 L nasal cannula at home, Laryngeal cancer (recently completed radiation) who presented with progressive SOB and non-productive cough Clinical Indicators: 09/03 Triage VS: 118/68, 97.8, 70, 30, 91% on 4 L nasal cannula 09/03-09/05 SaO2 range: 90% (09/05 on 3 L nasal cannula)-99% (09/03-on 5 L nasal cannula) 09/03 Oxygen 4-5 liters nasal cannula, the 3 liters on 09/05 09/04 H&P, Assessment and Plan: "Chronic hypoxic respiratory failure" 09/04 Pulmonary consult, Assessment and Plan: "Acute on chronic hypoxic and hypercapnic respiratory failure, secondary to COPD exacerbation, possibly complicated by pneumonia, and/or CHF." Plan: "The patient does not appear to have much in the way of any respiratory distress, The patient is currently on 4 L of oxygen, which is what he uses at home." 09/03 Chest X Ray, Impression: "Multifocal airspace opacities concerning for pneumonia." Treatment: 4-5 L Nasal cannula Pulmonary consult Duoneb inhalation once 09/03, then PRN [id number] once 09/05 Terbutaline 0.25mg subq once 09/03 Rocephin 1000mg IV once 09/03 After work up and study, please clarify which diagnosis is most appropriate? [ ] Acute on Chronic hypoxic/hypercapnic respiratory failure as evidenced by [ x] Chronic hypoxic respiratory failure [ ] Unable to determine [ ] Other, please specify MTDD
--- NOTE | 2023-09-06 08:08 | CDI ---
Date: From: Lynda Loob Phone: [phone] Admit Date: 09/04/2023 04:41:00 PM Patient Name: Adam Olivo Visit Number: [id number] Discharge Date: ATTENTION: The Clinical Documentation Specialists (CDI) and [facility] Coding Staff appreciate your assistance in clarifying documentation. Please respond to the clarification below the line at the bottom and electronically sign. The CDI & [facility] Coding staff will review the response and follow-up if needed. Please note: Queries are made part of the Legal Health Record. If you have any questions, please contact the author of this message via ITS. Dr. Jamie Balderas: There is documentation of the concern of pneumonia in the H&P 09/04. Additional clarification is requested. History/Risk Factors: CAD, COPD on 4 L nasal cannula at home, Laryngeal cancer (recently completed radiation) who presented with progressive SOB and non- productive cough Clinical Indicators: 09/03 Triage VS: 118/68, 97.8, 70, 30, 91% on 4 L nasal cannula 09/04 H&P, HPI: "Chest x-ray reporting multifocal airspace opacities, concerning for pneumonia. Maintained on Augmentin nebulized bronchodilators, IV steroids. Afebrile." 09/04 Pulmonary consult, Assessment and Plan: "Acute on chronic hypoxic and hypercapnic respiratory failure, secondary to COPD exacerbation, possibly complicated by pneumonia, and/or CHF." Plan: "The patient does not appear to have much in the way of any respiratory distress, The patient is currently on 4 L of oxygen, which is what he uses at home." 09/08 IM PN, Assessment: "Acute COPD exacerbation in a patient with a history of severe COPD, Multifocal hospital acquired pneumonia, procalcitonin elevated" 09/03 WBC: 10.9 09/04 Procalcitonin: 0.11 09/03 Chest X Ray, Impression: "Multifocal airspace opacities concerning for pneumonia." Treatment: 4-5 L Nasal cannula Pulmonary consult Duoneb inhalation once 09/03, then PRN [id number] once 4 Terbutaline 0.25mg subq once 09/03 Rocephin 1000mg IV once 09/03 Augmentin 875-125mg oral [id number] x10 doses- start 09/03 Can you please clarify the pneumonia? [ x] Pneumonia is ruled in [ ] Pneumonia is ruled out [ ] Other, please specify [ ] Unable to determine MTDD
[2023-09-06] MEDS: ESCITALOPRAM 10 MG TAB PO SCH (09:29)
[2023-09-06] MEDS: FLUCONAZOLE 150 MG TAB PO SCH (09:30)
[2023-09-06 11:26] LABS: Glucose,Whole Blood 128 mg/dL (70-110)
--- NOTE | 2023-09-06 12:18 | P.PN ---
Subjective Progress Note Date: 09/06/23 Principal diagnosis: COPD exacerbation, pneumonia. Pulmonary consult dated September 05, 2023. 73-year-old male with a history of severe COPD. His FEV1 is 34% of predicted. He also has chronic hypoxemic respiratory failure and uses home O2 at 4 L. Other medical history includes coronary disease, DVT, GERD, deafness, hyperlipidemia, hypertension, and laryngeal carcinoma. The patient's primary care physician is Dr. Balderas. He sees my partner Dr. Gonzalez for his COPD. The patient has been hospitalized, June, July, August, and now in September,. He has been in and out of [facility], for rehabilitation, and physical therapy. He presents to the emergency department on September 04, 2023, with increasing shortness of breath, and he apparently has been having d ifficulty with his breathing for 3 days prior to admission. The patient does continue to smoke cigarettes. He denied any chest pain or palpitations. He denied any fever or chills. He did have a bit of a cough, not producing much phlegm. He denies any GI or complaints. Patient's chest x-ray appears to show some infiltrates, particularly in the right lung, middle lobe and lower lobe. There may also be some infiltrates in the left lung as well. Current laboratory data includes a white count 10.9, hemoglobin 8.3, hematocrit 27.2, and a platelet count of 258,000. Coagulation studies were normal. Sodium 140, potassium 4.2, chloride 104, CO2 39, BUN 19, creatinine 0.58. Albumin is 2.5. N-terminal proBNP is 3130. He tested negative for influenza A, B, RSV, and coronavirus. Progress note dated September 06, 2023. 73-year-old male seen yesterday in consultation for COPD exacerbation and possible pneumonia. He has severe COPD with an FEV1 that is 34% of predicted. Unfortunately, despite numerous counseling attempts, the patient does continue to smoke. Currently, he is on 4 L of oxygen, which is what he uses at home. His procalcitonin level is only minimally elevated at 0.11. He is currently on Augmentin. He is not receiving any IV fluids. No new labs today other than a g lucose of 128. Objective - Vital Signs Vital signs: Vital Signs Temp 97.6 F 09/06/23 08:12 Pulse 80 09/06/23 11:28 Resp 18 09/06/23 08:12 BP 117/63 09/06/23 08:12 Pulse Ox 96 09/06/23 08:55 FiO2 Intake & Output 09/05/23 09/06/23 09/06/23 18:59 06:59 18:59 Output Total 300 Balance -300 Output: Urine 300 Other: Voiding Method Urinal Urinal # Voids 3 # Bowel Movements 0 - Exam No acute distress, oriented 3. Currently on nasal O2 at 4 L. HEENT examination is grossly unremarkable. Mucous membranes are moist. No oral lesions. Neck supple. Full range of motion. No adenopathy thyromegaly or neck vein distention. Cardiovascular examination reveals regular rhythm rate. S1-S2 normal. No S3 or S4. No discernible murmur noted. Heart rate 80 bpm. Lungs reveal diffuse coarse rhonchi, and expiratory wheezes. No crackles. Breath sounds equal bilaterally but diminished throughout. Abdomen soft bowel sounds are heard. No masses or tenderness. Extremities are intact. No cyanosis clubbing or edema. Skin is without rash or lesion. Neurologic examination is brief but nonfocal. - Labs CBC & Chem 7: 09/04/23 13:17 09/04/23 13:17 Labs: Abnormal Lab Results - Last 24 Hours (Table) 09/05/23 09/05/23 09/05/23 Range/Units 16:00 16:55 20:42 POC Glucose (mg/dL) 190 H 147 H (70-110) mg/dL Procalcitonin 0.11 H (0.02-0.09) ng/mL 09/06/23 09/06/23 Range/Units 06:03 11:25 POC Glucose (mg/dL) 159 H 128 H (70-110) mg/dL Procalcitonin (0.02-0.09) ng/mL Microbiology - Last 24 Hours (Table) 09/04/23 13:20 Blood Culture - Preliminary Blood 09/04/23 13:35 Blood Culture - Preliminary Blood Assessment and Plan Assessment: Acute on chronic hypoxemic and hypercapnic respiratory failure, secondary to COPD exacerbation, possibly complicated by pneumonia, and/or CHF. History of ongoing tobacco use with nicotine addiction, in a patient with severe COPD. FEV1 34% of predicted. History of DVT. History of gastroesophageal reflux disease. History of hypertension. History of hyperlipidemia. History of coronary artery disease. Ongoing tobacco use/nicotine addiction. History of laryngeal carcinoma, S/P radiation therapy. History of multiple other medical conditions and comorbidities. Plan: Plan dated September 05, 2023. The patient was seen, interviewed, and examined, in room 452. The patient does not appear to have much in the way of any respiratory distress. There is no audible wheezing, use of accessory muscles, or conversational dyspnea. The jj conrad is currently on 4 L of oxygen, which is what he uses at home. The patient's chest x-ray shows some bilateral infiltrates, which may be consistent with pneumonia, and/or heart failure. The patient's N-terminal proBNP was a bit elevated. The patient should be on DuoNebs 4 times daily and as needed, Pulmicort 1 mg, mixed with formoterol 20 mcg, twice a day, and Solu-Medrol. We should check a procalcitonin level. Troponin should also be done if not already ordered. The patient is counseled about the importance of smoking cessation. Despite having an FEV1 of only 34%, the patient does continue to smoke cigarettes. Also, the patient has a history of laryngeal carcinoma. Prognosis is poor. Plan dated September 06, 2023. The patient is seen today in room 452. He feels a bit better than he did yesterday. He continues on Augmentin 875 twice a day, budesonide breathing treatments, formoterol breathing treatments, albuterol sulfate and ipratropium bromide breathing treatments, and Solu-Medrol. Labs, x-rays, medications are reviewed. We will continue to follow make recommendations along the way. The patient's procalcitonin level was minimally elevated at 0.11. We will continue to follow. The patient has been counseled numerous times about the importance of smoking cessation. Time with Patient: Less than 30
--- NOTE | 2023-09-06 12:19 | P.PN ---
Subjective Progress Note Date: 09/06/23 H&P Date: 09/05/23 Chief Complaint: Progressive shortness of breath, nonproductive cough This is a 73-year-old gentleman with past medical history significant for recent inpatient admission for COPD exacerbation-discharged on 08/22/2023, advanced COPD, chronic hypoxic respiratory failure wears 4 L nasal cannula O2 at home, nicotine dependence ,CAD, hypertension, hyperlipidemia and multiple other medical issues presented to the ER with complaints of progressive worsening dyspnea accompanied by nonproductive cough. Chest x-ray reporting multifocal airspace opacities, concerning for pneumonia. Maintained on Augmentin nebulized bronchodilators, IV steroids. Afebrile, WBC 10.9. Viral studies negative. 09/06/2023 Maintained on nebulized bronchodilators, Pulmicort, formoterol, IV steroids and Augmentin. Procalcitonin 0.11. blood sugars controlled. H emoglobin A1c 5.2. Expiratory wheezing, maintaining O2 sats in the high 80s to 90s on 4 L nasal cannula. afebrile. Objective - Vital Signs Vital signs: Vital Signs Temp 97.6 F 09/06/23 08:12 Pulse 80 09/06/23 11:28 Resp 18 09/06/23 08:12 BP 117/63 09/06/23 08:12 Pulse Ox 96 09/06/23 08:55 FiO2 Intake & Output 09/05/23 09/06/23 09/06/23 18:59 06:59 18:59 Output Total 300 Balance -300 Output: Urine 300 Other: Voiding Method Urinal Urinal # Voids 3 # Bowel Movements 0 - Exam GENERAL: Alert and oriented x3, resting in bed, no acute distress. HEENT: Normocephalic, atraumatic ,pupils are round and equal, No conjunctiva pallor. CARDIOVASCULAR: S1 and S2 present. Systolic murmur. PULMONARY: Unlabored, equal air entry, expiratory wheezing throughout with bilateral bases diminished ABDOMEN: Soft, nontender, nondistended, normoactive bowel sounds. No guarding, no rigidity. EXTREMITIES: No cyanosis, clubbing, or pedal edema. NEUROLOGICAL: Cranial nerves II through XII grossly intact. No focal deficits. Strength and sensation grossly intact. SKIN: No rashes. Warm and dry. - Labs CBC & Chem 7: 09/04/23 13:17 09/04/23 13:17 Labs: Abnormal Lab Results - Last 24 Hours (Table) 09/05/23 09/05/23 09/05/23 Range/Units 16:00 16:55 20:42 POC Glucose (mg/dL) 190 H 147 H (70-110) mg/dL Procalcitonin 0.11 H (0.02-0.09) ng/mL 09/06/23 09/06/23 Range/Units 06:03 11:25 POC Glucose (mg/dL) 159 H 128 H (70-110) mg/dL Procalcitonin (0.02-0.09) ng/mL Microbiology - Last 24 Hours (Table) 09/04/23 13:20 Blood Culture - Preliminary Blood 09/04/23 13:35 Blood Culture - Preliminary Blood Assessment and Plan Assessment: Acute COPD exacerbation in a patient with history of severe COPD, multifocal hospital-acquired pneumonia, procalcitonin elevated, possible mild component of acute diastolic CHF exacerbation, proBNP 3130. Chronic hypoxic respiratory failure secondary to the above, wears 4 L nasal cannula at home Recent inpatient admission secondary to acute COPD exacerbation , prior suzette ateral basal hospital acquired pneumonia with Serratia marcescens History of Comminuted right humerus fracture with impacted surgical neck History of hip surgery status post [facility] Gastroesophageal reflux disease Large hiatal hernia Left-sided renal calculus Hyponatremia Chronic anemia Benign prostatic hypertrophy Hypertension Ongoing nicotine dependence History of laryngeal carcinoma, status post radiation treatments. Plan:Continue on current medication regimen ,monitoring and symptomatic akil atment. Maintain aggressive pulmonary toileting, nebulized bronchodilators, IV steroids, Symbicort. Tight blood sugar control, close monitoring of Accu-Cheks. Lexapro added to med regimen for complaints of depression. Diflucan x 2 doses for complaints of dry mouth, sore throat. Smoking sensation reinforced. increase activity as tolerated. Maintain supportive care. Prognosis guarded given multiple complex medical issues. The impression and plan of care has been dictated as directed. : I performed a history and examination of this patient, discussed the same with the dictator. I agree with the dictator's note ,documented as a scribe. Any additional findings or plans will be noted.
[2023-09-06 16:36] LABS: Glucose,Whole Blood 152 mg/dL (70-110)
[2023-09-06 20:45] LABS: Glucose,Whole Blood 136 mg/dL (70-110)
[2023-09-07] MEDS: HYDROcodone/APAP 5-325MG 1 EACH TAB PO PRN (01:16)
[2023-09-07 05:59] LABS: Glucose,Whole Blood 152 mg/dL (70-110)
[2023-09-07 11:48] LABS: Glucose,Whole Blood 138 mg/dL (70-110)
--- NOTE | 2023-09-07 12:52 | P.PN ---
Subjective Progress Note Date: 09/07/23 This is a 73-year-old gentleman with past medical history significant for recent inpatient admission for COPD exacerbation-discharged on 08/22/2023, advanced COPD, chronic hypoxic respiratory failure wears 4 L nasal cannula O2 at home, nicotine dependence ,CAD, hypertension, hyperlipidemia and multiple other medical issues presented to the ER with complaints of progressive worsening dyspnea accompanied by nonproductive cough. Chest x-ray reporting multifocal airspace opacities, concerning for pneumonia. Maintained on Augmentin nebulized bronchodilators, IV steroids. Afebrile, WBC 10.9. Viral studies negative. 09/06/2023 Maintained on nebulized bronchodilators, Pulmicort, formoterol, IV steroids and Augmentin. Procalcitonin 0.11. blood sugars controlled. Hemoglobin A1c 5.2. Expiratory wheezing, maintaining O2 sats in the high 80s to 90s on 4 L nasal cannula. afebrile. 09/06. Patient seen and examined.Vital signs this morning show temperature 97.9, heart rate 66, blood pressure 136/78, currently on 4 L of oxygen. Still complaining of shortness of breath at rest, complaining of wheezing. REVIEW OF SYSTEMS: CONSTITUTIONAL: No fever, no malaise,. CARDIOVASCULAR: No chest pain, no palpitations, no syncope. PULMONARY: As mentioned above GASTROINTESTINAL: No diarrhea, no nausea, no vomiting, no abdominal pain. NEUROLOGICAL: No headaches, no weakness, PHYSICAL EXAMINATION: GENERAL: The patient is alert and oriented x3, not in any acute distress. Well developed, well nourished. HEENT: Pupils are round and equally reacting to light. EOMI. No scleral icterus. No conjunctival pallor. Normocephalic, atraumatic. No pharyngeal erythema. No thyromegaly. CARDIOVASCULAR: S1 and S2 present. No murmurs, rubs, or gallops. PULMONARY: Good air entry bilaterally, expiratory wheeze audible bilaterally ABDOMEN: Soft, nontender, nondistended, normoactive bowel sounds. No palpable organomegaly. MUSCULOSKELETAL: No joint swelling or deformity. EXTREMITIES: No cyanosis, clubbing, or pedal edema. NEUROLOGICAL: Gross neurological examination did not reveal any focal deficits. SKIN: No rashes. Assessment and plan Acute COPD exacerbation in a patient with history of severe COPD, multifocal hospital-acquired pneumonia, procalcitonin elevated, possible mild component of acute diastolic CHF exacerbation, proBNP 3130. Chronic hypoxic respiratory failure secondary to the above, wears 4 L nasal cannula at home Recent inpatient admission secondary to acute COPD exacerbation , prior bilateral basal hospital acquired pneumonia with Serratia marcescens History of Comminuted right humerus fracture with impacted surgical neck History of hip surgery status post [facility] Gastroesophageal reflux disease Large hiatal hernia Left-sided renal calculus Hyponatremia Chronic anemia Benign prostatic hypertrophy Hypertension Ongoing nicotine dependence History of laryngeal carcinoma, status post radiation treatments. Monitor vital signs Monitor CBC Monitor CMP Continue telemetry monitoring Encourage use of incentive spirometer Continue oxygen supplementation Continue IV Solu-Medrol Continue breathing treatments Continue Augmentin Blood sugar levels, continue current insulin regimen Continue lisinopril, Toprol, Pulmonary following Labs and medication were reviewed.. Continue same treatment. Continue with symptomatic treatment. Resume home medication. Monitor labs and vitals. DVT and GI prophylaxis. Further recommendations as per clinical course of the patient Dictation was produced using [email or web address] dictation software. please excuse any grammatical, word or spelling errors. Objective - Vital Signs Vital signs: Vital Signs Temp 97.9 F 09/07/23 07:50 Pulse 68 09/07/23 08:07 Resp 18 09/07/23 07:50 BP 136/78 09/07/23 07:50 Pulse Ox 97 09/07/23 07:50 FiO2 Intake & Output 09/06/23 09/07/23 09/07/23 18:59 06:59 18:59 Intake Total 850 Output Total 800 550 Balance -800 850 -550 Intake: Oral 850 Output: Urine 800 550 Other: Voiding Method Urinal # Voids 3 4 - Labs CBC & Chem 7: 09/04/23 13:17 09/04/23 13:17 Labs: Abnormal Lab Results - Last 24 Hours (Table) 09/06/23 09/06/23 09/06/23 Range/Units 11:25 16:35 20:44 POC Glucose (mg/dL) 128 H 152 H 136 H (70-110) mg/dL 09/07/23 Range/Units 05:57 POC Glucose (mg/dL) 152 H (70-110) mg/dL Microbiology - Last 24 Hours (Table) 09/04/23 13:20 Blood Culture - Preliminary Blood 09/04/23 13:35 Blood Culture - Preliminary Blood
--- NOTE | 2023-09-07 12:56 | P.PN ---
Subjective Progress Note Date: 09/07/23 73-year-old male with a history of severe COPD. His FEV1 is 34% of predicted. He also has chronic hypoxemic respiratory failure and uses home O2 at 4 L. Other medical history includes coronary disease, DVT, GERD, deafness, hyperlipidemia, hypertension, and laryngeal carcinoma. The patient's primary [facility] physician is Dr. Balderas. He sees my partner Dr. Gonzalez for his COPD. The patient has been hospitalized, June, July, August, and now in September,. He has been in and out of [facility], for rehabilitation, and physical therapy. He presents to the emergency department on September 04, 2023, with increasing shortness of breath, and he apparently has been having difficulty with his breathing for 3 days prior to admission. The patient does continue to smoke cigarettes. He denied any chest pain or palpitations. He denied any fever or chills. He did have a bit of a cough, not producing much phlegm. He denies any GI or complaints. Patient's chest x-ray appears to show some infiltrates, particularly in the right lung, middle lobe and lower lobe. There may also be some infiltrates in the left lung as well. Current laboratory data includes a white count 10.9, hemoglobin 8.3, hematocrit 27.2, and a platelet count of 258,000. Coagulation studies were normal. Sodium 140, potassium 4.2, chloride 104, CO2 39, BUN 19, creatinine 0.58. Albumin is 2.5. N-terminal proBNP is 3130. He tested negative for influenza A, B, RSV, and coronavirus. The patient is seen today September 07, 2023 in follow-up on the regular medical floor. He is currently resting comfortably in bed. Awake and alert in no acute distress. He is maintaining O2 saturations in the 90s on 4 L/min per nasal cannula. No IV fluids. He is continued on DuoNeb inhalations, Pulmicort and Perforomist inhalations, Solu-Medrol. Antibiotics in the form of Augmentin. Procalcitonin 0.11. Blood cultures are pending. Glucose 152. Objective - Vital Signs Vital signs: Vital Signs Temp 97.9 F 09/07/23 07:50 Pulse 72 09/07/23 11:38 Resp 18 09/07/23 08:00 BP 136/78 09/07/23 07:50 Pulse Ox 97 09/07/23 07:50 FiO2 Intake & Output 09/06/23 09/07/23 09/07/23 18:59 06:59 18:59 Intake Total 850 Output Total 800 550 Balance -800 850 -550 Intake: Oral 850 Output: Urine 800 550 Other: Voiding Method Urinal Urinal # Voids 3 4 - Exam GENERAL EXAM: Alert, pleasant, disheveled, 73-year-old male, on 4 L nasal cannula, comfortable in no apparent distress. HEAD: Normocephalic. EYES: Normal reaction of pupils, equal size. NOSE: Clear with pink turbinates. THROAT: No erythema or exudates. NECK: No masses, no JVD. CHEST: No chest wall deformity. LUNGS: Equal air entry with few scattered rhonchi, end expiratory wheeze, diminished. CVS: S1 and S2 normal with no audible murmur, regular rhythm. ABDOMEN: No hepatosplenomegaly, normal bowel sounds, no guarding or rigidity. SPINE: No scoliosis or deformity SKIN: No rashes CENTRAL NERVOUS SYSTEM: No focal deficits, tone is normal in all 4 extremities. EXTREMITIES: There is no peripheral edema. No clubbing, no cyanosis. Peripheral pulses are intact. - Labs CBC & Chem 7: 09/04/23 13:17 09/04/23 13:17 Labs: Abnormal Lab Results - Last 24 Hours (Table) 09/06/23 09/06/23 09/07/23 Range/Units 16:35 20:44 05:57 POC Glucose (mg/dL) 152 H 136 H 152 H (70-110) mg/dL 09/07/23 Range/Units 11:46 POC Glucose (mg/dL) 138 H (70-110) mg/dL Microbiology - Last 24 Hours (Table) 09/04/23 13:20 Blood Culture - Preliminary Blood 09/04/23 13:35 Blood Culture - Preliminary Blood Assessment and Plan Assessment: Acute on chronic hypoxemic and hypercapnic respiratory failure, secondary to COPD exacerbation, possibly complicated by pneumonia, and/or CHF. Procalcitonin 0.11. proBNP 3130. History of ongoing tobacco use with nicotine addiction, in a patient with severe COPD. FEV1 34% of predicted History of DVT History of gastroesophageal reflux disease History of hypertension History of hyperlipidemia History of coronary artery disease Ongoing tobacco use/nicotine addiction History of laryngeal carcinoma, S/P radiation therapy History of multiple other medical conditions and comorbidities Plan: The patient was seen and evaluated Labs and medications reviewed Continue bronchodilators, steroids Continue Augmentin Continue diuretics Titrate down the FiO2 as tolerated Follow-up chest x-ray in a.m. We will continue to follow I have personally seen and examined the patient, performed the documentation and the assessment and plan as written. Number of minutes spent on the visit: 10.
[2023-09-07 16:47] LABS: Glucose,Whole Blood 112 mg/dL (70-110)
[2023-09-07 21:18] LABS: Glucose,Whole Blood 205 mg/dL (70-110)
[2023-09-08 06:48] LABS: Glucose,Whole Blood 151 mg/dL (70-110)
--- NOTE | 2023-09-08 07:56 | XR ---
EXAMINATION TYPE: XR chest 1V portable DATE OF EXAM: 09/08/2023 HISTORY: Shortness of breath. COMPARISON: 09/04/2023 TECHNIQUE: Single view of the chest is submitted. FINDINGS: Demonstrated are scattered senescent parenchymal change. There is no evidence for focal infiltrate. Pulmonary venous congestion with scattered interstitial pr ominence persists essentially unchanged. Continued cardiomegaly. Hilar and mediastinal structures are within normal limits. Degenerative changes are seen of the dorsal spine. IMPRESSION: 1. Pulmonary venous congestion with scattered interstitial prominence persists essentially unchanged . Continued cardiomegaly.
[2023-09-08 09:51] LABS: Basophils # (A) 0 X 10*3/uL (0.00-0.10); Basophils % (A) 0 %; Eosinophils # (A) 0 X 10*3/uL (0.04-0.35); Eosinophils % (A) 0 %; HCT 23.4 % (39.6-50.0); Lymphocytes # (A) 0.23 X 10*3/uL (0.90-5.00); Lymphocytes % (A) 4.5 %; MCH 28.2 pg (27.0-32.0); MCHC 29.9 g/dL (32.0-37.0); MCV 94.4 FL (80.0-97.0); Mean Platelet Volume 10.7 FL (9.5-12.2); Monocytes # (A) 0.19 X 10*3/uL (0.20-1.00); Monocytes % (A) 3.7 %; NRBC Per 100 WBC 0 X 10*3/uL (0.00-0.01); Neutrophils # (A) 4.55 X 10*3/uL (1.80-7.70); Neutrophils % (A) 89.1 %; Platelet Count 261 X 10*3/uL (140-440); RBC 2.48 X 10*6/uL (4.40-5.60); RDW 14.6 % (11.5-14.5); WBC 5.11 X 10*3/uL (4.50-10.00)
[2023-09-08 09:54] LABS: BUN/Creat Ratio 39.33 Ratio (12.00-20.00); Blood Urea Nitrogen 23.6 mg/dL (9.0-27.0); Chloride 97 mmol/L (96-109); Glucose 128 mg/dL (70-110); Potassium 4.1 mmol/L (3.5-5.5); Sodium 139 mmol/L (135-145)
[2023-09-08 09:55] LABS: ALT 9 U/L (10-49); AST 11 U/L (14-35); Albumin 2.9 g/dL (3.8-4.9); Albumin/Globulin Ratio 1.81 Ratio (1.60-3.17); Alkaline Phosphatase 53 U/L (41-126); Calcium 7.8 mg/dL (8.7-10.3); Carbon Dioxide 38.6 mmol/L (21.6-31.8); Globulin 1.6 g/dL (1.6-3.3); Total Bilirubin <0.2 mg/dL (0.3-1.2); Total Protein 4.5 g/dL (6.2-8.2)
--- NOTE | 2023-09-08 11:58 | P.PN ---
Subjective Progress Note Date: 09/08/23 73-year-old male with a history of severe COPD. His FEV1 is 34% of predicted. He also has chronic hypoxemic respiratory failure and uses home O2 at 4 L. Other medical history includes coronary disease, DVT, GERD, deafness, hyperlipidemia, hypertension, and laryngeal carcinoma. The patient's primary [facility] physician is Dr. Balderas. He sees my partner Dr. Gonzalez for his COPD. The patient has been hospitalized, June, July, August, and now in September,. He has been in and out of [facility], for rehabilitation, and physical therapy. He presents to the emergency department on September 04, 2023, with increasing shortness of breath, and he apparently has been having difficulty with his breathing for 3 days prior to admission. The patient does continue to smoke cigarettes. He denied any chest pain or palpitations. He denied any fever or chills. He did have a bit of a cough, not producing much phlegm. He denies any GI or complaints. Patient's chest x-ray appears to show some infiltrates, particularly in the right lung, middle lobe and lower lobe. There may also be some infiltrates in the left lung as well. Current laboratory data includes a white count 10.9, hemoglobin 8.3, hematocrit 27.2, and a platelet count of 258,000. Coagulation studies were normal. Sodium 140, potassium 4.2, chloride 104, CO2 39, BUN 19, creatinine 0.58. Albumin is 2.5. N-terminal proBNP is 3130. He tested negative for influenza A, B, RSV, and coronavirus. The patient is seen today September 07, 2023 in follow-up on the regular medical floor. He is currently resting comfortably in bed. Awake and alert in no acute distress. He is maintaining O2 saturations in the 90s on 4 L/min per nasal cannula. No IV fluids. He is continued on DuoNeb inhalations, Pulmicort and Perforomist inhalations, Solu-Medrol. Antibiotics in the form of Augmentin. Procalcitonin 0.11. Blood cultures are pending. Glucose 152. The patient is seen today September 08, 2023 in follow-up on the regular medical floor. He is currently awake and alert in no acute distress. Feeling better each day. Less short of breath. Less cough and congestion. He is maintaining O2 saturations in the 90s on 4 L/min per nasal cannula. Chest x-ray is showing continued pulmonary venous congestion with scattered interstitial prominence. Continued cardiomegaly. Blood cultures revealed no growth. White count 5.1. H emoglobin 7.0. Platelets 261. Sodium 139. Potassium 4.1. Bicarb 39. BUN 24. Creatinine 0.6. Glucose 128. He is continued on DuoNeb inhalations, Pulmicort and Perforomist inhalations, Mucinex, Solu-Medrol. Remains on oral diuretics. Empiric antibiotics in the form of Augmentin. Objective - Vital Signs Vital signs: Vital Signs Temp 98.3 F 09/08/23 07:40 Pulse 84 09/08/23 09:09 Resp 18 09/08/23 07:40 BP 125/74 09/08/23 07:40 Pulse Ox 94 L 09/08/23 08:49 FiO2 Intake & Output 09/07/23 09/08/23 09/08/23 18:59 06:59 18:59 Output Total 1450 575 Balance -1450 -575 Output: Urine 1450 575 Other: Voiding Method Urinal Urinal - Exam GENERAL EXAM: Alert, pleasant, 73-year-old male, resting in bed, on 4 L nasal cannula, comfortable in no apparent distress. HEAD: Normocephalic. EYES: Normal reaction of pupils, equal size. NOSE: Clear with pink turbinates. THROAT: No erythema or exudates. NECK: No masses, no JVD. CHEST: No chest wall deformity. LUNGS: Equal air entry with few scattered rhonchi, end expiratory wheeze, diminished. CVS: S1 and S2 normal with no audible murmur, regular rhythm. ABDOMEN: No hepatosplenomegaly, normal bowel sounds, no guarding or rigidity. SPINE: No scoliosis or deformity SKIN: No rashes CENTRAL NERVOUS SYSTEM: No focal deficits, tone is normal in all 4 extremities. EXTREMITIES: There is no peripheral edema. No clubbing, no cyanosis. Peripheral pulses are intact. - Labs CBC & Chem 7: 09/08/23 05:23 09/08/23 05:23 Labs: Abnormal Lab Results - Last 24 Hours (Table) 09/07/23 09/07/23 09/08/23 Range/Units 16:46 21:17 05:23 RBC 2.48 L (4.40-5.60) X 10*6/uL Hgb 7.0 L (13.0-17.0) g/dL Hct 23.4 L (39.6-50.0) % MCHC 29.9 L (32.0-37.0) g/dL RDW 14.6 H (11.5-14.5) % Immature Gran # 0.14 H (0.00-0.04) X 10*3/uL Lymphocytes # 0.23 L (0.90-5.00) X 10*3/uL Monocytes # 0.19 L (0.20-1.00) X 10*3/uL Eosinophils # 0 L (0.04-0.35) X 10*3/uL Carbon Dioxide (21.6-31.8) mmol/L Anion Gap (4.00-12.00) mmol/L BUN/Creatinine Ratio (12.00-20.00) Ratio Glucose (70-110) mg/dL POC Glucose (mg/dL) 112 H 205 H (70-110) mg/dL Calcium (8.7-10.3) mg/dL Total Bilirubin (0.3-1.2) mg/dL AST (14-35) U/L ALT (10-49) U/L Total Protein (6.2-8.2) g/dL Albumin (3.8-4.9) g/dL 09/08/23 09/08/23 Range/Units 05:23 06:46 RBC (4.40-5.60) X 10*6/uL Hgb (13.0-17.0) g/dL Hct (39.6-50.0) % MCHC (32.0-37.0) g/dL RDW (11.5-14.5) % Immature Gran # (0.00-0.04) X 10*3/uL Lymphocytes # (0.90-5.00) X 10*3/uL Monocytes # (0.20-1.00) X 10*3/uL Eosinophils # (0.04-0.35) X 10*3/uL Carbon Dioxide 38.6 H (21.6-31.8) mmol/L Anion Gap 3.40 L (4.00-12.00) mmol/L BUN/Creatinine Ratio 39.33 H (12.00-20.00) Ratio Glucose 128 H (70-110) mg/dL POC Glucose (mg/dL) 151 H (70-110) mg/dL Calcium 7.8 L (8.7-10.3) mg/dL Total Bilirubin <0.2 L (0.3-1.2) mg/dL AST 11 L (14-35) U/L ALT 9 L (10-49) U/L Total Protein 4.5 L (6.2-8.2) g/dL Albumin 2.9 L (3.8-4.9) g/dL Microbiology - Last 24 Hours (Table) 09/04/23 13:20 Blood Culture - Preliminary Blood 09/04/23 13:35 Blood Culture - Preliminary Blood Assessment and Plan Assessment: Acute on chronic hypoxemic and hypercapnic respiratory failure, secondary to C OPD exacerbation, possibly complicated by pneumonia, and/or CHF. Procalcitonin 0.11. proBNP 3130. History of ongoing tobacco use with nicotine addiction, in a patient with severe COPD. FEV1 34% of predicted History of DVT History of gastroesophageal reflux disease History of hypertension History of hyperlipidemia History of coronary artery disease Ongoing tobacco use/nicotine addiction History of laryngeal carcinoma, S/P radiation therapy History of multiple other medical conditions and comorbidities Plan: The patient was seen and evaluated Chest x-ray, labs and medications reviewed Lovenox for DVT prophylaxis Continue the current treatment plan Titrate down the FiO2 as tolerated Again educated regarding the importance of complete smoking cessation We will continue to follow I have personally seen and examined the patient, performed the documentation and the assessment and plan as written. Number of minutes spent on the visit: 10.
--- NOTE | 2023-09-08 12:29 | P.PN ---
Subjective Progress Note Date: 09/08/23 This is a 73-year-old gentleman with past medical history significant for recent inpatient admission for COPD exacerbation-discharged on 08/22/2023, advanced COPD, chronic hypoxic respiratory failure wears 4 L nasal cannula O2 at home, nicotine dependence ,CAD, hypertension, hyperlipidemia and multiple other medical issues presented to the ER with complaints of progressive worsening dyspnea accompanied by nonproductive cough. Chest x-ray reporting multifocal airspace opacities, concerning for pneumonia. Maintained on Augmentin nebulized bronchodilators, IV steroids. Afebrile, WBC 10.9. Viral studies negative. 09/06/2023 Maintained on nebulized bronchodilators, Pulmicort, formoterol, IV steroids and Augmentin. Procalcitonin 0.11. blood sugars controlled. Hemoglobin A1c 5.2. Expiratory wheezing, maintaining O2 sats in the high 80s to 90s on 4 L nasal cannula. afebrile. 09/06. Patient seen and examined.Vital signs this morning show temperature 97.9, heart rate 66, blood pressure 136/78, currently on 4 L of oxygen. Still complaining of shortness of breath at rest, complaining of wheezing. 09/07. Patient seen and examined.Vital signs on this morning showed temperature 98.3, heart rate 66, blood pressure 125/74, currently on 4 L of oxygen saturating at 95%. Hemoglobin was 7 this morning, will transfuse 1 unit of packed red blood cell. Ordered anemia workup REVIEW OF SYSTEMS: CONSTITUTIONAL: No fever, no malaise,. CARDIOVASCULAR: No chest pain, no palpitations, no syncope. PULMONARY: As mentioned above GASTROINTESTINAL: No diarrhea, no nausea, no vomiting, no abdominal pain. NEUROLOGICAL: No headaches, no weakness, PHYSICAL EXAMINATION: GENERAL: The patient is alert and oriented x3, not in any acute distress. Well developed, well nourished. HEENT: Pupils are round and equally reacting to light. EOMI. No scleral icterus. No conjunctival pallor. Normocephalic, atraumatic. No pharyngeal erythema. No thyromegaly. CARDIOVASCULAR: S1 and S2 present. No murmurs, rubs, or gallops. PULMONARY: Good air entry bilaterally, expiratory wheeze audible bilaterally ABDOMEN: Soft, nontender, nondistended, normoactive bowel sounds. No palpable organomegaly. MUSCULOSKELETAL: No joint swelling or deformity. EXTREMITIES: No cyanosis, clubbing, or pedal edema. NEUROLOGICAL: Gross neurological examination did not reveal any focal deficits. SKIN: No rashes. Assessment and plan Acute COPD exacerbation in a patient with history of severe COPD, multifocal hospital-acquired pneumonia, procalcitonin elevated, possible mild component of acute diastolic CHF exacerbation, proBNP 3130. Chronic hypoxic respiratory failure secondary to the above, wears 4 L nasal cannula at home Recent inpatient admission secondary to acute COPD exacerbation , prior bi lateral basal hospital acquired pneumonia with Serratia marcescens History of Comminuted right humerus fracture with impacted surgical neck History of hip surgery status post [facility] Gastroesophageal reflux disease Large hiatal hernia Left-sided renal calculus Hyponatremia Chronic anemia Benign prostatic hypertrophy Hypertension Ongoing nicotine dependence History of laryngeal carcinoma, status post radiation treatments. Monitor vital signs Monitor CBC Monitor CMP Continue telemetry monitoring Encourage use of incentive spirometer Continue oxygen supplementation Continue IV Solu-Medrol Continue breathing treatments Continue Augmentin Ordered 1 unit of packed red blood cell Ordered anemia workup with FOBT, iron saturation, vitamin B12, folate levels Blood sugar levels, continue current insulin regimen Continue lisinopril, Toprol, continue Lasix Pulmonary following Labs and medication were reviewed.. Continue same treatment. Continue with symptomatic treatment. Resume home medication. Monitor labs and vitals. DVT and GI prophylaxis. Further recommendations as per clinical course of the patient Dictation was produced using [employer] dictation software. please excuse any grammatical, word or spelling errors. Objective - Vital Signs Vital signs: Vital Signs Temp 98.3 F 09/08/23 07:40 Pulse 84 09/08/23 09:09 Resp 18 09/08/23 07:40 BP 125/74 09/08/23 07:40 Pulse Ox 94 L 09/08/23 08:49 FiO2 Intake & Output 09/07/23 09/08/23 09/08/23 18:59 06:59 18:59 Output Total 1450 575 Balance -1450 -575 Output: Urine 1450 575 Other: Voiding Method Urinal Urinal - Labs CBC & Chem 7: 09/08/23 05:23 09/08/23 05:23 Labs: Abnormal Lab Results - Last 24 Hours (Table) 09/07/23 09/07/23 09/07/23 Range/Units 11:46 16:46 21:17 POC Glucose (mg/dL) 138 H 112 H 205 H (70-110) mg/dL 09/08/23 Range/Units 06:46 POC Glucose (mg/dL) 151 H (70-110) mg/dL Microbiology - Last 24 Hours (Table) 09/04/23 13:20 Blood Culture - Preliminary Blood 09/04/23 13:35 Blood Culture - Preliminary Blood
[2023-09-08] MEDS: ENOXAPARIN 40 MG/0.4 ML SYRINGE SQ SCH (13:07)
[2023-09-08 19:28] LABS: Glucose,Whole Blood 112 mg/dL (70-110)
[2023-09-09 00:40] LABS: % Iron Saturation 6.5 (15.00-50.00); Ferritin 79.6 ng/mL (22.0-322.0)
[2023-09-09] MEDS ORDERED: ONDANSETRON 4 MG/2 ML VIAL IVP PRN (01:05)
[2023-09-09 06:13] LABS: Glucose,Whole Blood 118 mg/dL (70-110)
[2023-09-09 11:31] LABS: HCT 29.2 % (39.0-53.0); HGB 9.1 gm/dL (13.0-17.5); Hypochromasia Slight; MCH 28.7 pg (25.0-35.0); MCHC 31.2 g/dL (31.0-37.0); MCV 91.7 fL (80.0-100.0); Mean Platelet Volume 8.4; Platelet Count 276 k/uL (150-450); RBC 3.19 m/uL (4.30-5.90); RDW 15.2 % (11.5-15.5); WBC 4.5 k/uL (3.8-10.6)
[2023-09-09 11:43] LABS: African American GFR (CKD) >90 (>60 ml/min/1.73 sqM); Blood Urea Nitrogen 27 mg/dL (9-20); Calcium 7.6 mg/dL (8.4-10.2); Chloride 94 mmol/L (98-107); Glucose 115 mg/dL (74-99); Non-African American GFR(CKD) >90 (>60 ml/min/1.73 sqM); Sodium 134 mmol/L (137-145)
[2023-09-09 11:51] LABS: Anion Gap 3 mmol/L
[2023-09-09 12:01] LABS: Carbon Dioxide 37 mmol/L (22-30)
[2023-09-09 12:06] LABS: Glucose,Whole Blood 107 mg/dL (70-110)
[2023-09-09] MEDS: SODIUM FERRIC GLUCONAT-SUCROSE 125 MG in SODIUM CHLORIDE 0.9% 100 ML IVPB SCH (13:06)
--- NOTE | 2023-09-09 15:57 | P.PN ---
Subjective Progress Note Date: 09/09/23 H&P Date: 09/05/23 Chief Complaint: Progressive shortness of breath, nonproductive cough This is a 73-year-old gentleman with past medical history significant for recent inpatient admission for COPD exacerbation-discharged on 08/22/2023, advanced COPD, chronic hypoxic respiratory failure wears 4 L nasal cannula O2 at home, nicotine dependence ,CAD, hypertension, hyperlipidemia and multiple other medical issues presented to the ER with complaints of progressive worsening dyspnea accompanied by nonproductive cough. Chest x-ray reporting multifocal airspace opacities, concerning for pneumonia. Maintained on Augmentin nebulized bronchodilators, IV steroids. Afebrile, WBC 10.9. Viral studies negative. 09/06/2023 Maintained on nebulized bronchodilators, Pulmicort, formoterol, IV steroids and Augmentin. Procalcitonin 0.11. blood sugars controlled. H emoglobin A1c 5.2. Expiratory wheezing, maintaining O2 sats in the high 80s to 90s on 4 L nasal cannula. afebrile. 09/09/2023 yesterday hemoglobin decreased to 7, received 1 unit packed RBCs, posttransfusion hemoglobin 9.1 complains of fatigue, and nausea posttransfusion. Anemia workup completed -reported iron 18, total iron 277, percentage saturation 6.5, transferrin 198, ferritin 79.6, vitamin B12 407. Maintaining O2 sats in the mid to high 90s on 4 L nasal cannula. Denies chest pain, pal pitations or increased shortness of breath. Denies lightheadedness, dizziness or focal deficits Objective - Vital Signs Vital signs: Vital Signs Temp 97.4 F L 09/09/23 13:21 Pulse 73 09/09/23 13:21 Resp 18 09/09/23 13:21 BP 101/60 09/09/23 13:21 Pulse Ox 96 09/09/23 13:21 FiO2 Intake & Output 09/08/23 09/09/23 09/09/23 18:59 06:59 18:59 Intake Total 310 Output Total 800 750 290 Balance -490 -750 -290 Intake: Blood Product 310 Rc As-1 Unit 310 [id number] Output: Urine 800 750 290 Other: Voiding Method Urinal Urinal - Exam GENERAL: Alert and oriented x3, resting in bed, no acute distress. HEENT: Normocephalic, atraumatic ,pupils are round and equal, No conjunctiva pallor. CARDIOVASCULAR: S1 and S2 present. Systolic murmur. PULMONARY: Unlabored, equal air entry, expiratory wheezing scattered with bilateral bases diminished ABDOMEN: Soft, nontender, nondistended, normoactive bowel sounds. No guarding, no rigidity. EXTREMITIES: No cyanosis, clubbing, or pedal edema. NEUROLOGICAL: Cranial nerves II through XII grossly intact. No focal deficits. Strength and sensation grossly intact. SKIN: No rashes. Warm and dry. - Labs CBC & Chem 7: 09/09/23 11:11 09/09/23 11:11 Labs: Abnormal Lab Results - Last 24 Hours (Table) 09/08/23 09/08/23 09/08/23 Range/Units 12:57 13:00 19:27 RBC (4.30-5.90) m/uL Hgb (13.0-17.5) gm/dL Hct (39.0-53.0) % Sodium (137-145) mmol/L Chloride (98-107) mmol/L Carbon Dioxide (22-30) mmol/L BUN (9-20) mg/dL Creatinine (0.66-1.25) mg/dL Glucose (74-99) mg/dL POC Glucose (mg/dL) 112 H (70-110) mg/dL Calcium (8.4-10.2) mg/dL Iron 18 L (65-175) UG/DL % Saturation 6.50 L (15.00-50.00) Transferrin 198.0 L (204.0-354.0) mg/dL Crossmatch See Detail 09/09/23 09/09/23 09/09/23 Range/Units 06:11 11:11 11:11 RBC 3.19 L (4.30-5.90) m/uL Hgb 9.1 L (13.0-17.5) gm/dL Hct 29.2 L (39.0-53.0) % Sodium 134 L (137-145) mmol/L Chloride 94 L (98-107) mmol/L Carbon Dioxide 37 H (22-30) mmol/L BUN 27 H (9-20) mg/dL Creatinine 0.62 L (0.66-1.25) mg/dL Glucose 115 H (74-99) mg/dL POC Glucose (mg/dL) 118 H (70-110) mg/dL Calcium 7.6 L (8.4-10.2) mg/dL Iron (65-175) UG/DL % Saturation (15.00-50.00) Transferrin (204.0-354.0) mg/dL Crossmatch Assessment and Plan Assessment: Acute COPD exacerbation in a patient with history of severe COPD, multifocal hospital-acquired pneumonia, procalcitonin elevated, possible mild component of acute diastolic CHF exacerbation, proBNP 3130. Chronic hypoxic respiratory failure secondary to the above, wears 4 L nasal cannula at home Recent inpatient admission secondary to acute COPD exacerbation , prior bilateral basal hospital acquired pneumonia with Serratia marcescens History of Comminuted right humerus fracture with impacted surgical neck History of hip surgery status post [facility] Gastroesophageal reflux disease Large hiatal hernia Left-sided renal calculus Hyponatremia Chronic anemia, iron deficient Benign prostatic hypertrophy Hypertension Ongoing nicotine dependence History of laryngeal carcinoma, status post radiation treatments. Plan:Continue on current medication regimen ,monitoring and symptomatic treatment. Venofer ordered. Close monitoring of CBC with repeat labs ordered for a.m. maintain aggressive pulmonary toileting, nebulized bronchodilators, steroids. Smoking sensation reinforced. increase activity as tolerated. Discharge planning in progress for subacute rehab., pending final DC recommendations and clearance per pulmonary. The impression and plan of care has been dictated as directed. : I performed a history and examination of this patient, discussed the same with the dictator. I agree with the dictator's note ,documented as a scribe. Any additional findings or plans will be noted.
[2023-09-09 16:58] LABS: Glucose,Whole Blood 108 mg/dL (70-110)
[2023-09-09] MEDS: ACETAMINOPHEN TAB 325 MG TAB PO PRN (17:59)
--- NOTE | 2023-09-09 18:42 | P.PN ---
Subjective Progress Note Date: 09/09/23 73-year-old male with a history of severe COPD. His FEV1 is 34% of predicted. He also has chronic hypoxemic respiratory failure and uses home O2 at 4 L. Other medical history includes coronary disease, DVT, GERD, deafness, hyperlipidemia, hypertension, and laryngeal carcinoma. The patient's primary c are physician is Dr. Balderas. He sees my partner Dr. Gonzalez for his COPD. The patient has been hospitalized, June, July, August, and now in September,. He has been in and out of [facility], for rehabilitation, and physical therapy. He presents to the emergency department on September 04, 2023, with increasing shortness of breath, and he apparently has been having difficulty with his breathing for 3 days prior to admission. The patient does continue to smoke cigarettes. He denied any chest pain or palpitations. He denied any fever or chills. He did have a bit of a cough, not producing much phlegm. He denies any GI or complaints. Patient's chest x-ray appears to show some infiltrates, particularly in the right lung, middle lobe and lower lobe. There may also be some infiltrates in the left lung as well. Current laboratory data includes a white count 10.9, hemoglobin 8.3, hematocrit 27.2, and a platelet count of 258,000. Coagulation studies were normal. Sodium 140, potassium 4.2, chloride 104, CO2 39, BUN 19, creatinine 0.58. Albumin is 2.5. N-terminal proBNP is 3130. He tested negative for influenza A, B, RSV, and coronavirus. The patient is seen today September 07, 2023 in follow-up on the regular medical floor. He is currently resting comfortably in bed. Awake and alert in no acute distress. He is maintaining O2 saturations in the 90s on 4 L/min per nasal cannula. No IV fluids. He is continued on DuoNeb inhalations, Pulmicort and Perforomist inhalations, Solu-Medrol. Antibiotics in the form of Augmentin. Procalcitonin 0.11. Blood cultures are pending. Glucose 152. The patient is seen today September 08, 2023 in follow-up on the regular medical floor. He is currently awake and alert in no acute distress. Feeling better each day. Less short of breath. Less cough and congestion. He is maintaining O2 saturations in the 90s on 4 L/min per nasal cannula. Chest x-ray is showing continued pulmonary venous congestion with scattered interstitial prominence. Continued cardiomegaly. Blood cultures revealed no growth. White count 5.1. Hemoglobin 7.0. Platelets 261. Sodium 139. Potassium 4.1. Bicarb 39. BUN 24. Creatinine 0.6. Glucose 128. He is continued on DuoNeb inhalations, Pulmicort and Perforomist inhalations, Mucinex, Solu-Medrol. Remains on oral diuretics. Empiric antibiotics in the form of Augmentin. Urine: Has been pulmonary to going to be notified been reviewed. On today's evaluation of 09/09/2023, the patient is being seen for a follow-up. Clinically stable. Hemodynamically stable. Less short of breath compared to yesterday. Remains on oxygen 4 L/min nasal cannula. Remains on bronchodilators. Remains on steroids. During this current admission, the patient received a total of 1 unit of packed RBC and the patient is receiving IV iron. Hemoglobin stable at 9.1. White cell count is 4.5. BUN is at 27 with a creatinine of 0.6 and a sodium levels at 134. No other new complaints otherwise for now. The patient is currently on DuoNeb and the patient is on IV Solu- Medrol 60 mg every 6 hours. Objective - Vital Signs Vital signs: Vital Signs Temp 97.9 F 09/09/23 07:30 Pulse 80 09/09/23 10:23 Resp 18 09/09/23 10:52 BP 134/75 09/09/23 07:30 Pulse Ox 92 L 09/09/23 10:08 FiO2 Intake & Output 09/08/23 09/09/23 09/09/23 18:59 06:59 18:59 Intake Total 310 Output Total 800 750 290 Balance -490 -750 -290 Intake: Blood Product 310 Rc As-1 Unit 310 [id number] Output: Urine 800 750 290 Other: Voiding Method Urinal Urinal - Exam GENERAL EXAM: Alert, pleasant, 73-year-old male, resting in bed, on 4 L nasal cannula, comfortable in no apparent distress. HEAD: Normocephalic. EYES: Normal reaction of pupils, equal size. NOSE: Clear with pink turbinates. THROAT: No erythema or exudates. NECK: No masses, no JVD. CHEST: No chest wall deformity. LUNGS: Equal air entry with few scattered rhonchi, end expiratory wheeze, diminished. CVS: S1 and S2 normal with no audible murmur, regular rhythm. ABDOMEN: No hepatosplenomegaly, normal bowel sounds, no guarding or rigidity. SPINE: No scoliosis or deformity SKIN: No rashes CENTRAL NERVOUS SYSTEM: No focal deficits, tone is normal in all 4 extremities. EXTREMITIES: There is no peripheral edema. No clubbing, no cyanosis. Peripheral pulses are intact. - Labs CBC & Chem 7: 09/09/23 11:11 09/09/23 11:11 Labs: Abnormal Lab Results - Last 24 Hours (Table) 09/08/23 09/08/23 09/08/23 Range/Units 12:57 13:00 19:27 RBC (4.30-5.90) m/uL Hgb (13.0-17.5) gm/dL Hct (39.0-53.0) % Sodium (137-145) mmol/L Chloride (98-107) mmol/L Carbon Dioxide (22-30) mmol/L BUN (9-20) mg/dL Creatinine (0.66-1.25) mg/dL Glucose (74-99) mg/dL POC Glucose (mg/dL) 112 H (70-110) mg/dL Calcium (8.4-10.2) mg/dL Iron 18 L (65-175) UG/DL % Saturation 6.50 L (15.00-50.00) Transferrin 198.0 L (204.0-354.0) mg/dL Crossmatch See Detail 09/09/23 09/09/23 09/09/23 Range/Units 06:11 11:11 11:11 RBC 3.19 L (4.30-5.90) m/uL Hgb 9.1 L (13.0-17.5) gm/dL Hct 29.2 L (39.0-53.0) % Sodium 134 L (137-145) mmol/L Chloride 94 L (98-107) mmol/L Carbon Dioxide 37 H (22-30) mmol/L BUN 27 H (9-20) mg/dL Creatinine 0.62 L (0.66-1.25) mg/dL Glucose 115 H (74-99) mg/dL POC Glucose (mg/dL) 118 H (70-110) mg/dL Calcium 7.6 L (8.4-10.2) mg/dL Iron (65-175) UG/DL % Saturation (15.00-50.00) Transferrin (204.0-354.0) mg/dL Crossmatch Assessment and Plan Plan: Acute on chronic hypoxemic and hypercapnic respiratory failure, secondary to COPD exacerbation, possibly complicated by pneumonia, and/or CHF. The patient is clinically improved and the patient remains on oxygen at 4 L/min nasal cannula. Less short of breath compared to yesterday. Acute on chronic anemia, received a total of 1 unit of packed RBC and currently receiving IV iron History of ongoing tobacco use with nicotine addiction, in a patient with severe COPD. FEV1 34% of predicted History of DVT History of gastroesophageal reflux disease History of hypertension History of hyperlipidemia History of coronary artery disease Ongoing tobacco use/nicotine addiction History of laryngeal carcinoma, S/P radiation therapy History of multiple other medical conditions and comorbidities Plan: Continue same treatment with bronchodilators and steroids and start tapering zeny roids as of tomorrow Hemoglobin is stable and there is no evidence of any bleeding IV iron Lovenox for DVT prophylaxis Continue the current treatment plan Titrate down the FiO2 as tolerated Again educated regarding the importance of complete smoking cessation We will continue to follow
[2023-09-09 19:53] LABS: Glucose,Whole Blood 127 mg/dL (70-110)
[2023-09-10 05:54] LABS: Glucose,Whole Blood 122 mg/dL (70-110)
[2023-09-10 10:47] LABS: Basophils # (A) 0 X 10*3/uL (0.00-0.10); Basophils % (A) 0 %; Eosinophils # (A) 0 X 10*3/uL (0.04-0.35); Eosinophils % (A) 0 %; HGB 8.9 g/dL (13.0-17.0); Lymphocytes # (A) 0.14 X 10*3/uL (0.90-5.00); MCH 28.1 pg (27.0-32.0); MCHC 30.7 g/dL (32.0-37.0); MCV 91.5 FL (80.0-97.0); Mean Platelet Volume 10.3 FL (9.5-12.2); Monocytes # (A) 0.21 X 10*3/uL (0.20-1.00); Monocytes % (A) 3.1 %; NRBC Per 100 WBC 0 X 10*3/uL (0.00-0.01); Neutrophils # (A) 6.39 X 10*3/uL (1.80-7.70); Neutrophils % (A) 93.6 %; Platelet Count 303 X 10*3/uL (140-440); RBC 3.17 X 10*6/uL (4.40-5.60); RDW 14.6 % (11.5-14.5); WBC 6.83 X 10*3/uL (4.50-10.00)
[2023-09-10 11:19] LABS: BUN/Creat Ratio 40.17 Ratio (12.00-20.00); Blood Urea Nitrogen 24.1 mg/dL (9.0-27.0); Calcium 7.9 mg/dL (8.7-10.3); Chloride 95 mmol/L (96-109); Glucose 97 mg/dL (70-110); Potassium 5.3 mmol/L (3.5-5.5); Sodium 137 mmol/L (135-145)
[2023-09-10 11:46] LABS: Glucose,Whole Blood 100 mg/dL (70-110)
--- NOTE | 2023-09-10 13:07 | P.DS ---
Providers Date of admission: 09/04/23 16:41 Expected date of discharge: 09/10/23 Attending physician: Jamie Balderas Consults: 09/05/23 13:11 Consult Physician Routine Consulting Provider: Shan Price Reason/Comments: COPD /Pneumonia, recent IP Do you want consulting provider notified?: Yes Primary care physician: Jamie Balderas Hospital Course: Final Diagnoses: Acute COPD exacerbation in a patient with history of severe COPD, multifocal hospital-acquired pneumonia, procalcitonin elevated, possible mild component of acute diastolic CHF exacerbation, proBNP 3130. Chronic hypoxic respiratory failure secondary to the above, wears 4 L nasal cannula at home Recent inpatient admission secondary to acute COPD exacerbation , prior bilateral basal hospital acquired pneumonia with Serratia marcescens History of Comminuted right humerus fracture with impacted surgical neck History of hip surgery status post [facility] Gastroesophageal reflux disease Large hiatal hernia Left-sided renal calculus Hyponatremia Chronic anemia, iron deficient Benign prostatic hypertrophy Hypertension Ongoing nicotine dependence History of laryngeal carcinoma, status post radiation treatments. Hospital course:This is a 73-year-old gentleman with past medical history significant for recent inpatient admission for COPD exacerbation-discharged on 08/22/2023, advanced COPD, chronic hypoxic respiratory failure wears 4 L nasal cannula O2 at home, nicotine dependence ,CAD, hypertension, hyperlipidemia and multiple other medical issues presented to the ER with complaints of progressive worsening dyspnea accompanied by nonproductive cough. Chest x-ray reporting multifocal airspace opacities, concerning for pneumonia. Maintained on Augmentin nebulized bronchodilators, IV steroids. Afebrile, WBC 10.9. Viral studies negative. 09/06/2023 Maintained on nebulized bronchodilators, Pulmicort, formoterol, IV steroids and Augmentin. Procalcitonin 0.11. blood sugars controlled. Hemoglobin A1c 5.2. Expiratory wheezing, maintaining O2 sats in the high 80s to 90s on 4 L nasal cannula. afebrile. 09/09/2023 yesterday hemoglobin decreased to 7, received 1 unit packed RBCs, posttransfusion hemoglobin 9.1 complains of fatigue, and nausea posttransfusion. Anemia workup completed -reported iron 18, total iron 277, percentage saturation 6.5, transferrin 198, ferritin 79.6, vitamin B12 407. Maintaining O2 sats in the mid to high 90s on 4 L nasal cannula. Denies chest pain, palpitations or increased shortness of breath. Denies lightheadedness, dizziness or focal deficits. Significant clinical improvement. Pulmonary discussing tapering of steroids today. Hemoglobin 8.9, platelets 303. Renal function stable. Maintaining O2 sats in the 90s on 4 L nasal cannula, patient's baseline. Denies chest pain, palpitations or increased shortness of breath. Discharge planning in progress for [facility] subacute rehab. pending final DC recommendations and clearance per pulmonary. The impression and plan of care has been dictated as directed. : I performed a history and examination of this patient, discussed the same with the dictator. I agree with the dictator's note ,documented as a scribe. Any additional findings or plans will be noted. Patient Condition at Discharge: Stable Plan - Discharge Summary Discharge Rx Participant: No New Discharge Prescriptions: New HYDROcodone/APAP 5-325MG [[place] 5-325] 1 each PO Q8H PRN #9 tab PRN Reason: Moderate Pain (Scale 4 To 6) Acetaminophen Tab [Tylenol] 650 mg PO Q6HR PRN tab PRN Reason: Mild Pain (Scale 1 To 3) Ipratropium-Albuterol Nebulize [Duoneb 0.5 mg-3 mg/3 ml Soln] 3 ml INHALATION Q4H PRN each PRN Reason: Shortness Of Breath Or Wheezing Escitalopram [Lexapro] 10 mg PO DAILY tab Continue lisinopriL [Zestril] 20 mg PO BID Albuterol Sulfate [Ventolin HFA] 2 puff INHALATION RT-Q6H PRN PRN Reason: Shortness Of Breath Tamsulosin HCl [Flomax] 0.4 mg PO HS Metoprolol Succinate (ER) [Toprol XL] 12.5 mg PO DAILY #30 tab Omeprazole 20 mg PO DAILY Ipratropium-Albuterol Nebulize [Duoneb 0.5 mg-3 mg/3 ml Soln] 3 ml INHALATION RT-QID #0 each Budesonide-Formot 160-4.5 Mcg [Symbicort 160-4.5 Mcg Inhaler] 2 puff INHALATION RT-BID #1 each Docusate [Colace] 100 mg PO HS Sennosides/Docusate Sodium [Senna Plus 8.6-50 mg Tablet] 1 tab PO BID Naproxen [EC-Naproxen] 375 mg PO TID Furosemide [Lasix] 40 mg PO DAILY tab Fluticasone Nasal [place] [Flonase Nasal [place]] 2 spray EA NOSTRIL DAILY ml guaiFENesin [Mucinex] 1,200 mg PO Q12HR tab Aspirin EC [Ecotrin Low Dose] 81 mg PO BID Nicotine Gum (Polacrilex) [Nicorette] 4 mg BUCCAL Q2HR PRN pieceofgum PRN Reason: Nicotine Cravings Discharge Medication List lisinopriL [Zestril] 20 mg PO BID 03/04/19 [History] Albuterol Sulfate [Ventolin HFA] 2 puff INHALATION RT-Q6H PRN 03/06/20 [History] Tamsulosin HCl [Flomax] 0.4 mg PO HS 04/11/22 [History] Metoprolol Succinate (ER) [Toprol XL] 12.5 mg PO DAILY #30 tab 04/16/22 [Rx] Omeprazole 20 mg PO DAILY 05/02/22 [History] Furosemide [Lasix] 40 mg PO DAILY tab 06/07/23 [Rx] Fluticasone Nasal [place] [Flonase Nasal [place]] 2 spray EA NOSTRIL DAILY ml 07/01/23 [Rx] Ipratropium-Albuterol Nebulize [Duoneb 0.5 mg-3 mg/3 ml Soln] 3 ml INHALATION RT-QID #0 each 07/01/23 [Rx] Budesonide-Formot 160-4.5 Mcg [Symbicort 160-4.5 Mcg Inhaler] 2 puff INHALATION RT-BID #1 each 07/16/23 [Rx] guaiFENesin [Mucinex] 1,200 mg PO Q12HR tab 07/16/23 [Rx] Aspirin EC [Ecotrin Low Dose] 81 mg PO BID 08/21/23 [History] Docusate [Colace] 100 mg PO HS 08/21/23 [History] Sennosides/Docusate Sodium [Senna Plus 8.6-50 mg Tablet] 1 tab PO BID 08/21/23 [History] Nicotine Gum (Polacrilex) [Nicorette] 4 mg BUCCAL Q2HR PRN pieceofgum 08/22/23 [Rx] Naproxen [EC-Naproxen] 375 mg PO TID 09/05/23 [History] Acetaminophen Tab [Tylenol] 650 mg PO Q6HR PRN tab 09/09/23 [Rx] Escitalopram [Lexapro] 10 mg PO DAILY tab 09/09/23 [Rx] HYDROcodone/APAP 5-325MG [[place] 5-325] 1 each PO Q8H PRN #9 tab 09/09/23 [Rx] Ipratropium-Albuterol Nebulize [Duoneb 0.5 mg-3 mg/3 ml Soln] 3 ml INHALATION Q4H PRN each 09/09/23 [Rx] Follow up Appointment(s)/Referral(s): Jamie Balderas DO [Primary Care Provider] - 1 Week (After DC from subacute rehab) Activity/Diet/Wound Care/Special Instructions: [facility] subacute rehab CBC, BMP in 3 days 4 L nasal cannula O2 Discharge Disposition: TRANSFER TO SNF/ECF
--- NOTE | 2023-09-10 14:26 | P.PN ---
Subjective Progress Note Date: 09/10/23 73-year-old male with a history of severe COPD. His FEV1 is 34% of predicted. He also has chronic hypoxemic respiratory failure and uses home O2 at 4 L. Other medical history includes coronary disease, DVT, GERD, deafness, hyperlipidemia, hypertension, and laryngeal carcinoma. The patient's primary c are physician is Dr. Balderas. He sees my partner Dr. Gonzalez for his COPD. The patient has been hospitalized, June, July, August, and now in September,. He has been in and out of [facility], for rehabilitation, and physical therapy. He presents to the emergency department on September 04, 2023, with increasing shortness of breath, and he apparently has been having difficulty with his breathing for 3 days prior to admission. The patient does continue to smoke cigarettes. He denied any chest pain or palpitations. He denied any fever or chills. He did have a bit of a cough, not producing much phlegm. He denies any GI or complaints. Patient's chest x-ray appears to show some infiltrates, particularly in the right lung, middle lobe and lower lobe. There may also be some infiltrates in the left lung as well. Current laboratory data includes a white count 10.9, hemoglobin 8.3, hematocrit 27.2, and a platelet count of 258,000. Coagulation studies were normal. Sodium 140, potassium 4.2, chloride 104, CO2 39, BUN 19, creatinine 0.58. Albumin is 2.5. N-terminal proBNP is 3130. He tested negative for influenza A, B, RSV, and coronavirus. The patient is seen today September 07, 2023 in follow-up on the regular medical floor. He is currently resting comfortably in bed. Awake and alert in no acute distress. He is maintaining O2 saturations in the 90s on 4 L/min per nasal cannula. No IV fluids. He is continued on DuoNeb inhalations, Pulmicort and Perforomist inhalations, Solu-Medrol. Antibiotics in the form of Augmentin. Procalcitonin 0.11. Blood cultures are pending. Glucose 152. The patient is seen today September 08, 2023 in follow-up on the regular medical floor. He is currently awake and alert in no acute distress. Feeling better each day. Less short of breath. Less cough and congestion. He is maintaining O2 saturations in the 90s on 4 L/min per nasal cannula. Chest x-ray is showing continued pulmonary venous congestion with scattered interstitial prominence. Continued cardiomegaly. Blood cultures revealed no growth. White count 5.1. Hemoglobin 7.0. Platelets 261. Sodium 139. Potassium 4.1. Bicarb 39. BUN 24. Creatinine 0.6. Glucose 128. He is continued on DuoNeb inhalations, Pulmicort and Perforomist inhalations, Mucinex, Solu-Medrol. Remains on oral diuretics. Empiric antibiotics in the form of Augmentin. Urine: Has been pulmonary to going to be notified been reviewed. On today's evaluation of 09/09/2023, the patient is being seen for a follow-up. Clinically stable. Hemodynamically stable. Less short of breath compared to yesterday. Remains on oxygen 4 L/min nasal cannula. Remains on bronchodilators. Remains on steroids. During this current admission, the patient received a total of 1 unit of packed RBC and the patient is receiving IV iron. Hemoglobin stable at 9.1. White cell count is 4.5. BUN is at 27 with a creatinine of 0.6 and a sodium levels at 134. No other new complaints otherwise for now. The patient is currently on DuoNeb and the patient is on IV Solu- Medrol 60 mg every 6 hours. On today's evaluation of foreign on today on today's evaluation of 09/10/2023, the patient is feeling better. No specific complaints. Less bronchospastic and less wheezy compared to yesterday. Remains on DuoNeb updrafts. Remains on IV Solu-Medrol. Free of any chest pain. Remains on Levemir insulin 20 units along with sliding scale coverage. He is also making Lasix 40 mg p.o. daily. Hemoglobin of 8.9 which is stable. Platelet count is at 303 with a white cell count of 6.8. BUN is at 24 with a creatinine of 0.6. The rest of the electrolytes show a chronic metabolic alkalosis. Awake and alert and the patient remains on oxygen at 4 L nasal cannula. No signs of any altered mentation. Objective - Vital Signs Vital signs: Vital Signs Temp 97.8 F 09/10/23 07:06 Pulse 72 09/10/23 09:42 Resp 19 09/10/23 07:06 BP 146/83 09/10/23 07:06 Pulse Ox 90 L 09/10/23 07:06 FiO2 Intake & Output 09/09/23 09/10/23 09/10/23 18:59 06:59 18:59 Intake Total 250 40 Output Total 1090 750 250 Balance -840 -710 -250 Intake: Oral 250 40 Output: Urine 1090 750 250 Other: Voiding Method Urinal Urinal - Exam GENERAL EXAM: Alert, pleasant, 73-year-old male, resting in bed, on 4 L nasal cannula, comfortable in no apparent distress. HEAD: Normocephalic. EYES: Normal reaction of pupils, equal size. NOSE: Clear with pink turbinates. THROAT: No erythema or exudates. NECK: No masses, no JVD. CHEST: No chest wall deformity. LUNGS: Equal air entry with few scattered rhonchi, end expiratory wheeze, diminished. CVS: S1 and S2 normal with no audible murmur, regular rhythm. ABDOMEN: No hepatosplenomegaly, normal bowel sounds, no guarding or rigidity. SPINE: No scoliosis or deformity SKIN: No rashes CENTRAL NERVOUS SYSTEM: No focal deficits, tone is normal in all 4 extremities. EXTREMITIES: There is no peripheral edema. No clubbing, no cyanosis. Peripheral pulses are intact. - Labs CBC & Chem 7: 09/10/23 06:28 09/10/23 06:28 Labs: Abnormal Lab Results - Last 24 Hours (Table) 09/09/23 09/09/23 09/09/23 Range/Units 11:11 11:11 19:52 RBC 3.19 L (4.30-5.90) m/uL Hgb 9.1 L (13.0-17.5) gm/dL Hct 29.2 L (39.0-53.0) % Sodium 134 L (137-145) mmol/L Chloride 94 L (98-107) mmol/L Carbon Dioxide 37 H (22-30) mmol/L BUN 27 H (9-20) mg/dL Creatinine 0.62 L (0.66-1.25) mg/dL Glucose 115 H (74-99) mg/dL POC Glucose (mg/dL) 127 H (70-110) mg/dL Calcium 7.6 L (8.4-10.2) mg/dL 09/10/23 Range/Units 05:53 RBC (4.30-5.90) m/uL Hgb (13.0-17.5) gm/dL Hct (39.0-53.0) % Sodium (137-145) mmol/L Chloride (98-107) mmol/L Carbon Dioxide (22-30) mmol/L BUN (9-20) mg/dL Creatinine (0.66-1.25) mg/dL Glucose (74-99) mg/dL POC Glucose (mg/dL) 122 H (70-110) mg/dL Calcium (8.4-10.2) mg/dL Microbiology - Last 24 Hours (Table) 09/04/23 13:20 Blood Culture - Final Blood 09/04/23 13:35 Blood Culture - Final Blood Assessment and Plan Plan: Acute on chronic hypoxemic and hypercapnic respiratory failure, secondary to COPD exacerbation, possibly complicated by pneumonia, and/or CHF. The patient is clinically improved and the patient remains on oxygen at 4 L/min nasal cannula. Less short of breath compared to yesterday. Acute on chronic anemia, received a total of 1 unit of packed RBC and currently receiving IV iron History of ongoing tobacco use with nicotine addiction, in a patient with severe COPD. FEV1 34% of predicted History of DVT History of gastroesophageal reflux disease History of hypertension History of hyperlipidemia History of coronary artery disease Ongoing tobacco use/nicotine addiction History of laryngeal carcinoma, S/P radiation therapy History of multiple other medical conditions and comorbidities Plan: Start the patient on prednisone burst taper and discontinue the IV Solu-Medrol Patient utilizing Trelegy Ellipta on outpatient basis and the patient has a nebulizer and home O2 at 4 L nasal cannula Hemoglobin is stable and there is no evidence of any bleeding IV iron Lovenox for DVT prophylaxis Again educated regarding the importance of complete smoking cessation We will continue to follow, possible discharge home today
[2023-09-10 17:02] LABS: Glucose,Whole Blood 88 mg/dL (70-110)
[2023-09-10 19:49] LABS: Glucose,Whole Blood 173 mg/dL (70-110)
[2023-09-11 05:49] LABS: Glucose,Whole Blood 141 mg/dL (70-110)
[2023-09-11 07:22] VITALS: BP 133/72; RESP 19; TEMP 97.9
[2023-09-11] MEDS: predniSONE 20 MG TAB PO SCH (11:28)
[2023-09-11 11:35] LABS: Glucose,Whole Blood 126 mg/dL (70-110)
[2023-09-11 11:39] VITALS: BMI 25.0
--- NOTE | 2023-09-11 11:59 | P.PN ---
Subjective Progress Note Date: 09/11/23 73-year-old male with a history of severe COPD. His FEV1 is 34% of predicted. He also has chronic hypoxemic respiratory failure and uses home O2 at 4 L. Other medical history includes coronary disease, DVT, GERD, deafness, hyperlipidemia, hypertension, and laryngeal carcinoma. The patient's primary c are physician is Dr. Balderas. He sees my partner Dr. Gonzalez for his COPD. The patient has been hospitalized, June, July, August, and now in September,. He has been in and out of [facility], for rehabilitation, and physical therapy. He presents to the emergency department on September 04, 2023, with increasing shortness of breath, and he apparently has been having difficulty with his breathing for 3 days prior to admission. The patient does continue to smoke cigarettes. He denied any chest pain or palpitations. He denied any fever or chills. He did have a bit of a cough, not producing much phlegm. He denies any GI or complaints. Patient's chest x-ray appears to show some infiltrates, particularly in the right lung, middle lobe and lower lobe. There may also be some infiltrates in the left lung as well. Current laboratory data includes a white count 10.9, hemoglobin 8.3, hematocrit 27.2, and a platelet count of 258,000. Coagulation studies were normal. Sodium 140, potassium 4.2, chloride 104, CO2 39, BUN 19, creatinine 0.58. Albumin is 2.5. N-terminal proBNP is 3130. He tested negative for influenza A, B, RSV, and coronavirus. The patient is seen today September 07, 2023 in follow-up on the regular medical floor. He is currently resting comfortably in bed. Awake and alert in no acute distress. He is maintaining O2 saturations in the 90s on 4 L/min per nasal cannula. No IV fluids. He is continued on DuoNeb inhalations, Pulmicort and Perforomist inhalations, Solu-Medrol. Antibiotics in the form of Augmentin. Procalcitonin 0.11. Blood cultures are pending. Glucose 152. The patient is seen today September 08, 2023 in follow-up on the regular medical floor. He is currently awake and alert in no acute distress. Feeling better each day. Less short of breath. Less cough and congestion. He is maintaining O2 saturations in the 90s on 4 L/min per nasal cannula. Chest x-ray is showing continued pulmonary venous congestion with scattered interstitial prominence. Continued cardiomegaly. Blood cultures revealed no growth. White count 5.1. Hemoglobin 7.0. Platelets 261. Sodium 139. Potassium 4.1. Bicarb 39. BUN 24. Creatinine 0.6. Glucose 128. He is continued on DuoNeb inhalations, Pulmicort and Perforomist inhalations, Mucinex, Solu-Medrol. Remains on oral diuretics. Empiric antibiotics in the form of Augmentin. Urine: Has been pulmonary to going to be notified been reviewed. On today's evaluation of 09/09/2023, the patient is being seen for a follow-up. Clinically stable. Hemodynamically stable. Less short of breath compared to yesterday. Remains on oxygen 4 L/min nasal cannula. Remains on bronchodilators. Remains on steroids. During this current admission, the patient received a total of 1 unit of packed RBC and the patient is receiving IV iron. Hemoglobin stable at 9.1. White cell count is 4.5. BUN is at 27 with a creatinine of 0.6 and a sodium levels at 134. No other new complaints otherwise for now. The patient is currently on DuoNeb and the patient is on IV Solu- Medrol 60 mg every 6 hours. On today's evaluation of foreign on today on today's evaluation of 09/10/2023, the patient is feeling better. No specific complaints. Less bronchospastic and less wheezy compared to yesterday. Remains on DuoNeb updrafts. Remains on IV Solu-Medrol. Free of any chest pain. Remains on Levemir insulin 20 units along with sliding scale coverage. He is also making Lasix 40 mg p.o. daily. Hemoglobin of 8.9 which is stable. Platelet count is at 303 with a white cell count of 6.8. BUN is at 24 with a creatinine of 0.6. The rest of the electrolytes show a chronic metabolic alkalosis. Awake and alert and the patient remains on oxygen at 4 L nasal cannula. No signs of any altered mentation. On today's evaluation of 09/11/2023, the patient is feeling well with no specific complaints. Overall condition is stable and the patient could be potentially discharged home today. No significant respite distress. Remains on oxygen at 4 L/min nasal cannula. Can be discharged home on a prednisone burst taper and Trelegy Ellipta in addition to Julissa hewitt on his routine home medications. No labs are available from today. Labs from yesterday was noted. Hemoglobin was stable at 8.9. Objective - Vital Signs Vital signs: Vital Signs Temp 97.9 F 09/11/23 06:48 Pulse 56 L 09/11/23 09:47 Resp 19 09/11/23 06:48 BP 133/72 09/11/23 06:48 Pulse Ox 92 L 09/11/23 09:19 FiO2 Intake & Output 09/10/23 09/11/23 09/11/23 18:59 06:59 18:59 Intake Total 480 Output Total 475 Balance -475 480 Weight 72.575 kg Intake: Oral 480 Output: Urine 475 Other: Voiding Method Urinal # Voids 3 - Exam GENERAL EXAM: Alert, pleasant, 73-year-old male, resting in bed, on 4 L nasal cannula, comfortable in no apparent distress. HEAD: Normocephalic. EYES: Normal reaction of pupils, equal size. NOSE: Clear with pink turbinates. THROAT: No erythema or exudates. NECK: No masses, no JVD. CHEST: No chest wall deformity. LUNGS: Equal air entry with few scattered rhonchi, end expiratory wheeze, diminished. CVS: S1 and S2 normal with no audible murmur, regular rhythm. ABDOMEN: No hepatosplenomegaly, normal bowel sounds, no guarding or rigidity. SPINE: No scoliosis or deformity SKIN: No rashes CENTRAL NERVOUS SYSTEM: No focal deficits, tone is normal in all 4 extremities. EXTREMITIES: There is no peripheral edema. No clubbing, no cyanosis. Peripheral pulses are intact. - Labs CBC & Chem 7: 09/10/23 06:28 09/10/23 06:28 Labs: Abnormal Lab Results - Last 24 Hours (Table) 09/10/23 09/11/23 09/11/23 Range/Units 19:47 05:47 11:33 POC Glucose (mg/dL) 173 H 141 H 126 H (70-110) mg/dL Assessment and Plan Plan: Acute on chronic hypoxemic and hypercapnic respiratory failure, secondary to COPD exacerbation, possibly complicated by pneumonia, and/or CHF. The patient is clinically improved and the patient remains on oxygen at 4 L/min nasal cannula. Less short of breath compared to yesterday. Acute on chronic anemia, received a total of 1 unit of packed RBC and currently receiving IV iron History of ongoing tobacco use with nicotine addiction, in a patient with severe COPD. FEV1 34% of predicted History of DVT History of gastroesophageal reflux disease History of hypertension History of hyperlipidemia History of coronary artery disease Ongoing tobacco use/nicotine addiction History of laryngeal carcinoma, S/P radiation therapy History of multiple other medical conditions and comorbidities Plan: Clinically stable and the patient should be able to discharge home on a prednisone burst taper Patient utilizing Trelegy Ellipta on outpatient basis and the patient has a nebulizer and home O2 at 4 L nasal cannula Hemoglobin is stable and there is no evidence of any bleeding IV iron Lovenox for DVT prophylaxis Again educated regarding the importance of complete smoking cessation We will continue to follow, possible discharge home today
[2023-09-11 12:24] VITALS: PULSE 60
== END 2023-09-11 14:06 | DRG 190 ==
LOC: EC 12:46 → 4SSUR 16:41
PROVIDERS: ADMIT Family Medicine; ATTEND Family Medicine
PROC: 30233N1 Transfusion of Nonautologous Red Blood Cells into Peripheral Vein, Percutaneous Approach (ICD-10-PCS; principal; 2023-09-08)
DX: J44.1 Chronic obstructive pulmonary disease with (acute) exacerbation (principal); J18.9 Pneumonia, unspecified organism; E87.1 Hypo-osmolality and hyponatremia; J96.11 Chronic respiratory failure with hypoxia; J96.12 Chronic respiratory failure with hypercapnia; E87.3 Alkalosis; D64.9 Anemia, unspecified; I10 Essential (primary) hypertension; K44.9 Diaphragmatic hernia without obstruction or gangrene; N20.0 Calculus of kidney; D50.9 Iron deficiency anemia, unspecified; Z92.3 Personal history of irradiation; E78.5 Hyperlipidemia, unspecified; K21.9 Gastro-esophageal reflux disease without esophagitis; F17.210 Nicotine dependence, cigarettes, uncomplicated; H91.90 Unspecified hearing loss, unspecified ear; J44.0 Chronic obstructive pulmonary disease with (acute) lower respiratory infection; I25.10 Atherosclerotic heart disease of native coronary artery without angina pectoris; I49.3 Ventricular premature depolarization; N40.0 Benign prostatic hyperplasia without lower urinary tract symptoms; Z79.4 Long term (current) use of insulin; Z79.51 Long term (current) use of inhaled steroids; Z79.52 Long term (current) use of systemic steroids; Z79.899 Other long term (current) drug therapy; Z86.718 Personal history of other venous thrombosis and embolism; Z85.21 Personal history of malignant neoplasm of larynx; Z88.0 Allergy status to penicillin; Z88.5 Allergy status to narcotic agent; Z82.49 Family history of ischemic heart disease and other diseases of the circulatory system
CPT/HCPCS: 36415; 71045; 71046; 80048; 80053; 82607; 82728; 82747; 83036; 83540; 83550; 83605; 83880; 84145; 85025; 85027; 85610; 85730; 86850; 86900; 86901; 86920; 87040; 87636; 93005; 94640; 94667; 94668; 94760; 96372; 96374; 96375; 96376; 99285; 99291

== ENCOUNTER 2024-02-17 14:23 | Inpatient (IN) | payer MEDICARE, OTHER ==
[2024-02-17] MEDS: IPRATROPIUM-ALBUTEROL 3 ML NEB INHALATION STA (14:32)
[2024-02-17] MEDS: ONDANSETRON 4 MG/2 ML VIAL IVP STA (14:38)
[2024-02-17] MEDS: methylPREDNISolone SOD SUCCI 125 MG/2 ML VIAL IV STA (14:39)
[2024-02-17] MEDS: SODIUM CHLORIDE 0.9% 1,000 ML IV STA ×3 (14:41→16:09)
[2024-02-17 14:49] LABS: Basophils # (A) 0.1 k/uL (0-0.2); Basophils % (A) 1 %; Eosinophils # (A) 0.2 k/uL (0-0.7); Eosinophils % (A) 4 %; HCT 29.8 % (39.0-53.0); HGB 9.3 gm/dL (13.0-17.5); Hypochromasia Moderate; Lymphocytes # (A) 0.9 k/uL (1.0-4.8); Lymphocytes % (A) 18 %; MCH 27.9 pg (25.0-35.0); MCHC 31.2 g/dL (31.0-37.0); MCV 89.5 fL (80.0-100.0); Mean Platelet Volume 7.7; Monocytes # (A) 0.4 k/uL (0-1.0); Monocytes % (A) 8 %; Neutrophils # (A) 3.5 k/uL (1.3-7.7); Neutrophils % (A) 68 %; Platelet Count 304 k/uL (150-450); RBC 3.33 m/uL (4.30-5.90); RDW 14.5 % (11.5-15.5); WBC 5.1 k/uL (3.8-10.6)
[2024-02-17 15:00] LABS: ALT 10 U/L (4-49); AST 16 U/L (17-59); African American GFR (CKD) >90 (>60 ml/min/1.73 sqM); Albumin 3.4 g/dL (3.5-5.0); Alkaline Phosphatase 56 U/L (38-126); Blood Urea Nitrogen 20 mg/dL (9-20); Calcium 8.8 mg/dL (8.4-10.2); Chloride 96 mmol/L (98-107); Glucose 97 mg/dL (74-99); Magnesium 1.9 mg/dL (1.6-2.3); Non-African American GFR(CKD) >90 (>60 ml/min/1.73 sqM); Potassium 4.1 mmol/L (3.5-5.1); Sodium 137 mmol/L (137-145); Total Bilirubin 0.3 mg/dL (0.2-1.3); Total Protein 6.1 g/dL (6.3-8.2)
[2024-02-17 15:06] LABS: Anion Gap 5 mmol/L; Carbon Dioxide 36 mmol/L (22-30); Partial Thromboplastin Time 22.3 sec (22.0-30.0); Prothrombin Time 10.6 sec (10.0-12.5)
[2024-02-17 15:09] LABS: NT-Pro-B-Type Natriuretic Pept 380 pg/mL
--- NOTE | 2024-02-17 15:22 | CT ---
EXAMINATION TYPE: CT brain wo con DATE OF EXAM: 02/17/2024 COMPARISON: 05/02/2022 HISTORY: near syncope CT DLP: 1185.4 mGycm Automated exposure control for dose reduction was used. FINDINGS: There is moderate prominence of the sulci over the convexities consistent with moderate cortical atro phy. The ventricles and basal cisterns are within normal limits for the patient's age. There is no ma ss effect or shift of midline structures. There is no acute intra or extra-axial hemorrhage. The posterior fossa including the brainstem, fourth ventricle and cerebellopontine angles appear jeimy sly normal. The intraorbital contents are normal and symmetric. There are postsurgical changes of left mastoidectomy. There are marked chronic inflammatory changes i n the maxillary sinuses. There is marked fluid in the left mastoid air cells. IMPRESSION: 1. NO ACUTE BLEED OR MASS EFFECT. 2. STABLE MODERATE CORTICAL ATROPHY. 3. POSTSURGICAL CHANGES INVOLVING THE LEFT TEMPORAL BONE WITH MARKED FLUID IN LEFT MASTOID AIR CELLS. 4. MARKED CHRONIC INFLAMMATORY CHANGES IN THE MAXILLARY SINUSES. [facility], , 02/17/2024 3:19 PM
--- NOTE | 2024-02-17 15:35 | CT ---
CTA chest, abdomen and pelvis HISTORY: Syncope, evaluate for PE or aortic injury. History of AAA repair. COMPARISON: 05/03/2015. TECHNIQUE: Multiple axial images were obtained through the chest, abdomen and pelvis following the un eventful administration of nonionic IV contrast. Exam was performed according to the department CTA p rotocol. CTA CHEST: There is no thoracic aortic aneurysm or dissection. There is extensive atheromatous plaque in the aor tic arch. There are no filling defects within the pulmonary arterial circulation to suggest pulmonary embolism There is a large hiatal hernia. There are diffuse multiple tiny pulmonary nodules in the miliary pattern not clearly present on the p rior study from 03/22/2022. Differential diagnosis includes miliary tuberculosis, silicosis, pulmonar y sarcoidosis and metastasis among others.. There is no pleural effusion or pneumothorax. There are mild focal pleural parenchymal changes in the right lung base possibly indicating round ate lectasis or small acute pneumonia. There is no mediastinal, hilar or axillary adenopathy. There are 2 thoracic compression fractures status post vertebral plasty in the mid thoracic spine. CTA abdomen and pelvis: There is an aortic stent graft. There is no evidence of endoleak. There is no retroperitoneal hemorrh age or adenopathy. There are 3 tiny nonobstructing right renal calcifications. There are multiple nonobstructing left re nal calcifications largest of which is 9 mm. The gallbladder is contracted but normal. There is no focal mass or organomegaly involving liver, marin creas, spleen or adrenal glands although there is mild left adrenal gland nodularity most consistent with small adenomas. The bowel loops are normal in caliber and no dilatation or obstruction. No inflammatory changes are i dentified in the bowel wall and mesentery. There is marked diverticulosis of the colon but no CT evid ence of acute diverticulitis. There is no free peritoneal air or fluid. There is no pelvic mass or adenopathy. Detail of the pelvis is obscured by metallic artifact from the right hip prosthesis. The osseous structures are grossly intact. IMPRESSION: 1. No pulmonary embolism. 2. No thoracic aneurysm or dissection. 3. Miliary pulmonary nodules with differential diagnosis as described above. 4. Small focal opacification in the pleural-parenchymal right posterior upper lobe consistent with ro und atelectasis or acute infiltrate/pneumonia. 5. Aortic stent graft without evidence of endoleak are retroperitoneal hemorrhage. 6 marked diverticulosis of the colon without CT evidence of diverticulitis. 7. Bilateral nonobstructing renal calcifications, left greater than right as described above [facility], , 02/17/2024 3:33 PM
[2024-02-17] MEDS ORDERED: PNEUMONIA PROTOCOL UTILIZED 1 EACH MISC PO PRN (15:37)
--- NOTE | 2024-02-17 15:56 | XR ---
EXAMINATION TYPE: XR chest 1V portable DATE OF EXAM: 02/17/2024 COMPARISON: 09/08/2023 HISTORY: Dyspnea TECHNIQUE: Single frontal view of the chest is obtained. FINDINGS: The interstitial markings are diffusely mildly prominent possibly chronic in nature and unchanged com pared to the prior study. There is a small focal opacity in the right lung base which could represent a pneumonia and follow-up to resolution is recommended Heart size is normal. There is no pleural effusion or pneumothorax. IMPRESSION: 1. Small focal opacity in the right lung base. Possible pneumonia and short-term follow-up is recomme nded. 2. Prominence of the interstitial markings which is likely chronic. It is unchanged compared to previ ous IMPRESSION: No acute process. [facility], , 02/17/2024 3:53 PM
[2024-02-17] MEDS ORDERED: NALOXONE 0.4 MG/ML 1 ML VIAL IV PRN (16:06)
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
[2024-02-17] MEDS: AZITHROMYCIN 500 MG in SODIUM CHLORIDE 0.9% 250 ML IVPB STA (17:49)
[2024-02-17] MEDS: ONDANSETRON 4 MG/2 ML VIAL IVP PRN (17:50)
[2024-02-17] MEDS: IPRATROPIUM-ALBUTEROL 3 ML NEB INHALATION PRN (19:27)
[2024-02-17] MEDS: lisinopriL 20 MG TAB PO SCH (20:08)
[2024-02-17] MEDS: TAMSULOSIN 0.4 MG CAP.ER.24H PO SCH (20:24)
[2024-02-17] MEDS: ASPIRIN 81 MG PO SCH (20:24)
[2024-02-17 20:36] LABS: Appearance,Urine Clear (Clear); Bilirubin,Urine Negative (Negative); Blood,Urine Negative (Negative); Color,Urine Light Yellow; Glucose,Urine (UA) Negative (Negative); Ketones,Urine Negative (Negative); Leukocyte Esterase,Urine Negative (Negative); Nitrite,Urine Negative (Negative); Protein,Urine Negative (Negative); Urobilinogen,Urine <2.0 mg/dL (<2.0)
[2024-02-17 20:41] LABS: Specific Gravity,Urine >1.050 (1.001-1.035)
[2024-02-17] MEDS: HEPARIN SODIUM,PORCINE 5,000 UNIT/ML 1 ML VIAL SQ SCH (23:09)
[2024-02-17] MEDS: methylPREDNISolone SOD SUCCI 40 MG/ML 1 ML VIAL IV SCH (23:09)
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
[2024-02-18] MEDS: PANTOPRAZOLE 40 MG TABLET PO SCH (05:02)
[2024-02-18] MEDS: methylPREDNISolone SOD SUCCI 125 MG/2 ML VIAL IV SCH (05:02)
[2024-02-18 06:29] LABS: Glucose,Whole Blood 141 mg/dL (70-110)
[2024-02-18] MEDS: ONDANSETRON 4 MG/2 ML VIAL IVP PRN (06:39)
[2024-02-18 06:49] LABS: Basophils % (A) 0 %; Eosinophils % (A) 0 %; HCT 28.4 % (39.0-53.0); HGB 8.7 gm/dL (13.0-17.5); Hypochromasia Marked; Lymphocytes # (A) 0.3 k/uL (1.0-4.8); Lymphocytes % (A) 8 %; MCH 28.1 pg (25.0-35.0); MCHC 30.8 g/dL (31.0-37.0); MCV 91.3 fL (80.0-100.0); Mean Platelet Volume 7.7; Monocytes # (A) 0.1 k/uL (0-1.0); Monocytes % (A) 3 %; Neutrophils # (A) 3.1 k/uL (1.3-7.7); Neutrophils % (A) 89 %; Platelet Count 263 k/uL (150-450); RBC 3.11 m/uL (4.30-5.90); RDW 14.5 % (11.5-15.5); WBC 3.5 k/uL (3.8-10.6)
[2024-02-18 06:53] LABS: Glucose,Whole Blood 156 mg/dL (70-110)
[2024-02-18 06:54] LABS: ALT 9 U/L (4-49); AST 15 U/L (17-59); African American GFR (CKD) >90 (>60 ml/min/1.73 sqM); Albumin 3.1 g/dL (3.5-5.0); Albumin/Globulin Ratio 1.2; Alkaline Phosphatase 60 U/L (38-126); Anion Gap 1 mmol/L; Blood Urea Nitrogen 22 mg/dL (9-20); Calcium 8.9 mg/dL (8.4-10.2); Carbon Dioxide 36 mmol/L (22-30); Chloride 100 mmol/L (98-107); Globulin 2.6 g/dL; Glucose 136 mg/dL (74-99); Non-African American GFR(CKD) >90 (>60 ml/min/1.73 sqM); Potassium 4.7 mmol/L (3.5-5.1); Sodium 137 mmol/L (137-145); Total Bilirubin 0.3 mg/dL (0.2-1.3); Total Protein 5.7 g/dL (6.3-8.2)
[2024-02-18] MEDS: PANTOPRAZOLE 40 MG/10 ML VIAL IVP SCH (08:05)
[2024-02-18] MEDS: FUROSEMIDE 40 MG TAB PO SCH (08:05)
[2024-02-18] MEDS: METOPROLOL SUCCINATE (ER) 25 MG TAB.ER.24H PO SCH (08:07)
[2024-02-18] MEDS: ESCITALOPRAM 10 MG TAB PO SCH (08:16)
[2024-02-18] MEDS: AZITHROMYCIN 500 MG TAB PO SCH (08:16)
[2024-02-18] MEDS: FLUTICASONE NASAL 50MCG/SPRAY 16GM BTL EA NOSTRIL SCH (08:21)
[2024-02-18] MEDS: SYMBICORT 160-4.5 MCG INHALER INHALATION SCH (08:51)
[2024-02-18] MEDS: IPRATROPIUM-ALBUTEROL 3 ML NEB INHALATION SCH (08:51)
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
[2024-02-18] MEDS ORDERED: LIDOCAINE 1% INJ 10MG/ML (20 ML MDV) ONE (13:35)
[2024-02-18] MEDS ORDERED: PROPOFOL 10 MG/ML 20 ML VIAL IV ONE (13:35)
[2024-02-18] MEDS: LACTATED RINGERS 1,000 ML IV ONE (13:38)
--- NOTE | 2024-02-18 13:58 | P.PCN ---
Date of Procedure: 02/18/24 Procedure(s) Performed: BRIEF HISTORY: Patient is a 73-year-old, pleasant, white male scheduled for an upper endoscopy as well as of severe epigastric and severe nausea vomiting for the last 2 days duration.. PROCEDURE PERFORMED: Esophagogastroduodenoscopy with biopsy. PREOPERATIVE DIAGNOSIS: Severe epigastric pain/nausea vomiting of 2 days duration. IV sedation per anesthesia. PROCEDURE: After informed consent was obtained, the patient was brought into the endoscopy unit. IV sedation was administered by Anesthesia under continuous monitoring. Initially the Olympus GIF-140 video endoscope was inserted into the mouth. Esophagus intubated without any difficulty. It was gradually advanced into the stomach and duodenum and carefully examined. The bulb and the second part of the duodenum appeared normal. The scope at this time was withdrawn to the stomach, adequately insufflated with air, and upon careful examination, mucosa of the antrum, mild gastritis and biopsies were done for this area. Mucosa body, cardia and the fundus appeared normal. There was a moderate to large size hiatal hernia noted. The scope was then withdrawn into the esophagus. The GE junction was located at 35 cm from the incisors. There was a 2 cm linear ulceration in the distal esophagus with no active bleeding. No longer segment of Sal's esophagus extending from 35 to 32 cm from the incisors and multiple biopsies were done from this area. The rest of the esophagus appeared normal. the patient tolerated the procedure well. IMPRESSION: 1. 2 cm ulceration in the distal esophagus consistent with LA grade C reflux esophagitis. 2. 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 Moderate to large size hiatal hernia 4. Mild antral gastritis. RECOMMENDATIONS: The findings of this examination were discussed with the patient as well as his family. He will continue with return to 40 mg twice daily and follow reflux measures. Await biopsy results. advance diet as tolerated.
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
[2024-02-18 16:02] LABS: % Iron Saturation 8.55 (15.00-50.00); Ferritin 39.5 ng/mL (22.0-322.0)
[2024-02-18] MEDS: ACETAMINOPHEN TAB 325 MG TAB PO PRN (20:17)
[2024-02-18 20:54] LABS: Glucose,Whole Blood 162 mg/dL (70-110)
[2024-02-19 06:14] LABS: Glucose,Whole Blood 169 mg/dL (70-110)
[2024-02-19 08:06] LABS: HCT 25.8 % (39.0-53.0); HGB 8.1 gm/dL (13.0-17.5); Hypochromasia Moderate; MCH 28.4 pg (25.0-35.0); MCHC 31.2 g/dL (31.0-37.0); Mean Platelet Volume 7.8; Platelet Count 265 k/uL (150-450); RBC 2.84 m/uL (4.30-5.90); RDW 14.4 % (11.5-15.5); WBC 4.4 k/uL (3.8-10.6)
[2024-02-19 08:32] LABS: African American GFR (CKD) >90 (>60 ml/min/1.73 sqM); Blood Urea Nitrogen 29 mg/dL (9-20); Calcium 8.3 mg/dL (8.4-10.2); Chloride 94 mmol/L (98-107); Glucose 140 mg/dL (74-99); Non-African American GFR(CKD) 88 (>60 ml/min/1.73 sqM); Potassium 4.6 mmol/L (3.5-5.1); Sodium 136 mmol/L (137-145)
[2024-02-19 08:39] LABS: Anion Gap 5 mmol/L
[2024-02-19 08:49] LABS: Carbon Dioxide 37 mmol/L (22-30)
--- NOTE | 2024-02-19 10:56 | P.PN ---
Subjective Progress Note Date: 02/19/24 Principal diagnosis: Shortness of breath. Patient is a 73-year-old male with a history of severe COPD. His FEV1 is 34% of predicted. He also has chronic hypoxemic respiratory failure and uses home O2 at 4 L. Other medical history includes coronary disease, DVT, GERD, hyperlip idemia, hypertension, and laryngeal carcinoma. The patient's primary care physician is Dr. Balderas. Patient also follows in the office with Dr. Gonzalez for his pulmonary needs. Over the last , patient has had progressively worsening shortness of breath with associated cough that is productive producing green sputum. Denies fevers, chills. Denies chest pain, hemoptysis. Denies sick contacts. Of note, while at physical therapy appointment yesterday, patient was doing an exercise became dizzy/lightheaded, saw a bright light, and collapsed in a chair. He was diffusely sweating. He was also having episodes of nausea and vomiting. Mostly food product. Patient is unsure if he actually lost consciousness. Brain CT without contrast done on arrival did not show any acute intracranial hemorrhage or mass effect. Chronic inflammatory changes of maxillary sinuses. CT of the chest did not show any acute pulmonary embolism. No thoracic aneurysm or dissection. Small focal opacification of the pleural parenchymal right posterior upper lobe consistent with round atelectasis. Unable to exclude acute infiltrate/pneumonia. Diffuse miliary pulmonary nodules, which carries a broad differential diagnosis including miliary tuberculosis, fungal infection, silicosis, pulmonary sarcoidosis, metastasis, among other things. No significant mediastinal or hilar adenopathy. These findings not apparent on previous chest CT done back in May,. Patient's states that his laryngeal cancer was treated with radiation, last reported treatment May,. No history of metastatic disease. He continues to follow with an oncologist in the area. Does admit about a 25 pound weight loss over the last 6 months. 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 No history of occupational lung disease. Patient previously reports being worked up for autoimmune disorder at [facility]. No definitive acute of diagnosis was established per the patient. No known TB exposure history. CBC: WBC count 5.1, hemoglobin 9.3, hematocrit 29.8, platelets 304. CMP 137, potassium 4.1, chloride 96, serum bicarb 36, BUN 20, creatinine 0.77, glucose 97. Lactic 1.6. LFTs unremarkable. Troponin less than 0.012. NT proBNP 380. Negative for influenza, RSV, COVID. Placed on a combination of azithromycin and Rocephin in the emergency department. He is currently on 4 L/min nasal cannula. SpO2 96%. No acute distress. Afebrile. Vitals are stable. Progress note dated February 19, 2024. The patient is seen today in room 352. He was admitted with a diagnosis of COPD exacerbation. He is currently on saline at 20 cc an hour, and nasal cannula 5 L. He typically uses home O2 at 4 L. Clinically, he does feel better today. He is much less short of breath. Labs include a white count 4.4, hemoglobin 8.1, hematocrit 25.8, and a platelet count of 265,000. Sodium 136, potassium 4.6, chlorides 94, CO2 37, BUN 29, creatinine 0.82. Glucose is 140. Calcium 8.3. Shortly after admission, the patient had an episode of coffee-ground emesis, and has been seen by gastroenterology, and was to have a EGD. Those results are currently pending. Objective - Vital Signs Vital signs: Vital Signs Temp 98.2 F 02/18/24 20:06 Pulse 96 02/19/24 07:56 Resp 18 02/19/24 04:18 BP 104/63 02/19/24 04:18 Pulse Ox 91 L 02/19/24 07:43 FiO2 Intake & Output 02/18/24 02/19/24 02/19/24 18:59 06:59 18:59 Intake Total 200 360 Output Total 600 250 Balance -400 -250 360 Weight 72 kg Intake: IV 200 Oral 360 Output: Urine 600 250 Other: Voiding Method Urinal Urinal - Exam No acute distress, oriented 3. Only on 5 L. No overt respiratory distress. HEENT examination is grossly unremarkable. Mucous membranes are moist. No oral lesions. Neck supple. Full range of motion. No adenopathy thyromegaly or neck vein distention. Cardiovascular examination reveals regular rhythm rate. S1-S2 normal. No S3 or S4. No discernible murmur noted. Lungs reveal scattered bilateral rhonchi. No wheezes or crackles. Breath sounds equal. Abdomen soft bowel sounds are heard. No masses or tenderness. Extremities are intact. No cyanosis clubbing or edema. Skin is without rash or lesion. Neurologic examination is brief but nonfocal. - Labs CBC & Chem 7: 02/19/24 07:32 02/19/24 07:32 Labs: Abnormal Lab Results - Last 24 Hours (Table) 02/18/24 02/18/24 02/19/24 Range/Units 03:54 20:37 05:54 RBC (4.30-5.90) m/uL Hgb (13.0-17.5) gm/dL Hct (39.0-53.0) % Sodium (137-145) mmol/L Chloride (98-107) mmol/L Carbon Dioxide (22-30) mmol/L BUN (9-20) mg/dL Glucose (74-99) mg/dL POC Glucose (mg/dL) 162 H 169 H (70-110) mg/dL Calcium (8.4-10.2) mg/dL Iron 23 L (65-175) UG/DL % Saturation 8.55 L (15.00-50.00) Transferrin 192.0 L (204.0-354.0) mg/dL 02/19/24 02/19/24 Range/Units 07:32 07:32 RBC 2.84 L (4.30-5.90) m/uL Hgb 8.1 L (13.0-17.5) gm/dL Hct 25.8 L (39.0-53.0) % Sodium 136 L (137-145) mmol/L Chloride 94 L (98-107) mmol/L Carbon Dioxide 37 H (22-30) mmol/L BUN 29 H (9-20) mg/dL Glucose 140 H (74-99) mg/dL POC Glucose (mg/dL) (70-110) mg/dL Calcium 8.3 L (8.4-10.2) mg/dL Iron (65-175) UG/DL % Saturation (15.00-50.00) Transferrin (204.0-354.0) mg/dL Microbiology - Last 24 Hours (Table) 02/18/24 01:45 Gram Stain - Preliminary Sputum Sputum Culture - Preliminary 02/17/24 16:23 Blood Culture - Preliminary Blood 02/17/24 16:08 Blood Culture - Preliminary Blood Assessment and Plan Assessment: Suspect acute COPD exacerbation. Acute on chronic hypoxemic respiratory failure, secondary to above, chest CTA did not show any acute pulmonary embolism. No thoracic aneurysm or dissection. Small focal opacification of the pleural parenchymal right posterior upper lobe consistent with round atelectasis. Miliary pulmonary nodules with broad differential diagnosis including miliary tuberculosis, fungal infection, silicosis, pulmonary sarcoidosis, metastasis, among other things. No si gnificant mediastinal or hilar adenopathy. These findings not apparent on previous chest CT done back in May,. Possible upper GI bleed. Near syncopal event. Nonobstructing bilateral renal calculi. History of AAA with aortic stent graft, chest CTA did not show any evidence of endoleak or retroperitoneal hemorrhage. Severe chronic obstructive pulmonary disease, with an FEV1 34% of predicted. Chronic hypoxemic respiratory failure, secondary to above, maintained on 4 L/min nasal cannula 24/12. History of laryngeal cancer status post radiation, continues outpatient follow up. Unexplained 25 pound weight loss in the last 6 months. Anemia of chronic disease. History of DVT. History of hypertension. History of hyperlipidemia. History of coronary artery disease. Chronic ongoing tobacco dependence. Plan: Plan dated February 19, 2024. The patient is seen today in room 352. He continues on nasal cannula 5 L. He is getting saline at 20 cc an hour. He did have an EGD today. Those results are currently pending. He uses home oxygen at 4 L. Labs, x-rays, medications are reviewed. Prognosis is guarded. No additional recommendations are made. Time with Patient: Less than 30
[2024-02-19 11:42] LABS: Glucose,Whole Blood 137 mg/dL (70-110)
--- NOTE | 2024-02-19 13:36 | P.PN ---
Subjective Progress Note Date: 02/19/24 Principal diagnosis: GI bleed This is a pleasant 73-year-old male with a past medical history including coronary artery disease, anemia, history COPD, GERD, DVT, hypertension, hyp erlipidemia, abdominal aortic aneurysm status post repair, past heavy alcohol use, and laryngeal cancer treated in 2022 with radiation who had presented to the emergency department with complaints of cough, congestion, shortness of breath and syncopal episode. He was admitted to the hospital for COPD exacerbation. Overnight patient had severe epigastric pain which she states is followed by emesis 4-5 times which was reported as coffee-ground. Gastroenterology was consulted for concern for GI bleed. Patient denies any history of previous GI bleed. He states he has a remote history of peptic ulcer disease. Last upper endoscopy many years ago. States he had colonoscopy about 2 years ago with no report available. He denies any anticoagulation, has taken prednisone in the past for COPD and active exacerbations and is on aspirin 81 mg twice daily. Denies any other NSAID use only uses Tylenol as needed for pain. Patient presented with a normocytic normochromic anemia, gastric occult blood is negative. 02/19/2024 Patient seen and examined today as a follow-up. Yesterday he underwent upper endoscopy with findings of 2 cm ulceration in the distal esophagus consistent with LA grade C reflux esophagitis. Long segment Ervin's esophagus, moderate to large hiatal hernia and mild antral gastritis. He currently denies any abdominal pain, no nausea or vomiting. Hemoglobin 8.1 platelet count 265,000 Objective - Vital Signs Vital signs: Vital Signs Temp 98.2 F 02/18/24 20:06 Pulse 96 02/19/24 07:56 Resp 18 02/19/24 04:18 BP 104/63 02/19/24 04:18 Pulse Ox 91 L 02/19/24 07:43 FiO2 Intake & Output 02/18/24 02/19/24 02/19/24 18:59 06:59 18:59 Intake Total 200 Output Total 600 250 Balance -400 -250 Weight 72 kg Intake: IV 200 Output: Urine 600 250 Other: Voiding Method Urinal Urinal - Exam General appearance: The patient is alert, oriented, appears in no acute distress. HET: Head is normocephalic and atraumatic. Conjunctiva pink. Sclera anicteric. Neck: Supple without lymphadenopathy. Abdomen: Soft, nontender, nondistended with bowel sounds. No guarding or rigidity. Extremities: Normal skin color and turgor. No pedal edema Skin: No rashes, no jaundice Neurological: No focal deficits. Alert and oriented. - Labs CBC & Chem 7: 02/19/24 07:32 02/19/24 07:32 Labs: Abnormal Lab Results - Last 24 Hours (Table) 02/18/24 02/18/24 02/19/24 Range/Units 03:54 20:37 05:54 RBC (4.30-5.90) m/uL Hgb (13.0-17.5) gm/dL Hct (39.0-53.0) % Sodium (137-145) mmol/L Chloride (98-107) mmol/L Carbon Dioxide (22-30) mmol/L BUN (9-20) mg/dL Glucose (74-99) mg/dL POC Glucose (mg/dL) 162 H 169 H (70-110) mg/dL Calcium (8.4-10.2) mg/dL Iron 23 L (65-175) UG/DL % Saturation 8.55 L (15.00-50.00) Transferrin 192.0 L (204.0-354.0) mg/dL 02/19/24 02/19/24 Range/Units 07:32 07:32 RBC 2.84 L (4.30-5.90) m/uL Hgb 8.1 L (13.0-17.5) gm/dL Hct 25.8 L (39.0-53.0) % Sodium 136 L (137-145) mmol/L Chloride 94 L (98-107) mmol/L Carbon Dioxide 37 H (22-30) mmol/L BUN 29 H (9-20) mg/dL Glucose 140 H (74-99) mg/dL POC Glucose (mg/dL) (70-110) mg/dL Calcium 8.3 L (8.4-10.2) mg/dL Iron (65-175) UG/DL % Saturation (15.00-50.00) Transferrin (204.0-354.0) mg/dL Microbiology - Last 24 Hours (Table) 02/17/24 16:23 Blood Culture - Preliminary Blood 02/17/24 16:08 Blood Culture - Preliminary Blood 02/18/24 01:45 Gram Stain - Preliminary Sputum Assessment and Plan (1) Coffee ground emesis Narrative/Plan: 73-year-old male presenting with shortness of breath COPD exacerbation with cough and congestion and near syncope. Multiple comorbidities with history of laryngeal cancer treated in 2022 with radiation and history of GERD. Reported acute epigastric pain followed by 4-5 episodes of coffee-ground emesis. Patient does have a history of remote peptic ulcer disease, previous history of heavy alcohol use as well as being on aspirin 81 mg twice daily for coronary artery disease. Possible etiologies include peptic ulcer disease, gastritis, esophagitis, AVM, varices or other possible etiologies. Hemoglobin stable, will order iron studies. Looking back does have history of anemia and takes iron at home. Upper endoscopy completed with findings of ulceration in distal esophagus consistent with LA grade C reflux esophagitis, long segment Ervin's esophagus and moderate to large size hiatal hernia with mild antral gastritis. Recommend continuing Protonix 40 mg twice daily. Antireflux measures discussed with patient. Follow-up for biopsies. Current Visit: Yes Status: Acute Code(s): K92.0 - HEMATEMESIS SNOMED Code(s): 71853390 (2) Epigastric pain Current Visit: Yes Status: Acute Code(s): R10.13 - EPIGASTRIC PAIN SNOMED Code(s): 86384304 (3) Normocytic normochromic anemia Current Visit: Yes Status: Acute Code(s): D64.9 - ANEMIA, UNSPECIFIED SNOMED Code(s): 52075769 (4) Nausea and vomiting Current Visit: Yes Status: Acute Code(s): R11.2 - NAUSEA WITH VOMITING, UNSPECIFIED SNOMED Code(s): 70599711 (5) COPD (chronic obstructive pulmonary disease) Narrative/Plan: Pulmonology following, patient is cleared for upper endoscopy. Current Visit: Yes Status: Acute Code(s): J44.9 - CHRONIC OBSTRUCTIVE PULMONARY DISEASE, UNSPECIFIED SNOMED Code(s): 70331272 (6) Near syncope Current Visit: Yes Status: Acute Code(s): R55 - SYNCOPE AND COLLAPSE SNOMED Code(s): 393896588 (7) CAD (coronary artery disease) Narrative/Plan: On ASA 81 mg BID Current Visit: No Status: Acute Code(s): I25.10 - ATHSCL HEART DISEASE OF [place] CORONARY ARTERY W/O ANG PCTRS SNOMED Code(s): 14470474 (8) Barretts esophagus Current Visit: Yes Status: Acute Code(s): K22.70 - ERVIN'S ESOPHAGUS WITHOUT DYSPLASIA SNOMED Code(s): 298216509 (9) Hiatal hernia Current Visit: Yes Status: Acute Code(s): K44.9 - DIAPHRAGMATIC HERNIA WITHOUT OBSTRUCTION OR GANGRENE SNOMED Code(s): 08764787 (10) Esophagitis Current Visit: Yes Status: Acute Code(s): K20.90 - ESOPHAGITIS, UNSPECIFIED WITHOUT BLEEDING SNOMED Code(s): 20030899 Plan: 1. Continue symptomatic and supportive care 2. Continue Protonix 40 mg twice daily, prescription sent 3. Patient is status post upper endoscopy 4. Discussed with patient antireflux measures 5. Patient is cleared from gastroenterology for discharge. Follow-up in 1 to 2 weeks for biopsy results Thank you for this consultation, gastroenterology will sign off at this time. Dr. Porter Barrera I agree with the dictator's note, documented as a scribe by Joanne Riley.
--- NOTE | 2024-02-19 16:11 | P.PN ---
Subjective Progress Note Date: 02/19/24 H&P Date: 02/18/24 Chief Complaint: Progressive shortness of breath, cough, near syncope This is a 73-year-old gentleman with past medical history significant for recent inpatient admission for COPD exacerbation/pneumonia-discharged on 09/04/2023, advanced COPD, chronic hypoxic respiratory failure wears 4 L nasal cannula O2 at home, nicotine dependence , laryngeal cancer with radiation treatments 2022 , prior alcohol abuse , abdominal aortic aneurysm repair ,CAD, hypertension, hyperlipidemia and multiple other medical issues presented to the ER with c omplaints of progressive worsening dyspnea accompanied by nonproductive cough and near syncope. Brain CT reported no acute bleed or mass effect, thoracic aorta CT reported no PE, no thoracic aneurysm or dissection, miliary pulmonary nodules with differential diagnosis, small focal opacification of the pleural- parenchymal right posterior upper lobe, aortic stent graft without evidence of endoleak or retroperitoneal hemorrhage, marked diverticulosis of the colon without evidence of diverticulitis, bilateral nonobstructing renal calcifications.Chest x-ray reported no acute process. During the night patient had coffee ground emesis, transferred to the ICU, evaluated by GI and scheduled for EGD today. Hemoglobin 8.7, platelets 263. Electrolytes and renal function stable. Gastric occult blood negative. Patient reports he takes aspirin 81 mg twice a day, not currently on steroids at home. Viral studies negative, procalcitonin negative, 0.10. 02/19/24 completed EGD yesterday reporting 2 cm ulceration in the distal esophagus consistent with LA grade C reflux esophagitis, long segment Sal's esophagus, moderate to large size hiatal hernia, mild antral gastritis, biopsies obtained. Maintained on PPI denies nausea vomiting or diarrhea. Denies abdominal pain. Hemoglobin 8.1, platelets 265. Creatinine 0.82. Maintaining O2 sats in the 90s on 5 L nasal cannula. Objective - Vital Signs Vital signs: Vital Signs Temp 97.6 F 02/19/24 12:00 Pulse 60 02/19/24 15:37 Resp 18 02/19/24 12:00 BP 122/61 02/19/24 12:00 Pulse Ox 93 L 02/19/24 12:00 FiO2 Intake & Output 02/18/24 02/19/24 02/19/24 18:59 06:59 18:59 Intake Total 200 600 Output Total 600 250 600 Balance -400 -250 0 Weight 72 kg Intake: IV 200 Oral 600 Output: Urine 600 250 600 Other: Voiding Method Urinal Urinal Urinal - Exam GENERAL: Alert and oriented x3, Sitting up in bed, no acute distress. HEENT: Normocephalic, atraumatic ,pupils are round and equal, No conjunctiva pallor. Sclera anicteric. CARDIOVASCULAR: S1 and S2 present. Systolic murmur. PULMONARY: Unlabored, equal air entry, diminished. ABDOMEN: Soft, nondistended, nontender, no guarding, no rigidity. +BS EXTREMITIES: No pedal edema. NEUROLOGICAL: Cranial nerves II through XII grossly intact. No focal deficits. Strength and sensation grossly intact. SKIN: No rashes. Warm and dry. - Labs CBC & Chem 7: 02/19/24 07:32 02/19/24 07:32 Labs: Abnormal Lab Results - Last 24 Hours (Table) 02/18/24 02/18/24 02/19/24 Range/Units 03:54 20:37 05:54 RBC (4.30-5.90) m/uL Hgb (13.0-17.5) gm/dL Hct (39.0-53.0) % Sodium (137-145) mmol/L Chloride (98-107) mmol/L Carbon Dioxide (22-30) mmol/L BUN (9-20) mg/dL Glucose (74-99) mg/dL POC Glucose (mg/dL) 162 H 169 H (70-110) mg/dL Calcium (8.4-10.2) mg/dL Iron 23 L (65-175) UG/DL % Saturation 8.55 L (15.00-50.00) Transferrin 192.0 L (204.0-354.0) mg/dL 02/19/24 02/19/24 02/19/24 Range/Units 07:32 07:32 11:40 RBC 2.84 L (4.30-5.90) m/uL Hgb 8.1 L (13.0-17.5) gm/dL Hct 25.8 L (39.0-53.0) % Sodium 136 L (137-145) mmol/L Chloride 94 L (98-107) mmol/L Carbon Dioxide 37 H (22-30) mmol/L BUN 29 H (9-20) mg/dL Glucose 140 H (74-99) mg/dL POC Glucose (mg/dL) 137 H (70-110) mg/dL Calcium 8.3 L (8.4-10.2) mg/dL Iron (65-175) UG/DL % Saturation (15.00-50.00) Transferrin (204.0-354.0) mg/dL Microbiology - Last 24 Hours (Table) 02/18/24 01:45 Gram Stain - Preliminary Sputum Sputum Culture - Preliminary 02/17/24 16:23 Blood Culture - Preliminary Blood 02/17/24 16:08 Blood Culture - Preliminary Blood Assessment and Plan Assessment: Acute COPD exacerbation in a patient with history of severe COPD Acute epigastric pain with coffee ground emesis, anemia, status post EGD reporting 2 cm ulceration in the distal esophagus consistent with LA grade C reflux esophagitis, long segment Sal's esophagus, moderate to large size hiatal hernia, mild antral gastritis, biopsy results pending Acute on chronic hypoxic respiratory failure secondary to the above, wears 4 L nasal cannula at home Miliary pulmonary nodules, reported per CT Gastroesophageal reflux disease Chronic anemia, iron deficient Benign prostatic hypertrophy Hypertension Ongoing nicotine dependence History of laryngeal carcinoma, status post radiation treatments 2022. History of alcohol abuse Plan: Continue on current medication regimen ,monitoring and symptomatic treatment. Continue on PPI .aggressive pulmonary toileting with nebulized bronchodilators, IV steroids and Symbicort. Increase ambulation as tolerated, PT consulted. The impression and plan of care has been dictated as directed. : I performed a history and examination of this patient, discussed the same with the dictator. I agree with the dictator's note ,documented as a scribe. Any additional findings or plans will be noted.
[2024-02-19 16:36] LABS: Glucose,Whole Blood 127 mg/dL (70-110)
[2024-02-19] MEDS: PANTOPRAZOLE 40 MG TABLET PO SCH (17:23)
[2024-02-19 20:23] LABS: Glucose,Whole Blood 190 mg/dL (70-110)
[2024-02-20 06:13] LABS: Glucose,Whole Blood 157 mg/dL (70-110)
[2024-02-20 06:19] LABS: Basophils % (A) 0 %; Eosinophils % (A) 0 %; HCT 26.2 % (39.0-53.0); HGB 8.3 gm/dL (13.0-17.5); Hypochromasia Moderate; Lymphocytes # (A) 0.3 k/uL (1.0-4.8); Lymphocytes % (A) 6 %; MCH 28.4 pg (25.0-35.0); MCHC 31.6 g/dL (31.0-37.0); MCV 89.8 fL (80.0-100.0); Mean Platelet Volume 8.1; Monocytes # (A) 0.2 k/uL (0-1.0); Monocytes % (A) 4 %; Neutrophils # (A) 4.1 k/uL (1.3-7.7); Neutrophils % (A) 88 %; Platelet Count 253 k/uL (150-450); RBC 2.92 m/uL (4.30-5.90); RDW 14.5 % (11.5-15.5); WBC 4.7 k/uL (3.8-10.6)
[2024-02-20 06:35] LABS: African American GFR (CKD) >90 (>60 ml/min/1.73 sqM); Anion Gap -2 mmol/L; Blood Urea Nitrogen 28 mg/dL (9-20); Calcium 8.1 mg/dL (8.4-10.2); Carbon Dioxide 39 mmol/L (22-30); Chloride 91 mmol/L (98-107); Glucose 130 mg/dL (74-99); Non-African American GFR(CKD) >90 (>60 ml/min/1.73 sqM); Potassium 4.4 mmol/L (3.5-5.1); Sodium 128 mmol/L (137-145)
[2024-02-20] MEDS: lisinopriL 20 MG TAB PO SCH (09:13)
[2024-02-20] MEDS: SODIUM CHLORIDE 0.9% 1,000 ML IV SCH (09:24)
--- NOTE | 2024-02-20 10:25 | P.PN ---
Subjective Progress Note Date: 02/20/24 Principal diagnosis: Shortness of breath. Patient is a 73-year-old male with a history of severe COPD. His FEV1 is 34% of predicted. He also has chronic hypoxemic respiratory failure and uses home O2 at 4 L. Other medical history includes coronary disease, DVT, GERD, hyperlip idemia, hypertension, and laryngeal carcinoma. The patient's primary care physician is Dr. Balderas. Patient also follows in the office with Dr. Gonzalez for his pulmonary needs. Over the last , patient has had progressively worsening shortness of breath with associated cough that is productive producing green sputum. Denies fevers, chills. Denies chest pain, hemoptysis. Denies sick contacts. Of note, while at physical therapy appointment yesterday, patient was doing an exercise became dizzy/lightheaded, saw a bright light, and collapsed in a chair. He was diffusely sweating. He was also having episodes of nausea and vomiting. Mostly food product. Patient is unsure if he actually lost consciousness. Brain CT without contrast done on arrival did not show any acute intracranial hemorrhage or mass effect. Chronic inflammatory changes of maxillary sinuses. CT of the chest did not show any acute pulmonary embolism. No thoracic aneurysm or dissection. Small focal opacification of the pleural parenchymal right posterior upper lobe consistent with round atelectasis. Unable to exclude acute infiltrate/pneumonia. Diffuse miliary pulmonary nodules, which carries a broad differential diagnosis including miliary tuberculosis, fungal infection, silicosis, pulmonary sarcoidosis, metastasis, among other things. No significant mediastinal or hilar adenopathy. These findings not apparent on previous chest CT done back in May,. Patient's states that his laryngeal cancer was treated with radiation, last reported treatment May,. No history of metastatic disease. He continues to follow with an oncologist in the area. Does admit about a 25 pound weight loss over the last 6 months. 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 No history of occupational lung disease. Patient previously reports being worked up for autoimmune disorder at [facility]. No definitive acute of diagnosis was established per the patient. No known TB exposure history. CBC: WBC count 5.1, hemoglobin 9.3, hematocrit 29.8, platelets 304. CMP 137, potassium 4.1, chloride 96, serum bicarb 36, BUN 20, creatinine 0.77, glucose 97. Lactic 1.6. LFTs unremarkable. Troponin less than 0.012. NT proBNP 380. Negative for influenza, RSV, COVID. Placed on a combination of azithromycin and Rocephin in the emergency department. He is currently on 4 L/min nasal cannula. SpO2 96%. No acute distress. Afebrile. Vitals are stable. Progress note dated February 19, 2024. The patient is seen today in room 352. He was admitted with a diagnosis of COPD exacerbation. He is currently on saline at 20 cc an hour, and nasal cannula 5 L. He typically uses home O2 at 4 L. Clinically, he does feel better today. He is much less short of breath. Labs include a white count 4.4, hemoglobin 8.1, hematocrit 25.8, and a platelet count of 265,000. Sodium 136, potassium 4.6, chlorides 94, CO2 37, BUN 29, creatinine 0.82. Glucose is 140. Calcium 8.3. Shortly after admission, the patient had an episode of coffee-ground emesis, and has been seen by gastroenterology, and was to have a EGD. Those results are currently pending. Progress note dated February 20, 2024. 73-year-old male seen today in room 352. He is resting comfortably. He is on 4 L, which is what he uses at home. He is not receiving any IV fluids. He had an EGD because of GI bleed, which revealed a 2 cm distal esophageal ulcer, evidence of Sal's esophagus, a moderate to large hiatal hernia, and antral gastritis. The patient's not had any additional GI bleeding. White count is 4.7, hemoglobin 8.3, hematocrit 26.2, and platelet count was normal. Sodium 128, potassium 4.4, chloride 91, CO2 39, BUN 28, creatinine 0.78. Glucose is 157. Calcium 8.1. Objective - Vital Signs Vital signs: Vital Signs Temp 97.5 F L 02/20/24 08:03 Pulse 69 02/20/24 08:03 Resp 22 02/20/24 08:03 BP 118/61 02/20/24 08:03 Pulse Ox 95 02/20/24 08:03 FiO2 Intake & Output 02/19/24 02/20/24 02/20/24 18:59 06:59 18:59 Intake Total 1140 240 Output Total 600 400 Balance 540 -400 240 Weight 57.6 kg Intake: Oral 1140 240 Output: Urine 600 400 Other: Voiding Method Urinal Toilet Urinal - Exam No acute distress, oriented 3. Only on 4 L. No overt respiratory distress. HEENT examination is grossly unremarkable. Mucous membranes are moist. No oral lesions. Neck supple. Full range of motion. No adenopathy thyromegaly or neck vein distention. Cardiovascular examination reveals regular rhythm rate. S1-S2 normal. No S3 or S4. No discernible murmur noted. Lungs reveal scattered bilateral rhonchi. No wheezes or crackles. Breath sounds equal. Abdomen soft bowel sounds are heard. No masses or tenderness. Extremities are intact. No cyanosis clubbing or edema. Skin is without rash or lesion. Neurologic examination is brief but nonfocal. - Labs CBC & Chem 7: 02/20/24 05:48 02/20/24 05:48 Labs: Abnormal Lab Results - Last 24 Hours (Table) 02/19/24 02/19/24 02/19/24 Range/Units 11:40 16:35 20:21 RBC (4.30-5.90) m/uL Hgb (13.0-17.5) gm/dL Hct (39.0-53.0) % Lymphocytes # (1.0-4.8) k/uL Sodium (137-145) mmol/L Chloride (98-107) mmol/L Carbon Dioxide (22-30) mmol/L BUN (9-20) mg/dL Glucose (74-99) mg/dL POC Glucose (mg/dL) 137 H 127 H 190 H (70-110) mg/dL Calcium (8.4-10.2) mg/dL 02/20/24 02/20/24 02/20/24 Range/Units 05:48 05:48 06:12 RBC 2.92 L (4.30-5.90) m/uL Hgb 8.3 L (13.0-17.5) gm/dL Hct 26.2 L (39.0-53.0) % Lymphocytes # 0.3 L (1.0-4.8) k/uL Sodium 128 L (137-145) mmol/L Chloride 91 L (98-107) mmol/L Carbon Dioxide 39 H (22-30) mmol/L BUN 28 H (9-20) mg/dL Glucose 130 H (74-99) mg/dL POC Glucose (mg/dL) 157 H (70-110) mg/dL Calcium 8.1 L (8.4-10.2) mg/dL Microbiology - Last 24 Hours (Table) 02/18/24 01:45 Gram Stain - Final Sputum Sputum Culture - Final 02/17/24 16:23 Blood Culture - Preliminary Blood 02/17/24 16:08 Blood Culture - Preliminary Blood Assessment and Plan Assessment: Suspect acute COPD exacerbation. Acute on chronic hypoxemic respiratory failure, secondary to above. Upper GI bleed, secondary to 2 cm distal esophageal ulcer, Sal's esophagus, antral gastritis, and moderate to large hiatal hernia. Near syncopal event. Nonobstructing bilateral renal calculi. History of AAA with aortic stent graft, chest CTA did not show any evidence of endoleak or retroperitoneal hemorrhage. Severe chronic obstructive pulmonary disease, with an FEV1 34% of predicted. Chronic hypoxemic respiratory failure, secondary to above, maintained on 4 L/min nasal cannula 24/12. History of laryngeal cancer status post radiation, continues outpatient follow up. Unexplained 25 pound weight loss in the last 6 months. Anemia of chronic disease. History of DVT. History of hypertension. History of hyperlipidemia. History of coronary artery disease. Chronic ongoing tobacco dependence. Plan: Plan dated February 19, 2024. The patient is seen today in room 352. He continues on nasal cannula 5 L. He is getting saline at 20 cc an hour. He did have an EGD today. Those results are currently pending. He uses home oxygen at 4 L. Labs, x-rays, medications are reviewed. Prognosis is guarded. No additional recommendations are made. Plan dated February 20, 2024. The patient's EGD revealed evidence of a 2 cm distal esophageal ulcer, a segment of Sal's esophagus, moderate to large hiatal hernia, and antral gastritis. The patient has had no further GI bleeding. His COPD appears to be pretty much at baseline. He is on 4 L, which is what he uses at home. Labs, x-rays, medications are reviewed. We will continue to follow. Prognosis is guarded. Time with Patient: Less than 30
[2024-02-20] MEDS ORDERED: traMADol 50 MG TAB PO PRN (10:38)
[2024-02-20] MEDS: IBUPROFEN 600 MG TAB PO PRN (11:22)
[2024-02-20 11:52] LABS: Glucose,Whole Blood 128 mg/dL (70-110)
[2024-02-20 12:33] VITALS: BMI 17.6
[2024-02-20 16:45] LABS: Glucose,Whole Blood 129 mg/dL (70-110)
[2024-02-20 20:08] LABS: Glucose,Whole Blood 129 mg/dL (70-110)
[2024-02-21 06:14] LABS: Glucose,Whole Blood 137 mg/dL (70-110)
[2024-02-21 08:17] LABS: Basophils % (A) 0 %; Eosinophils % (A) 0 %; HCT 28.6 % (39.0-53.0); HGB 8.9 gm/dL (13.0-17.5); Hypochromasia Slight; Lymphocytes # (A) 0.2 k/uL (1.0-4.8); Lymphocytes % (A) 6 %; MCH 27.7 pg (25.0-35.0); MCHC 31.1 g/dL (31.0-37.0); MCV 88.9 fL (80.0-100.0); Mean Platelet Volume 8.2; Monocytes # (A) 0.2 k/uL (0-1.0); Monocytes % (A) 6 %; Neutrophils # (A) 2.9 k/uL (1.3-7.7); Neutrophils % (A) 87 %; Platelet Count 263 k/uL (150-450); RBC 3.22 m/uL (4.30-5.90); RDW 14.2 % (11.5-15.5); WBC 3.3 k/uL (3.8-10.6)
[2024-02-21 08:41] LABS: African American GFR (CKD) >90 (>60 ml/min/1.73 sqM); Anion Gap -2 mmol/L; Blood Urea Nitrogen 27 mg/dL (9-20); Calcium 7.8 mg/dL (8.4-10.2); Carbon Dioxide 40 mmol/L (22-30); Chloride 92 mmol/L (98-107); Glucose 105 mg/dL (74-99); Non-African American GFR(CKD) 86 (>60 ml/min/1.73 sqM); Potassium 4.1 mmol/L (3.5-5.1); Sodium 130 mmol/L (137-145)
[2024-02-21] MEDS: SODIUM CHLORIDE 0.65% NASAL SPRAY 44 ML BTL NASAL PRN (10:13)
--- NOTE | 2024-02-21 11:22 | P.PN ---
Subjective Progress Note Date: 02/21/24 Principal diagnosis: Shortness of breath. Patient is a 73-year-old male with a history of severe COPD. His FEV1 is 34% of predicted. He also has chronic hypoxemic respiratory failure and uses home O2 at 4 L. Other medical history includes coronary disease, DVT, GERD, hyperlip idemia, hypertension, and laryngeal carcinoma. The patient's primary care physician is Dr. Balderas. Patient also follows in the office with Dr. Gonzalez for his pulmonary needs. Over the last , patient has had progressively worsening shortness of breath with associated cough that is productive producing green sputum. Denies fevers, chills. Denies chest pain, hemoptysis. Denies sick contacts. Of note, while at physical therapy appointment yesterday, patient was doing an exercise became dizzy/lightheaded, saw a bright light, and collapsed in a chair. He was diffusely sweating. He was also having episodes of nausea and vomiting. Mostly food product. Patient is unsure if he actually lost consciousness. Brain CT without contrast done on arrival did not show any acute intracranial hemorrhage or mass effect. Chronic inflammatory changes of maxillary sinuses. CT of the chest did not show any acute pulmonary embolism. No thoracic aneurysm or dissection. Small focal opacification of the pleural parenchymal right posterior upper lobe consistent with round atelectasis. Unable to exclude acute infiltrate/pneumonia. Diffuse miliary pulmonary nodules, which carries a broad differential diagnosis including miliary tuberculosis, fungal infection, silicosis, pulmonary sarcoidosis, metastasis, among other things. No significant mediastinal or hilar adenopathy. These findings not apparent on previous chest CT done back in May,. Patient's states that his laryngeal cancer was treated with radiation, last reported treatment May,. No history of metastatic disease. He continues to follow with an oncologist in the area. Does admit about a 25 pound weight loss over the last 6 months. 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 No history of occupational lung disease. Patient previously reports being worked up for autoimmune disorder at [facility]. No definitive acute of diagnosis was established per the patient. No known TB exposure history. CBC: WBC count 5.1, hemoglobin 9.3, hematocrit 29.8, platelets 304. CMP 137, potassium 4.1, chloride 96, serum bicarb 36, BUN 20, creatinine 0.77, glucose 97. Lactic 1.6. LFTs unremarkable. Troponin less than 0.012. NT proBNP 380. Negative for influenza, RSV, COVID. Placed on a combination of azithromycin and Rocephin in the emergency department. He is currently on 4 L/min nasal cannula. SpO2 96%. No acute distress. Afebrile. Vitals are stable. Progress note dated February 19, 2024. The patient is seen today in room 352. He was admitted with a diagnosis of COPD exacerbation. He is currently on saline at 20 cc an hour, and nasal cannula 5 L. He typically uses home O2 at 4 L. Clinically, he does feel better today. He is much less short of breath. Labs include a white count 4.4, hemoglobin 8.1, hematocrit 25.8, and a platelet count of 265,000. Sodium 136, potassium 4.6, chlorides 94, CO2 37, BUN 29, creatinine 0.82. Glucose is 140. Calcium 8.3. Shortly after admission, the patient had an episode of coffee-ground emesis, and has been seen by gastroenterology, and was to have a EGD. Those results are currently pending. Progress note dated February 20, 2024. 73-year-old male seen today in room 352. He is resting comfortably. He is on 4 L, which is what he uses at home. He is not receiving any IV fluids. He had an EGD because of GI bleed, which revealed a 2 cm distal esophageal ulcer, evidence of Sal's esophagus, a moderate to large hiatal hernia, and antral gastritis. The patient's not had any additional GI bleeding. White count is 4.7, hemoglobin 8.3, hematocrit 26.2, and platelet count was normal. Sodium 128, potassium 4.4, chloride 91, CO2 39, BUN 28, creatinine 0.78. Glucose is 157. Calcium 8.1. Progress note dated February 21, 2024. 73-year-old male who is seen in room 352. Currently, the patient is doing reasonably well. He has no specific complaints. His breathing is stable. The patient underwent an EGD, for upper GI bleed. Please see my note above. Currently he is on 4 L, with saturations at 95%. Laboratory data includes a white count of 3.3, hemoglobin 8.9, hematocrit 28.6, and a platelet count of 263,000. Sodium 130, potassium 4.1, chloride 92, CO2 40, BUN 27 and creatinine 0.87. Glucose is 105. Calcium is 7.8. Objective - Vital Signs Vital signs: Vital Signs Temp 97.8 F 02/21/24 07:20 Pulse 72 02/21/24 11:17 Resp 17 02/21/24 11:16 BP 139/77 02/21/24 11:16 Pulse Ox 95 02/21/24 11:16 FiO2 Intake & Output 02/20/24 02/21/24 02/21/24 18:59 06:59 18:59 Intake Total 1318 20 240 Output Total 250 500 950 Balance 6444 -750 -582 Weight 57.6 kg 75.2 kg Intake: IV 20 Invasive Line 3 20 Oral 1318 240 Output: Urine 250 500 950 Other: Voiding Method Toilet Urinal Toilet Urinal Urinal # Voids 1 1 - Exam No acute distress, oriented 3. Only on 4 L. No overt respiratory distress. HEENT examination is grossly unremarkable. Mucous membranes are moist. No oral lesions. Neck supple. Full range of motion. No adenopathy thyromegaly or neck vein distention. Cardiovascular examination reveals regular rhythm rate. S1-S2 normal. No S3 or S4. No discernible murmur noted. Lungs reveal scattered bilateral rhonchi. No wheezes or crackles. Breath sounds equal. Abdomen soft bowel sounds are heard. No masses or tenderness. Extremities are intact. No cyanosis clubbing or edema. Skin is without rash or lesion. Neurologic examination is brief but nonfocal. - Labs CBC & Chem 7: 02/21/24 07:04 02/21/24 07:04 Labs: Abnormal Lab Results - Last 24 Hours (Table) 02/20/24 02/20/24 02/20/24 Range/Units 11:50 16:44 20:06 WBC (3.8-10.6) k/uL RBC (4.30-5.90) m/uL Hgb (13.0-17.5) gm/dL Hct (39.0-53.0) % Lymphocytes # (1.0-4.8) k/uL Sodium (137-145) mmol/L Chloride (98-107) mmol/L Carbon Dioxide (22-30) mmol/L BUN (9-20) mg/dL Glucose (74-99) mg/dL POC Glucose (mg/dL) 128 H 129 H 129 H (70-110) mg/dL Calcium (8.4-10.2) mg/dL 02/21/24 02/21/24 02/21/24 Range/Units 06:13 07:04 07:04 WBC 3.3 L (3.8-10.6) k/uL RBC 3.22 L (4.30-5.90) m/uL Hgb 8.9 L (13.0-17.5) gm/dL Hct 28.6 L (39.0-53.0) % Lymphocytes # 0.2 L (1.0-4.8) k/uL Sodium 130 L (137-145) mmol/L Chloride 92 L (98-107) mmol/L Carbon Dioxide 40 H (22-30) mmol/L BUN 27 H (9-20) mg/dL Glucose 105 H (74-99) mg/dL POC Glucose (mg/dL) 137 H (70-110) mg/dL Calcium 7.8 L (8.4-10.2) mg/dL Microbiology - Last 24 Hours (Table) 02/17/24 16:23 Blood Culture - Preliminary Blood 02/18/24 01:45 Gram Stain - Final Sputum Sputum Culture - Final Assessment and Plan Assessment: Suspect acute COPD exacerbation. Acute on chronic hypoxemic respiratory failure, secondary to above. Upper GI bleed, secondary to 2 cm distal esophageal ulcer, Sal's esophagus, antral gastritis, and moderate to large hiatal hernia. Near syncopal event. Nonobstructing bilateral renal calculi. History of AAA with aortic stent graft, chest CTA did not show any evidence of endoleak or retroperitoneal hemorrhage. Severe chronic obstructive pulmonary disease, with an FEV1 34% of predicted. Chronic hypoxemic respiratory failure, secondary to above, maintained on 4 L/min nasal cannula 24/12. History of laryngeal cancer status post radiation, continues outpatient follow up. Unexplained 25 pound weight loss in the last 6 months. Anemia of chronic disease. History of DVT. History of hypertension. History of hyperlipidemia. History of coronary artery disease. Chronic ongoing tobacco dependence. Plan: Plan dated February 19, 2024. The patient is seen today in room 352. He continues on nasal cannula 5 L. He is getting saline at 20 cc an hour. He did have an EGD today. Those results are currently pending. He uses home oxygen at 4 L. Labs, x-rays, medications are reviewed. Prognosis is guarded. No additional recommendations are made. Plan dated February 20, 2024. The patient's EGD revealed evidence of a 2 cm distal esophageal ulcer, a segment of Sal's esophagus, moderate to large hiatal hernia, and antral gastritis. The patient has had no further GI bleeding. His COPD appears to be pretty much at baseline. He is on 4 L, which is what he uses at home. Labs, x-rays, medications are reviewed. We will continue to follow. Prognosis is guarded. Plan dated February 21, 2024. The patient is doing much better from the pulmonary standpoint. Currently, he is on 4 L, which is what he uses at home. The patient had an EGD for an upper GI bleed. The findings are as above. We will continue to follow make recommendations along the way. The patient's overall prognosis remains guarded. No additional recommendations at this time. Time with Patient: Less than 30
--- NOTE | 2024-02-21 11:41 | P.PN ---
Subjective Progress Note Date: 02/20/24 H&P Date: 02/18/24 Chief Complaint: Progressive shortness of breath, cough, near syncope This is a 73-year-old gentleman with past medical history significant for recent inpatient admission for COPD exacerbation/pneumonia-discharged on 09/04/2023, advanced COPD, chronic hypoxic respiratory failure wears 4 L nasal cannula O2 at home, nicotine dependence , laryngeal cancer with radiation treatments 2022 , prior alcohol abuse , abdominal aortic aneurysm repair ,CAD, hypertension, hyperlipidemia and multiple other medical issues presented to the ER with c omplaints of progressive worsening dyspnea accompanied by nonproductive cough and near syncope. Brain CT reported no acute bleed or mass effect, thoracic aorta CT reported no PE, no thoracic aneurysm or dissection, miliary pulmonary nodules with differential diagnosis, small focal opacification of the pleural- parenchymal right posterior upper lobe, aortic stent graft without evidence of endoleak or retroperitoneal hemorrhage, marked diverticulosis of the colon without evidence of diverticulitis, bilateral nonobstructing renal calcifications.Chest x-ray reported no acute process. During the night patient had coffee ground emesis, transferred to the ICU, evaluated by GI and scheduled for EGD today. Hemoglobin 8.7, platelets 263. Electrolytes and renal function stable. Gastric occult blood negative. Patient reports he takes aspirin 81 mg twice a day, not currently on steroids at home. Viral studies negative, procalcitonin negative, 0.10. 02/19/24 completed EGD yesterday reporting 2 cm ulceration in the distal esophagus consistent with LA grade C reflux esophagitis, long segment Sal's esophagus, moderate to large size hiatal hernia, mild antral gastritis, biopsies obtained. Maintained on PPI denies nausea vomiting or diarrhea. Denies abdominal pain. Hemoglobin 8.1, platelets 265. Creatinine 0.82. Maintaining O2 sats in the 90s on 5 L nasal cannula. 02/20/2024 sitting up in chair, complains of stuffy nose, continues on Flonase. maintaining O2 sats in the 90s on 4 L nasal cannula. Maintained on PPI. Hemoglobin 8.3 platelets 253. No bleeding reported. Stomach/antrum and esophagus biopsies' pathology pending .vital signs stable. Renal function stable. Sodium decreased to 128, currently not on IV fluids Objective - Vital Signs Vital signs: Vital Signs Temp 98.0 F 02/20/24 15:17 Pulse 67 02/20/24 15:17 Resp 18 02/20/24 15:17 BP 107/61 02/20/24 15:17 Pulse Ox 95 02/20/24 15:17 FiO2 Intake & Output 02/19/24 02/20/24 02/20/24 18:59 06:59 18:59 Intake Total 1140 1200 Output Total 600 400 Balance 540 -400 1200 Weight 57.6 kg 57.6 kg Intake: Oral 1140 1200 Output: Urine 600 400 Other: Voiding Method Urinal Toilet Urinal # Voids 1 - Exam GENERAL: Alert and oriented x3, Sitting up in chair, no acute distress. HEENT: Normocephalic, atraumatic ,pupils are round and equal, No conjunctiva pallor. CARDIOVASCULAR: S1 and S2 present. Systolic murmur. PULMONARY: Unlabored, equal air entry, scattered rhonchi ,diminished bases. ABDOMEN: Soft, nondistended, nontender, no guarding, no rigidity. +BS EXTREMITIES: No pedal edema, no cyanosis, clubbing. No calf tenderness. NEUROLOGICAL: Cranial nerves II through XII grossly intact. No focal deficits. Strength and sensation grossly intact. SKIN: No rashes. Warm and dry. - Labs CBC & Chem 7: 02/21/24 07:04 02/21/24 07:04 Labs: Abnormal Lab Results - Last 24 Hours (Table) 02/19/24 02/19/24 02/20/24 Range/Units 16:35 20:21 05:48 RBC 2.92 L (4.30-5.90) m/uL Hgb 8.3 L (13.0-17.5) gm/dL Hct 26.2 L (39.0-53.0) % Lymphocytes # 0.3 L (1.0-4.8) k/uL Sodium (137-145) mmol/L Chloride (98-107) mmol/L Carbon Dioxide (22-30) mmol/L BUN (9-20) mg/dL Glucose (74-99) mg/dL POC Glucose (mg/dL) 127 H 190 H (70-110) mg/dL Calcium (8.4-10.2) mg/dL 02/20/24 02/20/24 02/20/24 Range/Units 05:48 06:12 11:50 RBC (4.30-5.90) m/uL Hgb (13.0-17.5) gm/dL Hct (39.0-53.0) % Lymphocytes # (1.0-4.8) k/uL Sodium 128 L (137-145) mmol/L Chloride 91 L (98-107) mmol/L Carbon Dioxide 39 H (22-30) mmol/L BUN 28 H (9-20) mg/dL Glucose 130 H (74-99) mg/dL POC Glucose (mg/dL) 157 H 128 H (70-110) mg/dL Calcium 8.1 L (8.4-10.2) mg/dL Microbiology - Last 24 Hours (Table) 02/18/24 01:45 Gram Stain - Final Sputum Sputum Culture - Final 02/17/24 16:23 Blood Culture - Preliminary Blood 02/17/24 16:08 Blood Culture - Preliminary Blood Assessment and Plan Assessment: Acute COPD exacerbation in a patient with history of severe COPD Acute epigastric pain with coffee ground emesis, anemia, status post EGD reporting 2 cm ulceration in the distal esophagus consistent with LA grade C reflux esophagitis, long segment Sal's esophagus, moderate to large size hiatal hernia, mild antral gastritis, biopsy results pending Acute on chronic hypoxic respiratory failure secondary to the above, wears 4 L nasal cannula at home Miliary pulmonary nodules, reported per CT Gastroesophageal reflux disease Chronic anemia, iron deficient Benign prostatic hypertrophy Hypertension Ongoing nicotine dependence History of laryngeal carcinoma, status post radiation treatments 2022. History of alcohol abuse Plan: Continue on current medication regimen ,monitoring and symptomatic treat ment.Maintain PPI.continue aggressive pulmonary toileting with nebulized bronchodilators, IV steroids and Symbicort. Increase ambulation as tolerated. The impression and plan of care has been dictated as directed. : I performed a history and examination of this patient, discussed the same with the dictator. I agree with the dictator's note ,documented as a scribe. Any additional findings or plans will be noted.
[2024-02-21 11:46] LABS: Glucose,Whole Blood 110 mg/dL (70-110)
--- NOTE | 2024-02-21 11:57 | P.PN ---
Subjective Progress Note Date: 02/21/24 H&P Date: 02/18/24 Chief Complaint: Progressive shortness of breath, cough, near syncope This is a 73-year-old gentleman with past medical history significant for recent inpatient admission for COPD exacerbation/pneumonia-discharged on 09/04/2023, advanced COPD, chronic hypoxic respiratory failure wears 4 L nasal cannula O2 at home, nicotine dependence , laryngeal cancer with radiation treatments 2022 , prior alcohol abuse , abdominal aortic aneurysm repair ,CAD, hypertension, hyperlipidemia and multiple other medical issues presented to the ER with c omplaints of progressive worsening dyspnea accompanied by nonproductive cough and near syncope. Brain CT reported no acute bleed or mass effect, thoracic aorta CT reported no PE, no thoracic aneurysm or dissection, miliary pulmonary nodules with differential diagnosis, small focal opacification of the pleural- parenchymal right posterior upper lobe, aortic stent graft without evidence of endoleak or retroperitoneal hemorrhage, marked diverticulosis of the colon without evidence of diverticulitis, bilateral nonobstructing renal calcifications.Chest x-ray reported no acute process. During the night patient had coffee ground emesis, transferred to the ICU, evaluated by GI and scheduled for EGD today. Hemoglobin 8.7, platelets 263. Electrolytes and renal function stable. Gastric occult blood negative. Patient reports he takes aspirin 81 mg twice a day, not currently on steroids at home. Viral studies negative, procalcitonin negative, 0.10. 02/19/24 completed EGD yesterday reporting 2 cm ulceration in the distal esophagus consistent with LA grade C reflux esophagitis, long segment Sal's esophagus, moderate to large size hiatal hernia, mild antral gastritis, biopsies obtained. Maintained on PPI denies nausea vomiting or diarrhea. Denies abdominal pain. Hemoglobin 8.1, platelets 265. Creatinine 0.82. Maintaining O2 sats in the 90s on 5 L nasal cannula. 02/20/2024 sitting up in chair, complains of stuffy nose, continues on Flonase. maintaining O2 sats in the 90s on 4 L nasal cannula. Maintained on PPI. Hemoglobin 8.3 platelets 253. No bleeding reported. Stomach/antrum and esophagus biopsies' pathology pending .vital signs stable. Renal function stable. Sodium decreased to 128, currently not on IV fluids. 02/21/2024 sitting up in chair. Receiving IV fluids for sodium of 128 yesterday, current sodium level pending. Maintaining O2 sats in the 90s on 4 L nasal cannula. Hemoglobin pending. Stomach/antrum and esophagus biopsies' pathology reporting antrum-reactive gastropathy, H. pylori not identified, esophagus- squamoglandular junctional mucosa with Sal's esophagus, negative for dysplasia. Objective - Vital Signs Vital signs: Vital Signs Temp 97.8 F 02/21/24 07:20 Pulse 72 02/21/24 11:28 Resp 17 02/21/24 11:16 BP 139/77 02/21/24 11:16 Pulse Ox 95 02/21/24 11:16 FiO2 Intake & Output 02/20/24 02/21/24 02/21/24 18:59 06:59 18:59 Intake Total 1318 20 240 Output Total 250 500 950 Balance 0177 -942 -829 Weight 57.6 kg 75.2 kg Intake: IV 20 Invasive Line 3 20 Oral 1318 240 Output: Urine 250 500 950 Other: Voiding Method Toilet Urinal Toilet Urinal Urinal # Voids 1 1 - Exam GENERAL: Alert and oriented x3, Sitting up in chair, no acute distress. HEENT: Normocephalic, atraumatic ,pupils are round and equal, No conjunctiva pallor.MMM, poor dentition. CARDIOVASCULAR: S1 and S2 present. Systolic murmur. PULMONARY: Unlabored, equal air entry, scattered rhonchi ,diminished bases. ABDOMEN: Soft, nondistended, nontender, no guarding, no rigidity. +BS EXTREMITIES: No pedal edema, no cyanosis, clubbing. No calf tenderness. NEUROLOGICAL: Cranial nerves II through XII grossly intact. No focal deficits. Strength and sensation grossly intact. SKIN: No rashes. Warm and dry. - Labs CBC & Chem 7: 02/21/24 07:04 02/21/24 07:04 Labs: Abnormal Lab Results - Last 24 Hours (Table) 02/20/24 02/20/24 02/20/24 Range/Units 11:50 16:44 20:06 WBC (3.8-10.6) k/uL RBC (4.30-5.90) m/uL Hgb (13.0-17.5) gm/dL Hct (39.0-53.0) % Lymphocytes # (1.0-4.8) k/uL Sodium (137-145) mmol/L Chloride (98-107) mmol/L Carbon Dioxide (22-30) mmol/L BUN (9-20) mg/dL Glucose (74-99) mg/dL POC Glucose (mg/dL) 128 H 129 H 129 H (70-110) mg/dL Calcium (8.4-10.2) mg/dL 02/21/24 02/21/24 02/21/24 Range/Units 06:13 07:04 07:04 WBC 3.3 L (3.8-10.6) k/uL RBC 3.22 L (4.30-5.90) m/uL Hgb 8.9 L (13.0-17.5) gm/dL Hct 28.6 L (39.0-53.0) % Lymphocytes # 0.2 L (1.0-4.8) k/uL Sodium 130 L (137-145) mmol/L Chloride 92 L (98-107) mmol/L Carbon Dioxide 40 H (22-30) mmol/L BUN 27 H (9-20) mg/dL Glucose 105 H (74-99) mg/dL POC Glucose (mg/dL) 137 H (70-110) mg/dL Calcium 7.8 L (8.4-10.2) mg/dL Microbiology - Last 24 Hours (Table) 02/17/24 16:23 Blood Culture - Preliminary Blood Assessment and Plan Assessment: Acute COPD exacerbation in a patient with history of severe COPD Acute epigastric pain with coffee ground emesis, anemia, status post EGD reporting 2 cm ulceration in the distal esophagus consistent with LA grade C reflux esophagitis, long segment Sal's esophagus, moderate to large size hiatal hernia, mild antral gastritis, Acute on chronic hypoxic respiratory failure secondary to the above, wears 4 L nasal cannula at home Hyponatremia Miliary pulmonary nodules, reported per CT Gastroesophageal reflux disease Chronic anemia, iron deficient Benign prostatic hypertrophy Hypertension Ongoing nicotine dependence History of laryngeal carcinoma, status post radiation treatments 2022. History of alcohol abuse Plan: Continue on current medication regimen ,monitoring and symptomatic akil atment.labs pending.Aggressive pulmonary toileting with nebulized bronchodilators, IV steroids and Symbicort. Increase ambulation as tolerated. Maintain PPI. Discharge planning in progress, pending final DC recommendations and pulmonary clearance. The impression and plan of care has been dictated as directed. : I performed a history and examination of this patient, discussed the same with the dictator. I agree with the dictator's note ,documented as a scribe. Any additional findings or plans will be noted.
[2024-02-21 16:16] LABS: Glucose,Whole Blood 118 mg/dL (70-110)
[2024-02-21 20:12] LABS: Glucose,Whole Blood 136 mg/dL (70-110)
[2024-02-22 06:12] LABS: Glucose,Whole Blood 113 mg/dL (70-110)
[2024-02-22 07:25] LABS: African American GFR (CKD) >90 (>60 ml/min/1.73 sqM); Anion Gap 1 mmol/L; Blood Urea Nitrogen 33 mg/dL (9-20); Carbon Dioxide 39 mmol/L (22-30); Chloride 92 mmol/L (98-107); Glucose 92 mg/dL (74-99); Non-African American GFR(CKD) 88 (>60 ml/min/1.73 sqM); Potassium 4.3 mmol/L (3.5-5.1); Sodium 132 mmol/L (137-145)
--- NOTE | 2024-02-22 09:56 | P.PN ---
Subjective Progress Note Date: 02/22/24 Principal diagnosis: Shortness of breath. Patient is a 73-year-old male with a history of severe COPD. His FEV1 is 34% of predicted. He also has chronic hypoxemic respiratory failure and uses home O2 at 4 L. Other medical history includes coronary disease, DVT, GERD, hyperlip idemia, hypertension, and laryngeal carcinoma. The patient's primary care physician is Dr. Balderas. Patient also follows in the office with Dr. Gonzalez for his pulmonary needs. Over the last , patient has had progressively worsening shortness of breath with associated cough that is productive producing green sputum. Denies fevers, chills. Denies chest pain, hemoptysis. Denies sick contacts. Of note, while at physical therapy appointment yesterday, patient was doing an exercise became dizzy/lightheaded, saw a bright light, and collapsed in a chair. He was diffusely sweating. He was also having episodes of nausea and vomiting. Mostly food product. Patient is unsure if he actually lost consciousness. Brain CT without contrast done on arrival did not show any acute intracranial hemorrhage or mass effect. Chronic inflammatory changes of maxillary sinuses. CT of the chest did not show any acute pulmonary embolism. No thoracic aneurysm or dissection. Small focal opacification of the pleural parenchymal right posterior upper lobe consistent with round atelectasis. Unable to exclude acute infiltrate/pneumonia. Diffuse miliary pulmonary nodules, which carries a broad differential diagnosis including miliary tuberculosis, fungal infection, silicosis, pulmonary sarcoidosis, metastasis, among other things. No significant mediastinal or hilar adenopathy. These findings not apparent on previous chest CT done back in May,. Patient's states that his laryngeal cancer was treated with radiation, last reported treatment May,. No history of metastatic disease. He continues to follow with an oncologist in the area. Does admit about a 25 pound weight loss over the last 6 months. 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 No history of occupational lung disease. Patient previously reports being worked up for autoimmune disorder at [facility]. No definitive acute of diagnosis was established per the patient. No known TB exposure history. CBC: WBC count 5.1, hemoglobin 9.3, hematocrit 29.8, platelets 304. CMP 137, potassium 4.1, chloride 96, serum bicarb 36, BUN 20, creatinine 0.77, glucose 97. Lactic 1.6. LFTs unremarkable. Troponin less than 0.012. NT proBNP 380. Negative for influenza, RSV, COVID. Placed on a combination of azithromycin and Rocephin in the emergency department. He is currently on 4 L/min nasal cannula. SpO2 96%. No acute distress. Afebrile. Vitals are stable. Progress note dated February 19, 2024. The patient is seen today in room 352. He was admitted with a diagnosis of COPD exacerbation. He is currently on saline at 20 cc an hour, and nasal cannula 5 L. He typically uses home O2 at 4 L. Clinically, he does feel better today. He is much less short of breath. Labs include a white count 4.4, hemoglobin 8.1, hematocrit 25.8, and a platelet count of 265,000. Sodium 136, potassium 4.6, chlorides 94, CO2 37, BUN 29, creatinine 0.82. Glucose is 140. Calcium 8.3. Shortly after admission, the patient had an episode of coffee-ground emesis, and has been seen by gastroenterology, and was to have a EGD. Those results are currently pending. Progress note dated February 20, 2024. 73-year-old male seen today in room 352. He is resting comfortably. He is on 4 L, which is what he uses at home. He is not receiving any IV fluids. He had an EGD because of GI bleed, which revealed a 2 cm distal esophageal ulcer, evidence of Sal's esophagus, a moderate to large hiatal hernia, and antral gastritis. The patient's not had any additional GI bleeding. White count is 4.7, hemoglobin 8.3, hematocrit 26.2, and platelet count was normal. Sodium 128, potassium 4.4, chloride 91, CO2 39, BUN 28, creatinine 0.78. Glucose is 157. Calcium 8.1. Progress note dated February 21, 2024. 73-year-old male who is seen in room 352. Currently, the patient is doing reasonably well. He has no specific complaints. His breathing is stable. The patient underwent an EGD, for upper GI bleed. Please see my note above. Currently he is on 4 L, with saturations at 95%. Laboratory data includes a white count of 3.3, hemoglobin 8.9, hematocrit 28.6, and a platelet count of 263,000. Sodium 130, potassium 4.1, chloride 92, CO2 40, BUN 27 and creatinine 0.87. Glucose is 105. Calcium is 7.8. Progress note dated February 22, 2024. 73-year-old male seen in room 352. Currently, the patient is on 4 L nasal cannula. He is not receiving any IV fluids. Clinically he looks relatively stable. Lab work from today includes a sodium 132, potassium 4.3, chlorides 92, CO2 39, BUN 33, creatinine 0.84. The glucose is 113. The calcium is 8. Sputum and blood sampling is thus far negative. Patient remains on appropriate medications for his COPD. Objective - Vital Signs Vital signs: Vital Signs Temp 98.0 F 02/21/24 20:00 Pulse 69 02/22/24 09:52 Resp 16 02/22/24 04:00 BP 118/55 02/22/24 04:00 Pulse Ox 94 L 02/22/24 09:39 FiO2 Intake & Output 02/21/24 02/22/24 02/22/24 18:59 06:59 18:59 Intake Total 480 Output Total 2500 200 Balance -2019 Weight 75.8 kg Intake: Oral 480 Output: Urine 2500 200 Other: Voiding Method Toilet Toilet Urinal Urinal # Voids 1 - Exam No acute distress, oriented 3. Only on 4 L. No overt respiratory distress. HEENT examination is grossly unremarkable. Mucous membranes are moist. No oral lesions. Neck supple. Full range of motion. No adenopathy thyromegaly or neck vein distention. Cardiovascular examination reveals regular rhythm rate. S1-S2 normal. No S3 or S4. No discernible murmur noted. Lungs reveal scattered bilateral rhonchi. No wheezes or crackles. Breath sounds equal. Abdomen soft bowel sounds are heard. No masses or tenderness. Extremities are intact. No cyanosis clubbing or edema. Skin is without rash or lesion. Neurologic examination is brief but nonfocal. - Labs CBC & Chem 7: 02/21/24 07:04 02/22/24 05:59 Labs: Abnormal Lab Results - Last 24 Hours (Table) 02/21/24 02/21/24 02/22/24 Range/Units 16:14 20:10 05:59 Sodium 132 L (137-145) mmol/L Chloride 92 L (98-107) mmol/L Carbon Dioxide 39 H (22-30) mmol/L BUN 33 H (9-20) mg/dL POC Glucose (mg/dL) 118 H 136 H (70-110) mg/dL Calcium 8.0 L (8.4-10.2) mg/dL 02/22/24 Range/Units 06:11 Sodium (137-145) mmol/L Chloride (98-107) mmol/L Carbon Dioxide (22-30) mmol/L BUN (9-20) mg/dL POC Glucose (mg/dL) 113 H (70-110) mg/dL Calcium (8.4-10.2) mg/dL Assessment and Plan Assessment: Suspect acute COPD exacerbation. Acute on chronic hypoxemic respiratory failure, secondary to above. Upper GI bleed, secondary to 2 cm distal esophageal ulcer, Sal's esophagus, antral gastritis, and moderate to large hiatal hernia. Near syncopal event. Nonobstructing bilateral renal calculi. History of AAA with aortic stent graft, chest CTA did not show any evidence of endoleak or retroperitoneal hemorrhage. Severe chronic obstructive pulmonary disease, with an FEV1 34% of predicted. Chronic hypoxemic respiratory failure, secondary to above, maintained on 4 L/min nasal cannula 24/12. History of laryngeal cancer status post radiation, continues outpatient follow up. Unexplained 25 pound weight loss in the last 6 months. Anemia of chronic disease. History of DVT. History of hypertension. History of hyperlipidemia. History of coronary artery disease. Chronic ongoing tobacco dependence. Plan: Plan dated February 19, 2024. The patient is seen today in room 352. He continues on nasal cannula 5 L. He is getting saline at 20 cc an hour. He did have an EGD today. Those results are currently pending. He uses home oxygen at 4 L. Labs, x-rays, medications are reviewed. Prognosis is guarded. No additional recommendations are made. Plan dated February 20, 2024. The patient's EGD revealed evidence of a 2 cm distal esophageal ulcer, a segment of Sal's esophagus, moderate to large hiatal hernia, and antral gastritis. The patient has had no further GI bleeding. His COPD appears to be pretty much at baseline. He is on 4 L, which is what he uses at home. Labs, x-rays, medications are reviewed. We will continue to follow. Prognosis is guarded. Plan dated February 21, 2024. The patient is doing much better from the pulmonary standpoint. Currently, he is on 4 L, which is what he uses at home. The patient had an EGD for an upper GI bleed. The findings are as above. We will continue to follow make recommendations along the way. The patient's overall prognosis remains guarded. No additional recommendations at this time. Plan dated February 22, 2024. The patient is seen today in room 352. The patient appears to be doing r elatively well. His COPD seems to be better control. The patient continues on DuoNeb and Symbicort. His Solu-Medrol be discontinued in favor of prednisone. No additional recommendations are made. Prognosis is guarded. We will continue to follow. Time with Patient: Less than 30
[2024-02-22 11:21] LABS: Glucose,Whole Blood 123 mg/dL (70-110)
[2024-02-22 11:30] LABS: HCT 28.9 % (39.0-53.0); Hypochromasia Moderate; MCH 28.2 pg (25.0-35.0); MCHC 31.3 g/dL (31.0-37.0); MCV 90.1 fL (80.0-100.0); Mean Platelet Volume 9.7; Platelet Count 253 k/uL (150-450); RBC 3.21 m/uL (4.30-5.90); RDW 14.4 % (11.5-15.5)
--- NOTE | 2024-02-22 14:37 | P.PN ---
Subjective Progress Note Date: 02/22/24 Interval History: Chief Complaint: Progressive shortness of breath, cough, near syncope This is a 73-year-old gentleman with past medical history significant for recent inpatient admission for COPD exacerbation/pneumonia-discharged on 09/04/2023, advanced COPD, chronic hypoxic respiratory failure wears 4 L nasal cannula O2 at home, nicotine dependence , laryngeal cancer with radiation treatments 2022 , prior alcohol abuse , abdominal aortic aneurysm repair ,CAD, hypertension, hy perlipidemia and multiple other medical issues presented to the ER with complaints of progressive worsening dyspnea accompanied by nonproductive cough and near syncope. Brain CT reported no acute bleed or mass effect, thoracic aorta CT reported no PE, no thoracic aneurysm or dissection, miliary pulmonary nodules with differential diagnosis, small focal opacification of the pleural- parenchymal right posterior upper lobe, aortic stent graft without evidence of endoleak or retroperitoneal hemorrhage, marked diverticulosis of the colon without evidence of diverticulitis, bilateral nonobstructing renal calcifications.Chest x-ray reported no acute process. During the night patient had coffee ground emesis, transferred to the ICU, evaluated by GI and scheduled for EGD today. Hemoglobin 8.7, platelets 263. Electrolytes and renal function stable. Gastric occult blood negative. Patient reports he takes aspirin 81 mg twice a day, not currently on steroids at home. Viral studies negative, procalcitonin negative, 0.10. 02/19/24 completed EGD yesterday reporting 2 cm ulceration in the distal esophagus consistent with LA grade C reflux esophagitis, long segment Sal's esophagus, moderate to large size hiatal hernia, mild antral gastritis, biopsies obtained. Maintained on PPI denies nausea vomiting or diarrhea. Denies abdominal pain. Hemoglobin 8.1, platelets 265. Creatinine 0.82. Maintaining O2 sats in the 90s on 5 L nasal cannula. 02/20/2024 sitting up in chair, complains of stuffy nose, continues on Flonase. maintaining O2 sats in the 90s on 4 L nasal cannula. Maintained on PPI. Hemoglobin 8.3 platelets 253. No bleeding reported. Stomach/antrum and esophagus biopsies' pathology pending .vital signs stable. Renal function stable. Sodium decreased to 128, currently not on IV fluids. 02/21/2024 sitting up in chair. Receiving IV fluids for sodium of 128 yesterday, current sodium level pending. Maintaining O2 sats in the 90s on 4 L nasal can nula. Hemoglobin pending. Stomach/antrum and esophagus biopsies' pathology reporting antrum-reactive gastropathy, H. pylori not identified, esophagus- squamoglandular junctional mucosa with Sal's esophagus, negative for dysplasia. 02/22/2024/patient was seen and examined today. Patient currently on 4 L oxygen, not on IV fluids. Patient feeling better. Sodium is 132, potassium 4.3, BUN 33, creatinine 0.84. CO2 is 39. Sputum blood culture negative so far. Pulmonary following. Assessment and plan: Acute COPD exacerbation in a patient with history of severe COPD FEV1 34%, Acute on chronic hypoxic respiratory failure: 4 L oxygen at baseline Acute epigastric pain with coffee ground emesis, anemia, status post EGD reporting 2 cm ulceration in the distal esophagus consistent with LA grade C reflux esophagitis, long segment Sal's esophagus, moderate to large size hiatal hernia, mild antral gastritis Hyponatremia Miliary pulmonary nodules, reported per CT Gastroesophageal reflux disease Chronic anemia, iron deficient Benign prostatic hypertrophy Hypertension Ongoing nicotine dependence History of laryngeal carcinoma, status post radiation treatments 2022. History of alcohol abuse Continue current medication, monitor vitals, monitor labs, aggressive pulmonary toileting with bronchodilators, steroids. Encourage ambulation. PPI. Avoid NSAIDs. Hemoglobin stable. Pulmonary following, awaiting final recommendations. DVT prophylaxis: Subcutaneous heparin PHYSICAL EXAMINATION: GENERAL: The patient is A&O x3, NAD HEENT: EOMI, Sclerae anicteric, Moist Mucous membranes Neck: Supple, Non tender, No JVD PULMONARY: Decreased breath sound bilaterally, bilateral wheezing. No crackles. CARDIOVASCULAR: S1, S2 present. No murmurs, rubs, or gallops. ABDOMEN: Soft, nontender, nondistended, normoactive bowel sounds. No guarding or rebound tenderness. MUSCULOSKELETAL: No edema, No cyanosis. No clubbing. Normal ROM. Intact peripheral pulses. EXTREMITIES: No cyanosis, clubbing, or pedal edema. NEUROLOGICAL: CN 2-12 grossly intact. No FND Skin: No Rash REVIEW OF SYSTEMS: CONSTITUTIONAL: No fever or chills. CARDIOVASCULAR: No chest pain, palpitations or syncope. PULMONARY: Complains of shortness of breath, cough. No sore throat. GASTROINTESTINAL: No nausea, vomiting, diarrhea, abdominal pain. : No Dysuria, urgency, frequency. Extremities: No edema. NEUROLOGICAL: No headaches, no weakness, or numbness Dictation was produced using [employer] dictation software. please excuse any grammatical, word or spelling errors. Objective - Vital Signs Vital signs: Vital Signs Temp 98 F 02/22/24 12:00 Pulse 82 02/22/24 13:17 Resp 18 02/22/24 12:00 BP 116/66 02/22/24 12:00 Pulse Ox 92 L 02/22/24 12:00 FiO2 Intake & Output 02/21/24 02/22/24 02/22/24 18:59 06:59 18:59 Intake Total 480 480 Output Total 2500 200 Balance -2020 -200 480 Weight 75.8 kg Intake: Oral 480 480 Output: Urine 2500 200 Other: Voiding Method Toilet Toilet Toilet Urinal Urinal Urinal # Voids 1 3 - Labs CBC & Chem 7: 02/22/24 05:59 02/22/24 05:59 Labs: Abnormal Lab Results - Last 24 Hours (Table) 02/21/24 02/21/24 02/22/24 Range/Units 16:14 20:10 05:59 RBC (4.30-5.90) m/uL Hgb (13.0-17.5) gm/dL Hct (39.0-53.0) % Sodium 132 L (137-145) mmol/L Chloride 92 L (98-107) mmol/L Carbon Dioxide 39 H (22-30) mmol/L BUN 33 H (9-20) mg/dL POC Glucose (mg/dL) 118 H 136 H (70-110) mg/dL Calcium 8.0 L (8.4-10.2) mg/dL 02/22/24 02/22/24 02/22/24 Range/Units 05:59 06:11 11:19 RBC 3.21 L (4.30-5.90) m/uL Hgb 9.0 L (13.0-17.5) gm/dL Hct 28.9 L (39.0-53.0) % Sodium (137-145) mmol/L Chloride (98-107) mmol/L Carbon Dioxide (22-30) mmol/L BUN (9-20) mg/dL POC Glucose (mg/dL) 113 H 123 H (70-110) mg/dL Calcium (8.4-10.2) mg/dL
[2024-02-22 16:13] VITALS: RESP 16
[2024-02-22] MEDS: SYMBICORT 160-4.5 MCG INHALER INHALATION SCH (20:45)
--- NOTE | 2024-02-23 10:56 | P.PN ---
Subjective Progress Note Date: 02/23/24 Principal diagnosis: Shortness of breath. Patient is a 73-year-old male with a history of severe COPD. His FEV1 is 34% of predicted. He also has chronic hypoxemic respiratory failure and uses home O2 at 4 L. Other medical history includes coronary disease, DVT, GERD, hyperlip idemia, hypertension, and laryngeal carcinoma. The patient's primary care physician is Dr. Balderas. Patient also follows in the office with Dr. Gonzalez for his pulmonary needs. Over the last , patient has had progressively worsening shortness of breath with associated cough that is productive producing green sputum. Denies fevers, chills. Denies chest pain, hemoptysis. Denies sick contacts. Of note, while at physical therapy appointment yesterday, patient was doing an exercise became dizzy/lightheaded, saw a bright light, and collapsed in a chair. He was diffusely sweating. He was also having episodes of nausea and vomiting. Mostly food product. Patient is unsure if he actually lost consciousness. Brain CT without contrast done on arrival did not show any acute intracranial hemorrhage or mass effect. Chronic inflammatory changes of maxillary sinuses. CT of the chest did not show any acute pulmonary embolism. No thoracic aneurysm or dissection. Small focal opacification of the pleural parenchymal right posterior upper lobe consistent with round atelectasis. Unable to exclude acute infiltrate/pneumonia. Diffuse miliary pulmonary nodules, which carries a broad differential diagnosis including miliary tuberculosis, fungal infection, silicosis, pulmonary sarcoidosis, metastasis, among other things. No significant mediastinal or hilar adenopathy. These findings not apparent on previous chest CT done back in May,. Patient's states that his laryngeal cancer was treated with radiation, last reported treatment May,. No history of metastatic disease. He continues to follow with an oncologist in the area. Does admit about a 25 pound weight loss over the last 6 months. 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 No history of occupational lung disease. Patient previously reports being worked up for autoimmune disorder at [facility]. No definitive acute of diagnosis was established per the patient. No known TB exposure history. CBC: WBC count 5.1, hemoglobin 9.3, hematocrit 29.8, platelets 304. CMP 137, potassium 4.1, chloride 96, serum bicarb 36, BUN 20, creatinine 0.77, glucose 97. Lactic 1.6. LFTs unremarkable. Troponin less than 0.012. NT proBNP 380. Negative for influenza, RSV, COVID. Placed on a combination of azithromycin and Rocephin in the emergency department. He is currently on 4 L/min nasal cannula. SpO2 96%. No acute distress. Afebrile. Vitals are stable. Progress note dated February 19, 2024. The patient is seen today in room 352. He was admitted with a diagnosis of COPD exacerbation. He is currently on saline at 20 cc an hour, and nasal cannula 5 L. He typically uses home O2 at 4 L. Clinically, he does feel better today. He is much less short of breath. Labs include a white count 4.4, hemoglobin 8.1, hematocrit 25.8, and a platelet count of 265,000. Sodium 136, potassium 4.6, chlorides 94, CO2 37, BUN 29, creatinine 0.82. Glucose is 140. Calcium 8.3. Shortly after admission, the patient had an episode of coffee-ground emesis, and has been seen by gastroenterology, and was to have a EGD. Those results are currently pending. Progress note dated February 20, 2024. 73-year-old male seen today in room 352. He is resting comfortably. He is on 4 L, which is what he uses at home. He is not receiving any IV fluids. He had an EGD because of GI bleed, which revealed a 2 cm distal esophageal ulcer, evidence of Sal's esophagus, a moderate to large hiatal hernia, and antral gastritis. The patient's not had any additional GI bleeding. White count is 4.7, hemoglobin 8.3, hematocrit 26.2, and platelet count was normal. Sodium 128, potassium 4.4, chloride 91, CO2 39, BUN 28, creatinine 0.78. Glucose is 157. Calcium 8.1. Progress note dated February 21, 2024. 73-year-old male who is seen in room 352. Currently, the patient is doing reasonably well. He has no specific complaints. His breathing is stable. The patient underwent an EGD, for upper GI bleed. Please see my note above. Currently he is on 4 L, with saturations at 95%. Laboratory data includes a white count of 3.3, hemoglobin 8.9, hematocrit 28.6, and a platelet count of 263,000. Sodium 130, potassium 4.1, chloride 92, CO2 40, BUN 27 and creatinine 0.87. Glucose is 105. Calcium is 7.8. Progress note dated February 22, 2024. 73-year-old male seen in room 352. Currently, the patient is on 4 L nasal cannula. He is not receiving any IV fluids. Clinically he looks relatively stable. Lab work from today includes a sodium 132, potassium 4.3, chlorides 92, CO2 39, BUN 33, creatinine 0.84. The glucose is 113. The calcium is 8. Sputum and blood sampling is thus far negative. Patient remains on appropriate medications for his COPD. Progress note dated February 23, 2024. 73-year-old male seen in room 354. The patient is doing relatively well. He continues on oxygen at 4 L. This is what he uses at home. He is not receiving any IV fluids. From the COPD standpoint, he is at baseline. He has had no further GI bleeding. No new laboratory data today. Objective - Vital Signs Vital signs: Vital Signs Temp 97.8 F 02/23/24 08:00 Pulse 56 L 02/23/24 09:04 Resp 16 02/23/24 08:00 BP 83/50 02/23/24 08:00 Pulse Ox 95 02/23/24 08:50 FiO2 Intake & Output 02/22/24 02/23/24 02/23/24 18:59 06:59 18:59 Intake Total 720 240 240 Output Total 275 Balance 720 -35 240 Weight 75.7 kg Intake: Oral 720 240 240 Output: Urine 275 Other: Voiding Method Toilet Toilet Toilet Urinal Urinal Urinal # Voids 3 1 # Bowel Movements 1 - Exam No acute distress, oriented 3. Only on 4 L. No overt respiratory distress. HEENT examination is grossly unremarkable. Mucous membranes are moist. No oral lesions. Neck supple. Full range of motion. No adenopathy thyromegaly or neck vein distention. Cardiovascular examination reveals regular rhythm rate. S1-S2 normal. No S3 or S4. No discernible murmur noted. Lungs reveal scattered bilateral rhonchi. No wheezes or crackles. Breath sounds equal. Abdomen soft bowel sounds are heard. No masses or tenderness. Extremities are intact. No cyanosis clubbing or edema. Skin is without rash or lesion. Neurologic examination is brief but nonfocal. - Labs CBC & Chem 7: 02/22/24 05:59 02/22/24 05:59 Labs: Abnormal Lab Results - Last 24 Hours (Table) 02/22/24 02/22/24 Range/Units 05:59 11:19 RBC 3.21 L (4.30-5.90) m/uL Hgb 9.0 L (13.0-17.5) gm/dL Hct 28.9 L (39.0-53.0) % POC Glucose (mg/dL) 123 H (70-110) mg/dL Microbiology - Last 24 Hours (Table) 02/17/24 16:23 Blood Culture - Final Blood 02/17/24 16:08 Blood Culture - Final Blood Assessment and Plan Assessment: Suspect acute COPD exacerbation. Acute on chronic hypoxemic respiratory failure, secondary to above. Upper GI bleed, secondary to 2 cm distal esophageal ulcer, Sal's esophagus, antral gastritis, and moderate to large hiatal hernia. Near syncopal event. Nonobstructing bilateral renal calculi. History of AAA with aortic stent graft, chest CTA did not show any evidence of endoleak or retroperitoneal hemorrhage. Severe chronic obstructive pulmonary disease, with an FEV1 34% of predicted. Chronic hypoxemic respiratory failure, secondary to above, maintained on 4 L/min nasal cannula 24/12. History of laryngeal cancer status post radiation, continues outpatient follow up. Unexplained 25 pound weight loss in the last 6 months. Anemia of chronic disease. History of DVT. History of hypertension. History of hyperlipidemia. History of coronary artery disease. Chronic ongoing tobacco dependence. Plan: Plan dated February 19, 2024. The patient is seen today in room 352. He continues on nasal cannula 5 L. He is getting saline at 20 cc an hour. He did have an EGD today. Those results are currently pending. He uses home oxygen at 4 L. Labs, x-rays, medications are reviewed. Prognosis is guarded. No additional recommendations are made. Plan dated February 20, 2024. The patient's EGD revealed evidence of a 2 cm distal esophageal ulcer, a segment of Sal's esophagus, moderate to large hiatal hernia, and antral gastritis. The patient has had no further GI bleeding. His COPD appears to be pretty much at baseline. He is on 4 L, which is what he uses at home. Labs, x-rays, medications are reviewed. We will continue to follow. Prognosis is guarded. Plan dated February 21, 2024. The patient is doing much better from the pulmonary standpoint. Currently, he is on 4 L, which is what he uses at home. The patient had an EGD for an upper GI bleed. The findings are as above. We will continue to follow make recommendations along the way. The patient's overall prognosis remains guarded. No additional recommendations at this time. Plan dated February 22, 2024. The patient is seen today in room 352. The patient appears to be doing re latively well. His COPD seems to be better control. The patient continues on DuoNeb and Symbicort. His Solu-Medrol be discontinued in favor of prednisone. No additional recommendations are made. Prognosis is guarded. We will continue to follow. Plan dated February 23, 2024. The patient is seen in room 354. The patient is stable. He is on 4 L of oxygen. This is what he uses at home. Labs, x-rays, and medications are reviewed. From the pulmonary perspective, the patient could be considered for discharge. The patient has had no additional GI bleeding. Time with Patient: Less than 30
--- NOTE | 2024-02-23 13:10 | P.DS ---
Providers Date of admission: 02/18/24 09:07 Expected date of discharge: 02/23/24 Attending physician: Jamie Balderas Consults: 02/17/24 16:06 Consult Physician Routine Consulting Provider: Shan Price Reason/Comments: copd, pneumonia Do you want consulting provider notified?: Yes Primary care physician: Jamie Balderas Hospital Course: Discharge diagnoses: Acute COPD exacerbation in a patient with history of severe COPD FEV1 34%, Acute on chronic hypoxic respiratory failure: 4 L oxygen at baseline Acute epigastric pain with coffee ground emesis, anemia, status post EGD r eporting 2 cm ulceration in the distal esophagus consistent with LA grade C reflux esophagitis, long segment Sal's esophagus, moderate to large size hiatal hernia, mild antral gastritis Hyponatremia Miliary pulmonary nodules, reported per CT Gastroesophageal reflux disease Chronic anemia, iron deficient Benign prostatic hypertrophy Hypertension Ongoing nicotine dependence History of laryngeal carcinoma, status post radiation treatments 2022. History of alcohol abuse Resume home meds. GI and pulmonary were consulted as above. Patient was treated with bronchodilators/inhalers and steroids during hospitalization. Underwent EGD as above. Hemoglobin remained stable. Protonix 40 mg twice daily. Avoid NSAIDs. Hemoglobin stable. Outpatient follow-up with PCP. Hospital course: Chief Complaint: Progressive shortness of breath, cough, near syncope This is a 73-year-old gentleman with past medical history significant for recent inpatient admission for COPD exacerbation/pneumonia-discharged on 09/04/2023, advanced COPD, chronic hypoxic respiratory failure wears 4 L nasal cannula O2 at home, nicotine dependence , laryngeal cancer with radiation treatments 2022 , p rior alcohol abuse , abdominal aortic aneurysm repair ,CAD, hypertension, hyperlipidemia and multiple other medical issues presented to the ER with complaints of progressive worsening dyspnea accompanied by nonproductive cough and near syncope. Brain CT reported no acute bleed or mass effect, thoracic aorta CT reported no PE, no thoracic aneurysm or dissection, miliary pulmonary nodules with differential diagnosis, small focal opacification of the pleural- parenchymal right posterior upper lobe, aortic stent graft without evidence of endoleak or retroperitoneal hemorrhage, marked diverticulosis of the colon without evidence of diverticulitis, bilateral nonobstructing renal calcifications.Chest x-ray reported no acute process. During the night patient had coffee ground emesis, transferred to the ICU, evaluated by GI and scheduled for EGD today. Hemoglobin 8.7, platelets 263. Electrolytes and renal function stable. Gastric occult blood negative. Patient reports he takes aspirin 81 mg twice a day, not currently on steroids at home. Viral studies negative, procalcitonin negative, 0.10. 02/19/24 completed EGD yesterday reporting 2 cm ulceration in the distal eso phagus consistent with LA grade C reflux esophagitis, long segment Sal's esophagus, moderate to large size hiatal hernia, mild antral gastritis, biopsies obtained. Maintained on PPI denies nausea vomiting or diarrhea. Denies abdominal pain. Hemoglobin 8.1, platelets 265. Creatinine 0.82. Maintaining O2 sats in the 90s on 5 L nasal cannula. 02/20/2024 sitting up in chair, complains of stuffy nose, continues on Flonase. maintaining O2 sats in the 90s on 4 L nasal cannula. Maintained on PPI. Hemoglobin 8.3 platelets 253. No bleeding reported. Stomach/antrum and esophagus biopsies' pathology pending .vital signs stable. Renal function stable. Sodium decreased to 128, currently not on IV fluids. 02/21/2024 sitting up in chair. Receiving IV fluids for sodium of 128 yesterday, current sodium level pending. Maintaining O2 sats in the 90s on 4 L nasal cannula. Hemoglobin pending. Stomach/antrum and esophagus biopsies' pathology reporting antrum-reactive gastropathy, H. pylori not identified, esophagus- squamoglandular junctional mucosa with Sal's esophagus, negative for dysplasia. 02/22/2024/patient was seen and examined today. Patient currently on 4 L oxygen, not on IV fluids. Patient feeling better. Sodium is 132, potassium 4.3, BUN 33, creatinine 0.84. CO2 is 39. Sputum blood culture negative so far. Pulmonary following. 02/23/24--patient went on 4 L oxygen at baseline, patient's reported improvement in shortness of breath, patient currently at baseline. Patient reported bowel movement with brown stools, no diarrhea, melena or hematochezia. Hemoglobin remained stable. Patient home medication resumed at discharge. Patient continued on Protonix 40 mg twice daily at discharge. PCP to follow-up with repeat CBC in 1 week. PHYSICAL EXAMINATION: GENERAL: The patient is A&O x3, NAD HEENT: EOMI, Sclerae anicteric, Moist Mucous membranes Neck: Supple, Non tender, No JVD PULMONARY: Decreased breath sounds bilaterally, no wheezing, no crackles. CARDIOVASCULAR: S1, S2 present. No murmurs, rubs, or gallops. ABDOMEN: Soft, nontender, nondistended, normoactive bowel sounds. No guarding or rebound tenderness. MUSCULOSKELETAL: No edema, No cyanosis. No clubbing. Normal ROM. Intact peripheral pulses. EXTREMITIES: No cyanosis, clubbing, or pedal edema. NEUROLOGICAL: CN 2-12 grossly intact. No FND SKIN: No rashes. Dictation was produced using [employer] dictation software. please excuse any grammatical, word or spelling errors. Plan - Discharge Summary New Discharge Prescriptions: New Pantoprazole [Protonix] 40 mg PO AC-BID #60 tab Budesonide-Formot 160-4.5 Mcg [Symbicort 160-4.5 Mcg Inhaler] 2 puff INHALATION RT-BID #1 each Continue lisinopriL [Zestril] 20 mg PO BID Albuterol Sulfate [Ventolin HFA] 2 puff INHALATION RT-Q6H PRN PRN Reason: Shortness Of Breath Tamsulosin HCl [Flomax] 0.4 mg PO HS Metoprolol Succinate (ER) [Toprol XL] 12.5 mg PO DAILY #30 tab Ipratropium-Albuterol Nebulize [Duoneb 0.5 mg-3 mg/3 ml Soln] 3 ml INHALATION RT-QID #0 each Docusate [Colace] 100 mg PO HS Acetaminophen Tab [Tylenol] 650 mg PO Q6HR PRN tab PRN Reason: Mild Pain (Scale 1 To 3) Ferrous Sulfate [Iron] 325 mg PO DAILY #30 tablet guaiFENesin [Mucinex] 1,200 mg PO BID Furosemide [Lasix] 40 mg PO DAILY tab Aspirin EC [Ecotrin Low Dose] 81 mg PO BID Nicotine Gum (Polacrilex) [Nicorette] 4 mg BUCCAL Q2HR PRN pieceofgum PRN Reason: Nicotine Cravings Escitalopram [Lexapro] 10 mg PO DAILY tab Ipratropium-Albuterol Nebulize [Duoneb 0.5 mg-3 mg/3 ml Soln] 3 ml INHALATION RT-Q4H PRN PRN Reason: Shortness Of Breath Or Wheezing Fluticasone Nasal [place] [Flonase Nasal [place]] 2 spr EA NOSTRIL DAILY Discontinued Omeprazole 20 mg PO DAILY Discharge Medication List lisinopriL [Zestril] 20 mg PO BID 03/04/19 [History] Albuterol Sulfate [Ventolin HFA] 2 puff INHALATION RT-Q6H PRN 03/06/20 [History] Tamsulosin HCl [Flomax] 0.4 mg PO HS 04/11/22 [History] Metoprolol Succinate (ER) [Toprol XL] 12.5 mg PO DAILY #30 tab 04/16/22 [Rx] Furosemide [Lasix] 40 mg PO DAILY tab 06/07/23 [Rx] Ipratropium-Albuterol Nebulize [Duoneb 0.5 mg-3 mg/3 ml Soln] 3 ml INHALATION RT-QID #0 each 07/01/23 [Rx] Aspirin EC [Ecotrin Low Dose] 81 mg PO BID 08/21/23 [History] Docusate [Colace] 100 mg PO HS 08/21/23 [History] Nicotine Gum (Polacrilex) [Nicorette] 4 mg BUCCAL Q2HR PRN pieceofgum 08/22/23 [Rx] Acetaminophen Tab [Tylenol] 650 mg PO Q6HR PRN tab 09/09/23 [Rx] Escitalopram [Lexapro] 10 mg PO DAILY tab 09/09/23 [Rx] Ferrous Sulfate [Iron] 325 mg PO DAILY #30 tablet 09/10/23 [Rx] Fluticasone Nasal [place] [Flonase Nasal [place]] 2 spr EA NOSTRIL DAILY 02/17/24 [ History] Ipratropium-Albuterol Nebulize [Duoneb 0.5 mg-3 mg/3 ml Soln] 3 ml INHALATION RT-Q4H PRN 02/17/24 [History] guaiFENesin [Mucinex] 1,200 mg PO BID 02/17/24 [History] Pantoprazole [Protonix] 40 mg PO AC-BID #60 tab 02/19/24 [Rx] Budesonide-Formot 160-4.5 Mcg [Symbicort 160-4.5 Mcg Inhaler] 2 puff INHALATION RT-BID #1 each 02/23/24 [Rx] Follow up Appointment(s)/Referral(s): Adeline Welch, SHEMAR [REFERRING] - 1 Week (Gastroenterology follow up for upper endoscopy biopsy for ulcers, barretts esophagus) Jamie Balderas DO [Primary Care Provider] - 1-2 days Discharge Disposition: HOME SELF-CARE
[2024-02-23 13:14] VITALS: PULSE 76; TEMP 98.2
[2024-02-23 13:53] VITALS: BP 97/51
== END 2024-02-23 15:06 | disposition home or self-care (01) | DRG 190 ==
LOC: EC 14:23 → 6NMEDSUR 16:08 → 2SICU 02-18 06:46 → OBSVTOIN 02-18 09:07 → 3SCARD 02-18 16:48
PROVIDERS: ADMIT Family Medicine; ATTEND Family Medicine
PROC: 0DB68ZX Excision of Stomach, Via Natural or Artificial Opening Endoscopic, Diagnostic (ICD-10-PCS; 2024-02-18)
PROC: 0DB58ZX Excision of Esophagus, Via Natural or Artificial Opening Endoscopic, Diagnostic (ICD-10-PCS; principal; 2024-02-18 07:30)
DX: J44.1 Chronic obstructive pulmonary disease with (acute) exacerbation (principal); J96.21 Acute and chronic respiratory failure with hypoxia; K22.11 Ulcer of esophagus with bleeding; K21.01 Gastro-esophageal reflux disease with esophagitis, with bleeding; K29.71 Gastritis, unspecified, with bleeding; J96.22 Acute and chronic respiratory failure with hypercapnia; J98.11 Atelectasis; E87.1 Hypo-osmolality and hyponatremia; D63.8 Anemia in other chronic diseases classified elsewhere; Z99.81 Dependence on supplemental oxygen; Z95.828 Presence of other vascular implants and grafts; I10 Essential (primary) hypertension; D50.9 Iron deficiency anemia, unspecified; K44.9 Diaphragmatic hernia without obstruction or gangrene; N40.0 Benign prostatic hyperplasia without lower urinary tract symptoms; Z79.82 Long term (current) use of aspirin; Z79.899 Other long term (current) drug therapy; Z79.51 Long term (current) use of inhaled steroids; I25.10 Atherosclerotic heart disease of native coronary artery without angina pectoris; E78.5 Hyperlipidemia, unspecified; H91.90 Unspecified hearing loss, unspecified ear; F17.210 Nicotine dependence, cigarettes, uncomplicated; K57.30 Diverticulosis of large intestine without perforation or abscess without bleeding; Z96.1 Presence of intraocular lens; Z98.42 Cataract extraction status, left eye; Z98.41 Cataract extraction status, right eye; Z85.21 Personal history of malignant neoplasm of larynx; Z92.3 Personal history of irradiation; Z86.79 Personal history of other diseases of the circulatory system; Z86.718 Personal history of other venous thrombosis and embolism; Z82.49 Family history of ischemic heart disease and other diseases of the circulatory system; Z80.1 Family history of malignant neoplasm of trachea, bronchus and lung
CPT/HCPCS: 36415; 43239; 70450; 71045; 71275; 74174; 80048; 80053; 81003; 82271; 82728; 83540; 83550; 83605; 83735; 83880; 84145; 84484; 85025; 85027; 85610; 85730; 87040; 87070; 87205; 87449; 87636; 88305; 93005; 94640; 94760; 96365; 96366; 96367; 96375; 99285

== ENCOUNTER 2024-04-12 02:26 | Emergency (ER) | payer MEDICARE, OTHER ==
[2024-04-12 02:33] VITALS: TEMP 97.8
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
--- NOTE | 2024-04-12 03:16 | CT ---
EXAM: CT Head Without Intravenous Contrast CLINICAL HISTORY: ITS.REASON CT Reason: fall injury TECHNIQUE: Axial computed tomography images of the head/brain without intravenous contrast. CTDI is 45.2 mGy and DLP is 1174 mGy-cm. This CT exam was performed using one or more of the following dose reduction techniques: automated exposure control, adjustment of the mA and/or kV according to patient size, and/or use of iterative reconstruction technique. COMPARISON: No relevant prior studies available. FINDINGS: Brain: No hemorrhage or mass effect. Ventricles: No hydrocephalus. Bones/joints: Unremarkable. Soft tissues: Unremarkable. Sinuses: No air fluid level. Volume loss left maxillary sinus, correlate with silent sinus syndrome. Mastoid air cells: Left mastoidectomy severe left mastoid effusion. IMPRESSION: No acute hemorrhage, hydrocephalus, or mass effect. Volume loss left maxillary sinus, correlate with silent sinus syndrome. Left Mastoidectomy. EXAM: CT Cervical Spine Without Intravenous Contrast CLINICAL HISTORY: ITS.REASON CT Reason: fall injury TECHNIQUE: Axial computed tomography images of the cervical spine without intravenous contrast. CTDI is 9.1 mGy and DLP is 274.4 mGy-cm. This CT exam was performed using one or more of the following dose reduction techniques: automated exposure control, adjustment of the mA and/or kV according to patient size, and/or use of iterative reconstruction technique. COMPARISON: No relevant prior studies available. FINDINGS: Vertebrae: No acute fracture. Discs/spinal canal/neural foramina: degenerative changes. Soft tissues: No prevertebral swelling. Paraseptal emphysema upper lungs. IMPRESSION: No acute fracture or subluxation.
[2024-04-12] MEDS: SODIUM CHLORIDE 0.9% 500 ML 500 ML IV STA (03:24)
[2024-04-12 03:34] LABS: ALT 12 U/L (4-49); AST 20 U/L (17-59); African American GFR (CKD) 77 (>60 ml/min/1.73 sqM); Albumin 3.6 g/dL (3.5-5.0); Alkaline Phosphatase 65 U/L (38-126); Blood Urea Nitrogen 15 mg/dL (9-20); Calcium 8.3 mg/dL (8.4-10.2); Chloride 91 mmol/L (98-107); Glucose 83 mg/dL (74-99); Non-African American GFR(CKD) 67 (>60 ml/min/1.73 sqM); Potassium 4.4 mmol/L (3.5-5.1); Sodium 133 mmol/L (137-145); Total Bilirubin 0.5 mg/dL (0.2-1.3); Total Protein 6.1 g/dL (6.3-8.2)
[2024-04-12 03:37] LABS: Basophils % (A) 1 %; Eosinophils # (A) 0.3 k/uL (0-0.7); Eosinophils % (A) 6 %; HCT 30.7 % (39.0-53.0); HGB 9.8 gm/dL (13.0-17.5); Hypochromasia Slight; Lymphocytes % (A) 17 %; MCH 27.3 pg (25.0-35.0); MCHC 31.9 g/dL (31.0-37.0); MCV 85.5 fL (80.0-100.0); Mean Platelet Volume 7.8; Monocytes # (A) 0.5 k/uL (0-1.0); Monocytes % (A) 8 %; Neutrophils # (A) 3.8 k/uL (1.3-7.7); Neutrophils % (A) 66 %; Partial Thromboplastin Time 22.3 sec (22.0-30.0); Platelet Count 233 k/uL (150-450); Prothrombin Time 10.8 sec (10.0-12.5); RDW 15.4 % (11.5-15.5); WBC 5.7 k/uL (3.8-10.6)
--- NOTE | 2024-04-12 03:37 | XR ---
EXAM: XR Left Wrist Complete, 3 Views CLINICAL HISTORY: Fall TECHNIQUE: Frontal, lateral and oblique views of the left wrist. COMPARISON: No relevant prior studies available. FINDINGS: Bones/joints: Comminuted fracture of distal radius, probably extending to articular surface, nondisplaced, minimally impacted posteriorly. Ulnar styloid fracture with 6 mm medial displacement. Osteopenia. No dislocation Soft tissues: Unremarkable. No radiopaque foreign body. IMPRESSION: 1. Comminuted fracture of distal radius, probably extending to articular surface, nondisplaced, minimally impacted posteriorly. 2. Ulnar styloid fracture with 6 mm medial displacement.
[2024-04-12 03:40] LABS: Anion Gap 3 mmol/L; Carbon Dioxide 39 mmol/L (22-30)
[2024-04-12 05:11] VITALS: BP 86/64; PULSE 80; RESP 20
[2024-04-12] MEDS: HYDROcodone/APAP 5-325MG 1 EACH TAB PO STA (05:45)
== END 2024-04-12 06:00 | disposition home or self-care (01) ==
LOC: EC 02:26
DX: S52.502A Unspecified fracture of the lower end of left radius, initial encounter for closed fracture (principal); F17.200 Nicotine dependence, unspecified, uncomplicated; Z88.8 Allergy status to other drugs, medicaments and biological substances; Z88.0 Allergy status to penicillin; Z88.5 Allergy status to narcotic agent; W01.0XXA Fall on same level from slipping, tripping and stumbling without subsequent striking against object, initial encounter; Y93.01 Activity, walking, marching and hiking
CPT/HCPCS: 29125; 36415; 70450; 72125; 80053; 84484; 85025; 85610; 85730; 93005; 96360; 99284

== ENCOUNTER 2024-09-09 17:51 | Observation (INO) | payer MEDICARE, OTHER ==
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
[2024-09-09 19:29] LABS: Basophils # (A) 0.07 10*3/uL (0.00-0.10); Basophils % (A) 1.4 %; Eosinophils # (A) 0.55 10*3/uL (0.04-0.35); HCT 26.4 % (39.6-50.0); HGB 8.7 g/dL (13.0-17.0); Lymphocytes # (A) 1.01 10*3/uL (0.90-5.00); Lymphocytes % (A) 20.2 %; Mean Platelet Volume 10.2 fL (9.5-12.2); Monocytes # (A) 0.64 10*3/uL (0.20-1.00); Monocytes % (A) 12.8 %; Neutrophils % (A) 54.2 %; Platelet Count 241 10*3/uL (140-440); RDW 15.6 % (11.5-14.5); WBC 4.99 10*3/uL (4.50-10.00)
[2024-09-09 19:41] LABS: ALT 14 U/L (4-49); AST 21 U/L (17-59); African American GFR (CKD) >90 (>60 ml/min/1.73 sqM); Albumin 3.2 g/dL (3.5-5.0); Alkaline Phosphatase 54 U/L (38-126); Anion Gap 3 mmol/L; Blood Urea Nitrogen 22 mg/dL (9-20); Calcium 8.8 mg/dL (8.4-10.2); Carbon Dioxide 35 mmol/L (22-30); Chloride 97 mmol/L (98-107); Glucose 84 mg/dL (74-99); Magnesium 1.9 mg/dL (1.6-2.3); Non-African American GFR(CKD) 85 (>60 ml/min/1.73 sqM); Potassium 3.9 mmol/L (3.5-5.1); Sodium 135 mmol/L (137-145); Total Bilirubin 0.3 mg/dL (0.2-1.3)
[2024-09-09 19:45] LABS: Prothrombin Time 10.9 sec (10.0-12.5)
[2024-09-09 19:46] LABS: Partial Thromboplastin Time 21.6 sec (22.0-30.0)
[2024-09-09 19:50] LABS: NT-Pro-B-Type Natriuretic Pept 688 pg/mL
--- NOTE | 2024-09-09 20:01 | XR ---
EXAMINATION TYPE: XR chest 2V DATE OF EXAM: 09/09/2024 7:15 PM COMPARISON: Chest radiographs from 07/09/2024. CLINICAL INDICATION: Male, 74 years old with history of Chest Pain; TECHNIQUE: XR chest 2V Frontal and lateral views of the chest. FINDINGS: Lungs/Pleura: There is no evidence of pleural effusion, focal consolidation, or pneumothorax. Pulmonary vascularity: Pulmonary vascular congestion. Heart/mediastinum: Cardiomediastinal silhouette is enlarged. Atherosclerotic calcifications are seen in the aorta. Musculoskeletal: No acute osseous pathology. Vertebroplasty cement in the spine noted. Other findings: None IMPRESSION: Cardiomegaly and mild pulmonary vascular congestion. Correlate with BNP for congestive heart failure. [facility], , 09/09/2024 7:58 PM
[2024-09-09] MEDS ORDERED: NALOXONE 0.4 MG/ML 1 ML VIAL IV PRN (22:46)
[2024-09-09] MEDS ORDERED: ACETAMINOPHEN TAB 325 MG TAB PO PRN (22:46)
[2024-09-09] MEDS: FUROSEMIDE 10 MG/ML 4 ML VIAL IV STA (23:25)
[2024-09-10 04:05] LABS: Basophils # (A) 0.06 10*3/uL (0.00-0.10); Basophils % (A) 1.4 %; Eosinophils # (A) 0.47 10*3/uL (0.04-0.35); HGB 9.1 g/dL (13.0-17.0); Lymphocytes # (A) 0.98 10*3/uL (0.90-5.00); Lymphocytes % (A) 22.9 %; MCH 28.9 pg (27.0-32.0); MCHC 32.5 g/dL (32.0-37.0); MCV 88.9 fL (80.0-97.0); Mean Platelet Volume 9.4 fL (9.5-12.2); Monocytes # (A) 0.65 10*3/uL (0.20-1.00); Monocytes % (A) 15.2 %; Neutrophils # (A) 2.11 10*3/uL (1.80-7.70); Neutrophils % (A) 49.3 %; Platelet Count 248 10*3/uL (140-440); RBC 3.15 10*6/uL (4.40-5.60); RDW 15.4 % (11.5-14.5); WBC 4.28 10*3/uL (4.50-10.00)
[2024-09-10 04:29] LABS: African American GFR (CKD) >90 (>60 ml/min/1.73 sqM); Anion Gap 0 mmol/L; Blood Urea Nitrogen 22 mg/dL (9-20); Calcium 8.9 mg/dL (8.4-10.2); Carbon Dioxide 40 mmol/L (22-30); Chloride 96 mmol/L (98-107); Glucose 89 mg/dL (74-99); Non-African American GFR(CKD) 80 (>60 ml/min/1.73 sqM); Potassium 3.6 mmol/L (3.5-5.1); Sodium 136 mmol/L (137-145)
[2024-09-10] MEDS ORDERED: DOBUTamine DRIP for NUC MED 500 MG in DEXTROSE/WATER 1 250ML.BAG IV PRN (09:30)
[2024-09-10] MEDS ORDERED: FLUTICASONE 110 MCG INHALER INHALATION PRN (10:14)
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
[2024-09-10] MEDS: SYMBICORT 160-4.5 MCG INHALER INHALATION SCH (11:31)
[2024-09-10] MEDS: METOPROLOL SUCCINATE (ER) 25 MG TAB.ER.24H PO SCH (12:02)
[2024-09-10] MEDS: FLUTICASONE NASAL 50MCG/SPRAY 16GM BTL EA NOSTRIL SCH (12:03)
[2024-09-10] MEDS: ACETAMINOPHEN TAB 325 MG TAB PO PRN (12:07)
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
--- NOTE | 2024-09-10 12:56 | CA ---
Dobutamine Stress Echocardiogram Report Adam Olivo Age: 74 Gender: M : 1950 Exam Date: 09/10/2024 11:04 Exam Location: [facility] Ordering Physician: Beulah Kaplan Referring Physician: [id number] Conductor: Tiffanie Grubbs RDCS Technologist: Ht (in): 71 Wt (lb): 160 Procedure CPT: Indication: CP ICD-9 Codes: Rhythm: Patient History: Chest pain, hypertension and hyperlipidemia. Cardiac Medications: Medications in past 24 hours: Contrast: Definity Total Dose (mL): 2 Stress Results Protocol: Dobutamine Peak Dose (???g/kg/min): 40 Duration (min:sec): Atropine:(mg) Target HR: 125 Double Product: [id number] Resting HR: 62 Resting BP: 123 / 80 Peak HR: 134 Peak BP: 133 / 61 Max Predicted HR: 147 91 % Max Predicted HR Stress Summary: BP Response: Reason for Termination: Exceeded target heart rate (85% max predicted) Cardiac Symptoms: Dyspnea ECG Analysis Resting EKG: Stress EKG: Arrhythmia: Echo Analysis Base Echo Analysis: Low Echo Anaylsis: Peak Echo Analysis: Recovery Echo: MEASUREMENTS (Male/Female) Normal Values CONCLUSIONS Normal electrocardiogram and echocardiogram in response to dobutamine Normal dobutamine stress echocardiogram Dr. Yves Silva MD (Electronically Signed) Final Date: 10 September 2024 12:55
--- NOTE | 2024-09-10 12:57 | CA ---
Transthoracic Echo Report Name: Adam Olivo Age: 74 Gender: M : 1950 Exam Date: 09/10/2024 10:12 Exam Location: [facility] Ht (in): 72 Wt (lb): 160 Ordering Physician: Beulah Kaplan Attending/Referring Phys: [id number], Rosaura Sales Representative Health Insurance Tiffanie Grubbs, BRYANNA Procedure CPT: Indications: CP, LV function Cardiac Hx: Technical Quality: Fair Contrast 1: Total Dose (mL): Contrast 2: Total Dose (mL): MEASUREMENTS (Male / Female) Normal Values 2D ECHO LV Diastolic Diameter PLAX 6.0 cm 4.2 - 5.9 / 3.9 - 5.3 cm LV Systolic Diameter PLAX 4.3 cm IVS Diastolic Thickness 1.0 cm 0.6 - 1.0 / 0.6 - 0.9 cm LVPW Diastolic Thickness 1.2 cm 0.6 - 1.0 / 0.6 - 0.9 cm LV Relative Wall Thickness 0.4 RV Internal Dim ED PLAX 2.9 cm LA Systolic Diameter LX 5.3 cm 3.0 - 4.0 / 2.7 - 3.8 cm LV Diastolic Volume MOD BP 88.8 cm??? 67 - 155 / 56 - 104 cm??? LV Systolic Volume MOD BP 49.8 cm??? - 58 / 19 - 49 cm??? LV Ejection Fraction MOD BP 43.9 % >= 55 % LV Cardiac Index MOD BP 977.6 cm???/min???m??? LV Diastolic Volume MOD 4C 104.9 cm??? LV Systolic Volume MOD 4C 50.1 cm??? LV Ejection Fraction MOD 4C 52.3 % LV Cardiac Index MOD 4C 1373.9 cm???/min???m??? LV Diastolic Length 4C 7.7 cm LV Systolic Length 4C 7.0 cm LV Diastolic Volume MOD 2C 75.2 cm??? LV Systolic Volume MOD 2C 50.6 cm??? LV Ejection Fraction MOD 2C 32.6 % LV Cardiac Index MOD 2C 614.4 cm???/min???m??? LV Diastolic Length 2C 7.7 cm LV Systolic Length 2C 7.0 cm LA Volume 100.3 cm??? 18 - 58 / 22 - 52 cm??? LA Volume Index 52.4 cm???/m??? 16 - 28 cm???/m??? M-MODE Aortic Root Diameter MM 3.6 cm LA Systolic Diameter MM 5.0 cm LA Ao Ratio MM 1.4 AV Cusp Separation MM 2.3 cm DOPPLER MV Area PHT 3.0 cm??? Mitral E Point Velocity 82.0 cm/s Mitral A Point Velocity 73.4 cm/s Mitral E to A Ratio 1.1 MV Deceleration Time 252.8 ms FINDINGS Left Ventricle Left ventricular ejection fraction is estimated at 45-50%. Mildly increased left ventricular diastolic diameter. Mildly decreased left ventricular ejection fraction. Hypokinetic posterior wall. Right Ventricle Normal right ventricular size and function. Unable to estimate the right ventricular systolic pressure. Right Atrium Mild right atrial dilatation. Left Atrium Mildly increased left atrial area. Mitral Valve Mitral valve thickened. Mitral annular calcification. Trace to mild mitral regurgitation. Aortic Valve Trileaflet aortic valve. Diffuse thickening (sclerosis) of the aortic valve cusps without reduced excursion. No aortic stenosis. Tricuspid Valve Structurally normal tricuspid valve. Trace tricuspid regurgitation. No tricuspid stenosis. Pulmonic Valve Structurally normal pulmonic valve. Trace pulmonic regurgitation. No pulmonic stenosis. Pericardium No pericardial or pleural effusion. Aorta Aorta at upper limits of normal. CONCLUSIONS Mildly impaired LV function with EF between 45 to 50% Previewed by: Dr. Yves Silva MD (Electronically Signed) Final Date: 10 September 2024 12:56
[2024-09-10] MEDS: PANTOPRAZOLE 40 MG TABLET PO SCH (17:34)
[2024-09-10] MEDS: IPRATROPIUM-ALBUTEROL 3 ML NEB INHALATION PRN (18:43)
[2024-09-10] MEDS: DOCUSATE 100 MG CAP PO SCH (20:03)
[2024-09-10] MEDS: guaiFENesin-DM 600/30MG 1 EACH TAB.ER.12H PO SCH (20:03)
[2024-09-10] MEDS: ATORVASTATIN 20 MG TAB PO SCH (20:03)
[2024-09-10] MEDS: TAMSULOSIN 0.4 MG CAP.ER.24H PO SCH (20:03)
[2024-09-10] MEDS: ASPIRIN 81 MG PO SCH (20:04)
[2024-09-10] MEDS ORDERED: TAMSULOSIN 0.4 MG CAP.ER.24H PO SCH (21:00)
[2024-09-11 07:20] VITALS: BP 106/61; RESP 18; TEMP 97.9
[2024-09-11 08:13] LABS: Basophils # (A) 0.06 X 10*3/uL (0.00-0.10); Basophils % (A) 1.4 %; Eosinophils # (A) 0.47 X 10*3/uL (0.04-0.35); Eosinophils % (A) 10.9 %; HCT 28.2 % (39.6-50.0); Lymphocytes # (A) 1.07 X 10*3/uL (0.90-5.00); Lymphocytes % (A) 24.7 %; MCH 28.8 pg (27.0-32.0); MCHC 31.9 g/dL (32.0-37.0); MCV 90.4 FL (80.0-97.0); Mean Platelet Volume 10.3 FL (9.5-12.2); Monocytes # (A) 0.65 X 10*3/uL (0.20-1.00); NRBC Per 100 WBC 0 X 10*3/uL (0.00-0.01); Neutrophils # (A) 2.07 X 10*3/uL (1.80-7.70); Neutrophils % (A) 47.8 %; Platelet Count 260 X 10*3/uL (140-440); RBC 3.12 X 10*6/uL (4.40-5.60); RDW 15.1 % (11.5-14.5); WBC 4.33 X 10*3/uL (4.50-10.00)
[2024-09-11 08:43] LABS: ALT 12 U/L (10-49); AST 17 U/L (14-35); Albumin 3.1 g/dL (3.8-4.9); Albumin/Globulin Ratio 1.35 Ratio (1.60-3.17); Alkaline Phosphatase 59 U/L (41-126); BUN/Creat Ratio 22.22 Ratio (12.00-20.00); Calcium 8.6 mg/dL (8.7-10.3); Carbon Dioxide 31.8 mmol/L (21.6-31.8); Chloride 101 mmol/L (96-109); Globulin 2.3 g/dL (1.6-3.3); Glucose 98 mg/dL (70-110); Potassium 4.2 mmol/L (3.5-5.5); Sodium 139 mmol/L (135-145); Total Bilirubin 0.3 mg/dL (0.3-1.2); Total Protein 5.4 g/dL (6.2-8.2)
[2024-09-11 09:17] VITALS: PULSE 64
[2024-09-11] MEDS: LOSARTAN 25 MG TAB PO SCH (09:17)
[2024-09-11] MEDS: ESCITALOPRAM 10 MG TAB PO SCH (09:22)
[2024-09-11] MEDS: DAPAGLIFLOZIN PROPANEDIOL 5 MG TABLET PO SCH (09:22)
[2024-09-11] MEDS: FUROSEMIDE 40 MG TAB PO SCH (09:22)
[2024-09-11] MEDS: NICOTINE 7MG/24HR PATCH TRANSDERM SCH (09:22)
[2024-09-11] MEDS: METOPROLOL SUCCINATE (ER) 25 MG TAB.ER.24H PO SCH (09:22)
[2024-09-11] MEDS: FERROUS SULFATE 325 MG TAB PO SCH (09:22)
[2024-09-11] MEDS: ENOXAPARIN 40 MG/0.4 ML SYRINGE SQ SCH (09:23)
--- NOTE | 2024-09-11 09:36 | P.DS ---
Providers Date of admission: 09/09/24 22:47 Expected date of discharge: 09/11/24 Attending physician: Bryce Lopez Consults: 09/09/24 22:46 Consult Physician Urgent Consulting Provider: [facility] Consult Reason/Comments: acute chest pain, possible acs Do you want consulting provider notified?: Yes Primary care physician: Bryce Lopez Hospital Course: HISTORY OF PRESENT ILLNESS: This is a 74-year-old male with a previous medical history significant for chronic tobacco use and dependence with chronic obstructive pulmonary disease moderate to severe currently on 4 L nasal cannula with chronic respiratory failure, history of coronary artery disease with minimal disease status post left heart catheterization was done February 2017 has been under the care of Dr. Jack, was recently started on atorvastatin 20 mg once every day after he was seen in the office about a week ago, history of hypertension and hypertensive cardiovascular disease, hyperlipidemia, history of peripheral vascular occlusive disease, history of chronic alcohol use and dependence. Patient currently resides at [facility] in [facility], he was sitting up in the hallway talking with friends yesterday all of a sudden developed to have a significant left-sided chest pain associated with minimal palpitation and minimal shortness of breath, he was not having any coughing or any pleurisy at this time, his pain went up to the left shoulder down to the left left arm, patient was sent to the ER for evaluation after he did receive 1 nitroglycerin in the snf, and he felt better after that, his twelve-lead EKG showed evidence of normal sinus rhythm and sinus bradycardia without evidence of any acute ST-T wave changes, cardiac enzymes were negative but because of the prese ntation and because of the underlying risk factors, and the minimal CAD back in 2016 he was admitted to the hospital for evaluation by cardiology, patient is scheduled to go for echocardiogram as well as dobutamine stress echo for evaluation of his stress-induced ischemia. 09/11: Patient underwent echocardiogram yesterday that showed evidence of ejection fraction of 45 to 50% with mildly reduced LV function, could not estimate the right ventricular pressure, mild dilatation of the left atrium and right atrium, there is a mild mitral regurgitation tricuspid regurgitation aortic sclerosis without stenosis, patient also underwent dobutamine stress echo that was negative for stress-induced ischemia, I started the patient on Farxiga 5 mg once every day as well as losartan 12.5 mg once every day, continue patient on metoprolol 12.5 mg orally once every day and Lasix 40 mg once every day, patient will be evaluated by physical therapy and Occupational Therapy, he will be cleared to be discharged to [facility] on the [place] later on today. Discharge diagnoses: 1. Chest pain patient likely noncardiac with negative dobutamine stress echo. 2. Mild LV dysfunction due to hypertensive cardiovascular disease 3. Hypertension and hypertensive cardiovascular disease. 4. Mixed hyperlipidemia. Continue patient on atorvastatin 20 mg once every day, monitor lipid panel, keep LDL 55-70. 5. Moderate COPD on chronic oxygen 4 L nasal cannula, continue current oxygen, 6. Chronic systolic heart failure. 7. Enlarged prostate. 8. Anxiety and major depressive disorder. 9. Peripheral vascular occlusive disease. 10. History of throat cancer status post radiation therapy. Patient Condition at Discharge: Stable Plan - Discharge Summary New Discharge Prescriptions: No Action Metoprolol Succinate (ER) [Toprol XL] 12.5 mg PO DAILY #30 tab Docusate [Colace] 100 mg PO HS cap Ferrous Sulfate [Iron (65 MG Elemental)] 325 mg PO DAILY tab Acetaminophen Tab [Tylenol] 650 mg PO Q6HR PRN tab PRN Reason: Mild Pain Or Fever > 100.5 Atorvastatin [Lipitor] 20 mg PO HS guaiFENesin-DM 600/30MG [Mucinex Dm] 1 tab PO Q12HR Albuterol Sulfate/Budesonide [Airsupra 90-80 Mcg Inhaler] 2 puff INHALATION RT-Q6H PRN PRN Reason: Shortness Of Breath Furosemide [Lasix] 40 mg PO DAILY tab Aspirin EC [Ecotrin Low Dose] 81 mg PO BID Escitalopram [Lexapro] 10 mg PO DAILY tab Fluticasone Nasal [place] [Flonase Nasal [place]] 2 spray EA NOSTRIL DAILY ml Ipratropium-Albuterol Nebulize [Duoneb 0.5 mg-3 mg/3 ml Soln] 3 ml INHALATION QID #120 ml Ipratropium-Albuterol Nebulize [Duoneb 0.5 mg-3 mg/3 ml Soln] 3 ml INHALATION Q4H PRN #90 ml PRN Reason: Shortness Of Breath Budesonide-Formot 160-4.5 Mcg [Symbicort 160-4.5 Mcg Inhaler] 2 puff INHALATION RT-BID each Tamsulosin [Flomax] 0.4 mg PO BID Pantoprazole [Protonix] 40 mg PO BID Nicotine 7Mg/24Hr Patch [Habitrol] 1 patch TRANSDERM DAILY Discharge Medication List Metoprolol Succinate (ER) [Toprol XL] 12.5 mg PO DAILY #30 tab 04/16/22 [Rx] Furosemide [Lasix] 40 mg PO DAILY tab 06/07/23 [Rx] Aspirin EC [Ecotrin Low Dose] 81 mg PO BID 08/21/23 [History] Escitalopram [Lexapro] 10 mg PO DAILY tab 09/09/23 [Rx] Acetaminophen Tab [Tylenol] 650 mg PO Q6HR PRN tab 07/15/24 [Rx] Budesonide-Formot 160-4.5 Mcg [Symbicort 160-4.5 Mcg Inhaler] 2 puff INHALATION RT-BID each 07/15/24 [Rx] Docusate [Colace] 100 mg PO HS cap 07/15/24 [Rx] Ferrous Sulfate [Iron (65 MG Elemental)] 325 mg PO DAILY tab 07/15/24 [Rx] Fluticasone Nasal [place] [Flonase Nasal [place]] 2 spray EA NOSTRIL DAILY ml 07/15/24 [Rx] Ipratropium-Albuterol Nebulize [Duoneb 0.5 mg-3 mg/3 ml Soln] 3 ml INHALATION Q4H PRN #90 ml 07/15/24 [Rx] Ipratropium-Albuterol Nebulize [Duoneb 0.5 mg-3 mg/3 ml Soln] 3 ml INHALATION QID #120 ml 07/15/24 [Rx] Albuterol Sulfate/Budesonide [Airsupra 90-80 Mcg Inhaler] 2 puff INHALATION RT- Q6H PRN 09/10/24 [History] Atorvastatin [Lipitor] 20 mg PO HS 09/10/24 [History] Nicotine 7Mg/24Hr Patch [Habitrol] 1 patch TRANSDERM DAILY 09/10/24 [History] Pantoprazole [Protonix] 40 mg PO BID 09/10/24 [History] Tamsulosin [Flomax] 0.4 mg PO BID 09/10/24 [History] guaiFENesin-DM 600/30MG [Mucinex Dm] 1 tab PO Q12HR 09/10/24 [History] Follow up Appointment(s)/Referral(s): Bryce Lopez MD [Primary Care Provider] - 1-2 days
--- NOTE | 2024-09-11 11:37 | P.PN ---
Subjective HISTORY OF PRESENT ILLNESS: This is a 74-year-old male with a past medical history significant for minimal CAD, peripheral vascular disease, hypertension, hyperlipidemia, COPD, and nicotine dependence patient follows in the office with Dr. Jack. We have been asked to see the patient in consultation for chest pain. Patient examined at the bedside. Patient states yesterday he was having chest discomfort in the middle of his chest. He states it felt like somebody punched him in his chest. He states the pain only lasted for a few seconds but had about 10 episodes total within a 15-minute period. He states he also had discomfort that went into his left arm. At the time of examination he denies any chest pain or pressure. DIAGNOSTICS: - EKG reveals sinus bradycardia with no signs of acute ischemia. - Chest xray cardiomegaly mild pulmonary vascular congestion. - Laboratory data: WBC 4.28. Hemoglobin 9.1. Platelet count 248. Sodium 136. Potassium 3.6. BUN 22. Creatinine 0.95. Troponin negative x 3. proBNP 688. - Current home cardiac medication list not updated at the time of dictation - Most recent echocardiogram obtained in May 2023 revealed normal EF, mild TR, mild pulmonary hypertension, mild MR - Cardiac catheterization history: February 2017 revealing minimal CAD 09/11/2024 Patient examined this morning the bedside. Patient underwent dobutamine stress echo yesterday which was negative for ischemia. Patient denies any further episodes of chest pain or pressure. He denies shortness of breath. Vital signs are stable. PHYSICAL EXAM: VITAL SIGNS: Reviewed. GENERAL: Well-developed in no acute distress. HEENT: Head is normocephalic. Pupils are equal, round. Sclerae anicteric. Mucous membranes of the mouth are moist. Neck supple. No JVD or thyromegaly LUNGS: Respirations even and unlabored. Lungs essentially clear to auscultation bilaterally. HEART: Regular rate and rhythm. S1 and S2 heard. Systolic murmur noted. ABDOMEN: Soft. Nondistended. Nontender. EXTREMITIES: Normal range of motion. No clubbing or cyanosis. Peripheral pulses intact. No lower extremity edema NEUROLOGIC: Awake and alert. Oriented x 3. ASSESSMENT: Chest pain Minimal CAD per cath 02/2017 Peripheral vascular disease COPD Hypertension Hyperlipidemia Nicotine dependence with recent cessation PLAN: Continue current cardiac medications Patient may be discharged home today from a cardiac standpoint Nurse practitioner note has been reviewed by physician. Signing provider agrees with the documented findings, assessment, and plan of care documented by [employer] as a scribe. Objective - Vital Signs Vital signs: Vital Signs Temp 97.9 F 09/11/24 06:59 Pulse 64 09/11/24 09:17 Resp 18 09/11/24 06:59 BP 106/61 09/11/24 06:59 Pulse Ox 89 L 09/11/24 08:51 FiO2 Intake & Output 09/10/24 09/11/24 09/11/24 18:59 06:59 18:59 Output Total 450 2100 Balance -450 -2100 Output: Urine 450 2100 Other: Voiding Method Urinal Urinal Urinal - Labs CBC & Chem 7: 09/11/24 04:48 09/11/24 04:48 Labs: Abnormal Lab Results - Last 24 Hours (Table) 09/11/24 09/11/24 Range/Units 04:48 04:48 WBC 4.33 L (4.50-10.00) X 10*3/uL RBC 3.12 L (4.40-5.60) X 10*6/uL Hgb 9.0 L (13.0-17.0) g/dL Hct 28.2 L (39.6-50.0) % MCHC 31.9 L (32.0-37.0) g/dL RDW 15.1 H (11.5-14.5) % Eosinophils # 0.47 H (0.04-0.35) X 10*3/uL BUN/Creatinine Ratio 22.22 H (12.00-20.00) Ratio Calcium 8.6 L (8.7-10.3) mg/dL Total Protein 5.4 L (6.2-8.2) g/dL Albumin 3.1 L (3.8-4.9) g/dL Albumin/Globulin Ratio 1.35 L (1.60-3.17) Ratio
== END 2024-09-11 12:20 ==
LOC: EC 17:51 → 6NMEDSUR 22:47
PROVIDERS: ADMIT Internal Medicine; ATTEND Internal Medicine
DX: R07.2 Precordial pain (principal); I11.0 Hypertensive heart disease with heart failure; I50.42 Chronic combined systolic (congestive) and diastolic (congestive) heart failure; I25.10 Atherosclerotic heart disease of native coronary artery without angina pectoris; J44.9 Chronic obstructive pulmonary disease, unspecified; K21.9 Gastro-esophageal reflux disease without esophagitis; E78.2 Mixed hyperlipidemia; J96.11 Chronic respiratory failure with hypoxia; J96.12 Chronic respiratory failure with hypercapnia; E11.51 Type 2 diabetes mellitus with diabetic peripheral angiopathy without gangrene; N40.0 Benign prostatic hyperplasia without lower urinary tract symptoms; M19.90 Unspecified osteoarthritis, unspecified site; F41.9 Anxiety disorder, unspecified; F32.9 Major depressive disorder, single episode, unspecified; F17.200 Nicotine dependence, unspecified, uncomplicated; Z85.21 Personal history of malignant neoplasm of larynx; Z86.718 Personal history of other venous thrombosis and embolism; Z92.3 Personal history of irradiation; Z99.81 Dependence on supplemental oxygen; Z79.51 Long term (current) use of inhaled steroids; Z79.82 Long term (current) use of aspirin; Z79.899 Other long term (current) drug therapy; Z88.0 Allergy status to penicillin; Z88.5 Allergy status to narcotic agent
CPT/HCPCS: 96372; 96374; 99285; 36415; 94640 ×3; 94760 ×2; 93005; 93306; 97161; 97165; 83880; 80053 ×2; 80048; 83735; 84484 ×2; 85025 ×3; 85610; 85730; 71046; G0378 ×3; C8930; S4990; J1940; J1650; Q9957; 93351

== ENCOUNTER 2024-10-09 11:19 | Day surgery (SDC) | payer MEDICARE, OTHER ==
[2024-10-09 12:12] VITALS: TEMP 97.1
[2024-10-09] MEDS: IV FLUID CONTINUATION 1,000 ML IV ONE (12:13)
[2024-10-09] MEDS: LACTATED RINGERS 1,000 ML IV SCH (12:13)
[2024-10-09] MEDS ORDERED: LIDOCAINE 1% INJ 10MG/ML (20 ML MDV) ONE (12:58)
[2024-10-09] MEDS ORDERED: PROPOFOL 10 MG/ML 20 ML VIAL IV ONE (12:58)
[2024-10-09] MEDS ORDERED: PHENYLEPHRINE-0.9% NACL SYG 1,000 MCG/10 ML SYRINGE ONE (12:58)
--- NOTE | 2024-10-09 13:12 | P.PCN ---
Date of Procedure: 10/09/24 Procedure(s) Performed: BRIEF HISTORY: Patient is a 74-year-old, pleasant, white male scheduled for an upper endoscopy as a part of evaluation of lungs and history of GERD. Last EGD was done in February 2024 and was noted to have a 2 cm ulceration in the distal esophagus as well as long segment Sal's esophagus.. PROCEDURE PERFORMED: Esophagogastroduodenoscopy with biopsy. PREOPERATIVE DIAGNOSIS: Severe reflux esophagitis on EGD in February 2024/Sal's esophagus. IV sedation per anesthesia. PROCEDURE: After informed consent was obtained, the patient was brought into the endoscopy unit. IV sedation was administered by Anesthesia under continuous monitoring. Initially the Olympus GIF-140 video endoscope was inserted into the mouth. Esophagus intubated without any difficulty. It was gradually advanced into the stomach and duodenum and carefully examined. The bulb and the second part of the duodenum appeared normal. The scope at this time was withdrawn to the stomach, adequately insufflated with air, and upon careful examination, mucosa of the antrum, appeared normal. In the proximal body by the diaphragmatic hiatus there was a 5 mm ulceration identified. Rest of the body, cardia and the fundus appeared normal. The scope was then withdrawn into the esophagus. Large hiatal hernia noted. The GE junction was located at 36 cm from the incisors. There was a long segment of Sal's esophagus extending from 33-36 and images to the incisors and multiple biopsies were done from this area. The previously noted distal esophageal ulcer has completely healed. The rest of the esophagus appeared normal. There were no erosions or ulcerations seen and the patient tolerated the procedure well. IMPRESSION: 1. Previously noticed distal esophageal ulcer has healed. 2. Large hiatal hernia 3. 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 5 mm ulcer in the proximal gastric body. RECOMMENDATIONS: The findings of this examination were discussed with the patient as well as his family. He was advised to follow-up with the biopsy results. If the biopsy confirms the presence of Sal's esophagus he can have repeat upper endoscopy in 3 years continue with Protonix 40 mg daily and follow antireflux measures..
[2024-10-09 13:22] VITALS: RESP 16
[2024-10-09 13:41] VITALS: BP 105/64; PULSE 56
== END 2024-10-09 14:04 ==
LOC: ORWHC2ENDO 11:19
PROVIDERS: ATTEND Internal Medicine Gastroenterology
DX: K21.00 Gastro-esophageal reflux disease with esophagitis, without bleeding (principal); K22.10 Ulcer of esophagus without bleeding; K44.9 Diaphragmatic hernia without obstruction or gangrene; I25.10 Atherosclerotic heart disease of native coronary artery without angina pectoris; J44.9 Chronic obstructive pulmonary disease, unspecified; I73.9 Peripheral vascular disease, unspecified; I10 Essential (primary) hypertension; E78.5 Hyperlipidemia, unspecified; Z98.890 Other specified postprocedural states; Z88.0 Allergy status to penicillin; Z88.5 Allergy status to narcotic agent; Z79.02 Long term (current) use of antithrombotics/antiplatelets; Z79.899 Other long term (current) drug therapy
CPT/HCPCS: 88305; 43239; J2003; J2704; J2371